=== PATIENT | female | born 1945 | race Caucasian/White ===

== ENCOUNTER 2023-05-10 09:51 | Outpatient (OUT) | payer OTHER, MEDICARE, SELFPAY ==
--- NOTE | 2023-05-10 09:52 | MM_ITS ---
Patient: ROMULO PETE Exam Date: 05/10/2023 : 1945 Gender:F Ordering : MRS. ERICK RAGLAND Admission #: [id number] Family : DR. TITUS JACKSON M.D. Order #: [id number] CLICK HERE TO VIEW EXAM RADIOLOGY REPORT PROCEDURE: MM TOMOSYNTHESIS SCREENING BI COMPARISON: MG MAMM SCREEN 3D LISA CAD, 02/23/2022. MG MAMM SCREEN 3D LISA CAD, 11/04/2020. MG MAMM SCREEN LISA W CAD, 10/10/2018. MG MAMM LISA SCRN W CAD DIG, 03/12/2014. INDICATIONS: Screening Calculator Name NCI Breast Cancer Risk Assessment Tool 5 Year Breast Cancer Risk 1.60% Lifetime Breast Cancer Risk 3.20% Personal Breast Cancer No Personal Ovarian Cancer No Treatments None Family Cancers Aunt-paternal with breast cancer at age ~70. LOCATION: [facility] BREAST COMPOSITION: Scattered areas fibroglandular density. FINDINGS: DIAGNOSTIC CATEGORY 2--BENIGN FINDING: RIGHT BREAST: No significant suspicious finding. Scattered benign-appearing calcifications are present. No significant change has occurred. LEFT BREAST: No significant suspicious finding. Scattered benign-appearing calcifications are present. No significant change has occurred. RECOMMENDATIONS: ROUTINE MAMMOGRAM AND CLINICAL EVALUATION IN 12 MONTHS. PLEASE NOTE: A NORMAL MAMMOGRAM DOES NOT EXCLUDE THE POSSIBILITY OF BREAST CANCER. A CLINICALLY SUSPICIOUS PALPABLE LUMP SHOULD BE BIOPSIED. Dictated by: Allen Collins M.D. on 05/14/2023 at 13:07 Approved by: Allen Collins M.D. on 05/14/2023 at 13:12
== END 2023-05-10 09:52 | disposition home or self-care (01) ==
LOC: MAMMO 09:51
PROVIDERS: PCP Student in an Organized Health Care Education/Training Program; Visit Provider Physician Assistant
DX: Z12.31 Encounter for screening mammogram for malignant neoplasm of breast (principal); Z80.3 Family history of malignant neoplasm of breast
CPT/HCPCS: 77063; 77067

== ENCOUNTER 2024-01-19 11:24 | Outpatient (OUT) | payer OTHER, MEDICARE, SELFPAY ==
--- OUTSIDE RECORDS SUMMARY | 2024-01-19 11:29 | XMS_ITS | CCD ---
Author Organization [facility] Care Team Providers Care Electroencephalographic Technologist Name Role Phone OLIVAS, WAYNE P Unavailable Unavailable MARILU JACOBSON Unavailable Unavailable OLIVAS, WAYNE P Unavailable Unavailable OLIVAS, WAYNE P Unavailable Unavailable PHYSICIAN, DEFAULT Unavailable Unavailable PHYSICIAN, DEFAULT Unavailable Unavailable Vicky Titus Unavailable João Soto Unavailable AISHA RAGLAND Attending Unavailable AISHA RAGLAND Consulting Unavailable AISHA RAGLAND Admitting Unavailable TITUS HANNAH Primary Care Unavailable AISHA RAGLAND Admitting Unavailable AISHA RAGLAND Attending Unavailable TITUS HANNAH Primary Care Unavailable DR ELIZ HUANG V Consulting Unavailable AISHA RAGLAND Consulting Unavailable ISELA Ragland Primary Care Provider DO João Soto Attending Provider [phone] Lisa Castillo Unavailable ISELA Ralgand Primary Care Provider GERARDO Hdz Emergency Provider Aisha Ragland Primary Care Unavailable João Soto Admitting Unavailable João Soto Attending Unavailable Aisha Ragland Primary Care Unavailable Bhaskar Hdz Admitting Unavailable Bhaskar Hdz Attending Unavailable Zuri Hannah MD Unavailable Zuri Hannah MD Primary Care Provider Aisha RAGLAND Primary Care Physician Kaci Morton Admitting Unavailable Kaci Morton Attending Unavailable Dillon Hurtado Attending Unavailable Aisha RAGLAND Referring Unavailable ISELA Morton Admitting UnavailKaci Welch Attending Unavailable AISHA RAGLAND Attending Unavailable TABITHA MAJANO Attending UnavailTABITHA Castillo Attending Unavailabl e AISHA RAGLAND Attending Unavailable TABITHA MAJANO Attending UnavailZURI Kyle Referring Unavailable AISHA RAGLAND Attending Unavailable AISHA RAGLAND Attending Unavailable Allergies Allergy Classification Reported Allergen(s) Allergy Type Date of Onset Reaction(s) Facility (1 source) Bee; Translations: [BEES] Propensity to adverse reactions (disorder) 6 [facility] Repository (5 sources) tioconazole; Translations: [TIOCONAZOLE] Drug Allergy 6 [facility], Itching, Itching, rash [facility] Repository (15 sources) Bee/Wasp/Ant venom; Translations: [Bee Stings] Propensity to adverse reactions anaphylaxis, Unknown (qualifier value) [facility] (11 sources) Miconazole Drug Allergy rash [facility] Other (20 sources) traMADol; Translations: [tramadol] Drug Allergy 1 Unknown, Unknown (qualifier value) [facility] (1 source) Bee pollen Drug allergy (disorder) 3 [facility] Repository (1 source) Miconazole Drug Allergy 3 [facility] Repository (4 sources) venom-honey bee; Translations: [venom-honey bee] Allergy to substance 1 Fainting [facility] (1 source) traMADol Drug Allergy 3 [facility] Repository (2 sources) bee venom protein (honey bee) Drug allergy (disorder) 3 anaphylaxis [facility] Repository (2 sources) Bee pollen Allergy to substance 3 Unknown [facility] Work Phone: (2 sources) Honey bee venom Allergy to substance 3 Shortness of breath [facility] (5 sources) Miconazole; Translations: [miconazole topical] Drug Allergy 3 Unknown, Unknown (qualifier value) [facility] (3 sources) Latex; Translations: [Latex] Drug allergy Other (qualifier value) [facility] (1 source) Miconazole; Translations: [Miconazole Nitrate] Drug Allergy [facility] Repository Medications Current Medications Medication Drug Class(es) Dates Sig (Normalized) Sig (Original) acetaminophen 325 mg / HYDROcodone bitartrate 5 mg oral tablet (17 sources) Opioid Agonist Start: 07-10-2023 End: 08-23-2023 Hydrocodone-Acetam inophen Active TAB TABLET July 15, 2023 1:00am Start: 06-29-2021 take 1 tablet by giuseppe th every six hours HYDROcodone-Acetaminophen 5-325 MG 1 tab let as needed Orally every 6 hrs for 7 days Jun, Active Start: 06-29-2021 take 1 tablet by giuseppe th every six hours Start: 04-28-2019 End: 05-20-2019 take 1 tablet by mouth every four hours Hydrocodone-Acetaminophen Discontinued 1 - 2 TAB PO Q4H 0 April 28, 2019 May 20, 2019 9:50am alendronic acid 35 mg oral tablet (8 sources) Bisphosphonate Start: 03-27-2023 alendronate (F osamax) 35 MG tablet Indications: Chronic pain disorder Take 1 tablet (35 mg) by mouth every 7 (seven) days. Patient taking 1/2 tablet once per week 12 tablet 11 03/27/2023 Active Start: 06-18-2020 take 1 tablet by giuseppe th once daily alendronate 35 mg oral tablet 35 mg = 1 tab(s), Oral, Daily, Refills(s) 0 Start Date: 06/18/20 Status: Ordered Start: 05-31-2020 End: 07-15-2023 take 17.5 mg by mouth every week Alendronate Discontinued 17.5 MG PO every week May 31, 2020 1:00am July 15, 2023 4:00pm aspirin 81 mg chewable tablet (15 sources) Platelet Aggregation Inhibitor, Nonsteroidal Anti-inflammatory Drug Start: 06-18-2020 aspirin 81 mg Key w Tab 81 mg = 1 tab(s), Chewed, Daily, Refills(s) 0 Start Date: 06/18/20 Status: Ordered Start: 04-28-2019 End: 05-20-2019 take 325 mg by mouth twice daily Aspirin Discontinued 325 MG PO Twice daily 0 April 28, 2019 12:00am May 20, 2019 9:50am take 1 tablet by giuseppe th every twenty-four hours Aspirin 81 81 MG 1 tablet Orally Once a day Active take 1 tablet by giuseppe th once daily Aspirin 81 81 MG 1 tablet Orally Once a day Active take 1 tablet by giuseppe th once daily Aspirin 81 81 MG 1 tablet Orally Once a day Active atenolol 50 mg oral tablet (20 sources) beta-Adrenergic Panchito Start: 06-18-2020 take 1 tablet by mouth once daily atenolol 50 mg Tab 50 mg = 1 tab(s), Oral, Daily, Refills(s) 0 Start Date: 06/18/20 Status: Ordered Start: 04-05-2020 take 25 mg by mouth once daily Atenolol Active 25 MG PO Daily April 05, 2020 12:00am Start: 04-24-2019 End: 05-20-2019 take 25 mg by mouth once daily Atenolol Discontinued 2 5 MG PO Daily April 24, 2019 12:00am May 20, 2019 9:50am atenolol (Tenorm in) 50 MG tablet Take 12.5 mg by mouth in the morning. 0 Active take 0.5 tablet by m out once daily Atenolol 25 MG 1/2 tablet Orally Once a day for 30 day(s) Active benzonatate 200 mg oral capsule (3 sources) Non-narcotic Antitussive Start: 06-18-2020 take 200 mg by mouth three times daily Benzonatate Active 200 MG PO Three times daily July 15, 2023 1:00am Blood Glucose Monitoring Suppl (ONE TOUCH ULTRA 2) w/Device kit (2 sources) Start: 04-26-2022 Blood Glucose Monitoring Suppl (ONE TOUCH ULTRA 2) w/Device kit calcium carbonate 600 mg chewable tablet (5 sources) Start: 06-18-2020 take 1 tablet by mouth once daily calcium carbonate 600 mg oral tablet, chewable 600 mg = 1 tab(s), Chewed, Daily, Refills(s) 0 Start Date: 06/18/20 Status: Ordered End: 08-14-2023 calcium carbonate 1500 (600 Ca) MG tablet 2 (two) times a day with meals. 0 08/14/2023 Discontinued calcium carbonate 1250 mg / cholecalciferol 200 unt oral tablet (7 sources) Vitamin D Start: 04-05-2020 take 1 tablet by mouth twice daily Calcium Carbonate-Vitamin D3 (Oyster Shell Calcium-Vit D3) 500 mg(1,250mg) -200 unit tablet Active 1 TAB PO Twice daily April 05, 2020 6:53pm Start: 04-28-2019 End: 04-05-2020 take 1 tablet by mouth once at mealtime Calcium Carbonate-Vitamin D3 (Oyster Shell Calcium-Vit D3) 500 mg(1,250mg) -200 unit Tablet Discontinued 1 TAB PO 3x/Day with meals 90 May 19, 2019 1:00am April 05, 2020 7:54pm celecoxib 100 mg oral capsule (16 sources) Nonsteroidal Anti-inflammatory Drug Start: 10-17-2023 CeleBREX 100 mg C ap Refills(s) 0 Start Date: 10/17/23 Status: Ordered Start: 10-10-2023 take 1 capsule by mo uth twice daily at mealtime Celecoxib Active 0 .ROUTE .COMPLEX 60 October 10, 2023 10:17am TAKE 1 CAPSULE BY MOUTH TWICE A DAY WITH FOOD Start: 10-08-2023 End: 10-10-2023 take 100 mg by mouth twice daily Celecoxib Discontinue d 100 MG PO Twice daily 60 October 08, 2023 1:00pm October 10, 2023 10:17am Start: 07-15-2023 End: 10-08-2023 Celecoxib Discontinued MG De cember 2022 1:00am October 08, 2023 1:01pm Start: 02-08-2022 take 1 capsule by mo uth every twelve hours CeleBREX 100 MG 1 capsule with food Orally Twice a day for 30 days Jan, Active CeleBREX 100 MG capsule 1 (one) time each day at the same time. 0 Active cephalexin 500 mg oral capsule (1 source) Cephalosporin Antibacterial Start: 10-01-2023 End: 10-08-2023 take 1 capsule by mouth every twelve hours Keflex 500 mg Cap 500 mg = 1 cap(s), Oral, q12hr, X 7 day(s), # 14 cap(s), Refills(s) 0, Pharmacy: [facility]/pharmacy #[id number], 175, cm, 10/01/23 5:36:00 EDT, Height/Length Dosing, 55, kg, 10/01/23 5:36:00 EDT, Weight Dosing Start Date: 10/01/23 Stop Date: 10/08/23 Status: Ordered Elderberry preparation (4 sources) Start: 10-17-2023 elderberry Refill(s) 0 Start Date: 10/17/23 Status: Ordered Elderberry 575 M G/5ML syrup as directed Orally 0 Active Escitalopram (6 sources) Serotonin Reuptake Inhibitor Start: 10-17-2023 escitalopram Refills (s) 0 Start Date: 10/17/23 Status: Ordered Start: 07-15-2023 Escitalopram O xalate Active MG TABLET July 15, 2023 1:00am Start: 07-06-2023 End: 07-05-2024 take 1 tablet by mouth in the morning escitalopram (Lexapro) 20 MG tablet Indications: Reactive depression (CMS/HCC) Take 1 tablet (20 mg) by mouth in the morning. 90 tablet 3 07/06/2023 07/05/2024 Active ferrous gluconate 256 mg oral tablet (1 source) Start: 06-18-2020 take 2 tablets by mouth once daily ferrous gluconate 256 mg (28 mg elemental iron) oral tablet 2, Oral, Daily, # 100 tab(s), Refills(s) 0 Start Date: 06/18/20 Status: Ordered Fish Oils (2 sources) omega-3 (Fish Oi l) 1200 MG capsule 1 capsule 1 (one) time each day at the same time. 0 Active fluticasone propionate 0.05 mg/actuat metered dose nasal spray (1 source) Corticosteroid Start: 06-18-2020 Flonase Allerg y Relief 50 mcg/inh nasal spray = 2 spray(s), Nasal, Daily, Refills(s) 0 Start Date: 06/18/20 Status: Ordered Furosemide (4 sources) Loop Diuretic Start: 10-17-2023 furosemide Refills(s) 0 Start Date: 10/17/23 Status: Ordered Start: 06-25-2023 take 1 tablet by giuseppe th once daily furosemide (Lasix) 20 MG tablet Indications: Essential hypertension (CMS/HCC) , Controlled type 2 diabetes mellitus with diabetic polyneuropathy, without long-term current use of insulin (CMS/HCC) TAKE 1 TABLET BY MOUTH EVERY DAY for 30 90 tablet 3 06/25/2023 Active HYDROcodone (2 sources) Opioid Agonist Start: 10-17-2023 hydrocodone Refills(s) 0 Start Date: 10/17/23 Status: Ordered lidocaine 0.05 mg/mg medicated patch (15 sources) Antiarrhythmic, Amide Local Anesthetic Start: 10-17-2023 End: 12-03-2023 apply 1 dose topically once daily Lidocaine Active 2 PATCH TOPICAL Daily December 03, 2023 11:20am leave on most painful area for up to 12 hrs Start: 09-17-2023 End: 10-17-2023 apply 1 dose topically once daily Lidocaine Discontinued 2 PATCH TOPICAL Daily September 17, 2023 1:00am October 17, 2023 8:04am leave on most painful area for up to 12 hrs Start: 04-06-2021 Lidocaine 5 % 1 patch remove after 12 hours Externally Once a day for 30 days Mar, Not-Taking/PRN Start: 04-06-2021 Lidocaine 5 % 1 patch remove after 12 hours Externally Once a day for 30 days Mar, Active Start: 04-06-2021 lisinopril 20 mg oral tablet (20 sources) Angiotensin Converting Enzyme Inhibitor Start: 06-18-2020 take 0.25 tablet by mouth twice daily lisinopril 20 MG tablet Indications: Essential hypertension (CMS/HCC) TAKE 1/4 TABLET BY MOUTH TWICE DAILY for 90 40 tablet 3 04/12/2023 Active Start: 05-19-2019 take 5 mg by mouth twice daily Lisinopril Active 5 MG PO Twice daily May 19, 2019 1:00am Start: 04-24-2019 End: 05-20-2019 Lisinopril Discontinued 0 .R OUTE .COMPLEX April 24, 2019 12:00am May 20, 2019 9:50am 5 mg AM and 10mg PM take 1 tablet by giuseppe th every twenty-four hours Lisinopril 20 MG 1 tablet Orally Once a day for 30 day(s) Active metFORMIN hydrochloride 500 mg oral tablet (20 sources) Biguanide Start: 06-18-2020 take 0.5 tablet by mouth once daily metformin 500 mg ER Tab 0.5, Oral, Daily, Refills(s) 0 Start Date: 06/18/20 Status: Ordered Start: 04-24-2019 End: 05-20-2019 take 250 mg by mouth once daily Metformin Active 250 M G PO Daily May 19, 2019 1:00am metFORMIN (Gluco phage) 500 MG tablet 1 (one) time each day at the same time. 0 Active phenazopyridine hydrochloride 100 mg oral tablet (1 source) Start: 10-01-2023 End: 10-04-2023 take 1 tablet by mouth three times daily Pyridium 100 mg Tab 100 mg = 1 tab(s), Oral, TID, X 3 day(s), # 9 tab(s), Refills(s) 0, Pharmacy: [facility]/pharmacy #[id number], 175, cm, 10/01/23 5:36:00 EDT, Height/Length Dosing, 55, kg, 10/01/23 5:36:00 EDT, Weight Dosing Start Date: 10/01/23 Stop Date: 10/04/23 Status: Ordered simvastatin 40 mg oral tablet (9 sources) HMG-CoA Reductase Inhibitor Start: 06-18-2020 End: 06-13-2024 take 1 tablet by mouth once daily simvastatin (Zocor) 40 MG tablet Indications: Hypercholesteremia (CMS/HCC) , Essential hypertension (CMS/HCC) Take 1 tablet (40 mg) by mouth 1 (one) time each day at the same time. 90 tablet 3 06/14/2023 06/13/2024 Active Start: 04-05-2020 take 20 mg by mouth once daily at bedtime Simvastatin Active 20 MG PO Daily at bedtime April 05, 2020 12:00am Start: 04-05-2020 take 20 mg by mouth twice harleen y Simvastatin Active 20 MG PO Twice daily April 04, 2020 11:00pm Start: 04-24-2019 End: 05-20-2019 take 20 mg by mouth twice daily Simvastatin Discontinu ed 20 MG PO Twice daily April 24, 2019 12:00am May 20, 2019 9:50am warfarin sodium 4 mg oral tablet (4 sources) Vitamin K Antagonist Start: 06-18-2020 warfarin 4 mg Tab Refills(s) 0 Start Date: 06/18/20 Status: Ordered Start: 05-31-2020 End: 07-15-2023 take 5 mg by mouth once daily Warfarin Discontinued 5 MG PO Daily May 31, 2020 1:00am July 15, 2023 4:00pm Zofran ODT 4 mg Tab-Dis (1 source) Start: 07-22-2021 take 1 tablet by mouth every eight hours Zofran ODT 4 mg Tab-Dis 4 mg = 1 tab(s), Oral, q8hr, # 12 tab(s), Refills(s) 0, Pharmacy: [id number], 144, cm, 07/22/21 18:14:00 EST, Height/Length Dosing, 55.9, kg, 07/22/21 18:14:00 EST, Weight Dosing Start Date: 07/22/21 Status: Ordered Completed/Discontinued Medications Medication Drug Class(es) Dates Sig (Normalized) Sig (Original) acetaminophen 325 mg oral tablet (6 sources) Start: 05-19-2019 End: 07-15-2023 take 325 mg by mouth every four hours Acetaminophen Discontinued 325 MG PO Q4H 100 May 19, 2019 1:00am July 15, 2023 4:00pm Start: 05-19-2019 End: 04-05-2020 take 650 mg by mouth every four hours Acetaminophen Discontinued 650 MG PO Q4H 0 May 19, 2019 1:00am April 05, 2020 7:50pm ascorbic acid 500 mg oral tablet (3 sources) Vitamin C Start: 04-28-2019 End: 05-20-2019 take 1 tablet by mouth once daily Ascorbic Acid (Vitamin C) (Vitamin C) 500 mg Tablet Discontinued 500 MG PO Daily 0 April 28, 2019 12:00am May 20, 2019 9:50am Calcium Carbonate-Vitamin D3 (Oyster Shell Calcium-Vit D3) 500 mg(1,250mg) -200 unit tablet (2 sources) Start: 04-05-2020 End: 07-15-2023 take 1 tablet by mouth twice daily Calcium Carbonate-Vitamin D3 (Oyster Shell Calcium-Vit D3) 500 mg(1,250mg) -200 unit tablet Discontinued 1 TAB PO Twice daily April 05, 2020 7:53pm July 15, 2023 4:00pm Start: 04-05-2020 End: 07-15-2023 take 1 tablet by mouth twice daily Calcium Carbonate-Vitamin D3 (Oyster Shell Calcium-Vit D3) 500 mg(1,250mg) -200 unit tablet Discontinued 1 TAB PO Twice daily April 05, 2020 6:53pm July 15, 2023 3:00pm castor oil 0.788 mg/mg / iranian balsam 0.087 mg/mg topical ointment (3 sources) Standardized Chemical Allergen Start: 05-19-2019 End: 04-05-2020 Balsam [place] Oil (Venelex) Ointment Discontinued 1 APPLIC TOPICAL Twice daily 0 May 19, 2019 1:00am April 05, 2020 7:50pm cholecalciferol 0.025 mg oral tablet (2 sources) Vitamin D End: 08-14-2023 cholecalciferol (Vitamin D3) 25 MCG (1000 UT) tablet 1 (one) time each day at the same time. 0 08/14/2023 Discontinued diclofenac sodium 0.01 mg/mg topical gel (9 sources) Nonsteroidal Anti-inflammatory Drug Start: 04-05-2020 End: 07-15-2023 apply 2 g topically once daily Diclofenac Sodium Discontinued 2 GM TOPICAL Daily April 05, 2020 7:53pm July 15, 2023 4:00pm Start: 05-19-2019 End: 04-05-2020 apply 2 g topically three times daily Diclofenac Sodium Discontinued 2 GM TOPICAL Three times daily May 19, 2019 1:00am April 05, 2020 7:54pm docusate sodium 100 mg oral capsule (9 sources) Start: 04-05-2020 End: 07-15-2023 take 100 mg by mouth once daily Docusate Sodium Discontinued 100 MG PO Daily April 05, 2020 7:53pm July 15, 2023 4:00pm Start: 04-28-2019 End: 04-05-2020 take 100 mg by mouth twice daily Docusate Sodium Discontinued 100 MG PO Twice daily May 19, 2019 1:00am April 05, 2020 7:54pm ezetimibe 10 mg oral tablet (18 sources) Dietary Cholesterol Absorption Inhibitor Start: 04-05-2020 End: 07-15-2023 take 10 mg by mouth once daily Ezetimibe Discontinued 10 MG PO Daily April 05, 2020 12:00am July 15, 2023 4:00pm Start: 04-24-2019 End: 05-20-2019 take 1 tablet by mouth at bedtime Ezetimibe (Zetia) 10 mg Tablet Discontinued 10 MG PO Bedtime April 24, 2019 12:00am May 20, 2019 9:50am famotidine 20 mg oral tablet (20 sources) Histamine-2 Receptor Antagonist Start: 04-24-2019 End: 04-16-2024 take 20 mg by mouth once daily Famotidine Discontinued 20 MG PO Daily May 19, 2019 1:00am May 31, 2020 9:20am ferrous sulfate 324 mg delayed release oral tablet (9 sources) Start: 04-05-2020 End: 05-31-2020 take 324 mg by mouth once Ferrous Sulfate Discontinued 324 MG PO every Sunday, Sunday, and Sunday April 05, 2020 7:53pm May 31, 2020 9:19am Start: 04-28-2019 End: 04-05-2020 take 324 mg by mouth twice daily Ferrous Sulfate Discontinued 324 MG PO Twice daily 60 May 19, 2019 1:00am April 05, 2020 7:54pm lanolin 0.157 mg/mg / menthol 0.0044 mg/mg / petrolatum 0.24 mg/mg / zinc oxide 0.206 mg/mg topical ointment (2 sources) End: 08-14-2023 Menthol-Zinc Oxide (Calmoseptine) 0.44-20.6 % ointment as directed Externally 0 08/14/2023 Discontinued magnesium hydroxide 80 mg/ml oral suspension (3 sources) Start: 04-28-2019 End: 05-20-2019 take 1 mL by mouth once daily Magnesium Hydroxide (Milk Of Magnesia) 400 mg/5 mL Suspension Discontinued 30 ML PO Daily 0 April 28, 2019 12:00am May 20, 2019 9:50am metoprolol tartrate 25 mg oral tablet (3 sources) beta-Adrenergic Panchito Start: 05-19-2019 End: 04-05-2020 take 25 mg by mouth twice daily Metoprolol Tartrate Discontinued 25 MG PO Twice daily May 19, 2019 1:00am April 05, 2020 7:52pm omeprazole 20 mg delayed release oral capsule (3 sources) Proton Pump Inhibitor Start: 05-19-2019 End: 04-05-2020 take 40 mg by mouth once daily Omeprazole Discontinued 40 MG PO Daily May 19, 2019 1:00am April 05, 2020 7:53pm ondansetron 4 mg disintegrating oral tablet (3 sources) Serotonin-3 Receptor Antagonist Start: 05-19-2019 End: 04-05-2020 take 4 mg by mouth every four hours Ondansetron Discontinued 4 MG PO Every 4 hours May 19, 2019 1:00am April 05, 2020 7:53pm oxyCODONE hydrochloride 5 mg oral tablet (6 sources) Opioid Agonist Start: 05-19-2019 End: 04-05-2020 take 10 mg by mouth every four hours Oxycodone Discontinued 10 MG PO Every 4 hours 0 7 May 19, 2019 April 05, 2020 7:53pm Start: 05-19-2019 End: 04-05-2020 take 5 mg by mouth every four hours Oxycodone Discontinued 5 MG PO Every 4 hours 40 7 May 19, 2019 April 05, 2020 7:53pm polyethylene glycol 3350 24584 mg powder for oral solution (3 sources) Osmotic Laxative Start: 05-19-2019 End: 07-15-2023 Polyethylene Glycol 3350 (Miralax) 17 gram Powder In Packet Discontinued 17 GM PO Daily May 19, 2019 1:00am July 15, 2023 4:00pm rivaroxaban 15 mg oral tablet (6 sources) Factor Xa Inhibitor Start: 05-19-2019 End: 05-31-2020 take 1 tablet by mouth twice daily at mealtime Rivaroxaban (Xarelto) 15 mg tablet Discontinued 15 MG PO Twice daily 42 April 05, 2020 12:00am May 31, 2020 9:19am must administer with a meal/food sennosides, snf 8.6 mg oral tablet (3 sources) Start: 05-19-2019 End: 04-05-2020 take 2 tablets by mouth once daily Sennosides (Senna Lax) 8.6 mg Tablet Discontinued 2 TAB PO DAILY@12 60 May 19, 2019 1:00am April 05, 2020 7:54pm triamcinolone acetonide 40 mg/ml injectable suspension (20 sources) Corticosteroid Start: 10-05-2021 Kenalog-40 Jun, 40 mg Start: 10-05-2021 Kenalog -40 mg Sep, 40 mg Start: 06-29-2021 Kenalog -40 mg Jun, 40 mg Start: 04-06-2021 Kenalog -40 mg Mar, 40 mg Start: 10-26-2020 Kenalog -40 mg Oct, 40 mg Start: 07-20-2020 Kenalog -40 mg Jul, 40 mg Start: 04-21-2020 Kenalog -40 mg Apr, 40 mg Start: 02-11-2020 Kenalog -40 mg Jan, 40 mg Start: 12-03-2019 Kenalog -40 mg November, 40 mg Vitamin D 1000 intl units Tab (1 source) Start: 06-18-2020 take 1 tablet by mouth once daily Vitamin D 1000 intl units Tab 1,000 International_Unit = 1 tab(s), Oral, Daily, # 30 tab(s), Refills(s) 0 Start Date: 06/18/20 Status: Ordered Problems Active Problems Problem Classification Problem Date Documented Da te Episodic/Chronic Administrative/social admission (3 sources) Other reduced mobility; Translations: [Impaired mobility and activities of daily living] 04-29-2019 Episodic Chronic ulcer of skin (2 sources) Non-pressure chronic ulcer of other part of right foot limited to breakdown of skin; Translations: [Ulcer of other part of foot] Onset: 12-07-2022 12-07-2022 Chronic Deficiency and other anemia (3 sources) Anemia; Translations: [Anemia, unspecified] 04-29-2019 Episodic Diabetes mellitus with complications (8 sources) Type 2 diabetes mellitus with diabetic polyneuropathy; Translations: [Type 2 diabetes mellitus] Onset: 03-28-2021 Chronic Diabetes mellitus without complication (6 sources) Diabetes mellitus; Translations: [Type 2 diabetes mellitus without complications] 04-29-2019 Chronic Diseases of white blood cells (1 source) Lymphocytopenia; Translations: [Lymphocytopenia] Onset: 10-24-2017 Chronic Disorders of lipid metabolism (9 sources) Pure hypercholesterolemia, unspecified; Translations: [Hyperlipidemia] Onset: 04-02-2021 04-29-2019 Chronic Esophageal disorders (6 sources) Gastro-esophageal reflux disease without esophagitis; Translations: [Gastroesophageal reflux disease] Onset: 04-02-2021 04-29-2019 Chronic Essential hypertension (9 sources) Essential (primary) hypertension; Translations: [Hypertensive disorder] Onset: 04-02-2021 04-29-2019 Chronic Fracture of neck of femur (hip) (19 sources) Fracture of unspecified part of neck of left femur, subsequent encounter for closed fracture with routine healing; Translations: [Subcapital fracture of neck of femur] Onset: 04-06-2021 Resolved: 06-29-2021 Episodic Mood disorders (2 sources) Reactive depression (situational); Translations: [Major depressive disorder, single episode, unspecified] Onset: 12-07-2022 12-07-2022 Chronic Nausea and vomiting (3 sources) Nausea and vomiting; Translations: [Nausea with vomiting, unspecified] 04-29-2019 Episodic Open wounds of head; neck; and trunk (3 sources) Tear of skin; Translations: [Skin tear] 07-23-2020 Episodic Osteoarthritis (20 sources) Osteoarthritis of right knee joint; Translations: [Unilateral primary osteoarthritis, right knee] Onset: 04-06-2021 Resolved: 10-05-2021 Chronic Osteoporosis (2 sources) Osteoporosis; Translations: [Age-related osteoporosis without current pathological fracture] Onset: 12-07-2022 12-07-2022 Chronic Other circulatory disease (2 sources) Raynaud's disease; Translations: [Raynaud's syndrome without gangrene] Onset: 12-07-2022 12-07-2022 Chronic Other connective tissue disease (3 sources) Pain in left lower limb; Translations: [Pain in left leg] 05-31-2020 Episodic Other connective tissue disease (3 sources) Musculoskeletal pain; Translations: [Myalgia, other site] 07-23-2020 Episodic Other diseases of bladder and urethra (2 sources) Overactive bladder; Translations: [Overactive bladder] Onset: 12-07-2022 12-07-2022 Chronic Other gastrointestinal disorders (3 sources) Constipation; Translations: [Constipation, unspecified] 04-29-2019 Episodic Other injuries and conditions due to external causes (3 sources) History of fall; Translations: [History of falling] 04-29-2019 Episodic Other nervous system disorders (4 sources) Chronic pain syndrome; Translations: [Chronic pain syndrome] Onset: 12-07-2022 08-14-2023 Chronic Other nervous system disorders (3 sources) Postoperative pain ; Translations: [Other acute postprocedural pain] 04-29-2019 Episodic Other non-traumatic joint disorders (7 sources) Pain in left knee; Translations: [Pain in left knee M25.562] Onset: 04-06-2021 Resolved: 10-05-2021 Episodic Other non-traumatic joint disorders (7 sources) Pain in right knee; Translations: [Acute pain of right knee M25.561] Onset: 04-06-2021 Resolved: 10-05-2021 Episodic Other non-traumatic joint disorders (1 source) Shoulder pain; Translations: [Pain in right shoulder] 05-05-2019 Episodic Other non-traumatic joint disorders (3 sources) Hip pain; Translations: [Pain in left hip] 04-25-2019 Episodic Other non-traumatic joint disorders (5 sources) Pain in right shoulder; Translations: [Right shoulder pain] Episodic Other screening for suspected conditions (not mental disorders or infectious disease) (10 sources) Encounter for screening mammogram for malignant neoplasm of breast; Translations: [Protein level - finding] Onset: 02-23-2022 Episodic Other upper respiratory infections (2 sources) Acute upper respiratory infection; Translations: [Acute upper respiratory infection, unspecified] 07-15-2023 Episodic Pathological fracture (3 sources) Pathological fracture of femur due to osteoporosis; Translations: [Age-related osteoporosis with current pathological fracture, left femur, initial encounter for fracture] 04-25-2019 Episodic Phlebitis; thrombophlebitis and thromboembolism (6 sources) Acute deep vein thrombosis of lower limb; Translations: [Acute embolism and thrombosis of unspecified deep veins of unspecified lower extremity] 04-05-2020 Episodic Residual codes; unclassified (1 source) Family history of malignant neoplasm of breast; Translations: [FAMILY HX MALIG NEOPLASM OF BREAST] Onset: 02-24-2022 Episodic Residual codes; unclassified (3 sources) Patient encounter status; Translations: [Encounter for prophylactic measures, unspecified] 04-29-2019 Episodic Unclassified (1 source) Unknown / UNK(Unknown) Onset: 11-07-2017 Unclassified (1 source) Cough, unspecified; Translations: [Cough, unspecified] Onset: 07-15-2023 Unclassified (1 source) Pain in right shoulder; Translations: [Pain in right shoulder] Onset: 09-13-2022 Urinary tract infections (1 source) Urinary tract infectious disease; Translations: [Urinary tract infection, site not specified] Onset: 10-01-2023 Episodic Past or Other Problems Problem Classification Problem Date Documented Date Episodic/Chronic Mood disorders (2 sources) Mood disorders Onset: 03-27-2023 03-27-2023 Mycoses (2 sources) Onychomycosis; Translations: [Tinea unguium] Onset: 12-07-2022 12-07-2022 Episodic Other acquired deformities (2 sources) Leg length inequality; Translations: [Unequal limb length (acquired), unspecified site] Onset: 12-07-2022 12-07-2022 Episodic Other skin disorders (2 sources) Callosity; Translations: [Corns and callosities] Onset: 12-07-2022 12-07-2022 Episodic Residual codes; unclassified (2 sources) Other specified postprocedural states; Translations: [Other specified postprocedural states Z98.890] Onset: 04-06-2021 Resolved: 06-29-2021 Episodic Unclassified (1 source) Lumbar pain M54.50 Onset: 06-29-2021 Resolved: 06-29-2021 Results Test Name Value Interpretation Reference Range Facility Laboratory Outside Office Co pyon 10-24-2023 Laboratory Outside Office Copy [id number]#1.00TIF F [facility] In office Testingon 10-18-19 24 In office Testing [id number]#1.00T IFF [facility] In office Testing [id number]#1.00TI FF [facility] DESIGN INSERTER Drug Screen-LCon 024 Test Name Toxassure 23 Invalid Interpretation Code [facility] Comment on above: Result Comment: ente red correct information Performed By: #### 1 [id number] ####[facility] [address] [place] [address] Physician Orderon 10-18-2023 Physician Order [id number]#1.00T IFF [facility] Physician Order [id number]#1.00TI FF [facility] Consent for Surgery/Procedur e Officeon 10-17-2023 Consent for Surgery/Procedure Office [id number]#1.00TI FF [facility] Consent for Treatmenton Consent for Treatment [id number]#1.00TI FF [facility] Consultation Noteon 10-17-19 Consultation Note Patient: NATA PETE Age: 78 years Sex: Female : 1945 Associated Diagnoses: None Author: Kaci Morton PA-C Basic Information Accompanied by: Family member. Source of history: Self, Family member, Medical record. Referral source: OBIE WEISS, Aisha Aparicio History limitation: None. Chief Complaint 10/17/2023 10:18 EDT Right shoulder & right knee pain History of Present Illness Patient is a 78-year-old female. She has a past medical history significant for bilateral knee pain, bilateral knee arthritis, right shoulder pain and right shoulder arthritis. Patient is here today as referred by her PCP. She states that they have been giving her Dewey 5/325 twice daily as needed pain that she uses as sparingly as possible. Per patient's understanding they were still going to continue to give this medication to her. She also has been seeing Ortho?Dr. Anguiano. He has been doing injections that worked well for her. She had these last done in September. She states that the right knee was not done as there was question of her having right knee surgery/replacement but she has some other medical conditions she wanted to get taking care of first. She is going to having her teeth pulled. She states that the surgery may be delayed and she may be getting an injection but she plans to do this with them as she has always had them with them and they go well for her. She has the right shoulder pain and right knee greater than left knee pain that she rates a 6/10 today. Review of Systems Constitutional: No fever, No chills. Eye: No recent visual problem. Ear/Nose/Mouth/Throat: No decreased hearing. Respiratory: No shortness of breath, No cough. Cardiovascular: No chest pain. Gastrointestinal: No nausea, No vomiting. Genitourinary: No dysuria, No hematuria. Hematology/Lymphatics: No bruising tendency, No bleeding tendency. Musculoskeletal: Joint pain, Decreased range of motion, No back pain. Integumentary: No rash, No pruritus. Neurologic: Alert and oriented X4, Numbness, No tingling. Psychiatric: No anxiety, No depression. Health Status Allergies: Allergic Reactions (Selected) Severity Not Documented Bee Stings- Unknown. Latex- Other. Miconazole Nitrate- Unknown. TraMADol- Unknown. Current medications: No qualifying data available Problem list: All Problems Resolved: Hypertension / SNOMED CT 99278687 Resolved: Osteoarthritis / SNOMED CT 5222314705 Resolved: High cholesterol / SNOMED CT 4686776158 Resolved: Diabetes mellitus / SNOMED CT 585710759 Histories Past Medical History: Resolved Hypertension (40911668): Resolved. Osteoarthritis (5992243731): Resolved. High cholesterol (4007811304): Resolved. Diabetes mellitus (417051123): Resolved. Family History: Hypertension Father Brother Sister Heart disease Father Diabetes mellitus type 2 Mother Brother Stroke Mother CAD (coronary artery disease) Father Procedure history: Appendectomy (SNOMED CT 623462618). Cholecystectomy (SNOMED CT 27604741). Tonsillectomy (SNOMED CT 659972652). Repair of right hip joint (SNOMED CT 143233207529470). Osteoporotic fracture of left hip (SNOMED CT 464450888026439). Social History Social & Psychosocial Habits Alcohol 10/17/2023 Risk Assessment: Denies Alcohol Use Substance Abuse 10/17/2023 Risk Assessment: Denies Substance Abuse Tobacco 10/17/2023 Tobacco Use: Never (less than 100 in l 10/17/2023 Risk Assessment: Denies Tobacco Use . Physical Examination Vital Signs (last 24 hrs) Last Charted Heart Rate Peripheral 66 bpm (OCT 16 10:18) SBP 112 mmHg (OCT 16 10:18) DBP 64 mmHg (OCT 16 10:18) Weight 59 kg (OCT 16 10:18) BMI 27.68 (OCT 16 10:18) General: Alert and oriented, No acute distress. HENT: Normocephalic, Normal hearing. Respiratory: Respirations are non-labored. Cardiovascular: No edema. Musculoskeletal Normal range of motion. Normal strength. Slight pain with movement of the right shoulder and the right knee but fairly normal range of motion. Neurologic: Alert, Oriented. Cognition and Speech: Oriented, Speech clear and coherent. Psychiatric: Cooperative, Appropriate mood & affect. Integumentary: Warm, Dry, [place]. Review / Management Results review: No qualifying data available . Bilateral knee x-ray. 10/05/2021. Bilateral moderate joint space narrowing. Tricompartmental marginal spurring is seen. Trace amounts of fluid. Right shoulder x-ray. 09/13/2022. Degenerative changes involving the right shoulder. Severe in the glenohumeral joint. Mild in the right AC joint. Impression and Plan Patient is a 78-year-old female with a past medical history significant for bilateral knee pain, bilateral knee arthritis, right shoulder pain and right shoulder arthritis. She has been seeing Ortho and having injections to her knees with improvement. She did not have the right knee done (more content not included)... [facility] Comment on above: Result Comment: Elec tronically Signed By: Selene WEISS, Kaci\.br\Date and Time Signed: 10/17/23 11:44 EDT HIPAA Forms Officeon 024 HIPAA Forms Office [id number]#1.00TI FF [facility] Legal Correspondence Officeo n 10-17-2023 Legal Correspondence Office [id number]#1.00TI FF [facility] Legal Correspondence Office [id number]#1.00TI FF [facility] Office/Clinic Note-Physician on 10-17-2023 Office/Clinic Note-Physician [id number]#1.00TI FF [facility] Patient Correspondenceon Patient Correspondence [id number]#1.00TI FF [facility] Patient Correspondence [id number]#1.00TI FF [facility] Patient Correspondence [id number]#1.00TI FF [facility] Patient Correspondence [id number]#1.00TI FF [facility] Patient Correspondence [id number]#1.00TI FF [facility] Patient History Officeon Patient History Office [id number]#1.00TI FF [facility] Radiology Outside Office Marketing Manager yon 10-17-2023 Radiology Outside Office Copy [id number]#1.00TI FF [facility] Reference Laboratory Testing Ordered By: Carlie Ernst on 10-17-2023 Test Name Compliance drug Invalid Interpretation Code [facility] SendOutsSS C Urineon 10-03-2023 Bacteria identified Cx Nom (U) Microbiology PROCEDURE: Urine Culture [R1] SOURCE: U CleanCatch BODY SITE: COLLECTED DATE/TIME: 10/01/2023 05:37 EDT RECEIVED DATE/TIME: 10/01/2023 10:13 EDT START DATE/TIME: 10/01/2023 10:13 EDT FREE TEXT SOURCE: Dillon Hurtado DO, DO, Noah S. FINAL REPORTS Final Report [] Verified Date/Time: 10/03/2023 10:12 EDT 70,000 cfu/ml Escherichia coli SUSCEPTIBILITY RESULTS ___ LEGEND: S=Susceptible, N/R=Not Reported, Blank=Data not available, or drug not advisable or tested, I=Intermediate, ESBL=Extended spectrum beta-lactamase, R=Resistant, TFG=Thymidine-dependent strain, BRY=Beta-lactamase positive, MI=mcg/m;(mg/L), S*=Predicted susceptible interp, R*=Predicted resistant interp EC Antibiotic MI Dilutn MI Interp Amikacin <=16 S Ampicillin <=8 S Ampicillin/ <=8/4 S Sulbactam Aztreonam <=4 S Cefazolin <=2 S Cefepime <=2 S Cefoxitin <=8 S Ceftazidime <=1 S Ceftazidime/ <=8 S Avibactam Ceftriaxone <=1 S Ciprofloxacin <=1 S Ertapenem <=0.5 S Gentamicin <=4 S Levofloxacin <=2 S Meropenem <=1 S Nitrofurantoin <=32 S Piperacillin/ <=16 S Tazobactam Tetracycline <=4 S Tigecycline <=2 S Tobramycin <=4 S Trimethoprim/ <=2/38 S Sulfa Performing Locations R1: This test was performed at: [facility], [address] [place] [address], [id number]- , , [facility] Comment on above: Performed By: #### 1 [id number] ####[facility] [address] [place] [id number] Consent for Treatmenton 09-13 Consent for Treatment [id number]#1.00TIF F [facility] Discharge Instructionson Discharge Instructions [id number]#1.00TIF F [facility] ED Clinical Summaryon 2023 ED Clinical Summary (Inserted Image. Angelique ble to display) [address] [address] ED Clinical Summary Person Information Name: NATA PETE [facility] Age: 78 Years : 1945 Sex: Female Language: Italian PCP: Aisha RAGLAND PA-C Marital Status: Phone: [phone] Visit Id: Visit Reason: Urinary frequency; POSS UTI Speciality: Acuity: 3 Enc Type: Emergency Med Service: Emergency Arrival: 10/01/2023 05:14:21 Discharge: 10/01/2023 06:37:57 LOS: 000 01:23 Checkin: 10/01/2023 05:14:21 Checkout: 10/01/2023 06:37:57 Dispo Type: Home (Routine DC) EVENTS: Event Name Event Status Request Date/Time Start Date/Time Complete Date/Time Arrive Complete 10/01/2023 05:14:21 10/01/2023 05:14:21 10/01/2023 05:14:21 Document Home Meds Request 10/01/2023 05:14:21 Triage Complete 10/01/2023 05:14:21 10/01/2023 05:36:31 10/01/2023 05:36:31 Dr Exam Complete 10/01/2023 05:17:17 10/01/2023 05:17:17 10/01/2023 05:17:17 Registration Complete 10/01/2023 05:17:17 10/01/2023 05:23:31 10/01/2023 05:23:31 Pending Labs Complete 10/01/2023 05:17:39 10/01/2023 06:21:07 Lab Complete 10/01/2023 05:17:39 10/01/2023 06:21:07 Urine Collect Complete 10/01/2023 05:17:39 10/01/2023 06:21:07 Reg Complete Request 10/01/2023 05:23:31 Reg Bed Request Complete 10/01/2023 05:23:31 10/01/2023 05:23:31 10/01/2023 05:23:31 Bed Assign Complete 10/01/2023 05:33:11 10/01/2023 05:33:11 10/01/2023 05:33:11 RN Exam Complete 10/01/2023 05:33:11 10/01/2023 05:39:53 10/01/2023 05:39:53 Pending Labs Collected 10/01/2023 05:54:55 10/01/2023 05:54:55 Lab Collected 10/01/2023 05:54:55 10/01/2023 05:54:55 Meds Admin Complete 10/01/2023 06:24:57 10/01/2023 06:32:37 Discharge Complete 10/01/2023 06:25:53 10/01/2023 06:38:15 10/01/2023 06:38:15 Transfer Complete 10/01/2023 06:38:15 10/01/2023 06:38:15 10/01/2023 06:38:15 ADDRESS: [address] [facility] [id number] PHYS DOC NOTES: MEDICAL INFORMATION: Prescriptions Given: New Medications [id number], [address], [place] [id number], [phone] cephalexin (Keflex 500 mg Cap) 1 Capsules By Mouth every 12 hours for 7 Days. Refills: 0. phenazopyridine (Pyridium 100 mg Tab) 1 Tablets By Mouth 3 times a day for 3 Days. Refills: 0. Medications to Continue with No Changes Other Medications alendronate (alendronate 35 mg oral tablet) 1 Tablets By Mouth every day. aspirin (aspirin 81 mg Chew Tab) 1 Tablets Chewed every day. atenolol (atenolol 50 mg Tab) 1 Tablets By Mouth every day. benzonatate (benzonatate 200 mg oral capsule) 1 Capsules By Mouth 3 times a day. calcium carbonate (calcium carbonate 600 mg oral tablet, chewable) 1 Tablets Chewed every day. cholecalciferol (Vitamin D 1000 intl units Tab) 1 Tablets By Mouth every day. ezetimibe (ezetimibe 10 mg Tab) 1 Tablets By Mouth every day. famotidine (famotidine 20 mg Tab) 0.5-1 By Mouth every day. ferrous gluconate (ferrous gluconate 256 mg (28 mg elemental iron) oral tablet) 2 By Mouth every day. fluticasone nasal (Flonase Allergy Relief 50 mcg/inh nasal spray) 2 Sprays Nasal Inhalation every day. lisinopril (lisinopril 20 mg Tab) .25 By Mouth 2 times a day. metformin (metformin 500 mg ER Tab) 0.5 By Mouth every day. ondansetron (Zofran ODT 4 mg Tab-Dis) 1 Tablets By Mouth every 8 hours. Refills: 0. simvastatin (simvastatin 40 mg Tab) 1 Tablets By Mouth once a day (at bedtime). warfarin (warfarin 4 mg Tab) PATIENT EDUCATION INFORMATION: Instructions: Urinary Tract Infection, Adult Follow up: With: Address: When: Aisha RAGLAND [address] [place] [address] [employer] (1) In 3 days DIAGNOSIS: Acute UTI [facility] ED Note-Physicianon 10-01-19 ED Note-Physician Basic Information Time Seen: Bryant Dillon Angel Luis 10/01/2023 05:17 Chief Complaint complains of urinary freq tonight. abd cramping. nausea and vomiting. History of Present Illness HPI: Patient is a 78-year-old female with past ministry of diabetes, hyperlipidemia, hypertension who presents the ED for urinary frequency as well as blood-tinged urine and suprapubic discomfort that started last night. She states that when she is getting from bed she noticed that she had to keep getting up and was urinating very frequently. She states that this morning she had some suprapubic discomfort especially before she urinated. She denies any fever or chills. She denies any nausea or vomiting. She denies any change in bowel movements. ROS: Pertinent review of systems conducted and is negative except as noted above. Physical exam: General: nontoxic appearing and in no distress Neuro: awake and alert Neck: supple, trachea midline Card: Heart regular rate and rhythm no murmur Resp: Lungs clear to auscultation no wheeze or rhonchi Abd: Soft and nondistended. Mild suprapubic tenderness without rebound or guarding. Physical Exam Vitals & Measurements T: 36.5 ?C(Oral) HR: 74(Peripheral) RR: 16 BP: 139/75 SpO2: 99% HT: 175 cm WT: 55 kg BMI: 17.96 Medical Decision Making MEDICAL DECISION MAKING Number and Complexity of Problems Differential Diagnosis: [] MDM Data External documents reviewed: N/A My EKG interpretation: Noted in chart if applicable My CT interpretation: N/A My X-ray interpretation: Noted in chart if applicable My Ultrasound interpretation: N/A Decision rules/scores evaluated: N/A Discussed with: N/A Treatment and Disposition ED Course: Patient is well-appearing in no distress. She is afebrile here in the ED. She is having symptoms of suprapubic discomfort and urinary frequency concerning for possible UTI. Will send a urine sample for this. Urinalysis is consistent with acute urinary tract infection. Will start on a course of oral Keflex given the first dose here in the ED. Will give her prescription for both Keflex as well as a short course of Pyridium. I discussed the diagnosis with the patient at bedside. We discussed the need for oral hydration. We discussed need for follow-up with a primary care physician on outpatient basis. Discussed return precautions. Patient states understanding agreement this plan was discharged stable condition. Shared decision making: As above Code status: N/A Assessment/Plan Acute UTI (N39.0: Urinary tract infection, site not specified) Orders: cephalexin, 500 mg = 1 cap(s), Oral, q12hr, X 7 day(s), # 14 cap(s), Refills(s) 0, Pharmacy: [id number], 175, cm, 10/01/23 5:36:00 EDT, Height/Length Dosing, 55, kg, 10/01/23 5:36:00 EDT, Weight Dosing cephalexin, 500 mg = 1 cap(s), Cap, Oral, Once, Stop date 10/01/23 6:24:00 EDT, STAT, Start date 10/01/23 6:24:00 EDT, 10/01/23 6:24:00 EDT phenazopyridine, 100 mg = 1 tab(s), Oral, TID, X 3 day(s), # 9 tab(s), Refills(s) 0, Pharmacy: [id number], 175, cm, 10/01/23 5:36:00 EDT, Height/Length Dosing, 55, kg, 10/01/23 5:36:00 EDT, Weight Dosing UA With Cult Reflex Urine Culture Disposition Plan Discharge Prescription List Prescriptions Keflex 500 mg Cap, 500 mg= 1 cap(s), Oral, q12hr Pyridium 100 mg Tab, 100 mg= 1 tab(s), Oral, TID Follow-up With When Contact Information Aisha RAGLAND In [address] [place], [place] [address] (1) Additional Instructions: Patient Education Urinary Tract Infection, Adult Problem List/Past Medical History Ongoing No qualifying data Historical Diabetes mellitus High cholesterol Hypertension Osteoarthritis Procedure/Surgical History Appendectomy, Cholecystectomy, Osteoporotic fracture of left hip, Repair of right hip joint, Tonsillectomy. Medications Inpatient No active inpatient medications Home alendronate 35 mg oral tablet, 35 mg= 1 tab(s), Oral, Daily aspirin 81 mg Chew Tab, 81 mg= 1 tab(s), Chewed, Daily atenolol 50 mg Tab, 50 mg= 1 tab(s), Oral, Daily benzonatate 200 mg oral capsule, 200 mg= 1 cap(s), Oral, TID calcium carbonate 600 mg oral tablet, chewable, 600 mg= 1 tab(s), Chewed, Daily ezetimibe 10 mg Tab, 10 mg= 1 tab(s), Oral, Daily famotidine 20 mg Tab, 0.5-1, Oral, Daily ferrous gluconate 256 mg (28 mg elemental iron) oral tablet, 2, Oral, Daily Flonase Allergy Relief 50 mcg/inh nasal spray, 2 spray(s), Nasal, Daily lisinopril 20 mg Tab, .25, Oral, BID metformin 500 mg ER Tab, 0.5, Oral, Daily simvastatin 40 mg Tab, 40 mg= 1 tab(s), Oral, Once a day (at bedtime) Vitamin D 1000 intl units Tab, 1000 International_Unit= 1 tab(s), Oral, Daily warfarin 4 mg Tab Zofran ODT 4 mg Tab-Dis, 4 mg= 1 tab(s), Oral, q8hr Allergies Bee Stings (Unknown) Miconazole Nitrate (Unknown) traMADol (Unknown) Social History Alcohol - Denies Alcohol Use, 07/22/2021 Substance Abuse - Denies Substance Abuse (more content not included)... [facility] Comment on above: Result Comment: Elec tronically Signed By: Dillon Hurtado DO\.br\Date and Time Signed: 10/01/23 06:29 EDT ED Patient Education Noteon 10-01-2023 ED Patient Education Note Obstetrics and Gynecology Urinary Tract Infection, Adult A urinary tract infection (UTI) is an infection of any part of the urinary tract. The urinary tract includes the kidneys, ureters, bladder, and urethra. These organs make, store, and get rid of urine in the body. An upper UTI affects the ureters and kidneys. A lower UTI affects the bladder and urethra. What are the causes? Most urinary tract infections are caused by bacteria in your genital area around your urethra, where urine leaves your body. These bacteria grow and cause inflammation of your urinary tract. What increases the risk? You are more likely to develop this condition if: ? You have a urinary catheter that stays in place. ? You are not able to control when you urinate or have a bowel movement (incontinence). ? You are female and you: ? Use a spermicide or diaphragm for control. ? Have low estrogen levels. ? Are . ? You have certain genes that increase your risk. ? You are sexually active. ? You take antibiotic medicines. ? You have a condition that causes your flow of urine to slow down, such as: ? An enlarged prostate, if you are male. ? Blockage in your urethra. ? A kidney stone. ? A nerve condition that affects your bladder control (neurogenic bladder). ? Not getting enough to drink, or not urinating often. ? You have certain medical conditions, such as: ? Diabetes. ? A weak disease-fighting system (immunesystem). ? Sickle cell disease. ? Gout. ? Spinal cord injury. What are the signs or symptoms? Symptoms of this condition include: ? Needing to urinate right away (urgency). ? Frequent urination. This may include small amounts of urine each time you urinate. ? Pain or burning with urination. ? Blood in the urine. ? Urine that smells bad or unusual. ? Trouble urinating. ? Cloudy urine. ? Vaginal discharge, if you are female. ? Pain in the abdomen or the lower back. You may also have: ? Vomiting or a decreased appetite. ? Confusion. ? Irritability or tiredness. ? A fever or chills. ? Diarrhea. The first symptom in older adults may be confusion. In some cases, they may not have any symptoms until the infection has worsened. How is this diagnosed? This condition is diagnosed based on your medical history and a physical exam. You may also have other tests, including: ? Urine tests. ? Blood tests. ? Tests for STIs (sexually transmitted infections). If you have had more than one UTI, a cystoscopy or imaging studies may be done to determine the cause of the infections. How is this treated? Treatment for this condition includes: ? Antibiotic medicine. ? Jfkz-guy-srziyea medicines to treat discomfort. ? Drinking enough water to stay hydrated. If you have frequent infections or have other conditions such as a kidney stone, you may need to see a health care provider who specializes in the urinary tract (urologist). In rare cases, urinary tract infections can cause sepsis. Sepsis is a life-threatening condition that occurs when the body responds to an infection. Sepsis is treated in the hospital with IV antibiotics, fluids, and other medicines. Follow these instructions at home: Medicines ? Take nvqx-uaf-jupfcqj and prescription medicines only as told by your health care provider. ? If you were prescribed an antibiotic medicine, take it as told by your health care provider. Do not stop using the antibiotic even if you start to feel better. General instructions ? Make sure you: ? Empty your bladder often and completely. Do not hold urine for long periods of time. ? Empty your bladder after sex. ? Wipe from front to back after urinating or having a bowel movement if you are female. Use each tissue only one time when you wipe. ? Drink enough fluid to keep your urine pale yellow. ? Keep all follow-up visits. This is important. Contact a health care provider if: ? Your symptoms do not get better after 1?2 days. ? Your symptoms go away and then return. Get help right away if: ? You have severe pain in your back or your lower abdomen. ? You have a fever or chills. ? You have nausea or vomiting. Summary ? A urinary tract infection (UTI) is an infection of any part of the urinary tract, which includes the kidneys, ureters, bladder, and urethra. ? Most urinary tract infections are caused by bacteria in your genital area. ? Treatment for this condition often includes antibiotic medicines. ? If you were prescribed an antibiotic medicine, take it as told by your health care provider. Do not stop using the antibiotic even if you start to feel better. ? Keep all follow-up visits. This is important. This information is not intended to replace advice given to you by your health care provider. Make sure you discuss any questions you have with your health care provider. Document Revised: 02/11/2021 Document Revie (more content not included)... [facility] ED Patient Summaryon 024 ED Patient Summary (Inserted Image. Angelique ble to display) [address] [address] Patient Discharge Instructions Person Information Name: NATA PETE Age: 78 Years Arrival Date: 10/01/2023 05:14:21 Discharge Diagnosis: Acute UTI Primary Care Physician: Aisha RAGLAND PA-C Provider Information Primary Provider: Dillon Hurtado DO Advanced Cyber Software Engineer:None The exam and treatment you received in the Emergency Department were for an urgent problem and are not intended as complete care. It is important that you follow up with a doctor, nurse practitioner, or physician?s education administrative assistant for ongoing care. If your symptoms become worse or you do not improve as expected and you are unable to reach your usual health care provider, you should return to the Emergency Department. We are available 24 hours a day. NATA PETE has been given the following list of patient education materials, prescriptions and follow-up instructions: Follow-up Instructions: With: Address: When: [place] [address] Business (1) In 3 days In the event that this physician does not participate in your insurance network, please consult with your insurance company to find a nearby participating provider. Patient Education Materials: Urinary Tract Infection, Adult A MESSAGE TO ALL PATIENTS REGARDING OPIOIDS PRESCRIPTION OPIOIDS: WHAT YOU NEED TO KNOW Prescription opioids can be used to help relieve rfbwrhsp-bc-mgfkge pain and are often prescribed following a surgery or injury, or for certain health conditions. These medications can be an important part of the treatment but also come with serious risks. It is important to work with your healthcare provider to make sure you are getting the safest, most effective care. WHAT ARE THE RISKS AND SIDE EFFECTS OF OPIOID USE? Prescription opioids carry serious risks of addiction and overdose, especially with prolonged use. An opioid overdose, often marked by slowed breathing, can cause sudden . The use of prescription opioids can have a number of side effects as well, even when taken as directed: ? Tolerance?meaning you might need to take more of the medication for the same pain relief ? Physical dependence?meaning you have symptoms of withdrawal when a medication is stopped ? Increased sensitivity to pain ? Constipation ? Nausea, vomiting, and dry mouth ? Sleepiness and dizziness ? Confusion ? Depression ? Low levels of testosterone that can result in lower sex drive, energy, and strength ? Itching and sweating RISKS ARE GREATER WITH: ? History of drug misuse, substance use disorder, or overdose ? Mental health conditions (such as depression or anxiety) ? Sleep apnea ? Older age (65 years and older) ? Avoid alcohol while taking prescription opioids. Also, unless specifically advised by your health care provider, medications to avoid include: ? Benzodiazepines (such as Xanax or Valium) ? Muscle relaxants (such as Soma or Flexeril) ? Hypnotics (such as Ambien or Lunesta) ? Other prescription opioids KNOW YOUR OPTIONS Talk to your health care provider about ways to manage your pain that don?t involve prescription opioids. Some of these options may actually work better and have fewer risks and side effects. Options may include: ? Pain relievers such as acetaminophen, ibuprofen, and naproxen ? Some medication that are also used for depression or seizures ? Physical therapy and exercise ? Cognitive behavioral therapy, a psychological, goal-directed approach, in which patients learn how to modify physical, behavioral, and emotional triggers of pain and stress. IF YOU ARE PRESCRIBED OPIOIDS FOR PAIN: ? Never take opioids in greater amounts or more often than prescribed. ? Follow up with your primary health care provider. o Work together to create a plan on how to manage your pain. o Talk about ways to help manage your pain that don?t involve prescription opioids. o Talk about any and all concerns and side effects. ? Help prevent misuse and abuse o Never sell or share prescription opioids. o Never use another person?s prescription opioids. ? Store prescription opioids in a secure place and out of reach of others (this may include visitors, children, friends, and family). ? Safely dispose of unused prescription opioids: Find your community drug take-back program or your pharmacy mail-back program, or flush them down the toilet, following guidance from the Food and Drug Administration (www.fda.gov/Drugs/Resou rcesForYou). ? Visit www.cdc.gov/drugoverdose to learn about the risks of opioids abuse and overdose. ? If you believe you may be struggling with addiction, tell your health field care coordinator and ask for guidance or call [facility]?S National Helpline at 1-781-320-EMCM. u Source: Department of [facility] (more content not included)... [facility] UA With Cult Reflexon 2023 Bilirubin Ql (U) Negative Normal Negative [facility] Comment on above: Performed By: #### 1 [id number], [id number] ####[facility] [address] [place] [address] Clarity (U) CLOUDY Abnormal Clear [facility] Comment on above: Performed By: #### 1 [id number], [id number] ####[facility] [address] [place] [address] Color (U) RED Abnormal Yellow [facility] Comment on above: Performed By: #### 1 [id number], [id number] ####[facility] [address] [place] [address] Epithelial cells.squamous LM.HPF (Urine sed) [#/Area] 0-2 Normal 0-2 [facility] Comment on above: Performed By: #### 1 [id number], [id number] ####[facility] [address] [place] [address] Glucose Test strip (U) [Mass/Vol] Negative Normal Negative [facility] Comment on above: Performed By: #### 1 [id number], [id number] ####[facility] [address] [place] [address] Hemoglobin Ql (U) 3+ Abnormal Negative [facility] Comment on above: Performed By: #### 1 [id number], [id number] ####[facility] [address] [place] [address] Ketones (U) [Mass/Vol] 1+ Abnormal Negative [facility] Comment on above: Performed By: #### 1 [id number], [id number] ####[facility] [address] [place] [address] [place].plasma/Lithi um.RBC (Bld) [Mass ratio] >75 Abnormal 0-3 [facility] Comment on above: Performed By: #### 1 [id number], [id number] ####[address] [address] Nitrite Ql (U) Positive Abnormal Negative [facility] Comment on above: Performed By: #### 1 [id number], [id number] ####[address] [address] pH (U) 7.0 [pH] Invalid Interpretation Code 5.0-9.0 [facility] Comment on above: Performed By: #### 1 [id number], [id number] ####[address] [address] Protein (U) [Mass/Vol] 2+ Abnormal Negative [facility] Comment on above: Performed By: #### 1 [id number], [id number] ####[address] [address] Specific gravity (U) [Rel density] 1.020 Invalid Interpretation Code 1.005-1.030 [facility] Comment on above: Performed By: #### 1 [id number], [id number] ####[address] [address] Type of Urine collection method Clean Catch [facility] Comment on above: Performed By: #### 1 [id number], [id number] ####[address] [address] Urobilinogen Qn (U) 0.2 {Otilia'U}/dL Normal 0.0-1.0 [facility] Comment on above: Performed By: #### 1 [id number], [id number] ####[address] [address] WBC Auto Ql (U) 2+ Abnormal Negative [facility] Comment on above: Performed By: #### 1 [id number], [id number] ####[address] [place] [address] WBC LM.HPF (Urine sed) [#/Area] /[HPF] Abnormal 0-5 [facility] Comment on above: Performed By: #### 1 [id number], [id number] ####[facility] [address] [place] [address] URINALYSISOrdered By: Mahsa Moses on 10-01-2023 Bilirubin Ql (U) Negative (10/01/23 5:37 AM) Normal Negative [facility] UA Auto SS Clarity (U) Cloudy *ABN* (10/01/23 5:37 AM) Invalid Interpretation Code Clear [facility] UA Auto SS Color (U) Red *ABN* (10/01/23 5:37 AM) Invalid Interpretation Code Yellow [facility] UA Auto SS Epithelial cells.squamous LM.HPF (Urine sed) [#/Area] 0-2 /HPF Normal 0-2/HPF [facility] UA Auto SS Glucose Test strip (U) [Mass/Vol] Negative (10/01/23 5:37 AM) Normal Negative [facility] UA Auto SS Hemoglobin Ql (U) 3+ *ABN* (10/01/23 5:37 AM) Invalid Interpretation Code Negative [facility] UA Auto SS Ketones (U) [Mass/Vol] 1+ *ABN* (10/01/23 5:37 AM) Invalid Interpretation Code Negative [facility] UA Auto SS [place].plasma/Lithi um.RBC (Bld) [Mass ratio] >75 /HPF Invalid Interpretation Code 0-3/HPF [facility] UA Auto SS Nitrite Ql (U) Positive *ABN* (10/01/23 5:37 AM) Invalid Interpretation Code Negative [facility] UA Auto SS pH (U) 7.0 *NA* (10/01/23 5:37 AM) Invalid Interpretation Code 5.0 - 9.0 [facility] UA Auto SS Protein (U) [Mass/Vol] 2+ *ABN* (10/01/23 5:37 AM) Invalid Interpretation Code Negative [facility] UA Auto SS Specific gravity (U) [Rel density] 1.020 *NA* (10/01/23 5:37 AM) Invalid Interpretation Code 1.005 - 1.030 [facility] UA Auto SS UA Spec Desc Clean Catch (10/01/23 5:37 AM) Normal [facility] UA Auto SS Urobilinogen Qn (U) 0.0254625 {Otilia'U}/dL Normal 0.0 - 1.0 EU/dL [facility] UA Auto SS WBC Auto Ql (U) 2+ *ABN* (10/01/23 5:37 AM) Invalid Interpretation Code Negative [facility] UA Auto SS WBC LM.HPF (Urine sed) [#/Area] /[HPF] Invalid Interpretation Code 0-5/HPF [facility] UA Auto SS Outside Records Officeon Outside Records Office [id number]#1.00T IFF [facility] Outside Records Officeon Outside Records Office [id number]#1.00TIFF [facility] Referrals Officeon Referrals Office [id number]#1.00TIFF [facility] Microalbumin/Creatinine rati o panel (U)on 08-16-2023 Albumin DL <= 20 mg/L (U) [Mass/Vol] mg/dL See Note: mg/dL [facility] Comment on above: Reference Range: Reference Range Not established Albumin/Creatinine (U) [Mass ratio] NOTE [facility] Comment on above: NOTE: The urine albu min value is less than 0.2 mg/dL therefore we are unable to calculate excretion and/or creatinine ratio. The ADA defines abnormalities in albumin excretion as follows: Albuminuria Category Result (mcg/mg creatinine) Normal to Mildly increased <30 Moderately increased 30-299 Severely increased > OR = 300 The ADA recommends that at least two of three specimens collected within a 3-6 month period be abnormal before considering a patient to be within a diagnostic category. Creatinine (U) [Mass/Vol] 18 mg/dL Low 20 - 275 mg/dL [facility] Interpretation and review of laboratory results Abnormal [facility] Performing Organizat ion Information Site ID: QPT Name: [facility] Address: [address] [place] [address], [address] [place] [id number] Director: Willie Rodriguez MD [facility] Laboratory - Hematology and Cell countson 08-14-2023 HbA1c (Bld) [Mass fraction] 5.2 % [facility] No Panel Informationon 08-14 Interpretation and review of laboratory results Normal [facility] XR shoulder RT min 2V*on XR shoulder RT min 2V* [address] [address] XRay Report Signed Patient: Nata Pete MR#: [id number] : 1945 Acct:[id number] Age/Sex: 77 / F ADM Date: 09/13/22 Loc: [facility] Room: Type: [facility] Attending Dr: João Soto DO Copies to: João Soto DO Ordering Provider: João Soto DO Date of Service: 09/13/22 XR/XR shoulder RT min 2V*: Acute pain of right shoulder RIGHT SHOULDER - - 3 views CLINICAL HISTORY: Right shoulder pain for years. COMPARISON: None FINDINGS: Severe degenerative changes right humeral joint. Mild degenerative changes right AC joint. No acute bony process. XR/XR shoulder RT min 2V* IMPRESSION: DEGENERATIVE CHANGES INVOLVING THE RIGHT SHOULDER WITHOUT ACUTE BONY PROCESS. Impression dictated by: Dderick Arroyo Jr., D.O.09/13/2022 4:36 PM Dictation Location: [place] [address] Transcribed By: [facility] 09/13/22 1636 Dictated By: Dedrick Arroyo Jr, DO 09/13/22 1635 Signed By: 09/13/22 1636 [facility] XR shoulder RT min 2V* [facility] [employer] Other XR shoulder RT min 2V* [facility] [employer] Other XR shoulder RT min 2V* [address] [facility] [employer] Other XR shoulder RT min 2V* [place] [address] [facility] [employer] Other XR shoulder RT min 2V* XRay Report [employer] [facility] [employer] Other XR shoulder RT min 2V* Signed [employer] Other XR shoulder RT min 2V* Patient: Nata Pete MR#: [id number] [employer] Other XR shoulder RT min 2V* [id number] [employer] Other XR shoulder RT min 2V* : 1945 Acct:[id number] [employer] Other XR shoulder RT min 2V* Age/Sex: 77 / F ADM Date: 09/13/22 [employer] Other XR shoulder RT min 2V* Loc: [facility] Room: Type: [facility] [employer] Other XR shoulder RT min 2V* Attending Dr: João Soto DO [employer] Other XR shoulder RT min 2V* Copies to: João Soto DO [employer] Other XR shoulder RT min 2V* Ordering Provider: João Soto DO [employer] Other XR shoulder RT min 2V* Date of Service: 09/13/22 [employer] Other XR shoulder RT min 2V* XR/XR shoulder RT min 2V*: Acute pain of right shoulder [employer] Other XR shoulder RT min 2V* RIGHT SHOULDER - - 3 views [employer] Other XR shoulder RT min 2V* CLINICAL HISTORY: Right shoulder pain for years. [employer] Other XR shoulder RT min 2V* COMPARISON: None [employer] Other XR shoulder RT min 2V* FINDINGS: [employer] Other XR shoulder RT min 2V* Severe degenerative changes right humeral joint. Mild degenerative changes right AC joint. No acute [employer] Other XR shoulder RT min 2V* bony process. [employer] Other XR shoulder RT min 2V* XR/XR shoulder RT min 2V* [employer] Other XR shoulder RT min 2V* IMPRESSION: [employer] Other XR shoulder RT min 2V* DEGENERATIVE CHANGES INVOLVING THE RIGHT SHOULDER WITHOUT ACUTE BONY PROCESS. [employer] Other XR shoulder RT min 2V* Impression dictated by: Dedrick Arroyo Jr., D.O.09/13/2022 4:36 PM [employer] Other XR shoulder RT min 2V* Dictation Location: [place] [address] [employer] Other XR shoulder RT min 2V* Transcribed By: PWS 09/13/22 [facility] [employer] Other XR shoulder RT min 2V* Dictated By: Dedrick Arroyo Jr, DO 09/13/22 [facility] [employer] Other XR shoulder RT min 2V* Signed By: [employer] Other XR shoulder RT min 2V* 09/13/22 [facility] [employer] Other MG MAMM SCREEN 3D LISA CADon 02-23-2022 MG MAMM SCREEN 3D LISA CAD Patient: NATA PETE Exam Date: 02/23/2022 : 1945 Gender:F Ordering : MRS. AISHA RAGLAND Admission #: [id number] Family : Order #: [id number] CLICK HERE TO VIEW EXAM RADIOLOGY REPORT PROCEDURE: MAMMOGRAM SCREENING 3D BILATERAL CAD COMPARISON: MG MAMM SCREEN LISA W CAD, 10/10/2018. MG MAMM SCREEN 3D LISA CAD, 11/04/2020. INDICATIONS: Screening mammography Calculator Name NCI Breast Cancer Risk Assessment Tool 5 Year Breast Cancer Risk 1.60% Lifetime Breast Cancer Risk 3.70% Personal Breast Cancer No Personal Ovarian Cancer No Treatments None Family Cancers Aunt-paternal with breast cancer at age 70. LOCATION: [facility] BREAST COMPOSITION: Scattered areas fibroglandular density. FINDINGS: DIAGNOSTIC CATEGORY 1--NEGATIVE. NO CHANGE FROM COMPARISON ASSESSMENT. Scattered benign-appearing calcifications are present. RIGHT BREAST: No significant suspicious finding. LEFT BREAST: No significant suspicious finding. RECOMMENDATIONS: ROUTINE MAMMOGRAM AND CLINICAL EVALUATION IN 12 MONTHS. PLEASE NOTE: A NORMAL MAMMOGRAM DOES NOT EXCLUDE THE POSSIBILITY OF BREAST CANCER. A CLINICALLY SUSPICIOUS PALPABLE LUMP SHOULD BE BIOPSIED. Dictated by: Eliz Huang MD on 02/24/2022 at 08:16 Approved by: Eliz Huang MD on 02/24/2022 at 08:28 Normal [facility] XR knee BI 3Von 10-05-2021 XR knee BI 3V [facility] [employer] Other XR knee BI 3V [facility] [employer] Other XR knee BI 3V [address] [place] [address] [employer] Other XR knee BI 3V [address] [employer] Other XR knee BI 3V XRay Report [employer] Other XR knee BI 3V Signed [employer] Other XR knee BI 3V Patient: Nata Pete MR#: [id number] [place] [employer] Other XR knee BI 3V [id number] [employer] Other XR knee BI 3V : 1945 Acct:[id number] [employer] Other XR knee BI 3V Age/Sex: 76 / F ADM Date: 10/05/21 [employer] Other XR knee BI 3V Loc: [facility] Room: Type : [facility] [employer] Other XR knee BI 3V Attending Dr: João Soto DO [employer] Other XR knee BI 3V Ordering Provider: João Soto DO [employer] Other XR knee BI 3V Date of Service: 10/05/21 [employer] Other XR knee BI 3V XR/XR knee BI 3V - NOT FOR ER USE: Pain in right knee;Pain in left knee [employer] Other XR knee BI 3V Copies to: João Soto, [employer] Other XR knee BI 3V BILATERAL KNEES - 3 views each [employer] Other XR knee BI 3V COMPARISON: 07/20/2020 right knee. [employer] Other XR knee BI 3V CLINICAL DATA: Bilat eral generalized knee pain and difficulty ambulating. No injury. [employer] Other XR knee BI 3V Standing AP, lateral and sunrise views were obtained. There is osteopenia. No acute fractures or [employer] Other XR knee BI 3V dislocation are note d. There is medial subluxation of the femur with respect to the tibia on both [employer] Other XR knee BI 3V sides. There is also lateral subluxation of the patella bilaterally. There is moderate joint space [employer] Other XR knee BI 3V narrowing at these sites. There is also narrowing at the lateral compartments. [employer] Other XR knee BI 3V marginal spurring is seen. There is a trace amount of joint fluid. No focal soft tissue swelling is [employer] Other XR knee BI 3V noted. [employer] Other XR knee BI 3V X R/XR knee BI 3V - NOT FOR ER USE [employer] Other XR knee BI 3V IMPRESSION: [employer] Other XR knee BI 3V OSTEOPENIA AND ADVAN DONN DEGENERATIVE CHANGES. [employer] Other XR knee BI 3V Impression dictated by: Shahana Pérez M.D.10/05/2021 2:58 PM [employer] Other XR knee BI 3V Dictation Location: [facility] [employer] Other XR knee BI 3V Transcribed By: PWS 10/05/21 [facility] [employer] Other XR knee BI 3V Dictated By: Shahana Pérez MD 10/05/21 [facility] [employer] Other XR knee BI 3V Signed By: [employer] Other XR knee BI 3V 10/05/21 [facility] [employer] Other Q - COMPREHENSIVE METABOLIC PANEL W/EGFRon 09-30-2021 Albumin [Mass/Vol] 4.0 g/dL Normal 3.6-5.1 [facility] Commercial Lending Assistant Comment on above: Order Comment: [facility] Testing performed at: [facility], [address] [place] [address], [address] [place] [address], [phone], Ritual Circumciser: Willie Rodriguez MD [facility] Collection Date/Time: [facility] Results Received Date/Time: [facility] Reported Date/Time: FASTING: NO Performed By: #### 1 [id number] #### [facility] Default [address] [place] [address] Albumin/Globulin [Mass ratio] 2.4 {ratio} Normal 1.0-2.5 [facility] Commercial Lending Assistant Comment on above: Order Comment: [facility] performed at: [facility], [address] [place] [address], [address] [place] [address], [phone], Ritual Circumciser: Willie Rodriguez MD [facility] Collection Date/Time: [facility] Results Received Date/Time: [facility] Reported Date/Time: FASTING: NO Performed By: #### 1 [id number] #### [facility] Default [address] [place] [address] ALP [Catalytic activity/Vol] 68 U/L Normal 37-153 [facility] Specialist Comment on above: Order Comment: [facility] Testing performed at: [facility], [facility], [address] [place] [address], [address] [place] [address], [address] [place] [address], Ritual Circumciser: Willie Rodriguez MD [facility] Collection Date/Time: [facility] Results Received Date/Time: [facility] Reported Date/Time: FASTING: NO Performed By: #### 1 [id number] #### [facility] Default [address] [place] [address] ALT [Catalytic activity/Vol] 8 U/L Normal 6-29 [facility] Commercial Lending Assistant Comment on above: Order Comment: [facility] performed at: [facility], [facility], [address] [place] [address], [address] [place] [address], [address] [place] [address], Ritual Circumciser: Willie Rodriguez MD [facility] Collection Date/Time: [facility] Results Received Date/Time: [facility] Reported Date/Time: FASTING: NO Performed By: #### 1 [id number] #### [facility] Default [address] [place] [address] AST [Catalytic activity/Vol] 12 U/L Normal 10-35 [facility] Commercial Lending Assistant Comment on above: Order Comment: [facility] performed at: [facility], [facility], [address] [place] [address], [address] [place] [address], [address] [place] [address], Ritual Circumciser: Willie Rodriguez MD [facility] Collection Date/Time: [facility] Results Received Date/Time: [facility] Reported Date/Time: FASTING: NO Performed By: #### 1 [id number] #### [facility] Default [address] [place] [address] Bilirubin [Mass/Vol] 0.4 mg/dL Normal 0.2-1.2 [facility] Comment on above: Order Comment: [facility] Testing performed at: [facility], [facility], [address] [place] [address], [address] [place] [address], [address] [place] [address], Ritual Circumciser: Willie Rodriguez MD [facility] Collection Date/Time: [facility] Results Received Date/Time: [facility] Reported Date/Time: FASTING: NO Performed By: #### 1 [id number] #### [facility] Default [address] [place] [address] Calcium [Mass/Vol] 9.8 mg/dL Normal 8.6-10.4 [facility] Specialist Comment on above: Order Comment: [facility] Testing performed at: [facility], [facility], [address] [place] [address], [address] [place] [address], [address] [place] [address], Ritual Circumciser: Willie Rodriguez MD [facility] Collection Date/Time: [facility] Results Received Date/Time: [facility] Reported Date/Time: FASTING: NO Performed By: #### 1 [id number] #### [facility] [address] [place] [address] Chloride [Moles/Vol] 96 mmol/L Low 98-110 [facility] Specialist Comment on above: Order Comment: [facility] Testing performed at: [facility], [address] [place] [address], [address] [place] [address], [address] [place] [address], Ritual Circumciser: Willie Rodriguez MD [facility] Collection Date/Time: [facility] Results Received Date/Time: [facility] Reported Date/Time: FASTING: NO Performed By: #### 1 [id number] #### [facility] Default [address] [place] [address] CO2 [Moles/Vol] 28 mmol/L Normal 20-32 [facility] Specialist Comment on above: Order Comment: [facility] Testing performed at: [facility], [address] [place] [address], [address] [place] [address], [address] [place] [address], Ritual Circumciser: Willie Rodriguez MD [facility] Collection Date/Time: [facility] Results Received Date/Time: [facility] Reported Date/Time: FASTING: NO Performed By: #### 1 [id number] #### [facility] Default [address] [place] [address] Creatinine [Mass/Vol] 0.43 mg/dL Low 0.60-0.93 [facility] Commercial Lending Assistant Comment on above: Order Comment: [facility] Testing performed at: [facility], [facility], [address] [facility], [address] [place] [address], [address] [place] [address], Ritual Circumciser: Willie Rodriguez MD [facility] Collection Date/Time: [facility] Results Received Date/Time: [facility] Reported Date/Time: FASTING: NO Result Comment: For patients >49 years of age, the reference limit for Creatinine is approximately 13% higher for people identified as -Burkinan. Performed By: #### 1 [id number] #### [facility] Default [address] [place] [address] eGFRAA ([facility]) 116 mL/min/1.73m2 Normal > OR = 60 [facility] Comment on above: Order Comment: [facility] Testing performed at: [facility], [address] [facility], [address] [place] [address], [address] [place] [address], Ritual Circumciser: Willie Rodriguez MD [facility] Collection Date/Time: [facility] Results Received Date/Time: [facility] Reported Date/Time: FASTING: NO Performed By: #### 1 [id number] #### [facility] Default [address] [place] [address] eGFRNAA ([facility]) 100 mL/min/1.73m2 Normal > OR = 60 No [facility] Commercial Lending Assistant Comment on above: Order Comment: [facility] Testing performed at: [facility], [facility], [address] [facility], [address] [place] [address], [address] [place] [address], Ritual Circumciser: Willie Rodriguez MD [facility] Collection Date/Time: [facility] Results Received Date/Time: [facility] Reported Date/Time: FASTING: NO Performed By: #### 1 [id number] #### [facility] Default [address] [place] [address] Globulin (S) [Mass/Vol] 1.7 g/dL Low 1.9-3.7 [place] Commercial Lending Assistant Comment on above: Order Comment: [facility] Testing performed at: [facility], [facility], [address] [place] [address], [address] [place] [address], [address] [place] [address], Ritual Circumciser: Willie Rodriguez MD [facility] Collection Date/Time: [facility] Results Received Date/Time: [facility] Reported Date/Time: FASTING: NO Performed By: #### 1 [id number] #### [facility] Default [address] [place] [address] Glucose [Mass/Vol] 98 mg/dL Normal 65-139 [facility] [place] Commercial Lending Assistant Comment on above: Order Comment: [facility] Testing performed at: [facility], [facility], [address] [place] [address], [address] [place] [address], [address] [place] [address], Ritual Circumciser: Willie Rodriguez MD [facility] Date/Time: [facility] Results Received Date/Time: [facility] Reported Date/Time: FASTING: NO Result Comment: Non-fasting reference interval Performed By: #### 1 [id number] #### [facility] Default [address] [place] [address] Potassium [Moles/Vol] 4.7 mmol/L Normal 3.5-5.3 [place] Commercial Lending Assistant Comment on above: Order Comment: [facility] Testing performed at: [facility], [facility], [address] [place] [address], [address] [place] [address], [address] [place] [address], Ritual Circumciser: Willie Rodriguez MD [facility] Collection Date/Time: [facility] Results Received Date/Time: [facility] Reported Date/Time: FASTING: NO Performed By: #### 1 [id number] #### [facility] Default [address] [place] [address] Protein [Mass/Vol] 5.7 g/dL Low 6.1-8.1 [facility] [place] Commercial Lending Assistant Comment on above: Order Comment: [facility] Testing performed at: [facility], [facility], [address] [facility], [address] [place] [address], [address] [place] [address], Ritual Circumciser: Willie Rodriguez MD [facility] Collection Date/Time: [facility] Results Received Date/Time: [facility] Reported Date/Time: FASTING: NO Performed By: #### 1 [id number] #### [facility] Default [address] [place] [address] Sodium [Moles/Vol] 130 mmol/L Low 135-146 Stoney rn [place] Commercial Lending Assistant Comment on above: Order Comment: [facility] Testing performed at: [facility], [facility], [address] [facility], [address] [place] [address], [address] [place] [address], Ritual Circumciser: Willie Rodriguez MD [facility] Collection Date/Time: [facility] Results Received Date/Time: [facility] Reported Date/Time: FASTING: NO Performed By: #### 1 [id number] #### [facility] Default [address] [place] [address] Urea nitrogen [Mass/Vol] 14 mg/dL Normal 7-25 [facility] Commercial Lending Assistant Comment on above: Order Comment: [facility] Testing performed at: [facility], [facility], [address] [facility], [address] [place] [address], [address] [place] [address], Ritual Circumciser: Willie Rodriguez MD [facility] Collection Date/Time: [facility] Results Received Date/Time: [facility] Reported Date/Time: FASTING: NO Performed By: #### 1 [id number] #### [facility] Default [address] [place] [address] Urea nitrogen/Creatinine [Mass ratio] 33 mg/mg High 6-22 [facility] Commercial Lending Assistant Comment on above: Order Comment: [facility] Testing performed at: [facility], [facility], [address] [facility], [address] [place] [address], [address] [place] [address], Ritual Circumciser: Willie Rodriguez MD [facility] Collection Date/Time: [facility] Results Received Date/Time: [facility] Reported Date/Time: FASTING: NO Performed By: #### 1 [id number] #### [facility] Default [address] [place] [address] PROF 14(COMP METB)on 021 Albumin [Mass/Vol] 3.6 g/dL Normal 3.5-5.0 [facility] Comment on above: Performed By: #### C MP #### [facility] [address] [place], [place] [id number] [place] Albumin/Globulin [Mass ratio] 1.3 {ratio} Normal [facility] Comment on above: Performed By: #### C MP #### [facility] [address] [place], [place] [id number] [place] ALP [Catalytic activity/Vol] 57 U/L Normal 38-126 [facility] Comment on above: Performed By: #### C MP #### [facility] [address] [place], [place] [id number] [place] ALT [Catalytic activity/Vol] 16 U/L Normal 9-52 [facility] Comment on above: Performed By: #### C MP #### [facility] [address] [place], [place] [id number] [place] Anion gap [Moles/Vol] 9.4 mmol/L Normal [facility] Comment on above: Performed By: #### C MP #### [facility] [address] [place], [place] [id number] [place] AST [Catalytic activity/Vol] 14 U/L Normal 14-36 [facility] Comment on above: Performed By: #### C MP #### [facility] [address] [place], [place] [id number] [place] Bilirubin [Mass/Vol] 0.4 mg/dL Normal 0.2-1.3 [facility] Comment on above: Performed By: #### C MP #### [facility] [address] [place], [place] [id number] [place] Calcium [Mass/Vol] 9.1 mg/dL Normal 8.4-10.2 [facility] Comment on above: Performed By: #### C MP #### [facility] [address] [place], [place] [id number] [place] Chloride [Moles/Vol] 102 mmol/L Normal 98-107 [facility] Comment on above: Performed By: #### C MP #### [facility] [address] [place], [place] [id number] [place] CO2 [Moles/Vol] 28.8 mmol/L Normal 22.0-30.0 [facility] Comment on above: Performed By: #### C MP #### [facility] [address] [place] [address] [place] Creatinine [Mass/Vol] 0.53 mg/dL Normal 0.52-1.04 [facility] Comment on above: Performed By: #### C MP #### [facility] [address] [place] [address] [place] EGFR-AF [place]OREAN >60 Normal >=60 [facility] Comment on above: Performed By: #### C MP #### [facility] [address] [place] [address] [place] EGFR-NON AF [place]OREAN >60 Normal >=60 [facility] Comment on above: Performed By: #### C MP #### [facility] [address] [place] [address] [place] Globulin (S) [Mass/Vol] 2.7 g/dL Normal [facility] Comment on above: Performed By: #### C MP #### [facility] [address] [place] [address] [place] Glucose [Mass/Vol] 98 mg/dL Normal 74-106 [facility] Comment on above: Performed By: #### C MP #### [facility] [address] [place] [address] [place] Potassium [Moles/Vol] 4.2 mmol/L Normal 3.4-5.0 [facility] Comment on above: Performed By: #### C MP #### [facility] [address] [address] [place] Harkins Protein [Mass/Vol] 6.3 g/dL Normal 6.1-8.2 [facility] Comment on above: Performed By: #### C MP #### [facility] [address] [address] [place]ins Sodium [Moles/Vol] 136 mmol/L Critically low 137-[address] [facility] Comment on above: Performed By: #### C MP #### [facility] [address] [address] [place] Harkins Urea nitrogen [Mass/Vol] 15.0 mg/dL Normal 7.0-17.0 [facility] Comment on above: Performed By: #### C MP #### [facility] [address] [address] [place] Harkins Urea nitrogen/Creatinine [Mass ratio] 28.3 mg/mg Normal [facility] Comment on above: Performed By: #### C MP #### [facility] [address] [address] [place] Harkins CNOVSPon 11-07-2017 CNOVSP Visit (SP) Office ([facility]) NATA PETE ([id number]) 1945 FDate Time Provider Department11/07/17 3:00 PM WAYNE OLIVAS During your visit today, we recorded the following information about you: Temperature Pulse Respiration Blood pressure 98.4 degrees 63/minute 18/minute 150/70 Weight Height 66.6 kg 1.495 Digna Olivas MD 11/12/2017 11:43 AM SignedCHIEF COMPLAINT: low WBC countHISTORY OF PRESENT ILLNESS: Nata Pete is a 70 year old female whopresents in follow up of low WBC count. Review of outside labs suggestlymphopenia. Repeat labs today note normal counts. Patient denies any recentissues with medications or recurrent infections.PAST MEDICAL HISTORYDiagnosis Date- GERD (gastroesophageal reflux disease)- Hyperlipidemia- Hypertension- Leukopenia- Obesity- OsteoarthritisNo past surgical history on file.Review of Social History includes:Social History Marital status: Unknown Spouse name: Years of education: Number of children:Social History Main Topics Smoking status: Never Smoker Smokeless status: Never UsedNo family history on file.Current Outpatient Prescriptions:simvastati n (ZOCOR) 40 mg tablet does not know mg, but takes 1/2 tab in AM and1/2 tab pmcholecalciferol (VITAMIN D) 1,000 unit tab tablet one dailycyanocobalamin, vitamin B-12, (VITAMIN B-12 ORAL) one dailydocosahexanoic acid/epa (FISH OIL ORAL) one dailyatenolol (TENORMIN) 50 mg tablet Take 0.5 tablets every day by oral route.lisinopril (ZESTRIL, PRINIVIL) 20 mg tablet Take 0.5 tablets every day by oralroute.metFORMIN (GLUCOPHAGE) 500 mg tablet Take 250 mg by mouth once daily.famotidine (PEPCID) 20 mg tablet Take 20 mg by mouth twice daily.alendronate (FOSAMAX) 35 mg tablet Take 35 mg by mouth once each week.acetaminophen (TYLENOL EXTRA STRENGTH) 500 mg tablet Take 500 mg by mouth every8 hours as needed.cholecalciferol, vitamin D3, (VITAMIN D-3) 400 unit cap Take 400 Units by mouthonce daily.Multivitamin capsule Take 1 capsule by mouth once daily.B COMPLEX WITH VITAMIN C (B COMPLEX-C STRESS FORMULA ORAL) Take by mouth.Green Tea [place] Extract (GREEN TEA) cap Take by mouth.DIPHENHYDRAMINE HCL (BENADRYL ALLERGY ORAL) Take by mouth.No current facility-administered medications for this visit.REVIEW OF SYSTEMS:Constitutional: No fever, night sweats or unwanted weight loss. Appetite stableHead and neck: No recurrent sinus infectionsRespiratory: No cough or hemoptysis.Cardiovascula r: No chest pain or palpitations.GI: No nausea, vomiting, diarrhea or GI bleed. No bloating or early satietySkin: No rash or lesions.PHYSICAL EXAMINATION:BP 150/70 Pulse 63 Temp 36.9 ?C (98.4 ?F) (Oral) Resp 18 Ht 149.5 cm(4' 10.86 ) Wt 66.6 kg (146 lb 12.8 oz) SpO2 100% BMI 29.79 kg/f7AIFAUHLS EXAMINATIONGeneral: Alert and oriented, no distress, pleasant and cooperative.Heart: Regular, normal S1 and S2, no murmurs, rubs, or gallopsLungs: Clear to auscultation bilaterallyAbdomen: NT ND, no organomegalyExtremities: Feet/ankles without edema, posterior tibial pulses full andsymmetricalASSESSMENT /PLAN: Nata Pete is a 72 year old female with lymphopenia. Nonew medication changes at the time this was originally noted. Feels well. Labsnormal. Discussed possible causes of transient abnormality.Patient may followup with Dr. Dale at this time and can return as needed or if abnormalityre-emerges.1. Lymphopenia-labs without lymphopenia-suspect this was transient-can follow up with Dr. Dale and RTC if abnormality recurs/persists or otherabnormality developsAlLESVIA Kaurefarabella Provider: WAYNE OLIVAS [[id number]]Allergies As of Date: 11/07/2017 Noted Allergy ReactionBEES 01/20/2016 12 - Shortness of BreathMONISTAT 1 (TIOCONAZOLE) 01/20/2016 14 - Other: See Comments Comments: burning TRAMADOL 14 - Other: See Comments Comments: Hot and dizzyDate Reviewed: 11/07/2017Reviewed by: Gadiel Khoury - Fully AssessedReason for Visit: lymphopenia [Other] Cmt: 1 year follow upPrimary Visit Diagnosis:Lymphopenia [D72.810]Disposition: Return if symptoms worsen or fail to improve.Follow-up and Disposition History RecordedPrescriptions as of 11/07/2017 Sig: SIMVASTATIN 40 MG TABLET does not know mg, but takes 1* CHOLECALCIFEROL (VITAMIN D3) * one daily VITAMIN B-12 ORAL one daily FISH OIL ORAL one daily ATENOLOL 50 MG TABLET Take 0.5 tablets every day by* LISINOPRIL 20 MG TABLET Take 0.5 tablets every day by* METFORMIN 500 MG TABLET Take 250 mg by mouth once jose j* FAMOTIDINE 20 MG TABLET Take 20 mg by mouth twice jose j* ALENDRONATE 35 MG TABLET Take 35 mg by mouth once each* ACETAMINOPHEN 500 MG TABLET Take 500 mg by mouth every 8 * CHOLECALCIFEROL (VITAMIN D3) * Take 400 Units by mouth once * MULTIVITAMIN CAPSULE Take 1 capsule by mouth once * B COMPLEX-C STRESS FORMULA OR* Take by mouth. GREEN TEA LEAF EXTRACT CAPSULE Take by mouth. BENADRYL ALLERGY ORAL Take by mouth.Medication notes this encounter SIMVASTATIN 40 MG TABLET >> Gadiel Khoury 11/07/2017 3:00 PM >> GADIEL KHOURY Nov 07, 2017 3:00 PM Received from: [facility] CHOLECALCIFEROL (VITAMIN D3) 1,000 UNIT TABLET >> Gadiel Khoury 11/07/2017 3:00 PM >> GADIEL KHOURY Nov 07, 2017 3:00 PM Received from: [facility] VITAMIN B-12 ORAL >> Gadiel Khoury 11/07/2017 3:01 PM >> GADIEL KHOURY Nov 07, 2017 3:01 PM Received from: [facility] FISH OIL ORAL >> Gadiel Khoury 11/07/2017 3:01 PM >> GADIEL KHOURY Nov 07, 2017 3:01 PM Received from: [facility] ATENOLOL 50 MG TABLET >> Gadiel Khoury 11/07/2017 3:02 PM >> GADIEL KHOURY Nov 07, 2017 3:02 PM Received from: [facility] LISINOPRIL 20 MG TABLET >> Gadiel Khoury 11/07/2017 3:02 PM >> GADIEL KHOURY Nov 07, 2017 3:02 PM Received from: [facility] VITAMIN C ORAL >> Gadiel Khoury 11/07/2017 3:00 PM >> GADIEL KHOURY Nov 07, 2017 3:00 PM [facility]trProblem List As Of Date 11/07/2017 Noted Resolved Lymphopenia [D72.810] INVALID FOR*Encounter Status:Closed by WAYNE OLIVAS MD on 11/12/17 Normal [facility] Comp Metabolic Panelon 11-07 Alanine aminotransferase (ALT) 17 U/L Normal 7-38 [facility] Comment on above: Performed By: #### L D6, CMP ####[facility] [phone] Albumin 4.1 g/dL Normal 3.9-4.9 [facility] Comment on above: Performed By: #### L D6, CMP ####[address] [place] [address] [address] [phone] Alkaline phosphatase (ALP) 48 U/L Normal 32-117 [facility] Comment on above: Performed By: #### L D6, CMP ####[address] [place] [address] [address] [phone] Anion gap 12 mmol/L Normal 9-18 [facility] Comment on above: Performed By: #### L D6, CMP ####[address] [place] [phone] Aspartate aminotransferase (AST) 20 U/L Normal 13-35 [facility] Comment on above: Performed By: #### L D6, CMP ####[address] [phone] Bilirubin (total) 0.3 mg/dL Normal 0.2-1.3 [facility] Comment on above: Performed By: #### L D6, CMP ####[address] [place] [address] [address] [phone] Calcium 9.0 mg/dL Normal 8.5-10.2 [facility] Comment on above: Performed By: #### L D6, CMP ####[address] [place] [address] [address] [phone] Chloride 100 mmol/L Normal 97-105 [facility] Comment on above: Performed By: #### L D6, CMP ####[address] [place] [phone] CO2 27 mmol/L Normal 22-30 [facility] Comment on above: Performed By: #### L D6, CMP ####[facility] [place], [place] [phone] Creatinine 0.62 mg/dL Normal 0.58-0.96 [facility] Comment on above: Performed By: #### L D6, CMP ####[facility], [place] [phone] eGFR (non-black) mL/min/{1.73_m2} Normal [facility] Comment on above: Result Comment: eGFR (Estimated GFR) Units of measure: mL/min/1.73 meters squaredeGFR is derived from the reexpressed MDRD Study equation using the following parameters: serum creatinine, age, gender and race. The creatinine assay has been calibrated to be traceable to IDMS.An eGFR <60 mL/min/1.73m2 for >3 months is consistent with chronic kidney disease. Refer to KDOQI guidelines for clinical interpretation.In patients with unstable renal function, e.g. those with acute kidney injury, the eGFR may not accurately reflect actual GFR. Performed By: #### L D6, CMP ####[address] [place], [place] [phone] Glucose mass conc 92 mg/dL Normal 74-99 [facility] Comment on above: Result Comment: The [place] Diabetes Association (ADA) provides guidance for cutoff values for fasting glucose and random glucose. The ADA defines fasting as no caloric intake for at least 8 hours. Fasting plasma glucose results between 100 to 125 mg/dL indicate increased risk for diabetes (prediabetes).Fasting plasma glucose results greater than or equal to 126 mg/dL meet the criteria for diagnosis of diabetes. In the absence of unequivocal hyperglycemia, results should be confirmed by repeat testing. In a patient with classic symptoms of hyperglycemia or hyperglycemic crisis, random plasma glucose results greater than or equal to 200 mg/dL meet the criteria for diagnosis of diabetes.Reference: Standards of Medical Care in Diabetes 2016, [place] Diabetes Association. Diabetes Care. 2016.39(Suppl 1). Performed By: #### L D6, CMP ####[address] [place], [place] [phone] Potassium molar conc 4.4 mmol/L Normal 3.7-5.1 [facility] [place] Comment on above: Performed By: #### L D6, CMP ####[facility] [place], [place] [phone] Protein 6.4 g/dL Normal 6.3-8.0 [facility] Comment on above: Performed By: #### L D6, CMP ####[facility] [place], [place] [phone] Sodium 139 mmol/L Normal 136-144 [facility] Comment on above: Performed By: #### L D6, CMP ####[facility] [place], [place] [phone] Urea nitrogen 15 mg/dL Normal 7-21 [facility] Comment on above: Performed By: #### L D6, CMP ####[facility] [place], [place] [phone] LDon 11-07-2017 LD 166 U/L Normal 135-214 [facility] Comment on above: Performed By: #### L D6, CMP ####[facility] [place], [place] [phone] PROGRESSon 11-07-2017 PROGRESS HNO ID: [id number]: Wayne Malave: (none)Author Type: PhysicianType: Progress NotesFiled: 11/12/2017 11:43 AMNote Text:CHIEF COMPLAINT: low WBC countHISTORY OF PRESENT ILLNESS: Nata Pete is a 70 year old female whopresents in follow up of low WBC count. Review of outside labs suggestlymphopenia. Repeat labs today note normal counts. Patient denies anyrecent issues with medications or recurrent infections.PAST MEDICAL HISTORYDiagnosis Date- GERD (gastroesophageal reflux disease)- Hyperlipidemia- Hypertension- Leukopenia- Obesity- OsteoarthritisNo past surgical history on file.Review of Social History includes:Social History Marital status: Unknown Spouse name: Years of education: Number of children:Social History Main Topics Smoking status: Never Smoker Smokeless status: Never UsedNo family history on file.Current Outpatient Prescriptions:simvastati n (ZOCOR) 40 mg tablet does not know mg, but takes 1/2 tab in AMand 1/2 tab pmcholecalciferol (VITAMIN D) 1,000 unit tab tablet one dailycyanocobalamin, vitamin B-12, (VITAMIN B-12 ORAL) one dailydocosahexanoic acid/epa (FISH OIL ORAL) one dailyatenolol (TENORMIN) 50 mg tablet Take 0.5 tablets every day by oral route.lisinopril (ZESTRIL, PRINIVIL) 20 mg tablet Take 0.5 tablets every day byoral route.metFORMIN (GLUCOPHAGE) 500 mg tablet Take 250 mg by mouth once daily.famotidine (PEPCID) 20 mg tablet Take 20 mg by mouth twice daily.alendronate (FOSAMAX) 35 mg tablet Take 35 mg by mouth once each week.acetaminophen (TYLENOL EXTRA STRENGTH) 500 mg tablet Take 500 mg by mouthevery 8 hours as needed.cholecalciferol, vitamin D3, (VITAMIN D-3) 400 unit cap Take 400 Units bymouth once daily.Multivitamin capsule Take 1 capsule by mouth once daily.B COMPLEX WITH VITAMIN C (B COMPLEX-C STRESS FORMULA ORAL) Take by mouth.Green [place] Extract (GREEN TEA) cap Take by mouth.DIPHENHYDRAMINE HCL (BENADRYL ALLERGY ORAL) Take by mouth.No current facility-administered medications for this visit.REVIEW OF SYSTEMS:Constitutional: No fever, night sweats or unwanted weight loss. AppetitestableHead and neck: No recurrent sinus infectionsRespiratory: No cough or hemoptysis.Cardiovascula r: No chest pain or palpitations.GI: No nausea, vomiting, diarrhea or GI bleed. No bloating or earlysatietySkin: No rash or lesions.PHYSICAL EXAMINATION:BP 150/70 Pulse 63 Temp 36.9 ?C (98.4 ?F) (Oral) Resp 18 Ht 149.5cm (4' 10.86 ) Wt 66.6 kg (146 lb 12.8 oz) SpO2 100% BMI 29.79 kg/p0DEDYLJCF EXAMINATIONGeneral: Alert and oriented, no distress, pleasant and cooperative.Heart: Regular, normal S1 and S2, no murmurs, rubs, or gallopsLungs: Clear to auscultation bilaterallyAbdomen: NT ND, no organomegalyExtremities: Feet/ankles without edema, posterior tibial pulses full andsymmetricalASSESSMENT /PLAN: Nata Pete is a 72 year old female withlymphopenia. No new medication changes at the time this was originallynoted. Feels well. Labs normal. Discussed possible causes of transientabnormality.Pat ient may follow up with Dr. Dale at this time and canreturn as needed or if abnormality re-emerges.1. Lymphopenia-labs without lymphopenia-suspect this was transient-can follow up with Dr. Dale and RTC if abnormality recurs/persists orother abnormality developsAlfred Carolin Olivas MD Normal [facility] Remote CBCDIF (for [facility] use o nly)on 11-07-2017 Abs Baso 0.03 k/uL Normal 0.00-0.10 [facility] Abs [place] 0.53 k/uL Normal 0.00-0.86 [facility] Abs Neut 3.83 k/uL Normal 1.45-7.50 [facility] Basophils/100 WBC Auto (Bld) 0.5 % Normal [facility] Eosinophils 0.31 10*3/uL Normal 0.00-0.45 [facility] Eosinophils/100 leukocytes 5.1 % Normal [facility] Erythrocyte distribution width Auto Ratio (RBC) 13.4 % Normal 11.5-15.0 [facility] Erythrocytes (RBC) 4.11 10*6/uL Normal 3.90-5.20 [facility] Hematocrit (HCT) 36.2 % Normal 36.0-46.0 [facility] Hemoglobin mass conc (Bld) 12.2 g/dL Normal 11.5-15.5 [facility] Lymphocytes 1.42 10*3/uL Normal 1.00-4.00 [facility] Lymphocytes/100 leukocytes 23.2 % Normal [facility] MCH 29.7 pG Normal 26.0-34.0 [facility] MCHC mass conc (RBC) 33.7 g/dL Normal 30.5-36.0 [facility] MCV 88.1 fL Normal 80.0-100.0 [facility] Monocytes/100 leukocytes 8.7 % Normal [facility] Neutrophils/100 WBC Auto (Bld) 62.5 % Normal [facility] Platelet mean volume (PMV) 10.4 fL Normal 9.0-12.7 [facility] Platelets 211 10*3/uL Normal 150-400 [facility] WBC (Leukocytes) 6.12 10*3/uL Normal 3.70-11.00 [facility] Vital Signs Date Time Vital Sign Value Performing Clinician Facility 10-17-2023 10:18-0400 Diastolic blood pressure 64 mm[Hg] Kaci Morton [facility] 10-17-2023 10:18-0400 Heart rate 66 /min Kaci Morton [facility] 10-17-2023 10:18-0400 Mean blood pressure 80 mm[Hg] Kaci Meijob [facility] 10-17-2023 10:18-0400 Respiratory rate 14 /min Kaci Meijob [facility] 10-17-2023 10:18-0400 Systolic blood pressure 112 mm[Hg] Kaci Meijob [facility] 10-01-2023 06:33-0400 Heart rate 78 /min Dillon Bryant [facility] 10-01-2023 06:33-0400 Respiratory rate 16 /min Dillon Bryant [facility] 10-01-2023 06:33-0400 SaO2% (BldA) [Mass fraction] 98 % Dillon Bryant [facility] 10-01-2023 05:23-0400 Body temperature 97.7 [degF] Dillon Bryant [facility] 10-01-2023 05:23-0400 Diastolic blood pressure 75 mm[Hg] Dillon Bryant [facility] 10-01-2023 05:23-0400 Heart rate 74 /min Dillon Patelner [facility] 10-01-2023 05:23-0400 Respiratory rate 16 /min Dillon Hurtado [facility] 10-01-2023 05:23-0400 SaO2% (BldA) [Mass fraction] 99 % Dillon Hurtado [facility] 10-01-2023 05:23-0400 Systolic blood pressure 139 mm[Hg] Dillon Hurtado [facility] 08-14-2023 16:13-0500 Body height 152.4 cm Aisha Ragland PA Work Phone: [facility] 08-14-2023 16:13-0500 Body mass index (BMI) [Ratio] 25.82 kg/m2 Aisha Ragland PA Work Phone: [facility] 08-14-2023 16:13-0500 Body temperature 99.1 [degF] Aisha Ragland PA Work Phone: [facility] 08-14-2023 16:13-0500 Body weight 59.97 kg Aisha Ragland PA Work Phone: [facility] 08-14-2023 16:13-0500 Diastolic blood pressure 80 mm[Hg] Aisha Ragland PA Work Phone: [facility] 08-14-2023 16:13-0500 Heart rate 64 /min Aisha Ragland PA Work Phone: [facility] 08-14-2023 16:13-0500 SaO2% (BldA) [Mass fraction] 97 % Aisha Ragland PA Work Phone: [facility] 08-14-2023 16:13-0500 Systolic blood pressure 122 mm[Hg] Aisha Ragland PA Work Phone: [facility] 07-15-2023 14:58-0500 Body height 144.78 cm PA-C Aisha Obie Work Phone: [facility] 07-15-2023 14:58-0500 Body temperature 98.5 [degF] PA-C Aisha Obie Work Phone: [facility] 07-15-2023 14:58-0500 Body weight 56.7 kg PA-C Aisha Obie Work Phone: [facility] 07-15-2023 14:58-0500 Diastolic blood pressure 62 mm[Hg] PA-C Aisha Obie Work Phone: [facility] 07-15-2023 14:58-0500 Heart rate 63 /min PA-C Aisha Obie Work Phone: [facility] 07-15-2023 14:58-0500 Respiratory rate 18 /min PA-C Aisha Obie Work Phone: [facility] 07-15-2023 14:58-0500 SaO2% (BldA) [Mass fraction] 98 % PA-C Aisha Obie Work Phone: [facility] 07-15-2023 14:58-0500 Systolic blood pressure 132 mm[Hg] PA-C Aisha Obie Work Phone: [facility] 06-20-2023 14:45-0500 Body height 152.4 cm Lisa Castillo Other [facility] Other 03-21-2023 13:30-0400 Body height 152.4 cm João Soto Other [facility] Other 03-21-2023 13:30-0400 Body mass index (BMI) [Ratio] 24.41 kg/m2 João Soto Other [facility] Other 03-21-2023 13:30-0400 Body weight 56.7 kg João Brittany Other [facility] Other 09-13-2022 13:45-0500 Body height 152.4 cm João Brittany Other [facility] Other 09-13-2022 13:45-0500 Body mass index (BMI) [Ratio] 24.02 kg/m2 João Brittany Other [facility] Other 09-13-2022 13:45-0500 Body weight 55.79 kg João Brittany Other [facility] Other 10-05-2021 13:00-0400 Body height 152.4 cm João Brittany Other [facility] Other 10-05-2021 13:00-0400 Body mass index (BMI) [Ratio] 23.43 kg/m2 João Brittany Other [facility] Other 10-05-2021 13:00-0400 Body weight 54.43 kg João Brittany Other [facility] Other Encounters Encounter Date Encounter Type Care Provider Facility Start: 12-31-2023 End: 12-31-2023 ambulatory AISHA RAGLAND Not Available Start: 12-19-2023 End: 12-19-2023 ambulatory [facility] Work Phone: Start: 12-19-2023 End: 12-19-2023 Patient encounter procedure [facility] Work Phone: Start: 12-06-2023 End: 12-06-2023 ambulatory TABITHA MAJANO Not Available Start: 10-18-2023 End: 10-18-2023 ambulatory AISHA RAGLAND Not Available Start: 10-17-2023 End: 10-18-2023 ambulatory Kaci Morton Facility:[facility] Start: 10-17-2023 End: 10-18-2023 ambulatory Aisha RAGLAND Facility:[facility] Start: 10-17-2023 End: 10-17-2023 Patient encounter procedure Kaci Morton [facility] Start: 10-17-2023 End: 10-17-2023 Pain Management Kaci Morton [facility] Start: 10-01-2023 End: 10-01-2023 Emergency department patient visit Dillon Hurtado Facility:[facility] Start: 10-01-2023 End: 10-01-2023 Emergency department patient visit Dillon Hurtado [facility] Start: 09-21-2023 End: 09-21-2023 ambulatory TABITHA MAJANO Not Available Start: 08-14-2023 End: 08-14-2023 ambulatory AISHA RAGLAND Not Available Start: 08-14-2023 End: 08-14-2023 Office outpatient visit 25 minutes Aisha PEREZ Work Phone: [facility] Comment on above: Chronic pain disorde r (Primary Dx); Controlled type 2 diabetes mellitus with diabetic polyneuropathy, without long-term current use of insulin ([facility]) Start: 07-15-2023 End: 07-15-2023 Emergency department patient visit Aisha Ragland Facility:[facility] Start: 07-15-2023 End: 07-15-2023 Emergency department patient visit ISELA Ragland Work Phone: [facility] Work Phone: Start: 06-26-2023 End: 06-26-2023 ambulatory João Soto Other [facility] Other Start: 06-26-2023 Telephone encounter João URIBE [facility] Start: 06-25-2023 End: 06-25-2023 ambulatory AISHA RAGLAND Not Available Start: 06-20-2023 End: 06-20-2023 ambulatory Lisa Jonathan Other [facility] Other Start: 06-20-2023 Office outpatient visit 25 minutes Lisa Castillo [facility] Start: 06-15-2023 End: 06-15-2023 ambulatory TABITHA MAJANO Not Available Start: 06-11-2023 End: 06-11-2023 ambulatory João Soto Other [facility] Other Start: 06-11-2023 Telephone encounter João URIBE [facility] Start: 03-21-2023 End: 03-21-2023 ambulatory João Soto Other [facility] Other Start: 03-21-2023 Office outpatient visit 25 minutes João Soto [facility] Start: 02-12-2023 End: 02-12-2023 ambulatory João Soto Other [facility] Other Start: 02-12-2023 Telephone encounter João URIBE [facility] Start: 09-13-2022 Office outpatient visit 15 minutes João Soto [facility] Start: 09-13-2022 End: 09-13-2022 ambulatory Aisha Ragland Facility:[facility] Start: 09-13-2022 End: 09-13-2022 ambulatory PA-C Aisha Ragland Work Phone: [facility] Work Phone: Start: 09-13-2022 End: 09-13-2022 Patient encounter procedure PA-C Aisha Obie Work Phone: [facility] Start: 06-14-2022 End: 06-14-2022 ambulatory João Brittany Other [facility] Other Start: 06-14-2022 Patient encounter procedure João Soto [facility] Start: 06-12-2022 End: 06-12-2022 ambulatory Vicky Ariela Other [facility] Other Start: 06-12-2022 Telephone encounter Vickyjerry Titus [facility] Start: 02-23-2022 End: 02-24-2022 ambulatory AISHA RAGLAND Facility:[facility] Start: 10-05-2021 End: 10-05-2021 ambulatory João Brittany Other [facility] Other Start: 10-05-2021 Office outpatient ne w 30 minutes João Soto [facility] Start: 06-29-2021 End: 06-29-2021 ambulatory Vicky Calvey Other [facility] Other Start: 06-29-2021 Office outpatient visit 25 minutes Vicky Calvey [facility] Start: 04-06-2021 Office outpatient visit 15 minutes Vicky Calvey [facility] Start: 03-28-2021 End: 03-29-2021 ambulatory AISHA RAGLAND Facility:[facility] Start: 11-07-2017 End: 11-12-2017 Ambulatory WAYNE OLIVAS [facility] Start: 02-20-2017 End: 02-21-2017 Ambulatory DEFAULT PHYSICIAN Facility:[facility] Procedures Date Procedure Procedure Detail Performing Clinician Start: 08-15-2023 Urine albumin quantitative Aisha PEREZ Work Phone: Start: 08-14-2023 Hemoglobin glycosylated a1c Aisha PEREZ Work Phone: Start: 09-13-2022 Plain X-ray of right shoulder ISELA Ragland Work Phone: Appendectomy Dillon Hurtado Arthroplasty of righ t hip joint Dillon Hurtado Cholecystectomy Dillon De Jesus r 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) Dillon Hurtado Tonsillectomy Dillon Hurtado Plan of Treatment Date Care Activity Detail Author Start: 08-15-2024 Urine screening for protein Diabetes: Urine Protein Screening [facility] Start: 12-10-2023 Glaucoma screening Diabetes: R etinopathy Screening [facility] Start: 11-28-2023 Medicare Annual Wellness (AWV) Medicare Annual Wellness (AWV) [facility] Start: 11-13-2023 Hemoglobin A1c measurement Diabetes: Hemoglobin A1C [facility] Start: 09-28-2023 End: 09-28-2023 Patient encounter procedure 09/28/2023 2:00 PM EDT Procedure Visit [facility] [address] [place] [id number] Tabitha Majano DPM [address] [place] [address] [facility] Patient Education Upper Respirat ory Infection ED [facility] Work Phone: Patient referral [facility] Work Phone: Immunizations Immunization Date Immunization Notes Care Provider Fa cility 03-27-2023 Influenza, High-dose Seasonal, Quadrivalent, Preservative Free Aisha PEREZ Work Phone: [facility] 03-27-2023 pneumococcal conjuga te vaccine, 13 valent Aisha PEREZ Work Phone: [facility] 2022 influenza, high dose seasonal, preservative-free Aisha PEREZ Work Phone: [facility] 2022 Influenza, High-dose Seasonal, Quadrivalent, Preservative Free Aisha Ragland PA Work Phone: [facility] 04-25-2021 Influenza, High-dose Seasonal, Quadrivalent, Preservative Free Aisha Ragland PA Work Phone: [facility] 04-06-2021 Kenalog -40 mg Vicky Calve y Other [facility] Other 10-26-2020 Kenalog -40 mg Vicky Calve y Other [facility] Other 09-28-2020 pneumococcal polysaccharide vaccine, 23 valent Aisha Ragland PA Work Phone: [facility] 07-23-2020 tetanus toxoid, reduced diphtheria toxoid, and acellular pertussis vaccine, adsorbed PA-C Aisha Ragland Work Phone: [facility] 07-20-2020 Kenalog -40 mg Vicky Calve y Other [facility] Other 04-26-2020 influenza, high dose seasonal, preservative-free Aisha Ragland PA Work Phone: [facility] 04-26-2020 Influenza, High-dose Seasonal, Quadrivalent, Preservative Free Aisha Ragland PA Work Phone: [facility] 04-21-2020 Kenalog -40 mg Vicky Calve y Other [facility] Other 02-11-2020 Kenalog -40 mg Vicky Calve y Other [facility] Other 12-03-2019 Kenalog -40 mg Vicky Calve y Other [facility] Other 05-21-2019 influenza, high dose seasonal, preservative-free Aisha Obie PA Work Phone: [facility] 05-26-2018 influenza, high dose seasonal, preservative-free Aisha Obie PA Work Phone: [facility] 06-27-2017 pneumococcal polysaccharide vaccine, 23 valent Aisha Ragland PA Work Phone: [facility] 05-05-2017 influenza, high dose seasonal, preservative-free Aisha Obie PA Work Phone: [facility] 04-24-2017 influenza, injectabl e, quadrivalent, preservative free Aisha Obie PA Work Phone: [facility] 05-20-2016 influenza, high dose seasonal, preservative-free Aisha Obie PA Work Phone: [facility] 05-11-2015 influenza, injectabl e, quadrivalent, contains preservative Aisha Obie PA Work Phone: [facility] 05-26-2014 influenza, injectabl e, quadrivalent, contains preservative Aisha Obie PA Work Phone: [facility] 05-06-2008 influenza virus vaccine, whole virus Aisha Obie PA Work Phone: [facility] 05-14-2007 influenza virus vaccine, whole virus Aisha Obie PA Work Phone: [facility] NEGATED: Highlighted row has not occurred!04-26-2019 influenza, high dose seasonal, preservative-free PA-C Aisha Obie Work Phone: [facility] Payers Date Payer Category Payer Unknown 2022 Self-pay [id number] 2020 Unknown [id number] 1959 Unknown [id number] 1945 Unknown [id number] .16.84 [id number] 1945 Unknown [id number] 2.16.84 [id number] 1945 Unknown [id number] 2.16.8 [id number] 1945 Unknown [id number] 2.16.8 [id number] 1945 Unknown [id number] 2.16.8 [id number] 1945 Unknown [id number] 2.16.84 0.1.737491.3.579.2.1259 1945 Unknown [id number] 2.16.84 0.1.669166.3.579.2.1259 1945 Unknown [id number] 2.16.84 0.1.330586.3.579.2.1259 1945 Unknown [id number] 2.16.84 0.1.009823.3.579.2.1259 1945 Unknown [id number] 2.16.84 0.1.206412.3.579.2.1259 1947 Unknown [id number] 2.16.840 .[id number] 1945 Unknown [id number] 2.16.840 .[id number] Medicare [id number] Unknown HCAP/HFA/FAP Active [id number] Unknown [id number] 2.16.8 [id number] Unknown [id number] 2.16.8 [id number] Social History Date Type Detail Facility Start: 03-27-2023 End: 08-14-2023 Sex Assigned At [facility] Other Start: 07-24-2020 End: 07-15-2023 Tobacco smoking status NHIS Never smoked tobacco (finding) [facility] Start: 1945 Sex Assigned At Female F [facility] Start: 03-27-2023 Tobacco use and exposure Smokeless tobacco non-user [facility] Start: 08-14-2023 Alcohol intake Current drinke r of alcohol (finding) [facility] Start: 03-27-2023 End: 08-14-2023 History of Social function [facility] Start: 12-25-2022 Alcohol Comment 1-2 drinks les s than monthly in the past year, Caffeine intake: 2-3 cups per day [facility] Start: 1945 Sex Assigned At Not on file N [facility] Medical Equipment Procedure Code Equipment Code Equipment Origin al Text Equipment Identifier Dates Orthopaedic bone screw, non-bioabsorbable, non-sterile [id number] FDA Start: 04-25-2019 Orthopaedic bone screw, non-bioabsorbable, non-sterile ()[id number] FDA Start: 04-25-2019 Orthopaedic bone screw, non-bioabsorbable, non-sterile ()[id number] FDA Start: 04-25-2019 Orthopaedic bone washer, non-sterile ()[id number] FDA Start: 04-25-2019 USE DIRECTED ONCE DAILY [id number] Start: 05-21-2023 Lancets (OneTouc h Delica Plus [id number]) [facility] [id number] Start: 04-26-2022 Functional Status Date Assessment Result Facility 10-17-2023 Functional Status N/A [facility] 10-01-2023 Functional Status N/A [facility] Clinical Notes 04-15-2013 to 10-17-2023 Note Date & Type Note Facility 10-17-2023 Evaluation + Plan note Extrac venkata from: Title:Pain Managment H&P new patient Author:Kaci Dobbs PA-C Date:10/17/23 Patient: NATA PETE Age: 78 years Sex: Female : 1945 Associated Diagnoses: None Author: Kaci Morton PA-C Basic Information Accompanied by: Family member. Source of history: Self, Family member, Medical record. Referral source: OBIE WEISS, Aisha Aparicio History limitation: None. Chief Complaint 10/17/2023 10:18 EDT Right shoulder & right knee pain History of Present Illness Patient is a 78-year-old female. She has a past medical history significant for bilateral knee pain, bilateral knee arthritis, right shoulder pain and right shoulder arthritis. Patient is here today as referred by her PCP. She states that they have been giving her Dewey 5/325 twice daily as needed pain that she uses as sparingly as possible. Per patient's understanding they were still going to continue to give this medication to her. She also has been seeing Ortho Dr. Anguiano. He has been doing injections that worked well for her. She had these last done in September. She states that the right knee was not done as there was question of her having right knee surgery/replacement but she has some other medical conditions she wanted to get taking care of first. She is going to having her teeth pulled. She states that the surgery may be delayed and she may be getting an injection but she plans to do this with them as she has always had them with them and they go well for her. She has the right shoulder pain and right knee greater than left knee pain that she rates a 6/10 today. Review of Systems Constitutional: No fever, No chills. Eye: No recent visual problem. Ear/Nose/Mouth/Throat: No decreased hearing. Respiratory: No shortness of breath, No cough. Cardiovascular: No chest pain. Gastrointestinal: No nausea, No vomiting. Genitourinary: No dysuria, No hematuria. Hematology/Lymphatics: No bruising tendency, No bleeding tendency. Musculoskeletal: Joint pain, Decreased range of motion, No back pain. Integumentary: No rash, No pruritus. Neurologic: Alert and oriented X4, Numbness, No tingling. Psychiatric: No anxiety, No depression. Health Status Allergies: Allergic Reactions (Selected) Severity Not Documented Bee Stings- Unknown. Latex- Other. Miconazole Nitrate- Unknown. TraMADol- Unknown. Current medications: No qualifying data available Problem list: All Problems Resolved: Hypertension / SNOMED CT 56596482 Resolved: Osteoarthritis / SNOMED CT 1024621528 Resolved: High cholesterol / SNOMED CT 4086820675 Resolved: Diabetes mellitus / SNOMED CT 031145790 Histories Past Medical History: Resolved Hypertension (27717533): Resolved. Osteoarthritis (2867089106): Resolved. High cholesterol (6955863016): Resolved. Diabetes mellitus (697827692): Resolved. Family History: Hypertension Father Brother Sister Heart disease Father Diabetes mellitus type 2 Mother Brother Stroke Mother CAD (coronary artery disease) Father Procedure history: Appendectomy (SNOMED CT 119103644). Cholecystectomy (SNOMED CT 05293334). Tonsillectomy (SNOMED CT 990933204). Repair of right hip joint (SNOMED CT 141191872429359). Osteoporotic fracture of left hip (SNOMED CT 268133834302051). Social History Social & Psychosocial Habits Alcohol 4Risk Assessment: Denies Alcohol Use Substance Abuse 10/17/2023isk Assessment: Denies Substance Abuse Tobacco 10/17/2023 Tobacco Use: Never (less than 100 in l 4Risk Assessment: Denies Tobacco Use . Physical Examination Vital Signs (last 24 hrs) Last Charted Heart Rate Abrgluvfrb50 bpm (OCT 16 10:18) KLG852 mmHg (OCT 16 10:18) DBP64 mmHg (OCT 16 10:18) Yzjyie86 kg (OCT 16 10:18) BMI27.68 (OCT 16 10:18) General: Alert and oriented, No acute distress. HENT: Normocephalic, Normal hearing. Respiratory: Respirations are non-labored. Cardiovascular: No edema. Musculoskeletal Normal range of motion. Normal strength. Slight pain with movement of the right shoulder and the right knee but fairly normal range of motion. Neurologic: Alert, Oriented. Cognition and Speech: Oriented, Speech clear and coherent. Psychiatric: Cooperative, Appropriate mood & affect. Integumentary: Warm, Dry, [place]. Review / Management Results review: No qualifying data available . Bilateral knee x-ray. 10/05/2021. Bilateral moderate joint space narrowing. Tricompartmental marginal spurring is seen. Trace amounts of fluid. Right shoulder x-ray. 09/13/2022. Degenerative changes involving the right shoulder. Severe in the glenohumeral joint. Mild in the right AC joint. Impression and Plan Patient is a 78-year-old female with a past medical history significant for bilateral knee pain, bilateral knee arthritis, right shoulder pain and right shoulder arthritis. She has been seeing Ortho and having injections to her knees with improvement. She did not have the right knee done recently because she was maybe going to be having surgery. She has an upcoming appointment with Ortho. She states that a repeat knee injection versus replacement surgery is going to be discussed. At this time though she is dealing with issues with her teeth. She is going to continue to take care of this as well as some peripheral edema with her PCP. She has been getting Dewey from her PCP. 5/325 twice daily. She states that per their last conversation she thought they were going to continue to fill it. At this time, we discussed the possibility of genicular nerve block but she wants to continue with her appointment with her PCP which is tomorrow and with her Ortho sx. We will obtain a UDS today and reach out to the PCP to see if they are going to continue to fill this. In regards to the genicular nerve block she will consider this but she states that surgery is discussed she is hoping to pursue this. She will follow-up in 1 month. OARRS reviewed. ENID score: 38%. Addendum by Taylor Morton PA-C on October 17, 2023 11:44 EDT Right foot not ranged due to being in a brace/AFO [facility]03-18-2024 Evaluation + Plan noteExtracted from: Title:ED Note Author:Dillon Hurtado DO Date :10/01/23 Acute UTI (N39.0: Urinary tr act infection, site not specified) Orders: cephalexin, 500 mg = 1 cap(s), Oral, q12hr, X 7 day(s), # 14 cap(s), Refills(s) 0, Pharmacy: [facility]/pharmacy #[id number], 175, cm, 10/01/23 5:36:00 EDT, Height/Length Dosing, 55, kg, 10/01/23 5:36:00 EDT, Weight Dosing cephalexin, 500 mg = 1 cap(s), Cap, Oral, Once, Stop date 10/01/23 6:24:00 EDT, STAT, Start date 10/01/23 6:24:00 EDT, 10/01/23 6:24:00 EDT phenazopyridine, 100 mg = 1 tab(s), Oral, TID, X 3 day(s), # 9 tab(s), Refills(s) 0, Pharmacy: [facility]/pharmacy #[id number], 175, cm, 10/01/23 5:36:00 EDT, Height/Length Dosing, 55, kg, 10/01/23 5:36:00 EDT, Weight Dosing UA With Cult Reflex Urine Culture Future Appointments Appointment Date:10/17/2023 10:45:00 AM Scheduled Provider:Kaci Morton PA-C Location:[facility] [place] Appointment Type:Pain Management - New (FT) Diagnostic Tests Pending * Urine Culture 10/01/23 [facility]03-18-2024 Hospital Discharge instructions Patient Education 10/01/2023 06:38:16 Urinary Tract Infection, Adult Urinary Tract Infection, Adult A urinary tract infection (UTI) is an infection of any part of the urinary tract. The urinary tractincludes the kidneys, ureters, bladder, and urethra. These organs make, store, and get rid of urinein the body. An upper UTI affects the ureters and kidneys. A lower UTI affects the bladder and urethra. What are the causes? Most urinary tract infections are caused by bacteria in your genital area around your urethra, where urine leaves your body. These bacteria grow and cause inflammation of your urinary tract. What increases the risk? You are more likely to develop this condition if: You have a urinary catheter that stays in place. You are not able to control when you urinate or have a bowel movement (incontinence). You are female and you: ?Use a spermicide or diaphragm for control. ?Have low estrogen levels. ?Are . You have certain genes that increase your risk. You are sexually active. You take antibiotic medicines. You have a condition that causes your flow of urine to slow down, such as: ?An enlarged prostate, if you are male. ?Blockage in your urethra. ?A kidney stone. ?A nerve condition that affects your bladder control (neurogenic bladder). ?Not getting enough to drink, or not urinating often. You have certain medical conditions, such as: ?Diabetes. ?A weak disease-fighting system (immunesystem). ?Sickle cell disease. ?Gout. ?Spinal cord injury. What are the signs or symptoms? Symptoms of this condition include: Needing to urinate right away (urgency). Frequent urination. This may include small amounts of urine each time you urinate. Pain or burning with urination. Blood in the urine. Urine that smells bad or unusual. Trouble urinating. Cloudy urine. Vaginal discharge, if you are female. Pain in the abdomen or the lower back. You may also have: Vomiting or a decreased appetite. Confusion. Irritability or tiredness. A fever or chills. Diarrhea. The first symptom in older adults may be confusion. In some cases, they may not have any symptoms until the infection has worsened. How is this diagnosed? This condition is diagnosed based on your medical history and a physical exam. You may also have other tests, including: Urine tests. Blood tests. Tests for STIs (sexually transmitted infections). If you have had more than one UTI, a cystoscopy or imaging studies may be done to determine the cause of the infections. How is this treated? Treatment for this condition includes: Antibiotic medicine. Wgqj-lsv-gxsyjhw medicines to treat discomfort. Drinking enough water to stay hydrated. If you have frequent infections or have other conditions such as a kidney stone, you may need to see a health care provider who specializes in the urinary tract (urologist). In rare cases, urinary tract infections can cause sepsis. Sepsis is a life- threatening condition that occurs when the body responds to an infection. Sepsis is treated in the hospital with IV antibiotics, fluids, and other medicines. Follow these instructions at home: Medicines Take ebwj-wxk-cgllsjr and prescription medicines only as told by your health care provider. If you were prescribed an antibiotic medicine, take it as told by your health care provider. Do notstop using the antibiotic even if you start to feel better. General instructions Make sure you: ?Empty your bladder often and completely. Do not hold urine for long periods of time. ?Empty your bladder after sex. ?Wipe from front to back after urinating or having a bowel movement if you are female. Use each tissue only one time when you wipe. Drink enough fluid to keep your urine pale yellow. Keep all follow-up visits. This is important. Contact a health care provider if: Your symptoms do not get better after 1 2 days. Your symptoms go away and then return. Get help right away if: You have severe pain in your back or your lower abdomen. You have a fever or chills. You have nausea or vomiting. Summary A urinary tract infection (UTI) is an infection of any part of the urinary tract, which includes the kidneys, ureters, bladder, and urethra. Most urinary tract infections are caused by bacteria in your genital area. Treatment for this condition often includes antibiotic medicines. If you were prescribed an antibiotic medicine, take it as told by your health care provider. Do notstop using the antibiotic even if you start to feel better. Keep all follow-up visits. This is important. This information is not intended to replace advice given to you by your health care provider. Make sure you discuss any questions you have with your health care provider. Document Revised: 02/11/2021 Document Reviewed: 02/11/2021 [employer] Patient Education 2022 [employer] Follow Up Care 10/01/2023 05:17:03 With:Aisha RAGLAND Address: [address] [place] [id number] Business (1) When:Within 3 Day(s) [facility]02-13-2024 History of Present illness Narrative* ANA Whitlock - 08/28/2023 3:03 PM ESTAssociated Problem(s): Chronic pain disorder Patient will call when need refill * ANA Whitlock - 08/28/2023 3:02 PM ESTAssociated Problem(s): Controlled type 2 diabetes mellitus with diabetic polyneuropathy, without apoorva g-term current use of insulin ([facility]) Well controlled will continue meds * ANA Whitlock - 08/14/2023 4:00 PM EST Nata Pete is a 78 y.o. female presents with chief complaint of Diabetes and Edema HPI: HPI Pt here today for A1C check. Pt also would like to discuss rash on right hand as well as leg swelling SUBJECTIVE: MEDICATIONS: Current Outpatient Medications Medication Instructions alendronate (FOSAMAX) 35 mg, Oral, Every 7 days, Patient taking 1/2 tablet once per week atenolol (TENORMIN) 12.5 mg, Oral, Daily Blood Glucose Monitoring Suppl (ONE TOUCH ULTRA 2) w/Device kit CeleBREX 100 MG capsule Every 24 hours Elderberry 575 MG/5ML syrup as directed Orally escitalopram (LEXAPRO) 20 mg, Oral, Daily famotidine (PEPCID) 20 mg, Oral, Daily furosemide (Lasix) 20 MG tablet TAKE 1 TABLET BY MOUTH EVERY DAY for 30 glucose blood (Medication ReviewTouch Ultra) test strip USE DIRECTED ONCE DAILY HYDROcodone-acetaminophen (Dewey) 5-325 MG tablet 1 tablet, Oral, 2 times daily Lancets (Medication ReviewTouch Delica Plus [id number]) misc lisinopril 20 MG tablet TAKE 1/4 TABLET BY MOUTH TWICE DAILY for 90 metFORMIN (Glucophage) 500 MG tablet Every 24 hours omega-3 (Fish Oil) 1200 MG capsule 1 capsule, Every 24 hours simvastatin (ZOCOR) 40 mg, Oral, Every 24 hours ALLERGIES: Allergies Allergen Reactions Bee Venom Shortness of breath Bee Pollen Unknown Miconazole Unknown Tramadol Unknown SOCIAL HISTORY: Social History Tobacco Use Smoking status: Never Smokeless tobacco: Never Substance Use Topics Alcohol use: Yes Comment: 1-2 drinks less than monthly in the past year, Caffeine intake: 2-3 cups per day Drug use: Never Depression: Not at risk (03/27/2023) PHQ-2 PHQ-2 Score: 0 REVIEW OF SYMPTOMS: General: Denies fever, chills, fatigue, PARK or weight loss/gain CV: Denies CP, palpitations or swelling in legs Resp: denies cough, SOB or wheezing GI: Denies abd pain/n/v/c/d Skin: Denies rash Neuro: Denies LH or dizziness OBJECTIVE: Visit Vitals BP 122/80 Pulse 64 Temp 99.1 F Ht 5' Wt 132 lb 3.2 oz SpO2 97% BMI 25.82 kg/m Smoking Status Never BSA 1.59 m General: alert & oriented, NAD Head: NC/AT Oral Cavity: MMM Skin: warm, dry Heart: RRR, No m/r/g, S1S2 nml Lungs: CTA b/l Abdomen: soft, ND/NT, BS wnl Musculoskeletal: normal gait Extremities: no clubbing, cyanosis or edema Neurological: nonfocal Psych: mood/affect full range ASSESSMENT AND PLAN: Assessment/Plan Problem List Items Addressed This Visit Chronic pain disorder - Primary Patient will call when need refill Relevant Orders Handicap Placard Lifetime Microalbumin / creatinine urine ratio (Completed) Controlled type 2 diabetes mellitus with diabetic polyneuropathy, 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 ([facility]) Well controlled will continue meds Relevant Orders POCT Glycated hemoglobin, total (Completed) Microalbumin / creatinine urine ratio (Completed) documented in this encounterRay [facility] [id number] Evaluation note* Encounter Date Diagnosis Assessment Notes Treatment Notes Treatment Clinical Notes Jun, Primary osteoarthritis of right shoulder (ICD-10 - M19.011) Nata still also has significant DJD of the right shoulder. She has a large effusion today. She would like to move forward with aspiration injection. Under sterile technique the patient's right shoulder was aspirated revealing 77 cc of benign-appearing joint fluid injected with 4 cc Marcaine 1 cc of Kenalog. She tolerated this well. Examination and assessment of this patient was performed by Lisa Castillo NP and patient will continue with the treatment plan per Dr. Soto, who initiated this treatment plan. Dr. Soto is present in the office today and providing supervision. Jun, Primary osteoarthritis of both knees (ICD-10 - M17.0) Nata presents with arthritis mutilans of bilateral knees. At this juncture we have discussed the findings and diagnosis as well as personally reviewed appropriate imaging and performed interpretation of related testing and examination with the patient in office today. Prior medical notes from Dr. Titus and history have been reviewed. Today we have discussed degenerative joint disease of the knee and its treatment. Imaging was discussed and explained to the patient. We discussed recommended conservative therapies including physical therapy, anti-inflammatory medications, and weight loss strategies. We also discussed other treatment options including cortisone injections, Visco supplementation injections which are options for treatment. I have laid out the course of knee DJD including the end-stage treatment of total joint arthroplasty. The patient recognizes and understands our options and goals and we will move forward with our treatment. She is currently happy with cortisone injections and is not ready to move forward from here at this point. Today under sterile technique patient's bilateral knees were injected via the inferolateral portal 4 cc Marcaine 1 cc of Kenalog. She tolerated this well. The patient has been involved in our cooperative treatment plan and agrees to move forward with treatment at this time. Jun, Pain in right knee (ICD-10 - M25.561) Jun, Pain in left knee (ICD-10 - M25.562) Jun, Acute pain of right shoulder (ICD-10 - M25.511) [facility] Other 11-27-2023 Evaluation note* Encounter Date Diagnosis Assessment Notes Treatment Notes Treatment Clinical Notes May, Primary osteoarthritis of right shoulder (ICD-10 - M19.011) [facility] Other 09-06-2023 Evaluation note* Encounter Date Diagnosis Assessment Notes Treatment Notes Treatment Clinical Notes Mar, Primary osteoarthritis of right shoulder (ICD-10 - M19.011) Nata still also has significant DJD of the right shoulder. She has a large effusion today. She would like to move forward with aspiration injection. Under sterile technique the patient's right shoulder was aspirated revealing 100 cc of benign-appearing joint fluid injected with 4 cc Marcaine 1 cc of Kenalog. She tolerated this well. Patient was then aspirated of approximately 100 mls of normal appearing fluid, then a cortisone injection was preformed under sterile conditions. 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 At this juncture we have discussed the findings and diagnosis as well as personally reviewed appropriate imaging and performed interpretation of related testing and examination with the patient in office today. Prior medical notes from Dr. Titus and history have been reviewed. Today we have discussed degenerative joint disease of the knee and its treatment. Imaging was discussed and explained to the patient. We discussed recommended conservative therapies including physical therapy, anti-inflammatory medications, and weight loss strategies. We also discussed other treatment options including cortisone injections, Visco supplementation injections which are options for treatment. I have laid out the course of knee DJD including the end-stage treatment of total joint arthroplasty. The patient recognizes and understands our options and goals and we will move forward with our treatment. She is currently happy with cortisone injections and is not ready to move forward from here at this point. Today under sterile technique patient's bilateral knees were injected via the inferolateral portal 4 cc Marcaine 1 cc of Kenalog. She tolerated this well. The patient has been involved in our cooperative treatment plan and agrees to move forward with treatment at this time. We performed a marcaine / kenalog cortisone injection into the bilateral knee joint under sterile technique. Patient tolerated the injection well without adverse reaction. Mar, Pain in right knee (ICD-10 - M25.561) Mar, Pain in left knee (ICD-10 - M25.562) Mar, Acute pain of right shoulder (ICD-10 - M25.511) [facility] Other 07-31-2023 Evaluation note* Encounter Date Diagnosis Assessment Notes Treatment Notes Treatment Clinical Notes Jan, Primary osteoarthritis of right shoulder (ICD-10 - M19.011) [facility] Other 03-01-2023 Evaluation note* Encounter Date Diagnosis Assessment Notes Treatment Notes Treatment Clinical Notes Sep, Primary osteoarthritis of both knees (ICD-10 - M17.0) Nata presents with arthritis mutilans of bilateral knees. At this juncture we have discussed the findings and diagnosis as well as personally reviewed appropriate imaging and performed interpretation of related testing and examination with the patient in office today. Prior medical notes from Dr. Titus and history have been reviewed. Today we have discussed degenerative joint disease of the knee and its treatment. Imaging was discussed and explained to the patient. We discussed recommended conservative therapies including physical therapy, anti-inflammatory medications, and weight loss strategies. We also discussed other treatment options including cortisone injections, Visco supplementation injections which are options for treatment. I have laid out the course of knee DJD including the end-stage treatment of total joint arthroplasty. The patient recognizes and understands our options and goals and we will move forward with our treatment. She is currently happy with cortisone injections and is not on a progress from here at this time. I am happy to provide this for her and today under sterile technique patient's bilateral knees were injected via the inferolateral portal with 4 cc Marcaine 1 cc of Kenalog, she tolerated this well. I will see her back as needed At her last visit we discussed possible moving forward with total knee arthroplasty but unfortunately her daughter, who would be her tree loader meat, is having some medical issues and she will need to postpone this or delay this. We did discuss a trial of viscosupplementation if she does not have better relief with cortisone. She is agreeable to this. She will follow-up as needed The patient has been involved in our cooperative treatment plan and agrees to move forward with treatment at this time. We performed a marcaine / kenalog cortisone injection into the bilateral knee joint under sterile technique. Patient tolerated the injection well without adverse reaction. Sep, Primary osteoarthritis of right shoulder (ICD-10 - M19.011) Nata still also has significant DJD of the right shoulder. She would like to avoid surgery. She would like to try cortisone injection today. I believe that is fine. Risks and benefit of injection were discussed and verbal consent was obtained. Under sterile technique the patient's right shoulder was injected via the posterior portal with 4 cc of Marcaine and 1 cc of Kenalog, this was tolerated well without any adverse reaction. Band-Aid was applied to the area. A marcaine / kenalog cortisone injection was performed into the subacromial space under sterile technique. Patient tolerated the injection well with no adverse reaction. 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 At this juncture we have discussed the findings and diagnosis as well as personally reviewed appropriate imaging and performed interpretation of related testing and examination with the patient in office today. Prior medical notes from Dr. Titus and history have been reviewed. Today we have discussed degenerative joint disease of the knee and its treatment. Imaging was discussed and explained to the patient. We discussed recommended conservative therapies including physical therapy, anti-inflammatory medications, and weight loss strategies. We also discussed other treatment options including cortisone injections, Visco supplementation injections which are options for treatment. I have laid out the course of knee DJD including the end-stage treatment of total joint arthroplasty. The patient recognizes and understands our options and goals and we will move forward with our treatment. She is currently happy with cortisone injections and is not on a progress from here at this time. I am happy to provide this for her and today under sterile technique patient's bilateral knees were injected via the inferolateral portal with 4 cc Marcaine 1 cc of Kenalog, she tolerated this well. I will see her back as needed At her last visit we discussed possible moving forward with total knee arthroplasty but unfortunately her daughter, who would be her tree loader meat, is having some medical issues and she will need to postpone this or delay this. We did discuss a trial of viscosupplementation if she does not have better relief with cortisone. She is agreeable to this. She will follow-up as needed The patient has been involved in our cooperative treatment plan and agrees to move forward with treatment at this time. We performed a 1/1cc marcaine / kenalog cortisone injection into the bilateral knee joints under sterile technique. Patient tolerated the injection well without adverse reaction. Patient continues to experience joint pain and we will now apply for hyaluronic acid injections. Patient has failed other conservative treatments including oral NSAIDs or topical medications, acetaminophen, home therapy exercises and cortisone injections for a trial of 3 months or longer. 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 At this juncture we have discussed the findings and diagnosis as well as personally reviewed appropriate imaging and performed interpretation of related testing and examination with the patient in office today. Prior medical notes from Dr. Titus and history have been reviewed. Today we have discussed degenerative joint disease of the knee and its treatment. Imaging was discussed and explained to the patient. We discussed recommended conservative therapies including physical therapy, anti-inflammatory medications, and weight loss strategies. We also discussed other treatment options including cortisone injections, Visco supplementation injections which are options for treatment. I have laid out the course of knee DJD including the end-stage treatment of total joint arthroplasty. The patient recognizes and understands our options and goals and we will move forward with our treatment. She is currently happy with cortisone injections and is not on a progress from here at this time. I am happy to provide this for her and today under sterile technique patient's bilateral knees were injected via the inferolateral portal with 4 cc Marcaine 1 cc of Kenalog, she tolerated this well. I will see her back as needed The patient has been involved in our cooperative treatment plan and agrees to move forward with treatment at this time. The patient is suffering from bilateral degenerative arthritis involving the knees. We discussed the conservative treatment options which can be beneficial in relieving pain, including gentle non-impact motion exercise and non-steroidal anti-inflammatory medication. We discussed the use of occasional cortisone injections that can provide pain relief as well as hyaluronan lubricant injection. We discussed total knee arthroplasty procedure. We performed a kenalog cortisone injection into the bilateral knees joint under sterile technique. Patient tolerated the injection well without adverse reaction. Sep, Other See orders for this visit as documented in the electronic medical record. [facility] Other 09-22-2021 Evaluation note* Encounter Date Diagnosis Assessment Notes Treatment Notes Treatment Clinical Notes Mar, Closed fracture of neck of left femur with routine healing, subsequent encounter (ICD-10 - S72.002D) Mar, Primary osteoarthritis of left knee (ICD-10 - M17.12) We performed a 1/1cc marcaine / kenalog cortisone injection into the knee joint under sterile technique. Patient tolerated the injection well without adverse reaction. Mar, Primary osteoarthritis of right knee (ICD-10 - M17.11) We performed a 1/1cc marcaine / kenalog cortisone injection into the knee joint under sterile technique. Patient tolerated the injection well without adverse reaction. Mar, Pain in left knee (ICD-10 - M25.562) Mar, Acute pain of right knee (ICD-10 - M25.561) Mar, Other specified postprocedural states (ICD-10 - Z98.890) [facility] Other 10-01-2013 History general Narrative - Reported* Type Description Date Medical History right hip fracture S/P SCREW FIX ATION Medical History HTN Medical History HLD Surgical History RIGHT HIP FRACTURE S/P SCREW FI XATION ([facility]) 04/2013 Surgical History S/P HYSTERECTOMY Surgical History S/P CHOLECYSTECTOMY Surgical History femoral head fixation Hospitalization History ABOVE [facility] Other Evaluation noteNortGamma [employer] Other Evaluation noteNo assessment information available [facility] Work Phone: Evaluation noteNo InformationNort [employer] Other Evaluation note* Diagnosis Chronic pain disorder- Primary Chronic pain syndrome Controlled type 2 diabetes mellitus with diabetic polyneuropathy, 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 ([facility]) documented in this encounter [facility]* Diagnosis Onset Date Resolution Status Osteoarthritis of left knee acute Osteoarthritis of right knee acute Osteoarthritis of right shoulder chronic [facility] Work Phone: History general N[facility]ative - [facility] [employer] Other Hospital course Narrative No data available for this section [facility] No data available for this section [facility] No data available for this section [facility] Summary Purpose Family History No Family History Records Found Relationship Condition Age at Onset Recorded Date/T chris Not Specified Diabetes mellitus Unknown Coronary artery disease Unknown Alzheimer's disease Unknown Malignant neoplasm of breast Unknown Hypertension Unknown Relationship Condition Age at Onset Recorded Date/T chris Not Specified Diabetes mellitus Unknown Coronary artery disease Unknown Alzheimer's disease Unknown Malignant neoplasm of breast Unknown Hypertension Unknown brother Unknown father Unknown Not Specified Unknown Advance Directives No Advanced Directives Records Found Advance Directive Response Recorded Date/ Time Advance Directives Yes April 24, 2019 5:58pm Advance Directive Response Recorded Date/ Time Advance Directives Yes April 24, 2019 6:58pm Chief Complaint and Reason for Visit Chief Complaint cough fever congesti on Chief Complaint op sp rt shoulder pa in lt knee pain req injection Reason for Visit Osteoarthritis of le ft knee Osteoarthritis of right knee Osteoarthritis of right shoulder Additional Source Comments INFORMATION SOURCE (unrecogn ized section and content) DATE CREATED AUTHOR 01/03/2018 [facility] DATE CREATED AUTHOR AUTHOR'S ORGANIZ ATION 01/09/2018 [facility] DATE CREATED AUTHOR AUTHOR'S ORGANIZ ATION 10/03/2021 [facility] Specialist DATE CREATED AUTHOR AUTHOR'S ORGANIZ ATION 02/25/2022 [facility] DATE CREATED AUTHOR AUTHOR'S ORGANIZ ATION 08/24/2023 [facility] DATE CREATED AUTHOR AUTHOR'S ORGANIZ ATION 10/25/2023 [facility] DATE CREATED AUTHOR AUTHOR'S ORGANIZ ATION 01/02/2024 [facility] Specialists EPIC REASON FOR VISIT (unrecogniz ed section and content) Reason Comments Diabetes Edema Care Teams (unrecognized sec tion and content) Team Status: Inactive Member Role Status Dates Aisha Ragland PA-C Primary Care Provider Active João Soto DO Attending Provider Active Team Status: Active Member Role Status Dates Aisha Ragland PA-C Primary Care Provider Active Team Status: Inactive Member Role Status Dates Aisha Ragland PA-C Primary Care Provider Active Bhaskar Hdz APRN Emergency Provider Active Electroencephalographic Technologist Relationship Specialty Start Date End Date Zuri Hannah MD [address] [place] [address] PCP - Devoted 07/16/20 Zuri Hannah MD [address] [place] [address] PCP - General Family Medicine 12/25/22 Team Status: Inactive Member Role Status Dates Aisha Ragland PA-C Primary Care Provider Active Start: December 19, 2023 End: December 19, 2023 João Soto DO Attending Provider Active S tart: December 19, 2023 End: December 19, 2023 Goals (unrecognized section and content) Goals may be documented in a n alternate section FOR RECORDS PERTAINING TO PATIENTS WHO ARE OR HAVE BEEN ENROLLED IN A CHEMICAL DEPENDENCY/SUBSTANCEABUSE PROGRAM, SOME INFORMATION MAY BE OMITTED. This clinical summary was aggregated from multiple sources. Caution should be exercised in using it in the provision of clinical care. This summary normalizes information from multiple sources, and as a consequence, information in this document may materially change the coding, format and clinical context of patient data. In addition, data may be omitted in some cases. CLINICAL DECISIONS SHOULD BE BASED ON THE PRIMARY CLINICAL RECORDS. [facility] [employer] provides no warranty or guarantee of the accuracy or completeness of information in this document.
[2024-01-19 12:00] LABS: Estimated GFR (African America >60 (>=60); Estimated GFR (Non-African Ame >60 (>=60)
== END 2024-01-19 11:25 | disposition home or self-care (01) ==
LOC: LAB 11:26
PROVIDERS: PCP Student in an Organized Health Care Education/Training Program
DX: E11.69 Type 2 diabetes mellitus with other specified complication (principal)
CPT/HCPCS: 36415; 82565

== ENCOUNTER 2024-10-25 12:10 | Outpatient (OUT) | payer OTHER, MEDICARE, SELFPAY ==
--- OUTSIDE RECORDS SUMMARY | 2024-10-25 12:12 | XMS_ITS | CCD ---
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 Name Role Phone PAULA, WAYNE P Unavailable Unavailable MARILU JACOBSON Unavailable Unavailable PAULA, WAYNE P Unavailable Unavailable PAULA, WAYNE P Unavailable Unavailable PHYSICIAN, DEFAULT Unavailable Unavailable PHYSICIAN, DEFAULT Unavailable Unavailable Vicky Titus Unavailable João Soto Unavailable AISHA RAGLAND Attending Unavailable AISHA RAGLAND Consulting Unavailable AISHA RAGLAND Admitting Unavailable TITUS HANNAH Primary Care Unavailable AISHA RAGLAND Admitting Unavailable AISHA ARGLAND Attending Unavailable TITUS HANNAH Primary Care Unavailable DR ELIZ BURK V Consulting Unavailable AISHA RAGLAND Consulting Unavailable ISELA Ragland Primary Care Provider [phone]( [phone] DO João Soto Attending Provider Lisa Castillo Unavailable ISELA Ragland Primary Care Provider GERARDO Hdz Emergency Provider Zuri Hannah MD Unavailable Zuri Hannah MD Primary Care Provider Aisha RAGLAND Primary Care Physician [phone] Kaci Morton Admitting Unavailable Kaci Morton Attending Unavailable Dillon Hurtado Attending Unavailable Aisha RAGLAND Referring Unavailable ISELA Morton Admitting Unavailabl e Kaci Morton Attending Unavailable ISELA Ragland Primary Care Provider Boss, MD Adam Emergency Provider CHARLINE Castillo Attending Provider [phone] Zuri Hannah MD Primary Care Provider Aisha Ragland PA-C Primary Care Provider 1( [phone] João Soto DO Attending Provider Braxton Sotoin A Attending Unavailable Alok João A Admitting Unavailable Aisha Ragland Primary Care Unavailable Alok, João A Attending Unavailable Alok, João A Admitting Unavailable Aisha Ragland Primary Care Unavailable Boss, Adam Attending Unavailable Aisha Ragland Primary Care Unavailable Gera, Adam Admitting Unavailable Aisha Ragland Primary Care Unavailable Lisa Castillo Admitting Unavailable Lisa Castillo Attending Unavailable Aisha Ragland Primary Care Unavailable Alok, João A Admitting Unavailable Alok, João A Attending Unavailable Alok, João A Attending Unavailable Alok, João A Admitting Unavailable Aisha Ragland Primary Care Unavailable Alok, João A Admitting Unavailable Aisha Ragland Primary Care Unavailable Alok, João A Attending Unavailable Aisha Ragland PA-C Primary Care Provider João Soto DO Attending Provider [phone] TABITHA VALENTINO Attending Unavailabl e AISHA RAGLAND Attending Unavailable TABITHA VALENTINO Attending Unavailabl e ZURI HANNAH Referring Unavailable AISHA RAGLAND Attending Unavailable OBIEAISHA WALLIS Attending Unavailable OBIEAISHA WALLIS Attending Unavailable AISHA RAGLAND Attending Unavailable TABITHA VALENTINO Attending Unavailabl e AISHA RAGLAND Attending Unavailable TABITHA VALENTINO Attending Unavailabl e AISHA RAGLAND Attending Unavailable Allergies Allergy Classification Reported Allergen(s) Allergy Type Date of Onset Reaction(s) Facility (1 source) Bee; Translations: [BEES] Propensity to adverse reactions (disorder) 6 AOF [facility] Repository (15 sources) tioconazole; Translations: [TIOCONAZOLE] Drug Allergy 6 AOF, Itching, Itching, rash [facility] Repository (15 sources) Bee/Wasp/Ant venom; Translations: [Bee Stings] Propensity to adverse reactions anaphylaxis, Unknown (qualifier value) [facility] (11 sources) Miconazole Drug Allergy rash [employer] Other (20 sources) traMADol; Translations: [tramadol] Drug Allergy 1 Unknown, Unknown (qualifier value) [facility] (1 source) Bee pollen Drug allergy (disorder) 3 [facility] Repository (1 source) Miconazole Drug Allergy 3 [facility] Repository (3 sources) venom-honey bee Allergy to substance 1 Fainting [facility] (20 sources) Bee pollen Allergy to substance 3 Unknown [facility] Work Phone: (20 sources) Honey bee venom Allergy to substance 3 Shortness of breath [facility] Healthcare (20 sources) Miconazole; Translations: [miconazole topical] Drug Allergy 3 Unknown, Unknown (qualifier value) [facility] Healthcare (3 sources) Latex; Translations: [Latex] Drug allergy Other (qualifier value) [facility] (1 source) Miconazole; Translations: [Miconazole Nitrate] Drug Allergy [facility] Repository (12 sources) bee venom protein (honey bee); Translations: [bee venom protein (honey bee)] Allergy to substance 4 anaphylaxis [facility] (1 source) traMADol Drug Allergy 5 [facility] Repository Medications Current Medications Medication Drug Class(es) Dates Sig (Normalized) Sig (Original) acetaminophen 500 mg oral tablet (20 sources) Start: 09-11-2024 take 2 tablets by mouth every eight hours Acetaminophen 500 mg Tablet Active 1000 MG PO Q8H 0 September 11, 2024 1:00am Start: 05-19-2019 End: 07-15-2023 take 1 tablet by mouth every four hours as needed for pain Acetaminophen 325 mg Tablet Discontinued 325 MG PO Q4H as needed for Pain 100 May 19, 2019 1:00am July 15, 2023 4:00pm Start: 05-19-2019 End: 04-05-2020 take 2 tablets by mouth every four hours as needed for pain Acetaminophen 325 mg Tablet Discontinued 650 MG PO Q4H as needed for Pain 0 May 19, 2019 1:00am April 05, 2020 7:50pm Start: 05-19-2019 End: 04-05-2020 take 650 mg by mouth every four hours Acetaminophen Discontinued 650 MG PO Q4H 0 May 19, 2019 1:00am April 05, 2020 7:50pm acetaminophen 325 mg / HYDROcodone bitartrate 5 mg oral tablet (20 sources) Opioid Agonist Start: 07-28-2024 End: 08-26-2024 take 1 tablet by mouth in the morning, then take 1 tablet by mouth in the evening, then take 1 tablet by mouth at bedtime HYDROcodone-acetaminophen ([place]) 5-325 MG tablet Indications: Chronic pain disorder Take 1 tablet by mouth in the morning and 1 tablet in the evening and 1 tablet before bedtime. 90 tablet 08/26/2024 Active Start: 07-01-2024 take 1 tablet by giuseppe th in the morning, then take 1 tablet by mouth in the evening, then take 1 tablet by mouth at bedtime HYDROcodone-acetaminophen ([place]) 5-325 MG tablet Indications: Chronic pain disorder Take 1 tablet by mouth in the morning and 1 tablet in the evening and 1 tablet before bedtime. 90 tablet 07/01/2024 Active Start: 04-07-2024 End: 06-02-2024 take 1 tablet by mouth in the morning, then take 1 tablet by mouth in the evening, then take 1 tablet by mouth at bedtime HYDROcodone-acetaminophen ([place]) 5-325 MG tablet Indications: Chronic pain disorder Take 1 tablet by mouth in the morning and 1 tablet in the evening and 1 tablet before bedtime. 90 tablet 06/02/2024 Active Start: 07-15-2023 End: 09-11-2024 take 1 tablet by mouth three times daily Hydrocodone-Acetaminophen 5-325 mg table t Discontinued 1 TAB PO Three times daily July 15, 2023 1:00am September 11, 2024 1:27pm Start: 07-10-2023 End: 08-23-2023 take 1 tablet by mouth in the morning HYDROcodone-acetaminophen ([place]) 5-325 MG tablet Indications: Chronic pain disorder Take 1 tablet by mouth in the morning and 1 tablet before bedtime. 60 tablet 03/10/2024 Active Start: 06-29-2021 take 1 tablet by giuseppe th every six hours HYDROcodone-Acetaminophen 5-325 MG 1 tablet as needed Orally every 6 hrs for 7 days Jun, Active Start: 06-29-2021 take 1 tablet by giuseppe th every six hours Start: 04-28-2019 End: 05-20-2019 take 1 tablet by mouth every four hours as needed for pain Hydrocodone-Acetaminophen 5-325 mg Table t Discontinued 1 - 2 TAB PO Q4H as needed for Pain 0 April 28, 2019 May 20, 2019 9:50am alendronic acid 35 mg oral tablet (18 sources) Bisphosphonate Start: 03-27-2023 alendronate (F osamax) [...] 06/18/20 Status: Ordered Start: 05-31-2020 End: 07-15-2023 Alendronate 35 mg tablet Discontinued 17.5 MG PO every week May 31, 2020 1:00am July 15, 2023 4:00pm Start: 05-31-2020 End: 07-15-2023 take 17.5 mg by mouth every week Alendronate Discontinued 17.5 MG PO every week May 31, 2020 1:00am July 15, 2023 4:00pm ascorbic acid 500 mg oral tablet (20 sources) Vitamin C Start: 08-22-2024 take 1 tablet by mouth once daily Ascorbic Acid (Vitamin C) (C-500) 500 mg tablet Active 500 MG PO Daily August 22, 2024 1:00am Start: 04-28-2019 End: 05-20-2019 take 1 tablet by mouth once daily Ascorbic Acid (Vitamin C) (Vitamin C) 500 mg Tablet Discontinued 500 MG PO Daily 0 April 28, 2019 12:00am May 20, 2019 9:50am Ascorbic Acid (V ITAMIN C PO) Take by mouth Active aspirin 81 mg delayed release oral tablet (20 sources) Platelet Aggregation Inhibitor, Nonsteroidal Anti-inflammatory Drug Start: 09-11-2024 take 1 tablet by mouth twice daily Aspirin 81 mg Tablet,Delayed Release (Dr/Ec) Active 81 MG PO Twice daily 0 September 11, 2024 1:00am Start: 06-18-2020 aspirin 81 mg Chew Tab 81 mg = 1 tab(s), Chewed, Daily, Refills(s) 0 Start Date: 06/18/20 Status: Ordered Start: 04-28-2019 End: 05-20-2019 Aspirin 81 mg Tablet,Delayed Release (Dr/Ec) Discontinued 325 MG PO Twice daily 0 April 28, 2019 12:00am May 20, 2019 9:50am Start: 04-28-2019 End: 05-20-2019 take 325 mg [...] tablet Orally Once a day Active atenolol 25 mg oral tablet (20 sources) beta-Adrenergic Panchito Start: 08-22-2024 Atenol ol 25 mg tablet Active 12.5 MG PO Daily August 22, 2024 1:00am Start: 01-04-2024 End: 01-03-2025 take 0.5 tablet by mouth once daily atenolol (Tenormin) 25 MG tablet Indications: Essential hypertension (CMS/HCC) Take 0.5 tablets (12.5 mg) by mouth Daily Take 12.5mg by mouth daily 45 tablet 3 01/04/2024 01/03/2025 Active Start: 06-18-2020 take 1 tablet by giuseppe th once daily atenolol 50 mg Tab 50 mg = 1 tab(s), Oral, Daily, Refills(s) 0 Start Date: 06/18/20 Status: Ordered Start: 04-05-2020 End: 08-22-2024 Atenolol 50 mg tablet Discon tinued 25 MG PO Daily April 05, 2020 12:00am August 22, 2024 2:52pm Start: 04-05-2020 take 25 mg by mouth once daily Atenolol Active 25 MG PO Daily April 05, 2020 12:00am Start: 04-24-2019 End: 05-20-2019 take 1 tablet by mouth once daily Atenolol 25 mg Tablet Discontinued 25 MG PO Daily April 24, 2019 12:00am May 20, 2019 9:50am atenolol (Tenorm in) 50 MG tablet Take 12.5 mg by mouth in the morning. 0 Active take 0.5 tablet by m outh once daily Atenolol 25 MG 1/2 tablet Orally Once a day for 30 day(s) Active Blood Glucose Monitoring Sup pl (ONE TOUCH ULTRA 2) w/Device kit (20 sources) Start: 04-26-2022 Blood Glucose Monitoring Suppl (ONE TOUCH ULTRA 2) w/Device kit 04/26/2022 Active Start: 04-26-2022 Blood Glucose Monitoring Suppl (ONE TOUCH ULTRA 2) w/Device kit Calcium Carb-Cholecalciferol (CALCIUM 600 + D PO) (20 sources) Calcium Carb-Cho lecalciferol (CALCIUM 600 + D PO) Take by mouth Active calcium carbonate 600 mg chewable tablet (5 sources) Start: 0 take 1 tablet by mouth once daily calcium carbonate 600 mg oral tablet, chewable 600 mg = 1 tab(s), Chewed, Daily, Refills(s) 0 Start Date: 06/18/20 Status: Ordered End: 08-14-2023 calcium carbonate 1500 (600 Ca) MG tablet 2 (two) times a day with meals. 0 08/14/2023 Discontinued calcium carbonate 1500 mg / cholecalciferol 0.01 mg oral tablet (20 sources) Vitamin D Start: 08-22-2024 take 1 tablet by mouth once daily Calcium Carbonate-Vitamin D3 (Calcium 600 + D(3)) 600 mg-10 mcg (400 unit) tablet Active 1 TAB PO Daily August 22, 2024 1:00am Start: 04-05-2020 take 1 tablet by giuseppe twice daily Calcium Carbonate-Vitamin D3 (Oyster Shell Calcium-Vit D3) 500 mg(1,250mg) -200 unit tablet Active 1 TAB PO Twice daily April 05, 2020 6:53pm Start: 04-28-2019 End: 04-05-2020 take 1 tablet by mouth once at mealtime Calcium Carbonate-Vitamin D3 (Oyster Shell Calcium-Vit D3) 500 mg(1,250mg) -200 unit Tablet Discontinued 1 TAB PO 3x/Day with meals May 19, 2019 1:00am April 05, 2020 7:54pm celecoxib 100 mg oral capsule (20 sources) Nonsteroidal Anti-inflammatory Drug Start: 10-17-2023 CeleBREX 100 mg C ap Refills(s) 0 Start Date: 10/17/23 Status: Ordered Start: 10-10-2023 End: 09-12-2024 take 1 capsule by mouth twice daily at mealtime Celecoxib 100 mg capsule Active 0 .ROUTE .COMPLEX 60 September 12, 2024 9:56am TAKE 1 CAPSULE BY MOUTH TWICE A DAY WITH FOOD Start: 07-15-2023 End: 10-10-2023 take 1 capsule by mouth twice daily Celecoxib 100 mg capsule Discontinued 100 MG PO Twice daily 60 October 08, 2023 1:00pm October 10, 2023 10:17am Start: 07-15-2023 End: 10-08-2023 Celecoxib Discontinued MG De cember 2022 1:00am October 08, 2023 1:01pm Start: 02-08-2022 take 1 capsule by [facility] every twelve hours CeleBREX 100 MG 1 capsule with food Orally Twice a day for 30 days Jan, Active CeleBREX 100 MG capsule 1 (one) time each day at the same time. Active doxycycline hyclate 100 mg oral tablet (9 sources) Tetracycline-class Drug Start: 09-11-2024 take 1 tablet by mouth twice daily Doxycycline Hyclate 100 mg Tablet Active 100 MG PO Twice daily 0 September 11, 2024 1:00am Start: 06-07-2024 End: 07-23-2024 take 1 capsule by mouth twice daily Doxycycline Hyclate 100 mg capsule Discontinued 100 MG PO Twice daily 26 01June 07, 2024 1:00am July 23, 2024 4:14pm elderberry fruit 200 mg oral capsule (6 sources) Start: 08-22-2024 take 1 capsule by mouth once daily Elderberry Fruit 200 mg capsule Active 500 MG PO Daily August 22, 2024 1:00am Elderberry preparation (20 sources) Start: 10-17-2023 elderberry Ref ill(s) 0 Start Date: 10/17/23 Status: Ordered Elderberry 575 M G/5ML syrup as directed Orally Active Elderberry 575 M G/5ML syrup as directed Orally 0 Active escitalopram 20 mg oral tablet (20 sources) Serotonin Reuptake Inhibitor Start: 10-17-2023 escitalopram Refills(s) 0 Start Date: 10/17/23 Status: Ordered Start: 07-15-2023 take 10 mg by mouth twice harleen y Escitalopram Oxalate 20 mg tablet Active 10 MG PO Twice daily July 15, 2023 1:00am Start: 07-15-2023 Escitalopram O xalate Active MG TABLET July 15, 2023 1:00am Start: 07-06-2023 End: 07-05-2024 take 1 tablet by mouth at bedtime escitalopram (Lexapro) 20 MG tablet Indications: Reactive depression (CMS/HCC) Take 1 tablet (20 mg) by mouth at bedtime 90 tablet 3 05/26/2024 Active famotidine 20 mg oral tablet (20 sources) Histamine-2 Receptor Antagonist Start: 04-24-2019 End: 06-17-2024 take 1 tablet by mouth in the morning famotidine (Pepcid) 20 MG tablet Indications: GERD without esophagitis TAKE 1 TABLET BY MOUTH IN THE MORNING 90 tablet 06/17/2024 Active ferrous gluconate 256 mg oral tablet (1 source) Start: 06-18-2020 take 2 tablets by mouth once daily ferrous gluconate 256 mg (28 mg elemental iron) oral tablet 2, Oral, Daily, # 100 tab(s), Refills(s) 0 Start Date: 06/18/20 Status: Ordered Fish Oils (20 sources) omega-3 (Fish Oi l) 1200 MG capsule 1 capsule 1 (one) time each day at the same time. Active omega-3 (Fish Oi l) 1200 MG capsule 1 capsule 1 (one) time each day at the same time. 0 Active fluticasone propionate 0.05 mg/actuat metered dose nasal spray (1 source) Corticosteroid Start: 06-18-2020 Flonase Allerg y Relief 50 mcg/inh nasal spray = 2 spray(s), Nasal, Daily, Refills(s) 0 Start Date: 06/18/20 Status: Ordered furosemide 20 mg oral tablet (20 sources) Loop Diuretic Start: 06-07-2024 take 10 mg by mouth twice daily Furosemide 20 mg tablet Active 10 MG PO Twice daily June 07, 2024 1:00am Start: 10-17-2023 furosemide Ref ills(s) 0 Start Date: 10/17/23 Status: Ordered Start: 06-25-2023 End: 06-26-2024 take 1 tablet by mouth once daily furosemide (Lasix) 20 MG tablet Indications: Essential hypertension (CMS/HCC) , Controlled type 2 diabetes mellitus with diabetic polyneuropathy, without long-term current use of insulin (CMS/[facility]) TAKE 1 TABLET BY MOUTH EVERY DAY 90 tablet 3 06/26/2024 Active HYDROcodone (2 sources) Opioid Agonist Start: 10-17-2023 hydrocodone Refills(s) 0 Start Date: 10/17/23 Status: Ordered lisinopril 20 mg oral tablet (20 sources) Angiotensin Converting Enzyme Inhibitor Start: 06-07-2024 take 5 mg by mouth twice daily Lisinopril 20 mg tablet Active 5 MG PO Twice daily June 07, 2024 1:00am Start: 06-07-2024 take 1 tablet by giuseppe once daily Lisinopril 20 mg tablet Active 20 MG PO Daily June 07, 2024 12:00am Start: 01-04-2024 take 0.25 tablet by mouth twice daily lisinopril 20 MG tablet Indications: Essential hypertension ([facility]/HCC) TAKE 1/4 TABLET BY MOUTH TWICE DAILY for 90 45 tablet 3 01/04/2024 Active Start: 06-18-2020 take 0.25 tablet by mouth twice daily lisinopril 20 MG tablet Indications: Essential hypertension (CMS/HCC) TAKE 1/4 TABLET BY MOUTH TWICE DAILY for 90 40 tablet 3 04/12/2023 Active Start: 05-19-2019 End: 06-07-2024 take 1 tablet by mouth twice daily Lisinopril 5 mg Tablet Discontinued 5 MG PO Twice daily 60 May 19, 2019 1:00am June 07, 2024 2:49pm Start: 04-24-2019 End: 05-20-2019 Lisinopril 20 mg tablet Disc ontinued 0 .ROUTE .COMPLEX April 24, 2019 12:00am May 20, 2019 9:50am 5 mg AM and 10mg PM Start: 04-24-2019 End: 05-20-2019 Lisinopril Discontinued 0 .R OUTE .COMPLEX April 24, 2019 12:00am May 20, 2019 9:50am 5 mg AM and 10mg PM take 1 tablet by giuseppe th every twenty-four hours Lisinopril 20 MG 1 tablet Orally Once a day for 30 day(s) Active metFORMIN hydrochloride 500 mg oral tablet (20 sources) Biguanide Start: 10-09-2023 End: 10-08-2024 take 1 tablet by mouth once daily metFORMIN (Glucophage) 500 MG tablet Indications: Controlled type 2 diabetes mellitus with diabetic polyneuropathy, without long-term current use of insulin (CMS/HCC) Take 1 tablet (500 mg) by mouth 1 (one) time each day at the same time 90 tablet 3 10/09/2023 Active Start: 06-18-2020 take 0.5 tablet by m outh once daily metformin 500 mg ER Tab 0.5, Oral, Daily, Refills(s) 0 Start Date: 06/18/20 Status: Ordered Start: 04-24-2019 End: 06-07-2024 Metformin 500 mg Tablet Disc ontinued 250 MG PO Daily May 19, 2019 1:00am June 07, 2024 2:55pm Start: 04-24-2019 End: 05-20-2019 take 250 mg by mouth once daily Metformin Active 250 M G PO Daily May 19, 2019 1:00am metFORMIN (Gluco phage) 500 MG tablet 1 (one) time each day at the same time. 0 Active Lloyd 9-Jac-Bem-Fish Oil (Fish Oil) 1,200 (144-216) mg capsule (7 sources) Start: 06-07-2024 take 1 capsule by mouth once daily Lloyd 8-Vbc-Gon-Fish Oil (Fish Oil) 1,200 (144-216) mg capsule Active 1 CAP PO Daily June 07, 2024 1:00am Start: 06-07-2024 take 1 capsule by mo uth once daily Lloyd 7-Nvj-Yet-Fish Oil (Fish Oil) 1,200 (144-216) mg capsule Active 1 CAP PO Daily June 07, 2024 12:00am Start: 06-07-2024 Lloyd 3-Dha-Ep a-Fish Oil (Fish Oil) 1,200 (144-216) mg capsule Active CAP PO June 07, 2024 12:00am oxyCODONE hydrochloride 5 mg oral tablet (20 sources) Opioid Agonist Start: 09-22-2024 take 1 tablet by mouth every four hours as needed for pain Oxycodone 5 mg tablet Active 5 MG PO Q4H as needed for Pain 42 7 September 22, 2024 dispense 42 (forty-two) tablets diagnosis Z96.659 Start: 09-21-2024 take 1 tablet by giuseppe th every four hours as needed oxyCODONE (Roxicodone) 5 MG immediate release tablet 1 tablet as needed Orally q4 hours for 30 days 09/21/2024 Active Start: 09-11-2024 End: 09-11-2024 take 1 tablet by mouth every four hours as needed for pain Oxycodone 5 mg tablet Discontinued 5 MG PO Q4H as needed for Pain 42 September 11, 2024 September 11, 2024 1:29pm Start: 09-11-2024 End: 09-11-2024 take 1 tablet by mouth every four hours as needed for pain Oxycodone 5 mg tablet Discontinued 5 MG PO Q4H as needed for Pain 42 September 11, 2024 September 11, 2024 1:37pm Start: 09-11-2024 End: 09-22-2024 take 1 tablet by mouth every four hours as needed for pain Oxycodone 5 mg tablet Discontinued 5 MG PO Q4H as needed for Pain 42 September 11, 2024 September 22, 2024 1:25pm Start: 05-19-2019 End: 04-05-2020 take 1 tablet by mouth every four hours as needed for pain Oxycodone 5 mg Tablet Discontinued 5 MG PO Every 4 hours as needed for Pain 40 7 May 19, 2019 April 05, 2020 7:53pm Start: 05-19-2019 End: 04-05-2020 take 2 tablets by mouth every four hours as needed for pain Oxycodone 5 mg Tablet Discontinued 10 MG PO Every 4 hours as needed for Pain 0 May 19, 2019 April 05, 2020 7:53pm Start: 05-19-2019 End: 04-05-2020 take 10 mg by mouth every four hours Oxycodone Discontinued 10 MG PO Every 4 hours 0 May 19, 2019 April 05, 2020 7:53pm phenazopyridine hydrochloride 100 mg oral tablet (1 source) Start: 10-01-2023 End: 10-04-2023 take 1 tablet by mouth three times daily Pyridium 100 mg Tab 100 mg = 1 tab(s), Oral, TID, X 3 day(s), # 9 tab(s), Refills(s) 0, Pharmacy: [facility]/pharmacy #[id number], 175, cm, 10/01/23 5:36:00 EDT, Height/Length Dosing, 55, kg, 10/01/23 5:36:00 EDT, Weight Dosing Start Date: 10/01/23 Stop Date: 10/04/23 Status: Ordered simvastatin 40 mg oral tablet (20 sources) HMG-CoA Reductase Inhibitor Start: 04-05-2020 End: 06-13-2024 take 1 tablet by mouth once daily simvastatin (Zocor) 40 MG tablet Indications: Hypercholesteremia (CMS/HCC) , Essential hypertension (CMS/HCC) Take 1 tablet (40 mg) by mouth 1 (one) time each day at the same time. 90 tablet 3 06/14/2023 Active Start: 04-05-2020 Simvastatin 40 mg tablet Active 20 MG PO Daily at bedtime April 04, 2020 11:00pm Start: 04-05-2020 take 20 mg by mouth once daily at bedtime Simvastatin Active 20 MG PO Daily at bedtime April 05, 2020 12:00am Start: 04-05-2020 take 20 mg by mouth twice harleen y Simvastatin Active 20 MG PO Twice daily April 04, 2020 11:00pm Start: 04-24-2019 End: 05-20-2019 take 1 tablet by mouth twice daily Simvastatin 20 mg Tablet Discontinued 20 MG PO Twice daily April 24, 2019 12:00am May 20, 2019 9:50am warfarin sodium 4 mg oral tablet (14 sources) Vitamin K Antagonist Start: 06-18-2020 warfarin 4 mg Tab Refills(s) 0 Start Date: 06/18/20 Status: Ordered Start: 05-31-2020 End: 07-15-2023 take 1 tablet by mouth once daily Warfarin 5 mg tablet Discontinued 5 MG PO Daily May 31, 2020 1:00am July 15, 2023 4:00pm Zofran ODT 4 mg Tab-Dis (1 source) Start: 07-22-2021 take 1 tablet by mouth every eight hours Zofran ODT 4 mg Tab-Dis 4 mg = 1 tab(s), Oral, q8hr, # 12 tab(s), Refills(s) 0, Pharmacy: [id number], 144, cm, 07/22/21 18:14:00 EST, Height/Length Dosing, 55.9, kg, 07/22/21 18:14:00 EST, Weight Dosing Start Date: 07/22/21 Status: Ordered Completed/Discontinued Medications Medication Drug Class(es) Dates Sig (Normalized) Sig (Original) benzonatate 200 mg oral capsule (20 sources) Non-narcotic Antitussive Start: 06-18-2020 End: 08-22-2024 take 1 capsule by mouth three times daily as needed for cough Benzonatate 200 mg capsule Discontinued 200 MG PO Three times daily as needed for cough 14 05June 07, 2024 1:00am August 22, 2024 2:52pm Calcium Carbonate-Vitamin D3 (Oyster Shell Calcium-Vit D3) 500 mg(1,250mg) -200 unit tablet (12 sources) Start: 04-05-2020 End: 07-15-2023 take 1 [...] 2023 3:00pm castor oil 0.788 mg/mg / [place] balsam 0.087 mg/mg topical ointment (13 sources) Standardized Chemical Allergen Start: 05-19-2019 End: 04-05-2020 Balsam [place] Oil (Venelex) Ointment Discontinued 1 APPLIC TOPICAL Twice daily as needed for Skin Irritation May 19, 2019 1:00am April 05, 2020 7:50pm cephalexin 500 mg oral capsule (11 sources) Cephalosporin Antibacterial Start: 08-21-2024 End: 09-09-2024 take 1 capsule by mouth twice daily Cephalexin 500 mg capsule Discontinued 500 MG PO Twice daily August 22, 2024 1:00am September 09, 2024 7:25am Start: 10-01-2023 End: 10-08-2023 take 1 capsule by mouth every twelve hours Keflex 500 mg Cap 500 mg = 1 cap(s), Oral, q12hr, X 7 day(s), # 14 cap(s), Refills(s) 0, Pharmacy: [facility]/pharmacy #[id number], 175, cm, 10/01/23 5:36:00 EDT, Height/Length Dosing, 55, kg, 10/01/23 5:36:00 EDT, Weight Dosing Start Date: 10/01/23 Stop Date: 10/08/23 Status: Ordered cholecalciferol 0.025 mg oral tablet (2 sources) Vitamin D End: 08-14-2023 cholecalciferol (Vitamin D3) 25 MCG (1000 UT) tablet 1 (one) time each day at the same time. 0 08/14/2023 Discontinued diclofenac sodium 0.01 mg/mg topical gel (20 sources) Nonsteroidal Anti-inflammatory Drug Start: 04-05-2020 End: 07-15-2023 apply 2 g topically once daily as needed for pain Diclofenac Sodium 1 % gel Discontinued 2 GM TOPICAL Daily as needed for shoulder pain April 05, 2020 7:53pm July 15, 2023 4:00pm Start: 04-05-2020 End: 07-15-2023 apply 2 g topically once daily Diclofenac Sodium Disco ntinued 2 GM TOPICAL Daily April 05, 2020 7:53pm July 15, 2023 4:00pm Start: 05-19-2019 End: 04-05-2020 apply 2 g topically three times daily as needed for pain Diclofenac Sodium 1 % Gel Discontinued 2 GM TOPICAL Three times daily as needed for shoulder pain May 19, 2019 1:00am April 05, 2020 7:54pm Start: 05-19-2019 End: 04-05-2020 apply 2 g topically three times daily Diclofenac Sodium Discontinued 2 GM TOPICAL Three times daily May 19, 2019 1:00am April 05, 2020 7:54pm docusate sodium 100 mg oral capsule (20 sources) Start: 04-05-2020 End: 07-15-2023 take 1 capsule by mouth once daily Docusate Sodium 100 mg capsule Discontinued 100 MG PO Daily April 05, 2020 7:53pm July 15, 2023 4:00pm Start: 04-28-2019 End: 04-05-2020 take 1 capsule by mouth twice daily Docusate Sodium 100 mg Capsule Discontinued 100 MG PO Twice daily 60 May 19, 2019 1:00am April 05, 2020 7:54pm ezetimibe 10 mg oral tablet (20 sources) Dietary Cholesterol Absorption Inhibitor Start: 04-05-2020 End: 07-15-2023 take 1 tablet by mouth once daily Ezetimibe 10 mg Tablet Discontinued 10 MG PO Daily April 05, 2020 12:00am July 15, 2023 4:00pm Start: 04-24-2019 End: 05-20-2019 take 1 tablet by mouth at bedtime Ezetimibe (Zetia) 10 mg Tablet Discontinued 10 MG PO Bedtime April 24, 2019 12:00am May 20, 2019 9:50am ferrous sulfate 324 mg delayed release oral tablet (20 sources) Start: 04-05-2020 End: 05-31-2020 take 1 tablet by mouth once Ferrous Sulfate 324 mg (65 mg iron) tablet,delayed release (DR/EC) Discontinued 324 MG PO every Sunday, Sunday, and Sunday April 05, 2020 7:53pm May 31, 2020 9:19am Start: 04-28-2019 End: 04-05-2020 take 1 tablet by mouth twice daily Ferrous Sulfate 324 mg (65 mg iron) Tablet,Delayed Release (Dr/Ec) Discontinued 324 MG PO Twice daily 60 May 19, 2019 1:00am April 05, 2020 7:54pm lanolin 0.157 mg/mg / menthol 0.0044 mg/mg / petrolatum 0.24 mg/mg / zinc oxide 0.206 mg/mg topical ointment (2 sources) End: 08-14-2023 Menthol-Zinc Oxide (Calmoseptine) 0.44-20.6 % ointment as directed Externally 0 08/14/2023 Discontinued lidocaine 0.05 mg/mg medicated patch (20 sources) Antiarrhythmic, Amide Local Anesthetic Start: 09-17-2023 End: 10-17-2023 apply 1 dose topically once daily Lidocaine Discontinued 2 PATCH TOPICAL Daily September 17, 2023 1:00am October 17, 2023 8:04am leave on most painful area for up to 12 hrs Start: 04-06-2021 End: 08-04-2024 apply 1 dose topically once daily Lidocaine 5 % adhesive patch,medicated Discontinued 1 PATCH TOPICAL Daily June 09, 2024 4:23pm August 04, 2024 4:26pm leave on most painful area for up to 12 hrs Start: 04-06-2021 Lidocaine 5 % 1 patch remove after 12 hours Externally Once a day for 30 days Mar, Not-Taking/PRN Start: 04-06-2021 Lidocaine 5 % 1 patch remove after 12 hours Externally Once a day for 30 days Mar, Active Lidocaine 5 % adhesive patch,medicated (7 sources) Start: 09-17-2023 End: 10-17-2023 apply 1 dose topically once daily Lidocaine 5 % adhesive patch,medicated Discontinued 2 PATCH TOPICAL Daily September 17, 2023 1:00am October 17, 2023 8:04am leave on most painful area for up to 12 hrs Start: 09-17-2023 End: 10-17-2023 apply 1 dose topically once daily Lidocaine 5 % adhesive patch,medicated Discontinued 2 PATCH TOPICAL Daily September 17, 2023 12:00am October 17, 2023 7:04am leave on most painful area for up to 12 hrs LORazepam 0.5 mg oral tablet (20 sources) Benzodiazepine Start: 08-22-2024 End: 09-11-2024 take 1 tablet by mouth once daily as needed for anxiety Lorazepam 0.5 mg tablet Discontinued 0.5 MG PO Daily as needed for anxiety 0 5 September 11, 2024 1:29pm September 11, 2024 1:37pm Start: 03-21-2024 End: 08-21-2024 take 1 tablet by mouth twice daily as needed for anxiety LORazepam (Ativan) 0.5 MG tablet Indications: Anxiety Take 1 tablet (0.5 mg) by mouth 2 (two) times a day as needed for anxiety 10 tablet 08/21/2024 Active magnesium hydroxide 80 mg/ml oral suspension (13 sources) Start: 04-28-2019 End: 05-20-2019 take 1 mL by mouth once daily as needed for constipation Magnesium Hydroxide (Milk Of Magnesia) 400 mg/5 mL Suspension Discontinued 30 ML PO Daily as needed for Constipation 0 April 28, 2019 12:00am May 20, 2019 9:50am metoprolol tartrate 25 mg oral tablet (13 sources) beta-Adrenergic Panchito Start: 05-19-2019 End: 04-05-2020 take 1 tablet by mouth twice daily Metoprolol Tartrate 25 mg Tablet Discontinued 25 MG PO Twice daily May 19, 2019 1:00am April 05, 2020 7:52pm omeprazole 20 mg delayed release oral capsule (13 sources) Proton Pump Inhibitor Start: 05-19-2019 End: 04-05-2020 take 2 capsules by mouth once daily Omeprazole 20 mg Capsule,Delayed Release(Dr/Ec) Discontinued 40 MG PO Daily May 19, 2019 1:00April 05, 2020 7:53pm Start: 05-19-2019 End: 04-05-2020 take 40 mg by mouth once daily Omeprazole Discontinued 40 MG PO Daily May 19, 2019 1:00am April 05, 2020 7:53pm ondansetron 4 mg disintegrating oral tablet (13 sources) Serotonin-3 Receptor Antagonist Start: 05-19-2019 End: 04-05-2020 take 1 tablet by mouth every four hours as needed for nausea and vomiting Ondansetron 4 mg Tablet,Disintegrating Discontinued 4 MG PO Every 4 hours as needed for Nausea And Vomiting May 19, 2019 1:00am April 05, 2020 7:53pm polyethylene glycol 3350 [id number] mg powder for oral solution (13 sources) Osmotic Laxative Start: 05-19-2019 End: 07-15-2023 Polyethylene Glycol 3350 (Miralax) 17 gram Powder In Packet Discontinued 17 GM PO Daily as needed for Constipation May 19, 2019 1:00am July 15, 2023 4:00pm rivaroxaban 15 mg oral tablet (20 sources) Factor Xa Inhibitor Start: 05-19-2019 End: 05-31-2020 take 1 tablet by mouth twice daily at mealtime Rivaroxaban (Xarelto) 15 mg tablet Discontinued 15 MG PO Twice daily April 05, 2020 12:00am May 31, 2020 9:19am must administer with a meal/food sennosides, detention 8.6 mg oral tablet (13 sources) Start: 05-19-2019 End: 04-05-2020 take 2 tablets by mouth once daily as needed Sennosides (Senna Lax) 8.6 mg Tablet Discontinued 2 TAB PO DAILY@12 as needed for If no BM in 2 days May 19, 2019 1:00am April 05, 2020 [...] Date Documented Da te Episodic/Chronic Administrative/social admission (13 sources) Other reduced mobility; Translations: [Impaired mobility and activities of daily living] 04-29-2019 Episodic Comment on above: Problem List clean-u p per request of Phys. EHR Cmte Anxiety disorders (20 sources) Anxiety; Translations: [Anxiety disorder, unspecified] Onset: 03-13-2024 03-13-2024 Chronic Chronic ulcer of skin (20 sources) Non-pressure chronic ulcer of other part of right foot limited to breakdown of skin; Translations: [Ulcer of other part of foot] Onset: 12-07-2022 12-07-2022 Chronic Deficiency and other anemia (13 sources) Anemia; Translations: [Anemia, unspecified] 04-29-2019 Episodic Comment on above: Problem List clean-u p per request of Phys. EHR Cmte Diabetes mellitus with complications (20 sources) Type 2 diabetes mellitus with diabetic polyneuropathy; Translations: [Type 2 diabetes mellitus] Onset: 03-28-2021 Chronic Diabetes mellitus without complication (16 sources) Diabetes mellitus; Translations: [Type 2 diabetes mellitus without complications] 04-29-2019 Chronic Diseases of white blood cells (1 source) Lymphocytopenia; Translations: [Lymphocytopenia] Onset: 10-24-2017 Chronic Disorders of lipid metabolism (20 sources) Pure hypercholesterolemia, unspecified; Translations: [Hyperlipidemia] Onset: 04-02-2021 04-29-2019 Chronic Esophageal disorders (20 sources) Gastro-esophageal reflux disease without esophagitis; Translations: [Gastroesophageal reflux disease] Onset: 04-02-2021 04-29-2019 Chronic Essential hypertension (20 sources) Essential (primary) hypertension; Translations: [Hypertensive disorder] Onset: 04-02-2021 04-29-2019 Chronic Fracture of neck of femur (hip) (20 sources) Fracture of unspecified part of neck of left femur, subsequent encounter for closed fracture with routine healing; Translations: [Subcapital fracture of neck of femur] Onset: 04-06-2021 Resolved: 06-29-2021 Episodic Comment on above: Problem List clean-u p per request of Phys. EHR Cmte Genitourinary symptoms and ill-defined conditions (20 sources) History of urinary tract infection; Translations: [Personal history of urinary (tract) infections] Onset: 11-03-2023 11-03-2023 Episodic Immunizations and screening for infectious disease (2 sources) Needs influenza immunization; Translations: [Encounter for immunization] 04-23-2024 Episodic Malaise and fatigue (10 sources) Asthenia; Translations: [Weakness] 03-10-2024 Episodic Mood disorders (20 sources) Reactive depression (situational); Translations: [Major depressive disorder, single episode, unspecified] Onset: 12-07-2022 12-07-2022 Chronic Nausea and vomiting (13 sources) Nausea and vomiting; Translations: [Nausea with vomiting, unspecified] 04-29-2019 Episodic Comment on above: Problem List clean-u p per request of Phys. EHR Cmte Open wounds of head; neck; and trunk (13 sources) Tear of skin; Translations: [Skin tear] 07-23-2020 Episodic Comment on above: Problem List clean-u p per request of Phys. EHR Cmte Osteoarthritis (20 sources) Osteoarthritis of right knee joint; Translations: [Unilateral primary osteoarthritis, right knee] Onset: 04-06-2021 Resolved: 10-05-2021 Chronic Osteoporosis (20 sources) Osteoporosis; Translations: [Age-related osteoporosis without current pathological fracture] Onset: 12-07-2022 12-07-2022 Chronic Other aftercare (4 sources) Post-discharge follow-up; Translations: [Encounter for follow-up examination after completed treatment for conditions other than malignant neoplasm] Onset: 10-25-2024 10-25-2024 Episodic Other circulatory disease (20 sources) Raynaud's disease; Translations: [Raynaud's syndrome without gangrene] Onset: 12-07-2022 12-07-2022 Chronic Other connective tissue disease (1 source) History of total knee arthroplasty; Translations: [Presence of unspecified artificial knee joint] 09-09-2024 Chronic Other connective tissue disease (2 sources) Presence of unspecified artificial knee joint; Translations: [Knee joint replacement] 09-11-2024 Chronic Other connective tissue disease (1 source) Presence of right artificial knee joint; Translations: [Knee joint replacement] 09-22-2024 Chronic Other connective tissue disease (13 sources) Pain in left lower limb; Translations: [Pain in left leg] 05-31-2020 Episodic Comment on above: Problem List clean-u p per request of Phys. EHR Cmte Other connective tissue disease (13 sources) Musculoskeletal pain; Translations: [Myalgia, other site] 07-23-2020 Episodic Comment on above: Problem List clean-u p per request of Phys. EHR Cmte Other diseases of bladder and urethra (20 sources) Overactive bladder; Translations: [Overactive bladder] Onset: 12-07-2022 12-07-2022 Chronic Other gastrointestinal disorders (13 sources) Constipation; Translations: [Constipation, unspecified] 04-29-2019 Episodic Comment on above: Problem List clean-u p per request of Phys. EHR Cmte Other injuries and conditions due to external causes (13 sources) History of fall; Translations: [History of falling] 04-29-2019 Episodic Comment on above: Problem List clean-u p per request of Phys. EHR Cmte Other lower respiratory disease (7 sources) Acute lower respiratory tract infection; Translations: [Unspecified acute lower respiratory infection] 06-07-2024 Episodic Other lower respiratory disease (5 sources) Unspecified acute lower respiratory infection; Translations: [Other diseases of respiratory system, not elsewhere classified] 06-07-2024 Episodic Other nervous system disorders (20 sources) Chronic pain syndrome; Translations: [Chronic pain syndrome] Onset: 12-07-2022 08-14-2023 Chronic Other nervous system disorders (13 sources) Postoperative pain ; Translations: [Other acute postprocedural pain] 04-29-2019 Episodic Comment on above: Problem List clean-u p per request of Phys. EHR Cmte Other non-traumatic joint disorders (7 sources) Pain in left knee; Translations: [Pain in left knee M25.562] Onset: 04-06-2021 Resolved: 10-05-2021 Episodic Other non-traumatic joint disorders (20 sources) Pain in right knee; Translations: [Pain in joint, lower leg] Onset: 04-06-2021 Resolved: 10-05-2021 Episodic Other non-traumatic joint disorders (1 source) Shoulder pain; Translations: [Pain in right shoulder] 05-05-2019 Episodic Other non-traumatic joint disorders (13 sources) Hip pain; Translations: [Pain in left hip] 04-25-2019 Episodic Comment on above: Problem List clean-u p per request of Phys. EHR Cmte Other non-traumatic joint disorders (15 sources) Pain in right shoulder; Translations: [Right shoulder pain] Episodic Comment on above: Problem List clean-u p per request of Phys. EHR Cmte Other screening for suspected conditions (not mental disorders or infectious disease) (20 sources) Encounter for screening mammogram for malignant neoplasm of breast; Translations: [Protein level - finding] Onset: 02-23-2022 Episodic Comment on above: Problem List clean-u p per request of Phys. EHR Cmte Other upper respiratory infections (20 sources) Acute upper respiratory infection; Translations: [Acute upper respiratory infection, unspecified] Onset: 08-21-2024 07-15-2023 Episodic Pathological fracture (13 sources) Pathological fracture of femur due to osteoporosis; Translations: [Age-related osteoporosis with current pathological fracture, left femur, initial encounter for fracture] 04-25-2019 Episodic Comment on above: Problem List clean-u p per request of Phys. EHR Cmte Phlebitis; thrombophlebitis and thromboembolism (20 sources) Acute deep vein thrombosis of lower limb; Translations: [Acute embolism and thrombosis of unspecified deep veins of unspecified lower extremity] 04-05-2020 Episodic Comment on above: Problem List clean-u p per request of Phys. EHR Cmte Residual codes; unclassified (1 source) Family history of malignant neoplasm of breast; Translations: [FAMILY HX MALIG NEOPLASM OF BREAST] Onset: 02-24-2022 Episodic Residual codes; unclassified (13 sources) Patient encounter status; Translations: [Encounter for prophylactic measures, unspecified] 04-29-2019 Episodic Comment on above: Problem List clean-u p per request of Phys. EHR Cmte Residual codes; unclassified (2 sources) Edema, generalized; Translations: [Generalized edema] Onset: 10-22-2024 10-22-2024 Episodic Spondylosis; intervertebral disc disorders; other back problems (1 source) Cervicalgia; Translations: [Cervicalgia] Onset: 09-03-2024 Episodic Unclassified (1 source) Unknown / UNK(Unknown) Onset: 11-07-2017 Urinary tract infections (1 source) Urinary tract infectious disease; Translations: [Urinary tract infection, site not specified] Onset: 10-01-2023 Episodic Past or Other Problems Problem Classification Problem Date Documented Date Episodic/Chronic Mood disorders (20 sources) Mood disorders Onset: 03-27-2023 03-27-2023 Mycoses (20 sources) Onychomycosis; Translations: [Tinea unguium] Onset: 12-07-2022 12-07-2022 Episodic Nonspecific chest pain (11 sources) Atypical chest pain; Translations: [Other chest pain] Onset: 03-10-2024 03-10-2024 Episodic Other acquired deformities (20 sources) Leg length inequality; Translations: [Unequal limb length (acquired), unspecified site] Onset: 12-07-2022 12-07-2022 Episodic Other skin disorders (20 sources) Callosity; Translations: [Corns and callosities] Onset: 12-07-2022 12-07-2022 Episodic Residual codes; unclassified (2 sources) Other specified postprocedural states; Translations: [Other specified postprocedural states Z98.890] Onset: 04-06-2021 Resolved: 06-29-2021 Episodic Unclassified (1 source) Lumbar pain M54.50 Onset: 06-29-2021 Resolved: 06-29-2021 Results Test Name Value Interpretation Reference Range Facility Basic Metabolic Panelon 08-17 Anion gap [Moles/Vol] 7.1 mmol/L Normal 6.0-15.0 [facility] Comment on above: Performed By: #### B MP, CBC #### [address] Calcium [Mass/Vol] 8.3 mg/dL Low 8.6-10.3 [facility] Comment on above: Performed By: #### B MP, CBC #### [facility] [address] Chloride [Moles/Vol] 102 mmol/L Normal 98-107 [facility] Comment on above: Performed By: #### B MP, CBC #### [address] CO2 [Moles/Vol] 27.0 mmol/L Normal 21.0-31.0 [facility] Comment on above: Performed By: #### B MP, CBC #### [address] Creatinine [Mass/Vol] 0.48 mg/dL Low 0.60-1.20 [facility] Comment on above: Performed By: #### B MP, CBC #### [place] [address] [place] Creatinine Clr Calc Pharmacy 48.10 Normal [facility] Comment on above: Result Comment: PERF ORMED BY: [place] [address] PATHOLOGIST SHOE PULLER MELANIE ALMAZAN M.D. Performed By: #### B MP, CBC #### [place] [address] [place] GFR/1.73 sq M.predicted MDRD (S/P/Bld) [Vol rate/Area] mL/min/{1.73_m2} Normal [facility] Comment on above: Performed By: #### B MP, CBC #### [place] [address] [place] Glucose [Mass/Vol] 91 mg/dL Normal 70-100 [facility] Comment on above: Result Comment: [place] Glucose Reference Range is dependent on time and content of last meal. Glucose of more than 200 mg/dL in a nonstressed, ambulatory subject supports the diagnosis of Diabetes Mellitus. ADA recommended reference range Performed By: #### B MP, CBC #### [facility] [address] Potassium [Moles/Vol] 4.1 mmol/L Normal 3.5-5.1 [facility] Comment on above: Performed By: #### B MP, CBC #### [facility] [address] [place] [address] [place] Sodium [Moles/Vol] 132 mmol/L Low 136-145 [facility] Comment on above: Performed By: #### B MP, CBC #### [facility] [address] Urea nitrogen [Mass/Vol] 19 mg/dL Normal 7-25 [facility] Comment on above: Performed By: #### B MP, CBC #### [facility] [address] [place] [address] [place] Basophils Auto (Bld) [#/Vol] Ordered By: João Soto on 09-11-2024 Basophils (Bld) [#/Vol] Automated basophil count 0.0-0.2 [facility] Basophils/100 WBC Auto (Bld) Ordered By: João Soto on 09-11-2024 Basophils/100 WBC (Bld) Automated basophil % . [facility] Calcium [Mass/volume] in Ser um or PlasmaOrdered By: João Soto on 09-11-2024 Calcium [Mass/Vol] Calcium [Mass/volume ] in Serum or Plasma Low 8.6-10.3 [facility] Carbon dioxide, total [Moles /volume] in Serum or PlasmaOrdered By: João Soto on 09-11-2024 CO2 [Moles/Vol] Carbon dioxide, tota l [Moles/volume] in Serum or Plasma 21.0-31.0 [facility] Chloride [Moles/volume] in S ozzie or PlasmaOrdered By: João Soto on 09-11-2024 Chloride [Moles/Vol] Chloride [Moles/vol ume] in Serum or Plasma 98-107 [facility] Complete Blood Count Auto Di ffon 09-11-2024 Basophils (Bld) [#/Vol] 0.0 10*3/uL Normal 0.0-0.2 [facility] Comment on above: Result Comment: PERF ORMED BY: [place] [address] PATHOLOGIST SHOE PULLER MELANIE ALMAZAN M.D. Performed By: #### B MP, CBC #### [address] Basophils/100 WBC (Bld) 0.6 % Normal . [facility] Comment on above: Performed By: #### B MP, CBC #### [address] Eosinophils (Bld) [#/Vol] 0.3 10*3/uL Normal 0.0-0.45 [facility] Comment on above: Performed By: #### B MP, CBC #### [address] Eosinophils/100 WBC (Bld) 4.6 % Normal . [facility] Comment on above: Performed By: #### B MP, CBC #### [address] Erythrocyte distribution width (RBC) [Ratio] 13.8 % Normal 11.9-15.3 [facility] Comment on above: Performed By: #### B MP, CBC #### [address] Hematocrit (Bld) [Volume fraction] 29.7 % Low 34.0-46.4 [facility] Comment on above: Performed By: #### B MP, CBC #### [address] Hemoglobin (Bld) [Mass/Vol] 10.2 g/dL Low 11.8-15.4 [facility] Comment on above: Performed By: #### B MP, CBC #### [address] Lymphocytes (Bld) [#/Vol] 0.9 10*3/uL Low 1.00-4.8 [facility] Comment on above: Performed By: #### B MP, CBC #### [address] Lymphocytes/100 WBC (Bld) 16.6 % Normal . [facility] Comment on above: Performed By: #### B MP, CBC #### [address] MCH (RBC) [Entitic mass] 29.6 pg Normal 24.7-34.3 [facility] Comment on above: Performed By: #### B MP, CBC #### [address] MCV (RBC) [Entitic vol] 86.4 fL Normal 80-100 [facility] Comment on above: Performed By: #### B MP, CBC #### [address] Mean Corpuscular HGB Conc 34.3 g/dL Normal 32.0-35.0 [facility] Comment on above: Performed By: #### B MP, CBC #### [address] Monocytes (Bld) [#/Vol] 0.6 10*3/uL Normal 0.0-0.8 [facility] Comment on above: Performed By: #### B MP, CBC #### [place] [address] [place] Monocytes/100 WBC (Bld) 11.4 % Normal . [facility] Comment on above: Performed By: #### B MP, CBC #### [address] Neutrophils (Bld) [#/Vol] 3.7 10*3/uL Normal 1.8-7.7 [facility] Comment on above: Performed By: #### B MP, CBC #### [facility] [address] Neutrophils/100 WBC (Bld) 66.8 % Normal . [facility] Comment on above: Performed By: #### B MP, CBC #### [facility] [address] NRBC% 0.0 /100{WBC} Normal 0-0.5 [facility] Comment on above: Performed By: #### B MP, CBC #### [facility] [address] Platelet mean volume (Bld) [Entitic vol] 8.9 fL Normal 6.3-10.7 [facility] Comment on above: Performed By: #### B MP, CBC #### [facility] [address] [place] [address] [place] Platelets (Bld) [#/Vol] 179 10*3/uL Normal 150-450 [facility] Comment on above: Performed By: #### B MP, CBC #### [facility] [address] [place] [address] [place] RBC (Bld) [#/Vol] 3.44 10*6/uL Low 3.60-5.00 [facility] Comment on above: Performed By: #### B MP, CBC #### [facility] [address] [place] [id number] [place] WBC (Bld) [#/Vol] 5.5 10*3/uL Normal 3.8-11.6 [facility] Comment on above: Performed By: #### B MP, CBC #### [place] [id number] [place] Creatinine [Mass/volume] in Serum or PlasmaOrdered By: João Soto on 09-11-2024 Creatinine [Mass/Vol] Creatinine [Mass/v olume] in Serum or Plasma Low 0.60-1.20 [facility] Eosinophils Auto (Bld) [#/Vo l]Ordered By: João Soto on 09-11-2024 Eosinophils (Bld) [#/Vol] Automated eosinophil count 0.0-0.45 [facility] Eosinophils/100 WBC Auto (Bl d)Ordered By: João Soto on 09-11-2024 Eosinophils/100 WBC (Bld) Automated eosinophil % . [facility] Erythrocyte distribution wid th Auto (RBC) [Ratio]Ordered By: João Soto on 09-11-2024 Erythrocyte distribution width (RBC) [Ratio] Erythrocyte distribution width [Ratio] by Automated count 11.9-15.3 [facility] Glucose Glucometer (BldC) [M ass/Vol]Ordered By: João Soto on 09-11-2024 Glucose [Mass/Vol] Capillary blood gluc ose measurement by glucometer (mass/volume) [facility] Comment on above: Random Glucose Refer ence Range is dependent on time and content of last meal. Glucose of more than 200 mg/dL in a nonstressed, ambulatory subject supports the diagnosis of Diabetes Mellitus. Glucose Poct Glucometerson 0 09-11-2024 Glucose [Mass/Vol] 112 mg/dL Normal [facility] Comment on above: Result Comment: [place] om Glucose Reference Range is dependent on time and content of last meal. Glucose of more than 200 mg/dL in a nonstressed, ambulatory subject supports the diagnosis of Diabetes Mellitus. PERFORMED BY: [place] [address] PATHOLOGIST SHOE PULLER MELANIE ALMAZAN M.D. Performed By: #### G LULS #### Point of Care testing , Glucose [Mass/Vol] 106 mg/dL Normal [facility] Comment on above: Result Comment: [place] Glucose Reference Range is dependent on time and content of last meal. Glucose of more than 200 mg/dL in a nonstressed, ambulatory subject supports the diagnosis of Diabetes Mellitus. PERFORMED BY: [place] [address] PATHOLOGIST SHOE PULLER MELANIE ALMAZAN M.D. Performed By: #### B MP, CBC #### [address] Glucose [Mass/volume] in Ser um or PlasmaOrdered By: João Soto on 09-11-2024 Glucose [Mass/Vol] Glucose [Mass/volume ] in Serum or Plasma 70-100 [facility] Comment on above: ADA recommended refe rence rangeRandom Glucose Reference Range is dependent on time and content of last meal. Glucose of more than 200 mg/dL in a nonstressed, ambulatory subject supports the diagnosis of Diabetes Mellitus. Hematocrit Auto (Bld) [Volum e fraction]Ordered By: João Soto on 09-11-2024 Hematocrit (Bld) [Volume fraction] Hematocrit [Volume Fraction] of Blood by Automated count Low 34.0-46.4 [facility] Hemoglobin [Mass/volume] in BloodOrdered By: João Soto on 09-11-2024 Hemoglobin (Bld) [Mass/Vol] Hemoglobin [Mass/volume] in Blood Low 11.8-15.4 [facility] Leukocytes [#/volume] correc venkata for nucleated erythrocytes in Blood by Automated counOrdered By: João Soto on 09-11-2024 WBC corrected for nucl RBC Auto (Bld) [#/Vol] Leukocytes [#/volume] corrected for nucleated erythrocytes in Blood by Automated coun 3.8-11.6 [facility] Lymphocytes Auto (Bld) [#/Vo l]Ordered By: João Soto on 09-11-2024 Lymphocytes (Bld) [#/Vol] Lymphocytes [#/volume] in Blood by Automated count Low 1.00-4.8 [facility] Lymphocytes/100 WBC Auto (Bl d)Ordered By: João Soto on 09-11-2024 Lymphocytes/100 WBC (Bld) Lymphocytes/100 leukocytes in Blood by Automated count . [facility] MCH Auto (RBC) [Entitic mass ]Ordered By: João Soto on 09-11-2024 MCH (RBC) [Entitic mass] MCH [Entitic mass] by Automated count 24.7-34.3 [facility] MCHC Auto (RBC) [Mass/Vol]Or dered By: João Soto on 09-11-2024 MCHC (RBC) [Mass/Vol] MCHC [Mass/volume] by Automated count 32.0-35.0 [facility] MCV Auto (RBC) [Entitic vol] Ordered By: João Soto on 09-11-2024 MCV (RBC) [Entitic vol] MCV [Entitic volume] by Automated count 80-100 [facility] Monocytes Auto (Bld) [#/Vol] Ordered By: João Soto on 09-11-2024 Monocytes (Bld) [#/Vol] Automated blood monocyte count 0.0-0.8 [facility] Monocytes/100 WBC Auto (Bld) Ordered By: João Soto on 09-11-2024 Monocytes/100 WBC (Bld) Automated monocyte % . [facility] Neutrophils Auto (Bld) [#/Vo l]Ordered By: João Soto on 09-11-2024 Neutrophils (Bld) [#/Vol] Neutrophils [#/volume] in Blood by Automated count 1.8-7.7 [facility] Neutrophils/100 WBC Auto (Bl d)Ordered By: João Soto on 09-11-2024 Neutrophils/100 WBC (Bld) Automated neutrophil % . [facility] No Panel InformationOrdered By: João Soto on 09-11-2024 Estimated GFR (CKD-EPI) > 60.0 mL/Min [facility] Creatinine Clearance (Chem 48.10 [facility] Nucleated erythrocytes [Pres ence] in Blood by Automated countOrdered By: João Soto on 09-11-2024 Nucleated RBC Auto Ql (Bld) Nucleated erythrocytes [Presence] in Blood by Automated count 0-0.5 [facility] Pathology study report docum entOrdered By: Imer Connor on 09-11-2024 Pathology study [facility] Other Platelet mean volume Auto (B ld) [Entitic vol]Ordered By: João Soto on 09-11-2024 Platelet mean volume (Bld) [Entitic vol] Platelet mean volume [Entitic volume] in Blood by Automated count 6.3-10.7 [facility] Platelets Auto (Bld) [#/Vol] Ordered By: João Soto on 09-11-2024 Platelets (Bld) [#/Vol] Platelets [#/volume] in Blood by Automated count 150-450 [facility] Potassium [Moles/volume] in Serum or PlasmaOrdered By: João Soto on 09-11-2024 Potassium [Moles/Vol] Potassium [Moles/v olume] in Serum or Plasma 3.5-5.1 [facility] RBC Auto (Bld) [#/Vol]Ordere d By: João Soto on 09-11-2024 RBC (Bld) [#/Vol] Erythrocytes [#/volu me] in Blood by Automated count Low 3.60-5.00 [facility] Serum or plasma anion gap de terminationOrdered By: João Soto on 09-11-2024 Anion gap [Moles/Vol] Serum or plasma an ion gap determination 6.0-15.0 [facility] Sodium [Moles/volume] in Ser um or PlasmaOrdered By: João Soto on 09-11-2024 Sodium [Moles/Vol] Sodium [Moles/volume ] in Serum or Plasma Low 136-145 [facility] Urea nitrogen [Mass/volume] in Serum or PlasmaOrdered By: João Soto on 09-11-2024 Urea nitrogen [Mass/Vol] Urea nitrogen [Mass/volume] in Serum or Plasma 7-25 [facility] WBC Auto (Bld) [#/Vol]Ordere d By: João Soto on 09-11-2024 WBC (Bld) [#/Vol] Leukocytes [#/volume ] in Blood by Automated count 3.8-11.6 [facility] Basic Metabolic Panelon 08-17 Anion gap [Moles/Vol] 7.8 mmol/L Normal 6.0-15.0 [facility] Comment on above: Performed By: #### C BC, BMP #### [facility] [address] [place] [address] [place] Calcium [Mass/Vol] 8.7 mg/dL Normal 8.6-10.3 [facility] Comment on above: Performed By: #### C BC, BMP #### [facility] [address] [place] [id number] [place] Chloride [Moles/Vol] 101 mmol/L Normal 98-107 [facility] Comment on above: Performed By: #### C BC, BMP #### [address] CO2 [Moles/Vol] 30.6 mmol/L Normal 21.0-31.0 [facility] Comment on above: Performed By: #### C BC, BMP #### [address] Creatinine [Mass/Vol] 0.55 mg/dL Low 0.60-1.20 [facility] Comment on above: Performed By: #### C BC, BMP #### [place] [address] [place] Creatinine Clr Calc Pharmacy 47.92 Normal [facility] Comment on above: Result Comment: PERF ORMED BY: [place] [address] PATHOLOGIST SHOE PULLER MELANIE ALMAZAN M.D. Performed By: #### C BC, BMP #### [address] GFR/1.73 sq M.predicted MDRD (S/P/Bld) [Vol rate/Area] mL/min/{1.73_m2} Normal [facility] Comment on above: Performed By: #### C BC, BMP #### [address] Glucose [Mass/Vol] 102 mg/dL High 70-100 [facility] Comment on above: Result Comment: [place] Glucose Reference Range is dependent on time and content of last meal. Glucose of more than 200 mg/dL in a nonstressed, ambulatory subject supports the diagnosis of Diabetes Mellitus. ADA recommended reference range Performed By: #### C BC, BMP #### [address] Potassium [Moles/Vol] 4.4 mmol/L Normal 3.5-5.1 [facility] Comment on above: Performed By: #### C BC, BMP #### [address] Sodium [Moles/Vol] 135 mmol/L Low 136-145 [facility] Comment on above: Performed By: #### C BC, BMP #### [address] Urea nitrogen [Mass/Vol] 17 mg/dL Normal 7-25 [facility] Comment on above: Performed By: #### C BC, BMP #### [address] Complete Blood Count Auto Di ffon 09-10-2024 Basophils (Bld) [#/Vol] 0.0 10*3/uL Normal 0.0-0.2 [facility] Comment on above: Result Comment: PERF ORMED BY: [place] [address] PATHOLOGIST SHOE PULLER MELANIE ALMAZAN M.D. Performed By: #### C BC, BMP #### [address] Basophils/100 WBC (Bld) 0.1 % Normal . [facility] Comment on above: Performed By: #### C BC, BMP #### [address] Eosinophils (Bld) [#/Vol] 0.1 10*3/uL Normal 0.0-0.45 [facility] Comment on above: Performed By: #### C BC, BMP #### [address] Eosinophils/100 WBC (Bld) 1.8 % Normal . [facility] Comment on above: Performed By: #### C BC, BMP #### [address] Erythrocyte distribution width (RBC) [Ratio] 13.2 % Normal 11.9-15.3 [facility] Comment on above: Performed By: #### C BC, BMP #### [address] Hematocrit (Bld) [Volume fraction] 31.3 % Low 34.0-46.4 [facility] Comment on above: Performed By: #### C BC, BMP #### [address] Hemoglobin (Bld) [Mass/Vol] 10.7 g/dL Low 11.8-15.4 [facility] Comment on above: Performed By: #### C BC, BMP #### [address] Lymphocytes (Bld) [#/Vol] 0.7 10*3/uL Low 1.00-4.8 [facility] Comment on above: Performed By: #### C BC, BMP #### [address] Lymphocytes/100 WBC (Bld) 11.8 % Normal . [facility] Comment on above: Performed By: #### C BC, BMP #### [address] MCH (RBC) [Entitic mass] 29.7 pg Normal 24.7-34.3 [facility] Comment on above: Performed By: #### C BC, BMP #### [address] MCV (RBC) [Entitic vol] 87.2 fL Normal 80-100 [facility] Comment on above: Performed By: #### C BC, BMP #### [address] Mean Corpuscular HGB Conc 34.1 g/dL Normal 32.0-35.0 [facility] Comment on above: Performed By: #### C BC, BMP #### [address] Monocytes (Bld) [#/Vol] 0.8 10*3/uL Normal 0.0-0.8 [facility] Comment on above: Performed By: #### C BC, BMP #### [address] Monocytes/100 WBC (Bld) 12.5 % Normal . [facility] Comment on above: Performed By: #### C BC, BMP #### [address] [place] [address] [place] Neutrophils (Bld) [#/Vol] 4.6 10*3/uL Normal 1.8-7.7 [facility] Comment on above: Performed By: #### C KWAN, BMP #### [place] [address] [place] Neutrophils/100 WBC (Bld) 73.8 % Normal . [facility] Comment on above: Performed By: #### C KWAN, BMP #### [address] NRBC% 0.1 /100{WBC} Normal 0-0.5 [facility] Comment on above: Performed By: #### C KWAN, BMP #### [address] Platelet mean volume (Bld) [Entitic vol] 8.7 fL Normal 6.3-10.7 [facility] Comment on above: Performed By: #### C KWAN, BMP #### [place] [address] [place] Platelets (Bld) [#/Vol] 201 10*3/uL Normal 150-450 [facility] Comment on above: Performed By: #### C KWAN, BMP #### [place] [id number] [place] RBC (Bld) [#/Vol] 3.59 10*6/uL Low 3.60-5.00 [facility] Comment on above: Performed By: #### C KWAN, BMP #### [place] [address] [place] WBC (Bld) [#/Vol] 6.2 10*3/uL Normal 3.8-11.6 [facility] Comment on above: Performed By: #### C KWAN, BMP #### [place] [id number] [facility] Glucose Poct Glucometerson 0 09-10-2024 Glucose [Mass/Vol] 118 mg/dL Normal [facility] Comment on above: Result Comment: [place] om Glucose Reference Range is dependent on time and content of last meal. Glucose of more than 200 mg/dL in a nonstressed, ambulatory subject supports the diagnosis of Diabetes Mellitus. PERFORMED BY: [place] [address] PATHOLOGIST SHOE PULLER MELANIE ALMAZAN M.D. Performed By: #### B MP, CBC #### [place] [address] [place] Glucose [Mass/Vol] 143 mg/dL Normal [facility] Comment on above: Result Comment: [place] om Glucose Reference Range is dependent on time and content of last meal. Glucose of more than 200 mg/dL in a nonstressed, ambulatory subject supports the diagnosis of Diabetes Mellitus. PERFORMED BY: [place] [address] PATHOLOGIST SHOE PULLER MELANIE ALMAZAN M.D. Performed By: #### B MP, CBC #### [address] Glucose [Mass/Vol] 113 mg/dL Normal [facility] Comment on above: Result Comment: [place] om Glucose Reference Range is dependent on time and content of last meal. Glucose of more than 200 mg/dL in a nonstressed, ambulatory subject supports the diagnosis of Diabetes Mellitus. PERFORMED BY: [place] [address] PATHOLOGIST SHOE PULLER MELANIE ALMAZAN M.D. Performed By: #### B MP, CBC #### [place] [address] [place] Glucose [Mass/Vol] 109 mg/dL Normal [facility] Comment on above: Result Comment: [place] om Glucose Reference Range is dependent on time and content of last meal. Glucose of more than 200 mg/dL in a nonstressed, ambulatory subject supports the diagnosis of Diabetes Mellitus. PERFORMED BY: [place] [address] PATHOLOGIST SHOE PULLER MOHAMED M EL-FAKHARANY M.D. Performed By: #### G LULS #### Point of Care testing , Glucose Poct Glucometerson 0 09-09-2024 Glucose [Mass/Vol] 183 mg/dL Normal [facility] Comment on above: Result Comment: [place] Glucose Reference Range is dependent on time and content of last meal. Glucose of more than 200 mg/dL in a nonstressed, ambulatory subject supports the diagnosis of Diabetes Mellitus. PERFORMED BY: [address] [place] [address] PATHOLOGIST SHOE PULLER MELANIE ALMAZAN M.D. Performed By: #### G LULS #### Point of Care testing , Glucose [Mass/Vol] 129 mg/dL Normal [facility] Comment on above: Result Comment: [place] Glucose Reference Range is dependent on time and content of last meal. Glucose of more than 200 mg/dL in a nonstressed, ambulatory subject supports the diagnosis of Diabetes Mellitus. PERFORMED BY: [address] [place] [address] PATHOLOGIST SHOE PULLER MELANIE ALMAZAN M.D. Performed By: #### G LULS #### Point of Care testing , Glucose [Mass/Vol] 132 mg/dL Normal [facility] Comment on above: Result Comment: [place] Glucose Reference Range is dependent on time and content of last meal. Glucose of more than 200 mg/dL in a nonstressed, ambulatory subject supports the diagnosis of Diabetes Mellitus. PERFORMED BY: [address] [place] [address] PATHOLOGIST SHOE PULLER MELANIE ALMAZAN M.D. Performed By: #### G LULS #### Point of Care testing , Commemt1 Glu2: Cleaned Meter Normal [facility] Comment on above: Result Comment: PERF ORMED BY: [address] [place] [address] PATHOLOGIST SHOE PULLER MELANIE ALMAZAN M.D. Performed By: #### G LULS #### Point of Care testing , Glucose [Mass/Vol] 98 mg/dL Normal [facility] Comment on above: Result Comment: [place] Glucose Reference Range is dependent on time and content of last meal. Glucose of more than 200 mg/dL in a nonstressed, ambulatory subject supports the diagnosis of Diabetes Mellitus. Performed By: #### G BENJAMIN #### Point of Care testing , Dino 09-09-2024 L ----- Specimen: [id number] Received: 09/09/24 Status: BARBARA Reganevita Num: [id number] Spec Type: Surgical Subm Dr: João Soto DO Tissues: A Joint/Knee (RIGHT TOTAL KNEE) Procedures: Catalina HAYDEN/Princess L4, Decalcification Age/ Patient Sex Location Account Attending Physician Nata Pete 79/F 4N [id number] João Soto DO SPEC NUM: [id number] RECD: 09/09/24 STATUS: BARBARA REGANEvita NUM: [id number] LORIN: 09/09/[address] [facility] [address]: João Soto DO ENTERED: 09/09/[address] [facility] [address]: VERONICA TYPE: Surgical DEPT: S ENTERED BY: [id number] RECV BY: [id number] ORDERED: HE, Gross/Micro L4, Decalcification ORDERED: HE, Gross/Micro L4, Decalcification Pathological Diagnosis Right knee bone and tissue, total knee arthroplasty -Severe degenerative osteoarthritis displaying patchy marked articular erosion and cortical eburnation with at least mild bony remodeling, including moderate cortical to subcortical bony thickening, and at least mild to moderate osteophytic degenerations, consistent with the severe degenerative joint disease of the right knee Clinical Information R knee pain and osteoarthritis Gross Description Part A is received in formalin labeled with the patients name, date of , and right knee bone and tissue are bundy-bryant, granular bone fragments, 7.5 x 5.5 x 3 cm in aggregate with detached fragments of fibrofatty tissue, 6.5 x 4.5 x 2 cm in aggregate. The bone is consistent with portions of femoral condyle and tibial plateau. The articular surfaces are remarkable for granular degeneration and eburnation; the medullary bone is bryant, firm and uniform. The fibrofatty tissue is sectioned to reveal bundy-pink to yellow-bryant, glistening and uniform cut surfaces. A denial management representative section of the bone is submitted in a single cassette after decalcification. (1, , [id number])MEJIA Specimen: [id number] Received: 09/09/24 Status: BARBARA Lemon Num: [id number] Spec Type: Surgical Subm Dr: João Soto DO Tissues: A Joint/Knee (RIGHT TOTAL KNEE) Procedures: Catalina HAYDEN/Micro Davy, Decalcification Patient: Nata Pete [id number] (Continued) Specimen: [id number] Received: 09/09/24 (Continued) Signed (signature on file) Imer Connor MD 09/11/24 1509 Specimen: [id number] Received: 09/09/24 Status: BARBARA Lemon Num: [id number] Spec Type: Surgical Subm Dr: João Soto DO Tissues: A Joint/Knee (RIGHT TOTAL KNEE) Procedures: Catalina HAYDEN/Micro L4, Decalcification Patient: Nata Pete [id number] (Continued) Specimen: [id number] Received: 09/09/24 (Continued) Microscopic Description Microscopic examinations are performed supporting the above interpretation CPT Codes 17406 [id number] Specimen: [id number] Received: 09/09/24 Status: BARBARA Lemon Num: [id number] Spec Type: Surgical Subm Dr: João Soto DO Tissues: A Joint/Knee (RIGHT TOTAL KNEE) Procedures: JACKELYN, Gross/Micro L4, Decalcification Patient: Nata Pete [id number] (Continued) Signed (signature on file) Melecio-Tk Connor MD 09/11/24 1509 Normal [facility] No Panel InformationOrdered By: João Soto on 09-09-2024 Bedside Glucose Comment Glu2: cleaned meter [facility] X-ray reportOrdered By: Catracho Arroyo on 09-09-2024 Study report [facility] [place] [address] XRay Report Signed Patient: Nata Pete MR#: [id number] : 1945 Acct:[id number] Age/Sex: 79 / F ADM Date: 5 Loc: Room: [address] [place] [address] Type: REG [facility] Attending Dr: João Soto DO Copies to: João Soto DO~ Ordering Provider: João Soto DO Date of Service: 09/09/24 XR/XR knee RT 2V: Total or partial knee, do in PACU RIGHT KNEE - 2 views CLINICAL HISTORY: Postop right TKA COMPARISON: None FINDINGS: Soft tissues demonstrate postoperative changes. No hardware complication. XR/XR knee RT 2V IMPRESSION: NO HARDWARE COMPLICATION. Impression dictated by: Dedrick Arroyo Jr., D.OKiara09/09/2024 4:01 PM Dictation Location: [place] [address] Transcribed By: [facility] 09/09/24 1601 Dictated By: Dedrick Arroyo Jr, DO 09/09/24 1600 Signed By: 09/09/24 1601 [facility] XR knee RT 2Von 09-09-2024 XR knee RT 2V [facility] Main [place] [address] [place] [address] XRay Report Signed Patient: Nata Pete MR#: [id number] : 1945 Acct:[id number] Age/Sex: 79 / F ADM Date: 09/09/24 Loc: 4 Room: [address] [place] [address] Type: REG SDC Attending Dr: João Soto DO Copies to: João Soto DO Ordering Provider: João Soto DO Date of Service: 09/09/24 XR/XR knee RT 2V: Total or partial knee, do in PACU RIGHT KNEE - 2 views CLINICAL HISTORY: Postop right TKA COMPARISON: None FINDINGS: Soft tissues demonstrate postoperative changes. No hardware complication. XR/XR knee RT 2V IMPRESSION: NO HARDWARE COMPLICATION. Impression dictated by: Dedrick Arroyo Jr., D.O.09/09/2024 4:01 PM Dictation Location: [facility] Transcribed By: [facility] 09/09/24 1601 Dictated By: Dedrick Arroyo Jr, DO 09/09/24 1600 Signed By: 09/09/24 1601 Normal [facility] X-ray reportOrdered By: Yuriy Moran on 09-03-2024 Study report [facility] [address] [place] [address] XRay Report Signed Patient: Nata Pete MR#: [id number] : 1945 Acct:[id number] Age/Sex: 79 / F ADM Date: 5 Loc: SOXD Room: Type: REG CLI Attending Dr: João Soto DO Copies to: João Soto DO~ Ordering Provider: João Soto DO Date of Service: 09/03/24 XR/XR femur BI: M17.11 - Unilateral primary osteoarthritis, right knee ([id number]) XR/XR tibia/fibula BI: M17.11 - Unilateral primary osteoarthritis, right knee XR femur BI, XR tibia/fibula BI 09/03/2024 2:04 PM SIGNS AND SYMPTOMS: Preop right total knee arthroplasty PROTOCOL: Frontal radiographs of the bilateral femurs and bilateral tibia and fibula COMPARISON: None FINDINGS: There is severe narrowing of the weightbearing joint spaces of the knees bilaterally, right greater than left. This is most pronounced in the lateral weightbearing compartment on the right with 29.5 degrees of valgus angulation. Postoperative changes are noted in the hips bilaterally consistent with previouship fractures. The tibia and fibula are grossly intact bilaterally. XR/XR femur BI IMPRESSION: There is severe narrowing of the weightbearing joint spaces of the knees bilaterally, right greater than left. This is most pronounced in the lateral weightbearing compartment on the right with 29.5 degrees of valgus angulation. Impression dictated by: Yuriy Moran M.D.09/03/2024 11:39 PM Dictation Location: [place] [address] Transcribed By: [facility] 09/03/242338 Dictated By: Yuriy Moran II, MD 09/03/242337 Signed By: 09/03/242338 [facility] Work Phone: Study report [facility] [address] [place] [address] XRay Report Signed Patient: Nata Pete MR#: [id number] : 1945 Acct:[id number] Age/Sex: 79 / F ADM Date: 5 Loc: [facility] Room: Type: [facility] Attending Dr: João Soto DO Copies to: João Soto DO~ Ordering Provider: João Soto DO Date of Service: 09/03/24 XR/XR cerv spine AP/LAT/FLX/EXT: M54.2 - Cervicalgia XR cerv spine AP/LAT/FLX/EXT 09/03/2024 2:04 PM SIGNS AND SYMPTOMS: Right-sided neck pain radiating to right shoulder PROTOCOLS: Frontal, lateral, and flexion-extension views of the cervical spine COMPARISON: None FINDINGS: There is 5 mm of retrolisthesis of C4 upon C5 which shows no pathologic movementon flexion or extension. 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 There is preservation of the vertebral body heights. There is severe disc height loss at C3-C4, C4-C5, C5-C6, and C6-C7. There is no fracture or destructive lesion. XR/XR cerv spine AP/LAT/FLX/EXT IMPRESSION: There is 5 mm of retrolisthesis of C4 upon C5 which shows no pathologic movementon flexion or extension. 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 No fracture. Impression dictated by: Yuriy Moran M.D.09/03/2024 9:29 PM Dictation Location: [place] [address] Transcribed By: [facility] 09/03/242128 Dictated By: Yuriy Moran II, MD 09/03/242126 Signed By: 09/03/242128 [facility] Work Phone: XR cerv spine AP/LAT/FLX/EXT on 09-03-2024 XR cerv spine AP/LAT/FLX/EXT [facility] [address] [place] [address] XRay Report Signed Patient: Nata Pete MR#: [id number] : 1945 Acct:[id number] Age/Sex: 79 / F ADM Date: 09/03/24 Loc: [facility] Room: Type: [facility] Attending Dr: João Soto DO Copies to: João Soto DO Ordering Provider: João Soto DO Date of Service: 09/03/24 XR/XR cerv spine AP/LAT/FLX/EXT: M54.2 - Cervicalgia XR cerv spine AP/LAT/FLX/EXT 09/03/2024 2:04 PM SIGNS AND SYMPTOMS: Right-sided neck pain radiating to right shoulder PROTOCOLS: Frontal, lateral, and flexion-extension views of the cervical spine COMPARISON: None FINDINGS: There is 5 mm of retrolisthesis of C4 upon C5 which shows no pathologic movement on flexion or extension. 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 There is preservation of the vertebral body heights. There is severe disc height loss at C3-C4, C4-C5, C5-C6, and C6-C7. There is no fracture or destructive lesion. XR/XR cerv spine AP/LAT/FLX/EXT IMPRESSION: There is 5 mm of retrolisthesis of C4 upon C5 which shows no pathologic movement on flexion or extension. 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 No fracture. Impression dictated by: Yuriy Moran M.D.09/03/2024 9:29 PM Dictation Location: [place] [address] Transcribed By: [facility] 09/03/242128 Dictated By: Yuriy Moran II, MD 09/03/242126 Signed By: 09/03/242128 Normal [facility] XR tibia/fibula BIon 025 XR tibia/fibula BI [facility] [address] [place] [address] XRay Report Signed Patient: Nata Pete MR#: [id number] : 1945 Acct:[id number] Age/Sex: 79 / F ADM Date: 09/03/24 Loc: [facility] Room: Type: [facility] Attending Dr: João Soto DO Copies to: João Soto DO Ordering Provider: João Soto DO Date of Service: 09/03/24 XR/XR femur BI: M17.11 - Unilateral primary osteoarthritis, right knee ([id number]) XR/XR tibia/fibula BI: M17.11 - Unilateral primary osteoarthritis, right knee XR femur BI, XR tibia/fibula BI 09/03/2024 2:04 PM SIGNS AND SYMPTOMS: Preop right total knee arthroplasty PROTOCOL: Frontal radiographs of the bilateral femurs and bilateral tibia and fibula COMPARISON: None FINDINGS: There is severe narrowing of the weightbearing joint spaces of the knees bilaterally, right greater than left. This is most pronounced in the lateral weightbearing compartment on the right with 29.5 degrees of valgus angulation. Postoperative changes are noted in the hips bilaterally consistent with previous hip fractures. The tibia and fibula are grossly intact bilaterally. XR/XR femur BI IMPRESSION: There is severe narrowing of the weightbearing joint spaces of the knees bilaterally, right greater than left. This is most pronounced in the lateral weightbearing compartment on the right with 29.5 degrees of valgus angulation. Impression dictated by: Yuriy Moran M.D.09/03/2024 11:39 PM Dictation Location: [place] [address] Transcribed By: [facility] 09/03/242338 Dictated By: Yuriy Moran II, MD 09/03/242337 Signed By: 09/03/242338 Normal [facility] Appearance of UrineOrdered B y: João Soto on 08-26-2024 Appearance (U) Urine appearance Clear [facility] Bacteria [Presence] in Urine by AutomatedOrdered By: João Soto on 08-26-2024 Bacteria Auto Ql (U) Bacteria [Presence] in Urine by Automated None Seen [facility] Bilirubin Test strip Ql (U)O rdered By: João Soto on 08-26-2024 Bilirubin Ql (U) Bilirubin.total [Presence] in Urine by Test strip Negative [facility] Color Auto (U)Ordered By: Dana Soto on 08-26-2024 Color (U) Color of Urine by Auto Yellow [facility] Dipstick and Microscopicon 0 08-26-2024 Appearance (U) Clear Normal Clear [facility] Comment on above: Order Comment: Name Collection Type:: Clean-Voided Midstream Performed By: #### G LULS #### Point of Care testing , Bacteria,Urine None Seen Normal None Seen [facility] Comment on above: Order Comment: Name Collection Type:: Clean-Voided Midstream Performed By: #### G LULS #### Point of Care testing , Bilirubin,Urine Negative Normal Negative [facility] Comment on above: Order Comment: Name Collection Type:: Clean-Voided Midstream Performed By: #### G LULS #### Point of Care testing , Color (U) Light-Yellow Normal Yellow [facility] Comment on above: Order Comment: Name Collection Type:: Clean-Voided Midstream Performed By: #### G LULS #### Point of Care testing , Glucose Ql (U) Normal Normal Normal [facility] Comment on above: Order Comment: Name Collection Type:: Clean-Voided Midstream Performed By: #### G LULS #### Point of Care testing , Hyaline Casts,Urine None Normal 0-8 [facility] Comment on above: Order Comment: Name Collection Type:: Clean-Voided Midstream Result Comment: PERF ORMED BY: [address] [place] [address] PATHOLOGIST SHOE PULLER MELANIE ALMAZAN M.D. Performed By: #### G LULS #### Point of Care testing , Ketones Ql (U) Negative Normal Negative [facility] Comment on above: Order Comment: Name Collection Type:: Clean-Voided Midstream Performed By: #### G LULS #### Point of Care testing , Leukocyte esterase Test strip Ql (U) Negative Normal Negative [facility] Comment on above: Order Comment: Name Collection Type:: Clean-Voided Midstream Performed By: #### G LULS #### Point of Care testing , Nitrite,Urine Negative Normal Negative [facility] Comment on above: Order Comment: Name Collection Type:: Clean-Voided Midstream Performed By: #### G LULS #### Point of Care testing , Occult Blood,Urine 1+ High Negative [facility] Comment on above: Order Comment: Name Collection Type:: Clean-Voided Midstream Result Comment: PERF ORMED BY: [address] [place] [address] PATHOLOGIST SHOE PULLER MELANIE ALMAZAN M.D. Performed By: #### G LULS #### Point of Care testing , pH (U) 6.5 [pH] Normal 5.0-9.0 [facility] Comment on above: Order Comment: Name Collection Type:: Clean-Voided Midstream Performed By: #### G LULS #### Point of Care testing , Protein,Urine Negative Normal Negative [facility] Comment on above: Order Comment: Name Collection Type:: Clean-Voided Midstream Performed By: #### G LULS #### Point of Care testing , RBC,Urine 1-2 Normal 0-4 [facility] Comment on above: Order Comment: Name Collection Type:: Clean-Voided Midstream Performed By: #### G LULS #### Point of Care testing , Specificy [place],Urine 1.018 Normal 1.001-1.03 0 [facility] Comment on above: Order Comment: Name Collection Type:: Clean-Voided Midstream Performed By: #### G LULS #### Point of Care testing , Squamous Epithelial Cell,Urine 1-2 Normal 0-2 [facility] Comment on above: Order Comment: Name Collection Type:: Clean-Voided Midstream Performed By: #### G LULS #### Point of Care testing , Urobilinogen,Urine Normal Normal Normal [facility] Comment on above: Order Comment: Name Collection Type:: Clean-Voided Midstream Performed By: #### G LULS #### Point of Care testing , WBC,Urine 1-2 Normal 0-4 [facility] Comment on above: Order Comment: Name Collection Type:: Clean-Voided Midstream Performed By: #### G LULS #### Point of Care testing , Epithelial cells.squamous [# /area] in Urine sediment by Automated countOrdered By: João Soto on 08-26-2024 Epithelial cells.squamous Auto (Urine sed) [#/Area] Epithelial cells.squamous [#/area] in Urine sediment by Automated count 0-2 [facility] Erythrocytes [#/area] in Uri ne sediment by Automated countOrdered By: João Soto on 08-26-2024 RBC Auto (Urine sed) [#/Area] Erythrocytes [#/area] in Urine sediment by Automated count 0-4 [facility] Glucose [Mass/volume] in Uri ne by Test stripOrdered By: João Soto on 08-26-2024 Glucose Test strip (U) [Mass/Vol] Glucose [Mass/volume] in Urine by Test strip Normal [facility] Hemoglobin Test strip Ql (U) Ordered By: João Soto on 08-26-2024 Hemoglobin Ql (U) Hemoglobin [Presence ] in Urine by Test strip High Negative [facility] Hyaline casts [#/area] in Ur ine sediment by Automated countOrdered By: João Soto on 08-26-2024 Hyaline casts Auto (Urine sed) [#/Area] Hyaline casts [#/area] in Urine sediment by Automated count 0-8 [facility] Ketones Test strip Ql (U)Ord ered By: João Soto on 08-26-2024 Ketones Ql (U) Ketones [Presence] i n Urine by Test strip Negative [facility] Leukocyte esterase [Presence ] in Urine by Test stripOrdered By: João Soto on 08-26-2024 Leukocyte esterase Test strip Ql (U) Leukocyte esterase [Presence] in Urine by Test strip Negative [facility] Leukocytes [#/area] in Urine sediment by Automated countOrdered By: João Soto on 08-26-2024 WBC Auto (Urine sed) [#/Area] Leukocytes [#/area] in Urine sediment by Automated count 0-4 [facility] Nitrite Test strip Ql (U)Ord ered By: João Soto on 08-26-2024 Nitrite Ql (U) Nitrite [Presence] i n Urine by Test strip Negative [facility] Protein Test strip (U) [Mass /Vol]Ordered By: João Soto on 08-26-2024 Protein (U) [Mass/Vol] Protein [Mass/vol ume] in Urine by Test strip Negative [facility] Specific gravity Test strip (U) [Rel density]Ordered By: João Soto on 08-26-2024 Specific gravity (U) [Rel density] Specific gravity of Urine by Test strip 1.001-1.03 0 [facility] Urobilinogen Test strip (U) [Mass/Vol]Ordered By: João Soto on 08-26-2024 Urobilinogen (U) [Mass/Vol] Urobilinogen [Mass/volume] in Urine by Test strip Normal [facility] pH Test strip (U)Ordered By: João Soto on 08-26-2024 pH (U) pH of Urine by Test strip 5.0-9.0 [facility] Alanine aminotransferase [En zymatic activity/volume] in Serum or PlasmaOrdered By: João Soto on 08-22-2024 ALT [Catalytic activity/Vol] Alanine aminotransferase [Enzymatic activity/volume] in Serum or Plasma 7-52 [facility] Albumin [Mass/volume] in Ser um or Plasma by Bromocresol green (BCG) dye binding methoOrdered By: João Soto on 08-22-2024 Albumin BCG dye [Mass/Vol] Albumin [Mass/volume] in Serum or Plasma by Bromocresol green (BCG) dye binding metho 3.5-5.7 [facility] Alkaline phosphatase [Enzyma tic activity/volume] in Serum or PlasmaOrdered By: João Soto on 08-22-2024 ALP [Catalytic activity/Vol] Alkaline phosphatase [Enzymatic activity/volume] in Serum or Plasma 34-104 [facility] Aspartate aminotransferase [ Enzymatic activity/volume] in Serum or PlasmaOrdered By: João Soto on 08-22-2024 AST [Catalytic activity/Vol] Aspartate aminotransferase [Enzymatic activity/volume] in Serum or Plasma 13-39 [facility] Basophils Auto (Bld) [#/Vol] Ordered By: João Soto on 08-22-2024 Basophils (Bld) [#/Vol] Automated basophil count 0.0-0.2 [facility] Basophils/100 WBC Auto (Bld) Ordered By: João Soto on 08-22-2024 Basophils/100 WBC (Bld) Automated basophil % . [facility] Bilirubin.total [Mass/volume ] in Serum or PlasmaOrdered By: João Soto on 08-22-2024 Bilirubin [Mass/Vol] Bilirubin.total [Mass/volume] in Serum or Plasma 0.3-1.0 [facility] CMP with reflex to A1Con Albumin [Mass/Vol] 4.0 g/dL Normal 3.5-5.7 [facility] Comment on above: Performed By: #### G LULS #### Point of Care testing , Albumin/Globulin [Mass ratio] 2.7 {ratio} Normal [facility] Comment on above: Performed By: #### G LULS #### Point of Care testing , ALP [Catalytic activity/Vol] 47 U/L Normal 34-104 [facility] Comment on above: Result Comment: PERF ORMED BY: [facility] [place] [address] PATHOLOGIST SHOE PULLER MELANIE ALMAZAN M.D. Performed By: #### G LULS #### Point of Care testing , ALT [Catalytic activity/Vol] 10 U/L Normal 7-52 [facility] Comment on above: Performed By: #### G LULS #### Point of Care testing , Anion gap [Moles/Vol] 5.7 mmol/L Low 6.0-15.0 [facility] Comment on above: Performed By: #### G LULS #### Point of Care testing , AST [Catalytic activity/Vol] 15 U/L Normal 13-39 [facility] Comment on above: Performed By: #### G LULS #### Point of Care testing , Bilirubin [Mass/Vol] 0.5 mg/dL Normal 0.3-1.0 [facility] Comment on above: Performed By: #### G LULS #### Point of Care testing , Calcium [Mass/Vol] 9.1 mg/dL Normal 8.6-10.3 [facility] Comment on above: Performed By: #### G LULS #### Point of Care testing , Chloride [Moles/Vol] 101 mmol/L Normal 98-107 [facility] Comment on above: Performed By: #### G LULS #### Point of Care testing , CO2 [Moles/Vol] 31.1 mmol/L High 21.0-31.0 [facility] Comment on above: Performed By: #### G LULS #### Point of Care testing , Creatinine [Mass/Vol] 0.47 mg/dL Low 0.60-1.20 [facility] Comment on above: Performed By: #### G LULS #### Point of Care testing , GFR/1.73 sq M.predicted MDRD (S/P/Bld) [Vol rate/Area] mL/min/{1.73_m2} Normal [facility] Comment on above: Performed By: #### G LULS #### Point of Care testing , Globulin (S) [Mass/Vol] 1.5 g/dL Normal [facility] Comment on above: Performed By: #### G LULS #### Point of Care testing , Glucose [Mass/Vol] 96 mg/dL Normal 70-100 [facility] Comment on above: Performed By: #### G LULS #### Point of Care testing , Potassium [Moles/Vol] 4.8 mmol/L Normal 3.5-5.1 [facility] Comment on above: Performed By: #### G LULS #### Point of Care testing , Protein [Mass/Vol] 5.5 g/dL Low 6.4-8.9 [facility] Comment on above: Performed By: #### G LULS #### Point of Care testing , Sodium [Moles/Vol] 133 mmol/L Low 136-145 [facility] Comment on above: Performed By: #### G LULS #### Point of Care testing , Urea nitrogen [Mass/Vol] 20 mg/dL Normal 7-25 [facility] Comment on above: Performed By: #### G LULS #### Point of Care testing , Calcium [Mass/volume] in Ser um or PlasmaOrdered By: João Soto on 08-22-2024 Calcium [Mass/Vol] Calcium [Mass/volume ] in Serum or Plasma 8.6-10.3 [facility] Carbon dioxide, total [Moles /volume] in Serum or PlasmaOrdered By: João Soto on 08-22-2024 CO2 [Moles/Vol] Carbon dioxide, tota l [Moles/volume] in Serum or Plasma High 21.0-31.0 [facility] Chloride [Moles/volume] in S ozzie or PlasmaOrdered By: João Soto on 08-22-2024 Chloride [Moles/Vol] Chloride [Moles/vol ume] in Serum or Plasma 98-107 [facility] Complete Blood Count Auto Di ffon 08-22-2024 Basophils (Bld) [#/Vol] 0.0 10*3/uL Normal 0.0-0.2 [facility] Comment on above: Result Comment: PERF ORMED BY: [facility] [address] PATHOLOGIST SHOE PULLER MELANIE ALMAZAN M.D. Performed By: #### G LULS #### Point of Care testing , Basophils/100 WBC (Bld) 1.1 % Normal . [facility] Comment on above: Performed By: #### G LULS #### Point of Care testing , Eosinophils (Bld) [#/Vol] 0.1 10*3/uL Normal 0.0-0.45 [facility] Comment on above: Performed By: #### G LULS #### Point of Care testing , Eosinophils/100 WBC (Bld) 2.3 % Normal . [facility] Comment on above: Performed By: #### G LULS #### Point of Care testing , Erythrocyte distribution width (RBC) [Ratio] 13.4 % Normal 11.9-15.3 [facility] Comment on above: Performed By: #### G LULS #### Point of Care testing , Hematocrit (Bld) [Volume fraction] 33.8 % Low 34.0-46.4 [facility] Comment on above: Performed By: #### G LULS #### Point of Care testing , Hemoglobin (Bld) [Mass/Vol] 11.3 g/dL Low 11.8-15.4 [facility] Comment on above: Performed By: #### G LULS #### Point of Care testing , Lymphocytes (Bld) [#/Vol] 0.7 10*3/uL Low 1.00-4.8 [facility] Comment on above: Performed By: #### G LULS #### Point of Care testing , Lymphocytes/100 WBC (Bld) 20.5 % Normal . [facility] Comment on above: Performed By: #### G LULS #### Point of Care testing , MCH (RBC) [Entitic mass] 29.7 pg Normal 24.7-34.3 [facility] Comment on above: Performed By: #### G LULS #### Point of Care testing , MCV (RBC) [Entitic vol] 88.7 fL Normal 80-100 [facility] Comment on above: Performed By: #### G LULS #### Point of Care testing , Mean Corpuscular HGB Conc 33.5 g/dL Normal 32.0-35.0 [facility] Comment on above: Performed By: #### G LULS #### Point of Care testing , Monocytes (Bld) [#/Vol] 0.4 10*3/uL Normal 0.0-0.8 [facility] Comment on above: Performed By: #### G LULS #### Point of Care testing , Monocytes/100 WBC (Bld) 12.0 % Normal . [facility] Comment on above: Performed By: #### G LULS #### Point of Care testing , Neutrophils (Bld) [#/Vol] 2.1 10*3/uL Normal 1.8-7.7 [facility] Comment on above: Performed By: #### G LULS #### Point of Care testing , Neutrophils/100 WBC (Bld) 64.1 % Normal . [facility] Comment on above: Performed By: #### G LULS #### Point of Care testing , NRBC% 0.2 /100{WBC} Normal 0-0.5 [facility] Comment on above: Performed By: #### G LULS #### Point of Care testing , Platelet mean volume (Bld) [Entitic vol] 8.9 fL Normal 6.3-10.7 [facility] Comment on above: Performed By: #### G LULS #### Point of Care testing , Platelets (Bld) [#/Vol] 209 10*3/uL Normal 150-450 [facility] Comment on above: Performed By: #### G LULS #### Point of Care testing , RBC (Bld) [#/Vol] 3.81 10*6/uL Normal 3.60-5.00 [facility] Comment on above: Performed By: #### G LULS #### Point of Care testing , WBC (Bld) [#/Vol] 3.3 10*3/uL Low 3.8-11.6 [facility] Comment on above: Performed By: #### G LULS #### Point of Care testing , Creatinine [Mass/volume] in Serum or PlasmaOrdered By: João Soto on 08-22-2024 Creatinine [Mass/Vol] Creatinine [Mass/v olume] in Serum or Plasma Low 0.60-1.20 [facility] Eosinophils Auto (Bld) [#/Vo l]Ordered By: João Soto on 08-22-2024 Eosinophils (Bld) [#/Vol] Automated eosinophil count 0.0-0.45 [facility] Eosinophils/100 WBC Auto (Bl d)Ordered By: João Soto on 08-22-2024 Eosinophils/100 WBC (Bld) Automated eosinophil % . [facility] Erythrocyte distribution wid th Auto (RBC) [Ratio]Ordered By: João Soto on 08-22-2024 Erythrocyte distribution width (RBC) [Ratio] Erythrocyte distribution width [Ratio] by Automated count 11.9-15.3 [facility] Globulin Calc (S) [Mass/Vol] Ordered By: João Soto on 08-22-2024 Globulin (S) [Mass/Vol] Serum globulin measurement by calculation (mass/volume) [facility] Glucose [Mass/volume] in Ser um or PlasmaOrdered By: João Soto 08-22-2024 Glucose [Mass/Vol] Glucose [Mass/volume ] in Serum or Plasma 70-100 [facility] Hematocrit Auto (Bld) [Volum e fraction]Ordered By: João Soto 08-22-2024 Hematocrit (Bld) [Volume fraction] Hematocrit [Volume Fraction] of Blood by Automated count Low 34.0-46.4 [facility] Hemoglobin [Mass/volume] in BloodOrdered By: João Soto on 08-22-2024 Hemoglobin (Bld) [Mass/Vol] Hemoglobin [Mass/volume] in Blood Low 11.8-15.4 [facility] Leukocytes [#/volume] correc venkata for nucleated erythrocytes in Blood by Automated counOrdered By: João Soto on 08-22-2024 WBC corrected for nucl RBC Auto (Bld) [#/Vol] Leukocytes [#/volume] corrected for nucleated erythrocytes in Blood by Automated coun Low 3.8-11.6 [facility] Lymphocytes Auto (Bld) [#/Vo l]Ordered By: João Soto on 08-22-2024 Lymphocytes (Bld) [#/Vol] Lymphocytes [#/volume] in Blood by Automated count Low 1.00-4.8 [facility] Lymphocytes/100 WBC Auto (Bl d)Ordered By: João Soto on 08-22-2024 Lymphocytes/100 WBC (Bld) Lymphocytes/100 leukocytes in Blood by Automated count . [facility] MCH Auto (RBC) [Entitic mass ]Ordered By: João Soto on 08-22-2024 MCH (RBC) [Entitic mass] MCH [Entitic mass] by Automated count 24.7-34.3 [facility] MCHC Auto (RBC) [Mass/Vol]Or dered By: João Soto on 08-22-2024 MCHC (RBC) [Mass/Vol] MCHC [Mass/volume] by Automated count 32.0-35.0 [facility] MCV Auto (RBC) [Entitic vol] Ordered By: João Soto on 08-22-2024 MCV (RBC) [Entitic vol] MCV [Entitic volume] by Automated count 80-100 [facility] Monocytes Auto (Bld) [#/Vol] Ordered By: João Soto on 08-22-2024 Monocytes (Bld) [#/Vol] Automated blood monocyte count 0.0-0.8 [facility] Monocytes/100 WBC Auto (Bld) Ordered By: João Soto on 08-22-2024 Monocytes/100 WBC (Bld) Automated monocyte % . [facility] Neutrophils Auto (Bld) [#/Vo l]Ordered By: João Soto on 08-22-2024 Neutrophils (Bld) [#/Vol] Neutrophils [#/volume] in Blood by Automated count 1.8-7.7 [facility] Neutrophils/100 WBC Auto (Bl d)Ordered By: João Soto on 08-22-2024 Neutrophils/100 WBC (Bld) Automated neutrophil % . [facility] No Panel InformationOrdered By: João Soto on 08-22-2024 Estimated GFR (CKD-EPI) > 60.0 mL/Min [facility] Creatinine Clearance (Chem N/A [facility] Nucleated erythrocytes [Pres ence] in Blood by Automated countOrdered By: João Soto on 08-22-2024 Nucleated RBC Auto Ql (Bld) Nucleated erythrocytes [Presence] in Blood by Automated count 0-0.5 [facility] Platelet mean volume Auto (B ld) [Entitic vol]Ordered By: João Soto on 08-22-2024 Platelet mean volume (Bld) [Entitic vol] Platelet mean volume [Entitic volume] in Blood by Automated count 6.3-10.7 [facility] Platelets Auto (Bld) [#/Vol] Ordered By: João Soto on 08-22-2024 Platelets (Bld) [#/Vol] Platelets [#/volume] in Blood by Automated count 150-450 [facility] Potassium [Moles/volume] in Serum or PlasmaOrdered By: João Soto on 08-22-2024 Potassium [Moles/Vol] Potassium [Moles/v olume] in Serum or Plasma 3.5-5.1 [facility] Protein [Mass/volume] in Ser um or PlasmaOrdered By: João Soto on 08-22-2024 Protein [Mass/Vol] Protein [Mass/volume ] in Serum or Plasma Low 6.4-8.9 [facility] RBC Auto (Bld) [#/Vol]Ordere d By: João Soto on 08-22-2024 RBC (Bld) [#/Vol] Erythrocytes [#/volu me] in Blood by Automated count 3.60-5.00 [facility] Serum or plasma albumin/glob ulin mass ratioOrdered By: João Soto on 08-22-2024 Albumin/Globulin [Mass ratio] Serum or plasma albumin/globulin mass ratio [facility] Serum or plasma anion gap de terminationOrdered By: João Soto on 08-22-2024 Anion gap [Moles/Vol] Serum or plasma an ion gap determination Low 6.0-15.0 [facility] Sodium [Moles/volume] in Ser um or PlasmaOrdered By: João Soto on 08-22-2024 Sodium [Moles/Vol] Sodium [Moles/volume ] in Serum or Plasma Low 136-145 [facility] Urea nitrogen [Mass/volume] in Serum or PlasmaOrdered By: João Soto on 08-22-2024 Urea nitrogen [Mass/Vol] Urea nitrogen [Mass/volume] in Serum or Plasma 7-25 [facility] WBC Auto (Bld) [#/Vol]Ordere d By: João Soto on 08-22-2024 WBC (Bld) [#/Vol] Leukocytes [#/volume ] in Blood by Automated count Low 3.8-11.6 [facility] Laboratory - Hematology and Cell countson 08-21-2024 HbA1c (Bld) [Mass fraction] 5.2 % [facility] No Panel Informationon 08-21 [facility] Influenza virus B Ag [Presen ce] in Upper respiratory specimen by Rapid immunoassayon 06-07-2024 FLUBV Ag IA.rapid Ql (Nph) Influenza virus B Ag [Presence] in Upper respiratory specimen by Rapid immunoassay [facility] No Panel Informationon 06-07 Influenza Type A (Rapid) Negative [facility] POC SARS CoV-2 Antigen Negative [facility] Laboratory - Hematology and Cell countson 04-24-2024 HbA1c (Bld) [Mass fraction] 5.3 % [facility] No Panel Informationon 04-24 [facility] XR knee BI 3V - NOT FOR ER U Jamar 04-23-2024 XR knee BI 3V - NOT FOR ER USE [facility] [address] [place] [address] XRay Report Signed Patient: Nata Pete MR#: [id number] : 1945 Acct:[id number] Age/Sex: 79 / F ADM Date: 04/23/24 Loc: [facility] Room: Type: [facility] Attending Dr: Lisa Castillo BANDSAW OPERATOR-C Copies to: LisaARCHANA Worrell Ordering Provider: ARCHANA Wilson Date of Service: 04/23/24 XR/XR knee BI 3V - NOT FOR ER USE: M17.12 - Unilateral primary osteoarthritis, left knee 3 views both knee plain film COMPARISON: 10/05/2021 HISTORY: Generalized right shoulder pain. Bilateral knee pain. ACUTE FINDINGS: No acute findings DEGENERATIVE CHANGE: Extensive bilateral tricompartmental degeneration with similar extensive bilateral knee degenerative subluxation. SOFT TISSUE FINDINGS: Unremarkable JOINT EFFUSION: None POSTOP CHANGES: None BONE MINERALIZATION: Adequate XR/XR knee BI 3V - NOT FOR ER USE IMPRESSION: Similar findings of extensive tricompartmental degenerative changes. Worsening right degenerative subluxation. Similar extensive left hip degenerative subluxation. Impression dictated by: Alvin Newby M.D.04/23/2024 4:09 PM Dictation Location: [place] [address] Transcribed By: [facility] 04/23/24 1609 Dictated By: Alvin Newby DO 04/23/24 1606 Signed By: 04/23/24 1609 Normal [facility] XR shoulder RT min 2V*on XR shoulder RT min 2V* [facility] [address] [place] [address] XRay Report Signed Patient: Nata Pete MR#: [id number] : 1945 Acct:[id number] Age/Sex: 79 / F ADM Date: 04/23/24 Loc: [facility] Room: Type: [facility] Attending Dr: Lisa Castillo BANDSAW OPERATOR-C Copies to: ARCHANA Wilson Ordering Provider: ARCHANA Wilson Date of Service: 04/23/24 XR/XR shoulder RT min 2V*: M19.011 - Primary osteoarthritis, right shoulder 3 views right shoulder plain film HISTORY: Generalized shoulder pain. 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 Suspected rotator cuff insufficiency change. Mild acromioclavicular degenerative change. 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 Similar to mild progression compared to prior examination 09/13/2022 Impression dictated by: Alvin Newby M.D.04/23/2024 4:15 PM Dictation Location: [place] [address] Transcribed By: [facility] 04/23/241614 Dictated By: Alvin Newby DO 04/23/241612 Signed By: 04/23/241614 Normal [facility] Activated partial thrombopla stin time (aPTT) in platelet poor plasma by coagulation aOrdered By: Jerry Boss on 03-10-2024 aPTT Coag (PPP) [Time] 28.7 s 25.1-36.5 [facility] Comment on above: A hematocrit value g reater than 55% may lead to inaccurate results in coagulation testing. Patients having hematocrit values >55% require a special collection tube for coagulation studies. Please contact the laboratory at [phone] for redraw instructions. Automated basophil %Ordered By: Jerry Boss on 03-10-2024 Basophils/100 WBC (Bld) 0.6 % Normal . [facility] Comment on above: Performed By: #### G LULS #### Point of Care testing , Automated basophil countOrde red By: Jerry Boss on 03-10-2024 Basophils (Bld) [#/Vol] 0.0 10*3/uL Normal 0.0-0.2 [facility] Comment on above: Result Comment: PERF ORMED BY: [facility] [address] [place] [address] PATHOLOGIST SHOE PULLER LAURA CAMARILLO M.D. Performed By: #### G LULS #### Point of Care testing , Automated blood monocyte cou ntOrdered By: Jerry Boss on 03-10-2024 Monocytes (Bld) [#/Vol] 0.4 10*3/uL Normal 0.0-0.8 [facility] Comment on above: Performed By: #### G LULS #### Point of Care testing , Automated eosinophil %Ordere d By: Jerry Boss on 03-10-2024 Eosinophils/100 WBC (Bld) 1.4 % Normal . [facility] Comment on above: Performed By: #### G LULS #### Point of Care testing , Automated eosinophil countOr dered By: Jerry Gera on 03-10-2024 Eosinophils (Bld) [#/Vol] 0.1 10*3/uL Normal 0.0-0.45 [facility] Comment on above: Performed By: #### G LULS #### Point of Care testing , Automated monocyte %Ordered By: Jerry Boss on 03-10-2024 Monocytes/100 WBC (Bld) 10.0 % Normal . [facility] Comment on above: Performed By: #### G LULS #### Point of Care testing , Automated neutrophil %Ordere d By: Jerry Boss on 03-10-2024 Neutrophils/100 WBC (Bld) 62.9 % Normal . [facility] Comment on above: Performed By: #### G LULS #### Point of Care testing , BNP ser/plasOrdered By: Jerry Boss on 03-10-2024 Natriuretic peptide B (Bld) [Mass/Vol] 167.0 pg/mL High 5-100 [facility] Comment on above: Result Comment: PERF ORMED BY: [facility] [address] [place] [address] PATHOLOGIST SHOE PULLER LAURA CAMARILLO M.D. Performed By: #### G LULS #### Point of Care testing , Basic Metabolic Panelon 02-14 Creatinine Clr Calc Pharmacy 47.72 Normal [facility] Comment on above: Result Comment: PERF ORMED BY: [facility] [address] [place] [address] PATHOLOGIST SHOE PULLER LAURA CAMARILLO M.D. Performed By: #### G LULS #### Point of Care testing , GFR/1.73 sq M.predicted MDRD (S/P/Bld) [Vol rate/Area] mL/min/{1.73_m2} Normal [facility] Comment on above: Performed By: #### G MONCHOLS #### Point of Care testing , Calcium [Mass/volume] in Ser um or PlasmaOrdered By: Jerry Boss on 03-10-2024 Calcium [Mass/Vol] 8.8 mg/dL Normal 8.6-10.3 [facility] Comment on above: Performed By: #### G LULS #### Point of Care testing , Carbon dioxide, total [Moles /volume] in Serum or PlasmaOrdered By: Jerry Boss on 03-10-2024 CO2 [Moles/Vol] 27.9 mmol/L Normal 21.0-31.0 [facility] Comment on above: Performed By: #### G LULS #### Point of Care testing , Chloride [Moles/volume] in S ozzie or PlasmaOrdered By: Jerry Boss on 03-10-2024 Chloride [Moles/Vol] 101 mmol/L Normal 98-107 [facility] Comment on above: Performed By: #### G LULS #### Point of Care testing , Complete Blood Count Auto Di ffon 03-10-2024 Mean Corpuscular HGB Conc 33.5 g/dL Normal 32.0-35.0 [facility] Comment on above: Performed By: #### G LULS #### Point of Care testing , Monocytes/100 WBC (Bld) 15.95 % Normal 0.00-20.00 [facility] Comment on above: Performed By: #### G LULS #### Point of Care testing , NRBC% 0.0 /100{WBC} Normal 0-0.5 [facility] Comment on above: Performed By: #### G LULS #### Point of Care testing , Creatine kinase [Enzymatic a ctivity/volume] in Serum or PlasmaOrdered By: Jerry Boss on 03-10-2024 CK [Catalytic activity/Vol] 55 U/L Normal 30-223 [facility] Comment on above: Performed By: #### G LULS #### Point of Care testing , Creatinine [Mass/volume] in Serum or PlasmaOrdered By: Jerry Boss on 03-10-2024 Creatinine [Mass/Vol] 0.47 mg/dL Low 0.60-1.20 [facility] Comment on above: Performed By: #### G LULS #### Point of Care testing , ECG 12 lead ECGon 03-10-2024 ECG 12 lead ECG [facility] [place] [address] Electrocardiograph Report Signed Patient: Nata Pete MR#: [id number] : 1945 Acct:[id number] Age/Sex: 78 / F ADM Date: 03/10/24 Loc: ER Room: Type: [facility] ER Attending Dr: Ordering Provider: Jerry Boss MD Date of Service: 03/10/24 ECG/ECG 12 lead ECG: Chest Pain Copies to: Test Reason : Blood Pressure : 140/67 mmHG Vent. Rate : 75 BPM Atrial Rate : 75 BPM P-R Int : 198 ms QRS Dur : 84 ms QT Int : 364 ms P-R-T Axes : 41 -30 31 degrees QTcB Int : 406 ms Normal sinus rhythm Left axis deviation Moderate voltage criteria for LVH, may be normal variant Nonspecific T wave abnormality Abnormal ECG When compared with ECG of 25-Apr-2019 04:19, Nonspecific T wave abnormality, improved in Anterior leads Confirmed by JERRY BOSS MD ([id number]) on 03/11/2024 12:56:31 AM Referred By: Electronically Signed By: JERRY BOSS MD Transcribed By: MUS Signed By Jerry Boss MD 03/11/24 0056 Normal [facility] Erythrocyte distribution wid th [Ratio] by Automated countOrdered By: Jerry Boss on 03-10-2024 Erythrocyte distribution width (RBC) [Ratio] 14.6 % Normal 11.9-15.3 [facility] Comment on above: Performed By: #### G BENJAMIN #### Point of Care testing , Erythrocytes [#/volume] in B lood by Automated countOrdered By: Jerry Boss on 03-10-2024 RBC (Bld) [#/Vol] 3.93 10*6/uL Normal 3.60-5.00 [facility] Comment on above: Performed By: #### G LULS #### Point of Care testing , Glucose [Mass/volume] in Ser um or PlasmaOrdered By: Jerry Boss on 03-10-2024 Glucose [Mass/Vol] 93 mg/dL Normal 70-100 [facility] Comment on above: ADA recommended refe rence rangeRandom Glucose Reference Range is dependent on time and content of last meal. Glucose of more than 200 mg/dL in a nonstressed, ambulatory subject supports the diagnosis of Diabetes Mellitus. Result Comment: [place] om Glucose Reference Range is dependent on time and content of last meal. Glucose of more than 200 mg/dL in a nonstressed, ambulatory subject supports the diagnosis of Diabetes Mellitus. ADA recommended reference range Performed By: #### G LULS #### Point of Care testing , Hematocrit [Volume Fraction] of Blood by Automated countOrdered By: Jerry Boss on 03-10-2024 Hematocrit (Bld) [Volume fraction] 34.4 % Normal 34.0-46.4 [facility] Comment on above: Performed By: #### G LULS #### Point of Care testing , Hemoglobin [Mass/volume] in BloodOrdered By: Jerry Boss on 03-10-2024 Hemoglobin (Bld) [Mass/Vol] 11.5 g/dL Low 11.8-15.4 [facility] Comment on above: Performed By: #### G LULS #### Point of Care testing , INR in Platelet poor plasma by Coagulation assayOrdered By: Jerry Boss on 03-10-2024 INR Coag (PPP) [Relative time] 1.0 {INR} Normal [facility] Comment on above: INR Therapeutic Rang e A) Pre- and Peroperative OAT started two weeks before surgery. NOT HIP SURGERY: 1.5 - 2.5 HIP SURGERY: 2 - 3B) Primary and secondary prevention of venous THROMBOSIS: 2 - 3C) Active venous thrombosis, pulmonary embolismand prevention of recurrent venous thrombosis: 2 - 3D) Prevention of arterial thromboembolismincluding patients with mechanical heart valves: 3 - 4.5 Result Comment: INR Therapeutic Range A) Pre- and Peroperative OAT started two weeks before surgery. NOT HIP SURGERY: 1.5 - 2.5 HIP SURGERY: 2 - 3 B) Primary and secondary prevention of venous THROMBOSIS: 2 - 3 C) Active venous thrombosis, pulmonary embolism and prevention of recurrent venous thrombosis: 2 - 3 D) Prevention of arterial thromboembolism including patients with mechanical heart valves: 3 - 4.5 Performed By: #### B MP, CBC #### [place] [id number] [facility] Leukocytes [#/volume] correc venkata for nucleated erythrocytes in Blood by Automated counOrdered By: Jerry Boss on 03-10-2024 WBC corrected for nucl RBC Auto (Bld) [#/Vol] 4.2 10*3/uL 3.8-11.6 [facility] Leukocytes [#/volume] in Blo od by Automated countOrdered By: Jerry Boss on 03-10-2024 WBC (Bld) [#/Vol] 4.2 10*3/uL Normal 3.8-11.6 [facility] Comment on above: Performed By: #### G MONCHOLS #### Point of Care testing , Lymphocytes [#/volume] in Bl ood by Automated countOrdered By: Jerry Boss on 03-10-2024 Lymphocytes (Bld) [#/Vol] 1.1 10*3/uL Normal 1.00-4.8 [facility] Comment on above: Performed By: #### G MONCHOLS #### Point of Care testing , Lymphocytes/100 leukocytes i n Blood by Automated countOrdered By: Jerry Boss on 03-10-2024 Lymphocytes/100 WBC (Bld) 25.1 % Normal . [facility] Comment on above: Performed By: #### G MONCHOLS #### Point of Care testing , MCH [Entitic mass] by Automa venkata countOrdered By: Jerry Boss on 03-10-2024 MCH (RBC) [Entitic mass] 29.4 pg Normal 24.7-34.3 [facility] Comment on above: Performed By: #### G BENJAMIN #### Point of Care testing , MCHC Auto (RBC) [Mass/Vol]Or dered By: Jerry Boss on 03-10-2024 MCHC (RBC) [Mass/Vol] 33.5 g/dL 32.0-35.0 [facility] MCV [Entitic volume] by Auto mated countOrdered By: Jerry Boss on 03-10-2024 MCV (RBC) [Entitic vol] 87.5 fL Normal 80-100 [facility] Comment on above: Performed By: #### G LULS #### Point of Care testing , Monocyte distribution width [Entitic volume] in Blood by AutomatedOrdered By: Jerry Boss on 03-10-2024 Monocyte distribution width Auto (Bld) [Entitic vol] 15.95 % 0.00-20.00 [facility] Neutrophils [#/volume] in Bl ood by Automated countOrdered By: Jerry Boss on 03-10-2024 Neutrophils (Bld) [#/Vol] 2.7 10*3/uL Normal 1.8-7.7 [facility] Comment on above: Performed By: #### G LULS #### Point of Care testing , No Panel InformationOrdered By: Jerry Boss on 03-10-2024 Estimated GFR (CKD-EPI) > 60.0 mL/Min [facility] Creatinine Clearance (Chem 47.72 [facility] Nucleated erythrocytes [Pres ence] in Blood by Automated countOrdered By: Jerry Boss on 03-10-2024 Nucleated RBC Auto Ql (Bld) 0.0 /100{WBC} 0-0.5 [facility] Partial Thromboplastin Timeo n 03-10-2024 aPTT Coag (Bld) [Time] 28.7 s Normal 25.1-36.5 [facility] Comment on above: Result Comment: A he matocrit value greater than 55% may lead to inaccurate results in coagulation testing. Patients having hematocrit values >55% require a special collection tube for coagulation studies. Please contact the laboratory at [phone] for redraw instructions. PERFORMED BY: [place] [id number] PATHOLOGIST SHOE PULLER LAURA CAMARILLO M.D. Performed By: #### B MP, CBC #### [place] [id number] [facility] Platelet mean volume [Entiti c volume] in Blood by Automated countOrdered By: Jerry Boss on 03-10-2024 Platelet mean volume (Bld) [Entitic vol] 8.9 fL Normal 6.3-10.7 [facility] Comment on above: Performed By: #### G LULS #### Point of Care testing , Platelets [#/volume] in Bloo d by Automated countOrdered By: Jerry Boss on 03-10-2024 Platelets (Bld) [#/Vol] 219 10*3/uL Normal 150-450 [facility] Comment on above: Performed By: #### G LULS #### Point of Care testing , Potassium [Moles/volume] in Serum or PlasmaOrdered By: Jerry Boss on 03-10-2024 Potassium [Moles/Vol] 4.1 mmol/L Normal 3.5-5.1 [facility] Comment on above: Performed By: #### G LULS #### Point of Care testing , Prothrombin time (PT)Ordered By: Jerry Boss on 03-10-2024 PT Coag (PPP) [Time] 11.4 s Normal 9.0-12.9 [facility] Comment on above: A hematocrit value g reater than 55% may lead to inaccurate results in coagulation testing. Patients having hematocrit values >55% require a special collection tube for coagulation studies. Please contact the laboratory at [phone] for redraw instructions. Result Comment: A he matocrit value greater than 55% may lead to inaccurate results in coagulation testing. Patients having hematocrit values >55% require a special collection tube for coagulation studies. Please contact the laboratory at [phone] for redraw instructions. Performed By: #### B MP, CBC #### [facility] [address] [place] [address] Serum or plasma anion gap de terminationOrdered By: Jerry Boss on 03-10-2024 Anion gap [Moles/Vol] 8.2 mmol/L Normal 6.0-15.0 [facility] Comment on above: Performed By: #### G LULS #### Point of Care testing , Sodium [Moles/volume] in Ser um or PlasmaOrdered By: Jerry Boss on 03-10-2024 Sodium [Moles/Vol] 133 mmol/L Low 136-145 [facility] Comment on above: Performed By: #### G LULS #### Point of Care testing , Troponin I High Sensitivityo n 03-10-2024 Troponin I High Sensitivity 7.4 pg/mL Normal 0.0-15.0 [facility] Comment on above: Result Comment: PERF ORMED BY: [place] [address] PATHOLOGIST SHOE PULLER LAURA CAMARILLO M.D. Performed By: #### G LULS #### Point of Care testing , Troponin I.cardiac [Mass/vol ume] in Serum or Plasma by Detection limit <= 0.01 ng/Ordered By: Jerry Boss on 03-10-2024 Troponin I.cardiac DL <= 0.01 ng/mL [Mass/Vol] 7.4 pg/mL 0.0-15.0 [facility] Urea nitrogen [Mass/volume] in Serum or PlasmaOrdered By: Jerry Boss on 03-10-2024 Urea nitrogen [Mass/Vol] 13 mg/dL Normal 02-06 [facility] Comment on above: Performed By: #### G LULS #### Point of Care testing , XR chest 2V*on 03-10-2024 XR chest 2V* [facility] [place] [address] XRay Report Signed Patient: Nata Pete MR#: [id number] : 1945 Acct:[id number] Age/Sex: 78 / F ADM Date: 03/10/24 Loc: ER Room: Type: PRE ER Attending Dr: Copies to: ARELI RIVAS Ordering Provider: ARELI RIVAS Date of Service: 03/10/24 XR/XR chest 2V*: Chest Pain PA AND LATERAL CHEST: CLINICAL HISTORY: Hypoglycemia, chest pain and shortness of breath COMPARISON: 07/22/2020 There is continued elevation right hemidiaphragm. There is no focal parenchymal consolidation, effusion or pneumothorax. The cardiac, hilar and mediastinal silhouettes are within normal limits. There is no vascular congestion. The visualized bony structures are osteopenic. There are degenerative changes at the shoulders, right much greater than left as well as endplate spurring at the spine . XR/XR chest 2V* IMPRESSION: NO ACUTE CARDIOPULMONARY ABNORMALITY. Impression dictated by: Shahana Pérez M.D.03/10/2024 4:19 PM Dictation Location: [place] [address] Transcribed By: [facility] 03/10/241618 Dictated By: Shahana Pérez MD 03/10/241617 Signed By: 03/10/24 161 Normal [facility] Outside Office Co pyon 10-24-2023 Laboratory Outside Office Copy [id number]#1.00TIFF Normal [facility] In office Testingon 10-18-19 In office Testing [id number]#1.00TIF F Normal [facility] In office Testing [id number]#1.00TIFF Normal [facility] INSPECTOR LINE Drug Screen-LCon 024 Test Name Toxassure 23 Invalid Interpretation Code [facility] Comment on above: Result Comment: ente red correct information Performed By: #### 1 [id number] ####[facility] [address] [place] [address] Physician Orderon 10-18-2023 Physician Order [id number]#1.00TIF F Normal [facility] Physician Order [id number]#[address].00TIFF [facility] Consent for Surgery/Procedur e Officeon 10-17-2023 Consent for Surgery/Procedure Office [id number]#1.00TIFF [facility] Consent for Treatmenton Consent for Treatment [id number]#1.00TIFF Normal [facility] Consultation Noteon 04-03-20 24 Consultation Note Patient: NATA PETE Age: 78 years Sex: Female : 1945 Associated Diagnoses: None Author: Kaci Morton PA-C Basic Information Accompanied by: Family member. Source of history: Self, Family member, Medical record. Referral source: Aisha RAGLAND PA-C History limitation: None. Chief Complaint 10/17/2023 10:18 EDT Right shoulder & right knee pain History of Present Illness Patient is a 78-year-old female. She has a past medical history significant for bilateral knee pain, bilateral knee arthritis, right shoulder pain and right shoulder arthritis. Patient is here today as referred by her PCP. She states that they have been giving her [place] 5/325 twice daily as needed pain that [...] All Problems Resolved: Hypertension / SNOMED CT 89632700 Resolved: Osteoarthritis / SNOMED CT 0187509405 Resolved: High cholesterol / SNOMED CT 3980834966 Resolved: Diabetes mellitus / SNOMED CT 046727913 Histories Past Medical History: Resolved Hypertension (72555644): Resolved. Osteoarthritis (9998732914): Resolved. High cholesterol (1159022059): Resolved. Diabetes mellitus (356913612): Resolved. Family History: Hypertension Father Brother Sister Heart disease Father Diabetes mellitus type 2 Mother Brother Stroke Mother CAD (coronary artery disease) Father Procedure history: Appendectomy (SNOMED CT 139077254). Cholecystectomy (SNOMED CT 99904081). Tonsillectomy (SNOMED CT 893961689). Repair of right hip joint (SNOMED CT 537547705768406). Osteoporotic fracture of left hip (SNOMED CT 801846765256856). Social History Social & Psychosocial Habits Alcohol [...] Appropriate mood & affect. Integumentary: Warm, Dry, [place]. Review / Management Results review: No qualifying [...] knee done (more content not included)... Normal [facility] Comment on above: Result Comment: Elec tronically Signed By: Selene WEISS, Kaci\.br\Date and Time Signed: 10/17/23 11:44 EDT HIPAA Forms Officeon 024 HIPAA Forms Office [id number]#1.00TIFF Normal [facility] Legal Correspondence Officeo n 10-17-2023 Legal Correspondence Office [id number]#1.00TIFF Normal [facility] Legal Correspondence Office [id number]#1.00TIFF Normal [facility] Office/Clinic Note-Physician on 10-17-2023 Office/Clinic Note-Physician [id number]#1.00TIFF Normal [facility] Patient Correspondenceon Patient Correspondence [id number]#1.00TIFF Normal [facility] Patient Correspondence [id number]#1.00TIFF Normal [facility] Patient Correspondence [id number]#1.00TIFF Normal [facility] Patient Correspondence [id number]#1.00TIFF Normal [facility] Patient Correspondence [id number]#1.00TIFF Normal [facility] Patient History Officeon Patient History Office [id number]#1.00TIFF Normal [facility] Radiology Outside Office Trousseau Consultant yon 10-17-2023 Radiology Outside Office Copy [id number]#1.00TIFF Normal [facility] Reference Laboratory Testing Ordered By: Carlie Ernst on 10-17-2023 Test Name Compliance drug Invalid Interpretation Code [facility] SendOutsSS C Urineon 10-03-2023 Bacteria identified Cx Nom (U) Microbiology PROCEDURE: Urine Culture [R1] SOURCE: U CleanCatch BODY SITE: COLLECTED DATE/TIME: 10/01/2023 05:37 EDT RECEIVED DATE/TIME: 10/01/2023 10:13 EDT START DATE/TIME: 10/01/2023 10:13 EDT FREE TEXT SOURCE: Dillon Hurtado DO, DO, Noah S. FINAL REPORTS Final Report [] Verified Date/Time: 10/03/2023 10:12 EDT 70,000 cfu/ml Escherichia coli SUSCEPTIBILITY RESULTS __ LEGEND: S=Susceptible, N/R=Not Reported, Blank=Data not available, [...] Locations R1: This test was performed at: [facility], [address] [place] [address], [address] , , [facility] Comment on above: Performed By: #### 1 [id number], [id number] ####[facility] [address] [place] [address] Consent for Treatmenton 09-13 Consent for Treatment [id number]#1.00TIFF [facility] Discharge Instructionson Discharge Instructions [id number]#1.00TIFF Normal [facility] ED Clinical Summaryon 2023 ED Clinical Summary (Inserted Image. Angelique ble to display) [address] [address] ED Clinical Summary Person Information Name: NATA PETE [place] Age: 78 Years : 1945 Sex: Female Language: Telugu PCP: Aisha RAGLAND PA-C Marital Status: Phone: [phone] Visit Id: Visit Reason: Urinary frequency; POSS [...] 06:38:15 ADDRESS: [address] [facility] [id number] PHYS DOC NOTES: MEDICAL INFORMATION: Prescriptions Given: New Medications [id number], [address], [place] [id number], [phone] cephalexin (Keflex 500 mg Cap) 1 Capsules [...] up: With: Address: When: Aisha RAGLAND [address] [place] [address] [employer] (1) In 3 days DIAGNOSIS: Acute UTI Normal [facility] ED Note-Physicianon 10-01-19 ED Note-Physician Basic [...] and Complexity of Problems Differential Diagnosis: [] [facility] Data External documents reviewed: N/A My EKG [...] day(s), # 14 cap(s), Refills(s) 0, Pharmacy: [id number], 175, cm, 10/01/23 5:36:00 EDT, Height/Length Dosing, 55, kg, 10/01/23 5:36:00 EDT, Weight Dosing cephalexin, 500 mg = 1 cap(s), Cap, Oral, Once, Stop date 10/01/23 6:24:00 EDT, STAT, Start date 10/01/23 6:24:00 EDT, 10/01/23 6:24:00 EDT phenazopyridine, 100 mg = 1 tab(s), Oral, TID, X 3 day(s), # 9 tab(s), Refills(s) 0, Pharmacy: [id number], 175, cm, 10/01/23 5:36:00 EDT, Height/Length Dosing, 55, kg, 10/01/23 5:36:00 EDT, Weight Dosing UA With Cult Reflex Urine Culture Disposition Plan Discharge Prescription List Prescriptions Keflex 500 mg Cap, 500 mg= 1 cap(s), Oral, q12hr Pyridium 100 mg Tab, 100 mg= 1 tab(s), Oral, TID Follow-up With When Contact Information Aisha ARORAMERS In [address] [place], [place] [address] (1) Additional Instructions: Patient Education Urinary Tract [...] Substance Abuse (more content not included)... Normal [facility] Comment on above: Result Comment: Elec [...] this condition includes: ? Antibiotic medicine. ? Capi-hqa-urnlcsi medicines to treat discomfort. ? Drinking enough [...] these instructions at home: Medicines ? Take fjsw-ubk-intxcoi and prescription medicines only as told by [...] Document Revie (more content not included)... Normal [facility] ED Patient Summaryon 024 ED Patient Summary (Inserted Image. Angelique ble to display) [address] [address] Patient Discharge Instructions Person Information Name: NATA PETE Age: 78 Years Arrival Date: 10/01/2023 05:14:21 Discharge Diagnosis: Acute UTI Primary Care Physician: Aisha RAGLAND PA-C Provider Information Primary Provider: Dillon Hurtado DO Advanced Basic Combatant Swimmer:None The exam and treatment you received in the Emergency Department were for an urgent problem and are not intended as complete care. It is important that you follow up with a doctor, nurse practitioner, or physician?s operations manager assistant for ongoing care. If your symptoms become worse or you do not improve as expected and you are unable to reach your usual health care provider, you should return to the Emergency Department. We are available 24 hours a day. NATA PETE has been given the following list of patient education materials, prescriptions and follow-up instructions: Follow-up Instructions: With: Address: When: [place] [address] Business (1) In 3 days In the event that this physician does not participate in your insurance network, please consult with your insurance company to find a nearby participating provider. Patient Education Materials: Urinary Tract Infection, Adult A MESSAGE TO ALL PATIENTS REGARDING OPIOIDS PRESCRIPTION OPIOIDS: WHAT YOU NEED TO KNOW Prescription opioids can be used to help relieve fmvtlxwz-rh-qnbgcj pain and are often prescribed following a [...] guidance from the Food and Drug Administration (www.fda.gov/Drugs/Resour cesForYou). ? Visit www.cdc.gov/drugoverdose to learn about the risks of opioids abuse and overdose. ? If you believe you may be struggling with addiction, tell your health animal care technician and ask for guidance or call [facility]?S National Helpline at 8-075-417-OTWA. s Source: Department of [facility] (more content not included)... Normal [facility] UA With Cult Reflexon 2023 Bilirubin Ql (U) Negative Normal Negative [facility] Comment on above: Performed By: #### 1 [id number], [id number] ####[facility] [address] [place] [address] Clarity (U) CLOUDY Abnormal Clear [facility] Comment on above: Performed By: #### 1 [id number], [id number] ####[facility] [address] [place] [address] Color (U) RED Abnormal Yellow [facility] Comment on above: Performed By: #### 1 [id number], [id number] ####[address] [address] Epithelial cells.squamous LM.HPF (Urine sed) [#/Area] 0-2 Normal 0-2 [facility] Comment on above: Performed By: #### 1 [id number], [id number] ####[facility] [address] [place] [address] Glucose Test strip (U) [Mass/Vol] Negative Normal Negative [facility] Comment on above: Performed By: #### 1 3460244, 7469839 ####[facility] [address] [place] [address] Hemoglobin Ql (U) 3+ Abnormal Negative [facility] Comment on above: Performed By: #### 1 0772650, 8783979 ####[facility] [address] [place] [address] Ketones (U) [Mass/Vol] 1+ Abnormal Negative [facility] Comment on above: Performed By: #### 1 9261917, 1202480 ####[facility] [address] [place] [address] [place].plasma/[place] .RBC (Bld) [Mass ratio] >75 Abnormal 0-3 [facility] Comment on above: Performed By: #### 1 5606088, 0755542 ####[address] [address] Nitrite Ql (U) Positive Abnormal Negative [facility] Comment on above: Performed By: #### 1 6681931, [id number] ####[place] [address] pH (U) 7.0 [pH] Invalid Interpretation Code 5.0-9.0 [facility] Comment on above: Performed By: #### 1 6586586, 2984234 ####[place] [address] Protein (U) [Mass/Vol] 2+ Abnormal Negative [facility] Comment on above: Performed By: #### 1 7328231, [id number] ####[place] [address] Specific gravity (U) [Rel density] 1.020 Invalid Interpretation Code 1.005-1.03 0 [facility] Comment on above: Performed By: #### 1 7671606, 1343526 ####[place] [address] Type of Urine collection method Clean Catch Normal [facility] Comment on above: Performed By: #### 1 [id number], [id number] ####[place] [address] Urobilinogen Qn (U) 0.2 {Otiila'U}/dL Normal 0.0-1.0 [facility] Comment on above: Performed By: #### 1 2576268, [id number] ####[place] [address] WBC Auto Ql (U) 2+ Abnormal Negative [facility] Comment on above: Performed By: #### 1 8711298, 4326218 ####[place] [address] WBC LM.HPF (Urine sed) [#/Area] /[HPF] Abnormal 0-5 [facility] Comment on above: Performed By: #### 1 [id number], 8957324 ####[facility] [address] [place] [address] URINALYSISOrdered By: Mahsa Moses on 10-01-2023 Bilirubin Ql (U) Negative (10/01/23 5:37 AM) Normal Negative [facility] UA Auto SS Clarity (U) Cloudy *ABN* (10/01/23 5:37 AM) Invalid Interpretation Code Clear [facility] UA Auto SS Color (U) Red *ABN* (10/01/23 5:37 AM) Invalid Interpretation Code Yellow [facility] UA Auto SS Epithelial cells.squamous LM.HPF (Urine sed) [#/Area] 0-2 /HPF Normal 0-2/HPF [facility] UA Aut o SS Glucose Test strip (U) [Mass/Vol] Negative (10/01/23 5:37 AM) Normal Negative [facility] UA Auto SS Hemoglobin Ql (U) 3+ *ABN* (10/01/23 5:37 AM) Invalid Interpretation Code Negative [facility] UA Auto SS Ketones (U) [Mass/Vol] 1+ *ABN* (10/01/23 5:37 AM) Invalid Interpretation Code Negative [facility] UA Auto SS [place].plasma/[place] .RBC (Bld) [Mass ratio] >75 /HPF Invalid Interpretation [...] [facility] UA Auto SS Urobilinogen Qn (U) 0.5382327 {Otilia'U}/dL Normal 0.0 - 1.0 EU/dL [facility] UA Auto SS WBC Auto Ql (U) 2+ *ABN* (10/01/23 5:37 AM) Invalid Interpretation Code Negative [facility] UA Auto SS WBC LM.HPF (Urine sed) [#/Area] /[HPF] Invalid Interpretation Code 0-5/HPF [facility] UA Auto SS Outside Records Officeon Outside Records Office [id number]#1.00TIF F Normal [facility] Outside Records Officeon Outside Records Office [id number]#1.00TIFF Normal [facility] Referrals Officeon Referrals Office [id number]#1.00TIFF Normal [facility] Microalbumin/Creatinine rati o panel (U)on 08-16-2023 Albumin DL <= 20 mg/L (U) [Mass/Vol] mg/dL See Note: mg/dL [facility] Comment on above: Reference Range: Reference Range Not established Albumin/Creatinine (U) [Mass ratio] [facility] Comment on above: NOTE: The urine [...] 18 mg/dL Low 20 - 275 mg/dL [facility] Interpretation and review of laboratory results Abnormal [facility] Performing Organizat ion Information Site ID: QPT Name: [facility] Address: [address] [place] [address], [address] [place] [phone] Director: Willie Rodriguez MD [facility] - Hematology and Cell countson 08-14-2023 HbA1c (Bld) [Mass fraction] 5.2 % [facility] No Panel Informationon 08-14 Interpretation and review of laboratory results Normal [facility] XR shoulder RT min 2V*on XR shoulder RT min 2V* [facility] [employer] Other XR shoulder RT min 2V* [facility] [employer] Other XR shoulder RT min 2V* [address] [facility] [employer] Other XR shoulder RT min 2V* [place] [address] [employer] Other XR shoulder RT min 2V* XRay Report N [facility] [employer] Other XR shoulder RT min 2V* Signed No rt [employer] Other XR shoulder RT min 2V* Patient: Nata Pete MR#: [id number] [employer] Other XR shoulder RT min 2V* [id number] No rt [employer] Other XR shoulder RT min 2V* : 1945 Acct:[id number] [employer] Other XR shoulder RT min 2V* Age/Sex: 77 / F A DM Date: 09/13/22 [employer] Other XR shoulder RT min 2V* Loc: [facility] Room: T ype: [facility] [employer] Other XR shoulder RT min 2V* Attending Dr: Hugo Soto DO [employer] Other XR shoulder RT min 2V* Copies to: João Soto [employer] Other XR shoulder RT min 2V* Ordering Provider : João Soto DO [employer] Other XR shoulder RT min 2V* Date of Service: 09/13/22 [employer] Other XR shoulder RT min 2V* XR/XR shoulder RT min 2V*: Acute pain of right shoulder [employer] Other XR shoulder RT min 2V* RIGHT SHOULDER - - 3 views [employer] Other XR shoulder RT min 2V* CLINICAL HISTORY: Right shoulder pain for years. [employer] Other XR shoulder RT min 2V* COMPARISON: None [employer] Other XR shoulder RT min 2V* FINDINGS: No [employer] Other XR shoulder RT min 2V* Severe degenerati ve changes right humeral joint. Mild degenerative changes right AC joint. No acute [employer] Other XR shoulder RT min 2V* bony process. [employer] Other XR shoulder RT min 2V* 4 XR/XR shoulder RT min 2V* [employer] Other XR shoulder RT min 2V* IMPRESSION: N [employer] Other XR shoulder RT min 2V* DEGENERATIVE WHITE GES INVOLVING THE RIGHT SHOULDER WITHOUT ACUTE BONY PROCESS. [employer] Other XR shoulder RT min 2V* Impression dictat ed by: Dedrick Arroyo Jr., D.O.09/13/2022 4:36 PM [employer] Other XR shoulder RT min 2V* Dictation Locatio n: [facility]-04 [employer] Other XR shoulder RT min 2V* Transcribed By: Carolin RODRIGUEZ 09/13/22 1636 [employer] Other XR shoulder RT min 2V* Dictated By: Catracho Arroyo Jr, DO 09/13/22 [facility] [employer] Other XR shoulder RT min 2V* Signed By: No [employer] Other XR shoulder RT min 2V* 09/13/22 1636 [employer] Other MG MAMM SCREEN 3D LISA CADon 02-23-2022 MG MAMM SCREEN 3D LISA CAD Patient: NATA PETE Exam Date: 02/23/2022 : 1945 Gender:F Ordering : MRS. AISHA RAGLAND Admission #: [id number] Family : Order #: [id number] CLICK HERE TO VIEW EXAM RADIOLOGY REPORT [...] breast cancer at age 72. LOCATION: [facility] BREAST COMPOSITION: Scattered areas fibroglandular density. FINDINGS: [...] LUMP SHOULD BE BIOPSIED. Dictated by: Eliz Burk MD on 02/24/2022 at 08:16 Approved by: Eliz Burk MD on 02/24/2022 at 08:28 Normal [facility] XR knee BI 3Von 10-05-2021 XR knee BI 3V [facility] [employer] Other XR knee BI 3V [facility] [employer] Other XR knee BI 3V [address] [place] [address] [employer] Other XR knee BI 3[place] [address] [facility] [employer] Other XR knee BI 3V XRay Report [employer] Other XR knee BI 3V Signed [place] [employer] Other XR knee BI 3V Patient: Moncho Pete MR#: [id number] [employer] Other XR knee BI 3V [id number] [employer] Other XR knee BI 3V : 1945 Acct:[id number] [employer] Other XR knee BI 3V Age/Sex: 76 / F ADM Date: 10/05/21 [employer] Other XR knee BI 3V Loc: [facility] Room: Type : REG CLI [employer] Other XR knee BI 3V Attending Dr: João Soto DO [employer] Other XR knee BI 3V Ordering Provider: Li Soto DO [employer] Other XR knee BI 3V Date of Service: 10/05/21 [employer] Other XR knee BI 3V XR/XR knee BI 3V - NOT FOR ER USE: Pain in right knee;Pain in left knee [employer] Other XR knee BI 3V Copies to: João Soto, [employer] Other XR knee BI 3V BILATERAL KNEES - 3 views each [employer] Other XR knee BI 3V COMPARISON: 07/20/2020 right knee. [employer] Other XR knee BI 3V CLINICAL DATA: Bilat eral generalized knee pain and difficulty ambulating. No injury. [employer] Other XR knee BI 3V Standing AP, lateral and sunrise views were obtained. There is osteopenia. No acute fractures or [employer] Other XR knee BI 3V dislocation are note d. There is medial subluxation of the femur with respect to the tibia on both [employer] Other XR knee BI 3V sides. There is also lateral subluxation of the patella bilaterally. There is moderate joint space [employer] Other XR knee BI 3V narrowing at these s ites. There is also narrowing at the lateral compartments. [employer] Other XR knee BI 3V marginal spurring is seen. There is a trace amount of joint fluid. No focal soft tissue swelling is [employer] Other XR knee BI 3V noted. [employer] Other XR knee BI 3V X R/XR knee BI 3V - NOT FOR ER USE [employer] Other XR knee BI 3V IMPRESSION: [employer] Other XR knee BI 3V OSTEOPENIA AND ADVAN DONN DEGENERATIVE CHANGES. [employer] Other XR knee BI 3V Impression dictated by: Shahana Pérez M.D.10/05/2021 2:58 PM [employer] Other XR knee BI 3V Dictation Location: [facility]- [employer] Other XR knee BI 3V Transcribed By: PWS 10/05/21 [facility] [employer] Other XR knee BI 3V Dictated By: Shahana Pérez MD 10/05/21 [facility] [employer] Other XR knee BI 3V Signed By: [employer] Other XR knee BI 3V 10/05/21 [facility] [email or web address] Other Q - COMPREHENSIVE METABOLIC PANEL W/EGFRon 09-30-2021 Albumin [Mass/Vol] 4.0 g/dL Normal 3.6-5.1 Stoney villalba [place] Personnel Quality Assurance Auditor Comment on above: Order Comment: [facility] Testing performed at: QPT, [facility], [address] [facility], [address] [place] [address], [place], [address], Night Nurse: Willie Rodriguez MD [facility] Collection Date/Time: [facility] Results Received Date/Time: [facility] Reported Date/Time: FASTING: NO Performed By: #### 1 [id number] #### [facility] Default [address] [place] [address] Albumin/Globulin [Mass ratio] 2.4 {ratio} Normal 1.0-2.5 [facility] Specialist Comment on above: Order Comment: [facility] Testing performed at: [facility], [address] [place] [address], [address] [place] [address], [address] [place] [address], Night Nurse: Willie Rodriguez MD [facility] Collection Date/Time: [facility] Results Received Date/Time: [facility] Reported Date/Time: FASTING: NO Performed By: #### 1 [id number] #### [facility] Default [address] [place] [address] ALP [Catalytic activity/Vol] 68 U/L Normal 37-153 [facility] Specialist Comment on above: Order Comment: [facility] Testing performed at: [facility], [address] [place] [address], [address] [place] [address], [address] [place] [address], Night Nurse: Willie Rodriguez MD [facility] Collection Date/Time: [facility] Results Received Date/Time: [facility] Reported Date/Time: FASTING: NO Performed By: #### 1 [id number] #### [facility] [address] [place] [address] ALT [Catalytic activity/Vol] 8 U/L Normal 6-29 [facility] Specialist Comment on above: Order Comment: [facility] Testing performed at: [facility], [address] [place] [address], [address] [place] [address], [address] [place] [address], Night Nurse: Willie Rodriguez MD [facility] Collection Date/Time: [facility] Results Received Date/Time: [facility] Reported Date/Time: FASTING: NO Performed By: #### 1 [id number] #### [facility] [address] [place] [address] AST [Catalytic activity/Vol] 12 U/L Normal 10-35 [facility] Comment on above: Order Comment: [facility] Testing performed at: [facility], [address] [place] [address], [address] [place] [address], [address] [place] [address], Night Nurse: Willie Rodriguez MD [facility] Collection Date/Time: [facility] Results Received Date/Time: [facility] Reported Date/Time: FASTING: NO Performed By: #### 1 [id number] #### [facility] [address] [place] [address] Bilirubin [Mass/Vol] 0.4 mg/dL Normal 0.2-1.2 [facility] Specialist Comment on above: Order Comment: [facility] Testing performed at: [facility], [address] [place] [address], [address] [place] [address], [address] [place] [address], Night Nurse: Willie Rodriguez MD [facility] Collection Date/Time: [facility] Results Received Date/Time: [facility] Reported Date/Time: FASTING: NO Performed By: #### 1 0231A #### [facility] [address] [place] [address] Calcium [Mass/Vol] 9.8 mg/dL Normal 8.6-10.4 [facility] Comment on above: Order Comment: [facility] Testing performed at: [facility], [address] [place] [address], [address] [place] [address], [address] [place] [address], Night Nurse: Willie Rodriguez MD [facility] Collection Date/Time: [facility] Results Received Date/Time: [facility] Reported Date/Time: FASTING: NO Performed By: #### 1 0231A #### [facility] Default [address] [place] [address] Chloride [Moles/Vol] 96 mmol/L Low 98-110 [facility] Specialist Comment on above: Order Comment: [facility] Testing performed at: [facility], [address] [place] [address], [address] [place] [address], [address] [place] [address], Night Nurse: Willie Rodriguez MD [facility] Collection Date/Time: [facility] Results Received Date/Time: [facility] Reported Date/Time: FASTING: NO Performed By: #### 1 [id number] #### [facility] Default [address] [place] [address] CO2 [Moles/Vol] 28 mmol/L Normal 20-32 [facility] Specialist Comment on above: Order Comment: [facility] Testing performed at: [facility], [address] [place] [address], [address] [place] [address], [address] [place] [address], Night Nurse: Willie Rodriguez MD [facility] Collection Date/Time: [facility] Results Received Date/Time: [facility] Reported Date/Time: FASTING: NO Performed By: #### 1 [id number] #### [facility] Default [address] [place] [address] Creatinine [Mass/Vol] 0.43 mg/dL Low 0.60-0.93 [facility] Personnel Quality Assurance Auditor Comment on above: Order Comment: [facility] Testing performed at: [facility], [address] [place] [address], [address] [place] [address], [address] [place] [address], Night Nurse: Willie Rodriguez MD [facility] Collection Date/Time: [facility] Results Received Date/Time: [facility] Reported Date/Time: FASTING: NO Result Comment: For patients >49 years of age, the reference limit for Creatinine is approximately 13% higher for people identified as -[place]. Performed By: #### 1 [id number] #### [facility] Default [address] [place] [address] eGFRAA ([facility]) 116 mL/min/1.73m2 Normal > OR = 60 [facility] Personnel Quality Assurance Auditor Comment on above: Order Comment: [facility] Testing performed at: [facility], [address] [facility], [address] [place] [address], [address] [place] [address], Night Nurse: Willie Rodriguez MD [facility] Collection Date/Time: [facility] Results Received Date/Time: [facility] Reported Date/Time: FASTING: NO Performed By: #### 1 [id number] #### [facility] Default [address] [place] [address] eGFRNAA ([facility]) 100 mL/min/1.73m2 Normal > OR = 60 No [facility] [place] Personnel Quality Assurance Auditor Comment on above: Order Comment: [facility] Testing performed at: [facility], [address] [place] [address], [address] [place] [address], [address] [place] [address], Night Nurse: Willie Rodriguez MD [facility] Collection Date/Time: [facility] Results Received Date/Time: [facility] Reported Date/Time: FASTING: NO Performed By: #### 1 [id number] #### [facility] Default [address] [place] [address] Globulin (S) [Mass/Vol] 1.7 g/dL Low 1.9-3.7 [facility] Personnel Quality Assurance Auditor Comment on above: Order Comment: [facility] Testing performed at: [facility], [address] [place] [address], [address] [place] [address], [address] [place] [address], Night Nurse: Willie Rodriguez MD [facility] Collection Date/Time: [facility] Results Received Date/Time: [facility] Reported Date/Time: FASTING: NO Performed By: #### 1 [id number] #### [facility] Default [address] [place] [address] Glucose [Mass/Vol] 98 mg/dL Normal 65-139 [facility] Personnel Quality Assurance Auditor Comment on above: Order Comment: [facility] Testing performed at: [facility], [address] [place] [address], [address] [place] [address], [address] [place] [address], Night Nurse: Willie Rodriguez MD [facility] Collection Date/Time: [facility] Results Received Date/Time: [facility] Reported Date/Time: FASTING: NO Result Comment: Non-fasting reference interval Performed By: #### 1 [id number] #### [facility] Default [address] [place] [address] Potassium [Moles/Vol] 4.7 mmol/L Normal 3.5-5.3 Damian bull [facility] CityPersonnel Quality Assurance Auditor Comment on above: Order Comment: [facility] Testing performed at: [facility], [address] [place] [address], [address] [place] [address], [address] [place] [address], Night Nurse: Willie Rodriguez MD [facility] Collection Date/Time: [facility] Results Received Date/Time: [facility] Reported Date/Time: FASTING: NO Performed By: #### 1 [id number] #### [facility] Default [address] [place] [address] Protein [Mass/Vol] 5.7 g/dL Low 6.1-8.1 [facility] Personnel Quality Assurance Auditor Comment on above: Order Comment: [facility] Testing performed at: [facility], [address] [place] [address], [address] [place] [address], [address] [place] [address], Night Nurse: Willie Rodriguez MD [facility] Collection Date/Time: [facility] Results Received Date/Time: [facility] Reported Date/Time: FASTING: NO Performed By: #### 1 [id number] #### [facility] Default [address] [place] [address] Sodium [Moles/Vol] 130 mmol/L Low 135-146 [facility] Personnel Quality Assurance Auditor Comment on above: Order Comment: [facility] Testing performed at: [facility], [address] [place] [address], [address] [place] [address], [address] [place] [address], Night Nurse: Willie Rodriguez MD [facility] Collection Date/Time: [facility] Results Received Date/Time: [facility] Reported Date/Time: FASTING: NO Performed By: #### 1 [id number] #### [facility] Default [address] [place] [address] Urea nitrogen [Mass/Vol] 14 mg/dL Normal 7-25 [facility] Personnel Quality Assurance Auditor Comment on above: Order Comment: [facility] Testing performed at: [facility], [address] [facility], [address] [place], [address], Night Nurse: Willie Rodriguez MD [facility] Collection Date/Time: [facility] Results Received Date/Time: [facility] Reported Date/Time: FASTING: NO Performed By: #### 1 [id number] #### [facility] Default [address] [place] [address] Urea nitrogen/Creatinine [Mass ratio] 33 mg/mg High 01-04 [facility] Specialist Comment on above: Order Comment: [facility] Testing performed at: [facility], [address] [facility], [address] [place], [address], Night Nurse: Willie Rodriguez MD [facility] Collection Date/Time: [facility] Results Received Date/Time: [facility] Reported Date/Time: FASTING: NO Performed By: #### 1 [id number] #### [facility] Default [address] [place] [address] PROF 14(COMP METB)on 021 Albumin [Mass/Vol] 3.6 g/dL Normal 3.5-5.0 [facility] Comment on above: Performed By: #### C MP #### [facility] [address] [place], [place] [address] [place] Albumin/Globulin [Mass ratio] 1.3 {ratio} Normal [facility] Comment on above: Performed By: #### C MP #### [facility] [address] [place], [place] [address] [place] ALP [Catalytic activity/Vol] 57 U/L Normal 38-126 [facility] Comment on above: Performed By: #### C MP #### [facility] [address] [place], [place] [address] [place] ALT [Catalytic activity/Vol] 16 U/L Normal 9-52 [facility] Comment on above: Performed By: #### C MP #### [facility] [address] [place] [id number] [place] Anion gap [Moles/Vol] 9.4 mmol/L Normal [facility] Comment on above: Performed By: #### C MP #### [facility] [address] [place] [address] [place] AST [Catalytic activity/Vol] 14 U/L Normal 14-36 [facility] Comment on above: Performed By: #### C MP #### [facility] [address] [place] [id number] [place] Bilirubin [Mass/Vol] 0.4 mg/dL Normal 0.2-1.3 [facility] Comment on above: Performed By: #### C MP #### [facility] [address] [place] [address] [place] Calcium [Mass/Vol] 9.1 mg/dL Normal 8.4-10.2 [facility] Comment on above: Performed By: #### C MP #### [facility] [address] [place] [address] [place] Chloride [Moles/Vol] 102 mmol/L Normal 98-107 [facility] Comment on above: Performed By: #### C MP #### [facility] [address] [place], [place] [id number] [place] CO2 [Moles/Vol] 28.8 mmol/L Normal 22.0-30.0 [facility] Comment on above: Performed By: #### C MP #### [facility] [address] [place] [phone] [place] Creatinine [Mass/Vol] 0.53 mg/dL Normal 0.52-1.04 [facility] Comment on above: Performed By: #### C MP #### [facility] [address] [place] [phone] [place] EGFR-AF SOUTH AFRICAN >60 Normal >=60 [facility] Comment on above: Performed By: #### C MP #### [facility] [address] [place] [phone] [place] EGFR-NON AF SOUTH AFRICAN >60 Normal >=60 [facility] Comment on above: Performed By: #### C MP #### [facility] [address] [place], [place] [address] [place] Globulin (S) [Mass/Vol] 2.7 g/dL Normal [facility] Comment on above: Performed By: #### C MP #### [facility] [address] [place], [place] [address] [place] Glucose [Mass/Vol] 98 mg/dL Normal 74-106 [facility] Comment on above: Performed By: #### C MP #### [facility] [address] [place] [phone] [place] Potassium [Moles/Vol] 4.2 mmol/L Normal 3.4-5.0 [facility] Comment on above: Performed By: #### C MP #### [facility] [address] [place] [phone] [place] Protein [Mass/Vol] 6.3 g/dL Normal 6.1-8.2 [facility] Comment on above: Performed By: #### C MP #### [facility] [address] [place] [phone] [place] Sodium [Moles/Vol] 136 mmol/L Critically low 137-145 Th [facility] Comment on above: Performed By: #### C MP #### [facility] [address] [place] [phone] [place] Urea nitrogen [Mass/Vol] 15.0 mg/dL Normal 7.0-17.0 [facility] Comment on above: Performed By: #### C MP #### [facility] [address] [place], [place] [address] [place] Urea nitrogen/Creatinine [Mass ratio] 28.3 mg/mg Normal [facility] Comment on above: Performed By: #### C MP #### [facility] [address] [place], [place] [address] [place] CNOVSPon 11-07-2017 CNOVSP Visit (SP) Office ([place]) MAYDA PETE ([id number]) 1945 FDate Time Provider Department11/07/17 3:00 PM WAYNE PAULA During your visit today, we recorded the following information about you: Temperature Pulse Respiration Blood pressure 98.4 degrees 63/minute 18/minute 150/70 Weight Height 66.6 kg 1.495 Digna Paula MD 11/12/2017 11:43 AM SignedCHIEF COMPLAINT: low [...] Never UsedNo family history on file.Current Outpatient Prescriptions:simvastatin (ZOCOR) 40 mg tablet does not know [...] STRESS FORMULA ORAL) Take by mouth.Green Tea Mcgovern Extract (GREEN TEA) cap Take by mouth.DIPHENHYDRAMINE HCL (BENADRYL ALLERGY ORAL) Take by mouth.No current facility-administered medications for this visit.REVIEW OF SYSTEMS:Constitutional: No fever, night sweats or unwanted weight loss. Appetite stableHead and neck: No recurrent sinus infectionsRespiratory: No cough or hemoptysis.Cardiovascular : No chest pain or palpitations.GI: No nausea, vomiting, diarrhea or GI bleed. No bloating or early satietySkin: No rash or lesions.PHYSICAL EXAMINATION:BP 150/70 Pulse 63 Temp 36.9 ?C (98.4 ?F) (Oral) Resp 18 Ht 149.5 cm(4' 10.86 ) Wt 66.6 kg (146 lb 12.8 oz) SpO2 100% BMI 29.79 kg/g0NWBEYONE EXAMINATIONGeneral: Alert and oriented, no distress, pleasant and cooperative.Heart: Regular, normal S1 and S2, no murmurs, rubs, or gallopsLungs: Clear to auscultation bilaterallyAbdomen: NT ND, no organomegalyExtremities: Feet/ankles without edema, posterior tibial pulses full andsymmetricalASSESSMENT/ PLAN: Nata Pete is a 72 year old female with lymphopenia. Nonew medication changes at the time this was originally noted. Feels well. Labsnormal. Discussed possible causes of transient abnormality.Patient may followup with Dr. Dale at this time and can return as needed or if abnormalityre-emerges.1. Lymphopenia-labs without lymphopenia-suspect this was transient-can follow up with Dr. Dale and RTC if abnormality recurs/persists or otherabnormality developsAled LESVIA Velizeferring Provider: WAYNE PAULA [[id number]]Allergies As of Date: 11/07/2017 Noted Allergy ReactionBEES 01/20/2016 12 - Shortness of BreathMONISTAT 1 (TIOCONAZOLE) 01/20/2016 14 - Other: See Comments Comments: burning TRAMADOL 14 - Other: See Comments Comments: Hot and dizzyDate Reviewed: 11/07/2017Reviewed by: Caprice Mendoza - Fully AssessedReason for Visit: lymphopenia [Other] [...] this encounter SIMVASTATIN 40 MG TABLET >> Caprice Mendoza 11/07/2017 3:00 PM >> CAPRICE MENDOZA Nov 07, 2017 3:00 PM Received from: [facility] CHOLECALCIFEROL (VITAMIN D3) 1,000 UNIT TABLET >> Caprice Mendoza 11/07/2017 3:00 PM >> CAPRICE MENDOZA Nov 07, 2017 3:00 PM Received from: [facility] VITAMIN B-12 ORAL >> Caprice Mendoza 11/07/2017 3:01 PM >> CAPRICE MENDOZA Nov 07, 2017 3:01 PM Received from: [facility] FISH OIL ORAL >> Caprice Mendoza 11/07/2017 3:01 PM >> CAPRICE MENDOZA Nov 07, 2017 3:01 PM Received from: [facility] ATENOLOL 50 MG TABLET >> Caprice Mendoza 11/07/2017 3:02 PM >> IRAIDA CAPRICE SunNov 07, 2017 3:02 PM Received from: [facility] LISINOPRIL 20 MG TABLET >> Caprice Mendoza 11/07/2017 3:02 PM >> CAPRICE MENDOZA SunNov 07, 2017 3:02 PM Received from: [facility] VITAMIN C ORAL >> Caprice Mendoza 11/07/2017 3:00 PM >> CAPRICE MENDOZA SunNov 07, 2017 3:00 PM [facility]: [facility] CtrProblem List As Of Date 11/07/2017 Noted Resolved Lymphopenia [D72.810] INVALID FOR*Encounter Status:Closed by WAYNE PAULA MD on 11/12/17 Normal [facility] Comp Metabolic Panelon 11-07 Alanine aminotransferase (ALT) 17 U/L Normal 7-38 [facility] Comment on above: Performed By: #### L D6, CMP ####[place] [phone] Albumin 4.1 g/dL Normal 3.9-4.9 [facility] Comment on above: Performed By: #### L D6, CMP ####[place] [phone] Alkaline phosphatase (ALP) 48 U/L Normal 32-117 [facility] Comment on above: Performed By: #### L D6, CMP ####[facility] [place] [phone] Anion gap 12 mmol/L Normal 9-18 [facility] Comment on above: Performed By: #### L D6, CMP ####[facility] [place] [phone] Aspartate aminotransferase (AST) 20 U/L Normal 13-35 [facility] Comment on above: Performed By: #### L D6, CMP ####[place] [phone] Bilirubin (total) 0.3 mg/dL Normal 0.2-1.3 [facility] Comment on above: Performed By: #### L D6, CMP ####[place] [address] [address] [place], [place] [phone] Calcium 9.0 mg/dL Normal 8.5-10.2 [facility] Comment on above: Performed By: #### L D6, CMP ####[place] [address] [address] [place], [place] [phone] Chloride 100 mmol/L Normal 97-105 [facility] Comment on above: Performed By: #### L D6, CMP ####[place] [address] [address] [place], [place] [phone] CO2 27 mmol/L Normal 22-30 [facility] Comment on above: Performed By: #### L D6, CMP ####[place] [address] [address] [place], [place] [phone] Creatinine 0.62 mg/dL Normal 0.58-0.96 [facility] Comment on above: Performed By: #### L D6, CMP ####[place] [address] [address] [place], [place] [phone] eGFR (non-black) mL/min/{1.73_m2} Normal [facility] Comment on above: Result Comment: eGFR [...] GFR. Performed By: #### L D6, CMP ####[place] [address] [address] [place], [place] [phone] Glucose mass conc 92 mg/dL Normal 74-99 [facility] Comment on above: Result Comment: The [place] Diabetes Association (ADA) provides guidance for cutoff [...] Standards of Medical Care in Diabetes 2016, [place] Diabetes Association. Diabetes Care. 2016.39(Suppl 1). Performed By: #### L D6, CMP ####[address] [phone] Potassium molar conc 4.4 mmol/L Normal 3.7-5.1 [facility] Comment on above: Performed By: #### L D6, CMP ####[address] [phone] Protein 6.4 g/dL Normal 6.3-8.0 [facility] Comment on above: Performed By: #### L D6, CMP ####[address] [phone] Sodium 139 mmol/L Normal 136-144 [facility] Comment on above: Performed By: #### L D6, CMP ####[address] [place], [place] [phone] Urea nitrogen 15 mg/dL Normal 7-21 [facility] Comment on above: Performed By: #### L D6, CMP ####[address] [phone] LDon 11-07-2017 LD 166 U/L Normal 135-214 [facility] Comment on above: Performed By: #### L D6, CMP ####[id number] [place], [place] [phone] PROGRESSon 11-07-2017 PROGRESS HNO ID: [id number] thor: Wayne Malave: (none)Author Type: PhysicianType: Progress NotesFiled: [...] Never UsedNo family history on file.Current Outpatient Prescriptions:simvastatin (ZOCOR) 40 mg tablet does not know [...] STRESS FORMULA ORAL) Take by mouth.Green Tea Mcgovern Extract (GREEN TEA) cap Take by mouth.DIPHENHYDRAMINE HCL (BENADRYL ALLERGY ORAL) Take by mouth.No current facility-administered medications for this visit.REVIEW OF SYSTEMS:Constitutional: No fever, night sweats or unwanted weight loss. AppetitestableHead and neck: No recurrent sinus infectionsRespiratory: No cough or hemoptysis.Cardiovascular : No chest pain or palpitations.GI: No nausea, vomiting, diarrhea or GI bleed. No bloating or earlysatietySkin: No rash or lesions.PHYSICAL EXAMINATION:BP 150/70 Pulse 63 Temp 36.9 ?C (98.4 ?F) (Oral) Resp 18 Ht 149.5cm (4' 10.86 ) Wt 66.6 kg (146 lb 12.8 oz) SpO2 100% BMI 29.79 kg/i4JXMQYPBS EXAMINATIONGeneral: Alert and oriented, no distress, pleasant and cooperative.Heart: Regular, normal S1 and S2, no murmurs, rubs, or gallopsLungs: Clear to auscultation bilaterallyAbdomen: NT ND, no organomegalyExtremities: Feet/ankles without edema, posterior tibial pulses full andsymmetricalASSESSMENT/ PLAN: Nata Pete is a 72 year old female withlymphopenia. No new medication changes at the time this was originallynoted. Feels well. Labs normal. Discussed possible causes of transientabnormality.Carito ent may follow up with Dr. Dale at this time and canreturn as needed or if abnormality re-emerges.1. Lymphopenia-labs without lymphopenia-suspect this was transient-can follow up with Dr. Dale and RTC if abnormality recurs/persists orother abnormality developsAlfred Carolin Paula MD Normal [facility] Remote CBCDIF (for [facility] use o nly)on 11-07-2017 Abs Baso 0.03 k/uL Normal 0.00-0.10 [facility] Abs Blount 0.53 k/uL Normal 0.00-0.86 [facility] Abs Neut 3.83 k/uL Normal 1.45-7.50 [facility] Basophils/100 WBC Auto (Bld) 0.5 % Normal [facility] Eosinophils 0.31 10*3/uL Normal 0.00-0.45 [facility] Eosinophils/100 leukocytes 5.1 % Normal [facility] Erythrocyte distribution width Auto Ratio (RBC) 13.4 % Normal 11.5-15.0 [facility] Erythrocytes (RBC) 4.11 10*6/uL Normal 3.90-5.20 [facility] Hematocrit (HCT) 36.2 % Normal 36.0-46.[address] [facility] Hemoglobin mass conc (Bld) 12.2 g/dL Normal 11.5-15.5 [facility] Lymphocytes 1.42 10*3/uL Normal 1.00-4.00 [facility] Lymphocytes/100 leukocytes 23.2 % Normal [facility] MCH 29.7 pG Normal 26.0-34.0 [facility] MCHC mass conc (RBC) 33.7 g/dL Normal 30.5-36.0 [facility] MCV 88.1 fL Normal 80.0-100.0 [facility] Monocytes/100 leukocytes 8.7 % Normal [facility] Neutrophils/100 WBC Auto (Bld) 62.5 % Normal [facility] Platelet mean volume (PMV) 10.4 fL Normal 9.0-12.7 [facility] Platelets 211 10*3/uL Normal 150-400 [facility] WBC (Leukocytes) 6.12 10*3/uL Normal 3.70-11.00 [facility] Vital Signs Date Time Vital Sign Value Performing Clinician Facility 10-14-2024 15:48-0400 Body height 147.3 cm Aisha PEREZ Work Phone: [facility] 10-14-2024 15:48-0400 Body mass index (BMI) [Ratio] 26.96 kg/m2 Aisha PEREZ Work Phone: [facility] 10-14-2024 15:48-0400 Body temperature 98.91 [degF] Aisha PEREZ Work Phone: [facility] 10-14-2024 15:48-0400 Body weight 58.51 kg Aisha PEREZ Work Phone: [facility] 04-01-2025 15:48-0400 Diastolic blood pressure 72 mm[Hg] Aisha Ragland PA Work Phone: [facility] 10-14-2024 15:48-0400 Heart rate 68 /min Aishamakayla Aroramers PA Work Phone: [facility] 10-14-2024 15:48-0400 SaO2% (BldA) [Mass fraction] 98 % Aisha Aroramers PA Work Phone: [facility] 10-14-2024 15:48-0400 Systolic blood pressure 118 mm[Hg] Aisha Ragland PA Work Phone: [facility] 09-11-2024 11:19-0500 Body temperature 98.5 [degF] Aisha Aroramers PA-C Work Phone: [facility] 09-11-2024 11:19-0500 Diastolic blood pressure 77 mm[Hg] Aisha Aroramers PA-C Work Phone: [facility] 09-11-2024 11:19-0500 Heart rate 74 /min Aishamakayla Aroramers PA-C Work Phone: [facility] 09-11-2024 11:19-0500 Respiratory rate 18 /min Aisha Aroramers PA-C Work Phone: [facility] 09-11-2024 11:19-0500 SaO2% (BldA) [Mass fraction] 97 % Aisha Ragland PA-C Work Phone: [facility] 09-11-2024 11:19-0500 Systolic blood pressure 127 mm[Hg] Aisha Ragland PA-C Work Phone: [facility] 09-11-2024 04:11-0500 Body weight 61.1 kg Aisha Ragland PA-C Work Phone: [facility] 09-09-2024 11:05-0500 Inhaled oxygen flow rate 1 L/min Aisha Aroramers PA-C Work Phone: [facility] 09-09-2024 06:19-0500 Body height 144.78 cm Aisha Ragland PA-C Work Phone: [facility] 08-21-2024 15:16-0500 Body height 147.3 cm Aisha Ragland PA Work Phone: [facility] 08-21-2024 15:16-0500 Body mass index (BMI) [Ratio] 26.96 kg/m2 Aisha Ragland PA Work Phone: [facility] 08-21-2024 15:16-0500 Body temperature 98.4 [degF] Aisha Ragland PA Work Phone: [facility] 08-21-2024 15:16-0500 Body weight 58.51 kg Aisha Ragland PA Work Phone: [facility] 08-21-2024 15:16-0500 Diastolic blood pressure 84 mm[Hg] Aisha Ragland PA Work Phone: [facility] 08-21-2024 15:16-0500 Heart rate 67 /min Aisha Ragland PA Work Phone: [facility] 08-21-2024 15:16-0500 SaO2% (BldA) [Mass fraction] 98 % Aisha Ragland PA Work Phone: [facility] 08-21-2024 15:16-0500 Systolic blood pressure 130 mm[Hg] Aisha Ragland PA Work Phone: [facility] 08-11-2024 16:33-0500 Body height 147.3 cm Tabitha Valentino DPM Work Phone: [facility] 08-11-2024 16:33-0500 Body mass index (BMI) [Ratio] 26.96 kg/m2 Tabitha Valentino DPM Work Phone: [facility] 08-11-2024 16:33-0500 Body weight 58.51 kg Tabitha Valentino DPM Work Phone: [facility] 08-11-2024 16:33-0500 Diastolic blood pressure 83 mm[Hg] Tabitha Valentino DPM Work Phone: [facility] 08-11-2024 16:33-0500 Heart rate 63 /min Tabitha Valentino DPM Work Phone: [facility] 08-11-2024 16:33-0500 Systolic blood pressure 144 mm[Hg] Tabitha Valentino DPM Work Phone: [facility] 07-23-2024 15:13-0500 Body height 144.78 cm [facility] 07-23-2024 15:13-0500 Body mass index (BMI) [Ratio] 27 kg/m2 [facility] 07-23-2024 15:13-0500 Body weight 56.69 kg [facility] 07-07-2024 14:46-0500 Body height 147.3 cm Aisha Ragland PA Work Phone: [facility] 07-07-2024 14:46-0500 Body temperature 98.4 [degF] Aisha Ragland PA Work Phone: [facility] 07-07-2024 14:46-0500 Diastolic blood pressure 70 mm[Hg] Aisha Ragland PA Work Phone: [facility] 07-07-2024 14:46-0500 Heart rate 68 /min Aisha Ragland PA Work Phone: [facility] 07-07-2024 14:46-0500 SaO2% (BldA) [Mass fraction] 98 % Aisha Ragland PA Work Phone: [facility] 07-07-2024 14:46-0500 Systolic blood pressure 118 mm[Hg] Aisha Ragland PA Work Phone: [facility] 06-07-2024 14:01-0500 Body height 144.78 cm [facility] 06-07-2024 14:01-0500 Body mass index (BMI) [Ratio] 25.7 kg/m2 [facility] 06-07-2024 14:01-0500 Body temperature 100.5 [degF] [facility] 06-07-2024 14:01-0500 Body weight 53.97 kg [facility] 06-07-2024 14:01-0500 Diastolic blood pressure 73 mm[Hg] [facility] 06-07-2024 14:01-0500 Heart rate 74 /min [facility] 06-07-2024 14:01-0500 Respiratory rate 16 /min [facility] 06-07-2024 14:01-0500 SaO2% (BldA) [Mass fraction] 96 % [facility] 06-07-2024 14:01-0500 Systolic blood pressure 131 mm[Hg] [facility] 06-02-2024 15:46-0500 Body height 147.3 cm Christopher Bohach DPM Work Phone: [facility] 06-02-2024 15:46-0500 Body mass index (BMI) [Ratio] 26.96 kg/m2 Christopher Bohach DPM Work Phone: [facility] 06-02-2024 15:46-0500 Body weight 58.51 kg Christopher Bohach DPM Work Phone: [facility] 06-02-2024 15:46-0500 Diastolic blood pressure 65 mm[Hg] Christopher Bohach DPM Work Phone: [facility] 06-02-2024 15:46-0500 Heart rate 65 /min Christopher Bohach DPM Work Phone: [facility] 06-02-2024 15:46-0500 Systolic blood pressure 147 mm[Hg] Christopher Bohach DPM Work Phone: [facility] 04-24-2024 15:17-0400 Body height 147.3 cm Aisha PEREZ Work Phone: [facility] 04-24-2024 15:17-0400 Body mass index (BMI) [Ratio] 27.15 kg/m2 Aisha Ragland PA Work Phone: [facility] 04-24-2024 15:17-0400 Body temperature 98.4 [degF] Aisha Ragland PA Work Phone: [facility] 04-24-2024 15:17-0400 Body weight 58.92 kg Aisha Ragland PA Work Phone: [facility] 04-24-2024 15:17-0400 Heart rate 63 /min Aisha Ragland PA Work Phone: [facility] 04-24-2024 15:17-0400 SaO2% (BldA) [Mass fraction] 95 % Aisha Ragland PA Work Phone: [facility] 03-24-2024 16:17-0400 Body height 147.3 cm Tabitha Bohach DPM Work Phone: [facility] 03-24-2024 16:17-0400 Body mass index (BMI) [Ratio] 25.71 kg/m2 Christopher Bohach DPM Work Phone: [facility] 03-24-2024 16:17-0400 Body weight 55.79 kg Christopher Bohach DPM Work Phone: [facility] 03-24-2024 16:17-0400 Diastolic blood pressure 67 mm[Hg] Christopher Bohach DPM Work Phone: [facility] 03-24-2024 16:17-0400 Heart rate 54 /min Christopher Bohach DPM Work Phone: [facility] 03-24-2024 16:17-0400 Systolic blood pressure 139 mm[Hg] Christopher Bohach DPM Work Phone: [facility] 03-10-2024 18:00-0400 Diastolic blood pressure 72 mm[Hg] PA-C Aisha Ragland Work Phone: [facility] 03-10-2024 18:00-0400 Heart rate 74 /min PA-C Aisha Obie Work Phone: [facility] 03-10-2024 18:00-0400 Respiratory rate 18 /min PA-C Aisha Obie Work Phone: [facility] 03-10-2024 18:00-0400 SaO2% (BldA) [Mass fraction] 98 % PA-C Aisha Obie Work Phone: [facility] 03-10-2024 18:00-0400 Systolic blood pressure 138 mm[Hg] PA-C Aisha Obie Work Phone: [facility] 03-10-2024 15:27-0400 Body height 144.78 cm PA-C Aisha Ragland Work Phone: [facility] 03-10-2024 15:27-0400 Body temperature 98.5 [degF] PA-C Aisha Ragland Work Phone: [facility] 03-10-2024 15:27-0400 Body weight 58.05 kg PA-C Aisha Ragland Work Phone: [facility] 10-17-2023 10:18-0400 Diastolic blood pressure 64 mm[Hg] Kaci Morton [facility] 10-17-2023 10:18-0400 Heart rate 66 /min Kaci Morton [facility] 10-17-2023 10:18-0400 Mean blood pressure 80 mm[Hg] Kaci Morton [facility] 10-17-2023 10:18-0400 Respiratory rate 14 /min Kaci Morton [facility] 10-17-2023 10:18-0400 Systolic blood pressure 112 mm[Hg] Kaci Morton [facility] 10-01-2023 06:33-0400 Heart rate 78 /min Dillon Bryant [facility] 10-01-2023 06:33-0400 Respiratory rate 16 /min Dillon Bryant [facility] 10-01-2023 06:33-0400 SaO2% (BldA) [Mass fraction] 98 % Dillon Bryant [facility] 10-01-2023 05:23-0400 Body temperature 97.7 [degF] Dillon Bryant [facility] 10-01-2023 05:23-0400 Diastolic blood pressure 75 mm[Hg] Dillon Bryant [facility] 10-01-2023 05:23-0400 Heart rate 74 /min Dillon Bryant [facility] 10-01-2023 05:23-0400 Respiratory rate 16 /min Dillon Bryant [facility] 10-01-2023 05:23-0400 SaO2% (BldA) [Mass fraction] 99 % Dillon Bryant [facility] 10-01-2023 05:23-0400 Systolic blood pressure 139 mm[Hg] Dillon Bryant [facility] 08-14-2023 16:13-0500 Body height 152.4 cm Aisha PEREZ Work Phone: [facility] 08-14-2023 16:13-0500 Body mass index (BMI) [Ratio] 25.82 kg/m2 Aisha PEREZ Work Phone: [facility] 08-14-2023 16:13-0500 Body temperature 99.1 [degF] Aisha PEREZ Work Phone: [facility] 08-14-2023 16:13-0500 Body weight 59.97 kg Aisha Obie PA Work Phone: [facility] 08-14-2023 16:13-0500 Diastolic blood pressure 80 mm[Hg] Aisha Obie PA Work Phone: [facility] 08-14-2023 16:13-0500 Heart rate 64 /min Aisha Obie PA Work Phone: [facility] 08-14-2023 16:13-0500 SaO2% (BldA) [Mass fraction] 97 % Aisha Obie PA Work Phone: [facility] 08-14-2023 16:13-0500 Systolic blood pressure 122 mm[Hg] Aisha Obie PA Work Phone: [facility] 07-15-2023 14:58-0500 Body height 144.78 cm PA-C Aisha Obie Work Phone: [facility] 07-15-2023 14:58-0500 Body temperature 98.5 [degF] PA-C Aisha Obie Work Phone: [facility] 07-15-2023 14:58-0500 Body weight 56.7 kg PA-C Aisha Obie Work Phone: [facility] 07-15-2023 14:58-0500 Diastolic blood pressure 62 mm[Hg] PA-C Aisha Obie Work Phone: [facility] 07-15-2023 14:58-0500 Heart rate 63 /min PA-C Aisha Obie Work Phone: [facility] 07-15-2023 14:58-0500 Respiratory rate 18 /min PA-C Aisha Obie Work Phone: [facility] 07-15-2023 14:58-0500 SaO2% (BldA) [Mass fraction] 98 % PA-C Aisha Obie Work Phone: [facility] 07-15-2023 14:58-0500 Systolic blood pressure 132 mm[Hg] ISELA Aisha Ragland Work Phone: [facility] 06-20-2023 14:45-0500 Body height 152.4 cm Lisa Castillo Other [employer] Other 03-21-2023 13:30-0400 Body height 152.4 cm João Alok Other [employer] Other 03-21-2023 13:30-0400 Body mass index (BMI) [Ratio] 24.41 kg/m2 João Alok Other [employer] Other 03-21-2023 13:30-0400 Body weight 56.7 kg João Alok Other [employer] Other 09-13-2022 13:45-0500 Body height 152.4 cm João Alok Other [employer] Other 09-13-2022 13:45-0500 Body mass index (BMI) [Ratio] 24.02 kg/m2 João Alok Other [employer] Other 09-13-2022 13:45-0500 Body weight 55.79 kg João Alok Other [employer] Other 10-05-2021 13:00-0400 Body height 152.4 cm João Alok Other [employer] Other 10-05-2021 13:00-0400 Body mass index (BMI) [Ratio] 23.43 kg/m2 João Alok Other [employer] Other 10-05-2021 13:00-0400 Body weight 54.43 kg João Soto Other [facility] [employer] Other Encounters Encounter Date Encounter Type Care Provider Facility Start: 10-14-2024 End: 10-14-2024 Patient encounter procedure Aisha PEREZ Work Phone: [facility] Comment on above: Medicare annual well ness visit, subsequent (Primary Dx); Dysuria; Essential hypertension (CMS/HCC); Chronic pain of right knee; Hospital discharge follow-up Start: 10-14-2024 End: 10-14-2024 ambulatory AISHA RAGLAND Not Available Start: 09-22-2024 End: 09-22-2024 ambulatory Aisha Ragland PA-C Work Phone: [facility] Work Phone: Start: 09-22-2024 End: 09-22-2024 Patient encounter procedure Aisha Ragland PA-C Work Phone: [facility] Work Phone: Start: 09-09-2024 Non-patient / Non-visit Marlene Ragland PA-C Work Phone: [facility] Work Phone: Start: 09-09-2024 End: 09-11-2024 Admission to same day surgery center Aisha Ragland PA-C Work Phone: [facility] [place] Start: 09-09-2024 End: 09-11-2024 ambulatory Aisha HINSONC Work Phone: [facility] Work Phone: Start: 09-03-2024 End: 09-03-2024 ambulatory Aisha HINSONC Work Phone: [facility] Work Phone: Start: 09-03-2024 End: 09-03-2024 Encounter for other preprocedural examination Aisha HINSONC Work Phone: [facility] Start: 09-03-2024 End: 09-03-2024 Patient encounter procedure Aisha PEREZ-C Work Phone: [facility] Work Phone: Start: 09-03-2024 End: 09-03-2024 Patient encounter procedure Aisha PEREZ-C Work Phone: [facility] Start: 09-03-2024 End: 09-03-2024 ambulatory Aisha PEREZ-C Work Phone: [facility] Work Phone: Start: 09-01-2024 Registered Recurring Aisha HINSONC Work Phone: [facility] [place] Start: 09-01-2024 ambulatory João Soto Facilit y:[facility] Start: 09-01-2024 Encounter for other preprocedural examination oJão Soto [facility] Start: 08-26-2024 End: 08-26-2024 Patient encounter procedure Aisha PEREZ-C Work Phone: [facility] Work Phone: Start: 08-26-2024 Encounter for preprocedural laboratory examination João Soto [facility] Start: 08-26-2024 End: 08-26-2024 Refill Erin Azar MA [facility] Comment on above: Chronic pain disorde r Start: 08-25-2024 End: 08-28-2024 Refill Aisha PEREZ Work Phone: [facility] Comment on above: Chronic pain disorde r Start: 08-22-2024 End: 08-22-2024 Patient encounter procedure Aisha Ragland PA-C Work Phone: [facility]Pre-Surgical [facility] Work Phone: Start: 08-22-2024 End: 08-22-2024 ambulatory Aisha Ragland PA-C Work Phone: [facility] Work Phone: Start: 08-21-2024 End: 08-21-2024 Office outpatient visit 25 minutes Aisha PEREZ Work Phone: [facility] Comment on above: Chronic pain of righ t knee (Primary Dx); Controlled type 2 diabetes mellitus with diabetic polyneuropathy, without long-term current use of insulin (CMS/HCC); Acute non-recurrent frontal sinusitis; Anxiety; Preop examination Start: 08-21-2024 End: 08-21-2024 ambulatory AISHA RAGLAND Not Available Start: 08-21-2024 End: 08-21-2024 Bamboo flowsheet Aisha PEREZ Work Phone: [facility] Start: 08-21-2024 End: 08-21-2024 Bamboo flowsheet Aisha PEREZ Work Phone: [facility] Start: 08-21-2024 End: 08-21-2024 Preprocedural examination done Aisha PEREZ Work Phone: [facility] Start: 08-11-2024 End: 08-11-2024 ambulatory TABITHA VALENTINO Not Available Start: 08-11-2024 End: 08-11-2024 Patient encounter procedure Tabitha Valentino DPM Work Phone: [facility] Comment on above: Diabetic polyneuropa thy associated with type 2 diabetes mellitus (CMS/HCC) (Primary Dx); Onychomycosis Start: 08-11-2024 End: 08-11-2024 Bamboo flowsheet Tabitha Valentino DPM Work Phone: [facility] Start: 08-11-2024 End: 08-11-2024 Bamboo flowsheet Tabitha Valentino DPM Work Phone: [facility] Start: 07-23-2024 Patient encounter status [facility] Start: 07-23-2024 End: 07-23-2024 ambulatory [facility] Work Phone: Start: 07-23-2024 End: 07-23-2024 Encounter for other preprocedural examination [facility] Start: 07-23-2024 End: 07-23-2024 Patient encounter procedure [facility] Work Phone: Start: 07-14-2024 End: 07-17-2024 Refill Aisha PEREZ Work Phone: [facility] Comment on above: Controlled type 2 di abetes mellitus with diabetic polyneuropathy, without long-term current use of insulin (CMS/HCC) Start: 07-07-2024 End: 07-07-2024 ambulatory AISHA RAGLAND Not Available Start: 07-07-2024 End: 07-07-2024 Office outpatient visit 25 minutes Aisha PEREZ Work Phone: [facility] Comment on above: Reactive depression (CMS/HCC) (Primary Dx); Raynaud's disease without gangrene; Osteoarthritis of multiple joints, unspecified osteoarthritis type; Chronic pain of right knee; Chronic pain disorder Start: 07-07-2024 End: 07-07-2024 Bamboo flowsheet Aisha PEREZ Work Phone: [facility] Start: 07-07-2024 End: 07-07-2024 Bamboo flowsheet Aisha PEREZ Work Phone: [facility] Start: 06-25-2024 End: 06-26-2024 Refill Zuri Hannah MD Work Phone: [facility] Comment on above: Essential hypertensi on (CMS/HCC); Controlled type 2 diabetes mellitus with diabetic polyneuropathy, without long-term current use of insulin (CMS/HCC) Start: 06-17-2024 End: 06-17-2024 Refill Zuri Hannah MD Work Phone: [facility] Comment on above: GERD without esophag itis Start: 06-07-2024 End: 06-07-2024 Patient encounter procedure [facility] Work Phone: Start: 06-02-2024 End: 06-02-2024 ambulatory TABITHA VALENTINO Not Available Start: 06-02-2024 End: 06-02-2024 Patient encounter procedure Tabitha Valentino DPM Work Phone: [facility] Comment on above: Diabetic polyneuropa thy associated with type 2 diabetes mellitus (CMS/HCC) (Primary Dx); Onychomycosis Chronic pain disorde r Start: 05-24-2024 End: 05-26-2024 Refill Aisha PEREZ Work Phone: [facility] Comment on above: Reactive depression (CMS/HCC) Start: 04-24-2024 End: 04-24-2024 Office outpatient visit 25 minutes Aisha PEREZ Work Phone: [facility] Comment on above: Need for immunizatio n against influenza; Controlled type 2 diabetes mellitus with diabetic polyneuropathy, without long-term current use of insulin (CMS/HCC); Chronic pain disorder Start: 04-24-2024 End: 04-24-2024 ambulatory AISHA RAGLAND Not Available Start: 04-23-2024 End: 04-23-2024 ambulatory ISELA Ragland Work Phone: [facility] Work Phone: Start: 04-23-2024 End: 04-23-2024 Patient encounter procedure ISELA Ragland Work Phone: [facility] Work Phone: Start: 04-22-2024 End: 04-23-2024 Isabel Hannah MD Work Phone: [facility] Comment on above: GERD without esophag itis Start: 03-24-2024 End: 03-24-2024 Patient encounter procedure Tabitha Valentino DPM Work Phone: [facility] Comment on above: Diabetic polyneuropa thy associated with type 2 diabetes mellitus (CMS/HCC) (Primary Dx); Onychomycosis Start: 03-24-2024 End: 03-24-2024 ambulatory TABITHA VALENTINO Not Available Start: 03-24-2024 End: 03-24-2024 Bamboo flowsheet Tabitha Valentino DPM Work Phone: [facility] Start: 03-24-2024 End: 03-24-2024 Bamboo flowsheet Tabitha Valentino DPM Work Phone: [facility] Start: 03-13-2024 End: 03-13-2024 ambulatory AISHA RAGLAND Not Available Start: 03-13-2024 End: 03-13-2024 Office outpatient visit 15 minutes Aisha PEREZ Work Phone: [facility] Comment on above: Reactive depression (CMS/HCC) (Primary Dx); Anxiety Start: 03-10-2024 End: 03-10-2024 Emergency department patient visit ISELA Ragland Work Phone: [facility]Emergency [facility] Work Phone: Start: 01-28-2024 End: 01-28-2024 ambulatory AISHA RAGLAND Not Available Start: 12-31-2023 End: 12-31-2023 ambulatory AISHA RAGLAND Not Available Start: 12-19-2023 End: 12-19-2023 ambulatory [facility] Work Phone: Start: 12-19-2023 End: 12-19-2023 Patient encounter procedure [facility] Work Phone: Start: 12-06-2023 End: 12-06-2023 ambulatory TABITHA VALENTINO Not Available Start: 11-03-2023 Patient encounter procedure Tabitha Valentino DPM Work Phone: [facility] Start: 10-17-2023 End: 10-18-2023 ambulatory Kaci Morton Facility:[facility] Start: 10-17-2023 End: 10-18-2023 ambulatory Aisha RAGLAND Facility:[facility] Start: 10-17-2023 End: 10-17-2023 Patient encounter procedure [facility] Start: 10-17-2023 End: 10-17-2023 Pain Management [facility] Start: 10-01-2023 End: 10-01-2023 Emergency department patient visit Dillon Hurtado Facility:[facility] Start: 10-01-2023 End: 10-01-2023 Emergency department patient visit Dillon Hurtado [facility] Start: 08-14-2023 End: 08-14-2023 Office outpatient visit 25 minutes Aisha PEREZ Work Phone: [facility] Comment on above: Chronic pain disorde r (Primary Dx); Controlled type 2 diabetes mellitus with diabetic polyneuropathy, without long-term current use of insulin ([facility]) Start: 07-15-2023 End: 07-15-2023 Emergency department patient visit ISELA Ragland Work Phone: [facility]Emergency [facility] Work Phone: Start: 06-26-2023 End: 06-26-2023 ambulatory João Soto Other [employer] Other Start: 06-26-2023 Telephone encounter João URIBE [facility] Start: 06-20-2023 End: 06-20-2023 ambulatory Lisa Jonathan Other [employer] Other Start: 06-20-2023 Office outpatient vi sit 25 minutes Lisa Jonathan [facility] Start: 06-11-2023 End: 06-11-2023 ambulatory João Soto Other [employer] Other Start: 06-11-2023 Telephone encounter João URIBE G [facility] Start: 03-21-2023 End: 03-21-2023 ambulatory João Soto Other [employer] Other Start: 03-21-2023 Office outpatient vi sit 25 minutes João Soto [facility] Start: 02-12-2023 End: 02-12-2023 ambulatory João Soto Other [employer] Other Start: 02-12-2023 Telephone encounter João URIBE G [facility] Start: 09-13-2022 Office outpatient vi sit 15 minutes João Soto [facility] Start: 09-13-2022 End: 09-13-2022 ambulatory PA-C Aisha Ragland Work Phone: [facility] Work Phone: Start: 09-13-2022 End: 09-13-2022 Patient encounter procedure PA-Ash Ragland Work Phone: [facility] Start: 06-14-2022 End: 06-14-2022 ambulatory João Soto Other [employer] Other Start: 06-14-2022 Patient encounter procedure João Soto [facility] Start: 06-12-2022 End: 06-12-2022 ambulatory Vicky Titus Other [employer] Other Start: 06-12-2022 Telephone encounter Vicky Villa [facility] Start: 02-23-2022 End: 02-24-2022 ambulatory AISHA RAGLAND Facility:[facility] Start: 10-05-2021 End: 10-05-2021 ambulatory João Soto Other [employer] Other Start: 10-05-2021 Office outpatient ne w 30 minutes João Soto [facility] Start: 06-29-2021 End: 06-29-2021 ambulatory Vicky Titus Other [employer] Other Start: 06-29-2021 Office outpatient vi sit 25 minutes Vicky Titus [facility] Start: 04-06-2021 Office outpatient vi sit 15 minutes Vicky Titus [facility] Start: 03-28-2021 End: 03-29-2021 ambulatory AISHA RAGLAND Facility:[facility] Start: 11-07-2017 End: 11-12-2017 Ambulatory WAYNE PAULA [facility] Start: 02-20-2017 End: 02-21-2017 Ambulatory DEFAULT PHYSICIAN Facility:[facility] Procedures Date Procedure Procedure Detail Performing Clinician Start: 09-09-2024 Total replacement of right knee joint Aisha Ragland PA-C Work Phone: Start: 09-09-2024 X-ray of right knee, two views Aisha Ragland PA-C Work Phone: Start: 09-03-2024 Plain X-ray of bilat eral femurs Aisha Ragland PA-C Work Phone: Start: 09-03-2024 Plain X-ray of bilat eral tibia and bilateral fibula Aisha Ragland PA-C Work Phone: Start: 09-03-2024 X-ray of cervical spine Aisha Ragland PA-C Work Phone: Start: 08-21-2024 Hemoglobin glycosylated a1c Aisha Ragland PA Work Phone: Start: 04-24-2024 Hemoglobin glycosylated a1c Aisha Ragland PA Work Phone: Start: 04-23-2024 Plain X-ray of right shoulder PA-C Aisha Ragland Work Phone: Start: 04-23-2024 X-ray of both knees, three views PA-C Aisha Ragland Work Phone: Start: 03-10-2024 Plain chest X-ray PA-C Aisha Ragland Work Phone: Start: 08-15-2023 Urine albumin quantitative Aisha Ragland PA Work Phone: Start: 08-14-2023 Hemoglobin glycosylated a1c Aisha Ragland PA Work Phone: Start: 09-13-2022 Plain X-ray of right shoulder PA-C Aisha Ragland Work Phone: Appendectomy Dillon Hurtado Arthroplasty of righ t hip joint Dillon Hurtado Cholecystectomy Dillon Patelvishnu magallanes 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) Dillon Hurtado Tonsillectomy Dillon Hurtado Plan of Treatment Date Care Activity Detail Author Start: 10-14-2025 Medicare Annual Wellness (AWV) Medicare Annual Wellness (AWV) [facility] Start: 12-16-2024 End: 12-16-2024 Patient encounter procedure 12/16/2024 3:30 PM EDT Office Visit [facility] [address] [place] [id number] Aisha Ragland PA [address] [place] [address] [facility] Start: 11-18-2024 Hemoglobin A1c measurement Diabetes: Hemoglobin A1C [facility] Start: 10-27-2024 End: 10-27-2024 Patient encounter procedure 10/27/2024 4:00 PM EDT Procedure Visit [facility] [address] [place] [phone] Tabitha Valentino, DPM [address] [place] [address] [facility] Start: 10-20-2024 End: 10-20-2024 Patient encounter procedure 10/20/2024 4:00 PM EDT Procedure Visit [facility] [address] [place] [phone] Tabitha Valentino, DPM [address] [place] [address] [facility] Start: 10-17-2024 Medicare Annual Wellness (AWV) Medicare Annual Wellness (AWV) [facility] Start: 10-17-2024 Urine screening for protein Diabetes: Urine Protein Screening [facility] Start: 09-09-2024 [facility] Start: 09-09-2024 Hospital admission [facility] Start: 09-03-2024 Plain X-ray of bilateral femurs XR femur [facility] Start: 09-03-2024 Plain X-ray of bilateral tibia and bilateral fibula XR tibia/fibula [facility] Start: 09-03-2024 X-ray of cervical spine XR cer v spine AP/LAT/FLX/EXT [facility] Start: 09-03-2024 XR Cervical spine 4 Views [facility] Start: 09-03-2024 XR Femur - bilateral Views [facility] Start: 09-03-2024 XR Tibia and Fibula - bilateral Views [facility] Start: 08-25-2024 End: 08-25-2024 Patient encounter procedure 08/25/2024 3:00 PM EST Office Visit [facility] [address] [place], [place] [id number] Aisha Ragland PA [address] [place] [address] [facility] Start: 08-21-2024 End: 08-21-2024 Patient encounter procedure 08/21/2024 3:00 PM EST Office Visit [facility] [address] [place] [id number] Aisha Ragland PA [address] [place] [address] Arrived [facility] Comment on above: Arrived Start: 08-15-2024 Urine screening for protein Diabetes: Urine Protein Screening [facility] Start: 08-04-2024 End: 08-04-2024 Patient encounter procedure 08/04/2024 4:00 PM EST Procedure Visit [facility] [address] [place] [phone] Tabitha Valentino DPM [address] [place] [address] [facility] Start: 07-25-2024 Hemoglobin A1c measurement Diabetes: Hemoglobin A1C [facility] Start: 06-02-2024 End: 06-02-2024 Patient encounter procedure 06/02/2024 3:30 PM EST Procedure Visit [facility] [address] [place] [address] Tabitha Valentino, DPM [address] [place] [address] [facility] Start: 05-26-2024 End: 05-26-2024 Patient encounter procedure 05/26/2024 3:45 PM EST Procedure Visit [facility] [address] [place] [phone] Tabitha Valentino DPDuncan [address] [place] [address] [facility] Start: 04-29-2024 Hemoglobin A1c measurement Diabetes: Hemoglobin A1C [facility] Start: 04-24-2024 End: 04-24-2024 Patient encounter procedure 04/24/2024 3:00 PM EDT Office Visit [facility] [address] [place] [phone] Aisha Ragland, PA [address] [place] [address] [facility] Start: 04-23-2024 Plain X-ray of right shoulder XR shoulder RT min 2V* [facility] Start: 04-23-2024 X-ray of both knees, three views XR knee BI 3V - NOT FOR ER USE [facility] Start: 04-23-2024 XR Knee - bilateral 3 Views [facility] Start: 04-23-2024 XR Shoulder - right Views [facility] Start: 03-24-2024 End: 03-24-2024 Patient encounter procedure 03/24/2024 4:15 PM EDT Procedure Visit [facility] [address] [place] [phone] Tabitha Valentino DPM [address] [place] [address] Arrived [facility] Comment on above: Arrived Start: 03-16-2024 Influenza vaccination Influenza Vacc ine (#1) [facility] Start: 12-10-2023 Glaucoma screening Diabetes: R etinopathy Screening [facility] Start: 11-28-2023 Medicare Annual Wellness (AWV) Medicare Annual Wellness (AWV) [facility] Start: 11-13-2023 Hemoglobin A1c measurement Diabetes: Hemoglobin A1C [facility] Start: 09-28-2023 End: 09-28-2023 Patient encounter procedure 09/28/2023 2:00 PM EDT Procedure Visit [facility] [address] [place] [phone] Tabitha Valentino DPM [address] [place] [address] [facility] Patient Education [facility] Work Phone: Patient referral [facility] Work Phone: Immunizations Immunization Date Immunization Notes Care Provider Fa cili 04-24-2024 Seasonal, quadrivalent, recombinant, injectable influenza vaccine, preservative free Aisha Obie PA Work Phone: [facility] 03-27-2023 Influenza, High-dose Seasonal, Quadrivalent, Preservative Free Aisha Obie PA Work Phone: [facility] 03-27-2023 pneumococcal conjuga te vaccine, 13 valent Aisha Obie PA Work Phone: [facility] 03-27-2023 influenza virus vaccine, unspecified formulation Tabitha Valentino DPM Work Phone: [facility] 2022 influenza, high dose seasonal, preservative-free Aisha Obie PA Work Phone: [facility] 2022 Influenza, High-dose Seasonal, Quadrivalent, Preservative Free Aisha Obie PA Work Phone: [facility] 04-25-2021 Influenza, High-dose Seasonal, Quadrivalent, Preservative Free Aisha Obie PA Work Phone: [facility] 04-06-2021 Kenalog -40 mg Vicky Calve y Other [employer] Other 10-26-2020 Kenalog -40 mg Vicky Calve y Other [employer] Other 09-28-2020 pneumococcal polysaccharide vaccine, 23 valent Aisha Obie PA Work Phone: [facility] 07-23-2020 tetanus toxoid, reduced diphtheria toxoid, and acellular pertussis vaccine, adsorbed PA-C Aisha Ragland Work Phone: [facility] 07-20-2020 Kenalog -40 mg Vicky Calve y Other [employer] Other 04-26-2020 influenza, high dose seasonal, preservative-free Aisha Ragland PA Work Phone: [facility] 04-26-2020 Influenza, High-dose Seasonal, Quadrivalent, Preservative Free Aisha Ragland PA Work Phone: [facility] 04-21-2020 Kenalog -40 mg Vicky Calve y Other [employer] Other 02-11-2020 Kenalog -40 mg Vicky Calve y Other [employer] Other 12-03-2019 Kenalog -40 mg Vicky Calve y Other [employer] Other 05-21-2019 influenza, high dose seasonal, preservative-free Aisha Ragland PA Work Phone: [facility] 05-26-2018 influenza, high dose seasonal, preservative-free Aisha Ragland PA Work Phone: [facility] 06-27-2017 pneumococcal polysaccharide vaccine, 23 valent Aisha Ragland PA Work Phone: [facility] 05-05-2017 influenza, high dose seasonal, preservative-free Aisha Ragland PA Work Phone: [facility] 04-24-2017 influenza, injectabl e, quadrivalent, preservative free Aisha Ragland PA Work Phone: [facility] 05-20-2016 influenza, high dose seasonal, preservative-free Aisha Ragland PA Work Phone: [facility] 05-11-2015 influenza, injectabl e, quadrivalent, contains preservative Aisha Ragland PA Work Phone: [facility] 05-26-2014 influenza, injectabl e, quadrivalent, contains preservative Aisha Ragland PA Work Phone: [facility] 05-06-2008 influenza virus vaccine, whole virus Aisha Ragland PA Work Phone: [facility] 05-14-2007 influenza virus vaccine, whole virus Aisha Ragland PA Work Phone: [facility] NEGATED: Highlighted row has not occurred!04-26-2019 influenza, high dose seasonal, preservative-free PA-C Aisha Ragland Work Phone: [facility] Payers Date Payer Category Payer Self-pay [id number] 2023 Private Health Insurance [facility] .[id number] 2020 Medicare (Managed Care) [facility] .[id number] 2020 Unknown 2020 Unknown [id number] 2.16.840.1.039436.19 1959 Unknown [id number] 1945 Unknown [id number] 2.16.840.1.535734.3.579.2 .593 1945 Unknown [id number] 2.16.840.1.534028.3.579.2 .593 1945 Unknown [id number] 2.16.840.1.019048.3.579.2 .727 1945 Unknown [id number] 2.16.840.1.585263.3.579.2 .727 1947 Unknown [id number] 2.16.840.1.304167.3.579.2 .727 1947 Unknown [id number] 2.16.840.1.960453.3.579.2 .125 1945 Unknown [id number] 2.16.840.1.290868.3.579.2 .125 1947 Unknown [id number] 2.16.840.1.644139.3.579.2 .125 1947 Unknown [id number] 2.16.840.1.136473.3.579.2 .125 1947 Unknown [id number] 2.16.840.1.541057.3.579.2 .125 1945 Unknown [id number] 2.16.840.1.946991.3.579.2 .125 1945 Unknown [id number] 2.16.840.1.930621.3.579.2 .125 1947 Unknown [id number] 2.16.840.1.830219.3.579.2 .125 1947 Unknown [id number] 2.16.840.1.617010.3.579.2 .1259 1945 Unknown [id number] 2.16.840.1.603667.3.579.2 .1259 1945 Unknown [id number] 2.16.840.1.946995.3.579.2 .1259 Medicare [id number] Unknown HCAP/HFA/FAP Active [id number] Unknown [id number] 2.16.840.1.265761.3.579.2 .531 Unknown [id number] 2.16.840.1.388141.3.579.2 .531 Unknown [id number] 2.16.840.1.956450.3.579.2 .531 Unknown [id number] 2.16.840.1.240567.3.579.2 .531 Unknown [id number] 2.16.840.1.838999.3.579.2 .531 Unknown [id number] 2.16.840.1.766908.3.579.2 .531 Unknown [id number] 2.16.840.1.233657.3.579.2 .531 Social History Date Type Detail Facility Start: 08-14-2023 End: 10-14-2024 Sex Assigned At [facility] Other Start: 07-24-2020 End: 03-27-2023 Tobacco smoking status NHIS Never smoked tobacco (finding) [facility] Start: 1945 Sex Assigned At Female F [facility] Start: 03-27-2023 Tobacco use and exposure Smokeless tobacco non-user [facility] Start: 08-14-2023 End: 10-14-2024 Alcohol intake Current drinker of alcohol (finding) [facility] Start: 08-14-2023 End: 10-14-2024 History of Social function [facility] Start: 12-25-2022 Alcohol Comment 1-2 drinks les s than monthly in the past year, Caffeine intake: 2-3 cups per day [facility] Start: 1945 Sex Assigned At Not on file [facility] Start: 07-23-2024 End: 09-22-2024 Sex Female (finding) [facility] Start: 09-10-2024 SDOH Follow up SDOH Follow up [facility] Work Phone: Medical Equipment Procedure Code Equipment Code Equipment Origin al Text Equipment Identifier Dates Arthroplasty, knee, total, minimally invasive Orthopaedic cement, non-medicated ()[id number] FDA Start: 09-09-2024 Arthroplasty, knee, total, minimally invasive Uncoated knee tibia prosthesis, metallic ()[id number] FDA Start: 09-09-2024 Arthroplasty, knee, total, minimally invasive Uncoated knee femur prosthesis ()[id number] FDA Start: 09-09-2024 Arthroplasty, knee, total, minimally invasive Tibial insert ()[id number] FDA Start: 09-09-2024 Arthroplasty, knee, total, minimally invasive Knee stem ()[id number] FDA Start: 09-09-2024 Arthroplasty, knee, total, minimally invasive Polymer orthopaedic cement restrictor, non-bioabsorbable, sterile ()[id number] FDA Start: 09-09-2024 Orthopaedic bone screw, non-bioabsorbable, non-sterile ()[id number] FDA Start: 04-25-2019 Orthopaedic bone screw, non-bioabsorbable, non-sterile ()[id number] FDA Start: 04-25-2019 Orthopaedic bone screw, non-bioabsorbable, non-sterile ()[id number] FDA Start: 04-25-2019 Orthopaedic bone washer, non-sterile ()[id number] [facility] Start: 04-25-2019 [id number] Start: 04-26-2022 Lancets (OneTouc h Delica Plus [id number]) [facility] [id number] Start: 04-26-2022 USE DIRECTED ONCE DAILY [id number] Start: 07-17-2024 USE DIRECTED ONCE DAILY [id number] Start: 07-14-2024 Goals Date Patient Goal Desired Activity /State Functional Status Date Assessment Result Facility 09-11-2024 Functional status Patient Not at [facility] Work Phone: 10-17-2023 Functional Status N/A [facility] 10-01-2023 Functional Status N/A [facility] Mental Status Date Assessment Result Facility 09-11-2024 Cognitive function Cognitive Sta tus Patient at Baseline [facility] Work Phone: Clinical Notes 04-15-2013 to 10-14-2024 ANA Whitlock - 10/14/2024 3:30 PM EDT Note Date & Type Note Facility 10-14-2024 History of Presen t illness Narrative Images from the original note were not included. Nata Pete is a 79 y.o. female presents with chief complaint of Medicare Annual Wellness Visit Subsequent and Hospital Follow-up (Follow up from [facility] completed TCM) HPI: Flowsheet Row Patient Outreach from 10/09/2024 in [facility] with Annika Espinoza MA Hospital Information ED, Hospital or Penitentiary Facility Discharge? Penitentiary Facility Discharge Date 10/03/24 Discharged To: Home Setting Penitentiary Facilities [facility] Admission Date 09/11/24 Medications Discharge medications reviewed and reconciled from hospital? No Appointments Does the patient have a primary care provider? Yes Does the patient have any upcoming specialty appointments? Yes Self Management Does patient have home health? yes What is the home health agency? [facility] Patient Teaching Wrap Up Medicare Wellness Over the past 2 weeks, how often have you been bothered by any of the following problems? Little interest or pleasure in doing things: Not at all Feeling down, depressed, or hopeless: Not at all Patient Health Questionnaire-2 Score: 0 Cooper Fall Risk History of Falling, Immediate or Within 3 Months: No Secondary Diagnosis: No Ambulatory Aid: Walks without aid/bedrest/nurse assist Intravenous Therapy/Heparin Lock: No Gait/Transferring: Normal/bedrest/immobile Mental Status: Oriented to own ability Cooper Fall Risk Score: 0 Health Risk Assessment Form Do you need help eating, bathing, using the toilet, dressing, or getting around your home?: Yes Can you prepare your own meals?: Yes Can you do your own housework without help?: Yes Can you shop for groceries or clothes without help?: Yes Do you exercise for about 20 minutes 3 or more days a week?: Yes How confident are you that you can control and manage most of your health problems?: Very confident Can you mange your money, credit cards and accounts, pay bills and taxes?: Yes Vision Screening: Yes, no gross abnormalities Hearing Screening: Yes, no gross abnormalities Cognitive Screening Self Assessment: No overt cognitive deficiency is apparent by direct observation Three Word Registration: Apple, Watch, Yvette Clock Drawing: Normal Clock - 2 Three Word Recall: All 3 words correct - 3 Total Score (0-5 Points): 5 Pain Assessment Pain Score: 6 Advance Care Planning Do you have a living will?: No Do you have a medical power of commercial litigation attorney?: No History of Present Illness The patient is a 79-year-old female who presents for evaluation of bilateral leg swelling and pain management. She reports persistent fatigue, which she attributes to her recent surgery. She has been experiencing bilateral leg swelling, which has not improved despite being on Lasix 20 mg. She also reports occasional incontinence at night. She has been using an ice machine for symptom relief. She has been using compression stockings, but one was lost during laundry, and she found them uncomfortable due to skin indentation. She has been performing exercises with the assistance of her daughter, who also helps her with dressing in the morning. She is able to remove her socks independently but requires assistance with putting them on. She has been elevating her feet, which provides some relief. She has been managing at home with the help of her daughter, who has been sleeping downstairs for the past three nights. She has been using a commode at night, which is conveniently located near her bed. She has been managing her pain with oxycodone and Tylenol, prescribed by Dr. Anguiano. Although these medications do not completely alleviate her pain, they render it manageable. She has been using an ice machine for symptom relief. MEDICATIONS Current: Oxycodone, Tylenol, Lasix MEDICATIONS: Current Outpatient Medications Medication Instructions Ascorbic Acid (VITAMIN C PO) Take by mouth atenolol (TENORMIN) 12.5 mg, Oral, Daily, Take 12.5mg by mouth daily Blood Glucose Monitoring Suppl (ONE TOUCH ULTRA 2) w/Device kit Calcium Carb-Cholecalciferol (CALCIUM 600 + D PO) Take by mouth CeleBREX 100 MG capsule Every 24 hours Elderberry 575 MG/5ML syrup as directed Orally escitalopram (LEXAPRO) 20 mg, Oral, Nightly famotidine (PEPCID) 20 mg, Oral, Every morning furosemide (Lasix) 20 MG tablet TAKE 1 TABLET BY MOUTH EVERY DAY glucose blood (The Style ClubTouch Ultra) test strip USE DIRECTED ONCE DAILY glucose blood (The Style ClubTouch Ultra) test strip USE DIRECTED ONCE DAILY HYDROcodone-acetaminophen ([place]) 5-325 MG tablet 1 tablet, Oral, 3 times daily Lancets (The Style ClubTouch Delica Plus Ovwitm99P) misc lidocaine (Lidoderm) 5 % patch 1 patch, Daily lisinopril 20 MG tablet TAKE 1/4 TABLET BY MOUTH TWICE DAILY for 90 LORazepam (ATIVAN) 0.5 mg, Oral, 2 times daily PRN metFORMIN (GLUCOPHAGE) 500 mg, Oral, Every 24 hours omega-3 (Fish Oil) 1200 MG capsule 1 capsule, Every 24 hours oxyCODONE (Roxicodone) 5 MG immediate release tablet 1 tablet as needed Orally q4 hours for 30 days simvastatin (ZOCOR) 40 mg, Oral, Every 24 hours ALLERGIES: Allergies Allergen Reactions Bee Venom Shortness of breath Bee Pollen Unknown Miconazole Unknown Tramadol Unknown Review of Systems General: Denies fever, chills, fatigue, PARK or weight loss/gain CV: Denies CP, palpitations or swelling in legs Resp: denies cough, SOB or wheezing GI: Denies abd pain/n/v/c/d Skin: Denies rash Neuro: Denies LH or dizziness Medical, Surgical, Family, and Social History reviewed. OBJECTIVE: Visit Vitals BP 118/72 (BP Location: Left arm, Patient Position: Sitting, BP Cuff Size: Adult) Pulse 68 Temp 98.9 F (Temporal) Ht 4' 10 Wt 129 lb SpO2 98% BMI 26.96 kg/m OB Status Hysterectomy Smoking Status Never BSA 1.55 m BP Readings from Last 3 Encounters: 10/14/24 118/72 08/21/24 130/84 08/11/24 144/83 Wt Readings from Last 3 Encounters: 10/14/24 129 lb 08/21/24 129 lb 08/11/24 129 lb Physical Exam Physical Exam Vital Signs Blood pressure is normal. General: alert & oriented, NAD Head: NC/AT Oral Cavity: MMM Skin: warm, dry Heart: RRR, No m/r/g, S1S2 nml Lungs: CTA b/l Abdomen: soft, ND/NT, BS wnl Musculoskeletal: normal gait Extremities: no clubbing, cyanosis or edema Neurological: nonfocal Psych: mood/affect full range Results ASSESSMENT AND PLAN: Assessment & Plan 1. Bilateral lower extremity edema. Her blood pressure readings are within the normal range. The dosage of Lasix will be increased from 20 mg to 40 mg, to be taken once in the morning and once around lunchtime for a duration of one week. She is advised to elevate her legs as much as possible and to engage in mild physical activity such as walking. Occupational therapy will be consulted to assess the possibility of lymphedema and to provide appropriate treatment if necessary. 2. Pain management. She is currently on oxycodone and Tylenol for pain management. She reports that the medication makes the pain manageable but does not completely eliminate it. She will bead picker her prescription from the pharmacy today. If additional pain management is needed, further adjustments will be considered. Assessment/Plan Problem List Items Addressed This Visit None Health Maintenance Due Topic Date Due Diabetes: Retinopathy Screening 12/10/2023 Medicare Annual Wellness (AWV) 10/17/2024 documented in this encounter [facility] 09-11-2024 Discharge summary Note Date/Time September 11, 2024 12:33pm [facility] [address] [place], [place] [address] Discharge Summary Signed Patient: Nata Pete MR#: [id number] : 1945 Acct:[id number] Age/Sex: 79 / F Adm Date: 5 Loc: 4N Room: 6X1439-[address]: João Soto DO Copies to: Isela Whitlock DO Kevin A Bailey, DO~ Providers Date of Discharge: 09/11/24 Discharging Provider: Adrian Anne Primary Care Provider: Aisha Ragland Consults: 09/09/24 07:19 Consult to Occupational Therapy Routine Comment: Physician Instructions: Consult to OT for:: Evaluation and Treat Comment: WBAT Consult to Physical Therapy Routine Comment: Physician Instructions: Consult to PT for:: Evaluation and Treat Comment: WBAT Discharge Diagnosis (1) S/P total knee arthroplasty: Final Diagnosis Final Discharge Diagnosis: Status post right total knee arthroplasty Summary Hospital Course Hospital course: Went standard right total knee arthroplasty on 09/09/[address] João Soto. Patient progressed well with therapy and after surgery. Therapy recommended nursing facility due to the limitations from surgery. No issues throughout her hospital stay. Patient was discharged. Time Spent with Patient Time spent providing/coordinating discharge services (# min): 30 Surgeries and Procedures Operation Date: 09/09/24 07:30 Actual Procedures p OR Right Knee Arthroplasty, Total(Right) - João Soto DO Discharge Plan Discharge Plan Patient Disposition: Home Additional Instructions: Joint Replacement Discharge Instructions Your safety during your recovery process is important to us. Please seek immediate emergency care if you have sudden chest pain or shortness of breath. Additionally, please call our office at [phone] should any of the followingoccur: wound bleeding or an increase in bleeding, increased swelling, redness around the incision, fever over 101?F, excessive vomiting, nose bleeds, or bloody stool. Discharge Medications (scheduled): Aspirin 81 mg twice daily should be taken starting the morning after surgery. You should take this as prescribed until your prescription is completed. This is to provide anticoagulation to help prevent blood clots. Doxycycline tablet by mouth twice daily for 7 days. Take with food. Begin the morning after surgery. This is for prophylaxis against infection Tylenol (acetaminophen) 500mg tablet. Take 2 tablets 3 times (every 8 hours) a day for the first 2 weeks after your surgery. You may begin this the day of your surgery. *If you have a patch behind your ear remove it the morning after surgery, discard, and thoroughly wash your hands. Discharge Medications (as needed): Tramadol (Ultram) 50mg tablet. Take 1 tablet by mouth every 6 hours as needed for pain. Do not take at the same time as oxycodone but rather alternate these if needed. Take with food. Begin the night of surgery. Take around the clock for24 hours after surgery and then utilize if necessary. Oxycodone 5mg tablet. Take 1 tablet by mouth every 4 hours as needed for pain. If pain unrelenting 30 minutes after taking 1 tablet, then take another 1 tablet. Do not take at the same time as Tramadol (Ultram). Take with food. Begin the night of surgery. Take around the clock for 24 hours after surgery and then utilize if necessary. Discharge Instructions: BE SURE YOU HAVE READ THE BOOKLET YOU RECEIVED IN THE OFFICE. Home Health: Home health is a valuable partner in the joint replacement process; they will beyour first step to your road of recovery. A therapist will see you the day afteryour surgery; they will be at your home before noon. They will see you the firstthree days after surgery and continue working with you until I see you in the office for your 2-week post-op appointment. ?Follow their instructions. Exercises are to be done several times a day, including the days the therapist does not come to your house! Wound Care: Your surgical incision may be covered with a few different dressings. Your home health physical therapist can remove the Marko wrap from your leg the first day after surgery, but they will leave the surgical dressing over the incision. Mepilex-This bundy foam dressing that will be over the surgical site and should stay in place for 1 week after surgery. This dressing helps with early wound healing and protects your surgical incision. This is a waterproof dressing thatmay get wet in the shower starting the day after surgery. You may apply ice over the dressing as needed. 7 days after surgery you may take the dressing offby peeling up an edge and then taking off like a Band-Aid. Sometimes you can have some redness or blistering around the dressing which can be normal. Bruising around the surgical site is normal in the acute postoperative phase. DO NOT take a bath, enter a pool, smith/pond, or ocean until we discuss this at your post-op appointments. Prevena-This is a negative pressure wound therapy device with a collection container for any drainage. If this becomes completely full, call your therapistto discuss changing the collection container. This device also has a 14-day battery. Your home health physical therapist will remove the dressing 14 days after your surgery; it will be removed prior to your initial follow up appointment. Do not place any ointments, creams, or lotions around your wound oron the dressing. Avoid getting outside on hot days; excessive sweating can increase the risk of wound infection. When you do bathe, allow soapy water to run over the dressing site, but do not scrub the device or the surrounding skin.DO NOT get the device wet! Pat the dressing site dry with a towel after you shower. DO NOT take a bath, enter a pool, smith/pond, or ocean until we discuss this at your post-op appointments. What to expect: SWELLING: ? Ice frequently, a minimum of 4 times a day for 20 minutes at a time for the first 2-3 weeks after surgery, especially after doing your exercises. ? While icing, elevate your foot above the level of your heart with several pillows under your ankle. DO NOT put pillows under your knee. (KNEE REPLACEMENT ONLY) ? Avoid prolonged periods of sitting over the first 7 to 10 days after surgery. We recommend that you not sit for more than 45 to 60 minutes at a time. You should get up and move around or lie down and elevate your leg. BRUISING: ? You will have bruising to some degree; possibly the thigh, calf, ankle, foot, and in some cases the genitalia. Do not be alarmed. The bruising will eventually go away on its own as the body reabsorbs the blood. BLISTERS: ? Some patients may develop blisters around the knee/hip and/or the incision. Although they can be alarming in appearance, they pose no significant risk to your joint replacement. o Leave the blisters alone and allow them to heal on their own. NUMBNESS: ? Usually normal around the incision. ? For knee replacements, the outside of the knee may be involved as well. The area of numbness may shrink over time or it could last forever. ? For hip replacements, you may notice numbness around the surgical incision. The area of numbness may shrink over time or it could last forever. VENKATA bermeo (stockinette): ? Wear them for 4 weeks on the operative side and 2 weeks on the nonoperative side. ? Try to wear these as 24/ as possible to help decrease swelling. Weight Bearing, Walkers, and Canes: ? You are weightbearing as tolerated. Do not attempt to walk without your walker and assistance until the therapist checks you the following day after surgery and gives you further instruction. Follow all preoperative precautions as instructed by therapy. ? Typically, you will start out on a walker, then progress to a cane, and eventually walk without any device. Some of our patients do this within 2 weeksof surgery, while others can take 6 weeks. Pain Medications: ? You may experience significant pain. Our goal is to make your pain manageable (not absent, since this is usually not realistic) and to allow you to progress with your therapy for your hip or knee. ? Take your pain medication scheduled for the first 24 hours, then take it as needed. ? Always take your pain medication with food to decrease nausea and vomiting. ? Be sure to take stool softeners and/or laxatives as directed. ? You may take xzrq-nkl-pdlilts Benadryl if itching occurs without a rash or hives. ? Icing and elevation will help relieve pain as well, do not underestimate the power of ice and elevation. We do recommend that you stop taking narcotic pain medications by 4-6 weeks after surgery and if necessary, continue to use anti-inflammatory medications such as Mobic (meloxicam), Celebrex (celecoxib), or an nwkf-pik-pisqwhq medication (Aleve, Motrin, Ibuprofen, etc). Driving an automobile: ? You must be off all narcotic pain medications. ? If your right leg is involved, that is your braking leg. Your physical therapist needs to help you determine that you can actively and firmly hit the brake and sustain it as this could be a life or situation for you or someone else. ? You will not be cleared to drive by me or anyone else. It is up to you to know when you feel safe to drive. We do recommend waiting until your first follow up and utilizing an empty parking lot to practice and ensure you are ableto slam on the brakes if necessary during an emergency. Low Grade Fever (less than 101?F): ? Low-grade fevers can be treated, but make sure you do not exceed the daily limit of Tylenol. ? The daily limit on Tylenol (acetaminophen) is 3000 mg in a 24-hour period. If you have procedures done after your joint replacement: ? Dental procedures (including routine cleaning), prostate surgery, colonoscopy,and other invasive procedures could increase your risk for a total joint infection. ? During a postoperative visit, be sure to discuss the use of prophylactic antibiotic therapy prior to and sometimes after these invasive procedures. ? The decision to utilize antibiotics before and/or after these invasive procedures is a shared decision process between you and myself. Constipation: ? If you develop constipation in spite of taking stool softeners and/or laxatives, follow the protocol below: ? Day 2 of constipation ? if no results, use a Dulcolax suppository ? Day 3 of constipation ? if no results, use a fleet's enema. If no results by the afternoon, notify our office. Bladder Habits: ? If you have difficulty urinating or are unable to urinate within 12 hours after arriving home following your surgery, please notify our office immediately. Expectations for Pain Relief after Joint Replacement: Patients predictably improve for up to a year after a hip or knee replacement. It is normal for you to still have some pain in your hip or knee for as much as 3 to 9 months after surgery. The pain relief will come, but you should not expect great relief of pain in less than this time. High demand activities (such as going up and down stairs) frequently take 3 to 9 months before patientsfeel comfortable doing them. It is permissible to go up and down stairs whenever you can safely navigate them, but it will take much longer to do them normally and with great confidence. Questions or Problems: If you have any questions, problems, or confusion about your recovery after yourhip or knee replacement, please feel free to call our office at [phone]. You are a priority of ours and we will not be upset with you if you call. We would much rather you call to confirm aspects of your recovery process as opposed to possibly hindering your recovery with inappropriate care. We are committed to providing you with the best care possible. [facility] [address] [place] [address] [email or web address] Instructions: Know your Meds Prescriptions: Continued lorazepam 0.5 mg tablet 0.5 mg PO DAILY PRN (Reason: anxiety) 5 Days Qty: 0 0RF oxycodone 5 mg tablet 5 mg PO Q4H PRN (Reason: Pain) 7 Days Qty: 42 0RF Discontinued hydrocodone-acetaminophen 5-325 mg tablet 1 tab PO TID Patient Comments: TAKE 1 TABLET BY MOUTH ONCE DAILY IN THE MORNING AND 1 TABLET BEFORE BEDTIME No Action celecoxib 100 mg capsule See Rx Instructions .ROUTE .COMPLEX Qty: 60 3RF Dose Instruction: TAKE 1 CAPSULE BY MOUTH TWICE A DAY WITH FOOD Rx Instructions: TAKE 1 CAPSULE BY MOUTH TWICE A DAY WITH FOOD lidocaine 5 % adhesive patch,medicated 1 patch topical DAILY Qty: 30 1RF Rx Instructions: leave on most painful area for up to 12 hrs atenolol 25 mg tablet 12.5 mg PO DAILY calcium carbonate-vitamin D3 [Calcium 600 + D(3)] 600 mg-10 mcg (400 unit) tablet 1 tab PO DAILY elderberry fruit 200 mg capsule 500 mg PO DAILY ascorbic acid (vitamin C) [C-500] 500 mg tablet 500 mg PO DAILY simvastatin 40 mg tablet 40 mg PO QHS famotidine 20 mg tablet 20 mg PO DAILY escitalopram oxalate 20 mg tablet 10 mg PO BID Patient Comments: TAKE 1 TABLET BY MOUTH IN THE MORNING lisinopril 20 mg tablet 5 mg PO BID furosemide 20 mg tablet 10 mg PO BID metformin 500 mg tablet 500 mg PO DAILY omega 7-jks-lbl-fish oil [Fish Oil] 1,200 (144-216) mg capsule 1 cap PO DAILY Follow Up: João Soto DO [Active Staff] - Exam Physical Exam Vital Signs: Temp Pulse Resp BP Pulse Ox O2 Del Method O2 Flow Rate 98.5 F 74 18 127/77 97 Room Air 1 09/11/24 11:19 09/11/24 11:19 09/11/24 11:19 09/11/24 11:19 09/11/24 11:19 09/11/24 11:19 09/09/24 11:05 Diagnostic Studies Completed and Pending Studies Labs on day of discharge: 09/11/24 12:06: POC Glucose 112 09/11/24 07:30: POC Glucose 106 09/11/24 04:52: Corrected WBC 5.5, Uncorrected WBC Count 5.5, RBC 3.44 L, Hgb 10.2 L, Hct 29.7 L, MCV 86.4, MCH 29.6, MCHC 34.3, RDW 13.8, Plt Count 179, MPV 8.9, Neut % (Auto) 66.8, Lymph % (Auto) 16.6, Blount % (Auto) 11.4, Eos % (Auto) 4.6, Baso % (Auto) 0.6, Nucleat RBC Rel Count 0.0, Neut # (Auto) 3.7, Lymph # (Auto) 0.9 L, Blount # (Auto) 0.6, Eos # (Auto) 0.3, Baso # (Auto) 0.0, PHA Creatinine Clear 48.10, Sodium 132 L, Potassium 4.1, Chloride 102, Carbon Dioxide 27.0, Anion Gap 7.1, BUN 19, Creatinine 0.48 L, Est GFR (CKD-EPI) > 60.0, Glucose 91, Calcium 8.3 L 09/10/24 20:25: POC Glucose 118 09/10/24 16:24: POC Glucose 143 09/10/24 12:31: POC Glucose 113 Documented By: Adrian Anne DO 09/11/24 1232 Signed By: <Electronically signed by Adrian Anne DO> 09/11/24 1233 [facility] Work Phone: [phone]) 678-933502-27-2025 Progress note Author Adrian Anne [facility] Note Date/Time September 11, 2024 12:31pm [facility] [address] [place] [address] Orthopedic Progress Note Signed Patient: Nata Pete MR#: [id number] : 1945 Acct:[id number] Age/Sex: 79 / F Adm Date: 5 Loc: 4N Room: 0L6548-4 Type: [facility] Attending Dr: João Soto DO Copies to: ~ Date of Service: 09/11/2024 Subjective Subjective Interval History: Nata is doing well. Denies any new issues. No overnight issues Exam Physical Exam Vital Signs: Temp Pulse Resp BP Pulse Ox O2 Del Method O2 Flow Rate 98.5 F 74 18 127/77 97 Room Air 1 09/11/24 11:19 09/11/24 11:19 09/11/24 11:19 09/11/24 11:19 09/11/24 11:19 09/11/24 11:19 09/09/24 11:05 Examination of right lower extremity shows surgical dressing clean, dry, intact. Active range of motion of the knee with mild pain. Intact strength ankle dorsiflexion/plantarflexion, FHL, EHL. Sensation intact light touch L4-S1. DP and PT pulses palpable. Objective Labs Labs: Laboratory Results - last 24 hr 09/10/24 09/10/24 09/10/24 12:31 16:24 20:25 Corrected WBC Uncorrected WBC Count RBC Hgb Hct MCV MCH MCHC RDW Plt Count MPV Neut % (Auto) Lymph % (Auto) Blount % (Auto) Eos % (Auto) Baso % (Auto) Nucleat RBC Rel Count Neut # (Auto) Lymph # (Auto) Blount # (Auto) Eos # (Auto) Baso # (Auto) PHA Creatinine Clear Sodium Potassium Chloride Carbon Dioxide Anion Gap BUN Creatinine Est GFR (CKD-EPI) Glucose POC Glucose 113 143 118 Calcium 09/11/24 09/11/24 09/11/24 04:52 07:30 12:06 Corrected WBC 5.5 Uncorrected WBC Count 5.5 RBC 3.44 L Hgb 10.2 L Hct 29.7 L MCV 86.4 MCH 29.6 MCHC 34.3 RDW 13.8 Plt Count 179 MPV 8.9 Neut % (Auto) 66.8 Lymph % (Auto) 16.6 Blount % (Auto) 11.4 Eos % (Auto) 4.6 Baso % (Auto) 0.6 Nucleat RBC Rel Count 0.0 Neut # (Auto) 3.7 Lymph # (Auto) 0.9 L Blount # (Auto) 0.6 Eos # (Auto) 0.3 Baso # (Auto) 0.0 PHA Creatinine Clear 48.10 Sodium 132 L Potassium 4.1 Chloride 102 Carbon Dioxide 27.0 Anion Gap 7.1 BUN 19 Creatinine 0.48 L Est GFR (CKD-EPI) > 60.0 Glucose 91 POC Glucose 106 112 Calcium 8.3 L Assessment / Plan Assessment and plan (1) S/P total knee arthroplasty: Code(s): Z96.659 - Presence of unspecified artificial knee joint Plan Nata is status post right total knee arthroplasty by Dr. Soto on 09/09/2024. -WBAT with ROMAT -Antibiotic prophylaxis for 23 hours, doxycycline twice daily for 7 days -DVT prophylaxis with aspirin 81 mg twice daily -Pain control: Wean IV medications, oxycodone 5 to 10 mg every 4-6 hours as needed for pain, tramadol 50 mg every 4 hours as needed for pain, Tylenol 1000 mg every 8 hours scheduled, Flexeril 10 mg every 8 hours as needed for spasm -PT/OT -Okay to remove MARKO wrap from operative extremity -Maintain postoperative incisional dressing for 1 week -Stable for discharge from orthopedic standpoint. Dc to SNF today -Plan for follow-up in office as scheduled, call office with any questions or concerns Likely intermediate facility. Await PT/OT eval's and input. Documented By: Adrian Anne DO 09/11/24 1230 Signed By: <Electronically signed by Adrian Anne DO> 09/11/24 [facility] Work Phone: [phone]) [phone] [place] [address] Discharge Summary Signed Patient: Nata Pete MR#: [id number] : 1945 Acct:[id number] Age/Sex: 79 / F Adm Date: 5 Loc: Room: [address] [place] [address]: João Soto DO Copies to: Isela Whitlock DO Kevin A Bailey, DO~ Providers Date of Discharge: 09/11/24 Discharging Provider: Adrian Anne Primary Care Provider: Aisha Ragland Consults: 09/09/24 07:19 Consult to Occupational Therapy Routine Comment: Physician Instructions: Consult to OT for:: Evaluation and Treat Comment: WBAT Consult to Physical Therapy Routine Comment: Physician Instructions: Consult to PT for:: Evaluation and Treat Comment: WBAT Discharge Diagnosis (1) S/P total knee arthroplasty: Final Diagnosis Final Discharge Diagnosis: Status post right total knee arthroplasty Summary Hospital Course Hospital course: Went standard right total knee arthroplasty on 09/09/[address] João Soto. Patient progressed well with therapy and after surgery. Therapy recommended nursing facility due to the limitations fromsurgery. No issues throughout her hospital stay. Patient was discharged. Time Spent with Patient Time spent providing/coordinating discharge services (# min): 30 Surgeries and Procedures Operation Date: 09/09/24 07:30 Actual Procedures p OR Right Knee Arthroplasty, Total(Right) - João Soto, DO Discharge Plan Discharge Plan Patient Disposition: Home Additional Instructions: Joint Replacement Discharge Instructions Your safety during your recovery process is important to us. Please seek immediate emergency care if you have sudden chest pain or shortness of breath. Additionally, please call our office at [phone] should any of the followingoccur: wound bleeding or an increase in bleeding, increased swelling, redness around the incision, fever over 101?F, excessive vomiting, nose bleeds, or bloody stool. Discharge Medications (scheduled): Aspirin 81 mg twice daily should be taken starting the morning after surgery. You should take this as prescribed until your prescription is completed. This is to provide anticoagulation to help prevent blood clots. Doxycycline tablet by mouth twice daily for 7 days. Take with food. Begin the morning after surgery. This is for prophylaxis against infection Tylenol (acetaminophen) 500mg tablet. Take 2 tablets 3 times (every 8 hours) a day for the first 2 weeks after your surgery. You may begin this the day of your surgery. *If you have a patch behind your ear remove it the morning after surgery, discard, and thoroughly wash your hands. Discharge Medications (as needed): Tramadol (Ultram) 50mg tablet. Take 1 tablet by mouth every 6 hours as needed for pain. Do not takeat the same time as oxycodone but rather alternate these if needed. Take with food. Begin the nightof surgery. Take around the clock for24 hours after surgery and then utilize if necessary. Oxycodone 5mg tablet. Take 1 tablet by mouth every 4 hours as needed for pain. If pain unrelenting 30 minutes after taking 1 tablet, then take another 1 tablet. Do not take at the same time as Tramadol (Ultram). Take with food. Begin the night of surgery. Take around the clock for 24 hours after surgery and then utilize if necessary. Discharge Instructions: BE SURE YOU HAVE READ THE BOOKLET YOU RECEIVED IN THE OFFICE. Home Health: Home health is a valuable partner in the joint replacement process; they will beyour first step to your road of recovery. A therapist will see you the day afteryour surgery; they will be at your homebefore noon. They will see you the firstthree days after surgery and continue working with you until I see you in the office for your 2-week post-op appointment. ?Follow their instructions. Exercises are to be done several times a day, including the days the therapist does not come to your house! Wound Care: Your surgical incision may be covered with a few different dressings. Your home health physical therapist can remove the Marok wrap from your leg the first day after surgery, but they will leave the surgical dressing over the incision. Mepilex-This bundy foam dressing that will be over the surgical site and should stay in place for 1 week after surgery. This dressing helps with early wound healing and protects your surgical incision. This is a waterproof dressing thatmay get wet in the shower starting the day after surgery. You may apply ice over the dressing as needed. 7 days after surgery you may take the dressing offby peeling up an edge and then taking off like a Band-Aid. Sometimes you can have some redness or blistering around the dressing which can be normal. Bruising around the surgical site is normal in the acute postoperative phase. DO NOT take a bath, enter a pool, smith/pond, or ocean until we discuss this at your post-op appointments. Prevena-This is a negative pressure wound therapy device with a collection container for any drainage. If this becomes completely full, call your therapistto discuss changing the collection container. This device also has a 14-day battery. Your home health physical therapist will remove the dressing 14 days after your surgery; it will be removed prior to your initial follow up appointment. Do notplace any ointments, creams, or lotions around your wound oron the dressing. Avoid getting outside on hot days; excessive sweating can increase the risk of wound infection. When you do bathe, allow soapy water to run over the dressing site, but do not scrub the device or the surrounding skin.DO NOTget the device wet! Pat the dressing site dry with a towel after you shower. DO NOT take a bath, enter a pool, smith/pond, or ocean until we discuss this at your post-op appointments. What to expect: SWELLING: ? Ice frequently, a minimum of 4 times a day for 20 minutes at a time for the first 2-3 weeks aftersurgery, especially after doing your exercises. ? While icing, elevate your foot above the level of your heart with several pillows under your ankle. DO NOT put pillows under your knee. (KNEE REPLACEMENT ONLY) ? Avoid prolonged periods of sitting over the first 7 to 10 days after surgery. We recommend that you not sit for more than 45 to 60 minutes at a time. You should get up and move around or lie down and elevate your leg. BRUISING: ? You will have bruising to some degree; possibly the thigh, calf, ankle, foot, and in some cases the genitalia. Do not be alarmed. The bruising will eventually go away on its own as the body reabsorbs the blood. BLISTERS: ? Some patients may develop blisters around the knee/hip and/or the incision. Although they can be alarming in appearance, they pose no significant risk to your joint replacement. o Leave the blisters alone and allow them to heal on their own. NUMBNESS: ? Usually normal around the incision. ? For knee replacements, the outside of the knee may be involved as well. The area of numbness may shrink over time or it could last forever. ? For hip replacements, you may notice numbness around the surgical incision. The area of numbness may shrink over time or it could last forever. VENKATA hosdiaz (stockinette): ? Wear them for 4 weeks on the operative side and 2 weeks on the nonoperative side. ? Try to wear these as 24/7 as possible to help decrease swelling. Weight Bearing, Walkers, and Canes: ? You are weightbearing as tolerated. Do not attempt to walk without your walker and assistance until the therapist checks you the following day after surgery and gives you further instruction. Follow all preoperative precautions as instructed by therapy. ? Typically, you will start out on a walker, then progress to a cane, and eventually walk without any device. Some of our patients do this within 2 weeksof surgery, while others can take 6 weeks. Pain Medications: ? You may experience significant pain. Our goal is to make your pain manageable (not absent, since this is usually not realistic) and to allow you to progress with your therapy for your hip or knee. ? Take your pain medication scheduled for the first 24 hours, then take it as needed. ? Always take your pain medication with food to decrease nausea and vomiting. ? Be sure to take stool softeners and/or laxatives as directed. ? You may take fhaz-iva-ldqujdw Benadryl if itching occurs without a rash or hives. ? Icing and elevation will help relieve pain as well, do not underestimate the power of ice and elevation. We do recommend that you stop taking narcotic pain medications by 4-6 weeks after surgery and if necessary, continue to use anti-inflammatory medications such as Mobic (meloxicam), Celebrex (celecoxib), or an zvkt-gmz-pxezsyn medication (Aleve, Motrin, Ibuprofen, etc). Driving an automobile: ? You must be off all narcotic pain medications. ? If your right leg is involved, that is your braking leg. Your physical therapist needs to help you determine that you can actively and firmly hit the brake and sustain it as this could be a life ordeath situation for you or someone else. ? You will not be cleared to drive by me or anyone else. It is up to you to know when you feel safe to drive. We do recommend waiting until your first follow up and utilizing an empty parking lot to practice and ensure you are ableto slam on the brakes if necessary during an emergency. Low Grade Fever (less than 101?F): ? Low-grade fevers can be treated, but make sure you do not exceed the daily limit of Tylenol. ? The daily limit on Tylenol (acetaminophen) is 3000 mg in a 24-hour period. If you have procedures done after your joint replacement: ? Dental procedures (including routine cleaning), prostate surgery, colonoscopy,and other invasive procedures could increase your risk for a total joint infection. ? During a postoperative visit, be sure to discuss the use of prophylactic antibiotic therapy priorto and sometimes after these invasive procedures. ? The decision to utilize antibiotics before and/or after these invasive procedures is a shared decision process between you and myself. Constipation: ? If you develop constipation in spite of taking stool softeners and/or laxatives, follow the protocol below: ? Day 2 of constipation ? if no results, use a Dulcolax suppository ? Day 3 of constipation ? if no results, use a fleet's enema. If no results by the afternoon, notify our office. Bladder Habits: ? If you have difficulty urinating or are unable to urinate within 12 hours after arriving home following your surgery, please notify our office immediately. Expectations for Pain Relief after Joint Replacement: Patients predictably improve for up to a year after a hip or knee replacement. It is normal for youto still have some pain in your hip or knee for as much as 3 to 9 months after surgery. The pain relief will come, but you should not expect great relief of pain in less than this time. High demand activities (such as going up and down stairs) frequently take 3 to 9 months before patientsfeel comfortable doing them. It is permissible to go up and down stairs whenever you can safely navigate them,but it will take much longer to do them normally and with great confidence. Questions or Problems: If you have any questions, problems, or confusion about your recovery after yourhip or knee replacement, please feel free to call our office at [phone]. You are a priority of ours and we will not be upset with you if you call. We would much rather you call to confirm aspects of your recovery pr ocess as opposed to possibly hindering your recovery with inappropriate care. We are committed to providing you with the best care possible. Dr. João Soto [facility] [address] [place] [address] [email or web address] Instructions: Know your Meds Prescriptions: Continued lorazepam 0.5 mg tablet 0.5 mg PO DAILY PRN (Reason: anxiety) 5 Days Qty: 0 0RF oxycodone 5 mg tablet 5 mg PO Q4H PRN (Reason: Pain) 7 Days Qty: 42 0RF Discontinued hydrocodone-acetaminophen 5-325 mg tablet 1 tab PO TID Patient Comments: TAKE 1 TABLET BY MOUTH ONCE DAILY IN THE MORNING AND 1 TABLET BEFORE BEDTIME No Action celecoxib 100 mg capsule See Rx Instructions .ROUTE .COMPLEX Qty: 60 3RF Dose Instruction: TAKE 1 CAPSULE BY MOUTH TWICE A DAY WITH FOOD Rx Instructions: TAKE 1 CAPSULE BY MOUTH TWICE A DAY WITH FOOD lidocaine 5 % adhesive patch,medicated 1 patch topical DAILY Qty: 30 1RF Rx Instructions: leave on most painful area for up to 12 hrs atenolol 25 mg tablet 12.5 mg PO DAILY calcium carbonate-vitamin D3 [Calcium 600 + D(3)] 600 mg-10 mcg (400 unit) tablet 1 tab PO DAILY elderberry fruit 200 mg capsule 500 mg PO DAILY ascorbic acid (vitamin C) [C-500] 500 mg tablet 500 mg PO DAILY simvastatin 40 mg tablet 40 mg PO QHS famotidine 20 mg tablet 20 mg PO DAILY escitalopram oxalate 20 mg tablet 10 mg PO BID Patient Comments: TAKE 1 TABLET BY MOUTH IN THE MORNING lisinopril 20 mg tablet 5 mg PO BID furosemide 20 mg tablet 10 mg PO BID metformin 500 mg tablet 500 mg PO DAILY omega 0-xan-pfn-fish oil [Fish Oil] 1,200 (144-216) mg capsule 1 cap PO DAILY Follow Up: João Soto DO [Active Staff] - Exam Physical Exam Vital Signs: Temp Pulse Resp BP Pulse Ox O2 Del Method O2 Flow Rate 98.5 F 74 18 127/77 97 Room Air 1 09/11/24 11:19 09/11/24 11:19 09/11/24 11:19 09/11/24 11:19 09/11/24 11:19 09/11/24 11:19 09/09/24 11:05 Diagnostic Studies Completed and Pending Studies Labs on day of discharge: 09/11/24 12:06: POC Glucose 112 09/11/24 07:30: POC Glucose 106 09/11/24 04:52: Corrected WBC 5.5, Uncorrected WBC Count 5.5, RBC 3.44 L, Hgb 10.2 L, Hct 29.7 L, MCV 86.4, MCH 29.6, MCHC 34.3, RDW 13.8, Plt Count 179, MPV 8.9, Neut % (Auto) 66.8, Lymph % (Auto) 16.6, Blount % (Auto) 11.4, Eos % (Auto) 4.6, Baso % (Auto) 0.6, Nucleat RBC Rel Count 0.0, Neut # (Auto) 3.7, Lymph # (Auto) 0.9 L, Blount # (Auto) 0.6, Eos # (Auto) 0.3, Baso # (Auto) 0.0, PHA CreatinineClear 48.10, Sodium 132 L, Potassium 4.1, Chloride 102, Carbon Dioxide 27.0, Anion Gap 7.1, BUN 19,Creatinine 0.48 L, Est GFR (CKD-EPI) > 60.0, Glucose 91, Calcium 8.3 L 09/10/24 20:25: POC Glucose 118 09/10/24 16:24: POC Glucose 143 09/10/24 12:31: POC Glucose 113 Documented By: Adrian Anne DO 09/11/24 1232 Signed By: 09/11/24 1233 [facility]02-27-2025 [place] [address] Orthopedic Progress Note Signed Patient: Nata Pete MR#: [id number] : 1945 Acct:[id number] Age/Sex: 79 / F Adm Date: 5 Loc: 4 Room: [address] [place] [address] Type: REG SDC Attending Dr: João Soto DO Copies to: ~ Date of Service: 09/11/2024 Subjective Subjective Interval History: Nata is doing well. Denies any new issues. No overnight issues Exam Physical Exam Vital Signs: Temp Pulse Resp BP Pulse Ox O2 Del Method O2 Flow Rate 98.5 F 74 18 127/77 97 Room Air 1 09/11/24 11:19 09/11/24 11:19 09/11/24 11:19 09/11/24 11:19 09/11/24 11:19 09/11/24 11:19 09/09/24 11:05 Examination of right lower extremity shows surgical dressing clean, dry, intact. Active range of motion of the knee with mild pain. Intact strength ankle dorsiflexion/plantarflexion, FHL, EHL. Sensation intact light touch L4-S1. DP and PT pulses palpable. Objective Labs Labs: Laboratory Results - last 24 hr 09/10/24 09/10/24 09/10/24 12:31 16:24 20:25 Corrected WBC Uncorrected WBC Count RBC Hgb Hct MCV MCH MCHC RDW Plt Count MPV Neut % (Auto) Lymph % (Auto) Blount % (Auto) Eos % (Auto) Baso % (Auto) Nucleat RBC Rel Count Neut # (Auto) Lymph # (Auto) Blount # (Auto) Eos # (Auto) Baso # (Auto) PHA Creatinine Clear Sodium Potassium Chloride Carbon Dioxide Anion Gap BUN Creatinine Est GFR (CKD-EPI) Glucose POC Glucose 113 143 118 Calcium 09/11/24 09/11/24 09/11/24 04:52 07:30 12:06 Corrected WBC 5.5 Uncorrected WBC Count 5.5 RBC 3.44 L Hgb 10.2 L Hct 29.7 L MCV 86.4 MCH 29.6 MCHC 34.3 RDW 13.8 Plt Count 179 MPV 8.9 Neut % (Auto) 66.8 Lymph % (Auto) 16.6 Blount % (Auto) 11.4 Eos % (Auto) 4.6 Baso % (Auto) 0.6 Nucleat RBC Rel Count 0.0 Neut # (Auto) 3.7 Lymph # (Auto) 0.9 L Blount # (Auto) 0.6 Eos # (Auto) 0.3 Baso # (Auto) 0.0 PHA Creatinine Clear 48.10 Sodium 132 L Potassium 4.1 Chloride 102 Carbon Dioxide 27.0 Anion Gap 7.1 BUN 19 Creatinine 0.48 L Est GFR (CKD-EPI) > 60.0 Glucose 91 POC Glucose 106 112 Calcium 8.3 L Assessment / Plan Assessment and plan (1) S/P total knee arthroplasty: Code(s): Z96.659 - Presence of unspecified artificial knee joint Plan Nata is status post right total knee arthroplasty by Dr. Soto on 09/09/2024. -WBAT with ROMAT -Antibiotic prophylaxis for 23 hours, doxycycline twice daily for 7 days -DVT prophylaxis with aspirin 81 mg twice daily -Pain control: Wean IV medications, oxycodone 5 to 10 mg every 4-6 hours as needed for pain, tramadol 50 mg every 4 hours as needed for pain, Tylenol 1000 mg every 8 hours scheduled, Flexeril 10 mg every 8 hours as needed for spasm -PT/OT -Okay to remove MARKO wrap from operative extremity -Maintain postoperative incisional dressing for 1 week -Stable for discharge from orthopedic standpoint. Dc to SNF today -Plan for follow-up in office as scheduled, call office with any questions or concerns Likely intermediate facility. Await PT/OT eval's and input. Documented By: Adrian Anne DO 09/11/24 1230 Signed By: 09/11/24 1231 [facility]02-26-2025 Progress note Author Adrian Anne [facility] Note Date/Time September 10, 2024 9:44am [facility] [address] [place], [place] [id number] Orthopedic Progress Note Signed Patient: Nata Pete MR#: [id number] : 1945 Acct:[id number] Age/Sex: 79 / F Adm Date: 5 Loc: 4N Room: 1I0887-5 Type: REG SDC Attending Dr: João Soto DO Copies to: ~ Date of Service: 09/10/2024 Subjective Subjective Interval History: Pain is well-controlled and is working with therapy upon valuation. Denies any systemic symptoms. Denies any issues overnight. Exam Physical Exam Vital Signs: Temp Pulse Resp BP Pulse Ox O2 Del Method O2 Flow Rate 98.7 F 62 16 132/69 96 Room Air 1 09/10/24 07:36 09/10/24 07:36 09/10/24 07:36 09/10/24 07:36 09/10/24 07:36 09/10/24 08:00 09/09/24 11:05 Examination of right lower extremity shows surgical dressing clean, dry, intact. Active range of motion of the knee with mild pain. Intact strength ankle dorsiflexion/plantarflexion, FHL, EHL. Sensation intact light touch L4-S1. DP and PT pulses palpable. Objective Labs Labs: Laboratory Results - last 24 hr 09/09/24 09/09/24 09/09/24 11:04 17:31 19:51 Corrected WBC Uncorrected WBC Count RBC Hgb Hct MCV MCH MCHC RDW Plt Count MPV Neut % (Auto) Lymph % (Auto) Blount % (Auto) Eos % (Auto) Baso % (Auto) Nucleat RBC Rel Count Neut # (Auto) Lymph # (Auto) Blount # (Auto) Eos # (Auto) Baso # (Auto) PHA Creatinine Clear Sodium Potassium Chloride Carbon Dioxide Anion Gap BUN Creatinine Est GFR (CKD-EPI) Glucose POC Glucose 132 129 183 Calcium 09/10/24 09/10/24 05:14 07:31 Corrected WBC 6.2 Uncorrected WBC Count 6.2 RBC 3.59 L Hgb 10.7 L Hct 31.3 L MCV 87.2 MCH 29.7 MCHC 34.1 RDW 13.2 Plt Count 201 MPV 8.7 Neut % (Auto) 73.8 Lymph % (Auto) 11.8 Blount % (Auto) 12.5 Eos % (Auto) 1.8 Baso % (Auto) 0.1 Nucleat RBC Rel Count 0.1 Neut # (Auto) 4.6 Lymph # (Auto) 0.7 L Blount # (Auto) 0.8 Eos # (Auto) 0.1 Baso # (Auto) 0.0 PHA Creatinine Clear 47.92 Sodium 135 L Potassium 4.4 Chloride 101 Carbon Dioxide 30.6 Anion Gap 7.8 BUN 17 Creatinine 0.55 L Est GFR (CKD-EPI) > 60.0 Glucose 102 H POC Glucose 109 Calcium 8.7 Assessment / Plan Assessment and plan (1) S/P total knee arthroplasty: Code(s): Z96.659 - Presence of unspecified artificial knee joint Plan Nata is status post right total knee arthroplasty by Dr. Soto on 09/09/2024. -WBAT with ROMAT -Antibiotic prophylaxis for 23 hours, doxycycline twice daily for 7 days -DVT prophylaxis with aspirin 81 mg twice daily -Pain control: Wean IV medications, oxycodone 5 to 10 mg every 4-6 hours as needed for pain, tramadol 50 mg every 4 hours as needed for pain, Tylenol 1000 mg every 8 hours scheduled, Flexeril 10 mg every 8 hours as needed for spasm -PT/OT -Okay to remove MARKO wrap from operative extremity -Maintain postoperative incisional dressing for 1 week -Stable for discharge from orthopedic standpoint -Plan for follow-up in office as scheduled, call office with any questions or concerns Likely intermediate facility. Await PT/OT eval's and input. Documented By: Adrian Anne DO 09/10/24 0942 Signed By: <Electronically signed by Adrian Anne DO> 09/10/2444 [facility] Work Phone: 1(343) 323-842002-26-2025 [place] [address] Orthopedic Progress Note Signed Patient: Nata Pete MR#: [id number] : 1945 Acct:[id number] Age/Sex: 79 / F Adm Date: 5 Loc: 4N Room: 7S4856-0 Type: REG SDC Attending Dr: João Soto DO Copies to: ~ Date of Service: 09/10/2024 Subjective Subjective Interval History: Pain is well-controlled and is working with therapy upon valuation. Denies any systemic symptoms. Denies any issues overnight. Exam Physical Exam Vital Signs: Temp Pulse Resp BP Pulse Ox O2 Del Method O2 Flow Rate 98.7 F 62 16 132/69 96 Room Air 1 09/10/24 07:36 09/10/24 07:36 09/10/24 07:36 09/10/24 07:36 09/10/24 07:36 09/10/24 08:00 09/09/24 11:05 Examination of right lower extremity shows surgical dressing clean, dry, intact. Active range of motion of the knee with mild pain. Intact strength ankle dorsiflexion/plantarflexion, FHL, EHL. Sensation intact light touch L4-S1. DP and PT pulses palpable. Objective Labs Labs: Laboratory Results - last 24 hr 09/09/24 09/09/24 09/09/24 11:04 17:31 19:51 Corrected WBC Uncorrected WBC Count RBC Hgb Hct MCV MCH MCHC RDW Plt Count MPV Neut % (Auto) Lymph % (Auto) Blount % (Auto) Eos % (Auto) Baso % (Auto) Nucleat RBC Rel Count Neut # (Auto) Lymph # (Auto) Blount # (Auto) Eos # (Auto) Baso # (Auto) PHA Creatinine Clear Sodium Potassium Chloride Carbon Dioxide Anion Gap BUN Creatinine Est GFR (CKD-EPI) Glucose POC Glucose 132 129 183 Calcium 09/10/24 09/10/24 05:14 07:31 Corrected WBC 6.2 Uncorrected WBC Count 6.2 RBC 3.59 L Hgb 10.7 L Hct 31.3 L MCV 87.2 MCH 29.7 MCHC 34.1 RDW 13.2 Plt Count 201 MPV 8.7 Neut % (Auto) 73.8 Lymph % (Auto) 11.8 Blount % (Auto) 12.5 Eos % (Auto) 1.8 Baso % (Auto) 0.1 Nucleat RBC Rel Count 0.1 Neut # (Auto) 4.6 Lymph # (Auto) 0.7 L Blount # (Auto) 0.8 Eos # (Auto) 0.1 Baso # (Auto) 0.0 PHA Creatinine Clear 47.92 Sodium 135 L Potassium 4.4 Chloride 101 Carbon Dioxide 30.6 Anion Gap 7.8 BUN 17 Creatinine 0.55 L Est GFR (CKD-EPI) > 60.0 Glucose 102 H POC Glucose 109 Calcium 8.7 Assessment / Plan Assessment and plan (1) S/P total knee arthroplasty: Code(s): Z96.659 - Presence of unspecified artificial knee joint Plan Nata is status post right total knee arthroplasty by Dr. Soto on 09/09/2024. -WBAT with ROMAT -Antibiotic prophylaxis for 23 hours, doxycycline twice daily for 7 days -DVT prophylaxis with aspirin 81 mg twice daily -Pain control: Wean IV medications, oxycodone 5 to 10 mg every 4-6 hours as needed for pain, tramadol 50 mg every 4 hours as needed for pain, Tylenol 1000 mg every 8 hours scheduled, Flexeril 10 mg every 8 hours as needed for spasm -PT/OT -Okay to remove MARKO wrap from operative extremity -Maintain postoperative incisional dressing for 1 week -Stable for discharge from orthopedic standpoint -Plan for follow-up in office as scheduled, call office with any questions or concerns Likely intermediate facility. Await PT/OT eval's and input. Documented By: Adrian Anne DO 09/10/24 0942 Signed By: 09/10/24 0944 [facility]02-25-2025 Progress note Author João Soto [facility] Note Date/Time September 09, 2024 1:50pm [facility] [address] [place] [address] Orthopedic Progress Note Signed Patient: Nata Pete MR#: [id number] : 1945 Acct:[id number] Age/Sex: 79 / F Adm Date: Loc: 4N Room: 3K3360-0 Type: REG SDC Attending Dr: João Soto DO Copies to: ~ Date of Service: 09/09/2024 Subjective Subjective Interval History: Patient seen evaluated today. Having some pain but tolerable. No other complaints. Exam Physical Exam Vital Signs: Temp Pulse Resp BP Pulse Ox O2 Del Method O2 Flow Rate 98.1 F 65 14 168/79 H 93 L Room Air 1 09/09/24 13:30 09/09/24 13:30 09/09/24 13:30 09/09/24 13:30 09/09/24 13:30 09/09/24 13:30 09/09/24 11:05 Narrative: Patient seen evaluated on regular nursing floor. She is resting supine position. She is in no acute distress. She is alert and oriented pleasant conversation. Right knee is evaluated. Postoperative dressing intact. Iceman in place. Ableto wiggle toes and move the ankle up and down without difficulty. Foot is warm well-perfused normal sensation. Objective Labs Labs: Laboratory Results - last 24 hr 09/09/24 09/09/24 06:28 11:04 POC Glucose 98 132 POC Glucose Comment Glu2: cleaned meter Assessment / Plan Assessment and plan (1) S/P total knee arthroplasty: Code(s): Z96.659 - Presence of unspecified artificial knee joint Plan POD # 0 S/P right total knee arthroplasty -WBAT with ROMAT -Antibiotic prophylaxis for 23 hours, doxycycline twice daily for 7 days -DVT prophylaxis with aspirin 81 mg twice daily -Pain control: Wean IV medications, oxycodone 5 to 10 mg every 4-6 hours as needed for pain, tramadol 50 mg every 4 hours as needed for pain, Tylenol 1000 mg every 8 hours scheduled, Flexeril 10 mg every 8 hours as needed for spasm -PT/OT -Okay to remove MARKO wrap from operative extremity -Maintain postoperative incisional dressing for 1 week -Stable for discharge from orthopedic standpoint -Plan for follow-up in office as scheduled, call office with any questions or concerns Likely intermediate facility. Await PT/OT eval's and input. Dr. [facility] [address] [place] [id number] Documented By: João Soto DO 09/09/24 1347 Signed By: <Electronically signed by João Soto DO> 09/09/24 1350 [facility] Work Phone: 1(125) 213-440602-25-2025 [place] [id number] Orthopedic Progress Note Signed Patient: Nata Pete MR#: [id number] : 1945 Acct:[id number] Age/Sex: 79 / F Adm Date: Loc: 4N Room: 5F0257-2 Type: REG SDC Attending Dr: João Soto DO Copies to: ~ Date of Service: 09/09/2024 Subjective Subjective Interval History: Patient seen evaluated today. Having some pain but tolerable. No other complaints. Exam Physical Exam Vital Signs: Temp Pulse Resp BP Pulse Ox O2 Del Method O2 Flow Rate 98.1 F 65 14 168/79 H 93 L Room Air 1 09/09/24 13:30 09/09/24 13:30 09/09/24 13:30 09/09/24 13:30 09/09/24 13:30 09/09/24 13:30 09/09/24 11:05 Narrative: Patient seen evaluated on regular nursing floor. She is resting supine position. She is in no acutedistress. She is alert and oriented pleasant conversation. Right knee is evaluated. Postoperative dressing intact. Iceman in place. Ableto wiggle toes and move the ankle up and down without difficulty. Foot is warm well-perfused normal sensation. Objective Labs Labs: Laboratory Results - last 24 hr 09/09/24 09/09/24 06:28 11:04 POC Glucose 98 132 POC Glucose Comment Glu2: cleaned meter Assessment / Plan Assessment and plan (1) S/P total knee arthroplasty: Code(s): Z96.659 - Presence of unspecified artificial knee joint Plan POD # 0 S/P right total knee arthroplasty -WBAT with ROMAT -Antibiotic prophylaxis for 23 hours, doxycycline twice daily for 7 days -DVT prophylaxis with aspirin 81 mg twice daily -Pain control: Wean IV medications, oxycodone 5 to 10 mg every 4-6 hours as needed for pain, tramadol 50 mg every 4 hours as needed for pain, Tylenol 1000 mg every 8 hours scheduled, Flexeril 10 mg every 8 hours as needed for spasm -PT/OT -Okay to remove MARKO wrap from operative extremity -Maintain postoperative incisional dressing for 1 week -Stable for discharge from orthopedic standpoint -Plan for follow-up in office as scheduled, call office with any questions or concerns Likely intermediate facility. Await PT/OT eval's and input. Dr. João Soto [facility] [address] [place], [place] [id number] Documented By: João Soto DO 09/09/24 1347 Signed By: 09/09/24 1350 [facility]02-13-2025 Miscellaneous Notes* Telephone Encounter - Shawna Velasquez NP - 08/28/2024 9:04 AM EST Rx sent on 08/26/24. documented in this [facility]02-13-2025 Telephone encounter Note* Telephone Encounter - Shawna Velasquez NP - 08/28/2024 9:04 AM EST Rx sent on 08/26/24. [facility] Work Phone: [phone] History of Present illness Narrative* Maggi Marquez LPN - 08/26/2024 8:47 AM EST Last refilled on 07/29/24. Last OV was 08/21/24. Narc refill- Charito refilled last time documented in this [facility]02-06-2025 History of Present illness Narrative* ANA Whitlock - 08/21/2024 3:50 PM ESTAssociated Problem(s): Preop examination Patient has pre-op testing on 08-22 Waiting for results * ANA Whitlock - 08/21/2024 3:00 PM EST Images from the original note were not included. Nata Pete is a 79 y.o. female presents with chief complaint of Med Refill (Lisinopril, escitalopram, famotidine, simvastatin, metformin, alendronate) HPI: History of Present Illness Patient here for presurgical testing. Patient had stress test and cardiac work up around age 73. Has had surgery in past no issues with anesthesia. Had hip surgery apr 2019. Having surgery Sep 09 on right knee. Concerned may have sinus infection. Her hgba1c today 5.2% Lab Results Component Value Date HGBA1C 5.3 04/24/2024 MEDICATIONS: Current Outpatient Medications Medication Instructions Ascorbic Acid (VITAMIN C PO) Take by mouth atenolol (TENORMIN) 12.5 mg, Oral, Daily, Take 12.5mg by mouth daily Blood Glucose Monitoring Suppl (ONE TOUCH ULTRA 2) w/Device kit Calcium Carb-Cholecalciferol (CALCIUM 600 + D PO) Take by mouth CeleBREX 100 MG capsule Every 24 hours Elderberry 575 MG/5ML syrup as directed Orally escitalopram (LEXAPRO) 20 mg, Oral, Nightly famotidine (PEPCID) 20 mg, Oral, Every morning furosemide (Lasix) 20 MG tablet TAKE 1 TABLET BY MOUTH EVERY DAY glucose blood (OneTouch Ultra) test strip USE DIRECTED ONCE DAILY glucose blood (OneTouch Ultra) test strip USE DIRECTED ONCE DAILY HYDROcodone-acetaminophen ([place]is[place]) 5-325 MG tablet 1 tablet, Oral, 3 times daily Lancets (OneTouch Delica Plus [id number]) misc lidocaine (Lidoderm) 5 % patch 1 patch, Daily lisinopril 20 MG tablet TAKE 1/4 TABLET BY MOUTH TWICE DAILY for 90 LORazepam (ATIVAN) 0.5 mg, Oral, See admin instructions, One hour before dental procedure metFORMIN (GLUCOPHAGE) 500 mg, Oral, Every 24 hours omega-3 (Fish Oil) 1200 MG capsule 1 capsule, Every 24 hours simvastatin (ZOCOR) 40 mg, Oral, Every 24 hours ALLERGIES: Allergies Allergen Reactions Bee Venom Shortness of breath Bee Pollen Unknown Miconazole Unknown Tramadol Unknown Review of Systems General: Denies fever, chills, fatigue, PARK or weight loss/gain CV: Denies CP, palpitations or swelling in legs Resp: denies cough, SOB or wheezing GI: Denies abd pain/n/v/c/d Skin: Denies rash Neuro: Denies LH or dizziness Medical, Surgical, Family, and Social History reviewed. OBJECTIVE: Visit Vitals BP 130/84 (BP Location: Right arm, Patient Position: Sitting, BP Cuff Size: Adult) Pulse 67 Temp 98.4 F (Temporal) Ht 4' 10 Wt 129 lb SpO2 98% BMI 26.96 kg/m OB Status Hysterectomy Smoking Status Never BSA 1.55 m BP Readings from Last 3 Encounters: 08/21/24 130/84 08/11/24 144/83 07/07/24 118/70 Wt Readings from Last 3 Encounters: 08/21/24 129 lb 08/11/24 129 lb 06/02/24 129 lb Physical Exam Physical Exam General: alert & oriented, NAD Head: NC/AT Oral Cavity: MMM Skin: warm, dry Heart: RRR, No m/r/g, S1S2 nml Lungs: CTA b/l Abdomen: soft, ND/NT, BS wnl Musculoskeletal: normal gait Extremities: no clubbing, cyanosis or edema Neurological: nonfocal Psych: mood/affect full range Results ASSESSMENT AND PLAN: Assessment & Plan Assessment/Plan Problem List Items Addressed This Visit Controlled type 2 diabetes mellitus with diabetic polyneuropathy, 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 ([facility]) Relevant Orders POCT glycated hemoglobin, total docked device Health Maintenance Due Topic Date Due Diabetes: Retinopathy Screening 12/10/2023 Diabetes: Hemoglobin A1C 07/25/2024 [id number] History of Present illness Narrative* Tabitha Valentino, SUNG - 08/11/2024 3:45 PM EST Subjective Patient ID: Nata Pete is a 79 y.o. female who presents for Follow-up (Nailcare). Nail care Location nails on bilateral feet Severity of symptoms mild Onset gradual Status no change Context hard to trim, hard to reach Nails thickened, discolored, pain Relieved by debridement, filing down nails, clipping nails History of ulcers/wounds no Blood sugar 99 Aggravated by shoe gear, pressure DLS 07-07-24 PCP Zuri Hannah MD/Charito Ragland NP ROS General: Chillsdenies. Feverdenies. Musculoskeletal: muscle weaknessdenies. Bone/joint symptomsdenies. Peripheral Vascular: Edemadenies. Hx of blood clots in legsdenies. Raynaud'sdenies. Rest pain denies. Ulceration of feetdenies. Varicose veinsdenies. Skin: Hyperpigmentationdenies. Nail changesdenies. Rashdenies. Skin lesion(s)denies. Neurologic: Gait abnormalitydenies. Tingling/Numbnessdenies. Current Medications Current Outpatient Medications: Ascorbic Acid (VITAMIN C PO), Take by mouth, Disp: , Rfl: atenolol (Tenormin) 25 MG tablet, Take 0.5 tablets (12.5 mg) by mouth Daily Take 12.5mg by mouth daily, Disp: 45 tablet, Rfl: 3 Blood Glucose Monitoring Suppl (ONE TOUCH ULTRA 2) w/Device kit, , Disp: , Rfl: Calcium Carb-Cholecalciferol (CALCIUM 600 + D PO), Take by mouth, Disp: , Rfl: CeleBREX 100 MG capsule, 1 (one) time each day at the same time., Disp: , Rfl: Elderberry 575 MG/5ML syrup, as directed Orally, Disp: , Rfl: escitalopram (Lexapro) 20 MG tablet, Take 1 tablet (20 mg) by mouth at bedtime, Disp: 90 tablet, Rfl: 3 famotidine (Pepcid) 20 MG tablet, TAKE 1 TABLET BY MOUTH IN THE MORNING, Disp: 90 tablet, Rfl: 0 furosemide (Lasix) 20 MG tablet, TAKE 1 TABLET BY MOUTH EVERY DAY, Disp: 90 tablet, Rfl: 3 glucose blood (OneTouch Ultra) test strip, USE DIRECTED ONCE DAILY, Disp: 100 each, Rfl: 11 glucose blood (OneTouch Ultra) test strip, USE DIRECTED ONCE DAILY, Disp: 100 each, Rfl: 11 HYDROcodone-acetaminophen ([place]) 5-325 MG tablet, Take 1 tablet by mouth in the morning and 1 tablet in the evening and 1 tablet before bedtime., Disp: 90 tablet, Rfl: 0 Lancets (OneTouch Delica Plus [id number]) [facility], , Disp: , Rfl: lidocaine (Lidoderm) 5 % patch, Apply 1 patch topically Daily Remove & discard patch within 12 hours or as directed by MD., Disp: , Rfl: lisinopril 20 MG tablet, TAKE 1/4 TABLET BY MOUTH TWICE DAILY for 90, Disp: 45 tablet, Rfl: 3 LORazepam (Ativan) 0.5 MG tablet, Take 1 tablet (0.5 mg) by mouth See administration instructions One hour before dental procedure, Disp: 2 tablet, Rfl: 0 metFORMIN (Glucophage) 500 MG tablet, Take 1 tablet (500 mg) by mouth 1 (one) time each day at the same time, Disp: 90 tablet, Rfl: 3 omega-3 (Fish Oil) 1200 MG capsule, 1 capsule 1 (one) time each day at the same time., Disp: , Rfl: simvastatin (Zocor) 40 MG tablet, Take 1 tablet (40 mg) by mouth 1 (one) time each day at the same time., Disp: 90 tablet, Rfl: 3 Allergies Bee venom, Bee pollen, Miconazole, and Tramadol Medical Histories Past Medical History: Diagnosis Date Arthritis COVID 07/2021 Diabetes (CMS/HCC) High cholesterol (CMS/HCC) Hip fracture (CMS/HCC) Hypertension (CMS/HCC) Osteoarthritis Surgical Histories Past Surgical History: Procedure Laterality Date APPENDECTOMY CHOLECYSTECTOMY HIP FRACTURE SURGERY Left 2019 HIP SURGERY Right 2013 HYSTERECTOMY TONSILLECTOMY Hospitalizations Family History Family History Problem Relation Name Age of Onset Diabetes Mother Stroke Mother Arthritis Mother Hypertension Father Heart disease Father Hypertension Sister Diabetes Brother Cancer Daughter Objective Foot Exam General Examination: awake, aware of surroundings, in no acute distress. FOOT EXAM: Date of Last Foot Exam 08/11/24 Sensory testing performed: sensations diminished Vascular: DORSALIS PEDIS PULSE:2/4, bilaterally. POSTERIOR TIBIAL PULSE:2/4, bilaterally. TEMPERATURE GRADIENT:warm to cool. EDEMA:minimal. CAPILLARY FILLING TIME(sec):capillary fill intact bilateral digits less than 3 secs. Dermatologic: HYPERKERATOSIS: distal 3 rt minimal, more 2nd toe NAIL PATHOLOGY:digits 1-5 bilateral are intact. . atrophic skin with neg digital hair and hyperpigmentation. Nail Pathology: Right Foot: 1 (great toe)Long, Thick, Crumbly, Deformed, Discolored, Brittle, Dystrophic 5 mm. 2Long, Thick, Crumbly, Deformed, Discolored, Brittle, Dystrophic 4 mm. 3Long, Thick, Crumbly, Deformed, Discolored, Brittle, Dystrophic. 4Thick Thick. 5Long, Thick, Crumbly, Deformed, Discolored, Brittle, Dystrophic.3mm Nail Pathology: Left Foot: 1 (great toe)Long, Thick, Crumbly, Deformed, Discolored, Brittle, Dystrophic4 mm. 2Long, Thick, Crumbly, Deformed, Discolored, Brittle, Dystrophic 3 mm. 3Long, Thick, Crumbly, Deformed, Discolored, Brittle, Dystrophic. 4Long Thick. 5Long, Thick, Crumbly, Deformed, Discolored, Brittle, Dystrophic.3mm Modifier: -q9, Parastesias. Orthopedic: DEFORMITIES:Hallux abductovalgus , Hammer toe , bilateral. Moderate digital deformity, bilateral and bunion deformity nonreducible. No medial ankle pain and sinus tarsi pain, right . right third toe with hammertoe deformity and excessive flexor stabilizationnoted. Rt overlapping HT 2 most severe, HAV. left 1/2 short leg with shoe wear in agreement. Neurologic: Vibratory sensation, shapr/dull and light touch are decreased to the plantar foot bilateral, lessertoes most. Ankle / Foot: Right ankle calcaneal valgus severe nonreducible. Left moderate and semi- reducible weak inversion right in all other groups, 5 over 5 bilateral. Assessment/Plan DM neuropathy with mycotic nails, mild callus and edema/veinous insuff. stable Nails: all thick and dystrophic nails debrided of all affected and loose material All of the nondystrophic nails were debrided [place] debr 2 distal documented in this encounterS[facility] [id number] Evaluation note* Diagnosis Onset Date Resolution Status Admit Date Osteoarthritis of left knee acute July 23, 2024 3:01pm Osteoarthritis of right knee acute July 23, 2024 3:01pm Pre-op exam acute July 23, 2024 3:01pm Osteoarthritis of right shoulder chronic July 23 3:01pm Osteoarthritis of left knee acute September 03, 2024 3:09pm Osteoarthritis of right knee acute September 03, 2024 3:09pm Pre-op exam acute August 3:09pm Primary osteoarthritis of le ft knee acute September 03, 2 025 3:09pm Primary osteoarthritis of ri ght shoulder acute September 03, 2 025 3:09pm Osteoarthritis of right shoulder chronic September 03, 2 025 3:09pm S/P total knee arthroplasty acute September 09, 2024 5:51am [facility] Work Phone: 1(135) 821-463801-08-2025 Evaluation note* Diagnosis Onset Date Resolution Status Admit Date Osteoarthritis of left knee acute July 23, 2024 3:01pm Osteoarthritis of right knee acute July 23, 2024 3:01pm Pre-op exam acute July 23, 2024 3:01pm Osteoarthritis of right shoulder chronic July 23 3:01pm Osteoarthritis of left knee acute September 03, 2024 3:09pm Osteoarthritis of right knee acute September 03, 2024 3:09pm Pre-op exam acute August 3:09pm Primary osteoarthritis of left knee acute September 03, 2 025 3:09pm Primary osteoarthritis of right shoulder acute September 03 2 025 3:09pm Osteoarthritis of right shoulder chronic September 03, 2 025 3:09pm S/P total knee arthroplasty deleted September 09, 2024 5:51am Primary osteoarthritis of right knee acute September 22, 2024 12:54pm Status post total right knee replacement noneactive September 22, 2024 12:54pm [facility] Work Phone: 1(100) 608-769401-02-2025 Miscellaneous Notes* Telephone Encounter - ANA Whitlock - 07/17/2024 9:57 AM EST completed documented in this encounterNOMS [id number] Telephone encounter Note* Telephone Encounter - ANA Whitlock - 07/17/2024 9:57 AM EST completed [facility] [id number] History of Present illness Narrative* ANA Whitlock - 07/07/2024 2:30 PM EST Images from the original note were not included. Nata Pete is a 79 y.o. female presents with chief complaint of Follow-up HPI: History of Present Illness The patient is a 79-year-old female who presents for evaluation of knee pain. She is scheduled for a follow-up appointment with her orthopedic surgeon regarding her knee condition. She has been informed that additional surgical interventions may be necessary due to ligamentouslaxity. Postoperative rehabilitation and transitional care have also been discussed as part of her t reatment plan. She reports persistent fatigue and weakness, which she attributes to her ongoing illness. Despite these challenges, she maintains her independence in performing basic self-care tasks. She incorporates rest periods into her daily routine, including afternoon naps with her feet elevated. She continues to engage in physical activity, including arm exercises and weight training, but acknowledges a decrease in her overall strength. She has been managing her pain with medication, occasionally supplementing her regimen with an additional half tablet. She finds relief from cold therapy, using a cisneros pit bag, and has not required any pain medication today. She also uses lidocaine patches for her shoulder pain, which she reports as being as severe as her knee pain. She has recentlyexperienced nocturnal pain, which has been alleviated by spreading out her pain medication doses. She has not previously required pain medication at night. She has been recovering from dental procedures, which have included the placement of upper dentures. She describes the experience as unusual, particularly the sensation of a full set of teeth and theassociated increase in salivation. She has not yet attempted to insert the lower dentures. She has been adjusting her diet accordingly, avoiding certain foods and expressing a desire to consume salads. She has completed all necessary dental appointments. MEDICATIONS Current: lidocaine patch MEDICATIONS: Current Outpatient Medications Medication Instructions Ascorbic Acid (VITAMIN C PO) Take by mouth atenolol (TENORMIN) 12.5 mg, Oral, Daily, Take 12.5mg by mouth daily Blood Glucose Monitoring Suppl (ONE TOUCH ULTRA 2) w/Device kit Calcium Carb-Cholecalciferol (CALCIUM 600 + D PO) Take by mouth CeleBREX 100 MG capsule Every 24 hours Elderberry 575 MG/5ML syrup as directed Orally escitalopram (LEXAPRO) 20 mg, Oral, Nightly famotidine (PEPCID) 20 mg, Oral, Every morning furosemide (Lasix) 20 MG tablet TAKE 1 TABLET BY MOUTH EVERY DAY glucose blood (The Style [employer]Touch Ultra) test strip USE DIRECTED ONCE DAILY HYDROcodone-acetaminophen ([place]) 5-325 MG tablet 1 tablet, Oral, 3 times daily Lancets (The Style ClubTouch Delica Plus [id number]) misc lidocaine (Lidoderm) 5 % patch 1 patch, Daily lisinopril 20 MG tablet TAKE 1/4 TABLET BY MOUTH TWICE DAILY for 90 LORazepam (ATIVAN) 0.5 mg, Oral, See admin instructions, One hour before dental procedure metFORMIN (GLUCOPHAGE) 500 mg, Oral, Every 24 hours omega-3 (Fish Oil) 1200 MG capsule 1 capsule, Every 24 hours simvastatin (ZOCOR) 40 mg, Oral, Every 24 hours ALLERGIES: Allergies Allergen Reactions Bee Venom Shortness of breath Bee Pollen Unknown Miconazole Unknown Tramadol Unknown Review of Systems General: Denies fever, chills, fatigue, PARK or weight loss/gain CV: Denies CP, palpitations or swelling in legs Resp: denies cough, SOB or wheezing GI: Denies abd pain/n/v/c/d Skin: Denies rash Neuro: Denies LH or dizziness Medical, Surgical, Family, and Social History reviewed. OBJECTIVE: Visit Vitals BP 118/70 (BP Location: Right arm, Patient Position: Sitting, BP Cuff Size: Adult) Pulse 68 Temp 98.4 F (Temporal) Ht 4' 10 SpO2 98% BMI 26.96 kg/m OB Status Hysterectomy Smoking Status Never BSA 1.55 m BP Readings from Last 3 Encounters: 07/07/24 118/70 06/02/24 147/65 03/24/24 139/67 Wt Readings from Last 3 Encounters: 06/02/24 129 lb 04/24/24 129 lb 14.4 oz 03/24/24 123 lb Physical Exam Physical Exam Lungs were auscultated. Heart was examined. General: alert & oriented, NAD Head: NC/AT Oral Cavity: MMM Skin: warm, dry Heart: RRR, No m/r/g, S1S2 nml Lungs: CTA b/l Abdomen: soft, ND/NT, BS wnl Musculoskeletal: normal gait Extremities: no clubbing, cyanosis or edema Neurological: nonfocal Psych: mood/affect full range Results ASSESSMENT AND PLAN: Assessment & Plan 1. Knee pain. She is scheduled for a follow-up appointment with her orthopedic surgeon regarding her knee condition. She has been informed that additional surgical interventions may be necessary due to ligamentouslaxity. Postoperative rehabilitation and transitional care have also been discussed as part of her t reatment plan. A prescription for 90 tablets of her pain medication was issued on 07/01/2023. She has been advised to communicate any need for an increase in her medication dosage, which will be considered during her next refill. She has been encouraged to continue her current regimen of rest and exercise. 2. Dental issues. She has been recovering from dental procedures, which have included the placement of upper dentures. She describes the experience as unusual, particularly the sensation of a full set of teeth and theassociated increase in salivation. She has not yet attempted to insert the lower dentures. She has been adjusting her diet accordingly, avoiding certain foods and expressing a desire to consume salads. She has completed all necessary dental appointments. Follow-up The patient will follow up in 3 months. PROCEDURE The patient has undergone dental procedures, including the placement of upper dentures. Assessment/Plan Problem List Items Addressed This Visit None Health Maintenance Due Topic Date Due Diabetes: Retinopathy Screening 12/10/2023 documented in this [facility]12-12-2024 Telephone encounter Note* Telephone Encounter - ANA Whitlock - 06/26/2024 8:57 AM EST completed [id number] Miscellaneous Notes* Telephone Encounter - ANA Whitlock - 06/26/2024 8:57 AM EST completed documented in this [facility]11-23-2024 Evaluation note* Diagnosis Onset Date Resolution Status Admit Date Acute lower respiratory infection acute June 07, 2 024 1:46pm Osteoarthritis of left knee acute July 23, 2024 3:01pm Osteoarthritis of right knee acute July 23, 2024 3:01pm Pre-op exam acute July 23, 2024 3:01pm Osteoarthritis of right shoulder chronic July 23 3:01pm [facility] Work Phone: 1(102) 592-122811-23-2024 Evaluation note* Diagnosis Onset Date Resolution Status Admit Date Acute lower respiratory infection acute June 07, 2 024 1:46pm Osteoarthritis of left knee acute July 23, 2024 3:01pm Osteoarthritis of right knee acute July 23, 2024 3:01pm Pre-op exam acute July 23, 2024 3:01pm Osteoarthritis of right shoulder chronic July 23 3:01pm Osteoarthritis of left knee acute September 03, 2024 3:09pm Osteoarthritis of right knee acute September 03, 2024 3:09pm Pre-op exam acute August 3:09pm Primary osteoarthritis of le ft knee acute September 03, 2 025 3:09pm Primary osteoarthritis of ri ght shoulder acute September 03, 2 025 3:09pm Osteoarthritis of right shoulder chronic September 03, 2 025 3:09pm [facility] Work Phone: 1(318) 123-597111-18-2024 History of Present illness Narrative* Tabitha Valentino, SUNG - 06/02/2024 3:30 PM EST Subjective Patient ID: Nata Pete is a 79 y.o. female who presents for Follow-up (Nailcare). Nail care Location nails on bilateral feet Severity of symptoms mild Onset gradual Status no change Context hard to trim, hard to reach Nails thickened, discolored, pain Relieved by debridement, filing down nails, clipping nails History of ulcers/wounds no Sugar was 96 this am Aggravated by shoe gear, pressure DLS 04-24-24 PCP Zuri Hannah MD/Charito Ragland NP ROS General: Chillsdenies. Feverdenies. Musculoskeletal: muscle weaknessdenies. Bone/joint symptomsdenies. Peripheral Vascular: Edemadenies. Hx of blood clots in legsdenies. Raynaud'sdenies. Rest pain denies. Ulceration of feetdenies. Varicose veinsdenies. Skin: Hyperpigmentationdenies. Nail changesdenies. Rashdenies. Skin lesion(s)denies. Neurologic: Gait abnormalitydenies. Tingling/Numbnessdenies. Current Medications Current Outpatient Medications: Ascorbic Acid (VITAMIN C PO), Take by mouth, Disp: , Rfl: atenolol (Tenormin) 25 MG tablet, Take 0.5 tablets (12.5 mg) by mouth Daily Take 12.5mg by mouth daily, Disp: 45 tablet, Rfl: 3 Blood Glucose Monitoring Suppl (ONE TOUCH ULTRA 2) w/Device kit, , Disp: , Rfl: Calcium Carb-Cholecalciferol (CALCIUM 600 + D PO), Take by mouth, Disp: , Rfl: CeleBREX 100 MG capsule, 1 (one) time each day at the same time., Disp: , Rfl: Elderberry 575 MG/5ML syrup, as directed Orally, Disp: , Rfl: escitalopram (Lexapro) 20 MG tablet, Take 1 tablet (20 mg) by mouth at bedtime, Disp: 90 tablet, Rfl: 3 famotidine (Pepcid) 20 MG tablet, TAKE 1 TABLET BY MOUTH IN THE MORNING, Disp: 90 tablet, Rfl: 0 furosemide (Lasix) 20 MG tablet, TAKE 1 TABLET BY MOUTH EVERY DAY for 30, Disp: 90 tablet, Rfl: 3 glucose blood (The Style ClubTouch Ultra) test strip, USE DIRECTED ONCE DAILY, Disp: 100 each, Rfl: 11 HYDROcodone-acetaminophen ([place]) 5-325 MG tablet, Take 1 tablet by mouth in the morning and 1 tablet in the evening and 1 tablet before bedtime., Disp: 90 tablet, Rfl: 0 Lancets (OneTouch Delica Plus [id number]) [facility], , Disp: , Rfl: lidocaine (Lidoderm) 5 % patch, Apply 1 patch topically Daily Remove & discard patch within 12 hours or as directed by MD., Disp: , Rfl: lisinopril 20 MG tablet, TAKE 1/4 TABLET BY MOUTH TWICE DAILY for 90, Disp: 45 tablet, Rfl: 3 LORazepam (Ativan) 0.5 MG tablet, Take 1 tablet (0.5 mg) by mouth See administration instructions One hour before dental procedure, Disp: 2 tablet, Rfl: 0 metFORMIN (Glucophage) 500 MG tablet, Take 1 tablet (500 mg) by mouth 1 (one) time each day at the same time, Disp: 90 tablet, Rfl: 3 omega-3 (Fish Oil) 1200 MG capsule, 1 capsule 1 (one) time each day at the same time., Disp: , Rfl: simvastatin (Zocor) 40 MG tablet, Take 1 tablet (40 mg) by mouth 1 (one) time each day at the same time., Disp: 90 tablet, Rfl: 3 Allergies Bee venom, Bee pollen, Miconazole, and Tramadol Medical Histories Past Medical History: Diagnosis Date Arthritis COVID 07/2021 Diabetes (CMS/HCC) High cholesterol (CMS/HCC) Hip fracture (CMS/HCC) Hypertension (CMS/HCC) Osteoarthritis Surgical Histories Past Surgical History: Procedure Laterality Date APPENDECTOMY CHOLECYSTECTOMY HIP FRACTURE SURGERY Left 2019 HIP SURGERY Right 2013 HYSTERECTOMY TONSILLECTOMY Hospitalizations Family History Family History Problem Relation Name Age of Onset Diabetes Mother Stroke Mother Arthritis Mother Hypertension Father Heart disease Father Hypertension Sister Diabetes Brother Cancer Daughter Objective Foot Exam General Examination: awake, aware of surroundings, in no acute distress. FOOT EXAM: Date of Last Foot Exam 09/21/23 Sensory testing performed: sensations diminished Vascular: DORSALIS PEDIS PULSE:2/4, bilaterally. POSTERIOR TIBIAL PULSE:2/4, bilaterally. TEMPERATURE GRADIENT:warm to cool. EDEMA:minimal. CAPILLARY FILLING TIME(sec):capillary fill intact bilateral digits less than 3 secs. Dermatologic: HYPERKERATOSIS: distal 3 rt minimal, more 2nd toe NAIL PATHOLOGY:digits 1-5 bilateral are intact. . atrophic skin with neg digital hair and hyperpigmentation. Nail Pathology: Right Foot: 1 (great toe)Long, Thick, Crumbly, Deformed, Discolored, Brittle, Dystrophic 5 mm. 2Long, Thick, Crumbly, Deformed, Discolored, Brittle, Dystrophic 4 mm. 3Long, Thick, Crumbly, Deformed, Discolored, Brittle, Dystrophic. 4Thick Thick. 5Long, Thick, Crumbly, Deformed, Discolored, Brittle, Dystrophic.3mm Nail Pathology: Left Foot: 1 (great toe)Long, Thick, Crumbly, Deformed, Discolored, Brittle, Dystrophic4 mm. 2Long, Thick, Crumbly, Deformed, Discolored, Brittle, Dystrophic 3 mm. 3Long, Thick, Crumbly, Deformed, Discolored, Brittle, Dystrophic. 4Long Thick. 5Long, Thick, Crumbly, Deformed, Discolored, Brittle, Dystrophic.3mm Modifier: -q9, Parastesias. Orthopedic: DEFORMITIES:Hallux abductovalgus , Hammer toe , bilateral. Moderate digital deformity, bilateral and bunion deformity nonreducible. No medial ankle pain and sinus tarsi pain, right . right third toe with hammertoe deformity and excessive flexor stabilizationnoted. Rt overlapping HT 2 most severe, HAV. left 1/2 short leg with shoe wear in agreement. Neurologic: Vibratory sensation, shapr/dull and light touch are decreased to the plantar foot bilateral, lessertoes most. Ankle / Foot: Right ankle calcaneal valgus severe nonreducible. Left moderate and semi- reducible weak inversion right in all other groups, 5 over 5 bilateral. Assessment/Plan DM neuropathy with mycotic nails, mild callus and edema/veinous insuff. stable Nails: all thick and dystrophic nails debrided of all affected and loose material All of the nondystrophic nails were debrided [place] debr 2 distal documented in this [facility]11-18-2024 Miscellaneous Notes* Telephone Encounter - ANA Whitlock - 06/02/2024 12:15 PM EST completed documented in this [facility]11-18-2024 Telephone encounter Note* Telephone Encounter - ANA Whitlock - 06/02/2024 12:15 PM EST completed [facility] [id number] Telephone encounter Note* Telephone Encounter - ANA Whitlock - 05/26/2024 9:13 AM EST completed [facility] [id number] Miscellaneous Notes* Telephone Encounter - ANA Whitlock - 05/26/2024 9:13 AM EST completed documented in this encounterSac[facility] [id number] History of Present illness Narrative* ANA Whitlock - 04/24/2024 3:00 PM EDT Images from the original note were not included. Nata Pete is a 79 y.o. female presents with chief complaint of Immunizations (Patient received flu vaccine in office ) and Diabetes (A1C check and Retinapathy) HPI: Hgba1c 5.3 Lab Results Component Value Date HGBA1C 5.0 01/28/2024 History of Present Illness The patient is a 79-year-old female who presents for evaluation of multiple medical concerns. She has been experiencing swelling, which she attributes to her reduced mobility. She has not takenher prescribed diuretic today. She spends most of her day seated or lying down with her legs elevated. She uses a walker for mobility and can perform most daily activities independently, with assistance from her daughter for bathing. She has difficulty moving quickly, particularly at night when sheneeds to use the bathroom. She received cortisone injections in her knee and shoulder yesterday. She underwent x-rays of both knees and her shoulder yesterday, which showed no changes from previous images taken two years ago. She has had three teeth extracted and is due for one more dental treatment. Her sleep is generally good. She monitors her blood pressure every few weeks. IMMUNIZATIONS She had pneumonia vaccine last year. MEDICATIONS: Current Outpatient Medications Medication Instructions Ascorbic Acid (VITAMIN C PO) Oral atenolol (TENORMIN) 12.5 mg, Oral, Daily, Take 12.5mg by mouth daily Blood Glucose Monitoring Suppl (ONE TOUCH ULTRA 2) w/Device kit Calcium Carb-Cholecalciferol (CALCIUM 600 + D PO) Oral CeleBREX 100 MG capsule Every 24 hours Elderberry 575 MG/5ML syrup as directed Orally escitalopram (LEXAPRO) 20 mg, Oral, Daily famotidine (PEPCID) 20 mg, Oral, Every morning furosemide (Lasix) 20 MG tablet TAKE 1 TABLET BY MOUTH EVERY DAY for 30 glucose blood ([employer] Ultra) test strip USE DIRECTED ONCE DAILY HYDROcodone-acetaminophen ([place]) 5-325 MG tablet 1 tablet, Oral, 2 times daily Lancets (OneTouch Delica Plus [id number]) misc lidocaine (Lidoderm) 5 % patch 1 patch, Apply externally, Daily, Remove & discard patch within 12 hours or as directed by MD. lisinopril 20 MG tablet TAKE 1/4 TABLET BY MOUTH TWICE DAILY for 90 LORazepam (ATIVAN) 0.5 mg, Oral, See admin instructions, One hour before dental procedure metFORMIN (GLUCOPHAGE) 500 mg, Oral, Every 24 hours omega-3 (Fish Oil) 1200 MG capsule 1 capsule, Every 24 hours simvastatin (ZOCOR) 40 mg, Oral, Every 24 hours ALLERGIES: Allergies Allergen Reactions Bee Venom Shortness of breath Bee Pollen Unknown Miconazole Unknown Tramadol Unknown Review of Systems General: Denies fever, chills, fatigue, PARK or weight loss/gain CV: Denies CP, palpitations or swelling in legs Resp: denies cough, SOB or wheezing GI: Denies abd pain/n/v/c/d Skin: Denies rash Neuro: Denies LH or dizziness Medical, Surgical, Family, and Social History reviewed. OBJECTIVE: Visit Vitals Pulse 63 Temp 98.4 F (Temporal) Ht 4' 10 Wt 129 lb 14.4 oz SpO2 95% BMI 27.15 kg/m OB Status Hysterectomy Smoking Status Never BSA 1.55 m BP Readings from Last 3 Encounters: 03/24/24 139/67 01/28/24 134/68 12/31/23 129/75 Wt Readings from Last 3 Encounters: 04/24/24 129 lb 14.4 oz 03/24/24 123 lb 01/28/24 123 lb Physical Exam Physical Exam General: alert & oriented, NAD Head: NC/AT Oral Cavity: MMM Skin: warm, dry Heart: RRR, No m/r/g, S1S2 nml Lungs: CTA b/l Abdomen: soft, ND/NT, BS wnl Musculoskeletal: normal gait Extremities: no clubbing, cyanosis or edema Neurological: nonfocal Psych: mood/affect full range Results Laboratory Studies Hemoglobin A1c is 5.3. ASSESSMENT AND PLAN: Assessment & Plan 1. Edema. She reports swelling, likely exacerbated by reduced mobility and dietary salt intake. She did not take her water pill today to avoid frequent urination during the visit. She is advised to continue monitoring her salt intake and to take her water pill as prescribed when at home. A raised toilet seatwith metal railing has been recommended to assist with mobility. 2. Pain Management. She is experiencing significant pain, particularly in her knees and shoulder, which has been managed with cortisone injections. The dosage of her pain medication has been increased to three times a day to better manage her pain. The prescription will be sent to [facility] in [place]. 3. Dental Issues. She has one more dental treatment remaining to extract the remaining teeth to prevent infection. She is advised to proceed with the dental plan as discussed with her dentist. 4. Health Maintenance. An influenza vaccine was administered during this visit. She received pneumonia shots last year anddoes not require another at this time. Assessment/Plan Problem List Items Addressed This Visit Chronic pain disorder Relevant Medications HYDROcodone-acetaminophen ([place]) 5-325 MG tablet Controlled type 2 diabetes mellitus with diabetic polyneuropathy, 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 ([facility]) Relevant Orders POCT glycated hemoglobin, total docked device (Completed) Other Visit Diagnoses Need for immunization against influenza Relevant Orders Flu vaccine, quadrivalent, recombinant, preservative free (Completed) Health Maintenance Due Topic Date Due Diabetes: Retinopathy Screening 12/10/2023 Influenza Vaccine (1) 03/16/2024 Diabetes: Hemoglobin A1C 04/29/2024 documented in this encounterSac-[facility] [id number] History of Present illness Narrative* Tabitha Valentino DPM - 03/24/2024 4:15 PM EDT Subjective Patient ID: Nata Pete is a 78 y.o. female who presents for Follow-up (Nailcare). Nail care Location nails on bilateral feet Severity of symptoms mild Onset gradual Status no change Context hard to trim, hard to reach Nails thickened, discolored, pain Relieved by debridement, filing down nails, clipping nails History of ulcers/wounds no Sugar was 96 this am Aggravated by shoe gear, pressure DLS 15-24 PCP Zuri Hannah MD ROS General: Chillsdenies. Feverdenies. Musculoskeletal: muscle weaknessdenies. Bone/joint symptomsdenies. Peripheral Vascular: Edemadenies. Hx of blood clots in legsdenies. Raynaud'sdenies. Rest pain denies. Ulceration of feetdenies. Varicose veinsdenies. Skin: Hyperpigmentationdenies. Nail changesdenies. Rashdenies. Skin lesion(s)denies. Neurologic: Gait abnormalitydenies. Tingling/Numbnessdenies. Current Medications Current Outpatient Medications: Ascorbic Acid (VITAMIN C PO), Take by mouth, Disp: , Rfl: atenolol (Tenormin) 25 MG tablet, Take 0.5 tablets (12.5 mg) by mouth Daily Take 12.5mg by mouth daily, Disp: 45 tablet, Rfl: 3 Blood Glucose Monitoring Suppl (ONE TOUCH ULTRA 2) w/Device kit, , Disp: , Rfl: Calcium Carb-Cholecalciferol (CALCIUM 600 + D PO), Take by mouth, Disp: , Rfl: CeleBREX 100 MG capsule, 1 (one) time each day at the same time., Disp: , Rfl: Elderberry 575 MG/5ML syrup, as directed Orally, Disp: , Rfl: escitalopram (Lexapro) 20 MG tablet, Take 1 tablet (20 mg) by mouth in the morning. (Patient takingdifferently: Take 20 mg by mouth at bedtime), Disp: 90 tablet, Rfl: 3 famotidine (Pepcid) 20 MG tablet, Take 1 tablet (20 mg) by mouth in the morning., Disp: 90 tablet, Rfl: 3 furosemide (Lasix) 20 MG tablet, TAKE 1 TABLET BY MOUTH EVERY DAY for 30, Disp: 90 tablet, Rfl: 3 glucose blood ([employer]uch Ultra) test strip, USE DIRECTED ONCE DAILY, Disp: 100 each, Rfl: 11 HYDROcodone-acetaminophen (Salis[place]) 5-325 MG tablet, Take 1 tablet by mouth in the morning and 1 tablet before bedtime., Disp: 60 tablet, Rfl: 0 Lancets ([employer] Style [employer]Touch Delica Plus [id number]) [facility], , Disp: , Rfl: lidocaine (Lidoderm) 5 % patch, Apply 1 patch topically Daily Remove & discard patch within 12 hours or as directed by MD., Disp: , Rfl: lisinopril 20 MG tablet, TAKE 1/4 TABLET BY MOUTH TWICE DAILY for 90, Disp: 45 tablet, Rfl: 3 LORazepam (Ativan) 0.5 MG tablet, Take 1 tablet (0.5 mg) by mouth See administration instructions One hour before dental procedure, Disp: 2 tablet, Rfl: 0 metFORMIN (Glucophage) 500 MG tablet, Take 1 tablet (500 mg) by mouth 1 (one) time each day at the same time, Disp: 90 tablet, Rfl: 3 omega-3 (Fish Oil) 1200 MG capsule, 1 capsule 1 (one) time each day at the same time., Disp: , Rfl: simvastatin (Zocor) 40 MG tablet, Take 1 tablet (40 mg) by mouth 1 (one) time each day at the same time., Disp: 90 tablet, Rfl: 3 Allergies Bee venom, Bee pollen, Miconazole, and Tramadol Medical Histories Past Medical History: Diagnosis Date Arthritis COVID 07/2021 Diabetes (CMS/HCC) High cholesterol (CMS/HCC) Hip fracture (CMS/HCC) Hypertension (CMS/HCC) Osteoarthritis Surgical Histories Past Surgical History: Procedure Laterality Date APPENDECTOMY CHOLECYSTECTOMY HIP FRACTURE SURGERY Left 2019 HIP SURGERY Right 2013 HYSTERECTOMY TONSILLECTOMY Hospitalizations Family History Family History Problem Relation Name Age of Onset Diabetes Mother Stroke Mother Arthritis Mother Hypertension Father Heart disease Father Hypertension Sister Diabetes Brother Cancer Daughter Objective Foot Exam General Examination: awake, aware of surroundings, in no acute distress. FOOT EXAM: Date of Last Foot Exam 09/21/23 Sensory testing performed: sensations diminished Vascular: DORSALIS PEDIS PULSE:2/4, bilaterally. POSTERIOR TIBIAL PULSE:2/4, bilaterally. TEMPERATURE GRADIENT:warm to cool. EDEMA:minimal. CAPILLARY FILLING TIME(sec):capillary fill intact bilateral digits less than 3 secs. Dermatologic: HYPERKERATOSIS: distal 3 rt minimal NAIL PATHOLOGY:digits 1-5 bilateral are intact. . atrophic skin with neg digital hair and hyperpigmentation. Nail Pathology: Right Foot: 1 (great toe)Long, Thick, Crumbly, Deformed, Discolored, Brittle, Dystrophic 5 mm. 2Long, Thick, Crumbly, Deformed, Discolored, Brittle, Dystrophic 4 mm. 3Long, Thick, Crumbly, Deformed, Discolored, Brittle, Dystrophic. 4Thick Thick. 5Long, Thick, Crumbly, Deformed, Discolored, Brittle, Dystrophic.3mm Nail Pathology: Left Foot: 1 (great toe)Long, Thick, Crumbly, Deformed, Discolored, Brittle, Dystrophic4 mm. 2Long, Thick, Crumbly, Deformed, Discolored, Brittle, Dystrophic 3 mm. 3Long, Thick, Crumbly, Deformed, Discolored, Brittle, Dystrophic. 4Long Thick. 5Long, Thick, Crumbly, Deformed, Discolored, Brittle, Dystrophic.3mm Modifier: -q9, Parastesias. Orthopedic: DEFORMITIES:Hallux abductovalgus , Hammer toe , bilateral. Moderate digital deformity, bilateral and bunion deformity nonreducible. No medial ankle pain and sinus tarsi pain, right . right third toe with hammertoe deformity and excessive flexor stabilizationnoted. Rt overlapping HT 2 most severe, HAV. left 1/2 short leg with shoe wear in agreement. Neurologic: Vibratory sensation, shapr/dull and light touch are decreased to the plantar foot bilateral, lessertoes most. Ankle / Foot: Right ankle calcaneal valgus severe nonreducible. Left moderate and semi- reducible weak inversion right in all other groups, 5 over 5 bilateral. Assessment/Plan DM neuropathy with mycotic nails, mild callus and edema/veinous insuff. stable Nails: all thick and dystrophic nails debrided of all affected and loose material All of the nondystrophic nails were debrided documented in this encounterSac-Osage [id number] History of Present illness Narrative* ANA Whitlock - 03/13/2024 11:00 AM EDT Images from the original note were not included. Nata Pete is a 78 y.o. female presents with chief complaint of No chief complaint on file. HPI: History of Present Illness Patient here for anxiety Patient was in ER on 03-10-2024 the dentist sent her to [facility] ER due to fact she was acting strange while at dentist office and they wanted her check out MEDICATIONS: Current Outpatient Medications Medication Instructions Ascorbic Acid (VITAMIN C PO) Oral atenolol (TENORMIN) 12.5 mg, Oral, Daily, Take 12.5mg by mouth daily Blood Glucose Monitoring Suppl (ONE TOUCH ULTRA 2) w/Device kit Calcium Carb-Cholecalciferol (CALCIUM 600 + D PO) Oral CeleBREX 100 MG capsule Every 24 hours Elderberry 575 MG/5ML syrup as directed Orally escitalopram (LEXAPRO) 20 mg, Oral, Daily famotidine (PEPCID) 20 mg, Oral, Daily furosemide (Lasix) 20 MG tablet TAKE 1 TABLET BY MOUTH EVERY DAY for 30 glucose blood ([employer]Touch Ultra) test strip USE DIRECTED ONCE DAILY HYDROcodone-acetaminophen ([place]) 5-325 MG tablet 1 tablet, Oral, 2 times daily Lancets ([employer]Touch Delica Plus [id number]) misc lidocaine (Lidoderm) 5 % patch 1 patch, Apply externally, Daily, Remove & discard patch within 12 hours or as directed by MD. lisinopril 20 MG tablet TAKE 1/4 TABLET BY MOUTH TWICE DAILY for 90 LORazepam (ATIVAN) 0.5 mg, Oral, See admin instructions, One hour before dental procedure metFORMIN (GLUCOPHAGE) 500 mg, Oral, Every 24 hours omega-3 (Fish Oil) 1200 MG capsule 1 capsule, Every 24 hours simvastatin (ZOCOR) 40 mg, Oral, Every 24 hours ALLERGIES: Allergies Allergen Reactions Bee Venom Shortness of breath Bee Pollen Unknown Miconazole Unknown Tramadol Unknown Review of Systems General: Denies fever, chills, fatigue, PARK or weight loss/gain CV: Denies CP, palpitations or swelling in legs Resp: denies cough, SOB or wheezing GI: Denies abd pain/n/v/c/d Skin: Denies rash Neuro: Denies LH or dizziness Medical, Surgical, Family, and Social History reviewed. OBJECTIVE: Visit Vitals Smoking Status Never BP Readings from Last 3 Encounters: 03/24/24 139/67 01/28/24 134/68 12/31/23 129/75 Wt Readings from Last 3 Encounters: 03/24/24 123 lb 01/28/24 123 lb 12/31/23 127 lb Physical Exam Physical Exam General: alert & oriented, NAD Head: NC/AT Oral Cavity: MMM Skin: warm, dry Heart: RRR, No m/r/g, S1S2 nml Lungs: CTA b/l Abdomen: soft, ND/NT, BS wnl Musculoskeletal: normal gait Extremities: no clubbing, cyanosis or edema Neurological: nonfocal Psych: mood/affect full range Results ASSESSMENT AND PLAN: Assessment & Plan Assessment/Plan Problem List Items Addressed This Visit Reactive depression ([facility]) - Primary Anxiety Health Maintenance Due Topic Date Due Diabetes: Retinopathy Screening 12/10/2023 Influenza Vaccine (1) 03/16/2024 documented in this encounterSac-Osage [id number] Evaluation + Plan note Extracted from: Title:Pain Managment H&P new patient Author:Kaci Dobbs PA-C Date:10/17/23 Patient: NATA PETE Age: 78 years Sex: Female : 1945 Associated Diagnoses: None Author: Kaci Morton PA-C Basic Information Accompanied by: Family member. Source of history: Self, Family member, Medical record. Referral source: Aisha RAGLAND PA-C History limitation: None. Chief Complaint 10/17/2023 10:18 EDT Right shoulder & right knee pain History of Present Illness Patient is a 78-year-old female. She has a past medical history significant for bilateral knee pain, bilateral knee arthritis, right shoulder pain and right shoulder arthritis. Patient is here today as referred by her PCP. She states that they have been giving her Salisbury 5/325 twice daily as needed pain that [...] All Problems Resolved: Hypertension / SNOMED CT 60455446 Resolved: Osteoarthritis / SNOMED CT 3648666558 Resolved: High cholesterol / SNOMED CT 1236240526 Resolved: Diabetes mellitus / SNOMED CT 705592504 Histories Past Medical History: Resolved Hypertension (58274377): Resolved. Osteoarthritis (3672034444): Resolved. High cholesterol (0989452213): Resolved. Diabetes mellitus (649253830): Resolved. Family History: Hypertension Father Brother Sister Heart disease Father Diabetes mellitus type 2 Mother Brother Stroke Mother CAD (coronary artery disease) Father Procedure history: Appendectomy (SNOMED CT 403181505). Cholecystectomy (SNOMED CT 33875234). Tonsillectomy (SNOMED CT 007671449). Repair of right hip joint (SNOMED CT 078042995904377). Osteoporotic fracture of left hip (SNOMED CT 728002460785961). Social History Social & Psychosocial Habits Alcohol 4Risk Assessment: Denies Alcohol Use Substance Abuse 10/17/2023isk Assessment: Denies Substance Abuse Tobacco 10/17/2023 Tobacco Use: Never (less than 100 in l 10/17/2023isk Assessment: Denies Tobacco Use . Physical Examination Vital Signs (last 24 hrs) Last Charted Heart Rate Mokokviadt70 bpm (OCT 16 10:18) XRV220 mmHg (OCT 16 10:18) DBP64 mmHg (OCT 16 10:18) Lmugmv85 kg (OCT 16 10:18) BMI27.68 (OCT 16 [...] Appropriate mood & affect. Integumentary: Warm, Dry, [place]. Review / Management Results review: No qualifying [...] with her PCP. She has been getting Salisbury from her PCP. 5/325 twice daily. She [...] ranged due to being in a brace/AFO [facility]03-18-2024 Evaluation + Plan noteExtracted from: Title:ED Note Author:Bryant Brigitteah Angel Luis Date :10/01/23 Acute UTI (N39.0: Urinary tr act infection, site not specified) Orders: cephalexin, 500 mg = 1 cap(s), Oral, q12hr, X 7 day(s), # 14 cap(s), Refills(s) 0, Pharmacy: [facility]/pharmacy #[id number], 175, cm, 10/01/23 5:36:00 EDT, Height/Length Dosing, 55, kg, 10/01/23 5:36:00 EDT, Weight Dosing cephalexin, 500 mg = 1 cap(s), Cap, Oral, Once, Stop date 10/01/23 6:24:00 EDT, STAT, Start date 10/01/23 6:24:00 EDT, 10/01/23 6:24:00 EDT phenazopyridine, 100 mg = 1 tab(s), Oral, TID, X 3 day(s), # 9 tab(s), Refills(s) 0, [id number] 175, cm, 10/01/23 5:36:00 EDT, Height/Length Dosing, 55, kg, 10/01/23 5:36:00 EDT, Weight Dosing UA With Cult Reflex Urine Culture Future Appointments Appointment Date:10/17/2023 10:45:00 AM Scheduled Provider:Kaci Morton PA-C Location:[facility].Pain Mgmt [place] Appointment Type:Pain Management - New (FT) Diagnostic Tests Pending * Urine Culture 10/01/23 [facility]03-18-2024 Hospital Discharge instructions Patient Education 10/01/2023 06:38:16 [...] Treatment for this condition includes: Antibiotic medicine. Mzsi-nyb-wkolnua medicines to treat discomfort. Drinking enough water [...] Follow these instructions at home: Medicines Take jysh-qiq-xdhpipn and prescription medicines only as told by [...] provider. Document Revised: 02/11/2021 Document Reviewed: 02/11/2021 [employer] Patient Education 2022 [employer]. Follow Up Care 10/01/2023 05:17:03 With:Aisha RAGLAND Address: [address] [place] [phone] Business (1) When:Within 3 Day(s) [facility]02-13-2024 History of Present illness Narrative* ANA Whitlock - 08/28/2023 3:03 PM ESTAssociated Problem(s): Chronic pain disorder Patient will call when need refill * ANA Whitlock - 08/28/2023 3:02 PM ESTAssociated Problem(s): Controlled type 2 diabetes mellitus with diabetic polyneuropathy, without dino g-term current use of insulin ([facility]) Well controlled will continue meds * [...] MOUTH EVERY DAY for 30 glucose blood (OneTouch Ultra) test strip USE DIRECTED ONCE DAILY HYDROcodone-acetaminophen ([place]) 5-325 MG tablet 1 tablet, Oral, 2 times daily Lancets (OneTouch Delica Plus [id number]) misc lisinopril 20 MG tablet TAKE 1/4 [...] call when need refill Relevant Orders Handicap Vicenta Lifetime Microalbumin / creatinine urine ratio (Completed) Controlled type 2 diabetes mellitus with diabetic polyneuropathy, 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 ([facility]) Well controlled will continue meds Relevant Orders POCT Glycated hemoglobin, total (Completed) Microalbumin / creatinine urine ratio (Completed) documented in this encounterSac-Osage [id number] Evaluation note* Encounter Date Diagnosis Assessment Notes [...] pain of right shoulder (ICD-10 - M25.511) [employer] Other 11-27-2023 Evaluation note* Encounter Date Diagnosis Assessment Notes Treatment Notes Treatment Clinical Notes May, Primary osteoarthritis of right shoulder (ICD-10 - M19.011) [employer] Other 09-06-2023 Evaluation note* Encounter Date Diagnosis [...] pain of right shoulder (ICD-10 - M25.511) [employer] Other 07-31-2023 Evaluation note* Encounter Date Diagnosis Assessment Notes Treatment Notes Treatment Clinical Notes Jan, Primary osteoarthritis of right shoulder (ICD-10 - M19.011) [employer] Other 03-01-2023 Evaluation note* Encounter Date Diagnosis [...] unfortunately her daughter, who would be her mobile crane operator, is having some medical issues and she [...] pain of right shoulder (ICD-10 - M25.511) [employer] Other 11-30-2022 Evaluation note* Encounter Date Diagnosis [...] unfortunately her daughter, who would be her mobile crane operator, is having some medical issues and she [...] a trial of 3 months or longer. [employer] Other 11-28-2022 Evaluation note* Encounter Date Diagnosis Assessment Notes Treatment Notes Treatment Clinical Notes May, Primary osteoarthritis of both knees (ICD-10 - M17.0) [employer] Other 03-23-2022 Evaluation note* Encounter Date Diagnosis [...] as documented in the electronic medical record. [employer] Other 09-22-2021 Evaluation note* Encounter Date Diagnosis [...] Other specified postprocedural states (ICD-10 - Z98.890) [employer] Other 10-01-2013 History general Narrative - Reported* Type Description Date Medical History right hip fracture S/P SCREW FIX ATION Medical History HTN Medical History HLD Surgical History RIGHT HIP FRACTURE S/P SCREW FI XATION ([facility]) 04/2013 Surgical History S/P HYSTERECTOMY Surgical History S/P CHOLECYSTECTOMY Surgical History femoral head fixation Hospitalization History ABOVE [employer] Other Chief complaint+Reason for visit Narrative* Chief Complaint op sp rt shoulder pa in lt knee pain req injection feeling not right after procedure Reason for Visit Osteoarthritis of le ft knee Osteoarthritis of right knee Osteoarthritis of right shoulder [facility] Work Phone: Chief complaint+Reason for visit Narrative* Chief Complaint feeling not right af ter procedure [facility]IL[facility] PT OP SP RT KNEE PAIN M17.12 - Unilateral primary osteoarthritis, left k Reason for Visit Osteoarthritis of le ft knee Osteoarthritis of right knee Osteoarthritis of right shoulder [facility] Work Phone: Evaluation noteNortIDENT[employer] Other Evaluation noteNo assessment information available [facility] Work Phone: Evaluation noteNo InformationNort Style[employer] Other Evaluation note* Diagnosis Chronic pain disorder- Primary Chronic pain syndrome Controlled type 2 diabetes mellitus with diabetic polyneuropathy, 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 (CMS/HCC) documented in this encounter [facility]* Diagnosis Onset Date Resolution Status Osteoarthritis of left knee acute Osteoarthritis of right knee acute Osteoarthritis of right shoulder chronic [facility] Work Phone: Evaluation note* Diagnosis GERD without esophagitis Esophageal reflux documented in this encounter [facility] HealthcareEvaluation note* Diagnosis Chronic pain disorder- Primary Chronic pain syndrome Controlled type 2 diabetes mellitus with diabetic polyneuropathy, 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 (CMS/HCC) Encounter for immunization Essential hypertension (CMS/HCC) Unspecified essential hypertension Controlled type 2 diabetes mellitus with diabetic polyneuropathy, 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 (CMS/HCC)- Primary Chronic pain disorder Chronic pain syndrome Essential hypertension (CMS/HCC) Unspecified essential hypertension GERD without esophagitis Esophageal reflux Chronic pain disorder- Primary Chronic pain syndrome Controlled type 2 diabetes mellitus with diabetic polyneuropathy, 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 (CMS/HCC) Chronic pain disorder- Primary Chronic pain syndrome Screen for colon cancer Special screening for malignant neoplasms, colon Controlled type 2 diabetes mellitus with diabetic polyneuropathy, 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 (CMS/HCC) History of UTI Dysuria Medicare annual wellness visit, subsequent Chronic pain of right knee- Primary Controlled type 2 diabetes mellitus with diabetic polyneuropathy, 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 (CMS/HCC) Chronic pain disorder Chronic pain syndrome Need for immunization against influenza Need for prophylactic vaccination and inoculation against influenza Controlled type 2 diabetes mellitus with diabetic polyneuropathy, 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 (CMS/HCC) Chronic pain disorder Chronic pain syndrome documented in this encounter [facility] HealthcareEvaluation note* Diagnosis Chronic pain disorder- Primary Chronic pain syndrome Controlled type 2 diabetes mellitus with diabetic polyneuropathy, 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 (CMS/HCC) Encounter for immunization Essential hypertension (CMS/HCC) Unspecified essential hypertension Controlled type 2 diabetes mellitus with diabetic polyneuropathy, 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 (CMS/HCC)- Primary Chronic pain disorder Chronic pain syndrome Essential hypertension (CMS/HCC) Unspecified essential hypertension GERD without esophagitis Esophageal reflux Chronic pain disorder- Primary Chronic pain syndrome Controlled type 2 diabetes mellitus with diabetic polyneuropathy, 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 (CMS/HCC) Chronic pain disorder- Primary Chronic pain syndrome Screen for colon cancer Special screening for malignant neoplasms, colon Controlled type 2 diabetes mellitus with diabetic polyneuropathy, 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 (CMS/HCC) History of UTI Dysuria Medicare annual wellness visit, subsequent Chronic pain of right knee- Primary Controlled type 2 diabetes mellitus with diabetic polyneuropathy, 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 (CMS/HCC) Chronic pain disorder Chronic pain syndrome Reactive depression (CMS/HCC) documented in this encounter [facility] HealthcareEvaluation note* Diagnosis Chronic pain disorder- Primary Chronic pain syndrome Controlled type 2 diabetes mellitus with diabetic polyneuropathy, 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 (CMS/HCC) Encounter for immunization Essential hypertension (CMS/HCC) Unspecified essential hypertension Controlled type 2 diabetes mellitus with diabetic polyneuropathy, 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 (CMS/HCC)- Primary Chronic pain disorder Chronic pain syndrome Essential hypertension (CMS/HCC) Unspecified essential hypertension GERD without esophagitis Esophageal reflux Chronic pain disorder- Primary Chronic pain syndrome Controlled type 2 diabetes mellitus with diabetic polyneuropathy, 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 (CMS/HCC) Chronic pain disorder- Primary Chronic pain syndrome Screen for colon cancer Special screening for malignant neoplasms, colon Controlled type 2 diabetes mellitus with diabetic polyneuropathy, 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 (CMS/HCC) History of UTI Dysuria Medicare annual wellness visit, subsequent Chronic pain of right knee- Primary Controlled type 2 diabetes mellitus with diabetic polyneuropathy, 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 (CMS/HCC) Chronic pain disorder Chronic pain syndrome Diabetic polyneuropathy associated with type 2 diabetes mellitus (CMS/HCC)- Primary Onychomycosis Dermatophytosis of nail documented in this encounter [facility] HealthcareEvaluation note* Diagnosis Chronic pain disorder- Primary Chronic pain syndrome Controlled type 2 diabetes mellitus with diabetic polyneuropathy, 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 (CMS/HCC) Encounter for immunization Essential hypertension (CMS/HCC) Unspecified essential hypertension Controlled type 2 diabetes mellitus with diabetic polyneuropathy, 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 (CMS/HCC)- Primary Chronic pain disorder Chronic pain syndrome Essential hypertension (CMS/HCC) Unspecified essential hypertension GERD without esophagitis Esophageal reflux Chronic pain disorder- Primary Chronic pain syndrome Controlled type 2 diabetes mellitus with diabetic polyneuropathy, 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 (CMS/HCC) Chronic pain disorder- Primary Chronic pain syndrome Screen for colon cancer Special screening for malignant neoplasms, colon Controlled type 2 diabetes mellitus with diabetic polyneuropathy, 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 (CMS/HCC) History of UTI Dysuria Medicare annual wellness visit, subsequent Chronic pain of right knee- Primary Controlled type 2 diabetes mellitus with diabetic polyneuropathy, 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 (CMS/HCC) Chronic pain disorder Chronic pain syndrome Chronic pain disorder Chronic pain syndrome documented in this encounter [facility]Evaluation note* Diagnosis Chronic pain disorder- Primary Chronic pain syndrome Controlled type 2 diabetes mellitus with diabetic polyneuropathy, 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 ([facility]) Encounter for immunization Essential hypertension (CMS/HCC) Unspecified essential hypertension Controlled type 2 diabetes mellitus with diabetic polyneuropathy, 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 (CMS/HCC)- Primary Chronic pain disorder Chronic pain syndrome Essential hypertension (CMS/HCC) Unspecified essential hypertension GERD without esophagitis Esophageal reflux Chronic pain disorder- Primary Chronic pain syndrome Controlled type 2 diabetes mellitus with diabetic polyneuropathy, 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 (CMS/HCC) Chronic pain disorder- Primary Chronic pain syndrome Screen for colon cancer Special screening for malignant neoplasms, colon Controlled type 2 diabetes mellitus with diabetic polyneuropathy, 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 ([facility]) History of UTI Dysuria Medicare annual wellness visit, subsequent Chronic pain of right knee- Primary Controlled type 2 diabetes mellitus with diabetic polyneuropathy, 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 ([facility]) Chronic pain disorder Chronic pain syndrome GERD without esophagitis Esophageal reflux documented in this encounter [facility]* Diagnosis Diabetic polyneuropathy associated with type 2 diabetes mellitus ([facility])- Primary Onychomycosis Dermatophytosis of nail documented in this encounter [facility]* Diagnosis Reactive depression ([facility])- Primary Anxiety Anxiety state, unspecified documented in this encounter [facility]* Diagnosis Chronic pain disorder- Primary Chronic pain syndrome Controlled type 2 diabetes mellitus with diabetic polyneuropathy, 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 (CMS/HCC) Encounter for immunization Essential hypertension (CMS/HCC) Unspecified essential hypertension Controlled type 2 diabetes mellitus with diabetic polyneuropathy, 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 (CMS/HCC)- Primary Chronic pain disorder Chronic pain syndrome Essential hypertension (CMS/HCC) Unspecified essential hypertension GERD without esophagitis Esophageal reflux Chronic pain disorder- Primary Chronic pain syndrome Controlled type 2 diabetes mellitus with diabetic polyneuropathy, 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 (CMS/HCC) Chronic pain disorder- Primary Chronic pain syndrome Screen for colon cancer Special screening for malignant neoplasms, colon Controlled type 2 diabetes mellitus with diabetic polyneuropathy, 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 (CMS/HCC) History of UTI Dysuria Medicare annual wellness visit, subsequent Chronic pain of right knee- Primary Controlled type 2 diabetes mellitus with diabetic polyneuropathy, 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 (CMS/HCC) Chronic pain disorder Chronic pain syndrome Essential hypertension (CMS/HCC) Unspecified essential hypertension Controlled type 2 diabetes mellitus with diabetic polyneuropathy, 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 (CMS/HCC) documented in this encounter [facility]* Diagnosis Chronic pain disorder- Primary Chronic pain syndrome Controlled type 2 diabetes mellitus with diabetic polyneuropathy, 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 (CMS/HCC) Encounter for immunization Essential hypertension (CMS/HCC) Unspecified essential hypertension Controlled type 2 diabetes mellitus with diabetic polyneuropathy, 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 (CMS/HCC)- Primary Chronic pain disorder Chronic pain syndrome Essential hypertension (CMS/HCC) Unspecified essential hypertension GERD without esophagitis Esophageal reflux Chronic pain disorder- Primary Chronic pain syndrome Controlled type 2 diabetes mellitus with diabetic polyneuropathy, 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 (CMS/HCC) Chronic pain disorder- Primary Chronic pain syndrome Screen for colon cancer Special screening for malignant neoplasms, colon Controlled type 2 diabetes mellitus with diabetic polyneuropathy, 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 (CMS/HCC) History of UTI Dysuria Medicare annual wellness visit, subsequent Chronic pain of right knee- Primary Controlled type 2 diabetes mellitus with diabetic polyneuropathy, 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 (CMS/HCC) Chronic pain disorder Chronic pain syndrome Reactive depression (CMS/HCC)- Primary Raynaud's disease without gangrene Osteoarthritis of multiple joints, unspecified osteoarthritis type Chronic pain of right knee Chronic pain disorder Chronic pain syndrome documented in this encounter [facility]* Diagnosis Chronic pain disorder- Primary Chronic pain syndrome Controlled type 2 diabetes mellitus with diabetic polyneuropathy, 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 (CMS/HCC) Encounter for immunization Essential hypertension (CMS/HCC) Unspecified essential hypertension Controlled type 2 diabetes mellitus with diabetic polyneuropathy, 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 (CMS/HCC)- Primary Chronic pain disorder Chronic pain syndrome Essential hypertension (CMS/HCC) Unspecified essential hypertension GERD without esophagitis Esophageal reflux Chronic pain disorder- Primary Chronic pain syndrome Controlled type 2 diabetes mellitus with diabetic polyneuropathy, 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 (CMS/HCC) Chronic pain disorder- Primary Chronic pain syndrome Screen for colon cancer Special screening for malignant neoplasms, colon Controlled type 2 diabetes mellitus with diabetic polyneuropathy, 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 (CMS/HCC) History of UTI Dysuria Medicare annual wellness visit, subsequent Chronic pain of right knee- Primary Controlled type 2 diabetes mellitus with diabetic polyneuropathy, 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 (CMS/HCC) Chronic pain disorder Chronic pain syndrome Controlled type 2 diabetes mellitus with diabetic polyneuropathy, 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 (CMS/HCC) documented in this encounter [facility]* Diagnosis Chronic pain disorder- Primary Chronic pain syndrome Controlled type 2 diabetes mellitus with diabetic polyneuropathy, 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 (CMS/HCC) Encounter for immunization Essential hypertension (CMS/HCC) Unspecified essential hypertension Controlled type 2 diabetes mellitus with diabetic polyneuropathy, 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 (CMS/HCC)- Primary Chronic pain disorder Chronic pain syndrome Essential hypertension (CMS/HCC) Unspecified essential hypertension GERD without esophagitis Esophageal reflux Chronic pain disorder- Primary Chronic pain syndrome Controlled type 2 diabetes mellitus with diabetic polyneuropathy, 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 (CMS/HCC) Chronic pain disorder- Primary Chronic pain syndrome Screen for colon cancer Special screening for malignant neoplasms, colon Controlled type 2 diabetes mellitus with diabetic polyneuropathy, 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 (CMS/HCC) History of UTI Dysuria Medicare annual wellness visit, subsequent Chronic pain of right knee- Primary Controlled type 2 diabetes mellitus with diabetic polyneuropathy, 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 (CMS/HCC) Chronic pain disorder Chronic pain syndrome Diabetic polyneuropathy associated with type 2 diabetes mellitus (CMS/HCC)- Primary Onychomycosis Dermatophytosis of nail documented in this encounter [facility] note* Diagnosis Chronic pain disorder- Primary Chronic pain syndrome Controlled type 2 diabetes mellitus with diabetic polyneuropathy, 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 (CMS/HCC) Encounter for immunization Essential hypertension (CMS/HCC) Unspecified essential hypertension Controlled type 2 diabetes mellitus with diabetic polyneuropathy, 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 (CMS/HCC)- Primary Chronic pain disorder Chronic pain syndrome Essential hypertension (CMS/HCC) Unspecified essential hypertension GERD without esophagitis Esophageal reflux Chronic pain disorder- Primary Chronic pain syndrome Controlled type 2 diabetes mellitus with diabetic polyneuropathy, 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 (CMS/HCC) Chronic pain disorder- Primary Chronic pain syndrome Screen for colon cancer Special screening for malignant neoplasms, colon Controlled type 2 diabetes mellitus with diabetic polyneuropathy, 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 (CMS/HCC) History of UTI Dysuria Medicare annual wellness visit, subsequent Chronic pain of right knee- Primary Controlled type 2 diabetes mellitus with diabetic polyneuropathy, 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 (CMS/HCC) Chronic pain disorder Chronic pain syndrome Chronic pain of right knee- Primary Controlled type 2 diabetes mellitus with diabetic polyneuropathy, 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 (CMS/HCC) Acute non-recurrent frontal sinusitis Anxiety Anxiety state, unspecified Preop examination Unspecified pre-operative examination documented in this encounter [facility]Evaluation note* Diagnosis Chronic pain disorder- Primary Chronic pain syndrome Controlled type 2 diabetes mellitus with diabetic polyneuropathy, 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 (CMS/HCC) Encounter for immunization Essential hypertension (CMS/HCC) Unspecified essential hypertension Controlled type 2 diabetes mellitus with diabetic polyneuropathy, 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 (CMS/HCC)- Primary Chronic pain disorder Chronic pain syndrome Essential hypertension (CMS/HCC) Unspecified essential hypertension GERD without esophagitis Esophageal reflux Chronic pain disorder- Primary Chronic pain syndrome Controlled type 2 diabetes mellitus with diabetic polyneuropathy, 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 (CMS/HCC) Chronic pain disorder- Primary Chronic pain syndrome Screen for colon cancer Special screening for malignant neoplasms, colon Controlled type 2 diabetes mellitus with diabetic polyneuropathy, 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 (CMS/HCC) History of UTI Dysuria Medicare annual wellness visit, subsequent Chronic pain of right knee- Primary Controlled type 2 diabetes mellitus with diabetic polyneuropathy, 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 (CMS/HCC) Chronic pain disorder Chronic pain syndrome Chronic pain of right knee- Primary Controlled type 2 diabetes mellitus with diabetic polyneuropathy, 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 (CMS/HCC) Acute non-recurrent frontal sinusitis Anxiety Anxiety state, unspecified Preop examination Unspecified pre-operative examination Chronic pain disorder Chronic pain syndrome documented in this encounter [facility]* Diagnosis Chronic pain disorder- Primary Chronic pain syndrome Controlled type 2 diabetes mellitus with diabetic polyneuropathy, 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 (CMS/HCC) Encounter for immunization Essential hypertension (CMS/HCC) Unspecified essential hypertension Controlled type 2 diabetes mellitus with diabetic polyneuropathy, 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 (CMS/HCC)- Primary Chronic pain disorder Chronic pain syndrome Essential hypertension (CMS/HCC) Unspecified essential hypertension GERD without esophagitis Esophageal reflux Chronic pain disorder- Primary Chronic pain syndrome Controlled type 2 diabetes mellitus with diabetic polyneuropathy, 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 (CMS/HCC) Chronic pain disorder- Primary Chronic pain syndrome Screen for colon cancer Special screening for malignant neoplasms, colon Controlled type 2 diabetes mellitus with diabetic polyneuropathy, 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 (CMS/HCC) History of UTI Dysuria Medicare annual wellness visit, subsequent Chronic pain of right knee- Primary Controlled type 2 diabetes mellitus with diabetic polyneuropathy, 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 (CMS/HCC) Chronic pain disorder Chronic pain syndrome Chronic pain of right knee- Primary Controlled type 2 diabetes mellitus with diabetic polyneuropathy, 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 (CMS/HCC) Acute non-recurrent frontal sinusitis Anxiety Anxiety state, unspecified Preop examination Unspecified pre-operative examination Chronic pain disorder Chronic pain syndrome documented in this encounter [facility]* Diagnosis Chronic pain disorder- Primary Chronic pain syndrome Controlled type 2 diabetes mellitus with diabetic polyneuropathy, 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 (CMS/HCC) Encounter for immunization Essential hypertension (CMS/HCC) Unspecified essential hypertension Controlled type 2 diabetes mellitus with diabetic polyneuropathy, 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 (CMS/HCC)- Primary Chronic pain disorder Chronic pain syndrome Essential hypertension (CMS/HCC) Unspecified essential hypertension GERD without esophagitis Esophageal reflux Chronic pain disorder- Primary Chronic pain syndrome Controlled type 2 diabetes mellitus with diabetic polyneuropathy, 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 (CMS/HCC) Chronic pain disorder- Primary Chronic pain syndrome Screen for colon cancer Special screening for malignant neoplasms, colon Controlled type 2 diabetes mellitus with diabetic polyneuropathy, 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 (CMS/HCC) History of UTI Dysuria Medicare annual wellness visit, subsequent Chronic pain of right knee- Primary Controlled type 2 diabetes mellitus with diabetic polyneuropathy, 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 (CMS/HCC) Chronic pain disorder Chronic pain syndrome Chronic pain of right knee- Primary Controlled type 2 diabetes mellitus with diabetic polyneuropathy, 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 (CMS/HCC) Acute non-recurrent frontal sinusitis Anxiety Anxiety state, unspecified Preop examination Unspecified pre-operative examination Medicare annual wellness visit, subsequent- Primary Dysuria Essential hypertension (CMS/HCC) Unspecified essential hypertension Chronic pain of right knee Hospital discharge follow-up Other follow-up examination documented in this encounter [facility]History general [facility] - [facility] course Narrative No data available for this section [facility] No data available for this section [facility] Additional Instructions Continue current meds Follow-up with your private physician [facility] are [facility] Phone: Progress note No data available for this section [facility] Summary Purpose Family History Relationship Condition Age at Onset Recorded Date/T chris Not Specified Diabetes mellitus Unknown Coronary artery disease Unknown Alzheimer's disease Unknown Malignant neoplasm of breast Unknown Hypertension Unknown Relationship Condition Age at Onset Recorded Date/T chris Not Specified Diabetes mellitus Unknown Coronary artery disease Unknown Alzheimer's disease Unknown Malignant neoplasm of breast Unknown Hypertension Unknown brother Unknown father Unknown Not Specified Unknown Relationship Condition Age at Onset Recorded Date/T chris Not Specified Diabetes mellitus Unknown Coronary artery disease Unknown Alzheimer's disease Unknown Malignant neoplasm of breast Unknown Hypertension Unknown brother Unknown father Unknown mother Unknown Relationship Condition Age at Onset Recorded Date/T chris brother Unknown father Unknown Coronary artery disease Unknown Arthritis Unknown Malignant neoplasm of prostate Unknown mother Unknown Alzheimer's disease Unknown Diabetes mellitus Unknown Hypertension Unknown family member Malignant neoplasm of breast Unknown Advance Directives Advance Directive Response Recorded Date/ Time Advance [...] of right knee Osteoarthritis of right shoulder Chief Complaint Admit Date cough, congestion June 07, 2024 1:46pm OP SP RT KNEE PAIN July 23, 2024 3: 01pm Reason for Visit Admit Date Acute lower respiratory infection Novemb er 2023 1:46pm Osteoarthritis of left knee July 23, 2024 3:01pm Osteoarthritis of right knee July 3:01pm Pre-op exam July 23, 2024 3: 01pm Osteoarthritis of right shoulder July 23, 2024 3:01pm Chief Complaint Admit Date cough, congestion June 07, 2024 1:46pm OP SP RT KNEE PAIN July 23, 2024 3: 01pm Knee Pain August 22, 2024 1 2:55pm Chief Complaint Admit Date cough, congestion June 07, 2024 1:46pm OP SP RT KNEE PAIN July 23, 2024 3: 01pm Knee Pain August 22, 2024 1 2:55pm Knee Pain- PST August 26, 2024 3:49pm Chief Complaint Admit Date cough, congestion June 07, 2024 1:46pm OP SP RT KNEE PAIN July 23, 2024 3: 01pm Knee Pain August 22, 2024 1 2:55pm Knee Pain- PST August 26, 2024 3:49pm Pre-Op RTK September 01, 2024 1:04pm 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, right September 03, 2024 2:03pm H & P RIGHT TOTAL KNEE ARTHROPLASTY 09-09September 03, 2024 3:09pm Reason for Visit Admit Date Acute lower respiratory infection Novemb er 2023 1:46pm Osteoarthritis of left knee July 23, 2024 3:01pm Osteoarthritis of right knee July 3:01pm Pre-op exam July 23, 2024 3: 01pm Osteoarthritis of right shoulder July 23, 2024 3:01pm Osteoarthritis of left knee August 3:09pm Osteoarthritis of right knee September 032024 3:09pm Pre-op exam September 03, 2024 3:09pm Primary osteoarthritis of left knee Febr [email or web address] 3:09pm Primary osteoarthritis of right shoulder September 03, 2024 3:09pm Osteoarthritis of right shoulder uar y 2024 3:09pm Chief Complaint Admit Date OP SP RT KNEE PAIN July 23, 2024 3: 01pm Knee Pain August 22, 2024 1 2:55pm Knee Pain- PST August 26, 2024 3:49pm Pre-Op RTK September 01, 2024 1:04pm 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, right September 03, 2024 2:03pm H & P RIGHT TOTAL KNEE ARTHROPLASTY 09-09September 03, 2024 3:09pm Knee Pain September 09, 2024 5:51am Knee Pain September 09, 2024 7:17am Reason for Visit Admit Date Osteoarthritis of left knee July 23, 2024 3:01pm Osteoarthritis of right knee July 3:01pm Pre-op exam July 23, 2024 3: 01pm Osteoarthritis of right shoulder July 23, 2024 3:01pm Osteoarthritis of left knee August 3:09pm Osteoarthritis of right knee September 032024 3:09pm Pre-op exam September 03, 2024 3:09pm Primary osteoarthritis of left knee Febr [facility] 2024 3:09pm Primary osteoarthritis of right shoulder September 03, 2024 3:09pm Osteoarthritis of right shoulder Februar y 2024 3:09pm S/P total knee arthroplasty August 5:51am Chief Complaint Admit Date OP SP RT KNEE PAIN July 23, 2024 3: 01pm Knee Pain August 22, 2024 1 2:55pm Knee Pain- PST August 26, 2024 3:49pm Pre-Op RTK September 01, 2024 1:04pm 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, right September 03, 2024 2:03pm H & P RIGHT TOTAL KNEE ARTHROPLASTY 09-09September 03, 2024 3:09pm Knee Pain September 09, 2024 5:51am Knee Pain September 09, 2024 7:17am 2 weeks post op September 22, 2024 12: 54pm Reason for Visit Admit Date Osteoarthritis of left knee July 23, 2024 3:01pm Osteoarthritis of right knee July 3:01pm Pre-op exam July 23, 2024 3: 01pm Osteoarthritis of right shoulder July 23, 2024 3:01pm Osteoarthritis of left knee August 3:09pm Osteoarthritis of right knee September 032024 3:09pm Pre-op exam September 03, 2024 3:09pm Primary osteoarthritis of left knee Febr uary 2024 3:09pm Primary osteoarthritis of right shoulder September 03, 2024 3:09pm Osteoarthritis of right shoulder Februar y 2024 3:09pm S/P total knee arthroplasty August 5:51am Primary osteoarthritis of right knee Mar 2024 12:54pm Status post total right knee replacement September 22, 2024 12:54pm Additional Source Comments INFORMATION SOURCE (unrecogn ized section and content) DATE CREATED AUTHOR 01/03/2018 [facility] DATE CREATED AUTHOR AUTHOR'S ORGANIZ ATION 01/09/[address] [facility] DATE CREATED AUTHOR AUTHOR'S ORGANIZ ATION 10/03/2021 [facility] DATE CREATED AUTHOR AUTHOR'S ORGANIZ ATION 02/25/2022 [facility] DATE CREATED AUTHOR AUTHOR'S ORGANIZ ATION 10/25/2023 [facility] DATE CREATED AUTHOR AUTHOR'S ORGANIZ ATION 09/23/2024 [facility] DATE CREATED AUTHOR AUTHOR'S ORGANIZ ATION 10/17/2024 [facility] dical Specialists EPIC REASON FOR VISIT (unrecogniz ed section and content) Reason Comments Diabetes Edema Reason Comments Med Refill Reason Comments Immunizations Patient received flu vaccine in office Diabetes A1C check and Retina lata Reason Comments Follow-up Nailcare Reason Onset Date Comments Med Refill 06/02/2024 Reason Comments Follow-up Reason Comments Med Refill Lisinopril, escitalo pram, famotidine, simvastatin, metformin, alendronate Reason Onset Date Comments Med Refill 08/26/2024 Reason Onset Date Comments Med Refill 08/25/2024 Reason Comments Medicare Annual Wellness Visit [facility] Follow-[facility] Follow up from [facility] - [facility] completed TCM Care Teams (unrecognized sec tion and content) Team Status: Inactive Member Role Status Dates Aisha Ragland PA-C Primary Care Provider Active João Soto DO Attending Provider Active Team Status: Active Member Role Status Dates Aisha Ragland PA-C Primary Care Provider Active Team Status: Inactive Member Role Status Dates Aisha Ragland PA-C Primary Care Provider Active Bhaskar Hdz APRN Emergency Provider Active Wastewater Treatment Operator Relationship Specialty Start Date End Date Zuri Hannah MD [address] [place] [address] PCP - [facility] 07/16/20 Zuri Hannah MD [address] [place] [address] PCP - General Family Medicine 12/25/22 Team Status: Inactive Member Role Status Dates Aisha Ragland PA-C Primary Care Provider Active Start: December 19, 2023 End: December 19, 2023 João Soto DO Attending Provider Active S tart: December 19, 2023 End: December 19, 2023 Team Status: Inactive Member Role Status Dates Aisha Ragland PA-C Primary Care Provider Active Start: March 10, 2024 End: March 10, 2024 Jerry Boss MD Emergency Provider Active Star t: March 10, 2024 End: March 10, 2024 Team Status: Inactive Member Role Status Dates Aisha Ragland PA-C Primary Care Provider Active Start: April 23, 2024 End: April 23, 2024 CHARLINE Wilson Attending Provider Active Start: April 23, 2024 End: April 23, 2024 Team Status: Active Member Role Status Dates Aisha Ragland PA-C Primary Care Provider Active Start: April 23, 2024 CHARLINE Wilson Attending Provider Active Start: April 23, 2024 Wastewater Treatment Operator Relationship Specialty Start Date End Date Zuri Hannah MD [address] [place] [address] PCP - [facility] 07/16/20 Zuri Hannah MD [address] [place] [address] PCP - General Family Medicine 09/17/23 Wastewater Treatment Operator Relationship Specialty Start Date End Date Zuri Hannah MD [address] [place] [address] PCP - [facility] 07/16/20 Zuri Hannah MD [address] [place] [address] PCP - General Family Medicine 09/17/23 Wastewater Treatment Operator Relationship Specialty Start Date End Date Zuri Hannah MD [address] [place] [address] PCP - [facility] 07/16/20 Zuri Hannah MD [address] [place] [address] PCP - General Family Medicine 09/17/23 Wastewater Treatment Operator Relationship Specialty Start Date End Date Zuri Hannah MD [address] [place] [address] PCP - [facility] 07/16/20 Zuri Hannah MD [address] [place] [address] PCP - General Family Medicine 09/17/23 Wastewater Treatment Operator Relationship Specialty Start Date End Date Zuri Hannah MD [address] [place] [address] PCP - [facility] 07/16/20 Zuri Hannah MD [address] [place] [address] PCP - General Family Medicine 09/17/23 Wastewater Treatment Operator Relationship Specialty Start Date End Date Zuri Hannah MD [address] [place] [address] PCP - [facility] 07/16/20 Zuri Hannah MD [address] [place] [address] PCP - General [facility] 09/17/23 Wastewater Treatment Operator Relationship Specialty Start Date End Date Zuri Hannah MD [address] [place] [address] PCP - [facility] 07/16/20 Zuri Hannah MD [address] [place] [address] PCP - General [facility] 09/17/23 Wastewater Treatment Operator Relationship Specialty Start Date End Date Zuri Hannah MD [address] [place] [address] PCP - [facility] 07/16/20 Zuri Hannah MD [address] [place] [address] PCP - General Family Medicine 09/17/23 Wastewater Treatment Operator Relationship Specialty Start Date End Date Zuri Hannha MD [address] [place] [address] PCP - [facility] 07/16/20 Zuri Hannah MD [address] [place] [address] PCP - General Family Medicine 09/17/23 Wastewater Treatment Operator Relationship Specialty Start Date End Date Zuri Hannah MD [address] [place] [address] PCP - [facility] 07/16/20 Zuri Hannah MD [address] [place] [address] PCP - General Family Medicine 09/17/23 Team Status: Inactive Member Role Status Dates Aisha Ragland PA-C Primary Care Provider Active Start: June 07, 2024 End: June 07, 2024 Sada Anne APRN Attending Provider Active Start: June 07, 2024 End: June 07, 2024 Team Status: Inactive Member Role Status Dates Aisha Ragland PA-C Primary Care Provider Active Start: July 23, 2024 End: July 23, 2024 João Soto DO Attending Provider Active S tart: July 23, 2024 End: July 23, 2024 Wastewater Treatment Operator Relationship Specialty Start Date End Date Zuri Hannah MD [address] [place] [address] PCP - [facility] 07/16/20 Zuri Hannah MD [address] [place] [address] PCP - General Family Medicine 09/17/23 Wastewater Treatment Operator Relationship Specialty Start Date End Date Zuri Hannah MD [address] [place] [address] PCP - [facility] 07/16/20 Zuri Hannah MD [address] [place] [address] PCP - General Family Medicine 09/17/23 Team Status: Inactive Member Role Status Dates Aisha Ragland PA-C Primary Care Provider Active Start: August 22, 2024 End: August 22, 2024 João Soto DO Attending Provider Active S tart: August 22, 2024 End: August 22, 2024 Wastewater Treatment Operator Relationship Specialty Start Date End Date Zuri Hannah MD [address] [place] [address] PCP - Devoted 07/16/20 Zuri Hannah MD [address] [place] [address] PCP - General Family Medicine 09/17/23 Team Status: Inactive Member Role Status Dates Aisha Ragland PA-C Primary Care Provider Active Start: August 26, 2024 End: August 26, 2024 João Soto DO Attending Provider Active S tart: August 26, 2024 End: August 26, 2024 Wastewater Treatment Operator Relationship Specialty Start Date End Date Zuri Hannah MD [address] [place] [id number] PCP - Devoted 07/16/20 Zuri Hannah MD [address] [place] [address] PCP - General Family Medicine 09/17/23 Team Status: Active Member Role Status Dates Aisha Ragland PA-C Primary Care Provider Active Start: September 01, 2024 João Soto DO Attending Provider Active S tart: September 01, 2024 Team Status: Active Member Role Status Dates Aisha Ragland PA-C Primary Care Provider Active Start: September 03, 2024 João Soto DO Attending Provider Active S tart: September 03, 2024 Team Status: Inactive Member Role Status Dates Aisha Ragland PA-C Primary Care Provider Active Start: September 03, 2024 End: September 03, 2024 João Soto DO Attending Provider Active S tart: September 03, 2024 End: September 03, 2024 Team Status: Inactive Member Role Status Dates Aisha Ragland PA-C Primary Care Provider Active Start: September 09, 2024 End: September 11, 2024 João Soto DO Attending Provider Active S tart: September 09, 2024 End: September 11, 2024 Team Status: Active Member Role Status Dates Aisha Ragland PA-C Primary Care Provider Active Start: September 09, 2024 João Soto DO Attending Provider, Other Provider Active Start: September 09, 2024 Team Status: Inactive Member Role Status Dates iAsha Ragland PA-C Primary Care Provider Active Start: September 22, 2024 End: September 22, 2024 João Soto DO Attending Provider Active S tart: September 22, 2024 End: September 22, 2024 Wastewater Treatment Operator Relationship Specialty Start Date End Date Zuri Hannah MD [address] [place] [address] PCP - Devoted 07/16/20 Zuri Hannah MD [address] [place] [address] PCP - General Family Medicine 09/17/23 Goals (unrecognized section and content) Goals may [...] BE BASED ON THE PRIMARY CLINICAL RECORDS. [facility] [employer] [facility]. provides no warranty or guarantee of the accuracy or completeness of information in this document.
[2024-10-25 12:22] LABS: Hematocrit 33.1 % (36.0-48.0); Hemoglobin 10.6 g/dL (12.0-16.0); Mean Corpuscular Hemoglobin 29.4 pg (26.7-34.0); Mean Corpuscular Volume 91.9 fL (81.0-99.0); Mean Platelet Volume 10.5 fL (9.5-13.5); Platelet Count 228 10^3/uL (150-450); Red Cell Distribution Width 13.6 % (11.0-15.0); White Blood Count 3.8 10^3/uL (4.0-11.0)
[2024-10-25 12:54] LABS: Eosinophils Absolute Manual 0.03 10^3/uL (0.00-0.70); Lymphocytes Absolute Manual 0.57 10^3/uL (1.20-3.80); Monocytes Absolute Manual 0.45 10^3/uL (0.30-0.80); Segmented Neut Absolute Manual 2.73 10^3/uL (1.4-6.5)
[2024-10-25 12:55] LABS: Anisocytosis 1+
[2024-10-25 12:58] LABS: Alanine Aminotransferase 18 U/L (14-59); Albumin Globulin Ratio 1.5; Albumin Level 3.4 g/dL (3.4-5.0); Alkaline Phosphatase 74 U/L (46-116); Anion Gap 7.2; Aspartate Amino Transferase 18 U/L (15-37); Bilirubin Total 0.4 mg/dL (0.2-1.0); Calcium 8.8 mg/dL (8.5-10.1); Carbon Dioxide 30.7 mmol/L (21.0-32.0); Chloride 103 mmol/L (98-107); Estimated GFR (African America >60 (>=60 mL/min/1.73m^2); Estimated GFR (Non-African Ame >60 (>=60 mL/min/1.73m^2); Globulin 2.3 g/dL; Glucose 103 mg/dL (74-106); Potassium 3.9 mmol/L (3.5-5.1); Sodium 137 mmol/L (136-145); Total Protein 5.7 g/dL (6.4-8.2)
== END 2024-10-25 12:11 | disposition home or self-care (01) ==
LOC: LAB 12:10
PROVIDERS: PCP Student in an Organized Health Care Education/Training Program; Visit Provider Physician Assistant
DX: R60.1 Generalized edema (principal); I10 Essential (primary) hypertension; E11.42 Type 2 diabetes mellitus with diabetic polyneuropathy
CPT/HCPCS: 36415; 80053; 85007; 85027

== ENCOUNTER 2025-03-04 18:03 | Emergency (ER) | payer OTHER, MEDICARE, SELFPAY ==
[2025-03-04] VITALS (14 sets, daily range): BP systolic 130–152; BP diastolic 63–75; PULSE 88–101; TEMP 37.4–39.3; O2SAT 95–96; BMI 28.7
--- OUTSIDE RECORDS SUMMARY | 2025-03-04 19:19 | XMS_ITS | CCD ---
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 Name Role Phone PAULA, WAYNE P [...] Care Provider DO João Soto Attending Provider [phone] Lisa Castillo Unavailable ISELA Ragland Primary Care Provider GERARDO Hdz Emergency Provider [phone] Zuri Hannah MD Unavailable Zuri Hannah MD Primary Care Provider Aisha RAGLAND Primary Care Physician Kaci Morton Admitting Unavailable Kaci Morton Attending Unavailable Dillon Hurtado Attending Unavailable Aisha RAGLAND Referring Unavailable ISELA Morton Admitting Unavailabl e Kaci Morton Attending Unavailable ISELA Ragland Primary Care Provider Boss, MD Adam Emergency Provider [phone] ALINA Castillo-C Lisa Lei Attending Provider [place] CHESTER, Zuri Song Primary Care Provider Aisha Ragland PA-C Primary Care Provider João Soto DO Attending Provider Aisha Ragland PA-C Primary Care Provider João Soto DO Attending Provider Zuri Hannah MD Unavailable Zuri Hannah MD Primary Care Provider Aisha Ragland PA-C Primary Care Provider João Soto DO Attending Provider [phone] Aisha Ragland PA-C Primary Care Provider João Soto DO Attending Provider Aisha Ragland PA-C Primary Care Provider Amanda Cabral Attending Provider João Soto DO Attending Provider [phone] TABITHA VALENTINO Attending UnavailAISHA Jc Attending Unavailable AISHA RAGLAND Attending Unavailable AISHA RAGLAND Attending Unavailable TABITHA VALENTINO Attending Unavailabl e AISHA RAGLAND Attending Unavailable AISHA RAGLAND Attending Unavailable TABITHA VALENTINO Attending Unavailabl e AISHA RAGLAND Attending Unavailable TABITHA VALENTINO Attending Unavailmerlene e AISHA RAGLAND Attending Unavailable Aisha Ragland PA-C Primary Care Provider [phone] João Soto DO Attending Provider Amanda Roberts APRN Attending Provider Aisha Ragland Primary Care Unavailable Jerry Boss Admitting Unavailable Jerry Boss Attending Unavailable Alok, João A Admitting Unavailable Meagan, Aisha J Primary Care Unavailable Alok, João A Attending Unavailable Meagan, Aisha J Primary Care Unavailable [place], Amanda Admitting Unavailable Hackenburg, Amanda Attending Unavailable Ben Bolt, Lisa L Admitting Unavailable Jonathan, Lisa L Attending Unavailable Meagan, Aisha J Primary Care Unavailable Alok, João A Admitting Unavailable Meagan, Aisha J Primary Care Unavailable Alok, João A Attending Unavailable Alok, João A Attending Unavailable Alok, João A Admitting Unavailable Meagan, Aisha J Primary Care Unavailable Alok, João A Admitting Unavailable Meagan, Aisha J Primary Care Unavailable Alok, João A Attending Unavailable Alok, João A Admitting Unavailable Meagan, Aisha J Primary Care Unavailable Alok, João A Attending Unavailable Alok, João A Attending Unavailable Meagan, Aisha J Primary Care Unavailable Alok, João A Admitting Unavailable Allergies Allergy Classification Reported Allergen(s) Allergy Type Date of Onset Reaction(s) Facility (1 source) Bee; Translations: [BEES] Propensity to adverse reactions (disorder) 6 AOF [facility] Repository (19 sources) tioconazole; Translations: [TIOCONAZOLE] Drug Allergy 6 AOF, Itching, Itching, rash [facility] Repository (15 sources) Bee/Wasp/Ant venom; Translations: [Bee Stings] Propensity to adverse reactions anaphylaxis, Unknown (qualifier value) [facility] (11 sources) Miconazole Drug Allergy rash [employer] Other (20 sources) traMADol; Translations: [tramadol] Drug Allergy 1 Unknown, Unknown (qualifier value) [facility] (1 source) Bee pollen Drug allergy (disorder) 3 [facility] Repository (1 source) Miconazole Drug Allergy 3 [facility] Repository (3 sources) venom-honey bee Allergy to substance [address] [facility] (20 sources) Bee pollen Allergy to substance 3 Unknown [facility] Work Phone: (20 sources) Honey bee venom Allergy to substance 3 Shortness of breath [facility] (20 sources) Miconazole; Translations: [miconazole topical] Drug Allergy 3 Unknown, Unknown (qualifier value) [facility] (3 sources) Latex; Translations: [Latex] Drug allergy Other (qualifier value) [facility] (1 source) Miconazole; Translations: [Miconazole Nitrate] Drug Allergy [facility] Repository (16 sources) bee venom protein (honey bee); Translations: [bee venom protein (honey bee)] Allergy to substance [address] [facility] (1 source) traMADol Drug Allergy [address] [facility] Repository Medications Current Medications Medication Drug Class(es) Dates Sig (Normalized) Sig (Original) acetaminophen 500 mg oral tablet (20 sources) Start: 09-11-2024 take 2 tablets by mouth every eight hours Acetaminophen 500 mg Tablet Active 1000 MG PO Q8H 0 September 11, 2024 1:00am Complies with drug therapy Start: 05-19-2019 End: 07-15-2023 take 1 tablet [...] oral tablet (20 sources) Opioid Agonist Start: 02-26-2025 End: 02-27-2025 take 1 tablet by mouth in the morning, then take 1 tablet by mouth in the evening, then take 1 tablet by mouth at bedtime HYDROcodone-acetaminophen (Bruce) 5-325 MG tablet Indications: Chronic pain disorder Take 1 tablet by mouth in the morning and 1 tablet in the evening and 1 tablet before bedtime. 90 tablet 02/27/2025 Active Start: 01-29-2025 take 1 tablet by giuseppe th in the morning, then take 1 tablet by mouth in the evening, then take 1 tablet by mouth at bedtime HYDROcodone-acetaminophen (Bruce) 5-325 MG tablet Indications: Chronic pain disorder Take 1 tablet by mouth in the morning and 1 tablet in the evening and 1 tablet before bedtime. 90 tablet 01/29/2025 Active Start: 12-01-2024 take 1 tablet by giuseppe th in the morning, then take 1 tablet by mouth in the evening, then take 1 tablet by mouth at bedtime HYDROcodone-acetaminophen (Bruce) 5-325 MG tablet Indications: Chronic pain disorder Take 1 tablet by mouth in the morning and 1 tablet in the evening and 1 tablet before bedtime. 90 tablet 01/01/2025 Active Start: 07-28-2024 End: 10-28-2024 take 1 tablet by mouth in the morning, then take 1 tablet by mouth in the evening, then take 1 tablet by mouth at bedtime HYDROcodone-acetaminophen (Bruce) 5-325 MG tablet Indications: Chronic pain disorder Take 1 tablet by mouth in the morning and 1 tablet in the evening and 1 tablet before bedtime. 90 tablet 10/28/2024 Active Start: 07-01-2024 take 1 tablet by giuseppe th in the morning, then take 1 tablet by mouth in the evening, then take 1 tablet by mouth at bedtime HYDROcodone-acetaminophen (Bruce) 5-325 MG tablet Indications: Chronic pain disorder Take 1 tablet by mouth in the morning and 1 tablet in the evening and 1 tablet before bedtime. 90 tablet 07/01/2024 Active Start: 04-07-2024 End: 06-02-2024 take 1 tablet by mouth in the morning, then take 1 tablet by mouth in the evening, then take 1 tablet by mouth at bedtime HYDROcodone-acetaminophen (Bruce) 5-325 MG tablet Indications: Chronic pain disorder [...] tablet by mouth in the morning HYDROcodone-acetaminophen (Bruce) 5-325 MG tablet Indications: Chronic pain disorder [...] 9:50am alendronic acid 35 mg oral tablet (20 sources) Bisphosphonate Start: 03-27-2023 alendronate (F osamax) [...] MG PO Daily August 22, 2024 1:00am Complies with drug therapy Start: 04-28-2019 End: 05-20-2019 take 1 tablet by mouth once daily Ascorbic Acid (Vitamin C) (Vitamin C) 500 mg Tablet Discontinued 500 MG PO Daily 0 April 28, 2019 12:00am May 20, 2019 9:50am Ascorbic Acid (V ITAMIN C PO) Take by mouth Active atenolol 25 mg oral tablet (20 sources) beta-Adrenergic Panchito Start: 02-08-2025 take 0.5 tablet by mouth once daily atenolol (Tenormin) 25 MG tablet Indications: Essential hypertension Take 1/2 (one-half) tablet by mouth once daily 45 tablet 3 02/08/2025 Active Start: 08-22-2024 Atenolol 25 mg tablet Active 12.5 MG PO Daily August 22, 2024 1:00am Complies with drug therapy Start: 01-04-2024 End: 01-03-2025 take 0.5 tablet by mouth once daily atenolol (Tenormin) 25 MG tablet Indications: Essential hypertension Take 0.5 tablets (12.5 mg) by mouth Daily Take 12.5mg by mouth daily 45 tablet 3 01/04/2024 Active Start: 06-18-2020 take 1 tablet by [...] TAB PO Daily August 22, 2024 1:00am Complies with drug therapy Start: 04-05-2020 End: 07-15-2023 take 1 tablet by mouth twice daily Calcium Carbonate-Vitamin D3 (Oyster Shell Calcium-Vit D3) 500 mg(1,250mg) -200 unit tablet Discontinued 1 TAB PO Twice daily April 05, 2020 7:53pm July 15, 2023 4:00pm Start: 04-28-2019 End: 04-05-2020 take 1 tablet by mouth once at mealtime Calcium Carbonate-Vitamin D3 (Oyster Shell Calcium-Vit D3) 500 mg(1,250mg) -200 unit Tablet Discontinued 1 TAB PO 3x/Day with meals May 19, 2019 1:00am April 05, 2020 7:54pm carbamide peroxide 65 mg/ml otic solution (2 sources) Start: 12-21-2024 Carbamide Adriana xide (Debrox) 6.5 % drops Active 5 DROPS EAR-BOTH Daily 15 December 21, 2024 12:00am Complies with drug therapy elderberry fruit 200 mg oral capsule (10 sources) Start: 08-22-2024 take 1 capsule by mouth once daily Elderberry Fruit 200 mg capsule Active 500 MG PO Daily August 22, 2024 1:00am Complies with drug therapy Elderberry preparation (20 sources) Start: 10-17-2023 elderberry Ref ill(s) 0 Start Date: 10/17/23 Status: Ordered Elderberry 575 M G/5ML syrup Active Elderberry 575 M G/5ML syrup as [...] PO Twice daily July 15, 2023 1:00am Complies with drug therapy Start: 07-15-2023 Escitalopram O xalate Active MG TABLET July 15, 2023 1:00am Start: 07-06-2023 End: 07-05-2024 take 1 tablet by mouth at bedtime escitalopram (Lexapro) 20 MG tablet Indications: Reactive depression Take 1 tablet (20 mg) by mouth at bedtime 90 tablet 3 05/26/2024 Active famotidine 20 mg oral tablet (20 sources) Histamine-2 Receptor Antagonist Start: 04-24-2019 End: 01-13-2025 take 1 tablet by mouth in the morning famotidine (Pepcid) 20 MG tablet Indications: GERD without esophagitis Take 1 tablet (20 mg) by mouth in the morning. 90 tablet 3 01/13/2025 Active ferrous gluconate 256 mg oral tablet (1 source) Start: 06-18-2020 take 2 tablets by mouth once daily ferrous gluconate 256 mg (28 mg elemental iron) oral tablet 2, Oral, Daily, # 100 tab(s), Refills(s) 0 Start Date: 06/18/20 Status: Ordered Fish Oils (20 sources) omega-3 (Fish Oi l) 1200 MG capsule 1 capsule 1 (one) time each day at the same time Active omega-3 (Fish Oi l) 1200 MG [...] PO Twice daily June 07, 2024 1:00am Complies with drug therapy Start: 10-17-2023 furosemide Ref ills(s) 0 Start Date: 10/17/23 Status: Ordered Start: 06-25-2023 End: 06-26-2024 take 1 tablet by mouth once daily furosemide (Lasix) 20 MG tablet Indications: Essential hypertension , Controlled type 2 diabetes mellitus with diabetic polyneuropathy, without long-term current use of insulin (HCC) TAKE 1 TABLET BY MOUTH EVERY DAY 90 tablet 3 06/26/2024 Active HYDROcodone (2 sources) Opioid Agonist Start: 10-17-2023 hydrocodone Refills(s) 0 Start Date: 10/17/23 Status: Ordered lidocaine 0.05 mg/mg medicated patch (20 sources) Antiarrhythmic, Amide Local Anesthetic Start: 01-05-2025 apply 1 dose transdermal route once daily Lidocaine 5 % adhesive patch,medicated Active 0 .ROUTE .COMPLEX January 05, 2025 9:09am APPLY 1 PATCH TOPICALLY DAILY LEAVE ON MOST PAINFUL AREA FOR UP TO 12 HOURS Complies with drug therapy Start: 09-17-2023 End: 10-17-2023 apply 1 dose topically once daily Lidocaine Discontinued 2 PATCH TOPICAL Daily September 17, 2023 1:00am October 17, 2023 8:04am leave on most painful area for up to 12 hrs Start: 04-06-2021 End: 01-05-2025 apply 1 dose topically once daily Lidocaine [...] a day for 30 days Mar, Active lisinopril 20 mg oral tablet (20 sources) Angiotensin Converting Enzyme Inhibitor Start: 06-07-2024 take 5 mg by mouth twice daily Lisinopril 20 mg tablet Active 5 MG PO Twice daily June 07, 2024 1:00am Complies with drug therapy Start: 06-07-2024 take 1 tablet by giuseppe th once daily Lisinopril 20 mg tablet Active 20 MG PO Daily June 07, 2024 12:00am Start: 01-04-2024 take 0.25 tablet by mouth twice daily lisinopril 20 MG tablet Indications: Essential hypertension TAKE 1/4 TABLET BY MOUTH TWICE DAILY [...] tablet (20 sources) Biguanide Start: 10-09-2023 End: 10-28-2024 take 1 tablet by mouth once daily metFORMIN (Glucophage) 500 MG tablet Indications: Controlled type 2 diabetes mellitus with diabetic polyneuropathy, without long-term current use of insulin (HCC) Take 1 tablet (500 mg) by mouth Daily 90 tablet 3 10/28/2024 Active Start: 06-18-2020 take 0.5 tablet by [...] day at the same time. 0 Active [place] 2-Asv-Rvi-Fish Oil (Fish Oil) 1,200 (144-216) mg capsule (11 sources) Start: 06-07-2024 take 1 capsule by mouth once daily [place] 7-Vkj-Ajb-Fish Oil (Fish Oil) 1,200 (144-216) mg capsule Active 1 CAP PO Daily June 07, 2024 1:00am Complies with drug therapy Start: 06-07-2024 take 1 capsule by mo uth once daily [place] 4-Rvl-Ehl-Fish Oil (Fish Oil) 1,200 (144-216) mg capsule Active 1 CAP PO Daily June 07, 2024 1:00am Start: 06-07-2024 take 1 capsule by mo uth once daily [place] 0-Kfq-Eib-Fish Oil (Fish Oil) 1,200 (144-216) mg capsule Active 1 CAP PO Daily June 07, 2024 12:00am Start: 06-07-2024 [place] 3-Dha-Ep a-Fish Oil (Fish Oil) 1,200 (144-216) mg capsule Active CAP PO June 07, 2024 12:00am phenazopyridine hydrochloride 100 mg oral tablet (1 source) Start: 10-01-2023 End: 10-04-2023 take 1 tablet by mouth three times daily Pyridium 100 mg Tab 100 mg = 1 tab(s), Oral, TID, X 3 day(s), # 9 tab(s), Refills(s) 0, Pharmacy: [facility]/pharmacy #[id number], 175, cm, 10/01/23 5:36:00 EDT, Height/Length Dosing, 55, kg, 10/01/23 5:36:00 EDT, Weight Dosing Start Date: 10/01/23 Stop Date: 10/04/23 Status: Ordered simvastatin 40 mg oral tablet (20 sources) HMG-CoA Reductase Inhibitor Start: 04-05-2020 End: 01-02-2026 take 1 tablet by mouth once daily simvastatin (Zocor) 40 MG tablet Indications: Hypercholesteremia , Essential hypertension Take 1 tablet (40 mg) by mouth 1 (one) time each day at the same time 90 tablet 3 01/02/2025 01/02/2026 Active Start: 04-05-2020 Simvastatin 40 mg tablet [...] 9:50am warfarin sodium 4 mg oral tablet (18 sources) Vitamin K Antagonist Start: 06-18-2020 warfarin [...] q8hr, # 12 tab(s), Refills(s) 0, Pharmacy: [id number], 144, cm, 07/22/21 18:14:00 EST, Height/Length Dosing, 55.9, kg, 07/22/21 18:14:00 EST, Weight Dosing Start Date: 07/22/21 Status: Ordered Completed/Discontinued Medications Medication Drug Class(es) Dates Sig (Normalized) Sig (Original) aspirin 81 mg delayed release oral tablet (20 sources) Platelet Aggregation Inhibitor, Nonsteroidal Anti-inflammatory Drug Start: 09-11-2024 End: 01-26-2025 take 1 tablet by mouth twice daily Aspirin 81 mg Tablet,Delayed Release (Dr/Ec) Discontinued 81 MG PO Twice daily 0 September 11, 2024 1:00am January 26, 2025 1:19pm Start: 06-18-2020 aspirin 81 mg Chew Tab [...] 1 tablet Orally Once a day Active benzonatate 200 mg oral capsule (20 sources) Non-narcotic Antitussive Start: 06-18-2020 End: 08-22-2024 take 1 capsule by mouth three times daily as needed for cough Benzonatate 200 mg capsule Discontinued 200 MG PO Three times daily as needed for cough 14 05June 07, 2024 1:00am August 22, 2024 2:52pm Calcium Carbonate-Vitamin D3 (Oyster Shell Calcium-Vit D3) 500 mg(1,250mg) -200 unit tablet (15 sources) Start: 04-05-2020 End: 07-15-2023 take 1 [...] 2023 3:00pm castor oil 0.788 mg/mg / bolivian balsam 0.087 mg/mg topical ointment (17 sources) Standardized Chemical Allergen Start: 05-19-2019 End: 04-05-2020 Balsam [place] Oil (Venelex) Ointment Discontinued 1 APPLIC TOPICAL Twice daily as needed for Skin Irritation 0 May 19, 2019 1:00am April 05, 2020 7:50pm celecoxib 100 mg oral capsule (20 sources) Nonsteroidal Anti-inflammatory Drug Start: 10-17-2023 CeleBREX 100 mg C ap Refills(s) 0 Start Date: 10/17/23 Status: Ordered Start: 10-10-2023 End: 09-12-2024 take 1 capsule by mouth twice daily at mealtime Celecoxib 100 mg capsule Discontinued 0 .ROUTE .COMPLEX 60 February 21, 2024 11:51am September 12, 2024 9:56am TAKE 1 CAPSULE BY MOUTH TWICE A DAY WITH FOOD Start: 07-15-2023 End: 10-10-2023 take 1 capsule by mouth twice daily Celecoxib 100 mg capsule Discontinued 100 MG PO Twice daily 60 October 08, 2023 1:00pm October 10, 2023 10:17am Start: 07-15-2023 End: 10-08-2023 Celecoxib Discontinued MG De dannyber 2022 1:00am October 08, 2023 1:01pm Start: 02-08-2022 take 1 capsule by [facility] every twelve hours CeleBREX 100 MG 1 capsule with food Orally Twice a day for 30 days Jan, Active CeleBREX 100 MG capsule 1 (one) time each day at the same time Active cephalexin 500 mg oral capsule (19 sources) Cephalosporin Antibacterial Start: 12-21-2024 End: 01-26-2025 take 1 capsule by mouth in the morning cephalexin (Keflex) 500 MG capsule Indications: Bronchitis Take 1 capsule (500 mg) by mouth in the morning and 1 capsule (500 mg) before bedtime. Do all this for 10 days. 20 capsule 01/13/2025 01/23/2025 Start: 08-21-2024 End: 09-09-2024 take 1 capsule by mouth twice daily Cephalexin 500 mg capsule Discontinued 500 MG PO Twice daily August 22, 2024 1:00am September 09, 2024 7:25am Start: 10-01-2023 End: 10-08-2023 take 1 capsule by mouth every twelve hours Keflex 500 mg Cap 500 mg = 1 cap(s), Oral, q12hr, X 7 day(s), # 14 cap(s), Refills(s) 0, Pharmacy: [facility]/pharmacy #[id number], 175, cm, 10/01/23 5:36:00 EDT, [...] 19, 2019 1:00am April 05, 2020 7:54pm doxycycline hyclate 100 mg oral tablet (17 sources) Tetracycline-class Drug Start: 09-11-2024 End: 12-21-2024 take 1 tablet by mouth twice daily Doxycycline Hyclate 100 mg Tablet Discontinued 100 MG PO Twice daily 0 September 11, 2024 1:00am December 21, 2024 11:37am Start: 06-07-2024 End: 07-23-2024 take 1 capsule by mouth twice daily Doxycycline Hyclate 100 mg capsule Discontinued 100 MG PO Twice daily 14 June 07, 2024 1:00am July 23, 2024 4:14pm ezetimibe 10 mg oral tablet (20 sources) [...] (Dr/Ec) Discontinued 324 MG PO Twice daily May 19, 2019 1:00am April 05, 2020 7:54pm lanolin 0.157 mg/mg / menthol 0.0044 mg/mg / petrolatum 0.24 mg/mg / zinc oxide 0.206 mg/mg topical ointment (2 sources) End: 08-14-2023 Menthol-Zinc Oxide (Calmoseptine) 0.44-20.6 % ointment as directed Externally 0 08/14/2023 Discontinued Lidocaine 5 % adhesive patch,medicated (10 sources) Start: 09-17-2023 End: 10-17-2023 apply 1 [...] Active magnesium hydroxide 80 mg/ml oral suspension (17 sources) Start: 04-28-2019 End: 05-20-2019 take 1 mL by mouth once daily as needed for constipation Magnesium Hydroxide (Milk Of Magnesia) 400 mg/5 mL Suspension Discontinued 30 ML PO Daily as needed for Constipation 0 April 28, 2019 12:00am May 20, 2019 9:50am metoprolol tartrate 25 mg oral tablet (17 sources) beta-Adrenergic Panchito Start: 05-19-2019 End: 04-05-2020 take 1 tablet by mouth twice daily Metoprolol Tartrate 25 mg Tablet Discontinued 25 MG PO Twice daily May 19, 2019 1:00am April 05, 2020 7:52pm omeprazole 20 mg delayed release oral capsule (17 sources) Proton Pump Inhibitor Start: 05-19-2019 End: 04-05-2020 take 2 capsules by mouth once daily Omeprazole 20 mg Capsule,Delayed Release(Dr/Ec) Discontinued 40 MG PO Daily May 19, 2019 1:00am April 05, 2020 7:53pm Start: 05-19-2019 End: 04-05-2020 take 40 mg by mouth once daily Omeprazole Discontinued 40 MG PO Daily May 19, 2019 1:00am April 05, 2020 7:53pm ondansetron 4 mg disintegrating oral tablet (17 sources) Serotonin-3 Receptor Antagonist Start: 05-19-2019 End: 04-05-2020 take 1 tablet by mouth every four hours as needed for nausea and vomiting Ondansetron 4 mg Tablet,Disintegrating Discontinued 4 MG PO Every 4 hours as needed for Nausea And Vomiting May 19, 2019 1:00am April 05, 2020 7:53pm oxyCODONE hydrochloride 5 mg oral tablet (20 sources) Opioid Agonist Start: 09-21-2024 End: 12-01-2024 take 1 tablet by mouth every four hours as needed for pain Oxycodone 5 mg tablet Discontinued 5 MG PO Q4H as needed for Pain 42 September 22, 2024 October 13, 2024 1:49pm dispense 42 (forty-two) tablets diagnosis Z96.659 Start: 09-11-2024 End: 09-11-2024 take 1 tablet [...] as needed for Pain 42 7 September 11, 2024 September 22, 2024 1:25pm [...] 4 hours as needed for Pain 0 7 May 19, 2019 April 05, 2020 7:53pm Start: 05-19-2019 End: 04-05-2020 take 10 mg by mouth every four hours Oxycodone Discontinued 10 MG PO Every 4 hours 0 May 19, 2019 April 05, 2020 7:53pm polyethylene glycol 3350 76763 mg powder for oral solution (17 sources) Osmotic Laxative Start: 05-19-2019 End: 07-15-2023 Polyethylene Glycol 3350 (Miralax) 17 gram Powder In Packet Discontinued 17 GM PO Daily as needed for Constipation 30 May 19, 2019 1:00am July 15, 2023 4:00pm rivaroxaban 15 mg oral tablet (20 sources) Factor Xa Inhibitor Start: 05-19-2019 End: 05-31-2020 take 1 tablet by mouth twice daily at mealtime Rivaroxaban (Xarelto) 15 mg tablet Discontinued 15 MG PO Twice daily 42 April 05, 2020 12:00am May 31, 2020 9:19am must administer with a meal/food sennosides, snf 8.6 mg oral tablet (17 sources) Start: 05-19-2019 End: 04-05-2020 take 2 [...] Date Documented Da te Episodic/Chronic Administrative/social admission (17 sources) Other reduced mobility; Translations: [Impaired mobility and activities of daily living] 04-29-2019 Episodic Comment on above: Problem List clean-u p per request of Phys. EHR Cmte Anxiety disorders (20 sources) Anxiety; Translations: [Anxiety disorder, unspecified] Onset: 03-13-2024 03-13-2024 Chronic Chronic obstructive pulmonary disease and bronchiectasis (6 sources) Bronchitis; Translations: [Bronchitis, not specified as acute or chronic] Onset: 01-13-2025 01-13-2025 Episodic Chronic ulcer of skin (20 sources) Non-pressure chronic ulcer of other part of right foot limited to breakdown of skin; Translations: [Ulcer of other part of foot] Onset: 12-07-2022 12-07-2022 Chronic Deficiency and other anemia (17 sources) Anemia; Translations: [Anemia, unspecified] 04-29-2019 Episodic Comment on above: Problem List clean-u p per request of Phys. EHR Cmte Deficiency and other anemia (2 sources) Nutritional anemia; Translations: [Folate deficiency anemia, unspecified] 01-13-2025 Episodic Diabetes mellitus with complications (20 sources) Type 2 diabetes mellitus with diabetic polyneuropathy; Translations: [Type 2 diabetes mellitus] Onset: 03-28-2021 Chronic Diabetes mellitus without complication (20 sources) Diabetes mellitus; Translations: [Type 2 diabetes [...] for immunization] 04-23-2024 Episodic Malaise and fatigue (14 sources) Asthenia; Translations: [Weakness] 03-10-2024 Episodic Mood disorders (20 sources) Reactive depression (situational); Translations: [Major depressive disorder, single episode, unspecified] Onset: 12-07-2022 12-07-2022 Chronic Nausea and vomiting (17 sources) Nausea and vomiting; Translations: [Nausea with vomiting, unspecified] 04-29-2019 Episodic Comment on above: Problem List clean-u p per request of Phys. EHR Cmte Open wounds of head; neck; and trunk (17 sources) Tear of skin; Translations: [Skin tear] 07-23-2020 Episodic Comment on above: Problem List clean-u p per request of Phys. EHR Cmte Osteoarthritis (20 sources) Osteoarthritis of right knee joint; Translations: [Unilateral primary osteoarthritis, right knee] Onset: 04-06-2021 Resolved: 10-05-2021 Chronic Osteoporosis (20 sources) Osteoporosis; Translations: [Age-related osteoporosis without current pathological fracture] Onset: 12-07-2022 12-07-2022 Chronic Other aftercare (1 source) Aftercare following joint replacement surgery; Translations: [Aftercare following joint replacement surgery] Onset: 03-02-2025 Chronic Other circulatory disease (20 sources) Raynaud's disease; Translations: [Raynaud's syndrome without gangrene] Onset: 12-07-2022 12-07-2022 Chronic Other connective tissue disease (3 sources) History of total knee arthroplasty; Translations: [Presence of unspecified artificial knee joint] 09-09-2024 Chronic Other connective tissue disease (3 sources) Presence of unspecified artificial knee joint; Translations: [Knee joint replacement] 09-11-2024 Chronic Other connective tissue disease (8 sources) Presence of right artificial knee joint; Translations: [Knee joint replacement] 09-22-2024 Chronic Other connective tissue disease (17 sources) Pain in left lower limb; Translations: [Pain in left leg] 05-31-2020 Episodic Comment on above: Problem List clean-u p per request of Phys. EHR Cmte Other connective tissue disease (17 sources) Musculoskeletal pain; Translations: [Myalgia, other site] 07-23-2020 Episodic Comment on above: Problem List clean-u p per request of Phys. EHR Cmte Other diseases of bladder and urethra (20 sources) Overactive bladder; Translations: [Overactive bladder] Onset: 12-07-2022 12-07-2022 Chronic Other ear and sense organ disorders (1 source) Impacted cerumen; Translations: [Impacted cerumen, left ear] 12-21-2024 Episodic Other ear and sense organ disorders (1 source) Impacted cerumen, left ear; Translations: [Impacted cerumen] 12-21-2024 Episodic Other ear and sense organ disorders (2 sources) Impacted cerumen in left ear; Translations: [Impacted cerumen, left ear] 12-21-2024 Episodic Other gastrointestinal disorders (17 sources) Constipation; Translations: [Constipation, unspecified] 04-29-2019 Episodic Comment on above: Problem List clean-u p per request of Phys. EHR Cmte Other injuries and conditions due to external causes (17 sources) History of fall; Translations: [History of falling] 04-29-2019 Episodic Comment on above: Problem List clean-u p per request of Phys. EHR Cmte Other lower respiratory disease (11 sources) Acute lower respiratory tract infection; Translations: [Unspecified acute lower respiratory infection] 06-07-2024 Episodic Other lower respiratory disease (5 sources) Unspecified acute lower respiratory infection; Translations: [Other diseases of respiratory system, not elsewhere classified] 06-07-2024 Episodic Other nervous system disorders (20 sources) Chronic pain syndrome; Translations: [Chronic pain syndrome] Onset: 12-07-2022 08-14-2023 Chronic Other nervous system disorders (17 sources) Postoperative pain ; Translations: [Other acute [...] shoulder] 05-05-2019 Episodic Other non-traumatic joint disorders (17 sources) Hip pain; Translations: [Pain in left hip] 04-25-2019 Episodic Comment on above: Problem List clean-u p per request of Phys. EHR Cmte Other non-traumatic joint disorders (19 sources) Pain in right shoulder; Translations: [Right [...] p per request of Phys. EHR Cmte Pathological fracture (17 sources) Pathological fracture of femur due to [...] BREAST] Onset: 02-24-2022 Episodic Residual codes; unclassified (17 sources) Patient encounter status; Translations: [Encounter for prophylactic measures, unspecified] 04-29-2019 Episodic Comment on above: Problem List clean-u p per request of Phys. EHR Cmte Unclassified (1 source) Unknown / UNK(Unknown) Onset: 11-07-2017 Urinary tract infections (5 sources) Urinary tract infectious disease; Translations: [Urinary tract infection, site not specified] Onset: 10-01-2023 Episodic Past or Other Problems Problem Classification Problem Date Documented Date Episodic/Chronic Mood disorders (20 sources) Mood disorders Onset: 03-27-2023 03-27-2023 Mycoses (20 sources) Onychomycosis; Translations: [Tinea unguium] Onset: 12-07-2022 12-07-2022 Episodic Nonspecific chest pain (15 sources) Atypical chest pain; Translations: [Other chest pain] Onset: 03-10-2024 03-10-2024 Episodic Other acquired deformities (20 sources) Leg length inequality; Translations: [Unequal limb length (acquired), unspecified site] Onset: 12-07-2022 12-07-2022 Episodic Other aftercare (14 sources) Post-discharge follow-up; Translations: [Encounter for follow-up examination after completed treatment for conditions other than malignant neoplasm] Onset: 10-25-2024 10-25-2024 Episodic Other non-traumatic joint disorders (20 sources) Pain in right knee; Translations: [Pain in joint, lower leg] Onset: 04-06-2021 Resolved: 10-05-2021 Episodic Other skin disorders (20 sources) Callosity; Translations: [Corns and callosities] Onset: 12-07-2022 12-07-2022 Episodic Other upper respiratory infections (20 sources) Acute upper respiratory infection; Translations: [Acute upper respiratory infection, unspecified] Onset: 08-21-2024 07-15-2023 Episodic Residual codes; unclassified (2 sources) Other specified postprocedural states; Translations: [Other specified postprocedural states Z98.890] Onset: 04-06-2021 Resolved: 06-29-2021 Episodic Residual codes; unclassified (12 sources) Edema, generalized; Translations: [Generalized edema] Onset: 10-22-2024 10-22-2024 Episodic Spondylosis; intervertebral disc disorders; other back problems (1 source) Cervicalgia; Translations: [Cervicalgia] Onset: 09-03-2024 Episodic Unclassified (1 source) Lumbar pain M54.50 Onset: 06-29-2021 Resolved: 06-29-2021 Results Test Name Value Interpretation Reference Range Facility CBC W Auto Differential pane l (Bld)on 01-14-2025 Basophils (Bld) [#/Vol] 0 10*3/uL [facility] Basophils/100 WBC (Bld) 1 % Not Estab. [facility] Eosinophils (Bld) [#/Vol] 0.2 10*3/uL [facility] Eosinophils/100 WBC (Bld) 4 % Not Estab. [facility] Erythrocyte distribution width (RBC) [Ratio] 12.4 % 11.7 - 15.4 % [facility] Hematocrit (Bld) [Volume fraction] 36.3 % 34.0 - 46.6 % [facility] Hemoglobin (Bld) [Mass/Vol] 11.4 g/dL 11.1 - 15.9 g/dL [facility] Immature granulocytes (Bld) [#/Vol] 0 10*3/uL [facility] Immature granulocytes/100 WBC (Bld) 0 % Not Estab. [facility] Lymphocytes (Bld) [#/Vol] 0.7 10*3/uL [facility] Lymphocytes/100 WBC (Bld) 17 % Not Estab. [facility] MCH (RBC) [Entitic mass] 27.9 pg 26.6 - 33.0 pg [facility] MCHC (RBC) [Mass/Vol] 31.4 g/dL Low 31.5 - 35.7 g/dL [facility] MCV (RBC) [Entitic vol] 89 fL 79 - 97 fL [facility] Monocytes (Bld) [#/Vol] 0.5 10*3/uL [facility] Monocytes/100 WBC (Bld) 13 % Not Estab. [facility] Neutrophils (Bld) [#/Vol] 2.6 10*3/uL [facility] Neutrophils/100 WBC (Bld) 65 % Not Estab. [facility] Platelets (Bld) [#/Vol] 213 10*3/uL [facility] RBC (Bld) [#/Vol] 4.08 10*6/uL [facility] WBC (Bld) [#/Vol] 4.1 10*3/uL [facility] Laboratory - Chemistry and C hemistry - challengeon 01-14-2025 Albumin [Mass/Vol] 4.1 g/dL 3.8 - 4.8 g/dL [facility] ALP [Catalytic activity/Vol] 69 U/L [facility] ALT [Catalytic activity/Vol] 14 U/L [facility] AST [Catalytic activity/Vol] 19 U/L [facility] Bilirubin [Mass/Vol] 0.3 mg/dL 0.0 - 1 .2 mg/dL [facility] Calcium [Mass/Vol] 9.6 mg/dL 8.7 - 10. 3 mg/dL [facility] Chloride [Moles/Vol] 98 mmol/L 96 - 10 6 mmol/L [facility] CO2 [Moles/Vol] 23 mmol/L 20 - 29 mmol/L [facility] Creatinine [Mass/Vol] 0.52 mg/dL Low 0.57 - 1.00 mg/dL [facility] GFR/1.73 sq M.predicted among non-blacks MDRD (S/P/Bld) [Vol rate/Area] 96 mL/min/{1.73_m2} 59 - PINF mL/min/1.7 3 [facility] Globulin (S) [Mass/Vol] 1.5 g/dL 1.5 - 4.5 g/dL [facility] Glucose [Mass/Vol] 106 mg/dL High 70 - 99 mg/dL [facility] Potassium [Moles/Vol] 4.5 mmol/L 3.5 - 5.2 mmol/L [facility] Protein [Mass/Vol] 5.6 g/dL Low 6.0 - 8.5 g/dL [facility] Sodium [Moles/Vol] 135 mmol/L 134 - 144 mmol/L [facility] Urea nitrogen [Mass/Vol] 25 mg/dL 8 - 27 mg/dL [facility] Urea nitrogen/Creatinine [Mass ratio] 48 mg/mg High 12 - 28 [facility] No Panel Informationon 01-14 Interpretation and review of laboratory results Abnormal [facility] Performed at: 01 - [facility] [address] [id number] Wire Spinner: Raffi Diallo PhD, Phone: [phone] [id number] Laboratory - Hematology and Cell countson 01-13-2025 HbA1c (Bld) [Mass fraction] 5.3 % [facility] No Panel Informationon 01-13 [facility] Laboratory - Chemistry and C hemistry - challengeon 12-21-2024 Bilirubin Ql (U) Negative [facility] Glucose (U) [Mass/Vol] Negative [facility] Ketones Ql (U) Negative [facility] pH (U) 7.5 [pH] [facility] Specific gravity (U) [Rel density] 1.[address] [facility] Urobilinogen (U) [Mass/Vol] 1.0 mg/dL [facility] Laboratory - Specimen inform ationon 12-21-2024 Appearance (U) cloudy [facility] Color (U) yellow [facility] Laboratory - Urinalysison Leukocyte esterase Test strip Ql (U) small [facility] Nitrite Ql (U) Negative [facility] Protein Ql (U) [address] [facility] No Panel Informationon 12-21 Urine Occult Blood trace-intact [facility] Urine Cultureon 12-21-2024 Bacteria identified Cx Nom (U) <10,000 colonies/ml mixed bacterial skin contaminants including mixed gram negative bacilli - 2 Days PERFORMED BY: [place] [address] PATHOLOGIST ASSISTANT DIRECTOR OF [employer] JACQUELINE ENRIQUEZ M.D. Normal [facility] Comment on above: Performed By: #### C UU #### [address] Urine cultureOrdered By: Anh Roberts on 12-21-2024 Bacteria identified Cx Nom (U) bacilli - [address] [facility] ALL CBC WITH AUTO DIFFon 04- 12-2025 Erythrocyte distribution width (RBC) [Ratio] 13.6 % 11.0 - 15.0 % [facility] Hematocrit (Bld) [Volume fraction] 33.1 % Low 36.0 - 48.0 % [facility] Hemoglobin (Bld) [Mass/Vol] 10.6 g/dL Low 12.0 - 16.0 g/dL [facility] Interpretation and review of laboratory results Abnormal [facility] MCH (RBC) [Entitic mass] 29.4 pg 26.7 - 34.0 pg [facility] MCHC (RBC) [Mass/Vol] 32 g/dL 29.9 - 35.2 g/dL [facility] MCV (RBC) [Entitic vol] 91.9 fL 81.0 - 99.0 fL [facility] Platelet mean volume (Bld) [Entitic vol] 10.5 fL 9.5 - 13.5 fL [facility] TBH PLT 228 [facility] RBC 3.6 Low [facility] WBC 3.8 Low [facility] Basic Metabolic Panelon 08-17 Anion gap [Moles/Vol] 7.1 mmol/L Normal 6.0-15.0 [facility] Comment on above: Performed By: #### B MP, CBC #### [facility] [address] [id number] [place] Calcium [Mass/Vol] 8.3 mg/dL Low 8.6-10.3 [facility] Comment on above: Performed By: #### B MP, CBC #### [facility] [address] [place] [address] [place] Chloride [Moles/Vol] 102 mmol/L Normal 98-107 [facility] Comment on above: Performed By: #### B MP, CBC #### [facility] [address] [place] [address] [place] CO2 [Moles/Vol] 27.0 mmol/L Normal 21.0-31.0 [facility] Comment on above: Performed By: #### B MP, CBC #### [facility] [address] [place] [address] [place] Creatinine [Mass/Vol] 0.48 mg/dL Low 0.60-1.20 [facility] Comment on above: Performed By: #### B MP, CBC #### [address] Creatinine Clr Calc Pharmacy 48.10 Normal [facility] Comment on above: Result Comment: PERF ORMED BY: [place] [address] PATHOLOGIST ASSISTANT [employer]OR [employer] MELANIE ALMAZAN M.D. Performed By: #### B MP, CBC #### [place] [address] [place] GFR/1.73 sq M.predicted MDRD (S/P/Bld) [Vol rate/Area] mL/min/{1.73_m2} Normal [facility] Comment on above: Performed By: #### B MP, CBC #### [address] Glucose [Mass/Vol] 91 mg/dL Normal 70-100 [facility] Comment on above: Result Comment: [place] Glucose Reference Range is dependent on time and content of last meal. Glucose of more than 200 mg/dL in a nonstressed, ambulatory subject supports the diagnosis of Diabetes Mellitus. ADA recommended reference range Performed By: #### B MP, CBC #### [address] Potassium [Moles/Vol] 4.1 mmol/L Normal 3.5-5.1 [facility] Comment on above: Performed By: #### B MP, CBC #### [address] Sodium [Moles/Vol] 132 mmol/L Low 136-145 [facility] Comment on above: Performed By: #### B MP, CBC #### [address] Urea nitrogen [Mass/Vol] 19 mg/dL Normal 7-25 [facility] Comment on above: Performed By: #### B MP, CBC #### [place] [address] [place] Basophils Auto (Bld) [#/Vol] Ordered By: João Alok on 09-11-2024 Basophils (Bld) [#/Vol] Automated basophil count 0.0-0.2 [facility] Basophils/100 WBC Auto (Bld) Ordered By: João Soto on 09-11-2024 Basophils/100 WBC (Bld) Automated basophil % . [facility] Calcium [Mass/volume] in Ser um or PlasmaOrdered By: João Soto on 09-11-2024 Calcium [Mass/Vol] Calcium [Mass/volume ] in Serum or Plasma Low 8.6-10.[address] [facility] Carbon dioxide, total [Moles /volume] in Serum or PlasmaOrdered By: João Soto on 09-11-2024 CO2 [Moles/Vol] Carbon dioxide, tota l [Moles/volume] in Serum or Plasma 21.0-31.[address] [facility] Chloride [Moles/volume] in S ozzie or PlasmaOrdered By: João Soto on 09-11-2024 Chloride [Moles/Vol] Chloride [Moles/vol ume] in Serum or Plasma 98-[address] [facility] Complete Blood Count Auto Di ffon 09-11-2024 Basophils (Bld) [#/Vol] 0.0 10*3/uL Normal 0.0-0.2 [facility] Comment on above: Result Comment: PERF ORMED BY: [place] [address] PATHOLOGIST ASSISTANT [employer] MELANIE ALMAZAN M.D. Performed By: #### B MP, CBC #### [address] Basophils/100 WBC (Bld) 0.6 % Normal . [facility] Comment on above: Performed By: #### B MP, CBC #### [address] Eosinophils (Bld) [#/Vol] 0.3 10*3/uL Normal 0.0-0.45 [facility] Comment on above: Performed By: #### B MP, CBC #### [place] [address] [place] Eosinophils/100 WBC (Bld) 4.6 % Normal . [facility] Comment on above: Performed By: #### B MP, CBC #### [address] Erythrocyte distribution width (RBC) [Ratio] 13.8 % Normal 11.9-15.3 [facility] Comment on above: Performed By: #### B MP, CBC #### [address] Hematocrit (Bld) [Volume fraction] 29.7 % Low 34.0-46.4 [facility] Comment on above: Performed By: #### B MP, CBC #### [address] Hemoglobin (Bld) [Mass/Vol] 10.2 g/dL Low 11.8-15.4 [facility] Comment on above: Performed By: #### B MP, CBC #### [address] Lymphocytes (Bld) [#/Vol] 0.9 10*3/uL Low 1.00-4.8 [facility] Comment on above: Performed By: #### B MP, CBC #### [address] Lymphocytes/100 WBC (Bld) 16.6 % Normal . [facility] Comment on above: Performed By: #### B MP, CBC #### [address] MCH (RBC) [Entitic mass] 29.6 pg Normal 24.7-34.3 [facility] Comment on above: Performed By: #### B MP, CBC #### [address] MCV (RBC) [Entitic vol] 86.4 fL Normal 80-100 [facility] Comment on above: Performed By: #### B MP, CBC #### [address] Mean Corpuscular HGB Conc 34.3 g/dL Normal 32.0-35.0 [facility] Comment on above: Performed By: #### B MP, CBC #### [place] [address] [place] Monocytes (Bld) [#/Vol] 0.6 10*3/uL Normal 0.0-0.8 [facility] Comment on above: Performed By: #### B MP, CBC #### [address] Monocytes/100 WBC (Bld) 11.4 % Normal . [facility] Comment on above: Performed By: #### B MP, CBC #### [address] Neutrophils (Bld) [#/Vol] 3.7 10*3/uL Normal 1.8-7.7 [facility] Comment on above: Performed By: #### B MP, CBC #### [address] Neutrophils/100 WBC (Bld) 66.8 % Normal . [facility] Comment on above: Performed By: #### B MP, CBC #### [address] NRBC% 0.0 /100{WBC} Normal 0-0.5 [facility] Comment on above: Performed By: #### B MP, CBC #### [place] [address] [place] Platelet mean volume (Bld) [Entitic vol] 8.9 fL Normal 6.3-10.[address] [facility] Comment on above: Performed By: #### B MP, CBC #### [place] [address] [place] Platelets (Bld) [#/Vol] 179 10*3/uL Normal 150-450 [facility] Comment on above: Performed By: #### B MP, CBC #### [place] [address] [place] RBC (Bld) [#/Vol] 3.44 10*6/uL Low 3.60-5.[address] [facility] Comment on above: Performed By: #### B MP, CBC #### [facility] [address] [place] [address] [place] WBC (Bld) [#/Vol] 5.5 10*3/uL Normal 3.8-11.6 [facility] Comment on above: Performed By: #### B MP, CBC #### [facility] [address] Creatinine [Mass/volume] in Serum or PlasmaOrdered By: João Soto on 09-11-2024 Creatinine [Mass/Vol] Creatinine [Mass/v olume] in Serum or Plasma Low 0.60-1.[address] [facility] Eosinophils Auto (Bld) [#/Vo l]Ordered By: João Soto on 09-11-2024 Eosinophils (Bld) [#/Vol] Automated eosinophil count 0.0-0.[address] [facility] Eosinophils/100 WBC Auto (Bl d)Ordered By: João Soto on 09-11-2024 Eosinophils/100 WBC (Bld) Automated eosinophil % . [facility] Erythrocyte distribution wid th Auto (RBC) [Ratio]Ordered By: João Soto on 09-11-2024 Erythrocyte distribution width (RBC) [Ratio] Erythrocyte distribution width [Ratio] by Automated count 11.9-15.[address] [facility] Glucose Glucometer (BldC) [M ass/Vol]Ordered By: João Soto on 09-11-2024 Glucose [Mass/Vol] Capillary blood gluc ose measurement by glucometer (mass/volume) [facility] Comment on above: Random Glucose Refer ence Range is dependent on time and content of last meal. Glucose of more than 200 mg/dL in a nonstressed, ambulatory subject supports the diagnosis of Diabetes Mellitus. Glucose Poct Glucometerson 0 09-11-2024 Glucose [Mass/Vol] 112 mg/dL Normal [facility] Comment on above: Result Comment: [place] om Glucose Reference Range is dependent on time and content of last meal. Glucose of more than 200 mg/dL in a nonstressed, ambulatory subject supports the diagnosis of Diabetes Mellitus. PERFORMED BY: [facility] [address] [place] [address] PATHOLOGIST ASSISTANT DIRECTOR [employer] MELANIE ALMAZAN M.D. Performed By: #### G LULS #### Point of Care testing , Glucose [Mass/Vol] 106 mg/dL Normal [facility] Comment on above: Result Comment: [place] om Glucose Reference Range is dependent on time and content of last meal. Glucose of more than 200 mg/dL in a nonstressed, ambulatory subject supports the diagnosis of Diabetes Mellitus. PERFORMED BY: [facility] [address] [place] [address] PATHOLOGIST ASSISTANT [employer] MELANIE ALMAZAN M.D. Performed By: #### B MP, CBC #### [address] Glucose [Mass/volume] in Ser um or PlasmaOrdered By: João Soto on 09-11-2024 Glucose [Mass/Vol] Glucose [Mass/volume ] in Serum or Plasma 70-[address] [facility] Comment on above: ADA recommended refe rence rangeRandom Glucose Reference Range is dependent on time and content of last meal. Glucose of more than 200 mg/dL in a nonstressed, ambulatory subject supports the diagnosis of Diabetes Mellitus. Hematocrit Auto (Bld) [Volum e fraction]Ordered By: João Soto on 09-11-2024 Hematocrit (Bld) [Volume fraction] Hematocrit [Volume Fraction] of Blood by Automated count Low 34.0-46.[address] [facility] Hemoglobin [Mass/volume] in BloodOrdered By: João Soto on 09-11-2024 Hemoglobin (Bld) [Mass/Vol] Hemoglobin [Mass/volume] in Blood Low 11.8-15.[address] [facility] Leukocytes [#/volume] correc venkata for nucleated erythrocytes in Blood by Automated counOrdered By: João Soto on 09-11-2024 WBC corrected for nucl RBC Auto (Bld) [#/Vol] Leukocytes [#/volume] corrected for nucleated erythrocytes in Blood by Automated coun 3.8-11.[address] [facility] Lymphocytes Auto (Bld) [#/Vo l]Ordered By: João Soto on 09-11-2024 Lymphocytes (Bld) [#/Vol] Lymphocytes [#/volume] in Blood by Automated count Low 1.00-4.[address] [facility] Lymphocytes/100 WBC Auto (Bl d)Ordered By: João Soto on 09-11-2024 Lymphocytes/100 WBC (Bld) Lymphocytes/100 leukocytes in Blood by Automated count . [facility] MCH Auto (RBC) [Entitic mass ]Ordered By: João Soto on 09-11-2024 MCH (RBC) [Entitic mass] MCH [Entitic mass] by Automated count 24.7-34.[address] [facility] MCHC Auto (RBC) [Mass/Vol]Or dered By: João Soto on 09-11-2024 MCHC (RBC) [Mass/Vol] MCHC [Mass/volume] by Automated count 32.0-35.[address] [facility] MCV Auto (RBC) [Entitic vol] Ordered By: João Soto on 09-11-2024 MCV (RBC) [Entitic vol] MCV [Entitic volume] by Automated count 80-[address] [facility] Monocytes Auto (Bld) [#/Vol] Ordered By: João Soto on 09-11-2024 Monocytes (Bld) [#/Vol] Automated blood monocyte count 0.0-0.[address] [facility] Monocytes/100 WBC Auto (Bld) Ordered By: João Soto on 09-11-2024 Monocytes/100 WBC (Bld) Automated monocyte % . [facility] Neutrophils Auto (Bld) [#/Vo l]Ordered By: João Soto on 09-11-2024 Neutrophils (Bld) [#/Vol] Neutrophils [#/volume] in Blood by Automated count 1.8-7.[address] [facility] Neutrophils/100 WBC Auto (Bl d)Ordered By: João Soto on 09-11-2024 Neutrophils/100 WBC (Bld) Automated neutrophil % . [facility] No Panel InformationOrdered By: João Soto on 09-11-2024 Estimated GFR (CKD-EPI) > 60.0 mL/Min [facility] Creatinine Clearance (Chem 48.[address] [facility] Nucleated erythrocytes [Pres ence] in Blood by Automated countOrdered By: João Soto on 09-11-2024 Nucleated RBC Auto Ql (Bld) Nucleated erythrocytes [Presence] in Blood by Automated count 0-0.[address] [facility] Pathology study report docum entOrdered By: Imer Connor on 09-11-2024 Pathology [address] [facility] Other Platelet mean volume Auto (B ld) [Entitic vol]Ordered By: João Soto on 09-11-2024 Platelet mean volume (Bld) [Entitic vol] Platelet mean volume [Entitic volume] in Blood by Automated count 6.3-10.[address] [facility] Platelets Auto (Bld) [#/Vol] Ordered By: João Soto on 09-11-2024 Platelets (Bld) [#/Vol] Platelets [#/volume] in Blood by Automated count 150-[address] [facility] Potassium [Moles/volume] in Serum or PlasmaOrdered By: João Soto on 09-11-2024 Potassium [Moles/Vol] Potassium [Moles/v olume] in Serum or Plasma 3.5-5.[address] [facility] RBC Auto (Bld) [#/Vol]Ordere d By: João Soto on 09-11-2024 RBC (Bld) [#/Vol] Erythrocytes [#/volu me] in Blood by Automated count Low 3.60-5.[address] [facility] Serum or plasma anion gap de terminationOrdered By: João Soto on 09-11-2024 Anion gap [Moles/Vol] Serum or plasma an ion gap determination 6.0-15.[address] [facility] Sodium [Moles/volume] in Ser um or PlasmaOrdered By: João Soto on 09-11-2024 Sodium [Moles/Vol] Sodium [Moles/volume ] in Serum or Plasma Low 136-[address] [facility] Urea nitrogen [Mass/volume] in Serum or PlasmaOrdered By: João Soto on 09-11-2024 Urea nitrogen [Mass/Vol] Urea nitrogen [Mass/volume] in Serum or Plasma 7-[address] [facility] WBC Auto (Bld) [#/Vol]Ordere d By: João Soto on 09-11-2024 WBC (Bld) [#/Vol] Leukocytes [#/volume ] in Blood by Automated count 3.8-11.[address] [facility] Basic Metabolic Panelon 08-17 Anion gap [Moles/Vol] 7.8 mmol/L Normal 6.0-15.0 [facility] Comment on above: Performed By: #### C BC, BMP #### [facility] [address] [place] [address] [place] Calcium [Mass/Vol] 8.7 mg/dL Normal 8.6-10.3 [facility] Comment on above: Performed By: #### C BC, BMP #### [facility] [address] [place] [address] [place] Chloride [Moles/Vol] 101 mmol/L Normal 98-107 [facility] Comment on above: Performed By: #### C BC, BMP #### [facility] [address] [place] [address] [place] CO2 [Moles/Vol] 30.6 mmol/L Normal 21.0-31.0 [facility] Comment on above: Performed By: #### C BC, BMP #### [place] [address] [place] Creatinine [Mass/Vol] 0.55 mg/dL Low 0.60-1.20 [facility] Comment on above: Performed By: #### C BC, BMP #### [place] [address] [place] Creatinine Clr Calc Pharmacy 47.92 Normal [facility] Comment on above: Result Comment: PERF ORMED BY: [place] [address] PATHOLOGIST ASSISTANT DIRECTOR OF [employer] MELANIE ALMAZAN M.D. Performed By: #### C BC, BMP #### [place] [address] [place] GFR/1.73 sq M.predicted MDRD (S/P/Bld) [Vol rate/Area] mL/min/{1.73_m2} Normal [facility] Comment on above: Performed By: #### C BC, BMP #### [address] Glucose [Mass/Vol] 102 mg/dL High 70-100 [facility] Comment on above: Result Comment: [place] Glucose Reference Range is dependent on time and content of last meal. Glucose of more than 200 mg/dL in a nonstressed, ambulatory subject supports the diagnosis of Diabetes Mellitus. ADA recommended reference range Performed By: #### C BC, BMP #### [address] Potassium [Moles/Vol] 4.4 mmol/L Normal 3.5-5.1 [facility] Comment on above: Performed By: #### C BC, BMP #### [address] Sodium [Moles/Vol] 135 mmol/L Low 136-145 [facility] Comment on above: Performed By: #### C BC, BMP #### [address] Urea nitrogen [Mass/Vol] 17 mg/dL Normal 7-25 [facility] Comment on above: Performed By: #### C BC, BMP #### [address] Complete Blood Count Auto Di ffon 09-10-2024 Basophils (Bld) [#/Vol] 0.0 10*3/uL Normal 0.0-0.2 [facility] Comment on above: Result Comment: PERF ORMED BY: [place] [address] PATHOLOGIST ASSISTANT DIRECTOR OF [employer] MELANIE ALMAZAN M.D. Performed By: #### C BC, BMP #### [place] [address] [place] Basophils/100 WBC (Bld) 0.1 % Normal . [facility] Comment on above: Performed By: #### C BC, BMP #### [place] [address] [place] Eosinophils (Bld) [#/Vol] 0.1 10*3/uL Normal 0.0-0.45 [facility] Comment on above: Performed By: #### C BC, BMP #### [address] Eosinophils/100 WBC (Bld) 1.8 % Normal . [facility] Comment on above: Performed By: #### C BC, BMP #### [address] Erythrocyte distribution width (RBC) [Ratio] 13.2 % Normal 11.9-15.3 [facility] Comment on above: Performed By: #### C BC, BMP #### [address] Hematocrit (Bld) [Volume fraction] 31.3 % Low 34.0-46.4 [facility] Comment on above: Performed By: #### C BC, BMP #### [address] Hemoglobin (Bld) [Mass/Vol] 10.7 g/dL Low 11.8-15.4 [facility] Comment on above: Performed By: #### C BC, BMP #### [address] Lymphocytes (Bld) [#/Vol] 0.7 10*3/uL Low 1.00-4.8 [facility] Comment on above: Performed By: #### C BC, BMP #### [address] Lymphocytes/100 WBC (Bld) 11.8 % Normal . [facility] Comment on above: Performed By: #### C BC, BMP #### [address] MCH (RBC) [Entitic mass] 29.7 pg Normal 24.7-34.3 [facility] Comment on above: Performed By: #### C BC, BMP #### [address] MCV (RBC) [Entitic vol] 87.2 fL Normal 80-100 [facility] Comment on above: Performed By: #### C BC, BMP #### [facility] [address] Mean Corpuscular HGB Conc 34.1 g/dL Normal 32.0-35.0 [facility] Comment on above: Performed By: #### C BC, BMP #### [facility] [address] [place] [address] [place] Monocytes (Bld) [#/Vol] 0.8 10*3/uL Normal 0.0-0.8 [facility] Comment on above: Performed By: #### C BC, BMP #### [facility] [address] Monocytes/100 WBC (Bld) 12.5 % Normal . [facility] Comment on above: Performed By: #### C BC, BMP #### [facility] [address] Neutrophils (Bld) [#/Vol] 4.6 10*3/uL Normal 1.8-7.7 [facility] Comment on above: Performed By: #### C BC, BMP #### [facility] [address] Neutrophils/100 WBC (Bld) 73.8 % Normal . [facility] Comment on above: Performed By: #### C BC, BMP #### [facility] [address] NRBC% 0.1 /100{WBC} Normal 0-0.5 [facility] Comment on above: Performed By: #### C BC, BMP #### [facility] [address] Platelet mean volume (Bld) [Entitic vol] 8.7 fL Normal 6.3-10.[address] [facility] Comment on above: Performed By: #### C BC, BMP #### [place] [address] [place] Platelets (Bld) [#/Vol] 201 10*3/uL Normal 150-450 [facility] Comment on above: Performed By: #### C BC, BMP #### [facility] [address] RBC (Bld) [#/Vol] 3.59 10*6/uL Low 3.60-5.[address] [facility] Comment on above: Performed By: #### C BC, BMP #### [facility] [address] [place] [id number] [facility] WBC (Bld) [#/Vol] 6.2 10*3/uL Normal 3.8-11.6 [facility] Comment on above: Performed By: #### C BC, BMP #### [facility] [address] Glucose Poct Glucometerson 0 09-10-2024 Glucose [Mass/Vol] 118 mg/dL Normal [facility] Comment on above: Result Comment: [place] om Glucose Reference Range is dependent on time and content of last meal. Glucose of more than 200 mg/dL in a nonstressed, ambulatory subject supports the diagnosis of Diabetes Mellitus. PERFORMED BY: [place] [address] PATHOLOGIST ASSISTANT DIRECTOR OF [employer] MELANIE ALMAZAN M.D. Performed By: #### B MP, CBC #### [address] Glucose [Mass/Vol] 143 mg/dL Normal [facility] Comment on above: Result Comment: [place] om Glucose Reference Range is dependent on time and content of last meal. Glucose of more than 200 mg/dL in a nonstressed, ambulatory subject supports the diagnosis of Diabetes Mellitus. PERFORMED BY: [place] [address] PATHOLOGIST ASSISTANT DIRECTOR [employer] MELANIE ALMAZAN M.D. Performed By: #### B MP, CBC #### [facility] [address] Glucose [Mass/Vol] 113 mg/dL Normal [facility] Comment on above: Result Comment: [place] om Glucose Reference Range is dependent on time and content of last meal. Glucose of more than 200 mg/dL in a nonstressed, ambulatory subject supports the diagnosis of Diabetes Mellitus. PERFORMED BY: [place] [address] PATHOLOGIST ASSISTANT DIRECTOR [employer] MELANIE ALMAZAN M.D. Performed By: #### B MP, CBC #### [address] Glucose [Mass/Vol] 109 mg/dL Normal [facility] Comment on above: Result Comment: [place] om Glucose Reference Range is dependent on time and content of last meal. Glucose of more than 200 mg/dL in a nonstressed, ambulatory subject supports the diagnosis of Diabetes Mellitus. PERFORMED BY: [place] [address] PATHOLOGIST ASSISTANT DIRECTOR [employer] MELANIE ALMAZAN M.D. Performed By: #### G LULS #### Point of Care testing , Glucose Poct Glucometerson 0 09-09-2024 Glucose [Mass/Vol] 183 mg/dL Normal [facility] Comment on above: Result Comment: [place] om Glucose Reference Range is dependent on time and content of last meal. Glucose of more than 200 mg/dL in a nonstressed, ambulatory subject supports the diagnosis of Diabetes Mellitus. PERFORMED BY: [address] [address] PATHOLOGIST ASSISTANT DIRECTOR [employer] MELANIE ALMAZAN M.D. Performed By: #### G LULS #### Point of Care testing , Glucose [Mass/Vol] 129 mg/dL Normal [facility] Comment on above: Result Comment: [place] om Glucose Reference Range is dependent on time and content of last meal. Glucose of more than 200 mg/dL in a nonstressed, ambulatory subject supports the diagnosis of Diabetes Mellitus. PERFORMED BY: [place] [address] PATHOLOGIST ASSISTANT DIRECTOR [employer] MELANIE ALMAZAN M.D. Performed By: #### G LULS #### Point of Care testing , Glucose [Mass/Vol] 132 mg/dL Normal [facility] Comment on above: Result Comment: [facility] Glucose Reference Range is dependent on time and content of last meal. Glucose of more than 200 mg/dL in a nonstressed, ambulatory subject supports the diagnosis of Diabetes Mellitus. PERFORMED BY: [facility] [address] [facility] [place] [address] PATHOLOGIST ASSISTANT DIRECTOR [employer] MELANIE ALMAZAN M.D. Performed By: #### G LULS #### Point of Care testing , Commemt1 Glu2: Cleaned Meter Normal The [facility] Comment on above: Result Comment: PERF ORMED BY: [facility] [address] [place] [address] PATHOLOGIST ASSISTANT DIRECTOR OF [employer] MELANIE ALMAZAN M.D. Performed By: #### G LULS #### Point of Care testing , Glucose [Mass/Vol] 98 mg/dL Normal [facility] Comment on above: Result Comment: [facility] Glucose Reference Range is dependent on time and content of last meal. Glucose of more than 200 mg/dL in a nonstressed, ambulatory subject supports the diagnosis of Diabetes Mellitus. Performed By: #### G LULS #### Point of Care testing , Dino 09-09-2024 L ----- Specimen: [id number] Received: 09/09/24 Status: BARBARA Polk Num: [id number] Spec Type: Surgical Subm Dr: João Soto, Tissues: A Joint/Knee (RIGHT TOTAL KNEE) Procedures: JACKELYN, Gross/Micro L4, Decalcification Age/ Patient Sex Location Account Attending Physician Nata Pete 79/F 4N [id number] João Soto DO SPEC NUM: [id number] RECD: 09/09/24 STATUS: BARBARA POLK NUM: [id number] LORIN: 09/09/24-[address]: João Soto DO ENTERED: 09/09/[address] [facility] [address]: VERONICA TYPE: Surgical DEPT: S ENTERED BY: [id number] RECV BY: [id number] ORDERED: JACKELYN, Gross/Micro L4, Decalcification ORDERED: JACKELYN, Gross/Micro L4, Decalcification Pathological Diagnosis Right knee [...] yellow-bryant, glistening and uniform cut surfaces. A career representative section of the bone is submitted in a single cassette after decalcification. (1, , [id number])MEJIA Specimen: [id number] Received: 09/09/24 Status: BARBARA Polk Num: [id number] Spec Type: Surgical Subm Dr: João Soto DO Tissues: A Joint/Knee (RIGHT TOTAL KNEE) Procedures: JACKELYN, Gross/Micro L4, Decalcification Patient: Nata Pete [id number] (Continued) Specimen: [id number] Received: 09/09/24 (Continued) Signed (signature on file) MelecioJannaTk Connor MD 09/11/24 1509 Specimen: [id number] Received: 09/09/24 Status: BARBARA Polk Num: [id number] Spec Type: Surgical Subm Dr: João Soto DO Tissues: A Joint/Knee (RIGHT TOTAL KNEE) Procedures: JACKELYN, Gross/Micro L4, Decalcification Patient: Nata Pete [id number] (Continued) Specimen: [id number] Received: 09/09/24 (Continued) Microscopic Description Microscopic examinations are performed supporting the above interpretation CPT Codes 38794 59429 Specimen: [id number] Received: 09/09/24 Status: BARBARA Polk Num: [id number] Spec Type: Surgical Subm Dr: João Soto DO Tissues: A Joint/Knee (RIGHT TOTAL KNEE) Procedures: JACKELYN, Gross/Micro L4, Decalcification Patient: Nata Pete [id number] (Continued) Signed (signature on file) Imer Connor MD 09/11/24 8674 Normal [facility] No Panel InformationOrdered By: João Soto on 09-09-2024 Bedside Glucose Comment Glu2: cleaned meter [facility] X-ray reportOrdered By: Catracho Arroyo on 09-09-2024 Study report [address] [address] XRay Report Signed Patient: Nata Pete MR#: [id number] : 1945 Acct:[id number] Age/Sex: 79 / F ADM Date: 5 Loc: 4N Room: [address] [place] [address] Type: REG SD Attending Dr: João Soto DO Copies to: João Soto DO~ Ordering Provider: João Soto DO Date of Service: 09/09/24 XR/XR knee RT 2V: Total or partial knee, do in PACU RIGHT KNEE - 2 views CLINICAL HISTORY: Postop right TKA COMPARISON: None FINDINGS: Soft tissues demonstrate postoperative changes. No hardware complication. XR/XR knee RT 2V IMPRESSION: NO HARDWARE COMPLICATION. Impression dictated by: Joel Goodwin Jr.OKiara09/09/2024 4:01 PM Dictation Location: [facility]-22 Transcribed By: HIMA 09/09/24 1601 Dictated By: Dedrick Arroyo Jr, DO 09/09/24 1600 Signed By: 09/09/[address] [facility] XR knee RT 2Von 09-09-2024 XR knee RT 2V [facility] [address] XRay Report Signed Patient: Nata Pete MR#: [id number] : 1945 Acct:[id number] Age/Sex: 79 / F ADM Date: 09/09/24 Loc: 4N Room: [address] [place] [address] Type: REG SDC Attending Dr: João Soto [...] IMPRESSION: NO HARDWARE COMPLICATION. Impression dictated by: Bryan Goodwin Jr..OKiara09/09/2024 4:01 PM Dictation Location: [facility]-22 Transcribed By: HIMA 09/09/24 1601 Dictated By: Dedrick Arroyo Jr, DO 09/09/24 1600 Signed By: 09/09/24 1601 Normal [facility] X-ray reportOrdered By: Yuriy Moran on 09-03-2024 Study report [facility] [address] [place] [address] XRay Report Signed Patient: Nata Pete MR#: [id number] : 1945 Acct:[id number] Age/Sex: 79 / F ADM Date: 5 Loc: [facility] Room: Type: [facility] CLI Attending Dr: João Soto DO Copies to: João Soto DO~ Ordering Provider: João Soto DO Date of Service: 09/03/24 XR/XR femur BI: M17.11 - Unilateral primary osteoarthritis, right knee ([id number]) XR/XR tibia/fibula BI: M17.11 - Unilateral primary [...] Yuriy Moran M.D.09/03/2024 11:39 PM Dictation Location: [facility]-17 Transcribed By: HIMA 09/03/24 005 Dictated By: Yuriy Moran II, MD 09/03/242337 Signed By: 09/03/242338 [facility] Work Phone: Study report [facility] [address] [place] [address] XRay Report Signed Patient: Nata Pete MR#: [id number] : 1945 Acct:[id number] Age/Sex: 79 / F ADM Date: 5 Loc: [facility] Room: Type: [facility] Attending Dr: João Soto DO Copies to: [...] Yuriy Moran M.D.09/03/2024 9:29 PM Dictation Location: [place] [address] Transcribed By: [facility] 09/03/242128 Dictated By: Yuriy Moran II, MD 09/03/242126 Signed By: 09/03/242128 [facility] Work Phone: XR cerv spine AP/LAT/FLX/EXT on 09-03-2024 XR cerv spine AP/LAT/FLX/EXT [facility] [address] [place] [address] XRay Report Signed Patient: Nata Pete MR#: [id number] : 1945 Acct:[id number] Age/Sex: 79 / F ADM Date: 09/03/24 Loc: [facility] Room: Type: [facility] Attending Dr: João Soto DO Copies to: João Soto DO Ordering Provider: Jooã Soto DO Date of Service: 09/03/24 XR/XR [...] Yuriy Moran M.D.09/03/2024 9:29 PM Dictation Location: [place] [address] Transcribed By: [facility] 09/03/242128 Dictated By: Yuriy Moran II, MD 09/03/242126 Signed By: 09/03/242128 Normal [facility] XR tibia/fibula BIon 025 XR tibia/fibula BI [facility] [address] [place] [address] XRay Report Signed Patient: Nata Pete MR#: [id number] : 1945 Acct:[id number] Age/Sex: 79 / F ADM Date: 09/03/24 Loc: SOXD Room: Type: [facility] Attending Dr: João Soto DO Copies to: João Soto DO Ordering Provider: João Soto DO Date of Service: 09/03/24 XR/XR femur BI: M17.11 - Unilateral primary osteoarthritis, right knee ([id number]) XR/XR tibia/fibula BI: M17.11 - Unilateral primary [...] Yuriy Moran M.D.09/03/2024 11:39 PM Dictation Location: [place] [address] Transcribed By: [facility] 09/03/242338 Dictated By: Yuriy Moran II, MD 09/03/242337 Signed By: 09/03/242338 Normal [facility] Appearance of UrineOrdered B y: João Soto on 08-26-2024 Appearance (U) Urine appearance Clear [facility] Bacteria [Presence] in Urine by AutomatedOrdered By: João Soto on 08-26-2024 Bacteria Auto Ql (U) Bacteria [Presence] in Urine by Automated None Seen [facility] Bilirubin Test strip Ql (U)O rdered By: João Soto on 08-26-2024 Bilirubin Ql (U) Bilirubin.total [Presence] in Urine by Test strip Negative [facility] Color Auto (U)Ordered By: Dana Soto on 08-26-2024 Color (U) Color of Urine by Auto Yellow Fi [facility] Dipstick and Microscopicon 0 08-26-2024 Appearance (U) Clear Normal Clear [facility] Comment on above: Order Comment: Name Collection Type:: Clean-Voided Midstream Performed By: #### G LULS #### Point of Care testing , Bacteria,Urine None Seen Normal None Seen [facility] Comment on above: Order Comment: Name Collection Type:: Clean-Voided Midstream Performed By: #### G LULS #### Point of Care testing , Bilirubin,Urine Negative Normal Negative [facility] Comment on above: Order Comment: Name Collection Type:: Clean-Voided Midstream Performed By: #### G LULS #### Point of Care testing , Color (U) Light-Yellow Normal Yellow [facility] Comment on above: Order Comment: Name Collection Type:: Clean-Voided Midstream Performed By: #### G LULS #### Point of Care testing , Glucose Ql (U) Normal Normal Normal [facility] Comment on above: Order Comment: Name Collection Type:: Clean-Voided Midstream Performed By: #### G LULS #### Point of Care testing , Hyaline Casts,Urine None Normal 0-8 [facility] Comment on above: Order Comment: Name Collection Type:: Clean-Voided Midstream Result Comment: PERF ORMED BY: [facility] [address] [place] [address] PATHOLOGIST ASSISTANT DIRECTOR OF [employer] MELANIE ALMAZAN M.D. Performed By: #### G LULS #### Point of Care testing , Ketones Ql (U) Negative Normal Negative [facility] Comment on above: Order Comment: Name Collection Type:: Clean-Voided Midstream Performed By: #### G LULS #### Point of Care testing , Leukocyte esterase Test strip Ql (U) Negative Normal Negative [facility] Comment on above: Order Comment: Name Collection Type:: Clean-Voided Midstream Performed By: #### G LULS #### Point of Care testing , Nitrite,Urine Negative Normal Negative [facility] Comment on above: Order Comment: Name Collection Type:: Clean-Voided Midstream Performed By: #### G LULS #### Point of Care testing , Occult Blood,Urine 1+ High Negative [facility] Comment on above: Order Comment: Name Collection Type:: Clean-Voided Midstream Result Comment: PERF ORMED BY: [facility] [place] [place] [address] PATHOLOGIST ASSISTANT DIRECTOR [employer] MELANIE ALMAZAN M.D. Performed By: #### G LULS #### Point of Care testing , pH (U) 6.5 [pH] Normal 5.0-9.0 [facility] Comment on above: Order Comment: Name Collection Type:: Clean-Voided Midstream Performed By: #### G LULS #### Point of Care testing , Protein,Urine Negative Normal Negative [facility] Comment on above: Order Comment: Name Collection Type:: Clean-Voided Midstream Performed By: #### G LULS #### Point of Care testing , RBC,Urine 1-2 Normal 0-4 [facility] Comment on above: Order Comment: Name Collection Type:: Clean-Voided Midstream Performed By: #### G LULS #### Point of Care testing , Specificy [place],Urine 1.018 Normal 1.001-1.03 0 [facility] Comment on above: Order Comment: Name Collection Type:: Clean-Voided Midstream Performed By: #### G LULS #### Point of Care testing , Squamous Epithelial Cell,Urine 1-2 Normal 0-2 [facility] Comment on above: Order Comment: Name Collection Type:: Clean-Voided Midstream Performed By: #### G LULS #### Point of Care testing , Urobilinogen,Urine Normal Normal Normal [facility] Comment on above: Order Comment: Name Collection Type:: Clean-Voided Midstream Performed By: #### G LULS #### Point of Care testing , WBC,Urine 1-2 Normal 0-4 [facility] Comment on above: Order Comment: Name Collection Type:: Clean-Voided Midstream Performed By: #### G LULS #### Point of Care testing , Epithelial cells.squamous [# /area] in Urine sediment by Automated countOrdered By: João Soto on 08-26-2024 Epithelial cells.squamous Auto (Urine sed) [#/Area] Epithelial cells.squamous [#/area] in Urine sediment by Automated count 0-[address] [facility] Erythrocytes [#/area] in Uri ne sediment by Automated countOrdered By: João Soto on 08-26-2024 RBC Auto (Urine sed) [#/Area] Erythrocytes [#/area] in Urine sediment by Automated count 0-[address] [facility] Glucose [Mass/volume] in Uri ne by Test stripOrdered By: João Soto on 08-26-2024 Glucose Test strip (U) [Mass/Vol] Glucose [Mass/volume] in Urine by Test strip Normal [facility] Hemoglobin Test strip Ql (U) Ordered By: João Soto on 08-26-2024 Hemoglobin Ql (U) Hemoglobin [Presence ] in Urine by Test strip High Negative [facility] Hyaline casts [#/area] in Ur ine sediment by Automated countOrdered By: João Soto on 08-26-2024 Hyaline casts Auto (Urine sed) [#/Area] Hyaline casts [#/area] in Urine sediment by Automated count 0-[address] [facility] Ketones Test strip Ql (U)Ord ered By: João Soot on 08-26-2024 Ketones Ql (U) Ketones [Presence] i n Urine by Test strip Negative [facility] Leukocyte esterase [Presence ] in Urine by Test stripOrdered By: João Soto on 08-26-2024 Leukocyte esterase Test strip Ql (U) Leukocyte esterase [Presence] in Urine by Test strip Negative [facility] Leukocytes [#/area] in Urine sediment by Automated countOrdered By: João Soto on 08-26-2024 WBC Auto (Urine sed) [#/Area] Leukocytes [#/area] in Urine sediment by Automated count 0-[address] [facility] Nitrite Test strip Ql (U)Ord ered By: João Soto on 08-26-2024 Nitrite Ql (U) Nitrite [Presence] i n Urine by Test strip Negative [facility] Protein Test strip (U) [Mass /Vol]Ordered By: João Soto on 08-26-2024 Protein (U) [Mass/Vol] Protein [Mass/vol ume] in Urine by Test strip Negative [facility] Specific gravity Test strip (U) [Rel density]Ordered By: João Soto on 08-26-2024 Specific gravity (U) [Rel density] Specific gravity of Urine by Test strip 1.001-1.[address] [facility] Urobilinogen Test strip (U) [Mass/Vol]Ordered By: João Soto on 08-26-2024 Urobilinogen (U) [Mass/Vol] Urobilinogen [Mass/volume] in Urine by Test strip Normal [facility] pH Test strip (U)Ordered By: João Soto on 08-26-2024 pH (U) pH of Urine by Test strip 5.0-9.[address] [facility] Alanine aminotransferase [En zymatic activity/volume] in Serum or PlasmaOrdered By: João Soto on 08-22-2024 ALT [Catalytic activity/Vol] Alanine aminotransferase [Enzymatic activity/volume] in Serum or Plasma 7-[address] [facility] Albumin [Mass/volume] in Ser um or Plasma by Bromocresol green (BCG) dye binding methoOrdered By: João Soto on 08-22-2024 Albumin BCG dye [Mass/Vol] Albumin [Mass/volume] in Serum or Plasma by Bromocresol green (BCG) dye binding metho 3.5-5.[address] [facility] Alkaline phosphatase [Enzyma tic activity/volume] in Serum or PlasmaOrdered By: João Soto on 08-22-2024 ALP [Catalytic activity/Vol] Alkaline phosphatase [Enzymatic activity/volume] in Serum or Plasma 34-[address] [facility] Aspartate aminotransferase [ Enzymatic activity/volume] in Serum or PlasmaOrdered By: João Soto on 08-22-2024 AST [Catalytic activity/Vol] Aspartate aminotransferase [Enzymatic activity/volume] in Serum or Plasma 13-[address] [facility] Basophils Auto (Bld) [#/Vol] Ordered By: João Soto on 08-22-2024 Basophils (Bld) [#/Vol] Automated basophil count 0.0-0.2 [facility] Basophils/100 WBC Auto (Bld) Ordered By: João Soto on 08-22-2024 Basophils/100 WBC (Bld) Automated basophil % . [facility] Bilirubin.total [Mass/volume ] in Serum or PlasmaOrdered By: João Soto on 08-22-2024 Bilirubin [Mass/Vol] Bilirubin.total [Mass/volume] in Serum or Plasma 0.3-1.[address] [facility] CMP with reflex to A1Con Albumin [Mass/Vol] 4.0 g/dL Normal 3.5-5.7 [facility] Comment on above: Performed By: #### G LULS #### Point of Care testing , Albumin/Globulin [Mass ratio] 2.7 {ratio} Normal [facility] Comment on above: Performed By: #### G LULS #### Point of Care testing , ALP [Catalytic activity/Vol] 47 U/L Normal 34-104 [facility] Comment on above: Result Comment: PERF ORMED BY: [facility] [address] [place] [address] PATHOLOGIST ASSISTANT DIRECTOR OF [employer] MELANIE ALMAZAN M.D. Performed By: #### G LULS #### Point of Care testing , ALT [Catalytic activity/Vol] 10 U/L Normal 7-52 [facility] Comment on above: Performed By: #### G LULS #### Point of Care testing , Anion gap [Moles/Vol] 5.7 mmol/L Low 6.0-15.0 [facility] Comment on above: Performed By: #### G LULS #### Point of Care testing , AST [Catalytic activity/Vol] 15 U/L Normal 13-39 [facility] Comment on above: Performed By: #### G LULS #### Point of Care testing , Bilirubin [Mass/Vol] 0.5 mg/dL Normal 0.3-1.0 [facility] Comment on above: Performed By: #### G LULS #### Point of Care testing , Calcium [Mass/Vol] 9.1 mg/dL Normal 8.6-10.3 [facility] Comment on above: Performed By: #### G MONCHOLS #### Point of Care testing , Chloride [Moles/Vol] 101 mmol/L Normal 98-107 [facility] Comment on above: Performed By: #### G LULS #### Point of Care testing , CO2 [Moles/Vol] 31.1 mmol/L High 21.0-31.0 [facility] Comment on above: Performed By: #### G MONCHOLS #### Point of Care testing , Creatinine [Mass/Vol] 0.47 mg/dL Low 0.60-1.20 [facility] Comment on above: Performed By: #### G LULS #### Point of Care testing , GFR/1.73 sq M.predicted MDRD (S/P/Bld) [Vol rate/Area] mL/min/{1.73_m2} Normal [facility] Comment on above: Performed By: #### G LULS #### Point of Care testing , Globulin (S) [Mass/Vol] 1.5 g/dL Normal [facility] Comment on above: Performed By: #### G MONCHOLS #### Point of Care testing , Glucose [Mass/Vol] 96 mg/dL Normal 70-100 [facility] Comment on above: Performed By: #### G MONCHOLS #### Point of Care testing , Potassium [Moles/Vol] 4.8 mmol/L Normal 3.5-5.1 [facility] Comment on above: Performed By: #### G MONCHOLS #### Point of Care testing , Protein [Mass/Vol] 5.5 g/dL Low 6.4-8.9 [facility] Comment on above: Performed By: #### G MONCHOLS #### Point of Care testing , Sodium [Moles/Vol] 133 mmol/L Low 136-145 [facility] Comment on above: Performed By: #### G LULS #### Point of Care testing , Urea nitrogen [Mass/Vol] 20 mg/dL Normal 7-25 [facility] Comment on above: Performed By: #### G LULS #### Point of Care testing , Calcium [Mass/volume] in Ser um or PlasmaOrdered By: João Soto on 08-22-2024 Calcium [Mass/Vol] Calcium [Mass/volume ] in Serum or Plasma 8.6-10.[address] [facility] Carbon dioxide, total [Moles /volume] in Serum or PlasmaOrdered By: João Soto on 08-22-2024 CO2 [Moles/Vol] Carbon dioxide, tota l [Moles/volume] in Serum or Plasma High 21.0-31.[address] [facility] Chloride [Moles/volume] in S ozzie or PlasmaOrdered By: João Soto on 08-22-2024 Chloride [Moles/Vol] Chloride [Moles/vol ume] in Serum or Plasma 98-[address] [facility] Complete Blood Count Auto Di ffon 08-22-2024 Basophils (Bld) [#/Vol] 0.0 10*3/uL Normal 0.0-0.2 [facility] Comment on above: Result Comment: PERF ORMED BY: [facility] [address] [place] [address] PATHOLOGIST ASSISTANT DIRECTOR [employer] MELANIE ALMAZAN M.D. Performed By: #### G LULS #### Point of Care testing , Basophils/100 WBC (Bld) 1.1 % Normal . [facility] Comment on above: Performed By: #### G LULS #### Point of Care testing , Eosinophils (Bld) [#/Vol] 0.1 10*3/uL Normal 0.0-0.45 [facility] Comment on above: Performed By: #### G LULS #### Point of Care testing , Eosinophils/100 WBC (Bld) 2.3 % Normal . [facility] Comment on above: Performed By: #### G LULS #### Point of Care testing , Erythrocyte distribution width (RBC) [Ratio] 13.4 % Normal 11.9-15.3 [facility] Comment on above: Performed By: #### G LULS #### Point of Care testing , Hematocrit (Bld) [Volume fraction] 33.8 % Low 34.0-46.4 [facility] Comment on above: Performed By: #### G LULS #### Point of Care testing , Hemoglobin (Bld) [Mass/Vol] 11.3 g/dL Low 11.8-15.4 [facility] Comment on above: Performed By: #### G LULS #### Point of Care testing , Lymphocytes (Bld) [#/Vol] 0.7 10*3/uL Low 1.00-4.8 [facility] Comment on above: Performed By: #### G LULS #### Point of Care testing , Lymphocytes/100 WBC (Bld) 20.5 % Normal . [facility] Comment on above: Performed By: #### G LULS #### Point of Care testing , MCH (RBC) [Entitic mass] 29.7 pg Normal 24.7-34.3 [facility] Comment on above: Performed By: #### G LULS #### Point of Care testing , MCV (RBC) [Entitic vol] 88.7 fL Normal 80-100 [facility] Comment on above: Performed By: #### G LULS #### Point of Care testing , Mean Corpuscular HGB Conc 33.5 g/dL Normal 32.0-35.0 [facility] Comment on above: Performed By: #### G LULS #### Point of Care testing , Monocytes (Bld) [#/Vol] 0.4 10*3/uL Normal 0.0-0.8 [facility] Comment on above: Performed By: #### G LULS #### Point of Care testing , Monocytes/100 WBC (Bld) 12.0 % Normal . [facility] Comment on above: Performed By: #### G LULS #### Point of Care testing , Neutrophils (Bld) [#/Vol] 2.1 10*3/uL Normal 1.8-7.7 [facility] Comment on above: Performed By: #### G LULS #### Point of Care testing , Neutrophils/100 WBC (Bld) 64.1 % Normal . [facility] Comment on above: Performed By: #### G LULS #### Point of Care testing , NRBC% 0.2 /100{WBC} Normal 0-0.5 [facility] Comment on above: Performed By: #### G LULS #### Point of Care testing , Platelet mean volume (Bld) [Entitic vol] 8.9 fL Normal 6.3-10.[address] [facility] Comment on above: Performed By: #### G LULS #### Point of Care testing , Platelets (Bld) [#/Vol] 209 10*3/uL Normal 150-450 [facility] Comment on above: Performed By: #### G LULS #### Point of Care testing , RBC (Bld) [#/Vol] 3.81 10*6/uL Normal 3.60-5.[address] [facility] Comment on above: Performed By: #### G LULS #### Point of Care testing , WBC (Bld) [#/Vol] 3.3 10*3/uL Low 3.8-11.6 [facility] Comment on above: Performed By: #### G LULS #### Point of Care testing , Creatinine [Mass/volume] in Serum or PlasmaOrdered By: João Soto on 08-22-2024 Creatinine [Mass/Vol] Creatinine [Mass/v olume] in Serum or Plasma Low 0.60-1.[address] [facility] Eosinophils Auto (Bld) [#/Vo l]Ordered By: João Soto on 08-22-2024 Eosinophils (Bld) [#/Vol] Automated eosinophil count 0.0-0.[address] [facility] Eosinophils/100 WBC Auto (Bl d)Ordered By: João Soto on 08-22-2024 Eosinophils/100 WBC (Bld) Automated eosinophil % . [facility] Erythrocyte distribution wid th Auto (RBC) [Ratio]Ordered By: João Soto on 08-22-2024 Erythrocyte distribution width (RBC) [Ratio] Erythrocyte distribution width [Ratio] by Automated count 11.9-15.[address] [facility] Globulin Calc (S) [Mass/Vol] Ordered By: João Soto on 08-22-2024 Globulin (S) [Mass/Vol] Serum globulin measurement by calculation (mass/volume) [facility] Glucose [Mass/volume] in Ser um or PlasmaOrdered By: João Soto on 08-22-2024 Glucose [Mass/Vol] Glucose [Mass/volume ] in Serum or Plasma 70-[address] [facility] Hematocrit Auto (Bld) [Volum e fraction]Ordered By: João Soto on 08-22-2024 Hematocrit (Bld) [Volume fraction] Hematocrit [Volume Fraction] of Blood by Automated count Low 34.0-46.[address] [facility] Hemoglobin [Mass/volume] in BloodOrdered By: João Soto on 08-22-2024 Hemoglobin (Bld) [Mass/Vol] Hemoglobin [Mass/volume] in Blood Low 11.8-15.[address] [facility] Leukocytes [#/volume] correc venkata for nucleated erythrocytes in Blood by Automated counOrdered By: João Soto on 08-22-2024 WBC corrected for nucl RBC Auto (Bld) [#/Vol] Leukocytes [#/volume] corrected for nucleated erythrocytes in Blood by Automated coun Low 3.8-11.[address] [facility] Lymphocytes Auto (Bld) [#/Vo l]Ordered By: João Soto on 08-22-2024 Lymphocytes (Bld) [#/Vol] Lymphocytes [#/volume] in Blood by Automated count Low 1.00-4.[address] [facility] Lymphocytes/100 WBC Auto (Bl d)Ordered By: João Soto on 08-22-2024 Lymphocytes/100 WBC (Bld) Lymphocytes/100 leukocytes in Blood by Automated count . [facility] MCH Auto (RBC) [Entitic mass ]Ordered By: João Soto on 08-22-2024 MCH (RBC) [Entitic mass] MCH [Entitic mass] by Automated count 24.7-34.[address] [facility] MCHC Auto (RBC) [Mass/Vol]Or dered By: João Soto on 08-22-2024 MCHC (RBC) [Mass/Vol] MCHC [Mass/volume] by Automated count 32.0-35.[address] [facility] MCV Auto (RBC) [Entitic vol] Ordered By: João Soto on 08-22-2024 MCV (RBC) [Entitic vol] MCV [Entitic volume] by Automated count 80-[address] [facility] Monocytes Auto (Bld) [#/Vol] Ordered By: João Soto on 08-22-2024 Monocytes (Bld) [#/Vol] Automated blood monocyte count 0.0-0.[address] [facility] Monocytes/100 WBC Auto (Bld) Ordered By: João Soto on 08-22-2024 Monocytes/100 WBC (Bld) Automated monocyte % . [facility] Neutrophils Auto (Bld) [#/Vo l]Ordered By: João Soto on 08-22-2024 Neutrophils (Bld) [#/Vol] Neutrophils [#/volume] in Blood by Automated count 1.8-7.[address] [facility] Neutrophils/100 WBC Auto (Bl d)Ordered By: João Soto on 08-22-2024 Neutrophils/100 WBC (Bld) Automated neutrophil % . [facility] No Panel InformationOrdered By: João Soto on 08-22-2024 Estimated GFR (CKD-EPI) > 60.0 mL/Min [facility] Creatinine Clearance (Chem N/A [facility] Nucleated erythrocytes [Pres ence] in Blood by Automated countOrdered By: João Soto on 08-22-2024 Nucleated RBC Auto Ql (Bld) Nucleated erythrocytes [Presence] in Blood by Automated count 0-0.[address] [facility] Platelet mean volume Auto (B ld) [Entitic vol]Ordered By: João Soto on 08-22-2024 Platelet mean volume (Bld) [Entitic vol] Platelet mean volume [Entitic volume] in Blood by Automated count 6.3-10.[address] [facility] Platelets Auto (Bld) [#/Vol] Ordered By: João Soto on 08-22-2024 Platelets (Bld) [#/Vol] Platelets [#/volume] in Blood by Automated count 150-[address] [facility] Potassium [Moles/volume] in Serum or PlasmaOrdered By: João Soto on 08-22-2024 Potassium [Moles/Vol] Potassium [Moles/v olume] in Serum or Plasma 3.5-5.[address] [facility] Protein [Mass/volume] in Ser um or PlasmaOrdered By: João Soto on 08-22-2024 Protein [Mass/Vol] Protein [Mass/volume ] in Serum or Plasma Low 6.4-8.[address] [facility] RBC Auto (Bld) [#/Vol]Ordere d By: João Soto on 08-22-2024 RBC (Bld) [#/Vol] Erythrocytes [#/volu me] in Blood by Automated count 3.60-5.[address] [facility] Serum or plasma albumin/glob ulin mass ratioOrdered By: João Soto on 08-22-2024 Albumin/Globulin [Mass ratio] Serum or plasma albumin/globulin mass ratio [facility] Serum or plasma anion gap de terminationOrdered By: João Soto on 08-22-2024 Anion gap [Moles/Vol] Serum or plasma an ion gap determination Low 6.0-15.[address] [facility] Sodium [Moles/volume] in Ser um or PlasmaOrdered By: João Soto on 08-22-2024 Sodium [Moles/Vol] Sodium [Moles/volume ] in Serum or Plasma Low 136-[address] [facility] Urea nitrogen [Mass/volume] in Serum or PlasmaOrdered By: João Soto on 08-22-2024 Urea nitrogen [Mass/Vol] Urea nitrogen [Mass/volume] in Serum or Plasma 7-[address] [facility] WBC Auto (Bld) [#/Vol]Ordere d By: João Soto on 08-22-2024 WBC (Bld) [#/Vol] Leukocytes [#/volume ] in Blood by Automated count Low 3.8-11.[address] [facility] Laboratory - Hematology and Cell countson 08-21-2024 HbA1c (Bld) [Mass fraction] 5.2 % [facility] No Panel Informationon 08-21 [facility] Influenza virus B Ag [Presen ce] in Upper respiratory specimen by Rapid immunoassayon 06-07-2024 FLUBV Ag IA.rapid Ql (Nph) Influenza virus B Ag [Presence] in Upper respiratory specimen by Rapid immunoassay [facility] No Panel Informationon 06-07 Influenza Type A (Rapid) Negative [facility] POC SARS CoV-2 Antigen Negative [facility] - Hematology and Cell countson 04-24-2024 HbA1c (Bld) [Mass fraction] 5.3 % [facility] No Panel Informationon 04-24 [facility] XR knee BI 3V - NOT FOR ER U Jamar 04-23-2024 XR knee BI 3V - NOT FOR ER USE [facility] [address] [place] [address] XRay Report Signed Patient: Nata Pete MR#: [id number] : 1945 Acct:[id number] Age/Sex: 79 / F ADM Date: 04/23/24 Loc: [facility] [place] Room: Type: [facility] Attending Dr: Lisa Castillo EXTRUDER-C Copies to: ARCHANA Wilson Ordering Provider: ARCHANA [...] Alvin Newby M.D.04/23/2024 4:09 PM Dictation Location: [place] [address] Transcribed By: [facility] 04/23/24 1609 Dictated By: Alvin Newby DO 04/23/24 1606 Signed By: 04/23/24 1609 Normal [facility] XR shoulder RT min 2V*on XR shoulder RT min 2V* [facility] [address] [place] [address] XRay Report Signed Patient: Nata Pete MR#: [id number] : 1945 Acct:[id number] Age/Sex: 79 / F ADM Date: 04/23/24 Loc: [facility] [place] Room: Type: [facility] Attending Dr: Lisa Castillo EXTRUDER-C Copies to: ARCHANA Wilson Ordering Provider: ARCHANA [...] Alvin Newby M.D.04/23/2024 4:15 PM Dictation Location: [place] [address] Transcribed By: [facility] 04/23/24 1615 Dictated By: Alvin Newby DO 04/23/24 161 Signed By: 04/23/24 1615 Normal [facility] Activated partial thrombopla stin time (aPTT) in platelet poor plasma by coagulation aOrdered By: Jerry Boss on 03-10-2024 aPTT Coag (PPP) [Time] 28.7 s 25.1-36.5 [facility] Comment on above: A hematocrit value g reater than 55% may lead to inaccurate results in coagulation testing. Patients having hematocrit values >55% require a special collection tube for coagulation studies. Please contact the laboratory at [phone] for redraw instructions. Automated basophil %Ordered By: Jerry Boss on 03-10-2024 Basophils/100 WBC (Bld) 0.6 % Normal . [facility] Comment on above: Performed By: #### B MP, CBC #### [address] Automated basophil countOrde red By: Jerry Boss on 03-10-2024 Basophils (Bld) [#/Vol] 0.0 10*3/uL Normal 0.0-0.[address] [facility] Comment on above: Result Comment: PERF ORMED BY: [place] [address] PATHOLOGIST ASSISTANT DIRECTOR [employer] LAURA CAMARILLO M.D. Performed By: #### B MP, CBC #### [address] Automated blood monocyte cou ntOrdered By: Jerry Boss on 03-10-2024 Monocytes (Bld) [#/Vol] 0.4 10*3/uL Normal 0.0-0.[address] [facility] Comment on above: Performed By: #### B MP, CBC #### [address] Automated eosinophil %Ordere d By: Jerry Boss on 03-10-2024 Eosinophils/100 WBC (Bld) 1.4 % Normal . [facility] Comment on above: Performed By: #### B MP, CBC #### [address] Automated eosinophil countOr dered By: Jerry Boss on 03-10-2024 Eosinophils (Bld) [#/Vol] 0.1 10*3/uL Normal 0.0-0.[address] [facility] Comment on above: Performed By: #### B MP, CBC #### [address] Automated monocyte %Ordered By: Jerry Boss on 03-10-2024 Monocytes/100 WBC (Bld) 10.0 % Normal . [facility] Comment on above: Performed By: #### B MP, CBC #### [address] Automated neutrophil %Ordere d By: Jerry Boss on 03-10-2024 Neutrophils/100 WBC (Bld) 62.9 % Normal . [facility] Comment on above: Performed By: #### B MP, CBC #### [address] BNP ser/plasOrdered By: Jerry Boss on 03-10-2024 Natriuretic peptide B (Bld) [Mass/Vol] 167.0 pg/mL High 5-[address] [facility] Comment on above: Result Comment: PERF ORMED BY: [place] [address] PATHOLOGIST ASSISTANT [employer] LAURA CAMARILLO M.D. Performed By: #### B MP, CBC #### [address] Basic Metabolic Panelon 02-14 Creatinine Clr Calc Pharmacy 47.72 Normal [facility] Comment on above: Result Comment: PERF ORMED BY: [place] [address] PATHOLOGIST ASSISTANT [employer] LAURA CAMARILLO M.D. Performed By: #### B MP, CBC #### [place] [address] [place] GFR/1.73 sq M.predicted MDRD (S/P/Bld) [Vol rate/Area] mL/min/{1.73_m2} Normal [facility] Comment on above: Performed By: #### B MP, CBC #### [place] [address] [place] Calcium [Mass/volume] in Ser um or PlasmaOrdered By: Jerry Boss on 03-10-2024 Calcium [Mass/Vol] 8.8 mg/dL Normal 8.6-10.3 [facility] Comment on above: Performed By: #### B MP, CBC #### [place] [address] [place] Carbon dioxide, total [Moles /volume] in Serum or PlasmaOrdered By: Jerry Boss on 03-10-2024 CO2 [Moles/Vol] 27.9 mmol/L Normal 21.0-31.0 [facility] Comment on above: Performed By: #### B MP, CBC #### [address] Chloride [Moles/volume] in S ozzie or PlasmaOrdered By: Jerry Boss on 03-10-2024 Chloride [Moles/Vol] 101 mmol/L Normal 98-107 [facility] Comment on above: Performed By: #### B MP, CBC #### [address] Complete Blood Count Auto Di ffon 03-10-2024 Mean Corpuscular HGB Conc 33.5 g/dL Normal 32.0-35.0 [facility] Comment on above: Performed By: #### B MP, CBC #### [place] [address] [place] Monocytes/100 WBC (Bld) 15.95 % Normal 0.00-20.00 [facility] Comment on above: Performed By: #### B MP, CBC #### [address] NRBC% 0.0 /100{WBC} Normal 0-0.5 [facility] Comment on above: Performed By: #### B MP, CBC #### [place] [address] [place] Creatine kinase [Enzymatic a ctivity/volume] in Serum or PlasmaOrdered By: Jerry Boss on 03-10-2024 CK [Catalytic activity/Vol] 55 U/L Normal 30-[address] [facility] Comment on above: Performed By: #### B MP, CBC #### [place] [address] [place] Creatinine [Mass/volume] in Serum or PlasmaOrdered By: Jerry Boss on 03-10-2024 Creatinine [Mass/Vol] 0.47 mg/dL Low 0.60-1.20 [facility] Comment on above: Performed By: #### B MP, CBC #### [facility] [address] ECG 12 lead ECGon 03-10-2024 ECG 12 lead ECG [facility] [place] [address] [place] [address] Electrocardiograph Report Signed Patient: Nata Pete MR#: [id number] : 1945 Acct:[id number] Age/Sex: 78 / F ADM Date: 03/10/24 Loc: ER Room: Type: [facility] ER Attending Dr: Ordering Provider: Jerry Boss [...] Jerry Boss MD 03/11/24 0056 Normal [facility] Erythrocyte distribution wid th [Ratio] by Automated countOrdered By: Jerry Boss on 03-10-2024 Erythrocyte distribution width (RBC) [Ratio] 14.6 % Normal 11.9-15.[address] [facility] Comment on above: Performed By: #### B MP, CBC #### [facility] [address] [place] [address] Erythrocytes [#/volume] in B lood by Automated countOrdered By: Jerry Boss on 03-10-2024 RBC (Bld) [#/Vol] 3.93 10*6/uL Normal 3.60-5.00 [facility] Comment on above: Performed By: #### B MP, CBC #### [place] [address] Glucose [Mass/volume] in Ser um or PlasmaOrdered By: Jerry Boss on 03-10-2024 Glucose [Mass/Vol] 93 mg/dL Normal 70-100 [facility] Comment on above: ADA recommended refe rence rangeRandom Glucose Reference Range is dependent on time and content of last meal. Glucose of more than 200 mg/dL in a nonstressed, ambulatory subject supports the diagnosis of Diabetes Mellitus. Result Comment: [place] Glucose Reference Range is dependent on time and content of last meal. Glucose of more than 200 mg/dL in a nonstressed, ambulatory subject supports the diagnosis of Diabetes Mellitus. ADA recommended reference range Performed By: #### B MP, CBC #### [address] Hematocrit [Volume Fraction] of Blood by Automated countOrdered By: Jerry Boss on 03-10-2024 Hematocrit (Bld) [Volume fraction] 34.4 % Normal 34.0-46.[address] [facility] Comment on above: Performed By: #### B MP, CBC #### [address] Hemoglobin [Mass/volume] in BloodOrdered By: Jerry Boss on 03-10-2024 Hemoglobin (Bld) [Mass/Vol] 11.5 g/dL Low 11.8-15.[address] [facility] Comment on above: Performed By: #### B MP, CBC #### [address] INR in Platelet poor plasma by Coagulation assayOrdered By: Jerry Boss on 03-10-2024 INR Coag (PPP) [Relative time] 1.0 {INR} Normal [facility] Comment on above: INR Therapeutic Rang [...] Performed By: #### B MP, CBC #### [address] Leukocytes [#/volume] correc venkata for nucleated erythrocytes in Blood by Automated counOrdered By: Jerry Boss on 03-10-2024 WBC corrected for nucl RBC Auto (Bld) [#/Vol] 4.2 10*3/uL 3.8-11.[address] [facility] Leukocytes [#/volume] in Blo od by Automated countOrdered By: Jerry Boss on 03-10-2024 WBC (Bld) [#/Vol] 4.2 10*3/uL Normal 3.8-11.6 [facility] Comment on above: Performed By: #### B MP, CBC #### [place] [address] [place] Lymphocytes [#/volume] in Bl ood by Automated countOrdered By: Jerry Boss on 03-10-2024 Lymphocytes (Bld) [#/Vol] 1.1 10*3/uL Normal 1.00-4.[address] [facility] Comment on above: Performed By: #### B MP, CBC #### [place] [address] [place] Lymphocytes/100 leukocytes i n Blood by Automated countOrdered By: Jerry Boss on 03-10-2024 Lymphocytes/100 WBC (Bld) 25.1 % Normal . [facility] Comment on above: Performed By: #### B MP, CBC #### [place] [address] [place] MCH [Entitic mass] by Automa venkata countOrdered By: Jerry Boss on 03-10-2024 MCH (RBC) [Entitic mass] 29.4 pg Normal 24.7-34.[address] [facility] Comment on above: Performed By: #### B MP, CBC #### [facility] [address] MCHC Auto (RBC) [Mass/Vol]Or dered By: Jerry Boss on 03-10-2024 MCHC (RBC) [Mass/Vol] 33.5 g/dL 32.0-35.0 [facility] MCV [Entitic volume] by Auto mated countOrdered By: Jerry Boss on 03-10-2024 MCV (RBC) [Entitic vol] 87.5 fL Normal 80-[address] [facility] Comment on above: Performed By: #### B MP, CBC #### [facility] [address] [place] [address] Monocyte distribution width [Entitic volume] in Blood by AutomatedOrdered By: Jerry Boss on 03-10-2024 Monocyte distribution width Auto (Bld) [Entitic vol] 15.95 % 0.00-20.[address] [facility] Neutrophils [#/volume] in Bl ood by Automated countOrdered By: Jerry Boss on 03-10-2024 Neutrophils (Bld) [#/Vol] 2.7 10*3/uL Normal 1.8-7.[address] [facility] Comment on above: Performed By: #### B MP, CBC #### [facility] [address] [place] [address] No Panel InformationOrdered By: Jerry Boss on 03-10-2024 Estimated GFR (CKD-EPI) > 60.0 mL/Min [facility] Creatinine Clearance (Chem 47.[address] [facility] Nucleated erythrocytes [Pres ence] in Blood by Automated countOrdered By: Jerry Boss on 03-10-2024 Nucleated RBC Auto Ql (Bld) 0.0 /100{WBC} 0-0.[address] [facility] Partial Thromboplastin Timeo n 03-10-2024 aPTT Coag (Bld) [Time] 28.7 s Normal 25.1-36.5 [facility] e [facility] Comment on above: Result Comment: A he matocrit value greater than 55% may lead to inaccurate results in coagulation testing. Patients having hematocrit values >55% require a special collection tube for coagulation studies. Please contact the laboratory at [phone] for redraw instructions. PERFORMED BY: [place] [address] PATHOLOGIST ASSISTANT DIRECTOR OF [employer]IDENCE LIFE LAURA CAMARILLO M.D. Performed By: #### B MP, CBC #### [address] Platelet mean volume [Entiti c volume] in Blood by Automated countOrdered By: Jerry Boss on 03-10-2024 Platelet mean volume (Bld) [Entitic vol] 8.9 fL Normal 6.3-10.[address] [facility] Comment on above: Performed By: #### B MP, CBC #### [address] Platelets [#/volume] in Bloo d by Automated countOrdered By: Jerry Boss on 03-10-2024 Platelets (Bld) [#/Vol] 219 10*3/uL Normal 150-[address] [facility] Comment on above: Performed By: #### B MP, CBC #### [address] Potassium [Moles/volume] in Serum or PlasmaOrdered By: Jerry Boss on 03-10-2024 Potassium [Moles/Vol] 4.1 mmol/L Normal 3.5-5.1 [facility] Comment on above: Performed By: #### B MP, CBC #### [address] Prothrombin time (PT)Ordered By: Jerry Boss on 03-10-2024 PT Coag (PPP) [Time] 11.4 s Normal 9.0-12.9 [facility] Comment on above: A hematocrit value g reater than 55% may lead to inaccurate results in coagulation testing. Patients having hematocrit values >55% require a special collection tube for coagulation studies. Please contact the laboratory at [phone] for redraw instructions. Result Comment: A he matocrit value greater than 55% may lead to inaccurate results in coagulation testing. Patients having hematocrit values >55% require a special collection tube for coagulation studies. Please contact the laboratory at [phone] for redraw instructions. Performed By: #### B MP, CBC #### [facility] [address] [place] [address] Serum or plasma anion gap de terminationOrdered By: Jerry Boss on 03-10-2024 Anion gap [Moles/Vol] 8.2 mmol/L Normal 6.0-15.0 [facility] Comment on above: Performed By: #### B MP, CBC #### [facility] [address] [place] [address] Sodium [Moles/volume] in Ser um or PlasmaOrdered By: Jerry Boss on 03-10-2024 Sodium [Moles/Vol] 133 mmol/L Low 136-145 [facility] Comment on above: Performed By: #### B MP, CBC #### [address] Troponin I High Sensitivityo n 03-10-2024 Troponin I High Sensitivity 7.4 pg/mL Normal 0.0-15.0 [facility] Comment on above: Result Comment: PERF ORMED BY: [place] [address] PATHOLOGIST ASSISTANT DIRECTOR OF [employer] LAURA CAMARILLO M.D. Performed By: #### B MP, CBC #### [address] Troponin I.cardiac [Mass/vol ume] in Serum or Plasma by Detection limit <= 0.01 ng/Ordered By: Jerry Boss on 03-10-2024 Troponin I.cardiac DL <= 0.01 ng/mL [Mass/Vol] 7.4 pg/mL 0.0-15.[address] [facility] Urea nitrogen [Mass/volume] in Serum or PlasmaOrdered By: Jerry Boss on 03-10-2024 Urea nitrogen [Mass/Vol] 13 mg/dL Normal 7-[address] [facility] Comment on above: Performed By: #### B MP, CBC #### [address] XR chest 2V*on 03-10-2024 XR chest 2V* [facility] [place] [address] [place] [address] XRay Report Signed Patient: Nata Pete MR#: [id number] : 1945 Acct:[id number] Age/Sex: 78 / F ADM Date: 03/10/24 Loc: ER Room: Type: PRE ER Attending Dr: Copies to: EVELYN PROVIDER Ordering Provider: ARELI RIVAS Date of Service: [...] Shahana Pérez M.D.03/10/2024 4:19 PM Dictation Location: [place] [address] Transcribed By: [facility] 03/10/24 161 Dictated By: Shahana Pérez MD 03/10/24 161 Signed By: 03/10/24 1619 Normal [facility] Laboratory Outside Office Co pyon 10-24-2023 Laboratory Outside Office Copy [id number]#1.00TIFF Normal [facility] In office Testingon 10-18-19 24 In office Testing [id number]#1.00TIF F Normal [facility] In office Testing [id number]#1.00TIFF Normal 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 Comment on above: Result Comment: ente red correct information Performed By: #### 1 [id number] ####[facility] [address] [place] [address] Physician Orderon 10-18-2023 Physician Order [id number]#1.00TIF F Normal [facility] Physician Order [id number]#1.00TIFF Normal [facility] Consent for Surgery/Procedur e Officeon 10-17-2023 Consent for Surgery/Procedure Office [id number]#1.00TIFF Normal [facility] Consent for Treatmenton Consent for Treatment [id number]#1.00TIFF [facility] Consultation Noteon 10-17-19 Consultation Note Patient: NATA [...] states that they have been giving her Bruce 5/325 twice daily as needed pain that [...] All Problems Resolved: Hypertension / SNOMED CT 55891909 Resolved: Osteoarthritis / SNOMED CT 3926660850 Resolved: High cholesterol / SNOMED CT 8194959513 Resolved: Diabetes mellitus / SNOMED CT 692948411 Histories Past Medical History: Resolved Hypertension (65140390): Resolved. Osteoarthritis (5265009722): Resolved. High cholesterol (4407594206): Resolved. Diabetes mellitus (263817003): Resolved. Family History: Hypertension Father Brother Sister Heart disease Father Diabetes mellitus type 2 Mother Brother Stroke Mother CAD (coronary artery disease) Father Procedure history: Appendectomy (SNOMED CT 152034085). Cholecystectomy (SNOMED CT 86493926). Tonsillectomy (SNOMED CT 666180430). Repair of right hip joint (SNOMED CT 264243745373947). Osteoporotic fracture of left hip (SNOMED CT 625658440863613). Social History Social & Psychosocial Habits Alcohol 10/17/2023 Risk Assessment: Denies Alcohol Use Substance Abuse 10/17/2023 Risk Assessment: Denies Substance Abuse Tobacco 10/17/2023 Tobacco Use: Never (less than 100 in l 10/17/2023 Risk Assessment: Denies Tobacco Use . Physical Examination Vital Signs (last 24 hrs) Last Charted Heart Rate Peripheral 66 bpm (OCT 16:18) SBP 112 mmHg (OCT 16 10:18) DBP 64 mmHg (OCT 16 10:18) Weight 59 kg (OCT 16:18) BMI 27.68 (OCT 16:18) General: Alert and oriented, No acute distress. HENT: Normocephalic, Normal hearing. Respiratory: Respirations are non-labored. Cardiovascular: No edema. Musculoskeletal Normal range of motion. Normal strength. Slight pain with movement of the right shoulder and the right knee but fairly normal range of motion. Neurologic: Alert, Oriented. Cognition and Speech: Oriented, Speech clear and coherent. Psychiatric: Cooperative, Appropriate mood & affect. Integumentary: Warm, Dry, [place]. Review / Management Results review: No qualifying [...] right knee done (more content not included)... [facility] Comment on above: Result Comment: Elec tronically Signed By: Kaci Morton PA-C\.br\Date and Time Signed: 10/17/23 11:44 EDT HIPAA Forms Officeon 024 HIPAA Forms Office [id number]#1.00TIFF [facility] Legal Correspondence Officeo n 10-17-2023 Legal Correspondence Office [id number]#1.00TIFF [facility] Legal Correspondence Office [id number]#1.00TIFF [facility] Office/Clinic Note-Physician on 10-17-2023 Office/Clinic Note-Physician [id number]#1.00TIFF Normal [facility] Patient Correspondenceon Patient Correspondence [id number]#1.00TIFF Normal [facility] Patient Correspondence [id number]#1.00TIFF Normal [facility] Patient Correspondence [id number]#1.00TIFF Normal [facility] Patient Correspondence [id number]#1.00TIFF Normal [facility] Patient Correspondence [id number]#1.00TIFF Normal [facility] Patient History Officeon Patient History Office [id number]#1.00TIFF Normal [facility] Radiology Outside Office [employer] Editor yon 10-17-2023 Radiology Outside Office Copy [id number]#1.00TIFF Normal [facility] Reference Laboratory Testing Ordered By: Carlie Ernst on 10-17-2023 Test Name Compliance drug Invalid Interpretation Code [facility] SendOutsSS C Urineon 10-03-2023 Bacteria identified Cx [...] Locations R1: This test was performed at: [facility], [address] [place] [address], [address]- , , [facility] Comment on above: Performed By: #### 1 [id number], [id number] ####[facility] [address] [place] [address] Consent for Treatmenton 09-13 Consent for Treatment [id number]#1.00TIFF Normal [facility] Discharge Instructionson Discharge Instructions [id number]#1.00TIFF Normal [facility] ED Clinical Summaryon 2023 ED Clinical Summary (Inserted Image. Angelique ble to display) [address] [address] ED Clinical Summary Person Information Name: NATA PETE Dora/[facility] Age: 78 Years : 1945 Sex: Female Language: Polish PCP: Aisha RAGLAND PA-C Marital Status: Phone: [phone] Visit Id: Visit Reason: Urinary frequency; POSS [...] 10/01/2023 06:38:15 10/01/2023 06:38:15 10/01/2023 06:38:15 ADDRESS: [address] [place] [id number] PHYS DOC NOTES: MEDICAL INFORMATION: Prescriptions Given: New Medications [facility]/pharmacy #[id number], [address], [place] [id number], [phone] cephalexin (Keflex 500 mg Cap) 1 Capsules [...] Follow up: With: Address: When: [place] [address] Business (1) In 3 days DIAGNOSIS: Acute UTI Normal [facility] ED Note-Physicianon 10-01-19 ED Note-Physician Basic Information Time Seen: Dillon Hurtado DO 10/01/2023 05:17 Chief Complaint complains of urinary [...] and Complexity of Problems Differential Diagnosis: [] [facility] Data External documents reviewed: N/A My [...] day(s), # 14 cap(s), Refills(s) 0, Pharmacy: [facility]/pharmacy #[id number], 175, cm, 10/01/23 5:36:00 EDT, Height/Length Dosing, 55, kg, 10/01/23 5:36:00 EDT, Weight Dosing cephalexin, 500 mg = 1 cap(s), Cap, Oral, Once, Stop date 10/01/23 6:24:00 EDT, STAT, Start date 10/01/23 6:24:00 EDT, 10/01/23 6:24:00 EDT phenazopyridine, 100 mg = 1 tab(s), Oral, TID, X 3 day(s), # 9 tab(s), Refills(s) 0, Pharmacy: [facility]/pharmacy #[id number], 175, cm, 10/01/23 5:36:00 EDT, Height/Length Dosing, 55, kg, 10/01/23 5:36:00 EDT, Weight Dosing UA With Cult Reflex Urine Culture Disposition Plan Discharge Prescription List Prescriptions Keflex 500 mg Cap, 500 mg= 1 cap(s), Oral, q12hr Pyridium 100 mg Tab, 100 mg= 1 tab(s), Oral, TID Follow-up With When Contact Information Aisha RAGLAND In 3 days [address] [place] [address] Business (1) Additional Instructions: Patient Education Urinary [...] (more content not included)... Normal [facility] Comment on above: Result Comment: Elec [...] this condition includes: ? Antibiotic medicine. ? Fhei-lth-cdoexor medicines to treat discomfort. ? Drinking enough [...] these instructions at home: Medicines ? Take fxoa-gts-jpfpycs and prescription medicines only as told by [...] (more content not included)... Normal [facility] ED Patient Summaryon 024 ED Patient Summary (Inserted Image. Angelique ble to display) [address] [address] Patient Discharge Instructions Person Information Name: NATA PETE Age: 78 Years Arrival Date: 10/01/2023 05:14:21 Discharge Diagnosis: Acute UTI Primary Care Physician: Aisha RAGLAND PA-C Provider Information Primary Provider: Dillon Hurtado DO [employer] Worker:Trinity The exam and treatment you received in the Emergency Department were for an urgent problem and are not intended as complete care. It is important that you follow up with a doctor, nurse practitioner, or physician?s medical receptionist medical assistant for ongoing care. If your symptoms become worse or you do not improve as expected and you are unable to reach your usual health care provider, you should return to the Emergency Department. We are available 24 hours a day. NATA PETE has been given the following list of patient education materials, prescriptions and follow-up instructions: Follow-up Instructions: With: Address: When: Aihsa RAGLAND [address] [place] [address] Business (1) In 3 days In the event that this physician does not participate in your insurance network, please consult with your insurance company to find a nearby participating provider. Patient Education Materials: Urinary Tract Infection, Adult A MESSAGE TO ALL PATIENTS REGARDING OPIOIDS PRESCRIPTION OPIOIDS: WHAT YOU NEED TO KNOW Prescription opioids can be used to help relieve ladtcqil-nv-dgzhxv pain and are often prescribed following a [...] be struggling with addiction, tell your health day care home mother and ask for guidance or call [facility]?S National Helpline at 1-715-718-IQSJ. o Source: Department of [facility] (more content not included)... Normal [facility] UA With Cult Reflexon 2023 Bilirubin Ql (U) Negative Normal Negative [facility] Comment on above: Performed By: #### 1 [id number], [id number] ####[facility] [address] [place] [address] Clarity (U) CLOUDY Abnormal Clear [facility] Comment on above: Performed By: #### 1 [id number], 5434078 ####[facility] [address] [place] [address] Color (U) RED Abnormal Yellow [facility] Comment on above: Performed By: #### 1 8501581, [id number] ####[facility] [address] [place] [address] Epithelial cells.squamous LM.HPF (Urine sed) [#/Area] 0-2 Normal 0-2 [facility] Comment on above: Performed By: #### 1 5445510, [id number] ####[facility] [address] [place] [address] Glucose Test strip (U) [Mass/Vol] Negative Normal Negative [facility] Comment on above: Performed By: #### 1 8955553, 9888005 ####[facility] [address] [place] [address] Hemoglobin Ql (U) 3+ Abnormal Negative [facility] Comment on above: Performed By: #### 1 4522524, 3691630 ####[address] [address] Ketones (U) [Mass/Vol] 1+ Abnormal Negative [facility] Comment on above: Performed By: #### 1 7521531, 9851598 ####[address] [address] [place].plasma/[place] .RBC (Bld) [Mass ratio] >75 Abnormal 0-[address] [facility] Comment on above: Performed By: #### 1 5476599, 2570185 ####[address] [address] Nitrite Ql (U) Positive Abnormal Negative [facility] Comment on above: Performed By: #### 1 1182935, 1973124 ####[address] [address] pH (U) 7.0 [pH] Invalid Interpretation Code 5.0-9.[address] [facility] Comment on above: Performed By: #### 1 3674809, 5821479 ####[address] [address] Protein (U) [Mass/Vol] 2+ Abnormal Negative [facility] Comment on above: Performed By: #### 1 8394641, 2024566 ####[address] [address] Specific gravity (U) [Rel density] 1.020 Invalid Interpretation Code 1.005-1.[address] [facility] Comment on above: Performed By: #### 1 1207543, 6632755 ####[address] [address] Type of Urine collection method Clean Catch Normal [facility] Comment on above: Performed By: #### 1 [id number], 5106580 ####[facility] [address] [place] [address] Urobilinogen Qn (U) 0.2 {Otilia'U}/dL Normal 0.0-1.[address] [facility] Comment on above: Performed By: #### 1 2906972, 6803294 ####[facility] [address] [place] [address] WBC Auto Ql (U) 2+ Abnormal Negative [facility] Comment on above: Performed By: #### 1 7329922, 5229498 ####[place] [address] WBC LM.HPF (Urine sed) [#/Area] /[HPF] Abnormal 0-[address] [facility] Comment on above: Performed By: #### 1 6043462, 0450661 ####[facility] [address] [place] [address] URINALYSISOrdered By: Mahsa Moses on 10-01-2023 Bilirubin Ql (U) Negative (10/01/23 5:37 AM) Normal Negative FT UA Auto SS Clarity (U) Cloudy *ABN* [...] Interpretation Code Negative [facility] UA Auto SS [place].plasma/[place] .RBC (Bld) [Mass ratio] >75 /HPF Invalid Interpretation Code 0-3/HPF FT UA Auto SS Nitrite Ql (U) Positive *ABN* (10/01/23 5:37 AM) Invalid Interpretation Code Negative [facility] UA Auto SS pH (U) 7.0 *NA* (10/01/23 5:37 AM) Invalid Interpretation Code 5.0 - 9.0 [facility] UA Auto SS Protein (U) [Mass/Vol] 2+ *ABN* (10/01/23 5:37 AM) Invalid Interpretation Code Negative [facility] UA Auto SS Specific gravity (U) [Rel density] 1.020 *NA* (10/01/23 5:37 AM) Invalid Interpretation Code 1.005 - 1.030 [facility] UA Auto SS UA Spec Desc Clean Catch (10/01/23 5:37 AM) Normal [facility] UA Auto SS Urobilinogen Qn (U) 0.3337007 {Otilia'U}/dL Normal 0.0 - 1.0 EU/dL [facility] UA Auto SS WBC Auto Ql (U) 2+ *ABN* (10/01/23 5:37 AM) Invalid Interpretation Code Negative [facility] UA Auto SS WBC LM.HPF (Urine sed) [#/Area] /[HPF] Invalid Interpretation Code 0-5/HPF [facility] UA Auto SS Outside Records Officeon Outside Records Office [id number]#1.00TIF F [facility] Outside Records Officeon Outside Records Office [id number]#1.00TIFF Normal [facility] Referrals Officeon Referrals Office [id number]#1.00TIFF [facility] Microalbumin/Creatinine rati o panel (U)on 08-16-2023 Albumin DL <= 20 mg/L (U) [Mass/Vol] mg/dL See Note: mg/dL [facility] Comment on above: Reference Range: Reference Range Not established Albumin/Creatinine (U) [Mass ratio] NOTE [facility] Comment on above: NOTE: The urine [...] 18 mg/dL Low 20 - 275 mg/dL [facility] Interpretation and review of laboratory results Abnormal [facility] Performing Organizat ion Information Site ID: QPT Name: [facility] [facility] Address: [address] [place] [address], [address] [place] [id number] Director: Willie Rodriguez MD [facility] - Hematology and Cell countson 08-14-2023 HbA1c (Bld) [Mass fraction] 5.2 % [facility] No Panel Informationon 08-14 Interpretation and review of laboratory results Normal [facility] XR shoulder RT min 2V*on XR shoulder RT min 2V* [facility] [employer] Other XR shoulder RT min 2V* [facility] [employer] Other XR shoulder RT min 2V* [address] [place] [address] [employer] Other XR shoulder RT min 2V* [place] [address] [employer] Other XR shoulder RT min 2V* XRay Report N [facility] [employer] Other XR shoulder RT min 2V* Signed No [employer] Other XR shoulder RT min 2V* Patient: Nata Pete MR#: [id number] [employer] Other XR shoulder RT min 2V* [id number] No [employer] Other XR shoulder RT min 2V* : 1945 Acct:[id number] [employer] Other XR shoulder RT min 2V* Age/Sex: 77 / F A DM Date: 09/13/22 [employer] Other XR shoulder RT min 2V* Loc: SOXD Room: T ype: [facility] [employer] Other XR shoulder RT min 2V* Attending Dr: Hugo Soto DO [employer] Other XR shoulder RT min 2V* Copies to: João Soto DO [employer] Other XR shoulder RT min 2V* Ordering Provider : João Soto DO [employer] Other XR shoulder RT min 2V* Date of Service: 09/13/22 [employer] Other XR shoulder RT min 2V* XR/XR shoulder RT min 2V*: Acute pain of right shoulder [employer] Other XR shoulder RT min 2V* RIGHT SHOULDER - - 3 views [employer] Other XR shoulder RT min 2V* CLINICAL HISTORY: Right shoulder pain for years. [employer] Other XR shoulder RT min 2V* COMPARISON: None [employer] Other XR shoulder RT min 2V* FINDINGS: No [employer] Other XR shoulder RT min 2V* Severe degenerati ve changes right humeral joint. Mild degenerative changes right AC joint. No acute [employer] Other XR shoulder RT min 2V* bony process. [employer] Other XR shoulder RT min 2V* 4 XR/XR shoulder RT min 2V* [employer] Other XR shoulder RT min 2V* IMPRESSION: N [employer] Other XR shoulder RT min 2V* DEGENERATIVE WHITE GES INVOLVING THE RIGHT SHOULDER WITHOUT ACUTE BONY PROCESS. [employer] Other XR shoulder RT min 2V* Impression dictat ed by: Dedrikc Arroyo Jr., JoelOKiara09/13/2022 4:36 PM [employer] Other XR shoulder RT min 2V* Dictation Locatio n: RADIO-PC-04 [employer] Other XR shoulder RT min 2V* Transcribed By: Carolin RODRIGUEZ 09/13/22 1636 [employer] Other XR shoulder RT min 2V* Dictated By: Catracho Arroyo Jr, DO 09/13/22 [facility]5 [employer] Other XR shoulder RT min 2V* Signed By: No rt [employer] Other XR shoulder RT min 2V* 09/13/22 [facility]6 [employer] Other MG MAMM SCREEN 3D LISA CADon 02-23-2022 MG MAMM SCREEN 3D LISA CAD Patient: NATA PETE Exam Date: 02/23/2022 : 1945 Gender:F Ordering : MRS. AISHA RAGLAND Admission #: [id number] Family : Order #: [id number] CLICK HERE TO VIEW EXAM RADIOLOGY REPORT [...] breast cancer at age 72. LOCATION: [facility] BREAST COMPOSITION: Scattered areas fibroglandular [...] Burk MD on 02/24/2022 at 08:28 Normal [facility] XR knee BI 3Von 10-05-2021 XR knee BI 3V [facility] [employer] Other XR knee BI 3V [facility] [employer] Other XR knee BI 3V 1111 [facility] [employer] Other XR knee [place] [address] [facility] [employer] Other XR knee BI 3V XRay Report [facility] Other XR knee BI 3V Signed [employer] Other XR knee BI 3V Patient: Moncho Pete MR#: [id number] [place] [employer] Other XR knee BI 3V [id number] [employer] Other XR knee BI 3V : 1945 Acct:[id number] [place] [employer] Other XR knee BI 3V Age/Sex: 76 / F ADM Date: 10/05/21 [employer] Other XR knee BI 3V Loc: SOXD Room: Type : [facility] [employer] Other XR knee BI 3V Attending Dr: João Soto DO [employer] Other XR knee BI 3V Ordering Provider: Li Soto DO [employer] Other XR knee BI 3V Date of Service: 10/05/21 [employer] Other XR knee BI 3V XR/XR knee BI 3V - NOT FOR ER USE: Pain in right knee;Pain in left knee [employer] Other XR knee BI 3V Copies to: João Soto DO [employer] Other XR knee BI 3V BILATERAL KNEES - 3 views each [employer] Other XR knee BI 3V COMPARISON: 07/20/2020 right knee. [employer] Other XR knee BI 3V CLINICAL DATA: Bilat eral generalized knee pain and difficulty ambulating. No injury. [employer] Other XR knee BI 3V Standing AP, lateral and sunrise views were obtained. There is osteopenia. No acute fractures or [employer] Other XR knee BI 3V dislocation are note d. There is medial subluxation of the femur with respect to the tibia on both [employer] Other XR knee BI 3V sides. There is also lateral subluxation of the patella bilaterally. There is moderate joint space [employer] Other XR knee BI 3V narrowing at these s ites. There is also narrowing at the lateral compartments. [employer] Other XR knee BI 3V marginal spurring is seen. There is a trace amount of joint fluid. No focal soft tissue swelling is [employer] Other XR knee BI 3V noted. [employer] Other XR knee BI 3V X R/XR knee BI 3V - NOT FOR ER USE [employer] Other XR knee BI 3V IMPRESSION: [place] [employer] Other XR knee BI 3V OSTEOPENIA AND ADVAN DONN DEGENERATIVE CHANGES. [employer] Other XR knee BI 3V Impression dictated by: Shahana Pérez M.D.10/05/2021 2:58 PM [employer] Other XR knee BI 3V Dictation Location: [place] [address] [employer] Other XR knee BI 3V Transcribed By: HIMA 10/05/21 1458 [employer] Other XR knee BI 3V Dictated By: Shahana Pérez MD 10/05/21 1456 [employer] Other XR knee BI 3V Signed By: [employer] Other XR knee BI 3V 10/05/21 1450 [employer] Other Q - COMPREHENSIVE METABOLIC PANEL W/EGFRon 09-30-2021 Albumin [Mass/Vol] 4.0 g/dL Normal 3.6-5.1 [facility] Comment on above: Order Comment: [facility] Testing performed at: [facility], [address] [place] [address], [address] [place] [address], [address] [place] [address], Drum Printer: Willie Rodriguez MD [facility] Collection Date/Time: [facility] Results Received Date/Time: [facility] Reported Date/Time: FASTING: NO Performed By: #### 1 [id number] #### [facility] Default [address] [place] [address] Albumin/Globulin [Mass ratio] 2.4 {ratio} Normal 1.0-2.5 [facility] Software Developer Comment on above: Order Comment: [facility] performed at: [employer] [facility], [address] [place] [address], [address] [place] [address], [address] [place] [address], Drum Printer: Willie Rodriguez MD [facility] Collection Date/Time: [facility] Results Received Date/Time: [facility] Reported Date/Time: FASTING: NO Performed By: #### 1 [id number] #### [facility] [address] [place] [address] ALP [Catalytic activity/Vol] 68 U/L Normal 37-153 [facility] Software Developer Comment on above: Order Comment: [facility] performed at: [employer] [facility], [address] [place] [address], [address] [place] [address], [id number], Drum Printer: Willie Rodriguez MD [facility] Collection Date/Time: [facility] Results Received Date/Time: [facility] Reported Date/Time: FASTING: NO Performed By: #### 1 [id number] #### [facility] [address] [place] [address] ALT [Catalytic activity/Vol] 8 U/L Normal 6-29 [facility] Comment on above: Order Comment: [facility] Testing performed at: [facility] [employer] [facility], [address] [place] [address], [address] [place] [address], [address] [place] [address], Drum Printer: Willie Rodriguez MD [facility] Collection Date/Time: [facility] Results Received Date/Time: [facility] Reported Date/Time: FASTING: NO Performed By: #### 1 [id number] #### [facility] [address] [place] [address] AST [Catalytic activity/Vol] 12 U/L Normal 10-35 [facility] Comment on above: Order Comment: [facility] Testing performed at: [facility] [employer] [facility], [address] [place] [address], [address] [place] [address], [address] [place] [address], Drum Printer: Willie Rodriguez MD [facility] Collection Date/Time: [facility] Results Received Date/Time: [facility] Reported Date/Time: FASTING: NO Performed By: #### 1 [id number] #### [facility] [address] [place] [address] Bilirubin [Mass/Vol] 0.4 mg/dL Normal 0.2-1.2 [facility] Comment on above: Order Comment: [facility] Testing performed at: [place] [employer] [facility], [facility], [address] [place] [address], [address] [place] [address], Drum Printer: Willie Rodriguez MD [facility] Collection Date/Time: [facility] Results Received Date/Time: [facility] Reported Date/Time: FASTING: NO Performed By: #### 1 [id number] #### [facility] [address] [place] [address] Calcium [Mass/Vol] 9.8 mg/dL Normal 8.6-10.4 [facility] Software Developer Comment on above: Order Comment: [facility] Testing performed at: [place] [employer] [facility], [address] [place] [address], [address] [place] [address], [address] [place] [address], Drum Printer: Willie Rodriguez MD [facility] Collection Date/Time: [facility] Results Received Date/Time: [facility] Reported Date/Time: FASTING: NO Performed By: #### 1 [id number] #### [facility] [address] [place] [address] Chloride [Moles/Vol] 96 mmol/L Low 98-110 [facility] Specialist Comment on above: Order Comment: [facility] Testing performed at: [place], [address] [place] [address], [address] [place] [address], [address] [place] [address], Drum Printer: Willie Rodriguez MD [facility] Collection Date/Time: [facility] Results Received Date/Time: [facility] Reported Date/Time: FASTING: NO Performed By: #### 1 [id number] #### [facility] [address] [place] [address] CO2 [Moles/Vol] 28 mmol/L Normal 20-32 [facility] Specialist Comment on above: Order Comment: [facility] Testing performed at: [facility] [employer] [facility], [address] [place] [address], [address] [place] [address], [address] [place] [address], Drum Printer: Willie Rodriguez MD [facility] Collection Date/Time: [facility] Results Received Date/Time: [facility] Reported Date/Time: FASTING: NO Performed By: #### 1 [id number] #### [facility] [address] [place] [address] Creatinine [Mass/Vol] 0.43 mg/dL Low 0.60-0.93 [facility] Software Developer Comment on above: Order Comment: [facility] Testing performed at: [facility] [employer] [facility], [address] [place] [address], [address] [place] [address], [address] [place] [address], Drum Printer: Willie Rodriguez MD [facility] Collection Date/Time: [facility] Results Received Date/Time: [facility] Reported Date/Time: FASTING: NO Result Comment: For patients >49 years of age, the reference limit for Creatinine is approximately 13% higher for people identified as -Belgian. Performed By: #### 1 [id number] #### [facility] Default [address] [place] [address] eGFRAA (Quest) 116 mL/min/1.73m2 Normal > OR = 60 [place] Software Developer Comment on above: Order Comment: [facility] Testing performed at: [facility] [employer] [facility], [address] [place] [address], [address] [place] [address], [address] [place] [address], Drum Printer: Willie Rodriguez MD [facility] Collection Date/Time: [facility] Results Received Date/Time: [facility] Reported Date/Time: FASTING: NO Performed By: #### 1 [id number] #### [facility] Default [address] [place] [address] eGFRNAA ([facility]) 100 mL/min/1.73m2 Normal > OR = 60 [facility] Software Developer Comment on above: Order Comment: [facility] Testing performed at: [place], [address] [place] [address], [address] [place] [address], [address] [place] [address], Drum Printer: Willie Rodriguez MD [facility] Collection Date/Time: [facility] Results Received Date/Time: [facility] Reported Date/Time: FASTING: NO Performed By: #### 1 [id number] #### [facility] [address] [place] [address] Globulin (S) [Mass/Vol] 1.7 g/dL Low 1.9-3.7 [facility] Software Developer Comment on above: Order Comment: [facility] Testing performed at: [place], [address] [facility], [address] [place] [address], [address] [place] [address], Drum Printer: Willie Rodriguez MD [facility] Collection Date/Time: [facility] Results Received Date/Time: [facility] Reported Date/Time: FASTING: NO Performed By: #### 1 [id number] #### [facility] Default [address] [place] [address] Glucose [Mass/Vol] 98 mg/dL Normal 65-139 St[facility] [place] Software Developer Comment on above: Order Comment: [facility] Testing performed at: [facility] [employer] [facility], [address] [facility], [address] [place] [address], [address] [place] [address], Drum Printer: Willie Rodriguez MD [facility] Collection Date/Time: [facility] Results Received Date/Time: [facility] Reported Date/Time: FASTING: NO Result Comment: Non-fasting reference interval Performed By: #### 1 [id number] #### [facility] [address] [place] [address] Potassium [Moles/Vol] 4.7 mmol/L Normal 3.5-5.3 Damian bull [place] Software Developer Comment on above: Order Comment: [facility] Testing performed at: [facility] [employer] [facility], [address] [place] [address], [address] [place] [address], [address] [place] [address], Drum Printer: Willie Rodriguez MD [facility] Collection Date/Time: [facility] Results Received Date/Time: [facility] Reported Date/Time: FASTING: NO Performed By: #### 1 [id number] #### [facility] Default [address] [place] [address] Protein [Mass/Vol] 5.7 g/dL Low 6.1-8.1 [facility] Software Developer Comment on above: Order Comment: [facility] Testing performed at: [facility] [employer] [facility], [address] [facility], [address] [place] [address], [address] [place] [address], Drum Printer: Willie Rodriguez MD [facility] Collection Date/Time: [facility] Results Received Date/Time: [facility] Reported Date/Time: FASTING: NO Performed By: #### 1 0231A #### [facility] Default [address] [place] [address] Sodium [Moles/Vol] 130 mmol/L Low 135-146 [facility] Comment on above: Order Comment: [facility] Testing performed at: [facility], [address] [place] [address], [address] [place] [address], [address] [place] [address], Drum Printer: Willie Rodriguez MD [facility] Collection Date/Time: [facility] Results Received Date/Time: [facility] Reported Date/Time: FASTING: NO Performed By: #### 1 [id number] #### [facility] [address] [place] [address] Urea nitrogen [Mass/Vol] 14 mg/dL Normal 7-25 [facility] Comment on above: Order Comment: [facility] Testing performed at: [facility], [facility], [address] [place] [address], [address] [place] [address], [address] [place] [address], Drum Printer: Willie Rodriguez MD [facility] Collection Date/Time: [facility] Results Received Date/Time: [facility] Reported Date/Time: FASTING: NO Performed By: #### 1 0231A #### [facility] Default [address] [place] [address] Urea nitrogen/Creatinine [Mass ratio] 33 mg/mg High 6-22 [facility] Comment on above: Order Comment: [facility] Testing performed at: [facility] [facility], [address] [facility], [address] [place] [address], [address] [place] [address], Drum Printer: Willie Rodriguez MD [facility] Collection Date/Time: [facility] Results Received Date/Time: [facility] Reported Date/Time: FASTING: NO Performed By: #### 1 [id number] #### [facility] Default [address] [place] [address] PROF 14(COMP METB)on 021 Albumin [Mass/Vol] 3.6 g/dL Normal 3.5-5.0 [facility] Comment on above: Performed By: #### C MP #### [facility] [address] [place], [place] [address] [place] Albumin/Globulin [Mass ratio] 1.3 {ratio} Normal [facility] Comment on above: Performed By: #### C MP #### [facility] [address] [place] [phone] [place] ALP [Catalytic activity/Vol] 57 U/L Normal 38-126 [facility] Comment on above: Performed By: #### C MP #### [facility] [address] [place] [phone] [place] ALT [Catalytic activity/Vol] 16 U/L Normal 9-52 [facility] Comment on above: Performed By: #### C MP #### [facility] [address] [place], [place] [address] [place] Anion gap [Moles/Vol] 9.4 mmol/L Normal [facility] Comment on above: Performed By: #### C MP #### [facility] [address] [place] [address] [place] AST [Catalytic activity/Vol] 14 U/L Normal 14-36 [facility] Comment on above: Performed By: #### C MP #### [facility] [address] [place], [place] [address] [place] Bilirubin [Mass/Vol] 0.4 mg/dL Normal 0.2-1.3 [facility] Comment on above: Performed By: #### C MP #### [facility] [address] [place], [place] [address] [place] Calcium [Mass/Vol] 9.1 mg/dL Normal 8.4-10.2 [facility] Comment on above: Performed By: #### C MP #### [facility] [address] [place], [place] [address] [place] Chloride [Moles/Vol] 102 mmol/L Normal 98-107 [facility] Comment on above: Performed By: #### C MP #### [facility] [address] [place], [place] [address] [place] CO2 [Moles/Vol] 28.8 mmol/L Normal 22.0-30.0 [facility] Comment on above: Performed By: #### C MP #### [facility] [address] [place] [address] [place] Creatinine [Mass/Vol] 0.53 mg/dL Normal 0.52-1.04 [facility] Comment on above: Performed By: #### C MP #### [facility] [address] [place] [address] [place] EGFR-AF MONTSERRATIAN >60 Normal >=60 [facility] Comment on above: Performed By: #### C MP #### [facility] [address] [place] [address] [place] EGFR-NON AF MONTSERRATIAN >60 Normal >=60 [facility] Comment on above: Performed By: #### C MP #### [facility] [address] [place] [address] [place] Globulin (S) [Mass/Vol] 2.7 g/dL Normal [facility] Comment on above: Performed By: #### C MP #### [facility] [address] [place] [address] [place] Glucose [Mass/Vol] 98 mg/dL Normal 74-106 [facility] Comment on above: Performed By: #### C MP #### [facility] [address] [place] [address] [place] Potassium [Moles/Vol] 4.2 mmol/L Normal 3.4-5.0 [facility] Comment on above: Performed By: #### C MP #### [facility] [address] [place] [address] [place] Protein [Mass/Vol] 6.3 g/dL Normal 6.1-8.2 [facility] Comment on above: Performed By: #### C MP #### [facility] [address] [place] [address] [place] Sodium [Moles/Vol] 136 mmol/L Critically low 137-145 [facility] Comment on above: Performed By: #### C MP #### [facility] [address] [place], [place] [address] [place] Urea nitrogen [Mass/Vol] 15.0 mg/dL Normal 7.0-17.0 [facility] Comment on above: Performed By: #### C MP #### [facility] [address] [place], [place] [address] [place] Urea nitrogen/Creatinine [Mass ratio] 28.3 mg/mg Normal [facility] Comment on above: Performed By: #### C MP #### [facility] [address] [place], [place] [address] [place] CNOVSPon 11-07-2017 CNOVSP Visit (SP) Office ([place]) MAYDA PETE ([id number]) 1945 FDate Time Provider Department11/07/17 3:00 PM [...] STRESS FORMULA ORAL) Take by mouth.Green Tea [place] Extract (GREEN TEA) cap Take by mouth.DIPHENHYDRAMINE [...] lb 12.8 oz) SpO2 100% BMI 29.79 kg/m7MDGSIJIR EXAMINATIONGeneral: Alert and oriented, no distress, pleasant [...] and RTC if abnormality recurs/persists or otherabnormality developsAlfred LESVIA Velizeferring Provider: WAYNE PAULA [[id number]]Allergies As of Date: 11/07/2017 Noted Allergy ReactionBEES [...] SunNov 07, 2017 3:00 PM Received from: [facility] CHOLECALCIFEROL (VITAMIN D3) 1,000 UNIT TABLET >> Caprice Mendoza 11/07/2017 3:00 PM >> CAPRICE MENDOZA SunNov 07, 2017 3:00 PM Received from: [facility] VITAMIN B-12 ORAL >> Caprice [place] 11/07/2017 3:01 PM >> CAPRICE MENDOZA SunNov 07, 2017 3:01 PM Received from: [facility] FISH OIL ORAL >> Caprice Mendoza 11/07/2017 3:01 PM >> CAPRICE MENDOZA SunNov 07, 2017 3:01 PM Received from: [facility] ATENOLOL 50 MG TABLET >> Caprice Mendoza 11/07/2017 3:02 PM >> CAPRICE MENDOZA [facility] Nov 07, 2017 3:02 PM Received from: [facility] LISINOPRIL 20 MG TABLET >> Caprice Mendoza 11/07/2017 3:02 PM >> CAPRICE MENDOZA SunNov 07, 2017 3:02 PM Received from: [facility] VITAMIN C ORAL >> Caprice Mendoza 11/07/2017 3:00 PM >> CAPRICE MENDOZA [facility] Nov 07, 2017 3:00 PM [facility] As Of Date 11/07/2017 Noted Resolved Lymphopenia [D72.810] INVALID FOR*Encounter Status:Closed by WYANE PAULA MD on 11/12/17 Normal [facility] Comp Metabolic Panelon 11-07 Alanine aminotransferase (ALT) 17 U/L Normal 7-38 [facility] Comment on above: Performed By: #### L D6, CMP ####[facility] [id number] [place], [place] [phone] Albumin 4.1 g/dL Normal 3.9-4.9 [facility] Comment on above: Performed By: #### L D6, CMP ####[facility] [address] [place], [place] [phone] Alkaline phosphatase (ALP) 48 U/L Normal 32-117 [facility] Comment on above: Performed By: #### L D6, CMP ####[place] [address] [address] [phone] Anion gap 12 mmol/L Normal 9-18 [facility] Comment on above: Performed By: #### L D6, CMP ####[place] [address] [address] [phone] Aspartate aminotransferase (AST) 20 U/L Normal 13-35 [facility] Comment on above: Performed By: #### L D6, CMP ####[place] [address] [address] [phone] Bilirubin (total) 0.3 mg/dL Normal 0.2-1.3 [facility] Comment on above: Performed By: #### L D6, CMP ####[place] [address] [address] [phone] Calcium 9.0 mg/dL Normal 8.5-10.2 [facility] Comment on above: Performed By: #### L D6, CMP ####[place] [address] [address] [phone] Chloride 100 mmol/L Normal 97-105 [facility] Comment on above: Performed By: #### L D6, CMP ####[place] [address] [address] [phone] CO2 27 mmol/L Normal 22-30 [facility] Comment on above: Performed By: #### L D6, CMP ####[place] [address] [address] [phone] Creatinine 0.62 mg/dL Normal 0.58-0.96 [facility] Comment on above: Performed By: #### L D6, CMP ####[place] [address] [address] [phone] eGFR (non-black) mL/min/{1.73_m2} Normal [facility] Comment on above: Result Comment: eGFR (Estimated [...] GFR. Performed By: #### L D6, CMP ####[facility] [place], [place] [phone] Glucose mass conc 92 mg/dL Normal 74-99 [facility] Comment on above: Result Comment: The [place] Diabetes Association (ADA) provides guidance for cutoff [...] Standards of Medical Care in Diabetes 2016, [place] Diabetes Association. Diabetes Care. 2016.39(Suppl 1). Performed By: #### L D6, CMP ####[facility] [address] [place], [place] [phone] Potassium molar conc 4.4 mmol/L Normal 3.7-5.1 [facility] [facility] Comment on above: Performed By: #### L D6, CMP ####[id number] [place], [place] [phone] Protein 6.4 g/dL Normal 6.3-8.0 [facility] Comment on above: Performed By: #### L D6, CMP ####[facility] [address] [place], [place] [phone] Sodium 139 mmol/L Normal 136-144 [facility] Comment on above: Performed By: #### L D6, CMP ####[id number] [place], [place] [phone] Urea nitrogen 15 mg/dL Normal 7-21 [facility] Comment on above: Performed By: #### L D6, CMP ####[id number] [place], [place] [phone] LDon 11-07-2017 LD 166 U/L Normal 135-214 [facility] Comment on above: Performed By: #### L D6, CMP ####[id number] [place], [place] [phone] PROGRESSon 11-07-2017 PROGRESS HNO ID: [id number] thor: Wayne Malave: (none)Author Type: PhysicianType: Progress [...] STRESS FORMULA ORAL) Take by mouth.Green Tea [place] Extract (GREEN TEA) cap Take by mouth.DIPHENHYDRAMINE [...] lb 12.8 oz) SpO2 100% BMI 29.79 kg/[id number] EXAMINATIONGeneral: Alert and oriented, no distress, pleasant [...] orother abnormality developsAlfred Carolin Paula MD Normal [facility] Remote CBCDIF (for [facility] use o nly)on 11-07-2017 Abs Baso 0.03 k/uL Normal 0.00-0.10 [facility] Abs Bledsoe 0.53 k/uL Normal 0.00-0.86 [facility] Abs Neut 3.83 k/uL Normal 1.45-7.50 [facility] Basophils/100 WBC Auto (Bld) 0.5 % Normal [facility] Eosinophils 0.31 10*3/uL Normal 0.00-0.45 [facility] Eosinophils/100 leukocytes 5.1 % Normal [facility] Erythrocyte distribution width Auto Ratio (RBC) 13.4 % Normal 11.5-15.0 [facility] Erythrocytes (RBC) 4.11 10*6/uL Normal 3.90-5.20 [facility] Hematocrit (HCT) 36.2 % Normal 36.0-46.0 [facility] Hemoglobin mass conc (Bld) 12.2 g/dL Normal 11.5-15.5 [facility] Lymphocytes 1.42 10*3/uL Normal 1.00-4.00 [facility] Lymphocytes/100 leukocytes 23.2 % Normal [facility] MCH 29.7 pG Normal 26.0-34.0 [facility] MCHC mass conc (RBC) 33.7 g/dL Normal 30.5-36.0 [facility] MCV 88.1 fL Normal 80.0-100.0 [facility] Monocytes/100 leukocytes 8.7 % Normal [facility] Neutrophils/100 WBC Auto (Bld) 62.5 % Normal [facility] Platelet mean volume (PMV) 10.4 fL Normal 9.0-12.7 [facility] Platelets 211 10*3/uL Normal 150-400 [facility] WBC (Leukocytes) 6.12 10*3/uL Normal 3.70-11.00 [facility] Vital Signs Date Time Vital Sign Value Performing Clinician Facility 01-26-2025 13:16-0400 Body height 144.78 cm Aisha Ragland PA-C Work Phone: [facility] 01-26-2025 13:16-0400 Body mass index (BMI) [Ratio] 30 kg/m2 Aisha Ragland PA-C Work Phone: [facility] 01-26-2025 13:16-0400 Body weight 63 kg Aisha Ragland PA-C Work Phone: [facility] 01-13-2025 15:11-0400 Body height 147.3 cm Aisha Ragland PA Work Phone: [facility] 01-13-2025 15:11-0400 Body mass index (BMI) [Ratio] 25.79 kg/m2 Aisha Ragland PA Work Phone: [facility] 01-13-2025 15:11-0400 Body temperature 98.91 [degF] Aisha Ragland PA Work Phone: [facility] 01-13-2025 15:11-0400 Body weight 55.97 kg Aisha Ragland PA Work Phone: [facility] 01-13-2025 15:11-0400 Diastolic blood pressure 84 mm[Hg] Aisha Ragland PA Work Phone: [facility] 01-13-2025 15:11-0400 Heart rate 69 /min Aisha Ragland PA Work Phone: [facility] 01-13-2025 15:11-0400 SaO2% (BldA) [Mass fraction] 96 % Aisha Ragland PA Work Phone: [facility] 01-13-2025 15:11-0400 Systolic blood pressure 126 mm[Hg] Aisha Ragland PA Work Phone: [facility] 12-21-2024 11:50-0400 Body height 144.78 cm Aisha Meagan PA-C Work Phone: [facility] 12-21-2024 11:50-0400 Body mass index (BMI) [Ratio] 30.2 kg/m2 Aisha Meagan PA-C Work Phone: [facility] 12-21-2024 11:50-0400 Body temperature 98.2 [degF] Aisha Meagan PA-C Work Phone: [facility] 12-21-2024 11:50-0400 Body weight 63.5 kg Aisha Meagan PA-C Work Phone: [facility] 12-21-2024 11:50-0400 Diastolic blood pressure 75 mm[Hg] Aisha Meagan PA-C Work Phone: [facility] 12-21-2024 11:50-0400 Heart rate 61 /min Aisha Meagan PA-C Work Phone: [facility] 12-21-2024 11:50-0400 Respiratory rate 18 /min Aisha Meagan PA-C Work Phone: [facility] 12-21-2024 11:50-0400 SaO2% (BldA) [Mass fraction] 95 % Aisha Meagan PA-C Work Phone: [facility] 12-21-2024 11:50-0400 Systolic blood pressure 134 mm[Hg] Aisha Meagan PA-C Work Phone: [facility] 10-27-2024 16:00-0400 Body height 147.3 cm Tabitha Valentino DPM Work Phone: [facility] 10-27-2024 16:00-0400 Body mass index (BMI) [Ratio] 26.96 kg/m2 Tabitha Valentino DPM Work Phone: [facility] 10-27-2024 16:00-0400 Body weight 58.51 kg Christopher Bohach DPM Work Phone: [facility] 10-27-2024 16:00-0400 Diastolic blood pressure 59 mm[Hg] Tabitha Valentino DPM Work Phone: [facility] 10-27-2024 16:00-0400 Heart rate 69 /min Tabitha Jenkinsach DPM Work Phone: [facility] 10-27-2024 16:00-0400 Respiratory rate 18 /min Tabitha Valentino DPM Work Phone: [facility] 10-27-2024 16:00-0400 Systolic blood pressure 126 mm[Hg] Tabitha Jenkinsach DPM Work Phone: [facility] 10-14-2024 15:48-0400 Body height 147.3 cm Aisha Ragland PA Work Phone: [facility] 10-14-2024 15:48-0400 Body mass index (BMI) [Ratio] 26.96 kg/m2 Aisha Ragland PA Work Phone: [facility] 10-14-2024 15:48-0400 Body temperature 98.91 [degF] Aisha Ragland PA Work Phone: [facility] 10-14-2024 15:48-0400 Body weight 58.51 kg Aisha Ragland PA Work Phone: [facility] 10-14-2024 15:48-0400 Diastolic blood pressure 72 mm[Hg] Aisha Ragland PA Work Phone: [facility] 10-14-2024 15:48-0400 Heart rate 68 /min Aisha Ragland PA Work Phone: [facility] 10-14-2024 15:48-0400 SaO2% (BldA) [Mass fraction] 98 % Aisha Ragland PA Work Phone: [facility] 10-14-2024 15:48-0400 Systolic blood pressure 118 mm[Hg] Aisha Ragland PA Work Phone: [facility] 09-11-2024 11:19-0500 Body temperature 98.5 [degF] Aisha Ragland PA-C Work Phone: [facility] 09-11-2024 11:19-0500 Diastolic blood pressure 77 mm[Hg] Aisha Meagan PA-C Work Phone: [facility] 09-11-2024 11:19-0500 Heart rate 74 /min Aisha Meagan PA-C Work Phone: [facility] 09-11-2024 11:19-0500 Respiratory rate 18 /min Aishamakayla Aroramers PA-C Work Phone: [facility] 09-11-2024 11:19-0500 SaO2% (BldA) [Mass fraction] 97 % Aisha Ragland PA-C Work Phone: [facility] 09-11-2024 11:19-0500 Systolic blood pressure 127 mm[Hg] Aisha Aroramers PA-C Work Phone: [facility] 09-11-2024 04:11-0500 Body weight 61.1 kg Aisha Ragland PA-C Work Phone: [facility] 09-09-2024 11:05-0500 Inhaled oxygen flow rate 1 L/min Aisha Ragland PA-C Work Phone: [facility] 09-09-2024 06:19-0500 Body height 144.78 cm Aisha Aroramers PA-C Work Phone: [facility] 08-21-2024 15:16-0500 Body height 147.3 cm Aisha Ragland PA Work Phone: [facility] 08-21-2024 15:16-0500 Body mass index (BMI) [Ratio] 26.96 kg/m2 Aisha Ragland PA Work Phone: [facility] 08-21-2024 15:16-0500 Body temperature 98.4 [degF] Aisha Ragland PA Work Phone: [facility] 08-21-2024 15:16-0500 Body weight 58.51 kg Aisha Ragland PA Work Phone: [facility] 08-21-2024 15:16-0500 Diastolic blood pressure 84 mm[Hg] Aisha Ragland PA Work Phone: [facility] 08-21-2024 15:16-0500 Heart rate 67 /min Aisha Ragland PA Work Phone: [facility] 08-21-2024 15:16-0500 SaO2% (BldA) [Mass fraction] 98 % Aisha Ragland PA Work Phone: [facility] 08-21-2024 15:16-0500 Systolic blood pressure 130 mm[Hg] Aisha Ragland PA Work Phone: [facility] 08-11-2024 16:33-0500 Body height 147.3 cm Christopher Bohach DPM Work Phone: [facility] 08-11-2024 16:33-0500 Body mass index (BMI) [Ratio] 26.96 kg/m2 Christopher Bohach DPM Work Phone: [facility] 08-11-2024 16:33-0500 Body weight 58.51 kg Christopher Bohach DPM Work Phone: [facility] 08-11-2024 16:33-0500 Diastolic blood pressure 83 mm[Hg] Christopher Bohach DPM Work Phone: [facility] 08-11-2024 16:33-0500 Heart rate 63 /min Christopher Bohach DPM Work Phone: [facility] 08-11-2024 16:33-0500 Systolic blood pressure 144 mm[Hg] Christopher Bohach DPM Work Phone: [facility] 07-23-2024 15:13-0500 Body height 144.78 cm [facility] 07-23-2024 15:13-0500 Body mass index (BMI) [Ratio] 27 kg/m2 [facility] 07-23-2024 15:13-0500 Body weight 56.69 kg [facility] 07-07-2024 14:46-0500 Body height 147.3 cm Aisha Ragland PA Work Phone: [facility] 07-07-2024 14:46-0500 Body temperature 98.4 [degF] Aisha Ragland PA Work Phone: [facility] 07-07-2024 14:46-0500 Diastolic blood pressure 70 mm[Hg] Aisha Ragland PA Work Phone: [facility] 07-07-2024 14:46-0500 Heart rate 68 /min Aisha Ragland PA Work Phone: [facility] 07-07-2024 14:46-0500 SaO2% (BldA) [Mass fraction] 98 % Aisha Ragland PA Work Phone: [facility] 07-07-2024 14:46-0500 Systolic blood pressure 118 mm[Hg] Aisha Ragland PA Work Phone: [facility] 06-07-2024 14:01-0500 Body height 144.78 cm [facility] 06-07-2024 14:01-0500 Body mass index (BMI) [Ratio] 25.7 kg/m2 [facility] 06-07-2024 14:01-0500 Body temperature 100.5 [degF] [facility] 06-07-2024 14:01-0500 Body weight 53.97 kg [facility] 06-07-2024 14:01-0500 Diastolic blood pressure 73 mm[Hg] [facility] 06-07-2024 14:01-0500 Heart rate 74 /min [facility] 06-07-2024 14:01-0500 Respiratory rate 16 /min [facility] 06-07-2024 14:01-0500 SaO2% (BldA) [Mass fraction] 96 % [facility] 06-07-2024 14:01-0500 Systolic blood pressure 131 mm[Hg] [facility] 06-02-2024 15:46-0500 Body height 147.3 cm Christnormaer Bohach DPM Work Phone: [facility] 06-02-2024 15:46-0500 Body mass index (BMI) [Ratio] 26.96 kg/m2 Christopher Bohach DPM Work Phone: [facility] 06-02-2024 15:46-0500 Body weight 58.51 kg Christopher Bohach DPM Work Phone: [facility] 06-02-2024 15:46-0500 Diastolic blood pressure 65 mm[Hg] Christopher Bohach DPM Work Phone: [facility] 06-02-2024 15:46-0500 Heart rate 65 /min Christopher Bohach DPM Work Phone: [facility] 06-02-2024 15:46-0500 Systolic blood pressure 147 mm[Hg] Christopher Bohach DPM Work Phone: [facility] 04-24-2024 15:17-0400 Body height 147.3 cm Aisha Ragland PA Work Phone: [facility] 04-24-2024 15:17-0400 Body mass index (BMI) [Ratio] 27.15 kg/m2 Aisha Ragland PA Work Phone: [facility] 04-24-2024 15:17-0400 Body temperature 98.4 [degF] Aisha Ragland PA Work Phone: [facility] 04-24-2024 15:17-0400 Body weight 58.92 kg Aisha Ragland PA Work Phone: [facility] 04-24-2024 15:17-0400 Heart rate 63 /min Aisha Ragland PA Work Phone: [facility] 04-24-2024 15:17-0400 SaO2% (BldA) [Mass fraction] 95 % Aisha Ragland PA Work Phone: [facility] 03-24-2024 16:17-0400 Body height 147.3 cm Christopher Bohach DPM Work Phone: [facility] 03-24-2024 16:17-0400 Body mass index (BMI) [Ratio] 25.71 kg/m2 Christopher Bohach DPM Work Phone: [facility] 03-24-2024 16:17-0400 Body weight 55.79 kg Christopher Bohach DPM Work Phone: [facility] 03-24-2024 16:17-0400 Diastolic blood pressure 67 mm[Hg] Christopher Bohach DPM Work Phone: [facility] 03-24-2024 16:17-0400 Heart rate 54 /min Christopher Bohach DPM Work Phone: [facility] 03-24-2024 16:17-0400 Systolic blood pressure 139 mm[Hg] Christopher Bohach DPM Work Phone: [facility] 03-10-2024 18:00-0400 Diastolic blood pressure 72 mm[Hg] PA-C Aisha Ragland Work Phone: [facility] 03-10-2024 18:00-0400 Heart rate 74 /min PA-C Aisha Ragland Work Phone: [facility] 03-10-2024 18:00-0400 Respiratory rate 18 /min PA-C Aisha Ragland Work Phone: [facility] 03-10-2024 18:00-0400 SaO2% (BldA) [Mass fraction] 98 % PA-C Aisha Ragland Work Phone: [facility] 03-10-2024 18:00-0400 Systolic blood pressure 138 mm[Hg] ISELA Ragland Work Phone: [facility] 03-10-2024 15:27-0400 Body height 144.78 cm ISELA Ragland Work Phone: [facility] 03-10-2024 15:27-0400 Body temperature 98.5 [degF] ISELA Ragland Work Phone: [facility] 03-10-2024 15:27-0400 Body weight 58.05 kg ISELA Ragland Work Phone: [facility] 10-17-2023 10:18-0400 Diastolic blood pressure 64 mm[Hg] Kaci Morton [facility] 10-17-2023 10:18-0400 Heart rate 66 /min Kaci Morton [facility] 10-17-2023 10:18-0400 Mean blood pressure 80 mm[Hg] Kaci Morton [facility] 10-17-2023 10:18-0400 Respiratory rate 14 /min Kaci Morton [facility] 10-17-2023 10:18-0400 Systolic blood pressure 112 mm[Hg] Kaci Morton [facility] 10-01-2023 06:33-0400 Heart rate 78 /min Dillon Bryant [facility] 10-01-2023 06:33-0400 Respiratory rate 16 /min Dillon Bryant [facility] 10-01-2023 06:33-0400 SaO2% (BldA) [Mass fraction] 98 % Dillon Bryant [facility] 10-01-2023 05:23-0400 Body temperature 97.7 [degF] Dillon Bryant [facility] 10-01-2023 05:23-0400 Diastolic blood pressure 75 mm[Hg] Dillon Bryant [facility] 10-01-2023 05:23-0400 Heart rate 74 /min Dillon Patelner [facility] 10-01-2023 05:23-0400 Respiratory rate 16 /min Dillon Hurtado [facility] 10-01-2023 05:23-0400 SaO2% (BldA) [Mass fraction] 99 % Dillon Hurtado [facility] 10-01-2023 05:23-0400 Systolic blood pressure 139 mm[Hg] Dillon Hurtado [facility] 08-14-2023 16:13-0500 Body height 152.4 cm Aisha Ragland PA Work Phone: [facility] 08-14-2023 16:13-0500 Body mass index (BMI) [Ratio] 25.82 kg/m2 Aisha Ragland PA Work Phone: [facility] 08-14-2023 16:13-0500 Body temperature 99.1 [degF] Aisha Ragland PA Work Phone: [facility] 08-14-2023 16:13-0500 Body weight 59.97 kg Aisha Ragland PA Work Phone: [facility] 08-14-2023 16:13-0500 Diastolic blood pressure 80 mm[Hg] Aisha Ragland PA Work Phone: [facility] 08-14-2023 16:13-0500 Heart rate 64 /min Aisha Ragland PA Work Phone: [facility] 08-14-2023 16:13-0500 SaO2% (BldA) [Mass fraction] 97 % Aisha Ragland PA Work Phone: [facility] 08-14-2023 16:13-0500 Systolic blood pressure 122 mm[Hg] Aisha Meagan PA Work Phone: [facility] 07-15-2023 14:58-0500 Body height 144.78 cm PA-C Aisha Meagan Work Phone: [facility] 07-15-2023 14:58-0500 Body temperature 98.5 [degF] PA-C Aisha Meagan Work Phone: [facility] 07-15-2023 14:58-0500 Body weight 56.7 kg PA-C Aisha Meagan Work Phone: [facility] 07-15-2023 14:58-0500 Diastolic blood pressure 62 mm[Hg] PA-C Aisha Meagan Work Phone: [facility] 07-15-2023 14:58-0500 Heart rate 63 /min PA-C Aisha Meagan Work Phone: [facility] 07-15-2023 14:58-0500 Respiratory rate 18 /min PA-C Aisha Meagan Work Phone: [facility] 07-15-2023 14:58-0500 SaO2% (BldA) [Mass fraction] 98 % PA-C Aisha Meagan Work Phone: [facility] 07-15-2023 14:58-0500 Systolic blood pressure 132 mm[Hg] PA-C Aisha Meagan Work Phone: [facility] 06-20-2023 14:45-0500 Body height 152.4 cm Lisa Castillo Other [employer] Other 03-21-2023 13:30-0400 Body height 152.4 cm João Soto Other [employer] Other 03-21-2023 13:30-0400 Body mass index (BMI) [Ratio] 24.41 kg/m2 João Alok Other [employer] Other 03-21-2023 13:30-0400 Body weight 56.7 kg João Alok Other [employer] Other 09-13-2022 13:45-0500 Body height 152.4 cm João Alok Other [employer] Other 09-13-2022 13:45-0500 Body mass index (BMI) [Ratio] 24.02 kg/m2 João Alok Other [employer] Other 09-13-2022 13:45-0500 Body weight 55.79 kg João Alok Other [employer] Other 10-05-2021 13:00-0400 Body height 152.4 cm João Alok Other [employer] Other 10-05-2021 13:00-0400 Body mass index (BMI) [Ratio] 23.43 kg/m2 João Alok Other [employer] Other 10-05-2021 13:00-0400 Body weight 54.43 kg João Alok Other [employer] Other Encounters Encounter Date Encounter Type Care Provider Facility Start: 03-02-2025 ambulatory João Soto Facilit y:[facility] Start: 02-27-2025 End: 02-27-2025 [facility] Comment on above: Chronic pain disorde r Start: 02-06-2025 End: 02-08-2025 Isabel Hannah MD Work Phone: [facility] Comment on above: Essential hypertensi on Start: 01-26-2025 End: 01-26-2025 ambulatory Aisha Ragland PA-C Work Phone: [facility] Work Phone: Start: 01-26-2025 End: 01-26-2025 Patient encounter procedure João Taylor Al[facility] Work Phone: Start: 01-23-2025 Registered Recurring [facility] [place] Start: 01-13-2025 End: 01-13-2025 ambulatory AISHA RAGLAND Not Available Start: 01-13-2025 End: 01-13-2025 Office outpatient visit 25 minutes Aisha PEREZ Work Phone: [facility] Comment on above: Bronchitis (Primary Dx); Controlled type 2 diabetes mellitus with diabetic polyneuropathy, without long-term current use of insulin (HCC); GERD without esophagitis; Anemia due to folic acid deficiency, unspecified deficiency type; Breast screening Start: 01-13-2025 End: 01-13-2025 Bamboo flowsheet Yris Donnelly EXTRUDER Work Phone: [facility] Start: 01-13-2025 End: 01-13-2025 Bamboo flowsheet Yris Donnelly EXTRUDER Work Phone: [facility] Start: 12-22-2024 Registered Recurring Aisha brown PA-C Work Phone: [facility] [place] Start: 12-21-2024 End: 12-23-2024 External Result Encounter Amanda Roberts EXTRUDER Work Phone: [facility] Unsolicited Start: 12-21-2024 End: 12-23-2024 External Result Encounter Amanda Roberts EXTRUDER Work Phone: [facility] Unsolicited Start: 12-21-2024 End: 12-21-2024 Departed Referred Aisha Meagan PA-C Work Phone: [facility] [place] Work Phone: Start: 12-21-2024 End: 12-21-2024 ambulatory Aisha Ragland PA-C Work Phone: [facility] Work Phone: Start: 12-21-2024 End: 12-21-2024 Patient encounter procedure Aisha Ragland PA-C Work Phone: [facility] Work Phone: Start: 12-19-2024 Registered Recurring Aisha brown PA-C Work Phone: [facility] [place] Start: 12-01-2024 End: 12-01-2024 Patient encounter procedure Aisha Ragland PA-C Work Phone: [facility] Work Phone: Start: 11-05-2024 End: 11-05-2024 Follow-up encounter Aisha PEREZ Work Phone: [facility] Start: 10-27-2024 End: 10-27-2024 Patient encounter procedure Tabitha Valentino DPM Work Phone: [facility] Comment on above: Diabetic polyneuropa thy associated with type 2 diabetes mellitus (CMS/HCC) (Primary Dx); Onychomycosis Start: 10-27-2024 End: 10-27-2024 ambulatory TABITHA VALENTINO Not Available Start: 10-25-2024 End: 10-25-2024 Clinisync Result Encounter Aisha PEREZ Work Phone: [facility] Unsolicited Start: 10-25-2024 End: 10-25-2024 Clinisync Result Encounter Aisha PEREZ Work Phone: [facility] Unsolicited Start: 10-24-2024 End: 10-25-2024 Refill Aisha PEREZ Work Phone: [facility] Comment on above: Controlled type 2 di abetes mellitus with diabetic polyneuropathy, without long-term current use of insulin (CMS/HCC) Start: 10-20-2024 End: 10-20-2024 Patient encounter procedure Aisha HINSONC Work Phone: [facility] Work Phone: Start: 10-14-2024 End: 10-14-2024 Patient encounter procedure Aisha PEREZ Work Phone: [facility] Comment on above: Medicare annual [facility] visit, subsequent (Primary Dx); Dysuria; Essential hypertension (CMS/FORMER[facility]); Chronic pain of right knee; Hospital discharge follow-up Start: 10-14-2024 End: 10-14-2024 ambulatory AISHA RAGLAND Not Available Start: 09-22-2024 End: 09-22-2024 ambulatory Aisha HINSONC Work Phone: [facility] Work Phone: Start: 09-22-2024 End: 09-22-2024 Patient encounter procedure Aisha HINSONC Work Phone: [facility] Work Phone: Start: 09-09-2024 Non-patient / Non-visit Marlene Ragland PA-C Work Phone: [facility] Work Phone: Start: 09-09-2024 End: 09-11-2024 Admission to same day surgery center Aisha Ragland PA-C Work Phone: [facility] [place] Start: 09-09-2024 End: 09-11-2024 ambulatory Aisha HINSONC Work Phone: [facility] Work Phone: Start: 09-03-2024 End: 09-03-2024 ambulatory Aisha PEREZ-C Work Phone: [facility] Work Phone: Start: 09-03-2024 End: 09-03-2024 Encounter for other preprocedural examination Aisha PEREZ-C Work Phone: [facility] Start: 09-03-2024 End: 09-03-2024 Patient encounter procedure Aisha PEREZ-C Work Phone: [facility] Work Phone: Start: 09-03-2024 End: 09-03-2024 Patient encounter procedure Aisha PEREZ-C Work Phone: [facility] [place] [facility] Start: 09-03-2024 End: 09-03-2024 ambulatory Aisha Ragland PA-C Work Phone: [facility] Work Phone: Start: 09-01-2024 End: 09-01-2024 Discharged Recurring Aisha Ragland PA-C Work Phone: [facility] [place] Start: 09-01-2024 Registered Recurring Aisha PEREZ-C Work Phone: [facility] [place] Start: 09-01-2024 End: 09-01-2024 ambulatory Aisha Ragland PA-C Work Phone: [facility] Work Phone: Start: 09-01-2024 Encounter for other preprocedural examination João Child [facility] Start: 08-26-2024 End: 08-26-2024 Patient encounter procedure Aisha PEREZ-C Work Phone: [facility] Work Phone: Start: 08-26-2024 Encounter for preprocedural laboratory examination João Soto [facility] [facility] Start: 08-26-2024 End: 08-26-2024 Refill Erin Azar MA [facility] Comment on above: Chronic pain disorde r Start: 08-25-2024 End: 08-28-2024 Refill Aisha PEREZ Work Phone: [facility] Comment on above: Chronic pain disorde r Start: 08-22-2024 End: 08-22-2024 Patient encounter procedure Aisha PEREZ-C Work Phone: [facility] Work Phone: Start: 08-22-2024 End: 08-22-2024 ambulatory Aisha Ragland PA-C Work Phone: [facility] Work Phone: Start: 08-21-2024 End: 08-21-2024 Office outpatient visit 25 minutes Aisha PEREZ Work Phone: [facility] Comment on above: Chronic pain of righ t knee (Primary Dx); Controlled type 2 diabetes mellitus with diabetic polyneuropathy, without long-term current use of insulin ([facility]); Acute non-recurrent frontal sinusitis; Anxiety; Preop examination Start: 08-21-2024 End: 08-21-2024 ambulatory AISHA RAGLAND Not Available Start: 08-21-2024 End: 08-21-2024 Bamboo flowsheet Aisha Ragland PA Work Phone: [facility] Start: 08-21-2024 End: 08-21-2024 Bamboo flowsheet Aisha Ragland PA Work Phone: [facility] Start: 08-21-2024 End: 08-21-2024 Preprocedural examination done Aisha PEREZ Work Phone: [facility] Start: 08-11-2024 End: 08-11-2024 ambulatory TABITHA VALENTINO Not Available Start: 08-11-2024 End: 08-11-2024 Patient encounter procedure Tabitha Valentino DPM Work Phone: [employer] [facility] Comment on above: Diabetic polyneuropa thy associated with type 2 diabetes mellitus ([facility]) (Primary Dx); Onychomycosis Start: 08-11-2024 End: 08-11-2024 Bamboo flowsheet Tabitha Valentino DPM Work Phone: [facility] Start: 08-11-2024 End: 08-11-2024 Bamboo flowsheet Tabitha Valentino DPM Work Phone: [facility] [email or web address] [facility] Start: 07-23-2024 Patient encounter status [facility] Start: 07-23-2024 Preprocedural examination done Aisha Ragland PA-C Work Phone: [facility] Start: 07-23-2024 End: 07-23-2024 ambulatory [facility] Work Phone: Start: 07-23-2024 End: 07-23-2024 Encounter for other preprocedural examination [facility] Start: 07-23-2024 End: 07-23-2024 Patient encounter procedure [facility] Work Phone: Start: 07-14-2024 End: 07-17-2024 Refill Aisha PEREZ Work Phone: [facility] Comment on above: Controlled type 2 di abetes mellitus with diabetic polyneuropathy, without long-term current use of insulin ([facility]/H[facility]) Start: 07-07-2024 End: 07-07-2024 ambulatory AISHA RAGLAND Not Available Start: 07-07-2024 End: 07-07-2024 Office outpatient visit 25 minutes Aisha PEREZ Work Phone: [facility] Comment on above: Reactive depression (CMS/HCC) (Primary Dx); Raynaud's disease without gangrene; Osteoarthritis of multiple joints, unspecified osteoarthritis type; Chronic pain of right knee; Chronic pain disorder Start: 07-07-2024 End: 07-07-2024 Bamboo flowsheet Aisha PEREZ Work Phone: [facility] Start: 07-07-2024 End: 07-07-2024 Bamboo flowsheet Aisha PEREZ Work Phone: [facility] Start: 06-25-2024 End: 06-26-2024 Refill Zuri Hannah MD Work Phone: [facility] Comment on above: Essential hypertensi on (CMS/HCC); Controlled type 2 diabetes mellitus with diabetic polyneuropathy, without long-term current use of insulin (CMS/HCC) Start: 06-17-2024 End: 06-17-2024 Refill Zuri Hannah MD Work Phone: [facility] Comment on above: GERD without esophag itis Start: 06-07-2024 End: 06-07-2024 Patient encounter procedure [facility] Work Phone: Start: 06-02-2024 End: 06-02-2024 ambulatory TABITHA VALENTINO Not Available Start: 06-02-2024 End: 06-02-2024 Patient encounter procedure Tabitha Valentino DPM Work Phone: [facility] Comment on above: Diabetic polyneuropa thy associated with type 2 diabetes mellitus (CMS/HCC) (Primary Dx); Onychomycosis Chronic pain disorde r Start: 05-24-2024 End: 05-26-2024 Refill Aisha Ragland PA Work Phone: [facility] Comment on above: Reactive depression (CMS/HCC) Start: 04-24-2024 End: 04-24-2024 Office outpatient visit 25 minutes Aisha PEREZ Work Phone: [facility] Comment on above: Need for immunizatio n against influenza; Controlled type 2 diabetes mellitus with diabetic polyneuropathy, without long-term current use of insulin ([facility]); Chronic pain disorder Start: 04-24-2024 End: 04-24-2024 ambulatory AISHA RAGLAND Not Available Start: 04-23-2024 End: 04-23-2024 ambulatory ISELA Ragland Work Phone: [facility] Work Phone: Start: 04-23-2024 End: 04-23-2024 Patient encounter procedure ISELA Ragland Work Phone: [facility] Work Phone: Start: 04-22-2024 End: 04-23-2024 Isabel Hannah MD Work Phone: [facility] Comment on above: GERD without esophag itis Start: 03-24-2024 End: 03-24-2024 Patient encounter procedure Tabitha Valentino DPM Work Phone: [facility] Comment on above: Diabetic polyneuropa thy associated with type 2 diabetes mellitus (CMS/HCC) (Primary Dx); Onychomycosis Start: 03-24-2024 End: 03-24-2024 ambulatory TABITHA VALENTINO Not Available Start: 03-24-2024 End: 03-24-2024 Bamboo flowsheet Tabitha Valentino DPM Work Phone: [facility] Start: 03-24-2024 End: 03-24-2024 Bamboo flowsheet Tabitha Valentino DPM Work Phone: [facility] Start: 03-13-2024 End: 03-13-2024 ambulatory AISHA RAGLAND Not Available Start: 03-13-2024 End: 03-13-2024 Office outpatient visit 15 minutes Aisha PEREZ Work Phone: [facility] Comment on above: Reactive depression (CMS/HCC) (Primary Dx); Anxiety Start: 03-10-2024 End: 03-10-2024 Emergency department patient visit ISELA Ragland Work Phone: [facility]Emer[facility] Work Phone: Start: 01-28-2024 End: 01-28-2024 ambulatory AISHA RAGLAND Not Available Start: 12-19-2023 End: 12-19-2023 ambulatory [facility] Work Phone: Start: 12-19-2023 End: 12-19-2023 Patient encounter procedure [facility] Work Phone: Start: 11-03-2023 Patient encounter procedure Tabitha JEFFM Work Phone: [facility] Start: 10-17-2023 End: 10-18-2023 ambulatory Kaci Morton Facility:[facility] Start: 10-17-2023 End: 10-18-2023 ambulatory Aisha RAGLAND Facility:[facility] Start: 10-17-2023 End: 10-17-2023 Patient encounter procedure Kaci Morton [facility] Start: 10-17-2023 End: 10-17-2023 Pain Management [facility] Start: 10-01-2023 End: 10-01-2023 Emergency department patient visit Dillon Hurtado Facility:[facility] Start: 10-01-2023 End: 10-01-2023 Emergency department patient visit Dillon Hurtado [facility] Start: 08-14-2023 End: 08-14-2023 Office outpatient visit 25 minutes Aisha PEREZ Work Phone: [facility] Comment on above: Chronic pain disorde r (Primary Dx); Controlled type 2 diabetes mellitus with diabetic polyneuropathy, without long-term current use of insulin ([facility]) Start: 07-15-2023 End: 07-15-2023 Emergency department patient visit ISELA Ragland Work Phone: [facility] Work Phone: Start: 06-26-2023 End: 06-26-2023 ambulatory João Soto Other [employer] Other Start: 06-26-2023 Telephone encounter João Guerin [facility] Start: 06-20-2023 End: 06-20-2023 ambulatory Lisa Castillo Other [employer] Other Start: 06-20-2023 Office outpatient vi sit 25 minutes Lisa Castillo [facility] Start: 06-11-2023 End: 06-11-2023 ambulatory João Soto Other [employer] Other Start: 06-11-2023 Telephone encounter João URIBE G [facility] Start: 03-21-2023 End: 03-21-2023 ambulatory João Soto Other [employer] Other Start: 03-21-2023 Office outpatient vi sit 25 minutes João Soto [facility] Start: 02-12-2023 End: 02-12-2023 ambulatory João Soto Other [employer] Other Start: 02-12-2023 Telephone encounter João URIBE G [facility] Start: 09-13-2022 Office outpatient vi sit 15 minutes João Soto [facility] Start: 09-13-2022 End: 09-13-2022 ambulatory ISELA Ragland Work Phone: [facility] Work Phone: Start: 09-13-2022 End: 09-13-2022 Patient encounter procedure ISELA Ragland Work Phone: [facility] Start: 06-14-2022 End: 06-14-2022 ambulatory João Soto Other [employer] Other Start: 06-14-2022 Patient encounter procedure João Soto [facility] Start: 06-12-2022 End: 06-12-2022 ambulatory Vicky Titus Other [employer] Other Start: 06-12-2022 Telephone encounter Vicky Ariela F [facility] Start: 02-23-2022 End: 02-24-2022 ambulatory AISHA RAGLAND Facility:[facility] Start: 10-05-2021 End: 10-05-2021 ambulatory João Soto Other [employer] Other Start: 10-05-2021 Office outpatient ne w 30 minutes João Soto [facility] Start: 06-29-2021 End: 06-29-2021 ambulatory Vicky Calvey Other [employer] Other Start: 06-29-2021 Office outpatient vi sit 25 minutes Vicky Calvey [facility] Start: 04-06-2021 Office outpatient vi sit 15 minutes Vicky Calvey [facility] Start: 03-28-2021 End: 03-29-2021 ambulatory AISHA RAGLAND Facility:[facility] Start: 11-07-2017 End: 11-12-2017 Ambulatory WAYNE PAULA [facility] Start: 02-20-2017 End: 02-21-2017 Ambulatory DEFAULT PHYSICIAN Facility:[facility] Procedures Date Procedure Procedure Detail Performing Clinician Start: 01-13-2025 Complete blood count with white cell differential, automated Aisha PEREZ Work Phone: Start: 01-13-2025 End: 01-13-2025 Comprehensive metabolic panel Aisha Ragland PA Work Phone: Start: 12-21-2024 Urine culture Aisha brown PA-C Work Phone: Start: 12-21-2024 Culture bacterial quanttative colony count urine Amanda Roberts EXTRUDER Work Phone: Start: 10-25-2024 ALL CBC WITH AUTO DIFF Aisha Ragland PA Work Phone: Start: 09-09-2024 Total replacement of right knee [...] t hip joint Dillon Hurtado Cholecystectomy Dillon magallanes 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) Dillon Hurtado Tonsillectomy Dillon Hurtado Plan of Treatment Date Care Activity Detail Author Start: 10-14-2025 Medicare Annual Wellness (AWV) Medicare Annual Wellness (AWV) [facility] Start: 04-15-2025 Hemoglobin A1c measurement Diabetes: Hemoglobin A1C [facility] Start: 03-16-2025 Influenza vaccination Influenza Vacc ine (#1) [facility] Start: 02-10-2025 End: 02-10-2025 Patient encounter procedure 02/10/2025 4:30 PM EDT Procedure Visit [facility] [address] [place] [phone] Tabitha Valentino DPM [address] [place] [address] [facility] Start: 01-26-2025 End: 01-26-2025 Patient encounter procedure 01/26/2025 4:00 PM EDT Procedure Visit [facility] [email or web address] [facility] [address] [place] [address] Tabitha Valentino DPDuncan [address] [place] [address] [facility] [email or web address] [facility] Start: 01-13-2025 End: 01-13-2025 Patient encounter procedure 01/13/2025 3:20 PM EDT Office Visit [facility] [address] [place] [address] Yris Donnelly NP [address] [place] [address] Arrived [facility] Comment on above: Arrived Start: 01-13-2025 End: 01-13-2026 DBT Breast - bilateral screening Bilateral screening mammogram with tomosynthesis Imaging Routine Breast screening Expected: 01/13/2025, Expires: 01/13/2026 [facility] Work Phone: Comment on above: Expected: 01/13/2025 , Expires: 01/13/2026 Start: 01-06-2025 End: 01-06-2025 Patient encounter procedure 01/06/2025 2:40 PM EDT Office [facility] [address] [place] [address] Aisha Ragland PA [address] [place] [address] [facility] Start: 12-22-2024 Urine culture [facility] Start: 12-21-2024 Bacteria identified in Urine by Culture [facility] Start: 12-16-2024 End: 12-16-2024 Patient encounter procedure 12/16/2024 3:30 PM EDT Office [facility] [address] [place] [address] Aisha Ragland PA [address] [place] [address] [facility] Start: 11-18-2024 Hemoglobin A1c measurement Diabetes: Hemoglobin A1C [facility] Start: 10-27-2024 End: 10-27-2024 Patient encounter procedure 10/27/2024 4:00 PM EDT Procedure Visit [facility] [address] [place] [address] Tabitha Valentino, DPM [address] [place] [address] [facility] Start: 10-20-2024 End: 10-20-2024 Patient encounter procedure 10/20/2024 4:00 PM EDT Procedure Visit [facility] [address] [place] [phone] Tabitha Valentino, DPM [address] [place] [address] [facility] Start: 10-17-2024 Medicare Annual Wellness (AWV) Medicare Annual Wellness (AWV) [facility] Start: 10-17-2024 Urine screening for protein Diabetes: Urine Protein Screening [facility] Start: 09-09-[address] [facility] Start: 09-09-2024 Hospital admission [facility] Start: 09-03-2024 Plain X-ray of bilateral femurs XR femur BI [facility] Start: 09-03-2024 Plain X-ray of bilateral tibia and bilateral fibula XR tibia/fibula BI [facility] Start: 09-03-2024 X-ray of cervical spine XR cerv spine AP/LAT/FLX/EXT [facility] Start: 09-03-2024 XR Cervical spine [address] [facility] Start: 09-03-2024 XR Femur - bilateral Views [facility] Start: 09-03-2024 XR Tibia and Fibula - bilateral Views [facility] Start: 08-25-2024 End: 08-25-2024 Patient encounter procedure 08/25/2024 3:00 PM EST Office Visit [facility] [address] [place] [phone] Aisha Ragland PA [address] [place] [address] [facility] Start: 08-21-2024 End: 08-21-2024 Patient encounter procedure 08/21/2024 3:00 PM EST Office Visit [facility] [address] [place] [address] Aisha Ragland PA [address] [place] [address] Arrived [facility] Comment on above: Arrived Start: 08-15-2024 Urine screening for protein Diabetes: Urine Protein Screening [facility] Start: 08-04-2024 End: 08-04-2024 Patient encounter procedure 08/04/2024 4:00 PM EST Procedure Visit [facility] [address] [place] [phone] Tabitha Valentino, DPDuncan [address] [place] [address] [facility] Start: 07-25-2024 Hemoglobin A1c measurement Diabetes: Hemoglobin A1C [facility] Start: 06-02-2024 End: 06-02-2024 Patient encounter procedure 06/02/2024 3:30 PM EST Procedure Visit [facility] [address] [place] [phone] Tabitha Valentino, DPM [address], [place] [phone] [facility] Start: 05-26-2024 End: 05-26-2024 Patient encounter procedure 05/26/2024 3:45 PM EST Procedure Visit [facility] [address] [place] [phone] Tabitha Valentino, DPM [address] [place] [address] [facility] Start: 04-29-2024 Hemoglobin A1c measurement Diabetes: Hemoglobin A1C [facility] Start: 04-24-2024 End: 04-24-2024 Patient encounter procedure 04/24/2024 3:00 PM EDT Office Visit [facility] [address] [place] [address] Aisha Ragland PA [address] [place] [address] [facility] Start: 04-23-2024 Plain X-ray of right shoulder XR shoulder RT min 2V* [facility] Start: 04-23-2024 X-ray of both knees, three views XR knee BI 3V - NOT FOR ER USE [facility] Start: 04-23-2024 XR Knee - bilateral [address] [facility] Start: 04-23-2024 XR Shoulder - right Views [facility] Start: 03-24-2024 End: 03-24-2024 Patient encounter procedure 03/24/2024 4:15 PM EDT Procedure Visit [facility] [address] [place] [address] Tabitha Valentino DPM [address] [place] [address] Arrived [facility] Comment on above: Arrived Start: 03-16-2024 Influenza vaccination Influenza Vacc ine (#1) [facility] Start: 12-10-2023 Glaucoma screening Diabetes: R etinopathy Screening [facility] Start: 11-28-2023 Medicare Annual Wellness (AWV) Medicare Annual Wellness (AWV) [facility] Start: 11-13-2023 Hemoglobin A1c measurement Diabetes: Hemoglobin A1C [facility] Start: 09-28-2023 End: 09-28-2023 Patient encounter procedure 09/28/2023 2:00 PM EDT Procedure Visit [facility] [address] [place] [address] Tabitha Valentino DPM [address] [place] [address] [facility] Patient Education [facility] Work Phone: Patient referral [facility] Work Phone: Urine culture [facility] Immunizations Immunization Date Immunization Notes Care Provider Fa britt 04-24-2024 Seasonal, quadrivalent, recombinant, injectable influenza vaccine, preservative free Aisha Ragland PA Work Phone: [facility] 04-24-2024 influenza virus vaccine, unspecified formulation Yris Andrzej EXTRUDER Work Phone: [facility] 03-27-2023 Influenza, High-dose Seasonal, Quadrivalent, Preservative Free Aisha Ragland PA Work Phone: [facility] 03-27-2023 pneumococcal conjuga te vaccine, 13 valent Aisha Ragland PA Work Phone: [facility] 03-27-2023 influenza virus vaccine, unspecified formulation Tabitha Valentino DPM Work Phone: [facility] 2022 influenza, high dose seasonal, preservative-free Aisha Meagan PA Work Phone: [facility] 2022 Influenza, High-dose Seasonal, Quadrivalent, Preservative Free Aisha Meagan PA Work Phone: [facility] 04-25-2021 Influenza, High-dose Seasonal, Quadrivalent, Preservative Free Aisha Emagan PA Work Phone: [facility] 04-06-2021 Kenalog -40 mg Vicky Calve y Other [employer] Other 10-26-2020 Kenalog -40 mg Vicky Calve y Other [employer] Other 09-28-2020 pneumococcal polysaccharide vaccine, 23 valent Aisha Ragland PA Work Phone: [facility] 07-23-2020 tetanus toxoid, reduced diphtheria toxoid, and acellular pertussis vaccine, adsorbed PA-C Aisha Ragland Work Phone: [facility] 07-20-2020 Kenalog -40 mg Vicky Calve y Other [employer] Other 04-26-2020 influenza, high dose seasonal, preservative-free Aisha Meagan PA Work Phone: [facility] 04-26-2020 Influenza, High-dose Seasonal, Quadrivalent, Preservative Free Aisha Meagan PA Work Phone: [facility] 04-21-2020 Kenalog -40 mg Vicky Calve y Other [employer] Other 02-11-2020 Kenalog -40 mg Vicky Calve y Other [employer] Other 12-03-2019 Kenalog -40 mg Vicky Calve y Other [employer] Other 05-21-2019 influenza, high dose seasonal, preservative-free Aisha Meagan PA Work Phone: [facility] 05-26-2018 influenza, high dose seasonal, preservative-free Aisha Meagan PA Work Phone: [facility] 06-27-2017 pneumococcal polysaccharide vaccine, 23 valent Aisha Meagan PA Work Phone: [facility] 05-05-2017 influenza, high dose seasonal, preservative-free Aisha Meagan PA Work Phone: [facility] 04-24-2017 influenza, injectabl e, quadrivalent, preservative free Aisha Meagan PA Work Phone: [facility] 05-20-2016 influenza, high dose seasonal, preservative-free Aisha Meagan PA Work Phone: [facility] 05-11-2015 influenza, injectabl e, quadrivalent, contains preservative Aisha Meagan PA Work Phone: [facility] 05-26-2014 influenza, injectabl e, quadrivalent, contains preservative Aisha PEREZ Work Phone: [facility] 05-06-2008 influenza virus vaccine, whole virus Aisha PEREZ Work Phone: [facility] 05-14-2007 influenza virus vaccine, whole virus Aisha PEREZ Work Phone: [facility] NEGATED: Highlighted row has not occurred!04-26-2019 influenza, high dose seasonal, preservative-free PA-Ash Ragland Work Phone: [facility] Payers Date Payer Category Payer Self-pay [id number] 2023 Private Health Insurance [employer] [place] [id number] 2020 Medicare (Managed Care) [facility] [id number] 2020 Unknown 2020 Unknown [id number] [id number] 1959 Unknown [id number] 1947 Unknown [id number] 2.16.840.1.004996.3.579.2 .593 1947 Unknown [id number] 2.16.840.1.131618.3.579.2 .593 1947 Unknown [id number] 2.16.840.1.061569.3.579.2 .727 1947 Unknown [id number] 2.16.840.1.667710.3.579.2 .727 1947 Unknown [id number] 2.16.840.1.065846.3.579.2 .72 1947 Unknown [id number] 2.16.840.1.950182.3.579.2 .125 1947 Unknown [id number] 2.16.840.1.485277.3.579.2 .125 1947 Unknown [id number] 2.16.840.1.185271.3.579.2 .125 1947 Unknown [id number] 2.16.840.1.343136.3.579.2 .1258 1947 Unknown [id number] 2.16.840.1.952128.3.579.2 .125 1947 Unknown [id number] 2.16.840.1.925350.3.579.2 .125 1947 Unknown [id number] 2.16.840.1.714744.3.579.2 .125 1947 Unknown [id number] 2.16.840.1.971723.3.579.2 .125 1947 Unknown [id number] 2.16.840.1.625739.3.579.2 .125 1947 Unknown [id number] 2.16.840.1.847656.3.579.2 .125 1947 Unknown [id number] 2.16.840.1.538447.3.579.2 .1259 Medicare [id number] Unknown HCAP/HFA/FAP Active [id number] Unknown [id number] 2.16.840.1.239378.3.579.2 .531 Unknown [id number] 2.16.840.1.052087.3.579.2 .531 Unknown [id number] 2.16.840.1.048905.3.579.2 .531 Unknown [id number] 2.16.840.1.986306.3.579.2 .531 Unknown [id number] 2.16.840.1.208267.3.579.2 .531 Unknown [id number] 2.16.840.1.593351.3.579.2 .531 Unknown [id number] 2.16.840.1.498742.3.579.2 .531 Unknown [id number] 2.16.840.1.534943.3.579.2 .531 Unknown [id number] 2.16.840.1.877900.3.579.2 .531 Social History Date Type Detail Facility Start: 08-14-2023 End: 10-14-2024 Sex Assigned At [facility] [employer] Other Start: 07-24-2020 End: 03-27-2023 Tobacco smoking status NHIS Never smoked tobacco (finding) [facility] Start: 1945 Sex Assigned At Female F [facility] Start: 03-27-2023 Tobacco use and exposure Smokeless tobacco non-user [facility] Start: 08-14-2023 End: 01-13-2025 Alcohol intake Current drinker of alcohol (finding) [facility] Start: 08-14-2023 End: 10-14-2024 History of Social function [facility] Start: 12-25-2022 Alcohol Comment 1-2 drinks les s than monthly in the past year, Caffeine intake: 2-3 cups per day [facility] Start: 1945 Sex Assigned At Not on file N [facility] Start: 07-23-2024 End: 12-23-2024 Sex Female (finding) [facility] Start: 09-10-2024 SDOH Follow up SDOH Follow up [facility] Work Phone: Medical Equipment Procedure Code Equipment Code Equipment Origin al Text Equipment Identifier Dates Arthroplasty, knee, total, minimally invasive Orthopaedic cement, non-medicated ()[id number] FDA Start: 09-09-2024 Arthroplasty, knee, total, minimally invasive Uncoated knee tibia prosthesis, metallic ()[id number] FDA Start: 09-09-2024 Arthroplasty, knee, total, minimally invasive Uncoated knee femur prosthesis ()[id number] FDA Start: 09-09-2024 Arthroplasty, knee, total, minimally invasive Tibial insert ()[id number] FDA Start: 09-09-2024 Arthroplasty, knee, total, minimally invasive Knee stem ()[id number] FDA Start: 09-09-2024 Arthroplasty, knee, total, minimally invasive Polymer orthopaedic cement restrictor, non-bioabsorbable, sterile ()[id number] FDA Start: 09-09-2024 Orthopaedic bone screw, non-bioabsorbable, non-sterile ()[id number] FDA Start: 04-25-2019 Orthopaedic bone screw, non-bioabsorbable, non-sterile ()[id number] FDA Start: 04-25-2019 Orthopaedic bone screw, non-bioabsorbable, non-sterile ()[id number] FDA Start: 04-25-2019 Orthopaedic bone washer, non-sterile ()[id number] [facility] Start: 04-25-2019 [id number] Start: 04-26-2022 Lancets (OneTouc h Delica Plus [id number]) [facility] [id number] Start: 04-26-2022 USE DIRECTED ONCE DAILY [id number] Start: 07-17-2024 USE DIRECTED ONCE DAILY [id number] Start: 07-14-2024 Blood Sugar Diagnostic (Onetouch Ultra Test) strip Start: 12-21-2024 Blood Sugar Diagnostic (Onetouch Ultra Test) strip Start: 12-21-2024 Blood Sugar Diagnostic (Onetouch Ultra Test) strip Start: 12-21-2024 Goals Date Patient Goal Desired Activity /State Functional Status Date Assessment Result Facility 09-11-2024 Functional status Patient Not at Baseline [facility] Work Phone: 10-17-2023 Functional Status N/A [facility] 10-01-2023 Functional Status N/A [facility] Mental Status Date Assessment Result Facility 09-11-2024 Cognitive function Cognitive Sta tus Patient at Baseline [facility] Work Phone: Clinical Notes 04-15-2013 to 02-27-2025 Telephone Encounter - ANA Whitlock - 02/27/2025 2:27 PM EDTTelephone Encounter - ANA Whitlock - 02/27/2025 2:27 PM EDTANA Whitlock - 01/13/2025 2:40 PM EDT Note Date & Type Note Facility 02-27-2025 Telephone encounter Note Form atting of this note might be different from the original. completed [facility] 02-27-2025 Miscellaneous Notes Formattin g of this note might be different from the original. completed documented in this encounter [facility] 01-13-2025 History of Presen t illness Narrative Images from the original note were not included. Nata Pete is a 79 y.o. female presents with chief complaint of No chief complaint on file. HPI: History of Present Illness The patient is a 79-year-old female who presents for a medication checkup. She is accompanied by her daughter. The primary reason for this visit is to address concerns regarding fatigue and a recent episode of coughing. Over the past weekend, she experienced severe fatigue, requiring rest after brunch and additional sleep, which is atypical for her. Her daughter noted that her complexion appeared pale. She missed her therapy session yesterday due to this fatigue. On Sunday, she had a significant coughing episode, expectorating phlegm, which caused concern. Although she managed a mild cough during therapy with water intake, she continues to feel tired today but is making an effort to exercise. She has been making progress in her physical therapy, albeit slower than desired. She has been walking at home but gets tired easily in public. Therapy has focused on both legs, and she has noticed some improvement. She uses a walker for mobility and has increased her jin-kl-nebji repetitions from 5 to 12. She can now walk to the bathroom without using a wheelchair. Fatigue has been persistent since her COVID-19 infection, and she has also been dealing with anemia, which contributes to her fatigue. Additionally, she has been experiencing twitching in her face and mouth, first noticed when she had her teeth removed. She wears dentures during the day and removes them at night. No tremors have been observed in her head or arms. She reports dry mouth, which she attributes to her dentures. She has been taking lorazepam for anxiety and Lexapro for mood disorders, both of which have been beneficial. She is due for a mammogram and would like to schedule one. She has been experiencing urinary incontinence during therapy sessions and has been wearing briefs and pads as a precaution. No issues with incontinence have been reported outside of these sessions. MEDICATIONS: Current Outpatient Medications Medication Instructions Ascorbic Acid (VITAMIN C PO) Take by mouth atenolol (TENORMIN) 12.5 mg, Oral, Daily, Take 12.5mg by mouth daily Blood Glucose Monitoring Suppl (ONE TOUCH ULTRA 2) w/Device kit Calcium Carb-Cholecalciferol (CALCIUM 600 + D PO) Take by mouth CeleBREX 100 MG capsule Every 24 hours Elderberry 575 MG/5ML syrup escitalopram (LEXAPRO) 20 mg, Oral, Nightly famotidine (PEPCID) 20 mg, Oral, Every morning furosemide (Lasix) 20 MG tablet TAKE 1 TABLET BY MOUTH EVERY DAY glucose blood (OneTouch Ultra) test strip USE DIRECTED ONCE DAILY glucose blood (OneTouch Ultra) test strip USE DIRECTED ONCE DAILY HYDROcodone-acetaminophen (Bruce) 5-325 MG tablet 1 tablet, Oral, 3 times daily Lancets (Wunsch-BrautkleidTouch Delica Plus [id number]) misc lidocaine (Lidoderm) 5 % patch 1 patch, Daily lisinopril 20 MG tablet TAKE 1/4 TABLET BY MOUTH TWICE DAILY for 90 LORazepam (ATIVAN) 0.5 mg, Oral, 2 times daily PRN metFORMIN (GLUCOPHAGE) 500 mg, Oral, Daily omega-3 (Fish Oil) 1200 MG capsule 1 [...] Social History reviewed. OBJECTIVE: Visit Vitals BP 126/84 (BP Location: Right arm, Patient Position: Sitting, BP Cuff Size: Adult) Pulse 69 Temp 98.9 F (Temporal) Ht 4' 10 Wt 123 lb 6.4 oz SpO2 96% BMI 25.79 kg/m OB Status Hysterectomy Smoking Status Never BSA 1.51 m BP Readings from Last 3 Encounters: 01/13/25 126/84 10/27/24 126/59 10/14/24 118/72 Wt Readings from Last 3 Encounters: 01/13/25 123 lb 6.4 oz 10/27/24 129 lb 10/14/24 129 lb Physical Exam Physical Exam Respiratory: Clear to auscultation, no wheezing, rales or rhonchi General: alert & oriented, NAD Head: NC/AT Oral Cavity: MMM Skin: warm, dry Heart: RRR, No m/r/g, S1S2 nml Lungs: CTA b/l Abdomen: soft, ND/NT, BS wnl Musculoskeletal: normal gait Extremities: no clubbing, cyanosis or edema Neurological: nonfocal Psych: mood/affect full range Results Labs - Urine screen: Negative - Hemoglobin A1c: 5.3% ASSESSMENT AND PLAN: Assessment & Plan 1. Fatigue. - Significant fatigue noted, possibly related to recent surgery and ongoing physical therapy. - Previous hemoglobin level was 10.6; repeat blood test will be conducted today. - Antibiotic (Keflex) prescribed to address potential underlying infection contributing to fatigue; prescription sent to pharmacy. - Follow-up in 3 months or sooner if necessary. 2. Cough with phlegm. - Severe coughing up phlegm reported, particularly on Sunday, causing near vomiting. - Antibiotic (Keflex) prescribed to address potential underlying infection; prescription sent to pharmacy. - Physical exam to include lung assessment. - Follow-up in 3 months or sooner if necessary. 3. Medication management. - Hydrocodone prescription refilled on 01/01/2025; patient will call if refill needed. - Famotidine prescription refilled for a year; prescription sent to pharmacy. - Review of current medications and their effectiveness. - Follow-up in 3 months or sooner if necessary. 4. Health maintenance. - Mammogram to be scheduled as patient is overdue for screening. - Discussion about importance of regular health screenings. - Paperwork for mammogram to be provided. - Follow-up in 3 months or sooner if necessary. 5. Facial twitching. - Facial twitching noted, possibly related to new dentures or side effect of current medications. - Referral to neurologist for further evaluation. - Review of records and discussion about potential causes. - Follow-up in 3 months or sooner if necessary. Assessment/Plan Problem List Items Addressed This Visit Controlled type 2 diabetes mellitus with diabetic polyneuropathy, without long-term current use of insulin (HCC) Relevant Orders POCT glycated hemoglobin, total docked device (Completed) Comprehensive metabolic panel (Completed) CBC and differential (Completed) GERD without esophagitis Relevant Medications famotidine (Pepcid) 20 MG tablet Other Relevant Orders Comprehensive metabolic panel (Completed) CBC and differential (Completed) Bronchitis - Primary Other Visit Diagnoses Anemia due to folic acid deficiency, unspecified deficiency type Relevant Orders Comprehensive metabolic panel (Completed) CBC and differential (Completed) Breast screening Relevant Orders Bilateral screening mammogram with tomosynthesis Health Maintenance Due Topic Date Due Diabetes: Retinopathy Screening 12/10/2023 Diabetes: Urine Protein Screening 10/17/2024 Influenza Vaccine (1) 03/16/2025 documented in this encounter [facility] 12-01-2024 Evaluation note Diagnosis Onset Date Resolution Primary osteoarthritis of right knee acute December 01, 2024 4:05pm Status post total right knee replacement noneactive December 01, 2024 4:05pm Impacted cerumen of left ear acute December 21, 2024 11:34am UTI (urinary tract infection) acute December 21, 2024 11:34am Primary osteoarthritis of left knee acute January 26, 2025 1:04pm Primary osteoarthritis of right knee acute January 26, 2025 1:04pm Primary osteoarthritis of right shoulder acute January 26 1:04pm Status post total right knee replacement noneactive January 26, 2025 1:04pm [facility] Work Phone: 1(600) 906-263904-14-2025 History of Present illness Narrative* Tabitha Valention, SUNG - 10/27/2024 4:00 PM EDT Subjective Patient ID: Nata Pete is a 79 y.o. female who presents for Toenail Care. Had total knee replacement in Sep 09. was released from the [facility] [place] october 03 2024. States knee has healed wonderfully. Nail care Location nails on bilateral feet Severity of symptoms mild Onset gradual Status no change Context hard to trim, hard to reach Nails thickened, discolored, pain Relieved by debridement, filing down nails, clipping nails History of ulcers/wounds no Blood sugar 102 Aggravated by shoe gear, pressure DLS 10/14/2024 PCP Zuri Hannah MD/Charito Ragland NP ROS [...] each day at the same time, Disp: , Rfl: Elderberry 575 MG/5ML syrup, , Disp: , Rfl: escitalopram (Lexapro) 20 MG [...] DAILY, Disp: 100 each, Rfl: 11 HYDROcodone-acetaminophen (Bruce) 5-325 MG tablet, Take 1 tablet by mouth in the morning and 1 tablet in the evening and 1 tablet before bedtime., Disp: 90 tablet, Rfl: 0 Lancets (OneTouch Delica Plus Xfarsp04N) [facility], , Disp: , Rfl: lidocaine (Lidoderm) 5 [...] 2 (two) times a day as needed foranxiety, Disp: 10 tablet, Rfl: 0 metFORMIN (Glucophage) 500 MG tablet, TAKE 1 TABLET BY MOUTH ONCE DAILY AT THE SAME TIME, Disp: 90 tablet, Rfl: 3 omega-3 (Fish Oil) 1200 MG capsule, 1 capsule 1 (one) time each day at the same time, Disp: , Rfl: oxyCODONE (Roxicodone) 5 MG immediate release tablet, , Disp: , Rfl: simvastatin (Zocor) 40 MG [...] All of the nondystrophic nails were debrided [place] debr 2 distal documented in this [facility]04-12-2025 Telephone encounter Note* Telephone Encounter - ANA Whitlock - 10/25/2024 2:24 PM EDT [id number] Miscellaneous Notes* Telephone Encounter - ANA Whitlock - 10/25/2024 2:24 PM EDT completed documented in this [facility]04-07-2025 Evaluation note* Diagnosis Onset Date Resolution Status Admit Date Primary osteoarthritis of ri ght knee acute October 20, 2024 4:22pm Status post total right knee replacement noneactive October 20, 2024 4:22pm Primary osteoarthritis of ri ght knee acute December 01, 2024 4 :05pm Status post total right knee replacement noneactive December 01, 2024 4 :05pm Impacted cerumen of left ear acute December 21, 2024 11:34am UTI (urinary tract infection) acute December 21, 2024 11:34am [facility] Work Phone: 1(715) 120-144704-01-2025 History of Present illness Narrative* ANA Whitlock - 10/14/2024 3:30 PM EDT Images from the original note were not included. Nata Pete is a 79 y.o. female presents with chief complaint of Medicare Annual Wellness Visit Subsequent and Hospital Follow-up (Follow up from [facility] completed TCM) HPI: Flowsheet Row Patient Outreach from 10/09/2024 in [facility] with Annika Espinoza MA Hospital Information ED, Hospital or Correction Facility Discharge? Correction Facility Discharge Date 10/03/24 Discharged To: Home Setting Correction Facilities [facility] Admission Date 09/11/24 Medications Discharge medications reviewed and reconciled from hospital? No Appointments Does the patient have a primary care provider? Yes Does the patient have any upcoming specialty appointments? Yes Self Management Does patient have home health? yes What is the home health agency? [facility] Patient Teaching Wrap Up Medicare Wellness Over [...] Do you have a medical power of real estate associate attorney?: No History of Present Illness The [...] test strip USE DIRECTED ONCE DAILY HYDROcodone-acetaminophen (Bruce) 5-325 MG tablet 1 tablet, Oral, 3 times daily Lancets (Wunsch-BrautkleidTouch Delica Plus Sgmvwg17Y) misc lidocaine (Lidoderm) 5 % patch 1 [...] The dosage of Lasix will be increased from20 mg to 40 mg, to be taken once in the morning and once around lunchtime for a duration of one week. She is advised to elevate her legs as much as possible and to engage in mild physical activity such as walking. Occupational therapy will be consulted to assess the possibility of lymphedema and toprovide appropriate treatment if necessary. 2. Pain management. She is currently on oxycodone and Tylenol for pain management. She reports that the medication makes the pain manageable but does not completely eliminate it. She will pick up worker her prescription from the pharmacy today. If additional pain management is needed, further adjustments will be considered. Assessment/Plan Problem List Items Addressed This Visit None Health Maintenance Due Topic Date Due Diabetes: Retinopathy Screening 12/10/2023 Medicare Annual Wellness (AWV) 10/17/2024 documented in this [facility]03-10-2025 Evaluation note* Diagnosis Onset Date Resolution Status Admit Date Primary osteoarthritis of ri ght knee acute September 22, 2024 12:54pm Status post total right knee replacement noneactive September 22, 2024 12:54pm Primary osteoarthritis of ri ght knee acute October 20, 2024 4:22pm Status post total right knee replacement noneactive October 20, 2024 4:22pm Primary osteoarthritis of ri ght knee acute December 01, 2024 4 :05pm Status post total right knee replacement noneactive December 01, 2024 4 :05pm [facility] Work Phone: 1(628) 180-309102-27-2025 Discharge summary Author Adrian Anne [facility] Note Date/Time September 11, 2024 12:33pm [facility] [address] [place] [address] Discharge Summary Signed Patient: Nata Pete MR#: [id number] : 1945 Acct:[id number] Age/Sex: 79 / F Adm Date: 5 Loc: 4N Room: 0V9109-[address]: João Soto DO Copies to: Isela Whitlock DO Kevin A Bailey, DO~ Providers Date of Discharge: 09/11/24 Discharging Provider: Adrian Anne Primary Care Provider: Aisha Ralgand Consults: 09/09/24 07:19 Consult to Occupational Therapy [...] breath. Additionally, please call our office at [phone] should any of the followingoccur: wound bleeding [...] laxatives as directed. ? You may take ayzg-kmm-klsjrbk Benadryl if itching occurs without a rash or hives. ? Icing and elevation will help relieve pain as well, do not underestimate the power of ice and elevation. We do recommend that you stop taking narcotic pain medications by 4-6 weeks after surgery and if necessary, continue to use anti-inflammatory medications such as Mobic (meloxicam), Celebrex (celecoxib), or an nfyf-iac-xyhfyoh medication (Aleve, Motrin, Ibuprofen, etc). Driving an [...] feel free to call our office at [phone]. You are a priority of ours and we will not be upset with you if you call. We would much rather you call to confirm aspects of your recovery process as opposed to possibly hindering your recovery with inappropriate care. We are committed to providing you with the best care possible. Dr. João Soto [facility] [address] [place] [address] [email or web address] Instructions: Know your Meds Prescriptions: Continued lorazepam [...] mg tablet 500 mg PO DAILY omega 1-vma-vwm-fish oil [Fish Oil] 1,200 (144-216) mg capsule [...] % (Auto) 66.8, Lymph % (Auto) 16.6, Bledsoe % (Auto) 11.4, Eos % (Auto) 4.6, Baso % (Auto) 0.6, Nucleat RBC Rel Count 0.0, Neut # (Auto) 3.7, Lymph # (Auto) 0.9 L, Bledsoe # (Auto) 0.6, Eos # (Auto) 0.3, [...] signed by Adrian Anne DO> 09/11/24 1233 [facility] Work Phone: 1(390) 617-840602-27-2025 Progress note Author Adrian Anne [facility] Note Date/Time September 11, 2024 12:31pm [facility] [address] [place] [address] Orthopedic Progress Note Signed Patient: Nata Pete MR#: [id number] : 1945 Acct:[id number] Age/Sex: 79 / F Adm Date: 5 Loc: 4N Room: 3K0363-5 Type: REG SDC Attending Dr: João Soto [...] MPV Neut % (Auto) Lymph % (Auto) Bledsoe % (Auto) Eos % (Auto) Baso % (Auto) Nucleat RBC Rel Count Neut # (Auto) Lymph # (Auto) Bledsoe # (Auto) Eos # (Auto) Baso # [...] % (Auto) 66.8 Lymph % (Auto) 16.6 Bledsoe % (Auto) 11.4 Eos % (Auto) 4.6 Baso % (Auto) 0.6 Nucleat RBC Rel Count 0.0 Neut # (Auto) 3.7 Lymph # (Auto) 0.9 L Bledsoe # (Auto) 0.6 Eos # (Auto) 0.3 [...] office with any questions or concerns Likely half-way facility. Await PT/OT eval's and input. Documented By: Adrian Anne DO 09/11/24 1230 Signed By: <Electronically signed by Adrian Anne DO> 09/11/24 1231 [facility] Work Phone: 1(458) 494-510702-27-2025 [place] [address] Discharge Summary Signed Patient: Nata Pete MR#: [id number] : 1945 Acct:[id number] Age/Sex: 79 / F Adm Date: 5 Loc: Room: 8V6757-[address]: João Soto DO Copies to: [...] breath. Additionally, please call our office at [phone] should any of the followingoccur: wound bleeding [...] laxatives as directed. ? You may take btlo-rmv-npoibje Benadryl if itching occurs without a rash or hives. ? Icing and elevation will help relieve pain as well, do not underestimate the power of ice and elevation. We do recommend that you stop taking narcotic pain medications by 4-6 weeks after surgery and if necessary, continue to use anti-inflammatory medications such as Mobic (meloxicam), Celebrex (celecoxib), or an whdo-ikl-adnapzt medication (Aleve, Motrin, Ibuprofen, etc). Driving an [...] feel free to call our office at [phone]. You are a priority of ours and we will not be upset with you if you call. We would much rather you call to confirm aspects of your recovery pr ocess as opposed to possibly hindering your recovery with inappropriate care. We are committed to providing you with the best care possible. Dr. João Soto [facility] [address] [place] [address] [email or web address] shea [email or web address]/ Instructions: Know your Meds Prescriptions: Continued lorazepam [...] mg tablet 500 mg PO DAILY omega 1-agh-qkn-fish oil [Fish Oil] 1,200 (144-216) mg capsule [...] % (Auto) 66.8, Lymph % (Auto) 16.6, Bledsoe % (Auto) 11.4, Eos % (Auto) 4.6, Baso % (Auto) 0.6, Nucleat RBC Rel Count 0.0, Neut # (Auto) 3.7, Lymph # (Auto) 0.9 L, Bledsoe # (Auto) 0.6, Eos # (Auto) 0.3, [...] DO 09/11/24 1232 Signed By: 09/11/[address] [facility]02-27-2025 [place] [address] Orthopedic Progress Note Signed Patient: Nata Pete MR#: [id number] : 1945 Acct:[id number] Age/Sex: 79 / F Adm Date: 5 Loc: Room: [address] [place] [address] Type: REG SDC Attending Dr: João Soto [...] MPV Neut % (Auto) Lymph % (Auto) Bledsoe % (Auto) Eos % (Auto) Baso % (Auto) Nucleat RBC Rel Count Neut # (Auto) Lymph # (Auto) Bledsoe # (Auto) Eos # (Auto) Baso # [...] % (Auto) 66.8 Lymph % (Auto) 16.6 Bledsoe % (Auto) 11.4 Eos % (Auto) 4.6 Baso % (Auto) 0.6 Nucleat RBC Rel Count 0.0 Neut # (Auto) 3.7 Lymph # (Auto) 0.9 L Bledsoe # (Auto) 0.6 Eos # (Auto) 0.3 [...] office with any questions or concerns Likely half-way facility. Await PT/OT eval's and input. Documented By: Adrian Anne DO 09/11/24 1230 Signed By: 09/11/[address] [facility]02-26-2025 Progress note Author Adrian Anne [facility] Note Date/Time September 10, 2024 9:44am [facility] [address] [place], [place] [id number] Orthopedic Progress Note Signed Patient: Nata Pete MR#: [id number] : 1945 Acct:[id number] Age/Sex: 79 / F Adm Date: 5 Loc: Room: [address] [place] [address] Type: REG SDC Attending Dr: João Soto [...] MPV Neut % (Auto) Lymph % (Auto) Bledsoe % (Auto) Eos % (Auto) Baso % (Auto) Nucleat RBC Rel Count Neut # (Auto) Lymph # (Auto) Bledsoe # (Auto) Eos # (Auto) Baso # [...] % (Auto) 73.8 Lymph % (Auto) 11.8 Bledsoe % (Auto) 12.5 Eos % (Auto) 1.8 Baso % (Auto) 0.1 Nucleat RBC Rel Count 0.1 Neut # (Auto) 4.6 Lymph # (Auto) 0.7 L Bledsoe # (Auto) 0.8 Eos # (Auto) 0.1 [...] office with any questions or concerns Likely half-way facility. Await PT/OT eval's and input. Documented By: Adrian Anne DO 09/10/24 0942 Signed By: <Electronically signed by Adrian Anne DO> 09/10/24 0944 [facility] Work Phone: 1(728) 907-485602-26-2025 [place] [address] Orthopedic Progress Note Signed Patient: Nata Pete MR#: [id number] : 1945 Acct:[id number] Age/Sex: 79 / F Adm Date: 5 Loc: 4N Room: 6R4991-5 Type: REG SDC Attending Dr: João Soto [...] MPV Neut % (Auto) Lymph % (Auto) Bledsoe % (Auto) Eos % (Auto) Baso % (Auto) Nucleat RBC Rel Count Neut # (Auto) Lymph # (Auto) Bledsoe # (Auto) Eos # (Auto) Baso # [...] % (Auto) 73.8 Lymph % (Auto) 11.8 Bledsoe % (Auto) 12.5 Eos % (Auto) 1.8 Baso % (Auto) 0.1 Nucleat RBC Rel Count 0.1 Neut # (Auto) 4.6 Lymph # (Auto) 0.7 L Bledsoe # (Auto) 0.8 Eos # (Auto) 0.1 [...] office with any questions or concerns Likely half-way facility. Await PT/OT eval's and input. Documented By: Adrian Anne DO 09/10/24 0942 Signed By: 09/10/[address] [facility]02-25-2025 Progress note Author João Soto [facility] Note Date/Time September 09, 2024 1:50pm [facility] [address] [place] [address] Orthopedic Progress Note Signed Patient: Nata Pete MR#: [id number] : 1945 Acct:[id number] Age/Sex: 79 / F Adm Date: 5 Loc: 4N Room: [address] [place] [address] Type: REG SDC Attending Dr: João Soto [...] office with any questions or concerns Likely half-way facility. Await PT/OT eval's and input. Dr. [facility] [address] [place] [id number] Documented By: João Soto DO 09/09/24 1347 Signed By: <Electronically signed by João Soto DO> 09/09/24 1350 [facility] Work Phone: 1(487) 430-501702-25-2025 [place] [id number] Orthopedic Progress Note Signed Patient: Nata Pete MR#: [id number] : 1945 Acct:[id number] Age/Sex: 79 / F Adm Date: 5 Loc: 4 Room: [address] [place] [address] Type: REG SDC Attending Dr: João Soto [...] office with any questions or concerns Likely half-way facility. Await PT/OT eval's and input. Dr. João Soto [facility] [address] [place], [place] [id number] Documented By: João Soto DO 09/09/24 1347 Signed By: 09/09/[address] [facility] [facility] Evaluation note* Diagnosis Onset Date Resolution Status Admit Date Osteoarthritis of left knee acute September 03, 2024 3:09pm Osteoarthritis of right knee acute September 03, 2024 3:09pm Pre-op exam acute August 3:09pm Primary osteoarthritis of left knee acute September 03, 2 025 3:09pm Primary osteoarthritis of right shoulder acute September 03, 2 025 3:09pm Osteoarthritis of right shoulder chronic September 03, 2 025 3:09pm S/P total knee arthroplasty deleted September 09, 2024 5:51am Primary osteoarthritis of right knee acute September 22, 2024 12:54pm Status post total right knee replacement noneactive September 22, 2024 12:54pm Primary osteoarthritis of right knee acute October 20, 2024 4:22pm Status post total right knee replacement noneactive October 20, 2024 4:22pm [facility] Work Phone: 1(660) 661-456602-13-2025 Miscellaneous Notes* Telephone Encounter - Shawna Velasquez NP - 08/28/2024 9:04 AM EST Rx sent on 08/26/24. documented in this encounterColumbia Regional HospitalXnkiuhihpq64-05-6945 Telephone encounter Note* Telephone Encounter - Shawna Velasquez NP - 08/28/2024 9:04 AM EST Rx sent on 08/26/24. [facility] Work Phone: 1(588) 350-739802-11-2025 History of Present illness Narrative* Maggi Marquez LPN - 08/26/2024 8:47 AM EST Last refilled on 07/29/24. Last OV was 08/21/24. Narc refill- Charito refilled last time documented in this encounterColumbia Regional HospitalKjjdghdspm10-98-2829 History of Present illness Narrative* ANA Whitlock [...] TABLET BY MOUTH EVERY DAY glucose blood (Wunsch-BrautkleidTouch Ultra) test strip USE DIRECTED ONCE DAILY glucose blood (Wunsch-BrautkleidTouch Ultra) test strip USE DIRECTED ONCE DAILY HYDROcodone-acetaminophen (Bruce) 5-325 MG tablet 1 tablet, Oral, 3 times daily Lancets (OneTouch Delica Plus Pfezco27S) misc lidocaine (Lidoderm) 5 % patch 1 [...] 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 ([facility]) Relevant Orders POCT glycated hemoglobin, total docked device Health Maintenance Due Topic Date Due Diabetes: Retinopathy Screening 12/10/2023 Diabetes: Hemoglobin A1C 07/25/2024 documented in this encounterColumbia Regional HospitalJdvvprzzbb35-84-1087 History of Present illness Narrative* Tabitha Valentino, DPM - 08/11/2024 3:45 PM EST Subjective Patient [...] DAILY, Disp: 100 each, Rfl: 11 HYDROcodone-acetaminophen (Bruce) 5-325 MG tablet, Take 1 tablet by mouth in the morning and 1 tablet in the evening and 1 tablet before bedtime., Disp: 90 tablet, Rfl: 0 Lancets (Wunsch-BrautkleidTouch Delica Plus Ekfszs27A) [facility], , Disp: , Rfl: lidocaine (Lidoderm) 5 [...] All of the nondystrophic nails were debrided [place] debr 2 distal documented in this encounterColumbia Regional HospitalWxzhwrhyrh76-06-4628 Evaluation note* Diagnosis Onset Date Resolution Status [...] osteoarthritis of ri ght shoulder acute September 03 2 025 3:09pm Osteoarthritis of right shoulder chronic September 03, 2 025 3:09pm S/P total knee arthroplasty acute September 09, 2024 5:51am [facility] Work Phone: 1(728) 151-791501-08-2025 Evaluation note* Diagnosis Onset Date Resolution Status [...] Primary osteoarthritis of right shoulder acute September 03, 2 025 3:09pm Osteoarthritis of right shoulder chronic September 03, 2 025 3:09pm S/P total knee arthroplasty deleted September 09, 2024 5:51am Primary osteoarthritis of right knee acute September 22, 2024 12:54pm Status post total right knee replacement noneactive September 22, 2024 12:54pm [facility] Work Phone: 1(373) 693-899801-02-2025 Miscellaneous Notes* Telephone Encounter - ANA Whitlock - 07/17/2024 9:57 AM EST completed documented in this encounterColumbia Regional HospitalEbpzqufpbm27-01-6293 Telephone encounter Note* Telephone Encounter - ANA Whitlock - 07/17/2024 9:57 AM EST completed [facility] HospitalHyeskxyqrh04-47-4227 History of Present illness Narrative* ANA Whitlock [...] TABLET BY MOUTH EVERY DAY glucose blood (Hello Chairuch Ultra) test strip USE DIRECTED ONCE DAILY HYDROcodone-acetaminophen (Bruce) 5-325 MG tablet 1 tablet, Oral, 3 times daily Lancets (Wunsch-BrautkleidTouch Delica Plus Bzmvxl64O) misc lidocaine (Lidoderm) 5 % patch 1 [...] Diabetes: Retinopathy Screening 12/10/2023 documented in this encounterColumbia Regional HospitalYwxkcrwjwa10-28-6773 Telephone encounter Note* Telephone Encounter - ANA Whitlock - 06/26/2024 8:57 AM EST completed [facility] HospitalZltrpufgzu96-50-0822 Miscellaneous Notes* Telephone Encounter - ANA Whitlock - 06/26/2024 8:57 AM EST completed documented in this encounterColumbia Regional HospitalYnkjrergta59-73-5593 Evaluation note* Diagnosis Onset Date Resolution Status Admit Date Acute lower respiratory infection acute June 07, 2 024 1:46pm Osteoarthritis of left knee acute July 23, 2024 3:01pm Osteoarthritis of right knee acute July 23, 2024 3:01pm Pre-op exam acute July 23, 2024 3:01pm Osteoarthritis of right shoulder chronic July 23 3:01pm [facility] Work Phone: 1(456) 600-164711-23-2024 Evaluation note* Diagnosis Onset Date Resolution Status [...] 3:09pm Osteoarthritis of right shoulder chronic September 03 2 025 3:09pm [facility] Work Phone: 1(619) 495-924111-18-2024 History of Present illness Narrative* Tabitha Valentino DPM - 06/02/2024 3:30 PM EST Subjective Patient [...] Disp: 90 tablet, Rfl: 3 glucose blood (Hello Chairuch Ultra) test strip, USE DIRECTED ONCE DAILY, Disp: 100 each, Rfl: 11 HYDROcodone-acetaminophen (Bruce) 5-325 MG tablet, Take 1 tablet by mouth in the morning and 1 tablet in the evening and 1 tablet before bedtime., Disp: 90 tablet, Rfl: 0 Lancets (OneTouch Delica Plus Ffckwd20H) [facility] [place], , Disp: , Rfl: lidocaine (Lidoderm) 5 [...] All of the nondystrophic nails were debrided [place] debr 2 distal documented in this encounterColumbia Regional HospitalKpuwhopjbd45-62-0808 Miscellaneous Notes* Telephone Encounter - ANA Whitlock - 06/02/2024 12:15 PM EST completed documented in this [facility]11-18-2024 Telephone encounter Note* Telephone Encounter - ANA Whitlock - 06/02/2024 12:15 PM EST completed [facility] HospitalKsxjscyehy44-93-5684 Telephone encounter Note* Telephone Encounter - ANA Whitlock - 05/26/2024 9:13 AM EST completed [facility] HospitalLutrxugqim80-35-0271 Miscellaneous Notes* Telephone Encounter - ANA Whitlock - 05/26/2024 9:13 AM EST completed documented in this [facility]10-10-2024 History of Present illness Narrative* AAN Whitlock - 04/24/2024 3:00 PM EDT Images [...] MOUTH EVERY DAY for 30 glucose blood (Hello Chairuch Ultra) test strip USE DIRECTED ONCE DAILY HYDROcodone-acetaminophen (Bruce) 5-325 MG tablet 1 tablet, Oral, 2 times daily Lancets (Wunsch-BrautkleidTouch Delica Plus Iajzsi00S) misc lidocaine (Lidoderm) 5 % patch 1 [...] prescription will be sent to Bob in [place]. 3. Dental Issues. She has one more [...] Visit Chronic pain disorder Relevant Medications HYDROcodone-acetaminophen (Bruce) 5-325 MG tablet Controlled type 2 diabetes mellitus with diabetic polyneuropathy, 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 ([facility]) Relevant Orders POCT glycated hemoglobin, total docked device (Completed) Other Visit Diagnoses Need for immunization against influenza Relevant Orders Flu vaccine, quadrivalent, recombinant, preservative free (Completed) Health Maintenance Due Topic Date Due Diabetes: Retinopathy Screening 12/10/2023 Influenza Vaccine (1) 03/16/2024 Diabetes: Hemoglobin A1C 04/29/2024 documented in this encounterColumbia Regional HospitalIqzawvrtkb02-75-5603 History of Present illness Narrative* Tabitha Valentino, RANDEEM - 03/24/2024 4:15 PM EDT Subjective Patient [...] am Aggravated by shoe gear, pressure DLS 01-28-24 PCP Zuri Hannah MD ROS General: Chillsdenies. [...] Disp: 90 tablet, Rfl: 3 glucose blood (Wunsch-BrautkleidTouch Ultra) test strip, USE DIRECTED ONCE DAILY, Disp: 100 each, Rfl: 11 HYDROcodone-acetaminophen (Bruce) 5-325 MG tablet, Take 1 tablet by mouth in the morning and 1 tablet before bedtime., Disp: 60 tablet, Rfl: 0 Lancets (Hello Chairuch Delica Plus Esviud12N) [facility], , Disp: , Rfl: lidocaine (Lidoderm) 5 [...] nondystrophic nails were debrided documented in this encounterColumbia Regional HospitalWnzfmofsup15-96-8343 History of Present illness Narrative* ANA Whitlock - 03/13/2024 11:00 AM EDT Images from the original note were not included. Nata Pete is a 78 y.o. female presents with chief complaint of No chief complaint on file. HPI: History of Present Illness Patient here for anxiety Patient was in ER on 03-10-2024 the dentist sent her to [facility] ER due to fact she was acting [...] MOUTH EVERY DAY for 30 glucose blood (Wunsch-BrautkleidTouch Ultra) test strip USE DIRECTED ONCE DAILY HYDROcodone-acetaminophen (Bruce) 5-325 MG tablet 1 tablet, Oral, 2 times daily Lancets (OneTouch Delica Plus Ngoqsn13Q) misc lidocaine (Lidoderm) 5 % patch 1 [...] List Items Addressed This Visit Reactive depression (CMS/[facility]) - Primary Anxiety Health Maintenance Due Topic Date Due Diabetes: Retinopathy Screening 12/10/2023 Influenza Vaccine (1) 03/16/2024 documented in this encounterColumbia Regional HospitalEqvsfolola11-59-9158 Evaluation + Plan note Extracted from: Title:Pain [...] states that they have been giving her Bruce 5/325 twice daily as needed pain that [...] All Problems Resolved: Hypertension / SNOMED CT 65037394 Resolved: Osteoarthritis / SNOMED CT 5008860813 Resolved: High cholesterol / SNOMED CT 4680075930 Resolved: Diabetes mellitus / SNOMED CT 538462925 Histories Past Medical History: Resolved Hypertension (35276097): Resolved. Osteoarthritis (9248756607): Resolved. High cholesterol (0466001846): Resolved. Diabetes mellitus (489940343): Resolved. Family History: Hypertension Father Brother Sister Heart disease Father Diabetes mellitus type 2 Mother Brother Stroke Mother CAD (coronary artery disease) Father Procedure history: Appendectomy (SNOMED CT 625765996). Cholecystectomy (SNOMED CT 72411448). Tonsillectomy (SNOMED CT 597257860). Repair of right hip joint (SNOMED CT 491332087885007). Osteoporotic fracture of left hip (SNOMED CT 312468471470893). Social History Social & Psychosocial Habits Alcohol 10/17/2023isk Assessment: Denies Alcohol Use Substance Abuse 10/17/2023isk Assessment: Denies Substance Abuse Tobacco 10/17/2023 Tobacco Use: Never (less than 100 in l 10/17/2023isk Assessment: Denies Tobacco Use . Physical Examination Vital Signs (last 24 hrs) Last Charted Heart Rate Airrxsuufx74 bpm (OCT 16:18) CUF879 mmHg (OCT 16:) DBP64 mmHg (OCT 16:18) Pwtgrv33 kg (OCT 16:) BMI27.68 (OCT 16:18) General: Alert and oriented, No acute distress. HENT: Normocephalic, Normal hearing. Respiratory: Respirations are non-labored. Cardiovascular: No edema. Musculoskeletal Normal range of motion. Normal strength. Slight pain with movement of the right shoulder and the right knee but fairly normal range of motion. Neurologic: Alert, Oriented. Cognition and Speech: Oriented, Speech clear and coherent. Psychiatric: Cooperative, Appropriate mood & affect. Integumentary: Warm, Dry, [place]. Review / Management Results review: No qualifying [...] with her PCP. She has been getting Bruce from her PCP. 5/325 twice daily. She [...] ranged due to being in a brace/AFO [facility]03-18-2024 Evaluation + Plan noteExtracted from: Title:ED Note Author:Dillon Hurtado DO Date :10/01/23 Acute UTI (N39.0: Urinary tr act infection, site not specified) Orders: cephalexin, 500 mg = 1 cap(s), Oral, q12hr, X 7 day(s), # 14 cap(s), Refills(s) 0, Pharmacy: [facility]/pharmacy #[id number], 175, cm, 10/01/23 5:36:00 EDT, Height/Length Dosing, 55, kg, 10/01/23 5:36:00 EDT, Weight Dosing cephalexin, 500 mg = 1 cap(s), Cap, Oral, Once, Stop date 10/01/23 6:24:00 EDT, STAT, Start date 10/01/23 6:24:00 EDT, 10/01/23 6:24:00 EDT phenazopyridine, 100 mg = 1 tab(s), Oral, TID, X 3 day(s), # 9 tab(s), Refills(s) 0, Pharmacy: [facility]/pharmacy #[id number], 175, cm, 10/01/23 5:36:00 EDT, Height/Length Dosing, 55, kg, 10/01/23 5:36:00 EDT, Weight Dosing UA With Cult Reflex Urine Culture Future Appointments Appointment Date:10/17/2023 10:45:00 AM Scheduled Provider:Kaci Morton PA-C Location:[facility].Pain Mgmt [facility] Appointment Type:Pain Management - New (FT) Diagnostic Tests Pending * Urine Culture 10/01/23 [facility]03-18-2024 Hospital Discharge instructions Patient Education 10/01/2023 06:38:16 [...] Treatment for this condition includes: Antibiotic medicine. Ylpe-mzx-ohzshho medicines to treat discomfort. Drinking enough water [...] Follow these instructions at home: Medicines Take xxxa-zrb-nvcppuj and prescription medicines only as told by [...] provider. Document Revised: 02/11/2021 Document Reviewed: 02/11/2021 JDLab Patient Education 2022 Tamr. Follow Up Care 10/01/2023 05:17:03 With:Aisha RAGLAND Address: [employer] [facility] [place] [address] Business (1) When:Within 3 Day(s) [facility]02-13-2024 History of Present illness Narrative* ANA Whitlock - 08/28/2023 3:03 PM ESTAssociated Problem(s): Chronic pain disorder Patient will call when need refill * ANA Whitlock - 08/28/2023 3:02 PM ESTAssociated Problem(s): Controlled type 2 diabetes mellitus with diabetic polyneuropathy, without dino g-term current use of insulin ([facility]) Well controlled will continue meds * ANA [...] MOUTH EVERY DAY for 30 glucose blood (Wunsch-BrautkleidTouch Ultra) test strip USE DIRECTED ONCE DAILY HYDROcodone-acetaminophen (Bruce) 5-325 MG tablet 1 tablet, Oral, 2 times daily Lancets (OneTouch Delica Plus Ozkkml43G) misc lisinopril 20 MG tablet TAKE 1/4 [...] 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 (CMS/[facility]) Well controlled will continue meds Relevant Orders POCT Glycated hemoglobin, total (Completed) Microalbumin / creatinine urine ratio (Completed) documented in this encounterColumbia Regional HospitalYcpwuaqiec59-01-3998 Evaluation note* Encounter Date Diagnosis Assessment Notes [...] pain of right shoulder (ICD-10 - M25.511) [facility] Other 11-27-2023 Evaluation note* Encounter Date Diagnosis Assessment Notes Treatment Notes Treatment Clinical Notes May, Primary osteoarthritis of right shoulder (ICD-10 - M19.011) [facility] Other 09-06-2023 Evaluation note* Encounter Date Diagnosis [...] pain of right shoulder (ICD-10 - M25.511) [facility] Other 07-31-2023 Evaluation note* Encounter Date Diagnosis Assessment Notes Treatment Notes Treatment Clinical Notes Jan, Primary osteoarthritis of right shoulder (ICD-10 - M19.011) [facility] Other 03-01-2023 Evaluation note* Encounter Date Diagnosis [...] unfortunately her daughter, who would be her rotary drier operator, is having some medical issues and [...] pain of right shoulder (ICD-10 - M25.511) [employer] [facility] Other 11-30-2022 Evaluation note* Encounter Date Diagnosis [...] unfortunately her daughter, who would be her rotary drier operator, is having some medical issues and [...] a trial of 3 months or longer. [employer] [facility] Other 11-28-2022 Evaluation note* Encounter Date Diagnosis Assessment Notes Treatment Notes Treatment Clinical Notes May, Primary osteoarthritis of both knees (ICD-10 - M17.0) [facility] [facility] Other 03-23-2022 Evaluation note* Encounter Date Diagnosis [...] as documented in the electronic medical record. [employer] [facility] Other 09-22-2021 Evaluation note* Encounter Date Diagnosis [...] Other specified postprocedural states (ICD-10 - Z98.890) [facility] Other 10-01-2013 History general Narrative - Reported* Type Description Date Medical History right hip fracture S/P SCREW FIX ATION Medical History HTN Medical History HLD Surgical History RIGHT HIP FRACTURE S/P SCREW FI XATION ([facility]) 04/2013 Surgical History S/P HYSTERECTOMY Surgical History S/P CHOLECYSTECTOMY Surgical History femoral head fixation Hospitalization History ABOVE [employer] [facility] Other Chief complaint+Reason for visit Narrative* Chief Complaint op sp rt shoulder pa in lt knee pain req injection feeling not right after procedure Reason for Visit Osteoarthritis of le ft knee Osteoarthritis of right knee Osteoarthritis of right shoulder [facility] Work Phone: Chief complaint+Reason for visit Narrative* Chief Complaint feeling not right af ter procedure LILIBETH PT OP SP RT KNEE PAIN M17.12 - Unilateral primary osteoarthritis, left k Reason for Visit Osteoarthritis of le ft knee Osteoarthritis of right knee Osteoarthritis of right shoulder [facility] Work Phone: Evaluation noteNortThe [employer] Other Evaluation noteNo assessment information available [facility] Work Phone: Evaluation noteNo InformationNort [employer] Other Evaluation note* Diagnosis Chronic pain disorder- Primary Chronic pain syndrome Controlled type 2 diabetes mellitus with diabetic polyneuropathy, 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 ([facility]) documented in this encounter [facility] HealthcareEvaluation note* Diagnosis Onset Date Resolution Status Osteoarthritis of left knee acute Osteoarthritis of right knee acute Osteoarthritis of right shoulder chronic [facility] Work Phone: Evaluation note* Diagnosis GERD without esophagitis Esophageal reflux documented in this encounter [facility]* Diagnosis Chronic pain disorder- Primary Chronic pain syndrome Controlled type 2 diabetes mellitus with diabetic polyneuropathy, 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 ([facility]) Encounter for immunization Essential hypertension (CMS/HCC) Unspecified essential hypertension Controlled type 2 diabetes mellitus with diabetic polyneuropathy, 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 (CMS/[facility])- Primary Chronic pain disorder Chronic pain syndrome [...] Chronic pain syndrome documented in this encounter [facility] HealthcareEvaluation note* Diagnosis Chronic pain disorder- Primary [...] Reactive depression (CMS/HCC) documented in this encounter [facility] HealthcareEvaluation note* Diagnosis Chronic pain disorder- Primary [...] Dermatophytosis of nail documented in this encounter [facility] HealthcareEvaluation note* Diagnosis Chronic pain disorder- Primary [...] Chronic pain syndrome documented in this encounter [facility] HealthcareEvaluation note* Diagnosis Chronic pain disorder- Primary [...] (CMS/HCC) Chronic pain disorder Chronic pain syndrome GERD without esophagitis Esophageal reflux documented in this encounter [facility]* Diagnosis Diabetic polyneuropathy associated with type 2 diabetes mellitus (CMS/[facility])- Primary Onychomycosis Dermatophytosis of nail documented in this encounter [facility]* Diagnosis Reactive depression ([facility])- Primary Anxiety Anxiety state, unspecified documented in this encounter [facility]* Diagnosis Chronic pain disorder- Primary Chronic pain syndrome Controlled type 2 diabetes mellitus with diabetic polyneuropathy, 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 ([facility]) Encounter for immunization Essential hypertension (CMS/HCC) Unspecified [...] 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 ([facility]/HCC) documented in this encounter [facility]* [...] Chronic pain syndrome documented in this encounter [facility] HealthcareEvaluation note* Diagnosis Chronic pain disorder- Primary [...] Dermatophytosis of nail documented in this encounter [facility] HealthcareEvaluation note* Diagnosis Chronic pain disorder- Primary [...] Unspecified pre-operative examination documented in this encounter [facility] HealthcareEvaluation note* Diagnosis Chronic pain disorder- Primary [...] Chronic pain syndrome documented in this encounter [facility] HealthcareEvaluation note* Diagnosis Chronic pain disorder- Primary [...] Chronic pain syndrome documented in this encounter [facility] HealthcareEvaluation note* Diagnosis Chronic pain disorder- Primary [...] Other follow-up examination documented in this encounter [facility] HealthcareEvaluation note* Diagnosis Chronic pain disorder- Primary [...] state, unspecified Preop examination Unspecified pre-operative examination Controlled type 2 diabetes mellitus with diabetic polyneuropathy, 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 (CMS/HCC) documented in this encounter [facility] HealthcareEvaluation note* Diagnosis Chronic pain disorder- Primary [...] state, unspecified Preop examination Unspecified pre-operative examination Diabetic polyneuropathy associated with type 2 diabetes mellitus (CMS/HCC)- Primary Onychomycosis Dermatophytosis of nail documented in this encounter [facility] HealthcareEvaluation note* Diagnosis Chronic pain disorder- Primary Chronic pain syndrome Controlled type 2 diabetes mellitus with diabetic polyneuropathy, 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 (HCC) Encounter for immunization Essential hypertension Unspecified essential hypertension Controlled type 2 diabetes mellitus with diabetic polyneuropathy, 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 (HCC)- Primary Chronic pain disorder Chronic pain syndrome Essential hypertension Unspecified essential hypertension GERD without esophagitis Esophageal reflux Chronic pain disorder- Primary Chronic pain syndrome Controlled type 2 diabetes mellitus with diabetic polyneuropathy, 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 (HCC) Chronic pain disorder- Primary Chronic pain syndrome Screen for colon cancer Special screening for malignant neoplasms, colon Controlled type 2 diabetes mellitus with diabetic polyneuropathy, 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 ([facility]) History of UTI Dysuria Medicare annual wellness visit, subsequent Chronic pain of right knee- Primary Controlled type 2 diabetes mellitus with diabetic polyneuropathy, 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 (HCC) Chronic pain disorder Chronic pain syndrome Chronic pain of right knee- Primary Controlled type 2 diabetes mellitus with diabetic polyneuropathy, 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 (HCC) Acute non-recurrent frontal sinusitis Anxiety Anxiety state, unspecified Preop examination Unspecified pre-operative examination Bronchitis- Primary Bronchitis, not specified as acute or chronic Controlled type 2 diabetes mellitus with diabetic polyneuropathy, 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 (HCC) GERD without esophagitis Esophageal reflux Anemia due to folic acid deficiency, unspecified deficiency type Breast screening Breast screening, unspecified documented in this encounter [facility] HealthcareEvaluation note* Diagnosis Chronic pain disorder- Primary Chronic pain syndrome Controlled type 2 diabetes mellitus with diabetic polyneuropathy, 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 ([facility]) Encounter for immunization Essential hypertension Unspecified essential hypertension Controlled type 2 diabetes mellitus with diabetic polyneuropathy, 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 (HCC)- Primary Chronic pain disorder Chronic pain syndrome Essential hypertension Unspecified essential hypertension GERD without esophagitis Esophageal reflux Chronic pain disorder- Primary Chronic pain syndrome Controlled type 2 diabetes mellitus with diabetic polyneuropathy, 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 (HCC) Chronic pain disorder- Primary Chronic pain syndrome Screen for colon cancer Special screening for malignant neoplasms, colon Controlled type 2 diabetes mellitus with diabetic polyneuropathy, 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 (HCC) History of UTI Dysuria Medicare annual wellness visit, subsequent Chronic pain of right knee- Primary Controlled type 2 diabetes mellitus with diabetic polyneuropathy, 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 (HCC) Chronic pain disorder Chronic pain syndrome Chronic pain of right knee- Primary Controlled type 2 diabetes mellitus with diabetic polyneuropathy, 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 (HCC) Acute non-recurrent frontal sinusitis Anxiety Anxiety state, unspecified Preop examination Unspecified pre-operative examination Essential hypertension Unspecified essential hypertension documented in this encounter [facility]* Diagnosis Chronic pain disorder- Primary Chronic pain syndrome Controlled type 2 diabetes mellitus with diabetic polyneuropathy, 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 (HCC) Encounter for immunization Essential hypertension Unspecified essential hypertension Controlled type 2 diabetes mellitus with diabetic polyneuropathy, 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 (HCC)- Primary Chronic pain disorder Chronic pain syndrome Essential hypertension Unspecified essential hypertension GERD without esophagitis Esophageal reflux Chronic pain disorder- Primary Chronic pain syndrome Controlled type 2 diabetes mellitus with diabetic polyneuropathy, 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 (HCC) Chronic pain disorder- Primary Chronic pain syndrome Screen for colon cancer Special screening for malignant neoplasms, colon Controlled type 2 diabetes mellitus with diabetic polyneuropathy, 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 (HCC) History of UTI Dysuria Medicare annual wellness visit, subsequent Chronic pain of right knee- Primary Controlled type 2 diabetes mellitus with diabetic polyneuropathy, 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 (HCC) Chronic pain disorder Chronic pain syndrome Chronic pain of right knee- Primary Controlled type 2 diabetes mellitus with diabetic polyneuropathy, 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 (HCC) Acute non-recurrent frontal sinusitis Anxiety Anxiety state, unspecified Preop examination Unspecified pre-operative examination Chronic pain disorder Chronic pain syndrome documented in this encounter [facility] HealthcareHistory general Narrative - [facility] [employer] Other Hospital course Narrative No data available for this section [facility] Discharge instructions No data available for this section [facility] Discharge instructions Additional Instructions Continue current meds Follow-up with your private physician [facility] are [facility] Work Phone: Progress note No data available for this section [facility] for referral (narrative)No reason for referral information availableW[facility] Work Phone: Summary Purpose Family History No Family History [...] Malignant neoplasm of breast Unknown Advance Directives No Advanced Directives Records [...] 2024 3:09pm Primary osteoarthritis of left knee uary 2024 3:09pm Primary osteoarthritis of right shoulder September 03, 2024 3:09pm Osteoarthritis of right shoulder Februar y 2024 3:09pm Chief Complaint Admit Date [...] 2024 3:09pm Primary osteoarthritis of left knee ua2024 3:09pm Primary osteoarthritis of right shoulder [...] 2024 3:09pm Primary osteoarthritis of left knee uary 2024 3:09pm Primary osteoarthritis of right shoulder September 03, 2024 3:09pm Osteoarthritis of right shoulder uar y 2024 3:09pm S/P total knee arthroplasty August 5:51am Primary osteoarthritis of right knee Mar 2024 12:54pm Status post total right knee replacement September 22, 2024 12:54pm Chief Complaint Admit Date Pre-Op RTK September 01, 2024 1:04pm 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, right September 03, 2024 2:03pm H & P RIGHT TOTAL KNEE ARTHROPLASTY 09-09September 03, 2024 3:09pm Knee Pain September 09, 2024 5:51am Knee Pain September 09, 2024 7:17am 2 weeks post op September 22, 2024 12: 54pm 4 WEEKS October 20, 2024 4:22 pm Reason for Visit Admit Date Osteoarthritis of left knee August 3:09pm Osteoarthritis [...] right knee replacement September 22, 2024 12:54pm Primary osteoarthritis of right knee [facility] 2024 4:22pm Status post total right knee replacement October 20, 2024 4:22pm Chief Complaint Admit Date 2 weeks post op September 22, 2024 12: 54pm 4 WEEKS October 20, 2024 4:22 pm 6 WEEKS December 01, 2024 4:05p m s/p RTK 09/09December 19, 2024 4:00p m dysuria, left ear pain December 21, 2024 11 :34am Reason for Visit Admit Date Primary osteoarthritis of right knee Mar 2024 12:54pm Status post total right knee replacement September 22, 2024 12:54pm Primary osteoarthritis of right knee Apr wv 2024 4:22pm Status post total right knee replacement October 20, 2024 4:22pm Primary osteoarthritis of right knee December 01, 2024 4:05pm Status post total right knee replacement December 01, 2024 4:05pm Chief Complaint Admit Date 4 WEEKS October 20, 2024 4:22 pm 6 WEEKS December 01, 2024 4:05p m dysuria, left ear pain December 21, 2024 11 :34am R30.0 December 21, 2024 11:39 am s/p RTK 09/09December 22, 2024 4:30p m Reason for Visit Admit Date Primary osteoarthritis of right knee Apr wv 2024 4:22pm Status post total right knee replacement October 20, 2024 4:22pm Primary osteoarthritis of right knee December 01, 2024 4:05pm Status post total right knee replacement December 01, 2024 4:05pm Impacted cerumen of left ear December 21 025 11:34am UTI (urinary tract infection) December 21, 2024 11:34am Chief Complaint Admit Date 6 WEEKS December 01, 2024 4:05p m dysuria, left ear pain December 21, 2024 11 :34am R30.0 December 21, 2024 11:39 am s/p RTK 09/09January 23, 2025 4:00 pm OP SP RTKA PAIN January 26, 2025 1:04 pm Reason for Visit Admit Date Primary osteoarthritis of right knee December 01, 2024 4:05pm Status post total right knee replacement December 01, 2024 4:05pm Impacted cerumen of left ear December 21 025 11:34am UTI (urinary tract infection) December 21, 2024 11:34am Primary osteoarthritis of left knee January 26, 2025 1:04pm Primary osteoarthritis of right knee [place] 2024 1:04pm Primary osteoarthritis of right shoulder January 26, 2025 1:04pm Status post total right knee replacement January 26, 2025 1:04pm Additional Source Comments INFORMATION SOURCE (unrecogn ized section and content) DATE CREATED AUTHOR 01/03/2018 [facility] DATE CREATED AUTHOR AUTHOR'S ORGANIZ ATION 01/09/2018 [facility] DATE CREATED AUTHOR AUTHOR'S ORGANIZ ATION 10/03/2021 [facility] dical Specialist DATE CREATED AUTHOR AUTHOR'S ORGANIZ ATION 02/25/2022 [facility] DATE CREATED AUTHOR AUTHOR'S ORGANIZ ATION 10/25/2023 [facility] DATE CREATED AUTHOR AUTHOR'S ORGANIZ ATION 01/15/2025 [facility] dical Specialists [facility] DATE CREATED AUTHOR AUTHOR'S ORGANIZ ATION 03/03/2025 [facility] REASON FOR VISIT (unrecogniz ed section and [...] 08/25/2024 Reason Comments Medicare Annual Wellness Visit [facility] Follow[facility]up Follow [facility] from [facility] completed TCM Reason Comments Toenail Care Reason Onset Date Comments Med Refill 02/27/2025 Care Teams (unrecognized sec tion and content) Team Status: Inactive Member Role Status Dates Aisha Ragland PA-C Primary Care Provider Active João Soto DO Attending Provider Active Team Status: Active Member Role Status Dates Aisha Ragalnd PA-C Primary Care Provider Active Team Status: Inactive Member Role Status Dates Aisha Ragland PA-C Primary Care Provider Active Bhaskar Hdz APRN Emergency Provider Active [employer]ing Press Operator Relationship Specialty Start Date End Date Zuri Hannah MD [address] [place] [address] PCP - [facility] 07/16/20 Zuri Hannah MD [address] [place] [address] PCP - General Family Medicine 12/25/22 Team [...] April 23, 2024 End: April 23, 2024 Lisa Castillo NP-C Attending Provider Active Start: April 23, 2024 End: April 23, 2024 Team Status: Active Member Role Status Dates Aisha Ragland PA-C Primary Care Provider Active Start: April 23, 2024 Lisa Castillo NP-C Attending Provider Active Start: April 23, 2024 Forming Press Operator Relationship Specialty Start Date End Date Zuri Hannah MD [address] [place] [address] PCP - [facility] 07/16/20 Zuri Hannah MD [address] [place] [address] PCP - General Family Medicine 09/17/23 [employer]ing Press Operator Relationship Specialty Start Date End Date Zuri Hannah MD [address] [place] [address] PCP - [facility] 07/16/20 Zuri Hannah MD [address] [place] [address] PCP - General Family Medicine 09/17/23 Forming Press Operator Relationship Specialty Start Date End Date Zuri Hannah MD [address] [place] [address] PCP - [facility] 07/16/20 Zuri Hannah MD [address] [place] [address] PCP - General Family Medicine 09/17/23 Forming Press Operator Relationship Specialty Start Date End Date Zuri Hannah MD [address] [place] [address] PCP - [facility] 07/16/20 Zuri Hannah MD [address] [place] [address] PCP - General Family Medicine 09/17/23 [employer]ing Press Operator Relationship Specialty Start Date End Date Zuri Hannah MD [address] [place] [address] PCP - [facility] 07/16/20 Zuri Hannah MD [address] [place] [address] PCP - General Family Medicine 09/17/23 Forming Press Operator Relationship Specialty Start Date End Date Zuri Hannah MD [address] [place] [address] PCP - [facility] 07/16/20 Zuri Hannah MD [address] [place] [address] PCP - General Family Medicine 09/17/23 Forming Press Operator Relationship Specialty Start Date End Date Zuri Hannah MD [address] [place] [address] PCP - [facility] 07/16/20 Zuri Hannah MD [address] [place] [address] PCP - General Family Medicine 09/17/23 Forming Press Operator Relationship Specialty Start Date End Date Zuri Hannah MD [address] [place] [address] PCP - [facility] 07/16/20 Zuri Hannah MD [address] [place] [address] PCP - General Family Medicine 09/17/23 Forming Press Operator Relationship Specialty Start Date End Date Zuri Hannah MD [address] [place] [address] PCP - [facility] 07/16/20 Zuri Hannah MD [address] [place] [address] PCP - General Family Medicine 09/17/23 Forming Press Operator Relationship Specialty Start Date End Date Zuri Hannah MD [address] [place] [address] PCP - [facility] 07/16/20 Zuri Hannah MD [address] [place] [address] PCP - General Family Medicine 09/17/23 Team [...] July 23, 2024 End: July 23, 2024 Forming Press Operator Relationship Specialty Start Date End Date Zuri Hannah MD [address] [place] [address] PCP - [facility] 07/16/20 Zuri Hannah MD [address] [place] [address] PCP - General [facility] Medicine 09/17/23 Forming Press Operator Relationship Specialty Start Date End Date Zuri Hannah MD [address] [place] [address] PCP - [facility] 07/16/20 Zuri Hannah MD [address] [place] [address] PCP - General [facility] Medicine 09/17/23 Team Status: Inactive Member Role Status Dates Aisha Ragland PA-C Primary Care Provider Active Start: August 22, 2024 End: August 22, 2024 João Soto DO Attending Provider Active S tart: August 22, 2024 End: August 22, 2024 Forming Press Operator Relationship Specialty Start Date End Date Zuri Hannah MD [address] [place] [address] PCP - [facility] 07/16/20 Zuri Hannah MD [address] [place] [address] PCP - [facility] Medicine 09/17/23 Team Status: Inactive Member Role Status Dates Aisha Ragland PA-C Primary Care Provider Active Start: August 26, 2024 End: August 26, 2024 João Soto DO Attending Provider Active S tart: August 26, 2024 End: August 26, 2024 Forming Press Operator Relationship Specialty Start Date End Date Zuri Hannah MD [address] [place] [address] PCP - [facility] 07/16/20 Zuri Hannah MD [address] [place] [address] PCP - General Family Medicine 09/17/23 Team Status: Active Member Role Status Dates Aisha Ragland PA-C Primary Care Provider Active Start: September 01, 2024 oJão Soto DO Attending Provider Active S tart: [...] September 22, 2024 End: September 22, 2024 Forming Press Operator Relationship Specialty Start Date End Date Zuri Hannah MD [address] [place] [address] PCP - [facility] 07/16/20 Zuri Hannah MD [address] [place] [address] PCP - General Family Medicine 09/17/23 Forming Press Operator Relationship Specialty Start Date End Date Zuri Hannah MD [address] [place] [address] PCP - [facility] 07/16/20 Zuri Hannah MD [address] [place] [address] PCP - General Family Medicine 09/17/23 Forming Press Operator Relationship Specialty Start Date End Date Zuri Hannah MD [address] [place] [address] PCP - [facility] 07/16/20 Zuri Hannah MD [address] [place] [address] PCP - General Family Medicine 09/17/23 Forming Press Operator Relationship Specialty Start Date End Date Zuri Hannah MD [address] [place] [address] PCP - [facility] 07/16/20 Zuri Hannah MD [address] [place] [address] PCP - General Family Medicine 09/17/23 Forming Press Operator Relationship Specialty Start Date End Date Zuri Hannah MD [address] [place] [address] PCP - [facility] 07/16/20 Zuri Hannah MD [address] [place] [address] PCP - General Family Medicine 09/17/23 Team Status: Inactive Member Role Status Dates Aisha Ragland PA-C Primary Care Provider Active Start: September 01, 2024 End: September 01, 2024 João Soto DO Attending Provider Active S tart: September 01, 2024 End: September 01, 2024 Team Status: Inactive Member Role Status Dates Aisha Ragland PA-C Primary Care Provider Active Start: October 20, 2024 End: October 20, 2024 João Soto DO Attending Provider Active S tart: October 20, 2024 End: October 20, 2024 Team Status: Inactive Member Role Status Dates Aisha Ragland PA-C Primary Care Provider Active Start: December 01, 2024 End: December 01, 2024 João Soto DO Attending Provider Active S tart: December 01, 2024 End: December 01, 2024 Team Status: Active Member Role Status Dates Aisha Ragland PA-C Primary Care Provider Active Start: December 19, 2024 João Soto DO Attending Provider Active S tart: December 19, 2024 Team Status: Inactive Member Role Status Dates Aisha Ragland PA-C Primary Care Provider Active Start: December 21, 2024 End: December 21, 2024 BETSY Cohen RN EXTRUDER-C Attending Provider Active Start: December 21 End: December 21, 2024 Team Status: Inactive Member Role Status Dates Aisha Ragland PA-C Primary Care Provider Active Start: December 21, 2024 End: December 21, 2024 CHARLINE Rosales Attending Provider Active Start: December 21, 2024 End: December 21, 2024 Team Status: Active Member Role Status Dates Aisha Ragland PA-C Primary Care Provider Active Start: December 22, 2024 João Soto DO Attending Provider Active S tart: December 22, 2024 Forming Press Operator Relationship Specialty Start Date End Date Zuri Hannah MD [address] [place] [address] PCP - [facility] 07/16/20 Zuri Hannah MD [address] [place] [address] PCP - General Family Medicine 09/17/23 Forming Press Operator Relationship Specialty Start Date End Date Zuri Hannah MD [address] [place] [address] PCP - [facility] 07/16/20 Zuri Hannah MD [address] [place] [address] PCP - General Family Medicine 09/17/23 Team Status: Active Member Role Status Dates Aisha Ragland PA-C Primary Care Provider Active Start: January 23, 2025 João Soto DO Attending Provider Active S tart: January 23, 2025 Team Status: Inactive Member Role Status Dates Aisha Ragland PA-C Primary Care Provider Active Start: January 26, 2025 End: January 26, 2025 João Soto DO Attending Provider Active S tart: January 26, 2025 End: January 26, 2025 Forming Press Operator Relationship Specialty Start Date End Date Zuri Hannah MD [address] [place] [address] PCP - [facility] 07/16/20 Zuri Hannah MD [address] [place] [address] PCP - General Family Medicine 09/17/23 Forming Press Operator Relationship Specialty Start Date End Date Zuri Hannah MD [address] [place] [address] PCP - [facility] 07/16/20 Zuri Hannah MD [address] [place] [address] PCP - General Family Medicine 09/17/23 Goals [...] BE BASED ON THE PRIMARY CLINICAL RECORDS. [facility]. provides no warranty or guarantee of the accuracy or completeness of information in this document.
--- NOTE | 2025-03-04 19:41 | XR_ITS ---
[place] [id number] Patient Name: ROMULO PETE MRN: [id number] date: 1945 Sex: F Assigned Patient Location: ER Current Patient Location: ER Accession/Order Number: [id number] Exam Date: 03/04/2025 20:00 Report Date: 03/04/2025 20:01 At the request of: RAUL REYES MD Procedure: XR chest 1V Plain film chest Single view HISTORY: Weakness COMPARISON: None FINDINGS: SUPPORT DEVICES: None POSTSURGICAL CHANGES: None HEART: Within normal limits PULMONARY ALICIA: Within normal limits MEDIASTINUM: Unremarkable LUNGS AND PLEURA: No acute lung process, pleural effusion or pneumothorax identified. Mild right hemidiaphragm elevation BONY STRUCTURES: Extensive right shoulder degeneration ADDITIONAL FINDINGS None XR/XR chest 1V IMPRESSION: No acute process. Impression dictated by: Alvin Newby M.D. 03/04/2025 8:01 PM Dictation Location: [place] Electronically authenticated by: [id number] Y Date: 03/04/2025 20:01
--- NOTE | 2025-03-04 19:41 | ECG_ITS ---
[facility] Test Date: 2025-03-04 Pat Name: ROMULO PETE Department: Room: - Gender: Female Osteopathic Resident: : 1945 Requested By: [id number] Order Number: [id number] Reading MD: SHARA NIETO Measurements Intervals Ronald Rate: 98 P: 67 CO: 200 QRS: -24 QRSD: 94 T: 63 QT: 340 QTc: 395 Interpretive Statements 1100 Sinus rhythm 3114 Cannot rule out anterior myocardial infarction, age undetermined 5211 Minimal voltage criteria for LVH, may be normal variant Non specific ST T wave abnormalities 9150 abnormal ECG No previous ECG available for comparison Electronically Signed On 03-05-2025 16:37:17 EDT by SHARA NIETO
--- NOTE | 2025-03-04 19:42 | ED_ITS ---
HPI HPI - General Adult General Chief complaint: Shortness of Breath/Dyspnea Stated complaint: SOB Time Seen by Provider: 03/04/25 19:36 Source: patient Mode of arrival: Wheelchair History of Present Illness HPI narrative: 79-year-old female presented because she felt weak and fatigued. She was discovered to have a fever of 102.8 at triage. She did not realize she had a fever. She has had a slight cough recently. She does not complain of chest pain or abdominal pain or dysuria. No vomiting or diarrhea. She had been at physical therapy today. No known ill contacts. Related Data Previous Rx's ?Medication ?Instructions ?Recorded cephalexin 500 mg capsule 500 mg PO Q8H 7 days #21 cap s 03/04/25 Allergies Allergy/AdvReac Type Severity Reaction Status Date / Time tramadol Allergy shaky Verified 03/04/25 18:27 monostat Allergy Shakiness Uncoded 03/04/25 18:27 Opioid HPI Opioid Management Most Recent Opioid Data: Last SEP Pain Assessment Today, 20:21 Review of Systems ROS Narrative A ten point review of systems is negative except as noted above. PFSH PFSH Social History Little interest or pleasure in doing things: not at all Feeling down, depressed, or hopeless: not at all Exam Narrative Exam Narrative: Nurses note and vital signs reviewed and patient is not hypoxic. General: The patient appears in no apparent distress. Patient is resting comfortably on cart. Skin: Warm, dry, no pallor noted. There is no rash noted. Head: Normocephalic, atraumatic Eye: Normal conjunctiva, no drainage Ears, Nose, Mouth, and Throat: oral mucosa is moist. Nares patent. Cardiovascular: Regular Rate and Rhythm Respiratory: Patient is in no distress, no accessory muscle use, lungs are clear to auscultation, no wheezing, rales or rhonchi Back: non-tender GI: Soft and nontender Musculoskeletal: The patient has no evidence of calf tenderness, no pitting edema, symmetrical pulses noted bilaterally Neurological: A&O, normal speech Psychiatric: Cooperative Constitutional Vital Signs, click to edit/add: Last Vital Signs Temp 101.8 F H 03/04/25 20:03 Pulse 88 03/04/25 20:30 Resp 19 03/04/25 20:30 BP 152/75 H 03/04/25 18:27 Pulse Ox 96 03/04/25 20:30 O2 Del Method Room Air 03/04/25 18:27 Course Vital Signs Vital signs: Vital Signs Temperature 102.8 F H 03/04/25 18:27 Pulse Rate 100 H 03/04/25 18:27 Respiratory Rate 18 03/04/25 18:27 Blood Pressure 152/75 H 03/04/25 18:27 Pulse Oximetry 96 03/04/25 18:27 Oxygen Delivery Method Room Air 03/04/25 18:27 Temperature 101.8 F H 03/04/25 20:03 Pulse Rate 88 03/04/25 20:30 Respiratory Rate 19 03/04/25 20:30 Blood Pressure 152/75 H 03/04/25 18:27 Pulse Oximetry 96 03/04/25 20:30 Oxygen Delivery Method Room Air 03/04/25 18:27 Medical Decision Making MDM Narrative Medical decision making narrative: The patient's fever is coming down with Tylenol. Blood work is negative. UTI suggested on her UA and chest x-ray is negative. COVID-negative. Possibility that she has a viral illness was discussed with the patient and her family. She will be prescribed Keflex and was given her first dose here. Treatment diagnosis and follow-up were discussed with the patient and her family. Differential Diagnosis Differential Diagnosis: Viral illness, COVID, UTI, pneumonia Lab Data Lab results reviewed: Yes I reviewed the patient's lab results Labs: Lab Results 03/04/25 03/04/25 03/04/25 Range/Units 19:55 19:58 20:15 WBC 8.2 (4.0-11.0) 10^3/uL RBC 4.02 L (4.20-5.40) 10^6/uL Hgb 11.5 L (12.0-16.0) g/dL Hct 35.3 L (36.0-48.0) % MCV 87.8 (81.0-99.0) fL MCH 28.6 (26.7-34.0) pg MCHC 32.6 (29.9-35.2) g/dL RDW 14.3 (11.0-15.0) % Plt Count 181 (150-450) 10^3/uL MPV 10.6 (9.5-13.5) fL Neut % (Auto) 90.5 H (43.0-75.0) % Lymph % (Auto) 2.7 L (20.5-60.0) % [place]ferro % (Auto) 5.6 (1.7-12.0) % Eos % (Auto) 0.4 L (0.9-7.0) % Baso % (Auto) 0.4 (0.2-2.0) % Neut # (Auto) 7.5 H (1.4-6.5) 10^3/uL Lymph # (Auto) 0.2 L (1.2-3.8) 10^3/uL [place]ferro # (Auto) 0.5 (0.3-0.8) 10^3/uL Eos # (Auto) 0.0 (0.0-0.7) 10^3/uL Baso # (Auto) 0.0 (0.0-0.1) 10^3/uL Abs Immat Gran (auto) 0.03 (0.00-0.03) 10^3/uL Imm/Tot Granulo (auto) 0.4 (0.0-0.5) % Sodium 134 L (136-145) mmol/L Potassium 4.0 (3.5-5.1) mmol/L Chloride 101 (98-107) mmol/L Carbon Dioxide 27.5 (21.0-32.0) mmol/L Anion Gap 9.5 BUN 26.0 H (7.0-18.0) mg/dL Creatinine 0.44 L (0.55-1.02) mg/dL Est GFR ( Amer) >60 (>=60 mL/min/1.73m^2) Est GFR (Non-Af Amer) >60 (>=60 mL/min/1.73m^2) BUN/Creatinine Ratio 59.1 Glucose 108 H (74-106) mg/dL Calcium 8.7 (8.5-10.1) mg/dL Urine Color Lt. yellow (YELLOW) Urine Clarity Slightly cloudy A (CLEAR) Urine pH 8.0 (5.0-9.0) Ur Specific [place] 1.015 (1.005-1.025) Urine Protein Trace (NEG/TRACE) mg/dL Urine Glucose (UA) Negative (NEGATIVE) mg/dL Urine Ketones Trace A (NEGATIVE) mg/dL Urine Occult Blood Small A (NEGATIVE) Urine Nitrite Negative (NEGATIVE) Urine Bilirubin Negative (NEGATIVE) Urine Urobilinogen 1.0 (0.2-1.0) EU/dL Ur Leukocyte Esterase Small A (NEGATIVE) Urine RBC 2-5 A (0-2) #/HPF Urine WBC 10-20 A (NONE SEEN) #/HPF Ur Squamous Epith Cells Rare (NONE/RARE) #/LPF Urine Crystals None seen (None Seen) #/HPF Urine Bacteria Trace A (NONE SEEN) #/HPF Urine Casts None seen (NONE SEEN) #/LPF Urine Mucus None seen (NONE SEEN) Ur Culture Indicated? Yes-[facility] SARS-CoV-2 Ag (CV2AG) Negative (NEGATIVE) Imaging Data Chest x-ray: Radiologist's impression: ITS Impressions Chest X-Ray 03/04/25 19:41 IMPRESSION: No acute process. Impression dictated by: Alvin Newby M.D. 03/04/2025 8:01 PM Dictation Location: [employer] Electronically authenticated by: [id number] Y Date: 03/04/2025 20:01 ECG Data Attestation: I personally reviewed and interpreted this ECG as follows: (EKG on my interpretation shows sinus rhythm with rate of 98 and no acute change.) Discharge Plan Discharge Chief Complaint: Shortness of Breath/Dyspnea Clinical Impression: Fever, UTI (urinary tract infection) Patient Disposition: Home, Self-Care Time of Disposition Decision: 20:45 Condition: Good Mode of Transportation: Private Vehicle Prescriptions / Home Meds: New cephalexin 500 mg capsule 500 mg PO Q8H 7 Days Qty: 21 0RF Print Language: Sinhala Instructions: Urinary Tract Infection in Women (ED), Fever in Adults (ED) Referrals: ERICK RAGLAND [Primary Care Provider, Family Practice] - 1 week
[2025-03-04 20:13] LABS: Hematocrit 35.3 % (36.0-48.0); Hemoglobin 11.5 g/dL (12.0-16.0); Immature Granulocytes Abs Auto 0.03 10^3/uL (0.00-0.03); Immature Granulocytes Pct Auto 0.4 % (0.0-0.5); Lymphocytes Absolute Auto 0.2 10^3/uL (1.2-3.8); Mean Corpuscular HGB Conc 32.6 g/dL (29.9-35.2); Mean Corpuscular Hemoglobin 28.6 pg (26.7-34.0); Mean Corpuscular Volume 87.8 fL (81.0-99.0); Platelet Count 181 10^3/uL (150-450); Red Blood Count 4.02 10^6/uL (4.20-5.40); White Blood Count 8.2 10^3/uL (4.0-11.0)
[2025-03-04] MEDS: ACETAMINOPHEN 325 MG TABLET 650 MG PO (20:21)
[2025-03-04] MEDS: 0.9 % SODIUM CHLORIDE 500 ML IV (20:22)
[2025-03-04 20:23] LABS: SARS-CoV-2 Ag NEGATIVE (NEGATIVE)
[2025-03-04 20:24] LABS: Anion Gap 9.5; Blood Urea Nitrogen 26.0 mg/dL (7.0-18.0); Calcium 8.7 mg/dL (8.5-10.1); Carbon Dioxide 27.5 mmol/L (21.0-32.0); Chloride 101 mmol/L (98-107); Estimated GFR (African America >60 (>=60 mL/min/1.73m^2); Estimated GFR (Non-African Ame >60 (>=60 mL/min/1.73m^2); Glucose 108 mg/dL (74-106); Potassium 4.0 mmol/L (3.5-5.1); Sodium 134 mmol/L (136-145)
[2025-03-04 20:31] LABS: Glucose Urine UA NEGATIVE (NEGATIVE)
--- NOTE | 2025-03-04 20:32 | PC.NURSE ---
Pt presents to ER with daughter for new and sudden onset of weakness, n/v, diarrhea, and shakiness that started during her physical therapy session today Pts daughter states that while in the waiting room patient had one episode of diarrhea and vomiting Pt not shaking and stands/pivots without issue in the room to use the bedside commode IV labs obtained and EKG Pt placed in a gown and given Tylenol for fever - fluids infusing Will continue to monitor pt and daughter aware and deny further needs or questions at this time
[2025-03-04 20:37] LABS: Cast Seen? NONE SEEN #/LPF (NONE SEEN); Crystals Seen? None Seen #/HPF (None Seen); Urine Culture Indicated YES-FRMC
[2025-03-04] MEDS: CEPHALEXIN 500 MG CAPSULE PO (21:14)
== END 2025-03-04 21:19 | disposition home or self-care (01) ==
PROVIDERS: Emergency Provider Emergency Medicine; PCP Physician Assistant
DX: R50.9 Fever, unspecified (principal); N39.0 Urinary tract infection, site not specified; R06.02 Shortness of breath
CPT/HCPCS: 36415; 71045; 80048; 81001; 85025; 87086; 87088; 87186; 87811; 93005; 99285

== ENCOUNTER 2025-03-26 09:59 | Outpatient (OUT) | payer OTHER, MEDICARE, SELFPAY ==
--- NOTE | 2025-03-26 10:01 | MM_ITS ---
Patient Name: ROMULO PETE MR#: [id number] : 1945 Exam Date: 03/26/2025 Ordering Doctor: MRS. ERICK RAGLAND RADIOLOGY REPORT PROCEDURE: MM SCREENING MAMMO BI COMPARISON: MM TOMOSYNTHESIS SCREENING BI, 05/10/2023. MG MAMM SCREEN 3D LISA CAD, 02/23/2022. MG MAMM SCREEN 3D LISA CAD, 11/04/2020. MG MAMM LISA SCRN W CAD DIG, 03/12/2014. INDICATIONS: Screening Calculator Name NCI Breast Cancer Risk Assessment Tool 5 Year Breast Cancer Risk 1.60% Lifetime Breast Cancer Risk 3.00% Personal Breast Cancer No Personal Ovarian Cancer No Treatments None Family Cancers Aunt-paternal with breast cancer at age ~70. LOCATION: [facility] BREAST COMPOSITION: There are scattered areas of fibroglandular density. FINDINGS: DIAGNOSTIC CATEGORY 0--INCOMPLETE: NEED ADDITIONAL IMAGING EVALUATION. RIGHT BREAST: Focal asymmetry retroareolar region of the right breast. LEFT BREAST: No significant suspicious finding. RECOMMENDATIONS: ADDITIONAL MAMMOGRAPHIC VIEWS REQUIRED: RIGHT BREAST - spot-compression/true lateral views, possible ultrasound recommended. Dictated by: Dedrick Arroyo DO on 03/26/2025 at 15:54 Approved by: Dedrick Arroyo DO on 03/26/2025 at 15:55
--- OUTSIDE RECORDS SUMMARY | 2025-03-26 10:02 | XMS_ITS | Encounter Summary ---
Author Organization [facility] Address [address] [place] [address] Care Team Providers Care Fur Dry Cleaner Name Role Phone Zuri Hannah MD Unavailable Zuri Hannah MD Primary Care Provider [phone] Zuri Hannah MD Primary Care Provider [phone] Reason for Visit * Reason Comments Med Refill Encounter Details Date Type Department Care Team (Late Contact Info) Description 06/14/2023 Refill [facility] [address] [place] [id number] Aisha Rhodes PA [address] [place] [address] Social History Tobacco Use Types Packs/Day Years Used Date Smoking Tobacco: Never Smokeless Tobacco: Never Alcohol Use Standard Drinks/Week Comments Yes 0 (1 standard drink = 0.6 oz pure alcohol) 1-2 drinks less than monthly in the past year, Caffeine intake: 2-3 cups per day PHQ-2 Answer Date Recorded Patient Health Questionnaire-2 Score 0 03/27/2023 Comments Unknown Sex and Gender Information Value Date Recorded Sex Assigned at Not on file Legal Sex Female 6:35 PM EDT Gender Identity Not on file Sexual Orientation Not on file documented as of this encounter Miscellaneous Notes * Telephone Encounter - Lalo Azar MA - 06/14/2023 3:41 PM EST Rx already signed today,06/14/23 documented in this encounter Plan of Treatment Upcoming Encounters Date Type Department Care Team (Late st Contact Info) Description 03/31/2025 2:40 PM EDT Office Visit [facility] [address] [place] [address] Aisha Rhodes PA [address] [place] [address] documented as of this encounter Visit Diagnoses Not on filedocumented in this encounter Additional Health Concerns Assessment Noted Time PHQ-9 Depression Total Score: 0 03/27/20 23 2:00 PM EDT documented as of this encounter Care Teams Fur Dry Cleaner Relationship Specialty Start Date End Date Zuri Hannah MD [address] [place] [address] PCP - Devoted 07/16/20 Zuri Hannah MD [address] [place] [address] PCP - General Family Medicine 12/25/22 09/16/23 Zuri Hannah MD [address] [place] [address] PCP - General Family Medicine 09/17/23 documented as of this encounter
--- OUTSIDE RECORDS SUMMARY | 2025-03-26 10:02 | XMS_ITS | Clinical Summary ---
Author Organization [facility] Address [address] [place], [place] [id number] Care Team Providers Care Room Worker Name Role Phone Willy Dale Primary Care Provider [phone] Allergies Active Allergy Reactions Criticality Noted Date Comments Bees Shortness of Breath 01/20/2016 Tioconazole Other: See Comments 01/20/2016 burning Tramadol Other: See Comments Hot and dizzy Medications famotidine (PEPCID) 20 mg tablet Take 20 mg by mouth twice daily. Active alendronate (FOSAMAX) 35 mg tablet Take 35 mg by mouth once each week. Active acetaminophen (TYLENOL EXTRA STRENGTH) 500 mg tablet Take 500 mg by mouth every 8 hours as needed. Active cholecalciferol , vitamin D3, (VITAMIN D-3) 400 unit cap Take 400 Units by mouth once daily. Active Multivitamin capsule Take 1 capsule by mouth once daily. Active B COMPLEX WITH VITAMIN C (B COMPLEX-C STRESS FORMULA ORAL) Take by mouth. Active Green Tea [place]ie Extract (GREEN TEA) cap Take by mouth. Active DIPHENHYDRAMINE HCL (BENADRYL ALLERGY ORAL) Take by mouth. Active simvastatin (ZOCOR) 40 mg tablet does not know mg, but takes 1/2 tab in AM and 1/2 tab pm Active cholecalciferol (VITAMIN D) 1,000 unit tab tablet one daily Active cyanocobalamin, vitamin B-12, (VITAMIN B-12 ORAL) one daily Active docosahexanoic acid/epa (FISH OIL ORAL) one daily Active atenolol (TENORMIN) 50 mg tablet Take 0.5 tablets every day by oral route. Active lisinopril (ZESTRIL, PRINIVIL) 20 mg tablet Take 0.5 tablets every day by oral route. Active metFORMIN (GLUCOPHAGE) 500 mg tablet Take 250 mg by mouth once daily. Active Active Problems Problem Noted Date Diagnosed Date Lymphopenia 10/24/2017 Social History Tobacco Use Types Packs/Day Years Used Date Smoking Tobacco: Never Cigarettes Smokeless Tobacco: Never Alcohol Use Standard Drinks/Week Comments Not Asked 0 (1 standard drink = 0.6 oz pur e alcohol) Area Deprivation Index Answer Date Lázaro rded National Score (1-100), lower number is lower ri sk Not on file 06/24/2020 State Score (1-10), lower number is lower risk N ot on file 06/24/2020 Data from: https://www.neighborhoodatlas.medicine.[facility]/. Last address used for calculation Not on file 06/24/2020 Comments No Sex and Gender Information Value Date Recorded Sex Assigned at Not on file Legal Sex Female 3:20 PM EDT Gender Identity Not on file Sexual Orientation Not on file Last Filed Vital Signs Vital Sign Reading Time Taken Comments Blood Pressure 150/70 11/07/2017 2:54 PM EDT Pulse 63 11/07/2017 2:54 PM EDT Temperature 36.9 C (98.4 F) 11/07/2017 2:54 PM EDT Respiratory Rate 18 11/07/2017 2:54 PM EDT Oxygen Saturation 100% 11/07/2017 2:54 PM EDT Inhaled Oxygen Concentration - - Weight 66.6 kg (146 lb 12.8 oz) 11/07/2017 2:54 PM EDT Height 149.5 cm (4' 10.86 ) 11/07/2017 2:54 PM E DT Body Mass Index 29.79 11/07/2017 2:54 PM EDT Plan of Treatment Health Maintenance Due Date Last Done Comments Anxiety Screening 1965 Depression Screening 1965 Hepatitis C Screening 1965 DTaP,Tdap,Td Vaccine (1 - Tdap) 1966 Pneumococcal Vaccine: 50+ (1 of 1 - PCV) 1997 Shingrix Vaccine (1 of 2) 1997 Bone Density Screening 2012 Diabetes Screening 11/07/2020 11/07/2017, 0 11/01/2016, 01/25/2016 RSV Vaccine (1 - 1-dose 75+ series) 2022 Advance Directive Discussion 07/16/2024 Influenza Vaccine (#1) 2025 Procedures Procedure Name Priority Date/Time Associated Diagnosis Comments COMPREHENSIVE METABOLIC PANEL Routine 11/07/2017 2:37 PM EDT Lymphopenia from Last 3 Months or Most Recently Relevant to Health Maintenance Results * COMP METABOLIC PANEL (11/07/2017 2:37 PM EDT) Protein, Total 6.4 6.3 - 8.0 g/dL 11/08/2017 2:15 AM EDT [facility] Albumin 4.1 3.9 - 4.9 g/dL 11/08/2017 2:15 AM [facility] Calcium 9.0 8.5 - 10.2 mg/dL 11/08/2017 2:15 AM [facility] Bilirubin, Total 0.3 0.2 - 1.3 mg/dL 11/08/2017 2:15 AM [facility] Alkaline Phosphatase 48 32 - 117 U/L 11/08/2017 2:15 AM [facility] AST 20 13 - 35 U/L 11/08/2017 2:15 AM [facility] Glucose 92 74 - 99 mg/dL 11/08/2017 2:15 AM [facility] Comment: The [place] Diabetes Association (ADA) provides guidance for cutoff values for fasting glucose and random glucose. The ADA defines fasting as no caloric intake for at least 8 hours. Fasting plasma glucose results between 100 to 125 mg/dL indicate increased risk for diabetes (prediabetes). Fasting plasma glucose results greater than or equal to 126 mg/dL meet the criteria for diagnosis of diabetes. In the absence of unequivocal hyperglycemia, results should be confirmed by repeat testing. In a patient with classic symptoms of hyperglycemia or hyperglycemic crisis, random plasma glucose results greater than or equal to 200 mg/dL meet the criteria for diagnosis of diabetes. Reference: Standards of Medical Care in Diabetes 2016, [place] [employer]. Diabetes Care. 2016.39(Suppl 1). BUN 15 7 - 21 mg/dL 11/08/2017 2:15 AM [facility] Creatinine 0.62 0.58 - 0.96 mg/dL 11/08/2017 2:15 AM [facility] Sodium 139 136 - 144 mmol/L 11/08/2017 2:15 AM EDT [facility] Potassium 4.4 3.7 - 5.1 mmol/L 11/08/2017 2:15 AM EDT [facility] Chloride 100 97 - 105 mmol/L 11/08/2017 2:15 AM EDT [facility] CO2 27 22 - 30 mmol/L 11/08/2017 2:15 AM EDT [facility] Anion Gap 12 9 - 18 mmol/L 11/08/2017 2:15 AM EDT [facility] ALT 17 7 - 38 U/L 11/08/2017 2:15 AM EDT [facility] eGFR- >60 11/08/2017 2:15 AM EDT [facility] eGFR-All Other Races >60 . 11/08/2017 2:15 AM EDT [facility] Comment: eGFR (Estimated GFR) Units of measure: mL/min/1.73 meters squared eGFR is derived from the reexpressed MDRD Study equation using the following parameters: serum creatinine, age, gender and race. The creatinine assay has been calibrated to be traceable to IDMS. An eGFR <60 mL/min/1.73m2 for >3 months is consistent with chronic kidney disease. Refer to KDOQI guidelines for clinical interpretation. In patients with unstable renal function, e.g. those with acute kidney injury, the eGFR may not accurately reflect actual GFR. Blood specimen (specimen) BLOOD SPECIMEN / Unknown 11/07/2017 2:37 PM EDT 11/07/2017 2:39 PM EDT Brittany Keyes PA-C LABORATORY Final Result [facility] [address] [place] [address] from Last 3 Months or Most Recently Relevant to Health Maintenance Insurance MEDICARE [facility] Care Teams Room Worker Relationship Specialty Start Date End Date Willy Dale [address] [place] [phone] PCP - General Family Medicine 01/12/16
--- OUTSIDE RECORDS SUMMARY | 2025-03-26 10:02 | XMS_ITS ---
Author Organization [facility] Address [address] [place] [address] Care Team Providers Care Rice Drier Operator Name Role Phone Zuri Hannha MD Unavailable Zuri Hannah MD Primary Care Provider [phone] Chronic Care Management (CCM) Status:Enrolled (Active) Start date:11/30/2022 Enrollment date:11/30/2022 Overview 09/06/23, 1:44 PM - Xochitl Wang LPN- Patient gives verbal consent to be enrolled in CCM Program andunderstands there could be a bill for this service. Case Team Name Relationship Phone Xochitl Wang LPN(Responsible Staff) Clinical Advoc ate [phone] Continued Care and Services Coordination
--- OUTSIDE RECORDS SUMMARY | 2025-03-26 10:02 | XMS_ITS | Encounter Summary ---
Author Organization [facility] Address [address] [facility] [place] [address] Care Team Providers Care Dish Stacker Name Role Phone Zuri Hannah MD Unavailable [phone] Zuri Hannah MD Primary Care Provider [phone] Zuri Hannah MD Primary Care Provider [phone] Encounter Details Date Type Department Care Team (Late st Contact Info) Description 05/14/2023 Clinisync Result Encounter [facility] External Department Unsolicited Aisha Ragland PA [address] [place] [address] Social History Tobacco Use Types Packs/Day Years [...] on file documented as of this encounter Plan of Treatment Upcoming Encounters Date Type Department Care Team (Late st Contact Info) Description 03/31/2025 2:40 PM EDT Office Visit [facility] [place] [facility] [address] [place] [address] Aisha Ragland PA [address] [place] [address] documented as of this encounter Procedures Procedure Name Priority Date/Time Associated Diagnosis Comments MM TOMOSYNTHESIS SCREENING BI 05/14/2023 1:12 PM EDT documented in this encounter Results * MM TOMOSYNTHESIS SCREENING BI (05/14/2023 1:12 PM EDT) Anatomical Region Laterality Modality Other 05/14/2023 1:12 PM EDT Narrative 05/14/2023 1:12 [place] [address] Mammography Report Signed Patient: Nata Pete MR#: [id number] : 1945 Acct:[id number] Age/Sex: 78 / F ADM Date: 05/10/23 Loc: MAMMO Attending Dr: AISHA RAGLAND Ordering Physician: AISHA RAGLAND Results: Date of Service: 05/10/23 Follow Up: Procedure(s): MM tomosynthesis screening BI Accession Number(s): [id number] cc: TITUS HANNAH ; AISHA RAGLAND Patient: NATA PETE Exam Date: 05/10/2023 : 1945 Gender:F Ordering : MRS. AISHA RAGLAND Admission #: [id number] Family : DR. TITUS HANNAH M.D. Order #: [id number] CLICK HERE TO VIEW EXAM RADIOLOGY REPORT PROCEDURE: MM TOMOSYNTHESIS SCREENING BI COMPARISON: MG MAMM SCREEN 3D LISA CAD, 02/23/2022. MG MAMM SCREEN 3D LISA CAD, 11/04/2020. MG MAMM SCREEN LISA W CAD, 10/10/2018. MG MAMM LISA SCRN W CAD DIG, 03/12/2014. INDICATIONS: Screening Calculator Name NCI Breast Cancer Risk Assessment Tool 5 Year Breast Cancer Risk 1.60% Lifetime Breast Cancer Risk 3.20% Personal Breast Cancer No Personal Ovarian Cancer No Treatments None Family Cancers Aunt-paternal with breast cancer at age 70. LOCATION: [facility] BREAST COMPOSITION: Scattered areas fibroglandular density. FINDINGS: DIAGNOSTIC CATEGORY 2--BENIGN FINDING: RIGHT BREAST: No significant suspicious finding. Scattered benign-appearing calcifications are present. No significant change has occurred. LEFT BREAST: No significant suspicious finding. Scattered benign-appearing calcifications are present. No significant change has occurred. RECOMMENDATIONS: ROUTINE MAMMOGRAM AND CLINICAL EVALUATION IN 12 MONTHS. PLEASE NOTE: A NORMAL MAMMOGRAM DOES NOT EXCLUDE THE POSSIBILITY OF BREAST CANCER. A CLINICALLY SUSPICIOUS PALPABLE LUMP SHOULD BE BIOPSIED. Dictated by: Allen Collins M.D. on 05/14/2023 at 13:07 Approved by: Allen Collins M.D. on 05/14/2023 at 13:12 Dictated By: Allen Collins M.D. Signed By: 05/14/231312 DD/ 11 TD/TT: Crimping Press Operator: Procedure Note Radiology, Radiologist, MD - 05/14/2023 [place] [address] Mammography Report Signed Patient: Nata Pete AMR#: [id number] : 1945cct:[id number] Age/Sex: 78 / FADM Date: 05/10/23 Loc: MAMMO Attending Dr: AISHA RAGLAND Ordering Physician: Monico RAGLANDults: Date of Service: 05/10/23Follow Up: Procedure(s): MM tomosynthesis screening BI Accession Number(s): [id number] cc: TITUS HANNAH ; AISHA RAGLAND Patient: NATA PETE Exam Date: 05/10/2023 : 1945 Gender:F Ordering : AISHA OBIE Admission #: [id number] Family : DR. TITUS HANNAH M.D. Order #: [id number] CLICK HERE TO VIEW EXAM RADIOLOGY REPORT PROCEDURE: MM TOMOSYNTHESIS SCREENING BI COMPARISON: MG MAMM SCREEN 3D LISA CAD, 02/23/2022. MG MAMM SCREEN 3DBIL CAD, 11/04/2020. MG MAMM SCREEN LISA W CAD, 10/10/2018. MG MAMM LISA SCRN WCAD DIG, 03/12/2014. INDICATIONS: Screening Calculator Name NCI Breast Cancer Risk Assessment Tool 5 Year Breast Cancer Risk 1.60% Lifetime Breast Cancer Risk 3.20% Personal Breast Cancer No Personal Ovarian Cancer No Treatments None Family Cancers Aunt-paternal with breast cancer at age 70. LOCATION: [facility] BREAST COMPOSITION: Scattered areas fibroglandular density. FINDINGS: DIAGNOSTIC CATEGORY 2--BENIGN FINDING: RIGHT BREAST: No significant suspicious finding. Scatteredbenign-appearing calcifications are present. No significant change has occurred. LEFT BREAST: No significant suspicious finding. Scatteredbenign-appearing calcifications are present. No significant change has occurred. RECOMMENDATIONS: ROUTINE MAMMOGRAM AND CLINICAL EVALUATION IN 12 MONTHS. PLEASE NOTE: A NORMAL MAMMOGRAM DOES NOT EXCLUDE THE POSSIBILITY OFBREAST CANCER. A CLINICALLY SUSPICIOUS PALPABLE LUMP SHOULD BE BIOPSIED. Dictated by: Allen Collins M.D. on 05/14/2023 at 13:07 Approved by: Allen Collins M.D. on 05/14/2023 at 13:12 Dictated By: Allen Collins M.D. Signed By:05/14/23 1313 DD/ 131 TD/TT: [employer]ping Press Operator: us Aisha [facility] Final Res ult documented in this encounter Visit Diagnoses Not on filedocumented in this encounter Additional Health Concerns Assessment Noted Time PHQ-9 Depression Total Score: 0 03/27/20 23 2:00 PM EDT documented as of this encounter Care Teams Dish Stacker Relationship Specialty Start Date End Date Zuri Hannah MD [address] [place] [address] PCP - Devoted 07/16/20 Zuri Hannah MD [address] [place] [address] PCP - General Family Medicine 12/25/22 09/16/23 Zuri Hannah MD [address] [place] [address] PCP - General Family Medicine 09/17/23 documented as of this encounter
--- OUTSIDE RECORDS SUMMARY | 2025-03-26 10:02 | XMS_ITS | Encounter Summary ---
Author Organization [facility] Address [address] [place] [address] Care Team Providers Care Sr. Payroll Manager Name Role Phone Zuri Hannah MD Unavailable [phone] Zuri Hannah MD Primary Care Provider [phone] Encounter Details Date Type Department Care Team (Late Contact Info) Description 01/21/2025 [facility] [address] [place] [phone] Aisha Rhodes PA [address] [place], [place] [id number] POCT glycated hemoglobin, total docked device, Comprehensive metabolic panel, CBC and differential Social History Tobacco Use Types Packs/Day Years Used Date Smoking Tobacco: Never Smokeless Tobacco: Never Alcohol Use Standard Drinks/Week Comments Yes 0 (1 standard drink = 0.6 oz pure alcohol) 1-2 drinks less than monthly in the past year, Caffeine intake: 2-3 cups per day PHQ-2 Answer Date Recorded Patient Health Questionnaire-2 Score 0 10/14/2024 Comments No Sex and Gender Information Value Date Recorded Sex Assigned at Not on file Legal Sex Female 6:35 PM EDT Gender Identity Not on file Sexual Orientation Not on file documented as of this encounter Plan of Treatment Upcoming Encounters Date Type Department Care Team (Late Contact Info) Description 03/31/2025 2:40 PM EDT [facility] [address] [place] [phone] Aisha Rhodes PA [address] [place], [place] [id number] documented as of this encounter Visit Diagnoses Not on filedocumented in this encounter Additional Health Concerns Assessment Noted Time PHQ-9 Depression Total Score: 0 03/27/20 23 2:00 PM EDT documented as of this encounter Care Teams Sr. Payroll Manager Relationship Specialty Start Date End Date Zuri Hannah MD [address] [place] [id number] PCP - Devoted 07/16/20 Zuri Hannah MD [address] [place] [id number] PCP - General Family Medicine 09/17/23 documented as of this encounter
--- OUTSIDE RECORDS SUMMARY | 2025-03-26 10:02 | XMS_ITS | Encounter Summary ---
Author Organization [facility] Address [address] [place] [address] Care Team Providers Care Operations Officer Trust Department Name Role Phone Zuri Hannah MD Unavailable Zuri Hannah MD Primary Care Provider [phone] Zuri Hannah MD Primary Care Provider [phone] Encounter Details Date Type Department Care Team (Late st Contact Info) Description 12/25/2022 Abstract [facility] [address] [place] [phone] Zuri Hannah MD [address] [place] [address] Social History Tobacco Use Types Packs/Day Years Used Date Smoking Tobacco: Never Tobacco Cessation:Counseling Given: Not Answered Alcohol Use Standard Drinks/Week Comments Yes 0 (1 standard drink = 0.6 oz pure alcohol) 1-2 drinks less than monthly in the past year, Caffeine intake: 2-3 cups per day Comments Unknown Sex and Gender Information Value [...] [facility] [address] [place] [phone] Aisha Rhodes PA [address] [place] [address] documented as of this encounter Visit Diagnoses Not on filedocumented in this encounter Care Teams Operations Officer Trust Department Relationship Specialty Start Date End Date Zuri Hannah MD [address] [place] [address] PCP - Devoted 07/16/20 Zuri Hannah MD [address] [place] [address] PCP - General Family Medicine 12/25/22 09/16/23 Zuri Hannah MD [address] [place] [address] PCP - General Family Medicine 09/17/23 documented as of this encounter
--- OUTSIDE RECORDS SUMMARY | 2025-03-26 10:02 | XMS_ITS | Encounter Summary ---
Author Organization [facility] Address [address] [place] [address] Care Team Providers Care High Risk Case Manager Name Role Phone Zuri Hannah MD Unavailable [phone] Zuri Hannah MD Primary Care Provider [phone] Reason for Visit * Reason Comments Med Refill Encounter Details Date Type Department Care Team (Late Contact Info) Description 03/19/2025 Refill [facility] [place] [address] [place] [address] Zuri Hannah MD [address] [place] [address] Essential hypertension Social History Tobacco Use Types Packs/Day Years [...] Description 03/31/2025 2:40 PM EDT Office Visit [facility] [address] [place] [phone] Aisha Rhodes PA [address] [place] [address] documented as of this encounter Visit Diagnoses Diagnosis Essential hypertension Unspecified essential hypertension documented in this encounter Additional Health Concerns Assessment Noted Time PHQ-9 Depression Total Score: 0 03/27/20 23 2:00 PM EDT documented as of this encounter Care Teams High Risk Case Manager Relationship Specialty Start Date End Date Zuri Hannah MD [address] [place] [id number] PCP - Devoted 07/16/20 Zuri Hannah MD [address] [place] [id number] PCP - General Family Medicine 09/17/23 documented as of this encounter
--- OUTSIDE RECORDS SUMMARY | 2025-03-26 10:02 | XMS_ITS | Encounter Summary ---
Author Organization [facility] Address [address] [place] [address] Care Team Providers Care Interpreter And Translator Name Role Phone Zuri Hannah MD Unavailable [phone] Zuri Hannah MD Primary Care Provider [phone] Zuri Hannah MD Primary Care Provider [phone] Encounter Details Date Type Department Care Team (Late Contact Info) Description 04/06/2023 [facility] [address] [place] [address] Zuri Hannah MD [address] [place] [address] Social History Tobacco Use Types Packs/Day Years [...] Description 03/31/2025 2:40 PM EDT [facility] [address] [place] [address] Aisha Rhodes PA [address] [place], [place] [id number] documented as of this encounter Visit Diagnoses Not on filedocumented in this encounter Additional Health Concerns Assessment Noted Time PHQ-9 Depression Total Score: 0 03/27/20 23 2:00 PM EDT documented as of this encounter Care Teams Interpreter And Translator Relationship Specialty Start Date End Date Zuri Hannah MD [address] [place] [address] PCP - Devoted 07/16/20 Zuri Hannah MD [address] [place] [address] PCP - General Family Medicine 12/25/22 09/16/23 Zuri Hannah MD [address] [place] [address] PCP - General Family Medicine 09/17/23 documented as of this encounter
--- OUTSIDE RECORDS SUMMARY | 2025-03-26 10:02 | XMS_ITS | Encounter Summary ---
Author Organization [facility] Address [address] [place] [address] Care Team Providers Care Natural Resource Technician Name Role Phone Zuri Hannah MD Unavailable [phone] Zuri Hannah MD Primary Care Provider Encounter Details Date Type Department Care Team (Late st Contact Info) Description 03/25/2025 Patient Outreach [facility] [address] [place] [phone] Xochitl Wang LPN [address] [place] [address] Social History Tobacco Use Types Packs/Day Years [...] on file documented as of this encounter Progress Notes * Xochitl Wang LPN - 03/25/2025 10:36 AM EDT Pt calls for refill of [facility] to [facility], Last RF 02/27/25 FU OV 03/31/25. No other concerns today<March 25, 2025, 10:39 - Xochitl Wang LPN> * Zuri Hannah MD - 03/25/2025 10:36 AM EDT Rx sent documented in this encounter Miscellaneous Notes * Addendum Note - Zuri Hannah MD - 03/25/2025 10:36 AM EDTAddended by: ZURI HANNAH on: 03/26/2025 09:53 AM Modules accepted: Orders documented in this encounter Plan of Treatment Upcoming Encounters Date Type Department Care Team (Late st Contact Info) Description 03/31/2025 2:40 PM EDT Office Visit [facility] [address] [place] [address] Aisha Rhodes PA [address] [place] [id number] documented as of this encounter Visit Diagnoses Diagnosis Chronic pain disorder- Primary Chronic pain syndrome Essential hypertension Unspecified essential hypertension documented in this encounter Additional Health Concerns Assessment Noted Time PHQ-9 Depression Total Score: 0 03/27/20 23 2:00 PM EDT documented as of this encounter Care Teams Natural Resource Technician Relationship Specialty Start Date End Date Zuri Hannah MD [address] [place] [id number] PCP - Devoted 07/16/20 Zuri Hannah MD [address] [place] [id number] PCP - General Family Medicine 09/17/23 documented as of this encounter
--- OUTSIDE RECORDS SUMMARY | 2025-03-26 10:02 | XMS_ITS | Encounter Summary ---
Author Organization [facility] Address [address] [place] [address] Care Team Providers Care X Ray Technician Name Role Phone Zuri Hannah MD Unavailable [phone] Zuri Hannah MD Primary Care Provider [phone] Encounter Details Date Type Department Care Team (Late st Contact Info) Description 03/13/2025 Patient Outreach [facility] [address] [place] [phone] Xochitl Wang LPN [address] [place] [address] Social History Tobacco Use Types [...] Progress Notes * Xochitl Wang LPN - 03/13/2025 9:20 AM EDT Pt calls to apologize for missing her video appt 03/12/25. She has done them before and always got acall prior. This time she waited and never got a call and waited. The next day she saw an email forthe appt. She rescheduled for next week but felt bad and wants to make sure there is no charge. Advised that I would notify [facility] to have appt removed if possible. <March 13, 2025, 09:30 - Xochitl Wang LPN> documented in this encounter Plan of Treatment Upcoming Encounters Date Type Department Care Team (Late st Contact Info) Description 03/31/2025 2:40 PM EDT Office Visit [facility] [address] [place] [address] Aisha Rhodes PA [address] [place] [address] documented as of this encounter Visit Diagnoses Diagnosis Chronic pain disorder- Primary Chronic pain syndrome Essential hypertension Unspecified essential hypertension documented in this encounter Additional Health Concerns Assessment Noted Time PHQ-9 Depression Total Score: 0 03/27/20 23 2:00 PM EDT documented as of this encounter Care Teams X Ray Technician Relationship Specialty Start Date End Date Zuri Hannah MD [address] [place] [address] PCP - Devoted 07/16/20 Zuri Hannah MD [address] [place] [address] PCP - General Family Medicine 09/17/23 documented as of this encounter
--- OUTSIDE RECORDS SUMMARY | 2025-03-26 10:02 | XMS_ITS | Clinical Summary ---
Author Organization [facility] Address [address] [place] [address] Care Team Providers Care Armed Custom Protection Officer Name Role Phone Zuri Hannah MD Unavailable [phone] Zuri Hannah MD Primary Care Provider [phone] Allergies Active Allergy Reactions Criticality Noted Date Comments Bee Pollen Unknown 12/07/2022 Bee Venom Shortness of breath High 12/07/2022 Miconazole Unknown 12/07/2022 Tramadol Unknown 12/07/2022 Medications Elderberry 575 MG/5ML syrup Active Blood Glucose Monitoring Suppl (ONE TOUCH ULTRA 2) w/Device kit 04/26/20 22 Active CeleBREX 100 MG capsule 1 (one) time each day at the same time Active Lancets (91JinRongTouch Delica Plus [id number]) misc 04/26/20 22 Active omega-3 (Fish Oil) 1200 MG capsule 1 capsule 1 (one) time each day at the same time Active lidocaine (Lidoderm) 5 % patch Apply 1 patch topically Daily Remove & discard patch within 12 hours or as directed by MD. Active Ascorbic Acid (VITAMIN C PO) Take by mouth Active Calcium Carb-Cholecalci ferol (CALCIUM 600 + D PO) Take by mouth Active escitalopram (Lexapro) 20 MG tabletIndicatio ns:Reactive depression Take 1 tablet (20 mg) by mouth at bedtime 90 tablet 3 05/26/20 24 Active furosemide (Lasix) 20 MG tabletIndicatio ns:Essential hypertension,Co ntrolled type 2 diabetes mellitus with diabetic polyneuropathy, without long-term current use of insulin (HCC) TAKE 1 TABLET BY MOUTH EVERY DAY 90 tablet 3 06/26/20 24 Active glucose blood (91JinRongTouch Ultra) test stripIndication s:Controlled type 2 diabetes mellitus with diabetic polyneuropathy, without long-term current use of insulin (HCC) USE DIRECTED ONCE DAILY 100 each 11 07/17/19 25 Active glucose blood (OneTouch Ultra) test stripIndication s:Controlled type 2 diabetes mellitus with diabetic polyneuropathy, without long-term current use of insulin (HCC) USE DIRECTED ONCE DAILY 100 each 11 07/14/20 24 Active LORazepam (Ativan) 0.5 MG tabletIndicatio ns:Anxiety Take 1 tablet (0.5 mg) by mouth 2 (two) times a day as needed for anxiety 10 tablet 08/21/19 25 Active metFORMIN (Glucophage) 500 MG tabletIndicatio ns:Controlled type 2 diabetes mellitus with diabetic polyneuropathy, without long-term current use of insulin (HCC) Take 1 tablet (500 mg) by mouth Daily 90 tablet 3 10/29/19 25 Active simvastatin (Zocor) 40 MG tabletIndicatio ns:Hypercholest eremia,Essentia l hypertension Take 1 tablet (40 mg) by mouth 1 (one) time each day at the same time 90 tablet 3 01/03/20 25 026 Active famotidine (Pepcid) 20 MG tabletIndicatio ns:GERD without esophagitis Take 1 tablet (20 mg) by mouth in the morning. 90 tablet 3 01/14/20 25 Active atenolol (Tenormin) 25 MG tabletIndicatio ns:Essential hypertension Take 1/2 (one-half) tablet by mouth once daily 45 tablet 3 02/09/20 25 Active lisinopril 20 MG tabletIndicatio ns:Essential hypertension TAKE 1/4 (ONE-FOURTH) TABLET BY MOUTH TWICE DAILY 45 tablet 3 03/19/20 25 Active HYDROcodone-uche taminophen ([place]) 5-325 MG tabletIndicatio ns:Chronic pain disorder Take 1 tablet by mouth in the morning and 1 tablet in the evening and 1 tablet before bedtime. Do not start before March 28, 2025. 90 tablet 03/28/20 25 Active lisinopril 20 MG tabletIndicatio ns:Essential hypertension TAKE 1/4 TABLET BY MOUTH TWICE DAILY for 90 45 tablet 3 01/04/20 24 025 Discontinued HYDROcodone-uche taminophen ([place]) 5-325 MG tabletIndicatio ns:Chronic pain disorder Take 1 tablet by mouth in the morning and 1 tablet in the evening and 1 tablet before bedtime. 90 tablet 01/30/20 25 025 Discontinued(Re order) HYDROcodone-uche taminophen ([place]) 5-325 MG tabletIndicatio ns:Chronic pain disorder Take 1 tablet by mouth in the morning and 1 tablet in the evening and 1 tablet before bedtime. 90 tablet 02/27/20 25 025 Discontinued(Re order) HYDROcodone-uche taminophen ([place]) 5-325 MG tabletIndicatio ns:Chronic pain disorder Take 1 tablet by mouth in the morning and 1 tablet in the evening and 1 tablet before bedtime. 90 tablet 02/28/20 25 025 Discontinued(Re order) cephalexin (Keflex) 500 MG capsule 03/04/20 25 025 Active Problems Problem Noted Date Diagnosed Date Bronchitis 01/13/2025 Hospital discharge follow-up 10/25/2024 Generalized edema 10/22/2024 Preop examination 08/21/2024 Assessment & Plan (08/21/2024 3:50 PM EST): Patient has pre-op testing on 08-22 Waiting for results Acute non-recurrent frontal sinusitis 08/21/2024 Anxiety 03/13/2024 Chronic pain of right knee 12/31/2023 Assessment & Plan (12/31/2023 1:59 PM EDT): Patient is doing better since less fluid will follow up as needed History of UTI 11/03/2023 Dysuria 11/03/2023 Medicare annual wellness visit, subsequent 11/02 Assessment & Plan (11/03/2023 1:59 PM EDT): Annual exam in one year Chronic pain disorder 12/07/2022 Assessment & Plan (01/28/2024 4:58 PM EDT): Reviewed agreement Will refill meds Follow up in 3 months Assessment & Plan (11/03/2023 1:58 PM EDT): Patient has been stable and wnl Assessment & Plan (08/28/2023 3:03 PM EST): Patient will call when need refill Assessment & Plan (06/27/2023 11:44 AM EST): Will refill meds See in 3 months Assessment & Plan (2023 3:12 PM EDT): Will refill meds and see in 3 months Controlled type 2 diabetes m shanique with diabetic polyneuropathy, without long-term current use of insulin 12/07/2022 Assessment & Plan (01/28/2024 5:00 PM EDT): Stable Will see in 3 months Assessment & Plan (11/03/2023 1:57 PM EDT): Patient hgba1c wnl Assessment & Plan (08/28/2023 3:02 PM EST): Well controlled will continue meds Assessment & Plan (06/27/2023 11:44 AM EST): stable Assessment & Plan (2023 3:11 PM EDT): Controlled Will see for follow up in 3 months Corns and callosities 12/07/2022 Degenerative joint disease involving multiple lia ints 12/07/2022 Essential hypertension 12/07/2022 Assessment & Plan (06/27/2023 11:43 AM EST): stable GERD without esophagitis 12/07/2022 Assessment & Plan (06/27/2023 11:43 AM EST): stable Hypercholesteremia 12/07/2022 Leg length discrepancy 12/07/2022 Non-pressure chronic ulcer o 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 [address] Xochitl Wang LPN 03/19[facility] [address] [place] [address] Zuri Hannah MD Essential hypertension 03/13/2025 Patient Outreach [facility] [address] [place] [address] Xochitl Wang LPN 03/06/2025 Patient Outreach [facility] [address] [place] [address] Aye Taylor LSW 03/04/2025 Clinisync Result Encounter [facility] Department Unsolicited Provider, Generic External Data 02/27/2025 Refill [facility] [address] [place] [address] Erin Azar MA Chronic pain disorder 02/26/2025 Patient Outreach [facility] [address] [place] [address] Xochitl Wang, YARIEL 02/06/2025 Refill [facility] [address] [place] [address] Zuri Hannah MD Essential hypertension 01/29/2025 Patient Outreach [facility] [address] [place] [address] Maggi Marquez LPN 01/21/2025 Results Follow-Up [facility] [address] [place] [phone] Aisha Rhodes, PA POCT glycated hemoglobin, total docked device, Comprehensive metabolic panel, CBC and differential 01/13/2025 2:40 PM EDT Office Visit [facility] [address] [place] [phone] Aisha Rhodes PA Bronchitis (Primary Dx); Controlled type 2 diabetes mellitus with diabetic polyneuropathy, without long-term current use of insulin (HCC); GERD without esophagitis; Anemia due to folic acid deficiency, unspecified deficiency type; Breast screening 01/13/2025 Bamboo flowsheet [facility] [address] [place] [place] [phone] Yris Donnelly NP 01/13/2025 Travel 01/02/2025 Orders Only [facility] [address] [place] [address] Xochitl Wang LPN Hypercholesteremia (Primary Dx); Essential hypertension 01/01/2025 Patient Outreach [facility] [address] [place] [address] Xochitl Wang LPN from Last 3 Months Immunizations Immunization Administration Dates Next Due Influenza Whole 05/06/2008,05/14/2007 Influenza, High Dose Seasona l, Preservative Free 2022,04/26/2020,05/21/2019,05/26,05/05/2017,05/20/2016 Influenza, High-dose Seasona l, Quadrivalent, Preservative Free 03/27/2023,2022,04/25/2021,04/26 Influenza, injectable, quadrivalent 05/11/2015,1 07/26/2013 Influenza, injectable, quadr ivalent, preservative free 04/24/2017 Influenza, recombinant, quad rivalent, injectable, preservative free 04/24/2024 Pneumococcal Conjugate PCV 13 03/27/2023 Pneumococcal Polysaccharide PPSV23 09/28/2020, Tdap 07/23/2020 Family History Medical History Relation Name Comments Diabetes Brother Cancer Daughter Heart disease Father Hypertension Father Arthritis Mother Diabetes Mother Stroke Mother Hypertension Sister Relation Name Status Comments Brother Daughter Father Mother Sister Social History Tobacco Use Types Packs/Day Years Used Date Smoking Tobacco: Never Smokeless Tobacco: Never Tobacco Cessation:Counseling Given: Not Answered [...] Sign Reading Time Taken Comments Blood Pressure 126/84 01/13/2025 3:11 PM EDT Pulse 69 01/13/2025 3:11 PM EDT Temperature 37.2 C (98.9 F) 01/13/2025 3:11 PM EDT Respiratory Rate 18 10/27/2024 4:00 PM EDT Oxygen Saturation 96% 01/13/2025 3:11 PM EDT Inhaled Oxygen Concentration - - Weight 56 kg (123 lb 6.4 oz) 01/13/2025 3:11 PM EDT Height 147.3 cm (4' 10 ) 01/13/2025 3:11 PM EDT Body Mass Index 25.79 01/13/2025 3:11 PM EDT Plan of Treatment Upcoming Encounters Date Type Department Care Team (Late st Contact Info) Description 03/31/2025 2:40 PM EDT Office Visit [facility] [address] [address] Aisha Rhodes PA [address] [place] [address] Health Maintenance Due Date Last Done Comments Diabetes: Retinopathy Screening 12/10/2023 12/09/2021, 09/03/2020, 01/05/2020 Diabetes: Urine Protein Screening 10/17/2024 10/18/2023, 08/15/2023, 08/14/2023 (Manually Satisfied by [employer]) Influenza Vaccine (#1) 2025 4, 03/27/2023, 2022, Additional history exists Diabetes: Hemoglobin A1C 04/15/20252 025, 08/21/2024, 04/24/2024, Additional history exists Medicare Annual Wellness (AWV) 10/14/2025 0 10/14/2024, 10/18/2023, 11/27/2022, Additional history exists Colorectal Cancer Screening Discontinued FIT-DNA Discontinued 07/20/2020, 07/20/2020 Pneumococcal Vaccine: 65+ Years Completed 03/27/2023, 09/28/2020, 06/27/2017 CT Colonography Discontinued Colonoscopy Discontinued FIT Discontinued FOBT Discontinued Sigmoidoscopy Discontinued Procedures Procedure Name Priority Date/Time Associated Diagnosis Comments URINE CULTURE - FR Routine 03/04/2025 8:15 PM EDT CBC (INCLUDES DIFF/PLT) Routine 01/13/2025 3:51 PM EDT Controlled type 2 diabetes mellitus with diabetic polyneuropathy, without long-term current use of insulin (HCC) GERD without esophagitis Anemia due to folic acid deficiency, unspecified deficiency type COMPREHENSIVE METABOLIC PANEL Routine 01/13/2025 3:51 PM EDT Controlled type 2 diabetes mellitus with diabetic polyneuropathy, without long-term current use of insulin (HCC) GERD without esophagitis Anemia due to folic acid deficiency, unspecified deficiency type POCT GLYCATED HEMOGLOBIN, TOTAL Routine 01/13/2025 3:46 PM EDT Controlled type 2 diabetes mellitus with diabetic polyneuropathy, without long-term current use of insulin (HCC) MICROALBUMIN / CREATININE URINE RATIO Routine 10/18/2023 12:00 AM EDT Controlled type 2 diabetes mellitus with diabetic polyneuropathy, without long-term current use of insulin (HCC) COLOR FUNDUS PHOTOGRAPHY - OU - BOTH EYES Routine 12/09/2021 12:00 PM EDT Type 2 diabetes mellitus with diabetic polyneuropathy (HCC) LAB COLOGUARD COLON CANCER SCREEN Routine 07/20/2020 from Last 3 Months or Most Recently Relevant to Health Maintenance Results * (ABNORMAL) URINE CULTURE - [facility] (03/04/2025 8:15 PM EDT) URINE CULTURE - FR Urine Culture - FR Testing performed at [facility] URINE CULTURE - [facility] [address] [place] [address] [facility] URINE CULTURE - FR O:ESCCOL Isolated [facility] URINE CULTURE - FR Urine Culture - FR [place] Count [facility] URINE CULTURE - FR >100,000 CFU/ml [facility] URINE CULTURE - FR Organism: 1.1 Antibiotic Interpretation MI Status TB URINE CULTURE - FR Amikacin S F(S) TB URINE CULTURE - [facility] Amoxicillin/Clavul anate S F(S) TB URINE CULTURE - [facility] Ampicillin R F(R) TB URINE CULTURE - [facility] Aztreonam S F(S) TB URINE CULTURE - [facility] Ceftazidime S F(S) TB URINE CULTURE - [facility] Ceftazidime/Avibac diaz S F(S) TB URINE CULTURE - [facility] Ceftolozane/Tazoba ctam S F(S) TB URINE CULTURE - [facility] Ciprofloxacin S F(S) TB URINE CULTURE - [facility] Ertapenem S F(S) TB URINE CULTURE - [facility] Gentamicin S F(S) TB URINE CULTURE - [facility] Levofloxacin S F(S) TB URINE CULTURE - [facility] Meropenem S F(S) TB URINE CULTURE - [facility] Meropenem/Vaborbac diaz S F(S) TB URINE CULTURE - [facility] Nitrofurantoin S F(S) TB URINE CULTURE - [facility] Tetracycline S F(S) TB URINE CULTURE - [facility] Tigecycline S F(S) TB URINE CULTURE - [facility] Tobramycin S F(S) TB URINE CULTURE - [facility] Ampicillin/Sulbact am S F(S) TB URINE CULTURE - [facility] Cefazolin S F(S) TB URINE CULTURE - [facility] Cefepime S F(S) TB URINE CULTURE - [facility] Ceftriaxone S F(S) TB URINE CULTURE - [facility] Cefuroxime S F(S) TB URINE CULTURE - [facility] Piperacillin/Tazob actam S F(S) TB URINE CULTURE - [facility] Trimethoprim/Sulfa S F(S) TB 03/04/2025 8:15 PM EDT 03/04/2025 8:28 PM EDT Narrative [facility] - 03/07/2025 6:37 PM EDT us Generic External Data Provider LAB BLOOD ORDERAB LES Final Result [facility] * (ABNORMAL) CBC and differential (01/13/2025 3:51 PM EDT) [facility] WBC 4.1 3.4 - 10.8 x10E3/uL [facility] RBC 4.08 3.77 - 5.28 x10E6/uL [facility] Hgb 11.4 11.1 - 15.9 g/dL [facility] Hct 36.3 34.0 - 46.6 % [facility] MCV 89 79 - 97 fL [facility] MCH 27.9 26.6 - 33.0 pg [facility] MCHC 31.4(L) 31.5 - 35.7 g/dL [facility] RDW 12.4 11.7 - 15.4 % [facility] Platelets 213 150 - 450 x10E3/uL [facility] Neutrophils 65 Not Estab. % [facility] Lymphs 17 Not Estab. % [facility] Monocytes 13 Not Estab. % [facility] Eos 4 Not Estab. % [facility] Basos 1 Not Estab. % [facility] Neutrophils Abs 2.6 1.4 - 7.0 x10E3/uL [facility] Lymphs Abs 0.7 0.7 - 3.1 x10E3/uL [facility] MonocytesAbs 0.5 0.1 - 0.9 x10E3/uL [facility] Eos Abs 0.2 0.0 - 0.4 x10E3/uL [facility] Baso Abs 0.0 0.0 - 0.2 x10E3/uL [facility] Immature Granulocytes 0 Not Estab. % [facility] Immature Grans Abs 0.0 0.0 - 0.1 x10E3/uL [facility] Blood Venous blood specimen / Unknown 01/13/2025 3:51 PM EDT 01/13/2025 Narrative [facility] - 01/14/2025 8:35 AM EDT Performed at: 01 - [facility] [address] [id number] [employer]: Raffi Diallo PhD, Phone: [phone] us Aisha PEREZ LAB BLOOD ORDERABLES Final Result Performing Organization Address [facility]/ZIP Co de Phone Number [facility] * (ABNORMAL) Comprehensive metabolic panel (01/13/2025 3:51 PM EDT) [facility] Glucose 106(H) 70 - 99 mg/dL [facility] BUN 25 8 - 27 mg/dL [facility] Creat 0.52(L) 0.57 - 1.00 mg/dL [facility] EGFR 96 >59 mL/min/1.7 3 [facility] BUN/Creat Ratio 48(H) 12 - 28 [facility] Sodium 135 134 - 144 mmol/L [facility] Potassium 4.5 3.5 - 5.2 mmol/L [facility] Chloride 98 96 - 106 mmol/L [facility] Carbon Dioxide 23 20 - 29 mmol/L [facility] Calcium 9.6 8.7 - 10.3 mg/dL [facility] Protein Total 5.6(L) 6.0 - 8.5 g/dL [facility] Albumin 4.1 3.8 - 4.8 g/dL [facility] Globulin Total 1.5 1.5 - 4.5 g/dL [facility] Bili Total 0.3 0.0 - 1.2 mg/dL [facility] Alk Phosphatase 69 44 - 121 IU/L [facility] AST 19 0 - 40 IU/L [facility] ALT 14 0 - 32 IU/L [facility] Blood Venous blood specimen / Unknown 01/13/2025 3:51 PM EDT 01/13/2025 Narrative [facility] - 01/14/2025 8:35 AM EDT Performed at: 01 - [facility] [address] [id number] [employer]: Raffi Diallo PhD, Phone: [phone] Aisha PEREZ LAB BLOOD ORDERABLES Final Result Performing Organization Address City/[facility]/ZIP Co de Phone Number [facility] * POCT glycated hemoglobin, total docked device (01/13/2025 3:46 PM EDT) Hemoglobin A1C 5.3 Blood 01/13/2025 3:46 PM EDT us Aisha PEREZ POINT OF CARE TEST ENTER/ED IT ORDERABLES Final Result * Microalbumin / creatinine urine ratio (10/18/2023 12:00 AM EDT) CREATININE, RANDOM URINE 98 20 - 275 mg/dL [facility] ALBUMIN, URINE 1.2 See Note: mg/dL [facility] Comment: Reference Range: Reference Range Not established ALBUMIN/CREATININE RATIO, RANDOM URINE 12 <30 mg/g creat [facility] Comment: The ADA defines abnormalities in albumin excretion as follows: Albuminuria Category Result (mg/g creatinine) Normal to Mildly increased <30 Moderately increased 30-299 Severely increased > OR = 300 The ADA recommends that at least two of three specimens collected within a 3-6 month period be abnormal before considering a patient to be within a diagnostic category. Urine Urine specimen obtained by clean catch procedure / Unknown 10/18/2023 10/20/2023 5:13 AM EDT Narrative Resulting Agency Comment Performing Organization Information Site ID: [id number] Name: [facility] Address: [address] [place] [address], [address] [place] [phone] Director: Willie Rodriguez MD Aisha PEREZ LAB URINE ORDERABLES Final Result Performing Organization Address City/State/[facility] Co de Phone Number [facility] * Color Fundus Photography - OU - Both Eyes (12/09/2021 12:00 PM EDT) Anatomical Region Laterality Modality Head Fundus Photograp hy 12/09/2021 12:0 0 PM EDT Narrative 12/09/2021 12:00 PM EDT PERFORMED AT [facility] LOCATION:[id number] see report Procedure Note CONVERSION, GENERIC - 11/29/2022 PERFORMED AT [facility] LOCATION:[id number] see report us Zuri Hannah MD OPHTH PHOTOGRAPHY Final Resul t * Cologuard?? colon cancer screening (07/20/2020) COLOGUARD RESULT REPORTABLE Negative Not Applicable [facility] Comment: A negative result indicates a low likelihood that a colorectal cancer (CRC) or an advanced adenoma (adenomatous polyps with more advanced pre-malignant features) is present. The chance that a person with a negative Cologuard test has a colorectal cancer is less than 1 in 1500 (negative predictive value >99.9%) or has an advanced adenoma is less than 5.3% (negative predictive value 94.7%). These data are based on a prospective cross-sectional screening study of 10,000 individuals at average risk for colorectal cancer who were screened with both Cologuard and colonoscopy. (Luis Fernando Chase et al, N Engl J Med 2014;370(14):6843-2934) The normal value (reference range) for this assay is negative. COLOGUARD RE-SCREENING RECOMMENDATION: Periodic routine colorectal cancer screening is an important part of preventive healthcare for asymptomatic persons at average risk for colorectal cancer. Following a negative Cologuard result, the [place] [employer] and U.S. Multi-Society Task Force screening guidelines recommend a Cologuard re-screening interval of 3 years. References: [place] (ACS). Colorectal cancer prevention and early detection. [place], [place]: [employer] [place]; [updated 2015Nov 06]. https://www.cancer.org/cancer/yeqfn-cwcxat-uvxaxr/fijitlmic-fljznoxrm-txrobok/ac s-rec ommendations.html. Accessed March 15, 2018; Andres LEE, Elenita MEJIA, Jerrica BLANCO, Colorectal Cancer Screening: Recommendations for Physicians and Patients from the U.S. Multi-Society Task Force on Colorectal Cancer Screening, Am J Gastroenterology 2017; 112:4974-0599. TEST TYPE: Composite algorithmic analysis of stool DNA-biomarkers with hemoglobin immunoassay. Quantitative values of individual biomarkers are not reportable and are not associated with individual biomarker result reference ranges. PRECAUTIONS AND LIMITATIONS: Cologuard is intended for colorectal cancer screening of adults of either sex, 45 years or older, who are at average-risk for colorectal cancer (CRC). Cologuard has been approved for use by the U.S. FDA. Cologuard may produce a false negative or false positive result. A negative Cologuard test result does not guarantee the absence of CRC or advanced adenoma (pre-cancer). Patients with a negative Cologuard test result should be advised to continue participating in a colorectal cancer screening program. The screening interval for Cologuard is currently recommended at an interval of every 3 years by the [place] [employer] and U.S. Multi-Society Task Force. A false positive result occurs when Cologuard produces a positive result, even though a colonoscopy may not find colorectal cancer or precancerous polyps. The performance of Cologuard has been established in a cross sectional study (i.e., single point in time) of average-risk adults aged 50-84. Cologuard performance in patients ages 45 to 49 years was estimated by sub-group analysis of near-age groups. Cologuard performance data in a 10,000 patient pivotal study using colonoscopy as the reference method can be accessed at the following location: www.[employer]iol[employer]Rx/results. Additional description of the Cologuard test process, warnings and precautions can be found at www.cologuardtest.com. Rx only. 07/20/2020 Zuri Hannah MD LAB MOLECULAR DIAGNOSTICS ORD ERABLES Final Result [facility] from Last 3 Months or Most Recently Relevant to Health Maintenance Insurance [facility] AARP Care Teams Armed Custom Protection Officer Relationship Specialty Start Date End Date Zuri Hannah MD [address] [place] [address] PCP - Devoted 07/16/20 Zuri Hannah MD [address] [place] [address] PCP - General Family Medicine 09/17/23
--- OUTSIDE RECORDS SUMMARY | 2025-03-26 10:15 | XMS_ITS | CCD ---
Author Organization [facility] Care Team Providers Care Wrapper Counter Name Role Phone PAULA, WAYNE P Unavailable [...] Care Provider DO João Soto Attending Provider [phone] Lisa Castillo Unavailable ISELA Ragland Primary Care Provider [phone] GERARDO Hdz Emergency Provider Zuri Hannah MD Unavailable Zuri Hannah MD Primary Care Provider Aisha RAGLAND Primary Care Physician Kaci Morton Admitting Unavailable Kaci Morton Attending Unavailable Dillon Hurtado Attending Unavailable Aisha RAGLAND Referring Unavailable ISELA Morton Admitting Unavailabl e Kaci Morton Attending Unavailable ISELA Ragland Primary Care Provider Boss, MD Adam Emergency Provider Jonathan ASSOCIATE PROFESSOR OF SOCIOLOGY-C Lisa Lei Attending Provider Camden CHESTER, Zuri Song Primary Care Provider Aisha Ragland PA-C Primary Care Provider [phone] João Soto DO Attending Provider Aisha Ragland PA-C Primary Care Provider João Soto DO Attending Provider Zuri Hannah MD Unavailable [phone] Zuri Hannah MD Primary Care Provider Aisha Ragland PA-C Primary Care Provider João Soto DO Attending Provider [phone] Aisha Ragland PA-C Primary Care Provider João Soto DO Attending Provider Aisha Ragland PA-C Primary Care Provider Amanda Cabral Attending Provider João Soto DO Attending Provider [phone] TABITHA VALENTINO Attending Unavailabl AISHA Graham Attending Unavailable AISHA RAGLAND Attending Unavailable AISHA RAGLAND Attending Unavailable TABITHA VALENTINO Attending Unavailabl e AISHA RAGLAND Attending Unavailable AISHA RAGLAND Attending Unavailable TABITHA VALENTINO Attending Unavailabl e AISHA RAGLAND Attending Unavailable TABITHA VALENTINO Attending Unavailabl e AISHA RAGLAND Attending Unavailable Aisha Ragland PA-C Primary Care Provider João Soto DO Attending Provider Amanda Roberts APRN Attending Provider Aisha Ragland PA-C Primary Care Provider João Soto DO Attending Provider Alvin Benito DO Attending Provider [phone] Amanda Roberts Attending Unavailable Amanda Roberts Admitting Unavailable Meagan, Aisha Jefferson Primary Care Unavailable Brtitany, João A Attending Unavailable Meagan, Aisha J Primary Care Unavailable Brittany, João A Admitting Unavailable Brittany, João A Attending Unavailable Meagan, Aisha J Primary Care Unavailable Brittany, Ojão A Admitting Unavailable Brittany, João A Attending Unavailable Meagan, Aisha J Primary Care Unavailable Brittany, João A Admitting Unavailable Brittany, João A Attending Unavailable Meagan, Aisha J Primary Care Unavailable Brittany, João A Admitting Unavailable Brittany, João A Attending Unavailable Brittany, João A Admitting Unavailable Meagan, Aisha J Primary Care Unavailable Alvin Benito Attending Unavailable Alvin Benito Admitting Unavailable Lisa Castillo Attending Unavailable Lisa Castillo Admitting Unavailable Meagan, Aisha J Primary Care Unavailable Brittany, João A Attending Unavailable Meagan, Aisha J Primary Care Unavailable Brittany, João A Admitting Unavailable Brittany, João A Attending Unavailable Brittany, João A Admitting Unavailable Allergies Allergy Classification Reported Allergen(s) Allergy Type Date of Onset Reaction(s) Facility (1 source) Bee; Translations: [BEES] Propensity to adverse reactions (disorder) 6 AOF [facility] Repository (20 sources) tioconazole; Translations: [TIOCONAZOLE] Drug Allergy 6 AOF, Itching, Itching, rash [facility] Repository (15 sources) Bee/Wasp/Ant venom; Translations: [Bee Stings] Propensity to adverse reactions anaphylaxis, Unknown (qualifier value) [facility] (11 sources) Miconazole Drug Allergy rash [employer] Other (20 sources) traMADol; Translations: [tramadol] Drug Allergy 1 Unknown, Unknown (qualifier value) [facility] (1 source) Bee pollen Drug allergy (disorder) 3 [facility] Repository (1 source) Miconazole Drug Allergy 3 [facility] Repository (3 sources) venom-honey bee Allergy to substance 1 Fainting [facility] (20 sources) Bee pollen Allergy to substance 3 Unknown [facility] Healthcare Work Phone: (20 sources) Honey bee venom Allergy to substance 3 Shortness of breath [facility] (20 sources) Miconazole; Translations: [miconazole topical] Drug Allergy 3 Unknown, Unknown (qualifier value) [facility] (3 sources) Latex; Translations: [Latex] Drug allergy Other (qualifier value) [facility] (1 source) Miconazole; Translations: [Miconazole Nitrate] Drug Allergy [facility] Repository (19 sources) bee venom protein (honey bee); Translations: [bee venom protein (honey bee)] Allergy to substance 4 anaphylaxis [facility] (1 source) traMADol Drug Allergy 5 [facility] Repository Medications Current Medications Medication Drug Class(es) Dates Sig (Normalized) Sig (Original) acetaminophen 500 mg oral tablet (20 sources) Start: 09-11-2024 take 2 tablets by mouth every eight hours Start: 05-19-2019 End: 07-15-2023 take 1 tablet [...] oral tablet (20 sources) Opioid Agonist Start: 12-01-2024 End: 02-27-2025 take 1 tablet by mouth in the morning, then take 1 tablet by mouth in the evening, then take 1 tablet by mouth at bedtime HYDROcodone-acetaminophen (Borger) 5-325 MG tablet Indications: Chronic pain disorder Take 1 tablet by mouth in the morning and 1 tablet in the evening and 1 tablet before bedtime. 90 tablet 02/27/2025 Active Start: 07-28-2024 End: 10-28-2024 take 1 tablet by mouth in the morning, then take 1 tablet by mouth in the evening, then take 1 tablet by mouth at bedtime HYDROcodone-acetaminophen (Borger) 5-325 MG tablet Indications: Chronic pain disorder Take 1 tablet by mouth in the morning and 1 tablet in the evening and 1 tablet before bedtime. 90 tablet 10/28/2024 Active Start: 07-01-2024 take 1 tablet by giuseppe th in the morning, then take 1 tablet by mouth in the evening, then take 1 tablet by mouth at bedtime HYDROcodone-acetaminophen (Borger) 5-325 MG tablet Indications: Chronic pain disorder Take 1 tablet by mouth in the morning and 1 tablet in the evening and 1 tablet before bedtime. 90 tablet 07/01/2024 Active Start: 04-07-2024 End: 06-02-2024 take 1 tablet by mouth in the morning, then take 1 tablet by mouth in the evening, then take 1 tablet by mouth at bedtime HYDROcodone-acetaminophen (Borger) 5-325 MG tablet Indications: Chronic pain disorder [...] tablet by mouth in the morning HYDROcodone-acetaminophen (Borger) 5-325 MG tablet Indications: Chronic pain disorder [...] C Start: 08-22-2024 take 1 tablet by giuseppe th once daily Start: 04-28-2019 End: 05-20-2019 take 1 tablet [...] 45 tablet 3 02/08/2025 Active Start: 08-22-2024 Start: 01-04-2024 End: 01-03-2025 take 0.5 tablet [...] D Start: 08-22-2024 take 1 tablet by giuseppe th once daily Start: 04-05-2020 End: 07-15-2023 take 1 tablet [...] 7:54pm carbamide peroxide 65 mg/ml otic solution (5 sources) Start: 12-21-2024 elderberry fruit 200 mg oral capsule (13 sources) Start: 08-22-2024 take 1 capsule by mouth once daily Elderberry preparation (20 sources) Start: 10-17-2023 elderberry [...] 10 mg by mouth twice harleen y Start: 07-15-2023 Escitalopram O xalate Active MG [...] take 10 mg by mouth twice daily Start: 10-17-2023 furosemide Ref ills(s) 0 Start [...] apply 1 dose transdermal route once daily Start: 09-17-2023 End: 10-17-2023 apply 1 dose [...] take 5 mg by mouth twice daily Start: 06-07-2024 take 1 tablet by giuseppe th once daily Lisinopril 20 mg tablet Active 20 MG PO Daily June 07, 2024 12:00am Start: 01-04-2024 End: 03-19-2025 take 0.25 tablet by mouth twice daily lisinopril 20 MG tablet Indications: Essential hypertension TAKE 1/4 (ONE-FOURTH) TABLET BY MOUTH TWICE DAILY 45 tablet 3 03/19/2025 Active Start: 06-18-2020 take 0.25 tablet by [...] day at the same time. 0 Active [place] 7-Pmh-Vur-Fish Oil (Fi sh Oil) 1,200 (144-216) mg capsule (14 sources) Start: 06-07-2024 take 1 capsule by mo ut once daily Start: 06-07-2024 take 1 capsule by [facility] once daily [place] 0-Lam-Joz-Fish Oil (Fish Oil) 1,200 (144-216) mg capsule Active 1 CAP PO Daily June 07, 2024 1:00am Complies with drug therapy Start: 06-07-2024 take 1 capsule by mo ut once daily [place] 4-Fvz-Lle-Fish Oil (Fish Oil) 1,200 (144-216) mg capsule Active 1 CAP PO Daily June 07, 2024 1:00am Start: 06-07-2024 take 1 capsule [facility] daily [place] 7-Rkp-Uez-Fish Oil (Fish Oil) 1,200 (144-216) mg capsule Active 1 CAP PO Daily June 07, 2024 12:00am Start: 06-07-2024 [place] 3-Dha-Ep a-Fish Oil (Fish Oil) 1,200 (144-216) mg capsule Active CAP PO June 07, 2024 12:00am phenazopyridine hydrochloride 100 mg oral tablet (1 source) Start: 10-01-2023 End: 10-04-2023 take 1 tablet by mouth three times daily Pyridium 100 mg Tab 100 mg = 1 tab(s), Oral, TID, X 3 day(s), # 9 tab(s), Refills(s) 0, Pharmacy: [facility]/pharmacy #[id number], 175, cm, 10/01/23 5:36:00 EDT, Height/Length [...] 9:50am warfarin sodium 4 mg oral tablet (20 sources) Vitamin K Antagonist Start: 06-18-2020 warfarin [...] q8hr, # 12 tab(s), Refills(s) 0, Pharmacy: [id number], 144, cm, 07/22/21 18:14:00 [...] 2023 3:00pm castor oil 0.788 mg/mg / pakistani balsam 0.087 mg/mg topical ointment (20 sources) Standardized Chemical Allergen Start: 05-19-2019 End: 04-05-2020 Balsam [place] Oil (Venelex) Ointment Discontinued 1 APPLIC TOPICAL Twice daily as needed for Skin Irritation 0 May 19, 2019 1:00am April 05, 2020 7:50pm celecoxib 100 mg oral capsule (20 sources) Nonsteroidal Anti-inflammatory Drug Start: 10-17-2023 CeleBREX 100 mg C ap Refills(s) 0 Start Date: 10/17/23 Status: Ordered Start: 10-10-2023 End: 02-05-2025 take 1 capsule by mouth twice daily at mealtime Celecoxib 100 mg capsule Discontinued 0 .ROUTE .COMPLEX 60 September 12, 2024 9:56am February 05, 2025 4:01pm TAKE 1 CAPSULE BY MOUTH TWICE A DAY WITH FOOD Start: 07-15-2023 End: 10-10-2023 take 1 capsule by mouth twice daily Celecoxib 100 mg capsule Discontinued 100 MG PO Twice daily 60 October 08, 2023 1:00pm October 10, 2023 10:17am Start: 07-15-2023 End: 10-08-2023 Celecoxib Discontinued MG De cember 2022 1:00am October 08, 2023 1:01pm Start: 02-08-2022 take 1 capsule by [facility] every twelve hours CeleBREX 100 MG 1 capsule with food Orally Twice a day for 30 days Jan, Active CeleBREX 100 MG capsule 1 (one) time each day at the same time Active cephalexin 500 mg oral capsule (20 sources) Cephalosporin Antibacterial Start: 12-21-2024 End: 01-26-2025 take 1 capsule by mouth twice daily Cephalexin 500 mg capsule Discontinued 500 MG PO Twice daily December 21, 2024 12:00am January 26, 2025 1:20pm Start: 08-21-2024 End: 09-09-2024 take 1 capsule by mouth twice daily Cephalexin 500 mg capsule Discontinued 500 MG PO Twice daily August 22, 2024 1:00am September 09, 2024 7:25am Start: 10-01-2023 End: 10-08-2023 take 1 capsule by mouth every twelve hours Keflex 500 mg Cap 500 mg = 1 cap(s), Oral, q12hr, X 7 day(s), # 14 cap(s), Refills(s) 0, Pharmacy: [facility]/pharmacy #[id number], 175, cm, 10/01/23 5:36:00 EDT, Height/Length [...] Capsule Discontinued 100 MG PO Twice daily May 19, 2019 1:00am April 05, 2020 7:54pm doxycycline hyclate 100 mg oral tablet (20 sources) Tetracycline-class Drug Start: 09-11-2024 End: 12-21-2024 take 1 tablet by mouth twice daily Doxycycline Hyclate 100 mg Tablet Discontinued 100 MG PO Twice daily September 11, 2024 1:00am December 21, 2024 [...] Active magnesium hydroxide 80 mg/ml oral suspension (20 sources) Start: 04-28-2019 End: 05-20-2019 take 1 mL by mouth once daily as needed for constipation Magnesium Hydroxide (Milk Of Magnesia) 400 mg/5 mL Suspension Discontinued 30 ML PO Daily as needed for Constipation 0 April 28, 2019 12:00am May 20, 2019 9:50am metoprolol tartrate 25 mg oral tablet (20 sources) beta-Adrenergic Panchito Start: 05-19-2019 End: 04-05-2020 take 1 tablet by mouth twice daily Metoprolol Tartrate 25 mg Tablet Discontinued 25 MG PO Twice daily May 19, 2019 1:00am April 05, 2020 7:52pm omeprazole 20 mg delayed release oral capsule (20 sources) Proton Pump Inhibitor Start: 05-19-2019 End: [...] 7:53pm ondansetron 4 mg disintegrating oral tablet (20 sources) Serotonin-3 Receptor Antagonist Start: 05-19-2019 End: [...] for Pain 42 7 September 22, 2024 October 13, 2024 1:49pm dispense 42 (forty-two) tablets diagnosis Z96.659 Start: 09-11-2024 End: 09-11-2024 take 1 tablet by mouth every four hours as needed for pain Oxycodone 5 mg tablet Discontinued 5 MG PO Q4H as needed for Pain 42 7 September 11, 2024 September 11, 2024 1:29pm Start: 09-11-2024 End: 09-11-2024 take 1 tablet by mouth every four hours as needed for pain Oxycodone 5 mg tablet Discontinued 5 MG PO Q4H as needed for Pain 42 7 September 11, 2024 September 11, 2024 1:37pm [...] April 05, 2020 7:53pm polyethylene glycol 3350 66888 mg powder for oral solution (20 sources) Osmotic Laxative Start: 05-19-2019 End: 07-15-2023 [...] 9:19am must administer with a meal/food sennosides, long term 8.6 mg oral tablet (20 sources) Start: 05-19-2019 End: 04-05-2020 take 2 tablets by mouth once daily as needed Sennosides (Senna Lax) 8.6 mg Tablet Discontinued 2 TAB PO DAILY@12 as needed for If no BM in 2 days 60 May 19, 2019 1:00am April 05, [...] Date Documented Da te Episodic/Chronic Administrative/social admission (20 sources) Other reduced mobility; Translations: [Impaired mobility and activities of daily living] 04-29-2019 Episodic Comment on above: Problem List clean-u p per request of Phys. EHR Cmte Anxiety disorders (20 sources) Anxiety; Translations: [Anxiety disorder, unspecified] Onset: 03-13-2024 03-13-2024 Chronic Chronic obstructive pulmonary disease and bronchiectasis (8 sources) Bronchitis; Translations: [Bronchitis, not specified as acute or chronic] Onset: 01-13-2025 01-13-2025 Episodic Chronic ulcer of skin (20 sources) Non-pressure chronic ulcer of other part of right foot limited to breakdown of skin; Translations: [Ulcer of other part of foot] Onset: 12-07-2022 12-07-2022 Chronic Deficiency and other anemia (20 sources) Anemia; Translations: [Anemia, unspecified] 04-29-2019 Episodic [...] p per request of Phys. EHR Cmte Immunizations and screening for infectious disease (2 sources) Needs influenza immunization; Translations: [Encounter for immunization] 04-23-2024 Episodic Malaise and fatigue (17 sources) Asthenia; Translations: [Weakness] 03-10-2024 Episodic Mood disorders (20 sources) Reactive depression (situational); Translations: [Major depressive disorder, single episode, unspecified] Onset: 12-07-2022 12-07-2022 Chronic Nausea and vomiting (20 sources) Nausea and vomiting; Translations: [Nausea with vomiting, unspecified] 04-29-2019 Episodic Comment on above: Problem List clean-u p per request of Phys. EHR Cmte Nonspecific chest pain (17 sources) Atypical chest pain; Translations: [Other chest pain] 03-10-2024 Episodic Open wounds of head; neck; and trunk (20 sources) Tear of skin; Translations: [Skin tear] [...] Translations: [Aftercare following joint replacement surgery] Onset: 03-23-2025 Chronic Other circulatory disease (20 sources) Raynaud's disease; Translations: [Raynaud's syndrome without gangrene] Onset: 12-07-2022 12-07-2022 Chronic Other connective tissue disease (8 sources) History of total knee arthroplasty; Translations: [Presence of unspecified artificial knee joint] 09-09-2024 Chronic Other connective tissue disease (3 sources) Presence of unspecified artificial knee joint; Translations: [Knee joint replacement] 09-11-2024 Chronic Other connective tissue disease (8 sources) Presence of right artificial knee joint; Translations: [Knee joint replacement] 09-22-2024 Chronic Other connective tissue disease (20 sources) Pain in left lower limb; Translations: [Pain in left leg] 05-31-2020 Episodic Comment on above: Problem List clean-u p per request of Phys. EHR Cmte Other connective tissue disease (20 sources) Musculoskeletal pain; Translations: [Myalgia, other site] [...] Episodic Other ear and sense organ disorders (8 sources) Impacted cerumen in left ear; Translations: [Impacted cerumen, left ear] 12-21-2024 Episodic Other gastrointestinal disorders (20 sources) Constipation; Translations: [Constipation, unspecified] 04-29-2019 Episodic Comment on above: Problem List clean-u p per request of Phys. EHR Cmte Other injuries and conditions due to external causes (20 sources) History of fall; Translations: [History of falling] 04-29-2019 Episodic Comment on above: Problem List clean-u p per request of Phys. EHR Cmte Other injuries and conditions due to external causes (4 sources) Fracture of bone; Translations: [Other injury of unspecified body region, initial encounter] 03-18-2025 Episodic Other lower respiratory disease (14 sources) Acute lower respiratory tract infection; Translations: [Unspecified acute lower respiratory infection] 06-07-2024 Episodic Other lower respiratory disease (5 sources) Unspecified acute lower respiratory infection; Translations: [Other diseases of respiratory system, not elsewhere classified] 06-07-2024 Episodic Other nervous system disorders (20 sources) Chronic pain syndrome; Translations: [Chronic pain syndrome] Onset: 12-07-2022 08-14-2023 Chronic Other nervous system disorders (20 sources) Postoperative pain ; Translations: [Other acute [...] shoulder] 05-05-2019 Episodic Other non-traumatic joint disorders (20 sources) Hip pain; Translations: [Pain in left hip] 04-25-2019 Episodic Comment on above: Problem List clean-u p per request of Phys. EHR Cmte Other non-traumatic joint disorders (20 sources) Pain in right shoulder; Translations: [Right [...] request of Phys. EHR Cmte Pathological fracture (20 sources) Pathological fracture of femur due to [...] BREAST] Onset: 02-24-2022 Episodic Residual codes; unclassified (20 sources) Patient encounter status; Translations: [Encounter for prophylactic measures, unspecified] 04-29-2019 Episodic Comment on above: Problem List clean-u p per request of Phys. EHR Cmte Unclassified (1 source) Unknown / UNK(Unknown) Onset: 11-07-2017 Urinary tract infections (11 sources) Urinary tract infectious disease; Translations: [Urinary tract infection, site not specified] Onset: 10-01-2023 Episodic Past or Other Problems Problem Classification Problem Date Documented Date Episodic/Chronic Genitourinary symptoms and ill-defined conditions (20 sources) History of urinary tract infection; Translations: [Personal history of urinary (tract) infections] Onset: 11-03-2023 11-03-2023 Episodic Mood disorders (20 sources) Mood disorders Onset: 03-27-2023 03-27-2023 Mycoses (20 sources) Onychomycosis; Translations: [Tinea unguium] Onset: 12-07-2022 12-07-2022 Episodic Other acquired deformities (20 sources) Leg length inequality; Translations: [Unequal limb length (acquired), unspecified site] Onset: 12-07-2022 12-07-2022 Episodic Other aftercare (16 sources) Post-discharge follow-up; Translations: [Encounter for follow-up [...] 04-06-2021 Resolved: 06-29-2021 Episodic Residual codes; unclassified (14 sources) Edema, generalized; Translations: [Generalized edema] Onset: 10-22-2024 10-22-2024 Episodic Spondylosis; intervertebral disc disorders; other back problems (1 source) Cervicalgia; Translations: [Cervicalgia] Onset: 09-03-2024 Episodic Unclassified (1 source) Lumbar pain M54.50 Onset: 06-29-2021 Resolved: 06-29-2021 Results Test Name Value Interpretation Reference Range Facility X-ray reportOrdered By: Catracho Arroyo on 03-18-2025 Study report [facility] [address] [place] [address] XRay Report Signed Patient: Nata Pete MR#: [id number] : 1945 Acct:[id number] Age/Sex: 79 / F ADM Date: 5 Loc: [facility] [place]: Type: [facility] Attending Dr: João Soto DO Copies to: João Soto DO~ Ordering Provider: João Soto DO Date of Service: 03/18/25 XR/XR knee RT 3V - NOT FOR ER USE: M17.11 - Unilateral primary osteoarthritis, right knee RIGHT KNEE - 3 views CLINICAL HISTORY: Follow-up right TKA COMPARISON: Right TKA 09/09/2024 FINDINGS: No hardware complication is seen. Patella ernesto is seen new since the prior study. No acute bony process. XR/XR knee RT 3V - NOT FOR ER USE IMPRESSION: NO HARDWARE COMPLICATION IS SEEN. PATELLA ERNESTO NEW SINCE THE PRIOR STUDY. Impression dictated by: Dedrick Arroyo Jr., D.O. 03/18/2025 4:49 PM Dictation Location: RADIO-PC-22 Transcribed By: HIMA 03/18/251648 Dictated By: Dedrick Arroyo Jr, DO 03/18/251647 Signed By: 03/18/251648 [facility] XR knee RT 3V - NOT FOR ER U Jamar 03-18-2025 XR knee RT 3V - NOT FOR ER USE [facility] [address] [place] [address] XRay Report Signed Patient: Nata Pete MR#: [id number] : 1945 Acct:[id number] Age/Sex: 79 / F ADM Date: 03/18/25 Loc: [facility] [place] Room: Type: [facility] Attending Dr: João Soto DO Copies to: João Soto DO Ordering Provider: João Soto DO Date of Service: 03/18/25 XR/XR knee RT 3V - NOT FOR ER USE: M17.11 - Unilateral primary osteoarthritis, right knee RIGHT KNEE - 3 views CLINICAL HISTORY: Follow-up right TKA COMPARISON: Right TKA 09/09/2024 FINDINGS: No hardware complication is seen. Patella ernesto is seen new since the prior study. No acute bony process. XR/XR knee RT 3V - NOT FOR ER USE IMPRESSION: NO HARDWARE COMPLICATION IS SEEN. PATELLA ERNESTO NEW SINCE THE PRIOR STUDY. Impression dictated by: Dedrick Arroyo Jr., D.O. 03/18/2025 4:49 PM Dictation Location: RADIO-PC-22 Transcribed By: HIMA 03/18/251648 Dictated By: Dedrick Arroyo Jr, DO 03/18/251647 Signed By: 03/18/251648 Normal [facility] Urine Cultureon 03-04-2025 Bacteria identified Cx Nom (U) ORGANISM: Escherichia coli (O:ESCCOL) [place] Count >100,000 Aerobic MI Charge ([id number]) SUSCEPTIBILITY ORGANISM: O:ESCCOL ANTIBIOTIC INTERPRETATION MI Amikacin S <16 Amoxacillin/K Clavulanate S <8 Ampicillin R >16 Ampicillin/Sulbactam S <4 Aztreonam S <4 Cefazolin S <2 Cefepime S <2 Ceftazidime S <1 Ceftazidime/Avibactam S <4 Ceftolozane/Tazobactam S <2 Ceftriaxone S <1 Cefuroxime S <4 Ciprofloxacin S <0.25 Ertapenem S <0.5 Gentamicin S <2 Levofloxacin S <0.5 Meropenem S <1 Meropenem/Vaborbactam S <2 Nitrofurantoin S <32 Piperacillin/Tazobactam S <8 Tetracycline S <4 Tigecycline S <2 Tobramycin S <2 Trimethoprim/Sulfamethoxa zole S <0.5 S = SUSCEPTIBLE I = INTERMEDIATE R = RESISTANT BLANK = DATA NOT AVAILABLE, OR DRUG NOT ADVISABLE OR TESTED R* = RESISTANCE DUE TO EXTENDED SPECTRUM BETA-LACTAMASES ESBL = EXTENDED SPECTRUM BETA-LACTAMASE TFG = THYMIDINE-DEPENDENT STRAIN BRY = BETA-LACTAMASE POSITIVE IB = INDUCIBLE BETA-LACTAMASE. APPEARS IN PLACE OF 'S' WITH SPECIES KNOWN TO POSSESS INDUCIBLE BETA-LACTAMASES. POTENTIALLY THEY MAY BECOME RESISTANT TO ALL B-LACTAM DRUGS. PERFORMED BY: [address] [place] [address] PATHOLOGIST CLINICAL CONSULTANT JACQUELINE ENRIQUEZ M.D. Normal [facility] Comment on above: Performed By: #### G LULS #### Point of Care testing , Urine cultureOrdered By: Alexis Benito on 03-04-2025 Bacteria identified Cx Nom (U) Escherichia coli Abnormal [facility] CBC W Auto Differential pane l (Bld)on 01-14-2025 Basophils (Bld) [#/Vol] 0 10*3/uL [facility] Basophils/100 WBC (Bld) 1 % Not Estab. [facility] Eosinophils (Bld) [#/Vol] 0.2 10*3/uL [facility] Eosinophils/100 WBC (Bld) 4 % Not Estab. [facility] Erythrocyte distribution width (RBC) [Ratio] 12.4 % 11.7 - 15.4 % [facility] Hematocrit (Bld) [Volume fraction] 36.3 % 34.0 - 46.6 % [facility] Hemoglobin (Bld) [Mass/Vol] 11.4 g/dL 11.1 - 15.9 g/dL [facility] Immature granulocytes (Bld) [#/Vol] 0 10*3/uL [facility] Immature granulocytes/100 WBC (Bld) 0 % Not Estab. [facility] Lymphocytes (Bld) [#/Vol] 0.7 10*3/uL [facility] Lymphocytes/100 WBC (Bld) 17 % Not Estab. [facility] MCH (RBC) [Entitic mass] 27.9 pg 26.6 - 33.0 pg [facility] MCHC (RBC) [Mass/Vol] 31.4 g/dL Low 31.5 - 35.7 g/dL [facility] MCV (RBC) [Entitic vol] 89 fL 79 - 97 fL [facility] Monocytes (Bld) [#/Vol] 0.5 10*3/uL [facility] Monocytes/100 WBC (Bld) 13 % Not Estab. [facility] Neutrophils (Bld) [#/Vol] 2.6 10*3/uL [facility] Neutrophils/100 WBC (Bld) 65 % Not Estab. [facility] Platelets (Bld) [#/Vol] 213 10*3/uL [facility] RBC (Bld) [#/Vol] 4.08 10*6/uL [facility] WBC (Bld) [#/Vol] 4.1 10*3/uL [facility] Laboratory - Chemistry and C hemistry - challengeon 01-14-2025 Albumin [Mass/Vol] 4.1 g/dL 3.8 - 4.8 g/dL [facility] ALP [Catalytic activity/Vol] 69 U/L [facility] ALT [Catalytic activity/Vol] 14 U/L [facility] AST [Catalytic activity/Vol] 19 U/L [facility] Bilirubin [Mass/Vol] 0.3 mg/dL 0.0 - 1 .2 mg/dL [facility] Calcium [Mass/Vol] 9.6 mg/dL 8.7 - 10. 3 mg/dL [facility] Chloride [Moles/Vol] 98 mmol/L 96 - 10 6 mmol/L [facility] CO2 [Moles/Vol] 23 mmol/L 20 - 29 mmol/L [facility] Creatinine [Mass/Vol] 0.52 mg/dL Low 0.57 - 1.00 mg/dL [facility] GFR/1.73 sq M.predicted among non-blacks MDRD (S/P/Bld) [Vol rate/Area] 96 mL/min/{1.73_m2} 59 - PINF mL/min/1.7 3 [facility] Globulin (S) [Mass/Vol] 1.5 g/dL 1.5 - 4.5 g/dL [facility] Glucose [Mass/Vol] 106 mg/dL High 70 - 99 mg/dL [facility] Potassium [Moles/Vol] 4.5 mmol/L 3.5 - 5.2 mmol/L [facility] Protein [Mass/Vol] 5.6 g/dL Low 6.0 - 8.5 g/dL [facility] Sodium [Moles/Vol] 135 mmol/L 134 - 144 mmol/L [facility] Urea nitrogen [Mass/Vol] 25 mg/dL 8 - 27 mg/dL [facility] Urea nitrogen/Creatinine [Mass ratio] 48 mg/mg High 12 - 28 [facility] No Panel Informationon 01-14 Interpretation and review of laboratory results Abnormal [facility] Performed at: - [address] [id number] Pastry Finisher: Raffi Diallo PhD, Phone: [phone] [facility] - Hematology and Cell countson 01-13-2025 HbA1c (Bld) [Mass fraction] 5.3 % [facility] No Panel Informationon 01-13 [facility] Laboratory - Chemistry and C hemistry - challengeon 12-21-2024 Bilirubin Ql (U) Negative [facility] Glucose (U) [Mass/Vol] Negative [facility] Ketones Ql (U) Negative [facility] pH (U) 7.5 [pH] [facility] Specific gravity (U) [Rel density] 1.020 [facility] Urobilinogen (U) [Mass/Vol] 1.0 mg/dL [facility] Laboratory - Specimen inform ationon 12-21-2024 Appearance (U) cloudy [facility] Color (U) yellow [facility] Laboratory - Urinalysison Leukocyte esterase Test strip Ql (U) small [facility] Nitrite Ql (U) Negative [facility] Protein Ql (U) 30 [facility] No Panel Informationon 12-21 Urine Occult Blood trace-intact [facility] Urine Cultureon 12-21-2024 Bacteria identified Cx Nom (U) <10,000 colonies/ml mixed bacterial skin contaminants including mixed gram negative bacilli - 2 Days PERFORMED BY: [facility] [address] [place] [address] PATHOLOGIST CLINICAL CONSULTANT JACQUELINE [place] [facility] Comment on above: Performed By: #### C UU #### [facility] [address] Urine cultureOrdered By: Anh Roberts on 12-21-2024 Bacteria identified Cx Nom (U) bacilli - 2 Days [facility] ALL CBC WITH AUTO DIFFon Erythrocyte distribution width (RBC) [Ratio] 13.6 % 11.0 - 15.0 % [facility] Hematocrit (Bld) [Volume fraction] 33.1 % Low 36.0 - 48.0 % [facility] Hemoglobin (Bld) [Mass/Vol] 10.6 g/dL Low 12.0 - 16.0 g/dL [facility] Interpretation and review of laboratory results Abnormal [facility] MCH (RBC) [Entitic mass] 29.4 pg 26.7 - 34.0 pg [facility] MCHC (RBC) [Mass/Vol] 32 g/dL 29.9 - 35.2 g/dL [facility] MCV (RBC) [Entitic vol] 91.9 fL 81.0 - 99.0 fL [facility] Platelet mean volume (Bld) [Entitic vol] 10.5 fL 9.5 - 13.5 fL [facility] TBH PLT 228 [facility] TBH RBC 3.6 Low [facility] TB WBC 3.8 Low [facility] Panelon 08-17 Anion gap [Moles/Vol] 7.1 mmol/L Normal 6.0-15.0 [facility] Comment on above: Performed By: #### B MP, CBC #### [facility] [address] Calcium [Mass/Vol] 8.3 mg/dL Low 8.6-10.3 [facility] Comment on above: Performed By: #### B MP, CBC #### [facility] [address] Chloride [Moles/Vol] 102 mmol/L Normal 98-107 [facility] Comment on above: Performed By: #### B MP, CBC #### [address] CO2 [Moles/Vol] 27.0 mmol/L Normal 21.0-31.0 [facility] Comment on above: Performed By: #### B MP, CBC #### [place] [address] [place] Creatinine [Mass/Vol] 0.48 mg/dL Low 0.60-1.20 [facility] Comment on above: Performed By: #### B MP, CBC #### [place] [address] [place] Creatinine Clr Calc Pharmacy 48.10 Normal [facility] Comment on above: Result Comment: PERF ORMED BY: [place] [address] PATHOLOGIST CLINICAL CONSULTANT MELANIE ALMAZAN M.D. Performed By: #### B MP, CBC #### [place] [address] [place] GFR/1.73 sq M.predicted MDRD (S/P/Bld) [Vol rate/Area] mL/min/{1.73_m2} Normal [facility] Comment on above: Performed By: #### B MP, CBC #### [place] [address] [place] Glucose [Mass/Vol] 91 mg/dL Normal 70-100 [facility] Comment on above: Result Comment: [place] Glucose Reference Range is dependent on time and content of last meal. Glucose of more than 200 mg/dL in a nonstressed, ambulatory subject supports the diagnosis of Diabetes Mellitus. ADA recommended reference range Performed By: #### B MP, CBC #### [facility] [address] Potassium [Moles/Vol] 4.1 mmol/L Normal 3.5-5.1 [facility] Comment on above: Performed By: #### B MP, CBC #### [facility] [address] [place] [address] [place] Sodium [Moles/Vol] 132 mmol/L Low 136-145 [facility] Comment on above: Performed By: #### B MP, CBC #### [facility] [address] Urea nitrogen [Mass/Vol] 19 mg/dL Normal 7-25 [facility] Comment on above: Performed By: #### B MP, CBC #### [facility] [address] [place] [address] [place] Basophils Auto (Bld) [#/Vol] Ordered By: João Soto on 09-11-2024 Basophils (Bld) [#/Vol] Automated basophil count 0.0-0.2 [facility] Basophils/100 WBC Auto (Bld) Ordered By: João Soto on 09-11-2024 Basophils/100 WBC (Bld) Automated basophil % . [facility] Calcium [Mass/volume] in Ser um or PlasmaOrdered By: João Soto on 09-11-2024 Calcium [Mass/Vol] Calcium [Mass/volume ] in Serum or Plasma Low 8.6-10.3 [facility] Carbon dioxide, total [Moles /volume] in Serum or PlasmaOrdered By: João Soto on 09-11-2024 CO2 [Moles/Vol] Carbon dioxide, tota l [Moles/volume] in Serum or Plasma 21.0-31.0 [facility] Chloride [Moles/volume] in S ozzie or PlasmaOrdered By: João Soto on 09-11-2024 Chloride [Moles/Vol] Chloride [Moles/vol ume] in Serum or Plasma 98-107 [facility] Complete Blood Count Auto Di ffon 09-11-2024 Basophils (Bld) [#/Vol] 0.0 10*3/uL Normal 0.0-0.2 [facility] Comment on above: Result Comment: PERF ORMED BY: [place] [address] PATHOLOGIST CLINICAL CONSULTANT MELANIE ALMAZAN M.D. Performed By: #### B MP, CBC #### [address] Basophils/100 WBC (Bld) 0.6 % Normal . [facility] Comment on above: Performed By: #### B MP, CBC #### [address] Eosinophils (Bld) [#/Vol] 0.3 10*3/uL Normal 0.0-0.45 [facility] Comment on above: Performed By: #### B MP, CBC #### [address] Eosinophils/100 WBC (Bld) 4.6 % Normal . [facility] Comment on above: Performed By: #### B MP, CBC #### [address] Erythrocyte distribution width (RBC) [Ratio] 13.8 % Normal 11.9-15.3 [facility] Comment on above: Performed By: #### B MP, CBC #### [address] Hematocrit (Bld) [Volume fraction] 29.7 % Low 34.0-46.4 [facility] Comment on above: Performed By: #### B MP, CBC #### [address] Hemoglobin (Bld) [Mass/Vol] 10.2 g/dL Low 11.8-15.4 [facility] Comment on above: Performed By: #### B MP, CBC #### [place] [address] [place] Lymphocytes (Bld) [#/Vol] 0.9 10*3/uL Low 1.00-4.8 [facility] Comment on above: Performed By: #### B MP, CBC #### [address] Lymphocytes/100 WBC (Bld) 16.6 % Normal . [facility] Comment on above: Performed By: #### B MP, CBC #### [address] MCH (RBC) [Entitic mass] 29.6 pg Normal 24.7-34.3 [facility] Comment on above: Performed By: #### B MP, CBC #### [address] MCV (RBC) [Entitic vol] 86.4 fL Normal 80-100 [facility] Comment on above: Performed By: #### B MP, CBC #### [address] Mean Corpuscular HGB Conc 34.3 g/dL Normal 32.0-35.0 [facility] Comment on above: Performed By: #### B MP, CBC #### [address] Monocytes (Bld) [#/Vol] 0.6 10*3/uL Normal 0.0-0.8 [facility] Comment on above: Performed By: #### B MP, CBC #### [place] [address] [place] Monocytes/100 WBC (Bld) 11.4 % Normal . [facility] Comment on above: Performed By: #### B MP, CBC #### [address] Neutrophils (Bld) [#/Vol] 3.7 10*3/uL Normal 1.8-7.7 [facility] Comment on above: Performed By: #### B MP, CBC #### [facility] [address] Neutrophils/100 WBC (Bld) 66.8 % Normal . [facility] Comment on above: Performed By: #### B MP, CBC #### [facility] [address] NRBC% 0.0 /100{WBC} Normal 0-0.5 [facility] Comment on above: Performed By: #### B MP, CBC #### [facility] [address] Platelet mean volume (Bld) [Entitic vol] 8.9 fL Normal 6.3-10.7 [facility] Comment on above: Performed By: #### B MP, CBC #### [facility] [address] [place] [address] [place] Platelets (Bld) [#/Vol] 179 10*3/uL Normal 150-450 [facility] Comment on above: Performed By: #### B MP, CBC #### [facility] [address] [place] [address] [place] RBC (Bld) [#/Vol] 3.44 10*6/uL Low 3.60-5.00 [facility] Comment on above: Performed By: #### B MP, CBC #### [place] [id number] [place] WBC (Bld) [#/Vol] 5.5 10*3/uL Normal 3.8-11.6 [facility] Comment on above: Performed By: #### B MP, CBC #### [place] [id number] [place] Creatinine [Mass/volume] in Serum or PlasmaOrdered By: João Soto on 09-11-2024 Creatinine [Mass/Vol] Creatinine [Mass/v olume] in Serum or Plasma Low 0.60-1.20 [facility] Eosinophils Auto (Bld) [#/Vo l]Ordered By: João Soto on 09-11-2024 Eosinophils (Bld) [#/Vol] Automated eosinophil count 0.0-0.45 [facility] Eosinophils/100 WBC Auto (Bl d)Ordered By: João Soto on 09-11-2024 Eosinophils/100 WBC (Bld) Automated eosinophil % . [facility] Erythrocyte distribution wid th Auto (RBC) [Ratio]Ordered By: João Soto on 09-11-2024 Erythrocyte distribution width (RBC) [Ratio] Erythrocyte distribution width [Ratio] by Automated count 11.9-15.3 [facility] Glucose Glucometer (BldC) [M ass/Vol]Ordered By: João Soto on 09-11-2024 Glucose [Mass/Vol] Capillary blood gluc ose measurement by glucometer (mass/volume) [facility] Comment on above: Random Glucose Refer ence Range is dependent on time and content of last meal. Glucose of more than 200 mg/dL in a nonstressed, ambulatory subject supports the diagnosis of Diabetes Mellitus. Glucose Poct Glucometerson 0 09-11-2024 Glucose [Mass/Vol] 112 mg/dL Normal [facility] Comment on above: Result Comment: [place] Glucose Reference Range is dependent on time and content of last meal. Glucose of more than 200 mg/dL in a nonstressed, ambulatory subject supports the diagnosis of Diabetes Mellitus. PERFORMED BY: [address] [place] [address] PATHOLOGIST CLINICAL CONSULTANT MELANIE ALMAZAN M.D. Performed By: #### G LULS #### Point of Care testing , Glucose [Mass/Vol] 106 mg/dL Normal [facility] Comment on above: Result Comment: [facility] Glucose Reference Range is dependent on time and content of last meal. Glucose of more than 200 mg/dL in a nonstressed, ambulatory subject supports the diagnosis of Diabetes Mellitus. PERFORMED BY: [facility] [address] [address] PATHOLOGIST CLINICAL CONSULTANT MELANIE ALMAZAN M.D. Performed By: #### G LULS #### Point of Care testing , Glucose [Mass/volume] in Ser um or PlasmaOrdered By: João Soto on 09-11-2024 Glucose [Mass/Vol] Glucose [Mass/volume ] in Serum or Plasma 70-100 [facility] Comment on above: ADA recommended refe rence rangeRandom Glucose Reference Range is dependent on time and content of last meal. Glucose of more than 200 mg/dL in a nonstressed, ambulatory subject supports the diagnosis of Diabetes Mellitus. Hematocrit Auto (Bld) [Volum e fraction]Ordered By: João Soto on 09-11-2024 Hematocrit (Bld) [Volume fraction] Hematocrit [Volume Fraction] of Blood by Automated count Low 34.0-46.4 [facility] Hemoglobin [Mass/volume] in BloodOrdered By: João Soto on 09-11-2024 Hemoglobin (Bld) [Mass/Vol] Hemoglobin [Mass/volume] in Blood Low 11.8-15.4 [facility] Leukocytes [#/volume] correc venkata for nucleated erythrocytes in Blood by Automated counOrdered By: João Soto on 09-11-2024 WBC corrected for nucl RBC Auto (Bld) [#/Vol] Leukocytes [#/volume] corrected for nucleated erythrocytes in Blood by Automated coun 3.8-11.6 [facility] Lymphocytes Auto (Bld) [#/Vo l]Ordered By: João Soto on 09-11-2024 Lymphocytes (Bld) [#/Vol] Lymphocytes [#/volume] in Blood by Automated count Low 1.00-4.8 [facility] Lymphocytes/100 WBC Auto (Bl d)Ordered By: João Soto on 09-11-2024 Lymphocytes/100 WBC (Bld) Lymphocytes/100 leukocytes in Blood by Automated count . [facility] MCH Auto (RBC) [Entitic mass ]Ordered By: João Soto on 09-11-2024 MCH (RBC) [Entitic mass] MCH [Entitic mass] by Automated count 24.7-34.3 [facility] MCHC Auto (RBC) [Mass/Vol]Or dered By: João Soto on 09-11-2024 MCHC (RBC) [Mass/Vol] MCHC [Mass/volume] by Automated count 32.0-35.0 [facility] MCV Auto (RBC) [Entitic vol] Ordered By: João Soto on 02-27-2025 MCV (RBC) [Entitic vol] MCV [Entitic volume] by Automated count 80-100 [facility] Monocytes Auto (Bld) [#/Vol] Ordered By: João Soto on 09-11-2024 Monocytes (Bld) [#/Vol] Automated blood monocyte count 0.0-0.8 [facility] Monocytes/100 WBC Auto (Bld) Ordered By: João Soto on 09-11-2024 Monocytes/100 WBC (Bld) Automated monocyte % . [facility] Neutrophils Auto (Bld) [#/Vo l]Ordered By: João Soto on 09-11-2024 Neutrophils (Bld) [#/Vol] Neutrophils [#/volume] in Blood by Automated count 1.8-7.7 [facility] Neutrophils/100 WBC Auto (Bl d)Ordered By: João Soto on 09-11-2024 Neutrophils/100 WBC (Bld) Automated neutrophil % . [facility] No Panel InformationOrdered By: João Soto on 09-11-2024 Estimated GFR (CKD-EPI) > 60.0 mL/Min [facility] Pharmacy Creatinine Clearance (Chem 48.10 [facility] Nucleated erythrocytes [Pres ence] in Blood by Automated countOrdered By: João Soto on 09-11-2024 Nucleated RBC Auto Ql (Bld) Nucleated erythrocytes [Presence] in Blood by Automated count 0-0.5 [facility] Pathology study report docum entOrdered By: Imer Connor on 09-11-2024 Pathology study [facility] Other Platelet mean volume Auto (B ld) [Entitic vol]Ordered By: João Soto on 09-11-2024 Platelet mean volume (Bld) [Entitic vol] Platelet mean volume [Entitic volume] in Blood by Automated count 6.3-10.7 [facility] Platelets Auto (Bld) [#/Vol] Ordered By: João Soto on 09-11-2024 Platelets (Bld) [#/Vol] Platelets [#/volume] in Blood by Automated count 150-450 [facility] Potassium [Moles/volume] in Serum or PlasmaOrdered By: João Soto on 09-11-2024 Potassium [Moles/Vol] Potassium [Moles/v olume] in Serum or Plasma 3.5-5.1 [facility] RBC Auto (Bld) [#/Vol]Ordere d By: João Soto on 09-11-2024 RBC (Bld) [#/Vol] Erythrocytes [#/volu me] in Blood by Automated count Low 3.60-5.00 [facility] Serum or plasma anion gap de terminationOrdered By: João Soto on 09-11-2024 Anion gap [Moles/Vol] Serum or plasma an ion gap determination 6.0-15.0 [facility] Sodium [Moles/volume] in Ser um or PlasmaOrdered By: João Soto on 09-11-2024 Sodium [Moles/Vol] Sodium [Moles/volume ] in Serum or Plasma Low 136-145 [facility] Urea nitrogen [Mass/volume] in Serum or PlasmaOrdered By: João Soto on 09-11-2024 Urea nitrogen [Mass/Vol] Urea nitrogen [Mass/volume] in Serum or Plasma 7-25 [facility] WBC Auto (Bld) [#/Vol]Ordere d By: João Soto on 09-11-2024 WBC (Bld) [#/Vol] Leukocytes [#/volume ] in Blood by Automated count 3.8-11.6 [facility] Basic Metabolic Panelon 08-17 Anion gap [Moles/Vol] 7.8 mmol/L Normal 6.0-15.0 [facility] Comment on above: Performed By: #### G LULS #### Point of Care testing , Calcium [Mass/Vol] 8.7 mg/dL Normal 8.6-10.3 [facility] Comment on above: Performed By: #### G LULS #### Point of Care testing , Chloride [Moles/Vol] 101 mmol/L Normal 98-107 [facility] Comment on above: Performed By: #### G LULS #### Point of Care testing , CO2 [Moles/Vol] 30.6 mmol/L Normal 21.0-31.0 [facility] Comment on above: Performed By: #### G LULS #### Point of Care testing , Creatinine [Mass/Vol] 0.55 mg/dL Low 0.60-1.20 [facility] Comment on above: Performed By: #### G LULS #### Point of Care testing , Creatinine Clr Calc Pharmacy 47.92 Normal [facility] Comment on above: Result Comment: PERF ORMED BY: [facility] [address] [place] [address] PATHOLOGIST CLINICAL CONSULTANT MELANIE ALMAZAN M.D. Performed By: #### G LULS #### Point of Care testing , GFR/1.73 sq M.predicted MDRD (S/P/Bld) [Vol rate/Area] mL/min/{1.73_m2} Normal [facility] Comment on above: Performed By: #### G LULS #### Point of Care testing , Glucose [Mass/Vol] 102 mg/dL High 70-100 [facility] Comment on above: Result Comment: [place] Glucose Reference Range is dependent on time and content of last meal. Glucose of more than 200 mg/dL in a nonstressed, ambulatory subject supports the diagnosis of Diabetes Mellitus. ADA recommended reference range Performed By: #### G LULS #### Point of Care testing , Potassium [Moles/Vol] 4.4 mmol/L Normal 3.5-5.1 [facility] Comment on above: Performed By: #### G LULS #### Point of Care testing , Sodium [Moles/Vol] 135 mmol/L Low 136-145 [facility] Comment on above: Performed By: #### G LULS #### Point of Care testing , Urea nitrogen [Mass/Vol] 17 mg/dL Normal 7-25 [facility] Comment on above: Performed By: #### G LULS #### Point of Care testing , Complete Blood Count Auto Di ffon 09-10-2024 Basophils (Bld) [#/Vol] 0.0 10*3/uL Normal 0.0-0.2 [facility] Comment on above: Result Comment: PERF ORMED BY: [facility] [place] [address] PATHOLOGIST CLINICAL CONSULTANT MELANIE ALMAZAN M.D. Performed By: #### G LULS #### Point of Care testing , Basophils/100 WBC (Bld) 0.1 % Normal . [facility] Comment on above: Performed By: #### G LULS #### Point of Care testing , Eosinophils (Bld) [#/Vol] 0.1 10*3/uL Normal 0.0-0.45 [facility] Comment on above: Performed By: #### G LULS #### Point of Care testing , Eosinophils/100 WBC (Bld) 1.8 % Normal . [facility] Comment on above: Performed By: #### G LULS #### Point of Care testing , Erythrocyte distribution width (RBC) [Ratio] 13.2 % Normal 11.9-15.3 [facility] Comment on above: Performed By: #### G LULS #### Point of Care testing , Hematocrit (Bld) [Volume fraction] 31.3 % Low 34.0-46.4 [facility] Comment on above: Performed By: #### G LULS #### Point of Care testing , Hemoglobin (Bld) [Mass/Vol] 10.7 g/dL Low 11.8-15.4 [facility] Comment on above: Performed By: #### G LULS #### Point of Care testing , Lymphocytes (Bld) [#/Vol] 0.7 10*3/uL Low 1.00-4.8 [facility] Comment on above: Performed By: #### G LULS #### Point of Care testing , Lymphocytes/100 WBC (Bld) 11.8 % Normal . [facility] Comment on above: Performed By: #### G LULS #### Point of Care testing , MCH (RBC) [Entitic mass] 29.7 pg Normal 24.7-34.3 [facility] Comment on above: Performed By: #### G LULS #### Point of Care testing , MCV (RBC) [Entitic vol] 87.2 fL Normal 80-100 [facility] Comment on above: Performed By: #### G LULS #### Point of Care testing , Mean Corpuscular HGB Conc 34.1 g/dL Normal 32.0-35.0 [facility] Comment on above: Performed By: #### G LULS #### Point of Care testing , Monocytes (Bld) [#/Vol] 0.8 10*3/uL Normal 0.0-0.8 [facility] Comment on above: Performed By: #### G LULS #### Point of Care testing , Monocytes/100 WBC (Bld) 12.5 % Normal . [facility] Comment on above: Performed By: #### G LULS #### Point of Care testing , Neutrophils (Bld) [#/Vol] 4.6 10*3/uL Normal 1.8-7.7 [facility] Comment on above: Performed By: #### G LULS #### Point of Care testing , Neutrophils/100 WBC (Bld) 73.8 % Normal . [facility] Comment on above: Performed By: #### G LULS #### Point of Care testing , NRBC% 0.1 /100{WBC} Normal 0-0.5 [facility] Comment on above: Performed By: #### G LULS #### Point of Care testing , Platelet mean volume (Bld) [Entitic vol] 8.7 fL Normal 6.3-10.7 [facility] Comment on above: Performed By: #### G LULS #### Point of Care testing , Platelets (Bld) [#/Vol] 201 10*3/uL Normal 150-450 [facility] Comment on above: Performed By: #### G LULS #### Point of Care testing , RBC (Bld) [#/Vol] 3.59 10*6/uL Low 3.60-5.00 [facility] Comment on above: Performed By: #### G LULS #### Point of Care testing , WBC (Bld) [#/Vol] 6.2 10*3/uL Normal 3.8-11.6 [facility] Comment on above: Performed By: #### G LULS #### Point of Care testing , Glucose Poct Glucometerson 0 09-10-2024 Glucose [Mass/Vol] 118 mg/dL Normal [facility] Comment on above: Result Comment: Wilbur om Glucose Reference Range is dependent on time and content of last meal. Glucose of more than 200 mg/dL in a nonstressed, ambulatory subject supports the diagnosis of Diabetes Mellitus. PERFORMED BY: [address] [address] PATHOLOGIST CLINICAL CONSULTANT MELANIE ALMAZAN M.D. Performed By: #### G LULS #### Point of Care testing , Glucose [Mass/Vol] 143 mg/dL Normal [facility] Comment on above: Result Comment: Wilbur Glucose Reference Range is dependent on time and content of last meal. Glucose of more than 200 mg/dL in a nonstressed, ambulatory subject supports the diagnosis of Diabetes Mellitus. PERFORMED BY: [facility] [address] [facility] [place] [place] [address] PATHOLOGIST CLINICAL CONSULTANT MELANIE ALMAZAN M.D. Performed By: #### G LULS #### Point of Care testing , Glucose [Mass/Vol] 113 mg/dL Normal [facility] Comment on above: Result Comment: Wilbur om Glucose Reference Range is dependent on time and content of last meal. Glucose of more than 200 mg/dL in a nonstressed, ambulatory subject supports the diagnosis of Diabetes Mellitus. PERFORMED BY: [facility] [address] [facility] [place] [address] PATHOLOGIST CLINICAL CONSULTANT MELANIE ALMAZAN M.D. Performed By: #### G LULS #### Point of Care testing , Glucose [Mass/Vol] 109 mg/dL Normal [facility] Comment on above: Result Comment: Wil[place] om Glucose Reference Range is dependent on time and content of last meal. Glucose of more than 200 mg/dL in a nonstressed, ambulatory subject supports the diagnosis of Diabetes Mellitus. PERFORMED BY: [address] [place] [address] PATHOLOGIST CLINICAL CONSULTANT MELANIE ALMAZAN M.D. Performed By: #### G LULS #### Point of Care testing , Glucose Poct Glucometerson 0 09-09-2024 Glucose [Mass/Vol] 183 mg/dL Normal [facility] Comment on above: Result Comment: [place] om Glucose Reference Range is dependent on time and content of last meal. Glucose of more than 200 mg/dL in a nonstressed, ambulatory subject supports the diagnosis of Diabetes Mellitus. PERFORMED BY: [facility] [address] [place] [address] PATHOLOGIST CLINICAL CONSULTANT MELANIE ALMAZAN M.D. Performed By: #### G LULS #### Point of Care testing , Glucose [Mass/Vol] 129 mg/dL Normal [facility] Comment on above: Result Comment: [place] om Glucose Reference Range is dependent on time and content of last meal. Glucose of more than 200 mg/dL in a nonstressed, ambulatory subject supports the diagnosis of Diabetes Mellitus. PERFORMED BY: [facility] [address] [address] PATHOLOGIST CLINICAL CONSULTANT MELANIE ALMAZAN M.D. Performed By: #### G LULS #### Point of Care testing , Glucose [Mass/Vol] 132 mg/dL Normal [facility] Comment on above: Result Comment: Wilbur om Glucose Reference Range is dependent on time and content of last meal. Glucose of more than 200 mg/dL in a nonstressed, ambulatory subject supports the diagnosis of Diabetes Mellitus. PERFORMED BY: [facility] [address] [place] [address] PATHOLOGIST CLINICAL CONSULTANT MELANIE ALMAZAN M.D. Performed By: #### G LULS #### Point of Care testing , Commemt1 Glu2: Cleaned Meter Normal [facility] Comment on above: Result Comment: PERF ORMED BY: [facility] [address] [place] [address] PATHOLOGIST CLINICAL CONSULTANT MELANIE ALMAZAN M.D. Performed By: #### G BENJAMIN #### Point of Care testing , Glucose [Mass/Vol] 98 mg/dL Normal [facility] Comment on above: Result Comment: [facility] Glucose Reference Range is dependent on time and content of last meal. Glucose of more than 200 mg/dL in a nonstressed, ambulatory subject supports the diagnosis of Diabetes Mellitus. Performed By: #### G BENJAMIN #### Point of Care testing , Dino 09-09-2024 L ----- Specimen: [id number] Received: 09/09/24 Status: BARBARA Polk Num: [id number] Spec Type: Surgical Subm Dr: João Soto DO Tissues: A Joint/Knee (RIGHT TOTAL KNEE) Procedures: Catalina HAYDEN/Princess L4, Decalcification Age/ Patient Sex Location Account Attending Physician Nata Pete 79/F 4N [id number] João Soto DO SPEC NUM: [id number] RECD: 09/09/24 STATUS: BARBARA POLK NUM: [id number] LORIN: 09/09/24- [facility] DR: João Soto DO ENTERED: 09/09/24 [facility] DR: VERONICA TYPE: Surgical DEPT: S ENTERED BY: [id number] RECV BY: [id number] ORDERED: HE, Gross/Micro L4, Decalcification ORDERED: HE, [...] yellow-bryant, glistening and uniform cut surfaces. A customer counter representative section of the bone is submitted in a single cassette after decalcification. (1, , [id number])MEJIA Specimen: [id number] Received: 09/09/24 Status: BARBARA Polk Num: [id number] Spec Type: Surgical Subm Dr: João Soto DO Tissues: A Joint/Knee (RIGHT TOTAL KNEE) Procedures: Catalina HAYDEN/Micro L4, Decalcification Patient: [place]garcíaNata Taylor [id number] (Continued) Specimen: [id number] Received: 09/09/24 (Continued) Signed (signature on file) Imer Connor MD 09/11/24 1509 Specimen: [id number] Received: 09/09/24 Status: BARBARA Polk Num: [id number] Spec Type: Surgical Subm Dr: João Soto DO Tissues: A Joint/Knee (RIGHT TOTAL KNEE) Procedures: Catalina HAYDEN/Micro L4, Decalcification Patient: Nata Pete [id number] (Continued) Specimen: [id number] Received: 09/09/24 (Continued) Microscopic Description Microscopic examinations are performed supporting the above interpretation CPT Codes [id number] Specimen: [id number] Received: 09/09/24 Status: BARBARA Polk Num: [id number] Spec Type: Surgical Subm Dr: João Soto DO Tissues: A Joint/Knee (RIGHT TOTAL KNEE) Procedures: JACKELYN, Gross/Micro L4, Decalcification Patient: Nata Pete [id number] (Continued) Signed (signature on file) Chin-Tk Connor MD 09/11/24 1509 Normal [facility] No Panel InformationOrdered By: João Soto on 09-09-2024 Bedside Glucose Comment Glu2: cleaned meter [facility] X-ray reportOrdered By: Catracho Arroyo on 09-09-2024 [place] [address] XRay Report Signed Patient: Nata Pete MR#: [id number] : 1945 Acct:[id number] Age/Sex: 79 / F ADM Date: 5 Loc: Room: 3W8455-7 Type: REG [facility] [place] Attending Dr: João Soto DO Copies to: [...] Arroyo Jr., D.O.09/09/2024 4:01 PM Dictation Location: RADIO-PC-22 Transcribed By: HIMA 09/09/24 1601 Dictated By: Dedrick Arroyo Jr, DO 09/09/24 1600 Signed By: 09/09/24 1601 [facility] XR knee RT 2Von 09-09-2024 XR knee RT 2V [facility] Main [address] [address] XRay Report Signed Patient: Nata Pete MR#: [id number] : 1945 Acct:[id number] Age/Sex: 79 / F ADM Date: 09/09/24 Loc: Room: [address] [place] [address] Type: REG [facility] Attending Dr: João Soto [...] Arroyo Jr., D.O.09/09/2024 4:01 PM Dictation Location: RADIO-PC-22 Transcribed By: HIMA 09/09/24 1601 Dictated By: Dedrick Arroyo Jr, DO 09/09/24 1600 Signed By: 09/09/24 1601 Normal [facility] X-ray reportOrdered By: Yuriy Moran on 09-03-2024 Study report [facility] [address] [place] [address] XRay Report Signed Patient: Nata Pete MR#: [id number] : 1945 Acct:[id number] Age/Sex: 79 / F ADM Date: 5 Loc: SOXD Room: Type: [facility] CLI Attending Dr: João Soto DO Copies to: João Soto DO~ Ordering Provider: João Soto DO Date of Service: 09/03/24 XR/XR femur BI: M17.11 - Unilateral primary osteoarthritis, right knee ([id number]) XR/XR tibia/fibula BI: M17.11 - Unilateral primary [...] Yuriy Moran M.D.09/03/2024 11:39 PM Dictation Location: [place] [address] Transcribed By: [facility] 09/03/242338 Dictated By: Yuriy Moran II, MD 09/03/242337 Signed By: 09/03/242338 [facility] Work Phone: Study report [facility] [address] [place] [address] XRay Report Signed Patient: Nata Pete MR#: [id number] : 1945 Acct:[id number] Age/Sex: 79 / F ADM Date: 5 Loc: [facility] [place] Room: Type: [facility] Attending Dr: João Soto DO Copies [...] Yuriy Moran M.D.09/03/2024 9:29 PM Dictation Location: [place] [address] Transcribed By: [facility] 09/03/242128 Dictated By: Yuriy Moran II, MD 09/03/242126 Signed By: 09/03/242128 [facility] Work Phone: XR cerv spine AP/LAT/FLX/EXT on 09-03-2024 XR cerv spine AP/LAT/FLX/EXT [facility] [address] [place] [address] XRay Report Signed Patient: Nata Pete MR#: [id number] : 1945 Acct:[id number] Age/Sex: 79 / F ADM Date: 09/03/24 [place] [facility] [place]: Type: [facility] Attending Dr: João Soto DO Copies [...] Yuriy Moran M.D.09/03/2024 9:29 PM Dictation Location: [place] [address] Transcribed By: [facility] 09/03/242128 Dictated By: Yuriy Moran II, MD 09/03/242126 Signed By: 09/03/242128 Normal [facility] XR tibia/fibula BIon 025 XR tibia/fibula BI [facility] [address] [place] [address] XRay Report Signed Patient: Nata Pete MR#: [id number] : 1945 Acct:[id number] Age/Sex: 79 / F ADM Date: 09/03/24 Loc: [facility] [place] Room: Type: [facility] Attending Dr: João Soto DO Copies to: João Soto DO Ordering Provider: João Soto DO Date of Service: 09/03/24 XR/XR femur BI: M17.11 - Unilateral primary osteoarthritis, right knee ([id number]) XR/XR tibia/fibula BI: M17.11 - Unilateral primary [...] Yuriy Moran M.D.09/03/2024 11:39 PM Dictation Location: [place] [address] Transcribed By: [facility] 09/03/242338 Dictated By: Yuriy Moran II, MD 09/03/242337 Signed By: 09/03/242338 Normal [facility] Appearance of UrineOrdered B y: João Soto on 08-26-2024 Appearance (U) Urine appearance Clear [facility] Bacteria [Presence] in Urine by AutomatedOrdered By: João Soto on 08-26-2024 Bacteria Auto Ql (U) Bacteria [Presence] in Urine by Automated None Seen [facility] Bilirubin Test strip Ql (U)O rdered By: João Soto on 08-26-2024 Bilirubin Ql (U) Bilirubin.total [Presence] in Urine by Test strip Negative [facility] Color Auto (U)Ordered By: Dana Soto on 08-26-2024 Color (U) Color of Urine by Auto Yellow Fi [facility] Dipstick and Microscopicon 0 08-26-2024 Appearance (U) Clear Normal Clear [facility] Comment on above: Order Comment: Name Collection Type:: Clean-Voided Midstream Performed By: #### G LULS #### Point of Care testing , Bacteria,Urine None Seen Normal None Seen [facility] Comment on above: Order Comment: Name Collection Type:: Clean-Voided Midstream Performed By: #### G LULS #### Point of Care testing , Bilirubin,Urine Negative Normal Negative [facility] Comment on above: Order Comment: Name Collection Type:: Clean-Voided Midstream Performed By: #### G LULS #### Point of Care testing , Color (U) Light-Yellow Normal Yellow [facility] Comment on above: Order Comment: Name Collection Type:: Clean-Voided Midstream Performed By: #### G LULS #### Point of Care testing , Glucose Ql (U) Normal Normal Normal [facility] Comment on above: Order Comment: Name Collection Type:: Clean-Voided Midstream Performed By: #### G LULS #### Point of Care testing , Hyaline Casts,Urine None Normal 0-8 [facility] Comment on above: Order Comment: Name Collection Type:: Clean-Voided Midstream Result Comment: PERF ORMED BY: [facility] [address] [place] [address] PATHOLOGIST CLINICAL CONSULTANT MELANIE ALMAZAN M.D. Performed By: #### G LULS #### Point of Care testing , Ketones Ql (U) Negative Normal Negative [facility] Comment on above: Order Comment: Name Collection Type:: Clean-Voided Midstream Performed By: #### G LULS #### Point of Care testing , Leukocyte esterase Test strip Ql (U) Negative Normal Negative [facility] Comment on above: Order Comment: Name Collection Type:: Clean-Voided Midstream Performed By: #### G LULS #### Point of Care testing , Nitrite,Urine Negative Normal Negative [facility] Comment on above: Order Comment: Name Collection Type:: Clean-Voided Midstream Performed By: #### G LULS #### Point of Care testing , Occult Blood,Urine 1+ High Negative [facility] Comment on above: Order Comment: Name Collection Type:: Clean-Voided Midstream Result Comment: PERF ORMED BY: [facility] [address] [place] [address] PATHOLOGIST CLINICAL CONSULTANT MELANIE ALMAZAN M.D. Performed By: #### G LULS #### Point of Care testing , pH (U) 6.5 [pH] Normal 5.0-9.0 [facility] Comment on above: Order Comment: Name Collection Type:: Clean-Voided Midstream Performed By: #### G LULS #### Point of Care testing , Protein,Urine Negative Normal Negative [facility] Comment on above: Order Comment: Name Collection Type:: Clean-Voided Midstream Performed By: #### G LULS #### Point of Care testing , RBC,Urine 1-2 Normal 0-4 [facility] Comment on above: Order Comment: Name Collection Type:: Clean-Voided Midstream Performed By: #### G LULS #### Point of Care testing , Specificy [place],Urine 1.018 Normal 1.001-1.03 0 [facility] Comment on above: Order Comment: Name Collection Type:: Clean-Voided Midstream Performed By: #### G LULS #### Point of Care testing , Squamous Epithelial Cell,Urine 1-2 Normal 0-2 [facility] Comment on above: Order Comment: Name Collection Type:: Clean-Voided Midstream Performed By: #### G LULS #### Point of Care testing , Urobilinogen,Urine Normal Normal Normal [facility] Comment on above: Order Comment: Name Collection Type:: Clean-Voided Midstream Performed By: #### G LULS #### Point of Care testing , WBC,Urine 1-2 Normal 0-4 [facility] Comment on above: Order Comment: Name Collection Type:: Clean-Voided Midstream Performed By: #### G LULS #### Point of Care testing , Epithelial cells.squamous [# /area] in Urine sediment by Automated countOrdered By: João Soto on 08-26-2024 Epithelial cells.squamous Auto (Urine sed) [#/Area] Epithelial cells.squamous [#/area] in Urine sediment by Automated count 0-2 [facility] Erythrocytes [#/area] in Uri ne sediment by Automated countOrdered By: João Soto on 08-26-2024 RBC Auto (Urine sed) [#/Area] Erythrocytes [#/area] in Urine sediment by Automated count 0-4 [facility] Glucose [Mass/volume] in Uri ne by Test stripOrdered By: João Soto on 08-26-2024 Glucose Test strip (U) [Mass/Vol] Glucose [Mass/volume] in Urine by Test strip Normal [facility] Hemoglobin Test strip Ql (U) Ordered By: João Soto on 08-26-2024 Hemoglobin Ql (U) Hemoglobin [Presence ] in Urine by Test strip High Negative [facility] Hyaline casts [#/area] in Ur ine sediment by Automated countOrdered By: João Soto on 08-26-2024 Hyaline casts Auto (Urine sed) [#/Area] Hyaline casts [#/area] in Urine sediment by Automated count 0-8 [facility] Ketones Test strip Ql (U)Ord ered By: Jooã Soto on 08-26-2024 Ketones Ql (U) Ketones [Presence] i n Urine by Test strip Negative [facility] Leukocyte esterase [Presence ] in Urine by Test stripOrdered By: João Soto on 08-26-2024 Leukocyte esterase Test strip Ql (U) Leukocyte esterase [Presence] in Urine by Test strip Negative [facility] Leukocytes [#/area] in Urine sediment by Automated countOrdered By: João Soto on 08-26-2024 WBC Auto (Urine sed) [#/Area] Leukocytes [#/area] in Urine sediment by Automated count 0-4 [facility] Nitrite Test strip Ql (U)Ord ered By: João Soto on 08-26-2024 Nitrite Ql (U) Nitrite [Presence] i n Urine by Test strip Negative [facility] Protein Test strip (U) [Mass /Vol]Ordered By: João Soto on 08-26-2024 Protein (U) [Mass/Vol] Protein [Mass/vol ume] in Urine by Test strip Negative [facility] Specific gravity Test strip (U) [Rel density]Ordered By: João Soto on 08-26-2024 Specific gravity (U) [Rel density] Specific gravity of Urine by Test strip 1.001-1.03 0 [facility] Urobilinogen Test strip (U) [Mass/Vol]Ordered By: João Soto on 08-26-2024 Urobilinogen (U) [Mass/Vol] Urobilinogen [Mass/volume] in Urine by Test strip Normal [facility] pH Test strip (U)Ordered By: João Soto on 08-26-2024 pH (U) pH of Urine by Test strip 5.0-9.0 [facility] Alanine aminotransferase [En zymatic activity/volume] in Serum or PlasmaOrdered By: João Soto on 08-22-2024 ALT [Catalytic activity/Vol] Alanine aminotransferase [Enzymatic activity/volume] in Serum or Plasma 7-52 [facility] Albumin [Mass/volume] in Ser um or Plasma by Bromocresol green (BCG) dye binding methoOrdered By: João Soto on 08-22-2024 Albumin BCG dye [Mass/Vol] Albumin [Mass/volume] in Serum or Plasma by Bromocresol green (BCG) dye binding metho 3.5-5.7 [facility] Alkaline phosphatase [Enzyma tic activity/volume] in Serum or PlasmaOrdered By: João Soto on 08-22-2024 ALP [Catalytic activity/Vol] Alkaline phosphatase [Enzymatic activity/volume] in Serum or Plasma 34-104 [facility] Aspartate aminotransferase [ Enzymatic activity/volume] in Serum or PlasmaOrdered By: João Soto on 08-22-2024 AST [Catalytic activity/Vol] Aspartate aminotransferase [Enzymatic activity/volume] in Serum or Plasma 13-39 [facility] Basophils Auto (Bld) [#/Vol] Ordered By: João Soto on 08-22-2024 Basophils (Bld) [#/Vol] Automated basophil count 0.0-0.2 [facility] Basophils/100 WBC Auto (Bld) Ordered By: João Soto on 08-22-2024 Basophils/100 WBC (Bld) Automated basophil % . [facility] Bilirubin.total [Mass/volume ] in Serum or PlasmaOrdered By: João Stoo on 08-22-2024 Bilirubin [Mass/Vol] Bilirubin.total [Mass/volume] in Serum or Plasma 0.3-1.0 [facility] CMP with reflex to A1Con Albumin [Mass/Vol] 4.0 g/dL Normal 3.5-5.7 [facility] Comment on above: Performed By: #### G LULS #### Point of Care testing , Albumin/Globulin [Mass ratio] 2.7 {ratio} Normal [facility] Comment on above: Performed By: #### G LULS #### Point of Care testing , ALP [Catalytic activity/Vol] 47 U/L Normal 34-104 [facility] Comment on above: Result Comment: PERF ORMED BY: [facility] [place] [address] PATHOLOGIST CLINICAL CONSULTANT MELANIE ALMAZAN M.D. Performed By: #### G LULS #### Point of Care testing , ALT [Catalytic activity/Vol] 10 U/L Normal 7-52 [facility] Comment on above: Performed By: #### G LULS #### Point of Care testing , Anion gap [Moles/Vol] 5.7 mmol/L Low 6.0-15.0 [facility] Comment on above: Performed By: #### G LULS #### Point of Care testing , AST [Catalytic activity/Vol] 15 U/L Normal 13-39 [facility] Comment on above: Performed By: #### G LULS #### Point of Care testing , Bilirubin [Mass/Vol] 0.5 mg/dL Normal 0.3-1.0 [facility] Comment on above: Performed By: #### G LULS #### Point of Care testing , Calcium [Mass/Vol] 9.1 mg/dL Normal 8.6-10.3 [facility] Comment on above: Performed By: #### G LULS #### Point of Care testing , Chloride [Moles/Vol] 101 mmol/L Normal 98-107 [facility] Comment on above: Performed By: #### G LULS #### Point of Care testing , CO2 [Moles/Vol] 31.1 mmol/L High 21.0-31.0 [facility] Comment on above: Performed By: #### G LULS #### Point of Care testing , Creatinine [Mass/Vol] 0.47 mg/dL Low 0.60-1.20 [facility] Comment on above: Performed By: #### G LULS #### Point of Care testing , GFR/1.73 sq M.predicted MDRD (S/P/Bld) [Vol rate/Area] mL/min/{1.73_m2} Normal [facility] Comment on above: Performed By: #### G LULS #### Point of Care testing , Globulin (S) [Mass/Vol] 1.5 g/dL Normal [facility] Comment on above: Performed By: #### G LULS #### Point of Care testing , Glucose [Mass/Vol] 96 mg/dL Normal 70-100 [facility] Comment on above: Performed By: #### G LULS #### Point of Care testing , Potassium [Moles/Vol] 4.8 mmol/L Normal 3.5-5.1 [facility] Comment on above: Performed By: #### G LULS #### Point of Care testing , Protein [Mass/Vol] 5.5 g/dL Low 6.4-8.9 [facility] Comment on above: Performed By: #### G LULS #### Point of Care testing , Sodium [Moles/Vol] 133 mmol/L Low 136-145 [facility] Comment on above: Performed By: #### G LULS #### Point of Care testing , Urea nitrogen [Mass/Vol] 20 mg/dL Normal 7-25 [facility] Comment on above: Performed By: #### G LULS #### Point of Care testing , Calcium [Mass/volume] in Ser um or PlasmaOrdered By: João Soto on 08-22-2024 Calcium [Mass/Vol] Calcium [Mass/volume ] in Serum or Plasma 8.6-10.3 [facility] Carbon dioxide, total [Moles /volume] in Serum or PlasmaOrdered By: João Soto on 08-22-2024 CO2 [Moles/Vol] Carbon dioxide, tota l [Moles/volume] in Serum or Plasma High 21.0-31.0 [facility] Chloride [Moles/volume] in S ozzie or PlasmaOrdered By: João Soto on 08-22-2024 Chloride [Moles/Vol] Chloride [Moles/vol ume] in Serum or Plasma 98-107 [facility] Complete Blood Count Auto Di ffon 08-22-2024 Basophils (Bld) [#/Vol] 0.0 10*3/uL Normal 0.0-0.2 [facility] Comment on above: Result Comment: PERF ORMED BY: [facility] [place] [address] PATHOLOGIST CLINICAL CONSULTANT MELANIE ALMAZAN M.D. Performed By: #### G LULS #### Point of Care testing , Basophils/100 WBC (Bld) 1.1 % Normal . [facility] Comment on above: Performed By: #### G LULS #### Point of Care testing , Eosinophils (Bld) [#/Vol] 0.1 10*3/uL Normal 0.0-0.45 [facility] Comment on above: Performed By: #### G LULS #### Point of Care testing , Eosinophils/100 WBC (Bld) 2.3 % Normal . [facility] Comment on above: Performed By: #### G LULS #### Point of Care testing , Erythrocyte distribution width (RBC) [Ratio] 13.4 % Normal 11.9-15.3 [facility] Comment on above: Performed By: #### G LULS #### Point of Care testing , Hematocrit (Bld) [Volume fraction] 33.8 % Low 34.0-46.4 [facility] Comment on above: Performed By: #### G LULS #### Point of Care testing , Hemoglobin (Bld) [Mass/Vol] 11.3 g/dL Low 11.8-15.4 [facility] Comment on above: Performed By: #### G LULS #### Point of Care testing , Lymphocytes (Bld) [#/Vol] 0.7 10*3/uL Low 1.00-4.8 [facility] Comment on above: Performed By: #### G LULS #### Point of Care testing , Lymphocytes/100 WBC (Bld) 20.5 % Normal . [facility] Comment on above: Performed By: #### G LULS #### Point of Care testing , MCH (RBC) [Entitic mass] 29.7 pg Normal 24.7-34.3 [facility] Comment on above: Performed By: #### G LULS #### Point of Care testing , MCV (RBC) [Entitic vol] 88.7 fL Normal 80-100 [facility] Comment on above: Performed By: #### G LULS #### Point of Care testing , Mean Corpuscular HGB Conc 33.5 g/dL Normal 32.0-35.0 [facility] Comment on above: Performed By: #### G LULS #### Point of Care testing , Monocytes (Bld) [#/Vol] 0.4 10*3/uL Normal 0.0-0.8 [facility] Comment on above: Performed By: #### G LULS #### Point of Care testing , Monocytes/100 WBC (Bld) 12.0 % Normal . [facility] Comment on above: Performed By: #### G LULS #### Point of Care testing , Neutrophils (Bld) [#/Vol] 2.1 10*3/uL Normal 1.8-7.7 [facility] Comment on above: Performed By: #### G LULS #### Point of Care testing , Neutrophils/100 WBC (Bld) 64.1 % Normal . [facility] Comment on above: Performed By: #### G LULS #### Point of Care testing , NRBC% 0.2 /100{WBC} Normal 0-0.5 [facility] Comment on above: Performed By: #### G LULS #### Point of Care testing , Platelet mean volume (Bld) [Entitic vol] 8.9 fL Normal 6.3-10.7 [facility] Comment on above: Performed By: #### G LULS #### Point of Care testing , Platelets (Bld) [#/Vol] 209 10*3/uL Normal 150-450 [facility] Comment on above: Performed By: #### G LULS #### Point of Care testing , RBC (Bld) [#/Vol] 3.81 10*6/uL Normal 3.60-5.00 [facility] Comment on above: Performed By: #### G BENJAMIN #### Point of Care testing , WBC (Bld) [#/Vol] 3.3 10*3/uL Low 3.8-11.6 [facility] Comment on above: Performed By: #### G BENJAMIN #### Point of Care testing , Creatinine [Mass/volume] in Serum or PlasmaOrdered By: João Soto on 08-22-2024 Creatinine [Mass/Vol] Creatinine [Mass/v olume] in Serum or Plasma Low 0.60-1.20 [facility] Eosinophils Auto (Bld) [#/Vo l]Ordered By: João Soto on 08-22-2024 Eosinophils (Bld) [#/Vol] Automated eosinophil count 0.0-0.45 [facility] Eosinophils/100 WBC Auto (Bl d)Ordered By: João Soto on 08-22-2024 Eosinophils/100 WBC (Bld) Automated eosinophil % . [facility] Erythrocyte distribution wid th Auto (RBC) [Ratio]Ordered By: João Soto on 08-22-2024 Erythrocyte distribution width (RBC) [Ratio] Erythrocyte distribution width [Ratio] by Automated count 11.9-15.3 [facility] Globulin Calc (S) [Mass/Vol] Ordered By: João Soto on 08-22-2024 Globulin (S) [Mass/Vol] Serum globulin measurement by calculation (mass/volume) [facility] Glucose [Mass/volume] in Ser um or PlasmaOrdered By: João Soto on 08-22-2024 Glucose [Mass/Vol] Glucose [Mass/volume ] in Serum or Plasma 70-100 [facility] Hematocrit Auto (Bld) [Volum e fraction]Ordered By: João Soto on 08-22-2024 Hematocrit (Bld) [Volume fraction] Hematocrit [Volume Fraction] of Blood by Automated count Low 34.0-46.4 [facility] Hemoglobin [Mass/volume] in BloodOrdered By: João Soto on 02-07-2025 Hemoglobin (Bld) [Mass/Vol] Hemoglobin [Mass/volume] in Blood Low 11.8-15.4 [facility] Leukocytes [#/volume] correc venkata for nucleated erythrocytes in Blood by Automated counOrdered By: João Soto on 08-22-2024 WBC corrected for nucl RBC Auto (Bld) [#/Vol] Leukocytes [#/volume] corrected for nucleated erythrocytes in Blood by Automated coun Low 3.8-11.6 [facility] Lymphocytes Auto (Bld) [#/Vo l]Ordered By: João Soto on 08-22-2024 Lymphocytes (Bld) [#/Vol] Lymphocytes [#/volume] in Blood by Automated count Low 1.00-4.8 [facility] Lymphocytes/100 WBC Auto (Bl d)Ordered By: João Soto on 08-22-2024 Lymphocytes/100 WBC (Bld) Lymphocytes/100 leukocytes in Blood by Automated count . [facility] MCH Auto (RBC) [Entitic mass ]Ordered By: João Soto on 08-22-2024 MCH (RBC) [Entitic mass] MCH [Entitic mass] by Automated count 24.7-34.3 [facility] MCHC Auto (RBC) [Mass/Vol]Or dered By: João Soto on 08-22-2024 MCHC (RBC) [Mass/Vol] MCHC [Mass/volume] by Automated count 32.0-35.0 [facility] MCV Auto (RBC) [Entitic vol] Ordered By: João Soto on 08-22-2024 MCV (RBC) [Entitic vol] MCV [Entitic volume] by Automated count 80-100 [facility] Monocytes Auto (Bld) [#/Vol] Ordered By: João Soto on 08-22-2024 Monocytes (Bld) [#/Vol] Automated blood monocyte count 0.0-0.8 [facility] Monocytes/100 WBC Auto (Bld) Ordered By: João Soto on 08-22-2024 Monocytes/100 WBC (Bld) Automated monocyte % . [facility] Neutrophils Auto (Bld) [#/Vo l]Ordered By: João Soto on 08-22-2024 Neutrophils (Bld) [#/Vol] Neutrophils [#/volume] in Blood by Automated count 1.8-7.7 [facility] Neutrophils/100 WBC Auto (Bl d)Ordered By: João Soto on 08-22-2024 Neutrophils/100 WBC (Bld) Automated neutrophil % . [facility] No Panel InformationOrdered By: João Soto on 08-22-2024 Estimated GFR (CKD-EPI) > 60.0 mL/Min [facility] Creatinine Clearance (Chem N/A [facility] Nucleated erythrocytes [Pres ence] in Blood by Automated countOrdered By: João Soto on 08-22-2024 Nucleated RBC Auto Ql (Bld) Nucleated erythrocytes [Presence] in Blood by Automated count 0-0.5 [facility] Platelet mean volume Auto (B ld) [Entitic vol]Ordered By: João Soto on 08-22-2024 Platelet mean volume (Bld) [Entitic vol] Platelet mean volume [Entitic volume] in Blood by Automated count 6.3-10.7 [facility] Platelets Auto (Bld) [#/Vol] Ordered By: João Soto on 08-22-2024 Platelets (Bld) [#/Vol] Platelets [#/volume] in Blood by Automated count 150-450 [facility] Potassium [Moles/volume] in Serum or PlasmaOrdered By: João Soto on 08-22-2024 Potassium [Moles/Vol] Potassium [Moles/v olume] in Serum or Plasma 3.5-5.1 [facility] Protein [Mass/volume] in Ser um or PlasmaOrdered By: João Soto on 08-22-2024 Protein [Mass/Vol] Protein [Mass/volume ] in Serum or Plasma Low 6.4-8.9 [facility] RBC Auto (Bld) [#/Vol]Ordere d By: João Soto on 08-22-2024 RBC (Bld) [#/Vol] Erythrocytes [#/volu me] in Blood by Automated count 3.60-5.00 [facility] Serum or plasma albumin/glob ulin mass ratioOrdered By: João Soto on 08-22-2024 Albumin/Globulin [Mass ratio] Serum or plasma albumin/globulin mass ratio [facility] Serum or plasma anion gap de terminationOrdered By: João Soto on 08-22-2024 Anion gap [Moles/Vol] Serum or plasma an ion gap determination Low 6.0-15.0 [facility] Sodium [Moles/volume] in Ser um or PlasmaOrdered By: João Soto on 08-22-2024 Sodium [Moles/Vol] Sodium [Moles/volume ] in Serum or Plasma Low 136-145 [facility] Urea nitrogen [Mass/volume] in Serum or PlasmaOrdered By: João Soto on 08-22-2024 Urea nitrogen [Mass/Vol] Urea nitrogen [Mass/volume] in Serum or Plasma 7-25 [facility] WBC Auto (Bld) [#/Vol]Ordere d By: João Soto on 08-22-2024 WBC (Bld) [#/Vol] Leukocytes [#/volume ] in Blood by Automated count Low 3.8-11.6 [facility] Laboratory - Hematology and Cell countson 08-21-2024 HbA1c (Bld) [Mass fraction] 5.2 % [facility] No Panel Informationon 08-21 [facility] Influenza virus B Ag [Presen ce] in Upper respiratory specimen by Rapid immunoassayon 06-07-2024 FLUBV Ag IA.rapid Ql (Nph) Influenza virus B Ag [Presence] in Upper respiratory specimen by Rapid immunoassay [facility] No Panel Informationon 06-07 Influenza Type A (Rapid) Negative [facility] POC SARS CoV-[address] [facility] Laboratory - Hematology and Cell countson 04-24-2024 HbA1c (Bld) [Mass fraction] 5.3 % [facility] No Panel Informationon 04-24 [facility] XR knee BI 3V - NOT FOR ER U Jamar 04-23-2024 XR knee BI 3V - NOT FOR ER USE [facility] [address] [place] [address] XRay Report Signed Patient: Nata Pete MR#: [id number] : 1945 Acct:[id number] Age/Sex: 79 / F ADM Date: 04/23/24 [place] [facility] [place]: Type: [facility] CLI Attending Dr: Lisa Castillo ASSOCIATE PROFESSOR OF SOCIOLOGYJannaC Copies to: ARCHANA Wilson Ordering Provider: ARCHANA [...] Alvin Newby M.D.04/23/2024 4:09 PM Dictation Location: [place] [address] Transcribed By: [facility] 04/23/24 1609 Dictated By: Alvin Newby DO 04/23/24 1606 Signed By: 04/23/24 1609 Normal [facility] XR shoulder RT min 2V*on XR shoulder RT min 2V* [facility] [address] [place] [address] XRay Report Signed Patient: Nata Pete MR#: [id number] : 1945 Acct:[id number] Age/Sex: 79 / F ADM Date: 04/23/24 [place] [facility] [place]: Type: [facility] CLI Attending Dr: Lisa GRUBBSC Copies to: ARCHANA Wilson Ordering Provider: ARCHANA [...] Alvin Newby M.D.04/23/2024 4:15 PM Dictation Location: [place] [address] Transcribed By: [facility] 04/23/241614 Dictated By: Alvin Newby DO 04/23/241612 Signed By: 04/23/24 161 Normal [facility] Activated partial thrombopla stin time (aPTT) in platelet poor plasma by coagulation aOrdered By: Dharmesh Boss on 03-10-2024 aPTT Coag (PPP) [Time] 28.7 s 25.1-36.[address] [facility] Comment on above: A hematocrit value g reater than 55% may lead to inaccurate results in coagulation testing. Patients having hematocrit values >55% require a special collection tube for coagulation studies. Please contact the laboratory at [phone] for redraw instructions. Basophils Auto (Bld) [#/Vol] Ordered By: Dharmesh Boss on 03-10-2024 Basophils (Bld) [#/Vol] 0.0 10*3/uL 0.0-0.2 [facility] Basophils/100 WBC Auto (Bld) Ordered By: Dharmesh Boss on 03-10-2024 Basophils/100 WBC (Bld) 0.6 % . [facility] Calcium [Mass/volume] in Ser um or PlasmaOrdered By: Dharmesh Boss on 03-10-2024 Calcium [Mass/Vol] 8.8 mg/dL 8.6-10.3 [facility] Carbon dioxide, total [Moles /volume] in Serum or PlasmaOrdered By: Dharmesh Boss on 03-10-2024 CO2 [Moles/Vol] 27.9 mmol/L 21.0-31.0 [facility] Chloride [Moles/volume] in S ozzie or PlasmaOrdered By: Dharmesh Boss on 03-10-2024 Chloride [Moles/Vol] 101 mmol/L 98-107 [facility] Creatine kinase [Enzymatic a ctivity/volume] in Serum or PlasmaOrdered By: Dharmesh Boss on 03-10-2024 CK [Catalytic activity/Vol] 55 U/L 30-223 [facility] Creatinine [Mass/volume] in Serum or PlasmaOrdered By: Dharmesh Boss on 03-10-2024 Creatinine [Mass/Vol] 0.47 mg/dL Low 0.60-1.20 [facility] Eosinophils Auto (Bld) [#/Vo l]Ordered By: Dharmesh Boss on 03-10-2024 Eosinophils (Bld) [#/Vol] 0.1 10*3/uL 0.0-0.45 [facility] Eosinophils/100 WBC Auto (Bl d)Ordered By: Dharmesh Boss on 03-10-2024 Eosinophils/100 WBC (Bld) 1.4 % . [facility] Erythrocyte distribution wid th Auto (RBC) [Ratio]Ordered By: Dharmesh Boss on 03-10-2024 Erythrocyte distribution width (RBC) [Ratio] 14.6 % 11.9-15.3 [facility] Glucose [Mass/volume] in Ser um or PlasmaOrdered By: Dharmesh Boss on 03-10-2024 Glucose [Mass/Vol] 93 mg/dL 70-100 [facility] Comment on above: ADA recommended refe rence rangeRandom Glucose Reference Range is dependent on time and content of last meal. Glucose of more than 200 mg/dL in a nonstressed, ambulatory subject supports the diagnosis of Diabetes Mellitus. Hematocrit Auto (Bld) [Volum e fraction]Ordered By: Dharmesh Boss on 03-10-2024 Hematocrit (Bld) [Volume fraction] 34.4 % 34.0-46.4 [facility] Hemoglobin [Mass/volume] in BloodOrdered By: Dharmesh Boss on 03-10-2024 Hemoglobin (Bld) [Mass/Vol] 11.5 g/dL Low 11.8-15.4 [facility] INR in Platelet poor plasma by Coagulation assayOrdered By: Dharmesh Boss on 03-10-2024 INR Coag (PPP) [Relative time] 1.0 {INR} [facility] Comment on above: INR Therapeutic Rang e A) Pre- and Peroperative OAT started two weeks before surgery. NOT HIP SURGERY: 1.5 - 2.5 HIP SURGERY: 2 - 3B) Primary and secondary prevention of venous THROMBOSIS: 2 - 3C) Active venous thrombosis, pulmonary embolismand prevention of recurrent venous thrombosis: 2 - 3D) Prevention of arterial thromboembolismincluding patients with mechanical heart valves: 3 - 4.5 Leukocytes [#/volume] correc venkata for nucleated erythrocytes in Blood by Automated counOrdered By: Dharmesh Boss on 03-10-2024 WBC corrected for nucl RBC Auto (Bld) [#/Vol] 4.2 10*3/uL 3.8-11.6 [facility] Lymphocytes Auto (Bld) [#/Vo l]Ordered By: Dharmesh Boss on 03-10-2024 Lymphocytes (Bld) [#/Vol] 1.1 10*3/uL 1.00-4.8 [facility] Lymphocytes/100 WBC Auto (Bl d)Ordered By: Dharmesh Boss on 03-10-2024 Lymphocytes/100 WBC (Bld) 25.1 % . [facility] MCH Auto (RBC) [Entitic mass ]Ordered By: Dharmesh Boss on 03-10-2024 MCH (RBC) [Entitic mass] 29.4 pg 24.7-34.3 [facility] MCHC Auto (RBC) [Mass/Vol]Or dered By: Dharmesh Boss on 03-10-2024 MCHC (RBC) [Mass/Vol] 33.5 g/dL 32.0-35.0 [facility] MCV Auto (RBC) [Entitic vol] Ordered By: Dharmesh Boss on 03-10-2024 MCV (RBC) [Entitic vol] 87.5 fL 80-100 [facility] Monocyte distribution width [Entitic volume] in Blood by AutomatedOrdered By: Dharmesh Boss on 03-10-2024 Monocyte distribution width Auto (Bld) [Entitic vol] 15.95 % 0.00-20.00 [facility] Monocytes Auto (Bld) [#/Vol] Ordered By: Dharmesh Boss on 03-10-2024 Monocytes (Bld) [#/Vol] 0.4 10*3/uL 0.0-0.8 [facility] Monocytes/100 WBC Auto (Bld) Ordered By: Dharmesh Boss on 03-10-2024 Monocytes/100 WBC (Bld) 10.0 % . [facility] Natriuretic peptide B [Mass/ Vol]Ordered By: Dharmesh Boss on 03-10-2024 Natriuretic peptide B (Bld) [Mass/Vol] 167.0 pg/mL High 5-100 [facility] Neutrophils Auto (Bld) [#/Vo l]Ordered By: Dharmesh Boss on 03-10-2024 Neutrophils (Bld) [#/Vol] 2.7 10*3/uL 1.8-7.7 [facility] Neutrophils/100 WBC Auto (Bl d)Ordered By: Dharmesh Boss on 03-10-2024 Neutrophils/100 WBC (Bld) 62.9 % . [facility] No Panel InformationOrdered By: Dharmesh Boss on 03-10-2024 Estimated GFR (CKD-EPI) > 60.0 mL/Min [facility] Creatinine Clearance (Chem 47.72 [facility] Nucleated erythrocytes [Pres ence] in Blood by Automated countOrdered By: Dharmesh Boss on 03-10-2024 Nucleated RBC Auto Ql (Bld) 0.0 /100{WBC} 0-0.5 [facility] Platelet mean volume Auto (B ld) [Entitic vol]Ordered By: Dharmesh Boss on 03-10-2024 Platelet mean volume (Bld) [Entitic vol] 8.9 fL 6.3-10.7 [facility] Platelets Auto (Bld) [#/Vol] Ordered By: Dharmesh Boss on 03-10-2024 Platelets (Bld) [#/Vol] 219 10*3/uL 150-450 [facility] Potassium [Moles/volume] in Serum or PlasmaOrdered By: Dharmesh Boss on 03-10-2024 Potassium [Moles/Vol] 4.1 mmol/L 3.5-5.1 [facility] Prothrombin time (PT)Ordered By: Dharmesh Boss on 03-10-2024 PT Coag (PPP) [Time] 11.4 s 9.0-12.9 [facility] Comment on above: A hematocrit value g reater than 55% may lead to inaccurate results in coagulation testing. Patients having hematocrit values >55% require a special collection tube for coagulation studies. Please contact the laboratory at [phone] for redraw instructions. RBC Auto (Bld) [#/Vol]Ordere d By: Dharmesh Boss on 03-10-2024 RBC (Bld) [#/Vol] 3.93 10*6/uL 3.60-5.00 [facility] Serum or plasma anion gap de terminationOrdered By: Dharmesh Boss on 03-10-2024 Anion gap [Moles/Vol] 8.2 mmol/L 6.0-15.0 [facility] Sodium [Moles/volume] in Ser um or PlasmaOrdered By: Dharmesh Boss on 03-10-2024 Sodium [Moles/Vol] 133 mmol/L Low 136-145 [facility] Troponin I.cardiac [Mass/vol ume] in Serum or Plasma by Detection limit <= 0.01 ng/Ordered By: Dharmesh Boss on 03-10-2024 Troponin I.cardiac DL <= 0.01 ng/mL [Mass/Vol] 7.4 pg/mL 0.0-15.0 [facility] Urea nitrogen [Mass/volume] in Serum or PlasmaOrdered By: Dharmesh Boss on 03-10-2024 Urea nitrogen [Mass/Vol] 13 mg/dL 7-25 [facility] WBC Auto (Bld) [#/Vol]Ordere d By: Dharmesh Boss on 03-10-2024 WBC (Bld) [#/Vol] 4.2 10*3/uL 3.8-11.6 [facility] Laboratory Outside Office Co pyon 10-24-2023 Laboratory Outside Office Copy [id number]#1.00TIFF Normal [facility] In office Testingon 10-18-19 24 In office Testing [id number]#1.00TIF F Normal [facility] In office Testing [id number]#1.00TIFF Normal [facility] ENGINEERING TECHNICIAN Drug Screen-LCon 024 Test Name Toxassure 23 Invalid Interpretation Code [facility] Comment on above: Result Comment: laurel red correct information Performed By: #### 1 [id number] ####[facility] [address] [place] [address] Physician Orderon 10-18-2023 Physician Order [id number]#1.00TIF F Normal [facility] Physician Order [id number]#1.00TIFF Normal [facility] Consent for Surgery/Procedur e Officeon 10-17-2023 Consent for Surgery/Procedure Office [id number]#1.00TIFF Normal [facility] Consent for Treatmenton Consent for Treatment [id number]#1.00TIFF Normal [facility] Consultation Noteon 10-17-19 Consultation Note Patient: [...] states that they have been giving her Borger 5/325 twice daily as needed pain that [...] All Problems Resolved: Hypertension / SNOMED CT 07444564 Resolved: Osteoarthritis / SNOMED CT 1205930961 Resolved: High cholesterol / SNOMED CT 1200953289 Resolved: Diabetes mellitus / SNOMED CT 195956717 Histories Past Medical History: Resolved Hypertension (14655054): Resolved. Osteoarthritis (3764436750): Resolved. High cholesterol (9039657667): Resolved. Diabetes mellitus ([id number]): Resolved. Family History: Hypertension Father Brother Sister Heart disease Father Diabetes mellitus type 2 Mother Brother Stroke Mother CAD (coronary artery disease) Father Procedure history: Appendectomy (SNOMED CT 274042488). Cholecystectomy (SNOMED CT 97358574). Tonsillectomy (SNOMED CT 915692350). Repair of right hip joint (SNOMED CT 323984962490683). Osteoporotic fracture of left hip (SNOMED CT 940254524095862). Social History Social & Psychosocial Habits Alcohol [...] Appropriate mood & affect. Integumentary: Warm, Dry, [place]. Review / Management Results review: No qualifying [...] knee done (more content not included)... Normal [facility] Comment on above: Result Comment: Elec tronically Signed By: Selene WEISS, Kaci\.silvia\Date and Time Signed: 10/17/23 11:44 EDT HIPAA Forms Officeon 024 HIPAA Forms Office [id number]#1.00TIFF [facility] Legal Correspondence Officeo n 10-17-2023 Legal Correspondence Office [id number]#1.00TIFF Normal [facility] Legal Correspondence Office [id number]#1.00TIFF Normal [facility] Office/Clinic Note-Physician on 10-17-2023 Office/Clinic Note-Physician [id number]#1.00TIFF Normal [facility] Patient Correspondenceon Patient Correspondence [id number]#1.00TIFF Normal [facility] Patient Correspondence [id number]#1.00TIFF Normal [facility] Patient Correspondence [id number]#1.00TIFF Normal [facility] Patient Correspondence [id number]#1.00TIFF Normal [facility] Patient Correspondence [id number]#1.00TIFF Normal [facility] Patient History Officeon Patient History Office [id number]#1.00TIFF Normal [facility] Radiology Outside Office Container Finishing Inspector yon 10-17-2023 Radiology Outside Office Copy [id number]#1.00TIFF Normal [facility] Reference Laboratory Testing Ordered By: Carlie Ernst on 10-17-2023 Test Name Compliance drug Invalid Interpretation Code [facility] SendOutsSS C Urineon 10-03-2023 Bacteria identified Cx [...] Locations R1: This test was performed at: [facility], [address] [place] [address], [address]- , [place], [facility] Comment on above: Performed By: #### 1 [id number], [id number] ####[facility] [address] [place] [address] Consent for Treatmenton 09-13 Consent for Treatment [id number]#1.00TIFF Normal [facility] Discharge Instructionson Discharge Instructions [id number]#1.00TIFF Normal [facility] ED Clinical Summaryon 2023 ED Clinical Summary (Inserted Image. Angelique ble to display) [address] [address] ED Clinical Summary Person Information Name: NATA PETE [facility] Age: 78 Years : 1945 Sex: Female Language: Tamazight PCP: Aisha RAGLAND PA-C Marital Status: Phone: [phone] Visit Id: Visit Reason: Urinary frequency; POSS [...] 10/01/2023 06:38:15 10/01/2023 06:38:15 10/01/2023 06:38:15 ADDRESS: [facility] [facility] [id number] PHYS DOC NOTES: MEDICAL INFORMATION: Prescriptions Given: New Medications [id number], [address] [place], [place] [id number], [phone] cephalexin (Keflex 500 mg Cap) 1 Capsules [...] Follow up: With: Address: When: Aisha RAGLAND [address] [place] [address] Business (1) In 3 days DIAGNOSIS: Acute UTI Normal [facility] ED Note-Physicianon 10-01-19 ED Note-Physician Basic [...] and Complexity of Problems Differential Diagnosis: [] [facility] Data External documents reviewed: N/A My [...] day(s), # 14 cap(s), Refills(s) 0, Pharmacy: [id number], 175, cm, 10/01/23 5:36:00 EDT, Height/Length Dosing, 55, kg, 10/01/23 5:36:00 EDT, Weight Dosing cephalexin, 500 mg = 1 cap(s), Cap, Oral, Once, Stop date 10/01/23 6:24:00 EDT, STAT, Start date 10/01/23 6:24:00 EDT, 10/01/23 6:24:00 EDT phenazopyridine, 100 mg = 1 tab(s), Oral, TID, X 3 day(s), # 9 tab(s), Refills(s) 0, Pharmacy: [id number], 175, cm, 10/01/23 5:36:00 EDT, Height/Length Dosing, 55, kg, 10/01/23 5:36:00 EDT, Weight Dosing UA With Cult Reflex Urine Culture Disposition Plan Discharge Prescription List Prescriptions Keflex 500 mg Cap, 500 mg= 1 cap(s), Oral, q12hr Pyridium 100 mg Tab, 100 mg= 1 tab(s), Oral, TID Follow-up With When Contact Information Aisha RAGLAND In [address] [place] [address] [facility] (1) Additional Instructions: Patient Education Urinary Tract [...] Substance Abuse (more content not included)... Normal [facility] Comment on above: Result Comment: Elec [...] this condition includes: ? Antibiotic medicine. ? Baft-rfc-xnzbfhe medicines to treat discomfort. ? Drinking enough [...] these instructions at home: Medicines ? Take lkhu-dyy-trmjqyt and prescription medicines only as told by [...] Document Revie (more content not included)... Normal [facility] ED Patient Summaryon 024 ED Patient Summary (Inserted Image. Angelique ble to display) [place] [id number] Patient Discharge Instructions Person Information Name: NATA PETE Age: 78 Years Arrival Date: 10/01/2023 05:14:21 Discharge Diagnosis: Acute UTI Primary Care Physician: Aisha RAGLAND PA-C Provider Information Primary Provider: Dillon Hurtado DO [employer] Supervisor:None The exam and treatment you received in the Emergency Department were for an urgent problem and are not intended as complete care. It is important that you follow up with a doctor, nurse practitioner, or physician?s medical assistant per diem for ongoing care. If your symptoms become worse or you do not improve as expected and you are unable to reach your usual health care provider, you should return to the Emergency Department. We are available 24 hours a day. NATA PETE has been given the following list of patient education materials, prescriptions and follow-up instructions: Follow-up Instructions: With: Address: When: Aisha RAGLAND [address] [place] [address] Business (1) In 3 days In the event that this physician does not participate in your insurance network, please consult with your insurance company to find a nearby participating provider. Patient Education Materials: Urinary Tract Infection, Adult A MESSAGE TO ALL PATIENTS REGARDING OPIOIDS PRESCRIPTION OPIOIDS: WHAT YOU NEED TO KNOW Prescription opioids can be used to help relieve dxraodlm-su-jlhjjz pain and are often prescribed following a [...] be struggling with addiction, tell your health home care chaplain and ask for guidance or call [facility] National Helpline at 3-300-631-ODWC. v Source: Department of [facility] (more content not included)... Normal [facility] UA With Cult Reflexon 2023 Bilirubin Ql (U) Negative Normal Negative [facility] Comment on above: Performed By: #### 1 [id number], [id number] ####[facility] [address] [place] [address] Clarity (U) CLOUDY Abnormal Clear [facility] Comment on above: Performed By: #### 1 [id number], [id number] ####[facility] [address] [place] [address] Color (U) RED Abnormal Yellow [facility] Comment on above: Performed By: #### 1 [id number], [id number] ####[facility] [address] [place] [address] Epithelial cells.squamous LM.HPF (Urine sed) [#/Area] 0-2 Normal 0-2 [facility] Comment on above: Performed By: #### 1 [id number], [id number] ####[facility] [address] [place] [address] Glucose Test strip (U) [Mass/Vol] Negative Normal Negative [facility] Comment on above: Performed By: #### 1 9532062, 4491268 ####[facility] [address] [place] [address] Hemoglobin Ql (U) 3+ Abnormal Negative [facility] Comment on above: Performed By: #### 1 2668592, 8846927 ####[address] [address] Ketones (U) [Mass/Vol] 1+ Abnormal Negative [facility] Comment on above: Performed By: #### 1 [id number], 6583171 ####[address] [address] Burley.plasma/Burley .RBC (Bld) [Mass ratio] >75 Abnormal 0-3 [facility] Comment on above: Performed By: #### 1 6479103, 9765740 ####[address] [address] Nitrite Ql (U) Positive Abnormal Negative [facility] Comment on above: Performed By: #### 1 7169154, [id number] ####[facility] [address] [place] [address] pH (U) 7.0 [pH] Invalid Interpretation Code 5.0-9.0 [facility] Comment on above: Performed By: #### 1 [id number], [id number] ####[address] [address] Protein (U) [Mass/Vol] 2+ Abnormal Negative [facility] Comment on above: Performed By: #### 1 0538784, [id number] ####[address] [place] [address] Specific gravity (U) [Rel density] 1.020 Invalid Interpretation Code 1.005-1.03 0 [facility] Comment on above: Performed By: #### 1 3920634, 3837412 ####[place] [address] Type of Urine collection method Clean Catch Normal [facility] Comment on above: Performed By: #### 1 1176736, 9478253 ####[place] [address] Urobilinogen Qn (U) 0.2 {Otilia'U}/dL Normal 0.0-1.0 [facility] Comment on above: Performed By: #### 1 9723423, 8998380 ####[place] [address] WBC Auto Ql (U) 2+ Abnormal Negative [facility] Comment on above: Performed By: #### 1 8422645, 3539698 ####[place] [address] WBC LM.HPF (Urine sed) [#/Area] /[HPF] Abnormal 0-5 [facility] Comment on above: Performed By: #### 1 7178465, [id number] ####[place] [address] URINALYSISOrdered By: Mahsa Moses on 10-01-2023 Bilirubin Ql (U) Negative (10/01/23 5:37 AM) Normal Negative [facility] UA Auto SS Clarity (U) Cloudy *ABN* (10/01/23 5:37 AM) Invalid Interpretation Code Clear [facility] UA Auto SS Color (U) Red *ABN* (10/01/23 5:37 AM) Invalid Interpretation Code Yellow [facility] UA Auto SS Epithelial cells.squamous LM.HPF (Urine sed) [#/Area] 0-2 /HPF Normal 0-2/HPF [facility] UA Aut o SS Glucose Test strip (U) [Mass/Vol] Negative (10/01/23 5:37 AM) Normal Negative [facility] UA Auto SS Hemoglobin Ql (U) 3+ *ABN* (10/01/23 5:37 AM) Invalid Interpretation Code Negative [facility] UA Auto SS Ketones (U) [Mass/Vol] 1+ *ABN* (10/01/23 5:37 AM) Invalid Interpretation Code Negative [facility] UA Auto SS Burley.plasma/Burley .RBC (Bld) [Mass ratio] >75 /HPF Invalid [...] Desc Clean Catch (10/01/23 5:37 AM) Normal [facility] UA Auto SS Urobilinogen Qn (U) 0.7248711 {Otilia'U}/dL Normal 0.0 - 1.0 EU/dL [facility] UA Auto SS WBC Auto Ql (U) 2+ *ABN* (10/01/23 5:37 AM) Invalid Interpretation Code Negative [facility] UA Auto SS WBC LM.HPF (Urine sed) [#/Area] /[HPF] Invalid Interpretation Code 0-5/HPF [facility] UA Auto SS Outside Records Officeon Outside Records Office [id number]#1.00TIF F [facility] Outside Records Officeon Outside Records Office [id number]#1.00TIFF [facility] Referrals Officeon Referrals Office [id number]#1.00TIFF [facility] Microalbumin/Creatinine rati o panel (U)on 08-16-2023 Albumin DL <= 20 mg/L (U) [Mass/Vol] mg/dL See Note: mg/dL [facility] Comment on above: Reference Range: Reference Range Not established Albumin/Creatinine (U) [Mass ratio] NOTE NINF [facility] Comment on above: NOTE: The [...] 18 mg/dL Low 20 - 275 mg/dL [facility] Interpretation and review of laboratory results Abnormal [facility] Performing Organizat ion Information Site ID: QPT Name: [email or web address] [facility] Address: [address] [place] [address], [address] [place] [phone] Director: Willie Rodriguez MD [facility] Laboratory - Hematology and Cell countson 08-14-2023 HbA1c (Bld) [Mass fraction] 5.2 % [facility] No Panel Informationon 08-14 Interpretation and review of laboratory results Normal [facility] XR shoulder RT min 2V*on XR shoulder RT min 2V* [facility] [employer] Other XR shoulder RT min 2V* [facility] [employer] Other XR shoulder RT min 2V* [address] [place] [address] [employer] Other XR shoulder RT min 2V* [place] [address] [facility] [employer] Other XR shoulder RT min 2V* XRay Report N [facility] [employer] Other XR shoulder RT min 2V* [facility] [employer] Other XR shoulder RT min 2V* Patient: Nata Pete MR#: [id number] [facility] [employer] Other XR shoulder RT min 2V* [id number] No rt [employer] Other XR shoulder RT min 2V* : 1945 Acct:[id number] [employer] Other XR shoulder RT min 2V* Age/Sex: 77 / F A DM Date: 09/13/22 [employer] Other XR shoulder RT min 2V* Loc: SOXD Room: T ype: [facility] [employer] Other XR shoulder RT min 2V* Attending Dr: Hugo Soto DO [employer] Other XR shoulder RT min 2V* Copies to: João Soto DO [employer] Other XR shoulder RT min 2V* Ordering Provider : João Soto DO [employer] Other XR shoulder RT min 2V* Date of Service: 09/13/22 [employer] Other XR shoulder RT min 2V* XR/XR shoulder RT min 2V*: Acute pain of right shoulder [employer] Other XR shoulder RT min 2V* RIGHT SHOULDER - - 3 views [employer] Other XR shoulder RT min 2V* CLINICAL HISTORY: Right shoulder pain for years. [employer] Other XR shoulder RT min 2V* COMPARISON: None [employer] Other XR shoulder RT min 2V* FINDINGS: No rt [employer] Other XR shoulder RT min 2V* Severe degenerati ve changes right humeral joint. Mild degenerative changes right AC joint. No acute [employer] Other XR shoulder RT min 2V* bony process. [employer] Other XR shoulder RT min 2V* 4 XR/XR shoulder RT min 2V* [employer] Other XR shoulder RT min 2V* IMPRESSION: N [employer] Other XR shoulder RT min 2V* DEGENERATIVE WHITE GES INVOLVING THE RIGHT SHOULDER WITHOUT ACUTE BONY PROCESS. [employer] Other XR shoulder RT min 2V* Impression dictat ed by: Dedrick Arroyo Jr., D.OKiara09/13/2022 4:36 PM [employer] Other XR shoulder RT min 2V* Dictation Locatio n: RADIO-PC-04 [employer] Other XR shoulder RT min 2V* Transcribed By: Carolin RODRIGUEZ 09/13/22 [facility] [employer] Other XR shoulder RT min 2V* Dictated By: Catracho Arroyo Jr, DO 09/13/22 [facility] [employer] Other XR shoulder RT min 2V* Signed By: No rt [employer] Other XR shoulder RT min 2V* 09/13/22 [facility] [employer] Other MG MAMM SCREEN 3D LISA CADon 02-23-2022 MG MAMM SCREEN 3D LISA CAD Patient: NATA PETE Exam Date: 02/23/2022 : 1945 Gender:F Ordering : MRS. AISHA RAGLAND Admission #: [id number] Family : Order #: [id number] CLICK HERE TO VIEW EXAM RADIOLOGY REPORT [...] breast cancer at age 72. LOCATION: [facility] BREAST COMPOSITION: Scattered areas fibroglandular density. [...] Burk MD on 02/24/2022 at 08:28 Normal [facility] XR knee BI 3Von 10-05-2021 XR knee BI 3V [facility] [employer] Other XR knee BI 3V [facility] [employer] Other XR knee BI 3V [address] [place] [address] [employer] Other XR knee BI [address] [address] [facility] [employer] Other XR knee BI 3V XRay Report [facility]co LS[facility] Other XR knee BI 3V Signed [employer] Other XR knee BI 3V Patient: Shabana Pete MR#: [id number] [employer] Other XR knee BI 3V [id number] [employer] Other XR knee BI 3V : 1945 Acct:[id number] [employer] Other XR knee BI 3V Age/Sex: 76 / F ADM Date: 10/05/21 [employer] Other XR knee BI 3V Loc: SOXD Room: Type : [facility] [employer] Other XR knee BI 3V Attending Dr: João Soto DO [employer] Other XR knee BI 3V Ordering Provider: Li Soto, DO [employer] Other XR knee BI 3V Date of Service: 10/05/21 [employer] Other XR knee BI 3V XR/XR knee BI 3V - NOT FOR ER USE: Pain in right knee;Pain in left knee [employer] Other XR knee BI 3V Copies to: João Soto, DO [employer] Other XR knee BI 3V BILATERAL KNEES - 3 views each [employer] Other XR knee BI 3V COMPARISON: 07/20/2020 right knee. [employer] Other XR knee BI 3V CLINICAL DATA: Bilat eral generalized knee pain and difficulty ambulating. No injury. [employer] Other XR knee BI 3V Standing AP, lateral and sunrise views were obtained. There is osteopenia. No acute fractures or [employer] Other XR knee BI 3V dislocation are note d. 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 There is also lateral subluxation of the patella bilaterally. There is moderate joint space [employer] Other XR knee BI 3V narrowing at these s ites. There is also narrowing at the lateral compartments. [employer] Other XR knee BI 3V marginal spurring is seen. There is a trace amount of joint fluid. No focal soft tissue swelling is [employer] Other XR knee BI 3V noted. [employer] Other XR knee BI 3V X R/XR knee BI 3V - NOT FOR ER USE [employer] Other XR knee BI 3V IMPRESSION: [employer] Other XR knee BI 3V OSTEOPENIA AND ADVAN DONN DEGENERATIVE CHANGES. [employer] Other XR knee BI 3V Impression dictated by: Shahana Pérez M.D.10/05/2021 2:58 PM [employer] Other XR knee BI 3V Dictation Location: RADIO-PC-11 [employer] Other XR knee BI 3V Transcribed By: PWS 10/05/21 [facility] [employer] Other XR knee BI 3V Dictated By: Shahana Pérez MD 10/05/21 [facility] [employer] Other XR knee BI 3V Signed By: [employer] Other XR knee BI 3V 10/05/21 [facility] [employer] Other Q - COMPREHENSIVE METABOLIC PANEL W/EGFRon 09-30-2021 Albumin [Mass/Vol] 4.0 g/dL Normal 3.6-5.1 [facility] Manager Fashion Comment on above: Order Comment: [facility] Testing performed at: [facility], [address] [place] [address], [address] [place] [address], [address] [place] [address], Tube Laser Operator: Willie Rodriguez MD [facility] Collection Date/Time: [facility] Results Received Date/Time: [facility] Reported Date/Time: FASTING: NO Performed By: #### 1 [id number] #### [facility] Default [address] [place] [address] Albumin/Globulin [Mass ratio] 2.4 {ratio} Normal 1.0-2.5 [facility] Manager Fashion Comment on above: Order Comment: [facility] Testing performed at: [facility], [facility], [address] [place] [address], [phone], Tube Laser Operator: Willie Rodriguez MD [facility] Collection Date/Time: [facility] Results Received Date/Time: [facility] Reported Date/Time: FASTING: NO Performed By: #### 1 0231A #### [facility] Default [address] [place] [address] ALP [Catalytic activity/Vol] 68 U/L Normal 37-153 [place] Manager Fashion Comment on above: Order Comment: [facility] Testing performed at: [email or web address] [facility], [address] , [address] [place] [address], [address] [place] [address], Tube Laser Operator: Willie Rodriguez MD [facility] Collection Date/Time: [facility] Results Received Date/Time: [facility] Reported Date/Time: FASTING: NO Performed By: #### 1 0231A #### [facility] Default [address] [place] [address] ALT [Catalytic activity/Vol] 8 U/L Normal 6-29 [facility] Manager Fashion Comment on above: Order Comment: [facility] Testing performed at: [employer] [email or web address] [facility], [address] [facility], [address] [place] [address], [address] [place] [address], Tube Laser Operator: Willie Rodriguez MD [facility] Collection Date/Time: [facility] Results Received Date/Time: [facility] Reported Date/Time: FASTING: NO Performed By: #### 1 0231A #### [facility] Default [address] [place] [address] AST [Catalytic activity/Vol] 12 U/L Normal 10-35 [facility] Manager Fashion Comment on above: Order Comment: [facility] Testing performed at: [email or web address] [facility], [address] , [address] [place] [address], [address] [place] [address], Tube Laser Operator: Willie Rodriguez MD [facility] Collection Date/Time: [facility] Results Received Date/Time: [facility] Reported Date/Time: FASTING: NO Performed By: #### 1 0231A #### [facility] Default [address] [place] [address] Bilirubin [Mass/Vol] 0.4 mg/dL Normal 0.2-1.2 [facility] Comment on above: Order Comment: [facility] Testing performed at: [employer] [email or web address] [facility], [address] , [address] [place] [address], [address] [place] [address], Tube Laser Operator: Willie Rodriguez MD [facility] Collection Date/Time: [facility] Results Received Date/Time: [facility] Reported Date/Time: FASTING: NO Performed By: #### 1 0231A #### [facility] Default [address] [place] [address] Calcium [Mass/Vol] 9.8 mg/dL Normal 8.6-10.4 [facility] Specialist Comment on above: Order Comment: [facility] Testing performed at: [employer] [email or web address] [facility], [address] [place] [address], [address] [place] [address], [address] [place] [address], Tube Laser Operator: Willie Rodriguez MD [facility] Collection Date/Time: [facility] Results Received Date/Time: [facility] Reported Date/Time: FASTING: NO Performed By: #### 1 0231A #### [facility] Default [address] [place] [address] Chloride [Moles/Vol] 96 mmol/L Low 98-110 [facility] Specialist Comment on above: Order Comment: [facility] Testing performed at: [employer] [email or web address] [facility], [address] [place] [address], [address] [place] [address], [address] [place] [address], Tube Laser Operator: Willie Rodriguez MD [facility] Collection Date/Time: [facility] Results Received Date/Time: [facility] Reported Date/Time: FASTING: NO Performed By: #### 1 0231A #### [facility] Default [address] [place] [address] CO2 [Moles/Vol] 28 mmol/L Normal 20-32 [facility] Specialist Comment on above: Order Comment: [facility] Testing performed at: [facility], [address] [place] [address], [address] [place] [address], [address] [place] [address], Tube Laser Operator: Willie Rodriguez MD [facility] Collection Date/Time: [facility] Results Received Date/Time: [facility] Reported Date/Time: FASTING: NO Performed By: #### 1 0231A #### [facility] Default [address] [place] [address] Creatinine [Mass/Vol] 0.43 mg/dL Low 0.60-0.93 [place] Manager [employer] Comment on above: Order Comment: [facility] Testing performed at: [facility], [address], [address] [place] [address], [phone], Tube Laser Operator: Willie Rodriguez MD [facility] Collection Date/Time: [facility] Results Received Date/Time: [facility] Reported Date/Time: FASTING: NO Result Comment: For patients >49 years of age, the reference limit for Creatinine is approximately 13% higher for people identified as -St Helenian. Performed By: #### 1 [id number] #### [facility] Default [address] [place] [address] eGFRAA ([facility]) 116 mL/min/1.73m2 Normal > OR = 60 Nor thern [place] Manager [employer] Comment on above: Order Comment: [facility] Testing performed at: [facility], [address], [address] [place] [address], [address] [place] [address], Tube Laser Operator: Willie Rodriguez MD [facility] Collection Date/Time: [facility] Results Received Date/Time: [facility] Reported Date/Time: FASTING: NO Performed By: #### 1 [id number] #### [facility] Default [address] [place] [address] eGFRNAA ([facility]) 100 mL/min/1.73m2 Normal > OR = 60 No rthern [place] Manager [employer] Comment on above: Order Comment: [facility] Testing performed at: [facility], [address] , [address] [place] [address], [address] [place] [address], Tube Laser Operator: Willie Rodrigeuz MD [facility] Collection Date/Time: [facility] Results Received Date/Time: [facility] Reported Date/Time: FASTING: NO Performed By: #### 1 [id number] #### [facility] Default [address] [place] [address] Globulin (S) [Mass/Vol] 1.7 g/dL Low 1.9-3.7 [facility] Manager Fashion Comment on above: Order Comment: [facility] Testing performed at: [facility], [address] [place] [address], [address] [place] [address], [address] [place] [address], Tube Laser Operator: Willie Rodriguez MD [facility] Collection Date/Time: [facility] Results Received Date/Time: [facility] Reported Date/Time: FASTING: NO Performed By: #### 1 [id number] #### [facility] Default [address] [place] [address] Glucose [Mass/Vol] 98 mg/dL Normal 65-139 Stoney villalba [place] Manager [employer] Comment on above: Order Comment: [facility] Testing performed at: [facility], [address] [place] [address], [address] [place] [address], [address] [place] [address], Tube Laser Operator: Willie Rodriguez MD [facility] Date/Time: [facility] Results Received Date/Time: [facility] Reported Date/Time: FASTING: NO Result Comment: Non-fasting reference interval Performed By: #### 1 [id number] #### [facility] Default [address] [place] [address] Potassium [Moles/Vol] 4.7 mmol/L Normal 3.5-5.3 [facility] Manager Fashion Comment on above: Order Comment: [facility] Testing performed at: [facility], [address] [place] [address], [address] [place] [address], [address] [place] [address], Tube Laser Operator: Willie Rodriguez MD [facility] Collection Date/Time: [facility] Results Received Date/Time: [facility] Reported Date/Time: FASTING: NO Performed By: #### 1 [id number] #### [facility] Default [address] [place] [address] Protein [Mass/Vol] 5.7 g/dL Low 6.1-8.1 Stoney villalba [place] Manager [employer] Comment on above: Order Comment: [facility] Testing performed at: [email or web address], [address] [place] [address], [address] [place] [address], [address] [place] [address], Tube Laser Operator: Willie Rodriguez MD [facility] Collection Date/Time: [facility] Results Received Date/Time: [facility] Reported Date/Time: FASTING: NO Performed By: #### 1 [id number] #### [facility] Default [address] [place] [address] Sodium [Moles/Vol] 130 mmol/L Low 135-146 [facility] Comment on above: Order Comment: [facility] Testing performed at: [employer] [email or web address] [facility], [address] [place] [address], [address] [place] [address], [address] [place] [address], Tube Laser Operator: Willie Rodriguez MD [facility] Collection Date/Time: [facility] Results Received Date/Time: [facility] Reported Date/Time: FASTING: NO Performed By: #### 1 [id number] #### [facility] Default [address] [place] [address] Urea nitrogen [Mass/Vol] 14 mg/dL Normal 7-25 [facility] Comment on above: Order Comment: [facility] Testing performed at: [employer] [email or web address] [facility], [address] [place] [address], [address] [place] [address], [address] [place] [address], Tube Laser Operator: Willie Rodriguez MD [facility] Collection Date/Time: [facility] Results Received Date/Time: [facility] Reported Date/Time: FASTING: NO Performed By: #### 1 [id number] #### [facility] Default [address] [place] [address] Urea nitrogen/Creatinine [Mass ratio] 33 mg/mg High 6-22 [facility] Specialist Comment on above: Order Comment: [facility] Testing performed at: [employer] [email or web address] [facility], [address] [facility], [address] [place] [address], [address] [place] [address], Tube Laser Operator: Willie Rodriguez MD [facility] Collection Date/Time: [facility] Results Received Date/Time: [facility] Reported Date/Time: FASTING: NO Performed By: #### 1 [id number] #### [facility] Default [address] [facility] [place] [address] PROF 14(COMP METB)on 021 Albumin [Mass/Vol] 3.6 g/dL Normal 3.5-5.0 [facility] Comment on above: Performed By: #### C MP #### [facility] [address] [place], [place] [phone] [place] Albumin/Globulin [Mass ratio] 1.3 {ratio} Normal [facility] Comment on above: Performed By: #### C MP #### [facility] [address] [place], [place] [phone] [place] ALP [Catalytic activity/Vol] 57 U/L Normal 38-126 [facility] Comment on above: Performed By: #### C MP #### [facility] [address] [place] [address] [place] Shah[place] ALT [Catalytic activity/Vol] 16 U/L Normal 9-52 [facility] Comment on above: Performed By: #### C MP #### [facility] [address] [place], [place] [phone] [place] Shahana Anion gap [Moles/Vol] 9.4 mmol/L Normal [facility] Comment on above: Performed By: #### C MP #### [facility] [address] [place], [place] [phone] [place] Shah[place] AST [Catalytic activity/Vol] 14 U/L Normal 14-36 [facility] Comment on above: Performed By: #### C MP #### [facility] [address] [place], [place] [phone] [place] Bilirubin [Mass/Vol] 0.4 mg/dL Normal 0.2-1.3 [facility] Comment on above: Performed By: #### C MP #### [facility] [address] [place], [place] [phone] [place] Calcium [Mass/Vol] 9.1 mg/dL Normal 8.4-10.2 [facility] Comment on above: Performed By: #### C MP #### [facility] [address] [phone] [place] Chloride [Moles/Vol] 102 mmol/L Normal 98-107 [facility] Comment on above: Performed By: #### C MP #### [facility] [address] [address] [place] Shahana CO2 [Moles/Vol] 28.8 mmol/L Normal 22.0-30.0 [facility] Comment on above: Performed By: #### C MP #### [facility] [address] [place] [address] [place] Creatinine [Mass/Vol] 0.53 mg/dL Normal 0.52-1.04 [facility] Comment on above: Performed By: #### C MP #### [facility] [address] [place] [address] [place] Shahana EGFR-AF KITTITIAN >60 Normal >=60 [facility] Comment on above: Performed By: #### C MP #### [facility] [address] [place] [address] [place]ana EGFR-NON AF KITTITIAN >60 Normal >=60 [facility] Comment on above: Performed By: #### C MP #### [facility] [address] [place], [place] [phone] [place] Globulin (S) [Mass/Vol] 2.7 g/dL Normal [facility] Comment on above: Performed By: #### C MP #### [facility] [address] [place], [place] [phone] [place] Glucose [Mass/Vol] 98 mg/dL Normal 74-106 [facility] Comment on above: Performed By: #### C MP #### [facility] [address] [place] [address] [place] Shahana Potassium [Moles/Vol] 4.2 mmol/L Normal 3.4-5.0 [facility] Comment on above: Performed By: #### C MP #### [facility] [address] [place] [address] [place] Protein [Mass/Vol] 6.3 g/dL Normal 6.1-8.2 [facility] Comment on above: Performed By: #### C MP #### [facility] [address] [place], [place] [address] [place] Harkins Sodium [Moles/Vol] 136 mmol/L Critically low 137-145 [facility] Comment on above: Performed By: #### C MP #### [facility] [address] [phone] Santadavis Harkins Urea nitrogen [Mass/Vol] 15.0 mg/dL Normal 7.0-17.0 [facility] Comment on above: Performed By: #### C MP #### [facility] [address] [address] [place]adavis Harkins Urea nitrogen/Creatinine [Mass ratio] 28.3 mg/mg Normal [facility] Comment on above: Performed By: #### C MP #### [facility] [address] [address] [place] Harkins CNOVSPon 11-07-2017 CNOVS Visit (SP) Office (HEMASA) MAYDA PETE ([id number]) [facility] Department11/07/17 3:00 PM WAYNE PAULA [...] STRESS FORMULA ORAL) Take by mouth.Green Tea [place]field Extract (GREEN TEA) cap Take by mouth.DIPHENHYDRAMINE [...] lb 12.8 oz) SpO2 100% BMI 29.79 kg/m7WFUWOGCV EXAMINATIONGeneral: Alert and oriented, no distress, pleasant [...] if abnormality recurs/persists or otherabnormality developsAlfred LESVIA Velizefarabella Provider: WAYNE PAULA [[id number]]Allergies As of Date: 11/07/2017 Noted Allergy ReactionBEES [...] Mendoza 11/07/2017 3:00 PM >> CAPRICE MENDOZA [facility] Nov 07, 2017 3:00 PM Received from: [facility] CHOLECALCIFEROL (VITAMIN D3) 1,000 UNIT TABLET >> Caprice Mendoza 11/07/2017 3:00 PM >> CAPRICE MENDOZA [facility] Nov 07, 2017 3:00 PM Received from: [facility] VITAMIN B-12 ORAL >> Caprice Mendoza 11/07/2017 3:01 PM >> CAPRICE MENDOZA [facility] Nov 07, 2017 3:01 PM Received from: [facility] FISH OIL ORAL >> Caprice Mendoza 11/07/2017 3:01 PM >> CAPRICE MENDOZA [facility] Nov 07, 2017 3:01 PM Received from: [facility] ATENOLOL 50 MG TABLET >> Caprice Mendoza 11/07/2017 3:02 PM >> CAPRICE MENDOZA [facility] Nov 07, 2017 3:02 PM Received from: [facility] LISINOPRIL 20 MG TABLET >> Caprice Mendoza 11/07/2017 3:02 PM >> CAPRICE MENDOZA [facility] Nov 07, 2017 3:02 PM Received from: [facility] VITAMIN C ORAL >> Caprice Mendoza 11/07/2017 3:00 PM >> CAPRICE MENDOZA [facility] Nov 07, 2017 3:00 PM [facility] As Of Date 11/07/2017 Noted Resolved Lymphopenia [D72.810] INVALID FOR*Encounter Status:Closed by WAYNE PAULA MD on 11/12/17 Normal [facility] Comp Metabolic Panelon 11-07 Alanine aminotransferase (ALT) 17 U/L Normal 7-38 [facility] Comment on above: Performed By: #### L D6, CMP ####[facility] [address] [phone] Albumin 4.1 g/dL Normal 3.9-4.9 [facility] Comment on above: Performed By: #### L D6, CMP ####[facility] [phone] Alkaline phosphatase (ALP) 48 U/L Normal 32-117 [facility] Comment on above: Performed By: #### L D6, CMP ####[address] [address] [address] [phone] Anion gap 12 mmol/L Normal 9-18 [facility] Comment on above: Performed By: #### L D6, CMP ####[address] [address] [address] [phone] Aspartate aminotransferase (AST) 20 U/L Normal 13-35 [facility] Comment on above: Performed By: #### L D6, CMP ####[address] [address] [address] [phone] Bilirubin (total) 0.3 mg/dL Normal 0.2-1.3 [facility] Comment on above: Performed By: #### L D6, CMP ####[address] [address] [address] [phone] Calcium 9.0 mg/dL Normal 8.5-10.2 [facility] Comment on above: Performed By: #### L D6, CMP ####[facility] [phone] Chloride 100 mmol/L Normal 97-105 [facility] Comment on above: Performed By: #### L D6, CMP ####[facility] [address] [phone] CO2 27 mmol/L Normal 22-30 [facility] Comment on above: Performed By: #### L D6, CMP ####[facility], [place] [phone] Creatinine 0.62 mg/dL Normal 0.58-0.96 [facility] Comment on above: Performed By: #### L D6, CMP ####[facility] [place], [place] [phone] eGFR (non-black) mL/min/{1.73_m2} Normal [facility] Comment on above: Result Comment: eGFR [...] GFR. Performed By: #### L D6, CMP ####[facility] [place], [place] [phone] Glucose mass conc 92 mg/dL Normal 74-99 [facility] Comment on above: Result Comment: The [place] Diabetes Association (ADA) provides guidance for cutoff [...] Standards of Medical Care in Diabetes 2016, [place] [employer]. Diabetes Care. 2016.39(Suppl 1). Performed By: #### L D6, CMP ####[facility] [place], [place] [phone] Potassium molar conc 4.4 mmol/L Normal 3.7-5.1 [facility] Comment on above: Performed By: #### L D6, CMP ####[facility] [place], [place] [phone] Protein 6.4 g/dL Normal 6.3-8.0 [facility] Comment on above: Performed By: #### L D6, CMP ####[address] [place], [place] [phone] Sodium 139 mmol/L Normal 136-144 [facility] Comment on above: Performed By: #### L D6, CMP ####[facility] [place], [place] [phone] Urea nitrogen 15 mg/dL Normal 7-21 [facility] Comment on above: Performed By: #### L D6, CMP ####[address] [place], [place] [phone] LDon 11-07-2017 LD 166 U/L Normal 135-214 [facility] Comment on above: Performed By: #### L D6, CMP ####[address] [place], [place] [phone] PROGRESSon 11-07-2017 PROGRESS HNO ID: [id number] thor: Wayne Malave: (none)Author Type: PhysicianType: Progress [...] STRESS FORMULA ORAL) Take by mouth.Green Tea Penfield Extract (GREEN TEA) cap Take by mouth.DIPHENHYDRAMINE [...] lb 12.8 oz) SpO2 100% BMI 29.79 kg/i1AXVRHPJE EXAMINATIONGeneral: Alert and oriented, no distress, pleasant [...] orother abnormality developsAlfred Carolin Paula MD Normal [facility] Remote CBCDIF (for [facility] use o nly)on 11-07-2017 Abs Baso 0.03 k/uL Normal 0.00-0.10 [facility] Abs Cataño 0.53 k/uL Normal 0.00-0.86 [facility] Abs Neut 3.83 k/uL Normal 1.45-7.50 [facility] Basophils/100 WBC Auto (Bld) 0.5 % Normal [facility] Eosinophils 0.31 10*3/uL Normal 0.00-0.45 [facility] Eosinophils/100 leukocytes 5.1 % Normal [facility] Erythrocyte distribution width Auto Ratio (RBC) 13.4 % Normal 11.5-15.0 [facility] Erythrocytes (RBC) 4.11 10*6/uL Normal 3.90-5.20 [facility] Hematocrit (HCT) 36.2 % Normal 36.0-46.0 [facility] Hemoglobin mass conc (Bld) 12.2 g/dL Normal 11.5-15.5 [facility] Lymphocytes 1.42 10*3/uL Normal 1.00-4.00 [facility] Lymphocytes/100 leukocytes 23.2 % Normal [facility] MCH 29.7 pG Normal 26.0-34.0 [facility] MCHC mass conc (RBC) 33.7 g/dL Normal 30.5-36.0 [facility] MCV 88.1 fL Normal 80.0-100.0 [facility] Monocytes/100 leukocytes 8.7 % Normal [facility] Neutrophils/100 WBC Auto (Bld) 62.5 % Normal [facility] Platelet mean volume (PMV) 10.4 fL Normal 9.0-12.7 [facility] Platelets 211 10*3/uL Normal 150-400 [facility] WBC (Leukocytes) 6.12 10*3/uL Normal 3.70-11.00 [facility] Vital Signs Date Time Vital Sign Value Performing Clinician Facility 01-26-2025 13:16-0400 Body height 144.78 cm Aisha Ragland PA-C Work Phone: [facility] 01-26-2025 13:16-0400 Body mass index (BMI) [Ratio] 30 kg/m2 Aisha Ragland PA-C Work Phone: [facility] 01-26-2025 13:16-0400 Body weight 63 kg Aisha Ragland PA-C Work Phone: [facility] 01-13-2025 15:11-0400 Body height 147.3 cm Aisha Ragland PA Work Phone: [facility] 01-13-2025 15:11-0400 Body mass index (BMI) [Ratio] 25.79 kg/m2 Aisha Ragland PA Work Phone: [facility] 01-13-2025 15:11-0400 Body temperature 98.91 [degF] Aisha Ragland PA Work Phone: [facility] 01-13-2025 15:11-0400 Body weight 55.97 kg Aisha Ragland PA Work Phone: [facility] 01-13-2025 15:11-0400 Diastolic blood pressure 84 mm[Hg] Aisha Ragland PA Work Phone: [facility] 01-13-2025 15:11-0400 Heart rate 69 /min Aisha Ragland PA Work Phone: [facility] 01-13-2025 15:11-0400 SaO2% (BldA) [Mass fraction] 96 % Aisha Ragland PA Work Phone: [facility] 01-13-2025 15:11-0400 Systolic blood pressure 126 mm[Hg] Aisha Ragland PA Work Phone: [facility] 12-21-2024 11:50-0400 Body height 144.78 cm Aisha Ragland PA-C Work Phone: [facility] 12-21-2024 11:50-0400 Body mass index (BMI) [Ratio] 30.2 kg/m2 Aisha Meagan PA-C Work Phone: [facility] 12-21-2024 11:50-0400 Body temperature 98.2 [degF] Aisha Aroramers PA-C Work Phone: [facility] 12-21-2024 11:50-0400 Body weight 63.5 kg Aisha Ragland PA-C Work Phone: [facility] 12-21-2024 11:50-0400 Diastolic blood pressure 75 mm[Hg] Aisha Aroramers PA-C Work Phone: [facility] 12-21-2024 11:50-0400 Heart rate 61 /min Aisha Ragland PA-C Work Phone: [facility] 12-21-2024 11:50-0400 Respiratory rate 18 /min iAsha Ragland PA-C Work Phone: [facility] 12-21-2024 11:50-0400 SaO2% (BldA) [Mass fraction] 95 % Aisha Ragland PA-C Work Phone: [facility] 12-21-2024 11:50-0400 Systolic blood pressure 134 mm[Hg] Aisha Aroramers PA-C Work Phone: [facility] 10-27-2024 16:00-0400 Body height 147.3 cm Tabitha Valentino DPM Work Phone: [facility] 10-27-2024 16:00-0400 Body mass index (BMI) [Ratio] 26.96 kg/m2 Christnormaer Bohach DPM Work Phone: [facility] 10-27-2024 16:00-0400 Body weight 58.51 kg Christnormaer Bohach DPM Work Phone: [facility] 10-27-2024 16:00-0400 Diastolic blood pressure 59 mm[Hg] Matter Bohach DPM Work Phone: [facility] 10-27-2024 16:00-0400 Heart rate 69 /min Christopher Bohach DPM Work Phone: [facility] 10-27-2024 16:00-0400 Respiratory rate 18 /min Tabitha Bohach DPM Work Phone: [facility] 10-27-2024 16:00-0400 Systolic blood pressure 126 mm[Hg] Tabitha Jenkinsach DPM Work Phone: [facility] 10-14-2024 15:48-0400 Body height 147.3 cm Aisha Ragland PA Work Phone: [facility] 10-14-2024 15:48-0400 Body mass index (BMI) [Ratio] 26.96 kg/m2 Aisha Ragland PA Work Phone: [facility] 10-14-2024 15:48-0400 Body temperature 98.91 [degF] Aisha Ragland PA Work Phone: [facility] 10-14-2024 15:48-0400 Body weight 58.51 kg Aisha Ragland PA Work Phone: [facility] 10-14-2024 15:48-0400 Diastolic blood pressure 72 mm[Hg] Aisha Ragland PA Work Phone: [facility] 10-14-2024 15:48-0400 Heart rate 68 /min Aisha Ragland PA Work Phone: [facility] 10-14-2024 15:48-0400 SaO2% (BldA) [Mass fraction] 98 % Aisha Ragland PA Work Phone: [facility] 10-14-2024 15:48-0400 Systolic blood pressure 118 mm[Hg] Aisha Ragland PA Work Phone: [facility] 09-11-2024 11:19-0500 Body temperature 98.5 [degF] Aisha Ragland PA-C Work Phone: [facility] 09-11-2024 11:19-0500 Diastolic blood pressure 77 mm[Hg] Aisha Ragland PA-C Work Phone: [facility] 09-11-2024 11:19-0500 Heart rate 74 /min Aisha Ragland PA-C Work Phone: [facility] 09-11-2024 11:19-0500 Respiratory rate 18 /min Aisha Ragland PA-C Work Phone: [facility] 09-11-2024 11:19-0500 SaO2% (BldA) [Mass fraction] 97 % Aisha Ragland PA-C Work Phone: [facility] 09-11-2024 11:19-0500 Systolic blood pressure 127 mm[Hg] Aisha Ragland PA-C Work Phone: [facility] 09-11-2024 04:11-0500 Body weight 61.1 kg Aisha Ragland PA-C Work Phone: [facility] 09-09-2024 11:05-0500 Inhaled oxygen flow rate 1 L/min Aisha Ragland PA-C Work Phone: [facility] 09-09-2024 06:19-0500 Body height 144.78 cm Aisha Ragland PA-C Work Phone: [facility] 08-21-2024 15:16-0500 Body height 147.3 cm Aisha Ragland PA Work Phone: [facility] 08-21-2024 15:16-0500 Body mass index (BMI) [Ratio] 26.96 kg/m2 Aisha Ragland PA Work Phone: [facility] 08-21-2024 15:16-0500 Body temperature 98.4 [degF] Aisha Ragland PA Work Phone: [facility] 08-21-2024 15:16-0500 Body weight 58.51 kg Aisha Ragland PA Work Phone: [facility] 08-21-2024 15:16-0500 Diastolic blood pressure 84 mm[Hg] Aisha Ragland PA Work Phone: [facility] 08-21-2024 15:16-0500 Heart rate 67 /min Aisha Ragland PA Work Phone: [facility] 08-21-2024 15:16-0500 SaO2% (BldA) [Mass fraction] 98 % Aisha Ragland PA Work Phone: [facility] 08-21-2024 15:16-0500 Systolic blood pressure 130 mm[Hg] Aisha Ragland PA Work Phone: [facility] 08-11-2024 16:33-0500 Body height 147.3 cm Tabitha Valentino DPM Work Phone: [facility] 08-11-2024 16:33-0500 Body mass index (BMI) [Ratio] 26.96 kg/m2 Tabitha Jenkinsach DPM Work Phone: [facility] 08-11-2024 16:33-0500 Body weight 58.51 kg Tabitha Valentino DPM Work Phone: [facility] 08-11-2024 16:33-0500 Diastolic blood pressure 83 mm[Hg] Tabitha Valentino DPM Work Phone: [facility] 08-11-2024 16:33-0500 Heart rate 63 /min Emanuelnormageorgi Valentino DPM Work Phone: [facility] 08-11-2024 16:33-0500 Systolic blood pressure 144 mm[Hg] Tabitha Valentino DPM Work Phone: [facility] 07-23-2024 15:13-0500 Body height 144.78 cm [facility] 07-23-2024 15:13-0500 Body mass index (BMI) [Ratio] 27 kg/m2 [facility] 07-23-2024 15:13-0500 Body weight 56.69 kg [facility] 07-07-2024 14:46-0500 Body height 147.3 cm Aisha Ragland PA Work Phone: [facility] 07-07-2024 14:46-0500 Body temperature 98.4 [degF] Aisha Ragland PA Work Phone: [facility] 07-07-2024 14:46-0500 Diastolic blood pressure 70 mm[Hg] Aisha Ragland PA Work Phone: [facility] 07-07-2024 14:46-0500 Heart rate 68 /min Aisha Ragland PA Work Phone: [facility] 07-07-2024 14:46-0500 SaO2% (BldA) [Mass fraction] 98 % Aisha Ragland PA Work Phone: [facility] 07-07-2024 14:46-0500 Systolic blood pressure 118 mm[Hg] Aisha Ragland PA Work Phone: [facility] 06-07-2024 14:01-0500 Body height 144.78 cm [facility] 06-07-2024 14:01-0500 Body mass index (BMI) [Ratio] 25.7 kg/m2 [facility] 06-07-2024 14:01-0500 Body temperature 100.5 [degF] [facility] 06-07-2024 14:01-0500 Body weight 53.97 kg [facility] 06-07-2024 14:01-0500 Diastolic blood pressure 73 mm[Hg] [facility] 06-07-2024 14:01-0500 Heart rate 74 /min [facility] 06-07-2024 14:01-0500 Respiratory rate 16 /min [facility] 06-07-2024 14:01-0500 SaO2% (BldA) [Mass fraction] 96 % [facility] 06-07-2024 14:01-0500 Systolic blood pressure 131 mm[Hg] [facility] 06-02-2024 15:46-0500 Body height 147.3 cm Christopher Bohach DPM Work Phone: [facility] 06-02-2024 15:46-0500 Body mass index (BMI) [Ratio] 26.96 kg/m2 Christopher Bohach DPM Work Phone: [facility] 06-02-2024 15:46-0500 Body weight 58.51 kg Christopher Bohach DPM Work Phone: [facility] 06-02-2024 15:46-0500 Diastolic blood pressure 65 mm[Hg] Christopher Bohach DPM Work Phone: [facility] 06-02-2024 15:46-0500 Heart rate 65 /min Christopher Bohach DPM Work Phone: [facility] 06-02-2024 15:46-0500 Systolic blood pressure 147 mm[Hg] Christopher Bohach DPM Work Phone: [facility] 04-24-2024 15:17-0400 Body height 147.3 cm Aisha PEREZ Work Phone: [facility] 04-24-2024 15:17-0400 Body mass index (BMI) [Ratio] 27.15 kg/m2 Aisha PEREZ Work Phone: [facility] 04-24-2024 15:17-0400 Body temperature 98.4 [degF] Aisha Ragland PA Work Phone: [facility] 04-24-2024 15:17-0400 Body weight 58.92 kg Aisha Ragland PA Work Phone: [facility] 04-24-2024 15:17-0400 Heart rate 63 /min Aisha Ragland PA Work Phone: [facility] 04-24-2024 15:17-0400 SaO2% (BldA) [Mass fraction] 95 % Aisha Ragland PA Work Phone: [facility] 03-24-2024 16:17-0400 Body height 147.3 cm Christopher Bohach DPM Work Phone: [facility] 03-24-2024 16:17-0400 Body mass index (BMI) [Ratio] 25.71 kg/m2 Christopher Bohach DPM Work Phone: [facility] 03-24-2024 16:17-0400 Body weight 55.79 kg Christopher Bohach DPM Work Phone: [facility] 03-24-2024 16:17-0400 Diastolic blood pressure 67 mm[Hg] Christopher Bohach DPM Work Phone: [facility] 03-24-2024 16:17-0400 Heart rate 54 /min Christopher Bohach DPM Work Phone: [facility] 03-24-2024 16:17-0400 Systolic blood pressure 139 mm[Hg] Christopher Bohach DPM Work Phone: [facility] 03-10-2024 18:00-0400 Diastolic blood pressure 72 mm[Hg] PA-C Aisha Ragland Work Phone: [facility] 03-10-2024 18:00-0400 Heart rate 74 /min PA-C Aisha Aroramers Work Phone: [facility] 03-10-2024 18:00-0400 Respiratory rate 18 /min PA-C Aisha Ragland Work Phone: [facility] 03-10-2024 18:00-0400 SaO2% (BldA) [Mass fraction] 98 % PA-C Aisha Ragland Work Phone: [facility] 03-10-2024 18:00-0400 Systolic blood pressure 138 mm[Hg] PA-C Aisha Ragland Work Phone: [facility] 03-10-2024 15:27-0400 Body height 144.78 cm PA-C Aisha Ragland Work Phone: [facility] 03-10-2024 15:27-0400 Body temperature 98.5 [degF] PA-C Aisha Ragland Work Phone: [facility] 03-10-2024 15:27-0400 Body weight 58.05 kg PA-C Aisha Ragland Work Phone: [facility] 10-17-2023 10:18-0400 Diastolic blood pressure 64 mm[Hg] Kaci Morton [facility] 10-17-2023 10:18-0400 Heart rate 66 /min Kaci Morton [facility] 10-17-2023 10:18-0400 Mean blood pressure 80 mm[Hg] Kaciglenys Morton [facility] 10-17-2023 10:18-0400 Respiratory rate 14 /min Kaci Morton [facility] 10-17-2023 10:18-0400 Systolic blood pressure 112 mm[Hg] Kaciglenys Morton [facility] 10-01-2023 06:33-0400 Heart rate 78 /min Dillon Bryant [facility] 10-01-2023 06:33-0400 Respiratory rate 16 /min Dillon Bryant [facility] 10-01-2023 06:33-0400 SaO2% (BldA) [Mass fraction] 98 % Dillon Bryant [facility] 10-01-2023 05:23-0400 Body temperature 97.7 [degF] Dillon Bryant [facility] 10-01-2023 05:23-0400 Diastolic blood pressure 75 mm[Hg] Dillon Bryant [facility] 10-01-2023 05:23-0400 Heart rate 74 /min Dillon Bryant [facility] 10-01-2023 05:23-0400 Respiratory rate 16 /min Dillon Bryatn [facility] 10-01-2023 05:23-0400 SaO2% (BldA) [Mass fraction] 99 % Dillon Bryant [facility] 10-01-2023 05:23-0400 Systolic blood pressure 139 mm[Hg] Dillon Bryant [facility] 08-14-2023 16:13-0500 Body height 152.4 cm Aisha Ragland PA Work Phone: [facility] 08-14-2023 16:13-0500 Body mass index (BMI) [Ratio] 25.82 kg/m2 Aisha Ragland PA Work Phone: [facility] 08-14-2023 16:13-0500 Body temperature 99.1 [degF] Aisha Ragland PA Work Phone: [facility] 08-14-2023 16:13-0500 Body weight 59.97 kg Aisha Ragland PA Work Phone: [facility] 08-14-2023 16:13-0500 Diastolic blood pressure 80 mm[Hg] Aisha Meagan PA Work Phone: [facility] 08-14-2023 16:13-0500 Heart rate 64 /min Aisha Meagan PA Work Phone: [facility] 08-14-2023 16:13-0500 SaO2% (BldA) [Mass fraction] 97 % Aisha Meagan PA Work Phone: [facility] 08-14-2023 16:13-0500 Systolic blood pressure 122 mm[Hg] Aisha Meagan PA Work Phone: [facility] 07-15-2023 14:58-0500 Body height 144.78 cm PA-C Aisha Meagan Work Phone: [facility] 07-15-2023 14:58-0500 Body temperature 98.5 [degF] PA-C Aisha Meagan Work Phone: [facility] 07-15-2023 14:58-0500 Body weight 56.7 kg PA-C Aisha Meagan Work Phone: [facility] 07-15-2023 14:58-0500 Diastolic blood pressure 62 mm[Hg] PA-C Aisha Meagan Work Phone: [facility] 07-15-2023 14:58-0500 Heart rate 63 /min PA-C Aisha Meagan Work Phone: [facility] 07-15-2023 14:58-0500 Respiratory rate 18 /min PA-C Aisha Meagan Work Phone: [facility] 07-15-2023 14:58-0500 SaO2% (BldA) [Mass fraction] 98 % PA-C Aisha Meagan Work Phone: [facility] 07-15-2023 14:58-0500 Systolic blood pressure 132 mm[Hg] PA-C Aisha Meagan Work Phone: [place] [address]-06-2023 14:45-0500 Body height 152.4 cm Lisa Castillo Other [employer] Other 03-21-2023 13:30-0400 Body height 152.4 cm João Brittany Other [employer] Other 03-21-2023 13:30-0400 Body mass index (BMI) [Ratio] 24.41 kg/m2 João Brittany Other [employer] Other 03-21-2023 13:30-0400 Body weight 56.7 kg João Brittany Other [employer] Other 09-13-2022 13:45-0500 Body height 152.4 cm João Brittany Other [employer] Other 09-13-2022 13:45-0500 Body mass index (BMI) [Ratio] 24.02 kg/m2 João Brittany Other [employer] Other 09-13-2022 13:45-0500 Body weight 55.79 kg João Brittany Other [employer] Other 10-05-2021 13:00-0400 Body height 152.4 cm João Brittany Other [employer] Other 10-05-2021 13:00-0400 Body mass index (BMI) [Ratio] 23.43 kg/m2 João Brittany Other [employer] Other 10-05-2021 13:00-0400 Body weight 54.43 kg João Brittany Other [employer] Other Encounters Encounter Date Encounter Type Care Provider Facility Start: 03-23-2025 ambulatory João Soto Facilit y:[facility] Start: 03-19-2025 End: 03-19-2025 Isabel Hannah MD Work Phone: [facility] Comment on above: Essential hypertensi on Start: 03-18-2025 Registered Recurring João Soto DO -Physical [facility] [place] Start: 03-18-2025 End: 03-18-2025 ambulatory Aisha Ragland PA-C Work Phone: [facility] Work Phone: Start: 03-18-2025 End: 03-18-2025 Patient encounter procedure João Soto DO -[facility] Work Phone: Start: 03-18-2025 End: 03-18-2025 Patient encounter procedure João Soto DO -[facility] Start: 03-18-2025 End: 03-18-2025 ambulatory Aisha Ragland PA-C Work Phone: [facility] Work Phone: Start: 03-13-2025 Registered Recurring João Soto DO -[facility] [place] Start: 03-04-2025 End: 03-04-2025 ambulatory Aisha Ragland PA-C Work Phone: [facility] Work Phone: Start: 03-04-2025 End: 03-04-2025 Departed Referred Alvin Adams DO -[facility] Start: 03-04-2025 Registered Recurring João Soto DO -Physical [facility] [place] Start: 03-04-2025 End: 03-04-2025 Clinisync Result Encounter Generic External Data Provider [facility] External Department Unsolicited Start: 03-04-2025 End: 03-04-2025 Clinisync Result Encounter Generic External Data Provider [facility] External Department Unsolicited Start: 02-27-2025 End: 02-27-2025 Isabel Azar MA [facility] Comment on above: Chronic pain disorde r Start: 02-06-2025 End: 02-08-2025 Isabel Hannah MD Work Phone: [facility] Comment on above: Essential hypertensi on Start: 01-26-2025 End: 01-26-2025 ambulatory Aisha PEREZ-C Work Phone: [facility] Work Phone: Start: 01-26-2025 End: 01-26-2025 Patient encounter procedure João Vazquez [facility] Work Phone: Start: 01-23-2025 Registered Recurring João Vazquez [facility] [place] Start: 01-13-2025 End: 01-13-2025 ambulatory AISHA RAGLAND Not Available Start: 01-13-2025 End: 01-13-2025 Office outpatient visit 25 minutes Aisha Ragland PA Work Phone: [facility] Comment on above: Bronchitis (Primary Dx); Controlled type 2 diabetes mellitus with diabetic polyneuropathy, without long-term current use of insulin (HCC); GERD without esophagitis; Anemia due to folic acid deficiency, unspecified deficiency type; Breast screening Start: 01-13-2025 End: 01-13-2025 Bamboo flowsheet Yris Donnelly ASSOCIATE PROFESSOR OF SOCIOLOGY Work Phone: [facility] Start: 01-13-2025 End: 01-13-2025 Bamboo flowsheet Yris Donnelly ASSOCIATE PROFESSOR OF SOCIOLOGY Work Phone: [facility] Start: 12-22-2024 Registered Recurring Aisha brown PA-C Work Phone: [facility]-Physical [facility] [place] Start: 12-21-2024 End: 12-23-2024 External Result Encounter Aamnda Roberts ASSOCIATE PROFESSOR OF SOCIOLOGY Work Phone: [facility] External Department Unsolicited Start: 12-21-2024 End: 12-23-2024 External Result Encounter Amanda Maierburg ASSOCIATE PROFESSOR OF SOCIOLOGY Work Phone: [facility] External Department Unsolicited Start: 12-21-2024 End: 12-21-2024 Departed Referred Aisha Ragland PA-C Work Phone: [facility] [place] Work Phone: Start: 12-21-2024 End: 12-21-2024 ambulatory Aisha Ragland PA-C Work Phone: [facility] Work Phone: Start: 12-21-2024 End: 12-21-2024 Patient encounter procedure Aisha Ragland PA-C Work Phone: [facility] [place] Work Phone: Start: 12-19-2024 Registered Recurring Aisha brown PA-C Work Phone: [facility]-Physical Therapy [place] Start: 12-01-2024 End: 12-01-2024 Patient encounter procedure Aisha Ragland PA-C Work Phone: [facility] Work Phone: Start: 11-05-2024 End: [...] Clinisync Result Encounter Aisha PEREZ Work Phone: [facility] External Department Unsolicited Start: 10-24-2024 End: 10-25-2024 Refill Aisha PEREZ Work Phone: [facility] Comment on above: Controlled type 2 di abetes mellitus with diabetic polyneuropathy, without long-term current use of insulin (CMS/HCC) Start: 10-20-2024 End: 10-20-2024 Patient encounter procedure Aisha Ragland PA-C Work Phone: [facility] Work Phone: Start: 10-14-2024 End: 10-14-2024 Patient encounter procedure Aisha PEREZ Work Phone: [facility] Comment on above: Medicare annual well ness visit, subsequent (Primary Dx); Dysuria; Essential hypertension (CMS/HCC); Chronic pain of right knee; Hospital discharge follow-up Start: 10-14-2024 End: 10-14-2024 ambulatory AISHA RAGLAND Not Available Start: 09-22-2024 End: 09-22-2024 ambulatory Aisha Ragland PA-C Work Phone: [facility] Work Phone: Start: 09-22-2024 End: 09-22-2024 Patient encounter procedure Aisha Ragland PA-C Work Phone: [facility] Work Phone: Start: 09-09-2024 Non-patient / Non-visit Marlene Ragland PA-C Work Phone: [facility] Work Phone: Start: 09-09-2024 End: 09-11-2024 Admission to same day surgery center Aisha Ragland PA-C Work Phone: [facility] [place] Start: 09-09-2024 End: 09-11-2024 ambulatory Aisha Ragland PA-C Work Phone: [facility] Work Phone: Start: 09-03-2024 End: 09-03-2024 ambulatory Aisha Ragland PA-C Work Phone: [facility] Work Phone: Start: 09-03-2024 End: 09-03-2024 Encounter for other preprocedural examination Aisha Ragland PA-C Work Phone: [facility] Start: 09-03-2024 End: 09-03-2024 Patient encounter procedure Aisha PEREZ-C Work Phone: [facility] Work Phone: Start: 09-03-2024 End: 09-03-2024 Patient encounter procedure Aisha Ragland PA-C Work Phone: [facility] Start: 09-03-2024 End: 09-03-2024 ambulatory Aisha Ragland PA-C Work Phone: [facility] Work Phone: Start: 09-01-2024 End: 09-01-2024 Discharged Recurring Aisha Ragland PA-C Work Phone: [facility] [place] Start: 09-01-2024 Registered Recurring Aisha brown PA-C Work Phone: [facility] [place] Start: 09-01-2024 End: 09-01-2024 ambulatory Aisha Ragland PA-C Work Phone: [facility] Work Phone: Start: 09-01-2024 Encounter for other preprocedural examination João Soto [facility] Start: 08-26-2024 End: 08-26-2024 Patient encounter procedure Aisha Ragland PA-C Work Phone: [facility]-Pre-Surgical Testing Work Phone: Start: 08-26-2024 Encounter for preprocedural laboratory examination João Coronelley [facility] Start: 08-26-2024 End: 08-26-2024 Refill Erin Azar MA [facility] Comment on above: Chronic pain disorde r Start: 08-25-2024 End: 08-28-2024 Refill Aisha PEREZ Work Phone: [facility] Comment on above: Chronic pain disorde r Start: 08-22-2024 End: 08-22-2024 Patient encounter procedure Aisha Ragland PA-C Work Phone: [facility]-Pre-Surgical Testing Work Phone: Start: 08-22-2024 End: 08-22-2024 ambulatory Aisha Ragland PA-C Work Phone: [facility] Work Phone: Start: 08-21-2024 End: 08-21-2024 Office outpatient visit 25 minutes Aisha PEREZ Work Phone: [facility] Comment on above: Chronic pain of righ t knee (Primary Dx); Controlled type 2 diabetes mellitus with diabetic polyneuropathy, without long-term current use of insulin ([facility]); Acute non-recurrent frontal sinusitis; Anxiety; Preop examination Start: 08-21-2024 End: 08-21-2024 ambulatory AISHA RAGLAND Not Available Start: 08-21-2024 End: 08-21-2024 Bamboo flowsheet Aisha Ragland PA Work Phone: [facility] Start: 08-21-2024 End: 08-21-2024 Bamboo flowsheet Aisha Ragland PA Work Phone: [facility] Start: 08-21-2024 End: 08-21-2024 Preprocedural examination done Aisha PEREZ Work Phone: [facility] Start: 08-11-2024 End: 08-11-2024 ambulatory TABITHA VALENTINO Not Available Start: 08-11-2024 End: 08-11-2024 Patient encounter procedure Tabitha Valentino DPM Work Phone: [facility] [facility] Comment on above: Diabetic polyneuropa thy associated with type 2 diabetes mellitus (CMS/[facility]) (Primary Dx); Onychomycosis Start: 08-11-2024 End: 08-11-2024 Bamboo flowsheet Tabitha Valentino DPM Work Phone: [facility] Start: 08-11-2024 End: 08-11-2024 Bamboo flowsheet Tabitha Valentino DPM Work Phone: [facility] [employer] [facility] Start: 07-23-2024 Patient encounter status [facility] Start: 07-23-2024 Preprocedural examination done Aisha Ragland PA-C Work Phone: [facility] Start: 07-23-2024 End: 07-23-2024 ambulatory [facility] Work Phone: Start: 07-23-2024 End: 07-23-2024 Encounter for other preprocedural examination [facility] Start: 07-23-2024 End: 07-23-2024 [facility] Work Phone: Start: 07-14-2024 End: 07-17-2024 Refill Aisha PEREZ Work Phone: [facility] Comment on above: Controlled type 2 di abetes mellitus with diabetic polyneuropathy, without long-term current use of insulin (CMS/HCC) Start: 07-07-2024 End: 07-07-2024 ambulatory AISHA RAGLAND Not Available Start: 07-07-2024 End: 07-07-2024 Office outpatient visit 25 minutes Aisha PEREZ Work Phone: [facility] Comment on above: Reactive depression (CMS/HCC) (Primary Dx); Raynaud's disease without gangrene; Osteoarthritis of multiple joints, unspecified osteoarthritis type; Chronic pain of right knee; Chronic pain disorder Start: 07-07-2024 End: 07-07-2024 Bamboo flowsheet Aisha PEREZ Work Phone: [facility] Start: 07-07-2024 End: 07-07-2024 Bamboo flowsheet Aisha Ragland PA Work Phone: [facility] Start: 06-25-2024 End: 06-26-2024 Refill Zuri Hannah MD Work Phone: [facility] Comment on above: Essential hypertensi on (CMS/HCC); Controlled type 2 diabetes mellitus with diabetic polyneuropathy, without long-term current use of insulin (CMS/HCC) Start: 06-17-2024 End: 06-17-2024 Refill Zuri Hannah MD Work Phone: [facility] Comment on above: GERD without esophag itis Start: 06-07-2024 End: 06-07-2024 Patient encounter procedure [facility] Work Phone: Start: 06-02-2024 End: 06-02-2024 ambulatory TABITHA VALENTINO Not Available Start: 06-02-2024 End: 06-02-2024 Patient encounter procedure Tabitha Valentino DPM Work Phone: [facility] Comment on above: Diabetic polyneuropa thy associated with type 2 diabetes mellitus (CMS/HCC) (Primary Dx); Onychomycosis Chronic pain disorde r Start: 05-24-2024 End: 05-26-2024 Refill Aisha PEREZ Work Phone: [facility] Comment on above: Reactive depression (CMS/HCC) Start: 04-24-2024 End: 04-24-2024 Office outpatient visit 25 minutes Aisha PEREZ Work Phone: [facility] Comment on above: Need for immunizatio n against influenza; Controlled type 2 diabetes mellitus with diabetic polyneuropathy, without long-term current use of insulin ([facility]); Chronic pain disorder Start: 04-24-2024 End: 04-24-2024 ambulatory AISHA RAGLAND Not Available Start: 04-23-2024 End: 04-23-2024 ambulatory ISELA Ragland Work Phone: [facility] Work Phone: Start: 04-23-2024 End: 04-23-2024 Patient encounter procedure ISELA Ragland Work Phone: [facility] Work Phone: Start: 04-22-2024 End: 04-23-2024 Isabel Hannah MD Work Phone: [facility] Comment on above: GERD without esophag itis Start: 03-24-2024 End: 03-24-2024 Patient encounter procedure Tabitha Valentino DPM Work Phone: [facility] Comment on above: Diabetic polyneuropa thy associated with type 2 diabetes mellitus ([facility]) (Primary Dx); Onychomycosis Start: 03-24-2024 End: 03-24-2024 ambulatory TABITHA VALENTINO Not Available Start: 03-24-2024 End: 03-24-2024 Bamboo flowsheet Tabitha Valentino DPM Work Phone: [facility] Start: 03-24-2024 End: 03-24-2024 Bamboo flowsheet Tabitha Valentino DPM Work Phone: [facility] Start: 03-13-2024 End: 03-13-2024 ambulatory AISHA RAGLAND Not Available Start: 03-13-2024 End: 03-13-2024 Office outpatient visit 15 minutes Aisha PEREZ Work Phone: [facility] Comment on above: Reactive depression (CMS/HCC) (Primary Dx); Anxiety Start: 03-10-2024 End: 03-10-2024 Emergency department patient visit ISELA Ragland Work Phone: [facility]-Emergency Room Work Phone: Start: 01-28-2024 End: 01-28-2024 ambulatory AISHA RAGLAND Not Available Start: 12-19-2023 End: 12-19-2023 ambulatory [facility] Work Phone: Start: 12-19-2023 End: 12-19-2023 Patient encounter procedure [facility] Work Phone: Start: 11-03-2023 Patient encounter procedure Tabitha JEFF Work Phone: [facility] Start: 10-17-2023 End: 10-18-2023 ambulatory Kaci Morton Facility:[facility] Start: 10-17-2023 End: 10-18-2023 ambulatory Aisha RAGLAND Facility:[facility] Start: 10-17-2023 End: 10-17-2023 Patient encounter procedure Kaciglenys Morton [facility] Start: 10-17-2023 End: 10-17-2023 Pain Management Kaciglenys Morton [facility] Start: 10-01-2023 End: 10-01-2023 Emergency department patient visit Dillon Hurtado Facility:[facility] Start: 10-01-2023 End: 10-01-2023 Emergency department patient visit Dillon Hurtado [facility] Start: 08-14-2023 End: 08-14-2023 Office outpatient visit 25 minutes Aisha PEREZ Work Phone: [facility] Comment on above: Chronic pain disorde r (Primary Dx); Controlled type 2 diabetes mellitus with diabetic polyneuropathy, without long-term current use of insulin ([facility]) Start: 07-15-2023 End: 07-15-2023 Emergency department patient visit IESLA Ragland Work Phone: [facility] Work Phone: Start: 06-26-2023 End: 06-26-2023 ambulatory João Soto Other [facility] Other Start: 06-26-2023 Telephone encounter João URIBE [facility] Start: 06-20-2023 End: 06-20-2023 ambulatory Lisa Castillo Other [employer] [employer] Other Start: 06-20-2023 Office outpatient vi sit 25 minutes Lisa Castillo [facility] Start: 06-11-2023 End: 06-11-2023 ambulatory João Soto Other [employer] [employer] Other Start: 06-11-2023 Telephone encounter João URIBE [facility] Start: 03-21-2023 End: 03-21-2023 ambulatory João Soto Other [facility] [employer] Other Start: 03-21-2023 Office outpatient vi sit 25 minutes João Soto [facility] Start: 02-12-2023 End: 02-12-2023 ambulatory João Soto Other [employer] [employer] Other Start: 02-12-2023 Telephone encounter João URIBE [facility] Start: 09-13-2022 Office outpatient vi sit 15 minutes João Soto [facility] Start: 09-13-2022 End: 09-13-2022 ambulatory ANA-Ash Ragland Work Phone: [facility] Work Phone: Start: 09-13-2022 End: 09-13-2022 Patient encounter procedure ANA-Ash Ragland Work Phone: [facility] Start: 06-14-2022 End: 06-14-2022 ambulatory João Soto Other [employer] Other Start: 06-14-2022 Patient encounter procedure João Soto [facility] Start: 06-12-2022 End: 06-12-2022 ambulatory Vicky Titus Other [facility] [employer] Other Start: 06-12-2022 Telephone encounter Vickyjerry Titus [facility] Start: 02-23-2022 End: 02-24-2022 ambulatory AISHA RAGLAND Facility:[facility] Start: 10-05-2021 End: 10-05-2021 ambulatory João Soto Other [employer] Other Start: 10-05-2021 Office outpatient ne w 30 minutes João Soto [facility] Start: 06-29-2021 End: 06-29-2021 ambulatory Vickyjerry Titus Other [employer] Other Start: 06-29-2021 Office outpatient vi sit 25 minutes Vicky Calvey [facility] Start: 04-06-2021 Office outpatient vi sit 15 minutes Vicky Candidaey [facility] Start: 03-28-2021 End: 03-29-2021 ambulatory AISHA RAGLAND Facility:[facility] Start: 11-07-2017 End: 11-12-2017 Ambulatory WAYNE PAULA [facility] Start: 02-20-2017 End: 02-21-2017 Ambulatory DEFAULT PHYSICIAN Facility:[facility] Procedures Date Procedure Procedure Detail Performing Clinician Start: 03-18-2025 X-ray of right knee, three views Aisha Ragland PA-C Work Phone: Start: 03-04-2025 URINE CULTURE - [facility] Rob woodall External Data Provider Start: 03-04-2025 Urine culture Aisha PEREZ-C Work Phone: Start: 01-13-2025 Complete blood count with white cell differential, automated Aisha PEREZ Work Phone: Start: 01-13-2025 End: 01-13-2025 Comprehensive metabolic panel Aisha PEREZ Work Phone: Start: 12-21-2024 Urine culture Aisha PEREZ-C Work Phone: Start: 12-21-2024 Culture bacterial quanttative colony count urine Amanda Taylor Roberts ASSOCIATE PROFESSOR OF SOCIOLOGY Work Phone: Start: 10-25-2024 ALL CBC WITH AUTO DIFF Aisha PEREZ Work Phone: Start: 09-09-2024 Total replacement of right knee joint Aisha PEREZ-C Work Phone: Start: 09-09-2024 X-ray of right knee, two views Aisha PEREZ-Ash Work Phone: Start: 09-03-2024 Plain X-ray of bilat eral femurs Aisha PEREZ-C Work Phone: Start: 09-03-2024 Plain X-ray of bilat eral tibia and bilateral fibula Aisha PEREZ-C Work Phone: Start: 09-03-2024 X-ray of cervical spine Aisha PEREZ-C Work Phone: Start: 08-21-2024 Hemoglobin glycosylated a1c Aisha PEREZ Work Phone: Start: 04-24-2024 Hemoglobin glycosylated a1c Aisha PEREZ Work Phone: Start: 04-23-2024 Plain X-ray of right shoulder PA-C Aisha Meagan Work Phone: Start: 04-23-2024 X-ray of both [...] hip joint Dillon Hurtado Cholecystectomy Dillon Patelvishnu sona 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) Dillon Hurtado Tonsillectomy Dillon Hurtado Plan of Treatment Date Care Activity Detail Author Start: 10-14-2025 Medicare Annual Wellness (AWV) Medicare Annual Wellness (AWV) [facility] Start: 04-15-2025 Hemoglobin A1c measurement Diabetes: Hemoglobin A1C [facility] Start: 03-18-2025 X-ray of right knee, three views XR knee RT 3V - NOT FOR ER USE [facility] Start: 03-18-2025 XR Knee - right 3 Views [facility] Start: 03-16-2025 Influenza vaccination Influenza Vacc ine (#1) [facility] Start: 03-04-2025 Urine culture [facility] Start: 03-04-2025 Bacteria identified in Urine by Culture Urine Culture [facility] Start: 02-10-2025 End: 02-10-2025 Patient encounter procedure 02/10/2025 4:30 PM EDT Procedure Visit [facility] [address] [facility] [place] [phone] Tabitha Valentino, DPDuncan [address] [place] [facility] [place] [address] [facility] Start: 01-26-2025 End: 01-26-2025 Patient encounter procedure 01/26/2025 4:00 PM EDT Procedure Visit [facility] [address] [facility] [place] [address] Tabitha Valentino, DPDucnan [address] [place] [place] [address] [facility] Start: 01-13-2025 End: 01-13-2025 Patient encounter procedure 01/13/2025 3:20 PM EDT Office Visit [facility] [address] [place] [phone] Yris Donnelly NP [address] [place] [address] Arrived [facility] Comment on above: Arrived Start: 01-13-2025 End: 01-13-2026 DBT Breast - bilateral screening Bilateral screening mammogram with tomosynthesis Imaging Routine Breast screening Expected: 01/13/2025, Expires: 01/13/2026 [facility] Work Phone: Comment on above: Expected: 01/13/2025 , Expires: 01/13/2026 Start: 01-06-2025 End: 01-06-2025 Patient encounter procedure 01/06/2025 2:40 PM EDT Office Visit [facility] [address] [place] [phone] Aisha Ragland PA [address] [place] [address] [facility] Start: 12-22-2024 [facility] Start: 12-21-2024 Bacteria identified in Urine by Culture [facility] Start: 12-16-2024 End: 12-16-2024 Patient encounter procedure 12/16/2024 3:30 PM EDT Office Visit [facility] [address] [place] [address] Aisha Ragland, PA [address] [place] [address] [facility] Start: 11-18-2024 Hemoglobin A1c measurement Diabetes: Hemoglobin A1C [facility] Start: 10-27-2024 End: 10-27-2024 Patient encounter procedure 10/27/2024 4:00 PM EDT Procedure Visit [facility] [address] [place] [phone] Tabitha Valentino, DPM [address] [place] [address] [facility] Start: 10-20-2024 End: 10-20-2024 Patient encounter procedure 10/20/2024 4:00 PM EDT Procedure Visit [facility] [address] [place] [phone] Tabitha Valentino, DPM [address] [place] [address] [facility] Start: 10-17-2024 Medicare Annual Wellness (AWV) Medicare Annual Wellness (AWV) [facility] Start: 10-17-2024 Urine screening for protein Diabetes: Urine Protein Screening [facility] Start: 09-09-2024 [facility] Start: 09-09-2024 Hospital admission [facility] Start: 09-03-2024 Plain X-ray of bilateral femurs XR femur BI [facility] Start: 09-03-2024 Plain X-ray of bilateral tibia and bilateral fibula XR tibia/fibula [facility] Start: 09-03-2024 X-ray of cervical spine XR cerv spine AP/LAT/FLX/EXT [facility] Start: 09-03-2024 XR Cervical spine 4 Views [facility] Start: 09-03-2024 XR Femur - bilateral Views [facility] Start: 09-03-2024 XR Tibia and Fibula - bilateral Views [facility] Start: 08-25-2024 End: 08-25-2024 Patient encounter procedure 08/25/2024 3:00 PM EST Office Visit [facility] [address] [place] [address] Aisha Ragland PA [address] [place] [address] [facility] Start: 08-21-2024 End: 08-21-2024 Patient encounter procedure 08/21/2024 3:00 PM EST Office Visit [facility] [address] [place] [phone] Aisha Ragland, PA [address] [place] [address] Arrived [facility] Comment on above: Arrived Start: 08-15-2024 Urine screening for protein Diabetes: Urine Protein Screening [facility] Start: 08-04-2024 End: 08-04-2024 Patient encounter procedure 08/04/2024 4:00 PM EST Procedure Visit [facility] [address] [place] [phone] Tabitha Valentino DPM [address] [place] [address] [facility] Start: 07-25-2024 Hemoglobin A1c measurement Diabetes: Hemoglobin A1C [facility] Start: 06-02-2024 End: 06-02-2024 Patient encounter procedure 06/02/2024 3:30 PM EST Procedure Visit [facility] [address] [place] [address] Tabitha Valentino DPM [address] [place] [address] [facility] Start: 05-26-2024 End: 05-26-2024 Patient encounter procedure 05/26/2024 3:45 PM EST Procedure Visit [facility] [address] [place] [address] Tabitha Valentino DPM [address] [place] [address] [facility] Start: 04-29-2024 Hemoglobin A1c measurement Diabetes: Hemoglobin A1C [facility] Start: 04-24-2024 End: 04-24-2024 Patient encounter procedure 04/24/2024 3:00 PM EDT Office Visit [facility] [address] [place] [phone] Aisha Ragland, PA [address] [place] [address] [facility] Start: 04-23-2024 Plain X-ray of right shoulder XR shoulder RT min 2V* [facility] Start: 04-23-2024 X-ray of both knees, three views XR knee BI 3V - NOT FOR ER USE [facility] Start: 04-23-2024 XR Knee - bilateral 3 Views [facility] Start: 04-23-2024 XR Shoulder - right Views [facility] Start: 03-24-2024 End: 03-24-2024 Patient encounter procedure 03/24/2024 4:15 PM EDT Procedure Visit [facility] [address] [place] [address] Tabitha Valentino DPM [address] [place] [address] Arrived [facility] Comment on above: Arrived Start: 03-16-2024 Influenza vaccination Influenza Vacc ine (#1) [facility] Start: 12-10-2023 Glaucoma screening Diabetes: R etinopathy Screening [facility] Start: 11-28-2023 Medicare Annual Wellness (AWV) Medicare Annual Wellness (AWV) [facility] Start: 11-13-2023 Hemoglobin A1c measurement Diabetes: Hemoglobin A1C [facility] Start: 09-28-2023 End: 09-28-2023 Patient encounter procedure 09/28/2023 2:00 PM EDT Procedure Visit [facility] [address] [place] [phone] Tabitha Valentino DPM [address] [place] [address] [facility] Patient Education [facility] Work Phone: Patient referral [facility] Work Phone: Urine culture [facility] URINE CULTURE - [facility] URINE CULTU RE - [facility] Lab Routine 03/04/2025 8:15 PM EDT [facility] Immunizations Immunization Date Immunization Notes Care Provider Fa cili 04-24-2024 Seasonal, quadrivalent, recombinant, injectable influenza vaccine, preservative free Aisha Ragland PA Work Phone: [facility] 04-24-2024 influenza virus vaccine, unspecified formulation Yris Donnelly NP Work Phone: [facility] 03-27-2023 Influenza, High-dose Seasonal, Quadrivalent, Preservative Free Aisha Ragland PA Work Phone: [facility] 03-27-2023 pneumococcal conjuga te vaccine, 13 valent Aisha Ragland PA Work Phone: [facility] 03-27-2023 influenza virus vaccine, unspecified formulation Tabitha Valentino DPM Work Phone: [facility] 2022 influenza, high dose seasonal, preservative-free Aisha Ragland PA Work Phone: [facility] 2022 Influenza, High-dose Seasonal, Quadrivalent, Preservative Free Aisha Ragland PA Work Phone: [facility] 04-25-2021 Influenza, High-dose Seasonal, Quadrivalent, Preservative Free Aisha Ragland PA Work Phone: [facility] 04-06-2021 Kenalog -40 mg Vicky Calve y Other [facility] Other 10-26-2020 Kenalog -40 mg Vicky Calve y Other [facility] Other 09-28-2020 pneumococcal polysaccharide vaccine, 23 valent Aisha Ragland PA Work Phone: [facility] 07-23-2020 tetanus toxoid, reduced diphtheria toxoid, and acellular pertussis vaccine, adsorbed PA-C Aisha Ragland Work Phone: [facility] 07-20-2020 Kenalog -40 mg Vicky Calve y Other [facility] Other 04-26-2020 influenza, high dose seasonal, preservative-free Aisha Ragland PA Work Phone: [facility] 04-26-2020 Influenza, High-dose Seasonal, Quadrivalent, Preservative Free Aisha Ragland PA Work Phone: [facility] 04-21-2020 Kenalog -40 mg Vicky Calve y Other [facility] Other 02-11-2020 Kenalog -40 mg Vicky Calve y Other [facility] Other 12-03-2019 Kenalog -40 mg Vicky Calve y Other [facility] Other 05-21-2019 influenza, high dose seasonal, preservative-free Aisha Ragland PA Work Phone: [facility] 05-26-2018 influenza, high dose seasonal, preservative-free Aisha Meagan PA Work Phone: [facility] 06-27-2017 pneumococcal polysaccharide vaccine, 23 valent Aisha Ragland PA Work Phone: [facility] 05-05-2017 influenza, high dose seasonal, preservative-free Aisha Meagan PA Work Phone: [facility] 04-24-2017 influenza, injectabl e, quadrivalent, preservative free Aisha Meagan PA Work Phone: [facility] 05-20-2016 influenza, high dose seasonal, preservative-free Aisha Meagan PA Work Phone: [facility] 05-11-2015 influenza, injectabl e, quadrivalent, contains preservative Aisha Meagan PA Work Phone: [facility] 05-26-2014 influenza, injectabl e, quadrivalent, contains preservative Aisha Meagan PA Work Phone: [facility] 05-06-2008 influenza virus vaccine, whole virus Aisha Meagan PA Work Phone: [facility] 05-14-2007 influenza virus vaccine, whole virus Aisha Meagan PA Work Phone: [facility] NEGATED: Highlighted row has not occurred!04-26-2019 influenza, high dose seasonal, preservative-free PA-C Aisha Meagan Work Phone: [facility] Payers Date Payer Category Payer Self-pay [id number] 2023 Private Health Insurance ERIC li [id number] 2020 Medicare (Managed Care) [facility] [id number] 2020 Unknown 2020 Unknown [id number] [id number] 1959 Unknown [id number] 1947 Unknown [id number] 2.16.840.1.094810.3.579.2 .593 1947 Unknown [id number] 2.16.840.1.443893.3.579.2 .593 1947 Unknown [id number] 2.16.840.1.945408.3.579.2 .727 1947 Unknown [id number] 2.16.840.1.065841.3.579.2 .727 1947 Unknown [id number] 2.16.840.1.138030.3.579.2 .727 1947 Unknown [id number] 2.16.840.1.329721.3.579.2 .1259 1947 Unknown [id number] 2.16.840.1.397478.3.579.2 .1259 1947 Unknown [id number] 2.16.840.1.374310.3.579.2 .1258 1947 Unknown [id number] 2.840.1.137894.3.579.2 .1258 1947 Unknown [id number] 2.840.1.923666.3.579.2 .1258 1947 Unknown [id number] 2.0.1.351857.3.579.2 .1258 1947 Unknown [id number] 2.0.1.331051.3.579.2 .1258 1947 Unknown [id number] .0.1.328803.3.579.2 .1258 1947 Unknown [id number] ..1.283712.3.579.2 .1258 1947 Unknown [id number] ..1.885604.3.579.2 .1258 1947 Unknown [id number] .0.1.838861.3.579.2 .1259 Medicare [id number] Unknown HCAP/HFA/FAP Active [id number] Unknown [id number] .1.622337.3.579.2 .531 Unknown [id number] .840.1.350744.3.579.2 .531 Unknown [id number] .840.1.497184.3.579.2 .531 Unknown [id number] .840.1.625374.3.579.2 .531 Unknown [id number] 2.840.1.152086.3.579.2 .531 Unknown [id number] 2.0.1.183154.3.579.2 .531 Unknown [id number] 2.0.1.735359.3.579.2 .531 Unknown [id number] 2.16.840.1.192694.3.579.2 .531 Unknown [id number] 2.16.840.1.320079.3.579.2 .531 Unknown [id number] 2.16.840.1.538584.3.579.2 .531 Social History Date Type Detail Facility Start: 08-14-2023 End: 10-14-2024 Sex Assigned At [facility] [employer] Other Start: 07-24-2020 End: 03-27-2023 Tobacco smoking status SDIS Never smoked tobacco (finding) [facility] Start: 1945 Sex Assigned At Female F [facility] Start: 03-27-2023 Tobacco use and exposure Smokeless tobacco non-user [facility] Start: 08-14-2023 End: 01-13-2025 Alcohol intake Current drinker of alcohol (finding) [facility] Start: 08-14-2023 End: 10-14-2024 History of Social function [facility] Start: 12-25-2022 Alcohol Comment 1-2 drinks les s than monthly in the past year, Caffeine intake: 2-3 cups per day [facility] Start: 1945 Sex Assigned At Not on file N [facility] Start: 07-23-2024 End: 12-23-2024 Sex Female (finding) [facility] Start: 09-10-2024 SDOH Follow up SDOH Follow up [facility] Work Phone: Medical Equipment Procedure Code Equipment Code Equipment Origin al Text Equipment Identifier Dates Arthroplasty, knee, total, minimally invasive Orthopaedic cement, non-medicated ()[id number] FDA Start: 09-09-2024 Arthroplasty, knee, total, minimally invasive Uncoated knee tibia prosthesis, metallic ()[id number] FDA Start: 09-09-2024 Arthroplasty, knee, total, minimally invasive Uncoated knee femur prosthesis ()[id number] FDA Start: 09-09-2024 Arthroplasty, knee, total, minimally invasive Tibial insert ()[id number] FDA Start: 09-09-2024 Arthroplasty, knee, total, minimally invasive Knee stem ()[id number] FDA Start: 09-09-2024 Arthroplasty, knee, total, minimally invasive Polymer orthopaedic cement restrictor, non-bioabsorbable, sterile ()[id number] FDA Start: 09-09-2024 Orthopaedic bone screw, non-bioabsorbable, non-sterile ()[id number] FDA Start: 04-25-2019 Orthopaedic bone screw, non-bioabsorbable, non-sterile ()[id number] FDA Start: 04-25-2019 Orthopaedic bone screw, non-bioabsorbable, non-sterile ()[id number] FDA Start: 04-25-2019 Orthopaedic bone washer, non-sterile ()[id number] FDA Start: 04-25-2019 [id number] Start: 04-26-2022 Lancets (OneTouc h Delica Plus [id number]) [facility] [id number] Start: 04-26-2022 USE DIRECTED ONCE DAILY [id number] Start: 07-17-2024 USE DIRECTED ONCE DAILY [id number] Start: 07-14-2024 Blood Sugar Diagnostic (Onetouch Ultra [...] 09-11-2024 Functional status Patient Not at Baseline [facility] Work Phone: 10-17-2023 Functional Status N/A [facility] 10-01-2023 Functional Status N/A [facility] Mental Status Date Assessment Result Facility 09-11-2024 Cognitive function Cognitive Sta tus Patient at Baseline [facility] Work Phone: Clinical Notes 04-15-2013 to 02-27-2025 Telephone Encounter - ANA Whitlock - 02/27/2025 2:27 PM EDTTelephone Encounter - ANA Whitlock - 02/27/2025 2:27 PM EDTANA Whitlock - 01/13/2025 2:40 PM EDT Note Date & Type Note Facility 02-27-2025 Telephone encounter Note Form atting of this note might be different from the original. completed [facility] 02-27-2025 Miscellaneous Notes Formattin g of this note might be different from the original. completed documented in this encounter [facility] 01-13-2025 History of Presen t illness [...] walker for mobility and has increased her uqd-er-obfig repetitions from 5 to 12. She can [...] test strip USE DIRECTED ONCE DAILY HYDROcodone-acetaminophen (Borger) 5-325 MG tablet 1 tablet, Oral, 3 times daily Lancets (OneTouch Delica Plus [id number]) misc lidocaine (Lidoderm) 5 % patch 1 [...] Vaccine (1) 03/16/2025 documented in this encounter [facility] 12-21-2024 Evaluation note Diagnosis Onset Date Resolution Impacted cerumen of left ear acute December 21, 2024 11:34am UTI (urinary tract infection) acute December 21, 2024 11:34am Primary osteoarthritis of left knee acute January 26, 2025 1:04pm Primary osteoarthritis of right knee acute January 26, 2025 1:04pm Primary osteoarthritis of right shoulder acute January 26 1:04pm Status post total right knee replacement noneactive January 26, 2025 1:04pm [facility] Work Phone: 1(241) 312-419606-08-2025 Evaluation note* Diagnosis Onset Date Resolution Status Admit Date Impacted cerumen of left ear acute December 21, 2024 11:34am UTI (urinary tract infection) acute December 21, 2024 11:34am Primary osteoarthritis of left knee acute January 26, 2025 1:04pm Primary osteoarthritis of right knee acute January 26, 2025 1:04pm Primary osteoarthritis of right shoulder acute January 26, 2025 1:04pm Status post total right knee replacement noneactive January 26, 2025 1:04pm Avulsion fracture acute 2024 12:45pm Primary osteoarthritis of left knee acute March 18, 025 12:45pm Primary osteoarthritis of right knee acute March 18, 025 12:45pm Primary osteoarthritis of right shoulder acute March 18, 025 12:45pm Status post total right knee replacement noneactive March 18, 025 12:45pm [facility] Work Phone: 1(522) 270-995805-19-2025 Evaluation note* Diagnosis Onset Date Resolution Status Admit Date Primary osteoarthritis of ri ght knee acute December 01, 2024 4 :05pm Status post total right knee replacement noneactive December 01, 2024 4 :05pm Impacted cerumen of left ear acute December 21, 2024 11:34am UTI (urinary tract infection) acute December 21, 2024 11:34am Primary osteoarthritis of le ft knee acute January 26, 2025 1:04pm Primary osteoarthritis of ri ght knee acute January 26, 2025 1:04pm Primary osteoarthritis of ri ght shoulder acute January 26, 2025 1:04pm Status post total right knee replacement noneactive January 26, 2025 1:04pm [facility] Work Phone: 1(590) 343-535004-14-2025 History of Present illness Narrative* Tabitha Valentino DPM - 10/27/2024 4:00 PM EDT Subjective Patient ID: Nata Pete is a 79 y.o. female who presents for Toenail Care. Had total knee replacement in Sep 09. was released from the [facility] in [place] october 03 2024. States knee has healed [...] DAILY, Disp: 100 each, Rfl: 11 HYDROcodone-acetaminophen (Borger) 5-325 MG tablet, Take 1 tablet by mouth in the morning and 1 tablet in the evening and 1 tablet before bedtime., Disp: 90 tablet, Rfl: 0 Lancets (OneTouch Delica Plus [id number]) [facility] , Disp: , Rfl: lidocaine (Lidoderm) 5 [...] All of the nondystrophic nails were debrided Augusta debr 2 distal documented in this encounterCedar County Memorial HospitalFwilhfdffe36-88-8905 Telephone encounter Note* Telephone Encounter - ANA Whitlock - 10/25/2024 2:24 PM EDT completed [facility] HospitalWstdtgtjog58-29-9225 Miscellaneous Notes* Telephone Encounter - ANA Whitlock - 10/25/2024 2:24 PM EDT completed documented in this encounterCedar County Memorial HospitalEpqackdyrq60-79-0826 Evaluation note* Diagnosis Onset Date Resolution Status [...] tract infection) acute December 21, 2024 11:34am [facility] Work Phone: 1(426) 117-743304-01-2025 History of Present illness Narrative* ANA Whitlock - 10/14/2024 3:30 PM EDT Images from the original note were not included. Nata Pete is a 79 y.o. female presents with chief complaint of Medicare Annual Wellness Visit Subsequent and Hospital Follow-up (Follow up from SNF - [facility] completed TCM) HPI: Flowsheet Row Patient Outreach from 10/09/2024 in [facility] with Annika Espinoza MA Hospital Information ED, Hospital or Penitentiary Facility Discharge? Penitentiary Facility Discharge Date 10/03/24 Discharged To: Home Setting [facility] Admission Date 09/11/24 Medications Discharge medications reviewed and reconciled from hospital? No Appointments Does the patient have a primary care provider? Yes Does the patient have any upcoming specialty appointments? Yes Self Management Does patient have home health? yes What is the home health agency? [facility] Patient Teaching Wrap Up Medicare Wellness Over [...] Do you have a medical power of appliance mechanic?: No History of Present Illness The patient [...] TABLET BY MOUTH EVERY DAY glucose blood (TrademarkFlyTouch Ultra) test strip USE DIRECTED ONCE DAILY glucose blood (OneTouch Ultra) test strip USE DIRECTED ONCE DAILY HYDROcodone-acetaminophen (Borger) 5-325 MG tablet 1 tablet, Oral, 3 times daily Lancets (TrademarkFlyTouch Delica Plus Mdftnt64L) misc lidocaine (Lidoderm) 5 % patch 1 [...] Annual Wellness (AWV) 10/17/2024 documented in this encounterCedar County Memorial HospitalKukkazhdel60-74-8666 Evaluation note* Diagnosis Onset Date Resolution Status [...] replacement noneactive December 01, 2024 4 :05pm [facility] Work Phone: 1(512) 362-103602-27-2025 Discharge summary Author Adrian Anne [facility] Note Date/Time September 11, 2024 12:33pm [facility] [address] [place] [address] Discharge Summary Signed Patient: Nata Pete MR#: [id number] : 1945 Acct:[id number] Age/Sex: 79 / F Adm Date: 5 Loc: Room: [address] [place] [address]: João Soto DO Copies to: [...] breath. Additionally, please call our office at [phone] should any of the followingoccur: wound bleeding [...] time or it could last forever. VENKATA hosgarcía (stockinette): ? Wear them for 4 weeks [...] laxatives as directed. ? You may take dtdd-ods-qnzvwva Benadryl if itching occurs without a rash or hives. ? Icing and elevation will help relieve pain as well, do not underestimate the power of ice and elevation. We do recommend that you stop taking narcotic pain medications by 4-6 weeks after surgery and if necessary, continue to use anti-inflammatory medications such as Mobic (meloxicam), Celebrex (celecoxib), or an lhcb-vks-kwjdquo medication (Aleve, Motrin, Ibuprofen, etc). Driving an [...] feel free to call our office at [phone]. You are a priority of ours and we will not be upset with you if you call. We would much rather you call to confirm aspects of your recovery process as opposed to possibly hindering your recovery with inappropriate care. We are committed to providing you with the best care possible. Dr. João Soto [facility] [address] [place] [address] [email or web address]/[email or web address]/ Instructions: Know your Meds Prescriptions: Continued lorazepam [...] mg tablet 500 mg PO DAILY omega 8-lke-ceu-fish oil [Fish Oil] 1,200 (144-216) mg capsule [...] % (Auto) 66.8, Lymph % (Auto) 16.6, Cataño % (Auto) 11.4, Eos % (Auto) 4.6, Baso % (Auto) 0.6, Nucleat RBC Rel Count 0.0, Neut # (Auto) 3.7, Lymph # (Auto) 0.9 L, Cataño # (Auto) 0.6, Eos # (Auto) 0.3, [...] signed by Adrian Anne DO> 09/11/24 1233 [facility] Work Phone: 1(571) 952-686302-27-2025 Progress note Author Adrian Anne [facility] Note Date/Time September 11, 2024 12:31pm [facility] [address] [place] [address] Orthopedic Progress Note Signed Patient: Nata Pete MR#: [id number] : 1945 Acct:[id number] Age/Sex: 79 / F Adm Date: 5 Loc: 4N Room: 0K6165-4 Type: REG SDC Attending Dr: João Soto [...] MPV Neut % (Auto) Lymph % (Auto) Cataño % (Auto) Eos % (Auto) Baso % (Auto) Nucleat RBC Rel Count Neut # (Auto) Lymph # (Auto) Cataño # (Auto) Eos # (Auto) Baso # [...] % (Auto) 66.8 Lymph % (Auto) 16.6 Cataño % (Auto) 11.4 Eos % (Auto) 4.6 Baso % (Auto) 0.6 Nucleat RBC Rel Count 0.0 Neut # (Auto) 3.7 Lymph # (Auto) 0.9 L Cataño # (Auto) 0.6 Eos # (Auto) 0.3 [...] office with any questions or concerns Likely nursing home facility. Await PT/OT eval's and input. Documented By: Adrian Anne DO 09/11/24 1230 Signed By: <Electronically signed by Adrian Anne DO> 09/11/24 1231 [facility] Work Phone: 1(798) 227-786202-27-2025 [place] [id number] Discharge Summary Signed Patient: Nata Pete MR#: [id number] : 1945 Acct:[id number] Age/Sex: 79 / F Adm Date: 5 Loc: 4N Room: [id number]: João Soto DO Copies to: [...] breath. Additionally, please call our office at [phone] should any of the followingoccur: wound bleeding [...] laxatives as directed. ? You may take cfsj-btf-dfbmzog Benadryl if itching occurs without a rash or hives. ? Icing and elevation will help relieve pain as well, do not underestimate the power of ice and elevation. We do recommend that you stop taking narcotic pain medications by 4-6 weeks after surgery and if necessary, continue to use anti-inflammatory medications such as Mobic (meloxicam), Celebrex (celecoxib), or an lqjs-igf-tctztzi medication (Aleve, Motrin, Ibuprofen, etc). Driving an [...] feel free to call our office at [phone]. You are a priority of ours and we will not be upset with you if you call. We would much rather you call to confirm aspects of your recovery pr ocess as opposed to possibly hindering your recovery with inappropriate care. We are committed to providing you with the best care possible. Dr. João Soto [facility] [address] [place] [address] [email or web address] Renewablescoquille valley hospitalBlue Pillar.Chronicity/fpg/vdhu-d-uhvqca/profile/faith/ Instructions: Know your Meds Prescriptions: Continued lorazepam [...] mg tablet 500 mg PO DAILY omega 6-blq-icv-fish oil [Fish Oil] 1,200 (144-216) mg capsule [...] % (Auto) 66.8, Lymph % (Auto) 16.6, Cataño % (Auto) 11.4, Eos % (Auto) 4.6, Baso % (Auto) 0.6, Nucleat RBC Rel Count 0.0, Neut # (Auto) 3.7, Lymph # (Auto) 0.9 L, Cataño # (Auto) 0.6, Eos # (Auto) 0.3, [...] DO 09/11/24 1232 Signed By: 09/11/24 1233 [facility]02-27-2025 [place] [address] Orthopedic Progress Note Signed Patient: Nata Pete MR#: [id number] : 1945 Acct:[id number] Age/Sex: 79 / F Adm Date: 5 Loc: 4N Room: [address] [place] [address] Type: REG KSC Attending Dr: João Soto DO Copies to: [...] MPV Neut % (Auto) Lymph % (Auto) Cataño % (Auto) Eos % (Auto) Baso % (Auto) Nucleat RBC Rel Count Neut # (Auto) Lymph # (Auto) Cataño # (Auto) Eos # (Auto) Baso # [...] % (Auto) 66.8 Lymph % (Auto) 16.6 Cataño % (Auto) 11.4 Eos % (Auto) 4.6 Baso % (Auto) 0.6 Nucleat RBC Rel Count 0.0 Neut # (Auto) 3.7 Lymph # (Auto) 0.9 L Cataño # (Auto) 0.6 Eos # (Auto) 0.3 [...] office with any questions or concerns Likely nursing home facility. Await PT/OT eval's and input. Documented By: Adrian Anne DO 09/11/24 1230 Signed By: 09/11/24 [facility]1 [facility]02-26-2025 Progress note Author Adrian Anne [facility] Note Date/Time September 10, 2024 9:44am [facility] [address] [place] [address] Orthopedic Progress Note Signed Patient: Nata Pete MR#: [id number] : 1945 Acct:[id number] Age/Sex: 79 / F Adm Date: 5 Loc: 4 Room: [address] [place] [address] Type: [facility] Attending Dr: João Soto DO Copies to: [...] MPV Neut % (Auto) Lymph % (Auto) Cataño % (Auto) Eos % (Auto) Baso % (Auto) Nucleat RBC Rel Count Neut # (Auto) Lymph # (Auto) Cataño # (Auto) Eos # (Auto) Baso # [...] % (Auto) 73.8 Lymph % (Auto) 11.8 Cataño % (Auto) 12.5 Eos % (Auto) 1.8 Baso % (Auto) 0.1 Nucleat RBC Rel Count 0.1 Neut # (Auto) 4.6 Lymph # (Auto) 0.7 L Cataño # (Auto) 0.8 Eos # (Auto) 0.1 [...] office with any questions or concerns Likely nursing home facility. Await PT/OT eval's and input. Documented By: Adrian Anne DO 09/10/24 0942 Signed By: <Electronically signed by Adrian Anne DO> 09/10/24 0944 [facility] Work Phone: 1(259) 774-422102-26-2025 [place] [address] Orthopedic Progress Note Signed Patient: Nata Pete MR#: [id number] : 1945 Acct:[id number] Age/Sex: 79 / F Adm Date: 5 Loc: Room: [address] [place] [address] Type: REG SDC Attending Dr: João Soto [...] MPV Neut % (Auto) Lymph % (Auto) Cataño % (Auto) Eos % (Auto) Baso % (Auto) Nucleat RBC Rel Count Neut # (Auto) Lymph # (Auto) Cataño # (Auto) Eos # (Auto) Baso # [...] % (Auto) 73.8 Lymph % (Auto) 11.8 Cataño % (Auto) 12.5 Eos % (Auto) 1.8 Baso % (Auto) 0.1 Nucleat RBC Rel Count 0.1 Neut # (Auto) 4.6 Lymph # (Auto) 0.7 L Cataño # (Auto) 0.8 Eos # (Auto) 0.1 [...] office with any questions or concerns Likely nursing home facility. Await PT/OT eval's and input. Documented By: Adrian Anne DO 09/10/24 0942 Signed By: 09/10/24 0944 [facility]02-25-2025 Progress note Author João Stoo [facility] Note Date/Time September 09, 2024 1:50pm [facility] [address] [place], [place] [address] Orthopedic Progress Note Signed Patient: Nata Pete MR#: [id number] : 1945 Acct:[id number] Age/Sex: 79 / F Adm Date: 5 Loc: 4N Room: [address] [place] [address] Type: REG SDC Attending Dr: João Soto [...] office with any questions or concerns Likely nursing home facility. Await PT/OT eval's and input. Dr. João Soto [facility] [address] [facility] [place], [place] [address] Documented By: João Soto DO 09/09/24 1341 Signed By: <Electronically signed by João Soto DO> 09/09/24 5826 [facility] Work Phone: 1(555) 117-118902-25-[address] [address] Orthopedic Progress Note Signed Patient: Nata Pete MR#: [id number] : 1945 Acct:[id number] Age/Sex: 79 / F Adm Date: 5 Loc: 4N Room: [address] [place] [address] Type: REG SDC Attending Dr: João Soto [...] office with any questions or concerns Likely nursing home facility. Await PT/OT eval's and input. Dr. João Soto [facility] [address] [place] [address] Documented By: João Soto DO 09/09/24 1347 Signed By: 09/09/24 1350 [facility]02-19-2025 Evaluation note* Diagnosis Onset Date Resolution Status [...] knee replacement noneactive October 20, 2024 4:22pm [facility] Work Phone: [phone]) 464-181102-13-2025 Miscellaneous Notes* Telephone Encounter - Shawna Velasquez NP - 08/28/2024 9:04 AM EST Rx sent on 08/26/24. documented in this [facility]02-13-2025 Telephone encounter Note* Telephone Encounter - Shawna Velasquez NP - 08/28/2024 9:04 AM EST Rx sent on 08/26/24. [facility] Work Phone: [phone] History of Present illness Narrative* Maggi Marquez LPN - 08/26/2024 8:47 AM EST Last refilled on 07/29/24. Last OV was 08/21/24. Narc refill- Charito refilled last time documented in this encounterCedar County Memorial HospitalXjcaxpsnhs39-52-1796 History of Present illness Narrative* ANA Whitlock [...] TABLET BY MOUTH EVERY DAY glucose blood (TrademarkFlyTouch Ultra) test strip USE DIRECTED ONCE DAILY glucose blood (OneTouch Ultra) test strip USE DIRECTED ONCE DAILY HYDROcodone-acetaminophen (Borger) 5-325 MG tablet 1 tablet, Oral, 3 times daily Lancets (TrademarkFlyTouch Delica Plus Hblxme53R) misc lidocaine (Lidoderm) 5 % patch 1 [...] 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 ([facility]) Relevant Orders POCT glycated hemoglobin, total docked device Health Maintenance Due Topic Date Due Diabetes: Retinopathy Screening 12/10/2023 Diabetes: Hemoglobin A1C 07/25/2024 documented in this encounterCedar County Memorial HospitalUcelkpsbxp67-83-4438 History of Present illness Narrative* Tabitha Valentino, [...] DAILY, Disp: 100 each, Rfl: 11 HYDROcodone-acetaminophen (Borger) 5-325 MG tablet, Take 1 tablet by mouth in the morning and 1 tablet in the evening and 1 tablet before bedtime., Disp: 90 tablet, Rfl: 0 Lancets (OneTouch Delica Plus Sipjha29K) [facility] , Disp: , Rfl: lidocaine (Lidoderm) 5 [...] All of the nondystrophic nails were debrided Augusta debr 2 distal documented in this encounterCedar County Memorial HospitalOxolzvowzb26-86-3338 Evaluation note* Diagnosis Onset Date Resolution Status [...] shoulder chronic September 03 2 025 3:09pm S/P total knee arthroplasty acute September 09, 2024 5:51am [facility] Work Phone: [phone]) 164-971201-08-2025 Evaluation note* Diagnosis Onset Date Resolution Status [...] knee replacement noneactive September 22, 2024 12:54pm [facility] [place] [facility] Work Phone: 1([phone] 377-162401-02-2025 Miscellaneous Notes* Telephone Encounter - ANA Whitlock - 07/17/2024 9:57 AM EST completed documented in this encounterCedar County Memorial HospitalEodpewlnau24-25-9552 Telephone encounter Note* Telephone Encounter - ANA Whitlock - 07/17/2024 9:57 AM EST completed [facility] HospitalSidowoigvh82-81-3465 History of Present illness Narrative* ANA Whitlock [...] TABLET BY MOUTH EVERY DAY glucose blood (TrademarkFlyTouch Ultra) test strip USE DIRECTED ONCE DAILY HYDROcodone-acetaminophen (Borger) 5-325 MG tablet 1 tablet, Oral, 3 times daily Lancets (OneTouch Delica Plus Rkqqct90V) misc lidocaine (Lidoderm) 5 % patch 1 [...] Diabetes: Retinopathy Screening 12/10/2023 documented in this [facility]12-12-2024 Telephone encounter Note* Telephone Encounter - ANA Whitlock - 06/26/2024 8:57 AM EST completed [facility] HospitalUtvunrcdtr21-07-6343 Miscellaneous Notes* Telephone Encounter - ANA Whitlock - 06/26/2024 8:57 AM EST completed documented in this [facility]11-23-2024 Evaluation note* Diagnosis Onset Date Resolution Status Admit Date Acute lower respiratory infection acute June 07, 2 024 1:46pm Osteoarthritis of left knee acute July 23, 2024 3:01pm Osteoarthritis of right knee acute July 23, 2024 3:01pm Pre-op exam acute July 23, 2024 3:01pm Osteoarthritis of right shoulder chronic July 23 3:01pm [facility] Work Phone: 1(843) 892-245211-23-2024 Evaluation note* Diagnosis Onset Date Resolution Status Admit Date Acute lower respiratory infection acute June 07, 2 024 1:46pm Osteoarthritis of left knee acute July 23, 2024 3:01pm Osteoarthritis of right knee acute July 23, 2024 3:01pm Pre-op exam acute Carissa 8th, 2025 3:01pm Osteoarthritis of right shoulder chronic July [...] shoulder chronic September 03, 2 025 3:09pm [facility] Work Phone: [phone] 179-312811-18-2024 History of Present illness Narrative* Tabitha Valentino, DPM - 06/02/2024 3:30 PM EST Subjective [...] Disp: 90 tablet, Rfl: 3 glucose blood (Botanical Tansuch Ultra) test strip, USE DIRECTED ONCE DAILY, Disp: 100 each, Rfl: 11 HYDROcodone-acetaminophen (Borger) 5-325 MG tablet, Take 1 tablet by mouth in the morning and 1 tablet in the evening and 1 tablet before bedtime., Disp: 90 tablet, Rfl: 0 Lancets (TrademarkFlyTouch Delica Plus Gquuvi15E) [facility] , Disp: , Rfl: lidocaine (Lidoderm) 5 [...] All of the nondystrophic nails were debrided Augusta debr 2 distal documented in this [facility]11-18-2024 Miscellaneous Notes* Telephone Encounter - ANA Whitlock - 06/02/2024 12:15 PM EST completed documented in this [facility]11-18-2024 Telephone encounter Note* Telephone Encounter - ANA Whitlock - 06/02/2024 12:15 PM EST completed [facility] Wxoeksxulq55-29-3752 Telephone encounter Note* Telephone Encounter - ANA Whitlock - 05/26/2024 9:13 AM EST completed [facility] Lrzlhhrret68-51-1571 Miscellaneous Notes* Telephone Encounter - ANA Whitlock - 05/26/2024 9:13 AM EST completed documented in this [facility]10-10-2024 History of Present illness Narrative* ANA Whitlock [...] MOUTH EVERY DAY for 30 glucose blood (Botanical Tansuch Ultra) test strip USE DIRECTED ONCE DAILY HYDROcodone-acetaminophen (Borger) 5-325 MG tablet 1 tablet, Oral, 2 times daily Lancets (TrademarkFlyTouch Delica Plus Pjahmm76Z) misc lidocaine (Lidoderm) 5 % patch 1 [...] prescription will be sent to [facility] in [place]. 3. Dental Issues. She has one more [...] Visit Chronic pain disorder Relevant Medications HYDROcodone-acetaminophen (Borger) 5-325 MG tablet Controlled type 2 diabetes mellitus with diabetic polyneuropathy, 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 ([facility]) Relevant Orders POCT glycated hemoglobin, total docked device (Completed) Other Visit Diagnoses Need for immunization against influenza Relevant Orders Flu vaccine, quadrivalent, recombinant, preservative free (Completed) Health Maintenance Due Topic Date Due Diabetes: Retinopathy Screening 12/10/2023 Influenza Vaccine (1) 03/16/2024 Diabetes: Hemoglobin A1C 04/29/2024 documented in this encounterCedar County Memorial HospitalLwmrjovylp51-70-1997 History of Present illness Narrative* Tabitha Valentino, RANDEE - 03/24/2024 4:15 PM EDT Subjective Patient [...] am Aggravated by shoe gear, pressure DLS 715-24 PCP Zuri Hannah MD ROS General: Chillsdenies. [...] Disp: 90 tablet, Rfl: 3 glucose blood (Botanical Tansuch Ultra) test strip, USE DIRECTED ONCE DAILY, Disp: 100 each, Rfl: 11 HYDROcodone-acetaminophen (Borger) 5-325 MG tablet, Take 1 tablet by mouth in the morning and 1 tablet before bedtime., Disp: 60 tablet, Rfl: 0 Lancets (TrademarkFlyTouch Delica Plus Qbuqwu10V) [facility] , Disp: , Rfl: lidocaine (Lidoderm) 5 [...] nondystrophic nails were debrided documented in this encounterCedar County Memorial HospitalJiypjeqnxm23-80-4560 History of Present illness Narrative* ANA Whitlock - 03/13/2024 11:00 AM EDT Images from the original note were not included. Nata Pete is a 78 y.o. female presents with chief complaint of No chief complaint on file. HPI: History of Present Illness Patient here for anxiety Patient was in ER on 03-10-2024 the dentist sent her to [facility] ER due to fact she was acting [...] MOUTH EVERY DAY for 30 glucose blood (TrademarkFlyTouch Ultra) test strip USE DIRECTED ONCE DAILY HYDROcodone-acetaminophen (Borger) 5-325 MG tablet 1 tablet, Oral, 2 times daily Lancets (OneTouch Delica Plus Iqeztm75M) misc lidocaine (Lidoderm) 5 % patch 1 [...] List Items Addressed This Visit Reactive depression (CMS/HCC) - Primary Anxiety Health Maintenance Due Topic Date Due Diabetes: Retinopathy Screening 12/10/2023 Influenza Vaccine (1) 03/16/2024 documented in this encounterCedar County Memorial HospitalRlmpydukhz24-17-4649 Evaluation + Plan note Extracted from: Title:Pain [...] states that they have been giving her Borger 5/325 twice daily as needed pain that [...] All Problems Resolved: Hypertension / SNOMED CT 65312373 Resolved: Osteoarthritis / SNOMED CT 9191152014 Resolved: High cholesterol / SNOMED CT 3016655959 Resolved: Diabetes mellitus / SNOMED CT 830273366 Histories Past Medical History: Resolved Hypertension (29700279): Resolved. Osteoarthritis (4246630090): Resolved. High cholesterol (6896729690): Resolved. Diabetes mellitus (705207890): Resolved. Family History: Hypertension Father Brother Sister Heart disease Father Diabetes mellitus type 2 Mother Brother Stroke Mother CAD (coronary artery disease) Father Procedure history: Appendectomy (SNOMED CT 951367869). Cholecystectomy (SNOMED CT 26577059). Tonsillectomy (SNOMED CT 864101945). Repair of right hip joint (SNOMED CT 695424942793802). Osteoporotic fracture of left hip (SNOMED CT 147343284521012). Social History Social & Psychosocial Habits Alcohol 4Risk Assessment: Denies Alcohol Use Substance Abuse 4Risk Assessment: Denies Substance Abuse Tobacco 10/17/2023 Tobacco Use: Never (less than 100 in l 4Risk Assessment: Denies Tobacco Use . Physical Examination Vital Signs (last 24 hrs) Last Charted Heart Rate Qgtjxnpcoz27 bpm (OCT 16 10:18) XJV495 mmHg (OCT 16 10:18) DBP64 mmHg (OCT 16 10:18) Kreuhm15 kg (OCT 16 10:18) BMI27.68 (OCT 16 [...] Appropriate mood & affect. Integumentary: Warm, Dry, [place]. Review / Management Results review: No qualifying [...] with her PCP. She has been getting Borger from her PCP. 5/325 twice daily. She [...] ranged due to being in a brace/AFO [facility]03-18-2024 Evaluation + Plan noteExtracted from: Title:ED Note Author:Dillon Hurtado DO Date :10/01/23 Acute UTI (N39.0: Urinary tr act infection, site not specified) Orders: cephalexin, 500 mg = 1 cap(s), Oral, q12hr, X 7 day(s), # 14 cap(s), Refills(s) 0, Pharmacy: [facility]/pharmacy #[id number], 175, cm, 10/01/23 5:36:00 EDT, Height/Length Dosing, 55, kg, 10/01/23 5:36:00 EDT, Weight Dosing cephalexin, 500 mg = 1 cap(s), Cap, Oral, Once, Stop date 10/01/23 6:24:00 EDT, STAT, Start date 10/01/23 6:24:00 EDT, 10/01/23 6:24:00 EDT phenazopyridine, 100 mg = 1 tab(s), Oral, TID, X 3 day(s), # 9 tab(s), Refills(s) 0, Pharmacy: [facility]/pharmacy #[id number], 175, cm, 10/01/23 5:36:00 EDT, Height/Length Dosing, 55, kg, 10/01/23 5:36:00 EDT, Weight Dosing UA With Cult Reflex Urine Culture Future Appointments Appointment Date:10/17/2023 10:45:00 AM Scheduled Provider:Kaci Morton PA-C Location:FT.Pain Mgmt Jim Appointment Type:Pain Management - New (FT) Diagnostic Tests Pending * Urine Culture 10/01/23 [facility]03-18-2024 Hospital Discharge instructions Patient Education 10/01/2023 06:38:16 [...] Treatment for this condition includes: Antibiotic medicine. Heck-awl-dnwpycr medicines to treat discomfort. Drinking enough water [...] Follow these instructions at home: Medicines Take kalw-aiy-jueaxrb and prescription medicines only as told by [...] provider. Document Revised: 02/11/2021 Document Reviewed: 02/11/2021 [employer] Patient Education 2022 [employer]. Follow Up Care 10/01/2023 05:17:03 With:Aisha RAGLAND Address: [address] [place], [place] [address] Business (1) When:Within 3 Day(s) [facility]02-13-2024 History of Present illness Narrative* ANA Whitlock - 08/28/2023 3:03 PM ESTAssociated Problem(s): Chronic pain disorder Patient will call when need refill * ANA Whitlock - 08/28/2023 3:02 PM ESTAssociated Problem(s): Controlled type 2 diabetes mellitus with diabetic polyneuropathy, without dino g-term current use of insulin ([facility]) Well controlled will continue meds * ANA [...] MOUTH EVERY DAY for 30 glucose blood (Botanical Tansuch Ultra) test strip USE DIRECTED ONCE DAILY HYDROcodone-acetaminophen (Borger) 5-325 MG tablet 1 tablet, Oral, 2 times daily Lancets (TrademarkFlyTouch Delica Plus Tlivab38A) misc lisinopril 20 MG tablet TAKE 1/4 [...] 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 ([facility]) Well controlled will continue meds Relevant Orders POCT Glycated hemoglobin, total (Completed) Microalbumin / creatinine urine ratio (Completed) documented in [facility] encounterC[facility] [id number] Evaluation note* Encounter Date Diagnosis Assessment Notes [...] pain of right shoulder (ICD-10 - M25.511) [facility] Other 11-27-2023 Evaluation note* Encounter Date Diagnosis Assessment Notes Treatment Notes Treatment Clinical Notes May, Primary osteoarthritis of right shoulder (ICD-10 - M19.011) [facility] Other 09-06-2023 Evaluation note* Encounter Date Diagnosis [...] pain of right shoulder (ICD-10 - M25.511) [facility] Other 07-31-2023 Evaluation note* Encounter Date Diagnosis Assessment Notes Treatment Notes Treatment Clinical Notes Jan, Primary osteoarthritis of right shoulder (ICD-10 - M19.011) [facility] Other 03-01-2023 Evaluation note* Encounter Date Diagnosis [...] unfortunately her daughter, who would be her coffee machine technician, is having some medical issues and she [...] pain of right shoulder (ICD-10 - M25.511) [facility] Other 11-30-2022 Evaluation note* Encounter Date Diagnosis [...] unfortunately her daughter, who would be her coffee machine technician, is having some medical issues and she [...] a trial of 3 months or longer. [facility] Other 11-28-2022 Evaluation note* Encounter Date Diagnosis Assessment Notes Treatment Notes Treatment Clinical Notes May, Primary osteoarthritis of both knees (ICD-10 - M17.0) [facility] Other 03-23-2022 Evaluation note* Encounter Date Diagnosis [...] as documented in the electronic medical record. [facility] Other 09-22-2021 Evaluation note* Encounter Date Diagnosis [...] Other specified postprocedural states (ICD-10 - Z98.890) [facility] Other 10-01-2013 History general Narrative - Reported* Type Description Date Medical History right hip fracture S/P SCREW FIX ATION Medical History HTN Medical History HLD Surgical History RIGHT HIP FRACTURE S/P SCREW FI XATION ([facility]) 04/2013 Surgical History S/P HYSTERECTOMY Surgical History S/P CHOLECYSTECTOMY Surgical History femoral head fixation Hospitalization History ABOVE [facility] Other Chief complaint+Reason for visit Narrative* Chief Complaint op sp rt shoulder pa in lt knee pain req injection feeling not right after procedure Reason for Visit Osteoarthritis of le ft knee Osteoarthritis of right knee Osteoarthritis of right shoulder [facility] Work Phone: Chief complaint+Reason for visit Narrative* Chief Complaint feeling not right af ter procedure LILIBETH PT OP SP RT KNEE PAIN M17.12 - Unilateral primary osteoarthritis, left k Reason for Visit Osteoarthritis of le ft knee Osteoarthritis of right knee Osteoarthritis of right shoulder [facility] Work Phone: Evaluation noteNortGigaclear Other Evaluation noteNo assessment information available [facility] Work Phone: Evaluation noteNo InformationNort [employer] Other Evaluation note* Diagnosis Chronic pain disorder- Primary Chronic pain syndrome Controlled type 2 diabetes mellitus with diabetic polyneuropathy, 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 (CMS/HCC) documented in this encounter [facility] HealthcareEvaluation note* Diagnosis Onset Date Resolution Status Osteoarthritis of left knee acute Osteoarthritis of right knee acute Osteoarthritis of right shoulder chronic [facility] Work Phone: Evaluation note* Diagnosis GERD without esophagitis Esophageal reflux documented in this encounter [facility] HealthcareEvaluation note* Diagnosis Chronic pain [...] Chronic pain syndrome documented in this encounter [facility] HealthcareEvaluation note* Diagnosis Chronic pain [...] Reactive depression (CMS/HCC) documented in this encounter [facility] HealthcareEvaluation note* Diagnosis Chronic pain [...] Dermatophytosis of nail documented in this encounter [facility] HealthcareEvaluation note* Diagnosis Chronic pain [...] 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 ([facility]) History of UTI Dysuria Medicare annual wellness visit, subsequent Chronic pain of right knee- Primary Controlled type 2 diabetes mellitus with diabetic polyneuropathy, 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 ([facility]) Chronic pain disorder Chronic pain syndrome Chronic pain disorder Chronic pain syndrome [facility] Diagnosis Chronic pain disorder- Primary Chronic pain syndrome Controlled type 2 diabetes mellitus with diabetic polyneuropathy, 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 ([facility]) Encounter for immunization Essential hypertension ([facility]) Unspecified essential hypertension Controlled type 2 diabetes mellitus with diabetic polyneuropathy, 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 ([facility])- Primary Chronic pain disorder Chronic pain syndrome Essential hypertension ([facility]) Unspecified essential hypertension GERD without esophagitis Esophageal reflux Chronic pain disorder- Primary Chronic pain syndrome Controlled type 2 diabetes mellitus with diabetic polyneuropathy, 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 ([facility]) Chronic pain disorder- Primary Chronic pain syndrome Screen for colon cancer Special screening for malignant neoplasms, colon Controlled type 2 diabetes mellitus with diabetic polyneuropathy, 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 ([facility]) History of UTI Dysuria Medicare annual wellness visit, subsequent Chronic pain of right knee- Primary Controlled type 2 diabetes mellitus with diabetic polyneuropathy, 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 ([facility]) Chronic pain disorder Chronic pain syndrome GERD without esophagitis Esophageal reflux [facility]* Diagnosis Diabetic polyneuropathy associated with type 2 diabetes mellitus ([facility])- Primary Onychomycosis Dermatophytosis of nail documented in this encounter [facility]* Diagnosis Reactive depression ([facility])- Primary Anxiety Anxiety state, unspecified [facility]* Diagnosis Chronic pain disorder- Primary Chronic pain syndrome Controlled type 2 diabetes mellitus with diabetic polyneuropathy, 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 ([facility]) Encounter for immunization Essential hypertension ([facility]) Unspecified essential hypertension Controlled type 2 diabetes mellitus with diabetic polyneuropathy, 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 ([facility])- Primary Chronic pain disorder Chronic pain syndrome Essential hypertension ([facility]) Unspecified essential hypertension GERD without esophagitis Esophageal [...] of insulin (CMS/HCC) documented in this encounter [facility] HealthcareEvaluation note* Diagnosis Chronic pain [...] Chronic pain syndrome documented in this encounter [facility] HealthcareEvaluation note* Diagnosis Chronic pain [...] of insulin (CMS/HCC) documented in this encounter [facility] HealthcareEvaluation note* Diagnosis Chronic pain [...] Unspecified pre-operative examination [facility] this encounter [facility] [...] Chronic pain syndrome documented in this encounter [facility] HealthcareEvaluation note* Diagnosis Chronic pain [...] Chronic pain syndrome documented in this encounter [facility] HealthcareEvaluation note* Diagnosis Chronic pain [...] Other follow-up examination documented in this encounter [facility] HealthcareEvaluation note* Diagnosis Chronic pain [...] of insulin (CMS/HCC) documented in this encounter [facility] HealthcareEvaluation note* Diagnosis Chronic pain [...] Dermatophytosis of nail documented in this encounter [facility] HealthcareEvaluation note* Diagnosis Chronic pain [...] Breast screening, unspecified documented in this encounter [facility] HealthcareEvaluation note* Diagnosis Chronic pain [...] Unspecified essential hypertension documented in this encounter [facility] HealthcareEvaluation note* Diagnosis Chronic pain [...] Chronic pain syndrome documented in this encounter [facility] HealthcareEvaluation note* Diagnosis Chronic pain [...] Unspecified essential hypertension documented in this encounter [facility] HealthcareHistory general Narrative - [facility] MetaMaterials Other Hospital course Narrative No data available for this section [facility] No data available for this section [facility] Additional Instructions Continue current meds Follow-up with your private physician [facility] symptoms are [facility] Work [facility]: Progress note No data available for this section [facility] (narrative)No reason for referral information available[facility] Work Phone: Summary Purpose Family History No [...] 3:09pm Primary osteoarthritis of left knee Febr ry 2024 3:09pm Primary osteoarthritis of right shoulder [...] 12:54pm Primary osteoarthritis of right knee Apr id 2024 4:22pm Status post total right knee [...] Admit Date Primary osteoarthritis of right knee [facility] 2024 12:54pm Status post total right knee replacement September 22, 2024 12:54pm Primary osteoarthritis of right knee Apr id 2024 4:22pm Status post total right knee [...] Date Primary osteoarthritis of right knee Apr id 2024 4:22pm Status post total right knee replacement October 20, 2024 4:22pm Primary osteoarthritis of right knee December 01, 2024 4:05pm Status post total right knee replacement December 01, 2024 4:05pm Impacted cerumen of left ear December 21 11:34am UTI (urinary tract infection) December 21, [...] Impacted cerumen of left ear December 21 11:34am UTI (urinary tract infection) December 21, 2024 11:34am Primary osteoarthritis of left knee January 26, 2025 1:04pm Primary osteoarthritis of right knee Jan 1:04pm Primary osteoarthritis of right shoulder January 26, 2025 1:04pm Status post total right knee replacement January 26, 2025 1:04pm Chief Complaint Admit Date dysuria, left ear pain December 21, 2024 11 :34am R30.0 December 21, 2024 11:39 am OP SP RTKA PAIN January 26, 2025 1:04 pm s/p RTK 09/09March 04, 2025 4: 15pm Unknown March 04, 2025 8: 15pm Reason for Visit Admit Date Impacted cerumen of left ear December 21 11:34am UTI (urinary tract infection) December 21, 2024 11:34am Primary osteoarthritis of left knee January 26, 2025 1:04pm Primary osteoarthritis of right knee Jan 1:04pm Primary osteoarthritis of right shoulder January 26, 2025 1:04pm Status post total right knee replacement January 26, 2025 1:04pm Chief Complaint Admit Date dysuria, left ear pain December 21, 2024 11 :34am R30.0 December 21, 2024 11:39 am OP SP RTKA PAIN January 26, 2025 1:04 pm Unknown March 04, 2025 8: 15pm s/p RTK 09/09March 13, 2025 3: 15pm 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, right March 18, 2025 9:22am 6-8 WEEKS March 18, 2025 12:45pm Reason for Visit Admit Date Impacted cerumen of left ear December 21, 2 025 11:34am UTI (urinary tract infection) December 21, 2024 11:34am Primary osteoarthritis of left knee January 26, 2025 1:04pm Primary osteoarthritis of right knee Quique y 2024 1:04pm Primary osteoarthritis of right shoulder January 26, 2025 1:04pm Status post total right knee replacement January 26, 2025 1:04pm Avulsion fracture March 18, 2025 12:45pm Primary osteoarthritis of left knee Sept emb2024 12:45pm Primary osteoarthritis of right knee Sep 2024 12:45pm Primary osteoarthritis of right shoulder March 18, 2025 12:45pm Status post total right knee replacement March 18, 2025 12:45pm Chief Complaint Admit Date dysuria, left ear pain December 21, 2024 11 :34am R30.0 December 21, 2024 11:39 am OP SP RTKA PAIN January 26, 2025 1:04 pm Unknown March 04, 2025 8: 15pm 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, right March 18, 2025 9:22am 6-8 WEEKS March 18, 2025 12:45pm s/p RTK 09/09March 18, 2025 1:45pm Additional Source Comments INFORMATION SOURCE (unrecogn ized section and content) DATE CREATED AUTHOR 01/03/2018 [facility] DATE CREATED AUTHOR AUTHOR'S ORGANIZ ATION 01/09/2018 [facility] DATE CREATED AUTHOR AUTHOR'S ORGANIZ ATION 10/03/2021 [facility] DATE CREATED AUTHOR AUTHOR'S ORGANIZ ATION 02/25/2022 [facility] DATE CREATED AUTHOR AUTHOR'S ORGANIZ ATION 10/25/2023 [facility] DATE CREATED AUTHOR AUTHOR'S ORGANIZ ATION 01/15/2025 [facility] dical Specialists EPIC DATE CREATED AUTHOR AUTHOR'S ORGANIZ ATION 03/25/2025 [facility] REASON FOR VISIT (unrecogniz ed [...] 08/25/2024 Reason Comments Medicare Annual Wellness Visit [facility] Follow-up Follow [facility] from [facility] completed TCM Reason Comments Toenail Care Reason [...] Active Bhaskar Hdz APRN Emergency Provider Active Wrapper Counter Relationship Specialty Start Date End Date Zuri Hannah MD [address] [place] [address] PCP - Devoted 07/16/20 Zuri Hannah MD [address] [place] [address] PCP - General Family Medicine 12/25/22 Team [...] March 10, 2024 End: March 10, 2024 Dharmesh Boss MD Emergency Provider Active Star t: [...] Attending Provider Active Start: April 23, 2024 Wrapper Counter Relationship Specialty Start Date End Date Zuri Hannah MD [address] [place] [address] PCP - Devoted 07/16/20 Zuri Hannah MD [address] [place] [address] PCP - General Family Medicine 09/17/23 Wrapper Counter Relationship Specialty Start Date End Date Zuri Hannah MD [address] [place] [address] PCP - Devoted 07/16/20 Zuri Hannah MD [address] [place] [address] PCP - General Family Medicine 09/17/23 Wrapper Counter Relationship Specialty Start Date End Date Zuri Hannah MD [address] [place] [address] PCP - Devoted 07/16/20 Zuri Hannah MD [address] [place] [address] PCP - General Family Medicine 09/17/23 Wrapper Counter Relationship Specialty Start Date End Date Zuri Hannah MD [address] [place] [address] PCP - Devoted 07/16/20 Zuri Hannah MD [address] [place] [address] PCP - General Family Medicine 09/17/23 Wrapper Counter Relationship Specialty Start Date End Date Zuri Hannah MD [address] [place] [address] PCP - Devoted 07/16/20 Zuri Hannah MD [address] [place] [address] PCP - General Family Medicine 09/17/23 Wrapper Counter Relationship Specialty Start Date End Date Zuri Hannah MD [address] [place] [address] PCP - Devoted 07/16/20 Zuri Hannah MD [address] [place] [address] PCP - General Family Medicine 09/17/23 Wrapper Counter Relationship Specialty Start Date End Date Zuri Hannah MD [address] [place] [address] PCP - Devoted 07/16/20 Zuri Hannah MD [address] [place] [address] PCP - General Family Medicine 09/17/23 Wrapper Counter Relationship Specialty Start Date End Date Zuri Hannah MD [address] [place] [address] PCP - Devoted 07/16/20 Zuri Hannah MD [address] [place] [address] PCP - General Family Medicine 09/17/23 Wrapper Counter Relationship Specialty Start Date End Date Zuri Hannah MD [address] [place] [address] PCP - Devoted 07/16/20 Zuri Hannah MD [address] [place] [address] PCP - General Family Medicine 09/17/23 Wrapper Counter Relationship Specialty Start Date End Date Zuri Hannah MD [address] [place] [address] PCP - Devoted 07/16/20 Zuri Hannah MD [address] [place] [address] PCP - General Family Medicine 09/17/23 Team [...] July 23, 2024 End: July 23, 2024 Wrapper Counter Relationship Specialty Start Date End Date Zuri Hannah MD [address] [place] [address] PCP - Devoted 07/16/20 Zuri Hannah MD [address] [place] [address] PCP - General Family Medicine 09/17/23 Wrapper Counter Relationship Specialty Start Date End Date Zuri Hannah MD [address] [place] [address] PCP - Devoted 07/16/20 Zuri Hannah MD [address] [place] [address] PCP - General Family Medicine 09/17/23 Team Status: Inactive Member Role Status Dates Aisha Ragland PA-C Primary Care Provider Active Start: August 22, 2024 End: August 22, 2024 João Soto DO Attending Provider Active S tart: August 22, 2024 End: August 22, 2024 Wrapper Counter Relationship Specialty Start Date End Date Zuri Hannah MD [address] [place] [address] PCP - Devoted 07/16/20 Zuri Hannah MD [address] [place] [address] PCP - General Family Medicine 09/17/23 Team Status: Inactive Member Role Status Dates Aisha Ragland PA-C Primary Care Provider Active Start: August 26, 2024 End: August 26, 2024 João Soto DO Attending Provider Active S tart: August 26, 2024 End: August 26, 2024 Wrapper Counter Relationship Specialty Start Date End Date Zuri Hannah MD [address] [place] [address] PCP - Devoted 07/16/20 Zuri Hannah MD [address] [place] [address] PCP - General Family Medicine 09/17/23 Team [...] September 22, 2024 End: September 22, 2024 Wrapper Counter Relationship Specialty Start Date End Date Zuri Hannah MD [address] [place] [address] PCP - Devoted 07/16/20 Zuri Hannah MD [address] [place] [address] PCP - General Family Medicine 09/17/23 Wrapper Counter Relationship Specialty Start Date End Date Zuri Hannah MD [address] [place] [address] PCP - Devoted 07/16/20 Zuri Hannah MD [address] [place] [address] PCP - General Family Medicine 09/17/23 Wrapper Counter Relationship Specialty Start Date End Date Zuri Hannah MD [address] [place] [address] PCP - Devoted 07/16/20 Zuri Hannah MD [address] [place] [address] PCP - General Family Medicine 09/17/23 Wrapper Counter Relationship Specialty Start Date End Date Zuri Hannah MD [address] [place] [address] PCP - Devoted 07/16/20 Zuri Hannah MD [address] [place] [address] PCP - General Family Medicine 09/17/23 Wrapper Counter Relationship Specialty Start Date End Date Zuri Hannah MD [address] [place] [address] PCP - Devoted 07/16/20 Zuri Hannah MD [address] [place] [address] PCP - General Family Medicine 09/17/23 Team [...] End: December 21, 2024 BETSY Cohen RN ASSOCIATE PROFESSOR OF SOCIOLOGY-C Attending Provider Active Start: December 21 End: [...] Provider Active S tart: December 22, 2024 Wrapper Counter Relationship Specialty Start Date End Date Zuri Hannah MD [address] [place] [address] PCP - Devoted 07/16/20 Zuri Hannah MD [address] [place] [address] PCP - General Family Medicine 09/17/23 Wrapper Counter Relationship Specialty Start Date End Date Zuri Hannah MD [address] [place] [address] PCP - Devoted 07/16/20 Zuri Hannah MD [address] [place] [address] PCP - General Family Medicine 09/17/23 Team [...] January 26, 2025 End: January 26, 2025 Wrapper Counter Relationship Specialty Start Date End Date Zuri Hannah MD [address] [place] [address] PCP - Devoted 07/16/20 Zuri Hannah MD [address] [place] [address] PCP - General Family Medicine 09/17/23 Wrapper Counter Relationship Specialty Start Date End Date Zuri Hannah MD [address] [place] [address] PCP - Devoted 07/16/20 Zuri Hannah MD [address] [place] [address] PCP - General Family Medicine 09/17/23 Team Status: Active Member Role Status Dates Aisha Ragland PA-C Primary Care Provider Active Start: March 04, 2025 João Soto , DO Attending Provider Active S tart: March 04, 2025 Team Status: Inactive Member Role Status Dates Alvin Benito , DO Attending Provider Active S tart: March 04, 2025 End: March 04, 2025 Team Status: Active Member Role Status Dates Aisha Ragland PA-C Primary Care Provider Active Start: March 13, 2025 João Soto , DO Attending Provider Active S tart: March 13, 2025 Team Status: Active Member Role Status Dates João Soto , DO Attending Provider Active S tart: March 18, 2025 Team Status: Inactive Member Role Status Dates João Soto , DO Attending Provider Active S tart: March 18, 2025 End: March 18, 2025 Aisha Ragland PA-C Primary Care Provider Active Start: March 18, 2025 End: March 18, 2025 Team Status: Inactive Member Role Status Dates João Soto , Attending Provider Active S tart: March 18, 2025 End: March 18, 2025 Team Status: Active Member Role Status Dates Aisha Ragland PA-C Primary Care Provider Active Start: March 18, 2025 João Soto , DO Attending Provider Active S tart: March 18, 2025 Wrapper Counter Relationship Specialty Start Date End Date Zuri Hannah MD [address] [place] [address] PCP - Devoted 07/16/20 Zuri Hannah MD [address] [place] [address] PCP - General Family Medicine 09/17/23 Goals [...] BE BASED ON THE PRIMARY CLINICAL RECORDS. [facility] [employer] [facility]. provides no warranty or guarantee of the accuracy or completeness of information in this document.
== END 2025-03-26 10:00 | disposition home or self-care (01) ==
LOC: MAMMO 09:59
PROVIDERS: PCP Physician Assistant; Visit Provider Physician Assistant
DX: Z12.31 Encounter for screening mammogram for malignant neoplasm of breast (principal); Z80.3 Family history of malignant neoplasm of breast; R92.8 Other abnormal and inconclusive findings on diagnostic imaging of breast
CPT/HCPCS: 77067

== ENCOUNTER 2025-04-21 10:49 | Outpatient (OUT) | payer OTHER, MEDICARE, SELFPAY ==
--- OUTSIDE RECORDS SUMMARY | 2019-01-23 11:00 | XMS_ITS | Continuity of Care Document ---
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 Name Role Phone Bhaskar Weathers DDS Unavailable Unavail able Allergies, Adverse Reactions, Alerts Substance Reaction Status Criticality tioconazole Active No Information tramadol Active No Information Medications Medication Instructions Dosage Effective Dates (start - stop) Status Comments [place] 5 mg-325 mg tablet take 1 tablet [...] Rt 019 Nutrit Couns For Control Of [place] Dis Jan Oral Hygiene Instruction Comp Oral Eval New/estab Patient 2018 Oral Hygiene Instruction Intraoral-complete Series (bw) Advance Directives Directive Yes / No Effective Date File Name No Information Encounters Encounter Description Practice Location Reason(s) For Visit Diagnoses Date Provider Providers Copied on Encounter [facility], [address] [place] [address], [id number], tel:[phone] Dental Clinic extraction (chief complaint) Encounter for screening for dental disorders Jasiel Muro. [address] [place] [address], [id number], . tel:[phone] 9362 [facility], [address] [place] [address], [id number], tel:[phone] Dental Clinic Encounter for screening for dental disorders Roman Ramirez. [address] [place] [address], [id number], . tel:[phone] Family History Family Member Type Diagnosis Age At Onset Mother Problem (finding) dementia Father Problem (finding) Heart Trouble Payers Payer name Insurance type Covered libertarian ID Alma long(s) Bryan Roberto 17 [id number] Social History Type Description Quantity Date Captured Comments Alcohol Use Details Unknown Caffeine Use Details Unknown Tobacco Use Status Current non-smoker 21 Smoking Status Never smoker Non-Smoking Tobacco Use Details : No Details Available : No Details Available Sex Female Sexual Orientation Straight or heterosexual Gender Identity Female Vital Signs Date / Time: Height Weight [...]
--- OUTSIDE RECORDS SUMMARY | 2025-04-21 10:51 | XMS_ITS ---
Author Organization [facility] Address [address] [place] [address] Care Team Providers Care Seamless Tube Mill Operator Name Role Phone Zuri Hannah MD Unavailable Zuri Hannah MD Primary Care Provider [phone] Chronic Care Management (CCM) Status:Enrolled (Active) Start date:11/30/2022 Enrollment date:11/30/2022 Overview 09/06/23, 1:44 PM - Xochitl Wang LPN- Patient gives verbal consent to be enrolled in CCM Program andunderstands there could be a bill for this service. Case Team Name Relationship Phone Xochitl Wang LPN(Responsible Staff) Clinical Advoc ate [phone] Continued Care and Services Coordination
--- OUTSIDE RECORDS SUMMARY | 2025-04-21 10:51 | XMS_ITS | Encounter Summary ---
Author Organization [facility] Address [address] [place] [address] Care Team Providers Care Top Closer Name Role Phone Zuri Hannah MD Unavailable [phone] Zuri Hannah MD Primary Care Provider [phone] Encounter Details Date Type Department Care Team (Late Contact Info) Description 01/21/2025 [facility] [address] [place] [id number] Aisha Rhdoes PA [address] [place] [address] POCT glycated hemoglobin, total docked device, Comprehensive [...] Department Care Team (Late Contact Info) Description 04/28/2025 3:20 PM EDT Office Visit [facility] Medicine [address] [place] [phone] Aisha Rhodes PA [address] [place], [place] [id number] documented as of this encounter Visit Diagnoses Not on filedocumented in this encounter Additional Health Concerns Assessment Noted Time PHQ-9 Depression Total Score: 0 03/27/20 23 2:00 PM EDT documented as of this encounter Care Teams Top Closer Relationship Specialty Start Date End Date Zuri Hannah MD [address] [place] [address] PCP - Devoted 07/16/20 Zuri Hannah MD [address] [place] [address] PCP - General Family Medicine 09/17/23 documented as of this encounter
--- OUTSIDE RECORDS SUMMARY | 2025-04-21 10:51 | XMS_ITS | Encounter Summary ---
Author Organization [facility] Address [address] [place] [address] Care Team Providers Care Director Of [facility] Name Role Phone Zuri Hannah MD Unavailable [phone] Zuri Hannah MD Primary Care Provider [phone] Zuri Hannah MD Primary Care Provider [phone] Encounter Details Date Type Department Care Team (Late st Contact Info) Description 12/25/2022 Abstract [facility] [address] [place] [phone] Zuri Hannah MD [address] [place] [address] Social History Tobacco Use Types Packs/Day Years [...] Care Team (Late st Contact Info) Description 04/28/2025 3:20 PM EDT Office Visit [facility] [address] [place] [phone] Aisha Rhodes PA [address] [place] [address] documented as of this encounter Visit Diagnoses Not on filedocumented in this encounter Care Teams Director [facility] Relationship Specialty Start Date End Date Zuri Hannah MD [address] [place] [address] PCP - Devoted 07/16/20 Zuri Hannah MD [address] [place] [address] PCP - General Family Medicine 12/25/22 09/16/23 Zuri Hannah MD [address] [place] [address] PCP - General Family Medicine 09/17/23 documented as of this encounter
--- OUTSIDE RECORDS SUMMARY | 2025-04-21 10:51 | XMS_ITS | Encounter Summary ---
Author Organization [facility] Address [address] [place] [address] Care Team Providers Care Manufacturing Operator Name Role Phone Zuri Hannah MD Unavailable [phone] Zuri Hannah MD Primary Care Provider [phone] Zuri Hannah MD Primary Care Provider [phone] Encounter Details Date Type Department Care Team (Late st Contact Info) Description 05/14/2023 Clinisync Result Encounter [facility] Department Unsolicited Aisha Ragland PA [address] [place] [address] Social History Tobacco Use Types Packs/Day Years [...] [facility] [address] [place] [address] Aisha Ragland PA [address] [place] [address] documented as of this encounter Procedures Procedure Name Priority Date/Time Associated Diagnosis Comments MM TOMOSYNTHESIS SCREENING BI 05/14/2023 1:12 PM EDT documented in this encounter Results * MM TOMOSYNTHESIS SCREENING BI (05/14/2023 1:12 PM EDT) Anatomical Region Laterality Modality Other 05/14/2023 1:12 PM EDT Narrative 05/14/2023 1:12 [place] [address] Mammography Report Signed Patient: Nata Pete MR#: [id number] : 1945 Acct:[id number] Age/Sex: 78 / F ADM Date: 05/10/23 Loc: MAMMO Attending Dr: AISHA RAGLAND Ordering Physician: AISHA RAGLAND Results: Date of Service: 05/10/23 Follow Up: Procedure(s): MM tomosynthesis screening BI Accession Number(s): [id number] cc: TITUS HANNAH ; AISHA RAGLAND Patient: NATA PETE Exam Date: 05/10/2023 : 1945 Gender:F Ordering : MRS. AISHA RAGLAND Admission #: [id number] Family : DR. TITUS HANNAH M.D. Order #: [id number] CLICK HERE TO VIEW EXAM RADIOLOGY REPORT [...] breast cancer at age 72. LOCATION: [facility] BREAST COMPOSITION: Scattered areas fibroglandular density. [...] M.D. Signed By: 05/14/231312 DD/ 11 TD/TT: Mail Handler Sorter: Procedure Note Radiology, Radiologist, MD - 05/14/2023 [place] [address] Mammography Report Signed Patient: Nata Pete AMR#: [id number] : 1945cct:[id number] Age/Sex: 78 / FADM Date: 05/10/23 Loc: MAMMO Attending Dr: AISHA RAGLAND Ordering Physician: Monico RAGLANDults: Date of Service: 05/10/23Follow Up: Procedure(s): MM tomosynthesis screening BI Accession Number(s): [id number] cc: TITUS HANNAH ; AISHA RAGLAND Patient: NATA PETE Exam Date: 05/10/2023 : 1945 Gender:F Ordering : AISHA OBIE Admission #: [id number] Family : DR. TITUS HANNAH M.D. Order #: [id number] CLICK HERE TO VIEW EXAM RADIOLOGY REPORT [...] breast cancer at age 72. LOCATION: [facility] BREAST COMPOSITION: Scattered areas fibroglandular density. [...] M.D. Signed By:05/14/23 1313 DD/ 131 TD/TT: Mail Handler Sorter: us Aisha [facility] Final Res ult documented in this encounter Visit Diagnoses Not on filedocumented in this encounter Additional Health Concerns Assessment Noted Time PHQ-9 Depression Total Score: 0 03/27/20 23 2:00 PM EDT documented as of this encounter Care Teams Manufacturing Operator Relationship Specialty Start Date End Date Zuri Hannah MD [address] [place] [address] PCP - Devoted 07/16/20 Zuri Hannah MD [address] [place] [address] PCP - General Family Medicine 12/25/22 09/16/23 Zuri Hannah MD [address] [place] [address] PCP - General Family Medicine 09/17/23 documented as of this encounter
--- OUTSIDE RECORDS SUMMARY | 2025-04-21 10:51 | XMS_ITS | Encounter Summary ---
Author Organization [facility] Address [address] [place] [address] Care Team Providers Care [employer] Officer Name Role Phone Zuri Hannah MD Unavailable [phone] Zuri Hannah MD Primary Care Provider [phone] Encounter Details Date Type Department Care Team (Late Contact Info) Description 04/01/2025 Orders Only [facility] [address] [place] [phone] Rachel Velazquez Breast screening; Abnormal mammogram of right breast Social History Tobacco Use Types Packs/Day Years [...] Description 04/28/2025 3:20 PM EDT Office Visit [facility] [address] [place] [address] Aisha Rhodes PA [address] [place] [address] documented as of this encounter Procedures Procedure Name Priority Date/Time Associated Diagnosis Comments BI MAMMOGRAM SCREENING TOMOSYNTHESIS BILATERAL Routine 04/01/2025 11:01 AM EDT documented in this encounter Results * (ABNORMAL) Bilateral screening mammogram with tomosynthesis (04/01/2025 11:01 AM EDT) Anatomical Region Laterality Modality Breast Bilateral Mammography us Aisha PEREZ IMG BI PROCEDURES Final Res ult documented in this encounter Visit Diagnoses Diagnosis Breast screening Breast screening, unspecified Abnormal mammogram of right breast documented in this encounter Additional Health Concerns Assessment Noted Time PHQ-9 Depression Total Score: 0 03/27/20 23 2:00 PM EDT documented as of this encounter Care Teams [employer] Relationship Specialty Start Date End Date Zuri Hannah MD [address] [place] [address] PCP - Devoted 07/16/20 Zuri Hannah MD [address] [place] [address] PCP - General Family Medicine 09/17/23 documented as of this encounter
--- OUTSIDE RECORDS SUMMARY | 2025-04-21 10:51 | XMS_ITS | Encounter Summary ---
Author Organization [facility] Address [address] [place] [address] Care Team Providers Care Oracle Engineer Name Role Phone Zuri Hannah MD Unavailable Zuri Hannah MD Primary Care Provider [phone] Zuri Hannah MD Primary Care Provider [phone] Encounter Details Date Type Department Care Team (Late Contact Info) Description 04/06/2023 [facility] [address] [place] [address] Zuri Hannah MD [address] [place] [address] Social History Tobacco Use Types Packs/Day Years [...] Description 04/28/2025 3:20 PM EDT [facility] [address] [place] [address] Aisha Rhodes PA [address] [place], [place] [id number] documented as of this encounter Visit Diagnoses Not on filedocumented in this encounter Additional Health Concerns Assessment Noted Time PHQ-9 Depression Total Score: 0 03/27/20 23 2:00 PM EDT documented as of this encounter Care Teams Oracle Engineer Relationship Specialty Start Date End Date Zuri Hannah MD [address] [place] [address] PCP - Devoted 07/16/20 Zuri Hannah MD [address] [place] [address] PCP - General Family Medicine 12/25/22 09/16/23 Zuri Hannah MD [address] [place] [address] PCP - General Family Medicine 09/17/23 documented as of this encounter
--- OUTSIDE RECORDS SUMMARY | 2025-04-21 10:51 | XMS_ITS | Clinical Summary ---
Author Organization [facility] Address [address] [place] [address] Care Team Providers Care Combatant Diver Officer Name Role Phone Zuri Hannah MD Unavailable Zuri Hannah MD Primary Care Provider [phone] Allergies Active Allergy Reactions Criticality Noted Date Comments Bee Pollen Unknown 12/07/2022 Bee Venom Shortness of breath High 12/07/2022 Miconazole Unknown 12/07/2022 Tramadol Unknown 12/07/2022 Medications Elderberry 575 MG/5ML syrup Active Blood Glucose Monitoring Suppl (ONE TOUCH ULTRA 2) w/Device kit 2 Active CeleBREX 100 MG capsule 1 (one) time each day at the same time Active Lancets (HashParadeTouch Delica Plus Hemnfo90K) misc 2 Active omega-3 (Fish Oil) 1200 MG capsule 1 capsule 1 (one) time each day at the same time Active lidocaine (Lidoderm) 5 % patch Apply 1 patch topically Daily Remove & discard patch within 12 hours or as directed by MD. 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, without long-term current use of insulin (HCC) TAKE 1 TABLET BY MOUTH EVERY DAY 90 tablet 3 4 Active glucose blood (HashParadeTouch Ultra) test stripIndications :Controlled type 2 diabetes mellitus with diabetic polyneuropathy, without long-term current use of insulin (HCC) USE DIRECTED ONCE DAILY 100 each 11 5 Active glucose blood (OneTouch Ultra) test stripIndications :Controlled type 2 diabetes mellitus with diabetic polyneuropathy, without long-term current use of insulin (HCC) USE DIRECTED ONCE DAILY 100 each 11 4 Active LORazepam (Ativan) 0.5 MG tabletIndication s:Anxiety Take 1 tablet (0.5 mg) by mouth 2 (two) times a day as needed for anxiety 10 tablet 5 Active metFORMIN (Glucophage) 500 MG tabletIndication s:Controlled type 2 diabetes mellitus with diabetic polyneuropathy, without long-term current use of insulin (HCC) Take 1 tablet (500 mg) by mouth Daily 90 tablet 3 5 Active simvastatin (Zocor) 40 MG tabletIndication s:Hypercholester emia,Essential hypertension Take 1 tablet (40 mg) by mouth 1 (one) time each day at the same time 90 tablet 3 5 01/03/20 26 Active famotidine (Pepcid) 20 MG tabletIndication s:GERD without esophagitis Take 1 tablet (20 mg) by mouth in the morning. 90 tablet 3 5 Active atenolol (Tenormin) 25 MG tabletIndication s:Essential hypertension Take 1/2 (one-half) tablet by mouth once daily 45 tablet 3 5 Active lisinopril 20 MG tabletIndication s:Essential hypertension TAKE 1/4 (ONE-FOURTH) TABLET BY MOUTH TWICE DAILY 45 tablet 3 5 Active HYDROcodone-acet aminophen ([place]) 5-325 MG tabletIndication s:Chronic pain disorder Take 1 tablet by mouth 3 (three) times a day as needed for severe pain 90 tablet 5 Active HYDROcodone-acet aminophen ([place]) 5-325 MG tabletIndication s:Chronic pain disorder Take 1 tablet by mouth in the morning and 1 tablet in the evening and 1 tablet before bedtime. 90 tablet 5 03/26/20 25 Discontin ued(Reord er) HYDROcodone-acet aminophen ([place]) 5-325 MG tabletIndication s:Chronic pain disorder Take 1 tablet by mouth in the morning and 1 tablet in the evening and 1 tablet before bedtime. Do not start before March 28, 2025. 90 tablet 03/27/20 25 Discontin ued(Enter ed in error) Active Problems Problem Noted Date Diagnosed Date Abnormal mammogram of right breast 03/31/2025 Bronchitis 01/13/2025 Hospital discharge follow-up 10/25/2024 Generalized [...] 3 months Controlled type 2 diabetes m ellitus with diabetic polyneuropathy, without long-term current use [...] callosities 12/07/2022 Degenerative joint disease involving multiple lai ints 12/07/2022 Essential hypertension 12/07/2022 Assessment & [...] Encounters Date Type Department Care Team Description 04/02/2025 Results Follow-Up [facility] [address] [place] [address] Aisha Ragland PA Bilateral screening mammogram with tomosynthesis 04/01/2025 [facility] [address] [place] [address] Rachel Velazquez Breast screening; Abnormal mammogram of right breast 03/31/2025 Results Follow-Up [facility] [address] [place] [address] Aisha Ragland PA Bilateral screening mammogram 03/27/2025 Patient Outreach [facility] [address] [place] [address] Xochitl Wang, COAGULANT DIPPER 03/26/2025 Clinisync Result Encounter [facility] External Department Unsolicited Aisha Ragland PA 03/25/2025 [facility] [address] [place] [address] Xochitl Wang, COAGULANT DIPPER 03/19/20[facility] [address] [place] [address] Zuri Hannah MD Essential hypertension 03/13/2025 Patient Outreach [facility] [address] [place] [address] Xochitl Wang, COAGULANT DIPPER 03/06/2025 Patient Outreach [facility] [address] [place] [address] Aye Taylor LSW 03/04/2025 Clinisync Result Encounter [facility] External Department Unsolicited Provider, Generic External Data 02/27/2025 Refill [facility] [address] [place] [address] Erin Azar MA Chronic pain disorder 02/26/2025 Patient Outreach [facility] [address] [place] [address] Xochitl Wang, COAGULANT DIPPER 02/06/2025 Refill [facility] [address] [place] [address] Zuri Hannah MD Essential hypertension 01/29/2025 Patient Outreach [facility] [address] [place] [address] Maggi Marquez LPN 01/21/2025 Results Follow-Up [facility] [address] [place] [address] Aisha Ragland PA POCT glycated hemoglobin, total docked device, Comprehensive metabolic panel, CBC and differential from Last 3 Months Immunizations Immunization Administration [...] 04/28/2025 3:20 PM EDT Office Visit [facility] [place] [facility] [address] [place] [address] Aisha Ragland PA [address] [place] [address] Health Maintenance Due Date Last Done Comments Diabetes: Retinopathy Screening 12/10/2023 12/09/2021, 09/03/2020, 01/05/2020 Diabetes: Urine Protein Screening 10/17/2024 10/18/2023, 08/15/2023, 08/14/2023 (Manually Satisfied by [employer]) Influenza Vaccine (#1) 2025 , 03/27/2023, 2022, Additional history exists Diabetes: Hemoglobin A1C 04/15/2025 025, 08/21/2024, 04/24/2024, Additional history exists Medicare Annual Wellness (AWV) 10/14/2025 0 10/14/2024, 10/18/2023, 11/27/2022, Additional history exists Colorectal Cancer Screening Discontinued FIT-DNA Discontinued 07/20/2020, 07/20/2020 Pneumococcal Vaccine: 65+ Years Completed 03/27/2023, 09/28/2020, 06/27/2017 CT Colonography Discontinued Colonoscopy Discontinued FIT Discontinued FOBT Discontinued Sigmoidoscopy Discontinued Procedures Procedure Name Priority Date/Time Associated Diagnosis Comments BI MAMMOGRAM SCREENING TOMOSYNTHESIS BILATERAL Routine 04/01/2025 11:01 AM EDT BI MAMMOGRAM SCREENING BILATERAL 03/26/2025 3:55 PM EDT URINE CULTURE - [facility] Routine 03/04/2025 8:15 PM EDT POCT GLYCATED HEMOGLOBIN, TOTAL Routine 01/13/2025 3:46 [...] Relevant to Health Maintenance Results * (ABNORMAL) Bilateral screening mammogram with tomosynthesis (04/01/2025 11:01 AM EDT) Anatomical Region Laterality Modality Breast Bilateral Mammography us Aisha PEREZ IMG BI PROCEDURES Final Res ult * Bilateral screening mammogram (03/26/2025 3:55 PM EDT) Anatomical Region Laterality Modality Breast Bilateral Mammography 03/26/2025 3:55 PM EDT Narrative 03/26/2025 3:56 PM EDT [address] [address] Mammography Report Signed Patient: NATA PETE MR#: [id number] : 1945 Acct:[id number] Age/Sex: 79 / F ADM Date: 03/26/25 Loc: MAMMO Attending Dr: AISHA RAGLAND Ordering Physician: AISHA RAGLAND Results: Date of Service: 03/26/25 Follow Up: Procedure(s): MM screening mammo BI Accession Number(s): [id number] cc: AISHA RAGLAND Patient Name: NATA PETE MR#: [id number] : 1945 Exam Date: 03/26/2025 Ordering Doctor: MRS. AISHA RAGLAND RADIOLOGY REPORT PROCEDURE: MM SCREENING MAMMO BI COMPARISON: MM TOMOSYNTHESIS SCREENING BI, 05/10/2023. MG MAMM SCREEN 3D LISA CAD, 02/23/2022. MG MAMM SCREEN 3D LISA CAD, 11/04/2020. MG MAMM LISA SCRN W CAD DIG, 03/12/2014. INDICATIONS: Screening Calculator Name [facility] Breast Cancer Risk Assessment Tool 5 Year Breast Cancer Risk 1.60% Lifetime Breast Cancer Risk 3.00% Personal Breast Cancer No Personal Ovarian Cancer No Treatments None Family Cancers Aunt-paternal with breast cancer at age 70. LOCATION: [facility] BREAST COMPOSITION: There are scattered areas of fibroglandular density. FINDINGS: DIAGNOSTIC CATEGORY 0--INCOMPLETE: NEED ADDITIONAL IMAGING EVALUATION. RIGHT BREAST: Focal asymmetry retroareolar region of the right breast. LEFT BREAST: No significant suspicious finding. RECOMMENDATIONS: ADDITIONAL MAMMOGRAPHIC VIEWS REQUIRED: RIGHT BREAST - spot-compression/true lateral views, possible ultrasound recommended. Dictated by: Dedrick Arroyo DO on 03/26/2025 at 15:54 Approved by: Dedrick Arroyo DO on 03/26/2025 at 15:55 Dictated By: Dedrick Arroyo M.D. Signed By: 03/26/25 1556 DD/ 155 TD/TT: Immigration Investigator: Procedure Note Radiology, Radiologist, MD - 03/26/2025 [place] [address] Mammography Report Signed Patient: NATA PETE AMR#: [id number] : 1945cct:[id number] Age/Sex: 79 / FADM Date: 03/26/25 Loc: MAMMO Attending Dr: AISHA RAGLAND Ordering Physician: Monico RAGLANDults: Date of Service: 03/26/25Follow Up: Procedure(s): MM screening mammo BI Accession Number(s): [id number] cc: AISHA RAGLAND Patient Name: NATA PETE MR#: [id number] : 1945 Exam Date: 03/26/2025 Ordering Doctor: MRS. AISHA RAGLAND RADIOLOGY REPORT PROCEDURE: MM SCREENING MAMMO BI COMPARISON: MM TOMOSYNTHESIS SCREENING BI, 05/10/2023. MG MAMM CTFMSM2V LISA CAD, 02/23/2022. MG MAMM SCREEN 3D LISA CAD, 11/04/2020. MG MAMM BILSCRN W CAD DIG, 03/12/2014. INDICATIONS: Screening Calculator Name NCI Breast Cancer Risk Assessment Tool 5 Year Breast Cancer Risk 1.60% Lifetime Breast Cancer Risk 3.00% Personal Breast Cancer No Personal Ovarian Cancer No Treatments None Family Cancers Aunt-paternal with breast cancer at age 70. LOCATION: [facility] BREAST COMPOSITION: There are scattered areas of fibroglandulardensity. FINDINGS: DIAGNOSTIC CATEGORY 0--INCOMPLETE: NEED ADDITIONAL IMAGING EVALUATION. RIGHT BREAST: Focal asymmetry retroareolar region of the right breast. LEFT BREAST: No significant suspicious finding. RECOMMENDATIONS: ADDITIONAL MAMMOGRAPHIC VIEWS REQUIRED: RIGHT BREAST -spot-compression/true lateral views, possible ultrasound recommended. Dictated by: Dedrick Arroyo DO on 03/26/2025 at 15:54 Approved by: Dedrick Arroyo DO on 03/26/2025 at 15:55 Dictated By: Dedrick Arroyo M.D. Signed By:03/26/25 1556 DD/ 1555 TD/TT: Immigration Investigator: Aisha PEREZ [facility] BI PROCEDURES Final Res ult * (ABNORMAL) URINE CULTURE - [facility] (03/04/2025 8:15 PM EDT) [facility] URINE CULTURE - [facility] Urine Culture - [facility] Testing performed at [facility] URINE CULTURE - [facility] [address] [place] [address] [facility] URINE [facility]ULTURE - [facility] O:ESCCOL Isolated [facility] URINE CULTURE - [facility] Urine Culture - FR Rydal Count [facility] URINE CULTURE - [facility] >100,000 CFU/ml [facility] URINE CULTURE - [facility] Organism: 1.1 Antibiotic Interpretation MI Status [facility] URINE CULTURE - [facility] Amikacin S F(S) [facility] URINE CULTURE - [facility] Amoxicillin/Clavul anate S F(S) [facility] URINE CULTURE - [facility] Ampicillin R F(R) [facility] URINE CULTURE - [facility] Aztreonam S F(S) [facility] URINE CULTURE - [facility] Ceftazidime S F(S) [facility] URINE CULTURE - [facility] Ceftazidime/Avibac diaz S F(S) [facility] URINE CULTURE - [facility] Ceftolozane/Tazoba ctam S F(S) [facility] URINE CULTURE - [facility] Ciprofloxacin S F(S) [facility] URINE CULTURE - [facility] Ertapenem S F(S) [facility] URINE CULTURE - [facility] Gentamicin S F(S) [facility] URINE CULTURE - [facility] Levofloxacin S F(S) [facility] URINE CULTURE - [facility] Meropenem S F(S) [facility] URINE CULTURE - [facility] Meropenem/Vaborbac diaz S F(S) [facility] URINE CULTURE - [facility] Nitrofurantoin S F(S) [facility] URINE CULTURE - [facility] Tetracycline S F(S) [facility] URINE CULTURE - [facility] Tigecycline S F(S) [facility] URINE CULTURE - [facility] Tobramycin S F(S) [facility] URINE CULTURE - [facility] Ampicillin/Sulbact am S F(S) [facility] URINE CULTURE - [facility] Cefazolin S F(S) [facility] URINE CULTURE - [facility] Cefepime S F(S) [facility] URINE CULTURE - [facility] Ceftriaxone S F(S) [facility] URINE CULTURE - [facility] Cefuroxime S F(S) [facility] URINE CULTURE - [facility] Piperacillin/Tazob actam S F(S) [facility] URINE CULTURE - [facility] Trimethoprim/Sulfa S F(S) [facility] 03/04/2025 8:15 PM EDT 03/04/2025 8:28 PM EDT Narrative [facility] - 03/07/2025 6:37 PM EDT us Generic External Data Provider LAB BLOOD ORDERAB LES Final Result [facility] * POCT glycated hemoglobin, total docked device (01/13/2025 3:46 PM EDT) Hemoglobin A1C 5.3 Blood 01/13/2025 3:46 PM EDT Aisha PEREZ POINT OF CARE TEST ENTER/ED [...] Information Site ID: QPT Name: [facility] Address: [address] [place] [address], [address] [place] [id number] Director: Willie Rodriguez MD Aisha PEREZ LAB URINE ORDERABLES Final Result Performing Organization Address [facility]/State/[facility] Co de Phone Number [facility] * Color Fundus Photography - [facility] - Both Eyes (12/09/2021 12:00 PM EDT) Anatomical Region Laterality Modality Head Fundus Photograp hy 12/09/2021 12:0 0 PM EDT Narrative 12/09/2021 12:00 PM EDT PERFORMED AT [facility] LOCATION:[id number] see report Procedure Note CONVERSION, GENERIC - 11/29/2022 PERFORMED AT [facility] LOCATION:[id number] see report Zuri Hannah MD OPHTH PHOTOGRAPHY Final Resul [...] with both Cologuard and colonoscopy. (Luis Fernando Trevino. et al, N Engl J Med 2014;370(14):8048-9621) The normal value (reference range) for this assay is negative. COLOGUARD RE-SCREENING RECOMMENDATION: Periodic routine colorectal cancer screening is an important part of preventive healthcare for asymptomatic persons at average risk for colorectal cancer. Following a negative Cologuard result, the [place] Cancer Society and U.S. Multi-Society Task Force screening guidelines recommend a Cologuard re-screening interval of 3 years. References: [place] [employer] Society (ACS). Colorectal cancer prevention and early detection. [place], [place]: [place] [employer]; [updated 2015Nov 06]. https://www.cancer.org/cancer/qdswx-uyqbmv-ysjvts/ypvsjakpb-puppxcbtl-pdyxthd/ac s-rec ommendations.html. Accessed March 15, 2018; Andres DK, Elenita CR, Jerrica JeffersonK, Colorectal Cancer Screening: Recommendations for Physicians and Patients from the U.S. Multi-Society Task Force on Colorectal Cancer Screening, Am J Gastroenterology 2017; 112:1116-8684. TEST TYPE: Composite algorithmic analysis of stool [...] interval of every 3 years by the [place] Cancer Society and U.S. Multi-Society Task Force. [...] can be accessed at the following location: www.Fundera.fintonic/results. Additional description of the Cologuard test process, warnings and precautions can be found at www.cologuardtest.com. Rx only. 07/20/2020 us Zuri Hannah MD LAB MOLECULAR DIAGNOSTICS ORD ERABLES Final Result [facility] from Last 3 Months or Most Recently Relevant to Health Maintenance Insurance [facility] Care Teams Combatant Diver Officer Relationship Specialty Start Date End Date Zuri Hannah MD [address] [place] [address] PCP - Devoted 07/16/20 Zuri Hannah MD [address] [place] [address] PCP - General Family Medicine 09/17/23
--- OUTSIDE RECORDS SUMMARY | 2025-04-21 10:51 | XMS_ITS | Encounter Summary ---
Author Organization [facility] Address [address] [place] [address] Care Team Providers Care Licensed Embalmer Supervisor Name Role Phone Zuri Hannah MD Unavailable Zuri Hannah MD Primary Care Provider [phone] Zuri Hannah MD Primary Care Provider [phone] Reason for Visit * Reason Comments Med Refill Encounter Details Date Type Department Care Team (Late Contact Info) Description 06/14/2023 Refill [facility] [address] [place] [address] Aisha Rhodes PA [address] [place] [address] Social History Tobacco Use Types Packs/Day Years [...] Description 04/28/2025 3:20 PM EDT Office Visit [facility] [address] [place] [address] Aisha Rhodes PA [address] [place] [address] documented as of this encounter Visit Diagnoses Not on filedocumented in this encounter Additional Health Concerns Assessment Noted Time PHQ-9 Depression Total Score: 0 03/27/20 23 2:00 PM EDT documented as of this encounter Care Teams Licensed Embalmer Supervisor Relationship Specialty Start Date End Date Zuri Hannah MD [address] [place] [address] PCP - Devoted 07/16/20 Zuri Hannah MD [address] [place] [address] PCP - General Family Medicine 12/25/22 09/16/23 Zuri Hannah MD [address] [place] [address] PCP - General Family Medicine 09/17/23 documented as of this encounter
--- OUTSIDE RECORDS SUMMARY | 2025-04-21 10:51 | XMS_ITS | Encounter Summary ---
Author Organization [facility] Address [address] [place] [address] Care Team Providers Care High School Admissions Representative Name Role Phone Zuri Hannah MD Unavailable [phone] Zuri Hannah MD Primary Care Provider [phone] Encounter Details Date Type Department Care Team (Late Contact Info) Description 04/02/2025 [facility] [address] [place] [address] Aisha Rhodes PA [address] [place] [address] Bilateral screening mammogram with tomosynthesis Social History Tobacco Use Types Packs/Day Years [...] Description 04/28/2025 3:20 PM EDT Office Visit [facility] [address] [place] [address] Aisha Rhodes PA [address] [place] [address] documented as of this encounter Visit Diagnoses Not on filedocumented in this encounter Additional Health Concerns Assessment Noted Time PHQ-9 Depression Total Score: 0 03/27/20 23 2:00 PM EDT documented as of this encounter Care Teams High School Admissions Representative Relationship Specialty Start Date End Date Zuri Hannah MD [address] [place] [address] PCP - Devoted 07/16/20 Zuri Hannah MD [address] [place] [address] PCP - General Family Medicine 09/17/23 documented as of this encounter
--- OUTSIDE RECORDS SUMMARY | 2025-04-21 10:51 | XMS_ITS | Clinical Summary ---
Author Organization [facility] Address [address] [place], [place] [address] Care Team Providers Care Medical Front Desk Coordinator Name Role Phone [place] Primary Care Provider [phone] Allergies Active Allergy Reactions Criticality Noted Date [...] ORAL) Take by mouth. Active Green Tea Experiment Extract (GREEN TEA) cap Take by mouth. [...] N ot on file 06/24/2020 Data from: https://www.neighborhoodatlas.medicine.[facility]/. Last address used for calculation Not on [...] 75+ series) 2022 Advance Directive Discussion 07/16/2024 Covid-19 Vaccine (1 - 2024- season) 2025 Influenza Vaccine (#1) 2025 Procedures Procedure Name Priority Date/Time Associated Diagnosis Comments COMPREHENSIVE METABOLIC PANEL Routine 11/07/2017 2:37 PM EDT Lymphopenia from Last 3 Months or Most Recently Relevant to Health Maintenance Results * COMP METABOLIC PANEL (11/07/2017 2:37 PM EDT) Protein, Total 6.4 6.3 - 8.0 g/dL 11/08/2017 2:15 AM [facility] Albumin 4.1 3.9 - 4.9 g/dL 11/08/2017 2:15 AM [facility] Calcium 9.0 8.5 - 10.2 mg/dL 11/08/2017 2:15 AM [facility] Bilirubin, Total 0.3 0.2 - 1.3 mg/dL 11/08/2017 2:15 AM [facility] Alkaline Phosphatase 48 32 - 117 U/L 11/08/2017 2:15 AM [facility] AST 20 13 - 35 U/L 11/08/2017 2:15 AM [facility] Glucose 92 74 - 99 mg/dL 11/08/2017 2:15 AM [facility] Comment: The [place] Diabetes Association (ADA) provides guidance for cutoff [...] Standards of Medical Care in Diabetes 2016, [place] Diabetes Association. Diabetes Care. 2016.39(Suppl 1). BUN 15 7 - 21 mg/dL 11/08/2017 2:15 AM [facility] Creatinine 0.62 0.58 - 0.96 mg/dL 11/08/2017 2:15 AM EDT [facility] Sodium 139 136 - 144 mmol/L 11/08/2017 2:15 AM EDT [facility] Potassium 4.4 3.7 - 5.1 mmol/L 11/08/2017 2:15 AM EDT [facility] Chloride 100 97 - 105 mmol/L 11/08/2017 2:15 AM EDT [facility] CO2 27 22 - 30 mmol/L 11/08/2017 2:15 AM EDT [facility] Anion Gap 12 9 - 18 mmol/L 11/08/2017 2:15 AM EDT [facility] ALT 17 7 - 38 U/L 11/08/2017 2:15 AM EDT [facility] eGFR- >60 11/08/2017 2:15 AM EDT [facility] eGFR-All Other Races >60 . 11/08/2017 2:15 AM EDT [facility] Comment: eGFR (Estimated GFR) Units of [...] 2:37 PM EDT 11/07/2017 2:39 PM EDT us Brittany Keyes PA-C LABORATORY Final Result [facility] [address] [place] [address] from Last 3 Months or Most Recently Relevant to Health Maintenance Insurance MEDICARE [address] Care Teams Medical Front Desk Coordinator Relationship Specialty Start Date End Date Willy Dale [address] [place] [phone] PCP - General Family Medicine 01/12/16
--- NOTE | 2025-04-21 10:53 | MM_ITS ---
Patient Name: ROMULO PETE MR#: [id number] : 1945 Exam Date: 04/21/2025 Ordering Doctor: ERICK RAGLAND RADIOLOGY REPORT PROCEDURE: MM TOMOSYNTHESIS DIAGNOSTIC RT COMPARISON: MM SCREENING MAMMO BI, 03/26/2025. MM TOMOSYNTHESIS SCREENING BI, 05/10/2023. MG MAMM SCREEN 3D LISA CAD, 02/23/2022. MG MAMM SCREEN 3D LISA CAD, 11/04/2020. INDICATIONS: Abnormal Mammogram Right Breast Calculator Name NCI Breast Cancer Risk Assessment Tool 5 Year Breast Cancer Risk 1.50% Lifetime Breast Cancer Risk 2.80% Personal Breast Cancer No Personal Ovarian Cancer No Treatments None Family Cancers Aunt-paternal with breast cancer at age ~70. LOCATION: [facility] BREAST COMPOSITION: There are scattered areas of fibroglandular density. FINDINGS: DIAGNOSTIC CATEGORY 1--NEGATIVE. LEFT BREAST: Previously identified focal asymmetry compresses out on the spot compression view suggests overlapping stroma. No abnormality is seen on the true lateral view. RECOMMENDATIONS: ROUTINE MAMMOGRAM AND CLINICAL EVALUATION IN 12 MONTHS. Dictated by: Dedrick Arroyo DO on 04/21/2025 at 12:06 Approved by: Dedrick Arroyo DO on 04/21/2025 at 12:08
--- OUTSIDE RECORDS SUMMARY | 2025-04-21 11:11 | XMS_ITS | CCD ---
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 Name Role Phone PAULA, WAYNE P [...] Care Provider DO João Soto Attending Provider Lisa Castillo Unavailable ISELA Ragland Primary Care Provider GERARDO Hdz Emergency Provider [phone] Zuri Hannah MD Unavailable Zuri Hannah MD Primary Care Provider Aisha RAGLAND Primary Care Physician [phone] Kaci Morton Admitting Unavailable Kaci Morton Attending Unavailable Dillon Hurtado Attending Unavailable Aisha RAGLAND Referring Unavailable ISELA Morton Admitting Unavailabl e Kaci Morton Attending Unavailable ISELA Ragland Primary Care Provider [phone] Boss, MD Adam Emergency Provider [phone] Jonathan CREATIVE SERVICES SPECIALIST-C Lisa Lei Attending Provider Camden CHESTER, Zuri Song Primary Care Provider Aisha Ragland PA-C Primary Care Provider João Soto DO Attending Provider Aisha Ragland PA-C Primary Care Provider [phone] João Soto DO Attending Provider [phone] Zuri Hannah MD Unavailable [phone] Zuri Hannah MD Primary Care Provider Aisha Ragland PA-C Primary Care Provider João Soto DO Attending Provider Aisha Ragland PA-C Primary Care Provider [phone] João Soto DO Attending Provider Aisha Ragland PA-C Primary Care Provider Amanda Cabral Attending Provider [phone] João Soto DO Attending Provider TABITHA VALENTINO Attending Unavailabl AISHA Graham Attending [...] Provider Aisha Ragland PA-C Primary Care Provider Brittany DO, João A Attending Provider Alvin Benito DO Attending Provider Aisha Ragland PA-C Primary Care Provider Armando, Amanda Admitting Unavailable [place]kaia, Amanda Attending Unavailable Aisha Ragland Primary Care Unavailable Brittany, João A Admitting Unavailable Brittany, João A Attending Unavailable Obie, Aisha Jefferson Primary Care Unavailable Brittany, João A Admitting Unavailable Brittany, João A Attending Unavailable Brittany, João A Admitting Unavailable Brittany, João A Attending Unavailable Obie, Aisha Jefferson Primary Care Unavailable Alvin Benito Admitting Unavailable Alvin Benito Attending Unavailable Brittany, João A Admitting Unavailable Brittany, João A Attending Unavailable Obie, Aisha Jefferson Primary Care Unavailable Duplin, Lisa L Admitting Unavailable Jonathan, Lisa L Attending Unavailable Obie, Aisha Jefferson Primary Care Unavailable Brittany, João A Admitting Unavailable Brittany, João A Attending Unavailable Obie, Aisha Jefferson Primary Care Unavailable Brittany, João A Admitting Unavailable Brittany, João A Attending Unavailable Obie, Aisha Jefferson Primary Care Unavailable Brittany, João A Admitting Unavailable Brittany, João A Attending Unavailable Obie, Aisha Jefferson Primary Care Unavailable Brittany, João A Admitting Unavailable Brittany, João A Attending Unavailable Obie, Aisha Jefferson Primary Care Unavailable Allergies Allergy Classification Reported Allergen(s) Allergy Type Date of Onset Reaction(s) Facility (1 source) Bee; Translations: [BEES] Propensity to adverse reactions (disorder) 6 AOF [facility] Repository (20 sources) tioconazole; Translations: [TIOCONAZOLE] Drug Allergy 6 AOF, Itching, Itching, rash [facility] Repository (15 sources) Bee/Wasp/Ant venom; Translations: [Bee Stings] Propensity to adverse reactions anaphylaxis, Unknown (qualifier value) [facility] (11 sources) Miconazole Drug Allergy rash [facility] Other (20 sources) traMADol; Translations: [tramadol] Drug Allergy 1 Unknown, Unknown (qualifier value) [facility] (1 source) Bee pollen Drug allergy (disorder) 3 [facility] Repository (1 source) Miconazole Drug Allergy 3 [facility] Repository (3 sources) venom-honey bee Allergy to substance 1 Fainting [facility] (20 sources) Bee pollen Allergy to substance 3 Unknown [facility] Healthcare Work Phone: (20 sources) Honey bee venom Allergy to substance 3 Shortness of breath [facility] (20 sources) Miconazole; Translations: [miconazole topical] Drug Allergy 3 Unknown, Unknown (qualifier value) [facility] (3 sources) Latex; Translations: [Latex] Drug allergy Other (qualifier value) [facility] (1 source) Miconazole; Translations: [Miconazole Nitrate] Drug Allergy [facility] Repository (20 sources) bee venom protein (honey bee); Translations: [bee venom protein (honey bee)] Allergy to substance 4 anaphylaxis [facility] (1 source) traMADol Drug Allergy 5 [facility] Repository Medications Current Medications Medication Drug Class(es) [...] oral tablet (20 sources) Opioid Agonist Start: 03-28-2025 take 1 tablet by mouth in the morning HYDROcodone-acetaminophen ([place]) 5-325 MG tablet Indications: Chronic pain disorder Take 1 tablet by mouth in the morning and 1 tablet in the evening and 1 tablet before bedtime. Do not start before March 28, 2025. 90 tablet 03/28/2025 Active Start: 12-01-2024 End: 02-27-2025 Start: 07-28-2024 End: 10-28-2024 take 1 tablet by mouth in the morning, then take 1 tablet by mouth in the evening, then take 1 tablet by mouth at bedtime HYDROcodone-acetaminophen ([place]) 5-325 MG tablet Indications: Chronic pain disorder Take 1 tablet by mouth in the morning and 1 tablet in the evening and 1 tablet before bedtime. 90 tablet 10/28/2024 Active Start: 07-01-2024 take 1 tablet by giuseppe th in the morning, then take 1 tablet by mouth in the evening, then take 1 tablet by mouth at bedtime HYDROcodone-acetaminophen ([place]) 5-325 MG tablet Indications: Chronic pain disorder Take 1 tablet by mouth in the morning and 1 tablet in the evening and 1 tablet before bedtime. 90 tablet 07/01/2024 Active Start: 04-07-2024 End: 06-02-2024 take 1 tablet by mouth in the morning, then take 1 tablet by mouth in the evening, then take 1 tablet by mouth at bedtime HYDROcodone-acetaminophen ([place]) 5-325 MG tablet Indications: Chronic pain disorder Take 1 tablet by mouth in the morning and 1 tablet in the evening and 1 tablet before bedtime. 90 tablet 06/02/2024 Active Start: 07-15-2023 End: 09-11-2024 take 1 tablet by mouth three times daily Hydrocodone-Acetaminophen 5-325 mg tablet Discontinued 1 TAB PO Three times daily July 15, 2023 1:00am September 11, 2024 1:27pm Start: 07-10-2023 End: 08-23-2023 take 1 tablet by mouth in the morning HYDROcodone-acetaminophen ([place]) 5-325 MG tablet Indications: Chronic pain disorder [...] as needed for pain Hydrocodone-Acetaminophen 5-325 mg Tablet Discontinued 1 - 2 TAB PO Q4H [...] 7:54pm carbamide peroxide 65 mg/ml otic solution (7 sources) Start: 12-21-2024 elderberry fruit 200 mg oral capsule (15 sources) Start: 08-22-2024 take 1 capsule by [...] at bedtime 90 tablet 3 05/26/2024 Active ferrous gluconate 256 mg oral tablet [...] sources) Antiarrhythmic, Amide Local Anesthetic Start: 01-05-2025 End: 04-15-2025 apply 1 dose transdermal route once daily [...] take 1 tablet by mouth once daily Start: 06-18-2020 take 0.5 tablet by m [...] day at the same time. 0 Active [place] 3-Mpb-Bwc-Fish Oil (Fi sh Oil) 1,200 (144-216) mg capsule (16 sources) Start: 06-07-2024 take 1 capsule by mo ut once daily Start: 06-07-2024 take 1 capsule by [facility] once daily [place] 2-Azh-Rna-Fish Oil (Fish Oil) 1,200 (144-216) mg capsule Active 1 CAP PO Daily June 07, 2024 1:00am Complies with drug therapy Start: 06-07-2024 take 1 capsule by mo ut once daily [place] 1-Tat-Cet-Fish Oil (Fish Oil) 1,200 (144-216) mg capsule Active 1 CAP PO Daily June 07, 2024 1:00am Start: 06-07-2024 take 1 capsule by [facility] once daily [place] 6-Lxd-Xso-Fish Oil (Fish Oil) 1,200 (144-216) mg capsule Active 1 CAP PO Daily June 07, 2024 12:00am Start: 06-07-2024 [place] 3-Dha-Ep a-Fish Oil (Fish Oil) 1,200 (144-216) mg capsule Active CAP PO June 07, 2024 12:00am phenazopyridine hydrochloride 100 mg oral tablet (1 source) Start: 10-01-2023 End: 10-04-2023 take 1 tablet by mouth three times daily Pyridium 100 mg Tab 100 mg = 1 tab(s), Oral, TID, X 3 day(s), # 9 tab(s), Refills(s) 0, Pharmacy: [facility]/pharmacy #[id number], 175, cm, 10/01/23 5:36:00 EDT, Height/Length Dosing, 55, kg, 10/01/23 5:36:00 EDT, Weight Dosing Start Date: 10/01/23 Stop Date: 10/04/23 Status: Ordered simvastatin 40 mg oral tablet (20 sources) HMG-CoA Reductase Inhibitor Start: 04-05-2020 End: 01-02-2026 take 1 tablet by mouth once daily at bedtime Start: 04-05-2020 Simvastatin 40 mg tablet Active [...] q8hr, # 12 tab(s), Refills(s) 0, Pharmacy: [id number], 144, cm, 07/22/21 18:14:00 [...] 2023 3:00pm castor oil 0.788 mg/mg / tunisian balsam 0.087 mg/mg topical ointment (20 sources) Standardized Chemical Allergen Start: 05-19-2019 End: 04-05-2020 Balsam [place] Oil (Venelex) Ointment Discontinued 1 APPLIC TOPICAL [...] 1:01pm Start: 02-08-2022 take 1 capsule by [facility] every twelve hours CeleBREX 100 MG [...] day(s), # 14 cap(s), Refills(s) 0, Pharmacy: [facility]/pharmacy #[id number], 175, cm, 10/01/23 5:36:00 EDT, [...] End: 01-13-2025 take 1 tablet by mouth once daily as needed Famotidine 20 mg Tablet Discontinued 20 MG PO Daily as needed for Indigestion May 19, 2019 1:00am May 31, 2020 [...] 4 hours as needed for Pain 40 May 19, 2019 April 05, 2020 7:53pm [...] April 05, 2020 7:53pm polyethylene glycol 3350 82375 mg powder for oral solution (20 sources) [...] 9:19am must administer with a meal/food sennosides, senior living 8.6 mg oral tablet (20 sources) Start: [...] Chronic Chronic obstructive pulmonary disease and bronchiectasis (9 sources) Bronchitis; Translations: [Bronchitis, not specified as [...] for immunization] 04-23-2024 Episodic Malaise and fatigue (19 sources) Asthenia; Translations: [Weakness] 03-10-2024 Episodic Mood disorders (20 sources) Reactive depression (situational); Translations: [Major depressive disorder, single episode, unspecified] Onset: 12-07-2022 12-07-2022 Chronic Nausea and vomiting (20 sources) Nausea and vomiting; Translations: [Nausea with vomiting, unspecified] 04-29-2019 Episodic Comment on above: Problem List clean-u p per request of Phys. EHR Cmte Nonspecific chest pain (19 sources) Atypical chest pain; Translations: [Other chest [...] Translations: [Aftercare following joint replacement surgery] Onset: 04-17-2025 Chronic Other circulatory disease (20 sources) Raynaud's disease; Translations: [Raynaud's syndrome without gangrene] Onset: 12-07-2022 12-07-2022 Chronic Other connective tissue disease (14 sources) History of total knee arthroplasty; Translations: [...] Episodic Other ear and sense organ disorders (10 sources) Impacted cerumen in left ear; Translations: [...] injuries and conditions due to external causes (10 sources) Fracture of bone; Translations: [Other injury of unspecified body region, initial encounter] 03-18-2025 Episodic Other injuries and conditions due to external causes (1 source) Other injury of unspecified body region, initial encounter; Translations: [Other injury of unspecified body region, initial encounter] Onset: 04-15-2025 Episodic Other lower respiratory disease (16 sources) Acute lower respiratory tract infection; Translations: [...] unspecified] Onset: 08-21-2024 07-15-2023 Episodic Pathological fracture (20 sources) Pathological fracture of [...] / UNK(Unknown) Onset: 11-07-2017 Urinary tract infections (13 sources) Urinary tract infectious disease; Translations: [Urinary [...] site] Onset: 12-07-2022 12-07-2022 Episodic Other aftercare (17 sources) Post-discharge follow-up; Translations: [Encounter for follow-up [...] 04-06-2021 Resolved: 06-29-2021 Episodic Residual codes; unclassified (15 sources) Edema, generalized; Translations: [Generalized edema] Onset: 10-22-2024 10-22-2024 Episodic Spondylosis; intervertebral disc disorders; other back problems (1 source) Cervicalgia; Translations: [Cervicalgia] Onset: 09-03-2024 Episodic Unclassified (1 source) Lumbar pain M54.50 Onset: 06-29-2021 Resolved: 06-29-2021 Results Test Name Value Interpretation Reference Range Facility X-ray reportOrdered By: Yomi Newby on 04-15-2025 Study report [facility] [address] [place] [id number] XRay Report Signed Patient: Nata Pete MR#: [id number] : 1945 Acct:[id number] Age/Sex: 80 / F ADM Date: 5 Loc: [facility] Room: Type: [facility] CLI Attending Dr: João Soto DO Copies to: João Soto DO~ Ordering Provider: João Soto DO Date of Service: 04/15/25 XR/XR knee RT 3V - NOT FOR ER USE: T14.8XXA - Other injury of unspecified body region, initi... 3 views right knee plain film COMPARISON: 03/18/2025 HISTORY: Status post right total knee arthroplasty. Right tibial tubercle avulsion fracture ACUTE FINDINGS: Avulsion of the tibial tuberosity stable. Elevation of the patella unchanged. DEGENERATIVE CHANGE: Unremarkable SOFT TISSUE FINDINGS: Unremarkable JOINT EFFUSION: None POSTOP CHANGES: Hardware is stable. BONE MINERALIZATION: Adequate XR/XR knee RT 3V - NOT FOR ER USE IMPRESSION: Stable findings Impression dictated by: Alvin Newby M.D. 04/15/2025 8:56 PM Dictation Location: [facility]-[employer] ([employer]taxi)-20 Transcribed By: HIMA 04/15/252055 Dictated By: Alvin Newby DO 04/15/252053 Signed By: 04/15/252055 [facility] XR knee RT 3V - NOT FOR ER U Jamar 04-15-2025 XR knee RT 3V - NOT FOR ER USE [facility] [address] [place] [address] XRay Report Signed Patient: Nata Pete MR#: [id number] : 1945 Acct:[id number] Age/Sex: 80 / F ADM Date: 04/15/25 Loc: [facility] Room: Type: [facility] Attending Dr: João Soto DO Copies to: João Soto DO Ordering Provider: João Soto DO Date of Service: 04/15/25 XR/XR knee RT 3V - NOT FOR ER USE: T14.8XXA - Other injury of unspecified body region, initi... 3 views right knee plain film COMPARISON: 03/18/2025 HISTORY: Status post right total knee arthroplasty. Right tibial tubercle avulsion fracture ACUTE FINDINGS: Avulsion of the tibial tuberosity stable. Elevation of the patella unchanged. DEGENERATIVE CHANGE: Unremarkable SOFT TISSUE FINDINGS: Unremarkable JOINT EFFUSION: None POSTOP CHANGES: Hardware is stable. BONE MINERALIZATION: Adequate XR/XR knee RT 3V - NOT FOR ER USE IMPRESSION: Stable findings Impression dictated by: Alvin Newby M.D. 04/15/2025 8:56 PM Dictation [facility] Transcribed By: HIMA 04/15/252055 Dictated By: Alvin Newby DO 04/15/252053 Signed By: 04/15/252055 Normal [facility] MG Breast - bilateral Screen ingon 03-26-2025 [place] [address] Mammography Report Signed Patient: NATA PETE MR#: [id number] : 1945 Acct:[id number] Age/Sex: 79 / F ADM Date: 03/26/25 Loc: MAMMO Attending Dr: AISHA RAGLAND Ordering Physician: AISHA RAGLAND Results: Date of Service: 03/26/25 Follow Up: Procedure(s): MM screening mammo BI Accession Number(s): [id number] cc: AISHA RAGLAND Patient Name: NATA PETE MR#: [id number] : 1945 Exam Date: 03/26/2025 Ordering Doctor: Kiara CLEMENSH [facility]BI[facility] RADIOLOGY REPORT PROCEDURE: MM SCREENING MAMMO BI [...] breast cancer at age 72. LOCATION: [facility] BREAST COMPOSITION: There are scattered areas [...] Arroyo M.D. Signed By: 03/26/25 1556 DD/ 1555 TD/TT: Chief Talent Officer: [facility] Radiology, Lan mckeon MD - 03/26/2025 The [place] [id number] Mammography Report Signed Patient: NATA PETE MR#: [id number] : 1945 Acct:[id number] Age/Sex: 79 / F ADM Date: 03/26/25 Loc: MAMMO Attending Dr: AISHA RAGLAND Ordering Physician: AISHA RAGLAND Results: Date of Service: 03/26/25 Follow Up: Procedure(s): MM screening mammo BI Accession Number(s): [id number] cc: AISHA RAGLAND Patient Name: NATA PETE MR#: [id number] : 1945 Exam Date: 03/26/2025 Ordering Doctor: [...] breast cancer at age 72. LOCATION: [facility] BREAST COMPOSITION: There are scattered areas [...] By: Dedrick Arroyo M.D. Signed By: 03/26/25 155 DD/ 54 TD/TT: Chief Talent Officer: [facility] Study observation (narrative) [facility] MG Breast - bilateral Screen ingOrdered By: Radiologist Radiology on 03-26-2025 [facility] Work Phone: X-ray reportOrdered By: Catracho Arroyo on 03-18-2025 Study report [facility] [address] [place] [address] XRay Report Signed Patient: Nata Pete MR#: [id number] : 1945 Acct:[id number] Age/Sex: 79 / F ADM Date: 5 Loc: [facility] Room: Type: REG CLI Attending Dr: João [...] STUDY. Impression dictated by: Dedrick Arroyo Jr., DKiaraOKiara 03/18/2025 4:49 PM Dictation Location: [place] [address] Transcribed By: [facility] 03/18/25 164 Dictated By: Dedrick Arroyo Jr, DO 03/18/25 1648 Signed By: 03/18/25 1649 [facility] XR knee RT 3V - NOT FOR ER U Jamar 03-18-2025 XR knee RT 3V - NOT FOR ER USE [facility] [place] [address] XRay Report Signed Patient: Nata Pete MR#: [id number] : 1945 Acct:[id number] Age/Sex: 79 / F ADM Date: 03/18/25 Loc: [facility] Room: Type: REG CLI Attending Dr: João [...] STUDY. Impression dictated by: Dedrick Arroyo Jr., DDarryn 03/18/2025 4:49 PM Dictation Location: [place] [address] Transcribed By: [facility] 03/18/25 164 Dictated By: Dedrick Arroyo Jr, DO 03/18/258 Signed By: 03/18/251648 Normal [facility] Urine Cultureon 03-04-2025 Bacteria identified Cx Nom (U) ORGANISM: Escherichia coli (O:ESCCOL) [place] Count >100,000 Aerobic MI Charge (NMIC56) SUSCEPTIBILITY [...] RESISTANT TO ALL B-LACTAM DRUGS. PERFORMED BY: [place] [address] PATHOLOGIST SUBSTANCE ABUSE SPECIALIST JACQUELINE ENRIQUEZ M.D. Normal [facility] Comment on above: Performed By: #### G LULS #### Point of Care testing , Urine cultureOrdered By: Alexis Benito on 03-04-2025 Bacteria identified Cx Nom (U) Escherichia coli Abnormal [facility] CBC W Auto Differential pane l (Bld)on 01-14-2025 Basophils (Bld) [#/Vol] 0 10*3/uL [facility] Basophils/100 WBC (Bld) 1 % Not Estab. [facility] Eosinophils (Bld) [#/Vol] 0.2 10*3/uL [facility] Eosinophils/100 WBC (Bld) 4 % Not Estab. [facility] Erythrocyte distribution width (RBC) [Ratio] 12.4 % 11.7 - 15.4 % [facility] Hematocrit (Bld) [Volume fraction] 36.3 % 34.0 - 46.6 % [facility] Hemoglobin (Bld) [Mass/Vol] 11.4 g/dL 11.1 - 15.9 g/dL [facility] Immature granulocytes (Bld) [#/Vol] 0 10*3/uL [facility] Immature granulocytes/100 WBC (Bld) 0 % Not Estab. [facility] Healthcare Lymphocytes (Bld) [#/Vol] 0.7 10*3/uL [facility] Lymphocytes/100 WBC (Bld) 17 % Not Estab. [facility] MCH (RBC) [Entitic mass] 27.9 pg 26.6 - 33.0 pg [facility] MCHC (RBC) [Mass/Vol] 31.4 g/dL Low 31.5 - 35.7 g/dL [facility] MCV (RBC) [Entitic vol] 89 fL 79 - 97 fL [facility] Monocytes (Bld) [#/Vol] 0.5 10*3/uL [facility] Monocytes/100 WBC (Bld) 13 % Not Estab. [facility] Neutrophils (Bld) [#/Vol] 2.6 10*3/uL [facility] Neutrophils/100 WBC (Bld) 65 % Not Estab. [facility] Platelets (Bld) [#/Vol] 213 10*3/uL [facility] RBC (Bld) [#/Vol] 4.08 10*6/uL [facility] WBC (Bld) [#/Vol] 4.1 10*3/uL [facility] Laboratory - Chemistry and C hemistry - challengeon 01-14-2025 Albumin [Mass/Vol] 4.1 g/dL 3.8 - 4.8 g/dL [facility] ALP [Catalytic activity/Vol] 69 U/L [facility] ALT [Catalytic activity/Vol] 14 U/L [facility] AST [Catalytic activity/Vol] 19 U/L [facility] Bilirubin [Mass/Vol] 0.3 mg/dL 0.0 - 1 .2 mg/dL [facility] Calcium [Mass/Vol] 9.6 mg/dL 8.7 - 10. 3 mg/dL [facility] Chloride [Moles/Vol] 98 mmol/L 96 - 10 6 mmol/L [facility] CO2 [Moles/Vol] 23 mmol/L 20 - 29 mmol/L [facility] Creatinine [Mass/Vol] 0.52 mg/dL Low 0.57 - 1.00 mg/dL [facility] GFR/1.73 sq M.predicted among non-blacks MDRD (S/P/Bld) [Vol rate/Area] 96 mL/min/{1.73_m2} 59 - PINF mL/min/1.7 3 [facility] Globulin (S) [Mass/Vol] 1.5 g/dL 1.5 - 4.5 g/dL [facility] Glucose [Mass/Vol] 106 mg/dL High 70 - 99 mg/dL [facility] Potassium [Moles/Vol] 4.5 mmol/L 3.5 - 5.2 mmol/L [facility] Protein [Mass/Vol] 5.6 g/dL Low 6.0 - 8.5 g/dL [facility] Sodium [Moles/Vol] 135 mmol/L 134 - 144 mmol/L [facility] Urea nitrogen [Mass/Vol] 25 mg/dL 8 - 27 mg/dL [facility] Urea nitrogen/Creatinine [Mass ratio] 48 mg/mg High 12 - 28 [facility] No Panel Informationon 01-14 Interpretation and review of laboratory results Abnormal [facility] Performed at: 01 - [facility] [address] [id number] Pay Station Attendant: Raffi Diallo PhD, Phone: [phone] [facility] Laboratory - Hematology and Cell countson 01-13-2025 HbA1c (Bld) [Mass fraction] 5.3 % [facility] No Panel Informationon 01-13 [facility] Laboratory - Chemistry and C hemistry - challengeon 12-21-2024 Bilirubin Ql (U) Negative [facility] Glucose (U) [Mass/Vol] Negative [facility] Ketones Ql (U) Negative [facility] pH (U) 7.5 [pH] [facility] Specific gravity (U) [Rel density] 1.020 [facility] Urobilinogen (U) [Mass/Vol] 1.0 mg/dL [facility] Laboratory - Specimen inform ationon 12-21-2024 Appearance (U) cloudy [facility] Color (U) yellow [facility] Laboratory - Urinalysison Leukocyte esterase Test strip Ql (U) small [facility] Nitrite Ql (U) Negative [facility] Protein Ql (U) 30 [facility] No Panel Informationon 12-21 Urine Occult Blood trace-intact [facility] Urine Cultureon 12-21-2024 Bacteria identified Cx Nom (U) <10,000 colonies/ml mixed bacterial skin contaminants including mixed gram negative bacilli - 2 Days PERFORMED BY: [facility] [address] [place] [address] PATHOLOGIST SUBSTANCE ABUSE SPECIALIST JACQUELINE ENRIQUEZ M.D. Normal [facility] Comment on above: Performed By: #### C UU #### [address] Urine cultureOrdered By: Anh Roberts on 12-21-2024 Bacteria identified Cx Nom (U) bacilli - 2 Days [facility] ALL CBC WITH AUTO DIFFon Erythrocyte distribution width (RBC) [Ratio] 13.6 % 11.0 - 15.0 % [facility] Hematocrit (Bld) [Volume fraction] 33.1 % Low 36.0 - 48.0 % [facility] Hemoglobin (Bld) [Mass/Vol] 10.6 g/dL Low 12.0 - 16.0 g/dL [facility] Interpretation and review of laboratory results Abnormal [facility] MCH (RBC) [Entitic mass] 29.4 pg 26.7 - 34.0 pg [facility] MCHC (RBC) [Mass/Vol] 32 g/dL 29.9 - 35.2 g/dL [facility] MCV (RBC) [Entitic vol] 91.9 fL 81.0 - 99.0 fL [facility] Platelet mean volume (Bld) [Entitic vol] 10.5 fL 9.5 - 13.5 fL [facility]H PLT 228 [facility] RBC 3.6 Low [facility] WBC 3.8 Low [facility] Basic Metabolic Panelon 08-17 Anion gap [Moles/Vol] 7.1 mmol/L Normal 6.0-15.0 [facility] Comment on above: Performed By: #### B MP, CBC #### [facility] [address] Calcium [Mass/Vol] 8.3 mg/dL Low 8.6-10.3 [facility] Comment on above: Performed By: #### B MP, CBC #### [facility] [address] [place] [id number] [place] Chloride [Moles/Vol] 102 mmol/L Normal 98-107 [facility] Comment on above: Performed By: #### B MP, CBC #### [facility] [address] [place] [id number] [place] CO2 [Moles/Vol] 27.0 mmol/L Normal 21.0-31.0 The [facility] Comment on above: Performed By: #### B MP, CBC #### [facility] [address] [id number] [place] Creatinine [Mass/Vol] 0.48 mg/dL Low 0.60-1.20 [facility] Comment on above: Performed By: #### B MP, CBC #### [place] [address] [place] Creatinine Clr Calc Pharmacy 48.10 Normal [facility] Comment on above: Result Comment: PERF ORMED BY: [place] [address] PATHOLOGIST SUBSTANCE ABUSE SPECIALIST MELANIE ALMAZAN M.D. Performed By: #### B MP, CBC #### [place] [address] [place] GFR/1.73 sq M.predicted MDRD (S/P/Bld) [Vol rate/Area] mL/min/{1.73_m2} Normal [facility] Comment on above: Performed By: #### B MP, CBC #### [place] [address] [place] Glucose [Mass/Vol] 91 mg/dL Normal 70-100 [facility] Comment on above: Result Comment: [place] Glucose Reference Range is dependent on time and content of last meal. Glucose of more than 200 mg/dL in a nonstressed, ambulatory subject supports the diagnosis of Diabetes Mellitus. ADA recommended reference range Performed By: #### B MP, CBC #### [place] [address] [place] Potassium [Moles/Vol] 4.1 mmol/L Normal 3.5-5.1 [facility] Comment on above: Performed By: #### B MP, CBC #### [place] [address] [place] Sodium [Moles/Vol] 132 mmol/L Low 136-145 [facility] Comment on above: Performed By: #### B MP, CBC #### [place] [address] [place] Urea nitrogen [Mass/Vol] 19 mg/dL Normal 7-25 [facility] Comment on above: Performed By: #### B MP, CBC #### [address] [place] [address] [place] Basophils Auto (Bld) [#/Vol] Ordered By: João Soto on 09-11-2024 Basophils (Bld) [#/Vol] Automated basophil count 0.0-0.2 [facility] Basophils/100 WBC Auto (Bld) Ordered By: João Soto on 09-11-2024 Basophils/100 WBC (Bld) Automated basophil % . [facility] Calcium [Mass/volume] in Ser um or PlasmaOrdered By: João Soto on 09-11-2024 Calcium [Mass/Vol] Calcium [Mass/volume ] in Serum or Plasma Low 8.6-10.3 [facility] Carbon dioxide, total [Moles /volume] in Serum or PlasmaOrdered By: João Soto on 09-11-2024 CO2 [Moles/Vol] Carbon dioxide, tota l [Moles/volume] in Serum or Plasma 21.0-31.0 [facility] Chloride [Moles/volume] in S ozzie or PlasmaOrdered By: João Soto on 09-11-2024 Chloride [Moles/Vol] Chloride [Moles/vol ume] in Serum or Plasma 98-107 [facility] Complete Blood Count Auto Di ffon 09-11-2024 Basophils (Bld) [#/Vol] 0.0 10*3/uL Normal 0.0-0.2 [facility] Comment on above: Result Comment: PERF ORMED BY: [place] [address] PATHOLOGIST SUBSTANCE ABUSE SPECIALIST MELANIE ALMAZAN M.D. Performed By: #### B MP, CBC #### [facility] [address] [place] [address] [place] Basophils/100 WBC (Bld) 0.6 % Normal . [facility] Comment on above: Performed By: #### B MP, CBC #### [facility] [address] [place] [address] [place] Eosinophils (Bld) [#/Vol] 0.3 10*3/uL Normal 0.0-0.45 [facility] Comment on above: Performed By: #### B MP, CBC #### [address] Eosinophils/100 WBC (Bld) 4.6 % Normal . [facility] Comment on above: Performed By: #### B MP, CBC #### [address] Erythrocyte distribution width (RBC) [Ratio] 13.8 % Normal 11.9-15.3 [facility] Comment on above: Performed By: #### B MP, CBC #### [address] Hematocrit (Bld) [Volume fraction] 29.7 % Low 34.0-46.4 [facility] Comment on above: Performed By: #### B MP, CBC #### [address] Hemoglobin (Bld) [Mass/Vol] 10.2 g/dL Low 11.8-15.4 [facility] Comment on above: Performed By: #### B MP, CBC #### [address] Lymphocytes (Bld) [#/Vol] 0.9 10*3/uL Low 1.00-4.8 [facility] Comment on above: Performed By: #### B MP, CBC #### [address] Lymphocytes/100 WBC (Bld) 16.6 % Normal . [facility] Comment on above: Performed By: #### B MP, CBC #### [address] MCH (RBC) [Entitic mass] 29.6 pg Normal 24.7-34.3 [facility] Comment on above: Performed By: #### B MP, CBC #### [address] MCV (RBC) [Entitic vol] 86.4 fL Normal 80-100 [facility] Comment on above: Performed By: #### B MP, CBC #### [address] [place] [address] [place] Mean Corpuscular HGB Conc 34.3 g/dL Normal 32.0-35.0 [facility] Comment on above: Performed By: #### B MP, CBC #### [place] [address] [place] Monocytes (Bld) [#/Vol] 0.6 10*3/uL Normal 0.0-0.8 [facility] Comment on above: Performed By: #### B MP, CBC #### [place] [address] [place] Monocytes/100 WBC (Bld) 11.4 % Normal . [facility] Comment on above: Performed By: #### B MP, CBC #### [address] Neutrophils (Bld) [#/Vol] 3.7 10*3/uL Normal 1.8-7.7 [facility] Comment on above: Performed By: #### B MP, CBC #### [place] [address] [place] Neutrophils/100 WBC (Bld) 66.8 % Normal . [facility] Comment on above: Performed By: #### B MP, CBC #### [address] NRBC% 0.0 /100{WBC} Normal 0-0.5 [facility] Comment on above: Performed By: #### B MP, CBC #### [place] [address] [place] Platelet mean volume (Bld) [Entitic vol] 8.9 fL Normal 6.3-10.7 The [facility] Comment on above: Performed By: #### B MP, CBC #### [place] [address] [place] Platelets (Bld) [#/Vol] 179 10*3/uL Normal 150-450 [facility] Comment on above: Performed By: #### B MP, CBC #### [place] [id number] [place] RBC (Bld) [#/Vol] 3.44 10*6/uL Low 3.60-5.00 [facility] Comment on above: Performed By: #### B MP, CBC #### [facility] [address] WBC (Bld) [#/Vol] 5.5 10*3/uL Normal 3.8-11.6 [facility] Comment on above: Performed By: #### B MP, CBC #### [facility] [address] Creatinine [Mass/volume] in Serum or PlasmaOrdered By: João Soto on 09-11-2024 Creatinine [Mass/Vol] Creatinine [Mass/v olume] in Serum or Plasma Low 0.60-1.20 [facility] Eosinophils Auto (Bld) [#/Vo l]Ordered By: João Soto on 09-11-2024 Eosinophils (Bld) [#/Vol] Automated eosinophil count 0.0-0.45 [facility] Eosinophils/100 WBC Auto (Bl d)Ordered By: João Soto on 09-11-2024 Eosinophils/100 WBC (Bld) Automated eosinophil % . [facility] Erythrocyte distribution wid th Auto (RBC) [Ratio]Ordered By: João Soto on 09-11-2024 Erythrocyte distribution width (RBC) [Ratio] Erythrocyte distribution width [Ratio] by Automated count 11.9-15.3 [facility] Glucose Glucometer (BldC) [M ass/Vol]Ordered By: João Soto on 09-11-2024 Glucose [Mass/Vol] Capillary blood gluc ose measurement by glucometer (mass/volume) [facility] Comment on above: Random Glucose Refer ence Range is dependent on time and content of last meal. Glucose of more than 200 mg/dL in a nonstressed, ambulatory subject supports the diagnosis of Diabetes Mellitus. Glucose Poct Glucometerson 0 09-11-2024 Glucose [Mass/Vol] 112 mg/dL Normal [facility] Comment on above: Result Comment: [place] om Glucose Reference Range is dependent on time and content of last meal. Glucose of more than 200 mg/dL in a nonstressed, ambulatory subject supports the diagnosis of Diabetes Mellitus. PERFORMED BY: [facility] [address] [place] [address] PATHOLOGIST SUBSTANCE ABUSE SPECIALIST MELANIE ALMAZAN M.D. Performed By: #### G LULS #### Point of Care testing , Glucose [Mass/Vol] 106 mg/dL Normal [facility] Comment on above: Result Comment: [place] om Glucose Reference Range is dependent on time and content of last meal. Glucose of more than 200 mg/dL in a nonstressed, ambulatory subject supports the diagnosis of Diabetes Mellitus. PERFORMED BY: [facility] [address] [place] [address] PATHOLOGIST SUBSTANCE ABUSE SPECIALIST MELANIE ALMAZAN M.D. Performed By: #### G LULS #### Point of Care testing , Glucose [Mass/volume] in Ser um or PlasmaOrdered By: João Soto on 09-11-2024 Glucose [Mass/Vol] Glucose [Mass/volume ] in Serum or Plasma 70-100 [facility] Comment on above: ADA recommended refe rence rangeRandom Glucose Reference Range is dependent on time and content of last meal. Glucose of more than 200 mg/dL in a nonstressed, ambulatory subject supports the diagnosis of Diabetes Mellitus. Hematocrit Auto (Bld) [Volum e fraction]Ordered By: Jooã Soto on 09-11-2024 Hematocrit (Bld) [Volume fraction] Hematocrit [Volume Fraction] of Blood by Automated count Low 34.0-46.4 [facility] Hemoglobin [Mass/volume] in BloodOrdered By: João Soto on 09-11-2024 Hemoglobin (Bld) [Mass/Vol] Hemoglobin [Mass/volume] in Blood Low 11.8-15.4 [facility] Leukocytes [#/volume] correc venkata for nucleated erythrocytes in Blood by Automated counOrdered By: João Soto on 09-11-2024 WBC corrected for nucl RBC Auto (Bld) [#/Vol] Leukocytes [#/volume] corrected for nucleated erythrocytes in Blood by Automated coun 3.8-11.6 [facility] Lymphocytes Auto (Bld) [#/Vo l]Ordered By: João Soto on 09-11-2024 Lymphocytes (Bld) [#/Vol] Lymphocytes [#/volume] in Blood by Automated count Low 1.00-4.8 [facility] Lymphocytes/100 WBC Auto (Bl d)Ordered By: João Soto on 09-11-2024 Lymphocytes/100 WBC (Bld) Lymphocytes/100 leukocytes in Blood by Automated count . [facility] MCH Auto (RBC) [Entitic mass ]Ordered By: João Soto on 09-11-2024 MCH (RBC) [Entitic mass] MCH [Entitic mass] by Automated count 24.7-34.3 [facility] MCHC Auto (RBC) [Mass/Vol]Or dered By: João Soto on 09-11-2024 MCHC (RBC) [Mass/Vol] MCHC [Mass/volume] by Automated count 32.0-35.0 [facility] MCV Auto (RBC) [Entitic vol] Ordered By: João Soto on 09-11-2024 MCV (RBC) [Entitic vol] MCV [Entitic volume] by Automated count 80-100 [facility] Monocytes Auto (Bld) [#/Vol] Ordered By: João Soto on 09-11-2024 Monocytes (Bld) [#/Vol] Automated blood monocyte count 0.0-0.8 [facility] Monocytes/100 WBC Auto (Bld) Ordered By: João Soto on 09-11-2024 Monocytes/100 WBC (Bld) Automated monocyte % . [facility] Neutrophils Auto (Bld) [#/Vo l]Ordered By: João Soto on 09-11-2024 Neutrophils (Bld) [#/Vol] Neutrophils [#/volume] in Blood by Automated count 1.8-7.7 [facility] Neutrophils/100 WBC Auto (Bl d)Ordered By: João Soto on 09-11-2024 Neutrophils/100 WBC (Bld) Automated neutrophil % . [facility] No Panel InformationOrdered By: João Soto on 09-11-2024 Estimated GFR (CKD-EPI) > 60.0 mL/Min [facility] Creatinine Clearance (Chem 48.10 [facility] Nucleated erythrocytes [Pres ence] in Blood by Automated countOrdered By: João Soto on 09-11-2024 Nucleated RBC Auto Ql (Bld) Nucleated erythrocytes [Presence] in Blood by Automated count 0-0.5 [facility] Pathology study report docum entOrdered By: Imer Connor on 09-11-2024 Pathology study [facility] Other Platelet mean volume Auto (B ld) [Entitic vol]Ordered By: João Soto on 09-11-2024 Platelet mean volume (Bld) [Entitic vol] Platelet mean volume [Entitic volume] in Blood by Automated count 6.3-10.7 [facility] Platelets Auto (Bld) [#/Vol] Ordered By: João Soto on 09-11-2024 Platelets (Bld) [#/Vol] Platelets [#/volume] in Blood by Automated count 150-450 [facility] Potassium [Moles/volume] in Serum or PlasmaOrdered By: João Soto on 09-11-2024 Potassium [Moles/Vol] Potassium [Moles/v olume] in Serum or Plasma 3.5-5.1 [facility] RBC Auto (Bld) [#/Vol]Ordere d By: João Soto on 09-11-2024 RBC (Bld) [#/Vol] Erythrocytes [#/volu me] in Blood by Automated count Low 3.60-5.00 [facility] Serum or plasma anion gap de terminationOrdered By: João Soto on 09-11-2024 Anion gap [Moles/Vol] Serum or plasma an ion gap determination 6.0-15.0 [facility] Sodium [Moles/volume] in Ser um or PlasmaOrdered By: João Soto on 09-11-2024 Sodium [Moles/Vol] Sodium [Moles/volume ] in Serum or Plasma Low 136-145 [facility] Urea nitrogen [Mass/volume] in Serum or PlasmaOrdered By: João Soto on 09-11-2024 Urea nitrogen [Mass/Vol] Urea nitrogen [Mass/volume] in Serum or Plasma 7-25 [facility] WBC Auto (Bld) [#/Vol]Ordere d By: João Soto on 09-11-2024 WBC (Bld) [#/Vol] Leukocytes [#/volume ] in Blood by Automated count 3.8-11.6 [facility] Basic Metabolic Panelon 08-17 Anion gap [Moles/Vol] 7.8 mmol/L Normal 6.0-15.0 [facility] Comment on above: Performed By: #### G LULS #### Point of Care testing , Calcium [Mass/Vol] 8.7 mg/dL Normal 8.6-10.3 [facility] Comment on above: Performed By: #### G LULS #### Point of Care testing , Chloride [Moles/Vol] 101 mmol/L Normal 98-107 [facility] Comment on above: Performed By: #### G LULS #### Point of Care testing , CO2 [Moles/Vol] 30.6 mmol/L Normal 21.0-31.0 [facility] Comment on above: Performed By: #### G LULS #### Point of Care testing , Creatinine [Mass/Vol] 0.55 mg/dL Low 0.60-1.20 [facility] Comment on above: Performed By: #### G LULS #### Point of Care testing , Creatinine Clr Calc Pharmacy 47.92 Normal [facility] Comment on above: Result Comment: PERF ORMED BY: [address] [place] [place] [address] PATHOLOGIST SUBSTANCE ABUSE SPECIALIST MELANIE ALMAZAN M.D. Performed By: #### G LULS #### Point of Care testing , GFR/1.73 sq M.predicted MDRD (S/P/Bld) [Vol rate/Area] mL/min/{1.73_m2} Normal [facility] Comment on above: Performed By: #### G LULS #### Point of Care testing , Glucose [Mass/Vol] 102 mg/dL High 70-100 [facility] Comment on above: Result Comment: [place] Glucose Reference Range is dependent on time and content of last meal. Glucose of more than 200 mg/dL in a nonstressed, ambulatory subject supports the diagnosis of Diabetes Mellitus. ADA recommended reference range Performed By: #### G LULS #### Point of Care testing , Potassium [Moles/Vol] 4.4 mmol/L Normal 3.5-5.1 [facility] Comment on above: Performed By: #### G LULS #### Point of Care testing , Sodium [Moles/Vol] 135 mmol/L Low 136-145 [facility] Comment on above: Performed By: #### G LULS #### Point of Care testing , Urea nitrogen [Mass/Vol] 17 mg/dL Normal 7-25 [facility] Comment on above: Performed By: #### G LULS #### Point of Care testing , Complete Blood Count Auto Di ffon 09-10-2024 Basophils (Bld) [#/Vol] 0.0 10*3/uL Normal 0.0-0.2 [facility] Comment on above: Result Comment: PERF ORMED BY: [place] [address] PATHOLOGIST SUBSTANCE ABUSE SPECIALIST MELANIE ALMAZAN M.D. Performed By: #### C BC, BMP #### [address] Basophils/100 WBC (Bld) 0.1 % Normal . [facility] Comment on above: Performed By: #### C BC, BMP #### [place] [address] [place] Eosinophils (Bld) [#/Vol] 0.1 10*3/uL Normal 0.0-0.45 [facility] Comment on above: Performed By: #### C BC, BMP #### [place] [address] [place] Eosinophils/100 WBC (Bld) 1.8 % Normal . [facility] Comment on above: Performed By: #### C BC, BMP #### [address] Erythrocyte distribution width (RBC) [Ratio] 13.2 % Normal 11.9-15.3 [facility] Comment on above: Performed By: #### C BC, BMP #### [facility] [address] Hematocrit (Bld) [Volume fraction] 31.3 % Low 34.0-46.4 [facility] Comment on above: Performed By: #### C BC, BMP #### [address] Hemoglobin (Bld) [Mass/Vol] 10.7 g/dL Low 11.8-15.4 [facility] Comment on above: Performed By: #### C BC, BMP #### [address] Lymphocytes (Bld) [#/Vol] 0.7 10*3/uL Low 1.00-4.8 [facility] Comment on above: Performed By: #### C BC, BMP #### [address] Lymphocytes/100 WBC (Bld) 11.8 % Normal . [facility] Comment on above: Performed By: #### C BC, BMP #### [address] MCH (RBC) [Entitic mass] 29.7 pg Normal 24.7-34.3 [facility] Comment on above: Performed By: #### C BC, BMP #### [address] MCV (RBC) [Entitic vol] 87.2 fL Normal 80-100 [facility] Comment on above: Performed By: #### C BC, BMP #### [address] Mean Corpuscular HGB Conc 34.1 g/dL Normal 32.0-35.0 [facility] Comment on above: Performed By: #### C BC, BMP #### [address] Monocytes (Bld) [#/Vol] 0.8 10*3/uL Normal 0.0-0.8 [facility] Comment on above: Performed By: #### C BC, BMP #### [facility] [address] [place] [address] [place] Monocytes/100 WBC (Bld) 12.5 % Normal . [facility] Comment on above: Performed By: #### C BC, BMP #### [facility] [address] [place] [address] [place] Neutrophils (Bld) [#/Vol] 4.6 10*3/uL Normal 1.8-7.7 [facility] Comment on above: Performed By: #### C BC, BMP #### [facility] [address] [place] [address] [place] Neutrophils/100 WBC (Bld) 73.8 % Normal . [facility] Comment on above: Performed By: #### C BC, BMP #### [facility] [address] [place] [address] [place] NRBC% 0.1 /100{WBC} Normal 0-0.5 [facility] Comment on above: Performed By: #### C BC, BMP #### [facility] [address] [place] [address] [place] Platelet mean volume (Bld) [Entitic vol] 8.7 fL Normal 6.3-10.7 The [facility] Comment on above: Performed By: #### C BC, BMP #### [facility] [address] [place] [address] [place] Platelets (Bld) [#/Vol] 201 10*3/uL Normal 150-450 [facility] Comment on above: Performed By: #### C BC, BMP #### [facility] [address] [place] [address] [place] RBC (Bld) [#/Vol] 3.59 10*6/uL Low 3.60-5.00 [facility] Comment on above: Performed By: #### C BC, BMP #### [facility] [address] [place] [address] [place] WBC (Bld) [#/Vol] 6.2 10*3/uL Normal 3.8-11.6 [facility] Comment on above: Performed By: #### C , BMP #### [address] Glucose Poct Glucometerson 0 09-10-2024 Glucose [Mass/Vol] 118 mg/dL Normal [facility] Comment on above: Result Comment: [place] om Glucose Reference Range is dependent on time and content of last meal. Glucose of more than 200 mg/dL in a nonstressed, ambulatory subject supports the diagnosis of Diabetes Mellitus. PERFORMED BY: [place] [address] PATHOLOGIST SUBSTANCE ABUSE SPECIALIST MELANIE ALMAZAN M.D. Performed By: #### G LULS #### Point of Care testing , Glucose [Mass/Vol] 143 mg/dL Normal [facility] Comment on above: Result Comment: [place] om Glucose Reference Range is dependent on time and content of last meal. Glucose of more than 200 mg/dL in a nonstressed, ambulatory subject supports the diagnosis of Diabetes Mellitus. PERFORMED BY: [place] [id number] PATHOLOGIST SUBSTANCE ABUSE SPECIALIST MELANIE ALMAZAN M.D. Performed By: #### G LULS #### Point of Care testing , Glucose [Mass/Vol] 113 mg/dL Normal [facility] Comment on above: Result Comment: [place] om Glucose Reference Range is dependent on time and content of last meal. Glucose of more than 200 mg/dL in a nonstressed, ambulatory subject supports the diagnosis of Diabetes Mellitus. PERFORMED BY: [address] [address] PATHOLOGIST SUBSTANCE ABUSE SPECIALIST MELANIE ALMAZAN M.D. Performed By: #### G LULS #### Point of Care testing , Glucose [Mass/Vol] 109 mg/dL Normal [facility] Comment on above: Result Comment: [place] om Glucose Reference Range is dependent on time and content of last meal. Glucose of more than 200 mg/dL in a nonstressed, ambulatory subject supports the diagnosis of Diabetes Mellitus. PERFORMED BY: [facility] [address] [place] [address] PATHOLOGIST SUBSTANCE ABUSE SPECIALIST MELANIE ALMAZAN M.D. Performed By: #### G LULS #### Point of Care testing , Glucose Poct Glucometerson 0 09-09-2024 Glucose [Mass/Vol] 183 mg/dL Normal [facility] Comment on above: Result Comment: [place] Glucose Reference Range is dependent on time and content of last meal. Glucose of more than 200 mg/dL in a nonstressed, ambulatory subject supports the diagnosis of Diabetes Mellitus. PERFORMED BY: [address] [address] PATHOLOGIST SUBSTANCE ABUSE SPECIALIST MELANIE ALMAZAN M.D. Performed By: #### G LULS #### Point of Care testing , Glucose [Mass/Vol] 129 mg/dL Normal [facility] Comment on above: Result Comment: [facility] Glucose Reference Range is dependent on time and content of last meal. Glucose of more than 200 mg/dL in a nonstressed, ambulatory subject supports the diagnosis of Diabetes Mellitus. PERFORMED BY: [address] [address] PATHOLOGIST SUBSTANCE ABUSE SPECIALIST MELANIE ALMAZAN M.D. Performed By: #### G LULS #### Point of Care testing , Glucose [Mass/Vol] 132 mg/dL Normal [facility] Comment on above: Result Comment: [facility] Glucose Reference Range is dependent on time and content of last meal. Glucose of more than 200 mg/dL in a nonstressed, ambulatory subject supports the diagnosis of Diabetes Mellitus. PERFORMED BY: [address] [address] PATHOLOGIST SUBSTANCE ABUSE SPECIALIST MELANIE ALMAZAN M.D. Performed By: #### G LULS #### Point of Care testing , Commemt1 Glu2: Cleaned Meter Normal [facility] Comment on above: Result Comment: PERF ORMED BY: [facility] [address] [address] [address] PATHOLOGIST SUBSTANCE ABUSE SPECIALIST MELANIE ALMAZAN M.D. Performed By: #### G BENJAMIN #### Point of Care testing , Glucose [Mass/Vol] 98 mg/dL Normal [facility] Comment on above: Result Comment: [place] Glucose Reference Range is dependent on time and content of last meal. Glucose of more than 200 mg/dL in a nonstressed, ambulatory subject supports the diagnosis of Diabetes Mellitus. Performed By: #### G BENJAMIN #### Point of Care testing , Dino 09-09-2024 L ----- Specimen: [id number] Received: 09/09/24 Status: BARBARA [place] Num: [id number] Spec Type: Surgical Subm Dr: João Soto DO Tissues: A Joint/Knee (RIGHT TOTAL KNEE) Procedures: Catalina HAYDEN/Princess L4, Decalcification Age/ Patient Sex Location Account Attending Physician Nata Pete 79/F 4N [id number] João Soto DO SPEC NUM: [id number] RECD: 09/09/24 STATUS: BARBARA POLK NUM: [id number] LORIN: 09/09/24 [facility] DR: João Soto DO ENTERED: 09/09/24 [facility] DR: VERONICA TYPE: Surgical DEPT: S ENTERED BY: [id number] RECV BY: [id number] ORDERED: HE, Gross/Micro L4, Decalcification ORDERED: HE, [...] yellow-bryant, glistening and uniform cut surfaces. A pharmaceutical representative section of the bone is submitted in a single cassette after decalcification. (1, , [id number])MEJIA Specimen: [id number] Received: 09/09/24 Status: BARBARA Polk Num: [id number] Spec Type: Surgical Subm Dr: João Soto DO Tissues: A Joint/Knee (RIGHT TOTAL KNEE) Procedures: Catalina HAYDEN/Princess L4, Decalcification Patient: NikkigarcíaNata Taylor [id number] (Continued) Specimen: [id number] Received: 09/09/24 (Continued) Signed (signature on file) Imer Connor MD 09/11/24 1509 Specimen: [id number] Received: 09/09/24 Status: BARBARA Polk Num: [id number] Spec Type: Surgical Subm Dr: João Soto DO Tissues: A Joint/Knee (RIGHT TOTAL KNEE) Procedures: HE, Gross/Micro L4, Decalcification Patient: Nata Pete [id number] (Continued) Specimen: [id number] Received: 09/09/24 (Continued) Microscopic Description Microscopic examinations are performed supporting the above interpretation CPT Codes 60461 [id number] Specimen: [id number] Received: 09/09/24 Status: BARBARA Polk Num: [id number] Spec Type: Surgical Subm Dr: João Soto, Tissues: A Joint/Knee (RIGHT TOTAL KNEE) Procedures: Catalina HAYDEN/Micro L4, Decalcification Patient: Nata Pete [id number] (Continued) Signed (signature on file) Chin-Tk Connor MD 09/11/24 1509 Normal [facility] No Panel InformationOrdered By: João Soto on 09-09-2024 Bedside Glucose Comment Glu2: cleaned meter [facility] X-ray reportOrdered By: Catracho Arroyo on 09-09-2024 Study report [place] [address] XRay Report Signed Patient: Nata Pete MR#: [id number] : 1945 Acct:[id number] Age/Sex: 79 / F ADM Date: 5 Loc: 4N Room: 5T0112-0 Type: REG [facility] Attending Dr: João Soto DO Copies to: [...] DO 09/09/24 1600 Signed By: 09/09/24 1601 [facility] XR knee RT 2Von 09-09-2024 XR knee RT 2V [facility] Main [address] [address] XRay Report Signed Patient: Nata Pete MR#: [id number] : 1945 Acct:[id number] Age/Sex: 79 / F ADM Date: 09/09/24 Loc: Room: [address] [place] [address] Type: REG SDC Attending Dr: João Soto [...] By: HIMA 09/09/24 1601 Dictated By: Dedrick Aroryo Jr, DO 09/09/24 1600 Signed By: 09/09/24 1601 Normal [facility] X-ray reportOrdered By: Yuriy Moran on 09-03-2024 Study report [facility] [address] [place] [address] XRay Report Signed Patient: Nata Pete MR#: [id number] : 1945 Acct:[id number] Age/Sex: 79 / F ADM Date: 5 Loc: [facility] Room: Type: REG CLI Attending Dr: João Soto DO Copies to: João Soto DO~ Ordering Provider: João Soto DO Date of Service: 09/03/24 XR/XR femur BI: M17.11 - Unilateral primary osteoarthritis, right knee ([id number]) XR/XR tibia/fibula BI: M17.11 - Unilateral primary [...] Yuriy Moran M.D.09/03/2024 11:39 PM Dictation Location: [place] [address] Transcribed By: [facility] 09/03/242338 Dictated By: Yuriy Moran II, MD 09/03/242337 Signed By: 09/03/242338 [facility] Work Phone: Study report [facility] [address] [place] [address] XRay Report Signed Patient: Nata Pete MR#: [id number] : 1945 Acct:[id number] Age/Sex: 79 / F ADM Date: 5 Loc: [facility] Room: Type: [facility] CLI Attending Dr: João Soto DO Copies [...] Yuriy Moran M.D.09/03/2024 9:29 PM Dictation Location: [place] [address] Transcribed By: [facility] 09/03/242128 Dictated By: Yuriy Moran II, MD 09/03/242126 Signed By: 09/03/242128 [facility] Work Phone: XR cerv spine AP/LAT/FLX/EXT on 09-03-2024 XR cerv spine AP/LAT/FLX/EXT [facility] [address] [place] [address] XRay Report Signed Patient: Nata Pete MR#: [id number] : 1945 Acct:[id number] Age/Sex: 79 / F ADM Date: 09/03/24 Loc: [facility] Room: Type: [facility] Attending Dr: João Soto DO Copies to: [...] Yuriy Moran M.D.09/03/2024 9:29 PM Dictation Location: [place] [address] Transcribed By: [facility] 09/03/242128 Dictated By: Yuriy Moran II, MD 09/03/242126 Signed By: 09/03/242128 Normal [facility] XR tibia/fibula BIon 025 XR tibia/fibula BI [facility] [address] [place] [address] XRay Report Signed Patient: Nata Pete MR#: [id number] : 1945 Acct:[id number] Age/Sex: 79 / F ADM Date: 09/03/24 Loc: [facility] Room: Type: [facility] Attending Dr: João Soto DO Copies to: João Soto DO Ordering Provider: João Soto DO Date of Service: 09/03/24 XR/XR femur BI: M17.11 - Unilateral primary osteoarthritis, right knee ([id number]) XR/XR tibia/fibula BI: M17.11 - Unilateral primary [...] Yuriy Moran M.D.09/03/2024 11:39 PM Dictation Location: [place] [address] Transcribed By: [facility] 09/03/242338 Dictated By: Yuriy Moran II, MD 09/03/242337 Signed By: 09/03/242338 Normal [facility] Appearance of UrineOrdered B y: João Soto on 08-26-2024 Appearance (U) Urine appearance Clear [facility] Bacteria [Presence] in Urine by AutomatedOrdered By: João Soto on 08-26-2024 Bacteria Auto Ql (U) Bacteria [Presence] in Urine by Automated None Seen [facility] Bilirubin Test strip Ql (U)O rdered By: João Soto on 08-26-2024 Bilirubin Ql (U) Bilirubin.total [Presence] in Urine by Test strip Negative [facility] Color Auto (U)Ordered By: Dana Soto on 08-26-2024 Color (U) Color of Urine by Auto Yellow Fi [facility] Dipstick and Microscopicon 0 08-26-2024 Appearance (U) Clear Normal Clear [facility] Comment on above: Order Comment: Name Collection Type:: Clean-Voided Midstream Performed By: #### G LULS #### Point of Care testing , Bacteria,Urine None Seen Normal None Seen [facility] Comment on above: Order Comment: Name Collection Type:: Clean-Voided Midstream Performed By: #### G LULS #### Point of Care testing , Bilirubin,Urine Negative Normal Negative [facility] Comment on above: Order Comment: Name Collection Type:: Clean-Voided Midstream Performed By: #### G LULS #### Point of Care testing , Color (U) Light-Yellow Normal Yellow [facility] Comment on above: Order Comment: Name Collection Type:: Clean-Voided Midstream Performed By: #### G LULS #### Point of Care testing , Glucose Ql (U) Normal Normal Normal [facility] Comment on above: Order Comment: Name Collection Type:: Clean-Voided Midstream Performed By: #### G LULS #### Point of Care testing , Hyaline Casts,Urine None Normal 0-8 [facility] Comment on above: Order Comment: Name Collection Type:: Clean-Voided Midstream Result Comment: PERF ORMED BY: [facility] [address] [place] [address] PATHOLOGIST SUBSTANCE ABUSE SPECIALIST MELANIE ALMAZAN M.D. Performed By: #### G LULS #### Point of Care testing , Ketones Ql (U) Negative Normal Negative [facility] Comment on above: Order Comment: Name Collection Type:: Clean-Voided Midstream Performed By: #### G LULS #### Point of Care testing , Leukocyte esterase Test strip Ql (U) Negative Normal Negative [facility] Comment on above: Order Comment: Name Collection Type:: Clean-Voided Midstream Performed By: #### G LULS #### Point of Care testing , Nitrite,Urine Negative Normal Negative [facility] Comment on above: Order Comment: Name Collection Type:: Clean-Voided Midstream Performed By: #### G LULS #### Point of Care testing , Occult Blood,Urine 1+ High Negative [facility] Comment on above: Order Comment: Name Collection Type:: Clean-Voided Midstream Result Comment: PERF ORMED BY: [facility] [address] [place] [address] PATHOLOGIST SUBSTANCE ABUSE SPECIALIST MELANIE ALMAZAN M.D. Performed By: #### G LULS #### Point of Care testing , pH (U) 6.5 [pH] Normal 5.0-9.0 [facility] Comment on above: Order Comment: Name Collection Type:: Clean-Voided Midstream Performed By: #### G LULS #### Point of Care testing , Protein,Urine Negative Normal Negative [facility] Comment on above: Order Comment: Name Collection Type:: Clean-Voided Midstream Performed By: #### G LULS #### Point of Care testing , RBC,Urine 1-2 Normal 0-4 [facility] Comment on above: Order Comment: Name Collection Type:: Clean-Voided Midstream Performed By: #### G LULS #### Point of Care testing , Specificy [place],Urine 1.018 Normal 1.001-1.03 0 [facility] Comment on above: Order Comment: Name Collection Type:: Clean-Voided Midstream Performed By: #### G LULS #### Point of Care testing , Squamous Epithelial Cell,Urine 1-2 Normal 0-2 [facility] Comment on above: Order Comment: Name Collection Type:: Clean-Voided Midstream Performed By: #### G LULS #### Point of Care testing , Urobilinogen,Urine Normal Normal Normal [facility] Comment on above: Order Comment: Name Collection Type:: Clean-Voided Midstream Performed By: #### G LULS #### Point of Care testing , WBC,Urine 1-2 Normal 0-4 [facility] Comment on above: Order Comment: Name Collection Type:: Clean-Voided Midstream Performed By: #### G LULS #### Point of Care testing , Epithelial cells.squamous [# /area] in Urine sediment by Automated countOrdered By: João Soto on 08-26-2024 Epithelial cells.squamous Auto (Urine sed) [#/Area] Epithelial cells.squamous [#/area] in Urine sediment by Automated count 0-2 [facility] Erythrocytes [#/area] in Uri ne sediment by Automated countOrdered By: João Soto on 08-26-2024 RBC Auto (Urine sed) [#/Area] Erythrocytes [#/area] in Urine sediment by Automated count 0-4 [facility] Glucose [Mass/volume] in Uri ne by Test stripOrdered By: João Soto on 08-26-2024 Glucose Test strip (U) [Mass/Vol] Glucose [Mass/volume] in Urine by Test strip Normal [facility] Hemoglobin Test strip Ql (U) Ordered By: João Soto on 08-26-2024 Hemoglobin Ql (U) Hemoglobin [Presence ] in Urine by Test strip High Negative [facility] Hyaline casts [#/area] in Ur ine sediment by Automated countOrdered By: João Soto on 08-26-2024 Hyaline casts Auto (Urine sed) [#/Area] Hyaline casts [#/area] in Urine sediment by Automated count 0-8 [facility] Ketones Test strip Ql (U)Ord ered By: João Soto on 08-26-2024 Ketones Ql (U) Ketones [Presence] i n Urine by Test strip Negative [facility] Leukocyte esterase [Presence ] in Urine by Test stripOrdered By: João Soto on 08-26-2024 Leukocyte esterase Test strip Ql (U) Leukocyte esterase [Presence] in Urine by Test strip Negative [facility] Leukocytes [#/area] in Urine sediment by Automated countOrdered By: João Soto on 08-26-2024 WBC Auto (Urine sed) [#/Area] Leukocytes [#/area] in Urine sediment by Automated count 0-4 [facility] Nitrite Test strip Ql (U)Ord ered By: João Soto on 08-26-2024 Nitrite Ql (U) Nitrite [Presence] i n Urine by Test strip Negative [facility] Protein Test strip (U) [Mass /Vol]Ordered By: João Soto on 08-26-2024 Protein (U) [Mass/Vol] Protein [Mass/vol ume] in Urine by Test strip Negative [facility] Specific gravity Test strip (U) [Rel density]Ordered By: João Soto on 08-26-2024 Specific gravity (U) [Rel density] Specific gravity of Urine by Test strip 1.001-1.03 0 [facility] Urobilinogen Test strip (U) [Mass/Vol]Ordered By: João Soto on 08-26-2024 Urobilinogen (U) [Mass/Vol] Urobilinogen [Mass/volume] in Urine by Test strip Normal [facility] pH Test strip (U)Ordered By: João Soto on 08-26-2024 pH (U) pH of Urine by Test strip 5.0-9.0 [facility] Alanine aminotransferase [En zymatic activity/volume] in Serum or PlasmaOrdered By: João Soto on 08-22-2024 ALT [Catalytic activity/Vol] Alanine aminotransferase [Enzymatic activity/volume] in Serum or Plasma 7-52 [facility] Albumin [Mass/volume] in Ser um or Plasma by Bromocresol green (BCG) dye binding methoOrdered By: João Soto on 08-22-2024 Albumin BCG dye [Mass/Vol] Albumin [Mass/volume] in Serum or Plasma by Bromocresol green (BCG) dye binding metho 3.5-5.7 [facility] Alkaline phosphatase [Enzyma tic activity/volume] in Serum or PlasmaOrdered By: João Soto on 08-22-2024 ALP [Catalytic activity/Vol] Alkaline phosphatase [Enzymatic activity/volume] in Serum or Plasma 34-104 [facility] Aspartate aminotransferase [ Enzymatic activity/volume] in Serum or PlasmaOrdered By: João Soto on 08-22-2024 AST [Catalytic activity/Vol] Aspartate aminotransferase [Enzymatic activity/volume] in Serum or Plasma 13-39 [facility] Basophils Auto (Bld) [#/Vol] Ordered By: João Soto on 08-22-2024 Basophils (Bld) [#/Vol] Automated basophil count 0.0-0.2 [facility] Basophils/100 WBC Auto (Bld) Ordered By: João Soto on 08-22-2024 Basophils/100 WBC (Bld) Automated basophil % . [facility] Bilirubin.total [Mass/volume ] in Serum or PlasmaOrdered By: João Soto on 08-22-2024 Bilirubin [Mass/Vol] Bilirubin.total [Mass/volume] in Serum or Plasma 0.3-1.0 [facility] CMP with reflex to A1Con Albumin [Mass/Vol] 4.0 g/dL Normal 3.5-5.7 [facility] Comment on above: Performed By: #### G LULS #### Point of Care testing , Albumin/Globulin [Mass ratio] 2.7 {ratio} Normal [facility] Comment on above: Performed By: #### G LULS #### Point of Care testing , ALP [Catalytic activity/Vol] 47 U/L Normal 34-104 [facility] Comment on above: Result Comment: PERF ORMED BY: [facility] [place] [address] PATHOLOGIST SUBSTANCE ABUSE SPECIALIST MELANIE ALMAZAN M.D. Performed By: #### G LULS #### Point of Care testing , ALT [Catalytic activity/Vol] 10 U/L Normal 7-52 [facility] Comment on above: Performed By: #### G LULS #### Point of Care testing , Anion gap [Moles/Vol] 5.7 mmol/L Low 6.0-15.0 [facility] Comment on above: Performed By: #### G LULS #### Point of Care testing , AST [Catalytic activity/Vol] 15 U/L Normal 13-39 [facility] Comment on above: Performed By: #### G LULS #### Point of Care testing , Bilirubin [Mass/Vol] 0.5 mg/dL Normal 0.3-1.0 [facility] Comment on above: Performed By: #### G LULS #### Point of Care testing , Calcium [Mass/Vol] 9.1 mg/dL Normal 8.6-10.3 [facility] Comment on above: Performed By: #### G LULS #### Point of Care testing , Chloride [Moles/Vol] 101 mmol/L Normal 98-107 [facility] Comment on above: Performed By: #### G LULS #### Point of Care testing , CO2 [Moles/Vol] 31.1 mmol/L High 21.0-31.0 [facility] Comment on above: Performed By: #### G LULS #### Point of Care testing , Creatinine [Mass/Vol] 0.47 mg/dL Low 0.60-1.20 [facility] Comment on above: Performed By: #### G LULS #### Point of Care testing , GFR/1.73 sq M.predicted MDRD (S/P/Bld) [Vol rate/Area] mL/min/{1.73_m2} Normal [facility] Comment on above: Performed By: #### G LULS #### Point of Care testing , Globulin (S) [Mass/Vol] 1.5 g/dL Normal [facility] Comment on above: Performed By: #### G LULS #### Point of Care testing , Glucose [Mass/Vol] 96 mg/dL Normal 70-100 [facility] Comment on above: Performed By: #### G LULS #### Point of Care testing , Potassium [Moles/Vol] 4.8 mmol/L Normal 3.5-5.1 [facility] Comment on above: Performed By: #### G LULS #### Point of Care testing , Protein [Mass/Vol] 5.5 g/dL Low 6.4-8.9 [facility] Comment on above: Performed By: #### G LULS #### Point of Care testing , Sodium [Moles/Vol] 133 mmol/L Low 136-145 [facility] Comment on above: Performed By: #### G LULS #### Point of Care testing , Urea nitrogen [Mass/Vol] 20 mg/dL Normal 7-25 [facility] Comment on above: Performed By: #### G LULS #### Point of Care testing , Calcium [Mass/volume] in Ser um or PlasmaOrdered By: João Soto on 08-22-2024 Calcium [Mass/Vol] Calcium [Mass/volume ] in Serum or Plasma 8.6-10.3 [facility] Carbon dioxide, total [Moles /volume] in Serum or PlasmaOrdered By: João Soto on 08-22-2024 CO2 [Moles/Vol] Carbon dioxide, tota l [Moles/volume] in Serum or Plasma High 21.0-31.0 [facility] Chloride [Moles/volume] in S ozzie or PlasmaOrdered By: João Soto on 08-22-2024 Chloride [Moles/Vol] Chloride [Moles/vol ume] in Serum or Plasma 98-107 [facility] Complete Blood Count Auto Di ffon 08-22-2024 Basophils (Bld) [#/Vol] 0.0 10*3/uL Normal 0.0-0.2 [facility] Comment on above: Result Comment: PERF ORMED BY: [facility] [place] [address] PATHOLOGIST SUBSTANCE ABUSE SPECIALIST MELANIE ALMAZAN M.D. Performed By: #### G LULS #### Point of Care testing , Basophils/100 WBC (Bld) 1.1 % Normal . [facility] Comment on above: Performed By: #### G LULS #### Point of Care testing , Eosinophils (Bld) [#/Vol] 0.1 10*3/uL Normal 0.0-0.45 [facility] Comment on above: Performed By: #### G LULS #### Point of Care testing , Eosinophils/100 WBC (Bld) 2.3 % Normal . [facility] Comment on above: Performed By: #### G LULS #### Point of Care testing , Erythrocyte distribution width (RBC) [Ratio] 13.4 % Normal 11.9-15.3 [facility] Comment on above: Performed By: #### G LULS #### Point of Care testing , Hematocrit (Bld) [Volume fraction] 33.8 % Low 34.0-46.4 [facility] Comment on above: Performed By: #### G LULS #### Point of Care testing , Hemoglobin (Bld) [Mass/Vol] 11.3 g/dL Low 11.8-15.4 [facility] Comment on above: Performed By: #### G LULS #### Point of Care testing , Lymphocytes (Bld) [#/Vol] 0.7 10*3/uL Low 1.00-4.8 [facility] Comment on above: Performed By: #### G LULS #### Point of Care testing , Lymphocytes/100 WBC (Bld) 20.5 % Normal . [facility] Comment on above: Performed By: #### G LULS #### Point of Care testing , MCH (RBC) [Entitic mass] 29.7 pg Normal 24.7-34.3 [facility] Comment on above: Performed By: #### G LULS #### Point of Care testing , MCV (RBC) [Entitic vol] 88.7 fL Normal 80-100 [facility] Comment on above: Performed By: #### G LULS #### Point of Care testing , Mean Corpuscular HGB Conc 33.5 g/dL Normal 32.0-35.0 [facility] Comment on above: Performed By: #### G LULS #### Point of Care testing , Monocytes (Bld) [#/Vol] 0.4 10*3/uL Normal 0.0-0.8 [facility] Comment on above: Performed By: #### G LULS #### Point of Care testing , Monocytes/100 WBC (Bld) 12.0 % Normal . [facility] Comment on above: Performed By: #### G LULS #### Point of Care testing , Neutrophils (Bld) [#/Vol] 2.1 10*3/uL Normal 1.8-7.7 [facility] Comment on above: Performed By: #### G LULS #### Point of Care testing , Neutrophils/100 WBC (Bld) 64.1 % Normal . [facility] Comment on above: Performed By: #### G LULS #### Point of Care testing , NRBC% 0.2 /100{WBC} Normal 0-0.5 [facility] Comment on above: Performed By: #### G LULS #### Point of Care testing , Platelet mean volume (Bld) [Entitic vol] 8.9 fL Normal 6.3-10.7 [facility] Comment on above: Performed By: #### G LULS #### Point of Care testing , Platelets (Bld) [#/Vol] 209 10*3/uL Normal 150-450 [facility] Comment on above: Performed By: [...] olume] in Serum or Plasma Low 0.60-1.20 [facility] Eosinophils Auto (Bld) [#/Vo l]Ordered By: João Soto on 08-22-2024 Eosinophils (Bld) [#/Vol] Automated eosinophil count 0.0-0.45 [facility] Eosinophils/100 WBC Auto (Bl d)Ordered By: João Soto on 08-22-2024 Eosinophils/100 WBC (Bld) Automated eosinophil % . [facility] Erythrocyte distribution wid th Auto (RBC) [Ratio]Ordered By: João Soto on 08-22-2024 Erythrocyte distribution width (RBC) [Ratio] Erythrocyte distribution width [Ratio] by Automated count 11.9-15.3 [facility] Globulin Calc (S) [Mass/Vol] Ordered By: João Soto on 08-22-2024 Globulin (S) [Mass/Vol] Serum globulin measurement by calculation (mass/volume) [facility] Glucose [Mass/volume] in Ser um or PlasmaOrdered By: João Soto on 08-22-2024 Glucose [Mass/Vol] Glucose [Mass/volume ] in Serum or Plasma 70-100 [facility] Hematocrit Auto (Bld) [Volum e fraction]Ordered By: João Soto on 08-22-2024 Hematocrit (Bld) [Volume fraction] Hematocrit [Volume Fraction] of Blood by Automated count Low 34.0-46.4 [facility] Hemoglobin [Mass/volume] in BloodOrdered By: João Soto on 08-22-2024 Hemoglobin (Bld) [Mass/Vol] Hemoglobin [Mass/volume] in Blood Low 11.8-15.4 [facility] Leukocytes [#/volume] correc venkata for nucleated erythrocytes in Blood by Automated counOrdered By: João Soto on 08-22-2024 WBC corrected for nucl RBC Auto (Bld) [#/Vol] Leukocytes [#/volume] corrected for nucleated erythrocytes in Blood by Automated coun Low 3.8-11.6 [facility] Lymphocytes Auto (Bld) [#/Vo l]Ordered By: João Soto on 08-22-2024 Lymphocytes (Bld) [#/Vol] Lymphocytes [#/volume] in Blood by Automated count Low 1.00-4.8 [facility] Lymphocytes/100 WBC Auto (Bl d)Ordered By: João Soto on 08-22-2024 Lymphocytes/100 WBC (Bld) Lymphocytes/100 leukocytes in Blood by Automated count . [facility] MCH Auto (RBC) [Entitic mass ]Ordered By: João Soto on 08-22-2024 MCH (RBC) [Entitic mass] MCH [Entitic mass] by Automated count 24.7-34.3 [facility] MCHC Auto (RBC) [Mass/Vol]Or dered By: João Soto on 08-22-2024 MCHC (RBC) [Mass/Vol] MCHC [Mass/volume] by Automated count 32.0-35.0 [facility] MCV Auto (RBC) [Entitic vol] Ordered By: João Soto on 08-22-2024 MCV (RBC) [Entitic vol] MCV [Entitic volume] by Automated count 80-100 [facility] Monocytes Auto (Bld) [#/Vol] Ordered By: João Soto on 08-22-2024 Monocytes (Bld) [#/Vol] Automated blood monocyte count 0.0-0.8 [facility] Monocytes/100 WBC Auto (Bld) Ordered By: João Soto on 08-22-2024 Monocytes/100 WBC (Bld) Automated monocyte % . [facility] Neutrophils Auto (Bld) [#/Vo l]Ordered By: João Soto on 08-22-2024 Neutrophils (Bld) [#/Vol] Neutrophils [#/volume] in Blood by Automated count 1.8-7.7 [facility] Neutrophils/100 WBC Auto (Bl d)Ordered By: João Soto on 08-22-2024 Neutrophils/100 WBC (Bld) Automated neutrophil % . [facility] No Panel InformationOrdered By: João Soto on 08-22-2024 Estimated GFR (CKD-EPI) > 60.0 mL/Min [facility] Creatinine Clearance (Chem N/A [facility] Nucleated erythrocytes [Pres ence] in Blood by Automated countOrdered By: João Soto on 08-22-2024 Nucleated RBC Auto Ql (Bld) Nucleated erythrocytes [Presence] in Blood by Automated count 0-0.5 [facility] Platelet mean volume Auto (B ld) [Entitic vol]Ordered By: João Stoo on 08-22-2024 Platelet mean volume (Bld) [Entitic vol] Platelet mean volume [Entitic volume] in Blood by Automated count 6.3-10.7 [facility] Platelets Auto (Bld) [#/Vol] Ordered By: João Soto on 08-22-2024 Platelets (Bld) [#/Vol] Platelets [#/volume] in Blood by Automated count 150-450 [facility] Potassium [Moles/volume] in Serum or PlasmaOrdered By: João Soto on 08-22-2024 Potassium [Moles/Vol] Potassium [Moles/v olume] in Serum or Plasma 3.5-5.1 [facility] Protein [Mass/volume] in Ser um or PlasmaOrdered By: João Soto on 08-22-2024 Protein [Mass/Vol] Protein [Mass/volume ] in Serum or Plasma Low 6.4-8.9 [facility] RBC Auto (Bld) [#/Vol]Ordere d By: João Soto on 08-22-2024 RBC (Bld) [#/Vol] Erythrocytes [#/volu me] in Blood by Automated count 3.60-5.00 [facility] Serum or plasma albumin/glob ulin mass ratioOrdered By: João Soto on 08-22-2024 Albumin/Globulin [Mass ratio] Serum or plasma albumin/globulin mass ratio [facility] Serum or plasma anion gap de terminationOrdered By: João Soto on 08-22-2024 Anion gap [Moles/Vol] Serum or plasma an ion gap determination Low 6.0-15.0 [facility] Sodium [Moles/volume] in Ser um or PlasmaOrdered By: João Soto on 08-22-2024 Sodium [Moles/Vol] Sodium [Moles/volume ] in Serum or Plasma Low 136-145 [facility] Urea nitrogen [Mass/volume] in Serum or PlasmaOrdered By: João Soto on 08-22-2024 Urea nitrogen [Mass/Vol] Urea nitrogen [Mass/volume] in Serum or Plasma 7-25 [facility] WBC Auto (Bld) [#/Vol]Ordere d By: João Soto on 08-22-2024 WBC (Bld) [#/Vol] Leukocytes [#/volume ] in Blood by Automated count Low 3.8-11.6 [facility] Laboratory - Hematology and Cell countson 08-21-2024 HbA1c (Bld) [Mass fraction] 5.2 % [facility] No Panel Informationon 08-21 [facility] Influenza virus B Ag [Presen ce] in Upper respiratory specimen by Rapid immunoassayon 06-07-2024 FLUBV Ag IA.rapid Ql (Nph) Influenza virus B Ag [Presence] in Upper respiratory specimen by Rapid immunoassay [facility] No Panel Informationon 06-07 Influenza Type A (Rapid) Negative [facility] POC SARS CoV-2 Antigen Negative [facility] Laboratory - Hematology and Cell countson 04-24-2024 HbA1c (Bld) [Mass fraction] 5.3 % [facility] No Panel Informationon 04-24 [facility] XR knee BI 3V - NOT FOR ER U Jamar 04-23-2024 XR knee BI 3V - NOT FOR ER USE [facility] [address] [place] [address] XRay Report Signed Patient: Nata Pete MR#: [id number] : 1945 Acct:[id number] Age/Sex: 79 / F ADM Date: 04/23/24 Loc: [facility] Room: Type: [facility] CLI Attending Dr: Lisa GRUBBSC Copies to: [...] Alvin Newby M.D.04/23/2024 4:09 PM Dictation Location: [place] [address] Transcribed By: [facility] 04/23/24 1609 Dictated By: Alvin Newby DO 04/23/24 1606 Signed By: 04/23/24 1609 Normal [facility] XR shoulder RT min 2V*on XR shoulder RT min 2V* [facility] [address] [place] [address] XRay Report Signed Patient: Nata Pete MR#: [id number] : 1945 Acct:[id number] Age/Sex: 79 / F ADM Date: 04/23/24 Loc: [facility] Room: Type: [facility] CLI Attending Dr: Lisa GRUBBSC Copies to: [...] Alvin Newby M.D.04/23/2024 4:15 PM Dictation Location: [place] [address] Transcribed By: [facility] 04/23/24 1615 Dictated By: Alvin Newby DO 04/23/24 161 Signed By: 04/23/24 1615 Normal [facility] Activated partial thrombopla stin time (aPTT) in platelet poor plasma by coagulation aOrdered By: Dharmesh Boss on 03-10-2024 aPTT Coag (PPP) [Time] 28.7 s 25.1-36.5 [facility] Comment on above: A hematocrit value g reater than 55% may lead to inaccurate results in coagulation testing. Patients having hematocrit values >55% require a special collection tube for coagulation studies. Please contact the laboratory at [phone] for redraw instructions. Basophils Auto (Bld) [#/Vol] Ordered By: Dharmesh Boss on 03-10-2024 Basophils (Bld) [#/Vol] 0.0 10*3/uL 0.0-0.2 [facility] Basophils/100 WBC Auto (Bld) Ordered By: Dharmesh Boss on 03-10-2024 Basophils/100 WBC (Bld) 0.6 % . [facility] Calcium [Mass/volume] in Ser um or PlasmaOrdered By: Dharmesh Boss on 03-10-2024 Calcium [Mass/Vol] 8.8 mg/dL 8.6-10.3 [facility] Carbon dioxide, total [Moles /volume] in Serum or PlasmaOrdered By: Dharmesh Boss on 03-10-2024 CO2 [Moles/Vol] 27.9 mmol/L 21.0-31.0 [facility] Chloride [Moles/volume] in S ozzie or PlasmaOrdered By: Dharmesh Boss on 03-10-2024 Chloride [Moles/Vol] 101 mmol/L 98-107 [facility] Creatine kinase [Enzymatic a ctivity/volume] in Serum or PlasmaOrdered By: Dharmesh Boss on 03-10-2024 CK [Catalytic activity/Vol] 55 U/L 30-223 [facility] Creatinine [Mass/volume] in Serum or PlasmaOrdered By: Dharmesh Boss on 03-10-2024 Creatinine [Mass/Vol] 0.47 mg/dL Low 0.60-1.20 [facility] Eosinophils Auto (Bld) [#/Vo l]Ordered By: Dharmesh Boss on 03-10-2024 Eosinophils (Bld) [#/Vol] 0.1 10*3/uL 0.0-0.45 [facility] Eosinophils/100 WBC Auto (Bl d)Ordered By: Dharmesh Boss on 03-10-2024 Eosinophils/100 WBC (Bld) 1.4 % . [facility] Erythrocyte distribution wid th Auto (RBC) [Ratio]Ordered By: Dharmesh Boss on 03-10-2024 Erythrocyte distribution width (RBC) [Ratio] 14.6 % 11.9-15.3 [facility] Glucose [Mass/volume] in Ser um or PlasmaOrdered By: Dharmesh Boss on 03-10-2024 Glucose [Mass/Vol] 93 mg/dL 70-100 [facility] Comment on above: ADA recommended refe rence rangeRandom Glucose Reference Range is dependent on time and content of last meal. Glucose of more than 200 mg/dL in a nonstressed, ambulatory subject supports the diagnosis of Diabetes Mellitus. Hematocrit Auto (Bld) [Volum e fraction]Ordered By: Dharmesh Boss on 03-10-2024 Hematocrit (Bld) [Volume fraction] 34.4 % 34.0-46.4 [facility] Hemoglobin [Mass/volume] in BloodOrdered By: Dharmesh Boss on 03-10-2024 Hemoglobin (Bld) [Mass/Vol] 11.5 g/dL Low 11.8-15.4 [facility] INR in Platelet poor plasma by Coagulation assayOrdered By: Dharmesh Boss on 03-10-2024 INR Coag (PPP) [Relative time] 1.0 {INR} [facility] Comment on above: INR Therapeutic Rang e [...] RBC Auto (Bld) [#/Vol] 4.2 10*3/uL 3.8-11.6 [facility] Lymphocytes Auto (Bld) [#/Vo l]Ordered By: Dharmesh Boss on 03-10-2024 Lymphocytes (Bld) [#/Vol] 1.1 10*3/uL 1.00-4.8 [facility] Lymphocytes/100 WBC Auto (Bl d)Ordered By: Dhramesh Boss on 03-10-2024 Lymphocytes/100 WBC (Bld) 25.1 % . [facility] MCH Auto (RBC) [Entitic mass ]Ordered By: Dharmesh Boss on 03-10-2024 MCH (RBC) [Entitic mass] 29.4 pg 24.7-34.3 [facility] MCHC Auto (RBC) [Mass/Vol]Or dered By: Dharmesh Boss on 03-10-2024 MCHC (RBC) [Mass/Vol] 33.5 g/dL 32.0-35.0 [facility] MCV Auto (RBC) [Entitic vol] Ordered By: Dharmesh Boss on 03-10-2024 MCV (RBC) [Entitic vol] 87.5 fL 80-100 [facility] Monocyte distribution width [Entitic volume] in Blood by AutomatedOrdered By: Dharmesh Boss on 03-10-2024 Monocyte distribution width Auto (Bld) [Entitic vol] 15.95 % 0.00-20.00 [facility] Monocytes Auto (Bld) [#/Vol] Ordered By: Dharmesh Boss on 03-10-2024 Monocytes (Bld) [#/Vol] 0.4 10*3/uL 0.0-0.8 [facility] Monocytes/100 WBC Auto (Bld) Ordered By: Dharmesh Boss on 03-10-2024 Monocytes/100 WBC (Bld) 10.0 % . [facility] Natriuretic peptide B [Mass/ Vol]Ordered By: Dharmesh Boss on 03-10-2024 Natriuretic peptide B (Bld) [Mass/Vol] 167.0 pg/mL High 5-100 [facility] Neutrophils Auto (Bld) [#/Vo l]Ordered By: Dharmesh Boss on 03-10-2024 Neutrophils (Bld) [#/Vol] 2.7 10*3/uL 1.8-7.7 [facility] Neutrophils/100 WBC Auto (Bl d)Ordered By: Dharmesh Boss on 03-10-2024 Neutrophils/100 WBC (Bld) 62.9 % . [facility] No Panel InformationOrdered By: Dharmesh Boss on 03-10-2024 Estimated GFR (CKD-EPI) > 60.0 mL/Min [facility] Creatinine Clearance (Chem 47.72 [facility] Nucleated erythrocytes [Pres ence] in Blood by Automated countOrdered By: Dharmesh Boss on 03-10-2024 Nucleated RBC Auto Ql (Bld) 0.0 /100{WBC} 0-0.5 [facility] Platelet mean volume Auto (B ld) [Entitic vol]Ordered By: Dharmesh Boss on 03-10-2024 Platelet mean volume (Bld) [Entitic vol] 8.9 fL 6.3-10.7 [facility] Platelets Auto (Bld) [#/Vol] Ordered By: Dharmesh Boss on 03-10-2024 Platelets (Bld) [#/Vol] 219 10*3/uL 150-450 [facility] Potassium [Moles/volume] in Serum or PlasmaOrdered By: Dharmesh Boss on 03-10-2024 Potassium [Moles/Vol] 4.1 mmol/L 3.5-5.1 [facility] Prothrombin time (PT)Ordered By: Dharmesh Boss on 03-10-2024 PT Coag (PPP) [Time] 11.4 s 9.0-12.9 [facility] Comment on above: A hematocrit value g reater than 55% may lead to inaccurate results in coagulation testing. Patients having hematocrit values >55% require a special collection tube for coagulation studies. Please contact the laboratory at [phone] for redraw instructions. RBC Auto (Bld) [#/Vol]Ordere d By: Dharmesh Boss on 03-10-2024 RBC (Bld) [#/Vol] 3.93 10*6/uL 3.60-5.00 [facility] Serum or plasma anion gap de terminationOrdered By: Dharmesh Boss on 03-10-2024 Anion gap [Moles/Vol] 8.2 mmol/L 6.0-15.0 [facility] Sodium [Moles/volume] in Ser um or PlasmaOrdered By: Dharmesh Boss on 03-10-2024 Sodium [Moles/Vol] 133 mmol/L Low 136-145 [facility] Troponin I.cardiac [Mass/vol ume] in Serum or Plasma by Detection limit <= 0.01 ng/Ordered By: Dharmesh Boss on 03-10-2024 Troponin I.cardiac DL <= 0.01 ng/mL [Mass/Vol] 7.4 pg/mL 0.0-15.0 [facility] Urea nitrogen [Mass/volume] in Serum or PlasmaOrdered By: Dharmesh Boss on 03-10-2024 Urea nitrogen [Mass/Vol] 13 mg/dL 7-25 [facility] WBC Auto (Bld) [#/Vol]Ordere d By: Dharmesh Boss on 03-10-2024 WBC (Bld) [#/Vol] 4.2 10*3/uL 3.8-11.6 [facility] Laboratory Outside Office Co pyon 10-24-2023 Laboratory Outside Office Copy [id number]#1.00TIFF Normal [facility] In office Testingon 10-18-19 24 In office Testing [id number]#1.00TIF F Normal [facility] In office Testing [id number]#1.00TIFF Normal [facility] INDUSTRIAL MAINTENANCE TECH Drug Screen-LCon 024 Test Name Toxassure 23 Invalid Interpretation Code [facility] Comment on above: Result Comment: ente red correct information Performed By: #### 1 [id number] ####[facility] [address] [place] [address] Physician Orderon 10-18-2023 Physician Order [id number]#1.00TIF F Normal [facility] Physician Order [id number]#1.00TIFF [facility] Consent for Surgery/Procedur e Officeon 10-17-2023 Consent for Surgery/Procedure Office [id number]#1.00TIFF Normal [facility] Consent for Treatmenton Consent for Treatment [id number]#[address]00TIFF [facility] Consultation Noteon 10-17-19 Consultation Note Patient: [...] states that they have been giving her [place] 5/325 twice daily as needed pain that [...] All Problems Resolved: Hypertension / SNOMED CT 56512103 Resolved: Osteoarthritis / SNOMED CT 7607912042 Resolved: High cholesterol / SNOMED CT 3304713989 Resolved: Diabetes mellitus / SNOMED CT 782680964 Histories Past Medical History: Resolved Hypertension (84305309): Resolved. Osteoarthritis (6527294508): Resolved. High cholesterol (1847881945): Resolved. Diabetes mellitus (155009976): Resolved. Family History: Hypertension Father Brother Sister Heart disease Father Diabetes mellitus type 2 Mother Brother Stroke Mother CAD (coronary artery disease) Father Procedure history: Appendectomy (SNOMED CT 922252038). Cholecystectomy (SNOMED CT 78612258). Tonsillectomy (SNOMED CT 696567803). Repair of right hip joint (SNOMED CT 040684596532862). Osteoporotic fracture of left hip (SNOMED CT 038760150049945). Social History Social & Psychosocial Habits Alcohol 10/17/2023 Risk Assessment: Denies Alcohol Use Substance Abuse 10/17/2023 Risk Assessment: Denies Substance Abuse Tobacco 10/17/2023 Tobacco Use: Never (less than 100 in l 10/17/2023 Risk Assessment: Denies Tobacco Use . Physical Examination Vital Signs (last 24 hrs) Last Charted Heart Rate Peripheral 66 bpm (OCT 16:18) SBP 112 mmHg (OCT 16:18) DBP 64 mmHg (OCT 16:18) Weight 59 kg (OCT 16:) BMI 27.68 (OCT 16:) General: Alert and oriented, No acute distress. HENT: Normocephalic, Normal hearing. Respiratory: Respirations are non-labored. Cardiovascular: No edema. Musculoskeletal Normal range of motion. Normal strength. Slight pain with movement of the right shoulder and the right knee but fairly normal range of motion. Neurologic: Alert, Oriented. Cognition and Speech: Oriented, Speech clear and coherent. Psychiatric: Cooperative, Appropriate mood & affect. Integumentary: Warm, Dry, [place]. Review / Management Results review: No qualifying [...] right knee done (more content not included)... [facility] Comment on above: Result Comment: Elec tronically Signed By: Kaci Morton PA-C\.silvia\Date and Time Signed: 10/17/23 11:44 EDT HIPAA Forms Officeon 024 HIPAA Forms Office [id number]TI[address] [facility] Legal Correspondence Officeo n 10-17-2023 Legal Correspondence Office [id number]#1.00TIFF Normal [facility] Legal Correspondence Office [id number]#1.00TIFF Normal [facility] Office/Clinic Note-Physician on 10-17-2023 Office/Clinic Note-Physician [id number]#1.00TIFF Normal [facility] Patient Correspondenceon Patient Correspondence [id number]#1.00TIFF Normal [facility] Patient Correspondence [id number]#1.00TIFF Normal [facility] Patient Correspondence [id number]#1.00TIFF Normal [facility] Patient Correspondence [id number]#1.00TIFF Normal [facility] Patient Correspondence [id number]#1.00TIFF Normal [facility] Patient History Officeon Patient History Office [id number]#1.00TIFF Normal [facility] Radiology Outside Office Flower Arranger yon 10-17-2023 Radiology Outside Office Copy [id number]#1.00TIFF Normal [facility] Reference Laboratory Testing Ordered By: Carlie Ernst on 10-17-2023 Test Name Compliance drug Invalid Interpretation Code [facility] SendOutsSS C Urineon 10-03-2023 Bacteria identified Cx Nom (U) Microbiology PROCEDURE: Urine Culture [R1] SOURCE: U CleanCatch BODY SITE: COLLECTED DATE/TIME: 10/01/2023 05:37 EDT RECEIVED DATE/TIME: 10/01/2023 10:13 EDT START DATE/TIME: 10/01/2023 10:13 EDT FREE TEXT SOURCE: Dillon Hurtado DO. Dillon Hurtado DO. FINAL REPORTS Final Report [] Verified Date/Time: [...] Locations R1: This test was performed at: [facility], [address] [place] [address], [address]- , [place], [facility] Comment on above: Performed By: #### 1 [id number], [id number] ####[facility] [address] [place] [address] Consent for Treatmenton 09-13 Consent for Treatment [id number]#1.00TIFF Normal [facility] Discharge Instructionson Discharge Instructions [id number]#1.00TIFF Normal [facility] ED Clinical Summaryon 2023 ED Clinical Summary (Inserted Image. Angelique ble to display) [address] [address] ED Clinical Summary Person Information Name: NATA PETE [facility] Age: 78 Years : 1945 Sex: Female Language: Italian PCP: Aisha RAGLAND PA-C Marital Status: Phone: [phone] Visit Id: Visit Reason: Urinary frequency; POSS [...] 10/01/2023 06:38:15 10/01/2023 06:38:15 10/01/2023 06:38:15 ADDRESS: [facility] [address] [facility] [id number] PHYS DOC NOTES: MEDICAL INFORMATION: Prescriptions Given: New Medications [id number], [address] [place], [place] [id number], [phone] cephalexin (Keflex 500 mg Cap) 1 Capsules [...] up: With: Address: When: Aisha RAGLAND [address] [place] [phone] Business (1) In 3 days DIAGNOSIS: Acute UTI Normal [facility] ED Note-Physicianon 10-01-19 ED Note-Physician Basic [...] and Complexity of Problems Differential Diagnosis: [] [facility] Data External documents reviewed: N/A My EKG [...] day(s), # 14 cap(s), Refills(s) 0, Pharmacy: [id number], 175, cm, 10/01/23 5:36:00 EDT, Height/Length Dosing, 55, kg, 10/01/23 5:36:00 EDT, Weight Dosing cephalexin, 500 mg = 1 cap(s), Cap, Oral, Once, Stop date 10/01/23 6:24:00 EDT, STAT, Start date 10/01/23 6:24:00 EDT, 10/01/23 6:24:00 EDT phenazopyridine, 100 mg = 1 tab(s), Oral, TID, X 3 day(s), # 9 tab(s), Refills(s) 0, Pharmacy: [id number], 175, cm, 10/01/23 5:36:00 EDT, Height/Length Dosing, 55, kg, 10/01/23 5:36:00 EDT, Weight Dosing UA With Cult Reflex Urine Culture Disposition Plan Discharge Prescription List Prescriptions Keflex 500 mg Cap, 500 mg= 1 cap(s), Oral, q12hr Pyridium 100 mg Tab, 100 mg= 1 tab(s), Oral, TID Follow-up With When Contact Information Aisha RAGLAND In 3 days [address] [place] [phone] [facility] (1) Additional Instructions: Patient Education Urinary Tract [...] Substance Abuse (more content not included)... Normal [facility] Comment on above: Result Comment: Elec [...] this condition includes: ? Antibiotic medicine. ? Uvyb-zlh-srhkmqn medicines to treat discomfort. ? Drinking enough [...] these instructions at home: Medicines ? Take bdum-ilv-prksylc and prescription medicines only as told by [...] Document Revie (more content not included)... Normal [facility] ED Patient Summaryon 024 ED Patient Summary (Inserted Image. Angelique ble to display) [place] [id number] Patient Discharge Instructions Person Information Name: NATA PETE Age: 78 Years Arrival Date: 10/01/2023 05:14:21 Discharge Diagnosis: Acute UTI Primary Care Physician: Aisha RAGLAND PA-C Provider Information Primary Provider: Dillon Hurtado DO Advanced Media Relations Intern:None The exam and treatment you received in the Emergency Department were for an urgent problem and are not intended as complete care. It is important that you follow up with a doctor, nurse practitioner, or physician?s customer marketing assistant for ongoing care. If your symptoms [...] Address: When: Aisha RAGLAND [address] [place] [phone] Business (1) In 3 days In the event that this physician does not participate in your insurance network, please consult with your insurance company to find a nearby participating provider. Patient Education Materials: Urinary Tract Infection, Adult A MESSAGE TO ALL PATIENTS REGARDING OPIOIDS PRESCRIPTION OPIOIDS: WHAT YOU NEED TO KNOW Prescription opioids can be used to help relieve nxolszfe-yv-tnrveu pain and are often prescribed following a [...] be struggling with addiction, tell your health child care supervisor and ask for guidance or call [facility] National Helpline at [phone]-EJBI. b Source: Department of [facility] (more content not included)... Normal [facility] UA With Cult Reflexon 2023 Bilirubin Ql (U) Negative Normal Negative [facility] Comment on above: Performed By: #### 1 [id number], [id number] ####[facility] [address] [place] [address] Clarity (U) CLOUDY Abnormal Clear [facility] Comment on above: Performed By: #### 1 [id number], [id number] ####[facility] [address] [place] [address] Color (U) RED Abnormal Yellow [facility] Comment on above: Performed By: #### 1 [id number], [id number] ####[facility] [address] [place] [address] Epithelial cells.squamous LM.HPF (Urine sed) [#/Area] 0-2 Normal 0-2 [facility] Comment on above: Performed By: #### 1 [id number], [id number] ####[facility] [address] [place] [address] Glucose Test strip (U) [Mass/Vol] Negative Normal Negative [facility] Comment on above: Performed By: #### 1 [id number], [id number] ####[facility] [address] [place] [address] Hemoglobin Ql (U) 3+ Abnormal Negative [facility] Comment on above: Performed By: #### 1 [id number], [id number] ####[facility] [address] [place] [address] Ketones (U) [Mass/Vol] 1+ Abnormal Negative [facility] Comment on above: Performed By: #### 1 [id number], [id number] ####[facility] [address] [place] [address] [place].plasma/[place] .RBC (Bld) [Mass ratio] >75 Abnormal 0-3 [facility] Comment on above: Performed By: #### 1 [id number], [id number] ####[facility] [address] [place] [address] Nitrite Ql (U) Positive Abnormal Negative [facility] Comment on above: Performed By: #### 1 [id number], [id number] ####[facility] [address] [place] [address] pH (U) 7.0 [pH] Invalid Interpretation Code 5.0-9.0 [facility] Comment on above: Performed By: #### 1 [id number], [id number] ####[facility] [address] [place] [address] Protein (U) [Mass/Vol] 2+ Abnormal Negative [facility] Comment on above: Performed By: #### 1 [id number], [id number] ####[facility] [address] [place] [id number] Specific gravity (U) [Rel density] 1.020 Invalid Interpretation Code 1.005-1.03 0 [facility] [facility] Comment on above: Performed By: #### 1 [id number], [id number] ####[place] [id number] Type of Urine collection method Clean Catch Normal [facility] Comment on above: Performed By: #### 1 [id number], [id number] ####[place] [id number] Urobilinogen Qn (U) 0.2 {Otilia'U}/dL Normal 0.0-1.0 [facility] Comment on above: Performed By: #### 1 [id number], [id number] ####[place] [address] WBC Auto Ql (U) 2+ Abnormal Negative [facility] Comment on above: Performed By: #### 1 [id number], [id number] ####[facility] [address] [place], [place] [id number] WBC LM.HPF (Urine sed) [#/Area] /[HPF] Abnormal 0-5 [facility] Comment on above: Performed By: #### 1 [id number], [id number] ####[place] [address] URINALYSISOrdered By: Mahsa Moses on 10-01-2023 Bilirubin [...] Interpretation Code Negative [facility] UA Auto SS Demarest.plasma/Demarest .RBC (Bld) [Mass ratio] >75 /HPF Invalid [...] AM) Invalid Interpretation Code 1.005 - 1.030 [facility] Auto SS UA Spec Desc Clean Catch (10/01/23 5:37 AM) Normal [facility] Auto SS Urobilinogen Qn (U) 0.1197612 {Otilia'U}/dL Normal 0.0 - 1.0 EU/dL [facility] UA Auto SS WBC Auto Ql (U) 2+ *ABN* (10/01/23 5:37 AM) Invalid Interpretation Code Negative [facility] UA Auto SS WBC LM.HPF (Urine sed) [#/Area] /[HPF] Invalid Interpretation Code 0-5/HPF [facility] UA Auto SS Outside Records Officeon Outside Records Office [id number]#[id number] F [facility] Outside Records Officeon Outside Records Office [id number]#1.00TIFF [facility] Referrals Officeon Referrals Office [id number]#[id number] Normal [facility] Microalbumin/Creatinine rati o panel (U)on 08-16-2023 Albumin DL <= 20 mg/L (U) [Mass/Vol] mg/dL See Note: mg/dL [facility] Comment on above: Reference Range: Reference Range Not established Albumin/Creatinine (U) [Mass ratio] NOTE NINF [facility] Comment on above: NOTE: The urine albu [...] 18 mg/dL Low 20 - 275 mg/dL [facility] Interpretation and review of laboratory results Abnormal [facility] Performing Organizat ion Information Site ID: QPT Name: [facility] Address: [address] [place] [address], [address] [place] [id number] Director: Willie Rodriguez MD [facility] - Hematology and Cell countson 08-14-2023 HbA1c (Bld) [Mass fraction] 5.2 % [facility] No Panel Informationon 08-14 Interpretation and review of laboratory results Normal [facility] XR shoulder RT min 2V*on XR shoulder RT min 2V* [facility] [employer] Other XR shoulder RT min 2V* [facility] [employer] Other XR shoulder RT min 2V* [address] [place] [address] [employer] Other XR shoulder RT min 2V* [place] [address] [facility] [employer] Other XR shoulder RT min 2V* XRay Report N [facility] [employer] Other XR shoulder RT min 2V* Signed [facility] Other XR shoulder RT min 2V* Patient: Nata Pete MR#: [id number] [employer] Other XR shoulder RT min 2V* [id number] No [employer] Other XR shoulder RT min 2V* : 1945 Acct:[id number] [employer] Other XR shoulder RT min 2V* Age/Sex: 77 / F A DM Date: 09/13/22 [employer] Other XR shoulder RT min 2V* Loc: SOXD Room: T e: [facility] [employer] Other XR shoulder RT min 2V* Attending Dr: Hugo Soto DO [employer] Other XR shoulder RT min 2V* Copies to: João Soto DO [employer] Other XR shoulder RT min 2V* Ordering Provider : João Soto DO [employer] Other XR shoulder RT min 2V* Date of Service: 09/13/22 [employer] Other XR shoulder RT min 2V* XR/XR shoulder RT min 2V*: Acute pain of right shoulder [employer] Other XR shoulder RT min 2V* RIGHT SHOULDER - - 3 views [employer] Other XR shoulder RT min 2V* CLINICAL HISTORY: Right shoulder pain for years. [employer] Other XR shoulder RT min 2V* COMPARISON: None [employer] Other XR shoulder RT min 2V* FINDINGS: No [employer]LaTherm Other XR shoulder RT min 2V* Severe degenerati ve changes right humeral joint. Mild degenerative changes right AC joint. No acute [employer] Other XR shoulder RT min 2V* bony process. [employer] Other XR shoulder RT min 2V* 4 XR/XR shoulder RT min 2V* [employer] Other XR shoulder RT min 2V* IMPRESSION: N [employer] Other XR shoulder RT min 2V* DEGENERATIVE WHITE GES INVOLVING THE RIGHT SHOULDER WITHOUT ACUTE BONY PROCESS. [employer] Other XR shoulder RT min 2V* Impression dictat ed by: Dedrick Arroyo Jr., D.OKiara09/13/2022 4:36 PM [employer] Other XR shoulder RT min 2V* Dictation Locatio n: RADIO-PC-04 [employer] Other XR shoulder RT min 2V* Transcribed By: Carolin RODRIGUEZ 09/13/22 [facility] [employer] Other XR shoulder RT min 2V* Dictated By: Catracho Arroyo Jr, DO 09/13/22 [facility] [employer] Other XR shoulder RT min 2V* Signed By: No rt [employer] Other XR shoulder RT min 2V* 09/13/22 [facility] [employer] Other MG MAMM SCREEN 3D LISA CADon 02-23-2022 MG MAMM SCREEN 3D LISA CAD Patient: NATA PETE Exam Date: 02/23/2022 : 1945 Gender:F Ordering : MRS. AISHA RAGLAND Admission #: [id number] Family : Order #: [id number] CLICK HERE TO VIEW EXAM RADIOLOGY REPORT [...] breast cancer at age 72. LOCATION: [facility] BREAST COMPOSITION: Scattered areas fibroglandular density. [...] Burk MD on 02/24/2022 at 08:28 Normal [facility] XR knee BI 3Von 10-05-2021 XR knee BI 3V [facility] [employer] Other XR knee BI 3V [facility] [employer] Other XR knee BI 3V [address] [place] [address] [employer] Other XR knee BI [address] [address] [facility] [employer] Other XR knee BI 3V [facility]Ray Report [facility] Other XR knee BI 3V Signed [employer] Other XR knee BI 3V Patient: Shabana Pete MR#: [id number] Gila [employer] Other XR knee BI 3V [id number] [employer] Other XR knee BI 3V : 1945 Acct:[id number] [employer] Other XR knee BI 3V Age/Sex: 76 / F ADM Date: 10/05/21 [employer] Other XR knee BI 3V Loc: SOXD Room: Type : [facility] [employer] Other XR knee BI 3V Attending Dr: João Soto DO [employer] Other XR knee BI 3V Ordering Provider: Li Soto DO [employer] Other XR knee BI 3V Date of Service: 10/05/21 [employer] Other XR knee BI 3V XR/XR knee BI 3V - NOT FOR ER USE: Pain in right knee;Pain in left knee [employer] Other XR knee BI 3V Copies to: João Soto, DO [employer] Other XR knee BI 3V BILATERAL KNEES - 3 views each [employer] Other XR knee BI 3V COMPARISON: 07/20/2020 right knee. [employer] Other XR knee BI 3V CLINICAL DATA: Bilat eral generalized knee pain and difficulty ambulating. No injury. [employer] Other XR knee BI 3V Standing AP, lateral and sunrise views were obtained. There is osteopenia. No acute fractures or [employer] Other XR knee BI 3V dislocation are note d. There is medial subluxation of the femur with respect to the tibia on both [employer] Other XR knee BI 3V sides. There is also lateral subluxation of the patella bilaterally. There is moderate joint space [employer] Other XR knee BI 3V narrowing at these s ites. There is also narrowing at the lateral compartments. [employer] Other XR knee BI 3V marginal spurring is seen. There is a trace amount of joint fluid. No focal soft tissue swelling is [employer] Other XR knee BI 3V noted. [employer] Other XR knee BI 3V X R/XR knee BI 3V - NOT FOR ER USE [employer] Other XR knee BI 3V IMPRESSION: Gila Calester Other XR knee BI 3V OSTEOPENIA AND ADVAN DONN DEGENERATIVE CHANGES. [employer] Other XR knee BI 3V Impression dictated by: Shahana Pérez M.D.10/05/2021 2:58 PM [employer] Other XR knee BI 3V Dictation Location: [facility]-- [employer] Other XR knee BI 3V Transcribed By: PWS 10/05/21 [facility] [employer] Other XR knee BI 3V Dictated By: Shahana Pérez MD 10/05/21 [facility] [employer] Other XR knee BI 3V Signed By: [employer] Other XR knee BI 3V 10/05/21 [facility] [employer] Other Q - COMPREHENSIVE METABOLIC PANEL W/EGFRon 09-30-2021 Albumin [Mass/Vol] 4.0 g/dL Normal 3.6-5.1 [facility] [employer] Comment on above: Order Comment: [facility] Testing performed at: [facility], [address] [place] [address], [address] [place] [address], [address] [place] [address], Transit Planning Director: Willie Rodriguez MD [facility] Collection Date/Time: [facility] Results Received Date/Time: [facility] Reported Date/Time: FASTING: NO Performed By: #### 1 [id number] #### [facility] Default [address] [place] [address] Albumin/Globulin [Mass ratio] 2.4 {ratio} Normal 1.0-2.5 [facility] [employer] Comment on above: Order Comment: [facility] performed at: [facility], [address] [place] [address], [address] [place] [address], [id number], Transit Planning Director: Willie Rodriguez MD [facility] Collection Date/Time: [facility] Results Received Date/Time: [facility] Reported Date/Time: FASTING: NO Performed By: #### 1 [id number] #### [facility] Default [address] [place] [address] ALP [Catalytic activity/Vol] 68 U/L Normal 37-153 [facility] [employer] Comment on above: Order Comment: [facility] performed at: [facility] [employer] [facility], [address] [place] [address], [address] [place] [address], [address] [place] [address], Transit Planning Director: Willie Rodriguez MD [facility] Collection Date/Time: [facility] Results Received Date/Time: [facility] Reported Date/Time: FASTING: NO Performed By: #### 1 [id number] #### [facility] Default [address] [place] [address] ALT [Catalytic activity/Vol] 8 U/L Normal 6-29 [facility] [employer] Comment on above: Order Comment: [facility] performed at: [facility] [employer] [facility], [address] [place] [address], [address] [place] [address], [address] [place] [address], Transit Planning Director: Willie Rodriguez MD [facility] Collection Date/Time: [facility] Results Received Date/Time: [facility] Reported Date/Time: FASTING: NO Performed By: #### 1 [id number] #### [facility] Default [address] [place] [address] AST [Catalytic activity/Vol] 12 U/L Normal 10-35 [facility] [employer] Comment on above: Order Comment: [facility] performed at: [facility], [address] [place] [address], [address] [place] [address], [address] [place] [address], Transit Planning Director: Willie Rodriguez MD [facility] Collection Date/Time: [facility] Results Received Date/Time: [facility] Reported Date/Time: FASTING: NO Performed By: #### 1 [id number] #### [facility] Default [address] [place] [address] Bilirubin [Mass/Vol] 0.4 mg/dL Normal 0.2-1.[address] [facility] Specialist Comment on above: Order Comment: [facility] performed at: [facility], [address] [place] [address], [address] [place] [address], [address] [place] [address], Transit Planning Director: Willie Rodriguez MD [facility] Collection Date/Time: [facility] Results Received Date/Time: [facility] Reported Date/Time: FASTING: NO Performed By: #### 1 [id number] #### [facility] Default [address] [place] [address] Calcium [Mass/Vol] 9.8 mg/dL Normal 8.6-10.4 [facility] Specialist Comment on above: Order Comment: [facility] performed at: [facility], [address] [place] [address], [address] [place] [address], [address] [place] [address], Transit Planning Director: Willie Rodriguez MD [facility] Collection Date/Time: [facility] Results Received Date/Time: [facility] Reported Date/Time: FASTING: NO Performed By: #### 1 [id number] #### [facility] Default [address] [place] [address] Chloride [Moles/Vol] 96 mmol/L Low 98-110 [facility] Comment on above: Order Comment: [facility] performed at: [facility], [address] [place] [address], [address] [place] [address], [address] [place] [address], Transit Planning Director: Willie Rodriguez MD [facility] Collection Date/Time: [facility] Results Received Date/Time: [facility] Reported Date/Time: FASTING: NO Performed By: #### 1 [id number] #### [facility] Default [address] [place] [address] CO2 [Moles/Vol] 28 mmol/L Normal 20-32 [facility] Specialist Comment on above: Order Comment: [facility] performed at: [facility], [address] [place] [address], [address] [place] [address], [address] [place] [address], Transit Planning Director: Willie Rodriguez MD [facility] Collection Date/Time: [facility] Results Received Date/Time: [facility] Reported Date/Time: [id number] FASTING: NO Performed By: #### 1 [id number] #### [facility] Default [address] [place] [address] Creatinine [Mass/Vol] 0.43 mg/dL Low 0.60-0.93 [facility] [place] [employer] Comment on above: Order Comment: [facility] performed at: [facility], [address] [facility], [address] [place] [address], [address] [place] [address], Transit Planning Director: Willie Rodriguez MD [facility] Collection Date/Time: [facility] Results Received Date/Time: [facility] Reported Date/Time: FASTING: NO Result Comment: For patients >49 years of age, the reference limit for Creatinine is approximately 13% higher for people identified as -Nauruan. Performed By: #### 1 [id number] #### [facility] Default [address] [place] [address] eGFRAA ([facility]) 116 mL/min/1.73m2 Normal > OR = 60 [facility] [place] [employer] Comment on above: Order Comment: [facility] performed at: [facility], [address] [facility], [address] [place] [address], [address] [place] [address], Transit Planning Director: Willie Rodriguez MD [facility] Collection Date/Time: [facility] Results Received Date/Time: [facility] Reported Date/Time: FASTING: NO Performed By: #### 1 [id number] #### [facility] Default [address] [place] [address] eGFRNAA ([facility]) 100 mL/min/1.73m2 Normal > OR = 62 No rthern [place] [employer] Comment on above: Order Comment: [facility] performed at: [facility], [address] [facility], [address] [place] [address], [address] [place] [address], Transit Planning Director: Willie Rodriguez MD [facility] Collection Date/Time: [facility] Results Received Date/Time: [facility] Reported Date/Time: FASTING: NO Performed By: #### 1 [id number] #### [facility] Default [address] [place] [address] Globulin (S) [Mass/Vol] 1.7 g/dL Low 1.9-3.7 [facility] [employer] Comment on above: Order Comment: [facility] performed at: [facility], [address] [facility], [address] [place] [address], [address] [place] [address], Transit Planning Director: Willie Rodriguez MD [facility] Collection Date/Time: [facility] Results Received Date/Time: [facility] Reported Date/Time: FASTING: NO Performed By: #### 1 [id number] #### [facility] Default [address] [place] [address] Glucose [Mass/Vol] 98 mg/dL Normal 65-139 Stoney villalba [place] [employer] Comment on above: Order Comment: [facility] performed at: [facility], [address] [place] [address], [address] [place] [address], [address] [place] [address], Transit Planning Director: Willie Rodriguez MD [facility] Collection Date/Time: [facility] Results Received Date/Time: [facility] Reported Date/Time: FASTING: NO Result Comment: Non-fasting reference interval Performed By: #### 1 [id number] #### [facility] Default [address] [place] [address] Potassium [Moles/Vol] 4.7 mmol/L Normal 3.5-5.3 [facility] [employer] Comment on above: Order Comment: [facility] Testing performed at: [facility], [address] [facility], [address] [place] [address], [address] [place] [address], Transit Planning Director: Willie Rodriguez MD [facility] Collection Date/Time: [facility] Results Received Date/Time: [facility] Reported Date/Time: FASTING: NO Performed By: #### 1 [id number] #### [facility] Default [address] [place] [address] Protein [Mass/Vol] 5.7 g/dL Low 6.1-8.1 [facility] vill[facility] [place] [employer] Comment on above: Order Comment: [facility] performed at: [facility], [address] , [address] [place] [address], [address] [place] [address], Transit Planning Director: Willie Rodriguez MD [facility] Collection Date/Time: [facility] Results Received Date/Time: [facility] Reported Date/Time: FASTING: NO Performed By: #### 1 [id number] #### [facility] Default [address] [place] [address] Sodium [Moles/Vol] 130 mmol/L Low 135-146 [facility] Specialist Comment on above: Order Comment: [facility] Testing performed at: [facility], [address] [facility], [address] [place] [address], [address] [place] [address], Transit Planning Director: Willie Rodriguez MD [facility] Collection Date/Time: [facility] Results Received Date/Time: [facility] Reported Date/Time: FASTING: NO Performed By: #### 1 [id number] #### [facility] Default [address] [place] [address] Urea nitrogen [Mass/Vol] 14 mg/dL Normal 7-25 [facility] [employer] Comment on above: Order Comment: [facility] performed at: [facility], [address] , [address] [place] [address], [address] [place] [address], Transit Planning Director: Willie Rodriguez MD [facility] Collection Date/Time: [facility] Results Received Date/Time: [facility] Reported Date/Time: FASTING: NO Performed By: #### 1 [id number] #### [facility] Default [address] [place] [address] Urea nitrogen/Creatinine [Mass ratio] 33 mg/mg High 6-22 [facility] [employer] Comment on above: Order Comment: [facility] Testing performed at: [facility], [address] , [address] [place] [address], [address] [place] [address], Transit Planning Director: Willie Rodriguez MD [facility] Collection Date/Time: [facility] Results Received Date/Time: [facility] Reported Date/Time: FASTING: NO Performed By: #### 1 [id number] #### [facility] Default [address] [place] [address] PROF 14(COMP METB)on 021 Albumin [Mass/Vol] 3.6 g/dL Normal 3.5-5.0 [facility] Comment on above: Performed By: #### C MP #### [facility] [address] [place], [place] [address] [place] Albumin/Globulin [Mass ratio] 1.3 {ratio} Normal [facility] Comment on above: Performed By: #### C MP #### [facility] [address] [place], [place] [address] [place] ALP [Catalytic activity/Vol] 57 U/L Normal 38-126 [facility] Comment on above: Performed By: #### C MP #### [facility] [address] [place], [place] [address] [place] ALT [Catalytic activity/Vol] 16 U/L Normal 9-52 [facility] Comment on above: Performed By: #### C MP #### [facility] [address] [place], [place] [address] [place] Anion gap [Moles/Vol] 9.4 mmol/L Normal [facility] Comment on above: Performed By: #### C MP #### [facility] [address] [place], [place] [address] [place] AST [Catalytic activity/Vol] 14 U/L Normal 14-36 [facility] Comment on above: Performed By: #### C MP #### [facility] [address] [place], [place] [address] [place] Bilirubin [Mass/Vol] 0.4 mg/dL Normal 0.2-1.3 [facility] Comment on above: Performed By: #### C MP #### [facility] [address] [place], [place] [address] [place] Calcium [Mass/Vol] 9.1 mg/dL Normal 8.4-10.[address] [facility] Comment on above: Performed By: #### C MP #### [facility] [address] [id number] [place] Chloride [Moles/Vol] 102 mmol/L Normal 98-107 [facility] Comment on above: Performed By: #### C MP #### [facility] [address] [place] [id number] [place] CO2 [Moles/Vol] 28.8 mmol/L Normal 22.0-30.0 [facility] Comment on above: Performed By: #### C MP #### [facility] [address] [place] [address] [place] Creatinine [Mass/Vol] 0.53 mg/dL Normal 0.52-1.04 [facility] Comment on above: Performed By: #### C MP #### [facility] [address] [place] [address] [place] EGFR-AF [place] >60 Normal >=60 [facility] Comment on above: Performed By: #### C MP #### [facility] [address] [place] [address] [place] EGFR-NON AF [place] >60 Normal >=60 [facility] Comment on above: Performed By: #### C MP #### [facility] [address] [place] [address] [place] Globulin (S) [Mass/Vol] 2.7 g/dL Normal [facility] Comment on above: Performed By: #### C MP #### [facility] [address] [place] [address] [place] Glucose [Mass/Vol] 98 mg/dL Normal 74-[address] [facility] Comment on above: Performed By: #### C MP #### [facility] [address] [place] [address] [place] Potassium [Moles/Vol] 4.2 mmol/L Normal 3.4-5.0 [facility] Comment on above: Performed By: #### C MP #### [facility] [address] [address] [place] Protein [Mass/Vol] 6.3 g/dL Normal 6.1-8.[address] [facility] Comment on above: Performed By: #### C MP #### [facility] [address] [address] [place] Sodium [Moles/Vol] 136 mmol/L Critically low 137-145 [facility] Comment on above: Performed By: #### C MP #### [facility] [address] [address] [place] Urea nitrogen [Mass/Vol] 15.0 mg/dL Normal 7.0-17.0 [facility] Comment on above: Performed By: #### C MP #### [facility] [address] [address] [place] Urea nitrogen/Creatinine [Mass ratio] 28.3 mg/mg Normal [facility] Comment on above: Performed By: #### C MP #### [facility] [address] [address] [place] CNOVSPon 11-07-2017 CNOVSP Visit (SP) Office ([facility]MAS[facility]) MAYDA PETE ([id number]) 1945 FDate Time Provider Department11/07/17 3:00 PM [...] STRESS FORMULA ORAL) Take by mouth.Green Tea [place] Extract (GREEN TEA) cap Take by mouth.DIPHENHYDRAMINE [...] lb 12.8 oz) SpO2 100% BMI 29.79 kg/h2KNPEPWCD EXAMINATIONGeneral: Alert and oriented, no distress, pleasant [...] otherabnormality developsAlfred LESVIA Velizefarabella Provider: WAYNE PAULA [[id number]]Allergies As of Date: 11/07/2017 Noted Allergy ReactionBEES [...] Mendoza 11/07/2017 3:00 PM >> CAPRICE MENDOZA [facility] Nov 07, 2017 3:00 PM Received from: [facility] CHOLECALCIFEROL (VITAMIN D3) 1,000 UNIT TABLET >> Caprice Mendoza 11/07/2017 3:00 PM >> CAPRICE MENDOZA [facility] Nov 07, 2017 3:00 PM Received from: [facility] VITAMIN B-12 ORAL >> Caprice Mendoza 11/07/2017 3:01 PM >> CAPRICE MENDOZA [facility] Nov 07, 2017 3:01 PM Received from: [facility] FISH OIL ORAL >> Caprice Mendoza 11/07/2017 3:01 PM >> CAPRICE MENDOZA [facility] Nov 07, 2017 3:01 PM Received from: [facility] ATENOLOL 50 MG TABLET >> Caprice Mendoza 11/07/2017 3:02 PM >> CAPRICE MENDOZA [facility] Nov 07, 2017 3:02 PM Received from: [facility] LISINOPRIL 20 MG TABLET >> Caprice Mendoza 11/07/2017 3:02 PM >> CAPRICE MENDOZA [facility] Nov 07, 2017 3:02 PM Received from: [facility] VITAMIN C ORAL >> Caprice Mendoza 11/07/2017 3:00 PM >> CAPRICE MENDOZA [facility] Nov 07, 2017 3:00 PM [facility] Of Date 11/07/2017 Noted Resolved Lymphopenia [D72.810] INVALID FOR*Encounter Status:Closed by WAYNE PAULA MD on 11/12/17 Normal [facility] Comp Metabolic Panelon 11-07 Alanine aminotransferase (ALT) 17 U/L Normal 7-38 [facility] Comment on above: Performed By: #### L D6, CMP ####[facility] [address]CIsa[address] [place] [phone] Albumin 4.1 g/dL Normal 3.9-4.9 [facility] Comment on above: Performed By: #### L D6, CMP ####[facility] [address]CIsaac [place] [phone] Alkaline phosphatase (ALP) 48 U/L Normal 32-117 [facility] Comment on above: Performed By: #### L D6, CMP ####[facility] [place] [phone] Anion gap 12 mmol/L Normal 9-18 [facility] Comment on above: Performed By: #### L D6, CMP ####[facility] [place] [phone] Aspartate aminotransferase (AST) 20 U/L Normal 13-35 [facility] Comment on above: Performed By: #### L D6, CMP ####[facility] [address]CIsa[address] [place] [phone] Bilirubin (total) 0.3 mg/dL Normal 0.2-1.[address] [facility] Comment on above: Performed By: #### L D6, CMP ####[facility] Gurcgyuzzsaf[address] AveClevelJoshua Ville [phone] Calcium 9.0 mg/dL Normal 8.5-10.2 [facility] Comment on above: Performed By: #### L D6, CMP ####[facility] [address] AveClevelJoshua Ville [phone] Chloride 100 mmol/L Normal 97-105 [facility] Comment on above: Performed By: #### L D6, CMP ####[facility] [address]mlqq[address] AveClevelJoshua Ville [phone] CO2 27 mmol/L Normal 22-30 [facility] Comment on above: Performed By: #### L D6, CMP ####[facility] [place], [place] [phone] Creatinine 0.62 mg/dL Normal 0.58-0.96 [facility] Comment on above: Performed By: #### L D6, CMP ####[facility] AvEaston, [place] [phone] eGFR (non-black) mL/min/{1.73_m2} Normal [facility] Comment on above: Result Comment: eGFR [...] GFR. Performed By: #### L D6, CMP ####[address] [phone] Glucose mass conc 92 mg/dL Normal 74-[address] [facility] Comment on above: Result Comment: The [place] Diabetes Association (ADA) provides guidance for cutoff [...] Standards of Medical Care in Diabetes 2016, [place] [employer] Association. Diabetes Care. 2016.39(Suppl 1). Performed By: #### L D6, CMP ####[facility] [place], [place] [phone] Potassium molar conc 4.4 mmol/L Normal 3.7-5.1 [facility] Comment on above: Performed By: #### L D6, CMP ####[facility] [place], [place] [phone] Protein 6.4 g/dL Normal 6.3-8.0 [facility] Comment on above: Performed By: #### L D6, CMP ####[facility] [place], [place] [phone] Sodium 139 mmol/L Normal 136-144 [facility] Comment on above: Performed By: #### L D6, CMP ####[facility] [place], [place] [phone] Urea nitrogen 15 mg/dL Normal 7-21 [facility] Comment on above: Performed By: #### L D6, CMP ####[facility] [place], [place] [phone] LDon 11-07-2017 LD 166 U/L Normal 135-214 [facility] Comment on above: Performed By: #### L D6, CMP ####[facility] [place], [place] [phone] PROGRESSon 11-07-2017 PROGRESS HNO ID: [id number] thor: Wayne Malave: (none)Author Type: PhysicianType: Progress [...] STRESS FORMULA ORAL) Take by mouth.Green Tea [place] Extract (GREEN TEA) cap Take by mouth.DIPHENHYDRAMINE [...] lb 12.8 oz) SpO2 100% BMI 29.79 kg/t8AUMWARMV EXAMINATIONGeneral: Alert and oriented, no distress, pleasant [...] orother abnormality developsAlfred Carolin Paula MD Normal [facility] Remote CBCDIF (for [facility] use o nly)on 11-07-2017 Abs Baso 0.03 k/uL Normal 0.00-0.10 [facility] Abs [place] 0.53 k/uL Normal 0.00-0.86 [facility] Abs Neut 3.83 k/uL Normal 1.45-7.50 [facility] Basophils/100 WBC Auto (Bld) 0.5 % Normal [facility] Eosinophils 0.31 10*3/uL Normal 0.00-0.45 [facility] Eosinophils/100 leukocytes 5.1 % Normal [facility] Erythrocyte distribution width Auto Ratio (RBC) 13.4 % Normal 11.5-15.0 [facility] Erythrocytes (RBC) 4.11 10*6/uL Normal 3.90-5.20 [facility] Hematocrit (HCT) 36.2 % Normal 36.0-46.0 [facility] Hemoglobin mass conc (Bld) 12.2 g/dL Normal 11.5-15.5 [facility] Lymphocytes 1.42 10*3/uL Normal 1.00-4.00 [facility] Lymphocytes/100 leukocytes 23.2 % Normal [facility] MCH 29.7 pG Normal 26.0-34.0 [facility] MCHC mass conc (RBC) 33.7 g/dL Normal 30.5-36.0 [facility] MCV 88.1 fL Normal 80.0-100.0 [facility] Monocytes/100 leukocytes 8.7 % Normal [facility] Neutrophils/100 WBC Auto (Bld) 62.5 % Normal [facility] Platelet mean volume (PMV) 10.4 fL Normal 9.0-12.7 [facility] Platelets 211 10*3/uL Normal 150-400 [facility] WBC (Leukocytes) 6.12 10*3/uL Normal 3.70-11.00 [facility] Vital Signs Date Time Vital Sign Value Performing Clinician Facility 01-26-2025 13:16-0400 Body height 144.78 cm Aisha Ragland PA-C Work Phone: [facility] 01-26-2025 13:16-0400 Body mass index (BMI) [Ratio] 30 kg/m2 Aisha Ragland PA-C Work Phone: [facility] 01-26-2025 13:16-0400 Body weight 63 kg Aisha Ragland PA-C Work Phone: [facility] 01-13-2025 15:11-0400 Body height 147.3 cm Aisha Ragland PA Work Phone: [facility] 01-13-2025 15:11-0400 Body mass index (BMI) [Ratio] 25.79 kg/m2 Aisha Ragland PA Work Phone: [facility] 01-13-2025 15:11-0400 Body temperature 98.91 [degF] Aisha Ragland PA Work Phone: [facility] 01-13-2025 15:11-0400 Body weight 55.97 kg Aisha Ragland PA Work Phone: [facility] 01-13-2025 15:11-0400 Diastolic blood pressure 84 mm[Hg] Aisha Ragland PA Work Phone: [facility] 01-13-2025 15:11-0400 Heart rate 69 /min Aisha Ragland PA Work Phone: [facility] 01-13-2025 15:11-0400 SaO2% (BldA) [Mass fraction] 96 % Aisha Ragland PA Work Phone: [facility] 01-13-2025 15:11-0400 Systolic blood pressure 126 mm[Hg] Aisha Ragland PA Work Phone: [facility] 12-21-2024 11:50-0400 Body height 144.78 cm Aisha Ragland PA-C Work Phone: [facility] 12-21-2024 11:50-0400 Body mass index (BMI) [Ratio] 30.2 kg/m2 Aisha Aroramers PA-C Work Phone: [facility] 12-21-2024 11:50-0400 Body temperature 98.2 [degF] Aisha Ragland PA-C Work Phone: [facility] 12-21-2024 11:50-0400 Body weight 63.5 kg Aisha Aroramers PA-C Work Phone: [facility] 12-21-2024 11:50-0400 Diastolic blood pressure 75 mm[Hg] Aisha Aroramers PA-C Work Phone: [facility] 12-21-2024 11:50-0400 Heart rate 61 /min Aisha Aroramers PA-C Work Phone: [facility] 12-21-2024 11:50-0400 Respiratory rate 18 /min Aisha Aroramers PA-C Work Phone: [facility] 12-21-2024 11:50-0400 SaO2% (BldA) [Mass fraction] 95 % Aisha Obie PA-C Work Phone: [facility] 12-21-2024 11:50-0400 Systolic blood pressure 134 mm[Hg] Aisha Ragland PA-C Work Phone: [facility] 10-27-2024 16:00-0400 Body height 147.3 cm Christopher Bohach DPM Work Phone: [facility] 10-27-2024 16:00-0400 Body mass index (BMI) [Ratio] 26.96 kg/m2 Christopher Bohach DPM Work Phone: [facility] 10-27-2024 16:00-0400 Body weight 58.51 kg Christopher Bohach DPM Work Phone: [facility] 10-27-2024 16:00-0400 Diastolic blood pressure 59 mm[Hg] Christopher Bohach DPM Work Phone: [facility] 10-27-2024 16:00-0400 Heart rate 69 /min Christopher Bohach DPM Work Phone: [facility] 10-27-2024 16:00-0400 Respiratory rate 18 /min Christopher Bohach DPM Work Phone: [facility] 10-27-2024 16:00-0400 Systolic blood pressure 126 mm[Hg] Christopher Bohach DPM Work Phone: [facility] 10-14-2024 15:48-0400 Body height 147.3 cm Aisha Ragland PA Work Phone: [facility] 10-14-2024 15:48-0400 Body mass index (BMI) [Ratio] 26.96 kg/m2 Aisha Ragland PA Work Phone: [facility] 10-14-2024 15:48-0400 Body temperature 98.91 [degF] Aisha Aroramers PA Work Phone: [facility] 10-14-2024 15:48-0400 Body weight 58.51 kg Aisha Ragland PA Work Phone: [facility] 10-14-2024 15:48-0400 Diastolic blood pressure 72 mm[Hg] Aisha Ragland PA Work Phone: [facility] 10-14-2024 15:48-0400 Heart rate 68 /min Aisha Obie PA Work Phone: [facility] 10-14-2024 15:48-0400 SaO2% (BldA) [Mass fraction] 98 % Aisha Ragland PA Work Phone: [facility] 10-14-2024 15:48-0400 Systolic blood pressure 118 mm[Hg] Aisha Ragland PA Work Phone: [facility] 09-11-2024 11:19-0500 Body temperature 98.5 [degF] Aisha Ragland PA-C Work Phone: [facility] 09-11-2024 11:19-0500 Diastolic blood pressure 77 mm[Hg] Aisha Ragland PA-C Work Phone: [facility] 09-11-2024 11:19-0500 Heart rate 74 /min Aisha Ragland PA-C Work Phone: [facility] 09-11-2024 11:19-0500 Respiratory rate 18 /min Aisha Ragland PA-C Work Phone: [facility] 09-11-2024 11:19-0500 SaO2% (BldA) [Mass fraction] 97 % Aisha Ragland PA-C Work Phone: [facility] 09-11-2024 11:19-0500 Systolic blood pressure 127 mm[Hg] Aisha Ragland PA-C Work Phone: [facility] 09-11-2024 04:11-0500 Body weight 61.1 kg Aisha Ragland PA-C Work Phone: [facility] 09-09-2024 11:05-0500 Inhaled oxygen flow rate 1 L/min Aisha Ragland PA-C Work Phone: [facility] 09-09-2024 06:19-0500 Body height 144.78 cm Aisha Ragland PA-C Work Phone: [facility] 08-21-2024 15:16-0500 Body height 147.3 cm Aisha Ragland PA Work Phone: [facility] 08-21-2024 15:16-0500 Body mass index (BMI) [Ratio] 26.96 kg/m2 Aisha Ragland PA Work Phone: [facility] 08-21-2024 15:16-0500 Body temperature 98.4 [degF] Aisha Ragland PA Work Phone: [facility] 08-21-2024 15:16-0500 Body weight 58.51 kg Aisha Ragland PA Work Phone: [facility] 08-21-2024 15:16-0500 Diastolic blood pressure 84 mm[Hg] Aisha Ragland PA Work Phone: [facility] 08-21-2024 15:16-0500 Heart rate 67 /min Aisha Ragland PA Work Phone: [facility] 08-21-2024 15:16-0500 SaO2% (BldA) [Mass fraction] 98 % Aisha Ragland PA Work Phone: [facility] 08-21-2024 15:16-0500 Systolic blood pressure 130 mm[Hg] Aisha Ragland PA Work Phone: [facility] 08-11-2024 16:33-0500 Body height 147.3 cm Tabitha Valentino DPM Work Phone: [facility] 08-11-2024 16:33-0500 Body mass index (BMI) [Ratio] 26.96 kg/m2 Christopher Bohach DPM Work Phone: [facility] 08-11-2024 16:33-0500 Body weight 58.51 kg Tabitha Jenkinsach DPM Work Phone: [facility] 08-11-2024 16:33-0500 Diastolic blood pressure 83 mm[Hg] Christopher Bohach DPM Work Phone: [facility] 08-11-2024 16:33-0500 Heart rate 63 /min Tabitha Valentino DPM Work Phone: [facility] 08-11-2024 16:33-0500 Systolic blood pressure 144 mm[Hg] Tabitha Valentino DPM Work Phone: [facility] 07-23-2024 15:13-0500 Body height 144.78 cm [facility] 07-23-2024 15:13-0500 Body mass index (BMI) [Ratio] 27 kg/m2 [facility] 07-23-2024 15:13-0500 Body weight 56.69 kg [facility] 07-07-2024 14:46-0500 Body height 147.3 cm Aisha Ragland PA Work Phone: [facility] 07-07-2024 14:46-0500 Body temperature 98.4 [degF] Aisha Ragland PA Work Phone: [facility] 07-07-2024 14:46-0500 Diastolic blood pressure 70 mm[Hg] Aisha Ragland PA Work Phone: [facility] 07-07-2024 14:46-0500 Heart rate 68 /min Aisha Ragland PA Work Phone: [facility] 07-07-2024 14:46-0500 SaO2% (BldA) [Mass fraction] 98 % Aisha Ragland PA Work Phone: [facility] 07-07-2024 14:46-0500 Systolic blood pressure 118 mm[Hg] Aisha Ragland PA Work Phone: [facility] 06-07-2024 14:01-0500 Body height 144.78 cm [facility] 06-07-2024 14:01-0500 Body mass index (BMI) [Ratio] 25.7 kg/m2 [facility] 06-07-2024 14:01-0500 Body temperature 100.5 [degF] [facility] 06-07-2024 14:01-0500 Body weight 53.97 kg [facility] 06-07-2024 14:01-0500 Diastolic blood pressure 73 mm[Hg] [facility] 06-07-2024 14:01-0500 Heart rate 74 /min [facility] 06-07-2024 14:01-0500 Respiratory rate 16 /min [facility] 06-07-2024 14:01-0500 SaO2% (BldA) [Mass fraction] 96 % [facility] 06-07-2024 14:01-0500 Systolic blood pressure 131 mm[Hg] [facility] 06-02-2024 15:46-0500 Body height 147.3 cm Christopher Bohach DPM Work Phone: [facility] 06-02-2024 15:46-0500 Body mass index (BMI) [Ratio] 26.96 kg/m2 Christopher Bohach DPM Work Phone: [facility] 06-02-2024 15:46-0500 Body weight 58.51 kg Christopher Bohach DPM Work Phone: [facility] 06-02-2024 15:46-0500 Diastolic blood pressure 65 mm[Hg] Christopher Bohach DPM Work Phone: [facility] 06-02-2024 15:46-0500 Heart rate 65 /min Christopher Bohach DPM Work Phone: [facility] 06-02-2024 15:46-0500 Systolic blood pressure 147 mm[Hg] Christopher Bohach DPM Work Phone: [facility] 04-24-2024 15:17-0400 Body height 147.3 cm Aisha PEREZ Work Phone: [facility] 04-24-2024 15:17-0400 Body mass index (BMI) [Ratio] 27.15 kg/m2 Aisha PEREZ Work Phone: [facility] 04-24-2024 15:17-0400 Body temperature 98.4 [degF] Aisha Ragland PA Work Phone: [facility] 04-24-2024 15:17-0400 Body weight 58.92 kg Aisha Ragland PA Work Phone: [facility] 04-24-2024 15:17-0400 Heart rate 63 /min Aisha Ragland PA Work Phone: [facility] 04-24-2024 15:17-0400 SaO2% (BldA) [Mass fraction] 95 % Aisha Ragland PA Work Phone: [facility] 03-24-2024 16:17-0400 Body height 147.3 cm Christopher Bohach DPM Work Phone: [facility] 03-24-2024 16:17-0400 Body mass index (BMI) [Ratio] 25.71 kg/m2 Christopher Bohach DPM Work Phone: [facility] 03-24-2024 16:17-0400 Body weight 55.79 kg Christopher Bohach DPM Work Phone: [facility] 03-24-2024 16:17-0400 Diastolic blood pressure 67 mm[Hg] Christopher Bohach DPM Work Phone: [facility] 03-24-2024 16:17-0400 Heart rate 54 /min Christopher Bohach DPM Work Phone: [facility] 03-24-2024 16:17-0400 Systolic blood pressure 139 mm[Hg] Christopher Bohach DPM Work Phone: [facility] 03-10-2024 18:00-0400 Diastolic blood pressure 72 mm[Hg] PA-C Aisha Aroramers Work Phone: [facility] 03-10-2024 18:00-0400 Heart rate 74 /min PA-C Aisha Obie Work Phone: [facility] 03-10-2024 18:00-0400 Respiratory rate 18 /min PA-C Aisha Ragland Work Phone: [facility] 03-10-2024 18:00-0400 SaO2% (BldA) [Mass fraction] 98 % PA-C Aisha Ragland Work Phone: [facility] 03-10-2024 18:00-0400 Systolic blood pressure 138 mm[Hg] PA-C Aisha Ragland Work Phone: [facility] 03-10-2024 15:27-0400 Body height 144.78 cm PA-C Aisha Ragland Work Phone: [facility] 03-10-2024 15:27-0400 Body temperature 98.5 [degF] PA-C Aisha Ragland Work Phone: [facility] 03-10-2024 15:27-0400 Body weight 58.05 kg PA-C Aisha Ragland Work Phone: [facility] 10-17-2023 10:18-0400 Diastolic blood pressure 64 mm[Hg] Kaciglenys Morton [facility] 10-17-2023 10:18-0400 Heart rate 66 /min Kaciglenys Morton [facility] 10-17-2023 10:18-0400 Mean blood pressure 80 mm[Hg] Kaci Morton [facility] 10-17-2023 10:18-0400 Respiratory rate 14 /min Kaciglenys Morton [facility] 10-17-2023 10:18-0400 Systolic blood pressure 112 mm[Hg] Kaci Morton [facility] 10-01-2023 06:33-0400 Heart rate 78 /min iDllon Hurtado [facility] 10-01-2023 06:33-0400 Respiratory rate 16 /min Dillon Bryant [facility] 10-01-2023 06:33-0400 SaO2% (BldA) [Mass fraction] 98 % Dillon Bryant [facility] 10-01-2023 05:23-0400 Body temperature 97.7 [degF] Dillon Bryant [facility] 10-01-2023 05:23-0400 Diastolic blood pressure 75 mm[Hg] Dillon Bryant [facility] 10-01-2023 05:23-0400 Heart rate 74 /min Dillon Bryant [facility] 10-01-2023 05:23-0400 Respiratory rate 16 /min Dillon Bryant [facility] 10-01-2023 05:23-0400 SaO2% (BldA) [Mass fraction] 99 % Dillon Bryant [facility] 10-01-2023 05:23-0400 Systolic blood pressure 139 mm[Hg] Dillon Bryant [facility] 08-14-2023 16:13-0500 Body height 152.4 cm Aisha Ragland PA Work Phone: [facility] 08-14-2023 16:13-0500 Body mass index (BMI) [Ratio] 25.82 kg/m2 Aisha Ragland PA Work Phone: [facility] 08-14-2023 16:13-0500 Body temperature 99.1 [degF] Aisha Ragland PA Work Phone: [facility] 08-14-2023 16:13-0500 Body weight 59.97 kg Aisha Ragland PA Work Phone: [facility] 08-14-2023 16:13-0500 Diastolic blood pressure 80 mm[Hg] Aisha Obie PA Work Phone: [facility] 08-14-2023 16:13-0500 Heart rate 64 /min Aisha Obie PA Work Phone: [facility] 08-14-2023 16:13-0500 SaO2% (BldA) [Mass fraction] 97 % Aisha Obie PA Work Phone: [facility] 08-14-2023 16:13-0500 Systolic blood pressure 122 mm[Hg] Aisha Obie PA Work Phone: [facility] 07-15-2023 14:58-0500 Body height 144.78 cm PA-C Aisha Obie Work Phone: [facility] 07-15-2023 14:58-0500 Body temperature 98.5 [degF] PA-C Aisha Obie Work Phone: [facility] 07-15-2023 14:58-0500 Body weight 56.7 kg PA-C Aisha Obie Work Phone: [facility] 07-15-2023 14:58-0500 Diastolic blood pressure 62 mm[Hg] PA-C Aisha Obie Work Phone: [facility] 07-15-2023 14:58-0500 Heart rate 63 /min PA-C Aisha Obie Work Phone: [facility] 07-15-2023 14:58-0500 Respiratory rate 18 /min PA-C Aisha Obie Work Phone: [facility] 07-15-2023 14:58-0500 SaO2% (BldA) [Mass fraction] 98 % PA-C Aisha Obie Work Phone: [facility] 07-15-2023 14:58-0500 Systolic blood pressure 132 mm[Hg] PA-C Aisha Obie Work Phone: [facility] 06-20-2023 14:45-0500 Body height 152.4 cm Lisa Westonarney Other [facility] Other 03-21-2023 13:30-0400 Body height 152.4 cm João Brittany Other [facility] Other 03-21-2023 13:30-0400 Body mass index (BMI) [Ratio] 24.41 kg/m2 João Brittany Other [facility] Other 03-21-2023 13:30-0400 Body weight 56.7 kg João Brittany Other [facility] Other 09-13-2022 13:45-0500 Body height 152.4 cm João Brittany Other [facility] Other 09-13-2022 13:45-0500 Body mass index (BMI) [Ratio] 24.02 kg/m2 João Brittany Other [facility] Other 09-13-2022 13:45-0500 Body weight 55.79 kg João Brittany Other [facility] Other 10-05-2021 13:00-0400 Body height 152.4 cm João Brittany Other [facility] Other 10-05-2021 13:00-0400 Body mass index (BMI) [Ratio] 23.43 kg/m2 João Brittany Other [facility] Other 10-05-2021 13:00-0400 Body weight 54.43 kg João Brittany Other [employer] Other Encounters Encounter Date Encounter Type Care Provider Facility Start: 04-17-2025 ambulatory João Soto Facilit y:[facility] Start: 04-15-2025 Registered Recurring João Taylor Brittany DO -Physical [facility] [place] Start: 04-15-2025 End: 04-15-2025 ambulatory Aisha PEREZ-C Work Phone: [facility] Work Phone: Start: 04-15-2025 End: 04-15-2025 Patient encounter procedure João Soto DO -[facility] Work Phone: Start: 04-15-2025 End: 04-15-2025 ambulatory Aisha PEREZ-C Work Phone: [facility] Work Phone: Start: 04-15-2025 End: 04-15-2025 Patient encounter procedure João Soto DO -[facility] Start: 04-13-2025 Registered Recurring João Soto DO -[facility] [place] Start: 03-26-2025 End: 03-26-2025 Clinisync Result Encounter Aisha PEREZ Work Phone: [facility] Unsolicited Start: 03-26-2025 End: 03-26-2025 Clinisync Result Encounter Aisha PEREZ Work Phone: [facility] Unsolicited Start: 03-19-2025 End: 03-19-2025 Isabel Hannah MD Work Phone: [facility] Comment on above: Essential hypertensi on Start: 03-18-2025 Registered Recurring João A Brittany DO -[facility] [place] Start: 03-18-2025 End: 03-18-2025 ambulatory Aisha PEREZ-C Work Phone: [facility] Work Phone: Start: 03-18-2025 End: 03-18-2025 Patient encounter procedure João Vazquez Brittany HERNANDEZ -[facility] Work Phone: Start: 03-18-2025 End: 03-18-2025 Patient encounter procedure João Vazquez Birttany HERNANDEZ -[facility] Start: 03-18-2025 End: 03-18-2025 ambulatory Aisha PEREZ-Ash Work Phone: [facility] Work Phone: Start: 03-13-2025 Registered Recurring João Vazquez Brittany DO -[facility] [place] Start: 03-04-2025 End: 03-04-2025 ambulatory Aisha PEREZ-C Work Phone: [facility] Work Phone: Start: 03-04-2025 End: 03-04-2025 Departed Referred Alvin Adams DO -[facility] Start: 03-04-2025 Registered Recurring João Vazquez Brittany DO -[facility] [place] Start: 03-04-2025 End: 03-04-2025 Clinisync Result Encounter Generic External Data Provider [facility] External [facility] Unsolicited Start: 03-04-2025 End: 03-04-2025 Clinisync Result Encounter Generic External Data Provider [facility] External [facility] Unsolicited Start: 02-27-2025 End: 02-27-2025 Isabel Azar MA [facility] Comment on above: Chronic pain disorde r Start: 02-06-2025 End: 02-08-2025 Isabel Hannah MD Work Phone: [facility] Comment on above: Essential hypertensi on Start: 01-26-2025 End: 01-26-2025 ambulatory Aisha PEREZ-C Work Phone: [facility] Work Phone: Start: 01-26-2025 End: 01-26-2025 Patient encounter procedure João Taylor Brittany HERNANDEZ -[facility] Work Phone: Start: 01-23-2025 Registered Recurring João Soto DO -[facility] [place] Start: 01-13-2025 End: 01-13-2025 ambulatory AISHA RAGLAND [...] 01-13-2025 End: 01-13-2025 Bamboo flowsheet Yris Donnelly [employer]ATIVE SERVICES SPECIALIST Work Phone: [facility] Start: 01-13-2025 End: 01-13-2025 Bamboo flowsheet Yris Donnelly CREATIVE SERVICES SPECIALIST Work Phone: [facility] Start: 12-22-2024 Registered Recurring Aisha brown PA-C Work Phone: [facility] [place] Start: 12-21-2024 End: 12-23-2024 External Result Encounter Amanda Roberts CREATIVE SERVICES SPECIALIST Work Phone: [facility] Unsolicited Start: 12-21-2024 End: 12-23-2024 External Result Encounter Amanda Roberts CREATIVE SERVICES SPECIALIST Work Phone: [facility] External [facility] Unsolicited Start: 12-21-2024 End: 12-21-2024 Departed Referred Aisha Ragland PA-C Work Phone: [facility] [place] Work Phone: Start: 12-21-2024 End: 12-21-2024 ambulatory Aisha Ragland PA-C Work Phone: [facility] Work Phone: Start: 12-21-2024 End: 12-21-2024 Patient encounter procedure Aisha Ragland PA-C Work Phone: [facility] [place] Work Phone: Start: 12-19-2024 Registered Recurring Aisha brown PA-C Work Phone: [facility] [place] Start: 12-01-2024 End: 12-01-2024 Patient encounter procedure Aisha Ragland PA-C Work Phone: [facility] Work Phone: Start: 11-05-2024 End: 11-05-2024 [...] End: 10-25-2024 Refill Aisha PEREZ Work Phone: [facility] Comment on above: Controlled type 2 di abetes mellitus with diabetic polyneuropathy, without long-term current use of insulin (CMS/HCC) Start: 10-20-2024 End: 10-20-2024 Patient encounter procedure Aisha Ragland PA-C Work Phone: [facility] Work Phone: Start: 10-14-2024 End: 10-14-2024 Patient encounter procedure Aisha PEREZ Work Phone: [facility] Comment on above: Medicare annual [facility] visit, subsequent (Primary Dx); Dysuria; Essential hypertension (CMS/HCC); Chronic pain of right knee; Hospital discharge follow-up Start: 10-14-2024 End: 10-14-2024 ambulatory AISHA RAGLAND Not Available Start: 09-22-2024 End: 09-22-2024 ambulatory Aisha HINSONC Work Phone: [facility] Work Phone: Start: 09-22-2024 End: 09-22-2024 Patient encounter procedure Aisha Ragland PA-C Work Phone: [facility] Work Phone: Start: 09-09-2024 Non-patient / Non-visit Marlene Ragland PA-C Work Phone: [facility] Work Phone: Start: 09-09-2024 End: 09-11-2024 Admission to same day surgery center Aisha Ragland PA-C Work Phone: [facility] [place] Start: 09-09-2024 End: 09-11-2024 ambulatory Aisha Ragland PA-C Work Phone: [facility] Work Phone: Start: 09-03-2024 End: 09-03-2024 ambulatory Aisha HINSONC Work Phone: [facility] Work Phone: Start: 09-03-2024 End: 09-03-2024 Encounter for other preprocedural examination Aisha Ragland PA-C Work Phone: [facility] Start: 09-03-2024 End: 09-03-2024 Patient encounter procedure Aisha PEREZ-C Work Phone: [facility] Work Phone: Start: 09-03-2024 End: 09-03-2024 Patient encounter procedure Aisha Ragland PA-C Work Phone: [facility] Start: 09-03-2024 End: 09-03-2024 ambulatory Aisha Ragland PA-C Work Phone: [facility] Work Phone: Start: 09-01-2024 End: 09-01-2024 Discharged Recurring Aisha Ragland PA-C Work Phone: [facility] [place] Start: 09-01-2024 Registered Recurring Aisha brown PA-C Work Phone: [facility] [place] Start: 09-01-2024 End: 09-01-2024 ambulatory Aisha Ragland PA-C Work Phone: [facility] Work Phone: Start: 08-26-2024 End: 08-26-2024 Patient encounter procedure Aisha PEREZ-C Work Phone: [facility] Work Phone: Start: 08-26-2024 Encounter for preprocedural laboratory examination João Soto [facility] Start: 08-26-2024 End: 08-26-2024 Refill Erin Azar MA [facility] Comment on above: Chronic pain disorde r Start: 08-25-2024 End: 08-28-2024 Refill Aisha Ragland PA Work Phone: [facility] Comment on above: Chronic pain disorde r Start: 08-22-2024 End: 08-22-2024 Patient encounter procedure Aisha Ragland PA-C Work Phone: [facility] Ibn-Pvb-Gphbdec[facility] Testing Work Phone: Start: 08-22-2024 End: 08-22-2024 ambulatory Aisha Ragland PA-C Work Phone: [facility] Work Phone: Start: 08-22-2024 Encounter for other preprocedural examination João Soto [facility] Start: 08-21-2024 End: 08-21-2024 Office outpatient visit 25 minutes Aisha PEREZ Work Phone: [facility] Comment on above: Chronic pain of righ t knee (Primary Dx); Controlled type 2 diabetes mellitus with diabetic polyneuropathy, without long-term current use of insulin ([facility]); Acute non-recurrent frontal sinusitis; Anxiety; Preop examination Start: 08-21-2024 End: 08-21-2024 ambulatory AISHA RAGLAND Not Available Start: 08-21-2024 End: 08-21-2024 Bamboo flowsheet Aisha PEREZ Work Phone: [facility] Start: 08-21-2024 End: 08-21-2024 Bamboo flowsheet Aisha PEREZ Work Phone: [facility] Start: 08-21-2024 End: 08-21-2024 Preprocedural examination done Aisha PEREZ Work Phone: [facility] Start: 08-11-2024 End: 08-11-2024 ambulatory TABITHA VALENTINO Not Available Start: 08-11-2024 End: 08-11-2024 Patient encounter procedure Tabitha Valentino DPM Work Phone: [facility] Comment on above: Diabetic polyneuropa thy associated with type 2 diabetes mellitus ([facility]/HCC) (Primary Dx); Onychomycosis Start: 08-11-2024 End: 08-11-2024 Bamboo flowsheet aTbitha Valentino DPM Work Phone: [facility] Start: 08-11-2024 End: 08-11-2024 Bamboo flowsheet Tabitha Valentino DPM Work Phone: [facility] Start: 07-23-2024 Patient encounter status [facility] Start: 07-23-2024 Preprocedural examination done Aisha Ragland PA-C Work Phone: [facility] Start: 07-23-2024 End: 07-23-2024 ambulatory [facility] Work Phone: Start: 07-23-2024 End: 07-23-2024 Encounter for other preprocedural examination [facility] Start: 07-23-2024 End: 07-23-2024 Patient encounter procedure [facility] Work Phone: Start: 07-14-2024 End: 07-17-2024 [...] Zuri Hannah MD Work Phone: [facility] Comment on above: Essential hypertensi on (CMS/HCC); Controlled type 2 diabetes mellitus with diabetic polyneuropathy, without long-term current use of insulin (CMS/HCC) Start: 06-17-2024 End: 06-17-2024 Refill Zuri Hannah MD Work Phone: [facility] Comment on above: GERD without esophag itis Start: 06-07-2024 End: 06-07-2024 Patient encounter procedure [facility] [place] Work Phone: Start: 06-02-2024 End: 06-02-2024 ambulatory TABITHA VALENTINO Not Available Start: 06-02-2024 End: 06-02-2024 Patient encounter procedure Tabitha Valentino DPM Work Phone: [facility] Comment on above: Diabetic polyneuropa thy associated with type 2 diabetes mellitus (CMS/HCC) (Primary Dx); Onychomycosis Chronic pain disorde r Start: 05-24-2024 End: 05-26-2024 Refill Aisha PEREZ Work Phone: [facility] Comment on above: Reactive depression (CMS/HCC) Start: 04-24-2024 End: 04-24-2024 Office outpatient visit 25 minutes Aisha PEREZ Work Phone: [facility] Comment on above: Need for immunizatio n against influenza; Controlled type 2 diabetes mellitus with diabetic polyneuropathy, without long-term current use of insulin (CMS/HCC); Chronic pain disorder Start: 04-24-2024 End: 04-24-2024 ambulatory AISHA RAGLAND Not Available Start: 04-23-2024 End: 04-23-2024 ambulatory ANA-Ash Ragland Work Phone: [facility] Work Phone: Start: 04-23-2024 End: 04-23-2024 Patient encounter procedure ISELA Ragland Work Phone: [facility] Work Phone: Start: [...] 15 minutes Aisha PEREZ Work Phone: [facility] Comment on above: Reactive depression (CMS/HCC) (Primary Dx); Anxiety Start: 03-10-2024 End: 03-10-2024 Emergency department patient visit ISELA Ragland Work Phone: [facility]Emer[facility] Work Phone: Start: 01-28-2024 End: 01-28-2024 ambulatory AISHA RAGLAND Not Available Start: 12-19-2023 End: 12-19-2023 ambulatory [facility] Work Phone: Start: 12-19-2023 End: 12-19-2023 Patient encounter procedure [facility] Work Phone: Start: 11-03-2023 Patient encounter procedure Emanuelnormageorgi Valentino DPM Work Phone: [facility] Start: 10-17-2023 End: 10-18-2023 ambulatory Kaci Morton Facility:[facility] Start: 10-17-2023 End: 10-18-2023 ambulatory Aisha RAGLAND Facility:[facility] Start: 10-17-2023 End: 10-17-2023 Patient encounter procedure [facility] Start: 10-17-2023 End: 10-17-2023 Pain Management [facility] Start: 10-01-2023 End: 10-01-2023 Emergency department patient visit Dillon Hurtado Facility:[facility] Start: 10-01-2023 End: 10-01-2023 Emergency department patient visit Dillon Hurtado [facility] Start: 08-14-2023 End: 08-14-2023 Office outpatient visit 25 minutes Aisha PEREZ Work Phone: [facility] Comment on above: Chronic pain disorde r (Primary Dx); Controlled type 2 diabetes mellitus with diabetic polyneuropathy, without long-term current use of insulin ([facility]) Start: 07-15-2023 End: 07-15-2023 Emergency department patient visit ISELA Ragland Work Phone: [facility]Emer[facility] Work Phone: Start: 06-26-2023 End: 06-26-2023 ambulatory João Soto Other [employer] Other Start: 06-26-2023 Telephone encounter João URIBE G [facility] Start: 06-20-2023 End: 06-20-2023 ambulatory Lisa Castillo Other [employer] Other Start: 06-20-2023 Office outpatient vi sit 25 minutes Lisa Castillo [facility] Start: 06-11-2023 End: 06-11-2023 ambulatory João Soto Other [employer] Other Start: 06-11-2023 Telephone encounter João URIBE G [facility] Start: 03-21-2023 End: 03-21-2023 ambulatory João Soto Other [employer] Other Start: 03-21-2023 Office outpatient vi sit 25 minutes João Soto [facility] Start: 02-12-2023 End: 02-12-2023 ambulatory João Soto Other [employer] Other Start: 02-12-2023 Telephone encounter João URIBE G [facility] Start: 09-13-2022 Office outpatient vi sit 15 minutes João Soto [facility] Start: 09-13-2022 End: 09-13-2022 ambulatory PA-C Aisha Ragland Work Phone: [facility] Work Phone: Start: 09-13-2022 End: 09-13-2022 Patient encounter procedure PA-Ash Ragland Work Phone: [facility] Start: 06-14-2022 End: 06-14-2022 ambulatory João Soto Other [employer] Other Start: 06-14-2022 Patient encounter procedure João Soto [facility] Start: 06-12-2022 End: 06-12-2022 ambulatory Vicky Titus Other [employer] Other Start: 06-12-2022 Telephone encounter Vicky Titus [facility] Start: 02-23-2022 End: 02-24-2022 ambulatory AISHA RAGLAND Facility:[facility] Start: 10-05-2021 End: 10-05-2021 ambulatory João Soto Other [employer] Other Start: 10-05-2021 Office outpatient ne w 30 minutes João Soto [facility] Start: 06-29-2021 End: 06-29-2021 ambulatory Vicky Titus Other [employer] Other Start: 06-29-2021 Office outpatient vi sit 25 minutes Vicky Titus [facility] Start: 04-06-2021 Office outpatient vi sit 15 minutes Vicky Titus [facility] Start: 03-28-2021 End: 03-29-2021 ambulatory AISHA RAGLAND Facility:[facility] Start: 11-07-2017 End: 11-12-2017 Ambulatory WAYNE PAULA [facility] Start: 02-20-2017 End: 02-21-2017 Ambulatory DEFAULT PHYSICIAN Facility:[facility] Procedures Date Procedure Procedure Detail Performing Clinician Start: 04-15-2025 X-ray of right knee, three views Aisha Ragland PA-C Work Phone: Start: 03-26-2025 Screening mammograph y bi 2-view breast inc cad Aisha PEREZ Work Phone: Start: 03-18-2025 X-ray of right knee, three views Aisha Ragland PA-C Work Phone: Start: 03-04-2025 URINE CULTURE - [facility] Rob woodall External Data Provider Start: 03-04-2025 Urine culture Aisha brown PA-C Work Phone: Start: 01-13-2025 Complete blood count with white cell differential, automated Aisha Ragland PA Work Phone: Start: 01-13-2025 End: 01-13-2025 Comprehensive metabolic panel Aisha Ragland PA Work Phone: Start: 12-21-2024 Urine culture Aisha brown PA-C Work Phone: Start: 12-21-2024 Culture bacterial quanttative colony count urine Amanda Roberts CREATIVE SERVICES SPECIALIST Work Phone: Start: 10-25-2024 ALL CBC WITH AUTO DIFF Aisha Ragland PA Work Phone: Start: 09-09-2024 Total replacement of right knee joint Aisha PEREZ-C Work Phone: Start: 09-09-2024 X-ray of right knee, two views Aisha PEREZ-C Work Phone: Start: 09-03-2024 Plain [...] Start: 04-23-2024 Plain X-ray of right shoulder ANA-Ash Ragland Work Phone: Start: 04-23-2024 X-ray of both knees, three views ANA-Ash Ragland Work Phone: Start: 03-10-2024 Plain chest X-ray PA-C Aisha Aroramers Work Phone: Start: 08-15-2023 Urine albumin quantitative Aisha Ragland PA Work Phone: Start: 08-14-2023 Hemoglobin glycosylated a1c Aisha PEREZ Work Phone: Start: 09-13-2022 Plain X-ray of right shoulder PA-C Aisha Ragland Work Phone: Appendectomy Dillon Hurtado Arthroplasty of righ t hip joint Dillon Bryant Cholecystectomy Dillon Neal Vanu 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) Dillon Bryant Tonsillectomy Dillon Sookbox Plan of Treatment Date Care Activity Detail Author Start: 10-14-2025 Medicare Annual Wellness (AWV) Medicare Annual Wellness (AWV) [facility] Start: 04-15-2025 Hemoglobin A1c measurement Diabetes: Hemoglobin A1C [facility] Start: 04-15-2025 X-ray of right knee, three views XR knee RT 3V - NOT FOR ER USE [facility] Start: 04-15-2025 XR Knee - right 3 Views [facility] Start: 03-31-2025 End: 03-31-2025 Patient encounter procedure 03/31/2025 2:40 PM EDT Office Visit [facility] [address] [place] [phone] Aisha Ragland PA [address] [place] [address] [facility] Start: 03-18-2025 X-ray of right knee, three views XR knee RT 3V - NOT FOR ER USE [facility] Start: 03-18-2025 XR Knee - right 3 Views [facility] Start: 03-16-2025 Influenza vaccination Influenza Vacc ine (#1) [facility] Start: 03-04-2025 Urine culture [facility] Start: 03-04-2025 Bacteria identified in Urine by Culture Urine Culture [facility] Start: 02-10-2025 End: 02-10-2025 Patient encounter procedure 02/10/2025 4:30 PM EDT Procedure Visit [facility] [address] [place] [phone] Tabitha Valentino, DPM [address] [place] [facility] [place] [address] [facility] Start: 01-26-2025 End: 01-26-2025 Patient encounter procedure 01/26/2025 4:00 PM EDT Procedure Visit [facility] [address] [phone] Tabitha Valentino, DPM [address] [place] [facility] [place] [address] [facility] Start: 01-13-2025 End: 01-13-2025 Patient encounter procedure 01/13/2025 3:20 PM EDT Office Visit [facility] [address] [place] [phone] Yris Donnelly CREATIVE SERVICES SPECIALIST [address] [place] [address] Arrived [facility] Comment on above: Arrived Start: 01-13-2025 End: 01-13-2026 DBT Breast - bilateral screening Bilateral screening mammogram with tomosynthesis Imaging Routine Breast screening Expected: 01/13/2025, Ex[facility]: Comment on above: Expected: 01/13/2025 , Expires: 01/13/2026 Start: 01-06-2025 End: 01-06-2025 Patient encounter procedure 01/06/2025 2:40 PM EDT Office Visit [facility] [address] [place] [phone] Aisha Ragland PA [address] [place] [address] [facility] Start: 12-22-2024 Urine culture [facility] Start: 12-21-2024 Bacteria identified in Urine by Culture [facility] Start: 12-16-2024 End: 12-16-2024 Patient encounter procedure 12/16/2024 3:30 PM EDT Office Visit [facility] [address] [place] [address] Aisha Ragland PA [address] [place] [address] [facility] Start: 11-18-2024 Hemoglobin A1c measurement Diabetes: Hemoglobin A1C [facility] Start: 10-27-2024 End: 10-27-2024 Patient encounter procedure 10/27/2024 4:00 PM EDT Procedure Visit [facility] [address] [place] [phone] Tabitha Valentino, DPM [address] [place] [address] [facility] Start: 10-20-2024 End: 10-20-2024 Patient encounter procedure 10/20/2024 4:00 PM EDT Procedure Visit [facility] [address] [place] [phone] Tabitha Valentino, DPM [address] [place] [address] [facility] Start: 10-17-2024 Medicare Annual Wellness (AWV) Medicare Annual Wellness (AWV) [facility] Start: 10-17-2024 Urine screening for protein Diabetes: Urine Protein Screening [facility] Start: 09-09-2024 [facility] Start: 02-25-2025 Hospital admission [facility] Start: 09-03-2024 Plain X-ray of bilateral femurs XR femur BI [facility] Start: 09-03-2024 Plain X-ray of bilateral tibia and bilateral fibula XR tibia/fibula BI [facility] Start: 09-03-2024 X-ray of cervical spine XR cerv spine AP/LAT/FLX/EXT [facility] Start: 09-03-2024 XR Cervical spine 4 Views [facility] Start: 09-03-2024 XR Femur - bilateral Views [facility] Start: 09-03-2024 XR Tibia and Fibula - bilateral Views [facility] Start: 08-25-2024 End: 08-25-2024 Patient encounter procedure 08/25/2024 3:00 PM EST [facility] [address] [place] [phone] Aisha Ragland PA [address] [place] [address] [facility] Start: 08-21-2024 End: 08-21-2024 Patient encounter procedure 08/21/2024 3:00 PM EST [facility] [address] [place] [address] Aisha Ragland PA [address] [place] [address] [facility] Comment on above: Arrived Start: 08-15-2024 Urine screening for protein Diabetes: Urine Protein Screening [facility] Start: 08-04-2024 End: 08-04-2024 Patient encounter procedure 08/04/2024 4:00 PM EST Procedure [facility] [address] [place] [phone] Tabitha Valentino DPM [address] [place] [address] [facility] Start: 07-25-2024 Hemoglobin A1c measurement Diabetes: Hemoglobin A1C [facility] Start: 06-02-2024 End: 06-02-2024 Patient encounter procedure 06/02/2024 3:30 PM EST Procedure [facility] [address] [place] [phone] Tabitha Valentino DPM [address] [place] [address] [facility] Start: 05-26-2024 End: 05-26-2024 Patient encounter procedure 05/26/2024 3:45 PM EST Procedure Visit [facility] [address] [place] [phone] Tabitha Valentino DPM [address] [place] [address] [facility] [address] [facility] Start: 04-29-2024 Hemoglobin A1c measurement Diabetes: Hemoglobin A1C [facility] [employer] Start: 04-24-2024 End: 04-24-2024 Patient encounter procedure 04/24/2024 3:00 PM EDT Office Visit [facility] [address] [place] [phone] Aisha Ragland, PA [address] [place] [address] [facility] Start: 04-23-2024 Plain X-ray of right shoulder XR shoulder RT min 2V* [facility] Start: 04-23-2024 X-ray of both knees, three views XR knee BI 3V - NOT FOR ER USE [facility] Start: 04-23-2024 XR Knee - bilateral 3 Views [facility] Start: 04-23-2024 XR Shoulder - right Views [facility] Start: 03-24-2024 End: 03-24-2024 Patient encounter procedure 03/24/2024 4:15 PM EDT Procedure Visit [facility] [address] [place] [phone] Tabitha Valentino DPM [address] [place] [address] Arrived [facility] Comment on above: Arrived Start: 03-16-2024 Influenza vaccination Influenza Vacc ine (#1) [facility] Start: 12-10-2023 Glaucoma screening Diabetes: R etinopathy Screening [facility] Start: 11-28-2023 Medicare Annual Wellness (AWV) Medicare Annual Wellness (AWV) [facility] Start: 11-13-2023 Hemoglobin A1c measurement Diabetes: Hemoglobin A1C [facility] Start: 09-28-2023 End: 09-28-2023 Patient encounter procedure 09/28/2023 2:00 PM EDT Procedure Visit [facility] [address] [place] [phone] Tabitha Valentino DPM [address] [place] [address] [facility] Patient Education [facility] Work Phone: Patient referral [facility] Work Phone: Urine culture [facility] URINE CULTURE - [facility] URINE CULTU RE - [facility] Lab Routine 03/04/2025 8:15 PM EDT [facility] Immunizations Immunization Date Immunization Notes Care Provider Fa cili 04-24-2024 Seasonal, quadrivalent, recombinant, injectable influenza vaccine, preservative free Aisha PEREZ Work Phone: [facility] 04-24-2024 influenza virus vaccine, unspecified formulation Yris Donnelly NP Work Phone: [facility] 03-27-2023 Influenza, High-dose Seasonal, Quadrivalent, Preservative Free Aisha PEREZ Work Phone: [facility] 03-27-2023 pneumococcal conjuga te vaccine, 13 valent Aisha PEREZ Work Phone: [facility] 03-27-2023 influenza virus vaccine, unspecified formulation Emanuelnormageorgi Valentino DPM Work Phone: [facility] 2022 influenza, high dose seasonal, preservative-free Aisha Ragland PA Work Phone: [facility] 2022 Influenza, High-dose Seasonal, Quadrivalent, Preservative Free Aisha Ragland PA Work Phone: [facility] 04-25-2021 Influenza, High-dose Seasonal, Quadrivalent, Preservative Free Aisha Ragland PA Work Phone: [facility] 04-06-2021 Kenalog -40 mg Vicky Calve y Other [employer] Other 10-26-2020 Kenalog -40 mg Vicky Calve y Other [employer] Other 09-28-2020 pneumococcal polysaccharide vaccine, 23 valent Aisha Ragland PA Work Phone: [facility] 07-23-2020 tetanus toxoid, reduced diphtheria toxoid, and acellular pertussis vaccine, adsorbed PA-C Aisha Ragland Work Phone: [facility] 07-20-2020 Kenalog -40 mg Vicky Calve y Other [employer] Other 04-26-2020 influenza, high dose seasonal, preservative-free Aisha Ragland PA Work Phone: [facility] 04-26-2020 Influenza, High-dose Seasonal, Quadrivalent, Preservative Free Aisha Ragland PA Work Phone: [facility] 04-21-2020 Kenalog -40 mg Vicky Calve y Other [employer] Other 02-11-2020 Kenalog -40 mg Vicky Calve y Other [employer] Other 12-03-2019 Kenalog -40 mg Vicky lopez Other [employer] Other 05-21-2019 influenza, high dose seasonal, preservative-free Aisha Obie PA Work Phone: [facility] 05-26-2018 influenza, high dose seasonal, preservative-free Aisha Obie PA Work Phone: [facility] 06-27-2017 pneumococcal polysaccharide vaccine, 23 valent Aisha Obie PA Work Phone: [facility] 05-05-2017 influenza, high dose seasonal, preservative-free Aisha Obie PA Work Phone: [facility] 04-24-2017 influenza, injectabl e, quadrivalent, preservative free Aisha Obie PA Work Phone: [facility] 05-20-2016 influenza, high dose seasonal, preservative-free Aisha Obie PA Work Phone: [facility] 05-11-2015 influenza, injectabl e, quadrivalent, contains preservative Aisha Obie PA Work Phone: [facility] 05-26-2014 influenza, injectabl e, quadrivalent, contains preservative Aisha Obie PA Work Phone: [facility] 05-06-2008 influenza virus vaccine, whole virus Aisha Obie PA Work Phone: [facility] 05-14-2007 influenza virus vaccine, whole virus Aisha Obie PA Work Phone: [facility] NEGATED: Highlighted row has not occurred!04-26-2019 influenza, high dose seasonal, preservative-free PA-C Aisha Obie Work Phone: [facility] Payers Date Payer Category Payer Self-pay [id number] 2023 Private Health Insurance A[employer] Ne mber [id number] 2020 Medicare (Managed Care) FORMERLY [facility]1983 HEALTH [id number] 2020 Unknown 2020 Unknown [id number] 2.16.840.1.830673.19 1959 Unknown [id number] 1945 Unknown [id number] 2.16.840.1.540690.3.579.2 .593 1945 Unknown [id number] 2.16.840.1.934228.3.579.2 .593 1945 Unknown [id number] 2.16.840.1.405944.3.579.2 .72 1945 Unknown [id number] 2.16.840.1.764116.3.579.2 .727 1945 Unknown [id number] 2.16.840.1.757922.3.579.2 .727 1947 Unknown [id number] 2.16.840.1.331777.3.579.2 .1258 1947 Unknown [id number] 2.16.840.1.010711.3.579.2 .1258 1947 Unknown [id number] 2.16.840.1.815995.3.579.2 .1258 1947 Unknown [id number] 2.16.840.1.601780.3.579.2 .1258 1947 Unknown [id number] 2.16840.1.876910.3.579.2 .1258 1947 Unknown [id number] 2.840.1.498366.3.579.2 .1258 1947 Unknown [id number] 2.840.1.449034.3.579.2 .1258 1947 Unknown [id number] 2.840.1.288309.3.579.2 .1258 1947 Unknown [id number] 2.840.1.122248.3.579.2 .1258 1945 Unknown [id number] 2.840.1.323178.3.579.2 .1258 1945 Unknown [id number] 2.840.1.952602.3.579.2 .1259 Medicare [id number] Unknown HCAP/HFA/FAP Active [id number] Unknown [id number] 2.16840.1.040570.3.579.2 .531 Unknown [id number] 2.16840.1.410748.3.579.2 .531 Unknown [id number] 2.16.840.1.939924.3.579.2 .531 Unknown [id number] 2.16840.1.378101.3.579.2 .531 Unknown [id number] 2.16.840.1.391745.3.579.2 .531 Unknown [id number] 2.16.840.1.103535.3.579.2 .531 Unknown [id number] 2.16.840.1.003933.3.579.2 .531 Unknown [id number] 2.16.840.1.738202.3.579.2 .531 Unknown [id number] 2.16.840.1.365295.3.579.2 .531 Unknown [id number] 2.16.840.1.295059.3.579.2 .531 Unknown [id number] 2.16.840.1.400146.3.579.2 .531 Social History Date Type Detail Facility Start: 08-14-2023 End: 10-14-2024 Sex Assigned At [facility] [employer] Other Start: 07-24-2020 End: 09-09-2024 Tobacco smoking status MEIS Never smoked tobacco (finding) [facility] Start: 1945 Sex Assigned At Female F [facility] Start: 03-27-2023 Tobacco use and exposure Smokeless tobacco non-user [facility] Start: 08-14-2023 End: 01-13-2025 Alcohol intake Current drinker of alcohol (finding) [facility] Start: 08-14-2023 End: 10-14-2024 History of Social function [facility] Start: 12-25-2022 Alcohol Comment 1-2 drinks les s than monthly in the past year, Caffeine intake: 2-3 cups per day [facility] Start: 1945 Sex Assigned At Not on file N [facility] Start: 07-23-2024 End: 12-23-2024 Sex Female (finding) [facility] Start: 09-10-2024 SDOH Follow up SDOH Follow up [facility] Work Phone: Medical Equipment Procedure Code Equipment Code Equipment Origin al Text Equipment Identifier Dates Arthroplasty, knee, total, minimally invasive Orthopaedic cement, non-medicated [id number] FDA Start: 09-09-2024 Arthroplasty, knee, total, minimally invasive Uncoated knee tibia prosthesis, metallic ()[id number] FDA Start: 09-09-2024 Arthroplasty, knee, total, minimally invasive Uncoated knee femur prosthesis ()[id number] FDA Start: 09-09-2024 Arthroplasty, knee, total, minimally invasive Tibial insert ()[id number] FDA Start: 09-09-2024 Arthroplasty, knee, total, minimally invasive Knee stem ()[id number] FDA Start: 09-09-2024 Arthroplasty, knee, total, minimally invasive Polymer orthopaedic cement restrictor, non-bioabsorbable, sterile ()[id number] FDA Start: 09-09-2024 Orthopaedic bone screw, non-bioabsorbable, non-sterile ()[id number] FDA Start: 04-25-2019 Orthopaedic bone screw, non-bioabsorbable, non-sterile ()[id number] FDA Start: 04-25-2019 Orthopaedic bone screw, non-bioabsorbable, non-sterile ()[id number] FDA Start: 04-25-2019 Orthopaedic bone washer, non-sterile ()[id number] FDA Start: 04-25-2019 [id number] Start: 04-26-2022 Lancets (OneTouc h Delica Plus [id number]) [facility] [id number] Start: 04-26-2022 USE DIRECTED ONCE DAILY [id number] Start: 07-17-2024 USE DIRECTED ONCE DAILY [id number] Start: 07-14-2024 Blood Sugar Diagnostic (Onetouch Ultra [...] 09-11-2024 Functional status Patient Not at Baseline [facility] Work Phone: 10-17-2023 Functional Status N/A [facility] 10-01-2023 Functional Status N/A [facility] Mental Status Date Assessment Result Facility 09-11-2024 Cognitive function Cognitive Sta tus Patient at Baseline [facility] Work Phone: Clinical Notes 04-15-2013 to 02-27-2025 Telephone Encounter - ANA Whitlock - 02/27/2025 2:27 PM EDTTelephone Encounter - ANA Whitlock - 02/27/2025 2:27 PM EDT Note Date & Type Note Facility 02-27-2025 Telephone encounter Note Form atting of this note might be different from the original. completed [facility] 02-27-2025 Miscellaneous Notes Formattin g of this note might be different from the original. completed documented in this encounter [facility] 01-26-2025 Evaluation note Diagnosis Onset Date Resolution Primary osteoarthritis of left knee acute January 26, 2025 1:04pm Primary osteoarthritis of right knee acute January 26, 2025 1:04pm Primary osteoarthritis of right shoulder acute January 26 1:04pm Status post total right knee replacement noneactive January 26, 2025 1:04pm Avulsion fracture acute 2024 12:45pm Primary osteoarthritis of left knee acute March 18 12:45pm Primary osteoarthritis of right knee acute March 18 12:45pm Primary osteoarthritis of right shoulder acute March 18, 2025 12:45pm Status post total right knee replacement noneactive March 18, 2025 12:45pm Avulsion fracture acute April 15, 2025 2:47pm Primary osteoarthritis of left knee acute April 15 2:47pm Primary osteoarthritis of right knee acute April 15 2:47pm Primary osteoarthritis of right shoulder acute April 15 2:47pm Status post total right knee replacement noneactive April 15 2:47pm [facility] Work Phone: 1(361) 934-340307-01-2025 History of Present illness Narrative* ANA Whitlock - 01/13/2025 2:40 PM EDT Images from the original note [...] walker for mobility and has increased her ofq-er-emoei repetitions from 5 to 12. She can now walk to the bathroom without using a wheelchair. Fatigue has been persistent since her COVID-19 infection, and she has also been dealing with anemia, which contributes to her fatigue. Additionally, she has been experiencing twitching in her face and mouth, first noticed when she hadher teeth removed. She wears dentures during the [...] TABLET BY MOUTH EVERY DAY glucose blood (United Allergy ServicesTouch Ultra) test strip USE DIRECTED ONCE DAILY glucose blood (OneTouch Ultra) test strip USE DIRECTED ONCE DAILY HYDROcodone-acetaminophen ([place]) 5-325 MG tablet 1 tablet, Oral, 3 times daily Lancets (United Allergy ServicesTouch Delica Plus Khhsoe92L) misc lidocaine (Lidoderm) 5 % patch 1 [...] to address potential underlying infection contributing to fatigue;prescription sent to pharmacy. - Follow-up in 3 [...] long- term current use of insulin (HCC) Relevant Orders [...] Influenza Vaccine (1) 03/16/2025 documented in this encounterPhelps [id number] Evaluation note* Diagnosis Onset Date Resolution Status [...] knee replacement noneactive January 26, 2025 1:04pm [facility] Work Phone: 1(214) 791-906606-08-2025 Evaluation note* Diagnosis Onset Date Resolution Status [...] Primary osteoarthritis of left knee acute March 18 025 12:45pm Primary osteoarthritis of right knee acute March 18 025 12:45pm Primary osteoarthritis of right shoulder acute March 18 025 12:45pm Status post total right knee replacement noneactive March 18 12:45pm [facility] Work Phone: 1(308) 885-393105-19-2025 Evaluation note* Diagnosis Onset Date Resolution Status [...] knee replacement noneactive January 26, 2025 1:04pm [facility] Work Phone: 1(158) 756-800804-14-2025 History of Present illness Narrative* Tabitha Valentino, SUNG - 10/27/2024 4:00 PM EDT Subjective Patient ID: Nata Pete is a 79 y.o. female who presents for Toenail Care. Had total knee replacement in Sep 09. was released from the [facility] in [place] october 03 2024. States knee has healed wonderfully. Nail care Location nails on bilateral feet Severity of symptoms mild Onset gradual Status no change Context hard to trim, hard to reach Nails thickened, discolored, pain Relieved by debridement, filing down nails, clipping nails History of ulcers/wounds no Blood sugar 102 Aggravated by shoe gear, pressure DLS 10/14/2024 PCP Zuri Hannah MD/Charito aRgland NP ROS General: Chillsdenies. Feverdenies. Musculoskeletal: muscle [...] DAILY, Disp: 100 each, Rfl: 11 HYDROcodone-acetaminophen ([place]) 5-325 MG tablet, Take 1 tablet by mouth in the morning and 1 tablet in the evening and 1 tablet before bedtime., Disp: 90 tablet, Rfl: 0 Lancets (United Allergy ServicesTouch Delica Plus Yglflb31N) [facility], , Disp: , Rfl: lidocaine (Lidoderm) 5 [...] All of the nondystrophic nails were debrided [place] debr 2 distal documented in this encounterPhelps [id number] Telephone encounter Note* Telephone Encounter - ANA Whitlock - 10/25/2024 2:24 PM EDT completed [id number] Miscellaneous Notes* Telephone Encounter - ANA Whitlock - 10/25/2024 2:24 PM EDT completed documented in this encounterPhelps [id number] Evaluation note* Diagnosis Onset Date Resolution Status [...] tract infection) acute December 21, 2024 11:34am [facility] Work Phone: 1(304) 488-773504-01-2025 History of Present illness Narrative* ANA Whitlock - 10/14/2024 3:30 PM EDT Images from the original note were not included. Nata Pete is a 79 y.o. female presents with chief complaint of Medicare Annual Wellness Visit Subsequent and Hospital Follow-up (Follow up from SNF - [facility] completed TCM) HPI: Flowsheet Row Patient Outreach from 10/09/2024 in [facility] with Annika Espinoza MA Hospital Information ED, Hospital or Custodial Facility Discharge? Custodial Facility Discharge Date 10/03/24 Discharged To: Home Setting Custodial Facilities [facility] Engagement Admission Date 09/11/24 Medications Discharge medications reviewed and reconciled from hospital? No Appointments Does the patient have a primary care provider? Yes Does the patient have any upcoming specialty appointments? Yes Self Management Does patient have home health? yes What is the home health agency? [facility] Patient Teaching Wrap Up Medicare Wellness [...] Do you have a medical power of business attorney?: No History of Present Illness The [...] test strip USE DIRECTED ONCE DAILY HYDROcodone-acetaminophen ([place]) 5-325 MG tablet 1 tablet, Oral, 3 times daily Lancets (United Allergy ServicesTouch Delica Plus Udygof65N) misc lidocaine (Lidoderm) 5 % patch 1 [...] not completely eliminate it. She will pick pulling machine tender her prescription from the pharmacy today. If additional pain management is needed, further adjustments will be considered. Assessment/Plan Problem List Items Addressed This Visit None Health Maintenance Due Topic Date Due Diabetes: Retinopathy Screening 12/10/2023 Medicare Annual Wellness (AWV) 10/17/2024 documented in this encounterPhelps [id number] Evaluation note* Diagnosis Onset Date Resolution Status [...] replacement noneactive December 01, 2024 4 :05pm [facility] Work Phone: 1([phone]) 683-622802-27-2025 Discharge summary Author Adrian Anne [facility] Note Date/Time September 11, 2024 12:33pm [facility] [address] [place] [address] Discharge Summary Signed Patient: Nata Pete MR#: [id number] : 1945 Acct:[id number] Age/Sex: 79 / F Adm Date: 5 Loc: Room: [address] [place] [address]: João Soto DO Copies to: [...] breath. Additionally, please call our office at [phone] should any of the followingoccur: wound bleeding [...] laxatives as directed. ? You may take alby-mdz-jbnqpts Benadryl if itching occurs without a rash or hives. ? Icing and elevation will help relieve pain as well, do not underestimate the power of ice and elevation. We do recommend that you stop taking narcotic pain medications by 4-6 weeks after surgery and if necessary, continue to use anti-inflammatory medications such as Mobic (meloxicam), Celebrex (celecoxib), or an pamy-qbm-hckbuzr medication (Aleve, Motrin, Ibuprofen, etc). Driving an [...] feel free to call our office at [phone]. You are a priority of ours and we will not be upset with you if you call. We would much rather you call to confirm aspects of your recovery process as opposed to possibly hindering your recovery with inappropriate care. We are committed to providing you with the best care possible. Dr. João Soto [facility] [address] [place] [address] [email or web address] Instructions: Know your Meds Prescriptions: Continued lorazepam [...] mg tablet 500 mg PO DAILY omega 7-vaw-tql-fish oil [Fish Oil] 1,200 (144-216) mg capsule [...] % (Auto) 66.8, Lymph % (Auto) 16.6, [place] % (Auto) 11.4, Eos % (Auto) 4.6, Baso % (Auto) 0.6, Nucleat RBC Rel Count 0.0, Neut # (Auto) 3.7, Lymph # (Auto) 0.9 L, [place] # (Auto) 0.6, Eos # (Auto) 0.3, [...] signed by Adrian Anne DO> 09/11/24 1233 [facility] Work Phone: 1(235) 933-673102-27-2025 Progress note Author Adrian Anne [facility] Note Date/Time September 11, 2024 12:31pm [facility] [address] [place], [place] [id number] Orthopedic Progress Note Signed Patient: Nata Pete MR#: [id number] : 1945 Acct:[id number] Age/Sex: 79 / F Adm Date: 5 Loc: 4N Room: 3N0631-6 Type: REG [facility] Attending Dr: João Soto DO Copies to: [...] MPV Neut % (Auto) Lymph % (Auto) [place] % (Auto) Eos % (Auto) Baso % (Auto) Nucleat RBC Rel Count Neut # (Auto) Lymph # (Auto) [place] # (Auto) Eos # (Auto) Baso # [...] % (Auto) 66.8 Lymph % (Auto) 16.6 [place] % (Auto) 11.4 Eos % (Auto) 4.6 Baso % (Auto) 0.6 Nucleat RBC Rel Count 0.0 Neut # (Auto) 3.7 Lymph # (Auto) 0.9 L [place] # (Auto) 0.6 Eos # (Auto) 0.3 [...] office with any questions or concerns [facility] [place] [facility]. Await PT/OT eval's and input. Documented By: Adrian Anne DO 09/11/24 1230 Signed By: <Electronically signed by Adrian Anne DO> 09/11/24 1231 [facility] Work Phone: 1(377) 373-380602-27-2025 [place] [address] Discharge Summary Signed Patient: Nata Pete MR#: [id number] : 1945 Acct:[id number] Age/Sex: 79 / F Adm Date: 5 Loc: Room: [address] [place] [address]: João Soto DO Copies to: [...] breath. Additionally, please call our office at [phone] should any of the followingoccur: wound bleeding [...] laxatives as directed. ? You may take vrny-cjv-sqlfqsk Benadryl if itching occurs without a rash or hives. ? Icing and elevation will help relieve pain as well, do not underestimate the power of ice and elevation. We do recommend that you stop taking narcotic pain medications by 4-6 weeks after surgery and if necessary, continue to use anti-inflammatory medications such as Mobic (meloxicam), Celebrex (celecoxib), or an vgys-cmj-ujisuqj medication (Aleve, Motrin, Ibuprofen, etc). Driving an [...] feel free to call our office at [phone]. You are a priority of ours and we will not be upset with you if you call. We would much rather you call to confirm aspects of your recovery pr ocess as opposed to possibly hindering your recovery with inappropriate care. We are committed to providing you with the best care possible. Dr. João Soto [facility] [address] [place] [address] [email or web address] Instructions: Know your Meds Prescriptions: Continued lorazepam [...] mg tablet 500 mg PO DAILY omega 2-arg-wig-fish oil [Fish Oil] 1,200 (144-216) mg capsule [...] % (Auto) 66.8, Lymph % (Auto) 16.6, [place] % (Auto) 11.4, Eos % (Auto) 4.6, Baso % (Auto) 0.6, Nucleat RBC Rel Count 0.0, Neut # (Auto) 3.7, Lymph # (Auto) 0.9 L, [place] # (Auto) 0.6, Eos # (Auto) 0.3, [...] DO 09/11/24 1232 Signed By: 09/11/24 1233 [facility]02-27-2025 [place] [address] Orthopedic Progress Note Signed Patient: Nata Pete MR#: [id number] : 1945 Acct:[id number] Age/Sex: 79 / F Adm Date: 5 Loc: Room: 1Q7832-4 Type: REG [facility] Attending Dr: João Soto DO Copies to: [...] MPV Neut % (Auto) Lymph % (Auto) [place] % (Auto) Eos % (Auto) Baso % (Auto) Nucleat RBC Rel Count Neut # (Auto) Lymph # (Auto) [place] # (Auto) Eos # (Auto) Baso # [...] % (Auto) 66.8 Lymph % (Auto) 16.6 [place] % (Auto) 11.4 Eos % (Auto) 4.6 Baso % (Auto) 0.6 Nucleat RBC Rel Count 0.0 Neut # (Auto) 3.7 Lymph # (Auto) 0.9 L [place] # (Auto) 0.6 Eos # (Auto) 0.3 [...] post right total knee arthroplasty by Dr. oSto on 09/09/2024. -WBAT with ROMAT -Antibiotic prophylaxis [...] office with any questions or concerns [facility] [place] [facility]. Await PT/OT eval's and input. Documented By: Adrian Anne DO 09/11/24 1230 Signed By: 09/11/24 1231 [facility]02-26-2025 Progress note Author Adrian Anne [facility] Note Date/Time September 10, 2024 9:44am [facility] [address] [place] [address] Orthopedic Progress Note Signed Patient: Nata Pete MR#: [id number] : 1945 Acct:[id number] Age/Sex: 79 / F Adm Date: 5 Loc: Room: [address] [place] [address] Type: REG [facility] Attending Dr: João Soto [...] MPV Neut % (Auto) Lymph % (Auto) [place] % (Auto) Eos % (Auto) Baso % (Auto) Nucleat RBC Rel Count Neut # (Auto) Lymph # (Auto) [place] # (Auto) Eos # (Auto) Baso # [...] % (Auto) 73.8 Lymph % (Auto) 11.8 [place] % (Auto) 12.5 Eos % (Auto) 1.8 Baso % (Auto) 0.1 Nucleat RBC Rel Count 0.1 Neut # (Auto) 4.6 Lymph # (Auto) 0.7 L [place] # (Auto) 0.8 Eos # (Auto) 0.1 [...] office with any questions or concerns [facility] [place]. Await PT/OT eval's and input. Documented By: Adrian Anne DO 09/10/24 0942 Signed By: <Electronically signed by Adrian Anne DO> 09/10/24 0944 [facility] Work Phone: 1(755) 458-432502-26-[address] [address] Orthopedic Progress Note Signed Patient: Nata Pete MR#: [id number] : 1945 Acct:[id number] Age/Sex: 79 / F Adm Date: 5 Loc: 4N Room: [address] [place] [address] Type: REG [facility] Attending Dr: João Soto [...] MPV Neut % (Auto) Lymph % (Auto) [place] % (Auto) Eos % (Auto) Baso % (Auto) Nucleat RBC Rel Count Neut # (Auto) Lymph # (Auto) [place] # (Auto) Eos # (Auto) Baso # [...] % (Auto) 73.8 Lymph % (Auto) 11.8 [place] % (Auto) 12.5 Eos % (Auto) 1.8 Baso % (Auto) 0.1 Nucleat RBC Rel Count 0.1 Neut # (Auto) 4.6 Lymph # (Auto) 0.7 L [place] # (Auto) 0.8 Eos # (Auto) 0.1 [...] office with any questions or concerns [facility] [place]. Await PT/OT eval's and input. Documented By: Adrian Anne DO 09/10/24 0942 Signed By: 09/10/24 0944 [facility]02-25-2025 Progress note Author João Soto [facility] Note Date/Time September 09, 2024 1:50pm [facility] [address] [place] [address] Orthopedic Progress Note Signed Patient: Nata Pete MR#: [id number] : 1945 Acct:[id number] Age/Sex: 79 / F Adm Date: 5 Loc: 4N Room: 6H0731-7 Type: REG [facility] Attending Dr: João Stoo DO Copies to: ~ Date of Service: [...] office with any questions or concerns [facility] [place]. Await PT/OT eval's and input. Dr. João Soto [facility] [address] [place] [address] Documented By: João Soto DO 09/09/24 1347 Signed By: <Electronically signed by João Soto DO> 09/09/24 1896 [facility] Work Phone: 1(766) 157-229602-25-[address] [address] Orthopedic Progress Note Signed Patient: Nata Pete MR#: [id number] : 1945 Acct:[id number] Age/Sex: 79 / F Adm Date: 5 Loc: Room: [address] [place] [address] Type: REG [facility] Attending Dr: João Soto [...] office with any questions or concerns [facility] [place]. Await PT/OT eval's and input. Dr. João Soto [facility] [address] [place], [place] [id number] Documented By: João Soto DO 09/09/24 1347 Signed By: 09/09/24 1350 [facility]02-19-2025 Evaluation note* Diagnosis Onset Date Resolution Status [...] knee replacement noneactive October 20, 2024 4:22pm [facility] Work Phone: 1(607) 570-779502-13-2025 Miscellaneous Notes* Telephone Encounter - Shawna Velasquez NP - 08/28/2024 9:04 AM EST Rx sent on 08/26/24. documented in this encounterPhelps HealthDjwxwyhxgx06-30-4468 Telephone encounter Note* Telephone Encounter - Shawna Velasquez NP - 08/28/2024 9:04 AM EST Rx sent on 08/26/24. [facility] Work Phone: [phone] History of Present illness Narrative* Maggi Marquez LPN - 08/26/2024 8:47 AM EST Last refilled on 07/29/24. Last OV was 08/21/24. Narc refill- Charito refilled last time documented in this encounterPhelps [id number] History of Present illness Narrative* ANA Whitlock [...] test strip USE DIRECTED ONCE DAILY HYDROcodone-acetaminophen ([place]) 5-325 MG tablet 1 tablet, Oral, 3 times daily Lancets (United Allergy ServicesTouch Delica Plus Fywryj40K) misc lidocaine (Lidoderm) 5 % patch 1 [...] 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 ([facility]) Relevant Orders POCT glycated hemoglobin, total docked device Health Maintenance Due Topic Date Due Diabetes: Retinopathy Screening 12/10/2023 Diabetes: Hemoglobin A1C 07/25/2024 documented in this encounterPhelps [id number] History of Present illness Narrative* Tabitha Valentino, [...] DAILY, Disp: 100 each, Rfl: 11 HYDROcodone-acetaminophen ([place]) 5-325 MG tablet, Take 1 tablet by mouth in the morning and 1 tablet in the evening and 1 tablet before bedtime., Disp: 90 tablet, Rfl: 0 Lancets (United Allergy ServicesTouch Delica Plus Dkxapa06E) [facility], , Disp: , Rfl: lidocaine (Lidoderm) 5 [...] History: Diagnosis Date Arthritis COVID 07/2021 Diabetes ([facility]) High cholesterol ([facility] HEALTH/HCC) Hip fracture ([facility]) Hypertension ([facility]) Osteoarthritis Surgical Histories Past Surgical History: Procedure [...] All of the nondystrophic nails were debrided Linden debr 2 distal documented in this [facility]01-08-2025 Evaluation note* Diagnosis Onset Date Resolution Status [...] knee arthroplasty acute September 09, 2024 5:51am [facility] Work Phone: 1(363) 857-469601-08-2025 Evaluation note* Diagnosis Onset Date Resolution Status [...] osteoarthritis of right shoulder acute September 03 025 3:09pm Osteoarthritis of right shoulder chronic September 03 025 3:09pm S/P total knee arthroplasty deleted September 09, 2024 5:51am Primary osteoarthritis of right knee acute September 22, 2024 12:54pm Status post total right knee replacement noneactive September 22, 2024 12:54pm [facility] Work Phone: 1(694) 297-954001-02-2025 Miscellaneous Notes* Telephone Encounter - ANA Whitlock - 07/17/2024 9:57 AM EST completed documented in this encounterPhelps [id number] Telephone encounter Note* Telephone Encounter - ANA Whitlock - 07/17/2024 9:57 AM EST completed [facility] [id number] History of Present illness Narrative* ANA Whitlock [...] TABLET BY MOUTH EVERY DAY glucose blood (United Allergy ServicesTouch Ultra) test strip USE DIRECTED ONCE DAILY HYDROcodone-acetaminophen (Bronx) 5-325 MG tablet 1 tablet, Oral, 3 times daily Lancets (OneTouch Delica Plus Sunhnl60L) misc lidocaine (Lidoderm) 5 % patch 1 [...] Diabetes: Retinopathy Screening 12/10/2023 documented in this [facility]12-12-2024 Telephone encounter Note* Telephone Encounter - ANA Whitlock - 06/26/2024 8:57 AM EST completed [facility] [id number] Miscellaneous Notes* Telephone Encounter - ANA Whitlock - 06/26/2024 8:57 AM EST completed documented in this [facility]11-23-2024 Evaluation note* Diagnosis Onset Date Resolution Status Admit Date Acute lower respiratory infection acute June 07, 2 024 1:46pm Osteoarthritis of left knee acute July 23, 2024 3:01pm Osteoarthritis of right knee acute July 23, 2024 3:01pm Pre-op exam acute July 23, 2024 3:01pm Osteoarthritis of right shoulder chronic July 23 3:01pm [facility] Work Phone: 1(726) 868-431111-23-2024 Evaluation note* Diagnosis Onset Date Resolution Status [...] shoulder chronic September 03 2 025 3:09pm [facility] Work Phone: 1(356) 310-262611-18-2024 History of Present illness Narrative* Tabitha Valentino [...] gear, pressure DLS 04-24-24 PCP Zuri Hannah MD/ALINA Castelan General: Chillsdenies. Feverdenies. Musculoskeletal: muscle weaknessdenies. Bone/joint [...] Disp: 90 tablet, Rfl: 3 glucose blood (United Allergy ServicesTouch Ultra) test strip, USE DIRECTED ONCE DAILY, Disp: 100 each, Rfl: 11 HYDROcodone-acetaminophen (Bronx) 5-325 MG tablet, Take 1 tablet by mouth in the morning and 1 tablet in the evening and 1 tablet before bedtime., Disp: 90 tablet, Rfl: 0 Lancets (United Allergy ServicesTouch Delica Plus Snbgcg82Q) [facility], , Disp: , Rfl: lidocaine (Lidoderm) 5 [...] All of the nondystrophic nails were debrided Linden debr 2 distal documented in this [facility]11-18-2024 Miscellaneous Notes* Telephone Encounter - ANA Whitlock - 06/02/2024 12:15 PM EST completed documented in this [facility]11-18-2024 Telephone encounter Note* Telephone Encounter - ANA Whitlock - 06/02/2024 12:15 PM EST completed [place] [id number] Telephone encounter Note* Telephone Encounter - ANA Whitlock - 05/26/2024 9:13 AM EST completed [place] [id number] Miscellaneous Notes* Telephone Encounter - ANA Whitlock - 05/26/2024 9:13 AM EST completed documented in this [facility]10-10-2024 History of Present illness Narrative* ANA Whitlock [...] MOUTH EVERY DAY for 30 glucose blood (BetterDoctoruch Ultra) test strip USE DIRECTED ONCE DAILY HYDROcodone-acetaminophen (Bronx) 5-325 MG tablet 1 tablet, Oral, 2 times daily Lancets (United Allergy ServicesTouch Delica Plus Skpvyc45C) misc lidocaine (Lidoderm) 5 % patch 1 [...] prescription will be sent to Bob in [place]. 3. Dental Issues. She has one more [...] Visit Chronic pain disorder Relevant Medications HYDROcodone-acetaminophen (Bronx) 5-325 MG tablet Controlled type 2 diabetes mellitus with diabetic polyneuropathy, 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 ([facility]) Relevant Orders POCT glycated hemoglobin, total docked device (Completed) Other Visit Diagnoses Need for immunization against influenza Relevant Orders Flu vaccine, quadrivalent, recombinant, preservative free (Completed) Health Maintenance Due Topic Date Due Diabetes: Retinopathy Screening 12/10/2023 Influenza Vaccine (1) 03/16/2024 Diabetes: Hemoglobin A1C 04/29/2024 documented in this encounterPhelps [id number] History of Present illness Narrative* Tabitah Valentino, [facility] - 03/24/2024 4:15 PM EDT Subjective Patient [...] am Aggravated by shoe gear, pressure DLS 7-15-24 PCP Zuri Hannah MD ROS General: Chillsdenies. [...] Disp: 90 tablet, Rfl: 3 glucose blood (BetterDoctoruch Ultra) test strip, USE DIRECTED ONCE DAILY, Disp: 100 each, Rfl: 11 HYDROcodone-acetaminophen (Bronx) 5-325 MG tablet, Take 1 tablet by mouth in the morning and 1 tablet before bedtime., Disp: 60 tablet, Rfl: 0 Lancets (United Allergy ServicesTouch Delica Plus Ygmkwy10I) [facility], , Disp: , Rfl: lidocaine (Lidoderm) 5 [...] nondystrophic nails were debrided documented in this encounterPhelps [id number] History of Present illness Narrative* ANA Whitlock - 03/13/2024 11:00 AM EDT Images from the original note were not included. Nata Pete is a 78 y.o. female presents with chief complaint of No chief complaint on file. HPI: History of Present Illness Patient here for anxiety Patient was in ER on 03-10-2024 the dentist sent her to [facility] ER due to fact she was acting [...] MOUTH EVERY DAY for 30 glucose blood (United Allergy ServicesTouch Ultra) test strip USE DIRECTED ONCE DAILY HYDROcodone-acetaminophen (Bronx) 5-325 MG tablet 1 tablet, Oral, 2 times daily Lancets (OneTouch Delica Plus Mvhihj08O) misc lidocaine (Lidoderm) 5 % patch 1 [...] Influenza Vaccine (1) 03/16/2024 documented in this encounterPhelps [id number] Evaluation + Plan note Extracted from: Title:Pain [...] states that they have been giving her Bronx 5/325 twice daily as needed pain that [...] All Problems Resolved: Hypertension / SNOMED CT 69554151 Resolved: Osteoarthritis / SNOMED CT 6532972472 Resolved: High cholesterol / SNOMED CT 7873153673 Resolved: Diabetes mellitus / SNOMED CT 994825738 Histories Past Medical History: Resolved Hypertension (85791423): Resolved. Osteoarthritis (6734306734): Resolved. High cholesterol (0494947207): Resolved. Diabetes mellitus (954255092): Resolved. Family History: Hypertension Father Brother Sister Heart disease Father Diabetes mellitus type 2 Mother Brother Stroke Mother CAD (coronary artery disease) Father Procedure history: Appendectomy (SNOMED CT 441603890). Cholecystectomy (SNOMED CT 66537024). Tonsillectomy (SNOMED CT 144722815). Repair of right hip joint (SNOMED CT 747766334441138). Osteoporotic fracture of left hip (SNOMED CT 651225999146203). Social History Social & Psychosocial Habits Alcohol 4Risk Assessment: Denies Alcohol Use Substance Abuse 10/17/2023isk Assessment: Denies Substance Abuse Tobacco 10/17/2023 Tobacco Use: Never (less than 100 in l 10/17/2023isk Assessment: Denies Tobacco Use . Physical Examination Vital Signs (last 24 hrs) Last Charted Heart Rate Lpytmqywxd60 bpm (OCT 16 10:18) OYU803 mmHg (OCT 16 10:18) DBP64 mmHg (OCT 16 10:18) Mhkkul94 kg (OCT 16 10:18) BMI27.68 (OCT 16 [...] Appropriate mood & affect. Integumentary: Warm, Dry, [place]. Review / Management Results review: No qualifying [...] with her PCP. She has been getting Bronx from her PCP. 5/325 twice daily. She [...] reviewed. ENID score: 38%. Addendum by Taylor oMrton PA-C on October 17, 2023 11:44 EDT Right foot not ranged due to being in a brace/AFO [facility]03-18-2024 Evaluation + Plan noteExtracted from: Title:ED Note Author:Dillon Hurtado DO Date :10/01/23 Acute UTI (N39.0: Urinary tr act infection, site not specified) Orders: cephalexin, 500 mg = 1 cap(s), Oral, q12hr, X 7 day(s), # 14 cap(s), Refills(s) 0, Pharmacy: [facility]/pharmacy #[id number], 175, cm, 10/01/23 5:36:00 EDT, Height/Length Dosing, 55, kg, 10/01/23 5:36:00 EDT, Weight Dosing cephalexin, 500 mg = 1 cap(s), Cap, Oral, Once, Stop date 10/01/23 6:24:00 EDT, STAT, Start date 10/01/23 6:24:00 EDT, 10/01/23 6:24:00 EDT phenazopyridine, 100 mg = 1 tab(s), Oral, TID, X 3 day(s), # 9 tab(s), Refills(s) 0, Pharmacy: [facility]/pharmacy #[id number], 175, cm, 10/01/23 5:36:00 EDT, Height/Length Dosing, 55, kg, 10/01/23 5:36:00 EDT, Weight Dosing UA With Cult Reflex Urine Culture Future Appointments Appointment Date:10/17/2023 10:45:00 AM Scheduled Provider:Kaci Morton PA-C Location:[facility] [place] Appointment Type:Pain Management - New (FT) Diagnostic Tests Pending * Urine Culture 10/01/23 [facility]03-18-2024 Hospital Discharge instructions Patient Education [...] Treatment for this condition includes: Antibiotic medicine. Nutj-lnr-yztobdn medicines to treat discomfort. Drinking enough water [...] Follow these instructions at home: Medicines Take fpwe-sqb-bxqsehj and prescription medicines only as told by [...] provider. Document Revised: 02/11/2021 Document Reviewed: 02/11/2021 [employer] Patient Education 2022 [employer]. Follow Up Care 10/01/2023 05:17:03 With:Aisha RAGLAND Address: [employer] [place] [address] Business (1) When:Within 3 Day(s) [facility]02-13-2024 History of Present illness Narrative* ANA Whitlock - 08/28/2023 3:03 PM ESTAssociated Problem(s): Chronic pain disorder Patient will call when need refill * ANA Whitlock - 08/28/2023 3:02 PM ESTAssociated Problem(s): Controlled type 2 diabetes mellitus with diabetic polyneuropathy, without dino g-term current use of insulin ([facility]) Well controlled will continue meds * ANA [...] MOUTH EVERY DAY for 30 glucose blood (United Allergy ServicesTouch Ultra) test strip USE DIRECTED ONCE DAILY HYDROcodone-acetaminophen (Bronx) 5-325 MG tablet 1 tablet, Oral, 2 times daily Lancets (United Allergy ServicesTouch Delica Plus Wvbwfx02J) misc lisinopril 20 MG tablet TAKE 1/4 [...] 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 ([facility]) Well controlled will continue meds Relevant Orders POCT Glycated hemoglobin, total (Completed) Microalbumin / creatinine urine ratio (Completed) documented in this encounterPhelps [id number] Evaluation note* Encounter Date Diagnosis Assessment Notes [...] pain of right shoulder (ICD-10 - M25.511) [facility] Other 11-27-2023 Evaluation note* Encounter Date Diagnosis Assessment Notes Treatment Notes Treatment Clinical Notes May, Primary osteoarthritis of right shoulder (ICD-10 - M19.011) [facility] Other 09-06-2023 Evaluation note* Encounter Date Diagnosis [...] pain of right shoulder (ICD-10 - M25.511) [facility] Other 07-31-2023 Evaluation note* Encounter Date Diagnosis Assessment Notes Treatment Notes Treatment Clinical Notes Jan, Primary osteoarthritis of right shoulder (ICD-10 - M19.011) [facility] Other 03-01-2023 Evaluation note* Encounter Date Diagnosis [...] unfortunately her daughter, who would be her websphere architect, is having some medical issues and she [...] pain of right shoulder (ICD-10 - M25.511) [facility] Other 11-30-2022 Evaluation note* Encounter Date Diagnosis [...] unfortunately her daughter, who would be her websphere architect, is having some medical issues and she [...] a trial of 3 months or longer. [facility] Other 11-28-2022 Evaluation note* Encounter Date Diagnosis Assessment Notes Treatment Notes Treatment Clinical Notes May, Primary osteoarthritis of both knees (ICD-10 - M17.0) [facility] Other 03-23-2022 Evaluation note* Encounter Date Diagnosis [...] as documented in the electronic medical record. [facility] Other 09-22-2021 Evaluation note* Encounter Date Diagnosis [...] Other specified postprocedural states (ICD-10 - Z98.890) [facility] Other 10-01-2013 History general Narrative - Reported* Type Description Date Medical History right hip fracture S/P SCREW FIX ATION Medical History HTN Medical History HLD Surgical History RIGHT HIP FRACTURE S/P SCREW FI XATION ([facility]) 04/2013 Surgical History S/P HYSTERECTOMY Surgical History S/P CHOLECYSTECTOMY Surgical History femoral head fixation Hospitalization History ABOVE [facility] Other Chief complaint+Reason for visit Narrative* Chief Complaint op sp rt shoulder pa in lt knee pain req injection feeling not right after procedure Reason for Visit Osteoarthritis of le ft knee Osteoarthritis of right knee Osteoarthritis of right shoulder [facility] Work Phone: Chief complaint+Reason for visit Narrative* Chief Complaint feeling not right af ter procedure LILIBETH PT OP SP RT KNEE PAIN M17.12 - Unilateral primary osteoarthritis, left k Reason for Visit Osteoarthritis of le ft knee Osteoarthritis of right knee Osteoarthritis of right shoulder [facility] Work Phone: Evaluation noteNoLaTherm Other Evaluation noteNo assessment information available [facility] Work Phone: Evaluation noteNo InformationNort [employer] Other Evaluation note* Diagnosis Chronic pain disorder- Primary Chronic pain syndrome Controlled type 2 diabetes mellitus with diabetic polyneuropathy, 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 ([facility]) documented in this encounter [facility] HealthcareEvaluation note* Diagnosis Onset Date Resolution Status Osteoarthritis of left knee acute Osteoarthritis of right knee acute Osteoarthritis of right shoulder chronic [facility] Work Phone: Evaluation note* Diagnosis GERD without esophagitis Esophageal reflux documented in this encounter [facility] HealthcareEvaluation note* Diagnosis Chronic pain disorder- [...] Chronic pain syndrome documented in this encounter [facility] HealthcareEvaluation note* Diagnosis Chronic pain disorder- Primary [...] Reactive depression (CMS/HCC) documented in this encounter [facility] HealthcareEvaluation note* Diagnosis Chronic pain disorder- [...] Dermatophytosis of nail documented in this encounter [facility] HealthcareEvaluation note* Diagnosis Chronic pain disorder- [...] Chronic pain syndrome documented in this encounter [facility] HealthcareEvaluation note* Diagnosis Chronic pain disorder- Primary Chronic pain syndrome Controlled type 2 diabetes mellitus with diabetic polyneuropathy, 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 ([facility]) Encounter for immunization Essential hypertension ([facility]) Unspecified essential hypertension Controlled type 2 diabetes mellitus with diabetic polyneuropathy, 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 ([facility])- Primary Chronic pain disorder Chronic pain syndrome Essential hypertension ([facility]) Unspecified essential hypertension GERD without esophagitis Esophageal reflux Chronic pain disorder- Primary Chronic pain syndrome Controlled type 2 diabetes mellitus with diabetic polyneuropathy, 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 ([facility]) Chronic pain disorder- Primary Chronic pain syndrome Screen for colon cancer Special screening for malignant neoplasms, colon Controlled type 2 diabetes mellitus with diabetic polyneuropathy, 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 ([facility]) History of UTI Dysuria Medicare annual wellness visit, subsequent Chronic pain of right knee- Primary Controlled type 2 diabetes mellitus with diabetic polyneuropathy, 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 ([facility]) Chronic pain disorder Chronic pain syndrome GERD without esophagitis Esophageal reflux documented in this encounter [facility] HealthcareEvaluation note* Diagnosis Diabetic polyneuropathy associated with type 2 diabetes mellitus ([facility])- Primary Onychomycosis Dermatophytosis of nail documented in [facility] encounter [facility]* Diagnosis Reactive depression ([facility])- Primary Anxiety Anxiety state, unspecified documented in this encounter [facility]* Diagnosis Chronic pain disorder- Primary Chronic pain syndrome Controlled type 2 diabetes mellitus with diabetic polyneuropathy, 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 ([facility]) Encounter for immunization Essential hypertension ([facility]) Unspecified essential hypertension Controlled type 2 diabetes mellitus with diabetic polyneuropathy, 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 ([facility])- Primary Chronic pain disorder Chronic pain syndrome Essential hypertension ([facility]) Unspecified essential hypertension GERD without esophagitis Esophageal reflux Chronic pain disorder- Primary Chronic pain syndrome Controlled type 2 diabetes mellitus with diabetic polyneuropathy, 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 ([facility]) Chronic pain disorder- Primary Chronic pain syndrome Screen for colon cancer Special screening for malignant neoplasms, colon Controlled type 2 diabetes mellitus with diabetic polyneuropathy, 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 ([facility]) History of UTI Dysuria Medicare annual wellness visit, subsequent Chronic pain of right knee- Primary Controlled type 2 diabetes mellitus with diabetic polyneuropathy, 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 ([facility]) Chronic pain disorder Chronic pain syndrome Essential hypertension (CMS/HCC) Unspecified essential hypertension Controlled type 2 diabetes mellitus with diabetic polyneuropathy, 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 (CMS/HCC) documented in this encounter [facility] HealthcareEvaluation note* Diagnosis Chronic pain disorder- Primary [...] Chronic pain syndrome documented in this encounter [facility] HealthcareEvaluation note* Diagnosis Chronic pain disorder- Primary [...] (CMS/HCC) documented in this encounter [facility] HealthcareEvaluation note* Diagnosis Chronic pain disorder- Primary [...] nail documented in this encounter [facility] HealthcareEvaluation note* Diagnosis Chronic pain disorder- Primary [...] Unspecified pre-operative examination documented in this encounter [facility]Evaluation [facility]* Diagnosis Chronic pain disorder- [...] Chronic pain syndrome documented in this encounter [facility] HealthcareEvaluation note* Diagnosis Chronic pain disorder- [...] Chronic pain syndrome documented in this encounter [facility] HealthcareEvaluation note* Diagnosis Chronic pain disorder- Primary [...] Other follow-up examination documented in this encounter [facility] HealthcareEvaluation note* Diagnosis Chronic pain disorder- Primary [...] (CMS/HCC) documented in this encounter [facility] HealthcareEvaluation note* Diagnosis Chronic pain disorder- Primary [...] 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 ([facility]) Chronic pain disorder Chronic pain syndrome Chronic pain of right knee- Primary Controlled type 2 diabetes mellitus with diabetic polyneuropathy, 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 (CMS/HCC) Acute non-recurrent frontal sinusitis Anxiety Anxiety state, unspecified Preop examination Unspecified pre-operative examination Diabetic polyneuropathy associated with type 2 diabetes mellitus ([facility])- Primary Onychomycosis Dermatophytosis of nail documented in this encounter [facility] HealthcareEvaluation note* Diagnosis Chronic pain disorder- Primary Chronic pain syndrome Controlled type 2 diabetes mellitus with diabetic polyneuropathy, 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 ([facility]) Encounter for immunization Essential hypertension Unspecified essential hypertension Controlled type 2 diabetes mellitus with diabetic polyneuropathy, 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 ([facility])- Primary Chronic pain disorder Chronic pain syndrome Essential hypertension Unspecified essential hypertension GERD without esophagitis Esophageal reflux Chronic pain disorder- Primary Chronic pain syndrome Controlled type 2 diabetes mellitus with diabetic polyneuropathy, 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 ([facility]) Chronic pain disorder- Primary Chronic pain syndrome Screen for colon cancer Special screening for malignant neoplasms, colon Controlled type 2 diabetes mellitus with diabetic polyneuropathy, 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 ([facility]) History of UTI Dysuria Medicare annual wellness visit, subsequent Chronic pain of right knee- Primary Controlled type 2 diabetes mellitus with diabetic polyneuropathy, 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 (HCC) Chronic pain disorder Chronic pain syndrome Chronic pain of right knee- Primary Controlled type 2 diabetes mellitus with diabetic polyneuropathy, 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 ([facility]) Acute non-recurrent frontal sinusitis Anxiety Anxiety state, unspecified Preop examination Unspecified pre-operative examination Bronchitis- Primary Bronchitis, not specified as acute or chronic Controlled type 2 diabetes mellitus with diabetic polyneuropathy, 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 ([facility]) GERD without esophagitis Esophageal reflux Anemia due to folic acid deficiency, unspecified deficiency type Breast screening Breast screening, unspecified documented in this encounter [facility] HealthcareEvaluation note* Diagnosis Chronic pain disorder- Primary Chronic pain syndrome Controlled type 2 diabetes mellitus with diabetic polyneuropathy, 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 ([facility]) Encounter for immunization Essential hypertension Unspecified essential [...] Unspecified essential hypertension documented in this encounter [facility] HealthcareEvaluation note* Diagnosis Chronic pain disorder- [...] essential hypertension documented in this encounter [facility] HealthcareHistory general Narrative - ReportedNohca midwest division [employer] Other Hospital course Narrative No data available for this section [facility] No data available for this section [facility] Additional Instructions Continue current meds Follow-up with your private physician Return if symptoms are [facility] Work Phone: Progress note No data available for this section [facility] CenterReason for referral (narrative)No reason for referral information availableW[facility] Work Phone: Summary Purpose Family History [...] Date Acute lower respiratory infection Novemb er 23, 2024 1:46pm Osteoarthritis of left knee July 23, [...] 2024 3:09pm Osteoarthritis of right shoulder uar 2024 3:09pm Chief Complaint Admit Date OP [...] 2024 3:09pm Osteoarthritis of right shoulder uar 2024 3:09pm S/P total knee arthroplasty August [...] 03, 2024 3:09pm Osteoarthritis of right shoulder 2024 3:09pm S/P total knee arthroplasty August 5:51am Primary osteoarthritis of right knee Sep 12:54pm Status post total right knee replacement [...] 2024 3:09pm Osteoarthritis of right shoulder uar 2024 3:09pm S/P total knee arthroplasty August 5:51am Primary osteoarthritis of right knee Mar 2024 12:54pm Status post total right knee replacement September 22, 2024 12:54pm Primary osteoarthritis of right knee Apr ca 2024 4:22pm Status post total right knee [...] 12:54pm Primary osteoarthritis of right knee Apr ca 2024 4:22pm Status post total right knee [...] Date Primary osteoarthritis of right knee Apr ca 2024 4:22pm Status post total right knee replacement October 20, 2024 4:22pm Primary osteoarthritis of right knee December 01, 2024 4:05pm Status post total right knee replacement December 01, 2024 4:05pm Impacted cerumen of left ear December 21, [...] 2025 12:45pm Primary osteoarthritis of left knee Mar 12:45pm Primary osteoarthritis of right knee Mar 12:45pm Primary osteoarthritis of right shoulder March [...] 12:45pm s/p RTK 09/09March 18, 2025 1:45pm Chief Complaint Admit Date OP SP RTKA PAIN January 26, 2025 1:04 pm Unknown March 04, 2025 8: 15pm 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, right March 18, 2025 9:22am 6-8 WEEKS March 18, 2025 12:45pm s/p RTK 09/09April 13, 2025 4:45pm T14.8XXA - Other injury of unspecified b chi region April 15, 2025 9:53am 4 WEEKS April 15, 2025 2: 47pm Reason for Visit Admit Date Primary osteoarthritis of left knee January 26, 2025 1:04pm Primary osteoarthritis of right knee Quique 2024 1:04pm Primary osteoarthritis of right shoulder January 26, 2025 1:04pm Status post total right knee replacement January 26, 2025 1:04pm Avulsion fracture March 18, 2025 12:45pm Primary osteoarthritis of left knee Mar 12:45pm Primary osteoarthritis of right knee Mar 12:45pm Primary osteoarthritis of right shoulder March 18, 2025 12:45pm Status post total right knee replacement March 18, 2025 12:45pm Avulsion fracture April 15, 2025 2: 47pm Primary osteoarthritis of left knee Octo 2024 2:47pm Primary osteoarthritis of right knee Apr 2:47pm Primary osteoarthritis of right shoulder April 15, 2025 2:47pm Status post total right knee replacement April 15, 2025 2:47pm Chief Complaint Admit Date OP SP RTKA PAIN January 26, 2025 1:04 pm Unknown March 04, 2025 8: 15pm 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, right March 18, 2025 9:22am 6-8 WEEKS March 18, 2025 12:45pm T14.8XXA - Other injury of unspecified b chi region April 15, 2025 9:53am 4 WEEKS April 15, 2025 2: 47pm s/p RTK 09/09April 15, 2025 4: 30pm Additional Source Comments INFORMATION SOURCE (unrecogn ized section and content) DATE CREATED AUTHOR 01/03/2018 [facility] DATE CREATED AUTHOR AUTHOR'S ORGANIZ ATION 01/09/2018 [facility] DATE CREATED AUTHOR AUTHOR'S ORGANIZ ATION 10/03/2021 [facility] DATE CREATED AUTHOR AUTHOR'S ORGANIZ ATION 02/25/2022 [facility] DATE CREATED AUTHOR AUTHOR'S ORGANIZ ATION 10/25/2023 [facility] DATE CREATED AUTHOR AUTHOR'S ORGANIZ ATION 01/15/2025 [facility] EPIC DATE CREATED AUTHOR AUTHOR'S ORGANIZ ATION 04/19/2025 [facility] REASON FOR VISIT (unrecogniz [...] 08/25/2024 Reason Comments Medicare Annual Wellness Visit [facility] Follow-up Follow up from [facility] completed TCM Reason Comments Toenail Care [...] Active Bhaskar Hdz APRN Emergency Provider Active Compress Machine Operator Relationship Specialty Start Date End Date Zuri Hannah MD [address] [place] [address] PCP - Devoted 07/16/20 Zuri Hannah MD [address] [place] [address] PCP - General Family Medicine 12/25/22 Team [...] Attending Provider Active Start: April 23, 2024 Compress Machine Operator Relationship Specialty Start Date End Date Zuri Hannah MD [address] [place] [address] PCP - Devoted 07/16/20 Zuri Hannah MD [address] [place] [address] PCP - General Family Medicine 09/17/23 Compress Machine Operator Relationship Specialty Start Date End Date Zuri Hannah MD [address] [place] [address] PCP - Devoted 07/16/20 Zuri Hannah MD [address] [place] [address] PCP - General Family Medicine 09/17/23 Compress Machine Operator Relationship Specialty Start Date End Date Zuri Hannah MD [address] [place] [address] PCP - Devoted 07/16/20 Zuri Hannah MD [address] [place] [address] PCP - General Family Medicine 09/17/23 Compress Machine Operator Relationship Specialty Start Date End Date Zuri Hannah MD [address] [place] [address] PCP - Devoted 07/16/20 Zuri Hannah MD [address] [place] [address] PCP - General Family Medicine 09/17/23 Compress Machine Operator Relationship Specialty Start Date End Date Zuri Hannah MD [address] [place] [address] PCP - Devoted 07/16/20 Zuri Hannah MD [address] [place] [address] PCP - General [facility] Medicine 09/17/23 Compress Machine Operator Relationship Specialty Start Date End Date Zuri Hannah MD [address] [place] [address] PCP - Devoted 07/16/20 Zuri Hannah MD [address] [place] [address] PCP - General Family Medicine 09/17/23 Compress Machine Operator Relationship Specialty Start Date End Date Zuri Hannah MD [address] [place] [address] PCP - Devoted 07/16/20 Zuri Hannah MD [address] [place] [address] PCP - General [facility] 09/17/23 Compress Machine Operator Relationship Specialty Start Date End Date Zuri Hannah MD [address] [place] [address] PCP - Devoted 07/16/20 Zuri Hannah MD [address] [place] [address] PCP - General [facility] Medicine 09/17/23 Compress Machine Operator Relationship Specialty Start Date End Date Zuri Hannah MD [address] [place] [address] PCP - Devoted 07/16/20 Zuri Hannah MD [address] [place] [address] PCP - General Family Medicine 09/17/23 Compress Machine Operator Relationship Specialty Start Date End Date Zuri Hannah MD [address] [place] [address] PCP - Devoted 07/16/20 Zuri Hannah MD [address] [place] [address] PCP - General Family Medicine 09/17/23 Team [...] July 23, 2024 End: July 23, 2024 Compress Machine Operator Relationship Specialty Start Date End Date Zuri Hannah MD [address] [place] [address] PCP - Devoted 07/16/20 Zuri Hannah MD [address] [place] [address] PCP - General Family Medicine 09/17/23 Compress Machine Operator Relationship Specialty Start Date End Date Zuri Hannah MD [address] [place] [address] PCP - Devoted 07/16/20 Zuri Hannah MD [address] [place] [address] PCP - General Family Medicine 09/17/23 Team Status: Inactive Member Role Status Dates Aisha Ragland PA-C Primary Care Provider Active Start: August 22, 2024 End: August 22, 2024 João Soto DO Attending Provider Active S tart: August 22, 2024 End: August 22, 2024 Compress Machine Operator Relationship Specialty Start Date End Date Zuri Hannah MD [address] [place] [address] PCP - Devoted 07/16/20 Zuri Hannah MD [address] [place] [address] PCP - General Family Medicine 09/17/23 Team Status: Inactive Member Role Status Dates Aisha Ragland PA-C Primary Care Provider Active Start: August 26, 2024 End: August 26, 2024 João Soto DO Attending Provider Active S tart: August 26, 2024 End: August 26, 2024 Compress Machine Operator Relationship Specialty Start Date End Date Zuri Hannah MD [address] [place] [address] PCP - Devoted 07/16/20 Zuri Hannah MD [address] [place] [address] PCP - General Family Medicine 09/17/23 Team [...] September 22, 2024 End: September 22, 2024 Compress Machine Operator Relationship Specialty Start Date End Date Zuri Hannah MD [address] [place] [address] PCP - Devoted 07/16/20 Zuri Hannah MD [address] [place] [address] PCP - General Family Medicine 09/17/23 Compress Machine Operator Relationship Specialty Start Date End Date Zuri Hannah MD [address] [place] [address] PCP - Devoted 07/16/20 Zuri Hannah MD [address] [place] [address] PCP - General Family Medicine 09/17/23 Compress Machine Operator Relationship Specialty Start Date End Date Zuri Hannah MD [address] [place] [address] PCP - Devoted 07/16/20 Zuri Hannah MD [address] [place] [address] PCP - General Family Medicine 09/17/23 Compress Machine Operator Relationship Specialty Start Date End Date Zuri Hannah MD [address] [place] [address] PCP - Devoted 07/16/20 Zuri Hannah MD [address] [place] [address] PCP - General Family Medicine 09/17/23 Compress Machine Operator Relationship Specialty Start Date End Date Zuri Hannah MD [address] [place] [address] PCP - Devoted 07/16/20 Zuri Hannah MD [address] [place] [address] PCP - General Family Medicine 09/17/23 Team [...] End: December 21, 2024 BETSY Cohen RN CREATIVE SERVICES SPECIALIST-C Attending Provider Active Start: December 21 End: [...] Provider Active S tart: December 22, 2024 Compress Machine Operator Relationship Specialty Start Date End Date Zuri Hannah MD [address] [place] [address] PCP - Devoted 07/16/20 Zuri Hannah MD [address] [place] [address] PCP - General Family Medicine 09/17/23 Compress Machine Operator Relationship Specialty Start Date End Date Zuri Hannah MD [address] [place] [address] PCP - Devoted 07/16/20 Zuri Hannah MD [address] [place] [address] PCP - General Family Medicine 09/17/23 Team [...] January 26, 2025 End: January 26, 2025 Compress Machine Operator Relationship Specialty Start Date End Date Zuri Hannah MD [address] [place] [address] PCP - Devoted 07/16/20 Zuri Hannah MD [address] [place] [address] PCP - General Family Medicine 09/17/23 Compress Machine Operator Relationship Specialty Start Date End Date Zuri Hannah MD [address] [place] [address] PCP - Devoted 07/16/20 Zuri Hannah MD [address] [place] [address] PCP - General Family Medicine 09/17/23 Team Status: Active Member Role Status Dates Aisha Ragland PA-C Primary Care Provider Active Start: March 04, 2025 João Soto DO Attending Provider Active S tart: March 04, 2025 Team Status: Inactive Member Role Status Dates Alvin Benito DO Attending Provider Active S tart: March 04, 2025 End: March 04, 2025 Team Status: Active Member Role Status Dates Aisha Ragland PA-C Primary Care Provider Active Start: March 13, 2025 João Soto DO Attending Provider Active S tart: March 13, 2025 Team Status: Active Member Role Status Dates João Soto DO Attending Provider Active S tart: March 18, 2025 Team Status: Inactive Member Role Status Dates João Soto DO Attending Provider Active S tart: March 18, 2025 End: March 18, 2025 Aisha Ragland PA-C Primary Care Provider Active Start: March 18, 2025 End: March 18, 2025 Team Status: Inactive Member Role Status Dates João Soto DO Attending Provider Active S tart: March 18, 2025 End: March 18, 2025 Team Status: Active Member Role Status Dates Aisha Ragland PA-C Primary Care Provider Active Start: March 18, 2025 João Soto DO Attending Provider Active S tart: March 18, 2025 Compress Machine Operator Relationship Specialty Start Date End Date Zuri Hannah MD [address] [place] [address] PCP - Devoted 07/16/20 Zuri Hannah MD [address] [place] [address] PCP - General Family Medicine 09/17/23 Team Status: Active Member Role Status Dates Aisha Ragland PA-C Primary Care Provider Active Start: April 13, 2025 João Soto DO Attending Provider Active S tart: April 13, 2025 Team Status: Active Member Role Status Dates Aisha Ragland PA-C Primary Care Provider Active Start: April 15, 2025 João Soto DO Attending Provider Active S tart: April 15, 2025 Team Status: Inactive Member Role Status Dates Aisha Ragland PA-C Primary Care Provider Active Start: April 15, 2025 End: April 15, 2025 João Soto DO Attending Provider Active S tart: April 15, 2025 End: April 15, 2025 Goals (unrecognized section and content) Goals may [...] BE BASED ON THE PRIMARY CLINICAL RECORDS. [facility] provides no warranty or guarantee of the accuracy or completeness of information in this document.
== END 2025-04-21 10:50 | disposition home or self-care (01) ==
LOC: MAMMO 10:49
PROVIDERS: PCP Physician Assistant; Visit Provider Physician Assistant
DX: R92.8 Other abnormal and inconclusive findings on diagnostic imaging of breast (principal); Z80.3 Family history of malignant neoplasm of breast
CPT/HCPCS: 77065; G0279

== ENCOUNTER 2025-05-16 11:11 | Outpatient (OUT) | payer OTHER, MEDICARE, SELFPAY ==
--- OUTSIDE RECORDS SUMMARY | 2019-01-23 11:00 | XMS_ITS | Continuity of Care Document ---
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 Name Role Phone Bhaskar Weathers DDS Unavailable Unavail able Allergies, Adverse Reactions, Alerts Substance Reaction Status Criticality tioconazole Active No Information tramadol Active No Information Medications Medication Instructions Dosage Effective Dates (start - stop) Status Comments [place] 5 mg-325 mg tablet take 1 tablet by oral route every 6 hours as needed for pain for k08.8 - Active famotidine 20 mg tablet take 1 tablet by oral route 2 times every day 20 MG - Active atenolol 50 mg tablet take 1 tablet by oral route every day 50 MG - Active lisinopril 20 mg tablet take 1 tablet by oral route every day 20 MG - Active metformin 500 mg tablet take 1 tablet by oral route 2 times every day with morning and evening meals 500 MG - Active Zocor 40 mg tablet take 1 tablet by oral route every day in the evening 40 MG - Active Vitamin D2 50,000 unit capsule take 1 capsule by oral route every week - Active Vitamin C 500 mg tablet - Active Calcium 500 + D 500 mg (1,250 mg)-200 unit tablet - Active Tenormin 50 mg tablet take 1 tablet by oral route every day 50 MG - No Longer Active Procedures Procedure Date Extract; Erupted Th/exposted Rt Extract; Erupted Th/exposted Rt Extract; Erupted Th/exposted Rt Extract; Erupted Th/exposted Rt Extract; Erupted Th/exposted Rt Quique-11-2 019 Extract; Erupted Th/exposted Rt 019 Extract; Erupted Th/exposted Rt Extract; Erupted Th/exposted Rt 019 Extract; Erupted Th/exposted Rt 019 Nutrit Couns For Control Of [place] Dis Jan Oral Hygiene Instruction Comp Oral Eval New/estab Patient 2018 Oral Hygiene Instruction Intraoral-complete Series (bw) Advance Directives Directive Yes / No Effective Date File Name No Information Encounters Encounter Description Practice Location Reason(s) For Visit Diagnoses Date Provider Providers Copied on Encounter [facility], [address] [place] [address], [id number], tel:[phone] Dental Clinic extraction (chief complaint) Encounter for screening for dental disorders Jasiel Muro. [address] [place] [address], [id number], . tel:[phone] 9546 [facility], [address] [place] [address], [id number], tel:[phone] Dental Clinic Encounter for screening for dental disorders Roman Ramirez. [address] [place] [address], [id number], . tel:[phone] Family History Family Member Type Diagnosis Age At Onset Mother Problem (finding) dementia Father Problem (finding) Heart Trouble Payers Payer name Insurance type Covered green party ID Alma long(s) Bryan Roberto 19 [id number] Social History Type Description Quantity Date Captured Comments Alcohol Use Details Unknown Caffeine Use Details Unknown Tobacco Use Status Current non-smoker 21 Smoking Status Never smoker Non-Smoking Tobacco Use Details : No Details Available : No Details Available [id number] SexFemaleSexual OrientationStraight or [id number] Gender [id number] Vital Signs Date / Time: Height Weight BMI Pulse Rate Blood Pressure Temperature Respiratory Rate Body Surface Area Head Circumference Head Circ. Percentile Wt./Emile. Percentile BMI percentile Pulse Ox Inhaled Ox 3:38 PM 73 /min 156/85 mm[Hg] Chief Complaint And Reason For Visit From encounter dated '01/23/2019 15:00'. extraction (chief complaint). Description: extraction continue with care Reason For Referral Reason For Referral No Information History Of Present Illness Encounter Date Complaint History Of Prese nt Illness extraction extraction yuri nue with care Functional Status Date Functional Assessmen t No Information Instructions Date Instruction Additional Infor mation No Information Assessments Type Assessment Date assessment Encounter for screening for dent al disorders Patient Care Teams Name Effective Dates (start - stop) Status Members No Information
--- OUTSIDE RECORDS SUMMARY | 2025-05-08 10:42 | XMS_ITS | Continuity of Care Document ---
Author Organization [facility] Address [address] [place] [address] Phone Care Team Providers Care Director Auto Name Role Phone Alvin Benito DO Attending Provider João Soto DO Attending Provider Aisha Rhodes PA-C Primary Care Provider Care Teams Patient Care Team Team Status: Active Member Role/Relationship Status Dates Aisha Rhodes PA-C Primary Care Provider Active Visit Care Team Team Status: Inactive Member Role/Relationship Status Dates Alvin Benito DO Attending Provider Active S tart: March 04, 2025 End: March 04, 2025 Visit Care Team Team Status: Inactive Member Role/Relationship Status Dates João Soto DO Attending Provider Active S tart: March 18, 2025 End: March 18, 2025 Visit Care Team Team Status: Inactive Member Role/Relationship Status Dates João Soto DO Attending Provider Active S tart: March 18, 2025 End: March 18, 2025S[facility] Whitlockimary Care ProviderActive Start: March 18, 2025 End: March 18, 2025 Visit Care Team Team Status: Inactive Member Role/Relationship Status Dates Aisha Rhodes PA-C Primary Care Provider Active Start: April 15, 2025 End: April 15, 2025João Soto DOAttending ProviderActiveStart: April 15, 2025 End: April 15, 2025 Visit Care Team Team Status: Inactive Member Role/Relationship Status Dates Aisha Rhodes PA-C Primary Care Provider Active Start: April 15, 2025 End: April 15, 2025JuEron Willams ProviderActiveStart: April 15, 2025 End: April 15, 2025 Visit Care Team Team Status: Inactive Member Role/Relationship Status Dates Aisha Rhodes PA-C Primary Care Provider Active Start: May 06, 2025 End: May 06, 2025JuEron Willams ProviderActiveStart: May 06, 2025 End: May 06, 2025 Chief Complaint and Reason for Visit Chief Complaint Admit Date Unknown March 04, 2025 8: 15pm 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, right March 18, 2025 9:22am 6-8 WEEKS March 18, 2025 12:45pm T14.8XXA - Other injury of unspecified b chi region April 15, 2025 9:53am 4 WEEKS April 15, 2025 2: 47pm s/p RTK 09/09May 06, 2025 4 :30pm Reason for Visit Admit Date Avulsion fracture March 18, 2025 12:45pm Primary osteoarthritis of left knee Mar 12:45pm Primary osteoarthritis of right knee Mar 12:45pm Primary osteoarthritis of right shoulder March 18, 2025 12:45pm Status post total right knee replacement March 18, 2025 12:45pm Avulsion fracture April 15, 2025 2: 47pm Primary osteoarthritis of left knee 2024 2:47pm Primary osteoarthritis of right knee Apr 2:47pm Primary osteoarthritis of right shoulder April 15, 2025 2:47pm Status post total right knee replacement April 15, 2025 2:47pm Allergies, Adverse Reactions, Alerts Allergen Type Severity Reaction Last Updated Verified Status bee venom protein (honey bee) Allergy Unknown anaphylaxis March 18, 2025 1:01pm Yes Active tioconazole Allergy Unknown Itching, rash March 18, 2025 1:01pm Yes Active tramadol Allergy Unknown Chest Pain/Anxiety 2024 1:01pm Yes Active Social History Smoking Status Status Start Date End Date Date of Observa tion Never smoked tobacco (finding) September 09, 2024 6:32am Observation Status Observation Response Date of Response Legal Sex Female (finding) Sex Assigned At BirthFemaleSeptember 1944 Family History Relationship Condition Age at Onset Recorded Date/T chris brother Unknown fatherDeceasedUnknownCoronary artery diseaseUnknownArthritisUnknownMalignant neoplasm of prostateUnknownmotherDeceasedUnknownAlzheimer's diseaseUnknown Diabetes mellitusUnknownHypertensionUnknownfamily memberMalignant neoplasm of breastUnknown Problems Active Problems Problem Diagnosis/Recorded Date Onset Date Status C omments UTI (urinary tract infection) December 21, 2024 2:10pm Unknow n Active Arthritis of glenohumeral jointMarch 2023 3:55pmUnknownActivePrimary osteoarthritis of left kneeMarch 2023 3:55pmUnknownActivePrimary osteoarthritis of right kneeMarch 2023 3:55pmUnknownActivePrimary osteoarthritis of right shoulderMarch 2023 3:55pmUnknownActivePrimary osteoarthritis of both kneesMarch 2023 3:55pmUnknownActiveDiabetesOctober 2018 3:48pmUnknownActiveOsteoarthritis of right shoulderOctober 2018 12:06pmUnknownActiveHyperlipidemiaOctober 2018 3:47pmUnknownActivePre-op examJanuary 2024 4:46pmUnknownActiveAvulsion fractureSeptember 2024 1:25pmUnknownActiveOsteoarthritis of left kneeMarch 2023 8:14amUnknown ActiveOsteoarthritis of right kneeMarch 2023 8:14amUnknownActiveImpacted cerumen of left earJune 2024 2:10pmUnknownActiveGERD (gastroesophageal reflux disease)April 29, 2019 3:48pmUnknownActiveHypertensionOctober 2018 3:48pmUnknownActiveAcute lower respiratory infectionNovember 2023 3:51pmUnknownActiveArthritis of right kneeMarch 2023 3:55pmUnknownActive Inactive/Resolved Problems Problem Diagnosis/Recorded Date Onset Date Status C omments Low serum prealbumin April 30, 2019 10:45am Unknown Resolved Problem List clean-up per request of Phys. EHR Cmte Status post fall April 29, 2019 12:34pm Unknown Res olved Problem List clean-up per request of Phys. EHR Cmte Impaired mobility and ADLs April 29, 2019 12:36pm Unknown Resolved Probl em List clean-up per request of Phys. EHR Cmte Age-related osteoporosis with current pathological fracture, left femur, initial encounter for fracture April 25, 2019 2:38pm Unknown Resolved Proble m List clean-up per request of Phys. EHR Cmte Acute upper respiratory infection July 15, 2023 6:09pm Unknown Resolved Elevated LFTsOctober 2018 12:36pmUnknownResolvedProblem List clean-up per request of Phys. EHR CmteLeft leg painNovember 2019 9:06amUnknownResolved Problem List clean-up per request of Phys. EHR CmteAtypical chest painAugust 2023 5:45pmUnknownResolvedPostoperative painOctober 2018 12:35pm UnknownResolvedProblem List clean-up per request of Phys. EHR CmteSkin tear July 23, 2020 1:08amUnknownResolvedProblem List clean-up per request of Phys. EHR CmteSubcapital fracture of neck of left femurOctober 2018 9:13pm UnknownResolvedProblem List clean-up per request of Phys. EHR CmteDVT of lower limb, acuteSeptember 2019 9:49pmUnknownResolvedProblem List clean-up per request of Phys. EHR CmteDVT, lower extremityOctober 2018 10:31amUnknown ResolvedProblem List clean-up per request of Phys. EHR CmteDVT prophylaxis April 29, 2019 12:36pmUnknownResolvedProblem List clean-up per request of Phys. EHR CmteWeaknessAugust 2023 5:45pmUnknownResolvedMusculoskeletal painJanuary 2020 1:08amUnknownResolvedProblem List clean-up per request of Phys. EHR CmtePostoperative anemiaOctober 2018 12:36pmUnknownResolved Problem List clean-up per request of Phys. EHR CmteRight shoulder painOctober 2018 12:56pmUnknownResolvedProblem List clean-up per request of Phys. EHR CmteLeft hip painOctober 2018 2:37pmUnknownResolvedProblem List clean-up per request of Phys. EHR CmteNausea & vomitingOctober 2018 12:36pmUnknown ResolvedProblem List clean-up per request of Phys. EHR CmteConstipationOctober 2018 12:36pmUnknownResolvedProblem List clean-up per request of Phys. EHR CmteClosed fracture of neck of left femurOctober 2018 12:35pmUnknown ResolvedProblem List clean-up per request of Phys. EHR Cmte Medications Medication Status Dose Units Route Directions Qty Days Refills S tart Date Stop Date End Date Reason(s) Instructions Adherence Celecoxib 100 mg capsule Discontinued 100 MG PO Twice daily 60 30 3 October 08, 2023 1:00pm October 10, 2023 10:17amCelecoxib 100 mg capsuleDiscontinued0.ROUTE.SECIRDX185 October 10, 2023 10:17amJuly 2023 7:00amTAKE 1 CAPSULE BY MOUTH TWICE A DAY WITH FOODLidocaine 5 % adhesive patch,sdxmpgumeDsvxszygiolx2XQLEENQLOYXW Bxvvs959Oryrt 2023 8:04amApril 2023 6:46amleave on most painful area for up to 12 hrsLidocaine 5 % adhesive patch,ablkaxsupOeytqtkrariq5KHNKBUKLOLKP Lnrlz879Ahsts 2023 6:46amMay 2023 11:22amleave on most painful area for up to 12 hrsLidocaine 5 % adhesive patch,qbaqxkdhfUrevujskdylr4LEBRGLXRBBJS Bhifo631Maz 2023 11:20amJune 2023 4:47pmleave on most painful area for up to 12 hrsLidocaine 5 % adhesive patch,kfcccjfinUrqkpqxusunm5STAYEWFJZOTA Nshmd447Vfco 2023 4:47pmAugust 2023 11:52amleave on most painful area for up to 12 hrsCelecoxib 100 mg capsuleDiscontinued0.ROUTE.KIFDJAS646Qwdx 2023 7:00amAugust 2023 11:52amTAKE 1 CAPSULE BY MOUTH TWICE A DAY WITH FOOD Celecoxib 100 mg capsuleDiscontinued0.ROUTE.JZOTVRR043Xgikjg 2023 11:51am September 12, 2024 9:56amTAKE 1 CAPSULE BY MOUTH TWICE A DAY WITH FOODLidocaine 5 % adhesive patch,xdaqzovcfBplwysjqnymd9HNOYLBQMXIZAGfugo985Wsxcka 2023 11:51amOctober 2023 10:07amleave on most painful area for up to 12 hrs Lidocaine 5 % adhesive patch,wjxlpsqbnRekccmfkrefy0CFWERKKLKOXBYdrnw373Iyfcjlg 2023 10:07amNovember 2023 4:23pmleave on most painful area for up to 12 hrsLidocaine 5 % adhesive patch,wvbvahqtbQqhexgmnmwme1NLVAHDMEBTQDZfzdx428 November 2023 4:23pmJanuary 2024 4:26pmleave on most painful area for up to 12 hrsLidocaine 5 % adhesive patch,aizpqnolrTfexgknqjwxx9SYCVJFXGQZIO Rwhyr469Cfnngeb 2024 4:26pmApril 2024 12:56pmleave on most painful area for up to 12 hrsOxycodone 5 mg omiwdkQqrrkvplfhyw0OFLVJ5M as needed for Davf2185Tdzzxplc 2024February 2024 1:29pmStatus post total knee replacement Presence of unspecified artificial knee jointCelecoxib 100 mg capsule Discontinued0.ROUTE.BADFDBU221Qlnzwamy 2024 9:56amJuly 2024 4:01pm TAKE 1 CAPSULE BY MOUTH TWICE A DAY WITH FOODOxycodone 5 mg tabletDiscontinued5 PHYYR2T as needed for Zgww8541Ulpsf 2024May 2024 4:31pmStatus post total knee replacement Presence of unspecified artificial knee jointdispense 42 (forty-two) tablets diagnosis Z96.659Lidocaine 5 % adhesive patch,ozqqeyndyChkjdncwuozk0PDNYXVBZPGDA Kcacj087Davrc 2024 12:56pmJune 2024 9:09amleave on most painful area for up to 12 hrsLidocaine 5 % adhesive patch,medicatedDiscontinued0.ROUTE .VYONDUV874Qhmi 2024 9:09amOctober 2024 4:39pmAPPLY 1 PATCH TOPICALLY DAILY LEAVE ON MOST PAINFUL AREA FOR UP TO 12 HOURSCelecoxib 100 mg capsule Active0.ROUTE.RSYORDV386Cnvg 2024 4:01pmTAKE 1 CAPSULE BY MOUTH TWICE A DAY WITH FOODUnknownLidocaine 5 % adhesive patch,medicatedActive0.ROUTE.COMPLEX 301October 2024 4:39pmAPPLY 1 PATCH TOPICALLY DAILY LEAVE ON MOST PAINFUL AREA FOR UP TO 12 HOURSUnknownAtenolol 25 mg xpeaqnUhpzpm00.5MGPODailyFebruary 2024 1:00amUnknownCalcium Carbonate-Vitamin D3 (Calcium 600 + D(3)) 600 mg- 10 mcg (400 unit) vpnjlwNgnfrv4XQZJEGqdchIejwizbb 2024 1:00amUnknown Elderberry Fruit 200 mg husuixdHaaham612UQKAHbtbnAhrhywji 2024 1:00am UnknownAscorbic Acid (Vitamin C) (C-500) 500 mg xnjwewMkwbvm154NSJKDtpjaCbngmelv 2024 1:00amUnknownCephalexin 500 mg idumyxuDdlputaamdmi073WKSGAqyog daily August 22, 2024 1:00amFebruary 2024 7:25amsinus infectionLorazepam 0.5 mg tabletDiscontinued0.5MGPODaily as needed for anxietyFebruary 2024 1:00am September 11, 2024 1:29pmLorazepam 0.5 mg tabletDiscontinued0.5MGPODaily as needed for bgrakbu237Emmbzjbr 2024 1:29pmFebruary 2024 1:37pm Oxycodone 5 mg wmhohmDhoixihjqooe4DCWCY6O as needed for Bxrk7462Dhlzyjdo 2024February 2024 1:37pmStatus post total knee replacement Presence of unspecified artificial knee jointLorazepam 0.5 mg tabletActive0.5MG PODaily as needed for owehqnv014Lcdvngvf 2024 1:37pmStatus post total knee replacement Presence of unspecified artificial knee jointUnknownOxycodone 5 mg tablet Bppmtllzcrny7DHNHI8W as needed for Hyef1524Qfnfopco 2024March 2024 1:25pmStatus post total knee replacement Presence of unspecified artificial knee jointAspirin 81 mg Tablet,Delayed Release (Dr/Ec)Svdkqsrfkrsy83KJIWOssrg tznch38Vjlhneoi 2024 1:00amJuly 2024 1:19pmDoxycycline Hyclate 100 mg DnhrtxBwaaewvkqijg986SAHXLdztb daily 00February 2024 1:00amJune 2024 11:37amAcetaminophen 500 mg Tablet Thctjf1305HURHN0O78Cnkikthb 2024 1:00amUnknownMetformin 500 mg tablet Jatpqkndkafx733GLJUUkpyiTiifnym 2018 12:002018 9:50am Lisinopril 20 mg tabletDiscontinued0.ROUTE.COMPLEXOctober 2018 12:00am May 20, 2019 9:50am5 mg AM and 10mg PMAtenolol 25 mg NcdgbnQxvkvvtaomsh01 MGPODailyOctober 2018 12:002018 9:50amFamotidine (Pepcid) 20 mg YbdwldBhlcewzezhtw89FSZZEknot as needed for IndigestionOctober 2018 12:002018 9:50amSimvastatin 20 mg ZpzmhiZlhlkzlipxar37CYWGOjnxt dailyOctober 2018 12:002018 9:50amEzetimibe (Zetia) 10 mg WdusrbOwjjilwbmhww49TLHEOaoziepXzwibyy 2018 12:002018 9:50amHydrocodone-Acetaminophen 5-325 mg TabletDiscontinued1 - 1NKATKV9D as needed for Yell33Cmrjlzk 2018 9:50amSubcapital fracture of left femur Pain of left hip Postoperative pain of extremity Pain in left hip Other acute postprocedural painAspirin 81 mg Tablet,Delayed Release (Dr/Ec) Cbbeehwcbfuw521GYOYVeusv imwjo07Pirlrky 2018 12:[facility] 2018 9:50amMagnesium Hydroxide (Milk Of Magnesia) 400 mg/5 mL SuspensionDiscontinued 30MLPODaily as needed for Hubdwpgkukxw27Sfbfjai 14th, 2019 12:[facility] 2018 9:50amAscorbic Acid (Vitamin C) (Vitamin C) 500 mg SczyzcGfbuqgdrbeaz968CE AUGipev12Ksjewhl 2018 12:00[facility] 2018 9:50amDocusate Sodium 100 mg TmxjaorTehkyzvwvgto242EJMGSykvz jccdu29Yyjlkvm 2018 12:[facility] 2018 9:50amCalcium Carbonate-Vitamin D3 (Oyster Shell Calcium-Vit D3) 500 mg(1,250mg) -200 unit EfhxupAvemqkoodqor6ZNPKC9x/Day with xpfzv23Jnkjgvi2018 12:00[facility] 2018 9:50amFerrous Sulfate 324 mg (65 mg iron) Tablet,Delayed Release (Dr/Ec)Hkekzasuegan694DPNTHqzzi iayvn86Fidukoj 2018 12:[facility] 2018 9:50amMetformin 500 mg TpgfssSszszghfjyqw081GDGKSwqyg 300May 19, 2019 1:00amNformerly [facility]2023 2:55pmAcetaminophen 325 mg ZlioqnDohzkztuxtyc953RXXXA1F as needed for Ezgj1492Ahkqsnih2018 1:00am July 15, 2023 4:00pmAcetaminophen 325 mg QnemjfWwgkmgosophw144UQBIS3L as needed for Zkmq28Qomeysvl2018 1:00[facility]2019 7:50pm Polyethylene Glycol 3350 (Miralax) 17 gram Powder In PmheubKnbolrlzbfqp03CALO Daily as needed for Ncobrnnpmrlu676Udvhhtcm 4th, 2019 1:00am[facility]20[facility] 4:00pmFamotidine 20 mg WguxfjWymjjnfxwbaw31CWPIGjvrz as needed for Mrpdktvoagx49 0May 19, 2019 1:00amNoveb[facility] 2019 9:20amDocusate Sodium 100 mg ZclxdjkPtmspmwlbkee031WMOYVofsq fswsl085Prmgrwov2018 1:00[facility]2019 7:54pmOmeprazole 20 mg Capsule,Delayed Release(Dr/Ec)Llwievxvwysg97FRVC Mkdrx499PdtijkjzMay 19, 2019 1:00[facility]2019 7:53pmLisinopril 5 mg UpoqbdNjquxqbxekly8KMMQYejtl akfpc380Aqzzaogn2018 1:00am[facility] 2023 2:49pmOndansetron 4 mg Tablet,WdalaslbredjpdBcqgumdybtgg6GRSWVygcu 4 hours as needed for Nausea And Gobmzlml101Phywvgog 4th, 2019 1:00[facility]2019 7:53pmOxycodone 5 mg PzauosSclizorxylcz85PRIMYculv 4 hours as needed for Ygpu708Xzpfhfrc2019 7:53pmPostoperative pain Closed fracture of neck of left femur Other acute postprocedural painOxycodone 5 mg YzclnsPefvedobhyzc6KSBCTcnpw 4 hours as needed for Gvcm1530Ewcxklkp2019 7:53pm Postoperative pain Closed fracture of neck of left femur Other acute postprocedural painMetoprolol Tartrate 25 mg LjrnaoZgrtbkoaxpyr41WP POTwice uaehp563Klnhktem2018 1:00[facility]2019 7:52pmCalcium Carbonate-Vitamin D3 (Oyster Shell Calcium-Vit D3) 500 mg(1,250mg) -200 unit TdppdyFvohnagpqbvz7VFLSY9j/Day with udncs595Urobqjja2018 1:00[facility]2019 7:54pmFerrous Sulfate 324 mg (65 mg iron) Tablet,Delayed Release (Dr/Ec)Yuthodicntqu456LTNKLbbtd shrvm296Iunapmby2018 1:00[facility]2019 7:54pmDiclofenac Sodium 1 % EpbIzxeeesquxof1KLRTOMBVMZworh times daily as needed for shoulder zehm765Kyotwpgo2018 1:00[facility]2019 7:54pm Diclofenac Sodium 1 % BsxPqvbserqkxsp3LOLUPAJEOFhwhm times ffxxg155Njglzfkr2018 1:002019 7:51pmBalsam Jaida-Hudson Oil (Venelex) Ointment Xlwygalovtik3MZYEBJAEIRSNXViaeg daily as needed for Skin Pumnqzughf80Wwvbaxbo 4th, 2019 1:002019 7:50pmSennosides (Senna Lax) 8.6 mg Tablet Cleavyfbnnrd9GKFWGMUKRN@12 as needed for If no BM in 2 cppa760Kjbsidxf2018 1:002019 7:54pmRivaroxaban (Xarelto) 15 mg TabletDiscontinued 15MGPOTwice daily Taper: Start: May 11, 2019 9:00pm End: June 01, 2019 8:59pm Frequency: BID Days: 21 Hours: 0 Dose: 15 Start: June 01, 2019 9:00pm End: July 01, 2019 8:59pm Frequency: DAILY Days: 30 Hours: 0 Dose: 2018 1:002019 7:54pmPlease contact the information source for Taper Schedule details.Simvastatin 40 mg tabletActive 40MGPODaily at bedtimeS2019 12:00amUnknownAtenolol 50 mg tablet Dfgcaguvkxly64GGIDDgpmmHougtrolx 21st, 2020 12:00amFebr2024 2:52pm Ezetimibe 10 mg PtzcqzBklcikskcdap35JDPGSbzpeHgtsmvqsm 21st, 2020 12:00am July 15, 2023 4:00pmDocusate Sodium 100 mg hjqoxwjTvmopqxnwnsk750NDNIDdpng April 05, 2020 7:53pmDece2022 4:00pmCalcium Carbonate-Vitamin D3 (Oyster Shell Calcium-Vit D3) 500 mg(1,250mg) -200 unit tabletDiscontinued1 TABPOTwice dailyApril 05, 2020 7:53pmDece2022 4:00pmFerrous Sulfate 324 mg (65 mg iron) tablet,delayed release (DR/EC)Rmiwdabuobch749UBPP every Sunday, Sunday, and 2019 7:53pmMay 31, 2020 9:19amDiclofenac Sodium 1 % pteYnazewjsexwc9JDVXBVUBEVypdj as needed for shoulder painSept2019 7:53pmDece2022 4:00pmRivaroxaban (Xarelto) 15 mg idwufqPxkjtxzxthyk02DHKRSekuo diuqu77127Jzkexoxfd 21st, 2020 12:00amNove2019 9:19ammust administer with a meal/foodAlendronate 35 mg dgtplzJpgdezzxqvzb59.5MGPOevery weekMay 31, 2020 1:00amDe[facility]2022 4:00pmWarfarin 5 mg hoeroeInppcnsxbcgs5BTBWExsjlWilasodo 16th, 2020 1:00am July 15, 2023 4:00pmFamotidine 20 mg bjqepqFuwcmv02YANOYncvkYrwzzfid 16th, 2020 9:19amUnknownHydrocodone-Acetaminophen 5-325 mg lbjszkTxpevlmyhyzh8RWRJW Three times dailyDe2022 1:00amFebruary 2024 1:27pmpain Celecoxib 100 mg capsuleDiscontinuedMGinsight surgical hospital2022 1:00amMarch 2023 1:01pmEscitalopram Oxalate 20 mg ygsfimDmezda90PYKMTnavn dailyDe2022 1:00amUnknownBenzonatate 200 mg lpjpdciGosognoqxkki297VMPUPybfx times daily as needed for ttguq775Tafcunld 31st, 2023 1:00amNoveer 2023 2:48pm Lidocaine 5 % adhesive patch,qfjefdayjJnbmqhowwour3KLNTDWQZHESJRngxz615Bivjw 2023 1:00amApril 2023 8:04amleave on most painful area for up to 12 hrsLisinopril 20 mg bkgpsxIuxbyn3HPMCYndqg dailyAt[facility]2023 1:00am UnknownFurosemide 20 mg rwwjykDpeyyy90MOHBPyjgl dailyCl[facility] 2023 1:00am UnknownMetformin 500 mg omxungQzpfxi603XHHUYyrjuEvjlemmy 2023 1:00am UnknownOmega 6-Zvh-Pjo-Fish Oil (Fish Oil) 1,200 (144-216) mg ameiruxArdmar6FAY PODailyNovember 2023 1:00amUnknownDoxycycline Hyclate 100 mg capsule Yurvyxzbpofm201NURQWsjkv arsek2459Cmarlmwx 2023 1:00amJanuary 2024 4:14pmBenzonatate 200 mg xlhivoeAokzsmqjzaul075RJVYUqafq times daily as needed for jlymb85125Rjgvnavh 23rd, 2024 1:00amFebruary 2024 2:52pmOxycodone 5 mg vhhiiwLwpokbohisnp7RJEAZ1J as needed for Giow5720Unokz 2024March 2024 1:49pmStatus post total knee replacement Presence of unspecified artificial knee jointdispense 42 (forty-two) tablets diagnosis Z96.659Hydrocodone-Acetaminophen 5-325 mg qbkbaaHonmjhOCSHT0Fuaq 2024 12:00amUnknownBlood Sugar Diagnostic (Rent The Dresstouch Ultra Test) stripActiveSTRIP .ROUTE.WQZXJJHAH60Ujbn 2024 12:00amAs directedCephalexin 500 mg capsule Fmidgmojxpft893LUUSGqwdx vuvks724Hwet 2024 12:00amJuly 2024 1:20pm Carbamide Peroxide (Debrox) 6.5 % eurhgZlgdcg8JNSXWWRX-KDPOBxnvt2853Jddw 2024 12:00amUnknown Immunizations Immunization Event Date Not Given Reason Dose Number Victim Witness Administrator Lot Number Reason(s) Given Vaccine Information Statement (VIS) Detail Administration Location Fluzone TIV High-Dose 65YR+ April 26, 2019 [facility], [facility], Pertussis (Tdap)July [id number] Medical Equipment Device Date Implanted Device Details Orthopaedic bone screw, non- bioabsorbable, non-sterile April 25, 2019 DONNA: ()[id number] Issuing Agency: [employer] Device Id: [id number] bone screw, non-bioabsorbable, non-sterile April 25, 2019UDI: ()[id number] Issuing Agency: [employer] Device Id: [id number] bone screw, non-bioabsorbable, non-sterile April 25, 2019UDI: ()[id number] Issuing Agency: [facility] Device Id: [id number] bone washer, non-sterileOctober 2018 DONNA: ()[id number] Issuing Agency: [facility] Device Id: [id number] bone washer, non-sterileOctober 2018 DONNA: ()[id number] Issuing Agency: [facility] Device Id: [id number] bone washer, non-sterileOctober 2018 DONNA: ()[id number] Issuing Agency: [facility] Device Id: [id number] cement, non-medicatedFebruary 2024 DONNA: ()[id number] Issuing Agency: [facility] Device Id: [id number] Expiration Date: 2026-09-12 Lot Number: [id number] cement, non-medicatedFebruary 2024UDI: ()[id number] Issuing Agency: [facility] Device Id: [id number] Expiration Date: 2026-09-12 Lot Number: [id number] cement, non-medicatedFebruary 2024UDI: ()[id number] Issuing Agency: [facility] Device Id: [id number] Expiration Date: 2026-09-12 Lot Number: [id number] knee tibia prosthesis, metallicFebruary 2024UDI: ()[id number] Issuing Agency: [facility] Device Id: [id number] Expiration Date: 2029-03-02 Lot Number: [id number] knee femur prosthesisFebruary 2024UDI: ()[id number] Issuing Agency: [facility] Device Id: [id number] Expiration Date: 2028-08-18 Lot Number: [id number] insertFebruary 2024UDI: ()[id number] Issuing Agency: [facility] Device Id: [id number] Expiration Date: 2028-02-14 Lot Number: [id number] stemFebruary 2024UDI: ()[id number] Issuing Agency: [facility] Device Id: [id number] Expiration Date: 2030-11-03 Lot Number: [id number] orthopaedic cement restrictor, non-bioabsorbable, sterileFebruary 2024UDI: ()[id number] Issuing Agency: [facility] Device Id: [id number] Expiration Date: 2029-02-13 Lot Number: [id number] Procedures Procedure Date Performed Status XR knee RT 3V - NOT FOR ER USE March 18 9:22am completed Urine Culture March 04, 2025 completed XR knee RT 3V - NOT FOR ER USE April 15, 2025 9:53am completed Relevant Diagnostic Tests and/or Laboratory Data Microbiology Results Procedure Source Result Collection Date/Time Result Date/Time Result Comment Performing Site Urine Culture Urine, Not Otherwise Specified Escherichia coli March 04, 2025 8:15pm March 07, 2025 8:04am [facility] [id number] [address] [place] [address] Diagnostic Imaging Reports Author Dedrick Arroyo [facility] HospitalAuthoredSeptember 2024 4:48pmReport Dictated Date/TimeDictated ByStatusRadiology ReportSeptember 2024 4:48pm Dedrick Arroyo Jr DOcompK[facility] [address] [place] [address] XRay Report Signed Patient: Nata Cunningham MR#: [id number] : 1945 Acct:[id number] Age/Sex: 79 / F ADM Date: 5 Loc: [facility] Room: Type: REG CLI Attending Dr: João Soto DO Copies to: João Soto DO~ Ordering Provider: João Soto DO Date of Service: 03/18/25 XR/XR knee RT 3V - NOT FOR ER USE: M17.11 - Unil ateral primary osteoarthritis, right knee RIGHT KNEE - [...] STUDY. Impression dictated by: Dedrick Arroyo Jr., D.OKiara 03/18/2025 4:49 PM Dictation Location: [place] [address] Transcribed By: [facility] 03/18/25 1649 Dictated By: Dedrick Arroyo Jr, DO 03/18/25 1648 Signed By: <Electronically signed by Dedrick Arroyo Jr, DO in OV> 03/18/25 1649 Author Alvin Newby [facility] HospitalAuthoredOctpikeville medical center 2024 8:54pmReportDictated Date/TimeDictated ByStatusRadiology ReportOctober [address] [facility] [address] [place] [address] XRay Report Signed Patient: Nata Cunningham MR#: [id number] : 1945 Acct:[id number] Age/Sex: 80 / F ADM Date: 5 [facility]: [facility] [facility] Room: Type: REG CLI Attending Dr: João [...] Newby M.D. 04/15/2025 8:56 PM Dictation Location: [facility] Transcribed By: PWS 04/15/252055 Dictated By: Alvin Newby DO 04/15/252053 Signed By: <Electronically signed by Alvin Newby DO in OV> 04/15/252055 Advance Directives Advance Directive Response Recorded Date/ Time Advance Directives Yes April 24, 2019 6:58pm Insurance Providers Guarantor Nata Vazquez [place] Address [address] [address]Pjzgdzo Info.Home Phone: Coverage Status Update:2024 Payer Group Member ID Coverage Type Subscriber Relationship to Subscriber Effective Date Expiration Date Medicare [id number] A [place] Id: [id number] [address] [address] Home Phone: Email: DECLINED 20elfMedicare Rehab-IP Part A Id: Plan [id number] [place] Id: [id number] [address] [address] Home Phone: Email: DECLINED 20elf Encounters Encounter Location(s) Arrival/Admit Date Discharge/Departure Date Discharge/Departure Disposition Provider(s) Departed Referred -[facility] March 04, 2025 8:15pm March 04, 2025 8:16pm Discharged to home care or self care (routine discharge) Bryan Walker DO Departed Clinical -[facility] March 18, 2025 9:22am March 18, 2025 9:23am Discharged to home care or self care (routine discharge) João Soto DO Departed Physician/ Provider Office Visit -[facility] March 18, 2025 12:45pm March 18, 2025 1:36pm Discharged to home care or self care (routine discharge) João Soto DO Departed Clinical -[facility] April 15, 2025 9:53am April 15, 2025 9:54am Discharged to home care or self care (routine discharge) João Soto DO Departed Physician/ Provider Office Visit -[facility] April 15, 2025 2:47pm April 15, 2025 3:41pm Discharged to home care or self care (routine discharge) João Soto DO Discharged Recurring -[facility] May 06, 2025 4:30pm May 06, 2025 6:00pm Discharged to home care or self care (routine discharge) João Soto DO Recent Diagnosis Onset Date Admit Date Avulsion fracture Unknown March 18, 2025 12:45pm Primary osteoarthritis of left knee Unknown March 18, 2025 12:45pm Primary osteoarthritis of right knee Unknown March 18, 2025 12:45pm Primary osteoarthritis of right shoulder Unknown March 18, 2025 12:45pm Status post total right knee replacement Unknown March 18, 2025 12:45pm Avulsion fracture Unknown April 15, 2 025 2:47pm Primary osteoarthritis of left knee Unknown April 15, 2025 2:47pm Primary osteoarthritis of right knee Unknown April 15, 2025 2:47pm Primary osteoarthritis of right shoulder Unknown April 15, 2025 2:47pm Status post total right knee replacement Unknown April 15, 2025 2:47pm Assessments Diagnosis Onset Date Resolution Status Admit Date Avulsion fracture acuteSept2024 12:45pmPrimary osteoarthritis of left kneeacute March 18, 2025 12:45pmPrimary osteoarthritis of right kneeacuteSept2024 12:45pmPrimary osteoarthritis of right shoulderacuteSept2024 12:45pmStatus post total right knee replacementnoneactiveSept2024 12:45pmAvulsion fractureacuteOctober 2024 2:47pmPrimary osteoarthritis of left kneeacuteOct2024 2:47pmPrimary osteoarthritis of right knee acuteOct2024 2:47pmPrimary osteoarthritis of right shoulderacute April 15, 2025 2:47pmStatus post total right knee replacementnoneactive April 15, 2025 2:47pm Plan of Treatment Author João Soto [facility] 11:25amNata presents today over 6 months s/p right total knee arthroplasty. They are doing well. Physical exam is benign with a healthy appearing wound and range of motion of 0- 110 but she does have extensor lag actively. X-rays today showed tibial tubercle avulsion, no injury or increase in pain so unsure when this happened. Have had a thorough discussion today based on options revolving this. Without any increased pain or increased deficit in her continued improvement with PT I have encouraged to continue working on strengthening with therapy and we will plan for nonoperative treatment. Will plan to see him back in 4 weeks for x-rays to see if there is any change in this Right shoulder DJD seems to be bothering her today. She would like to try another injection today as that has given her relief in the past. Risks and benefit of injection were discussed and verbal consent was obtained. Under sterile technique the patient's right shoulder was injected via the posterior portal with 4 cc of Marcaine and 1 cc of Kenalog, this was tolerated well without any adverse reaction. Band-Aid was applied to the area. Can follow-up as needed Today we have discussed degenerative joint disease of the knee and its treatment. Imaging was discussed and explained to the patient. We discussed recommended conservative therapies including physical therapy, anti-inflammatory medications, and weight loss strategies. We also discussed other treatment options including cortisone injections, Visco supplementation injections which are options for treatment. I have laid out the course of knee DJD including the end- stage treatment of total joint arthroplasty. The patient recognizes and understands our options and goals and we will move forward with our treatment. Today we have initiated repeat cortisone injection. Under sterile technique patient's left knee was injected via the inferolateral portal with 4 cc Marcaine 1 cc of Kenalog and she tolerated this well. I will see them back as needed for this. Nata has new tibial tubercle avulsion on the right side. We will treat this conservatively. Continue working with therapy. Return in 4 weeks for repeat x-rays Right knee- Radiographs reviewed in detail with patient and company as evidence of right tibial tubercle avulsion fracture. Would recommend surgical intervention at this time due to lack of full extension of the knee. Surgical procedure, risks, recovery and restrictions discussed in detail, including maintaining full extension for at least 6 weeks post op. Discussed surgery would likely leave her with increased stiffness but improved extension and some strength. Patient was in understanding of the surgery and risks and wishes to avoid surgery at this time, understanding she will likely continue to lack some level of function of the knee. We will continue to monitor this condition. Continue physical therapy exercises. Left Knee and Right Shoulder- Extensive discussion about current condition and treatment options available. Patient was prepped and cortisone was injected into the left knee joint and right shoulder under sterile conditions. Patient tolerated well with no adverse reactions. Author João Soot [facility] HospitalAuthoredOct[facility] 2024 7:30amNata presents today over 6 months s/p right total knee arthroplasty. They are doing well. Physical exam is benign with a healthy appearing wound and range of motion of 0- 110 but she does have extensor lag actively. X-rays today showed tibial tubercle avulsion unchanged. Have had a thorough discussion today based on options revolving this. Without any increased pain or increased deficit in her continued improvement with PT I have encouraged to continue working on strengthening with therapy and we will plan for nonoperative treatment. Will plan to see at one year anniversary for recheck Right shoulder DJD seems to be bothering her today. Continue to monitor. Can follow-up as needed Today we have discussed degenerative joint disease of the knee and its treatment. Imaging was discussed and explained to the patient. We discussed recommended conservative therapies including physical therapy, anti-inflammatory medications, and weight loss strategies. We also discussed other treatment options including cortisone injections, Visco supplementation injections which are options for treatment. Continue to monitor. I will see them back as needed for this. Nata has new tibial tubercle avulsion on the right side. We will treat this conservatively. Continue working with therapy. Return in 4 weeks for repeat x-rays Images were reviewed in detail with the patient and company. Orthopedic hardware remains in appropriate alignment. We discussed continuing to progress activity as tolerated. She will follow up at the 1 year anniversary with repeat xrays. Future Tests Future scheduled test information is unavailable Pending Tests Pending diagnostic test information is unavailable Future Visits Future appointment information is unavailable Future Procedures Future procedure information is unavailable Future Medications Future medication information is unavailable Patient Instructions Patient instructions are unavailable
--- OUTSIDE RECORDS SUMMARY | 2025-05-16 11:15 | XMS_ITS | CCD ---
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 Role Phone PAULA, WAYNE P Unavailable Unavailable MARILU JACOBSON M Unavailable Unavailable PAULA, WAYNE P Unavailable Unavailable [...] Primary Care Provider GERARDO Hdz Emergency Provider [phone] Zuri Hannah MD Unavailable [phone] Zuri Hannah MD Primary Care Provider Aisha RAGLAND Primary Care Physician Kaci Morton Admitting Unavailable Kaci Morton Attending Unavailable Dillon Hurtado Attending Unavailable Aisha RAGLAND Referring Unavailable ISELA Morton Admitting Unavailabl e Kaci Morton Attending Unavailable ISELA Ragland Primary Care Provider MD Dharmesh Boss Emergency Provider ROMIE CastilloC Lisa Lei Attending Provider [place] CHESTER, Zuri Song Primary Care Provider Aisha Ragland PA-C Primary Care Provider Braxton Soto DOin A Attending Provider Aisha Ragland PA-C Primary Care Provider [phone] Braxton Soto DOin A Attending Provider [place] CHESTER, Zuri Song Unavailable [place] CHESTER, Zuri Song Primary Care Provider Aisha Ragland PA-C Primary Care Provider [phone] Braxton Soto DOin A Attending Provider Aisha Ragland PA-C Primary Care Provider Braxton Soto DOin A Attending Provider Aisha Ragland PA-C Primary Care Provider Amanda Cabral Attending Provider [phone] João Soto DO A Attending Provider Aisha Ragland PA-C Primary Care Provider [phone] João Soto DO A Attending Provider [phone] Amanda Roberts APRN Attending Provider Aisha Ragland PA-C Primary Care Provider [phone] Braxton Soto DOin A Attending Provider Alvin Benito DO Attending Provider [phone] Aisha Ragland PA-C Primary Care Provider TABITHA VALENTINO Attending UnavailAISHA Jc Attending Unavailable AISHA RAGLAND Attending Unavailable TABITHA VALENTINO Attending Unavailabl e AISHA RAGLAND Attending Unavailable AISHA RAGLAND Attending Unavailable TABITHA VALENTINO Attending Unavailabl e AISHA RAGLAND Attending Unavailable Brittany DO, João A Attending Provider [phone] Aisha Ragland PA-C Primary Care Provider Aisha Ragland Primary Care Unavailable Brittany, João A Admitting Unavailable Brittany, João A Attending Unavailable Brittany, João A Admitting Unavailable Aisha Ragland Primary Care Unavailable Brittany, João A Attending Unavailable Brittany, João A Admitting Unavailable MeaganAisha rey Primary Care Unavailable Brittany, João A Attending Unavailable [place], Amanda Admitting Unavailable Hackirvin, Amanda Attending Unavailable Aisha Ragland Primary Care Unavailable Brittany, João A Admitting Unavailable Brittany, João A Attending Unavailable Brittany, João A Attending Unavailable Aisha Ragland Primary Care Unavailable Brittany, João A Admitting Unavailable KatkoYomiAlvin D Admitting Unavailable Alvin Benito D Attending Unavailable Aisha Ragland Primary Care Unavailable Brittany, João A Admitting Unavailable Brittany, João A Attending Unavailable Brittany, João A Attending Unavailable Aisha Ragland Primary Care Unavailable Brittany, João A Admitting Unavailable Brittany, João A Attending Unavailable Aisha Ragland Primary Care Unavailable Brittany, João A Admitting Unavailable Allergies Allergy ClassificationReported Allergen(s)Allergy TypeDate of OnsetReaction(s) Facility (1 source)Bee; Translations: [BEES]Propensity to adverse reactions (disorder) 42-00-5841HNRGcmxcorlqUniversity [facility]als [facility] (20 sources)tioconazole; Translations: [TIOCONAZOLE]Drug Azapbba40-44-7974OYI, Itching, Itching, rashOhio[facility] (15 sources)Bee/Wasp/Ant venom; Translations: [Bee Stings]Propensity to adverse reactionsanaphylaxis, Unknown (qualifier value)[facility] (11 sources)MiconazoleDrug AllergyNorth [facility] Other (20 sources)traMADol; Translations: [tramadol]Drug Kdlrgmy56-45-0724Uxpvucu, Unknown (qualifier value)[facility] (1 source)Bee pollenDrug allergy (disorder)92-01-8339Xkw [facility] Repository (1 source)MiconazoleDrug Gytggih45-94-6377Bnn [facility] Repository (3 sources)venom-honey beeAllergy to nrksretvr00-50-1944DuwmjclcOpoklkkilTwin City Hospital (20 sources)Bee pollenAllergy to joldzghlv31-27-2882RrsoxumEFJJ Healthcare Work Phone: (20 sources)Honey bee venomAllergy to tijfyqyju41-81-0339Qajdrxkgn of breathNOMS Healthcare (20 sources)Miconazole; Translations: [miconazole topical]Drug Tlzjojw28-54-3745 Unknown, Unknown (qualifier value)[facility] Healthcare (3 sources)Latex; Translations: [Latex]Drug allergyOther (qualifier value)[facility] (1 source)Miconazole; Translations: [Miconazole Nitrate]Drug AllergyMer[facility] Repository (20 sources)bee venom protein (honey bee); Translations: [bee venom protein (honey bee)]Allergy to grrawqpvt98-79-6405clhynnpefumFbaufnmql [facility] (1 source)traMADolDrug Dgkwqpw91-37-1496BhtcbtlhqWilson [facility] Repository Medications Current Medications MedicationDrug Class(es)DatesSig (Normalized)Sig (Original)acetaminophen 500 mg oral tablet (20 sources)Start: 16-18-8949gvtj 2 tablets by mouth every eight hoursStart: 05-19-2019 End: 09-18-0564svtr 1 tablet by mouth every four hours as needed for pain Acetaminophen 325 mg Tablet Discontinued 325 MG PO Q4H as needed for Pain 100 0 May 19, 2019 1:00am July 15, 2023 4:00pmStart: 05-19-2019 End: 39-79-4350fuzo 2 tablets by mouth every four hours as needed for pain Acetaminophen 325 mg Tablet Discontinued 650 MG PO Q4H as needed for Pain 0 0 May 19, 2019 1:00am April 05, 2020 7:50pmStart: 05-19-2019 End: 44-01-2326xanc 650 mg by mouth every four hoursAcetaminophen Discontinued 650 MG PO Q4H 0 May 19, 2019 1:00am April 05, 2020 7:50pm acetaminophen 325 mg / HYDROcodone bitartrate 5 mg oral tablet (20 sources)Opioid AgonistStart: 01-90-1017xpiv 1 tablet by mouth in the morning HYDROcodone-acetaminophen ([place]) 5-325 MG tablet Indications: Chronic pain disorder Take 1 tablet by mouth in the morning and 1 tablet in the evening and 1 tablet before bedtime. Do not start beforeMarch 28, 2025. 90 tablet 03/28/2025 ActiveStart: 03-27-2025 End: 26-16-1517dofc 1 tablet by mouth three times daily as needed for pain HYDROcodone-acetaminophen ([place]) 5-325 MG tablet Indications: Chronic pain disorder Take 1 tablet by mouth 3 (three) times a day as needed for severe pain 90 tablet 04/24/2025 ActiveStart: 12-01-2024 End: 44-79-8946Mgbaz: 07-28-2024 End: 09-63-3650jscf 1 tablet by mouth in the morning, then take 1 tablet by mouth in the evening, then take 1 tablet by mouth at bedtimeHYDROcodone- acetaminophen ([place]) 5-325 MG tablet Indications: Chronic pain disorder Take 1 tablet by mouth in the morning and 1 tablet in the evening and 1 tablet before bedtime. 90 tablet 10/28/2024 ActiveStart: 70-02-3459ljzb 1 tablet by mouth in the morning, then take 1 tablet by mouth in the evening, then take 1 tablet by mouth at bedtimeHYDROcodone-acetaminophen ([place]) 5-325 MG tablet Indications: Chronic pain disorder Take 1 tablet by mouth in the morning and 1 tablet in the evening and 1 tablet before bedtime. 90 tablet 07/01/2024 ActiveStart: 04-07-2024 End: 72-77-2906dfve 1 tablet by mouth in the morning, then take 1 tablet by mouth in the evening, then take 1 tablet by mouth at bedtimeHYDROcodone- acetaminophen ([place]) 5-325 MG tablet Indications: Chronic pain disorder Take 1 tablet by mouth in the morning and 1 tablet in the evening and 1 tablet before bedtime. 90 tablet 06/02/2024 ActiveStart: 07-15-2023 End: 11-16-9107jswr 1 tablet by mouth three times dailyHydrocodone-Acetaminophen 5-325 mg tablet Discontinued 1 TAB PO Three times daily July 15, 2023 1:00am September 11, 2024 1:27pm painStart: 07-10-2023 End: 26-66-2266vypw 1 tablet by mouth in the morningHYDROcodone-acetaminophen ([place]) 5-325 MG tablet Indications: Chronic pain disorder Take 1 tablet by mouth in the morning and 1 tablet before bedtime. 60 tablet 03/10/2024 Active Start: 14-05-1586ghcb 1 tablet by mouth every six hoursHYDROcodone-Acetaminophen 5-325 MG 1 tablet as needed Orally every 6 hrs for 7 days Jun, Active Start: 25-34-7008ogyu 1 tablet by mouth every six hoursStart: 04-28-2019 End: 99-77-6625wrad 1 tablet by mouth every four hours as needed for pain Hydrocodone-Acetaminophen 5-325 mg Tablet Discontinued 1 - 2 TAB PO Q4H as needed for Pain 0 0 April 28, 2019 May 20, 2019 9:50am Subcapital fracture of left femur Pain of left hip Postoperative pain of extremity Pain in left hip Other acute postprocedural painalendronic acid 35 mg oral tablet (20 sources)BisphosphonateStart: 12-24-4994rzfuofqbnai (Fosamax) 35 MG tablet Indications: Chronic pain disorder Take 1 tablet (35 mg) by mouth every 7 (seven) days. Patient taking 1/2 tablet once per week 12 tablet 11 03/27/2023 ActiveStart: 62-16-3135eavt 1 tablet by mouth once dailyalendronate 35 mg oral tablet 35 mg = 1 tab(s), Oral, Daily, Refills(s) 0 Start Date: 06/18/20 Status: OrderedStart: 05-31-2020 End: 18-60-7103Zioghetuyeo 35 mg tablet Discontinued 17.5 MG PO every week May 31, 2020 1:00am July 15, 2023 4:00pmStart: 05-31-2020 End: 58-00-0419sfrk 17.5 mg by mouth every weekAlendronate Discontinued 17.5 MG PO every week May 31, 2020 1:00am July 15, 2023 4:00pmascorbic acid 500 mg oral tablet (20 sources)Vitamin CStart: 44-40-1711dgit 1 tablet by mouth once dailyStart: 04-28-2019 End: 37-77-4728nrxr 1 tablet by mouth once dailyAscorbic Acid (Vitamin C) (Vitamin C) 500 mg Tablet Discontinued 500 MG PO Daily 0 0 April 28, 2019 12:00am May 20, 2019 9:50amAscorbic Acid (VITAMIN C PO) Take by mouth Activeatenolol 25 mg oral tablet (20 sources)beta-Adrenergic BlockerStart: 06-11-6098cllf 0.5 tablet by mouth once dailyatenolol (Tenormin) 25 MG tablet Indications: Essential hypertension Take 1/2 (one-half) tablet by mouth once daily 45 tablet 3 02/08/2025 Active Start: 71-64-1186Eebhg: 01-04-2024 End: 00-54-3530pjkl 0.5 tablet by mouth once dailyatenolol (Tenormin) 25 MG tablet Indications: Essential hypertension Take 0.5 tablets (12.5 mg) by mouth Daily Take 12.5mg by mouth daily 45 tablet 3 01/04/2024 ActiveStart: 06-18-2020 take 1 tablet by mouth once dailyatenolol 50 mg Tab 50 mg = 1 tab(s), Oral, Daily, Refills(s) 0 Start Date: 06/18/20 Status: OrderedStart: 04-05-2020 End: 82-12-9461Bcihdwwq 50 mg tablet Discontinued 25 MG PO Daily April 05, 2020 12:00am August 22, 2024 2:52pmStart: 38-70-8242ufxg 25 mg by mouth once dailyAtenolol Active 25 MG PO Daily April 05, 2020 12:00amStart: 04-24-2019 End: 15-21-5099fvyb 1 tablet by mouth once dailyAtenolol 25 mg Tablet Discontinued 25 MG PO Daily April 24, 2019 12:00am May 20, 2019 9:50am atenolol (Tenormin) 50 MG tablet Take 12.5 mg by mouth in the morning. 0 Active take 0.5 tablet by mouth once dailyAtenolol 25 MG 1/2 tablet Orally Once a day for 30 day(s) ActiveBlood Glucose Monitoring Suppl (ONE TOUCH ULTRA 2) w/Device kit (20 sources)Start: 03-81-0071Utojz Glucose Monitoring Suppl (ONE TOUCH ULTRA 2) w/Device kit 04/26/2022 ActiveStart: 69-10-6737Basdi Glucose Monitoring Suppl (ONE TOUCH ULTRA 2) w/Device kitCalcium Carb-Cholecalciferol (CALCIUM 600 + D PO) (20 sources)Calcium Carb-Cholecalciferol (CALCIUM 600 + D PO) Take by mouth Activecalcium carbonate 600 mg chewable tablet (5 sources)Start: 92-78-8349pymf 1 tablet by mouth once dailycalcium carbonate 600 mg oral tablet, chewable 600 mg = 1 tab(s), Chewed, Daily, Refills(s) 0 StartDate: 06/18/20 Status: Ordered End: 73-58-8450fmpzlco carbonate 1500 (600 Ca) MG tablet 2 (two) times a day with meals. 0 08/14/2023 Discontinuedcalcium carbonate 1500 mg / cholecalciferol 0.01 mg oral tablet (20 sources)Vitamin DStart: 45-26-3449czzr 1 tablet by mouth once dailyStart: 04-05-2020 End: 90-05-2744xocq 1 tablet by mouth twice dailyCalcium Carbonate-Vitamin D3 (Oyster Shell Calcium-Vit D3) 500 mg(1,250mg) -200 unit tablet Discontinued 1 TAB PO Twice daily April 05, 2020 7:53pm July 15, 2023 4:00pmStart: 04-28-2019 End: 35-78-4282phow 1 tablet by mouth once at mealtimeCalcium Carbonate-Vitamin D3 (Oyster Shell Calcium-Vit D3) 500 mg(1,250mg) -200 unit Tablet Discontinued 1 TAB PO 3x/Day with meals 90 0 May 19, 2019 1:00am April 05, 2020 7:54pmcarbamide peroxide 65 mg/ml otic solution (8 sources)Start: 96-36-9351fenutdtska fruit 200 mg oral capsule (16 sources)Start: 29-92-9565zvar 1 capsule by mouth once dailyElderberry preparation (20 sources)Start: 96-86-6143wzgmxakqlb Refill(s) 0 Start Date: 10/17/23 Status: OrderedElderberry 575 MG/5ML syrup ActiveElderberry 575 MG/5ML syrup as directed Orally ActiveElderberry 575 MG/5ML syrup as directed Orally 0 Activeescitalopram 20 mg oral tablet (20 sources)Serotonin Reuptake InhibitorStart: 69-15-7721gvflhaeahfno Refills(s) 0 Start Date: 10/17/23 Status: OrderedStart: 23-65-7809ahbj 10 mg by mouth twice dailyStart: 24-65-4026Vcvixerothvw Oxalate Active MG TABLET July 15, 2023 1:00amStart: 07-06-2023 End: 18-56-8311ijww 1 tablet by mouth at bedtimeescitalopram (Lexapro) 20 MG tablet Indications: Reactive depression Take 1 tablet (20 mg) by mouthat bedtime 90 tablet 3 05/26/2024 Activeferrous gluconate 256 mg oral tablet (1 source)Start: 26-40-5501iooo 2 tablets by mouth once dailyferrous gluconate 256 mg (28 mg elemental iron) oral tablet 2, Oral, Daily, # 100 tab(s), Refills(s) 0 Start Date: 06/18/20 Status: OrderedFish Oils (20 sources)omega-3 (Fish Oil) 1200 MG capsule 1 capsule 1 (one) time each day at the same time Activeomega-3 (Fish Oil) 1200 MG capsule 1 capsule 1 (one) time each day at the same time. Activeomega-3 (Fish Oil) 1200 MG capsule 1 capsule 1 (one) time each day at the same time. 0 Activefluticasone propionate 0.05 mg/actuat metered dose nasal spray (1 source)CorticosteroidStart: 33-74-3796Lemcrki Allergy Relief 50 mcg/inh nasal spray = 2 spray(s), Nasal, Daily, Refills(s) 0 Start Date: 06/18/20 Status: Orderedfurosemide 20 mg oral tablet (20 sources)Loop DiureticStart: 05-92-4418ipgt 10 mg by mouth twice dailyStart: 79-15-1769ecuydhgmfi Refills(s) 0 Start Date: 10/17/23 Status: OrderedStart: 06-25-2023 End: 42-35-9856bouu 1 tablet by mouth once dailyfurosemide (Lasix) 20 MG tablet Indications: Essential hypertension , Controlled type 2 diabetes mellitus with diabetic polyneuropathy, without long-term current use of insulin (HCC) TAKE 1 TABLET BYMOUTH EVERY DAY 90 tablet 3 06/26/2024 ActiveHYDROcodone (2 sources)Opioid AgonistStart: 73-07-0989gshjpdmzkzi Refills(s) 0 Start Date: 10/17/23 Status: Orderedlidocaine 0.05 mg/mg medicated patch (20 sources)Antiarrhythmic, Amide Local AnestheticStart: 01-05-2025 End: 40-07-5138kgjzj 1 dose transdermal route once dailyStart: 09-17-2023 End: 14-92-4226fkkjr 1 dose topically once dailyLidocaine Discontinued 2 PATCH TOPICAL Daily September 17, 2023 1:00am October 17, 2023 8:04am leaveon most painful area for up to 12 hrsStart: 04-06-2021 End: 22-25-4012cfybd 1 dose topically once dailyLidocaine 5 % adhesive patch,medicated Discontinued 2 PATCH TOPICAL Daily 30 September 17, 2023 1:00am October 17, 2023 8:04am leave on most painful area for up to 12 hrsStart: 64-21-9657Ujcgdmbxs 5 % 1 patch remove after 12 hours Externally Once a day for 30 days Mar, Not-Taking/PRNStart: 31-72-2807Kifomfswr 5 % 1 patch remove after 12 hours Externally Once a day for 30 days Mar, Activelisinopril 20 mg oral tablet (20 sources)Angiotensin Converting Enzyme InhibitorStart: 07-45-7844atea 5 mg by mouth twice dailyStart: 38-05-1918zraf 1 tablet by mouth once dailyLisinopril 20 mg tablet Active 20 MG PO Daily June 07, 2024 12:00amStart: 01-04-2024 End: 82-78-7300ftqw 0.25 tablet by mouth twice dailylisinopril 20 MG tablet Indications: Essential hypertension TAKE 1/4 (ONE-FOURTH) TABLET BY MOUTH TWICE DAILY 45 tablet 3 03/19/2025 ActiveStart: 11-16-7274pvjb 0.25 tablet by mouth twice dailylisinopril 20 MG tablet Indications: Essential hypertension (CMS/HCC) TAKE 1/4 TABLET BY MOUTH TWICE DAILY for 90 40 tablet 3 04/12/2023 ActiveStart: 05-19-2019 End: 18-53-9962glrq 1 tablet by mouth twice dailyLisinopril 5 mg Tablet Discontinued 5 MG PO Twice daily 60 0 May 19, 2019 1:00am June 07, 2024 2:49pmStart: 04-24-2019 End: 75-28-1182Ouqealzzpg 20 mg tablet Discontinued 0 .ROUTE .COMPLEX April 24, 2019 12:00am May 20, 2019 9:50am 5 mg AM and 10mg PMStart: 04-24-2019 End: 49-48-7193Hwhefwvngf Discontinued 0 .ROUTE .COMPLEX April 24, 2019 12:00am May 20, 2019 9:50am 5 mgAM and 10mg PMtake 1 tablet by mouth every twenty-four hoursLisinopril 20 MG 1 tablet Orally Once a day for 30 day(s) ActivemetFORMIN hydrochloride 500 mg oral tablet (20 sources)BiguanideStart: 10-09-2023 End: 00-13-8861vbwx 1 tablet by mouth once dailyStart: 17-94-9004zoue 0.5 tablet by mouth once dailymetformin 500 mg ER Tab 0.5, Oral, Daily, Refills(s) 0 Start Date: 06/18/20 Status: OrderedStart: 04-24-2019 End: 65-97-3545Gtacbpdhw 500 mg Tablet Discontinued 250 MG PO Daily 30 0 May 19, 2019 1:00am June 07, 2024 2:55pmStart: 04-24-2019 End: 08-20-8119orub 250 mg by mouth once dailyMetformin Active 250 MG PO Daily May 19, 2019 1:00ammetFORMIN (Glucophage) 500 MG tablet 1 (one) time each day at the same time. 0 ActiveOmega 4-Hyt-Vfp-Fish Oil (Fish Oil) 1,200 (144-216) mg capsule (17 sources)Start: 76-03-1727sjgg 1 capsule by mouth once dailyStart: 06-07-2024 take 1 capsule by mouth once dailyOmega 6-Lzw-Kbe-Fish Oil (Fish Oil) 1,200 (144-216) mg capsule Active 1 CAP PO Daily May 1:00am Complies with drug therapyStart: 08-24-4802iyko 1 capsule by mouth once dailyOmega 9-Zwe-Rtm-Fish Oil (Fish Oil) 1,200 (144-216) mg capsule Active 1 CAP PO Daily May 1:00amStart: 54-29-8697rjgr 1 capsule by mouth once daily [place] 0-Ibu-Sld-Fish Oil (Fish Oil) 1,200 (144-216) mg capsule Active 1 CAP PO Daily May 12:00amStart: 66-83-2540Tmrdk 7-Toe-Jft-Fish Oil (Fish Oil) 1,200 (144-216) mg capsule Active CAP PO June 07, 2024 12:00am phenazopyridine hydrochloride 100 mg oral tablet (1 source)Start: 10-01-2023 End: 09-62-8036hfdb 1 tablet by mouth three times dailyPyridium 100 mg Tab 100 mg = 1 tab(s), Oral, TID, X 3 day(s), # 9 tab(s), Refills(s) 0, Pharmacy: [id number], 175, cm, 10/01/23 5:36:00 EDT, Height/Length Dosing, 55, kg, 10/01/23 5:36:00 EDT, Weight Dosing Start Date: 10/01/23 Stop Date: 10/04/23 Status: Orderedsimvastatin 40 mg oral tablet (20 sources)HMG-CoA Reductase InhibitorStart: 04-05-2020 End: 17-47-4571ixrt 1 tablet by mouth once daily at bedtimeStart: 04-05-2020 Simvastatin 40 mg tablet Active 20 MG PO Daily at bedtime April 04, 2020 11:00pmStart: 73-86-0051drnp 20 mg by mouth once daily at bedtimeSimvastatin Active 20 MG PO Daily at bedtime April 05, 2020 12:00amStart: 04-05-2020 take 20 mg by mouth twice dailySimvastatin Active 20 MG PO Twice daily April 04, 2020 11:00pmStart: 04-24-2019 End: 29-66-2128jvvf 1 tablet by mouth twice dailySimvastatin 20 mg Tablet Discontinued 20 MG PO Twice daily April 24, 2019 12:00am May 9:50amwarfarin sodium 4 mg oral tablet (20 sources)Vitamin K AntagonistStart: 08-28-0096eounohgh 4 mg Tab Refills(s) 0 Start Date: 06/18/20 Status: OrderedStart: 05-31-2020 End: 03-57-2850zzty 1 tablet by mouth once dailyWarfarin 5 mg tablet Discontinued 5 MG PO Daily May 31, 2020 1:00am July 15, 2023 4:00pm Zofran ODT 4 mg Tab-Dis (1 source)Start: 16-25-7550blnm 1 tablet by mouth every eight hoursZofran ODT 4 mg Tab-Dis 4 mg = 1 tab(s), Oral, q8hr, # 12 tab(s), Refills(s) 0, Pharmacy: [id number], 144, cm, 07/22/21 18:14:00 EST, Height/Length Dosing, 55.9, kg, 07/22/21 18:14:00 EST,Weight Dosing Start Date: 07/22/21 Status: Ordered Completed/Discontinued Medications MedicationDrug Class(es)DatesSig (Normalized)Sig (Original)aspirin 81 mg delayed release oral tablet (20 sources)Platelet Aggregation Inhibitor, Nonsteroidal Anti-inflammatory Drug Start: 09-11-2024 End: 14-17-6658zgbw 1 tablet by mouth twice dailyAspirin 81 mg Tablet,Delayed Release (Dr/Ec) Discontinued 81 MG PO Twice daily 0 0 September 11, 2024 1:00am January 26, 2025 1:19pmStart: 02-03-9467glycmzn 81 mg Chew Tab 81 mg = 1 tab(s), Chewed, Daily, Refills(s) 0 Start Date: 06/18/20 Status: OrderedStart: 04-28-2019 End: 06-18-0206Hmgfsoo 81 mg Tablet,Delayed Release (Dr/Ec) Discontinued 325 MG PO Twice daily 0 0 April 28, 2019 12:00am May 20, 2019 9:50amStart: 04-28-2019 End: 61-99-1714abfc 325 mg by mouth twice dailyAspirin Discontinued 325 MG PO Twice daily 0 April 28, 2019 12:00am May 20, 2019 9:50amtake 1 tablet by mouth every twenty-four hoursAspirin 81 81 MG 1 tablet Orally Once a day Activetake 1 tablet by mouth once dailyAspirin 81 81 MG 1 tablet Orally Once a day Activetake 1 tablet by mouth once dailyAspirin 81 81 MG 1 tablet Orally Once a day Activebenzonatate 200 mg oral capsule (20 sources)Non-narcotic AntitussiveStart: 06-18-2020 End: 33-54-2855atdk 1 capsule by mouth three times daily as needed for cough Benzonatate 200 mg capsule Discontinued 200 MG PO Three times daily as needed for cough 30 10 0 June 07, 2024 1:00am August 22, 2024 2:52pmCalcium Carbonate-Vitamin D3 (Oyster Shell Calcium-Vit D3) 500 mg(1,250mg) -200 unit tablet (15 sources)Start: 04-05-2020 End: 50-51-0371nuxg 1 tablet by mouth twice dailyCalcium Carbonate-Vitamin D3 (Oyster Shell Calcium-Vit D3) 500 mg(1,250mg) -200 unit tablet Discontinued 1 TAB PO Twice daily April 05, 2020 7:53pm July 15, 2023 4:00pmStart: 04-05-2020 End: 64-62-1492vaco 1 tablet by mouth twice dailyCalcium Carbonate-Vitamin D3 (Oyster Shell Calcium-Vit D3) 500 mg(1,250mg) -200 unit tablet Discontinued 1 TAB PO Twice daily April 05, 2020 6:53pm July 15, 2023 3:00pmcastor oil 0.788 mg/mg / [place] balsam 0.087 mg/mg topical ointment (20 sources)Standardized Chemical AllergenStart: 05-19-2019 End: 57-34-5232Suhhyj [place]-Lund Oil (Venelex) Ointment Discontinued 1 APPLIC TOPICAL Twice daily as needed for Skin Irritation 0 0 May 19, 2019 1:00am April 05, 2020 7:50pmcelecoxib 100 mg oral capsule (20 sources)Nonsteroidal Anti-inflammatory DrugStart: 52-87-0110VfhoGWZU 100 mg Cap Refills(s) 0 Start Date: 10/17/23 Status: OrderedStart: 10-10-2023 End: 77-23-4736vsup 1 capsule by mouth twice daily at mealtimeCelecoxib 100 mg capsule Discontinued 0 .ROUTE .COMPLEX 60 3 September 12, 2024 9:56am February 05, 2025 4:01pm TAKE 1 CAPSULE BY MOUTH TWICE A DAY WITH FOODStart: 07-15-2023 End: 26-89-3034gpdx 1 capsule by mouth twice dailyCelecoxib 100 mg capsule Discontinued 100 MG PO Twice daily 60 30 3 October 08, 2023 1:00pm October 10, 2023 10:17amStart: 07-15-2023 End: 47-06-9500Wdgdbtfqy Discontinued MG July 15, 2023 1:00am October 08, 2023 1:01pmStart: 97-84-0283yikm 1 capsule by mouth every twelve hoursCeleBREX 100 MG 1 capsule with food Orally Twice a day for 30 days Jan, Active CeleBREX 100 MG capsule 1 (one) time each day at the same time Activecephalexin 500 mg oral capsule (20 sources)Cephalosporin AntibacterialStart: 12-21-2024 End: 24-75-8478hsws 1 capsule by mouth twice dailyCephalexin 500 mg capsule Discontinued 500 MG PO Twice daily 10 0 December 21, 2024 12:00am January 1:20pmStart: 08-21-2024 End: 84-93-3815djwo 1 capsule by mouth twice dailyCephalexin 500 mg capsule Discontinued 500 MG PO Twice daily August 22, 2024 1:00am September 09, 2024 7:25am sinus infectionStart: 10-01-2023 End: 51-79-1211gzpe 1 capsule by mouth every twelve hoursKeflex 500 mg Cap 500 mg = 1 cap(s), Oral, q12hr, X 7 day(s), # 14 cap(s), Refills(s) 0, Pharmacy: [facility] #[id number], 175, cm, 10/01/23 5:36:00 EDT, Height/Length Dosing, 55, kg, 10/01/23 5:36:00 EDT, Weight Dosing Start Date: 10/01/23 Stop Date: 10/08/23 Status: Orderedcholecalciferol 0.025 mg oral tablet (2 sources)Vitamin D End: 02-86-6068beosuilzywoludh (Vitamin D3) 25 MCG (1000 UT) tablet 1 (one) time each day at the same time. 0 08/14/2023 Discontinueddiclofenac sodium 0.01 mg/mg topical gel (20 sources)Nonsteroidal Anti-inflammatory DrugStart: 04-05-2020 End: 81-98-3545gpfvc 2 g topically once daily as needed for painDiclofenac Sodium 1 % gel Discontinued 2 GM TOPICAL Daily as needed for shoulder pain April 05, 2020 7:53pm July 15, 2023 4:00pmStart: 04-05-2020 End: 51-60-9503drndc 2 g topically once dailyDiclofenac Sodium Discontinued 2 GM TOPICAL Daily April 05, 2020 7:53pm July 15, 2023 4:00pmStart: 05-19-2019 End: 55-98-9371iunyx 2 g topically three times daily as needed for pain Diclofenac Sodium 1 % Gel Discontinued 2 GM TOPICAL Three times daily as needed for shoulder pain 10 May 19, 2019 1:00am April 05, 2020 7:54pm Start: 05-19-2019 End: 06-86-4406isykb 2 g topically three times dailyDiclofenac Sodium Discontinued 2 GM TOPICAL Three times daily May 19, 2019 1:00am April 05, 2020 7:54pmdocusate sodium 100 mg oral capsule (20 sources)Start: 04-05-2020 End: 31-66-5297ppwb 1 capsule by mouth once dailyDocusate Sodium 100 mg capsule Discontinued 100 MG PO Daily April 05, 2020 7:53pm July 15, 2023 4:00pmStart: 04-28-2019 End: 69-92-2604nhvm 1 capsule by mouth twice dailyDocusate Sodium 100 mg Capsule Discontinued 100 MG PO Twice daily 60 0 May 19, 2019 1:00am April 05, 2020 7:54pmdoxycycline hyclate 100 mg oral tablet (20 sources)Tetracycline-class DrugStart: 09-11-2024 End: 75-14-4077mwuj 1 tablet by mouth twice dailyDoxycycline Hyclate 100 mg Tablet Discontinued 100 MG PO Twice daily 0 0 September 11, 2024 1:00amDecember 21, 2024 11:37amStart: 06-07-2024 End: 88-54-7348kwku 1 capsule by mouth twice dailyDoxycycline Hyclate 100 mg capsule Discontinued 100 MG PO Twice daily 14 7 0 June 07, 2024 1:00am July 23, 2024 4:14pmezetimibe 10 mg oral tablet (20 sources)Dietary Cholesterol Absorption InhibitorStart: 04-05-2020 End: 55-44-3067juzv 1 tablet by mouth once dailyEzetimibe 10 mg Tablet Discontinued 10 MG PO Daily April 05, 2020 12:00am July 15, 2023 4:00pmStart: 04-24-2019 End: 72-57-1318gukl 1 tablet by mouth at bedtimeEzetimibe (Zetia) 10 mg Tablet Discontinued 10 MG PO Bedtime April 24, 2019 12:00am May 20, 2019 9:50amfamotidine 20 mg oral tablet (20 sources)Histamine-2 Receptor AntagonistStart: 04-24-2019 End: 63-65-1870xtex 1 tablet by mouth once daily as neededFamotidine 20 mg Tablet Discontinued 20 MG PO Daily as needed for Indigestion 30 0 May 19, 2019 1:00am May 31, 2020 9:20amferrous sulfate 324 mg delayed release oral tablet (20 sources)Start: 04-05-2020 End: 11-74-2733juqo 1 tablet by mouth onceFerrous Sulfate 324 mg (65 mg iron) tablet,delayed release (DR/EC) Discontinued 324 MG PO every Sunday, Sunday, and Sunday April 05, 2020 7:53pm May 31, 2020 9:19amStart: 04-28-2019 End: 36-63-2333vlpf 1 tablet by mouth twice dailyFerrous Sulfate 324 mg (65 mg iron) Tablet,Delayed Release (Dr/Ec) Discontinued 324 MG PO Twice daily 60 0 May 19, 2019 1:00am April 05, 2020 7:54pmlanolin 0.157 mg/mg / menthol 0.0044 mg/mg / petrolatum 0.24 mg/mg / zinc oxide 0.206 mg/mg topical ointment (2 sources) End: 50-30-5356Dhihjnn-Zinc Oxide (Calmoseptine) 0.44-20.6 % ointment as directed Externally 0 08/14/2023 DiscontinuedLidocaine 5 % adhesive patch,medicated (10 sources)Start: 09-17-2023 End: 61-07-4640mikjj 1 dose topically once dailyLidocaine 5 % adhesive patch,medicated Discontinued 2 PATCH TOPICAL Daily September 17, 2023 1:00am October 17, 2023 8:04am leave on most painful area for up to 12 hrsStart: 09-17-2023 End: 39-75-7446hjuyt 1 dose topically once dailyLidocaine 5 % adhesive patch,medicated Discontinued 2 PATCH TOPICAL Daily September 17, 2023 12:00am October 17, 2023 7:04am leave on most painful area for up to 12 hrsLORazepam 0.5 mg oral tablet (20 sources)BenzodiazepineStart: 08-22-2024 End: 53-39-0443gypb 1 tablet by mouth once daily as needed for anxietyLorazepam 0.5 mg tablet Discontinued 0.5 MG PO Daily as needed for anxiety 0 5 0 September 11, 2024 1:29pm September 11, 2024 1:37pmStart: 03-21-2024 End: 53-68-3459gifx 1 tablet by mouth twice daily as needed for anxietyLORazepam (Ativan) 0.5 MG tablet Indications: Anxiety Take 1 tablet (0.5 mg) by mouth 2 (two) timesa day as needed for anxiety 10 tablet 08/21/2024 Activemagnesium hydroxide 80 mg/ml oral suspension (20 sources)Start: 04-28-2019 End: 92-73-7399styg 1 mL by mouth once daily as needed for constipationMagnesium Hydroxide (Milk Of Magnesia) 400 mg/5 mL Suspension Discontinued 30 ML PO Daily as neededfor Constipation 0 0 April 28, 2019 12:00am May 20, 2019 9:50ammetoprolol tartrate 25 mg oral tablet (20 sources)beta-Adrenergic BlockerStart: 05-19-2019 End: 03-53-3821ydgp 1 tablet by mouth twice dailyMetoprolol Tartrate 25 mg Tablet Discontinued 25 MG PO Twice daily 60 0 May 19, 2019 1:00am [facility]2019 7:52pmomeprazole 20 mg delayed release oral capsule (20 sources)Proton Pump InhibitorStart: 05-19-2019 End: 13-16-1689klvl 2 capsules by mouth once dailyOmeprazole 20 mg Capsule,Delayed Release(Dr/Ec) Discontinued 40 MG PO Daily 30 May 19, 20191:00am April 05, 2020 7:53pmStart: 05-19-2019 End: 69-69-6499hqvw 40 mg by mouth once dailyOmeprazole Discontinued 40 MG PO Daily May 19, 2019 1:00am April 05, 2020 7:53pmondansetron 4 mg disintegrating oral tablet (20 sources)Serotonin-3 Receptor AntagonistStart: 05-19-2019 End: 78-30-9718whbz 1 tablet by mouth every four hours as needed for nausea and vomitingOndansetron 4 mg Tablet,Disintegrating Discontinued 4 MG PO Every 4 hours as needed for Nausea And Vomiting 30 0 May 19, 2019 1:00am April 05, 2020 7:53pmoxyCODONE hydrochloride 5 mg oral tablet (20 sources)Opioid AgonistStart: 09-21-2024 End: 63-34-0958aidb 1 tablet by mouth every four hours as needed for pain Oxycodone 5 mg tablet Discontinued 5 MG PO Q4H as needed for Pain 42 7 0 September 22, 2024 October 13, 2024 1:49pm Status post total knee replacement Presence of unspecified artificial knee joint dispense 42 (forty-two) tablets diagnosis Z96.659Start: 09-11-2024 End: 72-67-5798pdlu 1 tablet by mouth every four hours as needed for pain Oxycodone 5 mg tablet Discontinued 5 MG PO Q4H as needed for Pain 42 7 0 September 11, 2024 September 11, 2024 1:29pm Status post total knee replacement Presence of unspecified artificial knee jointStart: 09-11-2024 End: 49-58-2344pqnp 1 tablet by mouth every four hours as needed for pain Oxycodone 5 mg tablet Discontinued 5 MG PO Q4H as needed for Pain 42 7 0 September 11, 2024 September 11, 2024 1:37pm Status post total knee replacement Presence of unspecified artificial knee jointStart: 09-11-2024 End: 82-16-8995haba 1 tablet by mouth every four hours as needed for pain Oxycodone 5 mg tablet Discontinued 5 MG PO Q4H as needed for Pain 42 7 0 September 11, 2024 September 22, 2024 1:25pm Status post total knee replacement Presence of unspecified artificial knee jointStart: 05-19-2019 End: 21-37-2616fxnn 1 tablet by mouth every four hours as needed for pain Oxycodone 5 mg Tablet Discontinued 5 MG PO Every 4 hours as needed for Pain 40 7 0 May 19, 2019 April 05, 2020 7:53pm Postoperative pain Closed fracture of neck of left femur Other acute postprocedural painStart: 05-19-2019 End: 55-31-3790nwkg 2 tablets by mouth every four hours as needed for pain Oxycodone 5 mg Tablet Discontinued 10 MG PO Every 4 hours as needed for Pain 0 7 0 May 19, 2019 April 05, 2020 7:53pm Postoperative pain Closed fracture of neck of left femur Other acute postprocedural painStart: 05-19-2019 End: 15-11-9464jhye 10 mg by mouth every four hoursOxycodone Discontinued 10 MG PO Every 4 hours 0 7 May 19, 2019 April 05, 2020 7:53pmpolyethylene glycol 3350 81977 mg powder for oral solution (20 sources)Osmotic LaxativeStart: 05-19-2019 End: 76-26-3183Bjtrodirmupe Glycol 3350 (Miralax) 17 gram Powder In Packet Discontinued 17 GM PO Daily as needed for Constipation 30 0 May 19, 2019 1:00am July 15, 2023 4:00pmrivaroxaban 15 mg oral tablet (20 sources)Factor Xa InhibitorStart: 05-19-2019 End: 32-32-8987zewj 1 tablet by mouth twice daily at mealtimeRivaroxaban (Xarelto) 15 mg tablet Discontinued 15 MG PO Twice daily 42 21 0 April 05, 2020 12:00am May 31, 2020 9:19am must administer with a meal/food sennosides, fci 8.6 mg oral tablet (20 sources)Start: 05-19-2019 End: 91-66-8540cmbb 2 tablets by mouth once daily as neededSennosides (Senna Lax) 8.6 mg Tablet Discontinued 2 TAB PO DAILY@12 as needed for If no BM in 2 days 60 0 May 19, 2019 1:00am April 05, 2020 7:54pmtriamcinolone acetonide 40 mg/ml injectable suspension (20 sources)CorticosteroidStart: 56-67-1643Qqooeho-40 Jun, 40 mgStart: 75-90-8548Ujznyit -40 mg Sep, 40 mgStart: 67-39-8022Dvzkwbt -40 mg Jun, 40 mgStart: 19-23-5155Nmqphgy -40 mg Mar, 40 mgStart: 56-76-7701Snitkxo -40 mg Oct, 40 mgStart: 82-31-0594Cvdtjps -40 mg Jul, 40 mgStart: 36-82-7832Egwtxpg -40 mg Apr, 40 mgStart: 97-68-3055Ecssvdl -40 mg Jan, 40 mgStart: 81-17-5698Idzthfg -40 mg November, 40 mgVitamin D 1000 intl units Tab (1 source)Start: 95-19-8850nivp 1 tablet by mouth once dailyVitamin D 1000 intl units Tab 1,000 International_Unit = 1 tab(s), Oral, Daily, # 30 tab(s), Refills (s) 0 Start Date: 06/18/20 Status: Ordered Problems Active Problems Problem ClassificationProblemDateDocumented DateEpisodic/Chronic Administrative/social admission (20 sources)Other reduced mobility; Translations: [Impaired mobility and activities of daily living]20-84-2099OjmdvkrdWnphuxg on above:Problem List clean-up per request of Phys. EHR CmteAnxiety disorders (20 sources)Anxiety; Translations: [Anxiety disorder, unspecified]Onset: 280563-57-3546VzmfrihEmjnbsm ulcer of skin (20 sources)Non-pressure chronic ulcer of other part of right foot limited to breakdown of skin; Translations: [Ulcer of other part of foot]Onset: 12-07-2022 80-60-0024FxnsleoVuskeqskgs and other anemia (20 sources)Anemia; Translations: [Anemia, unspecified]04-36-7642KixzgpnmWwvteaa on above:Problem List clean-up per request of Phys. EHR CmteDeficiency and other anemia (2 sources)Nutritional anemia; Translations: [Folate deficiency anemia, unspecified]95-00-4554FofehlueFgirqcdq mellitus with complications (20 sources)Type 2 diabetes mellitus with diabetic polyneuropathy; Translations: [Type 2 diabetes mellitus]Onset: 97-88-8052HktfmxcNryfktga mellitus without complication (20 sources)Diabetes mellitus; Translations: [Type 2 diabetes mellitus without complications]93-38-4925NucqhrfOzomtwsl of white blood cells (1 source)Lymphocytopenia; Translations: [Lymphocytopenia]Onset: 10-24-2017 ChronicDisorders of lipid metabolism (20 sources)Pure hypercholesterolemia, unspecified; Translations: [Hyperlipidemia]Onset: 618375-43-9951UikmlvbRirhbrfdqm disorders (20 sources)Gastro-esophageal reflux disease without esophagitis; Translations: [Gastroesophageal reflux disease]Onset: 532941-75-0646UxgjkmnUokojfxhg hypertension (20 sources)Essential (primary) hypertension; Translations: [Hypertensive disorder]Onset: 598061-67-0985AdmimuvUtbwxurv of lower limb (1 source)Displaced fracture of right tibial tuberosity, initial encounter for closed fracture; Translations:[Displaced fracture of right tibial tuberosity, initial encounter for closed fracture]Onset: 28-51-7333ScxecibiXqvegwca of neck of femur (hip) (20 sources)Fracture of unspecified part of neck of left femur, subsequent encounter for closed fracture with routine healing; Translations: [Subcapital fracture of neck of femur]Onset: 04-06-2021 Resolved: 08-90-8141SvrmqbpvZffmlja on above:Problem List clean-up per request of Phys. EHR CmteImmunizations and screening for infectious disease (4 sources)Needs influenza immunization; Translations: [Encounter for immunization]52-02-1629FsaowfcdMgyzgey and fatigue (20 sources)Asthenia; Translations: [Weakness]12-06-4404WdddnxcfIipn disorders (20 sources)Reactive depression (situational); Translations: [Major depressive disorder, single episode, unspecified]Onset: 547978-13-3104LbwevnwYtkjnb and vomiting (20 sources)Nausea and vomiting; Translations: [Nausea with vomiting, unspecified]33-40-2428WiualcedFepuszz on above:Problem List clean-up per request of Phys. EHR CmteNonspecific chest pain (20 sources)Atypical chest pain; Translations: [Other chest pain]03-10-2024 EpisodicOpen wounds of head; neck; and trunk (20 sources)Tear of skin; Translations: [Skin tear]85-45-3103UfvklqxmZerjuaq on above:Problem List clean-up per request of Phys. EHR CmteOsteoarthritis (20 sources)Osteoarthritis of right knee joint; Translations: [Unilateral primary osteoarthritis, right knee]Onset: 04-06-2021 Resolved: 65-94-5567YgizxfvWfvvtbdfqaaf (20 sources)Osteoporosis; Translations: [Age-related osteoporosis without current pathological fracture]Onset: 518062-34-4578LmrkuorGyuag aftercare (1 source)Aftercare following joint replacement surgery; Translations: [Aftercare following joint replacementsurgery]Onset: 11-94-9491QlipwqsWpkiw circulatory disease (20 sources)Raynaud's disease; Translations: [Raynaud's syndrome without gangrene]Onset: 146945-79-3182VxgjegiXbzlj connective tissue disease (16 sources)History of total knee arthroplasty; Translations: [Presence of unspecified artificial knee joint]41-17-6009QhyqnfrXntqg connective tissue disease (3 sources)Presence of unspecified artificial knee joint; Translations: [Knee joint replacement]46-11-6541QswmxfuMiegb connective tissue disease (8 sources)Presence of right artificial knee joint; Translations: [Knee joint replacement]73-37-6053XpbpdtjNhpvv connective tissue disease (20 sources)Pain in left lower limb; Translations: [Pain in left leg]05-31-2020 EpisodicComment on above:Problem List clean-up per request of Phys. EHR Cmte Other connective tissue disease (20 sources)Musculoskeletal pain; Translations: [Myalgia, other site]07-23-2020 EpisodicComment on above:Problem List clean-up per request of Phys. EHR Cmte Other diseases of bladder and urethra (20 sources)Overactive bladder; Translations: [Overactive bladder]Onset: 045999-40-6967AonjcouSxxnx ear and sense organ disorders (1 source)Impacted cerumen; Translations: [Impacted cerumen, left ear]12-21-2024 EpisodicOther ear and sense organ disorders (1 source)Impacted cerumen, left ear; Translations: [Impacted cerumen]12-21-2024 EpisodicOther ear and sense organ disorders (11 sources)Impacted cerumen in left ear; Translations: [Impacted cerumen, left ear]56-30-9885JntartamTepgc gastrointestinal disorders (20 sources)Constipation; Translations: [Constipation, unspecified]04-29-2019 EpisodicComment on above:Problem List clean-up per request of Phys. EHR Cmte Other injuries and conditions due to external causes (20 sources)History of fall; Translations: [History of falling]04-29-2019 EpisodicComment on above:Problem List clean-up per request of Phys. EHR Cmte Other injuries and conditions due to external causes (13 sources)Fracture of bone; Translations: [Other injury of unspecified body region, initial encounter]48-81-0503FzqgkzbtDucuj injuries and conditions due to external causes (1 source)Other injury of unspecified body region, initial encounter; Translations: [Other injury of unspecified body region, initial encounter]Onset: 41-98-7016GfzlziubXsgol lower respiratory disease (17 sources)Acute lower respiratory tract infection; Translations: [Unspecified acute lower respiratory infection]40-13-5750NvklscltCsxcr lower respiratory disease (5 sources)Unspecified acute lower respiratory infection; Translations: [Other diseases of respiratory system,not elsewhere classified]53-15-3514LfgsjiqvMhhhc nervous system disorders (20 sources)Chronic pain syndrome; Translations: [Chronic pain syndrome]Onset: 491254-49-6091QbukvjgFwqpv nervous system disorders (20 sources)Postoperative pain ; Translations: [Other acute postprocedural pain] 13-15-5702BngmlnonRkfdicp on above:Problem List clean-up per request of Phys. EHR CmteOther non-traumatic joint disorders (7 sources)Pain in left knee; Translations: [Pain in left knee M25.562]Onset: 04-06-2021 Resolved: 75-23-7036DfroykepNlwcf non-traumatic joint disorders (1 source)Shoulder pain; Translations: [Pain in right shoulder]05-05-2019 EpisodicOther non-traumatic joint disorders (20 sources)Hip pain; Translations: [Pain in left hip]40-72-9081IzytesylIttujia on above:Problem List clean-up per request of Phys. EHR CmteOther non-traumatic joint disorders (20 sources)Pain in right shoulder; Translations: [Right shoulder pain]Episodic Comment on above:Problem List clean-up per request of Phys. EHR CmteOther screening for suspected conditions (not mental disorders or infectious disease) (20 sources)Encounter for screening mammogram for malignant neoplasm of breast; Translations: [Protein level - finding]Onset: 94-40-2245QdxartleIbhkrwy on above:Problem List clean-up per request of Phys. EHR CmteOther upper respiratory infections (20 sources)Acute upper respiratory infection; Translations: [Acute upper respiratory infection, unspecified]Onset: 920817-19-3516Iddezzxs Pathological fracture (20 sources)Pathological fracture of femur due to osteoporosis; Translations: [Age-related osteoporosis with current pathological fracture, left femur, initial encounter for fracture]64-76-9007RzhzuvhpWovlayp on above:Problem List clean-up per request of Phys. EHR CmtePhlebitis; thrombophlebitis and thromboembolism (20 sources)Acute deep vein thrombosis of lower limb; Translations: [Acute embolism and thrombosis of unspecified deep veins of unspecified lower extremity]34-25-7521UhbbicenBasnyak on above:Problem List clean-up per request of Phys. EHR CmteResidual codes; unclassified (1 source)Family history of malignant neoplasm of breast; Translations: [FAMILY HX MALIG NEOPLASM OF BREAST]Onset: 90-52-7263XlnhhrvpKbooocio codes; unclassified (20 sources)Patient encounter status; Translations: [Encounter for prophylactic measures, unspecified]19-35-2128VcqpmafpNvtnfjc on above:Problem List clean-up per request of Phys. EHR CmteUnclassified (1 source)Unknown / UNK(Unknown)Onset: 60-24-1753Afsfjkv tract infections (14 sources)Urinary tract infectious disease; Translations: [Urinary tract infection, site not specified]Onset: 13-46-8141Drwfuynq Past or Other Problems Problem ClassificationProblemDateDocumented DateEpisodic/ChronicChronic obstructive pulmonary disease and bronchiectasis (14 sources)Bronchitis; Translations: [Bronchitis, not specified as acute or chronic]Onset: 200244-34-4505VzhcvughXjpcaqmlnrlkl symptoms and ill- defined conditions (20 sources)History of urinary tract infection; Translations: [Personal history of urinary (tract) infections]Onset: 211462-90-6352AybezrnfGigu disorders (20 sources)Mood disordersOnset: 211053-71-9414Iypgwua (20 sources)Onychomycosis; Translations: [Tinea unguium]Onset: 12-07-2022 04-72-0785EtrpkgstUmcwk acquired deformities (20 sources)Leg length inequality; Translations: [Unequal limb length (acquired), unspecified site]Onset: 276225-88-7294KijkidahHkwsi acquired deformities (5 sources)Unequal limb length (acquired), unspecified site; Translations: [Unequal leg length (acquired)]Onset: 417501-43-2017PgzsnihyRymex aftercare (20 sources)Post-discharge follow-up; Translations: [Encounter for follow-up examination after completed treatment for conditions other than malignant neoplasm]Onset: 939250-62-4002JqesvhvlAuxlq non-traumatic joint disorders (20 sources)Pain in right knee; Translations: [Pain in joint, lower leg]Onset: 04-06-2021 Resolved: 06-72-6567RywdokkmDdcim skin disorders (20 sources)Callosity; Translations: [Corns and callosities]Onset: 12-07-2022 09-75-0748EcplhqcsZfbrjdlr codes; unclassified (2 sources)Other specified postprocedural states; Translations: [Other specified postprocedural states Z98.890]Onset: 04-06-2021 Resolved: 95-11-5301PawszrluGggvkqkb codes; unclassified (20 sources)Edema, generalized; Translations: [Generalized edema]Onset: 820459-40-3022WkhyizgbKqntrwlcnzb; intervertebral disc disorders; other back problems (1 source)Cervicalgia; Translations: [Cervicalgia]Onset: 56-65-8347Dcthwrsu Unclassified (1 source)Lumbar pain M54.50Onset: 06-29-2021 Resolved: 06-29-2021 Results Test NameValueInterpretationReference RangeFacilityLaboratory - Hematology and Cell countson 22-01-5617BjO5j (Bld) [Mass fraction]5.0 %NOMS HealthcareNo Panel Informationon 70-12-9677WYYV HealthcareMM TOMOSYNTHESIS DIAGNOSTIC RTon 10-88-9986[place]ii[place] [address] Mammography Report Signed Patient: NATA PETE MR#: [id number] : 1945 Acct:[id number] Age/Sex: 80 / F ADM Date: 04/21/25 Loc: MAMMO Attending Dr: AISHA RAGLAND Ordering Physician: AISHA RAGLAND Results: Date of Service: 04/21/25 Follow Up: Procedure(s): MM tomosynthesis diagnostic RT Accession Number(s): [id number] cc: AISHA RAGLAND Patient Name: NATA PETE MR#: [id number] : 1945 Exam Date: 04/21/2025 Ordering Doctor: AISHA RAGLAND RADIOLOGY REPORT PROCEDURE: MM TOMOSYNTHESIS DIAGNOSTIC RT COMPARISON: MM SCREENING MAMMO BI, 03/26/2025. MM TOMOSYNTHESIS SCREENING BI, 05/10/2023. MG MAMM SCREEN 3D LISA CAD, 02/23/2022. MG MAMM SCREEN 3D LISA CAD, 11/04/2020. INDICATIONS: Abnormal Mammogram Right Breast Calculator Name NCI Breast Cancer Risk Assessment Tool 5 Year Breast Cancer Risk 1.50% Lifetime Breast Cancer Risk 2.80% Personal Breast Cancer No Personal Ovarian Cancer No Treatments None Family Cancers Aunt-paternal with breast cancer at age 70. LOCATION: [facility] BREAST COMPOSITION: There are scattered areas of fibroglandular density. FINDINGS: DIAGNOSTIC CATEGORY 1--NEGATIVE. LEFT BREAST: Previously identified focal asymmetry compresses out on the spot compression view suggests overlapping stroma. No abnormality is seen on the true lateral view. RECOMMENDATIONS: ROUTINE MAMMOGRAM AND CLINICAL EVALUATION IN 12 MONTHS. Dictated by: Dedrick Arroyo DO on 04/21/2025 at 12:06 Approved by: Dedrick Arroyo DO on 04/21/2025 at 12:08 Dictated By: Dedrick Arroyo M.D. Signed By: 04/21/251207 DD/ 07 TD/TT: Anime Artist:TBHRadiology, Radiologist, MD - 04/21/2025 [place] [address] Mammography Report Signed Patient: NATA PETE MR#: [id number] : 1945 Acct:[id number] Age/Sex: 80 / F ADM Date: 04/21/25 Loc: MAMMO Attending Dr: AISHA RAGLAND Ordering Physician: AISHA RAGLAND Results: Date of Service: 04/21/25 Follow Up: Procedure(s): MM tomosynthesis diagnostic RT Accession Number(s): [id number] cc: AISHA RAGLAND Patient Name: NATA PETE MR#: [id number] : 1945 Exam Date: 04/21/2025 Ordering Doctor: AISHA RAGLAND RADIOLOGY REPORT PROCEDURE: MM TOMOSYNTHESIS DIAGNOSTIC RT COMPARISON: MM SCREENING MAMMO BI, 03/26/2025. MM TOMOSYNTHESIS SCREENING BI, 05/10/2023. MG MAMM SCREEN 3D LISA CAD, 02/23/2022. MG MAMM SCREEN 3D LISA CAD, 11/04/2020. INDICATIONS: Abnormal Mammogram Right Breast Calculator Name NCI Breast Cancer Risk Assessment Tool 5 Year Breast Cancer Risk 1.50% Lifetime Breast Cancer Risk 2.80% Personal Breast Cancer No Personal Ovarian Cancer No Treatments None Family Cancers Aunt-paternal with breast cancer at age 70. LOCATION: [facility] BREAST COMPOSITION: There are scattered areas of fibroglandular density. FINDINGS: DIAGNOSTIC CATEGORY 1--NEGATIVE. LEFT BREAST: Previously identified focal asymmetry compresses out on the spot compression view suggests overlapping stroma. No abnormality is seen on the true lateral view. RECOMMENDATIONS: ROUTINE MAMMOGRAM AND CLINICAL EVALUATION IN 12 MONTHS. Dictated by: Dedrick Arroyo DO on 04/21/2025 at 12:06 Approved by: Dedrick Arroyo DO on 04/21/2025 at 12:08 Dictated By: Dedrick Arroyo M.D. Signed By: 04/21/251207 DD/ 07 TD/TT: Anime Artist: ABBEY WinklerRadiology Study observation (narrative)ABBEY Winkler TOMOSYNTHESIS DIAGNOSTIC RTOrdered By: Radiologist Radiology on 88-91-5117[facility] Work Phone: X-ray reportOrdered By: Alvin Newby on 04-15-2025 [facility] reportDE[facility] [address] [place] [address] XRay Report Signed Patient: Nata Pete MR#: [id number] : 1945 Acct:[id number] Age/Sex: 80 / F ADM Date: 5 Loc: [facility] Room: Type: REG CLI Attending Dr: João [...] Newby M.D. 04/15/2025 8:56 PM Dictation Location: [place] [address] Transcribed By: [facility] 04/15/252055 Dictated By: Alvin Newby DO 04/15/252053 Signed By: 04/15/252055 [facility] HospitalXR knee RT 3V - NOT FOR ER USEon 11-34-8227NP knee RT 3V - NOT [facility] [address] [place] [address] XRay Report Signed Patient: Nata Pete MR#: [id number] : 1945 Acct:[id number] Age/Sex: 80 / F ADM Date: 04/15/25 Loc: [facility] Room: Type: REG CLI Attending Dr: João [...] Newby M.D. 04/15/2025 8:56 PM Dictation Location: [facility]--20 Transcribed By: [facility] 04/15/252055 Dictated By: Alvin Newby DO 04/15/252053 Signed By: 04/15/252055[facility] Breast - bilateral Screening on [id number] [address] Mammography Report Signed Patient: NATA PETE MR#: [id number] : 1945 Acct:[id number] Age/Sex: 79 / F ADM Date: 03/26/25 Loc: MAMMO Attending Dr: AISHA RAGLAND Ordering Physician: AISHA RAGLAND Results: Date of Service: 03/26/25 Follow Up: Procedure(s): MM screening mammo BI Accession Number(s): [id number] cc: AISHA RAGLAND Patient Name: NATA PETE MR#: [id number] : 1945 Exam Date: 03/26/2025 Ordering Doctor: [...] at age 72. LOCATION: [facility] BREAST COMPOSITION: There are scattered areas [...] Signed By: 03/26/25 155 DD/ 54 TD/TT: Anime Artist:TBHRadiology, Radiologist, MD - 03/26/2025 [place] [address] Mammography Report Signed Patient: NATA PETE MR#: [id number] : 1945 Acct:[id number] Age/Sex: 79 / F ADM Date: 03/26/25 Loc: MAMMO Attending Dr: AISHA RAGLAND Ordering Physician: AISHA RAGLAND Results: Date of Service: 03/26/25 Follow Up: Procedure(s): MM screening mammo BI Accession Number(s): [id number] cc: AISHA RAGLAND Patient Name: NATA PETE MR#: [id number] : 1945 Exam Date: 03/26/2025 Ordering Doctor: [...] at age 72. LOCATION: [facility] BREAST COMPOSITION: There are scattered areas [...] Signed By: 03/26/25 1556 DD/ 155 TD/TT: Anime Artist: ABBEY WinklerRadiology Study observation (narrative)[facility] HOSPITALLily Winkler Breast - bilateral ScreeningOrdered By: Radiologist Radiology on 68-85-3667RMVS [employer] Work Phone: X-ray reportOrdered By: Dedrick Arroyo on 03-18-2025 [facility] [address] [place] [address] XRay Report Signed Patient: Nata Pete MR#: [id number] : 1945 Acct:[id number] Age/Sex: 79 / F ADM Date: 5 Loc: [facility] Room: Type: [facility] Attending Dr: João Soto DO Copies to: [...] Jr., D.OKiara 03/18/2025 4:49 PM Dictation Location: RADIO-PC-22 Transcribed By: HIMA 03/18/251648 Dictated By: Dedrick Arroyo Jr, DO 03/18/251647 Signed By: 03/18/[address] [facility] [address] [facility]XR knee RT 3V - NOT FOR ER USEon 89-63-3313TP knee RT 3V - [facility] [address] [place] [address] XRay Report Signed Patient: Nata Pete MR#: [id number] : 1945 Acct:[id number] Age/Sex: 79 / F ADM Date: 03/18/25 Loc: [facility] Room: Type: [facility] Attending Dr: João Soto DO Copies to: [...] Dedrick Arroyo Jr, DO 03/18/251647 Signed By: 03/18/[address] [place] [address] Physician GroupUrine Cultureon 03-04-2025 Bacteria identified Cx Nom (U)ORGANISM: Escherichia coli (O:ESCCOL) Mystic Count >100,000 Aerobic MI Charge (NMIC56) SUSCEPTIBILITY [...] <4 Tigecycline S <2 Tobramycin S <2 Trimethoprim/Sulfamethoxazole S <0.5 S = SUSCEPTIBLE I = [...] RESISTANT TO ALL B-LACTAM DRUGS. PERFORMED BY: [address] [address] PATHOLOGIST RESEARCH METHODOLOGIST JACQUELINE ENRIQUEZ M.D.[facility] Physician GroupComment on above: Performed By: #### GLULS #### Point of Care testing ,Urine cultureOrdered By: Alvin Benito on 74-84-3888Vkndbpdw identified Cx Nom (U)Escherichia coliAbnormSelect Medical Cleveland Clinic Rehabilitation Hospital, AvonCB W Auto Differential panel (Bld)on 36-79-2086Lkltxjmll (Bld) [#/Vol]0 10*3/uLNOMS HealthcareBasophils/100 WBC (Bld)1 %Not Estab.NOMS HealthcareEosinophils (Bld) [#/Vol]0.2 10*3/uLNOMS HealthcareEosinophils/100 WBC (Bld)4 %Not Estab.NOMS HealthcareErythrocyte distribution width (RBC) [Ratio]12.4 %11.7 - 15.4 %NOMS HealthcareHematocrit (Bld) [Volume fraction]36.3 %34.0 - 46.6 %[facility] Hemoglobin (Bld) [Mass/Vol]11.4 g/dL11.1 - 15.9 g/dLNOMS HealthcareImmature granulocytes (Bld) [#/Vol]0 10*3/uLNOMS HealthcareImmature granulocytes/100 WBC (Bld)0 %Not Estab.NOMS HealthcareLymphocytes (Bld) [#/Vol]0.7 10*3/uLNOMS HealthcareLymphocytes/100 WBC (Bld)17 %Not Estab.[facility] HealthcareMCH (RBC) [Entitic mass]27.9 pg26.6 - 33.0 pgNOCO HealthcareMCHC (RBC) [Mass/Vol]31.4 g/dL Low31.5 - 35.7 g/dLNOCO HealthcareMCV (RBC) [Entitic vol]89 fL79 - 97 fLNOCO HealthcareMonocytes (Bld) [#/Vol]0.5 10*3/uLNOMS HealthcareMonocytes/100 WBC (Bld)13 %Not Estab.NOMS HealthcareNeutrophils (Bld) [#/Vol]2.6 10*3/uLNOMS HealthcareNeutrophils/100 WBC (Bld)65 %Not Estab.NOM HealthcarePlatelets (Bld) [#/Vol]213 10*3/uLNOMS HealthcareRBC (Bld) [#/Vol]4.08 10*6/uLNOMS HealthcareWBC (Bld) [#/Vol]4.1 10*3/uLNOMS HealthcareLaboratory - Chemistry and Chemistry - challengeon 01-10-8081Cbexpxe [Mass/Vol]4.1 g/dL3.8 - 4.8 g/dLNOCO HealthcareALP [Catalytic activity/Vol]69 U/LNOMS HealthcareALT [Catalytic activity/Vol]14 U/L NOMS HealthcareAST [Catalytic activity/Vol]19 U/LNOMS HealthcareBilirubin [Mass/Vol]0.3 mg/dL0.0 - 1.2 mg/dLNOMS HealthcareCalcium [Mass/Vol]9.6 mg/dL8.7 - 10.3 mg/dLNOMS HealthcareChloride [Moles/Vol]98 mmol/L96 - 106 mmol/LNOMS HealthcareCO2 [Moles/Vol]23 mmol/L20 - 29 mmol/LNOMS HealthcareCreatinine [Mass/Vol]0.52 mg/dLLow0.57 - 1.00 mg/dLNOCO HealthcareGFR/1.73 sq M.predicted among non-blacks MDRD (S/P/Bld) [Vol rate/Area]96 mL/min/{1.73_m2}59 - PINF mL/min/1.73NOCO HealthcareGlobulin (S) [Mass/Vol]1.5 g/dL1.5 - 4.5 g/dLNOCO HealthcareGlucose [Mass/Vol]106 mg/iNAaam72 - 99 mg/dLGUNNISON VALLEY HOSPITAL HealthcarePotassium [Moles/Vol]4.5 mmol/L3.5 - 5.2 mmol/LNOMS HealthcareProtein [Mass/Vol]5.6 g/dL Low6.0 - 8.5 g/dLNOCO HealthcareSodium [Moles/Vol]135 mmol/L134 - 144 mmol/LNOMS HealthcareUrea nitrogen [Mass/Vol]25 mg/dL8 - 27 mg/dLNOCameron Regional Medical CenterUrea nitrogen/Creatinine [Mass ratio]48 mg/puClmn67 - 28[facility] HospitalNo Panel Informationon 83-67-4021Wgrmvjqjpkauce and review of laboratory resultsAbnormal [facility] HospitalPerformed at: [address] [id number] Intensive Care Anaesthetist: Raffi Diallo PhD, Phone: [phone] River State Hospital Laboratory - Hematology and Cell countson 48-18-7861AoR3n (Bld) [Mass fraction] 5.3 %[facility] HospitalNo Panel Informationon 73-11-7847DBUNNorth Kansas City HospitalLaboratory - Chemistry and Chemistry - challengeon 42-02-6116Prohdogcr Ql (U)Negative [address] HospitalGlucose (U) [Mass/Vol]NegativeWilson Street HospitalKetones Ql (U)NegativeWilson Street HospitalpH (U)7.5 [pH][facility] Hospitalpecific gravity (U) [Rel density] 1.020[address] HospitalUrobilinogen (U) [Mass/Vol]1.0 mg/dL [address] HospitalLaboratory - Specimen informationon 12-21-2024 Appearance (U)cloudyWilson [address] HospitalColor (U)yellowWilson Street HospitalLaboratory - Urinalysison 44-51-7763Mjwolfcvx esterase Test strip Ql (U)smallWilson Street HospitalNitrite Ql (U)Negative [address] HospitalProtein Ql (U)30[address] HospitalNo Panel Informationon 62-81-1865Dqulq Occult Bloodtrace-intactWilson Street HospitalUrine Cultureon 06-63-1431Idwdggun identified Cx Nom (U) <10,000 colonies/ml mixed bacterial skin contaminants including mixed gram negative bacilli - 2 Days PERFORMED BY: [facility] [address] [place] [address] PATHOLOGIST RESEARCH METHODOLOGIST JACQUELINE ENRIQUEZ M.D.NormalThe [facility] Physician GroupComment on above: Performed By: #### CUU #### [facility] [address] [place] [address] USAUrine cultureOrdered By: Amanda Roberts on 12-21-2024 Bacteria identified Cx Nom (U)bacilli - [address] ALL CBC WITH AUTO DIFFon 42-30-8751Vpmhecpwhvf distribution width (RBC) [Ratio] 13.6 %11.0 - 15.0 %NOMS HealthcareHematocrit (Bld) [Volume fraction]33.1 %Low 36.0 - 48.0 %NOMS HealthcareHemoglobin (Bld) [Mass/Vol]10.6 g/dLLow12.0 - 16.0 g/dLGUNNISON VALLEY HOSPITAL HealthcareInterpretation and review of laboratory resultsAbnormalLake Regional Health SystemH (RBC) [Entitic mass]29.4 pg26.7 - 34.0 pgLake Regional Health SystemHC (RBC) [Mass/Vol]32 g/dL29.9 - 35.2 g/dLLake Regional Health SystemV (RBC) [Entitic vol]91.9 fL 81.0 - 99.0 fLNorth Kansas City HospitalPlatelet mean volume (Bld) [Entitic vol]10.5 fL9.5 - 13.5 fLNOMS HealthcareTBH CGM004TSIW HealthcareTBH RBC3.6LowNOMS HealthcareTBH WBC3.8LowNOMS HealthcareCLINISYNCNOMS HealthcareBasic Metabolic Panelon 41-01-1953Omlot gap [Moles/Vol]7.1 mmol/LNormal6.0-15.0The [facility] Physician GroupComment on above:Performed By: #### BMP, CBC #### [facility] [address] [place] [address] USACalcium [Mass/Vol]8.3 mg/dLLow8.6-10.3The [facility] Physician GroupComment on above:Performed By: #### BMP, CBC #### [facility] [address] [place] [address] USAChloride [Moles/Vol]102 mmol/EIfcnpw11-140Aqu [facility] Physician GroupComment on above:Performed By: #### BMP, CBC #### [facility] [address] [place] [address] USACO2 [Moles/Vol]27.0 mmol/FAvlxcr69.0-31.0The [facility] Physician GroupComment on above:Performed By: #### BMP, CBC #### [facility] [address] [place] [address] USACreatinine [Mass/Vol]0.48 mg/dLLow0.60-1.20The [facility] Physician GroupComment on above:Performed By: #### BMP, CBC #### [facility] [address] [place] [address] USACreatinine Clr Calc Lymkpeqz38.10NormalThe [facility] Physician GroupComment on above:Result Comment: PERFORMED BY: [place] [address] PATHOLOGIST RESEARCH METHODOLOGIST MELANIE ALMAZAN M.D.Performed By: #### BMP, CBC #### [place] [address] USAGFR/1.73 sq M.predicted MDRD (S/P/Bld) [Vol rate/Area] mL/min/{1.73_m2}NormalThe [facility] Physician GroupComment on above:Performed By: #### BMP, CBC #### [facility] [address] [place] [address] USAGlucose [Mass/Vol]91 mg/vIKyvnrm28-859Zse [facility] Physician GroupComment on above:Result Comment: Random Glucose Reference Range is dependent on time and content of last meal. Glucose of more than 200 mg/dL in a nonstressed, ambulatory subject supports the diagnosis of Diabetes Mellitus. ADA recommended reference rangePerformed By: #### BMP, CBC #### [facility] [address] [place] [address] USAPotassium [Moles/Vol]4.1 mmol/LNormal3.5-5.1The [facility] Physician GroupComment on above:Performed By: #### BMP, CBC #### [facility] [address] [place] [address] USASodium [Moles/Vol]132 mmol/TCjf073-106Gco [facility] Physician GroupComment on above:Performed By: #### BMP, CBC #### [facility] [address] [place] [address] USAUrea nitrogen [Mass/Vol]19 mg/dLNormal7-25The [facility] Physician GroupComment on above:Performed By: #### BMP, CBC #### [facility] [address] [place] [address] USABasophils Auto (Bld) [#/Vol]Ordered By: João Soto on 70-48-8891Egcfwyzfz (Bld) [#/Vol]Automated basophil count0.0-0.2FZanesville City HospitalBasophils/100 WBC Auto (Bld)Ordered By: João Soto on 08-85-9991Tmtqxpkro/100 WBC (Bld)Automated basophil %.[address] HospitalCalcium [Mass/volume] in Serum or PlasmaOrdered By: João Soto on 92-71-0276Zuhtixn [Mass/Vol]Calcium [Mass/volume] in Serum or PlasmaLow8.6-10.[address] HospitalCarbon dioxide, total [Moles/volume] in Serum or PlasmaOrdered By: João Soto on 32-90-1636JA8 [Moles/Vol]Carbon dioxide, total [Moles/volume] in Serum or Adsbxs14.0-31.0[address] HospitalChloride [Moles/volume] in Serum or PlasmaOrdered By: João Soto on 52-62-7582Vpyvmitk [Moles/Vol]Chloride [Moles/volume] in Serum or Tksjsm28-[address] HospitalComplete Blood Count Auto Diffon 09-11-2024 Basophils (Bld) [#/Vol]0.0 10*3/uLNormal0.0-0.2The [facility] Group Comment on above:Result Comment: PERFORMED BY: [place] [address] PATHOLOGIST RESEARCH METHODOLOGIST MELANIE ALMAZAN M.D.Performed By: #### BMP, CBC #### [place] [address] USABasophils/100 WBC (Bld)0.6 %Normal.The [facility] Physician GroupComment on above:Performed By: #### BMP, CBC #### [facility] [address] [place] [address] USAEosinophils (Bld) [#/Vol]0.3 10*3/uLNormal0.0-0.45The [facility] Physician GroupComment on above:Performed By: #### BMP, CBC #### [place] [address] USAEosinophils/100 WBC (Bld)4.6 %Normal.The [facility] Physician GroupComment on above:Performed By: #### BMP, CBC #### [place] [address] USAErythrocyte distribution width (RBC) [Ratio]13.8 %Normal 11.9-15.3The [facility] Physician GroupComment on above:Performed By: #### BMP, CBC #### [place] [address] USAHematocrit (Bld) [Volume fraction]29.7 %Low34.0-46.4The [facility] Physician GroupComment on above:Performed By: #### BMP, CBC #### [facility] [address] [place] [address] USAHemoglobin (Bld) [Mass/Vol]10.2 g/dLLow11.8-15.4The [facility] Physician GroupComment on above:Performed By: #### BMP, CBC #### [facility] [address] [place] [address] USALymphocytes (Bld) [#/Vol]0.9 10*3/uLLow1.00-4.8The [facility] Physician GroupComment on above:Performed By: #### BMP, CBC #### [facility] [address] [place] [address] USALymphocytes/100 WBC (Bld)16.6 %Normal.The [facility] Physician GroupComment on above:Performed By: #### BMP, CBC #### [facility] [address] [place] [address] USAMCH (RBC) [Entitic mass]29.6 bzJybopk36.7-34.3The [facility] Physician GroupComment on above:Performed By: #### BMP, CBC #### [place] [address] USAMCV (RBC) [Entitic vol]86.4 bACshant74-068Ash [facility] Physician GroupComment on above:Performed By: #### BMP, CBC #### [facility] [address] [place] [address] USAMean Corpuscular HGB Conc34.3 g/oWTmgqvt93.0-35.0The [facility] Physician GroupComment on above:Performed By: #### BMP, CBC #### [facility] [address] [place] [address] USAMonocytes (Bld) [#/Vol]0.6 10*3/uLNormal0.0-0.8The [facility] Physician GroupComment on above:Performed By: #### BMP, CBC #### [facility] [address] [place] [address] USAMonocytes/100 WBC (Bld)11.4 %Normal.The [facility] Physician GroupComment on above:Performed By: #### BMP, CBC #### [facility] [address] [place] [address] USANeutrophils (Bld) [#/Vol]3.7 10*3/uLNormal1.8-7.7The [facility] Physician GroupComment on above:Performed By: #### BMP, CBC #### [facility] [address] [place] [address] USANeutrophils/100 WBC (Bld)66.8 %Normal.The [facility] Physician GroupComment on above:Performed By: #### BMP, CBC #### [facility] [address] [place] [address] USANRBC%0.0 /100{WBC}Normal0-0.5The [facility] Group Comment on above:Performed By: #### BMP, CBC #### [facility] [address] [place] [address] USAPlatelet mean volume (Bld) [Entitic vol]8.9 fLNormal 6.3-10.7The [facility] Physician GroupComment on above:Performed By: #### BMP, CBC #### [facility] [address] [place] [address] USAPlatelets (Bld) [#/Vol]179 10*3/vMQqwzpd306-378Nbr [facility] Physician GroupComment on above:Performed By: #### BMP, CBC #### [facility] [address] [place] [address] USARBC (Bld) [#/Vol]3.44 10*6/uLLow3.60-5.00The [facility] Physician GroupComment on above:Performed By: #### BMP, CBC #### [facility] [address] [place] [address] USAWBC (Bld) [#/Vol]5.5 10*3/uLNormal3.8-11.6The [facility] Physician GroupComment on above:Performed By: #### BMP, CBC #### [place] [address] USACreatinine [Mass/volume] in Serum or PlasmaOrdered By: João Soto on 49-91-7561Txdqglxewr [Mass/Vol]Creatinine [Mass/volume] in Serum or PlasmaLow0.60-1.20[address] HospitalEosinophils Auto (Bld) [#/Vol]Ordered By: João Soto on 83-46-3646Xayjtljullh (Bld) [#/Vol] Automated eosinophil count0.0-0.45[facility] Eosinophils/100 WBC Auto (Bld)Ordered By: João Soto on 09-11-2024 Eosinophils/100 WBC (Bld)Automated eosinophil %.[address] HospitalErythrocyte distribution width Auto (RBC) [Ratio]Ordered By: João Soto on 82-89-4847Sdnxgknfxgf distribution width (RBC) [Ratio]Erythrocyte distribution width [Ratio] by Automated count11.9-15.3FZanesville City HospitalGlucose Glucometer (BldC) [Mass/Vol]Ordered By: João Soto on 41-40-4863Ypyillh [Mass/Vol]Capillary blood glucose measurement by glucometer (mass/volume)[address] [facility] HospitalComment on above:Random Glucose Reference Range is dependent on time and content of last meal. Glucose of more than 200 mg/dL in a nonstressed, ambulatory subject supports the diagnosis of Diabetes Mellitus.Glucose Poct Glucometerson 25-74-9345Adnvhkw [Mass/Vol]112 mg/dLNoNovant Health Mint [facility] Center Physician GroupComment on above:Result Comment: Random Glucose Reference Range is dependent on time and content of last meal. Glucose of more than 200 mg/dL in a nonstressed, ambulatory subject supports the diagnosis of Diabetes Mellitus. PERFORMED BY: [facility] [address] [place] [address] PATHOLOGIST RESEARCH METHODOLOGIST MELANIE ALMAZAN M.D.Performed By: #### GLULS #### Point of Care testing ,Glucose [Mass/Vol]106 mg/dLNoNovant Health Mint Hill Medical Center Physician GroupComment on above: Result Comment: Random Glucose Reference Range is dependent on time and content of last meal. Glucose of more than 200 mg/dL in a nonstressed, ambulatory subject supports the diagnosis of Diabetes Mellitus. PERFORMED BY: [facility] [address] [place] [address] PATHOLOGIST RESEARCH METHODOLOGIST MELANIE ALMAZAN M.D.Performed By: #### GLULS #### Point of Care testing ,Glucose [Mass/volume] in Serum or PlasmaOrdered By: João Soto on 09-11-2024 Glucose [Mass/Vol]Glucose [Mass/volume] in Serum or Gtgmfk03-863OivwluthfWilson Street HospitalComment on above:ADA recommended reference rangeRandom Glucose Reference Range is dependent on time and content of last meal. Glucose of more than 200 mg/dL in a nonstressed, ambulatory subject supports the diagnosisof Diabetes Mellitus.Hematocrit Auto (Bld) [Volume fraction]Ordered By: João Soto on 18-63-1196Uanwunkofo (Bld) [Volume fraction]Hematocrit [Volume Fraction] of Blood by Automated vfvvfBwo14.0-46.4FZanesville City HospitalHemoglobin [Mass/volume] in BloodOrdered By: João Soto on 09-11-2024 Hemoglobin (Bld) [Mass/Vol]Hemoglobin [Mass/volume] in MknqaDwo95.8-15.[address] HospitalLeukocytes [#/volume] corrected for nucleated erythrocytes in Blood by Automated counOrdered By: João Soto on 09-11-2024 WBC corrected for nucl RBC Auto (Bld) [#/Vol]Leukocytes [#/volume] corrected for nucleated erythrocytes in Blood by Automated coun3.8-11.6FZanesville City HospitalLymphocytes Auto (Bld) [#/Vol]Ordered By: João Soto on 04-50-2034Hfutpzutsca (Bld) [#/Vol]Lymphocytes [#/volume] in Blood by Automated countLow1.00-4.8[address] HospitalLymphocytes/100 WBC Auto (Bld) Ordered By: João Soto on 63-73-1226Dkivhxsuowi/100 WBC (Bld)Lymphocytes/100 leukocytes in Blood by Automated count.[facility] Street HospitalMCH Auto (RBC) [Entitic mass]Ordered By: João Soto on 66-84-6680WST (RBC) [Entitic mass]MCH [Entitic mass] by Automated count24.7-34.3FZanesville City HospitalMCHC Auto (RBC) [Mass/Vol]Ordered By: João Soto on 31-83-4985OBJG (RBC) [Mass/Vol]MCHC [Mass/volume] by Automated count32.0-35.0[address] HospitalMCV Auto (RBC) [Entitic vol]Ordered By: João Soto on 24-07-5683RDF (RBC) [Entitic vol]MCV [Entitic volume] by Automated -[address] HospitalMonocytes Auto (Bld) [#/Vol]Ordered By: João Soto on 65-55-1497Lubvcgojf (Bld) [#/Vol]Automated blood monocyte count0.0-0.[address] HospitalMonocytes/100 WBC Auto (Bld)Ordered By: João Soto on 33-89-1894Qjvmsfblc/100 WBC (Bld)Automated monocyte %.[address] HospitalNeutrophils Auto (Bld) [#/Vol]Ordered By: João Soto on 88-40-8381Scbsqtsluuv (Bld) [#/Vol]Neutrophils [#/volume] in Blood by Automated count1.8-7.7FZanesville City HospitalNeutrophils/100 WBC Auto (Bld)Ordered By: João Soto on 09-65-3799Efgvmnepoxv/100 WBC (Bld)Automated neutrophil %.[address] HospitalNo Panel InformationOrdered By: João Soto on 73-84-3552Vwuuxrmum GFR (CKD-EPI)> 60.0 mL/MinWilson Street HospitalPharmacy Creatinine Clearance (Chem48.10[address] HospitalNucleated erythrocytes [Presence] in Blood by Automated countOrdered By: João Soto on 06-04-1798Qycxfusor RBC Auto Ql (Bld)Nucleated erythrocytes [Presence] in Blood by Automated count0-0.5FZanesville City HospitalPathology study report documentOrdered By: Imer Connor on 29-50-6935Egvmkdecz studyWilson Street Hospital Other Platelet mean volume Auto (Bld) [Entitic vol]Ordered By: João Soto on 93-53-5901Vyxnhkzp mean volume (Bld) [Entitic vol]Platelet mean volume [Entitic volume] in Blood by Automated count6.3-10.7FZanesville City HospitalPlatelets Auto (Bld) [#/Vol]Ordered By: João Soto on 36-16-1667Iycawalno (Bld) [#/Vol]Platelets [#/volume] in Blood by Automated wswwu014-291OmtaaejphWilson Street HospitalPotassium [Moles/volume] in Serum or PlasmaOrdered By: João Soto on 88-79-6669Lvcpgivoa [Moles/Vol]Potassium [Moles/volume] in Serum or Plasma3.5-5.1FZanesville City HospitalRBC Auto (Bld) [#/Vol]Ordered By: João Soto on 49-68-8507ZJW (Bld) [#/Vol] Erythrocytes [#/volume] in Blood by Automated countLow3.60-5.00[facility] Hospitalerum or plasma anion gap determinationOrdered By: João Soto on 47-23-9154Ntjgv gap [Moles/Vol]Serum or plasma anion gap determination6.0-15.0[facility] Hospitalodium [Moles/volume] in Serum or PlasmaOrdered By: João Soto on 55-95-3787Ukwwbq [Moles/Vol]Sodium [Moles/volume] in Serum or GqfvojVze145-901DxcxikludWilson [address] HospitalUrea nitrogen [Mass/volume] in Serum or PlasmaOrdered By: João Soto on 58-72-0129Lqug nitrogen [Mass/Vol]Urea nitrogen [Mass/volume] in Serum or Plasma 7-25[address] HospitalWBC Auto (Bld) [#/Vol]Ordered By: João Soto on 67-35-6659XUB (Bld) [#/Vol]Leukocytes [#/volume] in Blood by Automated count3.8-11.6FZanesville City HospitalBasic Metabolic Panelon 81-18-3922Eqpic gap [Moles/Vol]7.8 mmol/LNormal6.0-15.0[facility] Physician GroupComment on above:Performed By: #### GLULS #### Point of Care testing ,Calcium [Mass/Vol]8.7 mg/dLNormal8.6-10.3The [facility] Physician GroupComment on above:Performed By: #### GLULS #### Point of Care testing ,Chloride [Moles/Vol]101 mmol/OFhgnsy07-584Oef [facility] Physician GroupComment on above:Performed By: #### GLULS #### Point of Care testing ,CO2 [Moles/Vol]30.6 mmol/YYxklzp00.0-31.0[facility] Physician GroupComment on above:Performed By: #### GLULS #### Point of Care testing ,Creatinine [Mass/Vol]0.55 mg/dLLow0.60-1.20The [facility] Physician GroupComment on above:Performed By: #### GLULS #### Point of Care testing ,Creatinine Clr Calc Ebuwkhka61.92NormalThe [facility] Physician GroupComment on above:Result Comment: PERFORMED BY: [address] [place] [address] PATHOLOGIST RESEARCH METHODOLOGIST MELANIE ALMAZAN M.D.Performed By: #### GLULS #### Point of Care testing ,GFR/1.73 sq M.predicted MDRD (S/P/Bld) [Vol rate/Area]mL/min/{1.73_m2}NormalThe [facility] Physician GroupComment on above:Performed By: #### GLULS #### Point of Care testing ,Glucose [Mass/Vol]102 mg/zBHkxr14-136Yjf [facility] Physician GroupComment on above:Result Comment: Random Glucose Reference Range is dependent on time and content of last meal. Glucose of more than 200 mg/dL in a nonstressed, ambulatory subject supports the diagnosis of Diabetes Mellitus. ADA recommended reference rangePerformed By: #### GLULS #### Point of Care testing ,Potassium [Moles/Vol]4.4 mmol/LNormal3.5-5.1The [facility] Group Comment on above:Performed By: #### GLULS #### Point of Care testing ,Sodium [Moles/Vol]135 mmol/QPlv863-959Qvp [facility] Physician GroupComment on above:Performed By: #### GLULS #### Point of Care testing ,Urea nitrogen [Mass/Vol]17 mg/dLNormal7-25The [facility] Physician GroupComment on above:Performed By: #### GLULS #### Point of Care testing ,Complete Blood Count Auto Diffon 88-81-4718Fntdxalyi (Bld) [#/Vol]0.0 10*3/uL Normal0.0-0.2The [facility] Physician GroupComment on above:Result Comment: PERFORMED BY: [place] [address] [place] [address] PATHOLOGIST RESEARCH METHODOLOGIST MELANIE ALMAZAN M.D.Performed By: #### GLULS #### Point of Care testing ,Basophils/100 WBC (Bld)0.1 %Normal.The [facility] Physician GroupComment on above:Performed By: #### GLULS #### Point of Care testing ,Eosinophils (Bld) [#/Vol]0.1 10*3/uLNormal0.0-0.45The [facility] Comment on above:Performed By: #### GLULS #### Point of Care testing ,Eosinophils/100 WBC (Bld)1.8 %Normal.The [facility] Physician GroupComment on above:Performed By: #### GLULS #### Point of Care testing ,Erythrocyte distribution width (RBC) [Ratio]13.2 %Hxscdt40.9-15.3The [facility] Physician GroupComment on above:Performed By: #### GLULS #### Point of Care testing ,Hematocrit (Bld) [Volume fraction]31.3 %Low34.0-46.4The [facility] Physician GroupComment on above:Performed By: #### GLULS #### Point of Care testing ,Hemoglobin (Bld) [Mass/Vol]10.7 g/dLLow11.8-15.4The [facility] Comment on above:Performed By: #### GLULS #### Point of Care testing ,Lymphocytes (Bld) [#/Vol]0.7 10*3/uLLow1.00-4.8The [facility] Comment on above:Performed By: #### GLULS #### Point of Care testing ,Lymphocytes/100 WBC (Bld)11.8 %Normal.The [facility] Physician GroupComment on above:Performed By: #### GLULS #### Point of Care testing ,MCH (RBC) [Entitic mass]29.7 mpUtcswb41.7-34.3The [facility] Comment on above:Performed By: #### GLULS #### Point of Care testing ,MCV (RBC) [Entitic vol]87.2 iHHcizqd20-202Vev [facility] Physician GroupComment on above:Performed By: #### GLULS #### Point of Care testing ,Mean Corpuscular HGB Conc34.1 g/wCPhoidz44.0-35.0The [facility] Comment on above:Performed By: #### GLULS #### Point of Care testing ,Monocytes (Bld) [#/Vol]0.8 10*3/uLNormal0.0-0.8[facility] Comment on above:Performed By: #### GLULS #### Point of Care testing ,Monocytes/100 WBC (Bld)12.5 %Normal.The [facility] Physician GroupComment on above:Performed By: #### GLULS #### Point of Care testing ,Neutrophils (Bld) [#/Vol]4.6 10*3/uLNormal1.8-7.7The [facility] Comment on above:Performed By: #### GLULS #### Point of Care testing ,Neutrophils/100 WBC (Bld)73.8 %Normal.The [facility] Physician GroupComment on above:Performed By: #### GLULS #### Point of Care testing ,NRBC%0.1 /100{WBC}Normal0-0.5The [facility] Physician GroupComment on above: Performed By: #### GLULS #### Point of Care testing ,Platelet mean volume (Bld) [Entitic vol]8.7 fLNormal6.3-10.7The [facility] Physician GroupComment on above:Performed By: #### GLULS #### Point of Care testing ,Platelets (Bld) [#/Vol]201 10*3/dJDhflwn583-471Olp [facility] Comment on above:Performed By: #### GLULS #### Point of Care testing ,RBC (Bld) [#/Vol]3.59 10*6/uLLow3.60-5.00The [facility] Physician GroupComment on above:Performed By: #### GLULS #### Point of Care testing ,WBC (Bld) [#/Vol]6.2 10*3/uLNormal3.8-11.6The [facility] Physician GroupComment on above:Performed By: #### GLULS #### Point of Care testing ,Glucose Poct Glucometerson 31-43-2784Yqhuzxz [Mass/Vol]118 mg/dLNoNovant Health Mint Hill [facility] Center Physician GroupComment on above:Result Comment: Random Glucose Reference Range is dependent on time and content of last meal. Glucose of more than 200 mg/dL in a nonstressed, ambulatory subject supports the diagnosis of Diabetes Mellitus. PERFORMED BY: [place] [id number] PATHOLOGIST RESEARCH METHODOLOGIST MELANIE ALMAZAN M.D.Performed By: #### GLULS #### Point of Care testing ,Glucose [Mass/Vol]143 mg/dLHCA Florida St. Petersburg Hospital Physician GroupComment on above: Result Comment: Random Glucose Reference Range is dependent on time and content of last meal. Glucose of more than 200 mg/dL in a nonstressed, ambulatory subject supports the diagnosis of Diabetes Mellitus. PERFORMED BY: [facility] [address] [place] [address] PATHOLOGIST RESEARCH METHODOLOGIST MELANIE ALMAZAN M.D.Performed By: #### GLULS #### Point of Care testing ,Glucose [Mass/Vol]113 mg/dLHCA Florida St. Petersburg Hospital Physician GroupComment on above: Result Comment: Random Glucose Reference Range is dependent on time and content of last meal. Glucose of more than 200 mg/dL in a nonstressed, ambulatory subject supports the diagnosis of Diabetes Mellitus. PERFORMED BY: [place] [id number] PATHOLOGIST RESEARCH METHODOLOGIST MELANIE ALMAZAN M.D.Performed By: #### GLULS #### Point of Care testing ,Glucose [Mass/Vol]109 mg/dLHCA Florida St. Petersburg Hospital Physician GroupComment on above: Result Comment: Random Glucose Reference Range is dependent on time and content of last meal. Glucose of more than 200 mg/dL in a nonstressed, ambulatory subject supports the diagnosis of Diabetes Mellitus. PERFORMED BY: [place] [address] PATHOLOGIST RESEARCH METHODOLOGIST MELANIE ALMAZAN M.D.Performed By: #### GLULS #### Point of Care testing ,Glucose Poct Glucometerson 05-84-6079Eksknpt [Mass/Vol]183 mg/dLNoNovant Health Mint Hill [facility] Center Physician Comment on above:Result Comment: Random Glucose Reference Range is dependent on time and content of last meal. Glucose of more than 200 mg/dL in a nonstressed, ambulatory subject supports the diagnosis of Diabetes Mellitus. PERFORMED BY: [address] [address] PATHOLOGIST RESEARCH METHODOLOGIST MELANIE LAMAZAN M.D.Performed By: #### GLULS #### Point of Care testing ,Glucose [Mass/Vol]129 mg/dLHCA Florida St. Petersburg Hospital Physician Comment on above: Result Comment: Random Glucose Reference Range is dependent on time and content of last meal. Glucose of more than 200 mg/dL in a nonstressed, ambulatory subject supports the diagnosis of Diabetes Mellitus. PERFORMED BY: [address] [address] PATHOLOGIST RESEARCH METHODOLOGIST MELANIE ALMAZAN M.D.Performed By: #### GLULS #### Point of Care testing ,Glucose [Mass/Vol]132 mg/dLNoNovant Health Mint Hill [facility] Center Physician GroupComment on above: Result Comment: Random Glucose Reference Range is dependent on time and content of last meal. Glucose of more than 200 mg/dL in a nonstressed, ambulatory subject supports the diagnosis of Diabetes Mellitus. PERFORMED BY: [facility] [address] [place] [address] PATHOLOGIST RESEARCH METHODOLOGIST MELANIE ALMAZAN M.D.Performed By: #### GLULS #### Point of Care testing ,Ptfqsgf8Krp7: Cleaned MeterNoNovant Health Mint Hill [facility] Center Physician GroupComment on above: Result Comment: PERFORMED BY: [facility] [address] [place] [address] PATHOLOGIST RESEARCH METHODOLOGIST MELANIE ALMAZAN M.D.Performed By: #### GLULS #### Point of Care testing ,Glucose [Mass/Vol]98 mg/dLHCA Florida St. Petersburg Hospital Physician GroupComment on above: Result Comment: Random Glucose Reference Range is dependent on time and content of last meal. Glucose of more than 200 mg/dL in a nonstressed, ambulatory subject supports the diagnosis of Diabetes Mellitus.Performed By: #### GLULS #### Point of Care testing ,Dino 09-09-2024 Specimen: [id number] Received: 09/09/24 Status: BARBARA Polk Num: [id number] Spec Type: Surgical Subm Dr: João Soto, Tissues: A Joint/Knee (RIGHT TOTAL KNEE) Procedures: HE, Gross/Micro L4, Decalcification Age/ Patient Sex Location Account Attending Physician Nata Pete 79/F 4N [id number] João Soto DO SPEC NUM: [id number] RECD: 09/09/24 STATUS: BARBARA POLK NUM: [id number] LORIN: 09/09/240000 SUBM DR: João Soto DO ENTERED: 09/09/24 ARNAV GUEVARA: VERONICA TYPE: Surgical DEPT: S ENTERED BY: [id number] RECV BY: [id number] ORDERED: HE, Gross/Micro L4, Decalcification ORDERED: JACKELYN, Gross/Micro L4, [...] yellow-bryant, glistening and uniform cut surfaces. A contact representative section of the bone is submitted in a single cassette after decalcification. (1, , [id number] A)MEJIA Specimen: [id number] Received: 09/09/24 Status: BARBARA Polk Num: [id number] Spec Type: Surgical Subm Dr: João Soto, Tissues: A Joint/Knee (RIGHT TOTAL KNEE) Procedures: JACKELYN, Gross/Micro L4, Decalcification Patient: Nata Pete [id number] (Continued) Specimen: [id number] Received: 09/09/24 (Continued) Signed (signature on file) Imer Connor MD 09/11/24 1509 Specimen: [id number] Received: 09/09/24 Status: BARBARA Pokl Num: [id number] Spec Type: Surgical Subm Dr: João Soto DO Tissues: A Joint/Knee (RIGHT TOTAL KNEE) Procedures: JACKELYN, Gross/Micro L4, Decalcification Patient: [place] perales Taylor [id number] (Continued) Specimen: [id number] Received: 09/09/24 (Continued) Microscopic Description Microscopic examinations are performed supporting the above interpretation CPT Codes 75358 40287 Specimen: [id number] Received: 09/09/24 Status: BARBARA Polk Num: [id number] Spec Type: Surgical Subm Dr: João Soto DO Tissues: A Joint/Knee (RIGHT TOTAL KNEE) Procedures: AJCKELYN, Gross/Micro L4, Decalcification Patient: Nata Pete [id number] (Continued) Signed (signature on file) Imer Connor MD 09/11/[address] [place] [address] Physician GroupNo Panel InformationOrdered By: João Soto on 46-40-6517Hqsblch Glucose CommentGlu2: cleaned Premier HealthX-ray reportOrdered By: Dedrick Arroyo on 82-48-5317Plwqx report [facility] Main [address] [address] XRay Report Signed Patient: Nata Pete MR#: [id number] : 1945 Acct:[id number] Age/Sex: 79 / F ADM Date: 5 Loc: 4N Room: [address] [place] [address] Type: [facility] Attending Dr: João Soto DO Copies [...] HARDWARE COMPLICATION. Impression dictated by: Dedrick Arroyo Jr. D.OKiara09/09/2024 4:01 PM Dictation Location: RADIO-PC-22 Transcribed By: HIMA 09/09/24 160 Dictated By: Dedrick Arroyo Jr, DO 09/09/24 1600 Signed By: 09/09/[address] [place], [place] [address]XR knee RT 2Von 24-25-7147KI knee RT 2V [facility] [place] [address] XRay Report Signed Patient: Nata Pete MR#: [id number] : 1945 Acct:[id number] Age/Sex: 79 / F ADM Date: 09/09/24 Loc: 4N Room: [address] [place] [address] Type: [facility] Attending Dr: João Soto DO Copies [...] HARDWARE COMPLICATION. Impression dictated by: Bryan Goodwin Jr..O.09/09/2024 4:01 PM Dictation Location: RADIO-PC-22 Transcribed By: HIMA 09/09/24 1601 Dictated By: Dedrick Arroyo Jr, DO 09/09/24 1600 Signed By: 09/09/[address] [place] [address] Physician GroupX-ray reportOrdered By: Yuriy Moran on 08-30-3182Sgeia reportDELAWARE COUNTY [facility] [place] [address] [place] [address] XRay Report Signed Patient: Nata Pete MR#: [id number] : 1945 Acct:[id number] Age/Sex: 79 / F ADM Date: 5 Loc: [facility] Room: Type: [facility] CLI Attending Dr: João Soto DO Copies to: João Soto DO~ Ordering Provider: João Soto DO Date of Service: 09/03/24 XR/XR femur BI: M17.11 - Unilateral primary osteoarthritis, right knee ([id number]) XR/XR tibia/fibula BI: M17.11 - Unilateral primary osteoarthritis, right knee XR femur BI, XR tibia/fibula BI 09/03/2024 2:04 PM SIGNS AND SYMPTOMS: Preop right total knee arthroplasty PROTOCOL: Frontal radiographs of the bilateral femurs and bilateral tibia and fibula COMPARISON: None FINDINGS: There is severe narrowing of the weightbearing joint spaces of the knees bilaterally, right greaterthan left. This is most pronounced in the lateral weightbearing compartment on the right with 29.5 degrees of valgus angulation. Postoperative changes are noted in the hips bilaterally consistent with previouship fractures. The tibia and fibula are grossly intact bilaterally. XR/XR femur BI IMPRESSION: There is severe narrowing of the weightbearing joint spaces of the knees bilaterally, right greaterthan left. This is most pronounced in the lateral weightbearing compartment on the right with 29.5 degrees of valgus angulation. Impression dictated by: Yuriy Moran M.D.09/03/2024 11:39 PM Dictation Location: [place] [address] Transcribed By: [facility] 09/03/242338 Dictated By: Yuriy Moran II, MD 09/03/242337 Signed By: 09/03/242338 [facility] Work Phone: Study reportDELAWARE COUNTY [facility] [address] [place] [address], [place] [address] XRay Report Signed Patient: Nata Pete MR#: [id number] : 1945 Acct:[id number] Age/Sex: 79 / F ADM Date: 5 Loc: [facility] Room: Type: [facility] Attending Dr: João Soto DO Copies to: [...] Yuriy Moran M.D.09/03/2024 9:29 PM Dictation Location: [place] [address] Transcribed By: [facility] 09/03/242128 Dictated By: Yuriy Moran II, MD 09/03/242126 Signed By: 09/03/242128 [facility] Work Phone: XR cerv spine AP/LAT/FLX/EXTon 56-25-5913CL cerv spine AP/LAT/FLX/EXTDELAWARE COUNTY H[facility]ITAL [facility] [place] [address] [place] [address] XRay Report Signed Patient: Nata Pete MR#: [id number] : 1945 Acct:[id number] Age/Sex: 79 / F ADM Date: 09/03/24 Loc: [facility] Room: Type: REG CLI Attending Dr: João [...] Yuriy Moran M.D.09/03/2024 9:29 PM Dictation Location: [place] [address] Transcribed By: [facility] 09/03/242128 Dictated By: Yuriy Moran II, MD 09/03/242126 Signed By: 09/03/242128[facility] Physician GroupXR tibia/fibula BIon 09-03-2024 XR tibia/fibula [facility] [place] [facility] [address] [place] [address] XRay Report Signed Patient: Nata Pete MR#: [id number] : 1945 Acct:[id number] Age/Sex: 79 / F ADM Date: 09/03/24 Loc: [facility] Room: Type: REG CLI Attending Dr: João Soto DO Copies to: João Soto DO Ordering Provider: João Soto DO Date of Service: 09/03/24 XR/XR femur BI: M17.11 - Unilateral primary osteoarthritis, right knee ([id number]) XR/XR tibia/fibula BI: M17.11 - Unilateral primary [...] Yuriy Moran M.D.09/03/2024 11:39 PM Dictation Location: [place] [address] Transcribed By: [facility] 09/03/242338 Dictated By: Yuriy Moran II, MD 09/03/242337 Signed By: 09/03/[address] [facility] [address] Physician GroupAppearance of UrineOrdered By: João Soto on 12-05-7196Gfyjbyeeda (U)Urine appearanceCleUniversity Hospitals Samaritan Medical CenterBacteria [Presence] in Urine by AutomatedOrdered By: João Soto on 99-62-0940Ggcqngjk Auto Ql (U)Bacteria [Presence] in Urine by AutomatedNone SeenWilson Street HospitalBilirubin Test strip Ql (U) Ordered By: João Soto on 40-79-1787Drmaphxvi Ql (U)Bilirubin.total [Presence] in Urine by Test stripNegativeWilson Street HospitalColor Auto (U)Ordered By: João Soto on 68-52-9597Gwfqm (U)Color of Urine by Auto Wilson HealthDipstick and Microscopicon 08-26-2024 Appearance (U)ClearNormalClearTgh Crystal River Physician GroupComment on above: Order Comment: Name Collection Type:: Clean-Voided MidstreamPerformed By: #### GLULS #### Point of Care testing ,Bacteria,UrineNone SeenNormalNone SeenTgh Crystal River Physician GroupComment on above:Order Comment: Name Collection Type:: Clean-Voided MidstreamPerformed By: #### GLULS #### Point of Care testing ,Bilirubin,UrineNegativeNormalNegativeTgh Crystal River Physician GroupComment on above:Order Comment: Name Collection Type:: Clean-Voided MidstreamPerformed By: #### GLULS #### Point of Care testing ,Color (U)Light-YellowNormalYellowTgh Crystal River Physician GroupComment on above: Order Comment: Name Collection Type:: Clean-Voided MidstreamPerformed By: #### GLULS #### Point of Care testing ,Glucose Ql (U)NormalNormalNormSacred Heart Hospital Physician GroupComment on above: Order Comment: Name Collection Type:: Clean-Voided MidstreamPerformed By: #### GLULS #### Point of Care testing ,Hyaline Casts,UrineNoneNormal0-8The [facility] Physician GroupComment on above: Order Comment: Name Collection Type:: Clean-Voided MidstreamResult Comment: PERFORMED BY: [place] [address] [place] [address] PATHOLOGIST RESEARCH METHODOLOGIST MELANIE ALMAZAN M.D.Performed By: #### GLULS #### Point of Care testing ,Ketones Ql (U)NegativeNormalNegativeTgh Crystal River Physician GroupComment on above:Order Comment: Name Collection Type:: Clean-Voided MidstreamPerformed By: #### GLULS #### Point of Care testing ,Leukocyte esterase Test strip Ql (U)NegativeNormalNegativeTgh Crystal River Physician GroupComment on above:Order Comment: Name Collection Type:: Clean- Voided MidstreamPerformed By: #### GLULS #### Point of Care testing ,Nitrite,UrineNegativeNormalNegativeThe [facility] Physician GroupComment on above:Order Comment: Name Collection Type:: Clean-Voided MidstreamPerformed By: #### GLULS #### Point of Care testing ,Occult Blood,Urine1+HighNegativeThe [facility] Physician GroupComment on above: Order Comment: Name Collection Type:: Clean-Voided MidstreamResult Comment: PERFORMED BY: [place] [address] [place] [address] PATHOLOGIST RESEARCH METHODOLOGIST MELANIE ALMAZAN M.D.Performed By: #### GLULS #### Point of Care testing ,pH (U)6.5 [pH]Normal5.0-9.0[facility] Physician GroupComment on above:Order Comment: Name Collection Type:: Clean-Voided MidstreamPerformed By: #### GLULS #### Point of Care testing ,Protein,UrineNegativeNormalNegativeThe [facility] Physician GroupComment on above:Order Comment: Name Collection Type:: Clean-Voided MidstreamPerformed By: #### GLULS #### Point of Care testing ,RBC,Getwr1-7Pyfnne1-2Ibk [facility] Physician GroupComment on above:Order Comment: Name Collection Type:: Clean-Voided MidstreamPerformed By: #### GLULS #### Point of Care testing ,Specificy [place],Urine1.507Rdxazw2.001-1.030The [facility] Physician Group Comment on above:Order Comment: Name Collection Type:: Clean-Voided Midstream Performed By: #### GLULS #### Point of Care testing ,Squamous Epithelial Cell,Jfhrw2-2Qevvvy1-1Gox [facility] Physician GroupComment on above:Order Comment: Name Collection Type:: Clean-Voided MidstreamPerformed By: #### GLULS #### Point of Care testing ,Urobilinogen,UrineNormalNormalNormalThe [facility] Physician GroupComment on above:Order Comment: Name Collection Type:: Clean-Voided MidstreamPerformed By: #### GLULS #### Point of Care testing ,WBC,Vrxwr7-1Mokiwq4-8Bml [facility] Physician GroupComment on above:Order Comment: Name Collection Type:: Clean-Voided MidstreamPerformed By: #### GLULS #### Point of Care testing ,Epithelial cells.squamous [#/area] in Urine sediment by Automated countOrdered By: João Soto on 80-93-7518Sqvrcqvdig cells.squamous Auto (Urine sed) [#/Area]Epithelial cells.squamous [#/area] in Urine sediment by Automated count 0-2FZanesville City HospitalErythrocytes [#/area] in Urine sediment by Automated countOrdered By: João Soto on 82-96-4546AOZ Auto (Urine sed) [#/Area]Erythrocytes [#/area] in Urine sediment by Automated count0-4FZanesville City HospitalGlucose [Mass/volume] in Urine by Test stripOrdered By: João Soto on 81-70-0807Orjakya Test strip (U) [Mass/Vol]Glucose [Mass/volume] in Urine by Test stripNormSelect Medical [facility] Hemoglobin Test strip Ql (U)Ordered By: João Soto on 81-08-0302Tuvcazoond Ql (U)Hemoglobin [Presence] in Urine by Test stripHighNegOhioHealth Grove City Methodist HospitalHyaline casts [#/area] in Urine sediment by Automated countOrdered By: João Soto on 59-93-2466Numpqqy casts Auto (Urine sed) [#/Area]Hyaline casts [#/area] in Urine sediment by Automated count0-8Wilson [address] HospitalKetones Test strip Ql (U)Ordered By: João Soto on 24-36-1870Jqzunqf Ql (U)Ketones [Presence] in Urine by Test stripNegOhioHealth Grove City Methodist HospitalLeukocyte esterase [Presence] in Urine by Test stripOrdered By: João Soto on 62-00-9420Nvvntturb esterase Test strip Ql (U)Leukocyte esterase [Presence] in Urine by Test stripNegOhioHealth Grove City Methodist HospitalLeukocytes [#/area] in Urine sediment by Automated countOrdered By: João Soto on 05-67-9591TZZ Auto (Urine sed) [#/Area]Leukocytes [#/area] in Urine sediment by Automated count0-4FZanesville City HospitalNitrite Test strip Ql (U)Ordered By: João Soto on 99-56-8555Ocjxoeu Ql (U)Nitrite [Presence] in Urine by Test stripNegativeWilson Street Hospital Protein Test strip (U) [Mass/Vol]Ordered By: João Soto on 67-27-4413Vyokrue (U) [Mass/Vol]Protein [Mass/volume] in Urine by Test stripNegativeJoint Township District Memorial Hospitalpecific gravity Test strip (U) [Rel density]Ordered By: João Soto on 20-71-4192Lbierkwo gravity (U) [Rel density]Specific gravity of Urine by Test strip1.001-1.030[address] HospitalUrobilinogen Test strip (U) [Mass/Vol]Ordered By: João Soto on 81-55-3284Zylowtqzftsv (U) [Mass/Vol]Urobilinogen [Mass/volume] in Urine by Test stripNormalWilson Street HospitalpH Test strip (U)Ordered By: João Soto on 08-26-2024 pH (U)pH of Urine by Test strip5.0-9.0Wilson [address] HospitalAlanine aminotransferase [Enzymatic activity/volume] in Serum or PlasmaOrdered By: João Soto on 39-83-5082YOM [Catalytic activity/Vol]Alanine aminotransferase [Enzymatic activity/volume] in Serum or Plasma7-52Wilson [address] HospitalAlbumin [Mass/volume] in Serum or Plasma by Bromocresol green (BCG) dye binding methoOrdered By: João Soto on 52-47-2799Dobwfla BCG dye [Mass/Vol] Albumin [Mass/volume] in Serum or Plasma by Bromocresol green (BCG) dye binding metho3.5-5.7FZanesville City HospitalAlkaline phosphatase [Enzymatic activity/volume] in Serum or PlasmaOrdered By: João Soto on 28-62-4123KMS [Catalytic activity/Vol]Alkaline phosphatase [Enzymatic activity/volume] in Serum or Uotexq91-792PvoppyehiWilson Street HospitalAspartate aminotransferase [Enzymatic activity/volume] in Serum or PlasmaOrdered By: João Soto on 30-12-6473XNF [Catalytic activity/Vol]Aspartate aminotransferase [Enzymatic activity/volume] in Serum or Ieftou34-78LpcvtfuriWilson [address] Hospital Basophils Auto (Bld) [#/Vol]Ordered By: João Soto on 75-19-0108Djdhonpgm (Bld) [#/Vol]Automated basophil count0.0-0.2FZanesville City Hospital Basophils/100 WBC Auto (Bld)Ordered By: João Soto on 38-50-3042Ypjknrvzc/100 WBC (Bld)Automated basophil %.[facility] HospitalBilirubin.total [Mass/volume] in Serum or PlasmaOrdered By: João Soto on 57-27-6333Bdjqhyynm [Mass/Vol]Bilirubin.total [Mass/volume] in Serum or Plasma0.3-1.0[address] HospitalCMP with reflex to A1Con 87-17-8813Ifjgohv [Mass/Vol]4.0 g/dLNormal3.5-5.7The [facility] Physician GroupComment on above:Performed By: #### GLULS #### Point of Care testing ,Albumin/Globulin [Mass ratio]2.7 {ratio}NormalThe [facility] Comment on above:Performed By: #### GLULS #### Point of Care testing ,ALP [Catalytic activity/Vol]47 U/QGfalht66-754Trd [facility] Comment on above:Result Comment: PERFORMED BY: [facility] [address] [place] [address] PATHOLOGIST RESEARCH METHODOLOGIST MELANIE ALMAZAN M.D.Performed By: #### GLULS #### Point of Care testing ,ALT [Catalytic activity/Vol]10 U/LNormal7-52The [facility] Comment on above:Performed By: #### GLULS #### Point of Care testing ,Anion gap [Moles/Vol]5.7 mmol/LLow6.0-15.0The [facility] Physician GroupComment on above:Performed By: #### GLULS #### Point of Care testing ,AST [Catalytic activity/Vol]15 U/EJhlxed25-09Xbp [facility] Comment on above:Performed By: #### GLULS #### Point of Care testing ,Bilirubin [Mass/Vol]0.5 mg/dLNormal0.3-1.0The [facility] Physician GroupComment on above:Performed By: #### GLULS #### Point of Care testing ,Calcium [Mass/Vol]9.1 mg/dLNormal8.6-10.3The [facility] Physician GroupComment on above:Performed By: #### GLULS #### Point of Care testing ,Chloride [Moles/Vol]101 mmol/VSbezgc07-466Mwu [facility] Physician GroupComment on above:Performed By: #### GLULS #### Point of Care testing ,CO2 [Moles/Vol]31.1 mmol/LHigh21.0-31.0The [facility] Physician GroupComment on above:Performed By: #### GLULS #### Point of Care testing ,Creatinine [Mass/Vol]0.47 mg/dLLow0.60-1.20The [facility] Physician GroupComment on above:Performed By: #### GLULS #### Point of Care testing ,GFR/1.73 sq M.predicted MDRD (S/P/Bld) [Vol rate/Area]mL/min/{1.73_m2}NormalThe [facility] Physician GroupComment on above:Performed By: #### GLULS #### Point of Care testing ,Globulin (S) [Mass/Vol]1.5 g/dLNormalThe [facility] Physician GroupComment on above:Performed By: #### GLULS #### Point of Care testing ,Glucose [Mass/Vol]96 mg/cKRcjdta72-136Hsr [facility] Physician GroupComment on above:Performed By: #### GLULS #### Point of Care testing ,Potassium [Moles/Vol]4.8 mmol/LNormal3.5-5.1[facility] Comment on above:Performed By: #### GLULS #### Point of Care testing ,Protein [Mass/Vol]5.5 g/dLLow6.4-8.9The [facility] Physician GroupComment on above:Performed By: #### GLULS #### Point of Care testing ,Sodium [Moles/Vol]133 mmol/URdo835-482Lpa [facility] Physician GroupComment on above:Performed By: #### GLULS #### Point of Care testing ,Urea nitrogen [Mass/Vol]20 mg/dLNormal7-25The [facility] Physician GroupComment on above:Performed By: #### GLULS #### Point of Care testing ,Calcium [Mass/volume] in Serum or PlasmaOrdered By: João Soto on 08-22-2024 Calcium [Mass/Vol]Calcium [Mass/volume] in Serum or Plasma8.6-10.3FZanesville City HospitalCarbon dioxide, total [Moles/volume] in Serum or Plasma Ordered By: João Soto on 52-18-0833TH5 [Moles/Vol]Carbon dioxide, total [Moles/volume] in Serum or UmporiXqow99.0-31.0[facility] Chloride [Moles/volume] in Serum or PlasmaOrdered By: João Soto on 90-34-5511Hsuwsxvi [Moles/Vol]Chloride [Moles/volume] in Serum or Dzzkan74-[address] HospitalComplete Blood Count Auto Diffon 08-22-2024 Basophils (Bld) [#/Vol]0.0 10*3/uLNormal0.0-0.2The [facility] Comment on above:Result Comment: PERFORMED BY: [facility] [address] [place] [address] PATHOLOGIST RESEARCH METHODOLOGIST MELANIE ALMAZAN M.D.Performed By: #### GLULS #### Point of Care testing ,Basophils/100 WBC (Bld)1.1 %Normal.The [facility] Physician GroupComment on above:Performed By: #### GLULS #### Point of Care testing ,Eosinophils (Bld) [#/Vol]0.1 10*3/uLNormal0.0-0.45The [facility] Comment on above:Performed By: #### GLULS #### Point of Care testing ,Eosinophils/100 WBC (Bld)2.3 %Normal.The [facility] Physician GroupComment on above:Performed By: #### GLULS #### Point of Care testing ,Erythrocyte distribution width (RBC) [Ratio]13.4 %Yndwie48.9-15.3The [facility] Physician GroupComment on above:Performed By: #### GLULS #### Point of Care testing ,Hematocrit (Bld) [Volume fraction]33.8 %Low34.0-46.4The [facility] Physician GroupComment on above:Performed By: #### GLULS #### Point of Care testing ,Hemoglobin (Bld) [Mass/Vol]11.3 g/dLLow11.8-15.4[facility] Comment on above:Performed By: #### GLULS #### Point of Care testing ,Lymphocytes (Bld) [#/Vol]0.7 10*3/uLLow1.00-4.8[facility] Comment on above:Performed By: #### GLULS #### Point of Care testing ,Lymphocytes/100 WBC (Bld)20.5 %Normal.The [facility] Physician GroupComment on above:Performed By: #### GLULS #### Point of Care testing ,MCH (RBC) [Entitic mass]29.7 woNpoajh71.7-34.3The [facility] Comment on above:Performed By: #### GLULS #### Point of Care testing ,MCV (RBC) [Entitic vol]88.7 uCYpmuil83-099Gtg [facility] Physician GroupComment on above:Performed By: #### GLULS #### Point of Care testing ,Mean Corpuscular HGB Conc33.5 g/uGDtlrlp76.0-35.0[facility] Comment on above:Performed By: #### GLULS #### Point of Care testing ,Monocytes (Bld) [#/Vol]0.4 10*3/uLNormal0.0-0.8[facility] Comment on above:Performed By: #### GLULS #### Point of Care testing ,Monocytes/100 WBC (Bld)12.0 %Normal.The [facility] Physician GroupComment on above:Performed By: #### GLULS #### Point of Care testing ,Neutrophils (Bld) [#/Vol]2.1 10*3/uLNormal1.8-7.7The [facility] Comment on above:Performed By: #### GLULS #### Point of Care testing ,Neutrophils/100 WBC (Bld)64.1 %Normal.The [facility] Physician GroupComment on above:Performed By: #### GLULS #### Point of Care testing ,NRBC%0.2 /100{WBC}Normal0-0.5The [facility] Physician GroupComment on above: Performed By: #### GLULS #### Point of Care testing ,Platelet mean volume (Bld) [Entitic vol]8.9 fLNormal6.3-10.7The [facility] Physician GroupComment on above:Performed By: #### GLULS #### Point of Care testing ,Platelets (Bld) [#/Vol]209 10*3/mZNltlor841-621Oky [facility] Comment on above:Performed By: #### GLULS #### Point of Care testing ,RBC (Bld) [#/Vol]3.81 10*6/uLNormal3.60-5.00[facility] Comment on above:Performed By: #### GLULS #### Point of Care testing ,WBC (Bld) [#/Vol]3.3 10*3/uLLow3.8-11.6The [facility] Physician GroupComment on above:Performed By: #### GLULS #### Point of Care testing ,Creatinine [Mass/volume] in Serum or PlasmaOrdered By: João Soto on 37-09-8010Eshyptjxog [Mass/Vol]Creatinine [Mass/volume] in Serum or PlasmaLow 0.60-1.20[facility] [address] HospitalEosinophils Auto (Bld) [#/Vol]Ordered By: João Soto on 52-84-4580Wapixpqcbcx (Bld) [#/Vol]Automated eosinophil count0.0-0.45[facility] [address] HospitalEosinophils/100 WBC Auto (Bld) Ordered By: João Soto on 45-88-2908Ivnrkfacctw/100 WBC (Bld)Automated eosinophil %.[facility] HospitalErythrocyte distribution width Auto (RBC) [Ratio]Ordered By: João Soto on 24-96-8979Yteczcopjya distribution width (RBC) [Ratio]Erythrocyte distribution width [Ratio] by Automated count11.9-15.3FZanesville City HospitalGlobulin Calc (S) [Mass/Vol]Ordered By: João Soto on 54-73-9718Edysogzs (S) [Mass/Vol]Serum globulin measurement by calculation (mass/volume)[facility] HospitalGlucose [Mass/volume] in Serum or PlasmaOrdered By: João Soto on 76-67-2978Raayoes [Mass/Vol]Glucose [Mass/volume] in Serum or Gabgnq36-[address] HospitalHematocrit Auto (Bld) [Volume fraction]Ordered By: João Soto on 40-13-0797Kmcwgpjqzz (Bld) [Volume fraction]Hematocrit [Volume Fraction] of Blood by Automated torruVth55.0-46.4FZanesville City HospitalHemoglobin [Mass/volume] in BloodOrdered By: João Soto on 58-84-2913Ihcqxuleyx (Bld) [Mass/Vol]Hemoglobin [Mass/volume] in BloodLow 11.8-15.4FZanesville City HospitalLeukocytes [#/volume] corrected for nucleated erythrocytes in Blood by Automated counOrdered By: João Soto on 64-54-6569CQN corrected for nucl RBC Auto (Bld) [#/Vol]Leukocytes [#/volume] corrected for nucleated erythrocytes in Blood by Automated counLow3.8-11.[address] HospitalLymphocytes Auto (Bld) [#/Vol]Ordered By: João Soto on 24-48-5822Fimznsziuds (Bld) [#/Vol]Lymphocytes [#/volume] in Blood by Automated countLow1.00-4.8[facility] Lymphocytes/100 WBC Auto (Bld)Ordered By: João Soto on 08-22-2024 Lymphocytes/100 WBC (Bld)Lymphocytes/100 leukocytes in Blood by Automated count. [facility] HospitalMCH Auto (RBC) [Entitic mass]Ordered By: João Soto on 68-83-7810HWL (RBC) [Entitic mass]MCH [Entitic mass] by Automated count24.7-34.3FZanesville City HospitalMCHC Auto (RBC) [Mass/Vol]Ordered By: João Soto on 68-92-6958TCKQ (RBC) [Mass/Vol]MCHC [Mass/volume] by Automated count32.0-35.0[facility] [address] HospitalMCV Auto (RBC) [Entitic vol]Ordered By: João Soto on 40-38-3285REO (RBC) [Entitic vol]MCV [Entitic volume] by Automated rbowp86-770OmcegfuthWilson [address] HospitalMonocytes Auto (Bld) [#/Vol]Ordered By: João Soto on 42-76-0399Ybosfgecz (Bld) [#/Vol] Automated blood monocyte count0.0-0.8[facility] Monocytes/100 WBC Auto (Bld)Ordered By: João Soto on 20-30-2444Ycojiubkl/100 WBC (Bld)Automated monocyte %.[facility] HospitalNeutrophils Auto (Bld) [#/Vol]Ordered By: João Soto on 71-54-2420Esfdbyzevud (Bld) [#/Vol] Neutrophils [#/volume] in Blood by Automated count1.8-7.7FZanesville City HospitalNeutrophils/100 WBC Auto (Bld)Ordered By: João Soto on 13-12-0051Miexaievsjd/100 WBC (Bld)Automated neutrophil %.[facility] HospitalNo Panel InformationOrdered By: João Soto on 08-22-2024 Estimated GFR (CKD-EPI)> 60.0 mL/MinWilson Street HospitalPharmacy Creatinine Clearance (ChemN/AFZanesville City HospitalNucleated erythrocytes [Presence] in Blood by Automated countOrdered By: João Soto on 63-17-4504Yghhcosfb RBC Auto Ql (Bld)Nucleated erythrocytes [Presence] in Blood by Automated count0-0.5FZanesville City HospitalPlatelet mean volume Auto (Bld) [Entitic vol]Ordered By: João Soto on 90-90-6245Rjpapuhe mean volume (Bld) [Entitic vol]Platelet mean volume [Entitic volume] in Blood by Automated count6.3-10.7FZanesville City HospitalPlatelets Auto (Bld) [#/Vol]Ordered By: João Soto on 31-32-5173Wjdzbsfqx (Bld) [#/Vol]Platelets [#/volume] in Blood by Automated -713LoxlyckjeWilson [address] Hospital Potassium [Moles/volume] in Serum or PlasmaOrdered By: João Soto on 21-63-2896Hmwfrdmsk [Moles/Vol]Potassium [Moles/volume] in Serum or Plasma 3.5-5.1FZanesville City HospitalProtein [Mass/volume] in Serum or Plasma Ordered By: João Soto on 08-82-1337Hqrqlak [Mass/Vol]Protein [Mass/volume] in Serum or PlasmaLow6.4-8.9[facility] [address] HospitalRBC Auto (Bld) [#/Vol]Ordered By: João Soto on 60-20-9392CLQ (Bld) [#/Vol]Erythrocytes [#/volume] in Blood by Automated count3.60-5.00[facility] Serum or plasma albumin/globulin mass ratioOrdered By: João Soto on 61-82-2561Kcexewx/Globulin [Mass ratio]Serum or plasma albumin/globulin mass ratioJoint Township District Memorial Hospitalerum or plasma anion gap determination Ordered By: João Soto on 64-48-9820Jcoik gap [Moles/Vol]Serum or plasma anion gap determinationLow6.0-15.0[facility] District Memorial Hospitalodium [Moles/volume] in Serum or PlasmaOrdered By: João Soto on 54-79-9159Zkxhff [Moles/Vol]Sodium [Moles/volume] in Serum or HyccnqPmh075-393MqlzyvfpwWilson [address] HospitalUrea nitrogen [Mass/volume] in Serum or PlasmaOrdered By: João Soto on 08-19-0810Uwko nitrogen [Mass/Vol]Urea nitrogen [Mass/volume] in Serum or Plasma7-25[address] HospitalWBC Auto (Bld) [#/Vol]Ordered By: João Soto on 92-77-6590XUN (Bld) [#/Vol]Leukocytes [#/volume] in Blood by Automated countLow3.8-11.6FZanesville City HospitalLaboratory - Hematology and Cell countson 64-86-7548BdI3u (Bld) [Mass fraction]5.2 %[facility] HealthcareNo Panel Informationon 10-09-5577BZDI HealthcareInfluenza virus B Ag [Presence] in Upper respiratory specimen by Rapid immunoassayon 92-47-5551PSZNY Ag IA.rapid Ql (Nph)Influenza virus B Ag [Presence] in Upper respiratory specimen by Rapid immunoassayWilson Street HospitalNo Panel Informationon 26-06-0037Qhhjaaqkv Type A (Rapid)NegativeWilson Street HospitalPO SARS CoV-[address] Laboratory - Hematology and Cell countson 62-22-8958TyP5j (Bld) [Mass fraction] 5.3 %[facility] HospitalNo Panel Informationon 29-74-8353JCLJ HealthcareActivated partial thromboplastin time (aPTT) in platelet poor plasma by coagulation a Ordered By: Dharmesh Boss on 45-66-7942xVJR Coag (PPP) [Time]28.7 s25.1-36.[address] HospitalComment on above:A hematocrit value greater than 55% may lead to inaccurate results in coagulation testing. Patientshaving hematocrit values >55% require a special collection tube for coagulation studies. Please contact the laboratory at [phone] for redraw instructions. Basophils Auto (Bld) [#/Vol]Ordered By: Dharmesh Boss on 38-30-7474Zfexdxkwv (Bld) [#/Vol]0.0 10*3/uL0.0-0.2FZanesville City HospitalBasophils/100 WBC Auto (Bld)Ordered By: Dharmesh Boss on 15-73-0698Dvhnqpuiq/100 WBC (Bld)0.[address] HospitalCalcium [Mass/volume] in Serum or PlasmaOrdered By: Dharmesh Boss on 73-51-8305Iraacah [Mass/Vol]8.8 mg/dL8.6-10.3FZanesville City HospitalCarbon dioxide, total [Moles/volume] in Serum or PlasmaOrdered By: Dharmesh Boss on 53-55-0930MP1 [Moles/Vol]27.9 mmol/L21.0-31.0[facility] [address] HospitalChloride [Moles/volume] in Serum or PlasmaOrdered By: Dharmesh Boss on 94-59-7605Jgwgpiht [Moles/Vol]101 mmol/N23-872ZunfhjgxtWilson [address] HospitalCreatine kinase [Enzymatic activity/volume] in Serum or PlasmaOrdered By: Dharmesh Boss on 60-73-6734LD [Catalytic activity/Vol]55 U/W30-866XciqzyaziWilson [address] HospitalCreatinine [Mass/volume] in Serum or PlasmaOrdered By: Dharmesh Boss on 23-81-1328Jckeufscpe [Mass/Vol]0.47 mg/dLLow0.60-1.20[address] HospitalEosinophils Auto (Bld) [#/Vol]Ordered By: Dharmesh Boss on 41-39-9043Objmlmvasya (Bld) [#/Vol]0.1 10*3/uL0.0-0.45[address] HospitalEosinophils/100 WBC Auto (Bld)Ordered By: Dharmesh Boss on 03-10-2024 Eosinophils/100 WBC (Bld)1.[address] HospitalErythrocyte distribution width Auto (RBC) [Ratio]Ordered By: Dharmesh Boss on 03-10-2024 Erythrocyte distribution width (RBC) [Ratio]14.6 %11.9-15.3FZanesville City HospitalGlucose [Mass/volume] in Serum or PlasmaOrdered By: Dharmesh Boss on 84-41-7302Iaivdph [Mass/Vol]93 mg/zW79-283ZshhojnxqWilson [address] Hospital Comment on above:ADA recommended reference rangeRandom Glucose Reference Range is dependent on time and content of last meal. Glucose of more than 200 mg/dL in a nonstressed, ambulatory subject supports the diagnosisof Diabetes Mellitus. Hematocrit Auto (Bld) [Volume fraction]Ordered By: Dharmesh Boss on 03-10-2024 Hematocrit (Bld) [Volume fraction]34.4 %34.0-46.4FZanesville City HospitalHemoglobin [Mass/volume] in BloodOrdered By: Dharmesh Boss on 03-10-2024 Hemoglobin (Bld) [Mass/Vol]11.5 g/dLLow11.8-15.4FZanesville City HospitalINR in Platelet poor plasma by Coagulation assayOrdered By: Dharmesh Boss on 23-10-2123LIQ Coag (PPP) [Relative time]1.0 {INR}[facility] HospitalComment on above:INR Therapeutic Range A) Pre- and Peroperative OAT started two weeks before surgery. NOT HIP SURGERY: 1.5 - 2.5 HIP SURGERY: 2 - 3B) Primary and secondary prevention of venous THROMBOSIS: 2 - 3C) Active venous thrombosis, pulmonary embolismand prevention of recurrent venous thrombosis: 2 - 3D) Prevention of arterial thromboembolismincluding patients with mechanical heart valves: 3 - 4.5Leukocytes [#/volume] corrected for nucleated erythrocytes in Blood by Automated counOrdered By: Dharmesh Boss on 04-29-3626BSH corrected for nucl RBC Auto (Bld) [#/Vol]4.2 10*3/uL3.8-11.6FZanesville City Hospital Lymphocytes Auto (Bld) [#/Vol]Ordered By: Dharmesh Boss on 77-42-5655Qdxkhieeokz (Bld) [#/Vol]1.1 10*3/uL1.00-4.8[address] HospitalLymphocytes/100 WBC Auto (Bld)Ordered By: Dharmesh Boss on 26-35-3631Civzbdaamzm/100 WBC (Bld)25.1 %.[facility] Auto (RBC) [Entitic mass]Ordered By: Dharmesh Boss on 98-02-6919HTR (RBC) [Entitic mass]29.4 pg24.7-34.3FUniversity Hospitals Conneaut Medical CenterHC Auto (RBC) [Mass/Vol]Ordered By: Dharmesh Boss on 78-56-3286RQUQ (RBC) [Mass/Vol]33.5 g/dL32.0-35.0[facility] [address] HospitalMCV Auto (RBC) [Entitic vol]Ordered By: Dharmesh Boss on 70-22-2714BEA (RBC) [Entitic vol]87.5 kR17-709LmndtwpiuWilson [address] HospitalMonocyte distribution width [Entitic volume] in Blood by AutomatedOrdered By: Dharmesh Boss on 03-10-2024 Monocyte distribution width Auto (Bld) [Entitic vol]15.95 %0.00-20.00[facility] HospitalMonocytes Auto (Bld) [#/Vol]Ordered By: Dharmesh Boss on 52-51-5790Ovhxqzwvf (Bld) [#/Vol]0.4 10*3/uL0.0-0.8[address] HospitalMonocytes/100 WBC Auto (Bld)Ordered By: Dharmesh Boss on 03-10-2024 Monocytes/100 WBC (Bld)10.[address] HospitalNatriuretic peptide B [Mass/Vol]Ordered By: Dharmesh Boss on 48-68-1477Pupdyryaotr peptide B (Bld) [Mass/Vol]167.0 pg/mLHigh5-100[address] HospitalNeutrophils Auto (Bld) [#/Vol]Ordered By: Dharmesh Boss on 96-56-1277Byejcnuvaym (Bld) [#/Vol] 2.7 10*3/uL1.8-7.7FZanesville City HospitalNeutrophils/100 WBC Auto (Bld)Ordered By: Dharmesh Boss on 97-94-6721Owhozybegwm/100 WBC (Bld)62.[address] HospitalNo Panel InformationOrdered By: Dharmesh Boss on 68-02-2609Lyugbxgyy GFR (CKD-EPI)> 60.0 mL/MinWilson Street Hospital Pharmacy Creatinine Clearance (Chem47.72[facility] Nucleated erythrocytes [Presence] in Blood by Automated countOrdered By: Dharmesh Boss on 50-83-0834Ybfedfvwp RBC Auto Ql (Bld)0.0 /100{WBC}0-0.5FZanesville City HospitalPlatelet mean volume Auto (Bld) [Entitic vol]Ordered By: Dharmesh Boss on 42-57-7635Stqkibnq mean volume (Bld) [Entitic vol]8.9 fL6.3-10.[address] HospitalPlatelets Auto (Bld) [#/Vol]Ordered By: Dharmesh Boss on 63-78-4885Scwallgqh (Bld) [#/Vol]219 10*3/iA402-901SpmeemotkWilson [address] HospitalPotassium [Moles/volume] in Serum or PlasmaOrdered By: Dharmesh Boss on 08-66-9319Vmejmgwzn [Moles/Vol]4.1 mmol/L3.5-5.1FZanesville City HospitalProthrombin time (PT)Ordered By: Dharmesh Boss on 70-34-2047RJ Coag (PPP) [Time]11.4 s9.0-12.9[address] HospitalComment on above:A hematocrit value greater than 55% may lead to inaccurate results in coagulation testing. Patientshaving hematocrit values >55% require a special collection tube for coagulation studies. Please contact the laboratory at [phone] for redraw instructions.RBC Auto (Bld) [#/Vol]Ordered By: Dharmesh Boss on 03-10-2024 RBC (Bld) [#/Vol]3.93 10*6/uL3.60-5.00[facility] Hospitalerum or plasma anion gap determinationOrdered By: Dharmesh Boss on 23-38-8483Tjzfe gap [Moles/Vol]8.2 mmol/L6.0-15.0[facility] Hospitalodium [Moles/volume] in Serum or PlasmaOrdered By: Dharmesh Boss on 07-43-0367Znpbqc [Moles/Vol]133 mmol/BIac964-826XjajszuhbWilson Street HospitalTroponin I.cardiac [Mass/volume] in Serum or Plasma by Detection limit <= 0.01 ng/Ordered By: Dharmesh Boss on 06-28-3660Ntjwxthm I.cardiac DL <= 0.01 ng/mL [Mass/Vol]7.4 pg/mL0.0-15.0[address] HospitalUrea nitrogen [Mass/volume] in Serum or PlasmaOrdered By: Dharmesh Boss on 72-68-8425Mvyf nitrogen [Mass/Vol]13 mg/dL7-25[address] HospitalWBC Auto (Bld) [#/Vol]Ordered By: Dharmesh Boss on 48-73-0101NOW (Bld) [#/Vol]4.2 10*3/uL3.8-11.6FZanesville City HospitalLaboratory Outside Office Copyon 04-33-9718Mkdugezdzp Outside Office [id number]#1.00TIFFNormalMercy Health Clermont HospitalIn office Testingon 26-77-3371Jq office Testing [id number]#1.00TIFFNoedithMercy Health Clermont HospitalIn office [id number]#1.00TIFFNormal Genaro [facility] Orthopaedic InstitutePMP Drug Screen-LCon 07-78-3356Lvic NameToxassure 23 Invalid Interpretation [facility] CenterComment on above:Result Comment: entered correct informationPerformed By: #### [id number] ####Lam [facility] [address], [place]Dzwdamgtr Orderon 31-55-8372Vsskzkfyy [id number]#1.00TIFF [facility] HospitalPhysician Order [id number]#1.00TIFKyleighProMedica Fostoria Community HospitalConsent for Surgery/Procedure Officeon 23-50-5133Lqafogl for Surgery/Procedure [id number]#1.00TIFFNormal [facility] HospitalConsent for Treatmenton 67-98-8856Pdsbvrw for [id number]#1.00TIFKyleighProMedica Fostoria Community HospitalConsultation Noteon 89-19-4823Goukdzfzdlpz NotePatient: NATA PETE Age: 78 years Sex: Female [...] states that they have been giving her [place] 5/325 twice daily as needed pain that she uses as sparingly as possible. Per patient's understanding they were still going to continue to give this medication to her. She also has been seeing Ortho?Dr. Anguiano. He has been doing injections that worked well for her. She had these last done in September. She states that the right kneewas not done as there was question of [...] All Problems Resolved: Hypertension / SNOMED CT 00282634 Resolved: Osteoarthritis / SNOMED CT 0589652413 Resolved: High cholesterol / SNOMED CT 8633221620 Resolved: Diabetes mellitus / SNOMED CT 298754225 Histories Past Medical History: Resolved Hypertension (54083066): Resolved. Osteoarthritis (3169063921): Resolved. High cholesterol (6188531295): Resolved. Diabetes mellitus (329664974): Resolved. Family History: Hypertension Father Brother Sister Heart disease Father Diabetes mellitus type 2 Mother Brother Stroke Mother CAD (coronary artery disease) Father Procedure history: Appendectomy (SNOMED CT 814333609). Cholecystectomy (SNOMED CT 40353744). Tonsillectomy (SNOMED CT 313837023). Repair of right hip joint (SNOMED CT 653292685001974). Osteoporotic fracture of left hip (SNOMED CT 262414749920812). Social History Social & Psychosocial Habits Alcohol [...] Appropriate mood & affect. Integumentary: Warm, Dry, [place]. Review / Management Results review: No qualifying [...] the right knee done (more content not included)...[facility] HospitalComment on above:Result Comment: Electronically Signed By: Kaci Morton PA-C\.br\Date and Time Signed: 10/17/23 11:44 EDTHIPAA Forms Officeon 98-40-5681BNUXK Forms Office [id number]#1.00TIFFNormSampson Regional Medical Centerer [facility]opaedic InstituteLegal Correspondence Officeon 48-26-6008Yhlht Correspondence Office [id number]#1.00TIFFNormSampson Regional Medical Centerer [facility] Orthopaedic InstituteLegal Correspondence Office [id number]#1.00TIFFNoUniversity Hospitals Lake West Medical CenterOffice/Clinic Note-Physicianon 75-61-3892Xmuvor/Clinic Note-Physician [id number]#1.00TIFFFlower HospitalPatient Correspondenceon 48-63-2755Vnuhhrv Correspondence [id number]#1.00TIFWexner Medical CenterPatient [id number]#1.00TIFF Flower HospitalPatient Correspondence [id number]#1.00TIFFNoUniversity Hospitals Lake West Medical CenterPatient [id number]#1.00TIFF Flower HospitalPatient Correspondence [id number]#1.00TIFFNormProMedica Fostoria Community HospitalPatient History Officeon 58-66-2315Xkkonky History Office [id number]#1.00TIFFNoUniversity Hospitals Lake West Medical CenterRadiology Outside Office Copyon 10-96-9067Wkvxwlowy Outside Office Copy [id number]#1.00TIFWexner Medical CenterReference Laboratory TestingOrdered By: Carlie Ernst on 02-19-8813Qjmk NameCompliance drugInvalid Interpretation CodeFTMC SendOutsSSC Urineon 94-00-3210Omvdtjfi identified Cx Nom (U)Microbiology PROCEDURE: Urine Culture [R1] SOURCE: U CleanCatch BODY SITE: COLLECTED DATE/TIME: 10/01/2023 05:37 EDT RECEIVED DATE/TIME: 10/01/2023 10:13 EDT START DATE/TIME: 10/01/2023 10:13 EDT FREE TEXT SOURCE: Bryant HERNANDEZ, Dillon S. Bryant DO, Dillon S. FINAL REPORTS Final Report [] Verified Date/Time: 10/03/2023 10:12 EDT 70,000 cfu/ml Escherichia coli SUSCEPTIBILITY RESULTS LEGEND: S=Susceptible, N/R=Not Reported, Blank=Data not available, [...] Locations R1: This test was performed at: [facility], [address] [place] [address], [id number] [place] [address], LrcqapFkgirgFlower HospitalComment on above:Performed By: #### [id number], [id number] ####[facility] [address] [place] [address]Consent for Treatmenton 52-44-6006Mrpywwq for Treatment [id number]#1.00[facility]on CampusDischarge Instructionson 26-05-8349Ccyyobfvo Instructions [id number]#1.00[facility] Clinical Summaryon 43-49-0194QS Clinical Summary [address] [address] ED Clinical Summary Person Information Name: NATA PETE Dora/[facility] Age: 78 Years : 1945 Sex: Female Language: Vincentian PCP: Aisha RAGLAND PA-C Marital Status: Phone: [phone] Visit Id: Visit Reason: Urinary frequency; POSS [...] 06:38:15 ADDRESS: [address] [place] [id number] PHYS DOC NOTES: MEDICAL INFORMATION: Prescriptions Given: New Medications [id number], [address], [place] [id number], [phone] cephalexin (Keflex 500 mg Cap) 1 Capsules [...] Address: When: Aisha RAGLAND [address] [place] [address] Business (1) In 3 days DIAGNOSIS: Acute UTINormalFisher Cottle Medical CenterED Note-Physicianon 42-35-4406LK Note-PhysicianBasic Information Time Seen: Dillon Hurtado DO 10/01/2023 [...] she noticed that she had to keep g etting up and was urinating very frequently. She [...] Complexity of Problems Differential Diagnosis: [] [facility] Data External documents reviewed: N/A My [...] day(s), # 14 cap(s), Refills(s) 0, Pharmacy: [id number], 175, cm, 10/01/23 5:36:00 EDT, Height/Length Dosing, 55, kg, 10/01/23 5:36:00 EDT, Weight Dosing cephalexin, 500 mg = 1 cap(s), Cap, Oral, Once, Stop date 10/01/23 6:24:00 EDT, STAT, Start date 10/01/23 6:24:00 EDT, 10/01/23 6:24:00 EDT phenazopyridine, 100 mg = 1 tab(s), Oral, TID, X 3 day(s), # 9 tab(s), Refills(s) 0, Pharmacy: [facility] #[id number], 175, cm, 10/01/23 5:36:00 EDT, Height/Length Dosing, 55, kg, 10/01/23 5:36:00 EDT, Weight Dosing UA With Cult Reflex Urine Culture Disposition Plan Discharge Prescription List Prescriptions Keflex 500 mg Cap, 500 mg= 1 cap(s), Oral, q12hr Pyridium 100 mg Tab, 100 mg= 1 tab(s), Oral, TID Follow-up With When Contact Information Aisha RAGLAND In [address] [place] [address]- Business (1) Additional Instructions: Patient Education Urinary [...] - Denies Substance Abuse (more content not included)...Normal [facility]ermont HospitalComment on above:Result Comment: Electronically Signed By: Dillon Hurtado DO\.br\Date and Time Signed: 10/01/23 06:29 EDTED Patient Education Noteon 35-52-2462QQ Patient Education NoteObstetrics and Gynecology Urinary Tract Infection, Adult A [...] this condition includes: ? Antibiotic medicine. ? Ghqq-sxf-btkxksv medicines to treat discomfort. ? Drinking enough [...] these instructions at home: Medicines ? Take iqvs-fmx-qkxkxhb and prescription medicines only as told by [...] Revised: 02/11/2021 Document Revie (more content not included)...Normal [facility] Patient Summaryon 79-31-3067JG Patient Summary [place] [address] Patient Discharge Instructions Person Information Name: NATA PETE Age: 78 Years Arrival Date: 10/01/2023 05:14:21 Discharge Diagnosis: Acute UTI Primary Care Physician: Aisha RAGLAND PA-C Provider Information Primary Provider: Dillon Hurtado DO Advanced Project Developer:None The exam and treatment you received in the Emergency Department were for an urgent problem and are not intended as complete care. It is important that you follow up with a doctor, nurse practitioner,or physician?s biology laboratory assistant for ongoing care. If your symptoms become worse or you do not improve as expected and you are unable to reach your usual health care provider, you should return to the Emergency Department. We are available 24 hours a day. NATA PETE has been given the following list of patient education materials, prescriptionsand follow-up instructions: Follow-up Instructions: With: Address: When: Aisha RAGLAND [address] [place] [phone] Business (1) In 3 days In the event that this physician does not participate in your insurance network, please consult with your insurance company to find a nearby participating provider. Patient Education Materials: Urinary Tract Infection, Adult A MESSAGE TO ALL PATIENTS REGARDING OPIOIDS PRESCRIPTION OPIOIDS: WHAT YOU NEED TO KNOW Prescription opioids can be used to help relieve rsgckkix-mf-rymusw pain and are often prescribed following a [...] and have fewer risks and side effects. Optionsmay include: ? Pain relievers such as acetaminophen, [...] unused prescription opioids: Find your community drug take- back program or yourpharmacy mail-back program, or flush them down the toilet, following guidance from the Food and Drug Administration (www.fda.gov/Drugs/ResourcesForYou). ? Visit www.cdc.gov/drugoverdose to learn about the risks of opioids abuse and overdose. ? If you believe you may be struggling with addiction, tell your health health care aide and ask for guidance or call SAMHSA?S National Helpline at 4-139-757-PSMK. v Source: [place] Department of [employer] inTouch (more content not included)...Flower HospitalUA With Cult Reflexon 47-37-4982Mupsoihoz Ql (U)NegativeNormal [facility] Rittman Medical CenterComment on above:Performed By: #### [id number], [id number] ####[facility] [address] [place], [place] [address]Vmaqxap (U)CLOUDYAbnormalClearFProMedica Bay Park HospitalComment on above: Performed By: #### [id number], [id number] ####[facility] [address] [place] [address]Qozxj (U)REDAbnormalYellowMercy Health Clermont HospitalComment on above:Performed By: #### [id number], [id number] ####[address] [address] Epithelial cells.squamous LM.HPF (Urine sed) [#/Area]3-3Snlkkc6-7AhwxvbProMedica Bay Park HospitalComment on above:Performed By: #### [id number], [id number] ####[address] [address]Ackcycm Test strip (U) [Mass/Vol]NegativeNormalNegativeMercy Health Clermont HospitalComment on above:Performed By: #### [id number], [id number] ####[address] [address]Jbfschggdh Ql (U)3+AbnormalNegative [facility] HospitalCommymichigan medical center clare on above:Performed By: #### [id number], [id number] ####[address] [address] Ketones (U) [Mass/Vol]1+AbnormalNegativeMercy Health Clermont HospitalComment on above:Performed By: #### [id number], [id number] ####[address] [address]Klddfik.plasma/[place].RBC (Bld) [Mass ratio]>26Ehmvryuf7-2UwrzwtProMedica Bay Park HospitalComment on above:Performed By: #### [id number], [id number] ####[address] [address]Cvjhbfq Ql (U)PositiveAbnormalNegativeMercy Health Clermont HospitalComment on above:Performed By: #### [id number], [id number] ####[address] [address]oX (U)7.0 [pH] Invalid Interpretation Code5.0-9.0Mer[facility] Clerm[facility] HospitalComment on above: Performed By: #### [id number], [id number] ####[address] [address]Hgmtcgt (U) [Mass/Vol]2+Abnormal NegativeMercy Health Clermont HospitalComment on above:Performed By: #### [id number], [id number] ####[address] [address]Kvmsuaaz gravity (U) [Rel density]1.020Invalid Interpretation Code 1.005-1.030Mer[facility] Clermont HospitalComment on above:Performed By: #### [id number], 3071659 ####[address] [address]Oebz of Urine collection methodClean CatchNormalMercy Health Clermont HospitalComment on above:Performed By: #### [id number], [id number] ####[address] [address]Sudubtvjknqe Qn (U)0.2 {Otilia'U}/dLNormal0.0-1.0Mer[facility] Clermont HospitalComment on above: Performed By: #### 76131154, 7475500 ####[address] [address]EML Auto Ql (U)2+AbnormalNegative [facility] Clermont HospitalComment on above:Performed By: #### [id number], [id number] ####[address] [address]VFH LM.HPF (Urine sed) [#/Area]/[HPF]Abnormal0-5Fisher [facility] Rehabilitation & Orthopaedic InstituteComment on above:Performed By: #### [id number], [id number] ####[address], [place] [address]UGXOJWPOGLHjhoqie By: Khushbu Moses on 03-60-8787Jnvmsotbw Ql (U)Negative (10/01/23 5:37 AM)NormalNegativeWW [facility] UA Auto SSClarity (U)Cloudy *ABN* (10/01/23 5:37 AM)Invalid Interpretation CodeClearFTM UA Auto SSColor (U)Red *ABN* (10/01/23 5:37 AM)Invalid Interpretation CodeYellowFT UA Auto SSEpithelial cells.squamous LM.HPF (Urine sed) [#/Area]0-2 /HPFNormal0-2/HPFWW [facility] UA Auto SS Glucose Test strip (U) [Mass/Vol]Negative (10/01/23 5:37 AM)NormalNegativeWW [facility] UA Auto SSHemoglobin Ql (U)3+ *ABN* (10/01/23 5:37 AM)Invalid Interpretation CodeNegativeWW [facility] UA Auto SSKetones (U) [Mass/Vol]1+ *ABN* (10/01/23 5:37 AM)Invalid Interpretation CodeNegativeWW [facility] UA Auto SS [place].plasma/[place].RBC (Bld) [Mass ratio]>75 /HPFInvalid Interpretation Code 0-3/HPFFT UA Auto SSNitrite Ql (U)Positive *ABN* (10/01/23 5:37 AM)Invalid Interpretation CodeNegativeWW [facility] UA Auto SSpH (U)7.0 *NA* (10/01/23 5:37 AM)Invalid Interpretation Code5.0 - 9.0WW [facility] UA Auto SSProtein (U) [Mass/Vol]2+ *ABN* (10/01/23 5:37 AM)Invalid Interpretation CodeNegativeWW [facility] UA Auto SSSpecific gravity (U) [Rel density]1.020 *NA* (10/01/23 5:37 AM)Invalid Interpretation Code1.005 - 1.030FT UA Auto SSUA Spec DescClean Catch (10/01/23 5:37 AM)NormalWW [facility] UA Auto SSUrobilinogen Qn (U)0.5258516 {Otilia'U}/dLNormal0.0 - 1.0 EU/dLFT UA Auto SSWBC Auto Ql (U)2+ *ABN* (10/01/23 5:37 AM)Invalid Interpretation CodeNegativeWW [facility] UA Auto SSWBC LM.HPF (Urine sed) [#/Area]/[HPF]Invalid Interpretation Code0-5/HPFWW [facility] UA Auto SS Outside Records Officeon 89-03-1818Hbrnddz Records Office [id number]#1.00TIFWexner Medical CenterOutside Records Officeon 68-96-3882Uxxlbif Records Office [id number]#1.00[facility] CampusReferrals Officeon 27-30-0433Qmoalvtxy Office [id number]#1.00[facility] CampusMicroalbumin/Creatinine ratio panel (U)on 40-24-4096Vfkrshu DL <= 20 mg/L (U) [Mass/Vol]mg/dLSee Note: mg/dLNorth Kansas City HospitalComment on above:Reference Range: Reference Range Not established Albumin/Creatinine (U) [Mass ratio]NOTENINFNorth Kansas City HospitalComment on above:NOTE: The urine albumin value is less than 0.2 mg/dL therefore [...] be within a diagnostic category. Creatinine (U) [Mass/Vol]18 mg/dLLow20 - 275 mg/dLGUNNISON VALLEY HOSPITAL HealthcareInterpretation and review of laboratory resultsAbnoMeadville Medical CenterPerforming Organization Information Site ID: QPT Name: [facility]utor [facility] Address: [address] [place] [address], [address] [place] [phone] Director: Willie Rodriguez MDWashington County Memorial Hospital HealthcareLaboratory - Hematology and Cell countson 87-92-3422CfO2s (Bld) [Mass fraction]5.2 %[facility] Panel Informationon 22-45-7899Ohsqukjtfzziak and review of laboratory results NormalNOCameron Regional Medical CenterNOCO HealthcareXR shoulder RT min 2V*on 11-39-7941IC shoulder RT min 2V*[facility] [employer] Method Other XR shoulder RT min 2V*[facility] [employer] Other XR shoulder RT min 2V*[address] [place] [facility] [employer] Other XR shoulder RT min 2V*[place] [address]Jyzda [employer] Other XR shoulder RT min 2V*XRay [facility] [employer] Other XR shoulder RT min 2V*[facility] [employer] Other XR shoulder RT min 2V*Patient: Nata Pete MR#: [id number] [employer] Other XR shoulder RT min 2V*436844Mbngi [employer] Other XR shoulder RT min 2V*: 1945 Acct:[id number] [employer] Other XR shoulder RT min 2V*Age/Sex: 77 / F ADM Date: 09/13/22Palmer [employer] Other XR shoulder RT min 2V*Loc: [facility] Room: Type: [facility] [employer] Other XR shoulder RT min 2V*Attending Dr: João Soto DO [employer] Other XR shoulder RT min 2V*Copies to: João Soto DO [employer] Other XR shoulder RT min 2V*Ordering Provider: João Soto [facility] [employer] Other XR shoulder RT min 2V*Date of Service: 09/13/22[place]mer [employer] Other XR shoulder RT min 2V* XR/XR shoulder RT min 2V*: Acute pain of right shoulderPalmer [employer] Other XR shoulder RT min 2V*RIGHT SHOULDER - - 3 viewsPalmer [employer] Other XR shoulder RT min 2V*CLINICAL HISTORY: Right shoulder pain for years.[employer] Other XR shoulder RT min 2V*COMPARISON: [facility] [employer] Other XR shoulder RT min 2V*FINDINGS:[employer] Other XR shoulder RT min 2V*Severe degenerative changes right humeral joint. Mild degenerative changes right AC joint. No acuteNoharry s. truman memorial veterans' hospital [employer] Other XR shoulder RT min 2V*bony process.[employer] Other XR shoulder RT min 2V* XR/XR shoulder RT min 2V*[employer] Other XR shoulder RT min 2V*IMPRESSION:[employer] Other XR shoulder RT min 2V*DEGENERATIVE CHANGES INVOLVING THE RIGHT SHOULDER WITHOUT ACUTE BONY PROCESS.[employer] Other XR shoulder RT min 2V*Impression dictated by: Dedrick Arroyo Jr., JoelOKiara09/13/2022 4:36 PMNuniversity of missouri health care [employer] Other XR shoulder RT min 2V*Dictation Location: [place] [address] [employer] Other XR shoulder RT min 2V*Transcribed By: PWS 09/13/22 [facility] HospitalARE [employer] Other XR shoulder RT min 2V*Dictated By: Dedrick Arroyo Jr DO 09/13/22 [facility] HospitalSAMHI Hotels Other XR shoulder RT min 2V*Signed By:[employer] Other XR shoulder RT min 2V*09/13/22 [facility] Memorial HospitalIKOTECH Other mg MAMM SCREEN 3D LISA CADon 97-82-9856AU MAMM SCREEN 3D LISA CADPatient: ANTA PETE Exam Date: 02/23/2022 : 1945 Gender:F Ordering : MRS. AISHA RAGLAND Admission #: [id number] Family : Order #: [id number] CLICK HERE TO VIEW EXAM RADIOLOGY REPORT [...] at age 72. LOCATION: [facility] BREAST COMPOSITION: Scattered areas fibroglandular density. [...] by: Eliz Burk MD on 02/24/2022 at 08:28[facility] HospitalXR knee BI 3Von 10-41-4341IE knee BI 3VCrystal [facility] [employer] Other xr knee BI 3VFRThompson Memorial Medical Center Hospital [employer] Other XR knee BI 1V2506 [facility] [employer] Other xr knee BI [address] [employer] Other xr knee BI 3VXRHCA Florida West Hospital [employer] Other xr knee BI 3VSJohn J. Pershing VA Medical Center [employer] Other xr knee BI 3VPatient: Nata Pete MR#: [id number] [employer] Other XR knee BI [id number] [employer] Other XR knee BI 3VDOB: 1945 Acct:[id number] [employer] Other xr knee BI 3VAge/Sex: 76 / F ADM Date: 10/05/21[place]mer [employer] Other XR knee BI 3VLoc: SOXD Room: Type: [facility] [employer] Other XR knee BI 3VAttending Dr: João Soto [facility] CareCellufun Other xr knee BI 3VOrdering Provider: João Soto, [employer] Other xr knee BI 3VDate of Service: 10/05/21[place]mer [employer] Other xr knee BI 3VAccession #: ([id number]) XR/XR knee BI 3V - NOT FOR ER USE: Pain in right knee;Pain in left kneePalmer [employer] Other xr knee BI 3VCopies to: João Soto, [facility] CareCellufun Other xr knee BI 3VBILATERAL KNEES - 3 views eachPalmer [employer] Other XR knee BI 3VCOMPARISON: 07/20/2020 right knee.[employer] Other xr knee BI 3VCLINICAL DATA: Bilateral generalized knee pain and difficulty ambulating. No injury.[employer] Other xr knee BI 3VStanding AP, lateral and sunrise views were obtained. There is osteopenia. No acute fractures [facility] [employer] Other xr knee BI 3Vdislocation are noted. There is medial subluxation of the femur with respect to the tibia on [facility] HospitalModulation Therapeutics Other XR knee BI 3Vsides. There is also lateral subluxation of the patella bilaterally. There is moderate joint spacePalmer [employer] Other XR knee BI 3Vnarrowing at these sites. There is also narrowing at the lateral compartments. TricompartmentPalmer [employer] Other XR knee BI 3Vmarginal spurring is seen. There is a trace amount of joint fluid. No focal soft tissue swelling isPalmer [employer] Other XR knee BI 3Vnoted.[employer] Other XR knee BI 3VORDER #: [id number] XR/XR knee BI 3V - NOT FOR ER USEPalmer [employer] Other XR knee BI 3VIMPRESSION:[employer] Other XR knee BI 3VOSTEOPENIA AND ADVANCED DEGENERATIVE CHANGES.[employer] Other xr knee BI 3VImpression dictated by: Shahana Pérez M.D.10/05/2021 2:58 PMNuniversity of missouri health care [employer] Other xr knee BI 3VDictation Location: [id number] [employer] Other XR knee BI 3VTranscribed By: [facility] 10/05/21 [facility] CenterSAMHI Hotels Other xr knee BI 3VDictated By: Shahana Pérez MD 10/05/21 [facility] HospitalSAMHI Hotels Other xr knee BI 3VSigned By:[employer] Other xr knee BI 3V10/05/21 [employer] CorporationIKOTECH Other q - COMPREHENSIVE METABOLIC PANEL W/EGFRon 09-30-2021 Albumin [Mass/Vol]4.0 g/dLNormal3.6-5.1NortherTrinity Health System East Campus Medical SpecialistComment on above:Order Comment: [facility] Testing performed at: [facility], [facility]utor [facility], [address] [facility], [address] [place] [address], [address] [place] [address], Flower Picker: Willie Rodriguez MD [facility] Collection Date/Time: [facility] Results Received Date/Time: [facility] Reported Date/Time: FASTING: NOPerformed By: #### [id number] #### [facility] Default [address] [place] [address]Mwnguga/Globulin [Mass ratio]2.4 {ratio}Normal1.0-2.5NoKnox Community Hospital SpecialistComment on above:Order Comment: [facility] Testing performed at: [employer], [facility], [address] [facility], [address] [place] [address], [address] [place] [address], Flower Picker: Willie Rodriguez MD [facility] Collection Date/Time: [facility] Results Received Date/Time: [facility] Reported Date/Time: FASTING: NOPerformed By: #### [id number] #### [facility] Default [address] [place] [address]UQO [Catalytic activity/Vol]68 U/OHwriaq02-670Zfoqeutt [place] [facility] SpecialistComment on above:Order Comment: [facility] Testing performed at: [employer], [facility], [address] [facility], [address] [place] [address], [address] [place] [address], Flower Picker: Willie Rodriguez MD [facility] Collection Date/Time: [facility] Results Received Date/Time: [facility] Reported Date/Time: FASTING: NOPerformed By: #### [id number] #### [facility] Default [address] [place] [address]EQF [Catalytic activity/Vol]8 U/LNormal6-29NoKnox Community Hospital SpecialistComment on above:Order Comment: [facility] Testing performed at: [employer], [facility], [address] [facility], [address] [place] [address], [address] [place] [address], Flower Picker: Willie Rodriguez MD [facility] Collection Date/Time: [facility] Results Received Date/Time: [facility] Reported Date/Time: FASTING: NOPerformed By: #### [id number] #### [facility] Default [address] [facility] HospitalGarcía [place] [address]WLJ [Catalytic activity/Vol]12 U/YHnohaw73-85Jjoybnyy [place] [facility] SpecialistComment on above:Order Comment: [facility] Testing performed at: [facility], [facility], [address] [place] [address], [address] [place] [address], [address] [place] [address], Flower Picker: Willie Rodriguez MD [facility] Collection Date/Time: [facility] Results Received Date/Time: [facility] Reported Date/Time: FASTING: NOPerformed By: #### [id number] #### [facility] Default [address] [place], [place] [address]Qhxplozmp [Mass/Vol]0.4 mg/dLNormal0.2-1.2NUniversity Hospitals Parma [facility] Center SpecialistComment on above:Order Comment: [facility] Testing performed at: [facility] [facility], [facility], [address] [place] [address], [address] [place] [address], [address] [place] [address], Flower Picker: Willie Rodriguez MD [facility] Collection Date/Time: [facility] Results Received Date/Time: [facility] Reported Date/Time: FASTING: NOPerformed By: #### [id number] #### [facility] Default [address] [place], [place] [address]Msapzoq [Mass/Vol]9.8 mg/dLNormal8.6-10.4NoKnox Community Hospital SpecialistComment on above:Order Comment: [facility] Testing performed at: [facility] [facility], [facility], [address] [place] [address], [address] [place] [address], [address] [place] [address], Flower Picker: Willie Rodriguez MD [facility] Collection Date/Time: [facility] Results Received Date/Time: [facility] Reported Date/Time: FASTING: NOPerformed By: #### [id number] #### [facility] Default [address] [place] [address]Vtxjlerl [Moles/Vol]96 mmol/XChv24-754OjnppwgbKnox Community Hospital SpecialistComment on above:Order Comment: [facility] Testing performed at: [facility] [facility], [facility], [address] [facility], [address] [place] [address], [address] [place] [address], Flower Picker: Willie Rodriguez MD [facility] Collection Date/Time: [facility] Results Received Date/Time: [facility] Reported Date/Time: FASTING: NOPerformed By: #### [id number] #### [facility] Default [address] [place] [address]FH4 [Moles/Vol]28 mmol/YComdpa01-40Xidgwoys [place] [facility] SpecialistComment on above:Order Comment: [facility] Testing performed at: [facility] [facility], [facility], [address] [facility], [address] [place] [address], [address] [place] [address], Flower Picker: Willie Rodriguez MD [facility] Collection Date/Time: [facility] Results Received Date/Time: [facility] Reported Date/Time: FASTING: NOPerformed By: #### [id number] #### [facility] Default [address] [place], [place] [address]Vtqcgkyyly [Mass/Vol]0.43 mg/dLLow0.60-0.93NoKnox Community Hospital SpecialistComment on above:Order Comment: [facility] Testing performed at: [facility] [facility], [facility], [address] [facility], [address] [place] [address], [address] [place] [address], Flower Picker: Willie Rodriguez MD [facility] Collection Date/Time: [facility] Results Received Date/Time: [facility] Reported Date/Time: FASTING: NOResult Comment: For patients >49 years of age, the reference limit for Creatinine is approximately 13% higher for people identified as -Northern Irish.Performed By: #### [id number] #### [facility] Default [address] [place], [place] [address]mCRXWY ([facility])116 mL/min/1.00d0Imbnjz> OR = 60[facility] SpecialistComment on above:Order Comment: [facility] Testing performed at: [employer], [facility], [address] [facility], [address] [place] [address], [address] [place] [address], Flower Picker: Willie Rodriguez MD [facility] Collection Date/Time: [facility] Results Received Date/Time: [facility] Reported Date/Time: FASTING: NOPerformed By: #### [id number] #### [facility] Default [address] [place], [place] [address]eGPOAUI ([facility])100 mL/min/1.02g2Dzwbwf> OR = 60[facility] SpecialistComment on above:Order Comment: [facility] Testing performed at: [employer], [facility], [address] [facility], [address] [place] [address], [address] [place] [address], Flower Picker: Willie Rodriguez MD [facility] Collection Date/Time: [facility] Results Received Date/Time: [facility] Reported Date/Time: FASTING: NOPerformed By: #### [id number] #### [facility] Default [address] [place], [place] [address]Khojdvhk (S) [Mass/Vol]1.7 g/dLLow1.9-3.7[facility] SpecialistComment on above:Order Comment: [facility] Testing performed at: [employer], [facility], [address] [place] [address], [address] [place] [address], [address] [place] [address], Flower Picker: Willie Rodriguez MD [facility] Collection Date/Time: [facility] Results Received Date/Time: [facility] Reported Date/Time: FASTING: NOPerformed By: #### [id number] #### [facility] Default [address] [place], [place] [address]Nwjofxe [Mass/Vol]98 mg/nSEisjva43-317Xhfndxiw [place] [facility] SpecialistComment on above:Order Comment: [facility] Testing performed at: [employer], [facility], [address] [place] [address], [address] [place] [address], [address] [place] [address], Flower Picker: Willie Rodriguez MD [facility] Collection Date/Time: [facility] Results Received Date/Time: [facility] Reported Date/Time: FASTING: NOResult Comment: Non-fasting reference intervalPerformed By: #### [id number] #### [facility] Default [address] [place], [place] [address]Lnpcamezm [Moles/Vol]4.7 mmol/LNormal3.5-5.3NoKnox Community Hospital SpecialistComment on above:Order Comment: [facility] Testing performed at: [employer], [facility], [address] [place] [address], [address] [place] [address], [address] [place] [address], Flower Picker: Willie Rodriguez MD [facility] Collection Date/Time: [facility] Results Received Date/Time: [facility] Reported Date/Time: FASTING: NOPerformed By: #### [id number] #### [facility] Default [address] [place], [place] [address]Hnerbsr [Mass/Vol]5.7 g/dLLow6.1-8.1[facility] SpecialistComment on above:Order Comment: [facility] Testing performed at: [employer], [facility], [address] [place] [address], [address] [place] [address], [address] [place] [address], Flower Picker: Willie Rodriguez MD [facility] Collection Date/Time: [facility] Results Received Date/Time: [facility] Reported Date/Time: FASTING: NOPerformed By: #### [id number] #### [facility] Default [address] [place], [place] [address]Housnf [Moles/Vol]130 mmol/JUkk889-512Wgxrehdc [place] [facility] SpecialistComment on above:Order Comment: [facility] Testing performed at: [employer], [facility], [address] [place] [address], [address] [place] [address], [address] [place] [address], Flower Picker: Willie Rodriguez MD [facility] Collection Date/Time: [facility] Results Received Date/Time: [facility] Reported Date/Time: FASTING: NOPerformed By: #### [id number] #### [facility] Default [address] [place], [place] [address]Zhnp nitrogen [Mass/Vol]14 mg/dLNormal7-25NoKnox Community Hospital SpecialistComment on above:Order Comment: [facility] Testing performed at: [employer], [facility], [address] [place] [address], [address] [place] [address], [address] [place] [address], Flower Picker: Willie Rodriguez MD [facility] Collection Date/Time: [facility] Results Received Date/Time: [facility] Reported Date/Time: FASTING: NOPerformed By: #### [id number] #### [facility] Default [address] [place], [place] [address]Linq nitrogen/Creatinine [Mass ratio]33 mg/mgHigh6-22NoKnox Community Hospital SpecialistComment on above:Order Comment: [facility] Testing performed at: [employer], [facility], [address] [place] [address], [address] [place] [address], [address] [place] [address], Flower Picker: Willie Rodriguez MD [facility] Collection Date/Time: [facility] Results Received Date/Time: [facility] Reported Date/Time: FASTING: NOPerformed By: #### [id number] #### [facility] Default [address] [place], [place] [address]SFEU 14(COMP METB)on 20-92-1742Rxutota [Mass/Vol]3.6 g/dLNormal 3.5-5.0[facility] HospitalComment on above:Performed By: #### CMP #### [facility] [address] [place] [address] [place] KarenAlbumin/Globulin [Mass ratio]1.3 {ratio}NormalMercy Health Fairfield Hospital Comment on above:Performed By: #### CMP #### [facility] [address] [place] [address] [place] KarenALP [Catalytic activity/Vol]57 U/IOxppuo84-374IigMercy Health Fairfield Hospital Comment on above:Performed By: #### CMP #### [facility] [address] [place] [address] [place] KarenALT [Catalytic activity/Vol]16 U/LNormal9-52[facility] Comment on above:Performed By: #### CMP #### [facility] [address] [place] [address] [place] KarenAnion gap [Moles/Vol]9.4 mmol/LNormalMercy Health Fairfield HospitalComment on above:Performed By: #### CMP #### [facility] [address] [place] [address] [place] KarenAST [Catalytic activity/Vol]14 U/ZBgehfa16-96KvaMercy Health Fairfield Hospital Comment on above:Performed By: #### CMP #### [facility] [address] [place] [address] [place] KarenBilirubin [Mass/Vol]0.4 mg/dLNormal0.2-1.3TSelect Medical [facility] Comment on above:Performed By: #### CMP #### [facility] [address] [place] [address] [place] KarenCalcium [Mass/Vol]9.1 mg/dLNormal8.4-10.2[facility] Comment on above:Performed By: #### CMP #### [facility] [address] [place] [address] [place] KarenChloride [Moles/Vol]102 mmol/FFsglpl61-183TaoMercy Health Fairfield Hospital Comment on above:Performed By: #### CMP #### [facility] [address] [place], [place] [id number] Santa KarenCO2 [Moles/Vol]28.8 mmol/UYgyijd14.0-30.0[facility] Comment on above:Performed By: #### CMP #### [facility] [address] [address] [place] KarenCreatinine [Mass/Vol]0.53 mg/dLNormal0.52-1.04The [facility] Comment on above:Performed By: #### CMP #### [facility] [address] [place] [address] [place] KarenEGFR-AF PERUVIAN>60Normal>=60The [facility] Boardman HospitalComment on above: Performed By: #### CMP #### [facility] [address] [place] [address] [place] KarenEGFR-NON AF PERUVIAN>60Normal>=60The [facility] Boardman HospitalComment on above:Performed By: #### CMP #### [facility] [address] [place] [address] [place] KarenGlobulin (S) [Mass/Vol]2.7 g/dLNormalThe [facility] Board[facility] HospitalComment on above:Performed By: #### CMP #### [facility] [address] [place] [address] [place] KarenGlucose [Mass/Vol]98 mg/iFNnupgh65-032Hbn [facility] Board[facility] HospitalComment on above:Performed By: #### CMP #### [facility] [address] [place] [address] [place] KarenPotassium [Moles/Vol]4.2 mmol/LNormal3.4-5.0The [facility] Comment on above:Performed By: #### CMP #### [facility] [address] [place] [address] Santa KarenProtein [Mass/Vol]6.3 g/dLNormal6.1-8.2The [facility] Board[facility] HospitalComment on above:Performed By: #### CMP #### [facility] [address] [place] [address] Santa KarenSodium [Moles/Vol]136 mmol/LCritically fvn687-623Sly [facility] Board[facility] HospitalComment on above:Performed By: #### CMP #### [facility] [address] [place] [address] [place] GrafenUrea nitrogen [Mass/Vol]15.0 mg/dLNormal7.0-17.0The [facility] HospitalComment on above:Performed By: #### CMP #### [facility] [address] [address] [place] KarenUrea nitrogen/Creatinine [Mass ratio]28.3 mg/mgNormalThe [facility] Board[facility] HospitalComment on above:Performed By: #### CMP #### [facility] [address] [phone] [place] SpenceNOVSPon [id number] (SP) Office (HEMASA) --------NATA PETE ([id number]) 1945 FDate Time Provider Department11/07/17 3:00 PM [...] follow up of low WBC count. Review ofoutside labs suggestlymphopenia. Repeat labs today note normal [...] every8 hours as needed.cholecalciferol, vitamin D3, (VITAMIN D- 3) 400 unit cap Take 400 Units by mouthonce daily.Multivitamin capsule Take 1 capsule by mouth once daily.B COMPLEX WITH VITAMIN C (B COMPLEX-C STRESS FORMULA ORAL) Take by mouth.Green Tea [place] Extract (GREEN TEA) cap Take by mouth.DIPHENHYDRAMINE HCL (BENADRYL ALLERGY ORAL) Take by mouth.No current facility-administered medications for this visit.REVIEW OF SYSTEMS:Constitutional: No fever, night sweats or unwanted weight loss. Appetite stableHead and neck: No recurrent sinus infectionsRespiratory: No cough or hemoptysis.Cardiovascular: No chest pain orpalpitations.GI: No nausea, vomiting, diarrhea or GI bleed. No bloating or early satietySkin: No rash or lesions.PHYSICAL EXAMINATION:BP 150/70 Pulse 63 Temp 36.9 ?C (98.4 ?F) (Oral) Resp 18 Ht 149.5 cm(4' 10.86 ) Wt 66.6 kg (146 lb 12.8 oz) SpO2 100% BMI 29.79 kg/m2IXDXGTFY EXAMINATIONGeneral: Alert and oriented, no distress, pleasant and cooperative.Heart: Regular, normal S1 and S2, no murmurs, rubs, or gallopsLungs: Clear to auscultation bilaterallyAbdomen: NT ND, no organomegalyExtremities: Feet/ankles without edema, posterior tibial pulses full andsymmetricalASSESSMENT/PLAN: Nata Pete is a 72 year old female with lymphopenia. Nonew medication changes at the time this was originally noted. Feels well. Labsnormal. Discussed possible causes of transient abnormality.P atient may followup with Dr. Dale at this time and can return as needed or if abnormalityre-emerges.1. Lymphopenia-labs without lymphopenia-suspect this was transient-can follow up with Dr. Dale and RTC if abnormality recurs/persists or otherabnormality developsAlfred LESVIA Velizefarabella Provider: WAYNE PAULA [[id number]]Allergies As of Date: 11/07/2017 Noted Allergy ReactionBEES [...] as of 11/07/2017 Sig: SIMVASTATIN 40 MG TABLETdoes not know mg, but takes 1* CHOLECALCIFEROL (VITAMIN D3) * one daily VITAMIN B-12 ORAL one dailyFISH OIL ORAL one daily ATENOLOL 50 MG [...] MG TABLET >> Caprice Mendoza 11/07/2017 3:00 PM>> CAPRICE MENDOZA SunNov 07, 2017 3:00 PM Received from: [facility] CHOLECALCIFEROL (VITAMIN D3) 1,000 UNIT TABLET >> Caprice [place] 11/07/2017 3:00 PM >> CAPRICE MENDOZA SunNov 07, 2017 3:00 PM Received from: [facility] VITAMIN B-12 ORAL >> Caprice [place] 11/07/2017 3:01 PM >> CAPRICE MENDOZA SunNov 07, 2017 3:01 PM Received from: [facility] FISH OIL ORAL >> Caprice Mendoza 11/07/2017 3:01 PM >> CAPRICE MENDOZA [facility] Nov 07, 2017 3:01 PM Received from: [facility] ATENOLOL 50 MG TABLET >> Caprice [place] 11/07/2017 3:02 PM >> CAPRICE MENDOZA [facility] Nov 07, 2017 3:02 PM Received from: [facility] LISINOPRIL 20 MG TABLET >> Caprice [place] 11/07/2017 3:02 PM >> CAPRICE MENDOZA [facility] Nov 07, 2017 3:02 PM Received from: [facility] VITAMIN C ORAL >> Caprice [place] 11/07/2017 3:00 PM >> CAPRICE MENDOZA [facility] Nov 07, 2017 3:00 PM [facility] CtrProblem List As Of Date 11/07/2017 Noted Resolved Lymphopenia [D72.810] INVALID FOR*Encounter Status:Closed by WAYNE PAULA MD on 11/12/17Normal [facility] Metabolic Panelon 09-32-1202Ebhhmep aminotransferase (ALT)17 U/LNormal7-38[facility] on above:Performed By: #### LD6, CMP ####[facility] [address] [place], [place] [phone] g/dLNormal3.9-4.9CH[facility] on above:Performed By: #### LD6, CMP ####[facility] [address] [place], [place] [phone] phosphatase (ALP)48 U/TGirhmf22-507IrxkhcnxmAshtabula County Medical Centerment on above:Performed By: #### LD6, CMP ####[address] [place] [address] [address] [phone] gap12 mmol/LNormal9-18As[facility]ula [facility] Medical Centerment on above:Performed By: #### LD6, CMP ####[address] [place] [address] [address] [phone] aminotransferase (AST)20 U/ZLoatjp19-30FfzxfivrlLakeHealth TriPoint Medical Center on above:Performed By: #### LD6, CMP ####[address] [address] [address] [phone] (total)0.3 mg/dLNormal0.2-1.3CSt. John of God Hospital Comment on above:Performed By: #### SOCO6, CMP ####[address] [address] [address] [phone] mg/dL Normal8.5-10.2CHocking Valley Community Hospital on above:Performed By: #### LD6, CMP ####[address] [address] [address] [phone] mmol/BCwkbml30-790LezgckureLakeHealth TriPoint Medical Center on above:Performed By: #### LD6, CMP ####[place] [address] [address] [phone] mmol/ETzwlsc30-52DxmcxondgLakeHealth TriPoint Medical Center on above:Performed By: #### LD6, CMP ####[address] [address] [address] [phone] mg/dL Normal0.58-0.96[facility] on above:Performed By: #### LD6, CMP ####[address] [address] [address] [phone] (non-black)mL/min/{1.73_m2}NormalLakeHealth TriPoint Medical Center on above:Result Comment: eGFR (Estimated GFR) Units of measure: mL/min/1.73 meters squaredeGFR is derived from the reexpressed MDRD Study equation using the following parameters: serum creatinine, age, genderand race. The creatinine assay has been calibrated to be traceable to IDMS.An eGFR <60 mL/min/1.73m2 for >3 months is consistent with chronic kidney disease. Refer to KDOQI guidelines for clinical interpretation.In patients with unstable renal function, e.g. those with acute kidney injury, the eGFR may not accurately reflect actual GFR.Performed By: #### LD6, CMP ####[facility], [place] [phone] mass conc92 mg/eQCblgkv50-31EiqcstfyyLakeHealth TriPoint Medical Center on above:Result Comment: The [place] Diabetes Association (ADA) provides guidance for cutoff values for fast ing glucose and random glucose. The ADA defines fasting as no caloric intake for at least 8 hours. Fasting plasma glucose results between 100 to 125 mg/dL indicate increased risk for diabetes (prediabetes).Fasting plasma glucose results greater than or equal to 126 mg/dL meet the criteria for diagnosis of diabetes. In the absence of unequivocal hyperglycemia, results should be confirmed by repeattesting. In a patient with classic symptoms of hyperglycemia or hyperglycemic crisis, random plasmaglucose results greater than or equal to 200 mg/dL meet the criteria for diagnosis of diabetes.Reference: Standards of Medical Care in Diabetes 2016, [place] [employer]. Diabetes Care. 2016.39(Suppl 1).Performed By: #### LD6, CMP ####[facility] [address] [place], [place] [phone] molar conc 4.4 mmol/LNormal3.7-5.1CHocking Valley [facility] Hospital on above:Performed By: #### LD6, CMP ####[facility] [address], [place] [phone] g/dLNormal6.3-8.0[facility] on above:Performed By: #### LD6, CMP ####[facility] [address] [place], [place] [phone] mmol/ECwbrkr882-949 [facility] on above:Performed By: #### LD6, CMP ####[facility], [place] [phone] pezyuhzf37 mg/dLNormal7-21[facility] on above:Performed By: #### LD6, CMP ####[facility], [place] [phone] 81-99-7767KW982 U/CVpbdch431-415 [facility] on above:Performed By: #### LD6, CMP ####[facility] [place], [place] [phone] 91-32-1659BBFNAXRTOUJ ID: [id number]: Wayne Malave: (none)Author Type: PhysicianType: Progress NotesFiled: [...] (PEPCID) 20 mg tablet Take 20 mg bymouth twice daily.alendronate (FOSAMAX) 35 mg tablet Take 35 mg by mouth once each week.acetaminophen (TYLENOL EXTRA STRENGTH) 500 mg tablet Take 500 mg by mouthevery 8 hours as needed.cholecalciferol, vitamin D3, (VITAMIN D-3) 400 unit cap Take 400 Units bymouth once daily.Multivitamin capsule Take 1 capsule by mouth once daily.B COMPLEX WITH VITAMIN C (B COMPLEX-C STRESS FORMULA ORAL) Take by mouth.Green Tea [place] Extract (GREEN TEA) cap Take by mouth.DIPHENHYDRAMINE HCL (BENADRYL ALLERGY ORAL) Take by mouth.No current facility-administered medications for this visit.REVIEW OF SYSTEMS:Constitutional: No fever, night sweats or unwanted weight loss. AppetitestableHead and neck: No recurrent sinus infectionsRespiratory: No cough or hemoptysis.Cardiovascular: No chest pain or palpitations.GI: No nausea, vomiting, diarrhea or GI bleed. No bloating or earlysatietySkin: No rash or lesions.PHYSICAL EXAMINATION:BP 150/70 Pulse 63 Temp 36.9 ?C (98.4 ?F) (Oral) Resp 18 Ht 149.5cm (4' 10.86 ) Wt 66.6 kg (146 lb 12.8 oz) SpO2 100% BMI 29.79 kg/y4QLKNHEDS EXAMINATIONGeneral: Alert and oriented, no distress, pleasant and cooperative.Heart: Regular, normal S1 and S2, no murmurs, rubs, or gallopsLungs: Clear to auscultation bilaterallyAbdomen: NT ND, no organomegalyExtremities: Feet/ankles without edema, posterior tibial pulses full andsymmetricalASSESSMENT/PLAN: Nata Pete is a 72 year old female withlymphopenia. No new medication changes at the time this was originallynoted. Feels well. Labs normal. Discussed possible causes of transientabnormality.Patient may followup with Dr. Dale at this time and canreturn as needed or if abnormality re-emerges.1. Lymphopenia-labs without lymphopenia-suspect this was transient-can follow up with Dr. Dale and RTC if abnormality recurs/persists orother abnormality developsAlfred Carolin Paula MDNormalCSt. John of God HospitalRemote CBCDIF (for [facility] use only)on 11-07-2017 Abs Baso0.03 k/uLNormal0.00-0.10[facility] HospitalAbs Mono0.53 k/uL Normal0.00-0.86[facility] HospitalAbs Neut3.83 k/uLNormal1.45-7.50 [facility] HospitalBasophils/100 WBC Auto (Bld)0.5 %NormalGrand Lake Joint Township District Memorial HospitalEosinophils0.31 10*3/uLNormal0.00-0.45[facility] Eosinophils/100 leukocytes5.1 %NormalGrand Lake Joint Township District Memorial HospitalErythrocyte distribution width Auto Ratio (RBC)13.4 %Qtxcvg19.5-15.0[facility] HospitalErythrocytes (RBC)4.11 10*6/uLNormal3.90-5.20[facility] Hematocrit (HCT)36.2 %Jimibe35.0-46.0[facility] HospitalHemoglobin mass conc (Bld)12.2 g/qEKgxghs51.5-15.5CSt. John of God HospitalLymphocytes1.42 10*3/uLNormal1.00-4.00[facility] HospitalLymphocytes/100 drsvipdchz30.2 % NormalGrand Lake Joint Township District Memorial HospitalMCH29.7 zTAuhzad82.0-34.0[facility] HospitalHC mass conc (RBC)33.7 g/vXHvudyp65.5-36.0[facility] MCV88.1 oJBgfhaq32.0-100.0[facility] HospitalMonocytes/100 leukocytes8.7 %NormalGrand Lake Joint Township District Memorial HospitalNeutrophils/100 WBC Auto (Bld)62.5 %Normal [facility] ClevelandPlatelet mean volume (PMV)10.4 fLNormal9.0-12.7 [facility] HospitalPlatelets211 10*3/fUJkgukf167-685OtecpbdwwGrand Lake Joint Township District Memorial HospitalWBC (Leukocytes)6.12 10*3/uLNormal3.70-11.00[facility] Vital Signs Date TimeVital SignValuePerforming LyllmnjwgAkoebgkf23-87-4885 15:18-0400Body askspl498.3 cmAisha Ragland PA Work Phone: [facility] HospitalWhcduwnrja16-37-6117 15:18-0400Body mass index (BMI) [Ratio]25.71 kg/s0KazcphaAisha Ragland PA Work Phone: [facility] HospitalVflxfexkcq55-22-1746 15:18-0400Body temperature 98.6 [degF]Aisha Ragland PA Work Phone: [facility] HospitalKcldrpwhuy08-34-9628 15:18-0400Body cxorpj44.79 kgAisha Ragland PA Work Phone: [facility] HospitalVqcrmtbwlp87-32-6358 15:18-0400Diastolic blood ninszrvq56 mm[Hg]Aisha Ragland PA Work Phone: [facility] HospitalXypfdovqng30-67-1431 15:18-0400Heart rate64 /min Aisha Ragland PA Work Phone: [facility] HospitalSlmcwihvkh51-54-6600 15:18-6122CxY8% (BldA) [Mass fraction]98 %Aisha Ragland PA Work Phone: [facility] HospitalAhljbupwyg73-23-2574 15:18-0400Systolic blood ndszkoxg146 mm[Hg]Aisha Ragland PA Work Phone: [facility] HospitalIttzyzqeud19-77-5859 13:16-0400Body ygdbsn710.78 cmAisha Ragland PA-C Work Phone: [facility]07-14-2025 13:16-0400 Body mass index (BMI) [Ratio]30 kg/s3HgkengxAisha Ragland PA-C Work Phone: [facility]07-14-2025 13:16-0400 Body gnuauj28 kgAisha Ragland PA-C Work Phone: [phone] [place], [place] 49[address]307-01-2025 15:11-0400 Body nlyxoo734.3 cmAisha Ragland PA Work Phone: [phone] [place], [place] [address]Veyoiadvvu16-87-5592 15:11-0400Body mass index (BMI) [Ratio]25.79 kg/h1TtlgbnzAisha Ragland PA Work Phone: [phone]07-01-2025 15:11-0400Body temperature 98.91 [degF]Aisha Ragland PA Work Phone: [phone] HospitalEipedwltwz32-82-0410 15:11-0400Body nyzjkz84.97 kgAisha Ragland PA Work Phone: [phone] HospitalXdxhhxzitr91-46-9164 15:11-0400Diastolic blood fjonhehf41 mm[Hg]Aisha Ragland PA Work Phone: [phone] HospitalMcwutmsfhd27-66-1961 15:11-0400Heart rate69 /min Aisha Ragland PA Work Phone: [phone] GrenadaNorth [facility] HospitalGtcdwabpke63-33-8510 15:11-7710RcC1% (BldA) [Mass fraction]96 %Aisha Ragland PA Work Phone: [phone]07-01-2025 15:11-0400Systolic blood vvawrfbx441 mm[Hg]Aisha Ragland PA Work Phone: 1(016)[address]06-08-2025 11:50-0400Body lyhvhc618.78 cmAisha Ragland PA-C Work Phone: 1(653)[address]06-08-2025 11:50-0400 Body mass index (BMI) [Ratio]30.2 kg/b1BonlxepAisha Ragland PA-C Work Phone: 1(878)[address]06-08-2025 11:50-0400 Body bgdquzcawlj22.2 [degF]Aisha Meagan PA-C Work Phone: 1(172)860-[facility]06-08-2025 11:50-0400 Body .5 kgDemondcristel Aroramers PA-C Work Phone: 1(558)[address]06-08-2025 11:50-0400 Diastolic blood ceebpwof65 mm[Hg]Aisha Ragland PA-C Work Phone: 1(157)666-[address] [place], [place] 9003106-08-2025 11:50-0400 Heart rate61 /Murrayketurah Meagan PA-C Work Phone: 1(337)[address]06-08-2025 11:50-0400 Respiratory rate18 /Zoraida Ragland PA-C Work Phone: 1(869)587-[address] [place], [place] 9003106-08-2025 11:50-0400 SaO2% (BldA) [Mass fraction]95 %Aisha Meagan PA-C Work Phone: 1(553)972-[address] [place], [place] 9003106-08-2025 11:50-0400 Systolic blood qerjdpni197 mm[Hg]Aisha Meagan PA-C Work Phone: 1(066)889-[address] [place], [place] 9003104-14-2025 16:00-0400 Body gseyzk156.3 cmCyamini Valentino DPM Work Phone: [facility]Nkikxorkqn70-17-6449 16:00-0400Body mass index (BMI) [Ratio]26.96 kg/e5Nndcyuqgcuc Bohach DPM Work Phone: [facility] HospitalVnjdiydtcd31-87-9459 16:00-0400Body iaeriy54.51 kgChaguilar Valentino DPM Work Phone: [facility] HospitalSvttyuovlt25-38-7646 16:00-0400Diastolic blood dlbgwwur55 mm[Hg]Tabitha Valentino DPM Work Phone: [facility] HospitalXpbvrztcsu29-61-7631 16:00-0400Heart rate69 /min Tabitha Valentino DPM Work Phone: [facility] HospitalLdnvbphtjq63-98-9648 16:00-0400Respiratory rate18 /minChlexiwojciechher Valentino DPM Work Phone: [facility] CenterZwxbzsfjoj56-88-5994 16:00-0400Systolic blood lexsblsi388 mm[Hg]Tabitha Valentino DPM Work Phone: [facility] HospitalNfphdizijr58-12-9161 15:48-0400Body orudxt976.3 cmAisha Ragland PA Work Phone: [facility] HospitalBtacjlttju55-14-2583 15:48-0400Body mass index (BMI) [Ratio]26.96 kg/n1HtaztnlAisha Ragland PA Work Phone: [facility] HospitalXcxxzuoiti07-82-9495 15:48-0400Body temperature 98.91 [degF]Aisha Ragland PA Work Phone: [facility] HospitalSinlltgujr54-95-5714 15:48-0400Body xewemb35.51 kgAisha Ragland PA Work Phone: [facility] HospitalIeadxniskw14-11-9512 15:48-0400Diastolic blood yriskeps08 mm[Hg]Aisha Ragland PA Work Phone: [facility] HospitalLkpiomlzyi46-57-2006 15:48-0400Heart rate68 /min Aisha Ragland PA Work Phone: [facility] HospitalNasmcnwzqn12-54-3053 15:48-5057PjV7% (BldA) [Mass fraction]98 %Aisha Ragland PA Work Phone: [facility] HospitalDhtgtxbghi08-95-5479 15:48-0400Systolic blood rycbcbqm999 mm[Hg]Aisha Ragland PA Work Phone: [facility] HospitalHwrywytshp96-45-3638 11:19-0500Body temperature 98.5 [degF]Aisha Ragland PA-C Work Phone: 1(419)[address] [place], [place] 8264802-27-2025 11:19-0500 Diastolic blood twiductx61 mm[Hg]Aisha Ragland PA-C Work Phone: 1(672)[address]02-27-2025 11:19-0500 Heart rate74 /Zoraida Ragland PA-C Work Phone: 1(222)[address] [place], [place] 8264802-27-2025 11:19-0500 Respiratory rate18 /Zoraida Ragland PA-C Work Phone: 1(785)[address] [place], [place] 8264802-27-2025 11:19-0500 SaO2% (BldA) [Mass fraction]97 %Aisha Ragland PA-C Work Phone: 1(868)[address] [place], [place] 8264802-27-2025 11:19-0500 Systolic blood ewaxnflc366 mm[Hg]Aisha Ragland PA-C Work Phone: 1(804)[address] [place], [place] 8264802-27-2025 04:11-0500 Body irnuhr30.1 kgDecristel Ragland PA-C Work Phone: 1(256)[address] [place], [place] 8264802-25-2025 11:05-0500 Inhaled oxygen flow rate1 L/Zoraida Ragland PA-C Work Phone: 1(457)[address] [place], [place] 8264802-25-2025 06:19-0500 Body pkwugh007.78 cmAisha Ragland PA-C Work Phone: [address] [place], [place] 8264802-06-2025 15:16-0500 Body .3 cmAisha Ragland PA Work Phone: [facility] HospitalTwtszvumax75-29-4403 15:16-0500Body mass index (BMI) [Ratio]26.96 kg/z0IpbvzrvAisha Ragland PA Work Phone: [facility] HospitalWgzjuyqxta50-06-5526 15:16-0500Body temperature 98.4 [degF]Aisha Ragland PA Work Phone: 1(419)668-[address] [place], [place] [address]Aotwqtyfhb05-71-4588 15:16-0500Body .51 kgAisha Ragland PA Work Phone: [facility] HospitalWhmvfxrinq21-27-0345 15:16-0500Diastolic blood ythhaext35 mm[Hg]Aisha Ragland PA Work Phone: [facility] HospitalSegkqpcbbo96-84-0746 15:16-0500Heart rate67 /min Aisha Ragland PA Work Phone: [facility] HospitalNyybleaqfh61-29-1923 15:16-4271VlT5% (BldA) [Mass fraction]98 %Aisha Ragland PA Work Phone: [facility] HospitalIrvnerumxq60-62-0412 15:16-0500Systolic blood mm[Hg]Aisha Ragland PA Work Phone: [facility] HospitalAdsyesxkvh13-70-7597 16:33-0500Body symgoj786.3 cmChristveronica Valentino DPM Work Phone: [facility] HospitalQgpinqmqtp52-75-6510 16:33-0500Body mass index (BMI) [Ratio]26.96 kg/m7Yuzppehcger Bohach DPM Work Phone: [facility] HospitalPcyriewvbb99-96-3062 16:33-0500Body .51 kgChristopher Jenkinsach DPM Work Phone: [facility] HospitalDalzqpliet54-10-3838 16:33-0500Diastolic blood odprmnmf08 mm[Hg]Tabitha Valentino DPM Work Phone: [facility] HospitalEbswohxhsp30-03-3585 16:33-0500Heart rate63 /min Tabitha Valentino DPM Work Phone: [facility] HospitalLgfbrnlqck34-74-1781 16:33-0500Systolic blood waxjfjtn178 mm[Hg]Tabitha Valentino DPM Work Phone: [facility] HospitalQrvttdcrbr68-43-7143 15:13-0500Body qqexfg296.[address]01-08-2025 15:13-0500Body mass index (BMI) [Ratio]27 kg/p3BipoitrpzWilson [address] [facility]01-08-2025 15:130500Body weight 56.[address]12-23-2024 14:46-0500Body ozhqig007.3 cmAisha PEREZ Work Phone: [facility] HospitalXsztwnqecy79-21-1263 14:46-0500Body temperature 98.4 [degF]Aisha Ragland PA Work Phone: [facility] HospitalSruuzoeykl52-44-3166 14:46-0500Diastolic blood ubzmxkyd79 mm[Hg]Aisha Ragland PA Work Phone: [facility] HospitalLoxqvtxjno99-75-9823 14:46-0500Heart rate68 /min Aisha Ragland PA Work Phone: [facility] HospitalCxtixnevti65-87-1352 14:46-1965IlJ0% (BldA) [Mass fraction]98 %Aisha Ragland PA Work Phone: [facility] HospitalFwdpfzurqg07-03-1797 14:46-0500Systolic blood hthzbduh684 mm[Hg]Aihsa Ragland PA Work Phone: [facility] HospitalIryekkqggs84-67-9704 14:010500Body [address]qlugy007.[address]11-23-2024 14:01-0500Body mass index (BMI) [Ratio]25.7 kg/e3QbipqjlcaWilson [address] [facility]11-23-2024 14:01-0500Body gebdvrywovi021.5 [degF][facility]11-23-2024 14:01-0500 [address]11-23-2024 14:01-0500 Diastolic blood xpgqjyqe93 mm[Hg][facility]11-23-2024 14:01-0500Heart rate74 /[place] [facility]11-23-2024 14:01-0500Respiratory rate16 /[place] [facility]11-23-2024 14:01-5609MmR6% (BldA) [Mass fraction]96 %[facility] 06-07-2024 14:01-0500Systolic blood wngieykg707 mm[Hg][facility]11-18-2024 15:46-0500Body hvonqh082.3 cmChrbradgeorgi Valentino DPM Work Phone: [facility] HospitalIfonnifnhx31-36-9732 15:46-0500Body mass index (BMI) [Ratio]26.96 kg/d5Ueelibqyyyi Bohach DPM Work Phone: [facility] HospitalMivnjjkgsr14-17-8139 15:46-0500Body kgvkit92.51 kgChristopher Jenkinsach DPM Work Phone: [facility] HospitalToqzzlvcgt84-59-5949 15:46-0500Diastolic blood mm[Hg]Tabitha Valentino DPM Work Phone: [facility] HospitalWpjmqcdjde57-95-4623 15:46-0500Heart rate65 /min Tabitha Valentino DPM Work Phone: [facility] HospitalHgabeablgi27-21-7304 15:46-0500Systolic blood vibjqksv642 mm[Hg]Tabitha Valentino DPM Work Phone: [facility] HospitalNrndxlzbbl58-65-3475 15:17-0400Body qcqhyd928.3 cmAisha Ragland PA Work Phone: [facility] HospitalEycqllbrkp83-59-5750 15:17-0400Body mass index (BMI) [Ratio]27.15 kg/m2MhdmzgjAisha Ragland PA Work Phone: [facility] HospitalPcvvfhzodk03-09-6995 15:17-0400Body temperature 98.4 [degF]Aisha Ragland PA Work Phone: [facility] HospitalEzbemskpqc70-97-2247 15:17-0400Body jkztyt93.92 kgAisha Ragland PA Work Phone: [facility] HospitalRkwpwjwfwb19-65-3124 15:17-0400Heart rate63 /min Aisha Ragland PA Work Phone: [place] [address]Uzadupznsq37-64-3234 15:17-1480OlV4% (BldA) [Mass fraction]95 %Aisha Ragland PA Work Phone: [facility] HospitalTnsvodclzk24-65-3086 16:17-0400Body hwvoog831.3 cmCyamini Aliceach DPM Work Phone: [facility] HospitalSzcypycxrw66-27-3847 16:17-0400Body mass index (BMI) [Ratio]25.71 kg/j1Zhnxkdqvcjd Bohach DPM Work Phone: [facility] HospitalTenytummai63-13-4422 16:17-0400Body lgefvd61.79 kgChristopher Bohach DPM Work Phone: [facility] HospitalTskduizopf10-45-1658 16:17-0400Diastolic blood zeeguwyh80 mm[Hg]Tabitha Valentino DPM Work Phone: [facility] HospitalWcacpnxjxe17-64-3147 16:17-0400Heart rate54 /min Tabitha Valentino DPM Work Phone: [facility] HospitalCecnfiyhvu84-00-9119 16:17-0400Systolic blood xsofzhaw594 mm[Hg]Christnormaer Bohach DPM Work Phone: [facility] HospitalOpdgphyivj88-91-1828 18:00-0400Diastolic blood xtzerbzg22 mm[Hg]PA-C Aisha Ragland Work Phone: [facility]08-26-2024 18:00-0400 Heart rate74 /minPA-C Aisha Ragland Work Phone: [facility]08-26-2024 18:00-0400 Respiratory rate18 /minPA-C Aisha Meagan Work Phone: [facility]08-26-2024 18:00-0400 SaO2% (BldA) [Mass fraction]98 %PA-C Aisha Ragland Work Phone: [facility]08-26-2024 18:00-0400 Systolic blood ktdapuwb176 mm[Hg]ISELA Ragland Work Phone: [facility]08-26-2024 15:27-0400 Body mtxcve485.78 cmPAEstiven Ragland Work Phone: [facility]08-26-2024 15:27-0400 Body odewgpyress25.5 [degF]ISELA Ragland Work Phone: [facility]08-26-2024 15:27-0400 Body .05 kgISELA Ragland Work Phone: [facility]2024 10:18-0400 Diastolic blood nptnaesj02 mm[Hg]Kaciglenys [place] [facility]2024 10:18-0400Heart rate66 /minAmanda [employer] [facility]2024 10:18-0400Mean blood dtbdhuoi73 mm[Hg]Kaciglenys [place] [facility]2024 10:18-0400 Respiratory rate14 /minAmanda [employer] [facility]2024 10:18-0400 Systolic blood gymncchy415 mm[Hg]Kaciglenys [place] [facility]03-18-2024 06:33-0400Heart rate78 /minNoah [place] [facility]03-18-2024 06:33-0400 Respiratory rate16 /minNoah Bryant [facility]03-18-2024 06:33-8443MfE8% (BldA) [Mass fraction]98 %Dillon Bryant [facility]03-18-2024 05:23-0400Body .7 [degF]Dillon Patelner [address]03-18-2024 05:23-0400 Diastolic blood ovuamkce15 mm[Hg]Dillon Bryant [address]03-18-2024 05:23-0400Heart rate74 /minDillon Patelner [address]03-18-2024 05:23-0400 Respiratory rate16 /minDillon Patelner [address] [place], [place] 7542203-18-2024 05:23-3571IyB2% (BldA) [Mass fraction]99 %Dillon Bryant [address] [place], [place] 7313003-18-2024 05:23-0400 Systolic blood pnusirgr311 mm[Hg]Dillon Hurtado [address] [place], [place] 7542201-30-2024 16:13-0500Body tftaqn656.4 cmAisha Ragland PA Work Phone: [facility] HospitalZeiqibalqi64-61-5646 16:13-0500Body mass index (BMI) [Ratio]25.82 kg/u1TmwokxuAisha Ragland PA Work Phone: [facility] HospitalObdlxrahuk26-97-9194 16:13-0500Body temperature 99.1 [degF]Aisha Ragland PA Work Phone: [facility] HospitalBlzhxjhzov63-40-9048 16:13-0500Body flufek29.97 kgAisha Ragland PA Work Phone: [facility] HospitalZinuhafxrn30-59-4171 16:13-0500Diastolic blood xyouktkz43 mm[Hg]Aisha Ragland PA Work Phone: [facility] HospitalQrsmlfders08-28-9607 16:13-0500Heart rate64 /min Aisha Ragland PA Work Phone: 1(419)[address]01-30-2024 16:13-0852LsV8% (BldA) [Mass fraction]97 %Aisha Meagan PA Work Phone: 1(605)[address] [place], [place] 9004401-30-2024 16:13-0500Systolic blood wvqxcvbo018 mm[Hg]Aisha Meagan PA Work Phone: 1(941)[address] [place], [place] 9004412-31-2023 14:58-0500Body .78 cmPA-C Aisha Meagan Work Phone: 1(069)[address] [place], [place] 8264812-31-2023 14:58-0500 Body pghufxgtsxx86.5 [degF]PA-C Aisha Meagan Work Phone: 1(592)[address] [place], [place] 8264812-31-2023 14:58-0500 Body qbfmni30.7 kgPA-C Aisha Meagan Work Phone: 1(526)[address] [place], [place] 8264812-31-2023 14:58-0500 Diastolic blood frnpirrl66 mm[Hg]PA-C Aisha Meagan Work Phone: 1(562)[address] [place], [place] 8264812-31-2023 14:58-0500 Heart rate63 /minPA-C Aisha Meagan Work Phone: 1(925)[address] [place], [place] 8264812-31-2023 14:58-0500 Respiratory rate18 /minPA-C Aisha Meagan Work Phone: 1(072)[address] [place], [place] 8264812-31-2023 14:58-0500 SaO2% (BldA) [Mass fraction]98 %PA-C Aisha Meagan Work Phone: 1(103)[address] [place], [place] 8264812-31-2023 14:58-0500 Systolic blood ecxpkncn705 mm[Hg]PA-C Aisha Meagan Work Phone: 1(793)[address] [place], [place] 8264812-06-2023 14:45-0500 Body asbzoa629.4 cmLisa Castillo Other [facility] [employer] Other 09-06-2023 13:30-0400Body jeupyc729.4 cmJustin Brittany Other [employer] Other 09-06-2023 13:30-0400Body mass index (BMI) [Ratio] 24.41 kg/x6Lmpvew Brittany Other [employer] Other 09-06-2023 13:30-0400Body iicxcy81.7 kgJustin Brittany Other [employer] Other 03-01-2023 13:45-0500Body .4 cmJustin Brittany Other [employer] Other 03-01-2023 13:45-0500Body mass index (BMI) [Ratio] 24.02 kg/u6Oovzid Brittany Other [employer] Other 03-01-2023 13:45-0500Body cmbzat16.79 kgJustin Brittany Other [employer] Other 03-23-2022 13:00-0400Body okllrp211.4 cmJustin Brittany Other [employer] Other 03-23-2022 13:00-0400Body mass index (BMI) [Ratio] 23.43 kg/n2Ahuvsj Brittany Other [employer] Other 03-23-2022 13:00-0400Body vtyfwl81.43 kgJustin Brittany Other [employer] Other Encounters Encounter DateEncounter TypeCare ProviderFacilityStart: 05-06-2025 End: 93-32-2776gsongulfssMgrzemwJeffrey Ragland PA-C Work Phone: [phone]-Mgmmerah Therapy [place]Start: 05-06-2025 End: 43-19-1496Nlulnownvb RecurringJuchanucey Soto DO-Physical Therapy [place]Start: 04-28-2025 End: 18-97-3278Smxjqy outpatient visit 25 minutesAisha PEREZ Work Phone: [facility] MedicineComment on above: Hypercholesteremia (Primary Dx); Controlled type 2 diabetes mellitus with diabetic polyneuropathy, 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 (HCC); Need for vaccination; Essential hypertensionStart: 04-28-2025 End: 78-55-5978gkylydbintFFTXTQS J SOMMERSNot AvailableStart: 04-28-2025 End: 74-48-4118Emmicp Chen PEREZ Work Phone: noProgress [facility] MedicineStart: 04-28-2025 End: 98-06-8566Npdgmu flowsNobrert PEREZ Work Phone: [facility] MedicineStart: 04-24-2025 End: 33-17-4385Vdyfsk OnlyXochitl Wang LPN Work Phone: [facility] POPULATION HEALTHComment on above:Chronic pain disorder (Primary Dx); Essential hypertensionStart: 04-21-2025 End: 84-06-1709Fmiiykpmd Result EncounterAisha PEREZ Work Phone: NOOA External Department UnsolicitedStart: 04-21-2025 End: 83-68-5293Xczsezimd Result EncounterAisha PEREZ Work Phone: noms External Department UnsolicitedStart: 04-15-2025 Registered RecurringJoão Soto DO-Physical Therapy [place]Start: 04-15-2025 End: 02-74-8009phgsqlvbwaXxdmlsqGreg Ragland PA-C Work Phone: [facility] Work Phone: Start: 04-15-2025 End: 74-56-4886Wtsunct encounter procedureJustin A BrittanyUPMC [facility] Work Phone: Start: 04-15-2025 End: 90-93-3411edkmfeakwgIqygypxGreg Ragland PA-C Work Phone: [facility] Work Phone: Start: 04-15-2025 End: 80-98-9350Yrelbgk encounter procedureJustin A Brittany DO-[facility] Start: 56-95-8544Haudhajkao RecurringJustin A Brittany DO-Physical Therapy [place]Start: 03-26-2025 End: 91-63-4471Hrzvcqhvc Result EncounterAisha PEREZ Work Phone: noms External Department UnsolicitedStart: 03-26-2025 End: 99-11-2136Mqlakkxqk Result EncounterAisha PEREZ Work Phone: noms External Department UnsolicitedStart: 03-19-2025 End: 58-38-6066MbwpabOmrtd M Ruggles MD Work Phone: NOVS POPULATION HEALTHComment on above:Essential hypertensionStart: 00-41-1416Ghqjaoxexl RecurringJustin A Brittany DO-Physical Therapy [place]Start: 03-18-2025 End: 49-04-8866mjwafavsdmQfxeqbr J Sommers PA-C Work Phone: [facility] Work Phone: Start: 03-18-2025 End: 95-93-8817Faellgu encounter procedureJustin A BrittanyUPMC [facility] Work Phone: Start: 03-18-2025 End: 70-92-4372Wnunrks encounter procedureJustin A Brittany DO-[facility] Start: 03-18-2025 End: 42-83-0292dhmhagdgbaFwxjaetGreg Ragland PA-C Work Phone: [facility] Work Phone: Start: 37-84-7720Cfhgyqycit RecurringJustin A Brittany DO-Physical Therapy [place]Start: 03-04-2025 End: 30-16-0023cpxeuijgzpVsdjreqGreg Ragland PA-C Work Phone: [facility] Work Phone: Start: 03-04-2025 End: 31-35-9795Ncarlevp Joesph Adams DO-LAB Path [facility] Start: 96-81-7499Zglbsqttwa RecurringJustin A Brittany DO-Physical Therapy [place]Start: 03-04-2025 End: 82-47-6613Dynknfqas Result EncounterGeneric External Data ProviderNOMS External Department UnsolicitedStart: 03-04-2025 End: 55-99-7388Bawpjbmtl Result EncounterGeneric External Data ProviderNOMS External Department UnsolicitedStart: 02-27-2025 End: 85-03-2782GidvgjKsiysrm [facility] MedicineComment on above: Chronic pain disorderStart: 02-06-2025 End: 98-38-3031UycxygBnwqa M Ruggles MD Work Phone: [facility] POPULATION HEALTHComment on above:Essential hypertensionStart: 01-26-2025 End: 06-72-7434hctdsayqvnCnkcsnaGreg Ragland PA-C Work Phone: [facility] Work Phone: Start: 01-26-2025 End: 21-66-0055Izlsbto encounter procedureJustin A Brittany [facility] Work Phone: Start: 81-23-1480Iyamxqvnjz RecurringJustin A Brittany DO-Physical Therapy [place]Start: 01-13-2025 End: 13-25-7471jmdmqsngeiSFEMJCZ J SOMMERSNot AvailableStart: 01-13-2025 End: 59-00-7870Xtrnrt outpatient visit 25 minutesAisha PEREZ Work Phone: noms NE FMComment on above:Bronchitis (Primary Dx); Controlled type 2 diabetes mellitus with diabetic polyneuropathy, 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 (HCC); GERD without esophagitis; Anemia due to folic acid deficiency, unspecified deficiency type; Breast screeningStart: 01-13-2025 End: 78-80-9646Yzdtbq flowsDiana Donnelly APPOINTMENT SETTER Work Phone: noms NE FMStart: 01-13-2025 End: 35-59-4413Jtsimw flowsDiana Donnelly APPOINTMENT SETTER Work Phone: noms [place] FMStart: 33-44-0897Tawdckiykj RecurringAisha Ragland PA-C Work Phone: [facility]-Physical Therapy [place]Start: 12-21-2024 End: 03-42-7643Crltzcbm Result EncounterPatricia Taylor Roberts APPOINTMENT SETTER Work Phone: noms External Department UnsolicitedStart: 12-21-2024 End: 88-40-8308Vjmrdhtp Result EncounterPatricia A Armando APPOINTMENT SETTER Work Phone: noms External Department UnsolicitedStart: 12-21-2024 End: 03-73-9892Biptdepu ReferredAisha Ragland PA-C Work Phone: [facility]-Lab [place] Work Phone: Start: 12-21-2024 End: 64-10-5398wvkelsytexGhrggmg J Sommers PA-C Work Phone: [facility] Work Phone: Start: 12-21-2024 End: 69-55-4214Wyrtrkv encounter procedureAisha Ragland PA-C Work Phone: [facility] Work Phone: Start: 15-60-3574Lcywmdkekf RecurringAisha Ragland PA-C Work Phone: [facility]-Physical Therapy [place]Start: 12-01-2024 End: 52-65-4663Alwkspr encounter procedureAisha Ragland PA-C Work Phone: [facility] Work Phone: Start: 11-05-2024 End: 42-71-5889Hvjoax-up encounterAisha PEREZ Work Phone: noms [place] FMStart: 10-27-2024 End: 09-17-4738Tseamwn encounter procedureChaguilar Valentino DPM Work Phone: noms [facility] PODIATRYComment on above:Diabetic polyneuropathy associated with type 2 diabetes mellitus (CMS/HCC) (Primary Dx); OnychomycosisStart: 10-27-2024 End: 28-66-1621xajltrbowrYGPEIZRFCBR J BOHACHNot AvailableStart: 10-25-2024 End: 87-04-8288Xejljwbjf Result EncounterAisha PEREZ Work Phone: noms External Department UnsolicitedStart: 10-25-2024 End: 21-65-8997Yaopymibh Result EncounterAisha PEREZ Work Phone: noms External Department UnsolicitedStart: 10-24-2024 End: 15-12-8847OqnhxsOycinjt J Sommers PA Work Phone: NOZT POPULATION HEALTHComment on above:Controlled type 2 diabetes mellitus with diabetic polyneuropathy, without long-term current use of insulin (CMS/HCC)Start: 10-20-2024 End: 94-10-1125Xyiqlfq encounter procedureAisha Ragland PA-C Work Phone: [facility] Work Phone: Start: 10-14-2024 End: 31-14-2261Ohwhjav encounter procedureAisha PEREZ Work Phone: NOMS NE FMComment on above:Medicare annual wellness visit, subsequent (Primary Dx); Dysuria; Essential hypertension (CMS/HCC); Chronic pain of right knee; Hospital discharge follow-upStart: 10-14-2024 End: 54-12-9443yoorsqseorRHJMYUR J SOMMERSNot AvailableStart: 09-22-2024 End: 09-12-5083swnhnbxhvlQkvzrsxGreg Ragland PA-C Work Phone: [facility] Work Phone: Start: 09-22-2024 End: 77-77-0302Rdijwcv encounter procedureAisha Ragland PA-C Work Phone: [facility] Work Phone: Start: 67-91-7991Etq-patient / Non-visitAisha Ragland PA-C Work Phone: [facility] Work Phone: Start: 09-09-2024 End: 12-64-5928Ujvgcbdla to same day surgery centerAisha Ragland PA-C Work Phone: [facility]Start: 09-09-2024 End: 36-70-0110bqlupmweqpUstgyrfGreg Ragland PA-C Work Phone: [facility] Work Phone: Start: 09-03-2024 End: 03-13-2972vkmlxoiybhJayfxeq J Sommers PA-C Work Phone: [facility] Work Phone: Start: 09-03-2024 End: 39-18-4803Njiphwwsu for other preprocedural examinationAisha Ragland PA-C Work Phone: [facility]tart: 09-03-2024 End: 36-04-7213Oxhzgex encounter procedureAisha Ragland PA-C Work Phone: [facility] Work Phone: Start: 09-03-2024 End: 08-90-4317Awqmhrg encounter procedureAisha Ragland PA-C Work Phone: [facility] Start: 09-03-2024 End: 51-84-2390mllxnaehwiZnimwef J Sommers PA-C Work Phone: [facility] Work Phone: Start: 09-01-2024 End: 43-52-0055Lkfjxynlhk RecurringAisha Ragland PA-C Work Phone: [facility]-Physical [facility] [place]: 85-92-1073Yfvhquwbcp RecurringAisha Ragland PA-C Work Phone: [facility] [place]: 09-01-2024 End: 24-79-6246ehgkbvwympZhpholt J Sommers PA-C Work Phone: [facility] Work Phone: Start: 08-26-2024 End: 76-07-1620Vshwisr encounter procedureAisha Ragland PA-C Work Phone: [facility] Work Phone: Start: 89-56-1592Oaqmokipo for preprocedural laboratory examinationJustraymundo SotoTgh [facility] Phys[facility] GroupStart: 08-26-2024 End: 09-67-3509IiciicSvgaqswZaire PALAFOX FMComment on above:Chronic pain disorderStart: 08-25-2024 End: 55-53-7097CajtwfBvzdkoa J Sommers PA Work Phone: [facility] HEALTHComment on above:Chronic pain disorderStart: 08-22-2024 End: 01-87-6378Ilhhncs encounter procedureAisha Ragland PA-C Work Phone: [facility] Rcv-Bky-Seekedpc Testing Work Phone: Start: 08-22-2024 End: 29-72-0360gtewfgwpedPukmtsq J Sommers PA-C Work Phone: [facility] Work Phone: Start: 14-45-3518Vjvrldzor for other preprocedural examinationJuchauncey Vazquez [facility] Physician GroupStart: 08-21-2024 End: 94-33-5511Xkholh outpatient visit 25 minutesAisha PEREZ Work Phone: noms [place] FMComment on above:Chronic pain of right knee (Primary Dx); Controlled type 2 diabetes mellitus with diabetic polyneuropathy, 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 (CMS/[facility]); Acute non-recurrent frontal sinusitis; Anxiety; Preop examinationStart: 08-21-2024 End: 15-69-0282kyntobdczgRJRVBSM J SOMMERSNot AvailableStart: 08-21-2024 End: 44-39-4505Eoxmen flowsheetAisha PEREZ Work Phone: noms [place] FMStart: 08-21-2024 End: 34-56-6599Xgrvdc flowsNorbert PEREZ Work Phone: noms [place] FMStart: 08-21-2024 End: 55-73-4060Nnzuhbanchwgv examination doneAisha PEREZ Work Phone: noms HealthcareStart: 08-11-2024 End: 10-77-8283wxaqsoelyqOJJITXJUFSC J BOHACHNot AvailableStart: 08-11-2024 End: 11-21-1897Anegosv encounter procedureChaguilar Valentino DPM Work Phone: noms WWW PODIATRYComment on above:Diabetic polyneuropathy associated with type 2 diabetes mellitus (CMS/HCC) (Primary Dx); OnychomycosisStart: 08-11-2024 End: 87-51-2900Igckov flowsheetChaguilar Valentino DPM Work Phone: noms WWW PODIATRYStart: 08-11-2024 End: 64-97-6237Fiqmkf flowsByron Valentino DPM Work Phone: noms WWW PODIATRYStart: 67-41-5854Vxqezxz encounter statusJoint Township District Memorial Hospitaltart: 47-74-1646Ijiuyiswmqyac examination doneAisha Ragland PA-C Work Phone: [facility] Hospitaltart: 07-23-2024 End: 44-22-0789unlcizscpvOvjzugzwmACMC [facility] Work Phone: Start: 07-23-2024 End: 45-06-4802Hdhlgwvkz for other preprocedural examinationJoint Township District Memorial Hospitaltart: 07-23-2024 End: 61-04-9804Ybzmwwm encounter procedureCataw[facility] Work Phone: Start: 07-14-2024 End: 49-35-4058JcokrqVjfxvnz J Sommers PA Work Phone: noms [place] FMComment on above:Controlled type 2 diabetes mellitus with diabetic polyneuropathy, without long-term current use of insulin (CMS/HCC)Start: 07-07-2024 End: 48-81-7988ofdavglxplHXIJULA J SOMMERSNot AvailableStart: 07-07-2024 End: 01-03-7007Qtwqyd outpatient visit 25 minutesAisha PEREZ Work Phone: noms [place] FMComment on above:Reactive depression (CMS/HCC) (Primary Dx); Raynaud's disease without gangrene; Osteoarthritis of multiple joints, unspecified osteoarthritis type; Chronic pain of right knee; Chronic pain disorderStart: 07-07-2024 End: 00-77-4710Uczmpk Chen PEREZ Work Phone: noms [place] FMStart: 07-07-2024 End: 98-43-7538Mrkohw flowsheetAisha PEREZ Work Phone: noms [place] FMStart: 06-25-2024 End: 39-29-1283HmkcacBsiwxValerio Hannah MD Work Phone: noms POPULATION HEALTHComment on above:Essential hypertension (CMS/HCC); Controlled type 2 diabetes mellitus with diabetic polyneuropathy, 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 (CMS/HCC)Start: 06-17-2024 End: 90-41-8156BsldtnJtwbxValerio Hannah MD Work Phone: noms POPULATION HEALTHComment on above:GERD without esophagitisStart: 06-07-2024 End: 66-46-6613Ursfjee encounter procedureFirkahlotuss Physician Group-[facility] Work Phone: Start: 06-02-2024 End: 89-39-6030zezyxohbgwUUDGQWVBECI J BOHACHNot AvailableStart: 06-02-2024 End: 63-14-2921Irgsjod encounter procedureChaguilar Valentino DP Work Phone: noms [facility] PODIATRYComment on above:Diabetic polyneuropathy associated with type 2 diabetes mellitus (CMS/HCC) (Primary Dx); OnychomycosisChronic pain disorderStart: 05-24-2024 End: 11-42-0574LohygdEczvlppDar PEREZ Work Phone: noms POPULATION HEALTHComment on above:Reactive depression (CMS/HCC)Start: 04-24-2024 End: 66-61-0971Mxusvi outpatient visit 25 minutesAisha PEREZ Work Phone: noms NE FMComment on above:Need for immunization against influenza; Controlled type 2 diabetes mellitus with diabetic polyneuropathy, 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 (CMS/HCC); Chronic pain disorderStart: 04-23-2024 End: 06-67-8076anpdsieejcJT-Ash Ragland Work Phone: [facility] Work Phone: Start: 04-23-2024 End: 10-00-8919Warepab encounter procedurePA-Ash Ragland Work Phone: [facility] Work Phone: Start: 04-22-2024 End: 25-34-0343MbxlifQgfchValerio Hannha MD Work Phone: noms POPULATION HEALTHComment on above:GERD without esophagitisStart: 03-24-2024 End: 36-33-3651Skvuiwq encounter procedureChaguilar Valentino DPDuncan Work Phone: noms WWW PODIATRYComment on above:Diabetic polyneuropathy associated with type 2 diabetes mellitus (CMS/HCC) (Primary Dx); OnychomycosisStart: 03-24-2024 End: 10-30-4869Oehszx flowsheetChaguilar Valentino DPM Work Phone: noms WWW PODIATRYStart: 03-24-2024 End: 80-58-3231Jrumos flowsheetChaguilar Valentino DPM Work Phone: noms WWW PODIATRYStart: 03-13-2024 End: 04-44-3910Uasfkq outpatient visit 15 minutesAisha PEREZ Work Phone: noms NE FMComment on above:Reactive depression (CMS/HCC) (Primary Dx); AnxietyStart: 03-10-2024 End: 53-50-6495Omzajosac department patient visitANA-Ash Ragland Work Phone: [facility] Work Phone: Start: 12-19-2023 End: 79-54-3259cugpmsyfccGhzavczmfOhioHealth Mansfield Hospital Work Phone: Start: 12-19-2023 End: 89-05-2846Uvgkuqr encounter procedureCatawba [facility] Work Phone: Start: 73-41-7902Sxyabmv encounter procedure Tabitha Valentino DPM Work Phone: NOTH HealthcareStart: 10-17-2023 End: 14-46-4132jdegqwftxqCsdrnt SpringerFacility:FTMCStart: 10-17-2023 End: 31-24-0220sytwedmbwqUujbzwg J SOMMERSFacility:FTMCStart: 10-17-2023 End: 13-81-1084Stibgpz encounter procedureAmanArkansas Valley [facility] Start: 10-17-2023 End: 71-37-8081Grad ManagementUniversity Of Colorado Hospital [facility] Start: 10-01-2023 End: 29-68-5952Gtmfydtds department patient visitDillon HurtadoFacility:WW [facility] Start: 10-01-2023 End: 34-39-6844Zgejmyzix department patient visitDillon Hurtado [facility] Start: 08-14-2023 End: 63-04-4034Aafxzv outpatient visit 25 minutesAisha PEREZ Work Phone: [facility] FMComment on above:Chronic pain disorder (Primary Dx); Controlled type 2 diabetes mellitus with diabetic polyneuropathy, 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 ([facility])Start: 07-15-2023 End: 69-39-2449Wuwlnbcgx department patient visitISELA Ragland Work Phone: [facility] Work Phone: Start: 06-26-2023 End: 46-80-8264jkwqftdzwaOexpvy Kelley Other [facility] [employer] Other Start: 08-00-5439Bsfrjxipl encounterJustin LoraG [facility]opedicsStart: 06-20-2023 End: 73-09-4938lfwjmolgnoCiupgvdx [place] Other [employer] Other Start: 99-40-7013Wptdur outpatient visit 25 minutes Lisa CastilloFPG [facility] OrthopedicsStart: 06-11-2023 End: 57-94-2367oetrpvyncvHpyrbz Brittany Other [employer] Other Start: 44-15-4661Pilmcwume encounterJustin BrittanyFPG [facility]opedicsStart: 03-21-2023 End: 85-41-6623hxalumodlkGdiefc Brittany Other [employer] Other Start: 68-50-2328Aoopfv outpatient visit 25 minutes João PaulinoG [facility] OrthopedicsStart: 02-12-2023 End: 70-71-4869ywsjifyjajQbfveo Brittany Other [employer] Other Start: 01-31-6549Aktbxzuep encounterJustin BrittanyFPG [facility]opedicsStart: 51-45-3964Gpaoph outpatient visit 15 minutesJustin KelwellingtonFPG [facility]icsStart: 09-13-2022 End: 12-11-5241ufyokygmwxNV-C Aisha Ragland Work Phone: [facility] Work Phone: Start: 09-13-2022 End: 43-68-3232Xfzbvji encounter procedureISELA Ragland Work Phone: [facility] Start: 06-14-2022 End: 52-18-2891urtrfnalhdDvgrmj Brittany Other [employer] Other Start: 26-19-6796Ofppcmk encounter procedureJustin Gurjit Mc OrthopedicsStart: 06-12-2022 End: 05-78-1078axrounwbxvHjzqfmy Ariela Other [employer] Other Start: 74-23-8430Csohoogpg encounterColleen Keny Mc OrthopedicsStart: 02-23-2022 End: 78-42-7126colasxvdgrWDMMXTZ SOMMERSFacility:B5Hmoqz: 10-05-2021 End: 62-36-0950acfwmczssoVcload Kelley Other [employer] Other Start: 40-68-1757Msdqoy outpatient new 30 minutes João LoraG [facility] OrthopedicsStart: 06-29-2021 End: 49-05-4580iqimwnauxdVsgusuh Calvey Other [employer] Other Start: 06-69-2045Kanpio outpatient visit 25 minutes Vicky Keny Mc OrthopedicsStart: 55-63-8437Xlezdi outpatient visit 15 minutesColleen AnjelG [facility] OrthopedicsStart: 03-28-2021 End: 41-87-4534lnanhsmuabPGEBGGE SOMMERSFacility:K7Elgeq: 11-07-2017 End: 17-03-5949PiqqyjgfzqJTLSAU P ABRAZO SCOTTSDALE CAMPUSGASCSt. John of God HospitalStart: 02-20-2017 End: 98-29-7277HleeijxdquUBYQIUG PHYSICIANFacility:[facility] Procedures DateProcedureProcedure DetailPerforming ClinicianStart: 52-97-4279Dekcfzwiqg glycosylated r8tHnzsskiAisha PEREZ Work Phone: start: 80-98-6954QZ [facility]ESIS DIAGNOSTIC RTAisha PEREZ Work Phone: start: 74-09-6602M-ray of right knee, three views Aisha PEREZ-C Work Phone: start: 58-28-2435Onafemavn mammography bi 2-view breast inc cadNinaodilon Jefferson Meagan PEREZ Work Phone: start: 48-78-2219X-ray of right knee, three views Aisha PEREZ-C Work Phone: Start: 08-23-8122PTLVF CULTURE - [facility]INGFISHERGeneric External Data ProviderStart: 91-07-3097Aocxr cultureDketurah PEREZ-C Work Phone: start: 59-29-4230Csudchlk blood count with white cell differential, automatedAisha PEREZ Work Phone: start: 01-13-2025 End: 49-41-2260Plhwodkbqnwlp metabolic panelAisha PEREZ Work Phone: start: 83-12-1714Mhisf cultureDcezarleela Meagan PA-C Work Phone: start: 51-40-1159Dllqzmh bacterial quanttative colony count urinePatricia Taylor Armando APPOINTMENT SETTER Work Phone: Start: 88-42-0821WZD CBC WITH AUTO DIFFAisha PEREZ Work Phone: start: 06-20-1486Nxzng replacement of right knee joint Aisha PEREZ-C Work Phone: start: 46-79-9169N-ray of right knee, two viewsAisha PEREZ-C Work Phone: start: 52-03-7942Ciigv X-ray of bilateral femurs Aisha PEREZ-C Work Phone: start: 19-77-2925Cysby X-ray of bilateral tibia and bilateral fibulaAisha Ragland PA-C Work Phone: start: 62-79-0038B-ray of cervical spineDecristel Meagan PA-C Work Phone: start: 46-26-8511Xdiqjjjxdu glycosylated f2rInvgpaq J Meagan PEREZ Work Phone: start: 56-96-8766Xdvlydgqez glycosylated h9vBvbuiut J Meagan PEREZ Work Phone: start: 31-66-2155Uockv X-ray of right shoulderPA-C Aisha Aroramers Work Phone: start: 52-27-1396W-ray of both knees, three viewsPA-C Aisha Aroramers Work Phone: start: 12-65-7461Qnbad chest X-rayPA-C Aisha Aroramers Work Phone: start: 96-13-6966Ckife albumin quantitativeDemondcristel Jefferson Meagan PEREZ Work Phone: start: 47-48-4047Jikdkbwnsy glycosylated s4bKikhdqp J Meagan PEREZ Work Phone: start: 16-13-3147Oksav X-ray of right shoulderPA-C Aisha Aroramers Work Phone: appendectomyDillon Hurtado Arthroplasty of right hip jointNo Bryant CholecystectomyPeacehealth Bryant Pathological fracture of left hip due to osteoporosis (disorder)Dillon Bryant TonsillectomyPeacehealth Schedule Savvy Plan of Treatment DateCare ActivityDetailAuthorStart: 04-01-2026Medicare Annual Wellness (AWV) Medicare Annual Wellness (AWV)[facility]OM[facility] HealthcareStart: 15-16-9714Kylqkzrexz A1c measurementDiabetes: Hemoglobin C3YLDQG HealthcareStart: 04-28-2025 End: 76-49-6569Vhqedpd encounter procedureNOElizabeth Mason InfirmaryComment on above:ArrivedStart: 04-28-2025 End: 63-93-0245ISX W Auto Differential panel - BloodCBC and differential Lab Routine Controlled type 2 diabetes mellitus with diabetic polyneuropathy, w ithout long-term current use of insulin (HCC) Essential hypertension Expected: 04/28/2025 (Approximate), Expires: 04/28/2026[facility] Healthcare Work Phone: comment on above:Expected: 04/28/2025 (Approximate), Expires: 04/28/2026Start: 04-28-2025 End: 91-70-0228Uvtflqaltfsyw metabolic 2000 panel - Serum or PlasmaComprehensive metabolic panel Lab Routine Controlled type 2 diabetes mellitus with diabetic polyneuropathy, without long-term current use of insulin (HCC) Essential hypertension Expected: 04/28/2025 (Approximate), Expires: 04/28/2026[facility] HealthcareComment on above:Expected: 04/28/2025 (Approximate), Expires: 04/28/2026Start: 04-28-2025 End: 61-22-6919Prjni 1996 panel - Serum or PlasmaLipid panel Lab Routine Hypercholesteremia Expected: 04/28/2025 (Approximate), Expires: 04/28/2026[facility] HealthcareComment on above:Expected: 04/28/2025 (Approximate), Expires: 04/28/2026Start: 04-28-2025 End: 41-79-0445RYD REFLEX TO T4FTSH REFLEX TO T4F Lab Routine Controlled type 2 diabetes mellitus with diabetic polyneuropathy, without long-term current use of insulin (HCC) Essential hypertension Expected: 04/28/2025 (Approximate), Expires: 04/28/2026[facility] HealthcareComment on above:Expected: 04/28/2025 (Approximate), Expires: 04/28/2026Start: 77-78-0862Zffpnmbxqk A1c measurement Diabetes: Hemoglobin T2OVBAH HealthcareStart: 92-30-4307Y-ray of right knee, three viewsXR knee RT 3V - NOT FOR ER USEJoint Township District Memorial Hospitaltart: 99-61-0344KG Knee - right 3 ViewsJoint Township District Memorial Hospitaltart: 03-31-2025 End: 15-55-9855Slwebeh encounter dkweywmca02/16/2025 2:40 PM EDT Office Visit [facility] [place] [facility] [address] [place] [address] Aisha Ragland PA [address] [place] [address] [facility]OSPITALLily [place] [facility] MedicineStart: 33-57-7441B-ray of right knee, three viewsXR knee RT 3V - NOT FOR ER USEWilson [facility] Start: 32-96-3123JB Knee - right 3 ViewsJoint Township District Memorial Hospitaltart: 38-83-2727Lbswprhcd vaccinationInfluenza Vaccine (#1)[facility] HealthcareStart: 91-27-3245Qdkfy cultureJoint Township District Memorial Hospitaltart: 03-04-2025 Bacteria identified in Urine by CultureUrine CultureJoint Township District Memorial Hospitaltart: 02-10-2025 End: 28-10-3713Jrfkqmy encounter ypggsrmoj54/29/2025 4:30 PM EDT Procedure Visit [facility] [address] [place] [address] Tabitha Valentino, DPM [address] [place], [place] [id number] [facility] PodiatryStart: 01-26-2025 End: 99-64-0178Jwvphpt encounter etutarvmj69/14/2025 4:00 PM EDT Procedure Visit [facility] [address] [place] [address] Tabitha Valentino, DPM [address] [place] [address] [facility] WWW PODIATRYStart: 01-13-2025 End: 42-66-9406Ytrfwkp encounter mednbsptj38/01/2025 3:20 PM EDT Office Visit [facility] [address] [place] [address] Yris Donnelly NP [address] [place] [address] [facility] CenterABBEY [facility] FMComment on above:ArrivedStart: 01-13-2025 End: 18-01-7828YVO Breast - bilateral screeningBilateral screening mammogram with tomosynthesis Imaging Routine Breast screening Expected: 01/13/2025, Expires: 01/13/2026[facility] Work Phone: comment on above:Expected: 01/13/2025, Expires: 01/13/2026Start: 01-06-2025 End: 22-08-7451Wggwqay encounter zoduvjelk17/24/2025 2:40 PM EDT Office Visit [facility] [place] [address] [place] [phone] Aisha Ragland PA [address] [place] [address] NOMS NE FMStart: 48-18-8880Qdnea [facility] Hospitaltart: 42-52-1216Kqerfcoi identified in Urine by [facility] Hospitaltart: 12-16-2024 End: 79-57-1989Qgyqayg encounter qtqyrtwja45/03/2025 3:30 PM EDT Office Visit [facility] [address] [place] [phone] Aisha Ragland, PA [address] [place] [address] NOMS NE FMStart: 89-60-4030Xcuofjuusm A1c measurementDiabetes: Hemoglobin A1C [facility] HealthcareStart: 10-27-2024 End: 08-42-0813Gblmdnu encounter jqbpytlkh79/14/2025 4:00 PM EDT Procedure Visit [facility] [address] [place] [address] Tabitha Valentino, SUNG [address] [place] [address] NOMS WWW PODIATRYStart: 10-20-2024 End: 69-84-8945Egxwhgz encounter /07/2025 4:00 PM EDT Procedure Visit [facility] [address] [place] [phone] Tabitha Valentino, SUNG [address] [place] [address] NOM[facility] WWW PODIATRYStart: 04-04-2025Medicare Annual Wellness (AWV)Medicare Annual Wellness (AWV)NOM HealthcareStart: 10-17-2024 Urine screening for proteinDiabetes: Urine Protein ScreeningNOCO Healthcare Start: 96-39-2088RravngmayJoint Township District Memorial Hospitaltart: 38-24-4414Jkkykgpo admissionJoint Township District Memorial Hospitaltart: 66-44-2177Osoke X-ray of bilateral femursXR femur [facility] Hospitaltart: 09-03-2024 Plain X-ray of bilateral tibia and bilateral fibulaXR tibia/fibula [facility] Hospitaltart: 51-40-6068T-ray of cervical spineXR cerv spine AP/LAT/FLX/EXTJoint Township District Memorial Hospitaltart: 73-17-2104QJ Cervical spine 4 ViewsJoint Township District Memorial Hospitaltart: 33-71-3679RP Femur - bilateral ViewsJoint Township District Memorial Hospitaltart: 54-04-6209GH Tibia and Fibula - bilateral [facility] Hospitaltart: 08-25-2024 End: 83-05-7176Ecvuwph encounter yowveltlz08/10/2025 3:00 PM EST Office Visit [facility] JAV[facility] [address] [place] [phone] Aisha Ragland PA [address] [place] [address] NOMLily NE FMStart: 08-21-2024 End: 29-11-3297Lnnigom encounter guzsogepp86/06/2025 3:00 PM EST Office Visit [facility] [place] [address] [place] [address] Aisha Ragland PA [address] [place] [address] GeraldineCO JAVY FMComment on above:ArrivedStart: 76-05-2172Qjfta screening for proteinDiabetes: Urine Protein ScreeningGUNNISON VALLEY [facility] HealthcareStart: 08-04-2024 End: 25-26-2774Swnzydm encounter yxcdxzxgv37/20/2025 4:00 PM EST Procedure Visit [facility] [address] [place] [address] Tabitha Valentino, SUNG [address] [place] [address] NOMS WWW PODIATRYStart: 14-28-8281Zaitxntjmk A1c measurementDiabetes: Hemoglobin L4RVLUO HealthcareStart: 06-02-2024 End: 50-48-2227Frgahrf encounter kqdbnocbx12/18/2024 3:30 PM EST Procedure Visit [facility] [address] [place] [address] Tabitha Valentino, DPDuncan [address] [place] [address] NOMS WWW PODIATRYStart: 05-26-2024 End: 93-51-0012Indnilw encounter kajjxpvwj53/11/2024 3:45 PM EST Procedure Visit [facility] [address] [place] [address] Tabitha Valentino DPM [address] [place] [address] NOM[facility] WWW PODIATRYStart: 14-55-2206Vpwfibbrgv A1c measurementDiabetes: Hemoglobin Z3VMXCJ HealthcareStart: 04-24-2024 End: 51-82-1421Oeuuiym encounter csoykjcfp34/10/2024 3:00 PM EDT Office Visit [facility] FM [address] [place] [phone] Aisha Ragland, PA [address] [place] [address] NOMS NE FMStart: 90-78-7330Voahl X-ray of right shoulderXR shoulder RT min 2V* [facility] Hospitaltart: 10-43-5293E-ray of both knees, three viewsXR knee BI 3V - NOT FOR ER USEJoint Township District Memorial Hospitaltart: 24-01-0788OP Knee - bilateral 3 ViewsJoint Township District Memorial Hospitaltart: 17-82-8745MU Shoulder - right ViewsJoint Township District Memorial Hospitaltart: 03-24-2024 End: 91-60-4315Qrdruzf encounter tzolvbnsi86/09/2024 4:15 PM EDT Procedure Visit [facility] [address] [place] [address] Tabitha Valentino, DPM [address] [place] [address] ArrivedNOCO WWW PODIATRYComment on above:ArrivedStart: 09-79-3378Dubvquylv vaccinationInfluenza Vaccine (#1)NOM HealthcareStart: 43-50-9648Fzhmqtit screeningDiabetes: Retinopathy ScreeningNOCO HealthcareStart: 05-15-2024Medicare Annual Wellness (AWV)Medicare Annual Wellness (AWV)NOM HealthcareStart: 90-03-6283Okchgdsbnr A1c measurementDiabetes: Hemoglobin A1C [facility] HealthcareStart: 09-28-2023 End: 28-77-4888Xhtvrrm encounter neuggqkjj88/15/2024 2:00 PM EDT Procedure Visit [facility] [address] [place] [address] Tabitha Valentino, DPM [address] [place] [address] [facility] PODIATRYPatient EducationAdams [facility] Work Phone: Patient referralAdams County Regional Medical Center [facility] Work Phone: Urine cultureWilson Street HospitalURINE CULTURE - [facility] Lab Routine 03/04/2025 8:15 PM EDTNOCO Healthcare Immunizations Immunization DateImmunizationNotesCare HonsftwuSnzuijml19-39-7308Dgfzdtdz, trivalent, recombinant, injectable influenza vaccine, preservative freeDeborah Meagan PA Work Phone: [facility] HospitalXvcfaovtuf09-36-3492Dctpvuvo, quadrivalent, recombinant, injectable influenza vaccine, preservative freeDeborah Meagan PA Work Phone: [facility] [place] [facility] HospitalTnrijlrvip30-82-5872arwtsxmik virus vaccine, unspecified formulationDacruz Donnelly APPOINTMENT SETTER Work Phone: [facility] [place] [facility] HospitalJgczxjxfig23-36-9496Xzjshizkg, High-dose Seasonal, Quadrivalent, Preservative FreeDeborah Meagan PA Work Phone: [place] [address]Gymsnievlj51-18-2065ooicxkegrbqy conjugate vaccine, 13 valentDeborah Meagan PA Work Phone: [place] [address]Mqbqindohv27-84-0512rewesfhnc virus vaccine, unspecified formulationChristopher Chelsy DPM Work Phone: [place] [address]Bzjdqbturg65-11-8105iesigasux, high dose seasonal, preservative-freeDeborah Meagan PA Work Phone: [place] [address]Tfyxkugves98-72-7753Teindxwlk, High-dose Seasonal, Quadrivalent, Preservative FreeDeborah Meagan PA Work Phone: [facility] [place] [facility] HospitalHtjfaandhx15-93-5341Dmkauhbam, High-dose Seasonal, Quadrivalent, Preservative FreeDeborah Meagan PA Work Phone: [facility] [place] [facility] HospitalLjvybkukeo07-68-4240Bsbownb -40 mgColleen Calvey Other [employer] Other [id number] -40 mgColleen Calvey Other [employer] Other [id number] polysaccharide vaccine, 23 valRenato Ragland PA Work Phone: [facility] [place] [facility] HospitalIzrbptzokh21-18-3315xxdjylg toxoid, reduced diphtheria toxoid, and acellular pertussis vaccine, adsorbedPA-C Aisha Ragland Work Phone: [facility]01-05-2021Kenalog -40 mgColleen [employer]vey Other [employer] Other [id number], high dose seasonal, preservative-Scot Ragland PA Work Phone: [facility] [place] [facility] HospitalVupnaishdw18-02-2403Gskyyevve, High-dose Seasonal, Quadrivalent, Preservative Scot Ragland PA Work Phone: [facility] [place] [facility] HospitalNosoclormc98-42-7736Fxkzvtj -40 mgColleen Calvey Other [employer] Other [id number] -40 mgColleen Calvey Other [employer] Other [phone] -40 mgColleen Calvey Other [employer] Other [id number], high dose seasonal, preservative-Scot Ragland PA Work Phone: [facility] [place] [facility] HospitalPvgdpitfsq67-09-9353nkdpapodi, high dose seasonal, preservative-Scot Ragland PA Work Phone: [facility] [place] [facility] HospitalAypoytoykx64-80-9850mfbgsdgkjmhr polysaccharide vaccine, 23 valRenato Aroramers PA Work Phone: [facility] [place] [facility] HospitalNtulkiimaq55-43-7534gpoczsfox, high dose seasonal, preservative-freeDeborah Meagan PA Work Phone: [facility] [place] [facility] HospitalQqelwmwhne26-99-7048flkovlndr, injectable, quadrivalent, preservative freeDeborah Meagan PA Work Phone: [facility] [place] [facility] HospitalFjxhublola64-92-5609uslitwcgu, high dose seasonal, preservative-freeDeborah Meagan PA Work Phone: [facility] [place] HospitalAmnrxiyjtw65-58-1202hqjhrxlqc, injectable, quadrivalent, contains preservativeDeborah Meagan PA Work Phone: [facility] [place] [facility] HospitalYiqframhmi68-68-7761oywqmfexr, injectable, quadrivalent, contains preservativeDemondborah Meagan PA Work Phone: [facility] [place] [facility] HospitalKpbkjkrjcu71-11-3415swbwwigxt virus vaccine, whole virusDeborah Meagan PA Work Phone: [facility] [place] [facility] HospitalBbmpmiihhn18-58-5527iilulhknz virus vaccine, whole virusDeborah Meagan PA Work Phone: [facility] [place] [facility] HospitalNEGATED: Highlighted row has not occurred!07-21-7466ahzwdnehd, high dose seasonal, ymgstnscixuf-csrrZE-F Aisha Meagan Work Phone: [facility] Payers DatePayer CategoryPayerPolicy [id number]-iet [id number] Health InsuranceAARP [id number] 2021Medicare (Managed Care) [facility] [id number]2-7897 DnjulvhB24N5P 2.160.1.50157[id number] [id number] 2.840.1.294025.3.57[id number] 2.16840.1.636218.3.579.2.08708-57-1490Lbphiuq66346427 2.16840.1.733887.3.579.2.47537-64-2449Bngtodz86861949 2.16840.1.701545.3.579.2.07870-51-9579Cdcnqzy50756616 2.16840.1.337721.3.579.2.[id number] 2.16840.1.951971.3.579.2.204414-17-6538Baogyhm27946701 2.16840.1.618441.3.579.2.845829-18-0259Hgmssan0405388 2.16840.1.614298.3.579.2.055169-17-7895Twqnrjt2228285 2..1.744229.3.579.2.838576-12-9547Lxmciuy0738849 2..1.567664.3.579.2.282950-34-3821Ggshaxj3110264 2..1.877560.3.579.2.936200-39-8723Gfnfwbj0224910 2..1.860996.3.579.2.862643-08-3025Cjsxevh2481469 2..1.696035.3.579.2.1259Medicare8MG1Q71XC25 0m8722kj-dko4-91t8-as9c-648f6psm09i9FswrxknUWRA/HFA/FAP WhjofiU026562 y15ak26z-8tlu-55qs-08fg-6502dg078g01Hqavatn40002663 2.0.1.807676.3.579.2.337Dxuihpg26907687 2..1.252394.3.579.2.531 Neopbff25086813 2..1.151939.3.579.2.167Psemtnn47865365 2..1.885071.3.579.2.193Spsfoca61303259 2..1.901399.3.579.2.531 Dqvdnbz37879465 2.0.1.877071.3.579.2.631Ubdgxdc70810530 2.0.1.982659.3.579.2.002Enqgaay83906260 2.0.1.636347.3.579.2.531 Rzvbsvr53282254 2.0.1.838939.3.579.2.551Gdwmrxy38249178 2.16.840.1.828524.3.579.2.531 Social History DateTypeDetailFacilityStart: 08-14-2023 End: 91-66-6789Gqf Assigned At [facility] [employer] Other Start: 07-24-2020 End: 95-14-2524Dakkmxk smoking status NHISNever smoked tobacco (finding) [facility] Hospitaltart: 47-59-4855Xgf [facility]igned [facility]: 65-70-4420Ufuqdhf use and exposure Smokeless tobacco non-userNOMS HealthcareStart: 08-14-2023 End: 93-70-4464Kunoywt intakeCurrent drinker of alcohol (finding)[facility] Start: 08-14-2023 End: 69-63-7389Ouczehw of Social functionNOMS HealthcareStart: 72-13-7730Navekex Comment1-2 drinks less than monthly in the past year, Caffeine intake: 2-3 cups per dayNOMS HealthcareStart: 76-36-4826Nsi Assigned At BirthNot on fileGUN[facility]LEY [facility] HealthcareStart: 07-23-2024 End: 33-65-5676KeuItezvi (finding)[facility] Hospitaltart: 53-91-4820DQKI Follow upSDOH Follow up[facility] Work Phone: Start: 48-31-2799EmbNeegsrPGKC Healthcare Medical Equipment Procedure CodeEquipment CodeEquipment Original TextEquipment IdentifierDates Arthroplasty, knee, total, minimally invasiveOrthopaedic cement, non-medicated ()[id number] FDAStart: 90-78-8855Jvzvehyljvjj, knee, total, minimally invasiveUncoated knee tibia prosthesis, metallic ()[id number] FDAStart: 20-84-1924Oxhqgymnmgns, knee, total, minimally invasiveUncoated knee femur prosthesis ()[id number] FDAStart: 15-79-6755Mqbgsybfekir, knee, total, minimally invasiveTibial insert()[id number] FDAStart: 47-05-5222Lqfvmuwmgyub, knee, total, minimally invasiveKnee stem ()[id number] FDAStart: 62-11-1818Kusgeljuelxc, knee, total, minimally invasivePolymer orthopaedic cement restrictor, non- bioabsorbable, sterile()[id number])[id number] FDAStart: 08-43-8879Dyfqrdrurgc bone screw, non-bioabsorbable, non-sterile ()[id number] FDAStart: 28-19-2546Cflirhggmli bone screw, non- bioabsorbable, non-sterile()[id number] FDAStart: 09-05-6189Lfjglhhuiba bone screw, non-bioabsorbable, non-sterile()[id number] FDAStart: 16-38-5979Oyyaqqyoisi bone washer, non-sterile()[id number] FDAStart: 13-22-396557683442Xirqf: 63-03-2649Rdccpkn (OneTouch Delica Plus Tjfgru30K) [facility] [id number]: 87-30-7857NOR DIRECTED ONCE [id number]: 29-35-5217OPD DIRECTED ONCE [id number]: 17-74-3802Lthgh Sugar Diagnostic (Onetouch Ultra Test) stripStart: 38-99-2672Zmdar Sugar Diagnostic (Onetouch Ultra Test) stripStart: 43-43-7474Qfhox Sugar Diagnostic (Onetouch Ultra Test) stripStart: 34-08-6517Loobd Sugar Diagnostic (Onetouch Ultra Test) stripStart: 12-21-2024 Blood Sugar Diagnostic (Onetouch Ultra Test) stripStart: 59-95-9249Leulp Sugar Diagnostic (Onetouch Ultra Test) stripStart: 80-47-9975Fyrun Sugar Diagnostic (Onetouch Ultra Test) stripStart: 81-29-7358Gasge Sugar Diagnostic (Onetouch Ultra Test) stripStart: 36-84-9294Dnavi Sugar Diagnostic (Onetouch Ultra Test) stripStart: 12-21-2024 Goals DatePatient GoalDesired Activity/State Functional Status SlqnXvcfykljcdDdyxwgNpekqjom83-26-4554Mgzjyejohz statusPatient Not at Baseline [facility] Work Phone: 1(128) 426-52390235152-71-9492Xspypjwelg StatusN/[facility]03-18-2024Functional StatusN/[facility] Mental Status VgohYbwivgwbitMqqdkvHytmrtyg70-88-9798Obzewvpik functionCognitive Status Patient at BaselineSelect [facility] Work Phone: Clinical Notes 04-15-2013 to 04-28-2025 Note Date & UhywSqheAhmacuoj79-69-6202 History of Present illness Narrative* ANA Whitlock - 04/28/2025 3:20 PM EDT Images from the original note were not included. Nata Pete is a 80 y.o. female presents with chief complaint of Leg Pain HPI: History of Present Illness The patient is a 80-year-old female who presents for a 3-month medication checkup. She has been experiencing shoulder discomfort, which she manages with a patch during therapy sessions. She received injections in her left shoulder on 03/16/2025 and has been informed that gel injections will be the next course of treatment. She has three more therapy sessions remaining. She has been receiving cortisone injections for several years. She reports weight gain and increased appetite, even though she is not overeating. She is uncertainabout the effectiveness of metformin in managing her condition. She acknowledges consuming foods that are not part of her usual diet. She believes her thrice-weekly therapy sessions are beneficial in maintaining her muscle mass. She also reports inadequate hydration. She has been making efforts to increase her physical activity at home, including road boss such as laundry and dishwashing. She has not yet attempted cooking but is considering using the microwave for simple meals like eggs.She has noticed changes in how her clothes fit and attributes this to her therapy sessions. She experienced an episode of feeling unwell during a therapy session, which led to an emergency room visit on 03/04/2025. She reported feeling cold and shaky, with a temperature of 103 degrees Fahrenheit. She was diagnosed with a urinary tract infection (UTI) and a viral infection and was prescribed antibiotics. A chest x-ray was performed to rule out any complications. She was also informed that her severe arthritis could contribute to high fevers. She has been experiencing leg swelling and has been advised to elevate her feet while seated. She is making efforts to increase her physical activity at home, including road boss such as laundry and dishwashing. She has been informed that her cholesterol levels have not been checked recently. She has not been fasting today. She has been feeling fatigued recently and is interested in having her blood count checked. She is on escitalopram for anxiety. PAST SURGICAL HISTORY: - Knee surgery (date unspecified) - Shoulder injections (ongoing) - ER visit for UTI and viral infection on 03/04/2025 FAMILY HISTORY Her father's younger sister had breast cancer in her late 50s and recovered after undergoing chemotherapy. MEDICATIONS: Current Outpatient Medications Medication Instructions Ascorbic Acid (VITAMIN C PO) Take by mouth atenolol (Tenormin) 25 MG tablet Take 1/2 (one-half) tablet by mouth once daily Blood Glucose Monitoring Suppl (ONE TOUCH [...] test strip USE DIRECTED ONCE DAILY HYDROcodone-acetaminophen ([place]) 5-325 MG tablet 1 tablet, Oral, 3 times daily PRN Lancets (OneTouch Delica Plus Ujlccg19C) misc lidocaine (Lidoderm) 5 % patch 1 patch, Daily lisinopril 20 MG tablet TAKE 1/4 (ONE-FOURTH) TABLET BY MOUTH TWICE DAILY LORazepam (ATIVAN) 0.5 mg, Oral, 2 times daily PRN metFORMIN (GLUCOPHAGE) 500 mg, Oral, Daily omega-3 (Fish Oil) 1200 MG capsule 1 capsule, Every 24 hours simvastatin (ZOCOR) 40 mg, Oral, Every 24 hours ALLERGIES: Allergies[1] Review of Systems General: Denies fever, chills, fatigue, PARK or weight loss/gain CV: Denies CP, palpitations or swelling in legs Resp: denies cough, SOB or wheezing GI: Denies abd pain/n/v/c/d Skin: Denies rash Neuro: Denies LH or dizziness Medical, Surgical, Family, and Social History reviewed. OBJECTIVE: Visit Vitals BP 128/70 (BP Location: Right arm, Patient Position: Sitting, BP Cuff Size: Adult) Pulse 64 Temp 98.6 F (Temporal) Ht 4' 10 Wt 123 lb SpO2 98% BMI 25.71 kg/m OB Status Hysterectomy Smoking Status Never BSA 1.51 m BP Readings from Last 3 Encounters: 04/28/25 128/70 01/13/25 126/84 10/27/24 126/59 Wt Readings from Last 3 Encounters: 04/28/25 123 lb 01/13/25 123 lb 6.4 oz 10/27/24 129 lb Physical Exam Physical Exam Cardiovascular: Regular rate and rhythm, no murmurs, rubs, or gallops Extremities: Swelling noted in legs Other: Weight is 123 pounds General: alert & oriented, NAD Head: NC/AT Oral Cavity: MMM Skin: warm, dry Heart: RRR, No m/r/g, S1S2 nml Lungs: CTA b/l Abdomen: soft, ND/NT, BS wnl Musculoskeletal: normal gait Extremities: no clubbing, cyanosis or edema Neurological: nonfocal Psych: mood/affect full range Results Labs - Hemoglobin A1c: 5.0 ASSESSMENT AND PLAN: Assessment & Plan 1. Shoulder pain: - She received a cortisone injection on 03/16/2025 and has been advised to wait before getting another injection. - The plan is to try a gel injection for longer relief. She will call to check if the insurance hasapproved the gel injection. 2. Diabetes Mellitus: - Her hemoglobin A1c level is currently at 5.0, which is an improvement from the previous reading of 5.3 in 01/2025. Her weight has decreased from 129 pounds in 10/2024 to 123 pounds today. - She will continue her current regimen of metformin. 3. Urinary Tract Infection (UTI): - She experienced a UTI in 02/2025, which was treated with antibiotics. She reported feeling cold and shaking, with a temperature of 103 degrees Fahrenheit. - A chest x-ray was performed to rule out any complications. 4. Leg swelling: - She has been advised to elevate her feet while seated. 5. Cholesterol management: - A lab order for cholesterol level testing will be provided, which she can take to [place] for completion. 6. Fatigue: - A complete blood count (CBC) and thyroid function tests will be ordered to investigate the cause of her fatigue. 7. Anxiety: - She is on escitalopram. Assessment/Plan Problem List Items Addressed This Visit Controlled type 2 diabetes mellitus with diabetic polyneuropathy, 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 (HCC) Relevant Orders POCT glycated hemoglobin, total docked device (Completed) CBC and differential Comprehensive metabolic panel TSH REFLEX TO T4F Essential hypertension Relevant Orders CBC and differential Comprehensive metabolic panel TSH REFLEX TO T4F Hypercholesteremia - Primary Relevant Orders Lipid panel Other Visit Diagnoses Need for vaccination Relevant Orders Flu vaccine, recombinant, preservative free (Completed) Health Maintenance Due Topic Date Due Diabetes: Retinopathy Screening 12/10/2023 Diabetes: Urine Protein Screening 10/17/2024 [1] Allergies Allergen Reactions Bee Venom Shortness of breath Bee Pollen Unknown Miconazole Unknown Tramadol Unknown documented in this encounterNorth [place] City HospitalHsshqhkdsr64-80-4941 History of Present illness Narrative* Xochitl Wang LPN - 04/24/2025 11:56 AM EDT Last RF 03/27/25, OV 04/28/25 <April 24, 2025, 11:58 - Xochitl Wang LPN> Pt calls to check on this medication again. Please send message to Maggi if after 2:30pm today as pt would like to know if it is called in. <April 24, 2025, 14:13 - Xochitl Wang LPN> * ANA Whitlock - 04/24/2025 11:56 AM EDT Sent in refill pain meds to pharmacy documented in this encounterNorth Kansas City HospitalTomkajbsda61-84-5429 Evaluation note* Diagnosis Onset Date Resolution Status Admit Date Avulsion fracture acuteSept2024 12:45pmPrimary osteoarthritis of left kneeacute March 18, 2025 12:45pmPrimary osteoarthritis of right kneeacuteSept2024 12:45pmPrimary osteoarthritis of right shoulderacuteSept2024 12:45pmStatus post total right knee replacementnoneactiveSept2024 12:45pmAvulsion fractureacuteOctober 2024 2:47pmPrimary osteoarthritis of left kneeacuteOct2024 2:47pmPrimary osteoarthritis of right knee acuteOctober 2024 2:47pmPrimary osteoarthritis of right shoulderacute April 15, 2025 2:47pmStatus post total right knee replacementnoneactive April 15, 2025 2:47pm [facility] Work Phone: 1(605) 936-473908-15-2025 Telephone encounter Note* Telephone Encounter - ANA Whitlock - 02/27/2025 2:27 PM EDT completed [place] HospitalFpowvhapyw26-77-4995 Miscellaneous Notes* Telephone Encounter - ANA Whitlock - 02/27/2025 2:27 PM EDT completed documented in this encounterNorth Kansas City HospitalAbfotephyt13-11-2384 Evaluation note* Diagnosis Onset Date Resolution Status Admit Date Primary osteoarthritis of left knee acuteJuly 2024 1:04pmPrimary osteoarthritis of right kneeacuteJuly 2024 1:04pmPrimary osteoarthritis of right shoulderacuteJuly 2024 1:04pm Status post total right knee replacementnoneactiveJuly 2024 1:04pmAvulsion fractureacuteSept2024 12:45pmPrimary osteoarthritis of left knee acuteSept2024 12:45pmPrimary osteoarthritis of right kneeacute March 18, 2025 12:45pmPrimary osteoarthritis of right shoulderacute March 18, 2025 12:45pmStatus post total right knee replacementnoneactive March 18, 2025 12:45pmAvulsion fractureacuteOctober 2024 2:47pmPrimary osteoarthritis of left kneeacuteOctober 2024 2:47pmPrimary osteoarthritis of right kneeacuteOctober 2024 2:47pmPrimary osteoarthritis of right shoulderacuteOctober 2024 2:47pmStatus post total right knee replacement noneactiveOctober 2024 2:47pm [facility] Work Phone: 1(925) 797-502007-01-2025 History of Present illness Narrative* ANA Whitlock [...] walker for mobility and has increased her dsg-zz-yqqaw repetitions from 5 to 12. She can [...] test strip USE DIRECTED ONCE DAILY HYDROcodone-acetaminophen ([place]) 5-325 MG tablet 1 tablet, Oral, 3 times daily Lancets (OneTouch Delica Plus Piafov88F) misc lidocaine (Lidoderm) 5 % patch 1 [...] Influenza Vaccine (1) 03/16/2025 documented in this encounterNorth Kansas City HospitalAutdjhgrmu00-58-8798 Evaluation note* Diagnosis Onset Date Resolution Status Admit Date Impacted cerumen of left ear acuteJune 2024 11:34amUTI (urinary tract infection)acuteJune 2024 11:34amPrimary osteoarthritis of left kneeacuteJuly 2024 1:04pmPrimary osteoarthritis of right kneeacuteJuly 2024 1:04pmPrimary osteoarthritis of right shoulderacuteJuly 2024 1:04pmStatus post total right knee replacementnoneactiveJuly 2024 1:04pm [facility] Work Phone: 1(778) 267-902206-08-2025 Evaluation note* Diagnosis Onset Date Resolution Status Admit Date Impacted cerumen of left ear acuteJune 2024 11:34amUTI (urinary tract infection)acuteJune 2024 11:34amPrimary osteoarthritis of left kneeacuteJuly 2024 1:04pmPrimary osteoarthritis of right kneeacuteJuly 2024 1:04pmPrimary osteoarthritis of right shoulderacuteJuly 2024 1:04pmStatus post total right knee replacementnoneactiveJuly 2024 1:04pmAvulsion fractureacuteSeptember 2024 12:45pmPrimary osteoarthritis of left kneeacuteSeptember 2024 12:45pm Primary osteoarthritis of right kneeacuteSeptember 2024 12:45pmPrimary osteoarthritis of right shoulderacuteSeptember 2024 12:45pmStatus post total right knee replacementnoneactiveSeptember 2024 12:45pm [facility] Work Phone: 1(808) 670-485405-19-2025 Evaluation note* Diagnosis Onset Date Resolution Status Admit Date Primary osteoarthritis of right knee acuteMay 2024 4:05pmStatus post total right knee replacementnoneactiveMay 2024 4:05pmImpacted cerumen of left earacuteJune 2024 11:34amUTI (urinary tract infection)acuteJune 2024 11:34amPrimary osteoarthritis of left kneeacuteJuly 2024 1:04pmPrimary osteoarthritis of right kneeacute Isabelle 2024 1:04pmPrimary osteoarthritis of right shoulderacuteJuly 2024 1:04pmStatus post total right knee replacementnoneactiveJuly 2024 1:04pm [facility] Work Phone: 1(862) 642-435204-14-2025 History of Present illness Narrative* Tabitha Valentino DPM - 10/27/2024 4:00 PM EDT Subjective Patient ID: Nata Pete is a 79 y.o. female who presents for Toenail Care. Had total knee replacement in Sep 09. was released from the [place] in [place] october 03 2024. States knee has healed [...] DAILY, Disp: 100 each, Rfl: 11 HYDROcodone-acetaminophen ([place]) 5-325 MG tablet, Take 1 tablet by mouth in the morning and 1 tablet in the evening and 1 tablet before bedtime., Disp: 90 tablet, Rfl: 0 Lancets (OneTouch Delica Plus Mobkwc51T) [facility], , Disp: , Rfl: lidocaine (Lidoderm) 5 [...] All of the nondystrophic nails were debrided Villanueva debr 2 distal documented in this encounterNorth Kansas City HospitalIbspoaztaj30-65-0051 Telephone encounter Note* Telephone Encounter - ANA Whitlock - 10/25/2024 2:24 PM EDT completed [place] HospitalTxtvllqfph04-01-4838 Miscellaneous Notes* Telephone Encounter - ANA Whitlock - 10/25/2024 2:24 PM EDT completed documented in this encounterNorth Kansas City HospitalUajzbyfheh09-75-4201 Evaluation note* Diagnosis Onset Date Resolution Status Admit Date Primary osteoarthritis of right knee acuteApril 2024 4:22pmStatus post total right knee replacementnoneactive Laura 2024 4:22pmPrimary osteoarthritis of right kneeacuteMay 2024 4:05pmStatus post total right knee replacementnoneactiveMay 2024 4:05pm Impacted cerumen of left earacuteJune 2024 11:34amUTI (urinary tract infection)acuteJune 2024 11:34am [facility] Work Phone: 1(355) 895-795704-01-2025 History of Present illness Narrative* ANA Whitlock - 10/14/2024 3:30 PM EDT Images from the original note were not included. Nata Pete is a 79 y.o. female presents with chief complaint of Medicare Annual Wellness Visit Subsequent and Hospital Follow-up (Follow up from SNF - [facility] completed TCM) HPI: Flowsheet Row Patient Outreach from 10/09/2024 in [facility] with Annika Espinoza MA Hospital Information ED, Hospital or Retirement Facility Discharge? Retirement Facility Discharge Date 10/03/24 Discharged To: Home Setting Retirement Facilities [facility] Engagement Admission Date 09/11/24 Medications Discharge medications reviewed and reconciled from hospital? No Appointments Does the patient have a primary care provider? Yes Does the patient have any upcoming specialty appointments? Yes Self Management Does patient have home health? yes What is the home health agency? 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 If additional pain management is needed, further adjustments will be considered. Assessment/Plan Problem List Items Addressed This Visit None Health Maintenance Due Topic Date Due Diabetes: Retinopathy Screening 12/10/2023 Medicare Annual Wellness (AWV) 10/17/2024 documented in this encounterNorth Kansas City HospitalUlrwejiogy07-36-5839 Evaluation note* Diagnosis Onset Date Resolution Status Admit Date Primary osteoarthritis of right knee acuteMarch 2024 12:54pmStatus post total right knee replacementnoneactive March 2024 12:54pmPrimary osteoarthritis of right kneeacuteApril 2024 4:22pmStatus post total right knee replacementnoneactiveApril 2024 4:22pm Primary osteoarthritis of right kneeacuteMay 2024 4:05pmStatus post total right knee replacementnoneactiveMay 2024 4:05pm [facility] Work Phone: 1([phone]) 309-391502-27-2025 Discharge summary Author Adrian Anne [facility] HospitalNote Date/TimeFebruary 2024 12:33pm [place] [address] Discharge Summary Signed Patient: Nata Pete MR#: [id number] : 1945 Acct:[id number] Age/Sex: 79 / F Adm Date: 5 Loc: Room: [address] [place] [address]: João Soto DO Copies to: Isela Whitlock, DO Adrian Anne DO~ Providers Date of Discharge: 09/11/24 Discharging [...] breath. Additionally, please call our office at [phone] should any of the followingoccur: wound bleeding [...] over time or it could last forever. MILAGROS bermeo (milagroinette): ? Wear them for 4 weeks on [...] laxatives as directed. ? You may take jqim-xrj-tsmvvhq Benadryl if itching occurs without a rash or hives. ? Icing and elevation will help relieve pain as well, do not underestimate the power of ice and elevation. We do recommend that you stop taking narcotic pain medications by 4-6 weeks after surgery and if necessary, continue to use anti-inflammatory medications such as Mobic (meloxicam), Celebrex (celecoxib), or an bimv-zdf-vzuwwoy medication (Aleve, Motrin, Ibuprofen, etc). Driving an [...] feel free to call our office at [phone]. You are a priority of ours and we will not be upset with you if you call. We would much rather you call to confirm aspects of your recovery pr ocess as opposed to possibly hindering your recovery with inappropriate care. We are committed to providing you with the best care possible. Dr. João Soto [facility] [address] [place] [address] [email or web address] Instructions: Know your Meds Prescriptions: Continued lorazepam [...] mg tablet 500 mg PO DAILY omega 5-lsb-sfc-fish oil [Fish Oil] 1,200 (144-216) mg capsule [...] % (Auto) 66.8, Lymph % (Auto) 16.6, [place] % (Auto) 11.4, Eos % (Auto) 4.6, Baso % (Auto) 0.6, Nucleat RBC Rel Count 0.0, Neut # (Auto) 3.7, Lymph # (Auto) 0.9 L, [place] # (Auto) 0.6, Eos # (Auto) 0.3, [...] signed by Adrian Anne DO> 09/11/24 1233 [facility] Work Phone: 1(100) 283-728602-27-2025 Progress note Author Adrian Anne [facility] [address] HospitalNote Date/TimeFebruary 2024 12:31pm [place] [address] Orthopedic Progress Note Signed Patient: Nata Pete MR#: [id number] : 1945 Acct:[id number] Age/Sex: 79 / F Adm Date: 5 Loc: Room: [address] [place] [address] Type: REG SDC Attending Dr: João Soto [...] MPV Neut % (Auto) Lymph % (Auto) [place] % (Auto) Eos % (Auto) Baso % (Auto) Nucleat RBC Rel Count Neut # (Auto) Lymph # (Auto) [place] # (Auto) Eos # (Auto) Baso # [...] % (Auto) 66.8 Lymph % (Auto) 16.6 [place] % (Auto) 11.4 Eos % (Auto) 4.6 Baso % (Auto) 0.6 Nucleat RBC Rel Count 0.0 Neut # (Auto) 3.7 Lymph # (Auto) 0.9 L [place] # (Auto) 0.6 Eos # (Auto) 0.3 [...] office with any questions or concerns Likely halfway facility. Await PT/OT eval's and input. Documented By: Adrian Anne DO 09/11/24 1230 Signed By: <Electronically signed by Adrian Anne DO> 09/11/24 1231 [facility] Work Phone: 1(803) 418-840102-27-2025 [id number] Discharge Summary Signed Patient: Nata Pete MR#: [id number] : 1945 Acct:[id number] Age/Sex: 79 / F Adm Date: Loc: 4N Room: [address] [place] [address]: João Soto DO Copies to: [...] breath. Additionally, please call our office at [phone] should any of the followingoccur: wound bleeding [...] over time or it could last forever. MILAGROS bermeo (stockinette): ? Wear them for 4 [...] laxatives as directed. ? You may take elym-rxn-xhwerow Benadryl if itching occurs without a rash or hives. ? Icing and elevation will help relieve pain as well, do not underestimate the power of ice and elevation. We do recommend that you stop taking narcotic pain medications by 4-6 weeks after surgery and if necessary, continue to use anti-inflammatory medications such as Mobic (meloxicam), Celebrex (celecoxib), or an zipi-kvr-yrwtcvq medication (Aleve, Motrin, Ibuprofen, etc). Driving an [...] feel free to call our office at [phone]. You are a priority of ours and we will not be upset with you if you call. We would much rather you call to confirm aspects of your recovery pr ocess as opposed to possibly hindering your recovery with inappropriate care. We are committed to providing you with the best care possible. Dr. João Soto [facility] [address] [place] [address] [email or web address] Instructions: Know your Meds Prescriptions: Continued lorazepam [...] mg tablet 500 mg PO DAILY omega 4-jkv-grd-fish oil [Fish Oil] 1,200 (144-216) mg capsule [...] % (Auto) 66.8, Lymph % (Auto) 16.6, [place] % (Auto) 11.4, Eos % (Auto) 4.6, Baso % (Auto) 0.6, Nucleat RBC Rel Count 0.0, Neut # (Auto) 3.7, Lymph # (Auto) 0.9 L, [place] # (Auto) 0.6, Eos # (Auto) 0.3, [...] DO 09/11/24 1232 Signed By: 09/11/[address] [facility]02-27-20[place] [address] Orthopedic Progress Note Signed Patient: Nata Pete MR#: [id number] : 1945 Acct:[id number] Age/Sex: 79 / F Adm Date: 5 Loc: 4N Room: 7I8155-3 Type: REG [facility] Attending Dr: João Soto DO Copies to: [...] MPV Neut % (Auto) Lymph % (Auto) [place] % (Auto) Eos % (Auto) Baso % (Auto) Nucleat RBC Rel Count Neut # (Auto) Lymph # (Auto) [place] # (Auto) Eos # (Auto) Baso # [...] % (Auto) 66.8 Lymph % (Auto) 16.6 [place] % (Auto) 11.4 Eos % (Auto) 4.6 Baso % (Auto) 0.6 Nucleat RBC Rel Count 0.0 Neut # (Auto) 3.7 Lymph # (Auto) 0.9 L [place] # (Auto) 0.6 Eos # (Auto) 0.3 [...] office with any questions or concerns Likely halfway facility. Await PT/OT eval's and input. Documented By: Adrian Anne DO 09/11/24 1230 Signed By: 09/11/[address] [facility] [address] [facility]02-26-2025 Progress note Author Adrian Anne [facility] HospitalNote Date/TimeFebruary 2024 9:44am [place] [address] Orthopedic Progress Note Signed Patient: Nata Pete MR#: [id number] : 1945 Acct:[id number] Age/Sex: 79 / F Adm Date: 5 Loc: 4N Room: [id number] Type: REG SDC Attending Dr: João Soto [...] MPV Neut % (Auto) Lymph % (Auto) [place] % (Auto) Eos % (Auto) Baso % (Auto) Nucleat RBC Rel Count Neut # (Auto) Lymph # (Auto) [place] # (Auto) Eos # (Auto) Baso # [...] % (Auto) 73.8 Lymph % (Auto) 11.8 [place] % (Auto) 12.5 Eos % (Auto) 1.8 Baso % (Auto) 0.1 Nucleat RBC Rel Count 0.1 Neut # (Auto) 4.6 Lymph # (Auto) 0.7 L [place] # (Auto) 0.8 Eos # (Auto) 0.1 [...] office with any questions or concerns Likely halfway facility. Await PT/OT eval's and input. Documented By: Adrian Anne DO 09/10/24 0942 Signed By: <Electronically signed by Adrian Anne DO> 09/10/2444 [facility] Work Phone: 1(851) 549-567102-26-2025 [place] [address] Orthopedic Progress Note Signed Patient: Nata Pete MR#: [id number] : 1945 Acct:[id number] Age/Sex: 79 / F Adm Date: 5 Loc: Room: [address] [place] [address] Type: REG [facility] Attending Dr: João Soto DO Copies to: [...] Labs: Laboratory Results - last 24 hr 02/09/09/24 09/09/24 11:04 17:31 19:51 Corrected WBC Uncorrected WBC Count RBC Hgb Hct MCV MCH MCHC RDW Plt Count MPV Neut % (Auto) Lymph % (Auto) [place] % (Auto) Eos % (Auto) Baso % (Auto) Nucleat RBC Rel Count Neut # (Auto) Lymph # (Auto) [place] # (Auto) Eos # (Auto) Baso # [...] % (Auto) 73.8 Lymph % (Auto) 11.8 [place] % (Auto) 12.5 Eos % (Auto) 1.8 Baso % (Auto) 0.1 Nucleat RBC Rel Count 0.1 Neut # (Auto) 4.6 Lymph # (Auto) 0.7 L [place] # (Auto) 0.8 Eos # (Auto) 0.1 [...] office with any questions or concerns Likely halfway facility. Await PT/OT eval's and input. Documented By: Adrian Anne DO 09/10/2442 Signed By: 09/10/[address] [facility]02-25-2025 Progress note Author João Soto [facility] HospitalNote Date/TimeFebruary 2024 1:50pm [place] [address] Orthopedic Progress Note Signed Patient: Nata Pete MR#: [id number] : 1945 Acct:[id number] Age/Sex: 79 / F Adm Date: 5 Loc: 4N Room: [address] [place] [address] Type: REG FLC Attending Dr: João Soto DO Copies to: [...] office with any questions or concerns Likely halfway facility. Await PT/OT eval's and input. Dr. João Soto [facility] [address] [place], [place] [id number] Documented By: João Soto DO 09/09/24 1347 Signed By: <Electronically signed by João Soto DO> 09/09/24 1350 [facility] Work Phone: 1(898) 506-285402-25-2025 [place] [address] Orthopedic Progress Note Signed Patient: Nata Pete MR#: [id number] : 1945 Acct:[id number] Age/Sex: 79 / F Adm Date: 5 Loc: Room: [address] [place] [address] [address]: [facility] Attending Dr: João Soto DO Copies [...] 09/09/24 13:30 09/09/24 13:30 09/09/24 13:30 09/09/24 13:09/09/24 11:05 Narrative: Patient seen evaluated on regular [...] office with any questions or concerns Likely halfway facility. Await PT/OT eval's and input. Dr. João Soto [facility] [address] [place] [address] Documented By: João Soto DO 09/09/24 1347 Signed By: 09/09/[address] [facility]02-19-2025 Evaluation note* Diagnosis Onset Date Resolution Status Admit Date Osteoarthritis of left knee acuteFebruary 2024 3:09pmOsteoarthritis of right kneeacuteFebruary 2024 3:09pmPre-op examacuteFebruary 2024 3:09pmPrimary osteoarthritis of left kneeacuteFebruary 2024 3:09pmPrimary osteoarthritis of right shoulder acuteFebruary 2024 3:09pmOsteoarthritis of right shoulderchronicFebruary 2024 3:09pmS/P total knee arthroplastydeletedFebruary 2024 5:51am Primary osteoarthritis of right kneeacuteMarch 2024 12:54pmStatus post total right knee replacementnoneactiveMarch 2024 12:54pmPrimary osteoarthritis of right kneeacuteApril 2024 4:22pmStatus post total right knee replacementnoneactiveApril 2024 4:22pm [facility] Work Phone: 1(587) 830-603402-13-2025 Miscellaneous Notes* Telephone Encounter - Shawna Velasquez NP - 08/28/2024 9:04 AM EST Rx sent on 08/26/24. documented in this [facility]02-13-2025 Telephone encounter Note* Telephone Encounter - Shawna Velasquez NP - 08/28/2024 9:04 AM EST Rx sent on 08/26/24. [facility] Work Phone: 1(523) 339-909702-11-2025 History of Present illness Narrative* Maggi Marquez LPN - 08/26/2024 8:47 AM EST Last refilled on 07/29/24. Last OV was 08/21/24. Narc refill- Charito refilled last time documented in this [facility]02-06-2025 History of Present illness Narrative* ANA [...] TABLET BY MOUTH EVERY DAY glucose blood (SportStreamTouch Ultra) test strip USE DIRECTED ONCE DAILY glucose blood (OneTouch Ultra) test strip USE DIRECTED ONCE DAILY HYDROcodone-acetaminophen ([place]) 5-325 MG tablet 1 tablet, Oral, 3 times daily Lancets (OneTouch Delica Plus Bbeufm84P) misc lidocaine (Lidoderm) 5 % patch 1 [...] 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 ([facility]) Relevant Orders POCT glycated hemoglobin, total docked device Health Maintenance Due Topic Date Due Diabetes: Retinopathy Screening 12/10/2023 Diabetes: Hemoglobin A1C 07/25/2024 documented in this encounterNorth [facility] HospitalIztuoabvon45-22-9279 History of Present illness Narrative* Tabitha Vlaentino DPM - 08/11/2024 3:45 PM EST Subjective [...] DAILY, Disp: 100 each, Rfl: 11 HYDROcodone-acetaminophen ([place]) 5-325 MG tablet, Take 1 tablet by mouth in the morning and 1 tablet in the evening and 1 tablet before bedtime., Disp: 90 tablet, Rfl: 0 Lancets (OneTouch Delica Plus Vvfdii49O) [facility], , Disp: , Rfl: lidocaine (Lidoderm) 5 % patch, Apply 1 patch topically Daily Remove & discard patch within 12 hours or as directed by ., Disp: , Rfl: lisinopril 20 MG tablet, [...] All of the nondystrophic nails were debrided Villanueva debr 2 distal documented in this [facility]01-08-2025 Evaluation note* Diagnosis Onset Date Resolution Status Admit Date Osteoarthritis of left knee acuteJanuary 2024 3:01pmOsteoarthritis of right kneeacuteJanuary 2024 3:01pmPre-op examacuteJanuary 2024 3:01pmOsteoarthritis of right shoulder chronicJanuary 2024 3:01pmOsteoarthritis of left kneeacuteFebruary 2024 3:09pmOsteoarthritis of right kneeacuteFebruary 2024 3:09pmPre-op examacuteFebruary 2024 3:09pmPrimary osteoarthritis of left kneeacute February 2024 3:09pmPrimary osteoarthritis of right shoulderacuteFebruary 2024 3:09pmOsteoarthritis of right shoulderchronicFebruary 2024 3:09pmS/P total knee arthroplastyacuteFebruary 2024 5:51am [facility] Work Phone: 1(300) 657-263401-08-2025 Evaluation note* Diagnosis Onset Date Resolution Status Admit Date Osteoarthritis of left knee acuteJanuary 2024 3:01pmOsteoarthritis of right kneeacuteJanuary 2024 3:01pmPre-op examacuteJanuary 2024 3:01pmOsteoarthritis of right shoulder chronicJanuary 2024 3:01pmOsteoarthritis of left kneeacuteFebruary 2024 3:09pmOsteoarthritis of right kneeacuteFebruary 2024 3:09pmPre-op examacuteFebruary 2024 3:09pmPrimary osteoarthritis of left kneeacute February 2024 3:09pmPrimary osteoarthritis of right shoulderacuteFebruary 2024 3:09pmOsteoarthritis of right shoulderchronicFebruary 2024 3:09pmS/P total knee arthroplastydeletedFebruary 2024 5:51amPrimary osteoarthritis of right kneeacuteMarch 2024 12:54pmStatus post total right knee replacementnoneactiveMarch 2024 12:54pm [facility] Work Phone: 1(232) 358-504401-02-2025 Miscellaneous Notes* Telephone Encounter - ANA [place] - 07/17/2024 9:57 AM EST completed documented in this encounterNOCameron Regional Medical CenterSbonchdhln06-73-1293 Telephone encounter Note* Telephone Encounter - ANA [place] - 07/17/2024 9:57 AM EST completed [facility] [place] [facility] HospitalHkhwjjpqnu33-96-7532 History of Present illness Narrative* ANA [place] [...] TABLET BY MOUTH EVERY DAY glucose blood (SportStreamTouch Ultra) test strip USE DIRECTED ONCE DAILY HYDROcodone-acetaminophen ([place]) 5-325 MG tablet 1 tablet, Oral, 3 times daily Lancets (SportStreamTouch Delica Plus Lfxxbo95R) misc lidocaine (Lidoderm) 5 % patch 1 [...] Diabetes: Retinopathy Screening 12/10/2023 documented in this [facility]12-12-2024 Telephone encounter Note* Telephone Encounter - ANA [place] - 06/26/2024 8:57 AM EST completed [facility] [place] [facility] HospitalGyebzjtxcy57-90-8118 Miscellaneous Notes* Telephone Encounter - ANA [place] - 06/26/2024 8:57 AM EST completed documented in this [facility]11-23-2024 Evaluation note* Diagnosis Onset Date Resolution Status Admit Date Acute lower respiratory infection acuteNovember 2023 1:46pmOsteoarthritis of left kneeacuteJanuary 2024 3:01pmOsteoarthritis of right kneeacuteJanuary 2024 3:01pmPre-op examacute July 23, 2024 3:01pmOsteoarthritis of right shoulderchronicJanuary 2024 3:01pm [facility] Work Phone: 1(392) 625-919911-23-2024 Evaluation note* Diagnosis Onset Date Resolution Status Admit Date Acute lower respiratory infection acuteNovember 2023 1:46pmOsteoarthritis of left kneeacuteJanuary 2024 3:01pmOsteoarthritis of right kneeacuteJanuary 2024 3:01pmPre-op examacute July 23, 2024 3:01pmOsteoarthritis of right shoulderchronicJanuary 2024 3:01pmOsteoarthritis of left kneeacuteFebruary 2024 3:09pmOsteoarthritis of right kneeacuteFebruary 2024 3:09pmPre-op examacuteFebruary 2024 3:09pmPrimary osteoarthritis of left kneeacuteFebruary 2024 3:09pmPrimary osteoarthritis of right shoulderacuteFebruary 2024 3:09pmOsteoarthritis of right shoulderchronicFebruary 2024 3:09pm [facility] Work Phone: 1(270) 343-717411-18-2024 History of Present illness Narrative* Tabitha Valentino [...] Disp: 90 tablet, Rfl: 3 glucose blood ([employer]connect [employer] Systemsuch Ultra) test strip, USE DIRECTED ONCE DAILY, Disp: 100 each, Rfl: 11 HYDROcodone-acetaminophen ([place]) 5-325 MG tablet, Take 1 tablet by mouth in the morning and 1 tablet in the evening and 1 tablet before bedtime., Disp: 90 tablet, Rfl: 0 Lancets (OneTouch Delica Plus Kgqwjq05J) [facility], , Disp: , Rfl: lidocaine (Lidoderm) 5 [...] All of the nondystrophic nails were debrided Villanueva debr 2 distal documented in this [facility]11-18-2024 Miscellaneous Notes* Telephone Encounter - ANA Whitlock - 06/02/2024 12:15 PM EST completed documented in this [facility]11-18-2024 Telephone encounter Note* Telephone Encounter - ANA [place] - 06/02/2024 12:15 PM EST completed [facility] HospitalYndjckhpie27-17-8841 Telephone encounter Note* Telephone Encounter - ANA [place] - 05/26/2024 9:13 AM EST completed [facility] [place] [facility] HospitalJjbcgevzds38-31-0410 Miscellaneous Notes* Telephone Encounter - ANA [place] - 05/26/2024 9:13 AM EST completed documented in this encounterNorth [facility] City HospitalRddrqlgktp59-46-3642 History of Present illness Narrative* ANA [place] [...] MOUTH EVERY DAY for 30 glucose blood (ModuleQ Ultra) test strip USE DIRECTED ONCE DAILY HYDROcodone-acetaminophen ([place]) 5-325 MG tablet 1 tablet, Oral, 2 times daily Lancets (SportStreamTouch Delica Plus Qstrto55O) misc lidocaine (Lidoderm) 5 % patch 1 [...] prescription will be sent to Bob in [place]. 3. Dental Issues. She has one more [...] Visit Chronic pain disorder Relevant Medications HYDROcodone-acetaminophen ([place]) 5-325 MG tablet Controlled type 2 diabetes mellitus with diabetic polyneuropathy, 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 ([facility]) Relevant Orders POCT glycated hemoglobin, total docked device (Completed) Other Visit Diagnoses Need for immunization against influenza Relevant Orders Flu vaccine, quadrivalent, recombinant, preservative free (Completed) Health Maintenance Due Topic Date Due Diabetes: Retinopathy Screening 12/10/2023 Influenza Vaccine (1) 03/16/2024 Diabetes: Hemoglobin A1C 04/29/2024 documented in this encounterNorth [facility] City HospitalPsysjfkqiz56-75-3652 History of Present illness Narrative* Tabitha Valentino [...] am Aggravated by shoe gear, pressure DLS 01-27- PCP Zuri Hannah MD ROS General: Chillsdenies. [...] Disp: 90 tablet, Rfl: 3 glucose blood (Interconnect [employer] Systemsuch Ultra) test strip, USE DIRECTED ONCE DAILY, Disp: 100 each, Rfl: 11 HYDROcodone-acetaminophen ([place]) 5-325 MG tablet, Take 1 tablet by mouth in the morning and 1 tablet before bedtime., Disp: 60 tablet, Rfl: 0 Lancets (Interconnect Media Network Systemsuch Delica Plus Swnxel85Y) [facility], , Disp: , Rfl: lidocaine (Lidoderm) 5 [...] nondystrophic nails were debrided documented in this encounterNorth Kansas City HospitalQaemtsrhct50-73-0830 History of Present illness Narrative* ANA [place] - 03/13/2024 11:00 AM EDT Images from the original note were not included. Nata Pete is a 78 y.o. female presents with chief complaint of No chief complaint on file. HPI: History of Present Illness Patient here for anxiety Patient was in ER on 03-10-2024 the dentist sent her to [facility] ER due to fact she [...] MOUTH EVERY DAY for 30 glucose blood (SportStreamTouch Ultra) test strip USE DIRECTED ONCE DAILY HYDROcodone-acetaminophen ([place]) 5-325 MG tablet 1 tablet, Oral, 2 times daily Lancets (SportStreamTouch Delica Plus Bvuquq43P) misc lidocaine (Lidoderm) 5 % patch 1 [...] Influenza Vaccine (1) 03/16/2024 documented in this encounterNorth Kansas City HospitalMncanuwtxl67-02-3794 Evaluation + Plan note Extracted from:Title:Pain Managment H&P new patientAuthor:Kaci Morton PA-C Date:10/17/23 Patient: NATA PETE Age: 78 [...] states that they have been giving her [place] 5/325 twice daily as needed pain that she uses as sparingly as possible. Per patient's understanding they were still going to continue to give this medication to her. She also has been seeing Ortho Dr. Anguiano. He has been doing injections that worked well for her. She had these last done in September. She states that the right kneewas not done as there was question of [...] All Problems Resolved: Hypertension / SNOMED CT 26401273 Resolved: Osteoarthritis / SNOMED CT 6884583249 Resolved: High cholesterol / SNOMED CT 6311723273 Resolved: Diabetes mellitus / SNOMED CT 872138833 Histories Past Medical History: Resolved Hypertension (86090729): Resolved. Osteoarthritis (4391566193): Resolved. High cholesterol (5509661791): Resolved. Diabetes mellitus (795672340): Resolved. Family History: Hypertension Father Brother Sister Heart disease Father Diabetes mellitus type 2 Mother Brother Stroke Mother CAD (coronary artery disease) Father Procedure history: Appendectomy (SNOMED CT 140876751). Cholecystectomy (SNOMED CT 49190649). Tonsillectomy (SNOMED CT 275826037). Repair of right hip joint (SNOMED CT 696636437745216). Osteoporotic fracture of left hip (SNOMED CT 225904079474212). Social History Social & Psychosocial Habits Alcohol 4Risk Assessment: Denies Alcohol Use Substance Abuse 10/17/2023isk Assessment: Denies Substance Abuse Tobacco 10/17/2023 Tobacco Use: Never (less than 100 in l 10/17/2023isk Assessment: Denies Tobacco Use . Physical Examination Vital Signs (last 24 hrs) Last Charted Heart Rate Wvxjhzoqfv37 bpm (OCT 16 10:18) RZR222 mmHg (OCT 16:18) DBP64 mmHg (OCT 16:18) Ckpyec61 kg (OCT 16:18) BMI27.68 (OCT 16:18) General: Alert and oriented, [...] Appropriate mood & affect. Integumentary: Warm, Dry, [place]. Review / Management Results review: No qualifying [...] with her PCP. She has been getting [place] from her PCP. 5/325 twice daily. She states that per their last conversation she thought they were going to continue to fill it. At this time, we discussed the possibility of genicular nerve block but she wants to continue with her appointment with her PCP which is tomorrow and with her Ortho sx. We will obtain a UDS today andreach out to the PCP to see if they are going to continue to fill this. In regards to the genicularnerve block she will consider this but she states that surgery is discussed she is hoping to pursuethis. She will follow-up in 1 month. OARRS reviewed. ENID score: 38%.Addendum by Kaci Morton PA-C on October 17, 2023 11:44 EDT Right foot not ranged due to being in a brace/[facility] Evaluation + Plan noteExtracted from:Title:ED NoteAuthor:Dillon Hurtado DOKiaraDate:10/01/23 Acute UTI (N39.0: Urinary tr act infection, site not specified) Orders: cephalexin, 500 mg = 1 cap(s), Oral, q12hr, X 7 day(s), # 14 cap(s), Refills(s) 0, Pharmacy: [facility]/pharmacy #[id number], 175, cm, 10/01/23 5:36:00 EDT, Height/Length Dosing, 55, kg, 10/01/23 5:36:00 EDT, Weight Dosing cephalexin, 500 mg = 1 cap(s), Cap, Oral, Once, Stop date 10/01/23 6:24:00 EDT, STAT, Start date 10/01/23 6:24:00 EDT, 10/01/23 6:24:00 EDT phenazopyridine, 100 mg = 1 tab(s), Oral, TID, X 3 day(s), # 9 tab(s), Refills(s) 0, Pharmacy: [facility]/pharmacy #[id number], 175, cm, 10/01/23 5:36:00 EDT, Height/Length Dosing, 55, kg, 10/01/23 5:36:00 EDT, Weight Dosing UA With Cult Reflex Urine Culture Future Appointments Appointment Date:10/17/2023 10:45:00 AM Scheduled Provider:Kaci Morton PA-C Location:[facility] [place] Appointment Type:Pain Management - New (FT) Diagnostic Tests Pending * Urine Culture 10/01/23 [facility]03-18-2024 Hospital Discharge instructions Patient Education 10/01/2023 [...] Treatment for this condition includes: Antibiotic medicine. Itff-ntd-xncqrfe medicines to treat discomfort. Drinking enough water [...] Follow these instructions at home: Medicines Take jbpv-vfy-wqdvfso and prescription medicines only as told by [...] provider. Document Revised: 02/11/2021 Document Reviewed: 02/11/2021 [employer] Patient Education 2022 [email or web address]. Follow Up Care 10/01/2023 05:17:03 With:Aisha RAGLAND Address: [address] [place] [address]- Business (1) When:Within 3 Day(s) [facility]02-13-2024 History of Present illness Narrative* ANA [place] - 08/28/2023 3:03 PM ESTAssociated Problem(s): Chronic pain disorder Patient will call when need refill * ANA [place] - 08/28/2023 3:02 PM ESTAssociated Problem(s): Controlled type 2 diabetes mellitus with diabetic polyneuropathy, without dino g-term current use of insulin ([facility]) Well controlled will continue meds * ANA [...] MOUTH EVERY DAY for 30 glucose blood (SportStreamTouch Ultra) test strip USE DIRECTED ONCE DAILY HYDROcodone-acetaminophen ([place]) 5-325 MG tablet 1 tablet, Oral, 2 times daily Lancets (OneTouch Delica Plus Jayvqo59D) misc lisinopril 20 MG tablet TAKE 1/4 [...] 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 ([facility]) Well controlled will continue meds Relevant Orders POCT Glycated hemoglobin, total (Completed) Microalbumin / creatinine urine ratio (Completed) documented in this encounterNorth [facility] City HospitalNfwdzydrbh46-17-1561 Evaluation note* Encounter Date Diagnosis Assessment Notes [...] fluid injected with 4 cc Marcaine 1 ccof Kenalog. She tolerated this well. Examination and assessment of this patient was performed by Lisa Castillo NP and patient will continue with the treatment plan per Dr. Soto, who initiated this treatment plan. Dr. Soto is present in the office today and providing supervision. Jun,rimary osteoarthritis of both knees (ICD-10 - M17.0)Nata presents with arthritis mutilans of bilateral knees. At this juncture we have discussed thefindings and diagnosis as well as personally reviewed [...] move forward with treatment at this time. Jun,ain in right knee (ICD-10 - M25.561) Jun,ain in left knee (ICD-10 - M25.562) Jun,cute pain of right shoulder (ICD-10 - M25.511) [facility] Other 11-27-2023 Evaluation note* Encounter Date Diagnosis Assessment Notes Treatment Notes Treatment Clinical Notes May, Primary osteoarthritis of right shoulder (ICD-10 - M19.011) [facility] Other 09-06-2023 Evaluation note* Encounter Date Diagnosis [...] cortisone injection was preformed under sterile conditions. Mar,rimary osteoarthritis of both knees (ICD-10 - M17.0)Nata presents with arthritis mutilans of bilateral knees. At this juncture we have discussed thefindings and diagnosis as well as personally reviewed [...] tolerated the injection well without adverse reaction. Mar,ain in right knee (ICD-10 - M25.561) Mar,ain in left knee (ICD-10 - M25.562) Mar,cute pain of right shoulder (ICD-10 - M25.511) [facility] Other 07-31-2023 Evaluation note* Encounter Date Diagnosis Assessment Notes Treatment Notes Treatment Clinical Notes Jan, Primary osteoarthritis of right shoulder (ICD-10 - M19.011) [facility] Other 03-01-2023 Evaluation note* Encounter Date Diagnosis Assessment Notes Treatment Notes Treatment Clinical Notes Sep, Primary osteoarthritis of both k nees (ICD-10 - M17.0) Nata presents with arthritis mutilans of bilateral knees. At this juncture we have discussed thefindings and diagnosis as well as personally reviewed [...] unfortunately her daughter, who would be her scalder, is having some medical issues and she [...] tolerated the injection well without adverse reaction. Sep,rimary osteoarthritis of right shoulder (ICD-10 - M19.011)Nata still also has significant DJD of the right shoulder. She would like to avoid surgery. She would like to try cortisone injection today. I believe that is fine. Risks and benefit of injection were discussed and verbal consent was obtained. Under sterile technique the patient's right shoulderwas injected via the posterior portal with 4 cc of Marcaine and 1 cc of Kenalog, this was toleratedwell without any adverse reaction. Band-Aid was applied to the area. A marcaine / kenalog cortisone injection was performed into the subacromial space under sterile technique. Patient tolerated the injection well with no adverse reaction. Sep, 3Pain in right knee (ICD-10 - M25.561) Sep, 3Pain in left knee (ICD-10 - M25.562) Sep, 3Acute pain of right shoulder (ICD-10 - M25.511) [facility] Other 11-30-2022 Evaluation note* Encounter Date Diagnosis Assessment Notes Treatment Notes Treatment Clinical Notes May, Pain in right knee (ICD-10 - M25 .561) May,ain in left knee (ICD-10 - M25.562) May,rimary osteoarthritis of both knees (ICD-10 - M17.0)Nata presents with arthritis mutilans of bilateral knees. At this juncture we have discussed thefindings and diagnosis as well as personally reviewed [...] unfortunately her daughter, who would be her scalder, is having some medical issues and she [...] a trial of 3 months or longer. [facility] Other 11-28-2022 Evaluation note* Encounter Date Diagnosis Assessment Notes Treatment Notes Treatment Clinical Notes May, Primary osteoarthritis of both k nees (ICD-10 - M17.0) [facility] Other 03-23-2022 Evaluation note* Encounter Date Diagnosis Assessment Notes Treatment Notes Treatment Clinical Notes Sep, Pain in right knee (ICD-10 - M25 .561) Sep, 2Pain in left knee (ICD-10 - M25.562) Sep, 2Primary osteoarthritis of both knees (ICD-10 - M17.0) Nata presents with arthritis mutilans of bilateral knees. At this juncture we have discussed thefindings and diagnosis as well as personally reviewed [...] tolerated the injection well without adverse reaction. Sep,therSee orders for this visit as documented in the electronic medical record. [facility] Other 09-22-2021 Evaluation note* Encounter Date Diagnosis Assessment Notes Treatment Notes Treatment Clinical Notes Mar, Closed fracture of n edi of left femur with routine healing, subsequent encounter (ICD-10 - S72.002D) Mar, rimary osteoarthritis of left knee (ICD-10 - M17.12) We performed a 1/1cc marcaine / kenalog cortisone injection into the knee joint under sterile technique. Patient tolerated the injection well without adverse reaction. Mar, rimary osteoarthritis of right knee (ICD-10 - M17.11) We performed a 1/1cc marcaine / kenalog cortisone injection into the knee joint under sterile technique. Patient tolerated the injection well without adverse reaction. Mar, ain in left knee (ICD-10 - M25.562) Mar,cute pain of right knee (ICD-10 - M25.561) Mar,Other specified postprocedural states (ICD-10 - Z98.890) [facility] Other 10-01-2013 History general Narrative - Reported* Type Description Date Medical History right hip fracture S/P SCREW FIX ATION Medical HistoryHTNMedical HistoryHLDSurgical HistoryRIGHT HIP FRACTURE S/P SCREW FIXATION ([facility])04/2013Surgical HistoryS/P HYSTERECTOMYSurgical HistoryS/P CHOLECYSTECTOMYSurgical Historyfemoral head fixationHospitalization HistoryAS ABOVE [facility] Other Chief complaint+Reason for visit Narrative* Chief Complaint op sp rt shoulder pa in lt knee pain req injection feeling not right after procedureReason for VisitOsteoarthritis of left knee Osteoarthritis of right knee Osteoarthritis of right shoulder [facility] Work Phone: Chief complaint+Reason for visit Narrative* Chief Complaint feeling not right af ter procedure LILIBETH PT OP SP RT KNEE PAIN M17.12 - Unilateral primary osteoarthritis, left kReason for VisitOsteoarthritis of left knee Osteoarthritis of right knee Osteoarthritis of right shoulder [facility] Work Phone: Evaluation [employer] Other Evaluation noteNo assessment information available [facility] Work Phone: Evaluation noteNo InformationNortHeritage Valley [facility] Other Evaluation note* Diagnosis Chronic pain disorder- Primary Chronic pain syndrome Controlled type 2 diabetes mellitus with diabetic polyneuropathy, 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 ([facility]) [facility]* Diagnosis Onset Date Resolution Status Osteoarthritis of left knee acuteOsteoarthritis of right kneeacuteOsteoarthritis of right shoulderchronic [facility] Work Phone: Evaluation note* Diagnosis GERD [...] Chronic pain syndrome documented in this encounter [facility]* Diagnosis Chronic pain disorder- [...] Reactive depression (CMS/HCC) documented in this encounter [facility]* Diagnosis Chronic pain disorder- [...] Dermatophytosis of nail documented in this encounter [facility]* Diagnosis Chronic pain disorder- [...] Chronic pain syndrome documented in this encounter [facility]* Diagnosis Chronic pain disorder- [...] esophagitis Esophageal reflux documented in this encounter [facility]* Diagnosis Diabetic polyneuropathy associated with type 2 diabetes mellitus (CMS/[facility])- Primary Onychomycosis Dermatophytosis of nail [facility]* Diagnosis Reactive depression ([facility])- Primary Anxiety Anxiety state, unspecified documented in this encounter [facility] HealthcareEvaluation [facility]* Diagnosis Chronic pain disorder- Primary Chronic pain syndrome Controlled type 2 diabetes mellitus with diabetic polyneuropathy, 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 ([facility]) Encounter for immunization Essential hypertension (CMS/[facility]) Unspecified essential hypertension Controlled type 2 diabetes mellitus with diabetic polyneuropathy, 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 ([facility])- Primary Chronic pain disorder Chronic pain syndrome [...] of insulin (CMS/HCC) documented in this encounter [facility] HealthcareEvaluation note* Diagnosis Chronic pain disorder- Primary Chronic pain syndrome Controlled type 2 diabetes mellitus with diabetic polyneuropathy, 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 (CMS/HCC) Encounter for immunization Essential hypertension (CMS/HCC) Unspecified essential hypertension Controlled type 2 diabetes mellitus with diabetic polyneuropathy, 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 (CMS/[facility])- Primary Chronic pain disorder Chronic pain syndrome [...] Chronic pain syndrome documented in this encounter [facility]Evaluation [facility]* Diagnosis Chronic pain disorder- [...] of insulin (CMS/HCC) documented in this encounter [facility]Evaluation note* Diagnosis Chronic pain disorder- [...] Dermatophytosis of nail documented in this encounter [facility]Evaluation [facility]* Diagnosis Chronic pain disorder- [...] Unspecified pre-operative examination documented in this encounter [facility]* Diagnosis Chronic pain disorder- [...] Chronic pain syndrome documented in this encounter [facility] HealthcareEvaluation note* Diagnosis Chronic pain disorder- [...] Other follow-up examination documented in this encounter [facility]Evaluation note* Diagnosis Chronic pain disorder- [...] of insulin (CMS/HCC) documented in this encounter [facility]Evaluation note* Diagnosis Chronic pain disorder- [...] Breast screening, unspecified documented in this encounter [facility]Evaluation note* Diagnosis Chronic pain disorder- [...] Unspecified essential hypertension documented in this encounter [facility]Evaluation note* Diagnosis Chronic pain disorder- [...] Chronic pain syndrome documented in this encounter [facility]Evaluation note* Diagnosis Chronic pain disorder- [...] Unspecified essential hypertension documented in this encounter [facility]Evaluation note* Diagnosis Chronic pain disorder- [...] Preop examination Unspecified pre-operative examination Chronic pain disorder- Primary Chronic pain syndrome Essential hypertension Unspecified essential hypertension documented in this encounter [facility]Evaluation note* Diagnosis Chronic pain disorder- [...] state, unspecified Preop examination Unspecified pre-operative examination Hypercholesteremia- Primary Pure hypercholesterolemia Controlled type 2 diabetes mellitus with diabetic polyneuropathy, 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 (HCC) Need for vaccination Need for prophylactic vaccination and inoculation against unspecified single disease Essential hypertension Unspecified essential hypertension documented [facility] encounter [facility] general Narrative - ReportedPalmer [employer] Other Hospital course Narrative No data available for this section [facility] No data available for this section [facility] instructions Additional Instructions Continue current [facility] Follow-up with your private physician Return if symptoms are worse[facility] Work Phone: Progress note No data available for this section [facility] HospitalReason for referral (narrative)No reason for referral information availableL[facility] Work Phone: Summary Purpose Family History No Family History Records Found Relationship Condition Age at Onset Recorded Date/T chris Not Specified Diabetes mellitus Unknown Coronary artery diseaseUnknownAlzheimer's diseaseUnknownMalignant neoplasm of breastUnknownHypertensionUnknown Relationship Condition Age at Onset Recorded Date/T chris Not Specified Diabetes mellitus Unknown Coronary artery diseaseUnknownAlzheimer's diseaseUnknownMalignant neoplasm of breastUnknownHypertensionUnknownbrotherDeceasedUnknownfatherDeceasedUnknownNot SpecifiedDeceasedUnknown Relationship Condition Age at Onset Recorded Date/T chris Not Specified Diabetes mellitus Unknown Coronary artery diseaseUnknownAlzheimer's diseaseUnknownMalignant neoplasm of breastUnknownHypertensionUnknownbrotherDeceasedUnknownfatherDeceasedUnknown motherDeceasedUnknown Relationship Condition Age at Onset Recorded Date/T chris brother Unknown fatherDeceasedUnknownCoronary artery diseaseUnknownArthritisUnknownMalignant neoplasm of prostateUnknownmotherDeceasedUnknownAlzheimer's diseaseUnknown Diabetes mellitusUnknownHypertensionUnknownfamily memberMalignant neoplasm of breastUnknown Advance Directives No Advanced Directives Records Found [...] 2024 3:09pm Primary osteoarthritis of left knee 2024 3:09pm Primary osteoarthritis of right shoulder September 03, 2024 3:09pm Osteoarthritis of right shoulder 2024 3:09pm Chief Complaint Admit Date OP [...] 2024 3:09pm Osteoarthritis of right shoulder Februar 2024 3:09pm S/P total knee arthroplasty August [...] 12:54pm Primary osteoarthritis of right knee Apr la 2024 4:22pm Status post total right knee [...] Admit Date Primary osteoarthritis of right knee [facility] 2024 12:54pm Status post total right knee replacement September 22, 2024 12:54pm Primary osteoarthritis of right knee Apr la 2024 4:22pm Status post total right knee [...] Date Primary osteoarthritis of right knee Apr la 2024 4:22pm Status post total right knee [...] s/p RTK 09/09April 15, 2025 4: 30pm Chief Complaint Admit Date Unknown March 04, [...] 12:45pm Primary osteoarthritis of left knee Sept 2024 12:45pm Primary osteoarthritis of right knee Sep 2024 12:45pm Primary osteoarthritis of right shoulder March 18, 2025 12:45pm Status post total right knee replacement March 18, 2025 12:45pm Avulsion fracture April 15, 2025 2: 47pm Primary osteoarthritis of left knee Octo 2024 2:47pm Primary osteoarthritis of right knee Oct 2024 2:47pm Primary osteoarthritis of right shoulder April 15, 2025 2:47pm Status post total right knee replacement April 15, 2025 2:47pm Additional Source Comments INFORMATION SOURCE (unrecogn ized section and content) DATE CREATED AUTHOR 01/03/2018 [place] [facility] DATE CREATED AUTHOR AUTHOR'S ORGANIZ ATION 01/09/2018 [facility] DATE CREATED AUTHOR AUTHOR'S ORGANIZ ATION 10/03/2021 [facility] DATE CREATED AUTHOR AUTHOR'S ORGANIZ ATION 02/25/2022 [facility] DATE CREATED AUTHOR AUTHOR'S ORGANIZ ATION 10/25/2023 [facility] DATE CREATED AUTHOR AUTHOR'S ORGANIZ ATION 04/30/2025 [facility] EPIC DATE CREATED AUTHOR AUTHOR'S ORGANIZ ATION 05/10/2025 [facility] REASON FOR VISIT (unrecogniz ed section and content) ReasonCommentsDiabetesEdemaReasonCommentsMed RefillReasonCommentsImmunizations Patient received flu vaccine in obdzrhMynoekjpJ4S check and RetinapathyReason CommentsFollow-upNailcareReasonOnset DateCommentsMed [id number] CommentsFollow-upReasonCommentsMed RefillLisinopril, escitalopram, famotidine, simvastatin, metformin, alendronateReasonOnset DateCommentsMed Xxeaux4408/26/2024 ReasonOnset DateCommentsMed Qakigu4508/25/2024ReasonCommentsMedicare Annual Wellness Visit SubsequentHospital Follow-upFollow up from [facility] completed TCMReasonCommentsToenail CareReasonOnset DateCommentsMed Lfwqmn6302/27/2025Reason CommentsLeg Pain Care Teams (unrecognized sec tion and content) Team Status: Inactive Member Role Status Dates Aisha Ragland PA-C Primary Care Provider Active Eron Chan ProviderActive Team Status: Active Member Role Status Dates Aisha Ragland PA-C Primary Care Provider Active Team Status: Inactive Member Role Status Dates Aisha Ragland PA-C Primary Care Provider Active Demetrius Simons ProviderActiveTeam MemberRelationshipSpecialty Start DateEnd Date Zuri Hannah MD [address] [place] [address] PCP - [facility]07/16/20 Zuri Hannah MD [address] [place] [address] PCP - [facility]12/25/22 Team Status: Inactive Member Role Status Dates Aisha Ragland PA-C Primary Care Provider Active Start: December 19, 2023 End: December 19, 2023Eron Chan ProviderActiveStart: December 19, 2023 End: December 19, 2023 Team Status: Inactive Member Role Status Dates Aisha Ragland PA-C Primary Care Provider Active Start: March 10, 2024 End: March 10, 2024Alec Caldwellcy ProviderActiveStart: March 10, 2024 End: March 10, 2024 Team Status: Inactive Member Role Status Dates Aisha Ragland PA-C Primary Care Provider Active Start: April 23, 2024 End: April 23, 2024Lisa Castillo , APPOINTMENT SETTER-CAttending ProviderActiveStart: April 23, 2024 End: April 23, 2024 Team Status: Active Member Role Status Dates Aisha Ragland PA-C Primary Care Provider Active Start: April 23, 2024 Lisa Castillo , APPOINTMENT SETTER-CAttending ProviderActiveStart: April 23, 2024 Team MemberRelationshipSpecialtyStart DateEnd Date Zuri Hannah MD [address] [place] [address] PCP - [facility]/16/20 Zuri Hannah MD [address] [place] [address] PCP - [facility]09/17/23Team MemberRelationshipSpecialtyStart DateEnd Date Zuri Hannah MD [address] [place] [address] PCP - [facility]/16/20 Zuri Hannah MD [address] [place] [address] PCP - [facility]09/17/23Team MemberRelationshipSpecialtyStart DateEnd Date Zuri Hannah MD [address] [place] [address] PCP - [facility]/16/20 Zuri Hannah MD [address] [place] [address] PCP - [facility]09/17/23Team MemberRelationshipSpecialtyStart DateEnd Date Zuri Hannah MD [address] [place] [address] PCP - [facility]/16/20 Zuri Hannah MD [address] [place] [address] PCP - [facility]09/17/23Team MemberRelationshipSpecialtyStart DateEnd Date Zuri Hannah MD [address] [place] [address] PCP - [facility]/16/20 Zuri Hannah MD [address] [place] [address] PCP - [facility]09/17/23Team MemberRelationshipSpecialtyStart DateEnd Date Zuri Hannah MD [address] [place] [address] PCP - [facility]/16/20 Zuri Hannah MD [address] [place] [address] PCP - [facility]09/17/23Te MemberRelationshipSpecialtyStart DateEnd Date Zuri Hannah MD [address] [place] [address] PCP - [facility]/16/20 Zuri Hannah MD [address] [place] [address] PCP - [facility]09/17/23Te MemberRelationshipSpecialtyStart DateEnd Date Zuri Hannah MD [address] [place] [address] PCP - [facility]/16/20 Zuri Hannah MD [address] [place] [address] PCP - [facility]09/17/23Te MemberRelationshipSpecialtyStart DateEnd Zuri Lemons MD [address] [place] [address] PCP - [facility]/16/20 Zuri Hannah MD [address] [place] [address] PCP - [facility]09/17/23Te MemberRelationshipSpecialtyStart DateEnd Date Zuri Hannah MD [address] [place] [address] PCP - [facility]/16/20 Zuri Hannah MD [address] [place] [address] PCP - [facility]09/17/23 Team Status: Inactive Member Role Status Dates Aisha Ragland PA-C Primary Care Provider Active Start: June 07, 2024 End: June 07, 2024Tyler Neal ProviderActiveStart: June 07, 2024 End: June 07, 2024 Team Status: Inactive Member Role Status Dates Aisha Ragland PA-C Primary Care Provider Active Start: July 23, 2024 End: July 23, 2024JuEron Willams ProviderActiveStart: July 23, 2024 End: July 23, 2024Team MemberRelationshipSpecialtyStart DateEnd Date Zuri Hannah MD [address] [place] [address] PCP - [facility]/16/20 Zuri Hannah MD [address] [place] [address] PCP - [facility]09/17/23Team MemberRelationshipSpecialtyStart DateEnd Date Zuri Hannah MD [address] [place] [address] PCP - [facility]/16/20 Zuri Hannah MD [address] [place] [address] PCP - [facility]09/17/23 Team Status: Inactive Member Role Status Dates Aisha Ragland PA-C Primary Care Provider Active Start: August 22, 2024 End: August 22, 2024JuEron Willams ProviderActiveStart: August 22, 2024 End: February 7th, 2025Team MemberRelationshipSpecialtyStart DateEnd Date Zuri Hannah MD [address] [place] [address] PCP - [facility]/16/20 Zuri Hannah MD [address] [place] [address] PCP - [facility]09/17/23 Team Status: Inactive Member Role Status Dates Aisha Ragland PA-C Primary Care Provider Active Start: August 26, 2024 End: August 26, 2024JuEron Willams ProviderActiveStart: August 26, 2024 End: August 26, 2024Team MemberRelationshipSpecialtyStart DateEnd Date Zuri Hannah MD [address] [place] [address] PCP - [facility]/16/20 Zuri Hannah MD [address] [place] [address] [facility]09/17/23 Team Status: Active Member Role Status Dates Aisha Ragland PA-C Primary Care Provider Active Start: September 01, 2024 Eron Chan ProviderActiveStart: September 01, 2024 Team Status: Active Member Role Status Dates Aisha Ragland PA-C Primary Care Provider Active Start: September 03, 2024 Eron Chan ProviderActiveStart: September 03, 2024 Team Status: Inactive Member Role Status Dates Aisha Ragland PA-C Primary Care Provider Active Start: September 03, 2024 End: September 03, 2024JuEron Willams ProviderActiveStart: September 03, 2024 End: September 03, 2024 Team Status: Inactive Member Role Status Dates Aisha Ragland PA-C Primary Care Provider Active Start: September 09, 2024 End: September 11, 2024Justraymundo Soto , DOAttending ProviderActiveStart: September 09, 2024 End: September 11, 2024 Team Status: Active Member Role Status Dates Aisha Ragland PA-C Primary Care Provider Active Start: September 09, 2024 Joãoraymundo Soto , DOAttending Provider, Other ProviderActiveStart: September 09, 2024 Team Status: Inactive Member Role Status Dates Aisha Ragland PA-C Primary Care Provider Active Start: September 22, 2024 End: September 22, 2024Justraymundo Soto , DOAttending ProviderActiveStart: September 22, 2024 End: September 22, 2024Team MemberRelationshipSpecialtyStart DateEnd Date Zuri Hannah MD [address] [place] [address] PCP - [facility]/16/20 Zuri Hannah MD [address] [place] [address] PCP - [facility]09/17/23Team MemberRelationshipSpecialtyStart DateEnd Date Zuri Hannah MD [address] [place] [address] PCP - [facility]/16/20 Zuri Hannah MD [address] [place] [address] PCP - [facility]09/17/23Team MemberRelationshipSpecialtyStart DateEnd Date Zuri Hannah MD [address] [place] [address] PCP - [facility]/16/20 Zuri Hannah MD [address] [place] [address] PCP - [facility]09/17/23Team MemberRelationshipSpecialtyStart DateEnd Zuri Hannah MD [address] [place] [address] PCP - [facility]/16/20 Zuri Hannah MD [address] [place] [address] PCP - [facility]09/17/23Team MemberRelationshipSpecialtyStart DateEnd Zuri Hannah MD [address] [place] [address] PCP - [facility]/16/20 Zuri Hannah MD [address] [place] [address] PCP - [facility]09/17/23 Team Status: Inactive Member Role Status Dates Aisha Ragland PA-C Primary Care Provider Active Start: September 01, 2024 End: September 01, 2024JuEron Willams ProviderActiveStart: September 01, 2024 End: September 01, 2024 Team Status: Inactive Member Role Status Dates Aisha Ragland PA-C Primary Care Provider Active Start: October 20, 2024 End: October 20, 2024JuEron Willams ProviderActiveStart: October 20, 2024 End: October 20, 2024 Team Status: Inactive Member Role Status Dates Aisha Ragland PA-C Primary Care Provider Active Start: December 01, 2024 End: December 01, 2024JuEron Willams ProviderActiveStart: December 01, 2024 End: December 01, 2024 Team Status: Active Member Role Status Dates Aisha Ragland PA-C Primary Care Provider Active Start: December 19, 2024 Eron Chan ProviderActiveStart: December 19, 2024 Team Status: Inactive Member Role Status Dates Aisha Ragland PA-C Primary Care Provider Active Start: December 21, 2024 End: December 21, 2024Patalha Roberts APRN APPOINTMENT SETTER-CAttending ProviderActive Start: December 21, 2024 End: December 21, 2024 Team Status: Inactive Member Role Status Dates Aisha Ragland PA-C Primary Care Provider Active Start: December 21, 2024 End: December 21, 2024Patalha Roberts , APPOINTMENT SETTER-CAttending ProviderActiveStart: December 21, 2024 End: December 21, 2024 Team Status: Active Member Role Status Dates Aisha Ragland PA-C Primary Care Provider Active Start: December 22, 2024 Eron Chan ProviderActiveStart: December 22, 2024 Team MemberRelationshipSpecialtyStart DateEnd Date Zuri Hannah MD [address] [place] [address] PCP - [facility]07/16/20 Zuri Hannah MD [address] [place] [address] PCP - [facility]09/17/23Team MemberRelationshipSpecialtyStart DateEnd Date Zuri Hannah MD [address] [place] [address] PCP - [facility]07/16/20 Zuri Hannah MD [address] [place] [address] PCP - [facility]09/17/23 Team Status: Active Member Role Status Dates Aisha Ragland PA-C Primary Care Provider Active Start: January 23, 2025 João Soto DOAttending ProviderActiveStart: January 23, 2025 Team Status: Inactive Member Role Status Dates Aisha Ragland PA-C Primary Care Provider Active Start: January 26, 2025 End: January 26, 2025Juchauncey Soto DOAttending ProviderActiveStart: January 26, 2025 End: January 26, 2025Team MemberRelationshipSpecialtyStart DateEnd Date Zuri Hannah MD [address] [place] [address] PCP - [facility]07/16/20 Zuri Hannah MD [address] [place] [address] PCP - [facility]09/17/23Team MemberRelationshipSpecialtyStart DateEnd Date Zuri Hannah MD [address] [place] [address] PCP - [facility]07/16/20 Zuri Hannah MD [address] [place] [address] PCP - [facility]09/17/23 Team Status: Active Member Role Status Dates Aisha Ragland PA-C Primary Care Provider Active Start: March 04, 2025 Eron Chan ProviderActiveStart: March 04, 2025 Team Status: Inactive Member Role Status Dates Alvin Benito DO Attending Provider Active S tart: March 04, 2025 End: March 04, 2025 Team Status: Active Member Role Status Dates Aisha Ragland PA-C Primary Care Provider Active Start: March 13, 2025 João Soto DOAttending ProviderActiveStart: March 13, 2025 Team Status: Active Member Role Status Dates João Soto DO Attending Provider Active S tart: March 18, 2025 Team Status: Inactive Member Role Status Dates João Soto DO Attending Provider Active S tart: March 18, 2025 End: March 18, 2025[facility] Care ProviderActive Start: March 18, 2025 End: March 18, 2025 Team Status: Inactive Member Role Status Dates João Soto DO Attending Provider Active S tart: March 18, 2025 End: March 18, 2025 Team Status: Active Member Role Status Dates Aisha Ragland PA-C Primary Care Provider Active Start: March 18, 2025 João Soto DOAttending ProviderActiveStart: March 18, 2025 Team MemberRelationshipSpecialtyStart DateEnd Date Zuri Hannah MD [address] [place] [address] PCP - [facility]07/16/20 Zuri Hannah MD [address] [place] [address] PCP - [facility]09/17/23 Team Status: Active Member Role Status Dates Aisha Ragland PA-C Primary Care Provider Active Start: April 13, 2025 João Soto DOAttending ProviderActiveStart: April 13, 2025 Team Status: Active Member Role Status Dates Aisha Ragland PA-C Primary Care Provider Active Start: April 15, 2025 João Soto DOAttending ProviderActiveStart: April 15, 2025 Team Status: Inactive Member Role Status Dates Aisha Ragland PA-C Primary Care Provider Active Start: April 15, 2025 End: April 15, 2025Juchauncey Soto DOAttending ProviderActiveStart: April 15, 2025 End: April 15, 2025Team MemberRelationshipSpecialtyStart DateEnd Date Zuri Hannah MD [address] [place] [address] PCP - [facility]07/16/20 Zuri Hannah MD [address] [place] [address] PCP [facility]09/17/23 Team Status: Active Member Role/Relationship Status Dates Aisha Ragland PA-C Primary Care Provider Active Team Status: Inactive Member Role/Relationship Status Dates Alvin Benito DO Attending Provider Active S tart: March 04, 2025 End: March 04, 2025 Team Status: Inactive Member Role/Relationship Status Dates João Soto DO Attending Provider Active S tart: March 18, 2025 End: March 18, 2025 Team Status: Inactive Member Role/Relationship Status Dates João Soto DO Attending Provider Active S tart: March 18, 2025 End: March 18, 2025[facility] Care ProviderActive Start: March 18, 2025 End: March 18, 2025 Team Status: Inactive Member Role/Relationship Status Dates Aisha Ragland PA-C Primary Care Provider Active Start: April 15, 2025 End: April 15, 2025JuEron Willams ProviderActiveStart: April 15, 2025 End: April 15, 2025 Team Status: Inactive Member Role/Relationship Status Dates Aisha Ragland PA-C Primary Care Provider Active Start: April 15, 2025 End: April 15, 2025JuEron Willams ProviderActiveStart: April 15, 2025 End: April 15, 2025 Team Status: Inactive Member Role/Relationship Status Dates Aisha Ragland PA-C Primary Care Provider Active Start: May 06, 2025 End: May 06, 2025JuMary Willamsending ProviderActiveStart: May 06, 2025 End: May 06, 2025 Goals (unrecognized section and content) Goals [...] BE BASED ON THE PRIMARY CLINICAL RECORDS. [facility] [employer] [facility]. provides no warranty or guarantee of the accuracy or completeness of information in this document.
--- OUTSIDE RECORDS SUMMARY | 2025-05-16 11:15 | XMS_ITS | Encounter Summary ---
Author Organization [facility] Address [address] [place] [address] Care Team Providers Care Java Web User Interface Developer Name Role Phone Zuri Hannah MD Unavailable Zuri Hannah MD Primary Care Provider [phone] Encounter Details DateTypeDepartmentCare Team (Latest Contact Info)Xopdxzcvhrt43/29/2025Patient Outreach [facility] [address] [place] [id number] Xochitl Wang LPN [address] [place] [address] Social History Tobacco UseTypesPacks/DayYears UsedDateSmoking Tobacco: NeverSmokeless Tobacco: NeverAlcohol UseStandard Drinks/WeekCommentsYes0 (1 standard drink = 0.6 oz pure alcohol)1-2 drinks less than monthly in the past year, Caffeine intake: 2-3 cups per dayPHQ-2AnswerDate RecordedPatient Health Questionnaire-2 [id number] CommentsNoSex and Gender InformationValueDate RecordedSex Assigned at BirthNot on fileLegal DghTqzsgf73/15/2023 6:35 PM EDTGender IdentityNot on file Sexual OrientationNot on filedocumented as of this encounter Progress Notes * Xochitl Wang LPN - 05/13/2025 1:49 PM EDT Pt calls to have lab orders faxed to [facility] lab. She will make appt to have them drawn Sunday. Lab orders faxed to [phone]. <May 13, 2025, 13:58 - Xochitl Wang LPN> documented in this encounter Plan of Treatment DateTypeDepartmentCare Team (Latest Contact Info)Tvexjktitcn31/04/2025 3:45 PM ESTProcedure Visit [facility] [address] [place] [address] Bennett Valentino DPM [address] [place] [address] documented as of this encounter Visit Diagnoses Diagnosis Chronic pain disorder- Primary Chronic pain syndrome Essential hypertension Unspecified essential hypertension documented in this encounter Additional Health Concerns AssessmentNoted TimePHQ-9 Depression Total Score: 2:00 PM EDT documented as of this encounter Care Teams Team MemberRelationshipSpecialtyStart DateEnd Date Zuri Hannah MD [address] [place] [address] PCP - [facility]07/16/20 Zuri Hannah MD [address] [place] [address] [facility] - [facility]23documented as of this encounter
--- OUTSIDE RECORDS SUMMARY | 2025-05-16 11:15 | XMS_ITS | Clinical Summary ---
Author Organization [facility] Address [address] [place] [address] Care Team Providers Care Community Association Manager Name Role Phone Zuri Hannah MD Unavailable Zuri Hannah MD Primary Care Provider [phone] Allergies Active AllergyReactionsCriticalityNoted DateCommentsBee DhtpimKpiphxi35/25/2023 Bee VenomShortness of zwwxvmXnfe42/25/9489RjbwguyfqcCadraly73/25/2023Tramadol Thpmnmq6412/07/2022 Medications MedicationSigDispense QuantityRefillsLast FilledStart DateEnd DateStatus Elderberry 575 MG/5ML syrup Active Blood Glucose Monitoring Suppl (ONE TOUCH ULTRA 2) w/Device kit 04/26/2022ctive CeleBREX 100 MG capsule 1 (one) time each day at the same timeActive Lancets (Caralon GlobalTouch Delica Plus Hjpitd72T) misc 04/26/2022ctive omega-3 (Fish Oil) 1200 MG capsule 1 capsule 1 (one) time each day at the same timeActive lidocaine (Lidoderm) 5 % patch Apply 1 patch topically Daily Remove & discard patch within 12 hours or as directed by MD.Active Ascorbic Acid (VITAMIN C PO) Take by mouthActive Calcium Carb-Cholecalciferol (CALCIUM 600 + D PO) Take by mouthActive escitalopram (Lexapro) 20 MG tablet Indications:Reactive depressionTake 1 tablet (20 mg) by mouth at bedtime 90 tablet ctive furosemide (Lasix) 20 MG tablet Indications:Essential hypertension,Controlled type 2 diabetes mellitus with diabetic polyneuropathy, without long-term current use of insulin (HCC)TAKE 1 TABLET BY MOUTH EVERY DAY 90 tablet ctive glucose blood (OneTouch Ultra) test strip Indications:Controlled type 2 diabetes mellitus with diabetic polyneuropathy, without long-term current use of insulin (HCC)USE DIRECTED ONCE DAILY 100 each 1105Active glucose blood (OneTouch Ultra) test strip Indications:Controlled type 2 diabetes mellitus with diabetic polyneuropathy, without long-term current use of insulin (HCC)USE DIRECTED ONCE DAILY 100 each 1114Active LORazepam (Ativan) 0.5 MG tablet Indications:AnxietyTake 1 tablet (0.5 mg) by mouth 2 (two) times a day as needed for anxiety 10 tablet 5Active metFORMIN (Glucophage) 500 MG tablet Indications:Controlled type 2 diabetes mellitus with diabetic polyneuropathy, without long-term current use of insulin (HCC)Take 1 tablet (500 mg) by mouth Daily 90 tablet 5Active simvastatin (Zocor) 40 MG tablet Indications:Hypercholesteremia,Essential hypertensionTake 1 tablet (40 mg) by mouth 1 (one) time each day at the same time 90 tablet //6Active famotidine (Pepcid) 20 MG tablet Indications:GERD without esophagitisTake 1 tablet (20 mg) by mouth in the morning. 90 tablet 5Active atenolol (Tenormin) 25 MG tablet Indications:Essential hypertensionTake 1/2 (one-half) tablet by mouth once daily 45 tablet 5Active lisinopril 20 MG tablet Indications:Essential hypertensionTAKE 1/4 (ONE-FOURTH) TABLET BY MOUTH TWICE DAILY 45 tablet 5Active HYDROcodone-acetaminophen (Bern) 5-325 MG tablet Indications:Chronic pain disorderTake 1 tablet by mouth 3 (three) times a day as needed for severe pain 90 tablet 5Active HYDROcodone-acetaminophen (Bern) 5-325 MG tablet Indications:Chronic pain disorderTake 1 tablet by mouth 3 (three) times a day as needed for severe pain 90 tablet Discontinued(Reorder) Active Problems ProblemNoted DateDiagnosed DateAbnormal mammogram of right miyylj4703/31/2025 Ouieihpbyc82/01/2025Hospital discharge follow-up10/25/2024Generalized edema 10/22/2024Preop vxmkfejcvcl63/06/2025 Assessment & Plan (08/21/2024 3:50 PM EST): Patient has pre-op testing on 08-22 Waiting for results Acute non-recurrent frontal dneroudvk15/06/1465Uyvtwno84/29/2024hronic pain of right knee12/31/2023 Assessment & Plan (12/31/2023 1:59 PM EDT): Patient is doing better since less fluid will follow up as needed History of UTI11/03/20236044Wojpywf80/20/2024Medicare annual wellness visit, vneqmbgmvg38/20/2024 Assessment & Plan (11/03/2023 1:59 PM EDT): Annual exam in one year Chronic pain elyxeooe57/25/2023 Assessment & Plan (01/28/2024 4:58 PM EDT): [...] in 3 months Controlled type 2 diabetes mellitus with diabetic polyneuropathy, 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 of yzklaxq3012/07/2022 Assessment & Plan (01/28/2024 5:00 PM EDT): Stable Will see in 3 months Assessment & Plan (11/03/2023 1:57 PM EDT): Patient hgba1c wnl Assessment & Plan (08/28/2023 3:02 PM EST): Well controlled will continue meds Assessment & Plan (06/27/2023 11:44 AM EST): stable Assessment & Plan (2023 3:11 PM EDT): Controlled Will see for follow up in 3 months Corns and wbdfhftsvqe68/25/2023egenerative joint disease involving multiple fjzlpq3212/07/2022Essential ojyajsbrvyyu70/25/2023 Assessment & Plan (06/27/2023 11:43 AM EST): stable GERD without pktdtxryabb41/25/2023 Assessment & Plan (06/27/2023 11:43 AM EST): stable Qwfmrdagzqbodmjlul85/25/2023Leg length mhudsgqllsu67/25/2023Non-pressure chronic ulcer of other part of right foot limited to breakdown of skin12/07/2022 Awmlwqpzsfnsm09/25/4150Xefxunjofqjh35/25/2023Overactive tettxxr9312/07/2022Raynaud mnrncif1112/07/2022Reactive byhyxqjjnj97/25/2023 Encounters DateTypeDepartmentCare ZbphPlrlgkimhww19/29/2025Patient Outreach [facility] [address] [place] [address] Xochitl Wang LPN 04/28/2025 3:20 PM EDTOffice Visit [facility] [address] [place] [address] Aisha Ragland PA Hypercholesteremia (Primary Dx); Controlled type 2 diabetes mellitus with diabetic polyneuropathy, 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 (HCC); Need for vaccination; Essential wdxoltshmxtt00/14/2025amboo flowsheet [facility] [address] [place] [address] Aisha Ragland PA 04/28/20254450Syzomz11/10/2025Orders Only [facility] [address] [place] [address] Xochitl Wang LPN Chronic pain disorder (Primary Dx); Essential mhzmnathsbom39/07/2025Results Follow-Up [facility] [address] [place] [address] Aisha Ragland, ANA MM TOMOSYNTHESIS DIAGNOSTIC RT5Clinisync Result Encounter [facility] External Department Unsolicited Aisha Ragland PA 04/02/2025Results Follow-Up [facility] [address] [place] [phone] Aisha Ragland, PA Bilateral screening mammogram with rnsthedfvgewj31/17/2025Orders Only [facility] [address] [place] [phone] Rachel Velazquez Breast screening; Abnormal mammogram of right bxiizw3603/31/2025Results Follow-Up [facility] [address] [place] [phone] Aisha Ragland PA Bilateral screening qwpjowknk13/12/2025Patient Outreach [facility] [address] [place] [address] Xochitl Wang LPN 5Clinisync Result Encounter [facility] External Department Unsolicited Aisha Ragland PA 03/25/2025Patient Outreach [facility] [address] [place] [address] Xochitl Wang LPN 03/19/2025Refill [facility] [address] [place] [address] Zuri Hannah MD Essential pcnfqhpvunby28/29/2025Patient Outreach [facility] [address] [place] [address] Xochitl Wang LPN 03/06/2025Patient Outreach [facility] [address] [place] [address] Aye Taylor LSW 5Clinisync Result Encounter [facility] External [facility] Unsolicited Provider, Generic External Data 02/27/2025Refill [facility] [address] [place] [phone] Erin Azar MA Chronic pain somtcjyo18/14/2025[facility] [address] [place] [address] Xochitl Wang LPN from Last 3 Months Immunizations ImmunizationAdministration DatesNext DueInfluenza Whole05/06/2008,05/14/2007 Influenza, High Dose Seasonal, Preservative Free2022,04/26/2020,05/21/2019 ,05/26/2018,05/05/2017,05/20/2016Influenza, High-dose Seasonal, Quadrivalent, Preservative Free03/27/2023,2022,04/25/2021,04/26/2020Influenza, Recombinant, injectable, preservative free04/28/2025Influenza, injectable, kgnwfavvigcx11/27/2015,05/26/2014Influenza, injectable, quadrivalent, preservative free04/24/2017Influenza, recombinant, quadrivalent, injectable, preservative free4Pneumococcal Conjugate PCV 13093Pneumococcal Polysaccharide HKHF2263,06/27/2017Tdap07/23/2020 Family History Medical HistoryRelationNameCommentsDiabetesBrotherCancerDaughterHeart disease FatherHypertensionFatherArthritisMotherDiabetesMotherStrokeMotherHypertension SisterRelationNameStatusCommentsBrotherDaughterFatherDeceasedMotherDeceased Sister Social History Tobacco UseTypesPacks/DayYears UsedDateSmoking Tobacco: NeverSmokeless Tobacco: Never Tobacco Cessation:Counseling Given: Not Answered Alcohol UseStandard Drinks/WeekCommentsYes0 (1 standard drink = 0.6 oz pure alcohol)1-2 drinks less than monthly in the past year, Caffeine intake: 2-3 cups per dayPHQ-2AnswerDate RecordedPatient Health Questionnaire-2 Zxhrq907 CommentsNoSex and Gender InformationValueDate RecordedSex Assigned at BirthNot on fileLegal BkcYxxzxn39/15/2023 6:35 PM EDTGender IdentityNot on file Sexual OrientationNot on file Last Filed Vital Signs Vital SignReadingTime TakenCommentsBlood Jomzevrv281/7010 3:18 PM EDT Jglsq134104/28/2025 3:18 PM CLHLedwiocxqwe15 ??C (98.6 ??F)04/28/2025 3:18 PM EDT Respiratory Ynas341710/27/2024 4:00 PM EDTOxygen Giesreakpj97%04/28/2025 3:18 PM EDTInhaled Oxygen Concentration--Ibrxbo60.8 kg (123 lb)04/28/2025 3:18 PM EDT Qsfpso803.3 cm (4' 10 )04/28/2025 3:18 PM EDTBody Mass Index25.7104/28/2025 3:18 PM EDT Plan of Treatment DateTypeDepartmentCare Team (Latest Contact Info)Zyilwbzwsxx28/04/2025 3:45 PM ESTProcedure Visit [facility] [address] [place] [address] Bennett Valentino DPDuncan [address] [place] [address] Health MaintenanceDue DateLast DoneCommentsDTaP/Tdap/Td Vaccines (2 - Td or Tdap)/1Diabetes: Retinopathy Mmnhfbgrr42/, 09/03/2020, 01/05/2020Diabetes: Urine Protein Twkbabjhv26/04/017823/10/2023, 08/15/2023, 08/14/2023 (Manually Satisfied by [employer])COVID-19 Vaccine ( season)2025Diabetes: Hemoglobin A1C61, 01/13/2025, 08/21/2024, Additional history existsMedicare Annual Wellness (AWV) , 10/18/2023, 11/27/2022, Additional history exists Colorectal Cancer ScreeningDiscontinuedFIT-BOFIsclkxxhbgwt33/05/2021, 07/20/2020 Pneumococcal Vaccine: 65+ FfxkkZgsutbxym98/12/2023, 09/28/2020, 06/27/2017 Influenza XhippswPpwvmslip23/14/2025, 04/24/2024, 03/27/2023, Additional history existsCT ColonographyDiscontinuedColonoscopyDiscontinuedFITDiscontinuedFOBT DiscontinuedHIB VaccinesAged OutNo longer eligible based on patient's age to complete this topicHPV VaccinesAged OutNo longer eligible based on patient's age to complete this topicHepatitis A VaccinesAged OutNo longer eligible based on patient's age to complete this topicHepatitis B VaccinesAged OutNo longer eligible based on patient's age to complete this topicIPV VaccinesAged OutNo longer eligible based on patient's age to complete this topicMeningococcal B VaccineAged OutNo longer eligible based on patient's age to complete this topic Meningococcal VaccineAged OutNo longer eligible based on patient's age to complete this topicRotavirus VaccinesAged OutNo longer eligible based on patient's age to complete this topicSigmoidoscopyDiscontinued Procedures Procedure NamePriorityDate/TimeAssociated DiagnosisCommentsPOCT GLYCATED HEMOGLOBIN, LMAQIZtiwfxp55/14/2025 3:43 PM EDT Controlled type 2 diabetes mellitus with diabetic polyneuropathy, 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 (HCC) MM TOMOSYNTHESIS DIAGNOSTIC RT04/21/2025 12:08 PM EDT BI MAMMOGRAM SCREENING TOMOSYNTHESIS QYCPPRNMERvprezy54/17/2025 11:01 AM EDT BI MAMMOGRAM SCREENING LCDGIFYEB09/11/2025 3:55 PM EDT URINE CULTURE - ZQNMMibtlqq45/20/2025 8:15 PM EDT MICROALBUMIN / CREATININE URINE TPERHKiietmh22/04/2024 12:00 AM EDT Controlled type 2 diabetes mellitus with diabetic polyneuropathy, 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 (HCC) COLOR FUNDUS PHOTOGRAPHY - OU - BOTH XNMERysqrdd83/27/2022 12:00 PM EDT Type 2 diabetes mellitus with diabetic polyneuropathy (HCC) LAB COLOGUARD?? COLON CANCER AEXZBEAuzdtjl12/05/2021 from Last 3 Months or Most Recently Relevant to Health Maintenance Results * POCT glycated hemoglobin, total docked device (04/28/2025 3:43 PM EDT) ComponentValueRef RangeTest MethodAnalysis TimePerformed AtPathologist SignatureHemoglobin A1C5.0Specimen (Source)Anatomical Location / Laterality Collection Method / VolumeCollection TimeReceived UdrqVwosd58/14/2025 3:43 PM EDT Narrative Authorizing ProviderResult TypeResult StatusAisha Ragland PAPOINT OF CARE TEST ENTER/EDIT ORDERABLESFinal Result * MM TOMOSYNTHESIS DIAGNOSTIC RT (04/21/2025 12:08 PM EDT)Anatomical Region LateralityModalityOtherSpecimen (Source)Anatomical Location / Laterality Collection Method / VolumeCollection TimeReceived Time04/21/2025 12:08 PM EDT Narrative 04/21/2025 12:08 PM EDT [facility] ?[address] ? [place] [address] ? Mammography Report ? Signed ? Patient: PHENICIE,NATA A ?MR#: [id number] ?? : 1945 ?Acct:[id number] ?? Age/Sex: 80 / F ?ADM Date: 04/21/25 ?? Loc: MAMMO ? Attending Dr: AISHA RAGLAND ? Ordering Physician: AISHA RAGLAND ? Results: ? Date of Service: 04/21/25 ?Follow Up: ? Procedure(s): MM tomosynthesis diagnostic RT ?? Accession Number(s): [id number] ? cc: AISHA RAGLAND ? Patient Name: ? NATA PHENICIE ? MR#: [id number] ? : 1945 ? Exam Date: 04/21/2025 ?? Ordering Doctor: AISHA RAGLAND ? RADIOLOGY REPORT ? PROCEDURE: ? MM TOMOSYNTHESIS DIAGNOSTIC RT ? COMPARISON: ? MM SCREENING MAMMO BI, 03/26/2025. ??MM TOMOSYNTHESIS SCREENING ?? BI, 05/10/2023. ??MG MAMM SCREEN 3D LISA CAD, 02/23/2022. ??MG MAMM SCREEN 3D LISA ?? CAD, 11/04/2020. ? INDICATIONS: ? Abnormal Mammogram Right Breast ? Calculator Name ? NCI Breast Cancer Risk Assessment Tool ?? 5 Year Breast Cancer Risk ? 1.50% ?? Lifetime Breast Cancer Risk ? 2.80% ?? Personal Breast Cancer ?No ?? Personal Ovarian Cancer ? No ?? Treatments ? None ?? Family Cancers ? Aunt-paternal with breast cancer at age ??70. ? LOCATION: ? [facility] ? BREAST COMPOSITION: ? There are scattered areas of fibroglandular density. ? FINDINGS: ? DIAGNOSTIC CATEGORY 1--NEGATIVE. ? LEFT BREAST: ??Previously identified focal asymmetry compresses out on the spot ?? compression view suggests overlapping stroma. ??No abnormality is seen on the ?? true lateral view. ? RECOMMENDATIONS: ? ROUTINE MAMMOGRAM AND CLINICAL EVALUATION IN 12 MONTHS. ? Dictated by: Dedrick Arroyo DO on 04/21/2025 at 12:06 ? Approved by: Dedrick Arroyo DO on 04/21/2025 at 12:08 ? Dictated By: ?Dedrick Arroyo M.D. ? Signed By: ?04/21/25 1208 ? DD/ 1208 ? TD/TT: ? Allergy Specialist: Procedure Note Radiology, Radiologist, MD - 04/21/2025 [place] [address] Mammography Report Signed Patient: NATA PETE AMR#: [id number] : 1945cct:[id number] Age/Sex: 80 / FADM Date: 04/21/25 Loc: MAMMO Attending Dr: AISHA RAGLAND Ordering Physician: Monico RAGLANDults: Date of Service: 04/21/25Follow Up: Procedure(s): MM tomosynthesis diagnostic RT Accession Number(s): [id number] cc: AISHA RAGLAND Patient Name: NATA PETE MR#: [id number] : 1945 Exam Date: 04/21/2025 Ordering Doctor: AISHA RAGLAND RADIOLOGY REPORT PROCEDURE: MM TOMOSYNTHESIS DIAGNOSTIC RT COMPARISON: MM SCREENING MAMMO BI, 03/26/2025. MM TOMOSYNTHESISSCREENING BI, 05/10/2023. MG MAMM SCREEN 3D LISA CAD, 02/23/2022. MG MAMM SCREEN 3DBIL CAD, 11/04/2020. INDICATIONS: Abnormal Mammogram Right Breast Calculator Name NCI Breast Cancer Risk Assessment Tool 5 Year Breast Cancer Risk 1.50% Lifetime Breast Cancer Risk 2.80% Personal Breast Cancer No Personal Ovarian Cancer No Treatments None Family Cancers Aunt-paternal with breast cancer at age 70. LOCATION: [facility] BREAST COMPOSITION: There are scattered areas of fibroglandulardensity. FINDINGS: DIAGNOSTIC CATEGORY 1--NEGATIVE. LEFT BREAST: Previously identified focal asymmetry compresses out on thespot compression view suggests overlapping stroma. No abnormality is seen onthe true lateral view. RECOMMENDATIONS: ROUTINE MAMMOGRAM AND CLINICAL EVALUATION IN 12 MONTHS. Dictated by: Dedrick Arroyo DO on 04/21/2025 at 12:06 Approved by: Dedrick Arroyo DO on 04/21/2025 at 12:08 Dictated By: Dedrick Arroyo M.D. Signed By:04/21/25 1208 DD/ 1208 TD/TT: Allergy Specialist: Authorizing ProviderResult TypeResult StatusAisha Ragland PACLINISYNC IMAGINGFinal Result * (ABNORMAL) Bilateral screening mammogram with tomosynthesis (04/01/2025 11:01 AM EDT)Anatomical RegionLateralityModalityBreastBilateralMammography Narrative Authorizing ProviderResult TypeResult StatusAisha Ragland PAIMG BI PROCEDURESFinal Result * Bilateral screening mammogram (03/26/2025 3:55 PM EDT)Anatomical Region LateralityModalityBreastBilateralMammographySpecimen (Source)Anatomical Location / LateralityCollection Method / VolumeCollection TimeReceived Time 03/26/2025 3:55 PM EDT Narrative 03/26/2025 3:56 PM EDT [facility] ?[address] ? [place] [address] ? Mammography Report ? Signed ? Patient: PHENICIE,NATA A ?MR#: [id number] ?? : 1945 ?Acct:[id number] ?? Age/Sex: 79 / F ?ADM Date: 03/26/25 ?? Loc: MAMMO ? Attending Dr: AISHA RAGLAND ? Ordering Physician: AISHA RAGLAND ? Results: ? Date of Service: 03/26/25 ?Follow Up: ? Procedure(s): MM screening mammo BI ?? Accession Number(s): [id number] ? cc: OBIE,AISHA ? Patient Name: ? NATA PHENICIE ? MR#: [id number] ? : 1945 ? Exam Date: 03/26/2025 ?? Ordering Doctor: MRS. AISHA RAGLAND ? RADIOLOGY REPORT ? PROCEDURE: ? MM SCREENING MAMMO BI ? COMPARISON: ? MM TOMOSYNTHESIS SCREENING BI, 05/10/2023. ??MG MAMM SCREEN 3D ?? LISA CAD, 02/23/2022. ??MG MAMM SCREEN 3D LISA CAD, 11/04/2020. ??MG MAMM LISA SCRN W ?? CAD DIG, 03/12/2014. ? INDICATIONS: ? Screening ? Calculator Name ? NCI Breast Cancer Risk Assessment Tool ?? 5 Year Breast Cancer Risk ? 1.60% ?? Lifetime Breast Cancer Risk ? 3.00% ?? Personal Breast Cancer ?No ?? Personal Ovarian Cancer ? No ?? Treatments ? None ?? Family Cancers ? Aunt-paternal with breast cancer at age ??70. ? LOCATION: ? [facility] ? BREAST COMPOSITION: ? There are scattered areas of fibroglandular density. ? FINDINGS: ? DIAGNOSTIC CATEGORY 0--INCOMPLETE: NEED ADDITIONAL IMAGING EVALUATION. ? RIGHT BREAST: ??Focal asymmetry retroareolar region of the right breast. ? LEFT BREAST: ??No significant suspicious finding. ? RECOMMENDATIONS: ? ADDITIONAL MAMMOGRAPHIC VIEWS REQUIRED: RIGHT BREAST - spot-compression/true ?? lateral views, possible ultrasound recommended. ? Dictated by: Dedrick Arroyo DO on 03/26/2025 at 15:54 ? Approved by: Dedrick Arroyo DO on 03/26/2025 at 15:55 ? Dictated By: ?Dedrick Arroyo M.D. ? Signed By: ?03/26/25 1556 ? DD/ 1555 ? TD/TT: ? Allergy Specialist: Procedure Note Radiology, Radiologist, MD - 03/26/2025 [place] [address] Mammography Report Signed Patient: NATA PETE AMR#: [id number] : 7Acct:[id number] Age/Sex: 79 / FADM Date: 03/26/25 Loc: MAMMO Attending Dr: AISHA RAGLAND Ordering Physician: Monico RAGLANDults: Date of Service: 03/26/25Follow Up: Procedure(s): MM screening mammo BI Accession Number(s): [id number] cc: AISHA RAGLAND Patient Name: NATA PETE MR#: [id number] : 1945 Exam Date: 03/26/2025 Ordering Doctor: MRS. AISHA RAGLAND RADIOLOGY REPORT PROCEDURE: MM SCREENING MAMMO BI COMPARISON: MM TOMOSYNTHESIS SCREENING BI, 05/10/2023. MG MAMM GWYLKW8J LISA CAD, 02/23/2022. MG MAMM SCREEN 3D LISA CAD, 11/04/2020. MG MAMM BILSCRN W CAD DIG, 03/12/2014. INDICATIONS: Screening Calculator Name NCI Breast Cancer Risk Assessment Tool 5 Year Breast Cancer Risk 1.60% Lifetime Breast Cancer Risk 3.00% Personal Breast Cancer No Personal Ovarian Cancer No Treatments None Family Cancers Aunt-paternal with breast cancer at age 70. LOCATION: [facility] BREAST COMPOSITION: There are scattered areas of fibroglandulardensity. FINDINGS: DIAGNOSTIC CATEGORY 0--INCOMPLETE: NEED ADDITIONAL IMAGING EVALUATION. RIGHT BREAST: Focal asymmetry retroareolar region of the right breast. LEFT BREAST: No significant suspicious finding. RECOMMENDATIONS: ADDITIONAL MAMMOGRAPHIC VIEWS REQUIRED: RIGHT BREAST -spot-compression/true lateral views, possible ultrasound recommended. Dictated by: Dedrick Arroyo DO on 03/26/2025 at 15:54 Approved by: eDdrick Arroyo DO on 03/26/2025 at 15:55 Dictated By: Dedrick Arroyo M.D. Signed By:03/26/25 1556 DD/ 54 TD/TT: Allergy Specialist: Authorizing ProviderResult TypeResult StatusDeborah J Obie PAIMG BI PROCEDURESFinal Result * (ABNORMAL) URINE CULTURE - [facility] (03/04/2025 8:15 PM EDT)ComponentValueRef RangeTest MethodAnalysis TimePerformed AtPathologist SignatureURINE CULTURE - [facility] ??Urine Culture - [facility] Testing performed at [facility] TBHURINE CULTURE - [address] [place], [place] [address]ESGSTQMP CULTURE - [facility] ??O:ESCCOL Isolated TBHURINE CULTURE - [facility] ??Urine Culture - [facility] [place] Count TBHURINE CULTURE - [facility]>100,000CFU/mlTBHURINE CULTURE - [facility] Organism: ??1.1 Antibiotic ? Interpretation ? MI ? Status TBHURINE CULTURE - FRMCAmikacin S F(S)TBHURINE CULTURE - [facility] Amoxicillin/Clavulanate S F(S)TBHURINE CULTURE - FRMCAmpicillin R F(R)TBHURINE CULTURE - FRMCAztreonam S F(S)TBHURINE CULTURE - FRMCCeftazidime S F(S)TBHURINE CULTURE - FRMCCeftazidime/Avibactam S F(S)TBHURINE CULTURE - [facility] Ceftolozane/Tazobactam S F(S)TBHURINE CULTURE - FRMCCiprofloxacin S F(S)TBH URINE CULTURE - FRMCErtapenem S F(S)TBHURINE CULTURE - FRMCGentamicin S F(S)TBH URINE CULTURE - FRMCLevofloxacin S F(S)TBHURINE CULTURE - FRMCMeropenem S F(S) TBHURINE CULTURE - FRMCMeropenem/Vaborbactam S F(S)TBHURINE CULTURE - [facility] Nitrofurantoin S F(S)TBHURINE CULTURE - FRMCTetracycline S F(S)TBHURINE CULTURE - FRMCTigecycline S F(S)TBHURINE CULTURE - FRMCTobramycin S F(S)TBHURINE CULTURE - FRMCAmpicillin/Sulbactam S F(S)TBHURINE CULTURE - FRMCCefazolin S F(S) TBHURINE CULTURE - FRMCCefepime S F(S)TBHURINE CULTURE - FRMCCeftriaxone S F(S) TBHURINE CULTURE - FRMCCefuroxime S F(S)TBHURINE CULTURE - [facility] Piperacillin/Tazobactam S F(S)TBHURINE CULTURE - FRMCTrimethoprim/Sulfa S F(S) TBHSpecimen (Source)Anatomical Location / LateralityCollection Method / Volume Collection TimeReceived Time03/04/2025 8:15 PM EDT03/04/2025 8:28 PM EDT Narrative [facility] - 03/07/2025 6:37 PM EDT Authorizing ProviderResult TypeResult StatusGeneric External Data ProviderLAB BLOOD ORDERABLESFinal ResultPerforming OrganizationAddressCity/State/ZIP Code Phone Number [facility] * Microalbumin / creatinine urine ratio (10/18/2023 12:00 AM EDT)ComponentValue Ref RangeTest MethodAnalysis TimePerformed AtPathologist SignatureCREATININE, RANDOM [id number] - 275 mg/dLQUESTALBUMIN, URINE1.2See Note: mg/dLQUESTComment: Reference Range: Reference Range Not established ALBUMIN/CREATININE RATIO, RANDOM URINE12<30 mg/g creatQUESTComment: The ADA defines abnormalities in albumin excretion as follows: Albuminuria Category ?Result (mg/g creatinine) Normal to Mildly increased <30 Moderately increased ? 30-299 Severely increased > OR = 300 The ADA recommends that at least two of three specimens collected within a 3-6 month period be abnormal before considering a patient to be within a diagnostic category. Specimen (Source)Anatomical Location / LateralityCollection Method / Volume Collection TimeReceived TimeUrineUrine specimen obtained by clean catch procedure / Qufgsnv08/12/2023 5:13 AM EDT Narrative Resulting Agency Comment Performing Organization Information ?Site ID: [id number] ?Name: [employer] [facility] ?Address: [address] [place] [address], [address] [place] [phone] ?Director: Willie Rodriguez MD Authorizing ProviderResult TypeResult StatusDecristel ROSALES URINE ORDERABLESFinal ResultPerforming OrganizationAddressCity/State/ZIP CodePhone Number [facility] * Color Fundus Photography - OU - Both Eyes (12/09/2021 12:00 PM EDT)Anatomical RegionLateralityModalityHeadFundus PhotographySpecimen (Source)Anatomical Location / LateralityCollection Method / VolumeCollection TimeReceived Time 12/09/2021 12:00 PM EDT Narrative 12/09/2021 12:00 PM EDT PERFORMED AT [facility] LOCATION:[id number] see report Procedure Note CONVERSION, GENERIC - 11/29/2022 PERFORMED AT [facility] LOCATION:[id number] see report Authorizing ProviderResult TypeResult Brielle Hannah MDOPH PHOTOGRAPHY Final Result * Cologuard?? colon cancer screening (07/20/2020)ComponentValueRef RangeTest MethodAnalysis TimePerformed AtPathologist SignatureCOLOGUARD RESULT REPORTABLENegativeNot ApplicableNOMS LEGACY EXTERNAL LABComment: A negative result indicates a low likelihood [...] with both Cologuard and colonoscopy. (Luis Fernando Cisneros al, N Engl J Med 2014;370(14):1287-9274) The normal value (reference range) for this assay is negative. COLOGUARD RE-SCREENING RECOMMENDATION: Periodic routine colorectal cancer screening is an important part of preventive healthcare for asymptomatic persons at average risk for colorectal cancer. Following a negative Cologuard result, the [place] [employer] and U.S. Multi-Society Task Force screening guidelines recommend a Cologuard re-screening interval of 3 years. References: [employer] [employer] (ACS). Colorectal cancer prevention and early detection. [place], [place]: [place] [employer]; [updated 2016 Nov 06]. https://www.cancer.org/cancer/ipwtx-vdhqme-eqavnk/detection-diagnosis -staging/acs-recommendations.html. Accessed March 15, 2018; Andres DK, Elenita CR, Jerrica JeffersonK, Colorectal Cancer Screening: Recommendations for Physicians and Patients from the U.S. Multi-Society Task Force on Colorectal Cancer Screening, Am J Gastroenterology 2017; 112:4039-2661. TEST TYPE: Composite algorithmic analysis of stool DNA-biomarkers with hemoglobin immunoassay. ??Quantitative values of individual biomarkers are not reportable and are not associated with individualbiomarker result reference ranges. PRECAUTIONS AND LIMITATIONS: Cologuard is intended for colorectal cancer screening of adults of either sex, 45 years or older, who are at average-risk for colorectal cancer (CRC). Cologuard has been approved for use by the [place] FDA. Cologuard may produce a false negative or false positive result. Anegative Cologuard test result does not guarantee the absence of CRC or advanced adenoma (pre-cancer). Patients with a negative Cologuard test result should be advised to continue participating in a colorectal cancer screening program. The screening interval for Cologuard is currently recommended at an interval of every 3 years by the [place] [employer] and U.S. Multi-Society Task Force. A false positive result occurs when Cologuard produces a positive result, even though a colonoscopy maynot find colorectal cancer or precancerous polyps. The [...] can be accessed at the following location: [email or web address]. Additional description of the Cologuard test process, warnings and precautions can be found at [email or web address]. Rx only. Specimen (Source)Anatomical Location / LateralityCollection Method / Volume Collection TimeReceived Time07/20/2020 Narrative Authorizing ProviderResult TypeResult StatusZuri [facility] ORDERABLESFinal ResultPerforming OrganizationAddressCity/State/ZIP CodePhone Number [facility] from Last 3 Months or Most Recently Relevant to Health Maintenance Insurance Care Teams Team MemberRelationshipSpecialtyStart DateEnd Zuri Hannah MD [address] [place] [id number] PCP - [facility]07/16/20 Zuri Hannah MD [address] [place] [address] PCP - [facility]09/17/23
[2025-05-16 11:35] LABS: Hematocrit 35.5 % (36.0-48.0); Hemoglobin 11.4 g/dL (12.0-16.0); Immature Granulocytes Abs Auto 0.01 10^3/uL (0.00-0.03); Immature Granulocytes Pct Auto 0.3 % (0.0-0.5); Lymphocytes Absolute Auto 0.6 10^3/uL (1.2-3.8); Mean Corpuscular HGB Conc 32.1 g/dL (29.9-35.2); Mean Corpuscular Hemoglobin 29.2 pg (26.7-34.0); Mean Corpuscular Volume 91.0 fL (81.0-99.0); Platelet Count 192 10^3/uL (150-450); Red Blood Count 3.90 10^6/uL (4.20-5.40); White Blood Count 2.9 10^3/uL (4.0-11.0)
[2025-05-16 12:07] LABS: Alanine Aminotransferase 21 U/L (14-59); Albumin Globulin Ratio 1.6; Albumin Level 3.6 g/dL (3.4-5.0); Alkaline Phosphatase 63 U/L (46-116); Anion Gap 7.5; Aspartate Amino Transferase 16 U/L (15-37); Blood Urea Nitrogen 22.0 mg/dL (7.0-18.0); Calcium 8.8 mg/dL (8.5-10.1); Carbon Dioxide 28.6 mmol/L (21.0-32.0); Chloride 99 mmol/L (98-107); Cholesterol 167 mg/dL (<=200); Estimated GFR (African America >60 (>=60 mL/min/1.73m^2); Estimated GFR (Non-African Ame >60 (>=60 mL/min/1.73m^2); Globulin 2.3 g/dL; Glucose 84 mg/dL (74-106); HDL Cholesterol 67 mg/dL (40-60); Potassium 4.1 mmol/L (3.5-5.1); Sodium 131 mmol/L (136-145); TSH W/ REFLEX FT4 2.068 uIU/mL (0.358-3.740); Total Protein 5.9 g/dL (6.4-8.2); Triglycerides 63 mg/dL (<=150); VLDL CHOLESTEROL 12.6 mg/dL
== END 2025-05-16 11:12 | disposition home or self-care (01) ==
LOC: LAB 11:12
PROVIDERS: PCP Physician Assistant; Visit Provider Physician Assistant
DX: E11.42 Type 2 diabetes mellitus with diabetic polyneuropathy (principal); I10 Essential (primary) hypertension
CPT/HCPCS: 36415; 80053; 80061; 84443; 85025